=== PATIENT | male | born 1940 | race Caucasian/White ===

== ENCOUNTER 2024-03-14 16:33 | Outpatient (OUT) | payer MEDICARE, OTHER, SELFPAY ==
[2024-03-14 17:23] LABS: Anion Gap 12.3; BUN Creatinine Ratio 18.1; Calcium 8.7 mg/dL (8.5-10.1); Carbon Dioxide 30.3 mmol/L (21.0-32.0); Chloride 106 mmol/L (98-107); Estimated GFR (African America 52 (>=60); Estimated GFR (Non-African Ame 43 (>=60); Glucose 116 mg/dL (74-106); Potassium 4.6 mmol/L (3.5-5.1); Sodium 144 mmol/L (136-145)
== END 2024-03-14 16:34 | disposition home or self-care (01) ==
PROVIDERS: PCP Family Medicine; Visit Provider Family Medicine
DX: I50.9 Heart failure, unspecified (principal)
CPT/HCPCS: 36415; 80048

== ENCOUNTER 2024-04-13 14:31 | Outpatient (OUT) | payer MEDICARE, OTHER, SELFPAY ==
[2024-04-13 16:13] LABS: Anion Gap 10.4; BUN Creatinine Ratio 20.6; Calcium 9.2 mg/dL (8.5-10.1); Carbon Dioxide 31.9 mmol/L (21.0-32.0); Chloride 105 mmol/L (98-107); Estimated GFR (African America 52 (>=60); Estimated GFR (Non-African Ame 43 (>=60); Glucose 129 mg/dL (74-106); Potassium 4.3 mmol/L (3.5-5.1); Sodium 143 mmol/L (136-145)
== END 2024-04-13 14:32 | disposition home or self-care (01) ==
PROVIDERS: PCP Family Medicine; Visit Provider Nurse Practitioner
DX: I25.5 Ischemic cardiomyopathy (principal)
CPT/HCPCS: 36415; 80048

== ENCOUNTER 2024-04-25 15:25 | Outpatient (OUT) | payer MEDICARE, OTHER, SELFPAY ==
[2024-04-25 17:37] LABS: Prostate Specific Antigen Dx 1.49 ng/mL (<=4.00)
== END 2024-04-25 15:26 | disposition home or self-care (01) ==
LOC: LAB 15:26
PROVIDERS: PCP Family Medicine; Visit Provider Nurse Practitioner Family
DX: R10.9 Unspecified abdominal pain (principal); Z85.46 Personal history of malignant neoplasm of prostate; Z87.442 Personal history of urinary calculi
CPT/HCPCS: 36415; 84153

== ENCOUNTER 2024-05-03 09:32 | Outpatient (OUT) | payer MEDICARE, OTHER, SELFPAY ==
--- NOTE | 2024-05-03 09:36 | US_ITS ---
The [place] [id number] Patient Name: YOANA IBRAHIM MRN: [id number] date: 1940 Sex: M Assigned Patient Location: US Current Patient Location: US Accession/Order Number: [id number] Exam Date: 05/03/2024 09:40 Report Date: 05/04/2024 06:33 At the request of: ASHLEY MENDEZ Procedure: US renal BI EXAMINATION: US renal BI HISTORY: Flank Pain , History Of Kidney Stone COMPARISON: XR abdomen 05/03/2024 TECHNIQUE: Ultrasound examination was performed of the kidneys and urinary bladder. FINDINGS: RIGHT KIDNEY: Inferior pole 1.3 cm cyst. Mild cortical thinning. No evidence of pelvocaliectasis, mass, or calculi. Normal parenchymal echogenicity. Color Doppler demonstrates blood flow within the kidney. Kidney: 10.7 x 5.1 x 6.3 cm LEFT KIDNEY: Inferior pole 1.0 cm cyst. Nonobstructing 3 mm stone. Mild cortical thinning. Normal parenchymal echogenicity. Color Doppler demonstrates blood flow within the kidney. Kidney: 10.4 x 4.4 x 4.6 cm BLADDER: No visible wall thickening, mass, or calculi. Calcifications noted within prostate. US/US renal BI IMPRESSION: 1. Nonobstructing left nephrolithiasis. 2. Mild renal cortical thinning bilaterally; likely age related. Electronically authenticated by: FABIANO ANDRES Date: 05/04/2024 06:33
--- NOTE | 2024-05-03 09:36 | XR_ITS ---
The [address] [address] Patient Name: YOANA IBRAHIM MRN: [id number] date: 1940 Sex: M Assigned Patient Location: US Current Patient Location: Accession/Order Number: [id number] Exam Date: 05/03/2024 09:46 Report Date: 05/04/2024 06:22 At the request of: ASHLEY MENDEZ Procedure: XR abdomen 1V EXAMINATION: XR abdomen 1V HISTORY: Flank Pain COMPARISON: XR abdomen and chest 09/14/2016 FINDINGS: KIDNEY/URETER - RIGHT: No visible renal or ureteral calcifications. KIDNEY/URETER - LEFT: No visible renal or ureteral calcifications. PELVIS: 4 mm calcification at inferior margin of right sacroiliac joint which may represent a distal ureteral stone. BOWEL: No abnormal dilation or deviation. BONES: No acute abnormality. OTHER: Right sacral neurostimulator. XR/XR abdomen 1V IMPRESSION: 1. Possible distal right ureteral stone; new since 2016. 2. No appreciable stones within the kidneys but evaluation is limited by dense overlying bowel content. Electronically authenticated by: FABIANO ANDRES Date: 05/04/2024 06:22
--- OUTSIDE RECORDS SUMMARY | 2024-05-03 09:45 | XMS_ITS | CCD ---
Author Organization [facility] Care Team Providers Care Title Clerk Name Role Phone FABIANO WILL Unavailable Unavailable BRISTOL, SHANIQUE E Unavailable Unavailable [place], Shanique E Primary Care Provider [phone] RAÚL QUINTERO Referring Unavailable BRISTOL, SHANIQUE E Primary Care Unavailable RAÚL QUINTERO Admitting Unavailable RAÚL QUINTERO Attending Unavailable Ryder Pollack Unavailable Glenda Guillen Unavailable Abdon Jackman Unavailable Osvaldo Maciel Unavailable Alexei Van Unavailable JUSTIN, DR BAY Primary Care Unavailable VIKY ROLLINS Attending Unavailable VIKY ROLLINS Admitting Unavailable ALEXEI VAN Consulting Unavailable MISC, DR BETTS Attending Unavailable MISC, DR BETTS Admitting Unavailable JUSTIN, DR BAY Primary Care Unavailable ALEXEI VAN Attending Unavailable ALEXEI VAN Consulting Unavailable ALEXEI VAN Admitting Unavailable JUSTIN, DR BAY Primary Care Unavailable ALBIN BABIN Attending Unavailable ALBIN BABIN Admitting Unavailable JUSTIN, DR BAY Primary Care Unavailable JUSTIN, DR BAY Primary Care Unavailable VIKY ROLLINS Attending Unavailable VIKY ROLLINS Admitting Unavailable ALBIN BABIN Admitting Unavailable JUSTIN, DR BAY Primary Care Unavailable ALBIN BABIN Attending Unavailable DO Shanique Schwab Primary Care Provider DO Shanique Schwab Attending Provider Shanique Schwab DO Primary Care Prov ider DO Shanique Schwab Primary Care Provider MD Rosemary Cartagena Attending Provider [phone] OSIEL ROSEMARY Referring Unavailable BRISTOL, SHANIQUE SHRADDHA TERESO Primary Care Unav ailable [place], DO Shanique Primary Care Provider MD Rosemary Cartagena Attending Provider ROBERT Rollins Attending Provider [phone] MARISEL Heart Other Provider VIKY ROLLINS Attending Unavailable VIKY ROLLINS Attending Unavailable [place], DO Shanique Primary Care Provider MD Rosemary Cartagena Attending Provider Sarah Cartagenaa Attending Unavailable Cartagena, Rosemary Admitting Unavailable [place], [place] Primary Care Unavailable Saarh Cartagenaa Attending Unavailable [place], [place] Primary Care Unavailable Cartagena, Rosemary Admitting Unavailable Sarah Cartagenaa Attending Unavailable [place], Shanique Primary Care Unavailable Osiel, Rosemary Admitting Unavailable Sarah Cartagenaa Attending Unavailable [place], [place] Primary Care Unavailable Cartagena, Rosemary Admitting Unavailable Mayank Rollinsa Admitting Unavailable Viky Rollins Attending Unavailable Sly Hosea K Consulting Unavailable [place], [place] Primary Care Unavailable SARAH CARTAGENAA Attending Unavailable BRISTOL, SHANIQUE SHRADDHA TERESO Primary Care Unav ailable SARAH CARTAGENAA Attending Unavailable CARTAGENA, ROSEMARY Referring Unavailable BRISTOL, SHANIQUE SHRADDHA TERESO Primary Care Unav ailable HEART, HOSEA K Attending Unavailable CARTAGENA, ROSEMARY Referring Unavailable BRISTOL, SHANIQUE SHRADDHA TERESO Primary Care Unav ailable HEART, HOSEA K Attending Unavailable HEART, HOSEA K Referring Unavailable BRISTOL, SHANIQUE SHRADDHA TERESO Primary Care Unav ailable HEART, HOSEA K Attending Unavailable HEART, HOSEA K Referring Unavailable BRISTOL, SHANIQUE SHRADDHA TERESO Primary Care Unav ailable SARAH CARTAGENAA Attending Unavailable CARTAGENA, ROSEMARY Referring Unavailable BRISTOL, SHANIQUE SHRADDHA TERESO Primary Care Unav ailable BRISTOL, SHANIQUE Primary Care Physician [phone] ROBERT TANNER Attending Unavailab Anabel Dunaway Attending Unavailable Unavailable Unavailable Unavailable Allergies Allergy Classification Reported Allergen(s) Allergy Type Date of Onset Reaction(s) Facility canagliflozin (2 sources) canagliflozin Drug Allergy 04-01-20 23 Unknown Reaction [facility] exenatide (2 sources) exenatide Drug Allergy 04-01-20 23 Unknown Reaction [facility] fexofenadine (2 sources) fexofenadine Drug Allergy 04-01-20 23 Hives [facility] liraglutide (2 sources) liraglutide Drug Allergy 04-01-20 23 Unknown Reaction [facility] NSAIDs (2 sources) Ibuprofen Drug Allergy 04-01-20 23 Unknown Reaction [facility] Opioid Agonists (6 sources) Codeine Drug Allergy 08-28-20 21 Hallucinating, Sweat [facility] rOPINIRole (2 sources) rOPINIRole Drug Allergy 04-01-20 23 Unknown Reaction [facility] SITagliptin (2 sources) SITagliptin Drug Allergy 04-01-20 23 Unknown Reaction [facility] (1 source) Acetaminophen / oxyCODONE Drug Allergy 07-27-20 16 Other (See Comments) [place] (16 sources) Codeine; Translations: [CODEINE] Drug Allergy 02-04-20 12 Other (See Comments), Unknown, Unknown (qualifier value) [place] (20 sources) exenatide; Translations: [EXENATIDE] Drug Allergy 04-08-20 16 Unknown, Unknown (qualifier value) [place] (7 sources) fexofenadine; Translations: [fexofenadine] Drug Allergy 02-04-20 12 Itching, Unknown, Unknown (qualifier value) [place] (1 source) fexofenadine Drug Allergy 07-27-20 16 Itching [place] (15 sources) Ibuprofen Drug Allergy 04-04-20 18 Unknown Reaction, Unknown [place] (20 sources) liraglutide; Translations: [LIRAGLUTIDE] Drug Allergy 12-03-19 17 Unknown, Unknown (qualifier value) [place] (3 sources) Meperidine; Translations: [Demerol] Drug Allergy 02-04-20 12 Swelling, Bilateral upper limb edema [place] (6 sources) SITagliptin Drug Allergy 05-06-20 15 Unknown Reaction [place] (1 source) Other Propensity to adverse reactions 05-06-20 15 Itching [facility], [place] (9 sources) fexofenadine; Translations: [FEXOFENADINE] Drug Allergy 08-28-20 Hives [facility] (20 sources) Meperidine; Translations: [meperidine] Drug Allergy 08-28-20 Unknown [facility] (7 sources) Morphine; Translations: [morphine] Drug Allergy 08-28-20 Hallucinating [facility] (20 sources) canagliflozin; Translations: [CANAGLIFLOZIN] Drug Allergy 08-28-20 Unknown [facility] (20 sources) Codeine Drug Allergy Unknown [facility] [place] Other (20 sources) fexofenadine; Translations: [Hermila] Drug Allergy 06-12-20 Unknown [facility] Repository (15 sources) Ibuprofen Drug Allergy Unknown [facility] [place] Other (20 sources) rOPINIRole Drug Allergy Unknown [facility] [place] Other (20 sources) SITagliptin Drug Allergy Unknown [facility] [place] Other (1 source) Codeine Drug Allergy 06-12-20 15 [facility] Rep[facility] (2 sources) exenatide Drug Allergy [facility] (2 sources) liraglutide Drug Allergy [facility] Rep[facility] (1 source) SITagliptin Drug Allergy 08-24-20 15 [facility] Rep[facility] (6 sources) rOPINIRole; Translations: [ropinirole] Drug Allergy 08-28-20 Unknown Reaction [facility] (1 source) canagliflozin Drug Allergy 04-01-20 [facility] Repository (1 source) Codeine Drug Allergy 04-01-20 [facility] Repository (1 source) exenatide Drug Allergy 04-01-20 [facility] Rep[facility] (1 source) Ibuprofen Drug Allergy 04-01-20 [facility] Rep[facility] (1 source) liraglutide Drug Allergy 04-01-20 [facility] Rep[facility] (1 source) SITagliptin Drug Allergy 04-01-20 [facility] Repository (1 source) Fish Oils; Translations: [FISH OIL] Drug Allergy 04-24-20 [facility] Rep[facility] (1 source) canagliflozin; Translations: [canagliflozin] Drug Allergy Unknown (qualifier value) [facility] Medications Current Medications Medication Drug Class(es) Dates Sig (Normalized) Sig (Original) acetaminophen 500 mg oral tablet (20 sources) Start: 09-11-2021 take 500 mg by mouth twice daily Acetaminophen Active 500 MG PO Twice daily 60 September 11, 2021 1:00am Start: 06-12-2019 take 650 mg by mouth every four hours as needed for pain, then take 4000 mg by mouth every twenty-four hours as needed for pain 650 mg, Oral, EVERY 4 HOURS PRN, Pain Mild (1-3), Fever, Fever >100.5 F (38 C), Starting 06/12/19 at 1457 Maximum dose of acetaminophen is 4000 mg from all sources in 24 hours. Recovery(Cath) Start: 03-07-2019 take 325 mg by mouth every six hours Acetaminophen Active 325 MG Oral Q6H March 07, 2019 6:55pm Start: 03-07-2019 End: 09-11-2021 Acetaminophen (Tylenol) 325 mg Capsule Discontinued 500 MG PO Twice daily March 07, 2019 12:00am September 11, 2021 10:18am take 1 capsule by mo ut twice daily as needed Acetaminophen 500 MG 1 capsule as needed Orally twice daily Not-Taking take 1 capsule by mo uth twice daily as needed Acetaminophen 500 MG 1 capsule as needed Orally twice daily Not-Taking take 1 tablet by daly th every eight hours as needed for pain acetaminophen (TYLENOL) 500 MG tablet Take 500 mg by mouth every 8 hours as needed for Pain 0 Active Alpha Lipoic Acid (1 source) Start: 04-25-2024 take 2 tablets by mouth once daily Alpha Lipoic Acid = 2 tab(s), Oral, Daily, Refills(s) 0 Start Date: 04/25/24 Status: Ordered amoxicillin 875 mg / clavulanate 125 mg oral tablet (4 sources) Penicillin-class Antibacterial Start: 07-21-2021 take 1 tablet by mouth every twelve hours Amoxicillin-Pot Clavulanate 875-125 MG 1 tablet Orally every 12 hrs for 10 day(s) Jul, Active amylase 77326 unt / lipase 40622 unt / protease 19110 unt delayed release oral capsule (15 sources) Start: 04-25-2024 take 1 capsule by mouth three times daily Creon 12,000 units oral delayed release capsule = 1 cap(s), Oral, TID, Refills(s) 0 Start Date: 04/25/24 Status: Ordered Start: 03-19-2021 End: 04-03-2024 take 3 capsules by mouth three times daily at mealtime, then take 2 capsules by mouth twice daily Hoiwwr-Mojagkhq-Bioipiq (Creon) 3,000-9,500- 15,000 unit capsule,delayed release(DR/EC) Active 0 PO As Directed April 03, 2024 11:34am 3 capsules with meals three times a day, 2 capsules with snacks twice a day orally as directed; Start: 04-08-2016 take 2 capsules by m outh three times daily at mealtime Creon 36,000-114,000- 180,000 unit capsule,delayed release(DR/EC) capsule Take 2 capsules by mouth 3 times a day with meals. 04/08/2016 Active amylases 44079 unt / endopeptidases 9500 unt / lipase 3000 unt delayed release oral capsule (1 source) Start: 06-12-2019 take 2 capsules by mouth three times daily at mealtime 2 capsule, Oral, 3 TIMES DAILY WITH MEALS, First dose on Wed06/12/19 at 1700 Patient may take home supply. apixaban 5 mg oral tablet (20 sources) Factor Xa Inhibitor Start: 12-09-2018 End: 12-05-2024 take 1 tablet by mouth twice daily apixaban 5 mg oral tablet 5 mg = 1 tab(s), Oral, BID, Refills(s) 0 Start Date: 04/25/24 Status: Ordered take 2 tablets by mouth once cheng ly Eliquis 5 MG as directed Orally 2 tablets once daily Active Biotin (1 source) take 36340 [IU] by mouth twice daily BIOTIN PO Take 10,000 Units by mouth 2 times daily 0 Active calcium carbonate 1250 mg / cholecalciferol 200 unt oral tablet (4 sources) Vitamin D Start: 04-25-2024 take 1 tablet by mouth twice daily calcium (as carbonate)-vitamin D 500 mg-200 intl units oral tablet 1 tab(s), Oral, BID, Refill(s) 0 Start Date: 04/25/24 Status: Ordered Start: 06-12-2019 take 1 tablet by daly twice daily at mealtime 1 tablet, Oral, 2 TIMES DAILY WITH MEALS, First dose on 06/12/19 at 1700 Patient may take home supply. Start: 03-07-2019 take 1 tablet by mouth at [facility] Calcium Carbonate-Vitamin D3 Active 1 TAB Oral With lunch and supper March 07, 2019 6:55pm Calcium Carbonate-Vitamin D3 (Oyster Shell Calcium-Vit D3) 500 mg-5 mcg (200 unit) Tablet (7 sources) Start: 09-11-2021 take 2 tablets by mouth once daily Calcium Carbonate-Vitamin D3 (Oyster Shell Calcium-Vit D3) 500 mg-5 mcg (200 unit) Tablet Active 2 TAB PO Daily 60 September 11, 2021 12:00am Start: 09-11-2021 take 2 tablets by mo mih once daily Calcium Carbonate-Vitamin D3 (Oyster Shell Calcium-Vit D3) 500 mg-5 mcg (200 unit) Tablet Active 2 TAB PO Daily 60 September 11, 2021 1:00am CALCIUM CARBONATE-VITAMIN D3 ORAL (6 sources) take 1 capsule by mouth once daily CALCIUM CARBONATE-VITAMIN D3 ORAL Take 1 capsule by mouth once daily. Active take 1 capsule by mouth once cheng ly CALCIUM CARBONATE-VITAMIN D3 ORAL Take 1 capsule by mouth once daily. 0 Active Calcium-Vitamin D 500-125 MG-UNIT (20 sources) take 2 tablets by mouth once daily Calcium-Vitamin D 500-125 MG-UNIT 2 tablets Orally once daily Active carbidopa 10 mg / levodopa 100 mg disintegrating oral tablet (20 sources) Aromatic Amino Acid Decarboxylation Inhibitor, Aromatic Amino Acid Start: 024 carbidopa-levodopa 10 mg-100 mg oral tablet, disintegrating 1 tab(s), Oral, Refill(s) 0 Start Date: 04/25/24 Status: Ordered Start: 09-02-2021 End: 09-11-2021 take 0.5 tablet by mouth twice daily Carbidopa-Levodopa Active 0.5 TAB PO Twice daily September 11, 2021 1:00am take 0.5 tablet by m outh three times daily carbidopa-levodopa (Sinemet) 10-100 mg tablet Take 0.5 tablets by mouth 3 times a day. Active Carbidopa-Levodo pa 10-100 MG 1/2 tablets Orally morning and night Active carboxymethylcellulose sodiu m 5 mg/ml ophthalmic solution (16 sources) Start: 06-12-2019 1 drop, Both E yes, 3 TIMES DAILY, First dose on Wed06/12/19 at 1515 Patient may take home supply. Start: 03-07-2019 take 1 drop(s) into the eye(s) once daily in the morning Carboxymethylcellulose Sodium Active 2 DROPS Ophthalmic Every morning March 07, 2019 6:55pm both eyes Start: 03-07-2019 take 1 drop(s) into the eye(s) once daily in the morning Carboxymethylcellulose Sodium Active 2 DROPS OPHTHALMIC Every morning March 06, 2019 11:00pm both eyes Start: 03-07-2019 take 1 drop(s) into the eye(s) once daily in the morning Carboxymethylcellulose Sodium Active 2 DROPS OPHTHALMIC Every morning March 07, 2019 12:00am both eyes carboxymethylcel lulose (Refresh Tears) 0.5 % ophthalmic solution Administer 1 drop into both eyes if needed. Active take 1 drop(s) into the eye(s) three times daily carboxymethylcellulose (REFRESH PLUS) 0. 5 % SOLN ophthalmic solution 1 drop 3 times daily 0 Active carvedilol 3.125 mg oral tablet (20 sources) alpha-Adrenergic [place], beta-Adrenergic [place] Start: 11-15-2023 End: 12-05-2024 take 1 tablet by mouth twice daily carvedilol 3.125 mg Tab 3.125 mg = 1 tab(s), Oral, BID, Refills(s) 0 Start Date: 04/25/24 Status: Ordered Start: 02-12-2023 take 1 tablet by daly th twice daily at mealtime carvedilol (Coreg) 3.125 mg tablet Take 1 tablet (3.125 mg) by mouth 2 times a day with meals. 0 02/12/2023 Active Start: 09-11-2021 take 6.25 mg by mout h twice daily at mealtime Carvedilol Active 6.25 MG PO Twice daily with meals 60 September 11, 2021 1:00am Start: 09-04-2021 End: 09-11-2021 take 3.125 mg by mouth twice daily at mealtime Carvedilol Discontinued 3.125 MG PO Twice daily with meals 0 September 04, 2021 1:00am September 11, 2021 10:18am Cholecalciferol (20 sources) Vitamin D Start: 04-25-2024 cholecalcifero l 25 mcg, Chewed, Daily, Refills(s) 0 Start Date: 04/25/24 Status: Ordered Start: 09-11-2021 take 75 ug by mouth once daily Cholecalciferol (Vitamin D3) Active 75 MCG PO Daily with supper September 11, 2021 1:00am Start: 03-07-2019 take 3000 [IU] by [facility] once daily Cholecalciferol (Vitamin D3) Active 3000 UNIT Oral Daily with supper March 07, 2019 6:55pm Start: 03-07-2019 End: 09-11-2021 take 3 tablets by mouth once daily Cholecalciferol (Vitamin D3) (Vitamin D3) 1,000 unit Tablet Discontinued 3000 UNIT PO Daily with supper March 07, 2019 12:00am September 11, 2021 10:18am take 1 tablet by [facility] once daily cholecalciferol (Vitamin D-3) 5,000 Units tablet Take 1 tablet (5,000 Units) by mouth once daily. Active take 3 tablets by [facility] every twenty-four hours Vitamin D3 25 MCG (1000 UT) 3 tablet Orally Once a day Active clopidogrel 75 mg oral tablet (20 sources) [id number] Platelet Inhibitor Start: 05-07-2015 End: 12-05-2024 take 1 tablet by mouth once daily clopidogrel 75 mg Tab 75 mg = 1 tab(s), Oral, Daily, Refills(s) 0 Start Date: 04/25/24 Status: Ordered Creon 68592 UNIT (20 sources) Creon 44385 UNIT 3 WITH MEALS 2 WITH SNACK Orally three times daily for 90 day(s) Active Creon 91187 UNIT 2 WITH MEALS 1 WITH SNACK Orally three times daily for 30 days Active cyproheptadine hydrochloride 4 mg oral tablet (14 sources) Start: 06-12-2019 take 2 mg by mouth once daily 2 mg, Oral, NIGHTLY, First dose on Wed06/12/19 at 2100 Patient may take home supply. Start: 03-07-2019 take 1 mg by mouth o nce daily at bedtime Cyproheptadine Active MG Oral Daily at bedtime March 07, 2019 6:55pm Start: 03-07-2019 End: 08-28-2021 take 2 mg by mouth once daily at bedtime Cyproheptadine Discontinued 2 MG PO Daily at bedtime March 07, 2019 12:00am August 28, 2021 1:50pm Start: 08-09-2015 take 2 mg by mouth o nce daily, then take 1 tablet by mouth cyproheptadine (PERIACTIN) 4 MG tablet Take 2 mg by mouth nightly Takes one half tablet 6 08/09/2015 Active End: 10-25-2023 take 0.5 tablet by mouth once daily cyproheptadine (Periactin) 4 mg tablet Take 0.5 tablets (2 mg) by mouth once daily. 0 10/25/2023 Discontinued (Therapy completed) DAILY MULTI-VITAMIN ORAL (6 sources) take 1 capsule by mo uth once daily DAILY MULTI-VITAMIN ORAL Take 1 capsule by mouth once daily. Active take 1 capsule by mouth once cheng ly DAILY MULTI-VITAMIN ORAL Take 1 capsule by mouth once daily. 0 Active dextroamphetamine sulfate 30 mg oral tablet (20 sources) Central Nervous System Stimulant take 1 tablet by mouth every twelve hours Dextroamphetamine Sulfate 30 MG 1 tablet in the morning Orally Twice a day Active take 2 tablets by mouth twice da loree Dextroamphetamine Sulfate 20 MG 2 tablets Orally Twice a day Active diazePAM 2 mg oral tablet (20 sources) Benzodiazepine Start: 04-25-2024 take 1 mg by mouth at bedtime diazepam 2 mg Tab 1 mg = 0.5 tab(s), Oral, Bedtime, Refills(s) 0 Start Date: 04/25/24 Status: Ordered Start: 03-04-2023 take 1 mg by mouth e very six hours as needed diazePAM (Valium) 2 mg tablet Take 0.5 tablets (1 mg) by mouth every 6 hours if needed. 03/04/2023 Active Start: 09-11-2021 End: 04-03-2024 take 2 mg by mouth once daily at bedtime Diazepam Active 2 MG PO Daily at bedtime 0 September 11, 2021 1:00am Start: 03-07-2019 take 2 mg by mouth once daily 2 mg, Oral, NIGHTLY, First dose on 06/12/19 at 2100 Patient may take home supply. Start: 03-07-2019 End: 09-11-2021 take 5 mg by mouth once daily at bedtime Diazepam (Valium) 2 mg Tablet Discontinued 5 MG PO Daily at bedtime March 07, 2019 12:00am September 11, 2021 10:18am diazePAM 5 MG as directed Orally once daily at bedtime Active digoxin 0.125 mg oral tablet (13 sources) Cardiac Glycoside Start: 10-25-2023 End: 12-05-2024 take 1 tablet by mouth once daily digoxin (Lanoxin) 125 MCG tablet Indications: 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 Take 1 tablet (125 mcg) by mouth once daily. 90 tablet 3 12/06/2023 12/05/2024 Active Start: 03-07-2019 End: 08-28-2021 take 125 ug by mouth once daily at bedtime Digoxin Discontinued 125 MCG PO Daily at bedtime March 07, 2019 12:00am August 28, 2021 2:19pm End: 06-12-2019 take 1 tablet by mouth once daily digoxin (LANOXIN) 250 MCG tablet Indications: 1/2 tablet Take 250 mcg by mouth daily 0 06/12/2019 Discontinued (LIST CLEANUP) donepezil hydrochloride 5 mg oral tablet (3 sources) Start: 10-18-2023 take 1 tablet by mouth once daily at bedtime donepezil (Aricept) 5 mg tablet Take 1 tablet (5 mg) by mouth once daily at bedtime. 10/18/2023 Active famotidine 20 mg oral tablet (20 sources) Histamine-2 Receptor Antagonist Start: 04-25-2024 take 1 tablet by mouth twice daily famotidine 20 mg Tab 20 mg = 1 tab(s), Oral, BID, # 180 tab(s), Refills(s) 0 Start Date: 04/25/24 Status: Ordered Start: 03-07-2019 take 40 mg by mouth twice mercedes y Famotidine Active 40 MG Oral Twice daily March 07, 2019 6:55pm Start: 03-07-2019 End: 08-28-2021 take 2 tablets by mouth twice daily Famotidine (Pepcid) 20 mg Tablet Discontinued 40 MG PO Twice daily March 07, 2019 12:00am August 28, 2021 2:20pm Start: 01-06-2018 take 1 tablet by daly th twice daily famotidine (Pepcid) 20 mg tablet Take 1 tablet (20 mg) by mouth twice a day. 01/06/2018 Active take 1 tablet by daly th every twenty-four hours Famotidine 20 MG 1 tablet at bedtime as needed Orally Once a day for 90 days Active ferrous sulfate 325 mg delayed release oral tablet (20 sources) Start: 04-25-2024 take 1 tablet by mouth once daily ferrous sulfate 325 mg oral enteric coated tablet 325 mg = 1 tab(s), Oral, Daily, Refills(s) 0 Start Date: 04/25/24 Status: Ordered Start: 09-11-2021 take 324 mg by mouth once mercedes y Ferrous Sulfate Active 324 MG PO Daily September 11, 2021 1:00am Start: 03-07-2019 End: 09-11-2021 take 1 tablet by mouth once daily Ferrous Sulfate (Iron (Ferrous Sulfate)) 325 mg (65 mg iron) Tablet Discontinued 325 MG PO Daily March 07, 2019 12:00am September 11, 2021 10:18am take 325 mg by mouth twice daily FERROUS SULFATE ORAL Take 325 mg by mouth twice a day. Active Ferrous Sulfate 325 (65 Fe) MG as directed Orally Once a day Active take 1 tablet by daly th twice daily Ferrous Sulfate Dried (FERROUS SULFATE CR PO) Take 1 tablet by mouth 2 times daily 0 Active fluticasone propionate 0.05 mg/actuat metered dose nasal spray (14 sources) Corticosteroid Start: 09-05-2021 End: 09-11-2021 Fluticasone Propionate Active 2 SPRAY INTRANASAL Every morning September 11, 2021 1:00am furosemide 20 mg oral tablet (20 sources) Loop Diuretic Start: 12-22-2023 End: 12-21-2024 take 1 tablet by mouth once daily furosemide 20 mg Tab 20 mg = 1 tab(s), Oral, Daily, tab(s), Refills(s) 0 Start Date: 04/25/24 Status: Ordered Start: 09-11-2021 Furosemide Act cyn 20 MG PO Q48H September 11, 2021 1:00am Start: 09-04-2021 End: 09-11-2021 take 1 tablet by mouth every other day Furosemide (Lasix) 20 mg Tablet Discontinued 20 MG PO Q2D September 04, 2021 2:10pm September 11, 2021 10:18am Start: 06-12-2019 End: 12-06-2023 take 20 mg by mouth once daily at lunch 20 mg, Oral, DAILY WITH LUNCH, First dose on Wed06/12/19 at 1515 Patient may take home supply. Start: 03-07-2019 End: 09-04-2021 take 3 tablets by mouth once daily Furosemide (Lasix) 20 mg Tablet Discontinued 20 MG PO Daily March 07, 2019 12:00am September 04, 2021 2:10pm If gained more than 3 pounds in a day. 1000 ml glucose 500 mg/ml injection (3 sources) Start: 06-12-2019 15 g, Oral, [place] N, Low blood sugar, Starting Wed06/12/19 at 1457 If blood glucose less than 50 mg/dL and patient ALERT and TOLERATING PO, give 2 tubes glucose gel. If blood glucose less than 70 mg/dL and patient ALERT and TOLERATING PO, give 1 tube glucose gel. Repeat blood glucose in 15 minutes. If blood glucose is less than 70 mg/dL, repeat treatment and recheck blood glucose in 15 minutes x2 and notify provider. Start: 06-12-2019 12.5 g, Intrav enous, PRN, Low blood sugar, Blood glucose less than 70 mg/dL and patient NOT ALERT or NPO., Starting Wed06/12/19 at 1457 If patient does not respond within 5 minutes, repeat dose x1. Start D5W at 100 mL/hour until ordering provider can be reached. Repeat blood glucose in 15 minutes. If blood glucose is less than 70 mg/dL, repeat treatment and recheck blood glucose in 15 minutes x2. If using Glucostabilizer, dose as instructed per system. Start: 06-12-2019 100 mL/hr, Int ravenous, at 100 mL/hr, PRN, Low blood sugar, Starting Wed06/12/19 at 1457 Start infusion following administration of dextrose 50% or glucagon. icosapent ethyl (20 sources) Start: 04-25-2024 take 4 capsules by m outh twice daily Icosapent Ethyl 1 g oral capsule 4 gm = 4 cap(s), Oral, BID, Refills(s) 0 Start Date: 04/25/24 Status: Ordered Start: 06-12-2019 take 1000 mg by mout h twice daily at mealtime 1,000 mg, Oral, 2 TIMES DAILY WITH MEALS, First dose on Wed06/12/19 at 1700 Patient may take home supply. Start: 03-07-2019 take 2 g by mouth th ree times daily Icosapent Ethyl Active 2 GM Oral Three times daily March 07, 2019 6:55pm Start: 03-07-2019 End: 04-03-2024 Icosapent Ethyl (Vascepa) 1 gram Capsule Discontinued 2 GM PO Twice daily March 07, 2019 12:00am April 03, 2024 11:22am Start: 09-04-2017 take 1 capsule by mo uth twice daily at mealtime VASCEPA 1 g CAPS capsule Take 1 g by mouth 2 times daily (with meals) 0 09/04/2017 Active take 2 capsules by m outh every twelve hours Vascepa 1 GM 2 capsules with meals Orally Twice a day Active Insulin Glargine (20 sources) Insulin Analog Start: 04-25-2024 insulin glargi ne 100 unit(s), Refills(s) 0 Start Date: 04/25/24 Status: Ordered Start: 04-03-2024 Insulin Glargi ne (Lantus Solostar U-100 Insulin) 100 unit/mL (3 mL) insulin pen Active 16 UNIT SUBCUT Every morning April 03, 2024 11:22am Start: 06-13-2019 inject 30 [IU] by rothman bcutaneous injection once daily at breakfast 30 Units, Subcutaneous, DAILY WITH BREAKFAST, First dose on Wed06/13/19 at 0800 Patient may take home supply. Start: 03-07-2019 inject 30 [IU] by rothman bcutaneous injection once daily in the morning Insulin Glargine Active 30 UNITS Subcutaneous Every morning March 07, 2019 6:55pm Start: 03-07-2019 End: 04-03-2024 Insulin Glargine (Lantus Ara ostar U-100 Insulin) 100 unit/mL (3 mL) Insulin Pen Discontinued 26 UNITS SUBCUT Every morning March 07, 2019 12:00am April 03, 2024 11:24am inject 14 [IU] by rothman bcutaneous injection once daily insulin glargine (Lantus) 100 unit/mL (3 mL) pen Inject 14 Units under the skin once daily. Active inject 18 [IU] by rothman bcutaneous injection once daily insulin glargine (Lantus) 100 unit/mL (3 mL) pen Inject 18 Units under the skin once daily. 0 Active inject 26 [IU] by rothman bcutaneous injection once daily Lantus 100 UNIT/ML as directed Subcutaneous 26 units daily Active inject 25 [IU] by rothman bcutaneous injection once daily insulin glargine (Lantus) 100 unit/mL (3 mL) pen Inject 25 Units under the skin once daily. 0 Active inject 26 [IU] by rothman bcutaneous injection once daily Lantus 100 UNIT/ML as directed Subcutaneous 26 units daily Active insulin glargine (LANTUS SOLOSTAR) 100 UNIT/ML injection pen Inject 30 Units into the skin daily (with breakfast) 0 Active insulin lispro 100 unt/ml injectable solution (2 sources) Insulin Analog Start: 06-12-2019 0-6 Units, Subcutaneous, NIG HTLY, First dose on Wed06/12/19 at 2100 If continuous tube feedings/TPN/NPO, give correction dose based on result, no reduction in dose. If eating or bolus tube feeding: Medium Dose Corrective Algorithm Glucose: Dose: If <139 No Insulin 140-199 1 Unit 200-249 2 Units 250-299 3 Units 300-349 4 Units 350-400 5 Units Above 400 6 Units Start: 06-12-2019 0-12 Units, Subcutaneous, 3 TIMES DAILY WITH MEALS, First dose on 06/12/19 at 1700 Medium Dose Corrective Algorithm Glucose: Dose: If <139 No Insulin 140-199 2 Units 200-249 4 Units 250-299 6 Units 300-349 8 Units 350-400 10 Units Above 400 12 Units 3 ml insulin, aspart, human 100 unt/ml pen injector (20 sources) Insulin Analog Start: 03-07-2019 Insulin Aspart U-100 Active 0 UNITS Subcutaneous Before meals and at bedtime March 07, 2019 6:55pm Start: 04-28-2017 NOVOLOG FLEXPE N 100 UNIT/ML injection pen Indications: BS 150-200, 1 Unit+1 Unit, BS 201-250, 2unit-1 Unit, 251-300, 3 unit+1Unit Inject into the skin daily (with breakfast) 0 04/28/2017 Active NovoLOG Active loperamide hydrochloride 2 mg oral tablet (20 sources) Opioid Agonist Start: 04-25-2024 take 2 mg by mouth once daily loperamide 2 mg, Oral, Daily, Refills(s) 0 Start Date: 04/25/24 Status: Ordered Start: 04-03-2024 take 1 capsule by [facility] once as needed Loperamide (Imodium A-D) 2 mg capsule Active 2 MG PO .prn April 03, 2024 12:00am Start: 08-12-2023 take 1 capsule by [facility] once daily loperamide (Imodium) 2 mg capsule Take 1 capsule (2 mg) by mouth once daily. 08/12/2023 Active Start: 08-31-2022 take 1 capsule by mo [facility] every six hours Imodium A-D 2 MG 1 capsule as needed Orally Four times a day for 90 days Aug, Active Start: 06-12-2019 take 2 mg by mouth f our times daily as needed for diarrhea 2 mg, Oral, 4 TIMES DAILY PRN, Diarrhea, Starting Wed06/12/19 at 1457 After each loose stool. Patient may take home supply. Loperamide A-D N ot-Taking Loperamide A-D A ctive loratadine 10 mg oral tablet (20 sources) Start: 04-25-2024 take 1 tablet by mouth once daily loratadine 10 mg Tab 10 mg = 1 tab(s), Oral, Daily, Refills(s) 0 Start Date: 04/25/24 Status: Ordered Start: 03-07-2019 End: 12-22-2023 take 10 mg by mouth once daily Loratadine Active 10 MG PO Daily September 11, 2021 1:00am take 1 capsule by [facility] once daily Loratadine 10 MG CAPS Take 10 mg by mouth daily 0 Active lurasidone hydrochloride 20 mg oral tablet (6 sources) Atypical Antipsychotic take 0.5 tablet by mouth once daily Latuda 20 MG 1/2 tablet Orally Once a day Active magnesium hydroxide 80 mg/ml oral suspension (1 source) Start: 06-12-20 take 30 mL by mouth once daily as needed for constipation 30 mL, Oral, DAILY PRN, Constipation, Starting Wed06/12/19 at 1457, Recovery(Cath) magnesium oxide 420 mg oral tablet (20 sources) Start: 04-25-20 take 420 mg by mouth once daily magnesium oxide 420 mg, Oral, Daily, Refills(s) 0 Start Date: 04/25/24 Status: Ordered Start: 09-11-2021 take 400 mg by mouth once daily at lunch Magnesium Oxide Active 400 MG PO Daily with lunch September 11, 2021 1:00am Start: 03-07-2019 End: 09-11-2021 take 420 mg by mouth once daily at lunch Magnesium Oxide Discontinued 420 MG PO Daily with lunch March 07, 2019 12:00am September 11, 2021 10:18am 24 hr memantine hydrochloride 28 mg extended release oral capsule (20 sources) P-vfaxpo-L-aspartate Receptor Antagonist Start: 04-25-2024 take 1 capsule by mouth once daily memantine 28 mg oral capsule, extended release 28 mg = 1 cap(s), Oral, Daily, Refills(s) 0 Start Date: 04/25/24 Status: Ordered Start: 12-28-2022 take 1 capsule by mo uth once daily memantine (Namenda) 28 mg capsule,sprinkle,ER 24hr Take 1 capsule (28 mg) by mouth once daily. 12/28/2022 Active Start: 06-12-2019 take 28 mg by mouth once daily 28 mg, Oral, NIGHTLY, First dose on Wed06/12/19 at 2100 Patient may take home supply. Start: 03-07-2019 End: 04-18-2019 take 28 mg by mouth once daily in the evening Memantine Discontinued 28 MG PO Every evening March 07, 2019 12:00am April 18, 2019 7:50pm Start: 04-20-2017 memantine (NAM ENDA) 10 MG tablet Take 28 mg by mouth nightly 0 04/20/2017 Active 24 hr metoprolol succinate 25 mg extended release oral tablet (2 sources) beta-Adrenergic [place] Start: 06-12-2019 take 25 mg by mouth once daily 25 mg, Oral, NIGHTLY, First dose on Wed06/12/19 at 2100 Do not crush or chew. Patient may take home supply. midodrine hydrochloride 5 mg oral tablet (2 sources) alpha-Adrenergic Agonist Start: 06-12-2019 5 mg, Oral, 2 TIMES DAILY, First dose on Wed06/12/19 at 1800 Do not give after 1800 or within 4 hrs of bedtime. Patient may take home supply. take 1 tablet by mouth twice cheng ly midodrine (PROAMATINE) 5 MG tablet Take 5 mg by mouth 2 times daily 0 Active Mometasone (2 sources) Corticosteroid Start: 04-25-2024 take 50 ug by inhalation twice daily mometasone 50 mcg, Inhalation, BID, Refills(s) 0 Start Date: 04/25/24 Status: Ordered mometasone (NASO NEX) 50 MCG/ACT nasal spray 2 sprays by Nasal route daily 0 Active Multivitamin preparation (20 sources) Multivitamin - a s directed Orally Once a day Active Multivitamins and Minerals (1 source) Start: 08-13-202 4 Multivitamins and Minerals Daily, Refill(s) 0 Start Date: 04/25/24 Status: Ordered niacin 500 mg oral tablet (8 sources) Nicotinic Acid Start: 9 take 1000 mg by mouth at breakfast Niacin Active 1000 MG Oral With breakfast and lunch March 07, 2019 6:55pm Start: 03-07-2019 End: 03-19-2021 take 2 tablets by mouth at breakfast Niacin (Niacor) 500 mg Tablet Discontinued 1000 MG PO With breakfast and lunch March 07, 2019 12:00am March 19, 2021 7:37am nitroglycerin 0.4 mg sublingual tablet (19 sources) Nitrate Vasodilator Start: 11-10-2023 End: 11-09-2024 nitroglycerin (Nitrostat) 0.4 mg SL tablet Indications: Coronary artery disease involving [place] coronary artery of [place] heart without angina pectoris Place 1 tablet (0.4 mg) under the tongue every 5 minutes if needed for chest pain. May repeat dose every 5 minutes for up to 3 doses total. 100 tablet 11 11/10/2023 11/09/2024 Active Start: 06-12-2019 0.4 mg, [place] gual, EVERY 5 MIN PRN, Chest pain, Starting Wed06/12/[address] 1 tablet under tongue upon chest pain, wait 5 minutes and may repeat up to 3 doses in 15 minutes. Do not crush or break. Patient may take home supply. Nitroglycerin 0. 4 MG as directed Sublingual 1 every 5 mns PRN Not-Taking omeprazole 20 mg oral tablet (6 sources) Proton Pump Inhibitor take 1 tablet by mouth once daily PriLOSEC OTC 20 MG 1 tablet 30 minutes before morning meal Orally Once a day Active 2 ml ondansetron 2 mg/ml injection (1 source) Serotonin-3 Receptor Antagonist Start: 9 4 mg, Intravenous, EVERY 6 HOURS PRN, Nausea, Vomiting, Starting Wed06/12/19 at 1457, Recovery(Cath) Pancrelipase, [id number]-[id number]-Vxol, (CREON PO) (1 source) take 2 capsules by mouth three times daily at mealtime Pancrelipase, [id number], (CREON PO) Take 2 capsules by mouth 3 times daily (with meals) 0 Active PARoxetine hydrochloride 20 mg oral tablet (20 sources) Serotonin Reuptake Inhibitor Start: take 10 mg by mouth once daily paroxetine 20 mg Tab 10 mg = 0.5 tab(s), Oral, Daily, Refills(s) 0 Start Date: 04/25/24 Status: Ordered Start: 03-23-2023 take 1 tablet by daly th once daily in the morning PARoxetine (Paxil) 20 mg tablet Take 1 tablet (20 mg) by mouth once daily in the morning. 03/23/2023 Active Start: 06-12-2019 take 20 mg by mouth once daily 20 mg, Oral, DAILY, First dose on Wed06/12/19 at 1515 Patient may take home supply. Start: 03-07-2019 End: 09-11-2021 take 1 tablet by mouth once daily Paroxetine Hcl (Paxil) 30 mg tablet Discontinued 30 MG PO Daily April 18, 2019 12:00am September 11, 2021 10:18am take 1 tablet by daly th every twenty-four hours PARoxetine HCl 10 MG 1 tablet in the morning Orally Once a day Active take 20 mg by mouth once daily P ARoxetine HCl (PAXIL PO) Take 20 mg by mouth daily 0 Active polyethylene glycol 3350 66105 mg powder for oral solution (20 sources) Osmotic Laxative Start: 09-11-2021 End: 04-03-2024 Polyethylene Glycol 3350 (Miralax) 17 gram powder in packet Active 17 GM PO Twice daily April 03, 2024 11:23am take 17 g by mouth once daily Mi raLax 17 GM/SCOOP as directed Orally Once a day Not-Taking Psyllium (1 source) Start: 04-25-2024 take 6 g by mouth twice daily psyllium oral powder 6 gm, Oral, BID, Refills(s) 0 Start Date: 04/25/24 Status: Ordered 24 hr rivastigmine 0.554 mg/hr transdermal system (20 sources) Start: 04-25-2024 rivastigmine 1 3.3 mg/24 hr transdermal film, extended release = 1 patch(es), Topical, Daily, # 30 patch(es), Refills(s) 0 Start Date: 04/25/24 Status: Ordered Start: 03-07-2019 End: 10-25-2023 apply 1 dose transdermal route once daily 1 patch, Transdermal, Administer over 24 Hours, DAILY, First dose on Wed06/13/19 at 0900 Apply new patch to nonhairy, clean, dry skin on the back, upper arm or chest. Rotate patch sites. Patient may take home supply. Start: 03-07-2019 apply 1 dose transde rmal route every hour, then apply 1 dose transdermal route every twenty-four hours Rivastigmine (Exelon Patch) 13.3 mg/24 hour Patch 24 Hour Active 1 PATCH TRANSDERML Daily March 07, 2019 12:00am apply 1 dose transde rmal route once daily Exelon 13.3 MG/24HR 1 patch to skin Transdermal Once a day Active sacubitril 24 mg / valsartan 26 mg oral tablet (4 sources) Angiotensin 2 Receptor [place] Start: 10-25-2023 End: 12-05-2024 take 1 tablet by mouth twice daily sacubitriL-valsartan (Entresto) 24-26 mg tablet Indications: Ischemic cardiomyopathy Take 1 tablet by mouth 2 times a day. 180 tablet 3 12/06/2023 12/05/2024 Active 3 ml sodium chloride 9 mg/ml injection (3 sources) Start: 06-12-2019 10 mL, Intravenous, EVERY 12 HOURS SCHEDULED (2 times per day), First dose on Wed06/12/19 at 2100, Recovery(Cath) Start: 06-12-2019 take 10 mL intraveno us route once 10 mL, Intravenous, PRN, Line Care, Starting Wed06/12/19 at 1457 After every IV line use Recovery(Cath) Start: 06-12-2019 0.9 % sodium c hloride infusion tamsulosin hydrochloride 0.4 mg oral capsule (20 sources) alpha-Adrenergic [place] Start: 04-25-2024 take 1 capsule by mouth at bedtime tamsulosin 0.4 mg Cap 0.4 mg = 1 cap(s), Oral, Bedtime, Refills(s) 0 Start Date: 04/25/24 Status: Ordered Start: 06-03-2018 End: 09-11-2021 take 1 capsule by mouth once daily Tamsulosin (Flomax) 0.4 mg Capsule Discontinued 0.4 MG PO Daily March 07, 2019 12:00am September 11, 2021 10:18am Start: 06-03-2018 take 0.4 mg by mouth twice daily at bedtime Tamsulosin Active 0.4 MG Oral Twice daily morning & bedtime March 07, 2019 6:55pm therapeutic multivitamin-minerals (THERAGRAN-M) tablet (1 source) take 1 tablet by mouth once daily therapeutic multivitamin-minerals (THERAGRAN-M) tablet Take 1 tablet by mouth daily. 0 Active therapeutic multivitamin-minerals 1 tablet (1 source) Start: 2018 take 1 tablet by mouth once daily 1 tablet, Oral, DAILY, First dose on Wed06/12/19 at 1515 Patient may take home supply. traZODone hydrochloride 50 mg oral tablet (1 source) Serotonin Reuptake Inhibitor Start: 2023 take 50 mg by mouth once daily Trazodone Active 50 MG PO Daily April 03, 2024 12:00am Vitamin D (2 sources) Start: 2018 take 3000 [IU] by mouth once daily at dinner 3,000 Units, Oral, DAILY WITH DINNER, First dose on Wed06/12/19 at 1730 Patient may take home supply. take 3 tablets by [facility] once daily, then take 1 tablet by mouth vitamin D (CHOLECALCIFEROL) 1000 UNIT TA BS tablet Take 3,000 Units by mouth Daily with supper 0 Active Vitamin D3 [id number] UNIT/GM (6 sources) Vitamin D3 06006 0 UNIT/GM as directed Orally Once a day Active Vitamin D3 25 MCG (1000 UT) (8 sources) take 3 tablets by [facility] once daily Vitamin D3 25 MCG (1000 UT) 3 tablet Orally Once a day Active Completed/Discontinued Medications Medication Drug Class(es) Dates Sig (Normalized) Sig (Original) amphetamine aspartate 5 mg / amphetamine sulfate 5 mg / dextroamphetamine saccharate 5 mg / dextroamphetamine sulfate 5 mg oral tablet (20 sources) Central Nervous System Stimulant Start: 09-11-2021 End: 04-03-2024 take 20 mg by mouth twice daily Dextroamphetamine- Amphetamine Discontinued 20 MG PO Twice daily 0 September 11, 2021 April 03, 2024 11:21am Start: 06-12-2019 take 20 mg by mouth twice mercedes y 20 mg, Oral, 2 TIMES DAILY 8&2, First dose on Wed06/12/19 at 1545 Patient may take home supply. Start: 03-07-2019 End: 04-18-2019 take 1 tablet by mouth twice daily Dextroamphetamine-Amphetamine (Adderall) 30 mg Tablet Discontinued 30 MG PO Twice daily March 07, 2019 12:00am April 18, 2019 7:50pm Start: 04-01-2017 End: 09-11-2021 Dextroamphetamine-Amphetamin e (Adderall) 30 mg Tablet Discontinued 20 MG PO Twice daily April 18, 2019 12:00am September 11, 2021 10:18am aspirin 81 mg delayed release oral tablet (15 sources) Platelet Aggregation Inhibitor, Nonsteroidal Anti-inflammatory Drug Start: 03-07-2019 End: 03-19-2021 take 81 mg by mouth once daily Aspirin Discontinued 81 MG PO Daily 0 April 19, 2019 12:00am March 19, 2021 7:35am Calcium Carbonate-Vitam in D3 (Calcium 500 + D) 500 mg(1,250mg) -200 unit Tablet (7 sources) Start: 03-07-2019 End: 09-11-2021 Calcium Carbonate-Vitamin D3 (Calcium 500 + D) 500 mg(1,250mg) -200 unit Tablet Discontinued 2 TAB PO Daily March 06, 2019 11:00pm September 11, 2021 9:18am Start: 03-07-2019 End: 09-11-2021 Calcium Carbonate-Vitamin D3 (Calcium 500 + D) 500 mg(1,250mg) -200 unit Tablet Discontinued 2 TAB PO Daily March 07, 2019 12:00am September 11, 2021 10:18am docusate sodium 100 mg oral capsule (1 source) Start: 12-03-2017 End: 06-12-2019 take 1 capsule by mouth twice daily as needed for constipation docusate sodium (COLACE) 100 MG capsule Take 1 capsule by mouth 2 times daily as needed for Constipation 60 capsule 0 12/03/2017 06/12/2019 Discontinued (LIST CLEANUP) doxepin hydrochloride 25 mg oral capsule (16 sources) Tricyclic Antidepressant Start: 05-01-2017 End: 08-28-2021 take 25 mg by mouth once daily at bedtime Doxepin Discontinued 25 MG PO Daily at bedtime April 18, 2019 12:00am August 28, 2021 1:52pm gemfibrozil 600 mg oral tablet (20 sources) Peroxisome Proliferator Receptor alpha Agonist Start: 03-07-2019 End: 08-28-2021 take 1 tablet by mouth twice daily Gemfibrozil (Lopid) 600 mg Tablet Discontinued 600 MG PO Twice daily March 07, 2019 12:00am August 28, 2021 1:55pm glucagon (rdna) 1 mg injection (18 sources) Antihypoglycemic Agent Start: 03-07-2019 End: 08-28-2021 inject 1 mg by intramuscular injection once Glucagon (Human Recombinant) (Glucagon Emergency Kit (Human)) 1 mg Recon Soln Discontinued 1 MG IM Once March 07, 2019 12:00am August 28, 2021 2:19pm Insulin Aspart U-100 (Novolog Flexpen U-100 Insulin) 100 unit/mL (3 mL) Insulin Pen (7 sources) Start: 03-07-2019 End: 08-28-2021 Insulin Aspart U-100 (Novolog Flexpen U-100 Insulin) 100 unit/mL (3 mL) Insulin Pen Discontinued 0 UNITS SUBCUT Before meals and at bedtime March 06, 2019 11:00pm August 28, 2021 1:19pm Start: 03-07-2019 End: 08-28-2021 Insulin Aspart U-100 (Novolo g Flexpen U-100 Insulin) 100 unit/mL (3 mL) Insulin Pen Discontinued 0 UNITS SUBCUT Before meals and at bedtime March 07, 2019 12:00am August 28, 2021 2:19pm lisinopril 5 mg oral tablet (20 sources) Angiotensin Converting Enzyme Inhibitor Start: 03-07-2019 End: 08-28-2021 take 2.5 mg by mouth once daily at bedtime Lisinopril Discontinued 2.5 MG PO Daily at bedtime March 07, 2019 12:00am August 28, 2021 2:19pm take 1 tablet by daly every twenty-four hours Lisinopril 5 MG 1 tablet Orally Once a day Active End: 06-12-2019 take 2.5 mg by mouth once daily lisinopril (PRINIVIL;Z ESTRIL) 5 MG tablet Take 2.5 mg by mouth nightly 0 06/12/2019 Discontinued (LIST CLEANUP) MiraLax 17 GM/SCOOP (1 source) take 17 g by mouth once daily MiraLax 17 GM/SCOOP as directed Orally Once a day Not-Taking Potassium Chloride (20 sources) Start: 04-25-2024 take 1 tablet by mouth once daily Potassium Chloride (Kvn-Pbsu-Qaq 10) 10 mEq oral tablet, extended release 10 mEq = 1 tab(s), Oral, Daily, Refills(s) 0 Start Date: 04/25/24 Status: Ordered Start: 12-22-2023 End: 12-21-2024 take 1 tablet by mouth once daily potassium chloride CR (Klor-Con) 10 mEq ER tablet Indications: Ischemic cardiomyopathy Take 1 tablet (10 mEq) by mouth once daily. Do not crush, chew, or split. 30 tablet 11 12/22/2023 12/21/2024 Active Start: 06-12-2019 10 mEq, Oral, DAILY WITH LUNCH, First dose on 06/12/19 at 1515 Do not crush or break. Patient may take home supply. Start: 03-07-2019 End: 09-11-2021 take 10 mEq by mouth once daily at lunch Potassium Chloride Active 10 MEQ PO Daily with lunch September 11, 2021 1:00am End: 12-06-2023 take 1 capsule by mouth four times daily potassium chloride ER (Micro-K) 10 mEq ER capsule Take 1 capsule (10 mEq) by mouth 4 times a day. 0 12/06/2023 Discontinued (Therapy completed) take 1 tablet by daly th every twelve hours Potassium Chloride ER 10 MEQ 1 tablet with food Orally Twice a day Active Refresh Dry Eye Therapy (15 sources) Refresh Dry Eye Therapy Not-Taking Refresh Dry Eye Therapy Active simethicone 80 mg chewable tablet (10 sources) Start: 03-07-2019 End: 09-11-2021 take 80 mg by mouth after mealtime as needed Simethicone Discontinued 80 MG PO Before meals and at bedtime March 07, 2019 12:00am September 11, 2021 10:18am 80 mg after meals and bedtime as needed. Simethicone-80 80 MG (9 sources) take 1 tablet by mouth four times daily at bedtime as needed Simethicone-80 80 MG 1 tablet after meals and at bedtime as needed Orally Four times a day Not-Taking warfarin sodium 1 mg oral tablet (7 sources) Vitamin K Antagonist Start: 03-07-2019 End: 03-07-2019 Warfarin Discontinued 0 .ROUTE .COMPLEX March 07, 2019 12:00am March 07, 2019 9:14pm As Instructed Problems Active Problems Problem Classification Problem Date Documented Da te Episodic/Chronic Abdominal pain (15 sources) Abdominal pain; Translations: [Flank pain] 04-24-2020 Episodic Acute and unspecified renal failure (1 source) Acute injury of kidney; Translations: [MIGUEL ANGEL (acute kidney injury)] Onset: 10-06-2013 Acute cerebrovascular disease (8 sources) Cerebrovascular accident; Translations: [Cerebral infarction, unspecified] 09-02-2021 Chronic Administrative/social admission (7 sources) Other reduced mobility; Translations: [Impaired mobility and activities of daily living] 09-04-2021 Episodic Anxiety disorders (4 sources) Posttraumatic stress disorder; Translations: [Anxiety] 10-04-2013 Chronic Cancer of prostate (7 sources) Malignant tumor of prostate; Translations: [Malignant neoplasm of prostate] Onset: 07-24-2019 10-25-2023 Chronic Cancer of prostate (11 sources) History of malignant neoplasm of prostate; Translations: [Personal history of malignant neoplasm of prostate] Onset: 04-02-2015 04-02-2015 Episodic Cardiac dysrhythmias (20 sources) Paroxysmal atrial fibrillation; Translations: [Atrial fibrillation] Onset: 12-03-2017 12-03-2017 Chronic Chronic kidney disease (8 sources) Chronic kidney disease; Translations: [Chronic kidney disease, unspecified] 09-04-2021 Chronic Chronic kidney disease (2 sources) Chronic kidney disease; Translations: [Chronic kidney disease, stage 3b (Multi)] Onset: 04-24-2024 Chronic obstructive pulmonary disease and bronchiectasis (2 sources) Chronic obstructive lung disease; Translations: [COPD (chronic obstructive pulmonary disease)] 12-03-2017 Chronic Conduction disorders (20 sources) H/O: cardiac pacemaker in situ; Translations: [Cardiac defibrillator in situ] Onset: 06-12-2019 06-12-2019 Chronic Congestive heart failure; nonhypertensive (17 sources) Congestive heart failure; Translations: [Heart failure, unspecified] Onset: 10-25-2023 09-02-2021 Chronic Coronary atherosclerosis and other heart disease (20 sources) Coronary arteriosclerosis; Translations: [Generalized ischemic myocardial dysfunction] Onset: 08-30-2023 12-03-2017 Chronic Deficiency and other anemia (1 source) Anemia 04-19-2024 Episodic Delirium, dementia, and amnestic and other cognitive disorders (7 sources) Dementia associated with another disease; Translations: [Dementia in other diseases classified elsewhere without behavioral disturbance] Onset: 10-25-2023 10-25-2023 Chronic Diabetes mellitus with complications (6 sources) Diabetes mellitus; Translations: [Other specified diabetes mellitus with other specified complication] Onset: 08-30-2023 08-30-2023 Chronic Diabetes mellitus without complication (20 sources) Type 2 diabetes mellitus; Translations: [Diabetes mellitus without complication] Onset: 12-03-2017 12-03-2017 Chronic Disorders of lipid metabolism (2 sources) Hypercholesterolemia; Translations: [Mixed hyperlipidemia] 04-19-2024 Chronic 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 (9 sources) Hypertensive disorder; Translations: [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] Onset: 10-25-2023 10-25-2023 Chronic Fluid and electrolyte disorders (7 sources) Hypokalemia; Translations: [Hypokalemia] 09-04-2021 Episodic Genitourinary symptoms and ill-defined conditions (3 sources) Urge incontinence of urine; Translations: [Unspecified urinary incontinence] Onset: 04-02-2015 04-02-2015 Chronic Headache; including migraine (1 source) Headache 04-25-2024 Episodic Hyperplasia of prostate (12 sources) Benign prostatic hypertrophy with outflow obstruction; Translations: [Benign prostatic hyperplasia] Onset: 04-02-2015 06-26-2017 Chronic Mood disorders (13 sources) Bipolar affective disorder, currently manic, severe, with psychosis; Translations: [Bipolar disorder, current episode manic severe with psychotic features] Onset: 10-25-2023 10-25-2023 Chronic Nutritional deficiencies (1 source) Vitamin D deficiency Onset: 01-24-2024 04-19-2024 Chronic Osteoarthritis (2 sources) Osteoarthritis; Translations: [Arthritis] Onset: 10-04-2013 04-19-2024 Chronic Osteoporosis (13 sources) Senile osteoporosis; Translations: [Age-related osteoporosis without current pathological fracture] Onset: 07-24-2021 Resolved: 07-24-2021 Chronic Other acquired deformities (12 sources) Lumbar spondylolisthesis; Translations: [Spondylolisthesis, lumbar region] Episodic Other aftercare (20 sources) Long-term current use of anticoagulant; Translations: [USP (current) use of anticoagulants] Onset: 08-30-2023 09-04-2021 Episodic Other aftercare (1 source) Treatment changed; Translations: [Other lobsterman (current) drug therapy] 10-25-2023 Episodic Other and ill-defined heart disease (1 source) Heart disease 04-19-2024 Chronic Other bone disease and musculoskeletal deformities (12 sources) Disorder of bone; Translations: [Other specified disorders of bone density and structure, other site] Episodic Other connective tissue disease (1 source) Presence of right artificial knee joint; Translations: [Presence of right artificial knee joint] Onset: 01-17-2018 Chronic Other connective tissue disease (1 source) History of total knee arthroplasty; Translations: [S/P total knee arthroplasty] Onset: 10-04-2013 12-03-2017 Chronic Other ear and sense organ disorders (1 source) Hearing loss 04-25-2024 Chronic Other ear and sense organ disorders (1 source) Sensorineural hearing loss, bilateral 04-19-2024 Chronic Other gastrointestinal disorders (20 sources) Constipation alternates with diarrhea; Translations: [Other specified symptoms and signs involving the digestive system and abdomen] Episodic Other gastrointestinal disorders (9 sources) Incontinence of feces; Translations: [Full incontinence of feces] Episodic Other gastrointestinal disorders (11 sources) Diarrhea, unspecified; Translations: [DIARRHEA UNSPECIFIED] Onset: 12-15-2021 Resolved: 12-15-2021 Episodic Other gastrointestinal disorders (7 sources) Chronic constipation; Translations: [Other constipation] 09-04-2021 Episodic Other male genital disorders (1 source) Impotence of organic origin; Translations: [Impotence of organic origin] Onset: 04-02-2015 04-02-2015 Chronic Other male genital disorders (1 source) Secondary erectile dysfunction Onset: 04-02-2015 04-19-2024 Chronic Other nervous system disorders (20 sources) Chronic pain; Translations: [Other chronic pain] Chronic Other nervous system disorders (2 sources) Other chronic pain; Translations: [Other chronic pain G89.29] Onset: 06-16-2021 Resolved: 07-03-2021 Chronic Other nervous system disorders (1 source) Narcolepsy with cataplexy; Translations: [NARCOLEPSY WITH CATAPLEXY] Onset: 11-28-2021 Chronic Other non-traumatic joint disorders (1 source) Arthritis of knee; Translations: [Arthritis of knee] Onset: 12-02-2017 12-02-2017 Chronic Other nutritional; endocrine; and metabolic disorders (2 sources) Body mass index 30+ - obesity; Translations: [Body mass index (BMI) 31.0-31.9, adult] Onset: 12-22-2023 12-22-2023 Chronic Other nutritional; endocrine; and metabolic disorders (2 sources) Body mass index (BMI) 31.0-31.9, adult; Translations: [Body mass index (BMI) 31.0-31.9, adult] Onset: 12-22-2023 Chronic Other nutritional; endocrine; and metabolic disorders (3 sources) Overweight in adulthood with body mass index of 25 or more but less than 30; Translations: [Body mass index (BMI) 29.0-29.9, adult] Onset: 12-06-2023 12-06-2023 Episodic Other nutritional; endocrine; and metabolic disorders (1 source) Obese class I; Translations: [Obesity (BMI 30.0-34.9)] Onset: 10-04-2013 Pancreatic disorders (not diabetes) (6 sources) Idiopathic chronic pancreatitis; Translations: [Other chronic pancreatitis] Onset: 10-25-2023 10-25-2023 Chronic Pancreatic disorders (not diabetes) (20 sources) Acute pancreatitis; Translations: [Exocrine pancreatic insufficiency] Onset: 03-11-2022 Resolved: 03-11-2022 Episodic Parkinson`s disease (3 sources) Parkinson's disease; Translations: [Parkinson's disease] Onset: 09-22-2021 09-02-2021 Chronic Merary-; endo-; and myocarditis; cardiomyopathy (except that caused by tuberculosis or sexually transmitted disease) (4 sources) Cardiomyopathy; Translations: [Dilated cardiomyopathy] Onset: 09-02-2023 10-04-2013 Chronic Phlebitis; thrombophlebitis and thromboembolism (20 sources) Acute embolism and thrombosis of left axillary vein; Translations: [Acute embolism and thrombosis of left subclavian vein] Onset: 06-30-2021 Resolved: 08-25-2021 Episodic Residual codes; unclassified (6 sources) Obstructive sleep apnea (adult) (pediatric); Translations: [OBSTRUCTIVE SLEEP APNEA] Onset: 11-26-2021 Chronic Residual codes; unclassified (1 source) Idiopathic hypersomnia with long sleep time; Translations: [IDIO HYPERSOMNIA W/LONG SLEEP TIME] Onset: 11-28-2021 Chronic Residual codes; unclassified (6 sources) Sleep apnea; Translations: [Sleep apnea, unspecified] Onset: 08-30-2023 08-30-2023 Chronic Residual codes; unclassified (4 sources) Sleep apnea, unspecified; Translations: [Sleep apnea, unspecified] Onset: 08-30-2023 Chronic Residual codes; unclassified (6 sources) Obstructive sleep apnea syndrome; Translations: [Obstructive sleep apnea (adult) (pediatric)] Onset: 08-30-2023 10-25-2023 Chronic Screening and history of mental health and substance abuse codes (2 sources) Personal history of nicotine dependence; Translations: [Personal history of nicotine dependence] Onset: 04-24-2024 Episodic Spondylosis; intervertebral disc disorders; other back problems (20 sources) Inflammation of sacroiliac joint; Translations: [Sacroiliitis, not elsewhere classified] Onset: 06-16-2021 Resolved: 09-02-2021 Chronic Spondylosis; intervertebral disc disorders; other back problems (11 sources) Spinal stenosis, lumbar region with neurogenic claudication; Translations: [Spinal stenosis of lumbar region] Onset: 07-24-2021 Resolved: 09-02-2021 Episodic Unclassified (12 sources) Parkinson's disease; Translations: [Parkinson disease] Onset: 08-30-2023 08-30-2023 Chronic Unclassified (6 sources) Permanent atrial fibrillation; Translations: [Permanent atrial fibrillation (CMS/HCC)] Onset: 08-30-2023 Unclassified (1 source) Encounter for adjustment and management of automatic implantable cardiac defibrillator; Translations: [Encounter for adjustment and management of automatic implantable cardiac defibrillator] Onset: 09-02-2023 Unclassified (2 sources) Acute embolism and thrombosis of right peroneal vein; Translations: [Acute embolism and thrombosis of right peroneal vein (CMS/HCC)] Onset: 10-25-2023 Past or Other Problems Problem Classification Problem Date Documented Da te Episodic/Chronic Acute and unspecified renal failure (1 source) Acute renal failure syndrome Onset: 4 04-19-2024 Episodic Acute posthemorrhagic anemia (2 sources) Acute posthemorrhagic anemia; Translations: [Anemia associated with acute blood loss] Onset: Episodic Calculus of urinary tract (2 sources) Kidney stone; Translations: [Calculus of kidney] Onset: 5 04-02-2015 Episodic Coronary atherosclerosis and other heart disease (2 sources) Presence of aortocoronary bypass graft; Translations: [Presence of aortocoronary bypass graft] Onset: 3 Episodic Genitourinary symptoms and ill-defined conditions (2 sources) Increased frequency of urination; Translations: [Olegario hematuria] Onset: 4 04-02-2015 Episodic Malaise and fatigue (14 sources) Weakness; Translations: [Asthenia] Onset: 2 Episodic Other acquired deformities (2 sources) Spondylolisthesis, lumbar region Onset: 1 Resolved: 1 Episodic Other aftercare (2 sources) Other lobsterman (current) drug therapy; Translations: [Other lobsterman (current) drug therapy] Onset: 4 Episodic Other aftercare (2 sources) terminal supervisor (current) use of anticoagulants; Translations: [USP (current) use of anticoagulants] Onset: 3 Episodic Other bone disease and musculoskeletal deformities (1 source) Other specified disorders of bone density and structure, other site Onset: 1 Resolved: 1 Episodic Other bone disease and musculoskeletal deformities (1 source) Osteopenia Onset: 4 04-19-2024 Episodic Other circulatory disease (8 sources) History of cerebrovascular accident; Translations: [Personal history of transient ischemic attack (TIA), and cerebral infarction without residual deficits] Onset: 3 08-30-2023 Episodic Other circulatory disease (2 sources) Personal history of transient ischemic attack (TIA), and cerebral infarction without residual deficits; Translations: [Personal history of transient ischemic attack (TIA), and cerebral infarction without residual deficits] Onset: 3 Episodic Other connective tissue disease (1 source) Pain in leg, unspecified; Translations: [Lower extremity pain M79.606] Onset: 1 Resolved: 1 Episodic Other diseases of kidney and ureters (1 source) Disorder of kidney and/or ureter; Translations: [Disorder of kidney and ureter] Onset: 5 06-13-2015 Episodic Other gastrointestinal disorders (2 sources) Full incontinence of feces; Translations: [FULL INCONTINENCE OF FECES] Onset: 2 Resolved: 2 Episodic Other lower respiratory disease (11 sources) Dyspnea; Translations: [Shortness of breath] Onset: 3 08-30-2023 Episodic Other lower respiratory disease (2 sources) Shortness of breath; Translations: [Shortness of breath] Onset: 3 Episodic Other nutritional; endocrine; and metabolic disorders (2 sources) Body mass index (BMI) 29.0-29.9, adult; Translations: [Body mass index (BMI) 29.0-29.9, adult] Onset: 4 Episodic Other screening for suspected conditions (not mental disorders or infectious disease) (20 sources) Electrocardiogram abnormal; Translations: [Abnormal electrocardiogram [ECG] [EKG]] Onset: 3 09-02-2021 Episodic Unclassified (6 sources) Onset: 3 Resolved: 4 08-30-2023 Results Test Name Value Interpretation Reference Range Facility Physician Referralon 024 Physician Referral [id number] Normal [facility] Basic Metabolic Panelon GFR/1.73 sq M.predicted MDRD (S/P/Bld) [Vol rate/Area] 42.069 mL/min/{1.73_m2} Normal [facility] Comment on above: Performed By: #### B MP #### [address] head/brain wo/w conon CT head/brain wo/w [facility] [place] [address] [place] [address] CT Scan Report Signed Patient: Yoana Ibrahim MR#: [id number] : 1940 Acct:[id number] Age/Sex: 83 / M ADM Date: 02/18/24 Loc: CT Room: Type: [facility] Attending Dr: Viky Rollins PA-C Copies to: Viky Rollins PA-C Ordering Provider: Viky Rollins PA-C Date of Service: 02/18/24 CT/CT head/brain wo/w con: R41.0,I25.5 Enhanced and unenhanced head CT TECHNIQUE: Contiguous axial imaging of the head.90 cc of Isovue-300The CT exam was performed using one or more the following dose reduction techniques: Automated exposure control, adjustment of the MA and/or Kv according to patient size, or use of the iterative reconstruction technique. COMPARISON: 09/02/2021 HISTORY: Confusion. VENTRICLES: Within normal limits ATROPHY: Mild atrophy BRAIN PARENCHYMA: Decreased density of the white matter is most consistent with chronic small vessel disease. Remote right basal ganglia lacunar infarct redemonstrated. HEMORRHAGE: None HERNIATION: No mass effect or herniation INFARCTION: No recent vascular distribution infarction is seen. EXTRA-AXIAL FLUID COLLECTIONS None MIDBRAIN: Unremarkable CRIS: Unremarkable MEDULLA: Unremarkable SINUSES: Unremarkable ORBITS: Grossly unremarkable MASTOIDS: Unremarkable BONY STRUCTURES Intact ADDITIONAL FINDINGS: No pathologic enhancement. CT/CT head/brain wo/w con IMPRESSION: No acute findings. No pathologic enhancement. Impression dictated by: Mo Collier M.D.02/18/2024 4:25 PM Dictation Location: [place] [address] Transcribed By: [facility] 02/18/24 1625 Dictated By: Mo Collier DO 02/18/24 1621 Signed By: 02/18/24 1625 Normal The Count Includes [facility] Calcium [Mass/volume] in Ser um or PlasmaOrdered By: Hosea Heart on 02-18-2024 Calcium [Mass/Vol] 9.6 mg/dL 8.6-10.3 [facility] Comment on above: Result Comment: PERF ORMED BY: [place] [address] PATHOLOGIST [employer] TONEY KWON M.D. Performed By: #### B MP #### [address] Carbon dioxide, total [Moles /volume] in Serum or PlasmaOrdered By: Hosea Heart on 02-18-2024 CO2 [Moles/Vol] 30.8 mmol/L 21.0-31.0 [facility] Comment on above: Performed By: #### B MP #### [address] Chloride [Moles/volume] in S ric or PlasmaOrdered By: Hosea Heart on 02-18-2024 Chloride [Moles/Vol] 103 mmol/L 98-107 [facility] Comment on above: Performed By: #### B MP #### [address] Creatinine [Mass/volume] in Serum or PlasmaOrdered By: Hosea Heart on 02-18-2024 Creatinine [Mass/Vol] 1.63 mg/dL High 0.70-1.30 [facility] Comment on above: Performed By: #### B MP #### [address] Glucose [Mass/volume] in Ser um or PlasmaOrdered By: Hosea Heart on 02-18-2024 Glucose [Mass/Vol] 165 mg/dL High 70-100 [facility] Comment on above: ADA recommended refe rence rangeRandom Glucose Reference Range is dependent on time and content of last meal. Glucose of more than 200 mg/dL in a nonstressed, ambulatory subject supports the diagnosis of Diabetes Mellitus. Result Comment: [place] om Glucose Reference Range is dependent on time and content of last meal. Glucose of more than 200 mg/dL in a nonstressed, ambulatory subject supports the diagnosis of Diabetes Mellitus. ADA recommended reference range Performed By: #### B MP #### [address] No Panel InformationOrdered By: Hosea Heart on 02-18-2024 Estimated GFR (CKD-EPI) 42.069 mL/Min [facility] Creatinine Clearance (Chem N/A [facility] Potassium [Moles/volume] in Serum or PlasmaOrdered By: Hosea Heart on 02-18-2024 Potassium [Moles/Vol] 4.5 mmol/L 3.5-5.1 [facility] Comment on above: Performed By: #### B MP #### [address] Serum or plasma anion gap de terminationOrdered By: Hosea Heart on 02-18-2024 Anion gap [Moles/Vol] 10.7 mmol/L 6.0-15.0 [facility] Comment on above: Performed By: #### B MP #### [address] Sodium [Moles/volume] in Ser um or PlasmaOrdered By: Hosea Heart on 02-18-2024 Sodium [Moles/Vol] 140 mmol/L 136-145 [facility] Comment on above: Performed By: #### B MP #### [address] Urea nitrogen [Mass/volume] in Serum or PlasmaOrdered By: Hosea Heart on 02-18-2024 Urea nitrogen [Mass/Vol] 26 mg/dL High 04-06 [facility] Comment on above: Performed By: #### B MP #### [address] A1C with Estimated Average G darryln 12-03-2023 Glucose [Mass/Vol] 143 mg/dL Normal [facility] Comment on above: Result Comment: PERF ORMED BY: [place] [address] PATHOLOGIST [employer] WORK[employer] TONEY KWON M.D. Performed By: #### A 1C WTH eA, LIPID, T3T, CMP, TSH3, BNP #### [place] [address] [place] Alanine aminotransferase [En zymatic activity/volume] in Serum or PlasmaOrdered By: Rosemary Cartagena on 12-03-2023 ALT [Catalytic activity/Vol] 12 U/L Normal [facility] Comment on above: Performed By: #### T SH3, BNP, T3T, A1C WTH eA, CMP, LIPID #### [place] [address] [place] Albumin [Mass/volume] in Ser um or Plasma by Bromocresol green (BCG) dye binding methoOrdered By: Rosemary Cartagena on 12-03-2023 Albumin BCG dye [Mass/Vol] 4.1 g/dL 3.5-5.7 [facility] Alkaline phosphatase [Enzyma tic activity/volume] in Serum or PlasmaOrdered By: Rosemary Cartagena on 12-03-2023 ALP [Catalytic activity/Vol] 89 U/L Normal 34-104 [facility] Comment on above: Performed By: #### T SH3, BNP, T3T, A1C WTH eA, CMP, LIPID #### [facility] [address] [place] [address] Aspartate aminotransferase [ Enzymatic activity/volume] in Serum or PlasmaOrdered By: Rosemary Cartagena on 12-03-2023 AST [Catalytic activity/Vol] 23 U/L Normal 13-39 [facility] Comment on above: Performed By: #### T SH3, BNP, T3T, A1C WTH eA, CMP, LIPID #### [facility] [address] [place] [address] BNP ser/plasOrdered By: Genet Cartagena on 12-03-2023 Natriuretic peptide B (Bld) [Mass/Vol] 316.0 pg/mL High 5-100 [facility] Comment on above: Result Comment: PERF ORMED BY: [place] [address] PATHOLOGIST [employer] WORK[employer] TONEY KWON M.D. Performed By: #### T SH3, BNP, T3T, A1C WTH eA, CMP, LIPID #### [address] Bilirubin.total [Mass/volume ] in Serum or PlasmaOrdered By: Rosemary Cartagena on 12-03-2023 Bilirubin [Mass/Vol] 0.7 mg/dL Normal 0.3-1.0 [facility] Comment on above: Performed By: #### T SH3, BNP, T3T, A1C WTH eA, CMP, LIPID #### [address] Calcium [Mass/volume] in Ser um or PlasmaOrdered By: Rosemary Cartagena on 12-03-2023 Calcium [Mass/Vol] 9.6 mg/dL Normal 8.6-10.3 [facility] Comment on above: Performed By: #### T SH3, BNP, T3T, A1C WTH eA, CMP, LIPID #### [facility] [address] [place] [address] [place] Carbon dioxide, total [Moles /volume] in Serum or PlasmaOrdered By: Rosemary Cartagena on 12-03-2023 CO2 [Moles/Vol] 34.3 mmol/L High 21.0-31.0 [facility] Comment on above: Performed By: #### T SH3, BNP, T3T, A1C WTH eA, CMP, LIPID #### [facility] [address] [place] [address] [place] Chloride [Moles/volume] in S ric or PlasmaOrdered By: Rosemary Cartagena on 12-03-2023 Chloride [Moles/Vol] 103 mmol/L Normal 98-107 [facility] Comment on above: Performed By: #### T SH3, BNP, T3T, A1C WTH eA, CMP, LIPID #### [facility] [address] [place] [address] [place] Cholesterol [Mass/volume] in Serum or PlasmaOrdered By: Rosemary Cartagena on 12-03-2023 Cholesterol [Mass/Vol] 127 mg/dL Low 140-200 [facility] Comment on above: Chol less than 200 m g/dl low riskChol 201-239 mg/dl borderline riskChol 240 mg/dl and greater high risk Result Comment: Chol less than 200 mg/dl low risk Chol 201-239 mg/dl borderline risk Chol 240 mg/dl and greater high risk Performed By: #### A 1C WTH eA, LIPID, T3T, CMP, TSH3, BNP #### [facility] [address] [place] [address] [place] Cholesterol in LDL Calc [Mas s/Vol]Ordered By: Rosemary Cartagena on 12-03-2023 Cholesterol in LDL [Mass/Vol] 29 mg/dL 0-100 [facility] Comment on above: LDL ATP III CLASSIFI CATIONLDL less than 100 mg/dL OptimalLDL 100-129 mg/dL Near or above optimalLDL 130-159 mg/dL Borderline highLDL 160-189 mg/dL HighLDL greater than 189 mg/dL Very high Cholesterol in VLDL Calc [Ma ss/Vol]Ordered By: Rosemary Cartagena on 12-03-2023 Cholesterol in VLDL [Mass/Vol] 62 mg/dL [facility] Comprehensive Metabolic Pane yobani 12-03-2023 Albumin [Mass/Vol] 4.1 g/dL Normal 3.5-5.7 [facility] Comment on above: Performed By: #### T SH3, BNP, T3T, A1C WTH eA, CMP, LIPID #### [facility] [address] [place] [id number] [place] GFR/1.73 sq M.predicted MDRD (S/P/Bld) [Vol rate/Area] 58.211 mL/min/{1.73_m2} Normal [facility] Comment on above: Performed By: #### T SH3, BNP, T3T, A1C WTH eA, CMP, LIPID #### [facility] [address] [place] [id number] [place] Creatinine [Mass/volume] in Serum or PlasmaOrdered By: Rosemary Cartagena on 12-03-2023 Creatinine [Mass/Vol] 1.25 mg/dL Normal 0.70-1.30 [facility] Comment on above: Performed By: #### T SH3, BNP, T3T, A1C WTH eA, CMP, LIPID #### [facility] [address] [place] [id number] [place] Glucose [Mass/volume] in Ser um or PlasmaOrdered By: Rosemary Cartagena on 12-03-2023 Glucose [Mass/Vol] 155 mg/dL High 70-100 [facility] Comment on above: ADA recommended refe rence rangeRandom Glucose Reference Range is dependent on time and content of last meal. Glucose of more than 200 mg/dL in a nonstressed, ambulatory subject supports the diagnosis of Diabetes Mellitus. Result Comment: [place] om Glucose Reference Range is dependent on time and content of last meal. Glucose of more than 200 mg/dL in a nonstressed, ambulatory subject supports the diagnosis of Diabetes Mellitus. ADA recommended reference range Performed By: #### T SH3, BNP, T3T, A1C WTH eA, CMP, LIPID #### [facility] [address] Glucose mean value [Mass/vol ume] in Blood Estimated from glycated hemoglobinOrdered By: Rosemary Cartagena on 12-03-2023 Average glucose Estimated from glycated hemoglobin (Bld) [Mass/Vol] 143 mg/dL [facility] Hemoglobin A1c percentageOrd ered By: Rosemary Cartagena on 12-03-2023 HbA1c (Bld) [Mass fraction] 6.6 % High 4.3-5.6 [facility] Comment on above: Increased risk for d iabetes: 5.7 - 6.4diabetes: >6.4glycemic control for adults with diabetes: <7.0 Result Comment: Incr eased risk for diabetes: 5.7 - 6.4 diabetes: >6.4 glycemic control for adults with diabetes: <7.0 Performed By: #### A 1C WT eA, LIPID, T3T, CMP, TSH3, BNP #### [facility] [address] Lipid Panelon 12-03-2023 LDL Cholesterol,Calculated 29 mg/dL Normal 0-100 [facility] Comment on above: Result Comment: LDL ATP III CLASSIFICATION LDL less than 100 mg/dL Optimal LDL 100-129 mg/dL Near or above optimal LDL 130-159 mg/dL Borderline high LDL 160-189 mg/dL High LDL greater than 189 mg/dL Very high Performed By: #### A 1C WT eA, LIPID, T3T, CMP, TSH3, BNP #### [facility] [address] Triglyceride w/Reflex 314 mg/dL High 0-149 The Count Includes [facility] Comment on above: Result Comment: TRIG ATP III CLASSIFICATION TRIG less than 150 mg/dL Normal TRIG 150-199 mg/dL Borderline high TRIG 200-500 mg/dL High TRIG greater than 500 mg/dL Very high Standard traceable to the Center for Disease Conrtrol and Prevention (CDC) test method. Performed By: #### A 1C WTH eA, LIPID, T3T, CMP, TSH3, BNP #### [facility] [address] [place] [address] VLDL CHOLESTEROL 62 mg/dL Normal [facility] Comment on above: Performed By: #### A 1C WTH eA, LIPID, T3T, CMP, TSH3, BNP #### [address] No Panel InformationOrdered By: Rosemary Cartagena on 12-03-2023 Estimated GFR (CKD-EPI) 58.211 mL/Min [facility] Creatinine Clearance (Chem N/A [facility] Potassium [Moles/volume] in Serum or PlasmaOrdered By: Rosemary Cartagena on 12-03-2023 Potassium [Moles/Vol] 4.2 mmol/L Normal 3.5-5.1 [facility] Comment on above: Performed By: #### T SH3, BNP, T3T, A1C WTH eA, CMP, LIPID #### [address] Protein [Mass/volume] in Ser um or PlasmaOrdered By: Rosemary Cartagena on 12-03-2023 Protein [Mass/Vol] 6.6 g/dL Normal 6.4-8.9 [facility] Comment on above: Performed By: #### T SH3, BNP, T3T, A1C WTH eA, CMP, LIPID #### [address] Serum globulin measurement b y calculation (mass/volume)Ordered By: Rosemary Cartagena on 12-03-2023 Globulin (S) [Mass/Vol] 2.5 g/dL [facility] Comment on above: Performed By: #### T SH3, BNP, T3T, A1C WTH eA, CMP, LIPID #### [facility] [address] [place] [address] Serum or plasma albumin/glob ulin mass ratioOrdered By: Rosemary Cartagena on 12-03-2023 Albumin/Globulin [Mass ratio] 1.6 {ratio} [facility] Comment on above: Performed By: #### T SH3, BNP, T3T, A1C WTH eA, CMP, LIPID #### [address] [place] [address] [place] Serum or plasma anion gap de terminationOrdered By: Rosemary Cartagena on 12-03-2023 Anion gap [Moles/Vol] 8.9 mmol/L Normal 6.0-15.0 [facility] Comment on above: Performed By: #### T SH3, BNP, T3T, A1C WTH eA, CMP, LIPID #### [facility] [address] [place] [address] Serum or plasma high density lipoprotein (HDL) cholesterol measurementOrdered By: Rosemary Cartagena on 12-03-2023 Cholesterol in HDL [Mass/Vol] 35 mg/dL Normal 23-92 [facility] Comment on above: HDL CHOL ATP-III CLA SSIFICATION Cardiovascular RiskHDL > or equal to 60 mg/dL LOWHDL < 40 mg/dL HIGH Result Comment: HDL CHOL ATP-III CLASSIFICATION Cardiovascular Risk HDL > or equal to 60 mg/dL LOW HDL < 40 mg/dL HIGH Performed By: #### A 1C WTH eA, LIPID, T3T, CMP, TSH3, BNP #### [address] Serum or plasma total choles terol/high density lipoprotein (HDL) cholesterol mass ratOrdered By: Rosemary Cartagena on 12-03-2023 Cholesterol.total/Chol esterol in HDL [Mass ratio] 3.6 {ratio} Normal <5.0 [facility] Comment on above: Performed By: #### A 1C WTH eA, LIPID, T3T, CMP, TSH3, BNP #### [address] Sodium [Moles/volume] in Ser um or PlasmaOrdered By: Rosemary Cartagena on 12-03-2023 Sodium [Moles/Vol] 142 mmol/L Normal 136-145 [facility] Comment on above: Performed By: #### T SH3, BNP, T3T, A1C WTH eA, CMP, LIPID #### [address] Thyrotropin [Units/volume] i n Serum or PlasmaOrdered By: Rosemary Cartagena on 12-03-2023 TSH Qn 3.73 m[IU]/L Normal 0.45-5.33 [facility] Comment on above: Result Comment: PERF ORMED BY: [place] [address] PATHOLOGIST [employer] WORK[employer] TONEY KWON M.D. Performed By: #### A 1C WT eA, LIPID, T3T, CMP, TSH3, BNP #### [address] Triglyceride [Mass/volume] i n Serum or PlasmaOrdered By: Rosemary Cartagena on 12-03-2023 Triglyceride [Mass/Vol] 314 mg/dL 0-149 [facility] Comment on above: TRIG ATP III CLASSIF ICATIONTRIG less than 150 mg/dL NormalTRIG 150-199 mg/dL Borderline highTRIG 200-500 mg/dL High TRIG greater than 500 mg/dL Very highStandard traceable to the Center for Disease Conrtrol and Prevention (CDC) test method. Triiodothyronine (T3) Totalo n 12-03-2023 Triiodothyronine (T3) Total 0.93 ng/mL Normal 0.87-1.78 The Count Includes [facility] Comment on above: Performed By: #### A 1C WTH eA, LIPID, T3T, CMP, TSH3, BNP #### [address] Triiodothyronine (T3) [Mass/ volume] in Serum or PlasmaOrdered By: Rosemary Cartagena on 12-03-2023 T3 [Mass/Vol] 0.93 ng/mL 0.87-1.78 [facility] Urea nitrogen [Mass/volume] in Serum or PlasmaOrdered By: Rosemary Cartagena on 12-03-2023 Urea nitrogen [Mass/Vol] 28 mg/dL High 7-25 [facility] Comment on above: Performed By: #### T SH3, BNP, T3T, A1C WTH eA, CMP, LIPID #### [address] A1C with Estimated Average G luon 09-02-2023 Glucose [Mass/Vol] 148 mg/dL Normal [facility] Comment on above: Result Comment: PERF ORMED BY: [place] [address] PATHOLOGIST [employer] WORKER TONEY KWON M.D. Performed By: #### A 1C WTH eA, LIPID, T3T, CMP, TSH3, BNP #### [place] [address] [place] Alanine aminotransferase [En zymatic activity/volume] in Serum or PlasmaOrdered By: Rosemary Cartagena on 09-02-2023 ALT [Catalytic activity/Vol] 12 U/L Normal 7-52 [facility] Comment on above: Performed By: #### A 1C WTH eA, LIPID, T3T, CMP, TSH3, BNP #### [place] [address] [place] Albumin [Mass/volume] in Ser um or Plasma by Bromocresol green (BCG) dye binding methoOrdered By: Rosemary Cartagena on 09-02-2023 Albumin BCG dye [Mass/Vol] 4.0 g/dL 3.5-5.7 [facility] Alkaline phosphatase [Enzyma tic activity/volume] in Serum or PlasmaOrdered By: Rosemary Cartagena on 09-02-2023 ALP [Catalytic activity/Vol] 74 U/L Normal 34-104 [facility] Comment on above: Performed By: #### A 1C WTH eA, LIPID, T3T, CMP, TSH3, BNP #### [place] [id number] [place] Aspartate aminotransferase [ Enzymatic activity/volume] in Serum or PlasmaOrdered By: Rosemary Cartagena on 09-02-2023 AST [Catalytic activity/Vol] 17 U/L Normal 13-39 [facility] Comment on above: Result Comment: PERF ORMED BY: [place] [address] PATHOLOGIST [employer] WORK[employer] TONEY KWON M.D. Performed By: #### A 1C WTH eA, LIPID, T3T, CMP, TSH3, BNP #### [address] [address] [place] BNP ser/plasOrdered By: Genet Cartagena on 09-02-2023 Natriuretic peptide B (Bld) [Mass/Vol] 229.0 pg/mL High 5-100 [facility] Comment on above: Result Comment: PERF ORMED BY: [place] [address] PATHOLOGIST [employer] WORK[employer] TONEY KWON M.D. Performed By: #### A 1C WTH eA, LIPID, T3T, CMP, TSH3, BNP #### [facility] [address] [place] [address] Bilirubin.total [Mass/volume ] in Serum or PlasmaOrdered By: Rosemary Cartagena on 09-02-2023 Bilirubin [Mass/Vol] 0.6 mg/dL Normal 0.3-1.0 [facility] Comment on above: Performed By: #### A 1C WT eA, LIPID, T3T, CMP, TSH3, BNP #### [facility] [address] [place] [address] Calcium [Mass/volume] in Ser um or PlasmaOrdered By: Rosemary Cartagena on 09-02-2023 Calcium [Mass/Vol] 8.9 mg/dL Normal 8.6-10.3 [facility] Comment on above: Performed By: #### A 1C WTH eA, LIPID, T3T, CMP, TSH3, BNP #### [facility] [address] [place] [address] [place] Carbon dioxide, total [Moles /volume] in Serum or PlasmaOrdered By: Rosemary Cartagena on 09-02-2023 CO2 [Moles/Vol] 30.5 mmol/L Normal 21.0-31.0 [facility] Comment on above: Performed By: #### A 1C WTH eA, LIPID, T3T, CMP, TSH3, BNP #### [facility] [address] [place] [address] [place] Chloride [Moles/volume] in S ric or PlasmaOrdered By: Rosemary Cartagena on 09-02-2023 Chloride [Moles/Vol] 106 mmol/L Normal 98-107 [facility] Comment on above: Performed By: #### A 1C WTH eA, LIPID, T3T, CMP, TSH3, BNP #### [facility] [address] Cholesterol [Mass/volume] in Serum or PlasmaOrdered By: Rosemary Cartagena on 09-02-2023 Cholesterol [Mass/Vol] 139 mg/dL Low 140-200 [facility] Comment on above: Chol less than 200 m g/dl low riskChol 201-239 mg/dl borderline riskChol 240 mg/dl and greater high risk Result Comment: Chol less than 200 mg/dl low risk Chol 201-239 mg/dl borderline risk Chol 240 mg/dl and greater high risk Performed By: #### A 1C WTH eA, LIPID, T3T, CMP, TSH3, BNP #### [facility] [address] Cholesterol in LDL Calc [Mas s/Vol]Ordered By: Rosemary Cartagena on 09-02-2023 Cholesterol in LDL [Mass/Vol] 56 mg/dL 0-100 [facility] Comment on above: LDL ATP III CLASSIFI CATIONLDL less than 100 mg/dL OptimalLDL 100-129 mg/dL Near or above optimalLDL 130-159 mg/dL Borderline highLDL 160-189 mg/dL HighLDL greater than 189 mg/dL Very high Cholesterol in VLDL Calc [Ma ss/Vol]Ordered By: Rosemary Cartagena on 09-02-2023 Cholesterol in VLDL [Mass/Vol] 51 mg/dL [facility] Comprehensive Metabolic Pane yobani 09-02-2023 Albumin [Mass/Vol] 4.0 g/dL Normal 3.5-5.7 [facility] Comment on above: Performed By: #### A 1C WTH eA, LIPID, T3T, CMP, TSH3, BNP #### [facility] [address] Anion gap [Moles/Vol] Not performed Normal 6.0-15.0 The Count Includes [facility] Comment on above: Performed By: #### A 1C WTH eA, LIPID, T3T, CMP, TSH3, BNP #### [facility] [address] Aspartate Amino Transferase Normal 13-39 The Count Includes [facility] Comment on above: Result Comment: Spec imen hemolyzed, redraw requested Performed By: #### A 1C WTH eA, LIPID, T3T, CMP, TSH3, BNP #### [facility] [address] [place] [address] [place] GFR/1.73 sq M.predicted MDRD (S/P/Bld) [Vol rate/Area] mL/min/{1.73_m2} Normal The Count Includes [facility] Comment on above: Performed By: #### A 1C WTH eA, LIPID, T3T, CMP, TSH3, BNP #### [facility] [address] Potassium Normal 3.5-5.1 The Count Includes [facility] Comment on above: Result Comment: Spec imen hemolyzed, redraw requested Performed By: #### A 1C WTH eA, LIPID, T3T, CMP, TSH3, BNP #### [facility] [address] [place] [address] [place] Creatinine [Mass/volume] in Serum or PlasmaOrdered By: Rosemary Cartagena on 09-02-2023 Creatinine [Mass/Vol] 1.10 mg/dL Normal 0.70-1.30 [facility] Comment on above: Performed By: #### A 1C WTH eA, LIPID, T3T, CMP, TSH3, BNP #### [place] [address] [place] Glucose [Mass/volume] in Ser um or PlasmaOrdered By: Rosemary Cartagena on 09-02-2023 Glucose [Mass/Vol] 126 mg/dL High 70-100 [facility] Comment on above: ADA recommended refe rence rangeRandom Glucose Reference Range is dependent on time and content of last meal. Glucose of more than 200 mg/dL in a nonstressed, ambulatory subject supports the diagnosis of Diabetes Mellitus. Result Comment: [place] om Glucose Reference Range is dependent on time and content of last meal. Glucose of more than 200 mg/dL in a nonstressed, ambulatory subject supports the diagnosis of Diabetes Mellitus. ADA recommended reference range Performed By: #### A 1C WT eA, LIPID, T3T, CMP, TSH3, BNP #### [facility] [address] Glucose mean value [Mass/vol ume] in Blood Estimated from glycated hemoglobinOrdered By: Rosemary Cartagena on 09-02-2023 Average glucose Estimated from glycated hemoglobin (Bld) [Mass/Vol] 148 mg/dL [facility] Hemoglobin A1c percentageOrd ered By: Rosemary Cartagena on 09-02-2023 HbA1c (Bld) [Mass fraction] 6.8 % High 4.3-5.6 [facility] Comment on above: Increased risk for d iabetes: 5.7 - 6.4diabetes: >6.4glycemic control for adults with diabetes: <7.0 Result Comment: Incr eased risk for diabetes: 5.7 - 6.4 diabetes: >6.4 glycemic control for adults with diabetes: <7.0 Performed By: #### A 1C WT eA, LIPID, T3T, CMP, TSH3, BNP #### [facility] [address] Lipid Panelon 09-02-2023 LDL Cholesterol,Calculated 56 mg/dL Normal 0-100 [facility] Comment on above: Result Comment: LDL ATP III CLASSIFICATION LDL less than 100 mg/dL Optimal LDL 100-129 mg/dL Near or above optimal LDL 130-159 mg/dL Borderline high LDL 160-189 mg/dL High LDL greater than 189 mg/dL Very high Performed By: #### A 1C WT eA, LIPID, T3T, CMP, TSH3, BNP #### [facility] [address] Triglyceride w/Reflex 259 mg/dL High 0-149 The Count Includes [facility] Comment on above: Result Comment: TRIG ATP III CLASSIFICATION TRIG less than 150 mg/dL Normal TRIG 150-199 mg/dL Borderline high TRIG 200-500 mg/dL High TRIG greater than 500 mg/dL Very high Standard traceable to the Center for Disease Conrtrol and Prevention (CDC) test method. Performed By: #### A 1C WTH eA, LIPID, T3T, CMP, TSH3, BNP #### [facility] [address] VLDL CHOLESTEROL 51 mg/dL Normal [facility] Comment on above: Performed By: #### A 1C WT eA, LIPID, T3T, CMP, TSH3, BNP #### [facility] [address] No Panel InformationOrdered By: Rosemary Cartagena on 09-02-2023 Estimated GFR (CKD-EPI) > 60.0 mL/Min [facility] Creatinine Clearance (Chem N/A [facility] Potassium [Moles/volume] in Serum or PlasmaOrdered By: Rosemary Cartagena on 09-02-2023 Potassium [Moles/Vol] 3.9 mmol/L Normal 3.5-5.1 [facility] Comment on above: Performed By: #### A 1C WT eA, LIPID, T3T, CMP, TSH3, BNP #### [address] Protein [Mass/volume] in Ser um or PlasmaOrdered By: Rosemary Cartagena on 09-02-2023 Protein [Mass/Vol] 6.4 g/dL Normal 6.4-8.9 [facility] Comment on above: Performed By: #### A 1C WT eA, LIPID, T3T, CMP, TSH3, BNP #### [address] Serum globulin measurement b y calculation (mass/volume)Ordered By: Rosemary Cartagena on 09-02-2023 Globulin (S) [Mass/Vol] 2.4 g/dL Normal [facility] Comment on above: Performed By: #### A 1C WTH eA, LIPID, T3T, CMP, TSH3, BNP #### [address] Serum or plasma albumin/glob ulin mass ratioOrdered By: Rosemary Cartagena on 09-02-2023 Albumin/Globulin [Mass ratio] 1.7 {ratio} [facility] Comment on above: Performed By: #### A 1C WTH eA, LIPID, T3T, CMP, TSH3, BNP #### [facility] [address] Serum or plasma anion gap de terminationOrdered By: Rosemary Cartagena on 09-02-2023 Anion gap [Moles/Vol] TNP [facility] Comment on above: Test not performed Serum or plasma high density lipoprotein (HDL) cholesterol measurementOrdered By: Rosemary Cartagena on 09-02-2023 Cholesterol in HDL [Mass/Vol] 31 mg/dL Normal 23-92 [facility] Comment on above: HDL CHOL ATP-III CLA SSIFICATION Cardiovascular RiskHDL > or equal to 60 mg/dL LOWHDL < 40 mg/dL HIGH Result Comment: HDL CHOL ATP-III CLASSIFICATION Cardiovascular Risk HDL > or equal to 60 mg/dL LOW HDL < 40 mg/dL HIGH Performed By: #### A 1C WTH eA, LIPID, T3T, CMP, TSH3, BNP #### [facility] [address] Serum or plasma total choles terol/high density lipoprotein (HDL) cholesterol mass ratOrdered By: Rosemary Cartagena on 09-02-2023 Cholesterol.total/Chol esterol in HDL [Mass ratio] 4.5 {ratio} Normal <5.0 [facility] Comment on above: Performed By: #### A 1C WTH eA, LIPID, T3T, CMP, TSH3, BNP #### [facility] [address] Sodium [Moles/volume] in Ser um or PlasmaOrdered By: Rosemary Cartagena on 09-02-2023 Sodium [Moles/Vol] 141 mmol/L Normal 136-145 [facility] Comment on above: Performed By: #### A 1C WTH eA, LIPID, T3T, CMP, TSH3, BNP #### [facility] [address] TRANSTHORACIC ECHO (TTE) COM PLETEon 09-02-2023 TRANSTHORACIC ECHO (TTE) COMPLETE [address], [address], [place] [address] TRANSTHORACIC ECHOCARDIOGRAM REPORT Patient Name: YOANA IBRAHIM Reading Physician: [id number] Syed Flores MD, [facility] Study Date: 09/02/2023 Ordering Provider: [id number] ROSEMARY CARTAGENA MRN/PID: [id number] Fellow: Nurse: Date of /Age: 4 1940 / 82 years Beauty Counselor: Sobeida Juarez RDCS, RVT Gender: M Additional Staff: Height: 167.64 cm Admit Date: Weight: 87.09 kg Admission Status: BSA: 1.97 m2 Department Location: [facility] Blood Pressure: 112 /74 mmHg Study Type: TRANSTHORACIC ECHO (TTE) COMPLETE Diagnosis/ICD: Abnormal electrocardiogram [ECG] [EKG]-R94.31; Sleep apnea, unspecified-G47.30; Permanent AFib-I48.21; Shortness of breath-R06.02 Indication: Sick Sinus Syndrome, Pacemaker/AICD, CHF, Diabetes, HTN, Hyperlipidemia, CABG, Former Smoker, Ischemic Cardiomyopathy, TIA-2017, History of Left UE DVT, Prostate Cancer CPT Codes: Echo Complete w Full Doppler-[id number] Study Detail: The following Echo studies were performed: 2D, M-Mode, Doppler and color flow. PHYSICIAN INTERPRETATION: Left Ventricle: Left ventricular systolic function is moderately to severely decreased, with an estimated ejection fraction of 35-40%. The left ventricular cavity size is normal. Left ventricular diastolic filling was not assessed. The interventricular septum is severely hypokinetic with increased echodensity suggesting a scar, there is severe inferior wall hypokinesis. Left Atrium: The left atrium is severely dilated. Right Ventricle: The right ventricle is normal in size. There is normal right ventricular global systolic function. A pacemaker wire is seen in the right ventricle. Right Atrium: The right atrium is upper limits of normal in size. Aortic Valve: The aortic valve is trileaflet. There is mild aortic valve cusp calcification. There is mild aortic valve regurgitation. The peak instantaneous gradient of the aortic valve is 7.3 mmHg. The mean gradient of the aortic valve is 3.0 mmHg. Mitral Valve: The mitral valve is mildly thickened. There is moderate mitral valve regurgitation. Tricuspid Valve: The tricuspid valve is structurally normal. There is mild to moderate tricuspid regurgitation. Calculated RVSP is 41 mmHg consistent with mild pulmonary hypertension. Pulmonic Valve: The pulmonic valve is structurally normal. There is no indication of pulmonic valve regurgitation. Pericardium: There is no pericardial effusion noted. Aorta: The aortic root is normal. Systemic Veins: The inferior vena cava appears to be of normal size. In comparison to the previous echocardiogram(s): Atrial fibrillation was noted throughout the study, no previous studies are available for comparison. CONCLUSIONS: 1. Left ventricular systolic function is moderately to severely decreased with a 35-40% estimated ejection fraction. 2. The interventricular septum is severely hypokinetic with increased echodensity suggesting a scar, there is severe inferior wall hypokinesis. 3. A pacemaker wire is seen in the right ventricle. 4. The left atrium is severely dilated. 5. Moderate mitral valve regurgitation. 6. Calculated RVSP is 41 mmHg consistent with mild pulmonary hypertension. 7. Mild to moderate tricuspid regurgitation. 8. Mild aortic valve regurgitation. 9. Atrial fibrillation was noted throughout the study, no previous studies are available for comparison. QUANTITATIVE DATA SUMMARY: 2D MEASUREMENTS: Normal Ranges: Ao Root d: 3.10 cm (2.0-3.7cm) LAs: 5.70 cm (2.7-4.0cm) RVIDd: 3.50 cm (0.9-3.6cm) IVSd: 1.40 cm (0.6-1.1cm) LVPWd: 1.00 cm (0.6-1.1cm) LVIDd: 5.30 cm (3.9-5.9cm) LVIDs: 4.00 cm LV Mass Index: 130.5 g/m2 LV % FS 24.5 % LV SYSTOLIC FUNCTION BY 2D PLANIMETRY (MOD): Normal Ranges: EF-A4C View: 14.5 % (>=55%) LV DIASTOLIC FUNCTION: Normal Ranges: MV Peak E: 0.91 m/s (0.7-1.2 m/s) MITRAL VALVE: Normal Ranges: MV Vmax: 1.51 m/s (<=1.3m/s) MV peak P.2 mmHg (<5mmHg) MV mean P.3 mmHg (<48mmHg) MITRAL INSUFFICIENCY: Normal Ranges: MR Vmax: 528.33 cm/s dP/dt: 784 mmHg/s (>1200mmHg/sec) AORTIC VALVE: Normal Ranges: AoV Vmax: 1.35 m/s (<=1.7m/s) AoV Peak P.3 mmHg (<20mmHg) AoV Mean P.0 mmHg (1.7-11.5mmHg) LVOT Max Diamond: 0.84 m/s (<=1.1m/s) AoV VTI: 26.70 cm (18-25cm) LVOT VTI: 16.10 cm LVOT Diameter: 2.10 cm (1.8-2.4cm) AoV Area, VTI: 2.09 cm2 (2.5-5.5cm2) AoV Area,Vmax: 2.14 cm2 (2.5-4.5cm2) AoV Dimensionless Index: 0.60 AORTIC INSUFFICIENCY: AI Vmax: 3.31 m/s AI Half-time: 437 msec AI Decel Rate: 204.00 cm/s2 TRICUSPID VALVE/RVSP: Normal Ranges: Peak TR Velocity: 2.99 m/s RV Syst Pressure: 38.8 mmHg (< 30mmHg) PULMONIC VALVE: Normal Ranges: PV Max Diamond: 0.6 m/s (0.6-0.9m/s) PV Max P.3 mmHg [id number] Syed Flores MD, [facility] Electronically signed on 09/02/2023 at 5:11:22 PM Final [facility] Thyrotropin [Units/volume] i n Serum or PlasmaOrdered By: Rosemary Cartagena on 09-02-2023 TSH Qn 4.72 m[IU]/L Normal 0.45-5.33 [facility] Comment on above: Result Comment: PERF ORMED BY: [place] [address] PATHOLOGIST [employer] WORKER TONEY KWON M.D. Performed By: #### A 1C WTH eA, LIPID, T3T, CMP, TSH3, BNP #### [address] Triglyceride [Mass/volume] i n Serum or PlasmaOrdered By: Rosemary Cartagena on 09-02-2023 Triglyceride [Mass/Vol] 259 mg/dL 0-149 [facility] Comment on above: TRIG ATP III CLASSIF ICATIONTRIG less than 150 mg/dL NormalTRIG 150-199 mg/dL Borderline highTRIG 200-500 mg/dL High TRIG greater than 500 mg/dL Very highStandard traceable to the Center for Disease Conrtrol and Prevention (CDC) test method. Triiodothyronine (T3) Totalo n 09-02-2023 Triiodothyronine (T3) Total 0.70 ng/mL Low 0.87-1.78 The Count Includes [facility] Comment on above: Performed By: #### A 1C WT eA, LIPID, T3T, CMP, TSH3, BNP #### [facility] [address] Triiodothyronine (T3) [Mass/ volume] in Serum or PlasmaOrdered By: Rosemary Cartagena on 09-02-2023 T3 [Mass/Vol] 0.70 ng/mL 0.87-1.78 [facility] US Heart TransthoracicOrdere d By: Syed Flores on 09-02-2023 Aortic Valve Area by Continuity of Peak Velocity 2.14 [facility] Work Phone: [phone] Aortic Valve Area by Continuity of VTI 2.09 [facility] Work Phone: [phone] AV mn grad 3.0 [facility] Work Phone: [phone] AV pk grad 7.3 [facility] Work Phone: [phone] AV pk diamond 1.35 [facility] Work Phone: [phone] LV A4C EF 14.5 [facility] Work Phone: [phone] LVIDd 5.30 [facility] Work Phone: [phone] LVOT diam 2.10 [facility] Work Phone: [phone] RVSP 38.8 [facility] Work Phone: [phone] [facility] Work Phone: [phone] US Heart Transthoracicon [facility] [address] [place] [address], [address], [place] [address] TRANSTHORACIC ECHOCARDIOGRAM REPORT Patient Name: YOANA IBRAHIM Reading Physician: [id number] Syed Flores MD, [facility] Study Date: 09/02/2023 Ordering Provider: [id number] ROSEMARY CARTAGENA MRN/PID: [id number] Fellow: Nurse: Date of /Age: 4 1940 / 82 years Beauty Counselor: Sobeida Juarez RDCS, RVT Gender: M Additional Staff: Height: 167.64 cm Admit Date: Weight: 87.09 kg Admission Status: BSA: 1.97 m2 Department Location: [facility] Blood Pressure: 112 /74 mmHg Study Type: TRANSTHORACIC ECHO (TTE) COMPLETE Diagnosis/ICD: Abnormal electrocardiogram [ECG] [EKG]-R94.31; Sleep apnea, unspecified-G47.30; Permanent AFib-I48.21; Shortness of breath-R06.02 Indication: Sick Sinus Syndrome, Pacemaker/AICD, CHF, Diabetes, HTN, Hyperlipidemia, CABG, Former Smoker, Ischemic Cardiomyopathy, TIA-2017, History of Left UE DVT, Prostate Cancer CPT Codes: Echo Complete w Full Doppler-[id number] Study Detail: The following Echo studies were performed: 2D, M-Mode, Doppler and color flow. PHYSICIAN INTERPRETATION: Left Ventricle: Left ventricular systolic function is moderately to severely decreased, with an estimated ejection fraction of 35-40%. The left ventricular cavity size is normal. Left ventricular diastolic filling was not assessed. The interventricular septum is severely hypokinetic with increased echodensity suggesting a scar, there is severe inferior wall hypokinesis. Left Atrium: The left atrium is severely dilated. Right Ventricle: The right ventricle is normal in size. There is normal right ventricular global systolic function. A pacemaker wire is seen in the right ventricle. Right Atrium: The right atrium is upper limits of normal in size. Aortic Valve: The aortic valve is trileaflet. There is mild aortic valve cusp calcification. There is mild aortic valve regurgitation. The peak instantaneous gradient of the aortic valve is 7.3 mmHg. The mean gradient of the aortic valve is 3.0 mmHg. Mitral Valve: The mitral valve is mildly thickened. There is moderate mitral valve regurgitation. Tricuspid Valve: The tricuspid valve is structurally normal. There is mild to moderate tricuspid regurgitation. Calculated RVSP is 41 mmHg consistent with mild pulmonary hypertension. Pulmonic Valve: The pulmonic valve is structurally normal. There is no indication of pulmonic valve regurgitation. Pericardium: There is no pericardial effusion noted. Aorta: The aortic root is normal. Systemic Veins: The inferior vena cava appears to be of normal size. In comparison to the previous echocardiogram(s): Atrial fibrillation was noted throughout the study, no previous studies are available for comparison. CONCLUSIONS: 1. Left ventricular systolic function is moderately to severely decreased with a 35-40% estimated ejection fraction. 2. The interventricular septum is severely hypokinetic with increased echodensity suggesting a scar, there is severe inferior wall hypokinesis. 3. A pacemaker wire is seen in the right ventricle. 4. The left atrium is severely dilated. 5. Moderate mitral valve regurgitation. 6. Calculated RVSP is 41 mmHg consistent with mild pulmonary hypertension. 7. Mild to moderate tricuspid regurgitation. 8. Mild aortic valve regurgitation. 9. Atrial fibrillation was noted throughout the study, no previous studies are available for comparison. QUANTITATIVE DATA SUMMARY: 2D MEASUREMENTS: Normal Ranges: Ao Root d: 3.10 cm (2.0-3.7cm) LAs: 5.70 cm (2.7-4.0cm) RVIDd: 3.50 cm (0.9-3.6cm) IVSd: 1.40 cm (0.6-1.1cm) LVPWd: 1.00 cm (0.6-1.1cm) LVIDd: 5.30 cm (3.9-5.9cm) LVIDs: 4.00 cm LV Mass Index: 130.5 g/m2 LV % FS 24.5 % LV SYSTOLIC FUNCTION BY 2D PLANIMETRY (MOD): Normal Ranges: EF-A4C View: 14.5 % (>=55%) LV DIASTOLIC FUNCTION: Normal Ranges: MV Peak E: 0.91 m/s (0.7-1.2 m/s) MITRAL VALVE: Normal Ranges: MV Vmax: 1.51 m/s (<=1.3m/s) MV peak P.2 mmHg (<5mmHg) MV mean P.3 mmHg (<48mmHg) MITRAL INSUFFICIENCY: Normal Ranges: MR Vmax: 528.33 cm/s dP/dt: 784 mmHg/s (>1200mmHg/sec) AORTIC VALVE: Normal Ranges: AoV Vmax: 1.35 m/s (<=1.7m/s) (more content not included)... Syed Simeon M D - 09/02/2023 [facility] [address], [address], [place] [address] TRANSTHORACIC ECHOCARDIOGRAM REPORT Patient Name: YOANA IBRAHIM Reading Physician: [id number] Syed Flores MD, [facility] Study Date: 09/02/2023 Ordering Provider: [id number] ROSEMARY CARTAGENA MRN/PID: [id number] Fellow: Nurse: Date of /Age: 4 1940 / 82 years Beauty Counselor: Sobeida Juarez RD, T Gender: M Additional Staff: Height: 167.64 cm Admit Date: Weight: 87.09 kg Admission Status: BSA: 1.97 m2 Department Location: [facility] Blood Pressure: 112 /74 mmHg Study Type: TRANSTHORACIC ECHO (TTE) COMPLETE Diagnosis/ICD: Abnormal electrocardiogram [ECG] [EKG]-R94.31; Sleep apnea, unspecified-G47.30; Permanent AFib-I48.21; Shortness of breath-R06.02 Indication: Sick Sinus Syndrome, Pacemaker/AICD, CHF, Diabetes, HTN, Hyperlipidemia, CABG, Former Smoker, Ischemic Cardiomyopathy, TIA-2017, History of Left UE DVT, Prostate Cancer CPT Codes: Echo Complete w Full Doppler-81386 Study Detail: The following Echo studies were performed: 2D, M-Mode, Doppler and color flow. PHYSICIAN INTERPRETATION: Left Ventricle: Left ventricular systolic function is moderately to severely decreased, with an estimated ejection fraction of 35-40%. The left ventricular cavity size is normal. Left ventricular diastolic filling was not assessed. The interventricular septum is severely hypokinetic with increased echodensity suggesting a scar, there is severe inferior wall hypokinesis. Left Atrium: The left atrium is severely dilated. Right Ventricle: The right ventricle is normal in size. There is normal right ventricular global systolic function. A pacemaker wire is seen in the right ventricle. Right Atrium: The right atrium is upper limits of normal in size. Aortic Valve: The aortic valve is trileaflet. There is mild aortic valve cusp calcification. There is mild aortic valve regurgitation. The peak instantaneous gradient of the aortic valve is 7.3 mmHg. The mean gradient of the aortic valve is 3.0 mmHg. Mitral Valve: The mitral valve is mildly thickened. There is moderate mitral valve regurgitation. Tricuspid Valve: The tricuspid valve is structurally normal. There is mild to moderate tricuspid regurgitation. Calculated RVSP is 41 mmHg consistent with mild pulmonary hypertension. Pulmonic Valve: The pulmonic valve is structurally normal. There is no indication of pulmonic valve regurgitation. Pericardium: There is no pericardial effusion noted. Aorta: The aortic root is normal. Systemic Veins: The inferior vena cava appears to be of normal size. In comparison to the previous echocardiogram(s): Atrial fibrillation was noted throughout the study, no previous studies are available for comparison. CONCLUSIONS: 1. Left ventricular systolic function is moderately to severely decreased with a 35-40% estimated ejection fraction. 2. The interventricular septum is severely hypokinetic with increased echodensity suggesting a scar, there is severe inferior wall hypokinesis. 3. A pacemaker wire is seen in the right ventricle. 4. The left atrium is severely dilated. 5. Moderate mitral valve regurgitation. 6. Calculated RVSP is 41 mmHg consistent with mild pulmonary hypertension. 7. Mild to moderate tricuspid regurgitation. 8. Mild aortic valve regurgitation. 9. Atrial fibrillation was noted throughout the study, no previous studies are available for comparison. QUANTITATIVE DATA SUMMARY: 2D MEASUREMENTS: Normal Ranges: Ao Root d: 3.10 cm (2.0-3.7cm) LAs: 5.70 cm (2.7-4.0cm) RVIDd: 3.50 cm (0.9-3.6cm) IVSd: 1.40 cm (0.6-1.1cm) LVPWd: 1.00 cm (0.6-1.1cm) LVIDd: 5.30 cm (3.9-5.9cm) LVIDs: 4.00 cm LV Mass Index: 130.5 g/m2 LV % FS 24.5 % LV SYSTOLIC FUNCTION BY 2D PLANIMETRY (MOD): Normal Ranges: EF-A4C View: 14.5 % (>=55%) LV DIASTOLIC FUNCTION: Normal Ranges: MV Peak E: 0.91 m/s (0.7-1.2 m/s) MITRAL VALVE: Normal Ranges: MV Vmax: 1.51 m/s (<=1.3m/s) MV peak P.2 mmHg (<5mmHg) MV mean P.3 mmHg (<48mmHg) MITRAL INSUFFICIENCY: Normal Ranges: MR Vmax: 528.33 cm/s dP/dt: 784 mmHg/s (>1200mmHg/sec) AORTIC VALVE: Normal Ranges: AoV Vmax: 1.35 m/s (<=1.7m/s) AoV Peak P.3 mmHg (<20mmHg) AoV Mean P.0 mmHg (1.7-11.5mmHg) LVOT Max Diamond: 0.84 m/s (<=1.1m/s) AoV VTI: 26.70 cm (18-25cm) LVOT VTI: 16.10 cm LVOT Diameter: 2.10 cm (1.8-2.4cm) AoV Area, VTI: 2.09 cm2 (2.5-5.5cm2) AoV Area,Vmax: 2.14 cm2 (2.5-4.5cm2) AoV Dimensionless Index: 0.60 AORTIC INSUFFICIENCY: AI Vmax: 3.31 m/s AI Half-time: 437 msec AI Decel Rate: 204.00 cm/s2 TRICUSPID VALVE/RVSP: Normal Ranges: Peak TR Velocity: 2.99 m/s RV Syst Pressure: 38.8 mmHg (< 30mmHg) PULMONIC VALVE: Normal Ranges: PV Max Diamond: 0.6 m/s (0.6-0.9m/s) PV Max PG: (more content not included)... [facility] Work Phone: Urea nitrogen [Mass/volume] in Serum or PlasmaOrdered By: Rosemary Cartagena on 09-02-2023 Urea nitrogen [Mass/Vol] 21 mg/dL Normal 04-06 [facility] Comment on above: Performed By: #### A [address]C [facility] eA, LIPID, T3T, CMP, TSH3, BNP #### [address] ECG 12 [place]on 09-01-2023 Atrial fibrillation. Towards the second half of the EKG patient goes into ventricular paced rhythm. When not paced QRS duration [address]-T abnormality in the inferior leads when paced QRS duration 180 ms. QTc 400 ms [facility] Work Phone: OVA AND PARASITE EXAMINATION on 12-23-2021 Ova + Parasite Exam Final report Normal [facility] Comment on above: Result Comment: Thes e results were obtained using wet preparation(s) and trichrome stained smear. This test does not include testing for Cryptosporidium parvum, Cyclospora, or Microsporidia. Performed By: #### O VAPE #### [facility] [address] [place] [address] Dr. Mely Avery Result 1 Comment Normal [facility] Comment on above: Result Comment: No o va, cysts, or parasites seen. . One negative specimen does not rule out the possibility of a parasitic infection. Performed By: #### O VAPE #### [facility] [address] [place] [address] Dr. Mely Avery STOOL CULTUREon 12-20-2021 Campylobacter Culture Final report Normal T [facility] Comment on above: Performed By: #### C XSTOOL #### [facility] [address] [place] [address] Dr. Mely Avery E coli Shiga Toxin EIA Negative Normal Negative [facility] Comment on above: Performed By: #### C XSTOOL #### [facility] [address] [place] [address] Dr. Mely Avery Result 1 Comment Normal [facility] Comment on above: Result Comment: No S almonella or Shigella recovered. Performed By: #### C XSTOOL #### [facility] [address] [place] [address] Dr. Mely Avery Result Comment: No C ampylobacter species isolated. Salmonella/Shigella Screen Final report Normal [facility] Comment on above: Performed By: #### C XSTOOL #### [facility] [address] [place] [address] Dr. Mely Avery C. DIFF PCRon 12-16-2021 C. DIFFICILE PCR Negative Normal NEGATIVE [facility] Comment on above: Performed By: #### C DIFPOC #### [facility] [address] [place] [address] [address] Mely Avery XR lumbar spine 6V w bending on 07-25-2021 XR lumbar spine 6V w bending [facility] NoWait Other XR lumbar spine 6V w bending [facility] NoWait Other XR lumbar spine 6V w bending [address] [place] [address] NoWait Other XR lumbar spine 6[place] [address] NoWait Other XR lumbar spine 6V w bending XRay Report NoWait Other XR lumbar spine 6V w bending Signed NoWait Other XR lumbar spine 6V w bending Patient: Yoana Ibrahim MR#: [id number] NoWait Other XR lumbar spine 6V w bending 9840 NoWait Other XR lumbar spine 6V w bending : 1940 Acct:[id number] NoWait Other XR lumbar spine 6V w bending Age/Sex: 80 / M ADM Date: 07/25/21 NoWait Other XR lumbar spine 6V w bending Loc: [place] Room: Type: [facility] NoWait Other XR lumbar spine 6V w bending Attending Dr: Osvaldo Maciel MD NoWait Other XR lumbar spine 6V w bending Ordering Provider: Osvaldo Maciel MD NoWait Other XR lumbar spine 6V w bending Date of Service: 07/25/21 NoWait Other XR lumbar spine 6V w bending XR/XR lumbar spine 6V w bending: M48.062, M43.16 M51.36 NoWait Other XR lumbar spine 6V w bending Copies to: Osvaldo Maciel MD NoWait Other XR lumbar spine 6V w bending LUMBAR SPINE WITH FLEXION, EXTENSION AND BENDING VIEWS- 6 views: NoWait Other XR lumbar spine 6V w bending CLINICAL HISTORY: Pain at the mid back when bending or standing up straight. No injury. NoWait Other XR lumbar spine 6V w bending COMPARISON: CT myelogram 07/01/2021 NoWait Other XR lumbar spine 6V w bending AP neutral, right and left bending as well as lateral views in neutral, flexion and extension were NoWait Other XR lumbar spine 6V w bending obtained. There is osteopenia. 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 There is minimal ret NoWait Other XR lumbar spine 6V w bending rolisthesis of L1 on L2 and L2 on L3. There is approximately 5 mm of anterolisthesis of L4 on L5. NoWait Other XR lumbar spine 6V w bending Alignment does not change significantly with flexion or extension. No acute fractures are present. NoWait Other XR lumbar spine 6V w bending There is slight disc space narrowing, greatest at L2-3 and the lumbosacral junction. There is NoWait Other XR lumbar spine 6V w bending endplate spurring, greater proximally and facet hypertrophy, greater distally. The SI joints show NoWait Other XR lumbar spine 6V w bending mild sclerosis. There is a bladder stimulator traversing a sacral foramen on the right. There is NoWait Other XR lumbar spine 6V w bending atherosclerotic plaque at the aorta and iliac arteries. NoWait Other XR lumbar spine 6V w bending XR/XR lumbar spine 6V w bending NoWait Other XR lumbar spine 6V w bending IMPRESSION: NoWait Other XR lumbar spine 6V w bending OSTEOPENIA, SCOLIOSIS AND DEGENERATIVE CHANGES, DESCRIBED NoWait Other XR lumbar spine 6V w bending Impression dictated by: Basilia Guevara M.D.07/25/2021 4:06 PM NoWait Other XR lumbar spine 6V w bending Dictation Location: [facility]-- NoWait Other XR lumbar spine 6V w bending Transcribed By: PWS 07/25/21 [facility] NoWait Other XR lumbar spine 6V w bending Dictated By: Basilia Guevara MD 07/25/21 [facility] NoWait Other XR lumbar spine 6V w bending Signed By: NoWait Other XR lumbar spine 6V w bending 07/25/21 [facility] NoWait Other Basic Metabolic Panelon 10-0 Anion gap [Moles/Vol] 11 mmol/L 9 - 17 mmol/L [place] Bun/Cre Ratio NOT REPORTED [place] Calcium [Mass/Vol] 8.3 mg/dL Low 8.6 - 10. 4 mg/dL [place] Chloride [Moles/Vol] 104 mmol/L 98 - 10 7 mmol/L [place] CO2 [Moles/Vol] 26 mmol/L 20 - 31 mmol/L [place] Creatinine [Mass/Vol] 1.12 mg/dL 0.7 - 1.2 mg/dL [place] GFR >60 >60 mL/min [place] GFR Non- >60 >60 mL/min [place] GFR/1.73 sq M predicted among non-blacks MDRD (S/P/Bld) [Vol rate/Area] [place] Comment on above: Average GFR for 70 o r more years old: 75 mL/min/1.73sq m Chronic Kidney Disease: <60 mL/min/1.73sq m Kidney failure: <15 mL/min/1.73sq m eGFR calculated using average adult body mass. Additional eGFR calculator available at: http://www.[employer]/multiple_crcl_2012.htm GFR/1.73 sq M predicted among non-blacks MDRD (S/P/Bld) [Vol rate/Area] NOT REPORTED [place] Glucose [Mass/Vol] 111 mg/dL High 70 - 99 mg/dL [place] Interpretation and review of laboratory results Abnormal [place] Potassium [Moles/Vol] 4.0 mmol/L 3.7 - 5.3 mmol/L [place] Sodium [Moles/Vol] 141 mmol/L 135 - 144 mmol/L [place] Urea nitrogen [Mass/Vol] 26 mg/dL High 8 - 23 mg/dL [place] Basic Metabolic Profon 06-13 (cont.) Normal [facility] Comment on above: Result Comment: Aver age GFR for 70 or more years old: 75 mL/min/1.73sq m Chronic Kidney Disease: <60 mL/min/1.73sq m Kidney failure: <15 mL/min/1.73sq m eGFR calculated using average adult body mass. Additional eGFR calculator available at: http://www.[employer]/multiple_crcl_2011.htm Performed By: #### C BC, BMP, MG, GLYHGB #### [employer] [address] [place] [address] Carbon Printer: Bradley Richey MD Anion gap [Moles/Vol] 11 mmol/L Normal 9-17 [facility] Comment on above: Performed By: #### C BC, BMP, MG, GLYHGB #### [facility] [address] [place] [address] Carbon Printer: Bradley Richey MD Calcium [Mass/Vol] 8.3 mg/dL Low 8.6-10.4 [facility] Comment on above: Performed By: #### C BC, BMP, MG, GLYHGB #### [facility] [address] [place] [address] Carbon Printer: Bradley Richey MD Chloride [Moles/Vol] 104 mmol/L Normal 98-107 [facility] Comment on above: Performed By: #### C BC, BMP, MG, GLYHGB #### [facility] [employer] [address] [place] [address] Carbon Printer: Bradley Richey MD CO2 [Moles/Vol] 26 mmol/L Normal 20-31 [facility] Comment on above: Performed By: #### C BC, BMP, MG, GLYHGB #### [facility] [address] [place] [address] Carbon Printer: Bradley Richey MD Creatinine [Mass/Vol] 1.12 mg/dL Normal 0.70-1.20 [facility] Comment on above: Performed By: #### C BC, BMP, MG, GLYHGB #### [facility] [employer] [address] [place] [address] Carbon Printer: Bradley Richey MD GFR, Amer >60 Normal >60 [facility] [place] [facility] Comment on above: Performed By: #### C BC, BMP, MG, GLYHGB #### [facility] [employer] [address] [place] [address] Carbon Printer: Bradley Richey MD GFR,non Amer >60 Normal >60 [facility] Comment on above: Performed By: #### C BC, BMP, MG, GLYHGB #### [facility] [employer] [address] [place] [address] Carbon Printer: Bradley Richey MD Glucose [Mass/Vol] 111 mg/dL High 70-99 [facility] Comment on above: Performed By: #### C BC, BMP, MG, GLYHGB #### [facility] [place] [address] Carbon Printer: Bradley Richey MD Potassium [Moles/Vol] 4.0 mmol/L Normal 3.7-5.3 [facility] Comment on above: Performed By: #### C BC, BMP, MG, GLYHGB #### [facility] [employer] [address] [place] [address] Carbon Printer: Bradley Richey MD Sodium [Moles/Vol] 141 mmol/L Normal 135-144 [facility] Comment on above: Performed By: #### C BC, BMP, MG, GLYHGB #### [facility] [address] [place] [address] Carbon Printer: Bradley Richey MD Urea nitrogen [Mass/Vol] 26 mg/dL High 8- [facility] Comment on above: Performed By: #### C BC, BMP, MG, GLYHGB #### [facility] [employer] [address] [place] [address] Carbon Printer: Bradley Richey MD BUN/CRE Ratio NOT REPORTED Normal 9- [facility] Comment on above: Performed By: #### C BC, BMP, MG, GLYHGB #### [facility] [address] [place] [address] Carbon Printer: Bradley Richey MD Staging: NOT REPORTED Normal [facility] Comment on above: Performed By: #### C BC, BMP, MG, GLYHGB #### [facility] [address] [place] [address] Carbon Printer: Bradley Richey MD CBCon 06-13-2019 Erythrocyte distribution width (RBC) [Ratio] 13.0 % Normal 11.8-14.4 [facility] Comment on above: Performed By: #### C BC, BMP, MG, GLYHGB #### [facility] [address] [place] [address] Carbon Printer: Bradley Richey MD Hematocrit (Bld) [Volume fraction] 36.6 % Low 40.7-50.3 [facility] Comment on above: Performed By: #### C BC, BMP, MG, GLYHGB #### [facility] [employer] [address] [place] [address] Carbon Printer: Bradley Richey MD Hemoglobin (Bld) [Mass/Vol] 11.8 g/dL Low 13.0-17.0 [facility] Comment on above: Performed By: #### C BC, BMP, MG, GLYHGB #### [place] [address] Carbon Printer: Bradley Richey MD MCH (RBC) [Entitic mass] 33.1 pg Normal 25.2-33.5 [facility] Comment on above: Performed By: #### C BC, BMP, MG, GLYHGB #### [place] [address] Carbon Printer: Bradley Richey MD MCHC (RBC) [Mass/Vol] 32.2 g/dL Normal 28.4-34.8 [facility] Comment on above: Performed By: #### C BC, BMP, MG, GLYHGB #### [facility] [employer] [address] [place] [address] Carbon Printer: Bradley Richey MD MCV (RBC) [Entitic vol] 102.5 fL Normal 82.6-102.9 [facility] Comment on above: Performed By: #### C BC, BMP, MG, GLYHGB #### [facility] [employer] [address] [place] [address] Carbon Printer: Bradley Richey MD NRBC Automated 0.0 per 100 WBC Normal 0.0 [facility] Comment on above: Performed By: #### C BC, BMP, MG, GLYHGB #### [facility] [place] [address] Carbon Printer: Bradley Richey MD Platelet mean volume (Bld) [Entitic vol] 9.8 fL Normal 8.1-13.5 [facility] Comment on above: Performed By: #### C BC, BMP, MG, GLYHGB #### [facility] [employer] [address] [place] [address] Carbon Printer: Bradley Richey MD Platelets (Bld) [#/Vol] 174 10*3/uL Normal 138-453 [facility] Comment on above: Performed By: #### C BC, BMP, MG, GLYHGB #### [facility] [facility] [address] [place] [address] Carbon Printer: Bradley Richey MD RBC (Bld) [#/Vol] 3.57 10*6/uL Low 4.21-5.77 [facility] Comment on above: Performed By: #### C BC, BMP, MG, GLYHGB #### [facility] [facility] [address] [place] [address] Carbon Printer: Bradley Richey MD WBC (Bld) [#/Vol] 8.7 10*3/uL Normal 3.5-11.3 [facility] Comment on above: Performed By: #### C BC, BMP, MG, GLYHGB #### [facility] [employer] [address] [place] [address] Carbon Printer: Bradley Richey MD Erythrocyte distribution width (RBC) [Ratio] 13.0 % 11.8 - 14.4 % [place] Hematocrit (Bld) [Volume fraction] 36.6 % Low 40.7 - 50.3 % [place] Hemoglobin (Bld) [Mass/Vol] 11.8 g/dL Low 13 - 17 g/dL [place] Interpretation and review of laboratory results Abnormal [place] MCH (RBC) [Entitic mass] 33.1 pg 25.2 - 33.5 pg [place] MCHC (RBC) [Mass/Vol] 32.2 g/dL 28.4 - 34.8 g/dL [place] MCV (RBC) [Entitic vol] 102.5 fL 82.6 - 102.9 fL [place] Platelet mean volume (Bld) [Entitic vol] 9.8 fL 8.1 - 13.5 fL [place] Platelets (Bld) [#/Vol] 174 10*3/uL [place] RBC (Bld) [#/Vol] 3.57 10*6/uL Low 4.21 - 5.77 m/uL [place] WBC (Bld) [#/Vol] 0.0 10*3/uL 0.0 per 100 WBC [place] WBC (Bld) [#/Vol] 8.7 10*3/uL [place] HEMOGLOBIN A1Con 06-13-2019 Glucose [Mass/Vol] 143 mg/dL [place] Comment on above: The ADA and AACC rec ommend providing the estimated average glucose result to permit better patient understanding of their HBA1c result. HbA1c (Bld) [Mass fraction] 6.6 % High 4 - 6 % [place] Interpretation and review of laboratory results Abnormal [place] Hemoglobin A1Con 06-13-2019 HbA1c (Bld) [Mass fraction] 6.6 % High 4.0-6.0 [facility] Comment on above: Performed By: #### C BC, BMP, MG, GLYHGB #### [facility] [address] [place], [place] [id number] Carbon Printer: Bradley Richey MD HbA1c (Bld) [Mass fraction] 143 mg/dL Normal [facility] Comment on above: Result Comment: The ADA and AACC recommend providing the estimated average glucose result to permit better patient understanding of their HBA1c result. Performed By: #### C BC, BMP, MG, GLYHGB #### [facility] [address] [place] [address] Carbon Printer: Bradley Richey MD Magnesiumon 06-13-2019 Magnesium [Mass/Vol] 1.9 mg/dL Normal 1.6-2.6 [facility] Comment on above: Performed By: #### C BC, BMP, MG, GLYHGB #### [facility] [address] [place] [address] Carbon Printer: Bradley Richey MD Magnesium [Mass/Vol] 1.9 mg/dL 1.6 - 2 .6 mg/dL [place] POC Glucose Fingerstickon Glucose [Mass/Vol] 209 mg/dL High 75 - 110 mg/dL [place] Interpretation and review of laboratory results Abnormal [place] Glucose [Mass/Vol] 165 mg/dL High 75 - 110 mg/dL [place] Interpretation and review of laboratory results Abnormal [place] XR CHEST (2 VW)on 06-13-2019 XR CHEST (2 VW) EXAMINATION: TWO X-RAY VIEWS OF THE CHEST, 06/13/2019 10:36 am COMPARISON: June 12, 2019 HISTORY: ORDERING SYSTEM PROVIDED HISTORY: s/p aicd TECHNOLOGIST PROVIDED HISTORY: s/p aicd Reason for Exam: Patient denies chest complaints; states had pacemaker and defibrillator put in yesterday. Acuity: Unknown Type of Exam: Unknown FINDINGS: Left AICD with overlying skin koki. No definite pneumothorax. No focal consolidation. Minimal pleural effusions. Cardiomegaly. Sternotomy. No pulmonary edema. IMPRESSION: Minimal pleural effusions. Interpreted by: Abdon Dolan MD Signed by: Abdon Dolan MD 06/13/19 Final result Normal [facility] XR CHEST PORTABLEon 06-13-20 XR CHEST PORTABLE EXAMINATION: ONE XRAY VIEW OF THE CHEST 06/12/2019 3:19 pm COMPARISON: 12/05/2017 HISTORY: ORDERING SYSTEM PROVIDED HISTORY: Pacemaker placement and rule out pneumothorax TECHNOLOGIST PROVIDED HISTORY: Pacemaker placement and rule out pneumothorax FINDINGS: Median sternotomy wires are noted. Left chest pacemaker device is in place with a new battery pack and new 3rd lead. Heart size is stable. No vascular congestion. No focal airspace consolidation, pneumothorax, or pleural effusion. No free air beneath the diaphragm. IMPRESSION: Left chest pacemaker device in place. No evidence of pneumothorax. Interpreted by: Rosalba Brush DO Signed by: Rosalba Brush DO 06/12/19 Final result Normal [facility] CHLORIDE (POC)on 06-12-2019 Chloride [Moles/Vol] 107 mmol/L 98 - 10 7 mmol/L [place] Creatinine W/GFR Point of Ca reon 06-12-2019 Creatinine [Mass/Vol] 1.02 mg/dL 0.51 - 1.19 mg/dL [place] GFR Non- >60 >60 mL/min [place] GFR/1.73 sq M predicted among non-blacks MDRD (S/P/Bld) [Vol rate/Area] mL/min/{1.73_m2} >60 mL/min [place] GFR/1.73 sq M predicted among non-blacks MDRD (S/P/Bld) [Vol rate/Area] [place] Comment on above: Average GFR for 70 o r more years old: 75 mL/min/1.73sq m Chronic Kidney Disease: <60 mL/min/1.73sq m Kidney failure: <15 mL/min/1.73sq m eGFR calculated using average adult body mass. Additional eGFR calculator available at: http://www.[employer]/multiple_crcl_2012.htm Hemoglobin and hematocrit, b loodon 06-12-2019 Hematocrit (Bld) [Volume fraction] 34 % Low 41 - 53 % [place] Hemoglobin (Bld) [Mass/Vol] 11.5 g/dL Low 13.5 - 17.5 g/dL [place] Otheron 06-12-2019 Interpretation and review of laboratory results Abnormal [place] POC Glucose Fingerstickon Glucose [Mass/Vol] 115 mg/dL High 75 - 110 mg/dL [place] Interpretation and review of laboratory results Abnormal [place] Glucose [Mass/Vol] 112 mg/dL High 75 - 110 mg/dL [place] Interpretation and review of laboratory results Abnormal [place] POCT Glucoseon 06-12-2019 Glucose [Mass/Vol] 120 mg/dL High 74 - 100 mg/dL [place] POTASSIUM (POC)on 06-12-2019 Potassium [Moles/Vol] 4.4 mmol/L 3.5 - 4.5 mmol/L [place] SODIUM (POC)on 06-12-2019 Sodium [Moles/Vol] 144 mmol/L 138 - 146 mmol/L [place] XR CHEST PORTABLEon 06-12-20 19 Left chest pacemaker device in place. No evidence of pneumothorax. [place] EXAMINATION: ONE XRA Y VIEW OF THE CHEST 06/12/2019 3:19 pm COMPARISON: 12/05/2017 HISTORY: ORDERING SYSTEM PROVIDED HISTORY: Pacemaker placement and rule out pneumothorax TECHNOLOGIST PROVIDED HISTORY: Pacemaker placement and rule out pneumothorax FINDINGS: Median sternotomy wires are noted. Left chest pacemaker device is in place with a new battery pack and new 3rd lead. Heart size is stable. No vascular congestion. No focal airspace consolidation, pneumothorax, or pleural effusion. No free air beneath the diaphragm. [place], [place] Pri[place], Mhpn Incoming Radiant Results From Individual Digitale/Pacs - 06/12/2019 10:21 PM EDT EXAMINATION: ONE XRAY VIEW OF THE CHEST 06/12/2019 3:19 pm COMPARISON: 12/05/2017 HISTORY: ORDERING SYSTEM PROVIDED HISTORY: Pacemaker placement and rule out pneumothorax TECHNOLOGIST PROVIDED HISTORY: Pacemaker placement and rule out pneumothorax FINDINGS: Median sternotomy wires are noted. Left chest pacemaker device is in place with a new battery pack and new 3rd lead. Heart size is stable. No vascular congestion. No focal airspace consolidation, pneumothorax, or pleural effusion. No free air beneath the diaphragm. IMPRESSION: Left chest pacemaker device in place. No evidence of pneumothorax. [place] XR KNEE RIGHT (3 VIEWS)on XR KNEE RIGHT (3 VIEWS) EXAMINATION:3 VIEWS OF THE RIGHT KNEE01/17/2018 1:18 pmCOMPARISON:December 02, 2017HISTORY:ORDERING SYSTEM PROVIDED HISTORY: Status post total right knee replacementTECHNOLOGIST PROVIDED HISTORY:Reason for exam:->right tkaFINDINGS:Right knee total arthroplasty components are intact and well aligned. Noacute periprosthetic fracture.Small knee joint effusion. Mild near anterior soft tissue swelling.Vascular calcifications are seen.IMPRESSION: Right knee total arthroplasty.Small joint effusion and the anterior knee soft tissue swelling are likelyrelated to recent surgery.Interpreted by:DEEDEE Ariasigned by:Abdon Dolan MD01/17/18inal result Normal [facility] Vital Signs Date Time Vital Sign Value Performing Clinician Facility 04-25-2024 13:55-0400 Blood Pressure Location Anabel Orzech [facility] 04-25-2024 13:55-0400 Diastolic blood pressure 56 mm[Hg] Anabel Orzech [facility] 04-25-2024 13:55-0400 Heart rate 63 /min Anabel Orzech [facility] 04-25-2024 13:55-0400 Respiratory rate 18 /min Anabel Orzech [facility] 04-25-2024 13:55-0400 Systolic blood pressure 110 mm[Hg] Anabel Orzech [facility] 04-03-2024 11:19-0400 Body height 167.64 cm DO Shanique [place] Work Phone: [facility] 04-03-2024 11:19-0400 Body mass index (BMI) [Ratio] 29.3 kg/m2 DO [place] Work Phone: [facility] 04-03-2024 11:19-0400 Body weight 82.55 kg DO Shanique [place] Work Phone: [facility] 04-03-2024 11:19-0400 Diastolic blood pressure 42 mm[Hg] DO Shanique [place] Work Phone: [facility] 04-03-2024 11:19-0400 Heart rate 66 /min DO Shanique Schwab Work Phone: [facility] 04-03-2024 11:19-0400 Systolic blood pressure 93 mm[Hg] DO Shanique Schwab Work Phone: [facility] 12-22-2023 14:28-0400 Body height 167.6 cm Hosea Heart WOOD CARVING LATHE OPERATOR-PICKLING DRUM OPERATOR Work Phone: [facility] 12-22-2023 14:28-0400 Body mass index (BMI) [Ratio] 31.47 kg/m2 [facility] Heart WOOD CARVING LATHE OPERATOR-PICKLING DRUM OPERATOR Work Phone: [facility] 12-22-2023 [id number] Body weight 88.45 kg Hosea Heart WOOD CARVING LATHE OPERATOR-PICKLING DRUM OPERATOR Work Phone: [facility] 12-22-2023 14:28-0400 Diastolic blood pressure 50 mm[Hg] [facility] WOOD CARVING LATHE OPERATOR-PICKLING DRUM OPERATOR Work Phone: [facility] 12-22-2023 14:28-0400 Heart rate 60 /min H[facility]a Heart WOOD CARVING LATHE OPERATOR-PICKLING DRUM OPERATOR Work Phone: [facility] 12-22-2023 14:28-0400 Systolic blood pressure 120 mm[Hg] H[facility]a Heart WOOD CARVING LATHE OPERATOR-PICKLING DRUM OPERATOR Work Phone: [facility] 12-06-2023 15:090400 Body height 167.6 cm H[facility]a Heart WOOD CARVING LATHE OPERATOR-PICKLING DRUM OPERATOR Work Phone: [facility] 12-06-2023 15:09-0400 Body mass index (BMI) [Ratio] 29.86 kg/m2 [facility] WOOD CARVING LATHE OPERATOR-PICKLING DRUM OPERATOR Work Phone: [facility] 12-06-2023 [id number] Body weight 83.92 kg H[facility]a Heart WOOD CARVING LATHE OPERATOR-PICKLING DRUM OPERATOR Work Phone: [facility] 12-06-2023 15:09-0400 Diastolic blood pressure 64 mm[Hg] [facility]a Heart WOOD CARVING LATHE OPERATOR-PICKLING DRUM OPERATOR Work Phone: [facility] 12-06-2023 15:09-0400 Heart rate 60 /min [facility] WOOD CARVING LATHE OPERATOR-PICKLING DRUM OPERATOR Work Phone: [facility] 12-06-2023 15:09-0400 Systolic blood pressure 112 mm[Hg] [facility] WOOD CARVING LATHE OPERATOR-PICKLING DRUM OPERATOR Work Phone: [facility] 10-25-2023 15:04-0500 Body height 167.6 cm Rosemary Cartagena MD Work Phone: [facility] 10-25-2023 15:04-0500 Body mass index (BMI) [Ratio] 30.67 kg/m2 Rosemary Cartagena MD Work Phone: [facility] 10-25-2023 15:04-0500 Body weight 86.18 kg Rosemary Cartagena MD Work Phone: [facility] 10-25-2023 15:04-0500 Diastolic blood pressure 62 mm[Hg] Rosemary Cartagena MD Work Phone: [facility] 10-25-2023 15:04-0500 Heart rate 64 /min Rosemary Cartagena MD Work Phone: [facility] 10-25-2023 15:04-0500 Systolic blood pressure 118 mm[Hg] Rosemary Cartagena MD Work Phone: [facility] 09-02-2023 13:25-0500 Body height 167.[address] 09-02-2023 13:25-0500 Body mass index (BMI) [Ratio] 30.99 kg/m2 [address] 09-02-2023 13:25-0500 Body weight 87.[address] 09-02-2023 13:25-0500 Diastolic blood pressure 74 mm[Hg] [address] 09-02-2023 13:25-0500 Systolic blood pressure 112 mm[Hg] [address] 08-30-2023 11:14-0500 Diastolic blood pressure 80 mm[Hg] Rosemary Cartagena MD Work Phone: [facility] 08-30-2023 11:14-0500 Heart rate 67 /min Rosemary Cartagena MD Work Phone: [facility] 08-30-2023 11:14-0500 Systolic blood pressure 110 mm[Hg] Rosemary Cartagena MD Work Phone: [facility] 08-30-2023 11:13-0500 Body height 167.6 cm Rosemary Cartagena MD Work Phone: [facility] 08-30-2023 11:13-0500 Body mass index (BMI) [Ratio] 30.99 kg/m2 Rosemary Cartagena MD Work Phone: [facility] 08-30-2023 11:13-0500 Body weight 87.09 kg Rosemary Cartagena MD Work Phone: [facility] 04-01-2023 14:00-0400 Body height 167.64 cm Alexei Van Other [facility] Other 04-01-2023 14:00-0400 Body mass index (BMI) [Ratio] 28.73 kg/m2 Alexei Van Other [facility] Other 04-01-2023 14:00-0400 Body weight 80.74 kg Alexei Van Other [facility] Other 04-01-2023 14:00-0400 Diastolic blood pressure 74 mm[Hg] Alexei Van Other [facility] Other 04-01-2023 14:00-0400 Systolic blood pressure 140 mm[Hg] Alexei Van Other [facility] Other 03-11-2022 16:00-0400 Body height 167.64 cm Alexei Van Other [facility] Other 03-11-2022 16:00-0400 Body mass index (BMI) [Ratio] 29.05 kg/m2 Alexei Van Other [facility] Other 03-11-2022 16:00-0400 Body weight 81.65 kg Alexei Van Other [facility] Other 09-02-2021 15:40-0500 Body height 167.64 cm Osvaldo Maciel Other [facility] Other 09-02-2021 15:40-0500 Body mass index (BMI) [Ratio] 32.6 kg/m2 Osvaldo Maciel Other [facility] Other 09-02-2021 15:40-0500 Body weight 91.63 kg Osvaldo Maciel Other [facility] Other 08-25-2021 15:30-0500 Body height 167.64 cm Abdon Jackman Other [facility] Other 08-25-2021 15:30-0500 Body mass index (BMI) [Ratio] 32.6 kg/m2 Abdon Jackman Other [facility] Other 08-25-2021 15:30-0500 Body temperature 98.1 [degF] Abdon Jackman Other [facility] Other 08-25-2021 15:30-0500 Body weight 91.63 kg Abdon Jackman Other [facility] Other 08-25-2021 15:30-0500 Diastolic blood pressure 68 mm[Hg] Abdon Agarwalstar Other [facility] Other 08-25-2021 15:30-0500 SaO2% (BldA) [Mass fraction] 98 % Abdon Agarwalstar Other [facility] Other 08-25-2021 15:30-0500 Systolic blood pressure 136 mm[Hg] Abdon Augustina Other [facility] Other 07-24-2021 14:20-0500 Body height 167.64 cm Osvaldo Maciel Other [facility] Other 07-24-2021 14:20-0500 Body mass index (BMI) [Ratio] 32.6 kg/m2 Osvaldo Maciel Other [facility] Other 07-24-2021 14:20-0500 Body weight 91.63 kg Osvaldo Maciel Other [facility] Other 07-24-2021 14:20-0500 Diastolic blood pressure 75 mm[Hg] Osvaldo Maciel Other [facility] Other 07-24-2021 14:20-0500 Systolic blood pressure 134 mm[Hg] Osvaldo Maciel Other [facility] Other 07-03-2021 17:15-0400 Body height 167.64 cm Ryder Pollack Other [facility] Other 07-03-2021 17:15-0400 Body mass index (BMI) [Ratio] 31.95 kg/m2 Ryder Pollack Other [facility] Other 07-03-2021 17:15-0400 Body weight 89.81 kg Ryder Pollack Other [facility] Other 07-03-2021 17:15-0400 Diastolic blood pressure 60 mm[Hg] Ryder Pollack Other [facility] Other 07-03-2021 17:15-0400 SaO2% (BldA) [Mass fraction] 98 % Ryder Pollack Other [facility] Other 07-03-2021 17:15-0400 Systolic blood pressure 140 mm[Hg] Ryder Pollack Other [facility] Other 06-30-2021 16:45-0400 Body height 167.64 cm Abdon Jackman Other [facility] Other 06-30-2021 16:45-0400 Body mass index (BMI) [Ratio] 31.95 kg/m2 Abdon Jackman Other [facility] Other 06-30-2021 16:45-0400 Body temperature 97.6 [degF] Abdon Jackman Other [facility] Other 06-30-2021 16:45-0400 Body weight 89.81 kg Abdon Jackman Other [facility] Other 06-30-2021 16:45-0400 Diastolic blood pressure 68 mm[Hg] Abdon Jackman Other [facility] Other 06-30-2021 16:45-0400 SaO2% (BldA) [Mass fraction] 96 % Abdon Jackman Other [facility] Other 06-30-2021 16:45-0400 Systolic blood pressure 130 mm[Hg] Abdon Jackman Other [facility] Other 06-16-2021 15:00-0400 Body weight 89.9 kg Ryder Pollack Other [facility] Other 06-16-2021 15:00-0400 Diastolic blood pressure 76 mm[Hg] Ryder Pollack Other [facility] Other 06-16-2021 15:00-0400 Respiratory rate 18 /min Ryder Pollack Other [facility] Other 06-16-2021 15:00-0400 SaO2% (BldA) [Mass fraction] 95 % Ryder Pollack Other [facility] Other 06-16-2021 15:00-0400 Systolic blood pressure 152 mm[Hg] Ryder Pollack Other [facility] Other 06-13-2019 11:52-0400 Body Temperature 98.4 [degF] [facility] [place] 06-13-2019 11:52-0400 BP Diastolic 55 mm[Hg] [facility] [place] 06-13-2019 11:52-0400 BP Systolic 123 mm[Hg] [facility] [place] 06-13-2019 11:52-0400 Pulse (Heart Rate) 63 /min [facility] [place] 06-13-2019 11:52-0400 Respiratory Rate 20 /min [facility] [place] 06-13-2019 07:15-0400 BMI (Body Mass Index) 33.06 kg/m2 Am[facility] 06-13-2019 07:15-0400 Body weight 92.9 kg Ameer [facility] [place] 06-13-2019 07:15-0400 Height 167.6 cm Ameer [place], [place] 06-12-2019 20:20-0400 Pulse Oximetry 93 % Ameer [facility] , [place] Encounters Encounter Date Encounter Type Care Provider Facility Start: 04-25-2024 End: 04-25-2024 ambulatory Anabel X Orzech Facility:[facility] Start: 04-25-2024 End: 04-25-2024 Patient encounter procedure Anabel X Orzech [facility] Start: 04-24-2024 End: 04-24-2024 ambulatory [facility] Amb[facility] Start: 04-03-2024 End: 04-03-2024 ambulatory DO Shanique Schwab Work Phone: [facility] Work Phone: Start: 04-03-2024 End: 04-03-2024 Patient encounter procedure DO [place] Work Phone: Count Includes [facility] Work Phone: Start: 03-06-2024 End: 03-06-2024 Patient encounter procedure DO Shanique Schwab Work Phone: [facility]-Pacemaker Check Start: 03-06-2024 End: 03-06-2024 ambulatory DO Shanique [place] Work Phone: [facility] Work Phone: Start: 03-01-2024 End: 03-01-2024 ambulatory RAÚL-Sonu TANNER Facility: [place] Start: 03-01-2024 End: 03-01-2024 Patient encounter procedure SADAF TANNER [facility] Start: 02-23-2024 End: 02-23-2024 ambulatory VIKY LOWE Not Available Start: 02-18-2024 End: 02-18-2024 Patient encounter procedure DO Shanique Schwab Work Phone: [facility]CT Scan [facility] [place] Work Phone: Start: 02-18-2024 End: 02-18-2024 ambulatory DO Shanique Schwab Work Phone: [facility] Work Phone: Start: 01-31-2024 End: 01-31-[address] [facility] Start: 01-26-2024 ambulatory ROBERT TANNER Fac ility:JACKI Neumann Start: 01-25-2024 End: 01-25-2024 ambulatory VIKY LOWE Not Available Start: 12-22-2023 End: 12-22-[address] [facility] Start: 12-22-2023 End: 12-22-2023 Office outpatient visit 15 minutes Hosea Ila Heart WOOD CARVING LATHE OPERATOR-PICKLING DRUM OPERATOR Work Phone: [facility] Comment on above: BMI 31.0-31.9,adult (Primary Dx); Ischemic cardiomyopathy Start: 12-06-2023 End: 12-06-[address] [facility] Start: 12-06-2023 End: 12-06-2023 Office outpatient visit 15 minutes Hosea Ila Heart WOOD CARVING LATHE OPERATOR-PICKLING DRUM OPERATOR Work Phone: [facility] Comment on above: BMI 29.0-29.9,adult (Primary Dx); Ischemic cardiomyopathy; 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 Start: 12-03-2023 End: 12-03-2023 Patient encounter procedure DO Shanique Schwab Work Phone: [facility]Lab [facility] [place] Work Phone: Start: 12-03-2023 End: 12-03-2023 ambulatory DO Shanique Schwab Work Phone: [facility] Work Phone: Start: 12-03-2023 End: 12-03-2023 Patient encounter procedure DO Shanique Schwab Work Phone: [facility]Pac[facility] Start: 12-03-2023 End: 12-03-2023 ambulatory DO Shanique Schwab Work Phone: [facility] Work Phone: Start: 10-25-2023 End: 10-25-2023 ambulatory [facility] Start: 10-25-2023 End: 10-25-2023 Office outpatient visit 25 minutes Rosemary Cartagena MD Work Phone: [facility] Comment on above: Bipolar disorder, cu rrent episode manic severe with psychotic features (CMS/HCC) (Primary Dx); Permanent atrial fibrillation (CMS/HCC); Ischemic cardiomyopathy; ICD (implantable cardioverter-defibrillator) in place; Hx of coronary artery bypass graft; Coronary artery disease involving [place] coronary artery of [place] heart without angina pectoris; History of stroke; Other specified diabetes mellitus with other specified complication, unspecified whether lobsterman insulin use (CMS/HCC); 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; USP 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; Obstructive sleep apnea syndrome; Medication course changed; Sacroiliitis, not elsewhere classified (CMS/HCC); Idiopathic chronic pancreatitis (CMS/HCC); Dementia in other diseases classified elsewhere, unspecified severity, without behavioral disturbance, psychotic disturbance, mood disturbance, and anxiety (CMS/HCC); Major depressive disorder, recurrent, moderate (CMS/HCC); Acute embolism and thrombosis of right peroneal vein (CMS/HCC); Prostate CA (CMS/HCC); Chronic systolic heart failure (CMS/HCC) Start: 09-16-2023 End: 09-16-2023 ambulatory Alexei Van Other [facility] Other Start: 09-16-2023 Telephone encounter Alexei Tej[facility] Start: 09-02-2023 End: 09-03-2023 ambulatory [facility] Start: 09-02-2023 End: 09-02-2023 Subsequent hospital visit by physician Farzana Griffin Echo/Vasc Room 2 [facility] Comment on above: Abnormal EKG; Sleep apnea, unspecified type; Permanent atrial fibrillation (CMS/HCC); Shortness of breath Start: 09-02-2023 End: 09-02-2023 Patient encounter procedure DO Shanique Schwab Work Phone: [facility] Start: 09-02-2023 End: 09-02-2023 ambulatory DO Shanique Schwab Work Phone: [facility] Work Phone: Start: 08-30-2023 End: 08-30-2023 Office outpatient new 60 minutes Rosemary Cartagena MD Work Phone: [facility] Comment on above: Permanent atrial fib rillation (CMS/HCC) (Primary Dx); ICD (implantable cardioverter-defibrillator) in place; Sleep apnea, unspecified type; Abnormal EKG; Hx of coronary artery bypass graft; Coronary artery disease, unspecified vessel or lesion type, unspecified whether angina present, unspecified whether [place] or transplanted heart; USP 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; Shortness of breath; History of stroke; Benign prostatic hyperplasia with lower urinary tract symptoms, symptom details unspecified; Ischemic cardiomyopathy; Fatigue, unspecified type; Other specified diabetes mellitus with other specified complication, unspecified whether chcf insulin use (CMS/HCC) Start: 08-30-2023 End: 08-30-2023 ambulatory [facility] Start: 08-12-2023 End: 08-12-2023 ambulatory Alexei Van Other [facility] Other Start: 08-12-2023 Telephone encounter Alexei STONE [facility] Start: 04-01-2023 End: 04-01-2023 ambulatory Alexei Van Other [facility] Other Start: 04-01-2023 Patient encounter procedure Alexei BARROSO [facility] Start: 11-30-2022 End: 11-30-2022 ambulatory DO Shanique Schwab Work Phone: [facility] Work Phone: Start: 11-30-2022 End: 11-30-2022 Patient encounter procedure DO Shanique Schwab Work Phone: [facility]-Ultrasound Cntr for Breast Car Start: 08-27-2022 Telephone encounter Alexei STONE [facility] Start: 08-27-2022 End: 08-27-2022 ambulatory ALEXEI VAN Facility:[facility] Start: 08-25-2022 End: 08-25-2022 ambulatory Alexei Van Other [facility] Other Start: 08-25-2022 Telephone encounter Alexei STONE [facility] Start: 05-12-2022 End: 05-12-2022 ambulatory Ryder Pollack Other [facility] Other Start: 05-12-2022 Telephone encounter Ryder Pollack [facility] Start: 03-11-2022 End: 03-11-2022 ambulatory Alexei Van Other [facility] Other Start: 03-11-2022 Patient encounter procedure Alexei Van [facility] Start: 12-25-[address] SHANIQUE SCHWAB Facil ity:[facility] Start: 12-16-2021 End: 12-16-2021 ambulatory ALEXEI VAN Facility:[facility] Start: 12-15-2021 End: 12-15-2021 ambulatory Alexei Van Other [facility] Other Start: 12-15-2021 Telephone encounter Alexei [facility]ONE [facility] Start: 11-26-2021 End: 11-27-[address] SHANIQUE SCHWAB Facility:[facility] Start: 09-18-2021 End: 10-28-2021 ambulatory ALBIN BABIN Facility:[facility] Start: 09-02-2021 End: 09-02-2021 ambulatory Osvaldo Maciel Other [facility] Other Start: 09-02-2021 Office outpatient vi sit 25 minutes Osvaldo Maciel [facility] Neuro[facility] Start: 08-25-2021 End: 08-25-2021 ambulatory Abdon Jackman Other [facility] Other Start: 08-25-2021 Office outpatient vi sit 25 minutes Abdon Jackman [facility] Start: 07-24-2021 End: 07-24-2021 ambulatory Osvaldo Maciel Other [facility] Other Start: 07-24-2021 Office outpatient ne w 45 minutes Osvaldo Maciel [facility] Neuro[facility] Start: 07-03-2021 Office outpatient vi sit 25 minutes Ryder Pollack [facility] Start: 07-01-2021 Telephone encounter Abdon burrell [facility] Start: 06-30-2021 Office outpatient vi sit 40 minutes Abdon Augustina [facility] Start: 06-25-2021 Telephone encounter Glenda Guillen [facility] Start: 06-24-2021 (Procedure) Short Ryder Ranjeet [facility] Start: 06-17-2021 Telephone encounter Ryder Pollack [facility] Start: 06-16-2021 Office outpatient vi sit 25 minutes Ryder Pollack [facility] Start: 06-16-2021 Telephone encounter Ryder Pollack [facility] Start: 06-12-2019 End: 06-13-2019 Patient encounter procedure RAÚL QUINTERO [facility] Start: 06-12-2019 End: 06-13-2019 Subsequent hospital visit by physician Raúl Quintero Work Phone: [facility] CAR 2 Comment on above: S/P ICD (internal ca rdiac defibrillator) procedure Start: 01-17-2018 End: 01-20-2018 Ambulatory FABIANO [facility] Procedures Date Procedure Procedure Detail Performing Clinician Start: 02-18-2024 CT of head with contrast DO Shanique buchanan Work Phone: Start: 01-31-2024 FOLLOW UP IN CARDIOLOGY ROSEMARY CARTAGENA Start: 12-22-2023 FOLLOW UP IN CARDIOLOGY ROSEMARY CARTAGENA Start: 12-06-2023 FOLLOW UP IN CARDIOLOGY ROSEMARY MCKEONAN Start: 10-25-2023 FOLLOW UP IN CARDIOLOGY ROSEMARY MCKEONAN Start: 09-02-2023 TRANSTHORACIC ECHO (TTE) COMPLETE ROSEMARYERICK CARTAGENA Start: 09-02-2023 Echo tthrc r-t 2d w/wom-mode compl spec&colr d Rosemary Cartagena MD Work Phone: Start: 08-30-2023 History of coronary artery bypass grafting Hx of coronary artery bypass graft Rosemary Cartagena MD Work Phone: Start: 08-30-2023 ECG 12-LEAD ROSEMARY CARTAGENA Start: 08-30-2023 Ecg routine ecg w/least 12 lds w/i&r Rosemary Cartagena MD Work Phone: Start: 11-30-2022 Ultrasonography of bilateral breasts Shanique Justin Work Phone: Start: 06-13-2019 Gluc bld gluc mntr dev cleared fda spec home use RAÚL QUINTERO Start: 06-13-2019 PULSE OXIMETRY, CONTINUOUS RAÚL QUINTERO Start: 06-13-2019 Glucose blood reagent strip RAÚL QUINTERO Start: 06-13-2019 Radiologic exam chest 2 views RAÚL QUINTERO Start: 06-13-2019 Glucose blood reagent strip Raúl Quintero Work Phone: Start: 06-13-2019 DISCHARGE PATIENT RAÚL QUINTERO Start: 06-13-2019 DIET CARDIAC RAÚL QUINTERO Start: 06-13-2019 Glucose blood reagent strip RAÚL QUINTERO Start: 06-13-2019 ICD FORM RAÚL QUINTERO Start: 06-13-2019 Gluc bld gluc mntr dev cleared fda spec home use RAÚL QUINTERO Start: 06-13-2019 INITIATE OXYGEN THERAPY PROTOCOL RAÚL QUINTERO Start: 06-13-2019 PULSE OXIMETRY, CONTINUOUS RAÚL QUINTERO Start: 06-13-2019 Glucose blood reagent strip Raúl Quintero Work Phone: Start: 06-13-2019 ICD FORM Hpf Scanning Start: 06-13-2019 Assay of magnesium RAÚL QUINTERO Start: 06-13-2019 Basic metabolic panel calcium total RAÚL QUINTERO Start: 06-13-2019 Blood count complete automated AMEER KANANCY Start: 06-13-2019 Hemoglobin glycosylated a1c AMEER AKANKSHA Start: 06-13-2019 Gluc bld gluc mntr dev cleared fda spec home use AMEER AKANKSHA Start: 06-13-2019 PULSE OXIMETRY, CONTINUOUS AMEER KANANCY Start: 06-13-2019 Assay of magnesium Clement Song Work Phone: Start: 06-13-2019 Basic metabolic panel calcium total Clement Song Work Phone: Start: 06-13-2019 Blood count complete automated Clement Song Work Phone: Start: 06-13-2019 Hemoglobin glycosylated a1c Clement Song Work Phone: Start: 06-13-2019 ACTIVITY TOLERATED AMMARCELINOR AKANKSHA Start: 06-13-2019 DAILY WEIGHTS AMMARCELINOR AKANKSHA Start: 06-13-2019 INTAKE AND OUTPUT AMMARCELINOR AKANKSHA Start: 06-13-2019 PULSE OXIMETRY, CONTINUOUS AMEER AKANKSHA Start: 06-12-2019 Glucose blood reagent strip AMMARCELINOR AKANKSHA Start: 06-12-2019 Gluc bld gluc mntr dev cleared fda spec home use AMEER AKANKSHA Start: 06-12-2019 PULSE OXIMETRY, CONTINUOUS AMEER AKANKSHA Start: 06-12-2019 Glucose blood reagent strip Ammarcelinor Akanksha Work Phone: Start: 06-12-2019 Glucose blood reagent strip AMMARCELINOR AKANKSHA Start: 06-12-2019 PULSE OXIMETRY, CONTINUOUS AMMARCELINOR AKANKSHA Start: 06-12-2019 Radiologic exam chest single view AMMARCELINOR AKANKSHA Start: 06-12-2019 Gluc bld gluc mntr dev cleared fda spec home use AMEER AKANKSHA Start: 06-12-2019 NOTIFY PHYSICIAN (SPECIFY) ARÚL AKANKSHA Start: 06-12-2019 PLACE INTERMITTENT PNEUMATIC COMPRESSION DEVICE AMMARCELINOR AKANKSHA Start: 06-12-2019 FULL CODE RAÚL QUINTERO Start: 06-12-2019 INITIATE OXYGEN THERAPY PROTOCOL AMBRY AKANKSHA Start: 06-12-2019 INTAKE AND OUTPUT AMMARCELINOR AKANKSHA Start: 06-12-2019 NURSING COMMUNICATION AMBRY AKANKSHA Start: 06-12-2019 PULSE OXIMETRY, CONTINUOUS RAÚL QUINTERO Start: 06-12-2019 TELEMETRY MONITORING RAÚL QUINTERO Start: 06-12-2019 VITAL SIGNS RAÚL QUINTERO Start: 06-12-2019 Glucose blood reagent strip Raúl Quintero Work Phone: Start: 06-12-2019 PATIENT STATUS (FROM ED OR OR/PROCEDURAL) RAÚL QUINTERO Start: 06-12-2019 TELEMETRY MONITORING RAÚL QUINTERO Start: 06-12-2019 Radiologic exam chest single view Clement Zuleta Work Phone: Start: 06-12-2019 Blood count hemoglobin RAÚL QUINTERO Start: 06-12-2019 Chloride other source RAÚL QUINTERO Start: 06-12-2019 CREATININE W/GFR POINT OF CARE RAÚL QUINTERO Start: 06-12-2019 Gluc bld gluc mntr dev cleared fda spec home use RAÚL QUINTERO Start: 06-12-2019 Potassium serum plasma/whole blood RAÚL QUINTERO Start: 06-12-2019 Sodium serum plasma or whole blood RAÚL QUINTERO Start: 06-12-2019 VERIFY INFORMED CONSENT RAÚL QUINTERO Start: 06-12-2019 POC CHEMISTRY (NA,K,ICA,GLU,CALC HCT/HGB,LACTATE,CREA,CL) RÚAL QUINTERO Start: 06-12-2019 Blood count hemoglobin Raúl Quintero Work Phone: Start: 06-12-2019 Chloride [Moles/Vol] Raúl Quintero Work Phone: Start: 06-12-2019 CREATININE W/GFR POINT OF CARE Raúl Quintero Work Phone: Start: 06-12-2019 Gluc bld gluc mntr dev cleared fda spec home use Raúl Quintero Work Phone: Start: 06-12-2019 Potassium [Moles/Vol] Raúl Quintero Work Phone: Start: 06-12-2019 Sodium [Moles/Vol] Raúl Quintero Work Phone: Start: 06-12-2019 R & l hrt cath w/njx l ventriculog img s&i RAÚL QUINTERO Start: 01-17-2018 Radiologic examination knee 3 views FABIANO WILL Appendectomy Anabel Orzech Cardiac pacemaker, d evice (physical object) Anabel Orzech Cholecystectomy Anabel OrZaiseoulc h Colonoscopy Anabel Orzech Extraction of cataract Auror a Orzech History of coronary artery bypass grafting Hx of coronary artery bypass graft Rosemary Cartagena MD Work Phone: History of coronary artery bypass grafting Anabel Orzech Implantation of elec tronic stimulator into bladder Anabel Orzech Three dimensional ex ternal beam radiation therapy Anabel OrZipwhip Total knee replacement Auror a Orzech Transrectal needle b iopsy of prostate Anabel NickoZipwhip Plan of Treatment Date Care Activity Detail Author Start: 07-21-2031 DTaP/Tdap/Td Vaccines (2 - Tdap) DTaP/Tdap/Td Vaccines (2 - Tdap) [facility] Start: 09-02-2024 Echocardiography Echocardiogram [facility] Start: 05-14-2024 Influenza vaccination Influenza Vaccine (Season Ended) [facility] Start: 02-28-2024 End: 02-28-2024 Patient encounter procedure 02/28/2024 1:45 PM EDT Office Visit [facility] [address] [facility] [address] [place] [address] Rosemary Cartagena MD [address] [place] [address] [address] [place], [place] [id number] [facility] Start: 01-31-2024 End: 01-31-2024 Patient encounter procedure 01/31/2024 2:30 PM EDT Office Visit [facility] [address] [facility] [address] [place] [address] [facility], WOOD CARVING LATHE OPERATOR-PICKLING DRUM OPERATOR [address] [facility] [address] [place] [address] [facility] Start: 12-29-2023 End: 12-29-2023 Patient encounter procedure 12/29/2023 1:30 PM EDT Office Visit [address] [place] [address] [facility], WOOD CARVING LATHE OPERATOR-PICKLING DRUM OPERATOR [address] [facility] [address], [address] [place] [address] [facility] Start: 12-22-2023 End: 12-21-2024 Basic metabolic 2000 panel - Serum or Plasma Basic Metabolic Panel Lab Routine Ischemic cardiomyopathy Expected: 12/22/2023 (Approximate), Expires: 12/21/2024 [facility] Service Area Work Phone: Comment on above: Expected: 12/22/2023 (Approximate), Expi res: 12/21/2024 Start: 12-03-2023 [facility] Start: 11-24-2023 End: 11-24-2023 Patient encounter procedure 11/24/2023 2:00 PM EDT Office Visit [address] [place] [address] [facility], WOOD CARVING LATHE OPERATOR-PICKLING DRUM OPERATOR [address] [facility] [address], [address] [place] [address] [facility] Start: 11-08-2023 End: 10-25-2024 Basic metabolic 2000 panel - Serum or Plasma Basic Metabolic Panel Lab Routine Ischemic cardiomyopathy 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 Medication course changed Expected: 11/08/2023 (Approximate), Expires: 10/25/2024 [facility] Service Area Work Phone: Comment on above: Expected: 11/08/2023 (Approximate), Expi res: 10/25/2024 Start: 10-25-2023 End: 10-25-2023 Patient encounter procedure 10/25/2023 2:15 PM EST Office Visit [facility] [address] [place] [address] [address] [place] [address] Rosemary Cartagena MD [address] [place] [address] [address] [place] [address] [facility] Start: 09-02-2023 End: 09-02-2023 Patient encounter procedure 09/02/2023 1:30 PM EST Appointment Mariama [address] [place] [address] [facility] Start: 08-30-2023 End: 08-30-2024 CBC panel - Blood by Automated count CBC Lab Routine USP 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 Expected: 08/30/2023 (Approximate), Expires: 08/30/2024 [facility] Work Phone: Comment on above: Expected: 08/30/2023 (Approximate), Expi res: 08/30/2024 Start: 08-30-2023 End: 08-30-2024 Comprehensive metabolic 2000 panel - Serum or Plasma Comprehensive Metabolic Panel Lab Routine Hx of coronary artery bypass graft Coronary artery disease, unspecified vessel or lesion type, unspecified whether angina present, unspecified whether [place] or transplanted heart Sleep apnea, unspecified type Expected: 08/30/2023 (Approximate), Expires: 08/30/2024 [facility] Service Area Work Phone: Comment on above: Expected: 08/30/2023 (Approximate), Expi res: 08/30/2024 Start: 08-30-2023 End: 08-30-2024 Hemoglobin A1c/Hemoglobin.total in Blood Hemoglobin A1C Lab Routine Shortness of breath History of stroke Benign prostatic hyperplasia with lower urinary tract symptoms, symptom details unspecified Ischemic cardiomyopathy Other specified diabetes mellitus with other specified complication, unspecified whether lobsterman insulin use ([facility]) Expected: 08/30/2023 (Approximate), Expires: 08/30/2024 [facility] Work Phone: Comment on above: Expected: 08/30/2023 (Approximate), Expi res: 08/30/2024 Start: 08-30-2023 End: 08-30-2024 Lipid 1996 panel - Serum or Plasma Lipid Panel Lab Routine 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 Coronary artery disease, unspecified vessel or lesion type, unspecified whether angina present, unspecified whether [place] or transplanted heart Sleep apnea, unspecified type Permanent atrial fibrillation (CMS/HCC) USP 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 Shortness of breath History of stroke Benign prostatic hyperplasia with lower urinary tract symptoms, symptom details unspecified Ischemic cardiomyopathy Expected: 08/30/2023 (Approximate), Expires: 08/30/2024 [facility] Work Phone: Comment on above: Expected: 08/30/2023 (Approximate), Expi res: 08/30/2024 Start: 08-30-2023 End: 08-30-2024 Natriuretic peptide B [Mass/volume] in Blood B-Type Natriuretic Peptide Lab Routine Abnormal EKG Hx of coronary artery bypass graft Coronary artery disease, unspecified vessel or lesion type, unspecified whether angina present, unspecified whether [place] or transplanted heart Permanent atrial fibrillation (CMS/HCC) Shortness of breath Ischemic cardiomyopathy Expected: 08/30/2023 (Approximate), Expires: 08/30/2024 [facility] Work Phone: Comment on above: Expected: 08/30/2023 (Approximate), Expi res: 08/30/2024 Start: 08-30-2023 End: 08-30-2024 Thyrotropin [Units/volume] in Serum or Plasma Thyroid Stimulating Hormone Lab Routine Shortness of breath History of stroke Benign prostatic hyperplasia with lower urinary tract symptoms, symptom details unspecified Ischemic cardiomyopathy Fatigue, unspecified type Expected: 08/30/2023 (Approximate), Expires: 08/30/2024 [facility] Work Phone: Comment on above: Expected: 08/30/2023 (Approximate), Expi res: 08/30/2024 Start: 08-30-2023 End: 08-30-2024 Triiodothyronine (T3) [Mass/volume] in Serum or Plasma Triiodothyronine, Total Lab Routine Shortness of breath History of stroke Benign prostatic hyperplasia with lower urinary tract symptoms, symptom details unspecified Ischemic cardiomyopathy Expected: 08/30/2023 (Approximate), Expires: 08/30/2024 [facility] Work Phone: Comment on above: Expected: 08/30/2023 (Approximate), Expi res: 08/30/2024 Start: 08-30-2023 End: 08-30-2025 US Heart Transthoracic Transthoracic Echo (TTE) Complete Echocardiography Routine Abnormal EKG Sleep apnea, unspecified type Permanent atrial fibrillation (CMS/HCC) Shortness of breath Expected: 08/30/2023 (Approximate), Expires: 08/30/2025 [facility] Work Phone: Comment on above: Expected: 08/30/2023 (Approximate), Expi res: 08/30/2025 Start: 07-25-2023 Screening for osteoporosis Bone Density Scan [facility] Start: 05-14-2023 COVID-19 Vaccine ( season) COVID-19 Vaccine ( season) [facility] Start: 05-14-2023 Influenza vaccination Influenza Vaccine (#1) [facility] Start: 01-02-2023 Glaucoma screening Diabetes: Retinopathy Screening [facility] Start: 07-25-2022 Screening for osteoporosis Bone Density Scan [facility] Start: 07-22-2021 DTaP/Tdap/Td Vaccines (1 - Tdap) DTaP/Tdap/Td Vaccines (1 - Tdap) [facility] Start: 06-12-2020 Creatinine monitoring Creatinine monitoring [place], [place] Start: 06-12-2020 Potassium monitoring Potassium monitoring [place], [place] Start: 05-14-2019 Influenza vaccination Flu vaccine (#1) [place] Start: 03-05-2019 Annual Wellness Visit (AWV) Annual Wellness Visit (AWV) [place] Start: 12-19-2007 Pneumococcal 65+ years Vaccine (1 of 2 - PCV13) Pneumococcal 65+ years Vaccine (1 of 2 - PCV13) [place] Start: 1992 Shingles Vaccine (1 of 2) Shingles Vaccine (1 of 2) [facility] Start: 1992 Zoster Vaccines (1 of 2) Zoster Vaccines (1 of 2) [facility] Start: 1961 DTaP/Tdap/Td vaccine (1 - Tdap) DTaP/Tdap/Td vaccine (1 - Tdap) [facility] [place] Start: 1961 Urine screening for protein Diabetes: Urine Protein Screening [facility] Start: 1952 Diabetic foot examination Diabetes: Foot Exam [facility] Start: 1948 Pneumococcal Vaccine: 65+ Years (1 - PCV) Pneumococcal Vaccine: 65+ Years (1 - PCV) [facility] Start: 1948 Pneumococcal Vaccine: 65+ Years (1 of 2 - PCV) Pneumococcal Vaccine: 65+ Years (1 of 2 - PCV) [facility] Start: 06-19-1943 COVID-19 Vaccine (#1) COVID-19 Vaccine (#1) [facility] Start: 1942 Creatinine measurement Creatinine Level [facility] Start: 1942 Hemoglobin A1c measurement Diabetes: Hemoglobin A1C [facility] Start: 1942 Lipid panel Lipid Panel [facility] Start: 1942 Medicare Annual Wellness Visit Medicare Annual Wellness Visit (AWV) [facility] Start: 1942 Potassium measurement Potassium Level [facility] End: 06-12-2019 Cardiac catheterization Cardiac Catheterization Cardiac Cath Routine One Time for 1 Occurrences starting 06/12/2019 until 06/12/2019 [facility] Comment on above: One Time for 1 Occurrences starting 05/16 until 06/12/2019 Glucose measurement estimated from glycated hemoglobin [facility] Initiate Oxygen Ther apy Protocol Initiate Oxygen Therapy Protocol Respiratory Care Routine Daily until discontinued starting 06/12/2019 [facility] Comment on above: Daily until discontinued starting 2018 [facility] Comment on above: 4X Daily (AC & HS) until discontinued st arting 06/12/2019 As Needed until disc ontinued starting 06/12/2019 Pulse oximetry, continuous Pulse oximetry, continuous Respiratory Care Routine Every 4hr until discontinued starting 06/12/2019 [place], [place] Comment on above: Every 4hr until discontinued starting XR CHEST STANDARD (2 VW) XR CHES T STANDARD (2 VW) Imaging Routine 06/13/2019 10:36 AM EDT [place] Immunizations Immunization Date Immunization Notes Care Provider Fa amada 07-21-2021 diphtheria, tetanus toxoids and acellular pertussis vaccine Osvaldo Raheem Other [employer]Wait Other 07-21-2021 diphtheria, tetanus toxoids and acellular pertussis vaccine, unspecified formulation DO Shanique Schwab Work Phone: [facility] 06-13-2021 Flu Vaccine - Adult DO Redd hilario Justin Work Phone: [facility] 06-13-2021 influenza, seasonal, injectable DO Shanique Schwab Work Phone: [facility] 11-03-2020 COVID-19 mRNA, Comirnaty (Pfizer) DO Shanique Schwab Work Phone: [facility] 10-13-2020 COVID-19 mRNA, Comirnaty (Pfizer) DO Shanique Schwab Work Phone: [facility] 07-14-2011 influenza virus vaccine, unspecified formulation Ameer Jacquenancy [place], [place] Payers Date Payer Category Payer [employer] ( and others) FOR LIFE [id number] 2022-Present [address] [place] [address] [id number] 2018 Medicare MEDICARE MEDICAR E PART A AND B xxxxxxxxxxx 2018-Present [phone] [address] [address] [place] [address] xxxxxxxxxxx [id number] 2016 [employer] ( and others) FOR LIFE MEDICARE SUPP xxxxxxxxx 2016-Present C/O PGBA/ [address] [place] [address] xxxxxxxxx [id number] 2014 Medicare [id number] 2007 Medicare MEDICARE MEDICAR E PART A AND B [id number] 2007-Present [address] [place] [address] [id number] 1959 [employer] ( and others) [id number] 1959 Medicare [id number] 1959 Self-pay [id number] 1942 Unknown [id number] 2.16.840.1.655257.3.579.2 .175 1942 Unknown [id number] 2.16.840.1.122413.3.579.2 .593 1942 Unknown [id number] 2.16.840.1.169828.3.579.2 .593 1942 Unknown [id number] 2.16.840.1.301557.3.579.2 .593 1942 Unknown [id number] 2.16.840.1.178293.3.579.2 .593 1942 Unknown [id number] 2.16.840.1.080932.3.579.2 .593 1942 Unknown [id number] 2.16.840.1.696398.3.579.2 .593 1942 Unknown [id number] 2.16.840.1.732886.3.579.2 .1246 1942 Unknown [id number] 2.16.840.1.562048.3.579.2 .1259 1942 Unknown [id number] 2.16.840.1.459652.3.579.2 .1259 1942 Unknown [id number] 2.16.840.1.406498.3.579.2 .1244 1942 Unknown [id number] 2.16.840.1.155589.3.579.2 .124 1942 Unknown [id number] 2.16.840.1.810477.3.579.2 .124 1942 Unknown [id number] 2.16.840.1.367158.3.579.2 .4 1942 Unknown [id number] 2.16.840.1.651864.3.579.2 .1243 1942 Unknown [id number] 2.16.840.1.863328.3.579.2 .1244 1942 Unknown [id number] 2.16.840.1.690782.3.579.2 .727 1942 Unknown [id number] 2.16.840.1.827757.3.579.2 .727 Unknown [id number] 2.16.840.1.560784.3.579.2 .531 Unknown [id number] 2.16.840.1.485365.3.579.2 .531 Unknown [id number] 2.16.840.1.434591.3.579.2 .531 Unknown [id number] 2.16.840.1.797952.3.579.2 .531 Unknown [id number] 2.16.840.1.596836.3.579.2 .531 Unknown [id number] Social History Date Type Detail Facility Start: 06-12-2019 End: 04-25-2024 Tobacco smoking status [facility] Former smoker [facility] Start: 09-13-1958 End: 09-13-2011 History of tobacco use [facility]: [facility] End: 09-13-2011 History of tobacco use [facility]arette [facility] Start: 06-12-2019 End: 12-22-2023 Cigarettes smoked current (pack per day) - Reported [facility] Start: 06-12-2019 End: 12-22-2023 Alcohol intake No [facility] Start: 05-06-2015 Tobacco Comment quit x [address] [facility] Start: 1940 [facility] [place] [place] Start: 1940 Sex Assigned At Male F [facility] Start: 08-30-2023 Tobacco use and exposure Smokeless tobacco non-user [facility] Work Phone: Start: 08-30-2023 End: 12-22-2023 Alcohol intake Current drinker of alcohol (finding) [facility] Work Phone: Start: 08-30-2023 Alcohol Comment 1 YEARLY [facility] Work Phone: Start: 08-20-2023 End: 12-22-2023 Exposure to SARS-CoV-2 (event) Not sure [facility] Tobacco smoking status No Smokin g Status Entered [facility] [place] Medical Equipment Procedure Code Equipment Code Equipment Origin al Text Equipment Identifier Dates Cement Barium Radiopq Full 40gr [id number] Start: 12-02-2017 Cement Barium Radiopq Full 40gr [id number] Start: 12-02-2017 Impl Knee X3 Patella [id number] Star t: 12-02-2017 Impl Capped Knee Advanced _imp Start: 12-02-2017 Impl Knee Fem Co mp Cmntd Sz 6 _imp Start: 12-02-2017 Impl Knee Patell a Asym X3 [id number] Start: 12-02-2017 Impl Knee Tib Baseplt Prime Sz 6 _imp Start: 12-02-2017 Impl Knee Tib In srt Postr X3 Sz6 11mm [id number] Start: 12-02-2017 Stimulator Neuro Pulse [id number] Start: 04-27-2017 Pacemaker 10196_exp Pacemaker 10196_imp Lt Knee 10197_exp Lt Knee 10197_imp Goals Date Patient Goal Desired Activity /State Functional Status Date Assessment Result Facility 04-25-2024 Functional Status N/A [facility] Clinical Notes 06-16-2021 to 05-01-2024 CHARLI Hollingsworth - 12/22/2023 2:00 PM EDTPatient InstructionsCHARLI Hollingsworth - 12/06/2023 3:00 PM EDTPatient InstructionsRosemary Cartagena MD - 10/25/2023 2:15 PM ESTPatient Instructions Note Date & Type Note Facility 05-01-2024 Note Urology Office/Clini c Note Chief Complaint [facility], and hx prostate cancer. HPI Staff 83 year old male new patient referred for incontinence, hx of prostate cancer. Dr. Schwab is PCP per 09/14/23 [place] note. Was seeing urologist in [place] but hasn't sen them for 2 years. Prostate cancer was treated with radiation. A1c 12/03/23: 6.6 04/13/24: BUN- 32, Creatinine- 1.55, E GFR-43. PSA: 08/23/23: 1.03 08/03/22: 0.77 01/02/22:0.8 12/30/20:0.9 Patient c/o of urge incontinence and incontinence without awareness. Patient denies any nocturia, denies blood, denies dysuria. History of Present Illness I have reviewed and verified the staff HPI to be accurate for this encounter. Portions of this record may have been created with voice recognition artificial intelligence software, specifically REscour, Habitissimo and or Li[employer]. Substitutions may have occurred due to the inherent limitations of voice recognition and artificial intelligence software. Review of Systems PHQ Score Initial Depression Screen Score: 0 SCORE Physical Exam Vitals & Measurements HR: 63(Peripheral) RR: 18 BP: 110/56 HT: 66 in HT: 167 cm WT: 72 kg WT: 158.4 lb BMI: 25.82 General: Well developed, well nourished, in no acute distress. Genitourinary: Flank Pain: none. Bladder: nonpalpable. Assessment/Plan 1. History of prostate cancer (Z85.46: Personal history of malignant neoplasm of prostate) Patient unsure of when he was diagnosed with prostate cancer. Notes he had [address] Galvez in [place]. No recent PSA or cancer monitoring. Patient notes that he is very nervous about recurrence. Denies any recent worsening urinary symptoms or gross hematuria. He would like to continue PSA monitoring. -Records request for Dr. Galvez -PSA ordered today, will call patient with results. 2. Urinary incontinence (R32: Unspecified urinary incontinence) UUI, since radiation for prostate CA Has InterStim, 2013 states that it very slightly improved his urinary symptoms. Battery now , patient does not wish to pursue that any further d/t how tedious it was for minimal improvement. Discussed radiation cystitis versus possible prostate obstruction. Need to assess possible obstruction before considering bladder meds. -Schedule cystoscopy -OAB med in the future? 3. Benign prostatic hyperplasia with outflow obstruction (N40.1: Benign prostatic hyperplasia with lower urinary tract symptoms) IPSS 18, moderate symptoms of BPH. Patient is mostly dissatisfied with his urinary symptoms mostly related to his urge incontinence. We discussed male urologic anatomy including the prostate may be contributing to his urinary symptoms. We discussed how potential prostate obstruction affects long-term bladder health and compliance. We discussed alpha-paris medications to help with urinary symptoms, possible side effects. I did advise patient that these medications do not protect the bladder while alleviating some urinary symptoms. In order to assess degree of bladder outlet obstruction and bladder health, discussed further evaluation with cystoscopy. The risks and benefits for cystoscopy have been discussed. The risks include bleeding, infection, and irritation of the bladder and urinary channel, among others. The patient, after being informed of procedural details and after questions have been answered, wishes to proceed. Will order Local anesthesia. Patient is currently taking tamsulosin 0.4 mg daily. -Continue tamsulosin -Schedule cystoscopy 4. Flank pain (R10.9: Unspecified abdominal pain) More suspicious for musculoskeletal. bilateral, worse with movement -KUB/R US to rule out stones 5. History of kidney stones (Z87.442: Personal history of urinary calculi) Patient notes that he does have a remote history of kidney stones, no recent stone event that he is aware of. Discussed generalized stone prevention - pt encouraged to increase fluid intake so that he/she producing 2.5L of urine daily. Add 1/4 cup of lemon juice to water throughout the day or can also drink sugar free lemonade or clear soda. Avoid dark shaggy. Restrict sodium intake. Restrict animal protein. 6. Antiplatelet or antithrombotic long-term use (Z79.02: USP (current) use of antithrombotics/antiplatelets) On Plavix Follow-up With When Contact Information CINTHYA SANCHEZ, Petr Richard, URL [address] [address]- Additional Instructions: schedule cysto Patient Education Prostate Cancer Benign Prostatic Hyperplasia Problem List/Past Medical History Ongoing Acute kidney injury Anemia Anxiety Arthritis Atrial fibrillation Benign prostatic hyperplasia with outflow obstruction Cerebrovascular accident Chronic kidney disease Chronic obstructive pulmonary disease Chronic systolic heart failure Congestive heart failure Deafness Dementia Diabetes Essen (more content not included)... [facility] Comment on above: Result Comment: Elec tronically Signed By: BARB Salinas APRN, [place] X\.br\Date and Time Signed: 05/01/24 08:58 EDT 05-01-2024 Note Patient Education Oncology Prostate Cancer The prostate is a small gland that produces fluid that makes up semen (seminal fluid). It is located below the bladder in men, in front of the rectum. Prostate cancer is the abnormal growth of cells in the prostate gland. What are the causes? The exact cause of this condition is not known. What increases the risk? You are more likely to develop this condition if: ? You are 65 years of age or older. ? You have a family history of prostate cancer. ? You have a family history of breast and ovarian cancer. ? You have genes that are passed from parent to child (inherited), such as BRCA1 and BRCA2. ? You have Holden syndrome. men and men of descent are diagnosed with prostate cancer at higher rates than other men. The reasons for this are not well understood and are likely due to a combination of genetic and environmental factors. What are the signs or symptoms? Symptoms of this condition include: ? Problems with urination. This may include: ? A weak or interrupted flow of urine. ? Trouble starting or stopping urination. ? Trouble emptying the bladder all the way. ? The need to urinate more often, especially at night. ? Blood in urine or semen. ? Persistent pain or discomfort in the lower back, lower abdomen, or hips. ? Trouble getting an erection. ? Weakness or numbness in the legs or feet. How is this diagnosed? This condition can be diagnosed with: ? A digital rectal exam. For this exam, a health care provider inserts a gloved finger into the rectum to feel the prostate gland. ? A blood test called a prostate-specific antigen (PSA) test. ? A procedure in which a sample of tissue is taken from the prostate and checked under a microscope (prostate biopsy). ? An imaging test called transrectal ultrasonography. Once the condition is diagnosed, tests will be done to determine how far the cancer has spread. This is called staging the cancer. Staging may involve imaging tests, such as a bone scan, CT scan, PET scan, or MRI. Stages of prostate cancer The stages of prostate cancer are as follows: ? Stage 1 (I). At this stage, the cancer is found in the prostate only. The cancer is not visible on imaging tests, and it is usually found by accident, such as during prostate surgery. ? Stage 2 (II). At this stage, the cancer is more advanced than it is in stage 1, but the cancer has not spread outside the prostate. ? Stage 3 (III). At this stage, the cancer has spread beyond the outer layer of the prostate to nearby tissues. The cancer may be found in the seminal vesicles, which are near the bladder and the prostate. ? Stage 4 (IV). At this stage, the cancer has spread to other parts of the body, such as the lymph nodes, bones, bladder, rectum, liver, or lungs. Prostate cancer grading Prostate cancer is also graded according to how the cancer cells look under a microscope. This is called the Earl score and the total score can range from 6?10, indicating how likely it is that the cancer will spread (metastasize) to other parts of the body. The higher the score, the greater the likelihood that the cancer will spread. ? Earl 6 or lower: This indicates that the cancer cells look similar to normal prostate cells (well differentiated). ? Earl 7: This indicates that the cancer cells look somewhat similar to normal prostate cells (moderately differentiated). ? Earl 8, 9, or 10: This indicates that the cancer cells look very different than normal prostate cells (poorly differentiated). How is this treated? Treatment for this condition depends on several factors, including the stage of the cancer, your age, personal preferences, and your overall health. Talk with your health care provider about treatment options that are recommended for you. Common treatments include: ? Observation for early stage prostate cancer (active surveillance). This involves having exams, blood tests, and in some cases, more biopsies. For some men, this is the only treatment needed. ? Surgery. Types of surgeries include: ? Open surgery (radical prostatectomy). In this surgery, a larger incision is made to remove the prostate. ? A laparoscopic radical prostatectomy. This is a surgery to remove the prostate and lymph nodes through several small incisions. It is often referred to as a minimally invasive surgery. ? A robotic radical prostatectomy. This is laparoscopic surgery to remove the prostate and lymph nodes with the help of robotic arms that are controlled by the surgeon. ? Cryoablation. This is surgery to freeze and destroy cancer cells. ? Radiation treatment. Types of radiation treatment include: ? External beam radiation. This type aims beams of radiation from outside the body at the prostate to destroy cancerous cells. ? Brachytherapy. This type uses radioactive needles, seeds, wires, or tubes that are implanted into the prostate gla (more content not included)... [facility] 04-25-2024 Evaluation + Plan note Diagnostic Tests PendingPSA Total 04/25/24 [facility] 12-22-2023 History of Present illness Narrative Chief Complaint He is swelling up Reason for Visit 2 week follow up Patient presents to the office today for outpatient follow-up for medication change. Last evaluated in clinic by myself 2 weeks ago. At that time, increased Entresto 24/26 mg twice daily, place Lasix 20 mg and potassium 10 mill equivalents on hold. Labs and apparently were not obtained, they will obtain this week. Presents today ambulatory with steady gait. Accompanied by spouse Patient denies any hospitalizations or significant changes to interval medical history since last office follow-up. History of Present Illness Patient is an extremely pleasant 83-year-old with some mild neurocognitive decline. He presents to the office today with a 10 pound weight gain and increasing edema in his upper extremities and lower extremities. He denies any shortness of breath, he had no concerns ambulating in from the parking lot. He remains compliant with his BiPAP machine. reports that he is sleeping all the time . He does feel that maybe his depression is worsening and he will be following up with his psychiatrist next week. With initiation of Entresto he does feel like it made significant improvement in his dyspnea. Off of Lasix, has noted fluid retention. Patient reports that overall has no complaint(s) of chest pain, chest pressure/discomfort, dyspnea, and near-syncope Review of Systems Cardiovascular: Positive for leg swelling. Negative for chest pain, dyspnea on exertion, irregular heartbeat, near-syncope, orthopnea, palpitations, paroxysmal nocturnal dyspnea and syncope. Visit Vitals BP 120/50 (BP Location: Right arm, Patient Position: Sitting) Pulse 60 Ht 1.676 m (5' 6 ) Wt 88.5 kg (195 lb) BMI 31.47 kg/m Smoking Status Former BSA 2.03 m Physical Exam Vitals and nursing note reviewed. Constitutional: Appearance: Normal appearance. Cardiovascular: Rate and Rhythm: Normal rate. Rhythm irregularly irregular. Heart sounds: Normal heart sounds. Comments: B/L UE edema (? Third spacing) with 2+ radial pulse Trace b/l LE edema JVD not elevated Pulmonary: Effort: Pulmonary effort is normal. Breath sounds: Normal breath sounds. Musculoskeletal: Cervical back: Full passive range of motion without pain. Right lower leg: No edema. Left lower leg: No edema. Skin: General: Skin is cool. Neurological: Mental Status: He is alert and oriented to person, place, and time. Psychiatric: Attention and Perception: Attention normal. Mood and Affect: Mood normal. Behavior: Behavior is cooperative. Allergies Allergen Reactions Byetta [Exenatide] Unknown Codeine Unknown Demerol [Meperidine] Unknown Invokana [Canagliflozin] Unknown Victoza 2-Cruz [Liraglutide] Unknown Current Outpatient Medications Medication Instructions CALCIUM CARBONATE-VITAMIN D3 ORAL 1 capsule, oral, Daily RT carbidopa-levodopa (Sinemet) 10-100 mg tablet 0.5 tablets, oral, 3 times daily carboxymethylcellulose (Refresh Tears) 0.5 % ophthalmic solution 1 drop, Both Eyes, As needed carvedilol (COREG) 3.125 mg, oral, 2 times daily with meals cholecalciferol (Vitamin D-3) 5,000 Units tablet 1 tablet, oral, Daily clopidogrel (PLAVIX) 75 mg, oral, Daily Creon 36,000-114,000- 180,000 unit capsule,delayed release(DR/EC) capsule 2 capsules, oral, 3 times daily with meals DAILY MULTI-VITAMIN ORAL 1 capsule, oral, Daily diazePAM (VALIUM) 1 mg, oral, Every 6 hours PRN digoxin (LANOXIN) 125 mcg, oral, Daily donepezil (ARICEPT) 5 mg, oral, Nightly Eliquis 5 mg, oral, 2 times daily famotidine (PEPCID) 20 mg, oral, 2 times daily FERROUS SULFATE ORAL 325 mg, oral, 2 times daily furosemide (LASIX) 20 mg, oral, Daily insulin glargine (LANTUS) 14 Units, subcutaneous, Daily RT loperamide (IMODIUM) 2 mg, oral, Daily magnesium oxide (MAG-OX) 420 mg, oral, Daily memantine (NAMENDA) 28 mg, oral, Daily nitroglycerin (NITROSTAT) 0.4 mg, sublingual, Every 5 min PRN, May repeat dose every 5 minutes for up to 3 doses total. PARoxetine (PAXIL) 20 mg, oral, Every morning potassium chloride CR (Klor-Con) 10 mEq ER tablet 10 mEq, oral, Daily, Do not crush, chew, or split. sacubitriL-valsartan (Entresto) 24-26 mg tablet 1 tablet, oral, 2 times daily tamsulosin (Flomax) 0.4 mg 24 hr capsule 1 capsule, oral, Daily Assessment: From Dr. Cartagena last office visit with updated assessment today: Patient has chronic left heart failure, systolic, possibly systolic and diastolic, functional class 2 with improvement in TONG with initiation of Entresto. Presents today with fluid retention but no evidence of orthopnea or PND. Varying estimates of left ventricular ejection fraction most recent 35% echo August 2021 43% stress perfusion study August 2021 Cannot be on Farxiga or Jardiance because of history of pancreatitis. [place] [employer] Evera XT ICD May 2019, with a new 6935 RV lead at the reuse of the chronic 5076 atrial lead. QRS duration 96 ms when not paced, 180 ms when paced. not interested in pursing additional upgrade. Permanent atrial fibrillation on long-term anticoagulation with Eliquis. History of coronary artery bypass graft x 2, remote, rotational atherectomy and ROBERTO of LAD diagonal in 2015. Aug 2021 MPI no ischemia, inferior scar. Plan: Through informed decision making process incorporating patients unique circumstances, the following treatment plan will be initiated: 1. Prescription drug management of cardiovascular medication for efficacy, adherence to treatment, side effect assessment and polypharmacy. Current treatment clinically warranted and to continue with following modifications: - Resume lasix 20mg and KCL 10meq daily. For next 2 days take two tablets of each 2. Chem6 in 2 weeks 3. Return for follow-up; in the interim, contact the office if new symptoms arise. ONLINE MERCHANDISING COORDINATOR in one month [facility] Heart MSN, WOOD CARVING LATHE OPERATOR-PICKLING DRUM OPERATOR, PMHNP-BC [facility] Please excuse any errors in grammar or translation related to this dictation. Voice recognition software was utilized to prepare this document. documented in this encounter [facility] Work Phone: 12-22-2023 Instructions CHARLI Hollingsworth - 12/22/2023 2:00 PM EDT Please bring all medicines, vitamins, and herbal supplements with you when you come to the office. Prescriptions will not be filled unless you are compliant with your follow up appointments or have a follow up appointment scheduled as per instruction of your physician. Refills should be requested at the time of your visit. PLAN: Through informed decision making process incorporating patients unique circumstances, the following treatment plan will be initiated: 1. Prescription drug management of cardiovascular medication for efficacy, adherence to treatment, side effect assessment and polypharmacy. Current treatment clinically warranted and to continue with following modifications: - Resume lasix 20mg and KCL 10meq daily. For next 2 days take two tablets of each 2. Chem6 in 2 weeks 3. Return for follow-up; in the interim, contact the office if new symptoms arise. ONLINE MERCHANDISING COORDINATOR in one month documented in this encounter [facility] Work Phone: 12-06-2023 History of Present illness Narrative Chief Complaint I think I am fine Reason for Visit Patient presents to the office today for outpatient follow-up for medication change. Last evaluated in clinic by Dr. Cartagena 2 weeks ago. At that time Entresto 24/26 mg half tablet twice daily added to medical regimen along with digoxin 0.125 mg daily. Repeat potassium 4.2 and creatinine 1.25. Patient has been compliant with addition, denies any type of side effects. Presents today ambulatory with steady gait. Accompanied by spouse Patient denies any hospitalizations or significant changes to interval medical history since last office follow-up. History of Present Illness Patient remains an extremely pleasant 82-year-old gentleman with some mild neurocognitive decline and somewhat of a difficult historian. He reportedly has been compliant with addition of half dose Entresto denies any type of lightheadedness. His weight is down 5 pounds. He denies orthopnea or PND remains compliant with his BiPAP machine. He is fairly sedentary by choice likes to watch TV during the day, he did ambulate from the front of our office back to the exam room which is some very minimal shortness of breath. Occasionally he will sleep in the recliner due to back pain. He does report a clear mechanical fall that occurred a couple weeks ago where he missed the step coming out in the garage. Did not seek medical attention. Has some resolving ecchymosis on his left wrist and right knee. Once again denies any type of prodrome, no syncopal episode. It was clearly mechanical in nature. His is very active in the care of her . She follows his blood pressure regularly and systolic blood pressures usually in the 120s. Here in the office today his standing blood pressure was 116/64. He did not take his Lasix this morning. Remains compliant with anticoagulation with full dose Eliquis with age 82, creatinine 1.25 and weight 185 pounds. At appoint with Dr. Cartagena he had reported orthopnea and dyspnea on exertion. Orthopnea has currently resolved, and he has noted significant improvement in his dyspnea on exertion. Actually when I walked him out from the back exam room to the front relief salesperson there was no dyspnea noted with conversation. Patient reports that overall has no complaint(s) of chest pain, chest pressure/discomfort, claudication, dyspnea, and exertional chest pressure/discomfort Purpose of today's visit was to attempt update guideline directed medical therapy. At this time, will place Lasix on hold (he has had 5 pound diuresis with addition of half dose Entresto) and will attempt to increase to 24/26 mg twice daily of Entresto. Have discussed with the plan would be to initiate carvedilol in the morning and then check blood pressure in approximately 2 hours. If systolic blood pressure does remain greater than 120 would give Entresto 24/26mg. She will keep records of dosage and blood pressure then return to clinic in 2 weeks so we can make a final decision as to appropriate dosing of Entresto. Review of Systems Unable to perform ROS: Dementia Cardiovascular: Negative for chest pain, dyspnea on exertion, irregular heartbeat, leg swelling, near-syncope, orthopnea, palpitations, paroxysmal nocturnal dyspnea and syncope. Visit Vitals BP 112/64 (BP Location: Right arm, Patient Position: Sitting) Pulse 60 Ht 1.676 m (5' 6 ) Wt 83.9 kg (185 lb) BMI 29.86 kg/m Smoking Status Former BSA 1.98 m Physical Exam Constitutional: Appearance: Normal appearance. Cardiovascular: Rate and Rhythm: Normal rate and regular rhythm. Heart sounds: Murmur heard. Systolic murmur is present with a grade of 1/6. Friction rub present. Pulmonary: Effort: Pulmonary effort is normal. Breath sounds: Normal breath sounds. Abdominal: Palpations: Abdomen is soft. Musculoskeletal: Right lower leg: No edema. Left lower leg: No edema. Skin: General: Skin is warm and dry. Neurological: Mental Status: He is alert and oriented to person, place, and time. Psychiatric: Attention and Perception: Attention normal. Mood and Affect: Mood normal. Allergies Allergen Reactions Hermila [Fexofenadine] Unknown Byetta [Exenatide] Unknown Codeine Unknown Demerol [Meperidine] Unknown Invokana [Canagliflozin] Unknown Victoza 2-Cruz [Liraglutide] Unknown Current Outpatient Medications Medication Instructions CALCIUM CARBONATE-VITAMIN D3 ORAL 1 capsule, oral, Daily RT carbidopa-levodopa (Sinemet) 10-100 mg tablet 0.5 tablets, oral, 3 times daily carboxymethylcellulose (Refresh Tears) 0.5 % ophthalmic solution 1 drop, Both Eyes, As needed carvedilol (COREG) 3.125 mg, oral, 2 times daily with meals cholecalciferol (Vitamin D-3) 5,000 Units tablet 1 tablet, oral, Daily clopidogrel (PLAVIX) 75 mg, oral, Daily Creon 36,000-114,000- 180,000 unit capsule,delayed release(DR/EC) capsule 2 capsules, oral, 3 times daily with meals DAILY MULTI-VITAMIN ORAL 1 capsule, oral, Daily diazePAM (VALIUM) 1 mg, oral, Every 6 hours PRN digoxin (LANOXIN) 125 mcg, oral, Daily donepezil (ARICEPT) 5 mg, oral, Nightly Eliquis 5 mg, oral, 2 times daily famotidine (PEPCID) 20 mg, oral, 2 times daily FERROUS SULFATE ORAL 325 mg, oral, 2 times daily insulin glargine (LANTUS) 18 Units, subcutaneous, Daily RT loperamide (IMODIUM) 2 mg, oral, Daily loratadine (CLARITIN) 10 mg, oral, Daily magnesium oxide (MAG-OX) 420 mg, oral, Daily memantine (NAMENDA) 28 mg, oral, Daily nitroglycerin (NITROSTAT) 0.4 mg, sublingual, Every 5 min PRN, May repeat dose every 5 minutes for up to 3 doses total. PARoxetine (PAXIL) 20 mg, oral, Every morning sacubitriL-valsartan (Entresto) 24-26 mg tablet 1 tablet, oral, 2 times daily tamsulosin (Flomax) 0.4 mg 24 hr capsule 1 capsule, oral, Daily From Dr. Cartagena last office visit with updated assessment today: Patient has chronic left heart failure, systolic, possibly systolic and diastolic, functional class 2b with improvement in TONG with initiation of Entresto. Varying estimates of left ventricular ejection fraction most recent 35% echo August 2021 43% stress perfusion study August 2021 Cannot be on Farxiga or Jardiance because of history of pancreatitis. [employer] [employer] Evera XT ICD May 2019, with a new 6935 RV lead at the reuse of the chronic 5076 atrial lead. QRS duration 96 ms when not paced, 180 ms when paced. not interested in pursing additional upgrade. Permanent atrial fibrillation on long-term anticoagulation with Eliquis. One mechanical fall. History of coronary artery bypass graft x 2, remote, rotational atherectomy and ROBERTO of LAD diagonal in 2014. Aug 2021 MPI no ischemia, inferior scar. Plan: Through informed decision making process incorporating patients unique circumstances, the following treatment plan will be initiated: 1. Prescription drug management of cardiovascular medication for efficacy, adherence to treatment, side effect assessment and polypharmacy. Current treatment clinically warranted and to continue with following modifications: - Stop lasix and potassium - Increase Entresto to 25/26mg one tablet twice daily. Take blood pressure 2 hours after takes morning dose of coreg. If top number of blood pressure is greater than 120 give Entresto. 2. Return for follow-up; in the interim, contact the office if new symptoms arise. ONLINE MERCHANDISING COORDINATOR in 2 weeks Hosea Heart MSN, WOOD CARVING LATHE OPERATOR-PICKLING DRUM OPERATOR, PMHNP-BC [facility] Please excuse any errors in grammar or translation related to this dictation. Voice recognition software was utilized to prepare this document. documented in this encounter [facility] Work Phone: 12-06-2023 Instructions CHARLI Hollingsworth - 12/06/2023 3:00 PM EDT Please bring all medicines, vitamins, and herbal supplements with you when you come to the office. Prescriptions will not be filled unless you are compliant with your follow up appointments or have a follow up appointment scheduled as per instruction of your physician. Refills should be requested at the time of your visit. PLAN: Through informed decision making process incorporating patients unique circumstances, the following treatment plan will be initiated: 1. Prescription drug management of cardiovascular medication for efficacy, adherence to treatment, side effect assessment and polypharmacy. Current treatment clinically warranted and to continue with following modifications: - Stop lasix and potassium - Increase Entresto to 25/26mg one tablet twice daily. Take blood pressure 2 hours after takes morning dose of coreg. If top number of blood pressure is greater than 120 give Entresto. 2. Return for follow-up; in the interim, contact the office if new symptoms arise. ONLINE MERCHANDISING COORDINATOR in 2 weeks documented in this encounter [facility] Work Phone: 10-25-2023 History of Present illness Narrative Patient was most easily seen in August 2023 . H/Oatrial fibrillation coronary artery bypass graft obstructive sleep apnea XT MRI device implanted 2018. Do not have much in the way of records. Former smoker, quit 2 years ago. Denies chest pressure tightness or heaviness denies palpitations or ICD discharges Has been noticing shortness of breath, feels like he cannot get enough air, this is per who accompanies him to the office. Symptoms more prominent in the last 3 to 4 months. We ordered echocardiogram, enrolled patient in the device clinic, and ordered blood work. Could not uptitrate guideline directed medical therapy because of borderline blood pressure. Subjective : Does not report any chest discomfort pressure tightness or heaviness. Does not report palpitations does not report any bleeding diathesis. No falls. For sleep apnea, will be seeing Dr. Karen Woo. Complains of fatigue which may be related to his sleep apnea. Thyroid function is abnormal. Today we have removed to possibly inject on his heart failure therapy. History so Far : 1. Chronic systolic left heart failure, secondary to ischemic cardiomyopathy, LVEF 30% echo March 2019 2. Moderate mitral regurgitation with biatrial enlargement 3. Sick sinus syndrome dual-chamber pacemaker, revised to [employer] Evera XT ICD May 2019, with a new 6935 RV lead at the reuse of the chronic 5076 atrial lead. 4. Paroxysmal atrial fibrillation on long-term anticoagulation with Eliquis 5. Primary hypertension 6. Hyperlipidemia 7. Coronary artery bypass grafting SAMUEL to LAD SVG to PDA, both patent at last cardiac catheterization May 2007 8. Obstructive sleep apnea, with compliance to CPAP therapy followed by sleep medicine 9. Echocardiogram November 2011 LVEF 40% mild to moderate mitral and aortic insufficiency which improved compared to prior echocardiograms 10. Echocardiogram July 2020 LVEF 35% RVSP 41 mmHg mild mitral and tricuspid regurgitation mild aortic regurgitation 11. Echo August 2021 LVEF 35% 12. TIA December 2016 13.Rotational atherectomy and ROBERTO of the LAD diagonal area May 2015 14. Left upper extremity DVT 15. Stress Myoview August 2021-large inferior infarct LVEF 43% 11. 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 History of prostate cancer with seeds and radiation treatment 13. Insulin requiring diabetes 14. Short-term memory impairment Past Surgical History: He has a past surgical history that includes Appendectomy; Cholecystectomy; Coronary artery bypass graft; XR knee (Bilateral); Cataract extraction; and Prostate surgery. Objective Failed to redirect to the Timeline version of the REVFS SmartLink. Wt Readings from Last 3 Encounters: 10/25/23 86.2 kg (190 lb) 09/02/23 87.1 kg (192 lb) 08/30/23 87.1 kg (192 lb) Visit Vitals BP 118/62 (BP Location: Right arm, Patient Position: Sitting) Pulse 64 Ht 1.676 m (5' 6 ) Wt 86.2 kg (190 lb) BMI 30.67 kg/m Smoking Status Former BSA 2 m Physical Exam: Patient is awake alert oriented x3, no acute distress Lungs are clear, well-healed sternal scar of prior coronary artery bypass grafting is noted Heart sounds are regular without murmur rub or gallop Extremities show no edema Ambulates without assistance. Meds: Current Outpatient Medications Medication Instructions CALCIUM CARBONATE-VITAMIN D3 ORAL 1 capsule, oral, Daily RT carbidopa-levodopa (Sinemet) 10-100 mg tablet 0.5 tablets, oral, 3 times daily carboxymethylcellulose (Refresh Tears) 0.5 % ophthalmic solution 1 drop, Both Eyes, As needed carvedilol (COREG) 3.125 mg, oral, 2 times daily with meals cholecalciferol (Vitamin D-3) 5,000 Units tablet 1 tablet, oral, Daily clopidogrel (Plavix) 75 mg tablet 1 tablet, oral, Daily Creon 36,000-114,000- 180,000 unit capsule,delayed release(DR/EC) capsule 2 capsules, oral, 3 times daily with meals DAILY MULTI-VITAMIN ORAL 1 capsule, oral, Daily diazePAM (VALIUM) 1 mg, oral, Every 6 hours PRN donepezil (ARICEPT) 5 mg, oral, Nightly Eliquis 5 mg tablet 1 tablet, oral, 2 times daily famotidine (PEPCID) 20 mg, oral, 2 times daily FERROUS SULFATE ORAL 325 mg, oral, 2 times daily furosemide (Lasix) 20 mg tablet 1 tablet, oral, Daily with lunch insulin glargine (LANTUS) 18 Units, subcutaneous, Daily RT loperamide (IMODIUM) 2 mg, oral, Daily loratadine (CLARITIN) 10 mg, oral, Daily magnesium oxide (MAG-OX) 420 mg, oral, Daily memantine (NAMENDA) 28 mg, oral, Daily PARoxetine (PAXIL) 20 mg, oral, Every morning potassium chloride ER (Micro-K) 10 mEq ER capsule 1 capsule, oral, 4 times daily tamsulosin (Flomax) 0.4 mg 24 hr capsule 1 capsule, oral, Daily Allergies Allergen Reactions Hermila [Fexofenadine] Unknown Byetta [Exenatide] Unknown Codeine Unknown Demerol [Meperidine] Unknown Invokana [Canagliflozin] Unknown Victoza 2-Cruz [Liraglutide] Unknown LABS: No labs to review Patient Active Problem List Diagnosis Date Noted ICD (implantable cardioverter-defibrillator) in place 08/30/2023 Abnormal EKG 08/30/2023 Hx of coronary artery bypass graft 08/30/2023 CAD (coronary artery disease) 08/30/2023 Sleep apnea 08/30/2023 Permanent atrial fibrillation (CMS/HCC) 08/30/2023 terminal 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 Permanent atrial fibrillation (CMS/HCC) Follow Up In Cardiology 2. Ischemic cardiomyopathy Follow Up In Cardiology Patient has chronic left heart failure, systolic, possibly systolic and diastolic, functional class III. Of late there has been worsening of symptoms. Orthopnea Permanent atrial fibrillation on long-term anticoagulation with Eliquis History of coronary artery bypass graft x 2, remote, rotational atherectomy and ROBERTO of LAD diagonal in 2014 Varying estimates of left ventricular ejection fraction most recent 35% echo August 2021 43% stress perfusion study August 2021 Inferior scar QRS duration 96 ms when not paced, 180 ms when paced. Will start Entresto 24/ 0.5 tablets daily. Will need close follow-up, to uptitrate medications. Patient to see [facility] NP in 4 weeks. [facility] please continue to see patient at frequent intervals for Entresto up titration as tolerated Digoxin 0.125 mg p.o. daily Basic metabolic profile 1 week Treatment of obstructive sleep apnea is necessary to improve fatigue Cannot be on Farxiga or Jardiance because of history of pancreatitis. Follow-up with me in 4 months Follow up : 1 week with [facility] and 4 months with me. Hosea will see patient frequently for up titration of medications as needed. Provider Attestation - Scribe documentation All medical record entries made by the Scribe were at my direction and personally dictated by me. I have reviewed the chart and agree that the record accurately reflects my personal performance of the history, physical exam, discussion and plan. Scribe Attestation By signing my name below, I, Jennifer Bearden LPN attest that this documentation has been prepared under the direction and in the presence of Rosemary Cartagena MD. documented in this encounter [facility] Work Phone: 10-25-2023 Instructions Monisha Roberts LPN - 10/25/2023 2:15 PM EST Please bring all medicines, vitamins, and herbal supplements with you when you come to the office. Prescriptions will not be filled unless you are compliant with your follow up appointments or have a follow up appointment scheduled as per instruction of your physician. Refills should be requested at the time of your visit. Pacemaker/Defibrillator follow up per routine documented in this encounter [facility] Work Phone: 09-16-2023 Evaluation note Encounter Date Diagnosis Assessment Notes Sep, Diarrhea (ICD-10 - R19.7) NoWait Other 2023 History of Present illness Narrative* Rosemary Cartagena MD - 08/30/2023 10:30 AM EST Referring provider: Justin MARIN. History Of Present Illness: Yoana Ibrahim is a 82 y.o. male presenting with long history of cardiac problems, and is here to establish cardiology visit. Previously was going to [facility], patient and want to switch care over to [facility]. Has history of atrial fibrillation coronary artery bypass graft obstructive sleep apnea XT DR MRI device implanted 2019. Do not have much in the way of records. Former smoker, quit 2 years ago. Denies chest pressure tightness or heaviness denies palpitations or ICD discharges Has been noticing shortness of breath, feels like he cannot get enough air, this is per who accompanies him to the office. Symptoms more prominent in the last 3 to 4 months. Also sleepy, And fatigued. notices that he wants to sleep a lot. He says he feels better when he puts his CPAP mask on. He feels less short of breath when the CPAP mask is on. Recent upper respiratory infection symptoms. No fluid weight gain Physical examination: GENERAL APPEARANCE: No acute distress CHEST: Symmetric and non-tender. Well-healed scar of prior coronary artery bypass grafting is noted INTEGUMENT: Skin warm and dry, without gross excoriationis or lesions. HEENT: No gross abnormalities, no jugular venous distention no carotid bruit or scleral icterus NECK: Supple, no JVD, no bruit. Thyroid not palpable. Carotid upstrokes normal. NEURO/PSHCY: Alert and oriented x3; appropriate behavior and responses and responses, with normal balance and coordination LUNGS: Clear to auscultation bilaterally; normal respiratory effort. Breath sounds are distant HEART: Rate and rhythm regular with no evident murmur; no gallop appreciated. There are no rubs, clicks or heaves. EKG shows ventricular paced rhythm and atrial fibrillation ABDOMEN: Soft, nontender, no masses or bruits. EXTREMITIES: Warm There is no edema noted. PERIPHERAL VASCULAR: Distal pulses are palpable. Per GI notes which I have reviewed:. He has had history of acid reflux and had undergone upper endoscopy in March of 2016. His upper endoscopy was normal. He is on Protonix 40 milligrams and takes it once or twice a day. He is feeling well and his reflux is well controlled. 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 He has complained of diarrhea. He is on Creon 72,000 lipase units with each meal. If she watches greasy fatty foods he has generally normal bowel function but occasionally can have loose stools which is controlled with Imodium. He does complain of some bloating gas and a follow order to his stool he had tried Xifaxan the past but it was notthat helpful. REVIEW OF SYSTEMS: See HPI, otherwise 12 point review of systems is negative or noncontributory Past Medical History: 1. Chronic systolic left heart failure, secondary to ischemic cardiomyopathy, LVEF 30% echo March 2019 2. Moderate mitral regurgitation with biatrial enlargement 3. Sick sinus syndrome dual-chamber pacemaker, revised to Medtronic Evera XT DR ICD May 2019,with a new 6935 RV lead at the reuse of the chronic 5076 atrial lead. 4. Paroxysmal atrial fibrillation on long-term anticoagulation with Eliquis 5. Primary hypertension 6. Hyperlipidemia 7. Coronary artery bypass grafting SAMUEL to LAD SVG to PDA, both patent at last cardiac catheterization May 2007 8. Obstructive sleep apnea, with compliance to CPAP therapy followed by sleep medicine 9. Echocardiogram November 2011 LVEF 40% mild to moderate mitral and aortic insufficiency which improved compared to prior echocardiograms 10. Echocardiogram July 2020 LVEF 35% RVSP 41 mmHg mild mitral and tricuspid regurgitation mildaortic regurgitation 11. Echo August 2021 LVEF 35% 12. TIA December 2016 13.Rotational atherectomy and ROBERTO of the LAD diagonal area May 2015 14. Left upper extremity DVT 15. Stress Myoview August 2021-large inferior infarct LVEF 43% 11. 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 History of prostate cancer with seeds and radiation treatment 13. Insulin requiring diabetes 14. Short-term memory impairment Past Surgical History: He has a past surgical history that includes Appendectomy; Cholecystectomy; Coronary artery bypass graft; XR knee (Bilateral); Cataract extraction; and Prostate surgery. Social History: He reports that he has quit smoking. His smoking use included cigarettes. He has never used smokeless tobacco. He reports current alcohol use. He reports that he does not use drugs. Family History: Family History Problem Relation Name Age of Onset Breast cancer Mother Breast cancer Sister Cancer Brother PSH: APPENDECTOMY BLADDER SURGERY CARDIAC PACEMAKER PLACEMENT CHOLECYSTECTOMY COLONOSCOPY ESOPHAGOGASTRODUODENOSCOPY OTHER SURGICAL HISTORY Coronary Artery Surgery REPLACEMENT TOTAL KNEE Allergies: Hermila [fexofenadine], Byetta [exenatide], Codeine, Demerol [meperidine], Invokana [canagliflozin], and Victoza 2-cruz [liraglutide] Outpatient Medications: Current Outpatient Medications Medication Instructions CALCIUM CARBONATE-VITAMIN D3 ORAL 1 capsule, oral, Daily RT carbidopa-levodopa (Sinemet) 10-100 mg tablet 0.5 tablets, oral, 3 times daily carboxymethylcellulose (Refresh Tears) 0.5 % ophthalmic solution 1 drop, Both Eyes, As needed carvedilol (COREG) 3.125 mg, oral, 2 times daily with meals cholecalciferol (Vitamin D-3) 5,000 Units tablet 1 tablet, oral, Daily clopidogrel (Plavix) 75 mg tablet 1 tablet, oral, Daily Creon 36,000-114,000- 180,000 unit capsule,delayed release(DR/EC) capsule 2 capsules, oral, 3 timesdaily with meals cyproheptadine (PERIACTIN) 2 mg, oral, Daily DAILY MULTI-VITAMIN ORAL 1 capsule, oral, Daily diazePAM (VALIUM) 1 mg, oral, Every 6 hours PRN Eliquis 5 mg tablet 1 tablet, oral, 2 times daily famotidine (PEPCID) 20 mg, oral, 2 times daily FERROUS SULFATE ORAL 325 mg, oral, 2 times daily furosemide (Lasix) 20 mg tablet 1 tablet, oral, Daily with lunch insulin glargine (LANTUS) 25 Units, subcutaneous, Daily RT loperamide (IMODIUM) 2 mg, oral, Daily magnesium oxide (MAG-OX) 420 mg, oral, Daily memantine (NAMENDA) 28 mg, oral, Daily PARoxetine (PAXIL) 20 mg, oral, Every morning potassium chloride ER (Micro-K) 10 mEq ER capsule 1 capsule, oral, 4 times daily rivastigmine (Exelon) 13.3 mg/24 hour 1 patch, transdermal, Daily tamsulosin (Flomax) 0.4 mg 24 hr capsule 1 capsule, oral, Daily Reviewed laboratory data from 2019 to include basic metabolic profile comprehensive profile GFR greater than 60 potassium 4.0, EKG atrial fibrillation with ventricular paced at 62 bpm Assessment/Plan 1. Permanent atrial fibrillation (CMS/HCC) 2. ICD (implantable cardioverter-defibrillator) in place 3. Sleep apnea, unspecified type 4. Abnormal EKG 5. Hx of coronary artery bypass graft 6. Coronary artery disease, unspecified vessel or lesion type, unspecified whether angina present, unspecified whether [place] or transplanted heart 7. USP 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 8. Shortness of breath 9. History of stroke 10. Benign prostatic hyperplasia with lower urinary tract symptoms, symptom details unspecified 11. Ischemic cardiomyopathy 12. Fatigue, unspecified type 13. Other specified diabetes mellitus with other specified complication, unspecified whether lobsterman insulin use ([facility]) Patient has chronic left heart failure, systolic, possibly systolic and diastolic, functional classIII. Of late there has been worsening of symptoms. Orthopnea Permanent atrial fibrillation on long-term anticoagulation with Eliquis History of coronary artery bypass graft x 2, remote, rotational atherectomy and ROBERTO of LAD diagonalin 2014 Varying estimates of left ventricular ejection fraction most recent 35% echo August 2021 43% stress perfusion study August 2021 Inferior scar QRS duration 96 ms when not paced, 180 ms when paced. No recent laboratory data for review. Recommendations: 1. Patient is currently not on maximum guideline directed medical therapy. His blood pressure is onthe low side, and that could be one of the reasons. I also do not have any recent laboratory data available. Prior to making medication changes, I recommend that we obtain comprehensive profile lipidprofile hemoglobin A1c Free T4 TSH, BNP level and vitamin D level. Thyroid function and hemoglobin A1c are being obtained to further assess his worsening fatigue. 2. Echocardiogram 3. Was considering a perfusion study, subsequently was able to review outside records, no indication to repeat at this time. 4. Enroll in device clinic-[employer] XT DR 2019 5. Follow-up in 8 weeks at which time further recommendations can be made. Total of 60 minutes reviewing information coordinating care and ordering additional testing. Thank you for allowing me to participate in Mr. Ibrahim's care, please do not hesitate to call if further questions arise, Sincerely, Rosemary Cartagena MD [facility] Provider Attestation - Scribe documentation All medical record entries made by the Scribe were at my direction and personally dictated by me. Leoncio reviewed the chart and agree that the record accurately reflects my personal performance of the history, physical exam, discussion and plan. Scribe Attestation By signing my name below, I, Jennifer Trevino LPN attest that this documentation has been prepared under the direction and in the presence of Rosemary Cartagena MD. documented in this [facility] Work Phone: 1(378) 847-872412-18-2023 Instructions* Patient Instructions* Monisha Roberts LPN - 08/30/2023 10:30 AM EST Please bring all medicines, vitamins, and herbal supplements with you when you come to the office. Prescriptions will not be filled unless you are compliant with your follow up appointments or have a follow up appointment scheduled as per instruction of your physician. Refills should be requested at the time of your visit. Fall Prevention Education Given EKG done in office today documented in this [facility] Work Phone: 1(986) 405-741811-30-2023 Evaluation note* Encounter Date Diagnosis Assessment Notes Treatment Notes Treatment Clinical Notes Jul, Diarrhea (ICD-10 - R19.7) NoWait Other 07-20-2023 Evaluation note* Encounter Date Diagnosis Assessment Notes Treatment Notes Treatment Clinical Notes Mar, Exocrine pancreatic insufficiency (ICD-10 - K86.81) Patient will continue Creon as directed without change Mar, Diarrhea (ICD-10 - R19.7) Patient reports that he still has fecal accidents about 1 every 2 weeks Patient will continue Imodium as direct without change NoWait Other 12-15-2022 Evaluation note* Encounter Date Diagnosis Assessment Notes Treatment Notes Treatment Clinical Notes Aug, Diarrhea (ICD-10 - R19.7) NoWait Other 12-13-2022 Evaluation note* Encounter Date Diagnosis Assessment Notes Treatment Notes Treatment Clinical Notes Aug, Diarrhea (ICD-10 - R19.7) NoWait Other 06-29-2022 Evaluation note* Encounter Date Diagnosis Assessment Notes Treatment Notes Treatment Clinical Notes Feb, 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 PATIENT ADVISED WE WILL INCREASE MEDICATION AT THIS TIME. NoWait Other 04-04-2022 Evaluation note* Encounter Date Diagnosis Assessment Notes Treatment Notes Treatment Clinical Notes Dec, Diarrhea (ICD-10 - R19.7) Dec, Fecal incontinence (ICD-10 - R15.9) NoWait Other 12-21-2021 Evaluation note* Encounter Date Diagnosis Assessment Notes Treatment Notes Treatment Clinical Notes Aug, Lumbar degenerative disc disease (ICD-10 - M51.36) I independently reviewed the DEXA scan which shows marginal bone quality. I independently reviewed the 6 view lumbar spine which shows a L4-5 spondylolisthesis of about 4 5 mm that does not move with flexion and extension. I again reviewed the myelogram with CT to follow that shows moderate to severe stenosis at L4-5. I had a long talk with this patient regarding his symptoms he complains that he does not like walking with shuffling feet which I cannot change I may not change his back pain I could potentially change pain in his legs. I tried to relay to the family that there is significant morbidity mortality with this operation because of the patient's existing comorbidities and the extent of surgery. At this point after talking with the we felt that it be good to have the patient trial a walker. We will order therapy I will see the patient back at the end of September. 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 However the patient does have impressive left arm swelling and he has a dual-chamber pacemaker with retained wires. 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 The patient is rather uncomfortable and dissatisfied with his arm swelling. It limits his mobility and decreases his activity level. Just to maintain moderate swelling he has to elevate the left arm frequently. Therefore I am recommending a diagnostic left subclavian venogram with possible mechanical thrombectomy based T based upon her findings. The risks and benefits were explained as well as medical surgical alternatives the patient understands and wishes to proceed all his questions were addressed. We will schedule this in the near future. Consent was obtained today. We will hold his Eliquis for 1 to 2 days. 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 He has multiple levels of degenerative changes. He has spondylolisthesis at L4-5 with severe stenosis. He has moderate stenosis but overall acceptable canal at L3-4. This gentleman has multiple issues that need to be taken into consideration. #1 his advanced age #2 comorbidities to include parkinsonism which has high rates of operative complications and morbidity. He also has significant cardiac disease, has a pacemaker, and he is visiting a waiter/waitress head in the near future who will make a determination if the patient is a candidate for a lumbar interbody fusion. Given these findings the patient does have lumbar spine disease that is causing neurogenic claudication and the surgery will involve a fusion of L4-5 which is an extensive surgery. I discussed this with the family in detail. In light of the comorbidities I will see the patient back after a six view lumbar spine x-ray, a DEXA scan looking a bone quality which will also affect surgical decision making, and gain information on comorbidities such as cardiac status. Jul, Spondylolisthesis, lumbar region (ICD-10 - M43.16) Jul, Lumbar degenerative disc disease (ICD-10 - M51.36) Jul, Lumbosacral spondylosis without myelopathy (ICD-10 - M47.817) Jul, Age-related osteoporosis without current pathological fracture (ICD-10 - M81.0) Jul, Other specified disorders of bone density and structure, other site (ICD-10 - M85.88) NoWait Other 10-21-2021 Evaluation note* Encounter Date Diagnosis Assessment Notes Treatment Notes Treatment Clinical Notes Jun, Lumbar degenerative disc disease (ICD-10 - M51.36) 80 year old male here for follow up status post caudal epidural steroid injection under fluoroscopic guidance. Patient reports 70% pain relief and increased function following procedure. He voices complaints of residual low back pain today. He also voices weakness/heaviness to the bilateral lower extremities. He denies any procedure related complications. He notes that he was in the ED 3 days ago for left upper extremity swelling and was subsequently diagnosed with DVT. I independently reviewed recent CT myelogram of the lumbar spine and I agree with radiology interpretation. Anatomy of spine discussed in detail with patient in regards to patients condition. I do not recommend proceeding with further injections at this time due to recent DVT. He can continue to seek surgical consultation with Dr Maciel, but I feel he may be high risk for surgery. Jun, Lumbosacral spondylosis without myelopathy (ICD-10 - M47.817) Continue with surgical consult Jun, Other chronic pain (ICD-10 - G89.29) Continue medications as prescribed. He can take Tylenol or OTC Lidocaine cream for pain NoWait Other 10-18-2021 Evaluation note* Encounter Date Diagnosis Assessment Notes Treatment Notes Treatment Clinical Notes Jun, Acute deep vein thrombosis (DVT) of axillary vein of left upper extremity (ICD-10 - I82.A12) This patient has an acute left left upper extremity DVT involving his brachial axillary and basilic veins. This likely includes the subclavian vein as well. He does not have any new shortness of breath or chest pain. I doubt he has a PE at this time based on history and clinical exam. I suggested this patient restart his blood thinners as soon as feasible. The patient has family wants to undergo a wire gram tomorrow as work-up for his back pain and discomfort which is significant. I think this is reasonable to hold off for 1 more day prior to resuming blood thinners. I absolutely would not consider a superior vena cava filter in this situation. I do not think the risk-benefit ratio favors intervention. Besides, I suspect that his left subclavian vein has some significant scarring and narrowing due to retained pacemaker wires and current wires. He probably already had a narrowing or stenoses there which was then clotted off with acute thrombus. There is little chance that this will travel to his heart and lungs due to the chronic subclavian vein stenoses from the pacer wires. In other words, this patient likely has outflow obstruction due to mechanical reasons which would limit the incidence of PE in this scenario. I have instructed him to resume the blood thinners after the myelogram when the radiologist says it is appropriate. Lastly the patient states that he is here for preop evaluation for possible anterior lumbar interbody fusion. I have my concerns with this patient's current health and comorbidities. He has a very long list of medications and comorbidities. These patients generally tend not to do as well as the average 34-year-old undergoing this procedure. I explained this to him. He is aware of this. We discussed some pretty holographic and catastrophic potential complications including . I will leave this up to the decision of his neurosurgeon and agreed to proceed if the patient and neurosurgeon deem it appropriate. All the questions were answered. NoWait Other 10-05-2021 Evaluation note* Encounter Date Diagnosis Assessment Notes Treatment Notes Treatment Clinical Notes Jun, Lumbar degenerative disc disease (ICD-10 - M51.36) NoWait Other 10-04-2021 Evaluation note* Encounter Date Diagnosis Assessment Notes Treatment Notes Treatment Clinical Notes Jun, Other chronic pain (ICD-10 - G89.29) Follow up after consultation with Dr. Maciel. Jun, Lumbar degenerative disc disease (ICD-10 - M51.36) 80 year old male here for follow up status post bilateral sacral lateral branch nerve block at S1, S2 and S3, as well as L5 dorsal ramus under fluoroscopic guidance. Patient reports 70-80% pain relief or increased function for 4-5 hours following the procedure. He voices continued complaints of low back pain, denying radicular symptoms. He does note a heaviness/weakness to the bilateral lower extremities. I will refer him to Dr. Maciel for surgical consideration. In the meantime I will proceed with a caudal epidural steroid injection. Risks and benefits of procedure explained to patient; patient verbalizes understanding. Jun, Arthritis of sacroiliac joint (ICD-10 - M47.818) Consider second sacral lateral branch nerve block in the future followed by RFA. Jun, Lumbosacral spondylosis without myelopathy (ICD-10 - M47.817) Stable, proceed with treatment plan. NoWait Other 10-04-2021 Evaluation note* Encounter Date Diagnosis Assessment Notes Treatment Notes Treatment Clinical Notes Jun, Lower extremity pain (ICD-10 - M79.606) NoWait Other Evaluation + Plan note Future Appointments Appointment Date:04/25/2024 01:30:00 PM Scheduled Provider:BARB Salinas APRN, [place] [facility] Location:[facility] Appointment Type:URO New Patient [facility] Evaluation noteNo InformationNort DockPHP Other Evaluation noteNo assessment information available [facility] Work Phone: Evaluation note* Diagnosis Permanent atrial fibrillation (CMS/HCC)- Primary Atrial fibrillation ICD (implantable cardioverter-defibrillator) in place Sleep apnea, unspecified type Abnormal EKG Nonspecific abnormal electrocardiogram (ECG) (EKG) Hx of coronary artery bypass graft Postsurgical aortocoronary bypass status Coronary artery disease, unspecified vessel or lesion type, unspecified whether angina present, unspecified whether [place] or transplanted heart USP 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 Shortness of breath History of stroke Transient ischemic attack (TIA), and cerebral infarction without residual deficits Benign prostatic hyperplasia with lower urinary tract symptoms, symptom details unspecified Ischemic cardiomyopathy Other specified forms of chronic ischemic heart disease Fatigue, unspecified type Other specified diabetes mellitus with other specified complication, unspecified whether chcf insulin use (CMS/HCC) documented in this encounter [facility] Work Phone: Evaluation note* Diagnosis Abnormal EKG Nonspecific abnormal electrocardiogram (ECG) (EKG) Sleep apnea, unspecified type Permanent atrial fibrillation (CMS/HCC) Atrial fibrillation Shortness of breath documented in this encounter [facility] Work Phone: Evaluation note* Diagnosis Bipolar disorder, current episode manic severe with psychotic features (CMS/HCC)- Primary Permanent atrial fibrillation (CMS/HCC) Atrial fibrillation Ischemic cardiomyopathy Other specified forms of chronic ischemic heart disease ICD (implantable cardioverter-defibrillator) in place Hx of coronary artery bypass graft Postsurgical aortocoronary bypass status Coronary artery disease involving [place] coronary artery of [place] heart without angina pectoris History of stroke Transient ischemic attack (TIA), and cerebral infarction without residual deficits Other specified diabetes mellitus with other specified complication, unspecified whether chcf insulin use ([facility]) 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 Unspecified essential hypertension USP 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 Obstructive sleep apnea syndrome Obstructive sleep apnea (adult) (pediatric) Medication course changed Sacroiliitis, not elsewhere classified ([facility]) Sacroiliitis, not elsewhere classified Idiopathic chronic pancreatitis ([facility]) Dementia in other diseases classified elsewhere, unspecified severity, without behavioral disturbance, psychotic disturbance, mood disturbance, and anxiety ([facility]) Major depressive disorder, recurrent, moderate ([facility]) Major depressive disorder, recurrent episode, moderate Acute embolism and thrombosis of right peroneal vein ([facility]) Prostate CA ([facility]) Malignant neoplasm of prostate Chronic systolic heart failure ([facility]) Chronic systolic heart failure documented in this encounter [facility] Work Phone: Evaluation note* Diagnosis BMI 29.0-29.9,adult- Primary Ischemic cardiomyopathy Other specified forms of chronic ischemic heart disease 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 Unspecified essential hypertension documented in this encounter [facility] Work Phone: Evaluation note* Diagnosis BMI 31.0-31.9,adult- Primary Ischemic cardiomyopathy Other specified forms of chronic ischemic heart disease documented in this encounter [facility] Work Phone: Evaluation note* Diagnosis Onset Date Resolution Status Exocrine pancreatic insufficiency [facility] Work Phone: History general Narrative - Reported* Type Description Date Medical History degenerative disc disease Medical History stenosis Medical History bladder cancer Medical History stroke Medical History DM 2 Surgical History APPENDECTOMY Surgical History CHOLECYSTECTOMY Surgical History bilateral knee replacements Surgical History cardiac pacemaker Surgical History bladder stimulator Surgical History open heart surgery Hospitalization History see above NoWait Other History general Narrative - Reported* Type Description Date Medical History degenerative disc disease Medical History stenosis Medical History bladder cancer Medical History stroke Medical History DM 2 Medical History DVT Surgical History APPENDECTOMY Surgical History CHOLECYSTECTOMY Surgical History bilateral knee replacements Surgical History cardiac pacemaker Surgical History bladder stimulator Surgical History open heart surgery Surgical History cataract-lens implants RACHELLE. Hospitalization History see above NoWait Other Hospital course Narrative No data available for this section [facility] [employer] Hospital Discharge instructions No data available for this section [facility] Progress note No data available for this section [facility] Reason for referral (narrative)* Consultation (Routine) - Authorized Specialty Diagnoses / Procedures Referred By Godwin romo Referred To Contact Cardiology Diagnoses Permanent atrial fibrillation (CMS/HCC) Ischemic cardiomyopathy ICD (implantable cardioverter-defibrillator) in place 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 Procedures Follow Up In Cardiology Rosemary Cartagena MD [address] [facility] [address] [place] [address] [facility], WOOD CARVING LATHE OPERATOR-PICKLING DRUM OPERATOR [address] [facility] [address], [address] [place] [address] Referral ID Status Reason Start Date Expiration Date V isits Requested Visits Authorized [id number] Authorized 10/25/2023 10/24/2024 1 1 * Consultation (Routine) - Authorized Specialty Diagnoses / Procedures Referred By Godwin romo Referred To Contact Sleep Medicine Diagnoses Obstructive sleep apnea syndrome Rosemary Cartagena MD [address] [facility] [address] [place] [address] Referral ID Status Reason Start Date Expiration Date Visits Requested Visits Authorized [id number] Authorized Specialty Services Required 10/25/2023 10/24/2024 1 1 * Consultation (Routine) - Authorized Specialty Diagnoses / Procedures Referred By Godwin romo Referred To Contact Cardiology Diagnoses Permanent atrial fibrillation (CMS/HCC) Ischemic cardiomyopathy ICD (implantable cardioverter-defibrillator) in place 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 Procedures Follow Up In Cardiology Rosemary Cartagena MD [address] [facility] [address] [place] [address] Rosemary Cartagena MD [address] [facility] [address] [place] [address] Referral ID Status Reason Start Date Expiration Date V isits Requested Visits Authorized [id number] Authorized 10/25/2023 10/24/2024 1 1 [facility] Work Phone: Reason for referral (narrative)* Consultation (Routine) - Authorized Specialty Diagnoses / Procedures Referred By Contac t Referred To Contact Cardiology Diagnoses Ischemic cardiomyopathy Procedures Follow Up In Cardiology [facility] WOOD CARVING LATHE OPERATOR-PICKLING DRUM OPERATOR [address] [facility] [address], [address] [address] Referral ID Status Reason Start Date Expiration Date V isits Requested Visits Authorized [id number] Authorized 12/06/2023 12/05/2024 1 1 T [facility] Work Phone: Reason for referral (narrative)* Consultation (Routine) - Authorized Specialty Diagnoses / Procedures Referred By Contac t Referred To Contact Cardiology Diagnoses Ischemic cardiomyopathy Procedures Follow Up In Cardiology [facility] WOOD CARVING LATHE OPERATOR-PICKLING DRUM OPERATOR [address] [facility] [address], [address] [address] Referral ID Status Reason Start Date Expiration Date V isits Requested Visits Authorized [id number] Authorized 12/22/2023 12/21/2024 1 1 [facility] Work Phone: Summary Purpose Family History No Family History Records Found Relationship Condition Age at Onset Recorded Date/T antonio Not Specified Malignant neoplasm of breast Unknown brother Malignant neoplasm of prostate Unknown sister Malignant neoplasm of breast Unknown Relationship Condition Age at Onset Recorded Date/T antonio Not Specified Malignant neoplasm of breast Unknown brother Malignant neoplasm of prostate Unknown sister Malignant neoplasm of breast Unknown brother Malignant neoplasm Unknown Unknown father Unknown Not Specified Hypertension Unknown Heart disease Unknown sister Heart disease Unknown Malignant neoplasm Unknown Relationship Condition Age at Onset Recorded Date/T antonio mother Malignant neoplasm of breast Unknown brother Malignant neoplasm of prostate Unknown sister Malignant neoplasm of breast Unknown brother Malignant neoplasm Unknown Unknown father Unknown mother Hypertension Unknown Heart disease Unknown sister Heart disease Unknown Malignant neoplasm Unknown Advance Directives No Advanced Directives Records FoundDocuments on File Type Date Recorded Patient Loader Machine Expl anation Advance Directives and Livin g Will Advance Directives and Livin g Will 10/15/2013 9:06 AM Power of Cocoa Roaster Power of Cocoa Roaster 10/15/2013 9:06 AM Latest Code Status on File Code Status Date Activated Date Inactivated Comments Full Code 06/12/2019 2:57 PM Full Code 06/12/2019 12:40 PM 06/12/2019 2:57 PM Full Code 12/02/2017 8:25 PM 12/06/2017 5:28 PM Full Code 05/28/2015 6:29 PM 05/29/2015 5:24 PM Full Code 05/28/2015 2:25 PM 05/28/2015 6:29 PM Advance Directive Response Recorded Date/ Time Advance Directives Yes February 18 12:26pm Advance Directive Response Recorded Date/ Time Advance Directives Yes February 18 11:26am History of Present Illness * Hayley Ramirez RN - 06/13/2019 11:58 AM EDT Pt given discharge instructions and paper work. Reviewed discharge instructions with . Pt and family agreeable to plan of care. * Niurka Alvarado RN - 06/12/2019 4:00 PM EDT Patient is outpatient so all of his home medications were given to proposal manager writer & proposal manager writer sent medication to pharmacy for verification. Patients home medications were put in a patient belonging bag & patient stickers were placed on bag. The home medications were locked in the medication cabinet inpatients room * Pantera Alegre RN - 06/12/2019 2:15 PM EDT Received post ICD procedure to [facility] room 4. Assessment obtained. Restrictions reviewed with patient.Post procedure pathway initiated. CHEST site soft , CLEAN dry and intact. No hematoma noted. Familyat side. Patient without complaints.REPORT TO DEBORAH DURAN * Genevieve De Paz RN - 06/12/2019 1:03 PM EDT Patient admitted, consent signed and questions answered. Patient ready for procedure. Call light toreach with side rails up 2 of 2. Chest hair clipped. at bedside with patient. History and physical needing update. 2% Chlorhexidine cloths used to prep site documented in this encounter Assessments Diagnosis S/P ICD (internal cardiac defibrillator) procedure Automatic implantable cardiac defibrillator in situ Reason for Referral Reason evaluate for surgica l intervention Diagnosis 1 Other chronic pain ( G89.29) Diagnosis 2 Lumbar degenerative disc disease (M51.36) Referral Organization [facility] Pain Managemen t Referring Provider First Name Ryder Referring Provider Last Name Ranjeet Referring Provider Specialty Pain Medici ne Referred Organization [facility] [place] Ne urosurgery Referred Provider Maciej Maciel Dale Referred Address [address] [place] [address] [address] ,[place], [place],[address] Referred Provider Specialty Neurological Surgery Referral Priority Routine General Notes Tarsha Nieto V 02:53:20 PM >Patient had CT scan of the lumbar spine in [place] earlier this year. He has a pacemaker/defibrillator and cannot have MRI Reason *FU 06/24 eval and treat Diagnosis 1 Lower extremity pain (M79.606) Referral Organization [facility] Pain Managemen t Referring Provider First Name Ryder Referring Provider Last Name Ranjeet Referring Provider Specialty Pain Medici ne Referred Organization [facility] Vascular Surge ry Referred Provider Abdon Jackman Referred Address [address] [place] [address] [address],[place], [place],[address] Referred Provider Specialty Vascular Laila haresh Referral Priority Routine General Notes Sadaf Hernandez 10:25:46 AM >p2p sent Reason Evaluate and Treat Diagnosis 1 Spondylolisthesis, l umbar region (M43.16) Referral Organization [facility] [place] Ne urosurgery Referring Provider First Name Osvaldo Referring Provider Last Name Raheem Referring Provider Specialty Neurologica l Surgery Referred Organization [facility] Referred Address [address] [place], [place],[address] Referred Provider Specialty Physical The rapist Referral Priority Routine Specialty Diagnoses / Procedures Referred By Contac t Referred To Contact Cardiology Diagnoses Abnormal EKG Sleep apnea, unspecified type Permanent atrial fibrillation (CMS/HCC) Shortness of breath Procedures Transthoracic Echo (TTE) Complete [place] ECHO TRANSTHORC R-T 2D W/WO M-MODE REC F-UP/LMTD [place] DOP ECHOCARD COLOR FLOW VELOCITY MAPPING [place] DOP ECHOCARD PULSE WAVE W/SPECTRAL F-UP/LMTD STD Rosemary Cartagena MD [address] [email or web address] [address] [address] Referral ID Status Reason Start Date Expiration Date Visits Requested Visits Authorized [id number] Pending Review Perform Procedure 3 08/29/2024 1 1 Specialty Diagnoses / Procedures Referred By Contac t Referred To Contact Cardiology Diagnoses ICD (implantable cardioverter-defibrillator) in place Ischemic cardiomyopathy Rosemary Cartagena MD [address] [email or web address] [address] [place] [address] Referral ID Status Reason Start Date Expiration Date Visits Requested Visits Authorized [id number] Authorized Specialty Services Required 3 08/29/2024 1 1 Specialty Diagnoses / Procedures Referred By Contac t Referred To Contact Diagnoses ICD (implantable cardioverter-defibrillator) in place Permanent atrial fibrillation (CMS/HCC) Procedures ECG 12 Lead Rosemary Cartagena MD [address] [place] [address] Referral ID Status Reason Start Date Expiration Date V isits Requested Visits Authorized [id number] Pending Review 08/30/2023 08/29/2024 1 1 Specialty Diagnoses / Procedures Referred By Contac t Referred To Contact Cardiology Diagnoses Permanent atrial fibrillation (CMS/HCC) Ischemic cardiomyopathy Procedures Follow Up In Cardiology Rosemary Cartagena MD [address] [facility] [address] [place] [address] Rosemary Cartagena MD [address] [facility] [address] [place] [address] Referral ID Status Reason Start Date Expiration Date V isits Requested Visits Authorized [id number] Authorized 08/30/2023 08/29/2024 1 1 Chief Complaint and Reason for Visit Chief Complaint n64.89 Chief Complaint z95.810 i25.5; PATIE NT HAS LAB ORDERS Chief Complaint z95.810 i25.5 i10 i25.5 z86.73 Chief Complaint z95.810 i25.5 i10 i25.5 z86.73 R41.0 i25.5 Chief Complaint R41.0 i25.5 z95.810 i25.5 Chief Complaint R41.0 i25.5 z95.810 i25.5 1 year follow up Reason for Visit Exocrine pancreatic insufficiency Additional Source Comments (unrecognized sect ion and content) No Status Records FoundNo Status Records FoundNo Status Records FoundNo Status Records FoundNo Status Records FoundNo Status Records FoundNo Status Records FoundNo Status Records Found INFORMATION SOURCE (unrecogn ized section and content) DATE CREATED AUTHOR 03/02/2018 [facility] DATE CREATED AUTHOR AUTHOR'S ORGANIZ ATION 06/26/2019 [facility] DATE CREATED AUTHOR AUTHOR'S ORGANIZ ATION 09/04/2022 [facility] DATE CREATED AUTHOR AUTHOR'S ORGANIZ ATION 10/01/2023 [facility] DATE CREATED AUTHOR AUTHOR'S ORGANIZ ATION 02/24/2024 [facility] EPIC DATE CREATED AUTHOR AUTHOR'S ORGANIZ ATION 03/12/2024 [facility] DATE CREATED AUTHOR AUTHOR'S ORGANIZ ATION 04/25/2024 [facility] DATE CREATED AUTHOR AUTHOR'S ORGANIZ ATION 05/01/2024 [facility] Reason for Visit (unrecogniz ed section and content) Status Reason Specialty Diagnoses / Procedures Referre d By Contact Referred To Contact Diagnoses S/P ICD (internal cardiac defibrillator) procedure cath lab radiology technician Procedures cath lab radiology technician Raúl Quintero MD [address] [facility]. [place], [place] [facility] Reason Comments New Patient Visit Re-establish Specialty Diagnoses / Procedures Referred By Contac t Referred To Contact Diagnoses ICD (implantable cardioverter-defibrillator) in place Permanent atrial fibrillation (CMS/HCC) Procedures ECG 12 Lead Rosemary Cartagena MD [address] [address] Referral ID Status Reason Start Date Expiration Date V isits Requested Visits Authorized [id number] Pending Review 08/30/2023 08/29/2024 1 1 Specialty Diagnoses / Procedures Referred By Contac t Referred To Contact Cardiology Diagnoses Abnormal EKG Sleep apnea, unspecified type Permanent atrial fibrillation (CMS/HCC) Shortness of breath Procedures Transthoracic Echo (TTE) Complete [place] ECHO TRANSTHORC R-T 2D W/WO M-MODE REC F-UP/LMTD [place] DOP ECHOCARD COLOR FLOW VELOCITY MAPPING [place] DOP ECHOCARD PULSE WAVE W/SPECTRAL F-UP/LMTD STD Rosemary Cartagena MD [address] [address] Referral ID Status Reason Start Date Expiration Date Visits Requested Visits Authorized [id number] Pending Review Perform Procedure 08/29/2024 1 1 Reason Comments Follow-up 8 week Specialty Diagnoses / Procedures Referred By Contac t Referred To Contact Cardiology Diagnoses Permanent atrial fibrillation (CMS/HCC) Ischemic cardiomyopathy Procedures Follow Up In Cardiology Rosemary Cartagena MD [address] [facility] [address] [place] [address] Rosemary Cartagena MD [address] [facility] [address] [place] [address] Referral ID Status Reason Start Date Expiration Date V isits Requested Visits Authorized [id number] Authorized 08/30/2023 08/29/2024 1 1 Reason Comments Follow-up 6 week per GM Specialty Diagnoses / Procedures Referred By Contac t Referred To Contact Cardiology Diagnoses Permanent atrial fibrillation (CMS/HCC) Ischemic cardiomyopathy ICD (implantable cardioverter-defibrillator) in place 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 Procedures Follow Up In Cardiology Rosemary Cartagena MD [address] [facility] [address] [place] [address] [facility], WOOD CARVING LATHE OPERATOR-PICKLING DRUM OPERATOR [address] [facility] [address], [address] [place] [address] Referral ID Status Reason Start Date Expiration Date V isits Requested Visits Authorized [id number] Authorized 10/25/2023 10/24/2024 1 1 Reason Comments Follow-up 2w Specialty Diagnoses / Procedures Referred By Godwin romo Referred To Contact Cardiology Diagnoses Ischemic cardiomyopathy Procedures Follow Up In Cardiology [facility], WOOD CARVING LATHE OPERATOR-PICKLING DRUM OPERATOR [address] [facility] [address], [facility] [address] [place] [address] Referral ID Status Reason Start Date Expiration Date V isits Requested Visits Authorized [id number] Authorized 12/06/2023 12/05/2024 1 1 Care Teams (unrecognized sec tion and content) Team Status: Active Member Role Status Dates Shanique Schwab DO Primary Care Provider Active Team Status: Inactive Member Role Status Dates Shanique Schwab DO Primary Care Provider, Attending Hilary rockwell Active Title Clerk Relationship Specialty Start Date End Date Shanique Schwab DO [address] [place] [address] PCP - General Family Medicine 08/30/23 Team Status: Inactive Member Role Status Dates Shanique Schwab DO Primary Care Provider Active Rosemary Cartagena MD Attending Provider Active Title Clerk Relationship Specialty Start Date End Date Shanique Schwab DO [address] [place] [address] PCP - General Family Medicine 08/30/23 Title Clerk Relationship Specialty Start Date End Date Shanique Schwab DO [address] [place] [address] PCP - General Family Medicine 08/30/23 Team Status: Inactive Member Role Status Dates Shanique Schwab DO Primary Care Provider Active Start: December 03, 2023 End: December 03, 2023 Rosemary Cartagena MD Attending Provider Active Star t: December 03, 2023 End: December 03, 2023 Title Clerk Relationship Specialty Start Date End Date Shanique Schwab DO [address] [place] [address] PCP - General Family Medicine 08/30/23 Title Clerk Relationship Specialty Start Date End Date Shanique Schwab DO [address] [place] [address] PCP - General Family Medicine 08/30/23 Team Status: Inactive Member Role Status Dates Shanique Schwab DO Primary Care Provider Active Start: February 18, 2024 End: February 18, 2024 Viky Rollins PA-C Attending Provider Active Sta rt: February 18, 2024 End: February 18, 2024 [facility] APRN Other Provider Active Start : February 18, 2024 End: February 18, 2024 Team Status: Inactive Member Role Status Dates Shanique Schwab DO Primary Care Provider Active Start: March 06, 2024 End: March 06, 2024 Rosemary Cartagena MD Attending Provider Active Star t: March 06, 2024 End: March 06, 2024 Team Status: Inactive Member Role Status Dates Shanique Schwab DO Primary Care Provider Active Start: April 03, 2024 End: April 03, 2024 Alexei Van MD Attending Provider Active S tart: April 03, 2024 End: April 03, 2024 Goals (unrecognized section and content) Goals may be documented in a n alternate section FOR RECORDS PERTAINING TO PATIENTS WHO ARE OR HAVE BEEN ENROLLED IN A CHEMICAL DEPENDENCY/SUBSTANCEABUSE PROGRAM, SOME INFORMATION MAY BE OMITTED. This clinical summary was aggregated from multiple sources. Caution should be exercised in using it in the provision of clinical care. This summary normalizes information from multiple sources, and as a consequence, information in this document may materially change the coding, format and clinical context of patient data. In addition, data may be omitted in some cases. CLINICAL DECISIONS SHOULD BE BASED ON THE PRIMARY CLINICAL RECORDS. [facility] [employer] [facility]. provides no warranty or guarantee of the accuracy or completeness of information in this document.
== END 2024-05-03 09:33 | disposition home or self-care (01) ==
LOC: US 09:33
PROVIDERS: PCP Family Medicine; Visit Provider Nurse Practitioner Family
DX: R10.9 Unspecified abdominal pain (principal); Z85.46 Personal history of malignant neoplasm of prostate; Z87.442 Personal history of urinary calculi
CPT/HCPCS: 74018; 76775

== ENCOUNTER 2024-07-06 13:11 | Outpatient (RCR) | payer MEDICARE, OTHER, SELFPAY | END 2024-08-04 10:09 | disposition home or self-care (01) | LOC: PT 13:11 | PROVIDERS: PCP Family Medicine; Visit Provider Physician Assistant Medical | DX: R26.9 Unspecified abnormalities of gait and mobility (principal); R26.89 Other abnormalities of gait and mobility; M54.42 Lumbago with sciatica, left side; M54.41 Lumbago with sciatica, right side; G89.29 Other chronic pain | CPT/HCPCS: 97112; 97163; 97530 ==

== ENCOUNTER 2024-08-14 14:51 | Outpatient (RCR) | payer MEDICARE, OTHER, SELFPAY | END 2024-08-15 13:15 | disposition home or self-care (01) | LOC: OT 14:51 | PROVIDERS: PCP Family Medicine; Visit Provider Physician Assistant Medical | DX: M54.17 Radiculopathy, lumbosacral region (principal); I63.9 Cerebral infarction, unspecified | CPT/HCPCS: 97166 ==

== ENCOUNTER 2024-09-01 11:27 | Outpatient (OUT) | payer MEDICARE, OTHER, SELFPAY ==
--- OUTSIDE RECORDS SUMMARY | 2024-09-01 11:41 | XMS_ITS | CCD ---
Author Organization [facility] Care Team Providers Care Side Stapler Name Role Phone FABIANO WILL Unavailable Unavailable BRISTOL, SHANIQUE E Unavailable Unavailable Edgerton, Dougherty E Primary Care Provider [phone] RAÚL VALE Referring Unavailable BRISTOL, SHANIQUE E Primary Care Unavailable RAÚL VALE Admitting Unavailable RAÚL VALE Attending Unavailable Ryder Pollack Unavailable Glenda Guillen [...] Unavailable ALBIN BABIN Attending Unavailable DO Shanique Anderson Primary Care Provider [phone] DO Shanique Anderson Attending Provider Shanique Anderson DO Primary Care Prov ider DO Shanique Anderson Primary Care Provider MD Rosemary Cartagena Attending Provider Edgerton, DO Dougherty Primary Care Provider MD Rosemary Cartagena Attending Provider [phone] ROBERT Rollins Attending Provider [phone] MARISEL Heart Other Provider [phone] Edgerton, DO Dougherty Primary Care Provider MD Rosemary Cartagena Attending Provider JUSTIN SHANIQUE Primary Care Physician [phone] ROSEMARY CARTAGENA Referring Unavailable BRISTOL[facility] SHANIQUE [facility] Primary Care Unav ailable Edgerton, DO Dougherty Primary Care Provider MD Rosemary Cartagena Attending Provider Unallocated Heidy SANCHEZ Provider Primary Care Provi diomedes Viky Sage Unavailable ROBERT Rollins Attending Provider [phone] Rosemary Cartagena Attending Unavailable Cartagena, Rosemary Admitting Unavailable Edgerton, Dougherty Primary Care Unavailable Cartagena, Rosemary Attending Unavailable Cartagena, Rosemary Admitting Unavailable Edgerton, Dougherty Primary Care Unavailable Ayo, Viky Admitting Unavailable Viky Rollins Attending Unavailable Edgerton, Dougherty Primary Care Unavailable Edgerton, Dougherty Primary Care Unavailable Cartagena, Rosemary Admitting Unavailable Cartagena, Rosemary Attending Unavailable Edgerton, Dougherty Primary Care Unavailable Cartagena, Rosemary Attending Unavailable Cartagena, Rosemary Admitting Unavailable Edgerton, Shanique Primary Care Unavailable Cartagena, Rosemary Attending Unavailable Cartagena, Rosemary Admitting Unavailable Edgerton, Dougherty Primary Care Unavailable Lowe, Viky Admitting Unavailable Mayank Rollinsa Attending Unavailable [facility] Unavailable Cartagena, Roseamry Attending Unavailable Cartagena, Rosemary Admitting Unavailable Edgerton, Dougherty Primary Care Unavailable Anabel Salinas Attending Unavailable Petr PAINTING Admitting Unavailable Petr PAINTING Attending Unavailable Petr PAINTING Referring Unavailable Petr PAINTING Attending Unavailable SADAF TANNER Attending Unavailable OrAnabel mckeon X Attending Unavailable Shanique Anderson MD Primary Care Provider VIKY ROLLINS Attending Unavailable VIKY ROLLINS Attending Unavailable VIKY ROLLINS Attending Unavailable LOWMaciej, VIKY Attending Unavailable LOWMaciej, VIKY Attending Unavailable UNALLOCATED, NOMS PROVIDER Referring Unava ilable ROSEMARY CARTAGENA Attending Unavailable [facility] [place] Primary Care Unav ailable ROSEMARY CARTAGENA Attending Unavailable KASSI, ROSEMARY Referring [facility] [place] Primary Care Unav ailable [facility] Attending Unavailable ROSEMARY CARTAGENA Referring [facility] [place] Primary Care Unav ailable [facility] Attending Unavailable [facility] Referring Unavailable BRISTOL, SHNAIQUE SHRADDHA [place] Primary Care Unav ailable [facility] Attending Unavailable [facility] Referring Unavailable [facility] Primary Care Unav ailable ROSEMARY CARTAGENA Attending Unavailable KASSI, ROSEMARY Referring Unavailable [facility] [place] Primary Care Unav ailable ROSEMARY CARTAGENA Attending Unavailable VIJAY CARTAGENAA Referring Unavailable [facility] Primary Care Unav ailable Unavailable Unavailable Unavailable Allergies Allergy Classification Reported Allergen(s) Allergy Type Date of Onset Reaction(s) Facility canagliflozin (2 sources) canagliflozin Drug Allergy 04-01-20 Unknown Reaction [facility] exenatide (2 sources) exenatide Drug Allergy 04-01-20 Unknown Reaction [facility] fexofenadine (2 sources) fexofenadine Drug Allergy 04-01-20 Hives [facility] liraglutide (2 sources) liraglutide Drug Allergy 04-01-20 23 Unknown Reaction [facility] NSAIDs (2 sources) Ibuprofen Drug Allergy 04-01-20 23 Unknown Reaction [facility] Opioid Agonists (6 sources) Codeine Drug Allergy 08-28-20 21 Hallucinating, Sweat [facility] rOPINIRole (2 sources) rOPINIRole Drug Allergy 04-01-20 Unknown Reaction [facility] SITagliptin (2 sources) SITagliptin Drug Allergy 04-01-20 23 Unknown Reaction [facility] (1 source) Acetaminophen / oxyCODONE Drug Allergy 07-27-20 16 Other (See Comments) [facility] [place] (20 sources) Codeine; Translations: [codeine] Drug Allergy 12-17-19 10 Other (See Comments), Unknown, Unknown (qualifier value) [place] (20 sources) exenatide; Translations: [exenatide] Drug Allergy 04-08-20 16 Unknown, Unknown (qualifier value) [place] (9 sources) fexofenadine; Translations: [fexofenadine] Drug Allergy 02-04-20 12 Itching, Unknown, Unknown (qualifier value) [place] (1 source) fexofenadine Drug Allergy 07-27-20 16 Itching [place] (18 sources) Ibuprofen Drug Allergy 04-04-20 18 Unknown Reaction, Unknown [place] (20 sources) liraglutide; Translations: [liraglutide] Drug Allergy 12-03-19 17 Unknown, Unknown (qualifier value) [place] (6 sources) Meperidine; Translations: [Demerol] Drug Allergy 02-04-20 12 Swelling, Bilateral upper limb edema [place] (9 sources) SITagliptin Drug Allergy 05-06-20 15 Unknown Reaction [place] (1 source) Other Propensity to adverse reactions 05-06-20 15 Itching [place] (11 sources) fexofenadine; Translations: [fexofenadine] Drug Allergy 08-28-20 21 Hives [facility] (20 sources) Meperidine; Translations: [meperidine] Drug Allergy 08-28-20 21 Unknown [facility] (10 sources) Morphine; Translations: [morphine] Drug Allergy 08-28-20 21 Hallucinating [facility] (20 sources) canagliflozin; Translations: [CANAGLIFLOZIN] Drug Allergy 08-28-20 21 Unknown [facility] (20 sources) Codeine Drug Allergy Unknown [facility] Other (20 sources) fexofenadine; Translations: [Hermila] Drug Allergy 06-12-20 15 Unknown [facility] (15 sources) Ibuprofen Drug Allergy Unknown [facility] Other (20 sources) rOPINIRole Drug Allergy Unknown [facility] Other (20 sources) SITagliptin Drug Allergy Unknown [facility] Other (1 source) Codeine Drug Allergy 06-12-20 15 [facility] (2 sources) exenatide Drug Allergy [facility] (3 sources) liraglutide; Translations: [Victoza] Drug Allergy [facility] (1 source) SITagliptin Drug Allergy 08-24-20 15 [facility] (9 sources) rOPINIRole; Translations: [ropinirole] Drug Allergy 08-28-20 21 Unknown Reaction [facility] (4 sources) canagliflozin; Translations: [canagliflozin] Drug Allergy Unknown (qualifier value) [facility] (4 sources) Fish Oils; Translations: [FISH OIL] Drug Allergy 04-24-20 24 [facility] Repository (9 sources) fexofenadine / Pseudoephedrine Drug Allergy 06-22-20 06 Hives [facility] (9 sources) Meperidine Drug Allergy 08-22-20 10 Swelling [facility] (1 source) canagliflozin Drug Allergy 04-03-20 [facility] (1 source) Codeine Drug Allergy 04-03-20 [facility]ository (1 source) exenatide Drug Allergy 04-03-20 [facility]ository (1 source) Ibuprofen Drug Allergy 04-03-20 [facility] Repository (1 source) liraglutide Drug Allergy 04-03-20 [facility] Repository (1 source) SITagliptin Drug Allergy 04-03-20 [facility] Repository (1 source) Byetta Prefilled Pen; Translations: [[place] Prefilled Pen] Propensity to adverse reactions (disorder) [facility] Medications Current Medications Medication Drug Class(es) Dates [...] daly th every eight hours as needed acetaminophen (Tylenol) 500 MG tablet Take 1 tablet by mouth every 8 (eight) hours if needed Active take 1 capsule by mo uth twice daily as needed Acetaminophen 500 MG 1 capsule as needed Orally twice daily Not-Taking take 1 capsule by mo uth twice daily as needed Acetaminophen 500 MG 1 capsule as needed Orally twice daily Not-Taking Alpha Lipoic Acid (3 sources) Start: 04-25-2024 take 2 tablets by mouth once daily Alpha Lipoic Acid = 2 tab(s), Oral, Daily, Refills(s) 0 Start Date: 04/25/24 Status: Ordered amoxicillin 875 mg / clavulanate 125 mg oral tablet (4 sources) Penicillin-class Antibacterial Start: 07-21-2021 take 1 tablet by mouth every twelve hours Amoxicillin-Pot Clavulanate 875-125 MG 1 tablet Orally every 12 hrs for 10 day(s) Jul, Active amylase 42400 unt / lipase 44318 unt / protease 41339 unt delayed release oral capsule (20 sources) Start: 03-02-2023 take 3 capsules by mouth three times daily at mealtime pancrelipase, Azk-Cmyd-Oorz, (Creon) 67758-50542 units capsule TAKE 3 CAPSULES BY MOUTH THREE TIMES A DAY, WITH MEALS 03/02/2023 Active Start: 03-19-2021 End: 04-03-2024 take 3 capsules by mouth three times daily at mealtime, then take 2 capsules by mouth twice daily Yopmbw-Sutambwn-Vzsquuy (Creon) 3,000-9,500- 15,000 unit capsule,delayed release(DR/EC) Active 0 PO As Directed April 03, 2024 11:34am 3 capsules with meals three times a day, 2 capsules with snacks twice a day orally as directed; Start: 04-08-2016 take 2 capsules by m outh three times daily Creon 36,000-114,000- 180,000 unit capsule,delayed release(DR/EC) capsule Take 2 capsules by mouth 3 times daily (morning, midday, late afternoon). 04/08/2016 Active amylases 16113 unt / endopeptidases 9500 unt / lipase 3000 unt delayed release oral capsule (1 source) Start: 06-12-2019 take 2 capsules by mouth three times daily at mealtime 2 capsule, Oral, 3 TIMES DAILY WITH MEALS, First dose on Wed06/12/19 at 1700 Patient may take home supply. apixaban 5 mg oral tablet (20 sources) Factor Xa Inhibitor Start: 12-09-2018 End: 01-30-2025 take 1 tablet by mouth in the morning apixaban (Eliquis) 5 MG tablet Take 5 mg by mouth in the morning and 5 mg in the evening. 12/06/2023 12/05/2024 Active take 2 tablets by mouth once cheng ly Eliquis 5 MG as directed Orally 2 tablets once daily Active azelastine hydrochloride 0.137 mg/actuat metered dose nasal spray (9 sources) Histamine-1 Receptor Antagonist Start: 12-20-2023 azelastine (Astelin) 0.1 % nasal spray 12/20/2023 Active Biotin (1 source) take 26252 [IU] by mouth twice daily BIOTIN PO Take 10,000 Units by mouth 2 times daily 0 Active busPIRone hydrochloride 5 mg oral tablet (11 sources) take 1 tablet by mouth in the morning busPIRone (Buspar) 5 MG tablet Take 5 mg by mouth in the morning and 5 mg before bedtime. Active Calcium Carb-Cholecalciferol (CALCIUM CARBONATE-VITAMIN D3 PO) (9 sources) take 1 capsule by mouth in the morning Calcium Carb-Cholecalcif neela (CALCIUM CARBONATE-VITAMI N D3 PO) Take 1 capsule by mouth in the morning. Active calcium carbonate 1250 mg / cholecalciferol 200 unt oral tablet (15 sources) Vitamin D Start: 04-25-2024 take 1 tablet by mouth twice daily calcium (as carbonate)-vitam in D 500 mg-200 intl units oral tablet 1 tab(s), Oral, BID, Refill(s) 0 Start Date: 04/25/24 Status: Ordered Start: 09-14-2023 take 1 tablet by daly th once daily Calcium Carb-Cholecalciferol (OYSCO 500 + D) 500-5 MG-MCG tablet Take 1 tablet by mouth Daily 09/14/2023 Active Start: 06-12-2019 take 1 tablet by daly twice daily at mealtime 1 tablet, Oral, 2 TIMES DAILY WITH MEALS, First dose on Wed06/12/19 at 1700 Patient may take home supply. Start: 03-07-2019 take 1 tablet by daly th at lunch Calcium Carbonate-Vitamin D3 Active 1 TAB Oral With lunch and supper March 07, 2019 6:55pm Calcium Carbonate-Vitamin D3 (Oyster Shell Calcium-Vit D3) 500 mg-5 mcg (200 unit) Tablet (10 sources) Start: 09-11-2021 take 2 tablets by mouth once daily Calcium Carbonate-Vitamin D3 (Oyster Shell Calcium-Vit D3) 500 mg-5 mcg (200 unit) Tablet Active 2 TAB PO Daily 60 September 11, 2021 12:00am Start: 09-11-2021 take 2 tablets by mo [facility] once daily Calcium Carbonate-Vitamin D3 (Oyster Shell Calcium-Vit D3) 500 mg-5 mcg (200 unit) Tablet Active 2 TAB PO Daily 60 September 11, 2021 1:00am CALCIUM CARBONATE-VITAMIN D3 ORAL (8 sources) take 1 capsule by mouth twice daily CALCIUM CARBONATE-VITAMIN D3 ORAL Take 1 capsule by mouth 2 times a day. Active take 1 capsule by mouth once [...] carbidopa 10 mg / levodopa 100 mg oral tablet (20 sources) Aromatic Amino Acid Decarboxylation Inhibitor, Aromatic Amino Acid Start: 024 carbidopa-levodopa 10 mg-100 mg oral tablet, disintegrating 1 tab(s), Oral, Refill(s) 0 Start Date: 04/25/24 Status: Ordered Start: 01-25-2024 End: 10-11-2024 take 1 tablet by mouth in the morning, then take 1 tablet by mouth in the evening, then take 1 tablet by mouth at bedtime carbidopa-levodopa (Sinemet) 10-100 MG tablet Indications: Gait difficulty Take 1 tablet by mouth in the morning and 1 tablet in the evening and 1 tablet before bedtime. 8-9am, 11am-12pm, and 4pm. 270 tablet 2 07/13/2024 10/11/2024 Active Start: 09-02-2021 End: 09-11-2021 take 0.5 tablet by mouth twice daily Carbidopa-Levodopa Active 0.5 TAB PO Twice daily September 11, 2021 1:00am take 1 tablet by daly th three times daily carbidopa-levodopa (Sinemet) 10-100 mg tablet Take 1 tablet by mouth 3 times a day. Active Carbidopa-Levodo pa 10-100 MG 1/2 tablets Orally morning and night Active carboxymethylcellulose sodiu m 5 mg/ml ophthalmic solution (20 sources) Start: 09-14-2023 carboxymethylc ellulose (Refresh Plus) 0.5 % ophthalmic solution Administer 1 drop into both eyes 09/14/2023 Active Start: 06-12-2019 1 drop, Both E yes, [...] morning March 07, 2019 12:00am both eyes take 1 drop(s) into the eye(s) three times daily carboxymethylcellulose (REFRESH PLUS) 0. 5 % SOLN ophthalmic solution 1 drop 3 times daily 0 Active carvedilol 3.125 mg oral tablet (20 sources) alpha-Adrenergic [place], beta-Adrenergic [place] Start: 11-15-2023 End: 03-27-2025 take 1 tablet by mouth twice daily carvedilol (Coreg) 3.125 mg tablet Indications: Ischemic cardiomyopathy , 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 Take 1 tablet (3.125 mg) by mouth 2 times daily (morning and late afternoon). 180 tablet 1 03/27/2024 03/27/2025 Active Start: 02-12-2023 take 1 tablet by daly [...] 0 Start Date: 04/25/24 Status: Ordered Start: 12-23-2023 cholecalcifero l (SM Vitamin D3) 25 MCG (1000 UT) tablet Take 3,000 Units by mouth in the evening. Take with meals 12/23/2023 Active Start: 09-11-2021 take 75 ug by mouth once daily Cholecalciferol (Vitamin D3) Active 75 MCG PO Daily with supper 90 September 11, 2021 1:00am Start: 03-07-2019 take 3000 [IU] by mo ut once daily Cholecalciferol (Vitamin D3) Active 3000 UNIT Oral Daily with supper March 07, 2019 6:55pm Start: 03-07-2019 End: 09-11-2021 take 3 tablets by mouth once daily Cholecalciferol (Vitamin D3) (Vitamin D3) 1,000 unit Tablet Discontinued 3000 UNIT PO Daily with supper March 07, 2019 12:00am September 11, 2021 10:18am take 1 tablet by daly th once daily cholecalciferol (Vitamin D-3) 5,000 Units tablet Take 1 tablet (5,000 Units) by mouth once daily. Active take 3 tablets by vt ut every twenty-four hours Vitamin D3 25 MCG (1000 UT) 3 tablet Orally Once a day Active ciprofloxacin 500 mg oral tablet (2 sources) Quinolone Antimicrobial Start: 05-01-2024 Cipro 500 mg Tab See Instructions, Take 1 tab day prior to procedure and 1 tab day of procdure - afterwards, # 2 tab(s), Refills(s) 0, Pharmacy: [facility]/pharmacy #[id number], 167, cm, 04/25/24 13:59:00 EDT, Height/Length Dosing, 72, kg, 04/25/24 13:59:00 EDT, Weight Dosing Start Date: 05/01/24 Status: Ordered clopidogrel 75 mg oral tablet (20 sources) [id number] Platelet Inhibitor Start: 05-07-2015 End: 01-30-2025 take 1 tablet by mouth in the morning clopidogrel (Plavix) 75 MG tablet Take 75 mg by mouth in the morning. 12/06/2023 12/05/2024 Active Creon 68525 UNIT (20 sources) Creon 74343 UNIT 3 WITH MEALS 2 WITH SNACK Orally three times daily for 90 day(s) Active Creon 81244 UNIT 2 WITH MEALS 1 WITH SNACK Orally three times daily for 30 days Active cyproheptadine hydrochloride 4 mg oral tablet (17 sources) Start: 06-12-2019 take 2 mg by [...] 10/25/2023 Discontinued (Therapy completed) DAILY MULTI-VITAMIN ORAL (8 sources) take 1 capsule by mo uth [...] mg oral tablet (20 sources) Benzodiazepine Start: 03-04-2023 End: 09-11-2024 take 1 tablet by mouth at bedtime diazePAM (Valium) 2 MG tablet Indications: Vertigo , Anxiety Take 1 tablet (2 mg) by mouth at bedtime Due 08/21/24 90 tablet 1 06/13/2024 09/11/2024 Active Start: 03-04-2023 take 1 mg by mouth e very six hours as needed diazePAM (Valium) 2 mg tablet Take 0.5 tablets (1 mg) by mouth every 6 hours if needed. 03/04/2023 Active Start: 09-11-2021 End: 09-11-2024 take 1 mg by mouth at bedtime diazepam 2 mg Tab 1 mg = 0.5 tab(s), Oral, Bedtime, Refills(s) 0 Start Date: 04/25/24 Status: Ordered Start: 03-07-2019 take 2 mg by mouth [...] bedtime Active digoxin 0.125 mg oral tablet (18 sources) Cardiac Glycoside Start: 10-25-2023 End: 01-09-2025 take 1 tablet by mouth once daily digoxin (Lanoxin) 125 MCG tablet Indications: 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 Take 1 tablet (125 mcg) by mouth once daily. 90 tablet 3 01/10/2024 01/09/2025 Active Start: 03-07-2019 End: 08-28-2021 take 125 [...] CLEANUP) donepezil hydrochloride 5 mg oral tablet (12 sources) Start: 09-20-2023 donepezil (Aricept) 5 MG tablet 09/20/2023 Active famotidine 20 mg oral tablet (20 [...] 01-06-2018 take 1 tablet by daly th once daily Famotidine (Pepcid) 20 mg tablet Active 20 MG PO Daily 90 90 May 02, 2024 12:00am Start: 01-06-2018 take 1 tablet by daly th twice daily famotidine (Pepcid) 20 mg tablet Take 1 tablet (20 mg) by mouth twice a day. 01/06/2018 Active ferrous sulfate 325 mg delayed release [...] propionate 0.05 mg/actuat metered dose nasal spray (20 sources) Corticosteroid Start: 09-05-2021 End: 09-11-2021 Fluticasone Propionate Active 2 SPRAY INTRANASAL Every morning September 11, 2021 1:00am furosemide 20 mg oral tablet (20 sources) Loop Diuretic Start: 12-22-2023 End: 03-15-2025 furosemide (Lasix) 20 MG tablet 12/22/2023 Active Start: 09-11-2021 Furosemide Act cyn 20 MG [...] (3 sources) Start: 06-12-2019 15 g, Oral, MA N, Low blood sugar, Starting Wed06/12/19 at [...] Start: 09-04-2017 take 1 capsule by mo ut twice daily at mealtime VASCEPA 1 g CAPS capsule Take 1 g by mouth 2 times daily (with meals) 0 09/04/2017 Active take 2 capsules by m outh every twelve hours Pamcepa 1 GM 2 capsules with meals Orally [...] 2019 12:00am April 03, 2024 11:24am inject 25 [IU] by rtohman bcutaneous injection at mealtime insulin glargine (Lantus) 100 UNIT/ML pen Inject 25 Units under the skin in the morning. Inject with meals. Active inject 14 [IU] by rothman bcutaneous injection [...] MEALS, First dose on Wed06/12/19 at 1700 Medium Dose Corrective Algorithm Glucose: [...] 0 Start Date: 04/25/24 Status: Ordered Start: 08-12-2023 take 1 capsule by [facility] in the morning loperamide (Imodium) 2 MG capsule Take 2 mg by mouth in the morning. 08/12/2023 Active Start: 08-31-2022 take 1 capsule by [facility] every six hours Imodium A-D 2 MG 1 capsule as needed Orally Four times a day for 90 days Aug, Active Start: 06-12-2019 take 2 mg by mouth f our times daily as needed for diarrhea 2 mg, Oral, 4 TIMES DAILY PRN, Diarrhea, Starting 06/12/19 at 1457 After each loose stool. Patient may take home supply. Loperamide A-D N ot-Taking Loperamide A-D A ctive loratadine 10 mg oral tablet (20 sources) Start: 04-25-2024 take 1 tablet by mouth once daily loratadine 10 mg Tab 10 mg = 1 tab(s), Oral, Daily, Refills(s) 0 Start Date: 04/25/24 Status: Ordered Start: 03-07-2019 End: 12-22-2023 take 1 tablet by mouth once daily loratadine 10 mg Tab 10 mg = 1 tab(s), Oral, Daily, Refills(s) 0 Start Date: 04/25/24 Status: Ordered take 1 capsule by [facility] once daily Loratadine 10 MG CAPS Take [...] mg extended release oral capsule (20 sources) P-weejnk-Q-aspartate Receptor Antagonist Start: 12-28-2022 End: 10-11-2024 take 1 capsule by mouth once daily Memantine HCl ER 28 MG capsule sustained-release 24 hr Indications: Memory loss Take 28 mg by mouth Daily 90 capsule 1 07/13/2024 10/11/2024 Active Start: 06-12-2019 take 28 mg by mouth once daily 28 mg, Oral, NIGHTLY, First dose on Wed06/12/19 at 2100 Patient may take home supply. Start: 03-07-2019 End: 04-18-2019 take 28 mg by mouth once daily in the evening Memantine Discontinued 28 MG PO Every evening March 07, 2019 12:00am April 18, 2019 7:50pm Start: 04-20-2017 memantine (PHILIP PURIA) 10 MG tablet Take 28 mg by [...] by mouth 2 times daily 0 Active 24 hr mirabegron 50 mg extended release oral tablet (2 sources) beta3-Adrenergic Agonist Start: 06-15-2024 take 1 tablet by mouth once daily Myrbetriq 50 mg oral tablet, extended release 50 mg = 1 tab(s), Oral, Daily, # 30 tab(s), Refills(s) 11, Pharmacy: [facility]/pharmacy #[id number], 167, cm, 06/15/24 10:14:00 EDT, Height/Length Dosing, 72, kg, 06/15/24 10:14:00 EDT, Weight Dosing Start Date: 06/15/24 Status: Ordered Mometasone (4 sources) Corticosteroid Start: 04-25-2024 take 50 ug by inhalation twice daily mometasone 50 mcg, Inhalation, BID, Refills(s) 0 Start Date: 04/25/24 Status: Ordered mometasone (NASO NEX) 50 MCG/ACT nasal spray 2 sprays by Nasal route daily 0 Active Multivitamin preparation (20 sources) Multivitamin - a s directed Orally Once a day Active multivitamin with minerals (Cerovite) 18-400 mg-mcg tablet tablet (9 sources) take 1 capsule by mouth in the morning multivitamin with minerals (Cerovite) 18-400 mg-mcg tablet tablet Take 1 capsule by mouth in the morning. Active Multivitamins and Minerals (3 sources) Start: 4 Multivitamins and Minerals Daily, Refill(s) 0 Start Date: 04/25/24 Status: Ordered niacin 500 mg oral tablet (11 sources) Nicotinic Acid Start: 9 take 1000 mg by mouth at breakfast Niacin Active 1000 MG Oral With breakfast and lunch March 07, 2019 6:55pm Start: 03-07-2019 End: 03-19-2021 take 2 tablets by mouth at breakfast Niacin (Niacor) 500 mg Tablet Discontinued 1000 MG PO With breakfast and lunch March 07, 2019 12:00am March 19, 2021 7:37am nitroglycerin 0.4 mg sublingual tablet (20 sources) Nitrate Vasodilator Start: 11-10-2023 End: 03-28-2025 nitroglycerin (Nitrostat) 0.4 mg SL tablet Indications: Coronary artery disease involving [place] coronary artery of [place] heart without angina pectoris Place 1 tablet (0.4 mg) under the tongue every 5 minutes if needed for chest pain (Report to the ER or call 911 after third dose.). 15 tablet 1 03/28/2024 03/28/2025 Active Start: 06-12-2019 0.4 mg, [place] gual, EVERY 5 MIN PRN, Chest pain, Starting 06/12/[address] 1 tablet under tongue [...] EVERY 6 HOURS PRN, Nausea, Vomiting, Starting 06/12/19 at 1457, Recovery(Cath) Pancrelipase, Fng-Hdrr-Hmop, (CREON PO) (1 source) take 2 capsules by mouth three times daily at mealtime Pancrelipase, Eam-Pvoh-Juwt, (CREON PO) Take 2 capsules by mouth 3 times daily (with meals) 0 Active PARoxetine hydrochloride 20 mg oral tablet (20 sources) Serotonin Reuptake Inhibitor Start: 4 take 10 mg by mouth once daily paroxetine 20 mg Tab 10 mg = 0.5 tab(s), Oral, Daily, Refills(s) 0 Start Date: 04/25/24 Status: Ordered Start: 03-23-2023 take 1 tablet by daly in the morning PARoxetine (Paxil) 20 MG tablet Take 20 mg by mouth in the morning. 03/23/2023 Active Start: 06-12-2019 [...] 2021 10:18am take 1 tablet by daly every twenty-four hours PARoxetine HCl 10 MG 1 tablet in the morning Orally Once a day Active take 20 mg by mouth once daily P ARoxetine HCl (PAXIL PO) Take 20 mg by mouth daily 0 Active perphenazine 2 mg oral tablet (11 sources) Phenothiazine take 1 tablet by mouth in the morning, then take 1 tablet by mouth once daily at bedtime perphenazine 2 MG tablet Take 2 mg by mouth in the morning and 2 mg before bedtime. Patient is taking once a day at night. Active polyethylene glycol 3350 84405 mg powder for oral solution (20 sources) Osmotic Laxative Start: 1 End: 4 Polyethylene Glycol 3350 (Miralax) 17 gram powder in packet Active 17 GM PO Twice daily April 03, 2024 11:23am take 17 g by mouth once daily Mi raLax 17 GM/SCOOP as directed Orally Once a day Not-Taking Psyllium (3 sources) Start: 04-25-2024 take 6 g by mouth [...] to skin Transdermal Once a day Active rosuvastatin calcium 5 mg oral tablet (2 sources) HMG-CoA Reductase Inhibitor Start: 04-24-2024 End: 04-24-2025 take 1 tablet by mouth once daily rosuvastatin (Crestor) 5 mg tablet Indications: Coronary artery disease involving [place]ree coronary artery of [place]ree heart without angina pectoris Take 1 tablet (5 mg) by mouth once daily. 90 tablet 3 04/24/2024 04/24/2025 Active sacubitril 24 mg / valsartan 26 mg oral tablet (19 sources) Angiotensin 2 Receptor [place] Start: 04-24-2024 End: 07-27-2025 take [id number] mg by mouth in the evening sacubitriL-valsartan (Entresto) 24-26 mg tablet Indications: Congestive heart failure, NYHA class 3, chronic, systolic , Ischemic cardiomyopathy Take 1 tablet by mouth early in the morning.. Take the 49/51mg tablet in the evening 90 tablet 3 07/27/2024 07/27/2025 Active Start: 04-24-2024 End: 04-24-2025 take [id number] mg by mouth once daily in the morning sacubitriL-valsartan (Entresto) 49-51 mg tablet Indications: Ischemic cardiomyopathy , Congestive heart failure, NYHA class 3, chronic, systolic Take 1 tablet by mouth once daily at bedtime. Take the 24/26mg daily in the morning 90 tablet 3 04/24/2024 07/27/2024 Discontinued (Dose adjustment) Start: 10-25-2023 End: 12-05-2024 take 1 tablet by mouth twice daily sacubitriL-valsartan (Entresto) 24-26 mg tablet Indications: Ischemic cardiomyopathy Take 1 tablet by mouth 2 times a day. 180 tablet 3 01/31/2024 04/24/2024 Discontinued (Reorder) 3 ml sodium chloride 9 mg/ml injection (3 sources) Start: 06-12-2019 10 mL, Intrave nous, EVERY 12 HOURS SCHEDULED (2 times per day), First dose on Wed06/12/19 at 2100, Recovery(Cath) Start: 06-12-2019 take 10 mL intraveno us route once 10 mL, Intravenous, PRN, Line Care, Starting Wed06/12/19 at 1457 After every IV line use Recovery(Cath) Start: 06-12-2019 0.9 % sodium c hloride infusion tamsulosin hydrochloride 0.4 mg oral capsule (20 sources) alpha-Adrenergic [place] Start: 06-03-2018 End: 09-11-2021 take 1 capsule by mouth at bedtime tamsulosin 0.4 mg Cap 0.4 mg = 1 cap(s), Oral, Bedtime, Refills(s) 0 Start Date: 04/25/24 Status: Ordered Start: 06-03-2018 take 0.4 mg by mouth [...] supply. traZODone hydrochloride 50 mg oral tablet (15 sources) Serotonin Reuptake Inhibitor Start: 2023 take 50 mg by mouth once daily Trazodone Active 50 MG PO Daily April 03, 2024 12:00am Vitamin D (2 sources) Start: 2018 take 3000 [IU] by mouth once daily at dinner 3,000 Units, Oral, DAILY WITH DINNER, First dose on Wed06/12/19 at 1730 Patient may take home supply. take 3 tablets by mo ut once daily, then take 1 tablet by mouth vitamin D (CHOLECALCIFEROL) 1000 UNIT TA BS tablet Take 3,000 Units by mouth Daily with supper 0 Active Vitamin D3 497053 UNIT/GM (6 sources) Vitamin D3 37436 0 UNIT/GM as directed Orally Once a day Active Vitamin D3 25 MCG (1000 UT) (8 sources) take 3 tablets by mo uth once daily Vitamin D3 25 MCG (1000 [...] aspirin 81 mg delayed release oral tablet (20 sources) Platelet Aggregation Inhibitor, Nonsteroidal Anti-inflammatory Drug Start: 03-07-2019 End: 03-19-2021 take 81 mg by mouth once daily Aspirin Discontinued 81 MG PO Daily 0 April 19, 2019 12:00am March 19, 2021 7:35am Calcium Carbonate-Vitam in D3 (Calcium 500 + D) 500 mg(1,250mg) -200 unit Tablet (10 sources) Start: 03-07-2019 End: 09-11-2021 Calcium Carbonate-Vitamin [...] CLEANUP) doxepin hydrochloride 25 mg oral capsule (20 sources) Tricyclic Antidepressant Start: 05-01-2017 End: 08-28-2021 [...] 2021 1:55pm glucagon (rdna) 1 mg injection (20 sources) Antihypoglycemic Agent Start: 03-07-2019 End: 08-28-2021 inject 1 mg by intramuscular injection once Glucagon (Human Recombinant) (Glucagon Emergency Kit (Human)) 1 mg Recon Soln Discontinued 1 MG IM Once March 07, 2019 12:00am August 28, 2021 2:19pm Insulin Aspart U-100 (Novolog Flexpen U-100 Insulin) 100 unit/mL (3 mL) Insulin Pen (10 sources) Start: 03-07-2019 End: 08-28-2021 Insulin Aspart [...] as directed Orally Once a day Not-Taking omega 7-jjv-mvj-fish oil (Fish OiL) 1,000 mg (120 mg-180 mg) capsule (1 source) End: 04-24-2024 take 2 capsules by mouth in the morning omega 8-qky-mfu-fish oil (Fish OiL) 1,000 mg (120 mg-180 mg) capsule Take 2 capsules (2,000 mg) by mouth early in the morning.. 04/24/2024 Discontinued (Side effects) Potassium Chloride (20 sources) Start: 04-25-2024 take 1 tablet by mouth once daily Potassium Chloride (Yku-Lukq-Dsl 10) 10 mEq oral tablet, extended release 10 mEq = 1 tab(s), Oral, Daily, Refills(s) 0 Start Date: 8/13/24 Status: Ordered Start: 12-22-2023 End: 01-30-2025 take 1 tablet by mouth once daily potassium chloride CR (Klor-Con) 10 mEq ER tablet Indications: Ischemic cardiomyopathy Take 1 tablet (10 mEq) by mouth once daily. Do not crush, chew, or split. 90 tablet 3 01/31/2024 01/30/2025 Active Start: 06-12-2019 10 mEq, Oral, DAILY WITH LUNCH, First dose on Wed06/12/19 at 1515 Do not crush or break. [...] Therapy Active simethicone 80 mg chewable tablet (13 sources) Start: 03-07-2019 End: 09-11-2021 take 80 [...] Not-Taking warfarin sodium 1 mg oral tablet (10 sources) Vitamin K Antagonist Start: 03-07-2019 End: 03-07-2019 Warfarin Discontinued 0 .ROUTE .COMPLEX March 07, 2019 12:00am March 07, 2019 9:14pm As Instructed Problems Active Problems Problem Classification Problem Date Documented Da te Episodic/Chronic Abdominal pain (20 sources) Abdominal pain; Translations: [Flank pain] 04-24-2020 Episodic Acute and unspecified renal failure (1 source) Acute injury of kidney; Translations: [MIGUEL ANGEL (acute kidney injury)] Onset: 10-06-2013 Acute cerebrovascular disease (20 sources) Cerebrovascular accident; Translations: [Cerebral infarction, unspecified] Onset: 01-24-2024 09-02-2021 Chronic Administrative/social admission (10 sources) Other reduced mobility; Translations: [Impaired mobility and activities of daily living] 09-04-2021 Episodic Anxiety disorders (19 sources) Posttraumatic stress disorder; Translations: [Anxiety] Onset: 01-24-2024 10-04-2013 Chronic Calculus of urinary tract (6 sources) Kidney stone; Translations: [History of calculus of kidney] Onset: 04-02-2015 04-02-2015 Episodic Cancer of prostate (11 sources) Malignant tumor of prostate; Translations: [Malignant neoplasm of prostate] Onset: 07-24-2019 10-25-2023 Chronic Cancer of prostate (17 sources) History of malignant neoplasm of prostate; Translations: [Personal history of malignant neoplasm of prostate] Onset: 04-02-2015 04-02-2015 Episodic Cardiac dysrhythmias (20 sources) Paroxysmal atrial fibrillation; Translations: [Atrial fibrillation] Onset: 12-03-2017 12-03-2017 Chronic Chronic kidney disease (16 sources) Chronic kidney disease; Translations: [Chronic kidney disease, unspecified] Onset: 04-24-2024 09-04-2021 Chronic Chronic kidney disease (2 sources) Chronic kidney disease; Translations: [Chronic kidney disease, stage 3b (Multi)] Onset: 04-24-2024 Chronic obstructive pulmonary disease and bronchiectasis (4 sources) Chronic obstructive lung disease; Translations: [COPD (chronic obstructive pulmonary disease)] 12-03-2017 Chronic Conduction disorders (20 sources) H/O: cardiac pacemaker in situ; Translations: [Cardiac defibrillator in situ] Onset: 06-12-2019 06-12-2019 Chronic Congestive heart failure; nonhypertensive (20 sources) Congestive heart failure; Translations: [Heart failure, unspecified] Onset: 10-25-2023 09-02-2021 Chronic Coronary atherosclerosis and other heart disease (20 sources) Coronary arteriosclerosis; Translations: [Generalized ischemic myocardial dysfunction] Onset: 08-30-2023 12-03-2017 Chronic Deficiency and other anemia (3 sources) Anemia 04-19-2024 Episodic Delirium, dementia, and amnestic and other cognitive disorders (20 sources) Dementia associated with another disease; Translations: [Dementia in other diseases classified elsewhere without behavioral disturbance] Onset: 10-25-2023 10-25-2023 Chronic Diabetes mellitus with complications (7 sources) Diabetes mellitus; Translations: [Other specified diabetes mellitus with other specified complication] Onset: 08-30-2023 08-30-2023 Chronic Diabetes mellitus without complication (20 sources) Type 2 diabetes mellitus; Translations: [Diabetes mellitus without complication] Onset: 12-03-2017 12-03-2017 Chronic Disorders of lipid metabolism (6 sources) Hypercholesterolemia; Translations: [Mixed hyperlipidemia] 04-19-2024 Chronic 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 (15 sources) Hypertensive disorder; Translations: [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] Onset: 10-25-2023 10-25-2023 Chronic Fluid and electrolyte disorders (10 sources) Hypokalemia; Translations: [Hypokalemia] 09-04-2021 Episodic Genitourinary symptoms and ill-defined conditions (6 sources) Urge incontinence of urine; Translations: [Unspecified urinary incontinence] Onset: 04-02-2015 04-02-2015 Chronic Headache; including migraine (4 sources) Chronic post-traumatic headache; Translations: [Chronic post-traumatic headache, not intractable] 06-13-2024 Chronic Heart valve disorders (6 sources) Non-rheumatic mitral regurgitation ; Translations: [Nonrheumatic mitral (valve) insufficiency] Onset: 04-24-2024 04-24-2024 Chronic Hyperplasia of prostate (19 sources) Benign prostatic hypertrophy with outflow obstruction; Translations: [Benign prostatic hyperplasia] Onset: 04-02-2015 06-26-2017 Chronic Miscellaneous mental health disorders (9 sources) Chronic insomnia; Translations: [Psychophysiologic insomnia] Onset: 01-24-2024 01-24-2024 Chronic Mood disorders (19 sources) Bipolar affective disorder, currently manic, severe, with psychosis; Translations: [Bipolar disorder, current episode manic severe with psychotic features] Onset: 10-25-2023 10-25-2023 Chronic Nutritional deficiencies (12 sources) Vitamin D deficiency; Translations: [Vitamin D deficiency, unspecified] Onset: 01-24-2024 04-19-2024 Chronic Osteoarthritis (4 sources) Osteoarthritis; Translations: [Arthritis] Onset: 10-04-2013 04-19-2024 Chronic Osteoporosis (13 sources) Senile osteoporosis; Translations: [Age-related osteoporosis without current pathological fracture] Onset: 07-24-2021 Resolved: 07-24-2021 Chronic Other acquired deformities (12 sources) Lumbar spondylolisthesis; Translations: [Spondylolisthesis, lumbar region] Episodic Other aftercare (20 sources) Long-term current use of anticoagulant; Translations: [[facility] (current) use of anticoagulants] Onset: 08-30-2023 09-04-2021 Episodic Other aftercare (1 source) Treatment changed; Translations: [Other rodent exterminator (current) drug therapy] 10-25-2023 Episodic Other aftercare (1 source) Long-term current use of drug therapy; Translations: [[facility] (current) use of antithrombotics/antip latelets] Onset: 07-25-2024 Episodic Other and ill-defined heart disease (3 sources) Heart disease 04-19-2024 Chronic Other bone disease [...] knee arthroplasty] Onset: 10-04-2013 12-03-2017 Chronic Other connective tissue disease (3 sources) Recurrent falls ; Translations: [Repeated falls] Onset: 07-27-2024 07-28-2024 Episodic Other connective tissue disease (2 sources) Repeated falls; Translations: [Repeated falls] Onset: 07-27-2024 Episodic Other diseases of kidney and ureters (1 source) Urinary tract obstruction; Translations: [Other obstructive and reflux uropathy] Onset: 06-15-2024 Episodic Other ear and sense organ disorders (12 sources) Hearing loss; Translations: [Unspecified hearing loss, unspecified ear] Onset: 01-24-2024 04-25-2024 Chronic Other ear and sense organ disorders (3 sources) Sensorineural hearing loss, bilateral 04-19-2024 Chronic Other gastrointestinal disorders (20 sources) Constipation alternates with diarrhea; Translations: [Other specified symptoms and signs involving the digestive system and abdomen] Episodic Other gastrointestinal disorders (9 sources) Incontinence of feces; Translations: [Full incontinence of feces] Episodic Other gastrointestinal disorders (11 sources) Diarrhea, unspecified; Translations: [DIARRHEA UNSPECIFIED] Onset: 12-15-2021 Resolved: 12-15-2021 Episodic Other gastrointestinal disorders (10 sources) Chronic constipation; Translations: [Other constipation] 09-04-2021 Episodic Other male genital disorders (1 source) Impotence of organic origin; Translations: [Impotence of organic origin] Onset: 04-02-2015 04-02-2015 Chronic Other male genital disorders (3 sources) Secondary erectile dysfunction Onset: 04-02-2015 04-19-2024 Chronic Other male genital disorders (1 source) Phimosis; Translations: [Phimosis] Onset: 07-25-2024 Episodic Other nervous system disorders (20 sources) Chronic pain; Translations: [Other chronic pain] Chronic Other nervous system disorders (2 sources) Other chronic pain; Translations: [Other chronic pain G89.29] Onset: 06-16-2021 Resolved: 07-03-2021 Chronic Other nervous system disorders (1 source) Narcolepsy with cataplexy; Translations: [NARCOLEPSY WITH CATAPLEXY] Onset: 11-28-2021 Chronic Other nervous system disorders (9 sources) 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; Translations: [Circadian rhythm sleep disorder, unspecified type] Onset: 01-24-2024 01-24-2024 Chronic Other nervous system disorders (9 sources) Lesion of ulnar nerve; Translations: [Lesion of ulnar nerve, unspecified upper limb] Onset: 01-24-2024 01-24-2024 Chronic Other nervous system disorders (17 sources) Abnormal gait; Translations: [Unspecified abnormalities of gait and mobility] Onset: 01-24-2024 06-07-2024 Episodic Other nervous system disorders (2 sources) Hyperreflexia; Translations: [Abnormal reflex] 06-13-2024 Episodic Other nervous system disorders (4 sources) Impairment of balance; Translations: [Other abnormalities of gait and mobility] 06-13-2024 Episodic Other nervous system disorders (1 source) Other abnormalities of gait and mobility; Translations: [Other abnormalities of gait and mobility] Onset: 06-29-2024 Episodic Other non-traumatic joint disorders (1 source) Arthritis of knee; Translations: [Arthritis of knee] Onset: 12-02-2017 12-02-2017 Chronic Other nutritional; endocrine; and metabolic disorders (2 sources) Body mass index (BMI) 31.0-31.9, adult; Translations: [Body mass index (BMI) 31.0-31.9, adult] Onset: 12-22-2023 Chronic Other nutritional; endocrine; and metabolic disorders (7 sources) Overweight in adulthood with body mass index of 25 or more but less than 30; Translations: [Body mass index (BMI) 29.0-29.9, adult] Onset: 12-06-2023 12-06-2023 Episodic Other nutritional; endocrine; and metabolic disorders (1 source) Weight loss; Translations: [Abnormal weight loss] Onset: 07-27-2024 07-27-2024 Episodic Other nutritional; endocrine; and metabolic disorders (2 sources) Body mass index (BMI) 28.0-28.9, adult; Translations: [Body mass index (BMI) 28.0-28.9, adult] Onset: 07-27-2024 Episodic Other nutritional; endocrine; and metabolic disorders (1 source) Obese class I; Translations: [Obesity (BMI 30.0-34.9)] Onset: 10-04-2013 Pancreatic disorders (not diabetes) (8 sources) Idiopathic chronic pancreatitis; Translations: [Other chronic pancreatitis] Onset: 10-25-2023 10-25-2023 Chronic Pancreatic disorders (not diabetes) (20 sources) Acute pancreatitis; Translations: [Exocrine pancreatic insufficiency] Onset: 03-11-2022 Resolved: 03-11-2022 Episodic Parkinson`s disease (6 sources) Parkinson's disease; Translations: [Parkinson's disease] Onset: 09-22-2021 09-02-2021 Chronic Parkinson`s disease (2 sources) Parkinson`s disease; Translations: [Parkinson's disease without dyskinesia, without mention of fluctuations (Multi)] Onset: 08-30-2023 Merary-; endo-; and myocarditis; cardiomyopathy (except that caused by tuberculosis or sexually transmitted disease) (4 sources) Cardiomyopathy; Translations: [Dilated cardiomyopathy] Onset: 09-02-2023 10-04-2013 Chronic Residual codes; unclassified (6 sources) Obstructive sleep apnea (adult) (pediatric); Translations: [OBSTRUCTIVE SLEEP APNEA] Onset: 11-26-2021 Chronic Residual codes; unclassified (1 source) Idiopathic hypersomnia with long sleep time; Translations: [IDIO HYPERSOMNIA W/LONG SLEEP TIME] Onset: 11-28-2021 Chronic Residual codes; unclassified (6 sources) Sleep apnea; Translations: [Sleep apnea, unspecified] Onset: 08-30-2023 08-30-2023 Chronic Residual codes; unclassified (20 sources) Obstructive sleep apnea syndrome; Translations: [Obstructive sleep apnea (adult) (pediatric)] Onset: 08-30-2023 10-25-2023 Chronic Residual codes; unclassified (4 sources) Sleep apnea, unspecified; Translations: [Sleep apnea, unspecified] Onset: 08-30-2023 Chronic Residual codes; unclassified (9 sources) Hypersomnia; Translations: [Hypersomnia, unspecified] Onset: 01-24-2024 01-24-2024 Chronic Residual codes; unclassified (9 sources) Restlessness and agitation; Translations: [Restlessness and agitation] Onset: 01-24-2024 01-24-2024 Chronic Residual codes; unclassified (2 sources) Periodic limb movement disorder; Translations: [Periodic limb movement disorder] 08-24-2024 Chronic Residual codes; unclassified (15 sources) Amnesia; Translations: [Other amnesia] Onset: 01-24-2024 06-07-2024 Episodic Spondylosis; intervertebral disc disorders; other back problems (20 sources) Inflammation of sacroiliac joint; Translations: [Sacroiliitis, not elsewhere classified] Onset: 06-16-2021 Resolved: 09-02-2021 Chronic Spondylosis; intervertebral disc disorders; other back problems (20 sources) Spinal stenosis, lumbar region with neurogenic claudication; Translations: [Spinal stenosis of lumbar region] Onset: 07-24-2021 Resolved: 09-02-2021 Episodic Unclassified (18 sources) Parkinson's disease; Translations: [Parkinson disease] Onset: 08-30-2023 08-30-2023 Chronic Unclassified (6 sources) Permanent atrial fibrillation; Translations: [Permanent atrial fibrillation (Multi)] Onset: 08-30-2023 Unclassified (1 source) Encounter for adjustment and management of automatic implantable cardiac defibrillator; Translations: [Encounter for adjustment and management of automatic implantable cardiac defibrillator] Onset: 09-02-2023 Unclassified (1 source) Long-term current use of drug therapy 07-25-2024 Unclassified (2 sources) Acute embolism and thrombosis of right peroneal vein; Translations: [Acute embolism and thrombosis of right peroneal vein (CMS/HCC)] Onset: 10-25-2023 Past or Other Problems Problem Classification Problem Date Documented Da te Episodic/Chronic Acute and unspecified renal failure (3 sources) Acute renal failure syndrome Onset: 4 04-19-2024 Episodic Acute posthemorrhagic anemia (2 sources) Acute posthemorrhagic anemia; Translations: [Anemia associated with acute blood loss] Onset: 4 Episodic Anxiety disorders (9 sources) Feeling irritable; Translations: [Irritability and anger] Onset: 4 01-24-2024 Episodic Conditions associated with dizziness or vertigo (20 sources) Vertigo; Translations: [Dizziness and giddiness] Onset: 4 01-24-2024 Episodic Coronary atherosclerosis and other heart disease (2 sources) Presence of aortocoronary bypass graft; Translations: [Presence of aortocoronary bypass graft] Onset: 3 Episodic Genitourinary symptoms and ill-defined conditions (2 sources) Increased frequency of urination; Translations: [Olegario hematuria] Onset: 4 04-02-2015 Episodic Headache; including migraine (12 sources) Headache; Translations: [Headache] Onset: 4 04-25-2024 Episodic Joint disorders and dislocations; trauma-related (9 sources) Tear of medial meniscus of knee; Translations: [Other tear of medial meniscus, current injury, unspecified knee, initial encounter] Onset: 4 01-24-2024 Episodic Malaise and fatigue (17 sources) Weakness; Translations: [Asthenia] Onset: 2 Episodic Other acquired deformities (2 sources) Spondylolisthesis, lumbar region Onset: 1 Resolved: 1 Episodic Other aftercare (2 sources) Other rodent exterminator (current) drug therapy; Translations: [Other rodent exterminator (current) drug therapy] Onset: 4 Episodic Other aftercare (2 sources) 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; Translations: [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] Onset: 3 Episodic Other bone disease and musculoskeletal deformities (1 source) Other specified disorders of bone density and structure, other site Onset: 1 Resolved: 1 Episodic Other bone disease and musculoskeletal deformities (12 sources) Osteopenia; Translations: [Other specified disorders of bone density and structure, unspecified site] Onset: 4 04-19-2024 Episodic Other circulatory disease (11 sources) History of cerebrovascular accident; Translations: [Personal [...] Resolved: 2 Episodic Other lower respiratory disease (13 sources) Dyspnea; Translations: [Shortness of breath] Onset: 3 08-30-2023 Episodic Other lower respiratory disease (2 sources) Shortness of breath; Translations: [Shortness of breath] Onset: 3 Episodic Other nervous system disorders (9 sources) Skin sensation disturbance; Translations: [Unspecified disturbances of skin sensation] Onset: 4 01-24-2024 Episodic Other non-traumatic joint disorders (9 sources) Pain in lower limb; Translations: [Pain in unspecified knee] Onset: 4 01-24-2024 Episodic Other nutritional; endocrine; and metabolic disorders (4 sources) Body mass index 30+ - obesity; Translations: [Body mass index (BMI) 31.0-31.9, adult] Onset: 4 Resolved: 4 12-22-2023 Chronic Other nutritional; endocrine; and metabolic disorders (2 sources) Body mass index (BMI) 29.0-29.9, adult; Translations: [Body mass index (BMI) 29.0-29.9, adult] Onset: 4 Episodic Other screening for suspected conditions (not mental disorders or infectious disease) (20 sources) Electrocardiogram abnormal; Translations: [Abnormal electrocardiogram [ECG] [EKG]] Onset: 3 09-02-2021 Episodic Phlebitis; thrombophlebitis and thromboembolism (20 sources) Acute embolism and thrombosis of left axillary vein; Translations: [Acute embolism and thrombosis of left subclavian vein] Onset: 1 Resolved: 1 Episodic Screening and history of mental health and substance abuse codes (6 sources) Ex-smoker; Translations: [Personal history of nicotine dependence] Onset: 4 07-27-2024 Episodic Unclassified (8 sources) Onset: 3 Resolved: 4 08-30-2023 Results Test Name Value Interpretation Reference Range Facility ECG 12 [place] 07-30-2024 Please see the EKG r eport as documented on the EKG. [facility] Work Phone: Ambulatory Visit Summaryon 1 09-24-2023 Ambulatory Visit Summary Ambulatory Visit Summary YOANA IBRAHIM :1940 Visit Date:07/25/2024 Ambulatory Visit Instructions Your Diagnosis History of prostate cancer Benign prostatic hyperplasia with outflow obstruction History of kidney stones Urinary incontinence Your Care Team Attending Physician - BARB Salinas APRN, Anabel Anthony Primary Care Physician - SHANIQUE ANDERSON DO This Is Your Medications List alpha-lipoic acid (Alpha Lipoic Acid) apixaban (apixaban 5 mg oral tablet) calcium-vitamin D (calcium (as carbonate)-vitamin D 500 mg-200 intl units oral tablet) carbidopa-levodopa (carbidopa-levodopa 10 mg-100 mg oral tablet, disintegrating) carvedilol (carvedilol 3.125 mg Tab) cholecalciferol ciprofloxacin (Cipro 500 mg Tab) clopidogrel (clopidogrel 75 mg Tab) diazepam (diazepam 2 mg Tab) famotidine (famotidine 20 mg Tab) ferrous sulfate (ferrous sulfate 325 mg oral enteric coated tablet) furosemide (furosemide 20 mg Tab) icosapent (Icosapent Ethyl 1 g oral capsule) insulin glargine loperamide loratadine (loratadine 10 mg Tab) magnesium oxide memantine (memantine 28 mg oral capsule, extended release) mirabegron (Myrbetriq 50 mg oral tablet, extended release) mometasone multivitamin with minerals (Multivitamins and Minerals) pancrelipase (Creon 12,000 units oral delayed release capsule) paroxetine (paroxetine 20 mg Tab) potassium chloride (Potassium Chloride (Xph-Ktqp-Nvk 10) 10 mEq oral tablet, extended release) psyllium (psyllium oral powder) rivastigmine (rivastigmine 13.3 mg/24 hr transdermal film, extended release) tamsulosin (tamsulosin 0.4 mg Cap) Procedures Performed 3D-EBRT - three dimensional external beam radiation therapy, Appendectomy, Cardiac pacemaker, CE - Cataract extraction, Cholecystectomy, Colonoscopy, History of coronary artery bypass grafting.., Implantation of electronic stimulator into bladder, Total knee replacement, Transrectal needle biopsy of prostate. Discharge Vitals Height 167 cm Height 66 in Weight 72 kg Weight 158.733 lb BMI 25.82 What to do next Scheduled Follow-Up Appointments Wednesday 3:30 PM EST With: CINTHYA SANCHEZ, Petr Richard Where: [facility] [address] [place] [address]- Medications What How Much When Instructions Unchanged alpha-lipoic acid (Alpha Lipoic Acid) 2 Tablets By Mouth Every day Unchanged apixaban (apixaban 5 mg oral tablet) 1 Tablets By Mouth 2 times a day Unchanged calcium-vitamin D (calcium (as carbonate)-vitamin D 500 mg-200 intl units oral tablet) 1 Tablets By Mouth 2 times a day Unchanged carbidopa-levodopa (carbidopa-levodopa 10 mg-100 mg oral tablet, disintegrating) 1 Tablets By Mouth Unchanged carvedilol (carvedilol 3.125 mg Tab) 1 Tablets By Mouth 2 times a day Unchanged cholecalciferol 25 Microgram Chewed Every day Unchanged ciprofloxacin (Cipro 500 mg Tab) See instructions Take 1 tab day prior to procedure and 1 tab day of procdure - afterwards Unchanged clopidogrel (clopidogrel 75 mg Tab) 1 Tablets By Mouth Every day Unchanged diazepam (diazepam 2 mg Tab) 0.5 Tablets By Mouth At bedtime Unchanged famotidine (famotidine 20 mg Tab) 1 Tablets By Mouth 2 times a day Unchanged ferrous sulfate (ferrous sulfate 325 mg oral enteric coated tablet) 1 Tablets By Mouth Every day Unchanged furosemide (furosemide 20 mg Tab) 1 Tablets By Mouth Every day Unchanged icosapent (Icosapent Ethyl 1 g oral capsule) 4 Capsules By Mouth 2 times a day Unchanged insulin glargine 100 Units Unchanged loperamide 2 Milligram By Mouth Every day Unchanged loratadine (loratadine 10 mg Tab) 1 Tablets By Mouth Every day Unchanged magnesium oxide 420 Milligram By Mouth Every day Unchanged memantine (memantine 28 mg oral capsule, extended release) 1 Capsules By Mouth Every day Unchanged mirabegron (Myrbetriq 50 mg oral tablet, extended release) 1 Tablets By Mouth Every day Unchanged mometasone 50 Microgram Inhalation 2 times a day Unchanged multivitamin with minerals (Multivitamins and Minerals) Every day Unchanged pancrelipase (Creon 12,000 units oral delayed release capsule) 1 Capsules By Mouth 3 times a day Unchanged paroxetine (paroxetine 20 mg Tab) 0.5 Tablets By Mouth Every day Unchanged potassium chloride (Potassium Chloride (Evo-Bqjg-Coj 10) 10 mEq oral tablet, extended release) 1 Tablets By Mouth Every day Unchanged psyllium (psyllium oral powder) 6 Gram By Mouth 2 times a day Unchanged rivastigmine (rivastigmine 13.3 mg/ 24 hr transdermal film, extended release) 1 Patches Topical Every day Unchanged tamsulosin (tamsulosin 0.4 mg Cap) 1 Capsules By Mouth At bedtime Allergies Hermila (Unknown) Byetta Prefilled Pen (Unknown) Demerol (Edema of bilateral upper limbs) Invokana (Unknown) Victoza (Unknown) codeine (Unknown) Problems Ongoing - Any problem that you are currently receiving van (more content not included)... [facility] Office/Clinic Noteon 07-25-2024 Urology Office/Clinic Note Urology Office/Clinic Note Chief Complaint F/U HPI Staff 83 yo male here for f/up to cysto 06/15/[address] Painting. Previous dx: hx of prostate CA, BPH w/ LUTS, flank pain, hx of kidney stones, antiplatelet long-term use. Taking Flomax 0.4mg qd. Started on Myrbetriq 50mg ER qd at the time of cysto. Pt. states the Myrbetriq is working. PSA: 08/2023 - 1.03 04/25/24 - 1.49 ~Per [facility], ok to check in 6 months. KUB and MESFIN 05/04/24 [facility]. called 07/05/24 c/o buried penis. Dysuria: no Incomplete bladder emptying: occasionally, PVR 43mL Hematuria: no Frequency: every 2 hours Urgency: yes Nocturia: Pt. is wetting to bed Stream: weak stream Post void dripping: no Wearing pads/ Depends: yes, will use 2 pull ups a day Urge incontinence: occasionally Stress incontinence: no Incontinence without Sensory Awareness: yes, Pt. will leak while sleeping Abdominal pain: no Flank pain: no History of Present Illness I have reviewed and verified the staff HPI to be accurate for this encounter. Portions of this record may have been created with voice recognition artificial intelligence software, specifically [employer], [employer] and or [employer]. Substitutions may have occurred due to the inherent limitations of voice recognition and artificial intelligence software. Review of Systems PHQ Score Initial Depression Screen Score: 0 SCORE Physical Exam Vitals & Measurements HT: 66 in HT: 167 cm WT: 72 kg WT: 158.733 lb BMI: 25.82 General: Well developed, well nourished, in no acute distress. Genitourinary: Penis: redundant skin over glans unable to retract, 1 cm opening to glans, able to easily visualize urethra, denies pain during exam Assessment/Plan [facility] pt Pt w/ Parkinson's 1. Phimosis (N47.1: Phimosis) called office 07/05/24 c/o buried penis . Advised at that time to apply gentle pressure to the fat pad surrounding the area in order to expose penis. In office today, patient's notes that this is continued to be an issue. Never has been an issue before, started to notice after cystoscopy. Explained to patient/ that this is likely coincidence and timing. Patient previously circumcised On exam today, patient is noted to have redundant loose skin over the glans, but a 1 cm opening in the skin to the glans. Able to easily visualize the urethral opening. Glans does not appear to have significant erythema or edema. Patient does not complain of pain during exam. Unable to retract skin. Discussed findings with patient/. She is currently using antifungal cream to the head of his penis without significant improvement of symptoms. He is not having any issues urinating or discomfort. We discussed possibility of dorsal slit or circumcision in the future in order to remove this redundant skin. Discussed to contact office versus ER for any significant pain, redness or purple coloration to the glans, inability to urinate. Patient and verbalized understanding -Follow-up with [facility] for physical exam and possible discussion regarding circumcision versus dorsal slit 2. Urinary incontinence (R32: Unspecified urinary incontinence) Since radiation for prostate cancer Had InterStim placed 2012, slightly improved his urinary symptoms. Battery now and patient does not wish to pursue it any further due to how tedious it was for minimal improvement. After previous cystoscopy, started on Myrbetriq 50 mg daily. Patient is tolerating this well without side effects. Patient and noticed improvement initially after cystoscopy, then worsening of urinary symptoms and incontinence as time went on. Patient feels that there is currently no improvement of his urinary symptoms. We discussed continuation of Myrbetriq versus trial of Gemtesa. Patient and would like to trial Gemtesa. Discussed side effects. Rx sent to pharmacy. -Start Gemtesa at 75 mg -f/u 6-8 weeks for reeval of sxs 3. Benign prostatic hyperplasia with outflow obstruction (N40.1: Benign prostatic hyperplasia with lower urinary tract symptoms) s/p cysto 06/15/23 - obstructed prostatic urethra, moderate hypertrophy. Trabeculated bladder, moderate radiation cystitis changes. It was discussed w/ pt/ at that time that bladder outlet procedure could be considered, although not recommended d/t previous radiation to prostate tissue may cause issues w/ healing. Currently taking tamsulosin 0.4 mg daily. Patient tolerating well without side effects. -Continue tamsulosin 4. History of prostate cancer (Z85.46: Personal history of malignant neoplasm of prostate) s/p radiation by Dr Galvez in [place] Unsure of year of treatment or initial sx Pt shares that he is very uneasy about possibility of recurrence of prostate CA PSA: 08/2023 - 1.03 04/25/24 - 1.49 Previously discussed rechecking PSA in 6 mos. Again, pt notes he is anxious about PSA change. Plan is to f/u Sep 2024 w/ [facility]. Check PSA at that time. -PSA rev (more content not included)... [facility] Comment on above: Result Comment: Elec tronically Signed By: BARB Salinas APRN, Anabel Anthony\.br\Date and Time Signed: 07/25/24 14:18 EST Operative Reporton Operative Report Operative Report Patient: YOANA IBRAHIM Age: 83 years Sex: Male : 1940 Associated Diagnoses: None Author: Petr PAINTING MD Procedure Operative Information Details: Date/ Time: 06/15/2024 18:01:00. Pre-Op Dx: BPH with obstruction/lower urinary tract symptoms (GDX55-GK N40.1, Billing Diagnosis, Medical), Chronic radiation cystitis (PJN79-PR N30.40, Billing Diagnosis, Medical), Other obstructive and reflux uropathy (GXY38-ZM N13.8, Discharge, Medical), Overactive bladder (CEV11-MM N32.81, Billing Diagnosis, Medical), Personal history of prostate cancer (LGZ62-WE Z85.46, Billing Diagnosis, Medical). Post-Op Dx: Same. Anesthesia Type: Local. Procedure: Local Cystoscopy. Complications: None. Risks/Benefits/Informed Consent: Surgical risks, benefits, details of the procedure have been explained to the patient, Full informed consent has been obtained. Intraoperative Information Prepped: Patient is brought back to the endoscopy suite, Patient is placed in supine position, Patient prepped in the usual fashion with Betadine solution, 2% Xylocaine Jelly is placed per Urethra, After waiting several minutes the Cystoscope is introduced. The Urethra is: Normal. The Prostatic Urethra is: Obstructed, Moderate Hypertrophy, 3.5 cm long, lateral lobe hypertrophy, no median lobe. The Bladder is: Abnormal, Trabeculated, Moderate radiation cystitis changes, mainly posterior. No tumor, no stones. . The ureteral orifices: Show efflux of clear urine. Devices Implanted: None. Removal: Cystoscope is removed, The patient tolerated it well. Postoperative Information Discharge: Patient is discharged home with antibiotic coverage, Follow up arranged, See [facility] note. Will try beta 3 agonists. . [facility] Comment on above: Result Comment: Elec tronically Signed By: CINTHYA SANCHEZ, Petr Richard\.fabian\Date and Time Signed: 07/03/24 18:[address] cervical spine wo conon 1 CT cervical spine wo con [facility] [place] [address] [place] [address] CT Scan Report Signed Patient: Yoana Ibrahim MR#: [id number] : 1940 Acct:[id number] Age/Sex: 83 / M ADM Date: 06/29/24 [facility] Room: Type: [facility] Attending Dr: Viky Rollins PA-C Copies to: Viky Rollins PA-C Ordering Provider: Viky Rollins PA-C Date of Service: 06/29/24 CT/CT cervical spine wo con: hyperreflexia, balance issues ([id number]) CT/CT head/brain wo con: balance issues, gait problems CT head/brain wo con, CT cervical spine wo con 06/29/2024 4:26 PM SIGNS AND SYMPTOMS: Frequent falls, recent head injury, gait disturbance, history of Parkinson's, history of prostate cancer, neck pain and stiffness TECHNIQUE:Multi-detector CT axial slices of the brain and cervical spine were obtained without IV contrast. Helical,sagittal, coronal, and 3-D reconstructions of the cervical spine were performed. CT was performed with one or more of the following dose reduction techniques: Automated exposure control, adjustment of the mA and/or kV according to patient size, or use of iterative reconstruction technique. COMPARISON: 02/18/2024 FINDINGS: Noncontrast head CT: There is no shift of the midline structures, acute intracranial bleeding, mass effects, or evidence of acute ischemia. Atherosclerotic changes are noted in the V4 segments of the vertebral arteries and intracranial segments of the internal carotid arteries. There is diffuse age-related cortical atrophy with periventricular white matter hypoattenuation. The ventricular system is normal in size. The brainstem and the cerebellum are unremarkable. The visualized intraorbital contents, the visualized paranasal sinuses, and the infratemporal soft tissues show no acute abnormality. The osseous structures in the skull base and the calvarium show no abnormality. Cervical spine: There is preservation of the vertebral body heights. There is moderate disc height loss at C6-C7 with mild disc height loss at C5-C6. There is anterior osteophyte formation with uncovertebral joint spurring. There is facet hypertrophy throughout. No fractures or dislocations are seen. The alignment of the cervical spine is normal. The craniocervical junction is within normal limits. Degenerative changes are noted in the atlantoaxial joint. The prevertebral soft tissues are within normal limits. The paraspinous soft tissues are within normal limits. The lung apices are unremarkable. Atherosclerotic changes are noted in the carotid bifurcations. CT/CT head/brain wo con IMPRESSION: No acute intracranial pathology. Chronic age-related neurodegenerative changes are noted as above. No acute cervical spine injury. Degenerative changes are noted in the cervical spine as above. Impression dictated by: Milan Dickerson M.D.06/29/2024 6:26 PM Dictation Location: [place] [address] Transcribed By: [facility] 06/29/241825 Dictated By: Milan Dickerson II, MD 06/29/241820 Signed By: 06/29/241825 [facility] Inpatient Patient Summaryon 06-15-2024 Inpatient Patient Summary Inpatient Patient Summary [place] [address] Clinical Summary Person Information Name: YOANA IBRAHIM Age: 83 Years : 1940 Sex: Male PCP: SHANIQUE ANDERSON DO Marital Status: Unknown Race: White Ethnicity: Non- or Language: Lithuanian Visit Id: Visit Reason: HX OF PROSTATE CANCER, URINARY INCONTINENCE, BPH WITH LUTS Speciality: Acuity: Enc Type: Outpatient Med Service: Surgery Arrival: 06/15/2024 09:54:01 Discharge: Dispo Type: Address: [address] [place] [phone] Provider Notes: Diagnosis: Problems Active Flank pain Deafness Diabetes PTSD (post-traumatic stress disorder) Urinary incontinence 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 (10/25/2023) Congestive heart failure (10/25/2023) Heart disease Hypercholesterolemia Kidney stone (04/02/2015) Malignant tumor of prostate (07/24/2019) Mixed hyperlipidemia Osteopenia (01/24/2024) Parkinson's disease (09/22/2021) Dementia (01/24/2024) Benign prostatic hyperplasia with outflow obstruction (04/02/2015) Cerebrovascular accident Chronic systolic heart failure (10/25/2023) Chronic obstructive pulmonary disease Chronic kidney disease Recurrent major depressive episodes, moderate (10/25/2023) Secondary erectile dysfunction (04/02/2015) Sensorineural hearing loss of bilateral ears Type 2 diabetes mellitus without complication Atrial fibrillation (01/24/2024) Arthritis Anemia Vitamin D deficiency (01/24/2024) Acute kidney injury (10/06/2013) HREBIE (obstructive sleep apnea) Spinal stenosis Pancreatic insufficiency Anxiety History of prostate cancer Smoking Status: Functional Status: Sensory Deficits: History of Falls: Mobility Assistance Prior to Admission: ADLs: Current Level of Assistance for Self-Care/Mobility: Cognitive Status: Allergies Victoza (Unknown) Invokana (Unknown) Byetta Prefilled Pen (Unknown) Demerol (Edema of bilateral upper limbs) Hermila (Unknown) codeine (Unknown) Laboratory or Other Results This Visit (last charted value for your 06/15/2024 visit) No Laboratory or Other Results This Visit Measurements: Height: 167 cm Weight: 72 kg Blood Pressure: Not Valued / Not Valued BMI: 25.82 kg/m2 Procedures No Procedures Documented Immunizations No Immunizations Documented This Visit Final Med List: alpha-lipoic acid (Alpha Lipoic Acid) 2 Tablets By Mouth every day. apixaban (apixaban 5 mg oral tablet) 1 Tablets By Mouth 2 times a day. calcium-vitamin D (calcium (as carbonate)-vitamin D 500 mg-200 intl units oral tablet) 1 Tablets By Mouth 2 times a day. carbidopa-levodopa (carbidopa-levodopa 10 mg-100 mg oral tablet, disintegrating) 1 Tablets By Mouth. carvedilol (carvedilol 3.125 mg Tab) 1 Tablets By Mouth 2 times a day. cholecalciferol 25 Microgram Chewed every day. ciprofloxacin (Cipro 500 mg Tab) Take 1 tab day prior to procedure and 1 tab day of procdure - afterwards. Refills: 0. clopidogrel (clopidogrel 75 mg Tab) 1 Tablets By Mouth every day. diazepam (diazepam 2 mg Tab) 0.5 Tablets By Mouth at bedtime. famotidine (famotidine 20 mg Tab) 1 Tablets By Mouth 2 times a day. ferrous sulfate (ferrous sulfate 325 mg oral enteric coated tablet) 1 Tablets By Mouth every day. furosemide (furosemide 20 mg Tab) 1 Tablets By Mouth every day. icosapent (Icosapent Ethyl 1 g oral capsule) 4 Capsules By Mouth 2 times a day. insulin glargine 100 Units. loperamide 2 Milligram By Mouth every day. loratadine (loratadine 10 mg Tab) 1 Tablets By Mouth every day. magnesium oxide 420 Milligram By Mouth every day. memantine (memantine 28 mg oral capsule, extended release) 1 Capsules By Mouth every day. mirabegron (Myrbetriq 50 mg oral tablet, extended release) 1 Tablets By Mouth every day. Refills: 11. mometasone 50 Microgram Inhalation 2 times a day. multivitamin with minerals (Multivitamins and Minerals) every day. pancrelipase (Creon 12,000 units oral delayed release capsule) 1 Capsules By Mouth 3 times a day. paroxetine (paroxetine 20 mg Tab) 0.5 Tablets By Mouth every day. potassium chloride (Potassium Chloride (Una-Dsht-Xoo 10) 10 mEq oral tablet, extended release) 1 Tablets By Mouth every day. psyllium (psyllium oral powder) 6 Gram By Mouth 2 times a day. rivastigmine (rivastigmine 13.3 mg/24 hr transdermal film, extended release) 1 Patches Topical every day. tamsulosin (tamsulosin 0.4 mg Cap) 1 Capsules By Mouth at bedtime. Care Team Members: Attending Physician: Petr PAINTING MD Consulting Physician: Referring Physician: Petr PAINTING MD Follow up: With: Address: When: Anabel Salinas Comments: As discussed, will send a prescription for overactive bladder to your pharmacy. Please call if this is cost prohibitive. Will make an appoint (more content not included)... [facility] Main OR Intraoperative Recor don 06-15-2024 Main OR Intraoperative Record Main OR Intraoperative Record IntraOp Document Type FTURO Summary Primary Physician: Petr PAINTING MD Finalized Date/Time: 06/15/24 10:42:27 Pt. Name: YOANA IBRAHIM /Sex: 1940 Male Med Rec #: [id number] Physician: Petr PAINTING MD Financial #: [id number] Pt. Type: O Room/Bed: / Admit/Disch: 06/15/24 09:54:01 - Institution: Case Times FTURO Entry 1 Patient Times In Room 06/15/24 10:27:00 Out Room 06/15/24 10:42:00 Procedure Times Start 06/15/24 10:34:00 Stop 06/15/24 10:36:00 Anesthesia Times Last Modified By: Jyana Thapa 06/15/24 10:42:17 Case Attendance FTURO Entry 1 Entry 2 Entry 3 Case Attendee Petr PAINTING MD, Kelsie E Troike, Kendall R Role Performed Surgeon - Primary Nuclear Weapons Specialist - Relief Scrub - Primary Time In 06/15/24 10:27:00 06/15/24 10:27:00 06/15/24 10:27:00 Time Out 06/15/24 10:42:00 06/15/24 10:42:00 06/15/24 10:42:00 Procedure CYSTOSCOPY LOCAL(.) CYSTOSCOPY LOCAL(.) CYSTOSCOPY LOCAL(.) Comments Last Modified By: Jayna Thapa Kelsie E Burgderfer, Kelsie E 06/15/24 10:42:18 06/15/24 10:42:18 06/15/24 10:42:18 Surgical Procedures FTURO Entry 1 Procedure Description Procedure CYSTOSCOPY LOCAL Modifiers . Surgeon Description CYSTO Primary Procedure Yes Primary Surgeon Petr PAINTING MD Start 06/15/24 10:34:00 Stop 06/15/24 10:36:00 Anesthesia Type Local Surgical Service Urology Wound Class 2 - Clean-Contaminated Last Modified By: Jayna Thapa 06/15/24 10:37:21 General Case Data FTURO Pre-Care Text: Classifies surgical wound, implements aseptic technique, initiates traffic control Entry 1 Case Information OR URO 1 FT Case Level None Wound Class 2 - Clean-Contaminated Specialty Urology Preop Diagnosis HX OF PROSTATE CANCER, Postop Same As Preop Yes URINARY INCONTINENCE, BPH WITH LUTS Postop Diagnosis HX OF PROSTATE CANCER, Outcomes Met? Yes URINARY INCONTINENCE, BPH WITH LUTS Last Modified By: Jayna Thapa 06/15/24 10:26:47 Post-Care Text: The patient is free from signs and symptoms of infection EU IntraOp - FTURO Pre-Care Text: Implements protective measures prior to operative or invasive procedure, confirms identity before the operative or invasive procedure, verifies operative procedure, surgical site, and laterality Entry 1 EU Perioperative Protocols Procedure(s) CYSTOSCOPY LOCAL(.) Patient Identity Birthday, ID Band Verified (select at Check, Patient least 2): Participation Consents / H and P H&P, Surgery/Procedure Operative Site N/A Verified Consent Marking Verified Surgical Site Yes Laterality Verified n/a Verified Procedure Verified Yes Correct Patient Yes Position Verified Availability Equipment, Medication Time Out CINTHYA SANCHEZ, Petr Richard, Verified (If Participants Jayna Thapa, Applicable) Alfonso Abbasi Time Out Complete 06/15/24 10:30:00 Allergies Reviewed? Yes Allergies Reviewed Self/Patient With Body Position Supine Prep Area PENIS Prep Agents Betadine Solution Skin. Condition Unable to Visualize Description N/A Additional None Specimens Comment N/A Specimens Collected Vitals - EU Blood Pressure 157/68 Pulse 71 bpm Respirations 18 br/min SPO2 98 % EBL 0 I&O - EU Total Intake 0 mL Total Output 0 mL Outcomes Met? Yes Last Modified By: Jayna Thapa 06/15/24 10:30:52 Post-Care Text: The patient is free from signs and symptoms of injury caused by extraneous objects Sign Out FTURO Entry 1 Before Patient Leaves OR Nurse verbally Yes Nurse verbally n/a confirms with the confirms with the team the name of team that the procedure(s) instrument, sponge, recorded and needle counts are correct (or N/A) Nurse verbally n/a Nurse verbally Yes confirms with the confirms with the team how the team whether there specimen is labeled are any equipment (including patient problems to be name), if applicable addressed Sign Out Complete 06/15/24 10:36:00 Last Modified By: Jayna Thapa 06/15/24 10:37:00 Case Comments Finalized By: Jayna Thapa Document Signatures Signed By: Jayna Thapa 06/15/24 10:42 Jayna Thapa 06/15/24 10:42 Jayna Thapa 06/15/24 10:42 [facility] Main OR Preoperative Recordo n 06-15-2024 Main OR Preoperative Record Main OR Preoperative Record Holding Area Document Type FTURO Summary Primary Physician: Petr PAINTING MD Finalized Date/Time: 06/15/24 10:17:34 Pt. Name: YOANA IBRAHIM Octavia Schmitt/Sex: 1940 Male Med Rec #: [id number] Physician: Petr PAINTING MD Financial #: [id number] Pt. Type: O Room/Bed: / Admit/Disch: 06/15/24 09:54:01 - Institution: Case Times Holding FTURO Pre-Care Text: Verifies consent for planned procedure, identifies individual values and wishes concerning care, includes family members in perioperative teaching Secures patient's records' belongings, and valuables, maintains patient's dignity and privacy, and maintains patient confidentiality Entry 1 In Holding 06/15/24 10:10:00 Outcomes Met? Yes Last Modified By: Rosita Russell LPN 06/15/24 10:15:33 Post-Care Text: The patient participates in decisions affecting his or her perioperative plan of care The patient's right to privacy is maintained Surgery Checklist FTURO Entry 1 Patient Birthday, ID Band Procedure History and Physical, Identification: Check, Patient Verification: Surgical Consent, With Participation Patient NPO after Midnight: No Personal Items: Cataract Lens Implant, Defibrilator, Pacemaker Personal Items cane, hearing aides Limitations: cane Comment: Complaints of Pain: No Skin Integrity Intact, [place], Warm, & Dry Vitals - EU Blood Pressure 157/68 Pulse 71 bpm Respirations 18 br/min SPO2 98 % Additional None Specimens Collected Last Modified By: Rosita Russell LPN 06/15/24 10:17:30 Finalized By: Rosita Russell LPN Document Signatures Signed By: Rosita Russell LPN 06/15/24 10:17 [facility] Discharge Instructionon 06-15-2024 Outpatient Surgery Discharge Instruction Outpatient Surgery Discharge Instruction [place] [id number] Patient Discharge Instructions PERSON INFORMATION Name: YOANA IBRAHIM Date of : 1940 Current Date: 06/15/2024 10:45:14 PHYSICIANS Admitting Physician: Petr PAINTING MD Comment: Discharge Diagnosis: YOANA IBRAHIM has been given the following list of follow-up instructions, prescriptions, and patient education materials: IF UNABLE TO CONTACT YOUR PHYSICIAN AND YOU FEEL IT IS AN EMERGENCY, GO TO THE NEAREST EMERGENCY ROOM OR CALL 911 Follow up: With: Address: When: Anabel Salinas Comments: As discussed, will send a prescription for overactive bladder to your pharmacy. Please call if this is cost prohibitive. Will make an appointment with Anabel Salinas within the next six weeks to see if the medicine is helping. Please finish your antibiotics and have a great day! Comment: PATIENT EDUCATION INFORMATION Instructions: Cystoscopy ? Voiding after the procedure: there may be some pain, burning, urgency, frequency and blood tinged urine following the procedure. These symptoms usually resolve within 2-5 days. Drink the amount of fluid it takes to keep the urine pink to yellow or clear in color. Drinking enough water and fluids will help to ease any discomfort after your procedure. ? If you are having problems that seem out of the ordinary, please call. ? If unable to contact your physician and you feel it is an emergency, go to the nearest emergency room or call 911 ? Diet ? you may resume your normal diet. ? Activity ? you may resume your normal activities ? Call if you have a fever over 100 degrees. IPATRICE THOMAS J, have received the attached patient education materials/instructions and have verbalized understanding: May we do a follow up call? Yes No I was present when discharge instructions were given Patient Signature ___ Date Clinican/Nurse Signature Date You may receive a survey from [employer] asking you to rate your care experience. Your feedback is important and will help us understand what we do well and how we can improve the quality of care we provide to you, your loved ones and our community. It?s an honor to serve you. Thank you for choosing [facility] BNP ser/plasOrdered By: Genet Cartagena on 05-10-2024 Natriuretic peptide B (Bld) [Mass/Vol] 252.0 pg/mL High 5-100 [facility] Comment on above: Result Comment: PERF ORMED BY: [place] [address] [place] [address] PATHOLOGIST TRANSMITTER ENGINEER TONEY KWON M.D. Performed By: #### B MP, BNP #### [facility] [address] Basic Metabolic Panelon 04-14 GFR/1.73 sq M.predicted MDRD (S/P/Bld) [Vol rate/Area] 38.632 mL/min/{1.73_m2} Normal [facility] Comment on above: Performed By: #### B MP, BNP #### [facility] [address] [place] [address] [place] Calcium [Mass/volume] in Ser um or PlasmaOrdered By: Rosemary Cartagena on 05-10-2024 Calcium [Mass/Vol] 8.6 mg/dL Normal 8.6-10.3 [facility] Comment on above: Result Comment: PERF ORMED BY: [place] [address] PATHOLOGIST TRANSMITTER ENGINEER TONEY KWON M.D. Performed By: #### B MP, BNP #### [facility] [address] [place] [address] [place] Carbon dioxide, total [Moles /volume] in Serum or PlasmaOrdered By: Rosemary Cartagena on 05-10-2024 CO2 [Moles/Vol] 29.1 mmol/L Normal 21.0-31.0 [facility] Comment on above: Performed By: #### B MP, BNP #### [facility] [address] [place] [address] [place] Chloride [Moles/volume] in S ric or PlasmaOrdered By: Rosemary Cartagena on 05-10-2024 Chloride [Moles/Vol] 107 mmol/L Normal 98-107 [facility] Comment on above: Performed By: #### B MP, BNP #### [facility] [address] [place] [address] [place] Creatinine [Mass/volume] in Serum or PlasmaOrdered By: Rosemary Cartagena on 05-10-2024 Creatinine [Mass/Vol] 1.75 mg/dL High 0.70-1.30 [facility] Comment on above: Performed By: #### B MP, BNP #### [facility] [address] [place] [address] [place] Glucose [Mass/volume] in Ser um or PlasmaOrdered By: Rosemary Cartagena on 05-10-2024 Glucose [Mass/Vol] 286 mg/dL High 70-100 [facility] Comment on above: ADA recommended refe rence rangeRandom Glucose Reference Range is dependent on time and content of last meal. Glucose of more than 200 mg/dL in a nonstressed, ambulatory subject supports the diagnosis of Diabetes Mellitus. Result Comment: [place] om Glucose Reference Range is dependent on time and content of last meal. Glucose of more than 200 mg/dL in a nonstressed, ambulatory subject supports the diagnosis of Diabetes Mellitus. ADA recommended reference range Performed By: #### B MP, BNP #### [facility] [address] No Panel InformationOrdered By: Rosemary Cartagena on 05-10-2024 Estimated GFR (CKD-EPI) 38.632 mL/Min [facility] Creatinine Clearance (Chem N/A [facility] Potassium [Moles/volume] in Serum or PlasmaOrdered By: Rosemary Cartagena on 05-10-2024 Potassium [Moles/Vol] 4.7 mmol/L Normal 3.5-5.1 [facility] Comment on above: Performed By: #### B MP, BNP #### [facility] [address] Serum or plasma anion gap de terminationOrdered By: Rosemary Cartagena on 05-10-2024 Anion gap [Moles/Vol] 11.6 mmol/L Normal 6.0-15.0 [facility] Comment on above: Performed By: #### B MP, BNP #### [facility] [address] Sodium [Moles/volume] in Ser um or PlasmaOrdered By: Rosemary Cartagena on 05-10-2024 Sodium [Moles/Vol] 143 mmol/L Normal 136-145 [facility] Comment on above: Performed By: #### B MP, BNP #### [facility] [address] [place] [address] [place] Urea nitrogen [Mass/volume] in Serum or PlasmaOrdered By: Rosemary Cartagena on 05-10-2024 Urea nitrogen [Mass/Vol] 38 mg/dL High 7-25 [facility] Comment on above: Performed By: #### B MP, BNP #### [facility] [address] [place] [id number] [facility] Physician Referralon 024 Physician Referral [phone] [id number] [facility] Basic Metabolic Panelon GFR/1.73 sq M.predicted MDRD (S/P/Bld) [Vol rate/Area] 42.069 mL/min/{1.73_m2} Normal [facility] Comment on above: Performed By: #### A 1C WT eA, LIPID, T3T, CMP, TSH3, BNP #### [facility] [address] [place] [address] CT head/brain wo/w conon CT head/brain wo/w con [facility] Main [place] [address] [place] [address] CT Scan Report Signed Patient: Yoana Ibrahim MR#: [id number] : 1940 Acct:[id number] Age/Sex: 83 / M ADM Date: 02/18/24 Loc: CT Room: Type: [facility] Attending Dr: Viky Rollins PA-C Copies to: [...] Mo Collier M.D.02/18/2024 4:25 PM Dictation Location: [place] [address] Transcribed By: [facility] 02/18/24 1625 Dictated By: Mo Collier DO 02/18/24 1621 Signed By: 02/18/24 1625 Normal [facility] Calcium [Mass/volume] in Ser um or PlasmaOrdered By: Hosea Heart on 02-18-2024 Calcium [Mass/Vol] 9.6 mg/dL Normal 8.6-10.3 [facility] Comment on above: Result Comment: PERF ORMED BY: [place] [address] PATHOLOGIST TRANSMITTER ENGINEER TONEY KWON M.D. Performed By: #### A 1C [facility] eA, LIPID, T3T, CMP, TSH3, BNP #### [facility] [address] [place] [address] [place] Carbon dioxide, total [Moles /volume] in Serum or PlasmaOrdered By: Hosea Heart on 02-18-2024 CO2 [Moles/Vol] 30.8 mmol/L Normal 21.0-31.0 [facility] Comment on above: Performed By: #### A 1C [facility] eA, LIPID, T3T, CMP, TSH3, BNP #### [facility] [address] [place] [address] [place] Chloride [Moles/volume] in S ric or PlasmaOrdered By: Hosea Heart on 02-18-2024 Chloride [Moles/Vol] 103 mmol/L Normal 98-107 [facility] Comment on above: Performed By: #### A 1C [facility] eA, LIPID, T3T, CMP, TSH3, BNP #### [place] [id number] [place] Creatinine [Mass/volume] in Serum or PlasmaOrdered By: Hosea Heart on 02-18-2024 Creatinine [Mass/Vol] 1.63 mg/dL High 0.70-1.30 [facility] Comment on above: Performed By: #### A 1C WTH eA, LIPID, T3T, CMP, TSH3, BNP #### [facility] [address] [place] [address] [place] Glucose [Mass/volume] in Ser um or PlasmaOrdered By: Hosea Heart on 02-18-2024 Glucose [Mass/Vol] 165 mg/dL High 70-100 [facility] Comment on above: ADA recommended refe rence rangeRandom Glucose Reference Range is dependent on time and content of last meal. Glucose of more than 200 mg/dL in a nonstressed, ambulatory subject supports the diagnosis of Diabetes Mellitus. Result Comment: [place] om Glucose Reference Range is dependent on time and content of last meal. Glucose of more than 200 mg/dL in a nonstressed, ambulatory subject supports the diagnosis of Diabetes Mellitus. ADA recommended reference range Performed By: #### A 1C WTH eA, LIPID, T3T, CMP, TSH3, BNP #### [address] No Panel InformationOrdered By: Hosea Heart on 02-18-2024 Estimated GFR (CKD-EPI) 42.069 mL/Min [facility] Creatinine Clearance (Chem N/A [facility] Potassium [Moles/volume] in Serum or PlasmaOrdered By: Hosea Heart on 02-18-2024 Potassium [Moles/Vol] 4.5 mmol/L Normal 3.5-5.1 [facility] Comment on above: Performed By: #### A 1C WTH eA, LIPID, T3T, CMP, TSH3, BNP #### [facility] [address] Serum or plasma anion gap de terminationOrdered By: Hosea Heart on 02-18-2024 Anion gap [Moles/Vol] 10.7 mmol/L Normal 6.0-15.0 [facility] Comment on above: Performed By: #### A 1C WTH eA, LIPID, T3T, CMP, TSH3, BNP #### [facility] [address] [place] [address] [place] Sodium [Moles/volume] in Ser um or PlasmaOrdered By: Hosea Heart on 02-18-2024 Sodium [Moles/Vol] 140 mmol/L Normal 136-145 [facility] Comment on above: Performed By: #### A 1C WTH eA, LIPID, T3T, CMP, TSH3, BNP #### [facility] [address] Urea nitrogen [Mass/volume] in Serum or PlasmaOrdered By: Hosea Heart on 02-18-2024 Urea nitrogen [Mass/Vol] 26 mg/dL High 04-06 [facility] Comment on above: Performed By: #### A 1C WT eA, LIPID, T3T, CMP, TSH3, BNP #### [facility] [address] A1C with Estimated Average G luon 12-03-2023 Glucose [Mass/Vol] 143 mg/dL Normal [facility] Comment on above: Result Comment: PERF ORMED BY: [place] [address] PATHOLOGIST TRANSMITTER ENGINEER TONEY KWON M.D. Performed By: #### A 1C WT eA, LIPID, T3T, CMP, TSH3, BNP #### [facility] [address] Alanine aminotransferase [En zymatic activity/volume] in Serum or PlasmaOrdered By: Rosemary Cartagena on 12-03-2023 ALT [Catalytic activity/Vol] 12 U/L Normal [facility] Comment on above: Performed By: #### A 1C WTH eA, LIPID, T3T, CMP, TSH3, BNP #### [facility] [address] [place] [address] [place] Albumin [Mass/volume] in Ser um or Plasma by Bromocresol green (BCG) dye binding methoOrdered By: Rosemary Cartagena on 12-03-2023 Albumin BCG dye [Mass/Vol] 4.1 g/dL 3.5-5.7 [facility] Alkaline phosphatase [Enzyma tic activity/volume] in Serum or PlasmaOrdered By: Rosemary Cartagena on 12-03-2023 ALP [Catalytic activity/Vol] 89 U/L Normal 34-104 [facility] Comment on above: Performed By: #### A 1C WTH eA, LIPID, T3T, CMP, TSH3, BNP #### [facility] [address] [place] [address] Aspartate aminotransferase [ Enzymatic activity/volume] in Serum or PlasmaOrdered By: Rosemary Cartagena on 12-03-2023 AST [Catalytic activity/Vol] 23 U/L Normal 13-39 [facility] Comment on above: Performed By: #### A 1C WTH eA, LIPID, T3T, CMP, TSH3, BNP #### [facility] [address] [place] [address] BNP ser/plasOrdered By: Genet Cartagena on 12-03-2023 Natriuretic peptide B (Bld) [Mass/Vol] 316.0 pg/mL High 5-100 [facility] Comment on above: Result Comment: PERF ORMED BY: [place] [address] PATHOLOGIST TRANSMITTER ENGINEER TONEY KWON M.D. Performed By: #### A 1C WT eA, LIPID, T3T, CMP, TSH3, BNP #### [address] Bilirubin.total [Mass/volume ] in Serum or PlasmaOrdered By: Rosemary Cartagena on 12-03-2023 Bilirubin [Mass/Vol] 0.7 mg/dL Normal 0.3-1.0 [facility] Comment on above: Performed By: #### A 1C WTH eA, LIPID, T3T, CMP, TSH3, BNP #### [facility] [address] [place] [address] Calcium [Mass/volume] in Ser um or PlasmaOrdered By: Rosemary Cartagena on 12-03-2023 Calcium [Mass/Vol] 9.6 mg/dL Normal 8.6-10.3 [facility] Comment on above: Performed By: #### A 1C WTH eA, LIPID, T3T, CMP, TSH3, BNP #### [facility] [address] [place] [id number] [place] Carbon dioxide, total [Moles /volume] in Serum or PlasmaOrdered By: Rosemary Cartagena on 12-03-2023 CO2 [Moles/Vol] 34.3 mmol/L High 21.0-31.0 [facility] Comment on above: Performed By: #### A 1C WTH eA, LIPID, T3T, CMP, TSH3, BNP #### [facility] [address] [place] [address] [place] Chloride [Moles/volume] in S ric or PlasmaOrdered By: Rosemary Catragena on 12-03-2023 Chloride [Moles/Vol] 103 mmol/L Normal 98-107 [facility] Comment on above: Performed By: #### A 1C WTH eA, LIPID, T3T, CMP, TSH3, BNP #### [facility] [address] [place] [address] [place] Cholesterol [Mass/volume] in Serum or PlasmaOrdered By: Rosemary Cartagena on 12-03-2023 Cholesterol [Mass/Vol] 127 mg/dL Low 140-200 [facility] Comment on above: Chol less than 200 m g/dl low riskChol 201-239 mg/dl borderline riskChol 240 mg/dl and greater high risk Result Comment: Chol less than 200 mg/dl low risk Chol 201-239 mg/dl borderline risk Chol 240 mg/dl and greater high risk Performed By: #### A 1C WTH eA, LIPID, T3T, CMP, TSH3, BNP #### [facility] [address] [place] [id number] [place] Cholesterol in LDL Calc [Mas s/Vol]Ordered By: Rosemary Cartagena on 12-03-2023 Cholesterol in LDL [Mass/Vol] 29 mg/dL 0-100 [facility] Comment on above: LDL ATP III CLASSIFI CATIONLDL less than 100 mg/dL OptimalLDL 100-129 mg/dL Near or above optimalLDL 130-159 mg/dL Borderline highLDL 160-189 mg/dL HighLDL greater than 189 mg/dL Very high Cholesterol in VLDL Calc [Ma ss/Vol]Ordered By: Rosemary Cartagena on 12-03-2023 Cholesterol in VLDL [Mass/Vol] 62 mg/dL [facility] Comprehensive Metabolic Pane yobani 12-03-2023 Albumin [Mass/Vol] 4.1 g/dL Normal 3.5-5.7 [facility] Comment on above: Performed By: #### A 1C WTH eA, LIPID, T3T, CMP, TSH3, BNP #### [facility] [address] [place] [address] [place] GFR/1.73 sq M.predicted MDRD (S/P/Bld) [Vol rate/Area] 58.211 mL/min/{1.73_m2} Normal [facility] Comment on above: Performed By: #### A 1C WTH eA, LIPID, T3T, CMP, TSH3, BNP #### [facility] [address] [place] [id number] [place] Creatinine [Mass/volume] in Serum or PlasmaOrdered By: Rosemary Cartagena on 12-03-2023 Creatinine [Mass/Vol] 1.25 mg/dL Normal 0.70-1.30 [facility] Comment on above: Performed By: #### A 1C WTH eA, LIPID, T3T, CMP, TSH3, BNP #### [facility] [address] [place] [id number] [place] Glucose [Mass/volume] in Ser um or PlasmaOrdered By: Rosemary Cartagena on 12-03-2023 Glucose [Mass/Vol] 155 mg/dL High 70-100 [facility] Comment on above: ADA recommended refe rence rangeRandom Glucose Reference Range is dependent on time and content of last meal. Glucose of more than 200 mg/dL in a nonstressed, ambulatory subject supports the diagnosis of Diabetes Mellitus. Result Comment: [place] om Glucose Reference Range is dependent on time and content of last meal. Glucose of more than 200 mg/dL in a nonstressed, ambulatory subject supports the diagnosis of Diabetes Mellitus. ADA recommended reference range Performed By: #### A 1C WTH eA, LIPID, T3T, CMP, TSH3, BNP #### [facility] [address] [place] [address] [place] Glucose mean value [Mass/vol ume] in Blood Estimated from glycated hemoglobinOrdered By: Rosemary Cartagena on 12-03-2023 Average glucose Estimated from glycated hemoglobin (Bld) [Mass/Vol] 143 mg/dL [facility] Hemoglobin A1c percentageOrd ered By: Rosemary Cartagena on 12-03-2023 HbA1c (Bld) [Mass fraction] 6.6 % High 4.3-5.6 [facility] Comment on above: Increased risk for d iabetes: 5.7 - 6.4diabetes: >6.4glycemic control for adults with diabetes: <7.0 Result Comment: Incr eased risk for diabetes: 5.7 - 6.4 diabetes: >6.4 glycemic control for adults with diabetes: <7.0 Performed By: #### A 1C WTH eA, LIPID, T3T, CMP, TSH3, BNP #### [address] Lipid Panelon 12-03-2023 LDL Cholesterol,Calculated 29 mg/dL Normal 0-100 [facility] Comment on above: Result Comment: LDL ATP III CLASSIFICATION LDL less than 100 mg/dL Optimal LDL 100-129 mg/dL Near or above optimal LDL 130-159 mg/dL Borderline high LDL 160-189 mg/dL High LDL greater than 189 mg/dL Very high Performed By: #### A 1C WTH eA, LIPID, T3T, CMP, TSH3, BNP #### [address] Triglyceride w/Reflex 314 mg/dL High 0-149 [facility] [...] eA, LIPID, T3T, CMP, TSH3, BNP #### [facility] [address] VLDL CHOLESTEROL 62 mg/dL Normal [facility] Comment on above: Performed By: #### A 1C WTH eA, LIPID, T3T, CMP, TSH3, BNP #### [facility] [address] No Panel InformationOrdered By: Rosemary Cartagena on 12-03-2023 Estimated GFR (CKD-EPI) 58.211 mL/Min [facility] Creatinine Clearance (Chem N/A [facility] Potassium [Moles/volume] in Serum or PlasmaOrdered By: Rosemary Cartagena on 12-03-2023 Potassium [Moles/Vol] 4.2 mmol/L Normal 3.5-5.1 [facility] Comment on above: Performed By: #### A 1C WT eA, LIPID, T3T, CMP, TSH3, BNP #### [facility] [address] [place] [address] Protein [Mass/volume] in Ser um or PlasmaOrdered By: Rosemary Cartagena on 12-03-2023 Protein [Mass/Vol] 6.6 g/dL Normal 6.4-8.9 [facility] Comment on above: Performed By: #### A 1C WT eA, LIPID, T3T, CMP, TSH3, BNP #### [facility] [address] [place] [address] Serum globulin measurement b y calculation (mass/volume)Ordered By: Rosemary Caratgena on 12-03-2023 Globulin (S) [Mass/Vol] 2.5 g/dL [facility] Comment on above: Performed By: #### A 1C WTH eA, LIPID, T3T, CMP, TSH3, BNP #### [facility] [address] [place] [address] Serum or plasma albumin/glob ulin mass ratioOrdered By: Rosemary Cartagena on 12-03-2023 Albumin/Globulin [Mass ratio] 1.6 {ratio} [facility] Comment on above: Performed By: #### A 1C WTH eA, LIPID, T3T, CMP, TSH3, BNP #### [facility] [address] [place] [address] Serum or plasma anion gap de terminationOrdered By: Rosemary Cartagena on 12-03-2023 Anion gap [Moles/Vol] 8.9 mmol/L Normal 6.0-15.0 [facility] Comment on above: Performed By: #### A 1C WT eA, LIPID, T3T, CMP, TSH3, BNP #### [facility] [address] Serum or plasma high density lipoprotein (HDL) cholesterol measurementOrdered By: Rosemary Cartagena on 12-03-2023 Cholesterol in HDL [Mass/Vol] 35 mg/dL Normal 23-92 [facility] Comment on above: HDL CHOL ATP-III CLA SSIFICATION Cardiovascular RiskHDL > or equal to 60 mg/dL LOWHDL < 40 mg/dL HIGH Result Comment: HDL CHOL ATP-III CLASSIFICATION Cardiovascular Risk HDL > or equal to 60 mg/dL LOW HDL < 40 mg/dL HIGH Performed By: #### A 1C WT eA, LIPID, T3T, CMP, TSH3, BNP #### [facility] [address] Serum or plasma total choles terol/high density lipoprotein (HDL) cholesterol mass ratOrdered By: Rosemary Cartagena on 12-03-2023 Cholesterol.total/Chol esterol in HDL [Mass ratio] 3.6 {ratio} Normal <5.0 [facility] Comment on above: Performed By: #### A 1C WT eA, LIPID, T3T, CMP, TSH3, BNP #### [facility] [address] Sodium [Moles/volume] in Ser um or PlasmaOrdered By: Rosemary Cartagena on 12-03-2023 Sodium [Moles/Vol] 142 mmol/L Normal 136-145 [facility] Comment on above: Performed By: #### A 1C WT eA, LIPID, T3T, CMP, TSH3, BNP #### [facility] [address] Thyrotropin [Units/volume] i n Serum or PlasmaOrdered By: Rosemary Cartagena on 12-03-2023 TSH Qn 3.73 m[IU]/L Normal 0.45-5.33 [facility] Comment on above: Result Comment: PERF ORMED BY: [place] [address] PATHOLOGIST TRANSMITTER ENGINEER TONEY KWON M.D. Performed By: #### A 1C [facility] eA, LIPID, T3T, CMP, TSH3, BNP #### [facility] [address] Triglyceride [Mass/volume] i n Serum or PlasmaOrdered By: Rosemary Cartagena on 12-03-2023 Triglyceride [Mass/Vol] 314 mg/dL 0-149 [facility] Comment on above: TRIG ATP III CLASSIF ICATIONTRIG less than 150 mg/dL NormalTRIG 150-199 mg/dL Borderline highTRIG 200-500 mg/dL High TRIG greater than 500 mg/dL Very highStandard traceable to the Center for Disease Conrtrol and Prevention (CDC) test method. Triiodothyronine (T3) Totalo n 12-03-2023 Triiodothyronine (T3) Total 0.93 ng/mL Normal 0.87-1.78 [facility] Comment on above: Performed By: #### A 1C [facility] eA, LIPID, T3T, CMP, TSH3, BNP #### [facility] [address] Triiodothyronine (T3) [Mass/ volume] in Serum or PlasmaOrdered By: Rosemary Cartagena on 12-03-2023 T3 [Mass/Vol] 0.93 ng/mL 0.87-1.78 [facility] Urea nitrogen [Mass/volume] in Serum or PlasmaOrdered By: Rosemary Cartagena on 12-03-2023 Urea nitrogen [Mass/Vol] 28 mg/dL High 7-25 [facility] Comment on above: Performed By: #### A 1C [facility] eA, LIPID, T3T, CMP, TSH3, BNP #### [facility] [address] [place] [id number] [place] A1C with Estimated Average G darryln 09-02-2023 Glucose [Mass/Vol] 148 mg/dL Normal [facility] Comment on above: Result Comment: PERF ORMED BY: [place] [address] PATHOLOGIST TRANSMITTER ENGINEER TONEY KWON M.D. Performed By: #### A 1C WT eA, LIPID, T3T, CMP, TSH3, BNP #### [address] Alanine aminotransferase [En zymatic activity/volume] in Serum or PlasmaOrdered By: Rosemary Cartagena on 09-02-2023 ALT [Catalytic activity/Vol] 12 U/L Normal 7-52 [facility] Comment on above: Performed By: #### A 1C WTH eA, LIPID, T3T, CMP, TSH3, BNP #### [place] [address] [place] Albumin [Mass/volume] in Ser um or Plasma by Bromocresol green (BCG) dye binding methoOrdered By: Rosemary Cartagena on 09-02-2023 Albumin BCG dye [Mass/Vol] 4.0 g/dL 3.5-5.7 [facility] Alkaline phosphatase [Enzyma tic activity/volume] in Serum or PlasmaOrdered By: Rosemary Cartagena on 09-02-2023 ALP [Catalytic activity/Vol] 74 U/L Normal 34-104 [facility] Comment on above: Performed By: #### A 1C WTH eA, LIPID, T3T, CMP, TSH3, BNP #### [address] Aspartate aminotransferase [ Enzymatic activity/volume] in Serum or PlasmaOrdered By: Rosemary Cartagena on 09-02-2023 AST [Catalytic activity/Vol] 17 U/L Normal 13-39 [facility] Comment on above: Result Comment: PERF ORMED BY: [place] [address] PATHOLOGIST TRANSMITTER ENGINEER TONEY KWON M.D. Performed By: #### A 1C WTH eA, LIPID, T3T, CMP, TSH3, BNP #### [address] BNP ser/plasOrdered By: Genet Cartagena on 09-02-2023 Natriuretic peptide B (Bld) [Mass/Vol] 229.0 pg/mL High 5-100 [facility] Comment on above: Result Comment: PERF ORMED BY: [place] [address] PATHOLOGIST TRANSMITTER ENGINEER TONEY KWON M.D. Performed By: #### A 1C WTH eA, LIPID, T3T, CMP, TSH3, BNP #### [facility] [address] Bilirubin.total [Mass/volume ] in Serum or PlasmaOrdered By: Rosemary Cartagena on 09-02-2023 Bilirubin [Mass/Vol] 0.6 mg/dL Normal 0.3-1.0 [facility] Comment on above: Performed By: #### A 1C WT eA, LIPID, T3T, CMP, TSH3, BNP #### [facility] [address] Calcium [Mass/volume] in Ser um or PlasmaOrdered By: Rosemary Cartagena on 09-02-2023 Calcium [Mass/Vol] 8.9 mg/dL Normal 8.6-10.3 [facility] Comment on above: Performed By: #### A 1C WT eA, LIPID, T3T, CMP, TSH3, BNP #### [facility] [address] [place] [address] [place] Carbon dioxide, total [Moles /volume] in Serum or PlasmaOrdered By: Rosemary Cartagena on 09-02-2023 CO2 [Moles/Vol] 30.5 mmol/L Normal 21.0-31.0 [facility] Comment on above: Performed By: #### A 1C WTH eA, LIPID, T3T, CMP, TSH3, BNP #### [facility] [address] [place] [address] [place] Chloride [Moles/volume] in S ric or PlasmaOrdered By: Rosemary Cartagena on 09-02-2023 Chloride [Moles/Vol] 106 mmol/L Normal 98-107 [facility] Comment on above: Performed By: #### A 1C WTH eA, LIPID, T3T, CMP, TSH3, BNP #### [facility] [address] [place] [address] [place] Cholesterol [Mass/volume] in Serum or PlasmaOrdered By: Rosemary Cartagena on 09-02-2023 Cholesterol [Mass/Vol] 139 mg/dL Low 140-200 [facility] Comment on above: Chol less than 200 m g/dl low riskChol 201-239 mg/dl borderline riskChol 240 mg/dl and greater high risk Result Comment: Chol less than 200 mg/dl low risk Chol 201-239 mg/dl borderline risk Chol 240 mg/dl and greater high risk Performed By: #### A 1C WTH eA, LIPID, T3T, CMP, TSH3, BNP #### [facility] [address] [place] [address] [place] Cholesterol in LDL Calc [Mas s/Vol]Ordered By: Rosmeary Cartagena on 09-02-2023 Cholesterol in LDL [Mass/Vol] 56 mg/dL 0-100 [facility] Comment on above: LDL ATP III CLASSIFI CATIONLDL less than 100 mg/dL OptimalLDL 100-129 mg/dL Near or above optimalLDL 130-159 mg/dL Borderline highLDL 160-189 mg/dL HighLDL greater than 189 mg/dL Very high Cholesterol in VLDL Calc [Ma ss/Vol]Ordered By: Rosemary Cartagena on 09-02-2023 Cholesterol in VLDL [Mass/Vol] 51 mg/dL [facility] Comprehensive Metabolic Pane yobani 09-02-2023 Albumin [Mass/Vol] 4.0 g/dL Normal 3.5-5.7 [facility] Comment on above: Performed By: #### A 1C WTH eA, LIPID, T3T, CMP, TSH3, BNP #### [facility] [address] [place] [address] [place] Anion gap [Moles/Vol] Not performed Normal 6.0-15.0 [facility] Comment on above: Performed By: #### A 1C WTH eA, LIPID, T3T, CMP, TSH3, BNP #### [facility] [address] [place] [address] [place] Aspartate Amino Transferase Normal 13-39 [facility] Comment on above: Result Comment: Spec imen hemolyzed, redraw requested Performed By: #### A 1C WTH eA, LIPID, T3T, CMP, TSH3, BNP #### [facility] [address] [place] [address] [place] GFR/1.73 sq M.predicted MDRD (S/P/Bld) [Vol rate/Area] mL/min/{1.73_m2} Normal [facility] Comment on above: Performed By: #### A 1C WTH eA, LIPID, T3T, CMP, TSH3, BNP #### [facility] [address] Potassium Normal 3.5-5.1 [facility] Comment on above: Result Comment: Spec imen hemolyzed, redraw requested Performed By: #### A 1C WTH eA, LIPID, T3T, CMP, TSH3, BNP #### [address] Creatinine [Mass/volume] in Serum or PlasmaOrdered By: Rosemary Cartagena on 09-02-2023 Creatinine [Mass/Vol] 1.10 mg/dL Normal 0.70-1.30 [facility] Comment on above: Performed By: #### A 1C WTH eA, LIPID, T3T, CMP, TSH3, BNP #### [address] Glucose [Mass/volume] in Ser um or PlasmaOrdered By: Rosemary Cartagena on 09-02-2023 Glucose [Mass/Vol] 126 mg/dL High 70-100 [facility] Comment on above: ADA recommended refe rence rangeRandom Glucose Reference Range is dependent on time and content of last meal. Glucose of more than 200 mg/dL in a nonstressed, ambulatory subject supports the diagnosis of Diabetes Mellitus. Result Comment: [place] om Glucose Reference Range is dependent on time and content of last meal. Glucose of more than 200 mg/dL in a nonstressed, ambulatory subject supports the diagnosis of Diabetes Mellitus. ADA recommended reference range Performed By: #### A 1C WTH eA, LIPID, T3T, CMP, TSH3, BNP #### [facility] [address] Glucose mean value [Mass/vol ume] in Blood Estimated from glycated hemoglobinOrdered By: Rosemary Cartagena on 09-02-2023 Average glucose Estimated from glycated hemoglobin (Bld) [Mass/Vol] 148 mg/dL [facility] Hemoglobin A1c percentageOrd ered By: Rosemary Cartagena on 09-02-2023 HbA1c (Bld) [Mass fraction] 6.8 % High 4.3-5.6 [facility] Comment on above: Increased risk for d iabetes: 5.7 - 6.4diabetes: >6.4glycemic control for adults with diabetes: <7.0 Result Comment: Incr eased risk for diabetes: 5.7 - 6.4 diabetes: >6.4 glycemic control for adults with diabetes: <7.0 Performed By: #### A 1C WTH eA, LIPID, T3T, CMP, TSH3, BNP #### [facility] [address] Lipid Panelon 09-02-2023 LDL Cholesterol,Calculated 56 mg/dL Normal 0-100 [facility] Comment on above: Result Comment: LDL ATP III CLASSIFICATION LDL less than 100 mg/dL Optimal LDL 100-129 mg/dL Near or above optimal LDL 130-159 mg/dL Borderline high LDL 160-189 mg/dL High LDL greater than 189 mg/dL Very high Performed By: #### A 1C WTH eA, LIPID, T3T, CMP, TSH3, BNP #### [facility] [address] Triglyceride w/Reflex 259 mg/dL High 0-149 [facility] [...] eA, LIPID, T3T, CMP, TSH3, BNP #### [facility] [address] [place] [id number] [facility] VLDL CHOLESTEROL 51 mg/dL Normal [facility] Comment on above: Performed By: #### A 1C WT eA, LIPID, T3T, CMP, TSH3, BNP #### [facility] [address] No Panel InformationOrdered By: Rosemary Cartagena on 09-02-2023 Estimated GFR (CKD-EPI) > 60.0 mL/Min [facility] Creatinine Clearance (Chem N/A [facility] Potassium [Moles/volume] in Serum or PlasmaOrdered By: Rosemary Cartagena on 09-02-2023 Potassium [Moles/Vol] 3.9 mmol/L Normal 3.5-5.1 [facility] Comment on above: Performed By: #### A 1C WT eA, LIPID, T3T, CMP, TSH3, BNP #### [address] Protein [Mass/volume] in Ser um or PlasmaOrdered By: Rosemary Cartagena on 09-02-2023 Protein [Mass/Vol] 6.4 g/dL Normal 6.4-8.9 [facility] Comment on above: Performed By: #### A 1C [facility] eA, LIPID, T3T, CMP, TSH3, BNP #### [facility] [address] [place] [address] Serum globulin measurement b y calculation (mass/volume)Ordered By: Rosemary Cartagena on 09-02-2023 Globulin (S) [Mass/Vol] 2.4 g/dL [facility] Comment on above: Performed By: #### A 1C WT eA, LIPID, T3T, CMP, TSH3, BNP #### [facility] [address] Serum or plasma albumin/glob ulin mass ratioOrdered By: Rosemary Cartagena on 09-02-2023 Albumin/Globulin [Mass ratio] 1.7 {ratio} [facility] Comment on above: Performed By: #### A 1C WTH eA, LIPID, T3T, CMP, TSH3, BNP #### [facility] [address] [place] [address] Serum or plasma anion gap de terminationOrdered By: Rosemary Cartagena on 09-02-2023 Anion gap [Moles/Vol] TNP [facility] Comment on above: Test not performed Serum or plasma high density lipoprotein (HDL) cholesterol measurementOrdered By: Rosemary Cartagena on 09-02-2023 Cholesterol in HDL [Mass/Vol] 31 mg/dL Normal 23-92 [facility] Comment on above: HDL CHOL ATP-III CLA SSIFICATION Cardiovascular RiskHDL > or equal to 60 mg/dL LOWHDL < 40 mg/dL HIGH Result Comment: HDL CHOL ATP-III CLASSIFICATION Cardiovascular Risk HDL > or equal to 60 mg/dL LOW HDL < 40 mg/dL HIGH Performed By: #### A 1C WTH eA, LIPID, T3T, CMP, TSH3, BNP #### [facility] [address] Serum or plasma total choles terol/high density lipoprotein (HDL) cholesterol mass ratOrdered By: Rosemary Cartagena on 09-02-2023 Cholesterol.total/Chol esterol in HDL [Mass ratio] 4.5 {ratio} Normal <5.0 [facility] Comment on above: Performed By: #### A 1C WTH eA, LIPID, T3T, CMP, TSH3, BNP #### [facility] [address] Sodium [Moles/volume] in Ser um or PlasmaOrdered By: Rosemary Cartagena on 09-02-2023 Sodium [Moles/Vol] 141 mmol/L Normal 136-145 [facility] Comment on above: Performed By: #### A 1C WTH eA, LIPID, T3T, CMP, TSH3, BNP #### [facility] [address] TRANSTHORACIC ECHO (TTE) COM PLETEon 09-02-2023 TRANSTHORACIC ECHO (TTE) COMPLETE [address], Suite [facility], [place] [address] TRANSTHORACIC ECHOCARDIOGRAM REPORT Patient Name: YOANA IBRAHIM Reading Physician: [id number] Syed Flores MD, [facility] Study Date: 09/02/2023 Ordering Provider: [id number] ROSEMARY CARTAGENA MRN/PID: [id number] Fellow: Nurse: Date of /Age: 4 1940 / 82 years Cardiology Physician: Sobeida Juarez RDCS, RVT Gender: M Additional Staff: Height: 167.64 cm Admit Date: Weight: 87.09 kg Admission Status: BSA: 1.97 m2 Department Location: [facility] Blood Pressure: 112 /74 mmHg Study Type: TRANSTHORACIC ECHO (TTE) COMPLETE Diagnosis/ICD: Abnormal electrocardiogram [ECG] [EKG]-R94.31; Sleep apnea, unspecified-G47.30; Permanent AFib-I48.21; Shortness of breath-R06.02 Indication: Sick Sinus Syndrome, Pacemaker/AICD, CHF, Diabetes, HTN, Hyperlipidemia, CABG, Former Smoker, Ischemic Cardiomyopathy, TIA-2017, History of Left UE DVT, Prostate Cancer CPT Codes: Echo Complete w Full Doppler-31862 Study Detail: The following Echo studies were [...] 0.6 m/s (0.6-0.9m/s) PV Max P.3 mmHg [id number] Syed Flores MD, [facility] Electronically signed on 09/02/2023 at 5:11:22 PM Final Normal [facility] Thyrotropin [Units/volume] i n Serum or PlasmaOrdered By: Rosemary Cartagena on 09-02-2023 TSH Qn 4.72 m[IU]/L Normal 0.45-5.33 [facility] Comment on above: Result Comment: PERF ORMED BY: [place] [address] PATHOLOGIST TRANSMITTER ENGINEER TONEY KWON M.D. Performed By: #### A 1C [facility] eA, LIPID, T3T, CMP, TSH3, BNP #### [facility] [address] Triglyceride [Mass/volume] i n Serum or PlasmaOrdered By: Rosemary Cartagena on 09-02-2023 Triglyceride [Mass/Vol] 259 mg/dL 0-149 [facility] Comment on above: TRIG ATP III CLASSIF ICATIONTRIG less than 150 mg/dL NormalTRIG 150-199 mg/dL Borderline highTRIG 200-500 mg/dL High TRIG greater than 500 mg/dL Very highStandard traceable to the Center for Disease Conrtrol and Prevention (CDC) test method. Triiodothyronine (T3) Totalo n 09-02-2023 Triiodothyronine (T3) Total 0.70 ng/mL Low 0.87-1.78 [facility] Comment on above: Performed By: #### A 1C WTH eA, LIPID, T3T, CMP, TSH3, BNP #### [facility] [address] Triiodothyronine (T3) [Mass/ volume] in Serum or PlasmaOrdered By: Rosemary Cartagena on 09-02-2023 T3 [Mass/Vol] 0.70 ng/mL 0.87-1.78 [facility] TransthoracicOrdere d By: Syed Flores on 09-02-2023 Aortic Valve Area by Continuity of Peak Velocity 2.14 [facility] Work Phone: [phone] Aortic Valve Area by Continuity of VTI 2.09 [facility] Work Phone: [phone] AV mn grad 3.0 [facility] Work Phone: [phone] AV pk grad 7.3 [facility] Work Phone: [phone] AV pk diamond 1.35 [facility] Work Phone: [phone] LV A4C EF 14.5 [facility] Work Phone: [phone] LVIDd 5.30 [facility] Work Phone: [phone] LVOT diam 2.10 [facility] Work Phone: [phone] RVSP 38.8 [facility] Work Phone: [phone] [facility] Work Phone: [phone] Heart [facility] [address], [address], [place] [address] TRANSTHORACIC ECHOCARDIOGRAM REPORT Patient Name: YOANA Zurita Physician: [id number] Syed Flores MD, [facility] Study Date: 09/02/2023 Ordering Provider: [id number] ROSEMARY CARTAGENA MRN/PID: [id number] Fellow: Nurse: Date of /Age: 4 1940 / 82 years Cardiology Physician: Sobeida Juarez RDCS, RVT Gender: M Additional Staff: Height: 167.64 cm Admit Date: Weight: 87.09 kg Admission Status: BSA: 1.97 m2 Department Location: [facility] Blood Pressure: 112 /74 mmHg Study Type: TRANSTHORACIC ECHO (TTE) COMPLETE Diagnosis/ICD: Abnormal electrocardiogram [ECG] [EKG]-R94.31; Sleep apnea, unspecified-G47.30; Permanent AFib-I48.21; Shortness of breath-R06.02 Indication: Sick Sinus Syndrome, Pacemaker/AICD, CHF, Diabetes, HTN, Hyperlipidemia, CABG, Former Smoker, Ischemic Cardiomyopathy, TIA-2017, History of Left UE DVT, Prostate Cancer CPT Codes: Echo Complete w Full Doppler-87543 Study Detail: The following Echo studies were [...] included)... Syed Simeon M D - 09/02/2023 [facility] [address] [facility], [address], [place] [address] TRANSTHORACIC ECHOCARDIOGRAM REPORT Patient Name: YOANA IBRAHIM Reading Physician: [id number] Syed Flores MD, [facility] Study Date: 09/02/2023 Ordering Provider: [id number] ROSEMARY CARTAGENA MRN/PID: [id number] Fellow: Nurse: Date of /Age: 4 1940 / 82 years Cardiology Physician: Sobeida Juarez RDCS, RVT Gender: M Additional Staff: Height: 167.64 cm Admit Date: Weight: 87.09 kg Admission Status: BSA: 1.97 m2 Department Location: [facility] Blood Pressure: 112 /74 mmHg Study Type: TRANSTHORACIC ECHO (TTE) COMPLETE Diagnosis/ICD: Abnormal electrocardiogram [ECG] [EKG]-R94.31; Sleep apnea, unspecified-G47.30; Permanent AFib-I48.21; Shortness of breath-R06.02 Indication: Sick Sinus Syndrome, Pacemaker/AICD, CHF, Diabetes, HTN, Hyperlipidemia, CABG, Former Smoker, Ischemic Cardiomyopathy, TIA-2017, History of Left UE DVT, Prostate Cancer CPT Codes: Echo Complete w Full Doppler-[id number] Study Detail: The following Echo studies were [...] PV Max PG: (more content not included)... [facility] Work Phone: Urea nitrogen [Mass/volume] in Serum or PlasmaOrdered By: Rosemary Cartagena on 09-02-2023 Urea nitrogen [Mass/Vol] 21 mg/dL Normal - [facility] Comment on above: Performed By: #### A 1C WT eA, LIPID, T3T, CMP, TSH3, BNP #### [address] ECG 12 Leadon 09-01-2023 Atrial fibrillation. Towards the second half of the EKG patient goes into ventricular paced rhythm. When not paced QRS duration [address]-T abnormality in the inferior leads when paced QRS duration 180 ms. QTc 400 ms [facility] Work Phone: OVA AND PARASITE EXAMINATION on 12-23-2021 Ova + Parasite Exam Final report Normal [facility] Comment on above: Result Comment: Thes e results were obtained using wet preparation(s) and trichrome stained smear. This test does not include testing for Cryptosporidium parvum, Cyclospora, or Microsporidia. Performed By: #### O VAPE #### [facility] [address] [place] [address] Dr. Mely Avery Result 1 Comment Normal [facility] Comment on above: Result Comment: No o va, cysts, or parasites seen. . One negative specimen does not rule out the possibility of a parasitic infection. Performed By: #### O VAPE #### [facility] [address] [place] [address] Dr. Mely Avery STOOL CULTUREon 12-20-2021 Campylobacter Culture Final report Normal T [facility] Comment on above: Performed By: #### C XSTOOL #### [facility] [address] [place] [address] Dr. Mely Avery E coli Shiga Toxin EIA Negative Normal Negative [facility] Comment on above: Performed By: #### C XSTOOL #### [facility] [address] [place] [address] Dr. Mely Avery Result 1 Comment Normal [facility] Comment on above: Result Comment: No S almonella or Shigella recovered. Performed By: #### C XSTOOL #### [facility] [address] [place] [address] Dr. Mely Avery Result Comment: No C ampylobacter species isolated. Salmonella/Shigella Screen Final report Normal [facility] Comment on above: Performed By: #### C XSTOOL #### [facility] [address] [place] [address] Dr. Mely Avery C. DIFF PCRon 12-16-2021 C. DIFFICILE PCR Negative Normal NEGATIVE [facility] Comment on above: Performed By: #### C DIFPOC #### [facility] [address] [place] [address] Dr. Mely Avery XR lumbar spine 6V w bending on 07-25-2021 XR lumbar spine 6V w bending [place] [employer] Other XR lumbar spine 6V w bending [facility] [employer] Other XR lumbar spine 6V w bending [address] [place] [address] [employer] Other XR lumbar spine 6[place] [address] [employer] Other XR lumbar spine 6V w bending XRay Report [employer] Other XR lumbar spine 6V w bending Signed [employer] Other XR lumbar spine 6V w bending Patient: Yoana Ibrahim MR#: [id number] [employer] Other XR lumbar spine 6V w bending 9840 [employer] Other XR lumbar spine 6V w bending : 1940 Acct:[id number] [employer] Other XR lumbar spine 6V w bending Age/Sex: 80 / M ADM Date: 07/25/21 [employer] Other XR lumbar spine 6V w bending Loc: [place] Room: Type: [facility] [employer] Other XR lumbar spine 6V w bending Attending Dr: Osvaldo Maciel MD [employer] Other XR lumbar spine 6V w bending Ordering Provider: Osvaldo Maciel MD [employer] Other XR lumbar spine 6V w bending Date of Service: 07/25/21 [employer] Other XR lumbar spine 6V w bending XR/XR lumbar spine 6V w bending: M48.062, M43.16 M51.36 [employer] Other XR lumbar spine 6V w bending Copies to: Osvaldo Maciel MD [employer] Other XR lumbar spine 6V w bending LUMBAR SPINE WITH FLEXION, EXTENSION AND BENDING VIEWS- 6 views: [employer] Other XR lumbar spine 6V w bending CLINICAL HISTORY: Pain at the mid back when bending or standing up straight. No injury. [employer] Other XR lumbar spine 6V w bending COMPARISON: CT myelogram 07/01/2021 [employer] Other XR lumbar spine 6V w bending AP neutral, right and left bending as well as lateral views in neutral, flexion and extension were [employer] Other XR lumbar spine 6V w bending obtained. There is osteopenia. 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 There is minimal ret [employer] Other XR lumbar spine 6V w bending rolisthesis of L1 on L2 and L2 on L3. There is approximately 5 mm of anterolisthesis of L4 on L5. [employer] Other XR lumbar spine 6V w bending Alignment does not change significantly with flexion or extension. No acute fractures are present. [employer] Other XR lumbar spine 6V w bending There is slight disc space narrowing, greatest at L2-3 and the lumbosacral junction. There is [employer] Other XR lumbar spine 6V w bending endplate spurring, greater proximally and facet hypertrophy, greater distally. The SI joints show [employer] Other XR lumbar spine 6V w bending mild sclerosis. There is a bladder stimulator traversing a sacral foramen on the right. There is [employer] Other XR lumbar spine 6V w bending atherosclerotic plaque at the aorta and iliac arteries. [employer] Other XR lumbar spine 6V w bending XR/XR lumbar spine 6V w bending [employer] Other XR lumbar spine 6V w bending IMPRESSION: [employer] Other XR lumbar spine 6V w bending OSTEOPENIA, SCOLIOSIS AND DEGENERATIVE CHANGES, DESCRIBED [employer] Other XR lumbar spine 6V w bending Impression dictated by: Basilia Guevara M.D.07/25/2021 4:06 PM [employer] Other XR lumbar spine 6V w bending Dictation Location: [place] [address] [employer] Other XR lumbar spine 6V w bending Transcribed By: PWS 07/25/21 1606 [employer] Other XR lumbar spine 6V w bending Dictated By: Basilia Guevara MD 07/25/21 [facility] [employer] Other XR lumbar spine 6V w bending Signed By: [employer] Other XR lumbar spine 6V w bending 07/25/21 [facility] [employer] Other Basic Metabolic Panelon 10-0 Anion gap [Moles/Vol] 11 mmol/L 9 - 17 mmol/L [place], [place] Bun/Cre Ratio NOT REPORTED [place], [place] Calcium [Mass/Vol] 8.3 mg/dL Low 8.6 - 10. 4 mg/dL [place] Chloride [Moles/Vol] 104 mmol/L 98 - 10 7 mmol/L [place] CO2 [Moles/Vol] 26 mmol/L 20 - 31 mmol/L [place] Creatinine [Mass/Vol] 1.12 mg/dL 0.7 - 1.2 mg/dL [place] GFR >60 >60 mL/min [place] GFR Non- >60 >60 mL/min [place] GFR/1.73 sq M predicted among non-blacks MDRD (S/P/Bld) [Vol rate/Area] [place] Comment on above: Average GFR for 70 o r more years old: 75 mL/min/1.73sq m Chronic Kidney Disease: <60 mL/min/1.73sq m Kidney failure: <15 mL/min/1.73sq m eGFR calculated using average adult body mass. Additional eGFR calculator available at: http://www.imgix/multiple_crcl_2012.htm GFR/1.73 sq M predicted among non-blacks MDRD (S/P/Bld) [Vol rate/Area] NOT REPORTED [place] Glucose [Mass/Vol] 111 mg/dL High 70 - 99 mg/dL [place] Interpretation and review of laboratory results Abnormal [place] Potassium [Moles/Vol] 4.0 mmol/L 3.7 - 5.3 mmol/L [place] Sodium [Moles/Vol] 141 mmol/L 135 - 144 mmol/L [place] Urea nitrogen [Mass/Vol] 26 mg/dL High 8 - 23 mg/dL [place] Basic Metabolic Profon 06-13 (cont.) Normal [facility] Comment on above: Result Comment: Aver age GFR for 70 or more years old: 75 mL/min/1.73sq m Chronic Kidney Disease: <60 mL/min/1.73sq m Kidney failure: <15 mL/min/1.73sq m eGFR calculated using average adult body mass. Additional eGFR calculator available at: http://www.imgix/multiple_crcl_2012.htm Performed By: #### C BC, BMP, MG, GLYHGB #### [facility] [address] [place] [id number] Rest Room Maid: Bradley Richey MD Anion gap [Moles/Vol] 11 mmol/L Normal 9-17 [facility] Comment on above: Performed By: #### C BC, BMP, MG, GLYHGB #### [email or web address] [address] [place] [address] Rest Room Maid: Bradley Richey MD Calcium [Mass/Vol] 8.3 mg/dL Low 8.6-10.4 [facility] Comment on above: Performed By: #### C BC, BMP, MG, GLYHGB #### [facility] [address] [place] [address] [id number] Rest Room Maid: Bradley Richey MD Chloride [Moles/Vol] 104 mmol/L Normal 98-107 [facility] Comment on above: Performed By: #### C BC, BMP, MG, GLYHGB #### [facility] [address] [place] [address] Rest Room Maid: Bradley Richey MD CO2 [Moles/Vol] 26 mmol/L Normal 20-31 [facility] Comment on above: Performed By: #### C BC, BMP, MG, GLYHGB #### [facility] [address] [place] [address] Rest Room Maid: Bradley Richey MD Creatinine [Mass/Vol] 1.12 mg/dL Normal 0.70-1.20 [facility] Comment on above: Performed By: #### C BC, BMP, MG, GLYHGB #### [facility] [address] [place] [address] Rest Room Maid: Bradley Richey MD GFR, Amer >60 Normal >60 [facility] Comment on above: Performed By: #### C BC, BMP, MG, GLYHGB #### [facility] [address] [place] [address] Rest Room Maid: Bradley Richey MD GFR,non Amer >60 Normal >60 [facility] Comment on above: Performed By: #### C BC, BMP, MG, GLYHGB #### [facility] [address] [place] [address] Rest Room Maid: Bradley Richey MD Glucose [Mass/Vol] 111 mg/dL High 70-99 [facility] Comment on above: Performed By: #### C BC, BMP, MG, GLYHGB #### [facility] [address] [place] [address] Rest Room Maid: Bradley Richey MD Potassium [Moles/Vol] 4.0 mmol/L Normal 3.7-5.3 [facility] Comment on above: Performed By: #### C BC, BMP, MG, GLYHGB #### [facility] [employer] [address] [place] [address] Rest Room Maid: Bradley Richey MD Sodium [Moles/Vol] 141 mmol/L Normal 135-144 [facility] Comment on above: Performed By: #### C BC, BMP, MG, GLYHGB #### [email or web address] [address] [place] [address] Rest Room Maid: Bradley Richey MD Urea nitrogen [Mass/Vol] 26 mg/dL High - [facility] Comment on above: Performed By: #### C BC, BMP, MG, GLYHGB #### [facility] [employer] [address] [place] [address] Rest Room Maid: Bradley Richey MD BUN/CRE Ratio NOT REPORTED Normal 06-02 [facility] Comment on above: Performed By: #### C BC, BMP, MG, GLYHGB #### [facility] [employer] [address] [place] [address] Rest Room Maid: Bradley Richey MD Staging: NOT REPORTED Normal [facility] Comment on above: Performed By: #### C BC, BMP, MG, GLYHGB #### [email or web address] [address] [place] [address] Rest Room Maid: Bradley Richey MD CBCon 06-13-2019 Erythrocyte distribution width (RBC) [Ratio] 13.0 % Normal 11.8-14.4 [facility] Comment on above: Performed By: #### C BC, BMP, MG, GLYHGB #### [facility] [employer] [address] [place] [address] Rest Room Maid: Bradley Richey MD Hematocrit (Bld) [Volume fraction] 36.6 % Low 40.7-50.3 [facility] Comment on above: Performed By: #### C BC, BMP, MG, GLYHGB #### [address] [address] Rest Room Maid: Bradley Richey MD Hemoglobin (Bld) [Mass/Vol] 11.8 g/dL Low 13.0-17.0 [facility] Comment on above: Performed By: #### C BC, BMP, MG, GLYHGB #### [address] [address] Rest Room Maid: Bradley Richey MD MCH (RBC) [Entitic mass] 33.1 pg Normal 25.2-33.5 [facility] Comment on above: Performed By: #### C BC, BMP, MG, GLYHGB #### [address] [address] Rest Room Maid: Bradley Richey MD MCHC (RBC) [Mass/Vol] 32.2 g/dL Normal 28.4-34.8 [facility] Comment on above: Performed By: #### C BC, BMP, MG, GLYHGB #### [address] [address] Rest Room Maid: Bradley Richey MD MCV (RBC) [Entitic vol] 102.5 fL Normal 82.6-102.9 [facility] Comment on above: Performed By: #### C BC, BMP, MG, GLYHGB #### [address] [address] Rest Room Maid: Bradley Richey MD NRBC Automated 0.0 per 100 WBC Normal 0.0 [facility] Comment on above: Performed By: #### C BC, BMP, MG, GLYHGB #### [address] [address] Rest Room Maid: Bradley Richey MD Platelet mean volume (Bld) [Entitic vol] 9.8 fL Normal 8.1-13.5 [facility] Comment on above: Performed By: #### C BC, BMP, MG, GLYHGB #### [facility] [employer] [facility] [place] [address] Rest Room Maid: Bradley Richey MD Platelets (Bld) [#/Vol] 174 10*3/uL Normal 138-453 [facility] Comment on above: Performed By: #### C BC, BMP, MG, GLYHGB #### [email or web address] [place] [address] Rest Room Maid: Bradley Richey MD RBC (Bld) [#/Vol] 3.57 10*6/uL Low 4.21-5.77 [facility] Comment on above: Performed By: #### C BC, BMP, MG, GLYHGB #### [facility] [employer] [address] [place] [address] Rest Room Maid: Bradley Richey MD WBC (Bld) [#/Vol] 8.7 10*3/uL Normal 3.5-11.3 [facility] Comment on above: Performed By: #### C BC, BMP, MG, GLYHGB #### [facility] [employer] [facility] [place] [address] Rest Room Maid: Bradley Richey MD Erythrocyte distribution width (RBC) [Ratio] 13.0 % 11.8 - 14.4 % [place] Hematocrit (Bld) [Volume fraction] 36.6 % Low 40.7 - 50.3 % [place] Hemoglobin (Bld) [Mass/Vol] 11.8 g/dL Low 13 - 17 g/dL [place] Interpretation and review of laboratory results Abnormal [place] MCH (RBC) [Entitic mass] 33.1 pg 25.2 - 33.5 pg [place] MCHC (RBC) [Mass/Vol] 32.2 g/dL 28.4 - 34.8 g/dL [place] MCV (RBC) [Entitic vol] 102.5 fL 82.6 - 102.9 fL [place] Platelet mean volume (Bld) [Entitic vol] 9.8 fL 8.1 - 13.5 fL [place] Platelets (Bld) [#/Vol] 174 10*3/uL [place] RBC (Bld) [#/Vol] 3.57 10*6/uL Low 4.21 - 5.77 m/uL [place] WBC (Bld) [#/Vol] 0.0 10*3/uL 0.0 per 100 WBC [place] WBC (Bld) [#/Vol] 8.7 10*3/uL [place] HEMOGLOBIN A1Con 06-13-2019 Glucose [Mass/Vol] 143 mg/dL [place] Comment on above: The ADA and AACC rec ommend providing the estimated average glucose result to permit better patient understanding of their HBA1c result. HbA1c (Bld) [Mass fraction] 6.6 % High 4 - 6 % [place] Interpretation and review of laboratory results Abnormal [place] Hemoglobin A1Con 06-13-2019 HbA1c (Bld) [Mass fraction] 6.6 % High 4.0-6.0 [facility] Comment on above: Performed By: #### C BC, BMP, MG, GLYHGB #### [facility] [address] [place], [place] [id number] Rest Room Maid: Bradley Richey MD HbA1c (Bld) [Mass fraction] 143 mg/dL Normal [facility] Comment on above: Result Comment: The ADA and AACC recommend providing the estimated average glucose result to permit better patient understanding of their HBA1c result. Performed By: #### C BC, BMP, MG, GLYHGB #### [facility] [address] [place], [place] [id number] Rest Room Maid: Bradley Richey MD Magnesiumon 06-13-2019 Magnesium [Mass/Vol] 1.9 mg/dL Normal 1.6-2.6 [facility] Comment on above: Performed By: #### C BC, BMP, MG, GLYHGB #### [facility] [address] [place] [address] Rest Room Maid: Bradley Richey MD Magnesium [Mass/Vol] 1.9 mg/dL 1.6 - 2 .6 mg/dL [place] POC Glucose Fingerstickon Glucose [Mass/Vol] 209 mg/dL High 75 - 110 mg/dL [place] Interpretation and review of laboratory results Abnormal [place] Glucose [Mass/Vol] 165 mg/dL High 75 - 110 mg/dL [place] Interpretation and review of laboratory results Abnormal [place] XR CHEST (2 VW)on 06-13-2019 XR [...] Abdon Dolan MD 06/13/19 Final result Normal [facility] XR CHEST PORTABLEon 06-13-20 XR CHEST [...] Rosalba Brush DO 06/12/19 Final result Normal [facility] CHLORIDE (POC)on 06-12-2019 Chloride [Moles/Vol] 107 mmol/L 98 - 10 7 mmol/L [place] Creatinine W/GFR Point of Ca reon 06-12-2019 Creatinine [Mass/Vol] 1.02 mg/dL 0.51 - 1.19 mg/dL [place] GFR Non- >60 >60 mL/min [place] GFR/1.73 sq M predicted among non-blacks MDRD (S/P/Bld) [Vol rate/Area] mL/min/{1.73_m2} >60 mL/min [place] GFR/1.73 sq M predicted among non-blacks MDRD (S/P/Bld) [Vol rate/Area] [place] Comment on above: Average GFR for 70 o r more years old: 75 mL/min/1.73sq m Chronic Kidney Disease: <60 mL/min/1.73sq m Kidney failure: <15 mL/min/1.73sq m eGFR calculated using average adult body mass. Additional eGFR calculator available at: http://www.imgix/multiple_crcl_2012.htm Hemoglobin and hematocrit, b loodon 06-12-2019 Hematocrit (Bld) [Volume fraction] 34 % Low 41 - 53 % [place] Hemoglobin (Bld) [Mass/Vol] 11.5 g/dL Low 13.5 - 17.5 g/dL [place] Otheron 06-12-2019 Interpretation and review of laboratory results Abnormal [place] POC Glucose Fingerstickon Glucose [Mass/Vol] 115 mg/dL High 75 - 110 mg/dL [place] Interpretation and review of laboratory results Abnormal [place] Glucose [Mass/Vol] 112 mg/dL High 75 - 110 mg/dL [place] Interpretation and review of laboratory results Abnormal [place] POCT Glucoseon 06-12-2019 Glucose [Mass/Vol] 120 mg/dL High 74 - 100 mg/dL [place] POTASSIUM (POC)on 06-12-2019 Potassium [Moles/Vol] 4.4 mmol/L 3.5 - 4.5 mmol/L [place] SODIUM (POC)on 06-12-2019 Sodium [Moles/Vol] 144 mmol/L 138 - 146 mmol/L [place] XR CHEST PORTABLEon 06-12-20 19 Left chest pacemaker device in place. No evidence of pneumothorax. [place] EXAMINATION: ONE XRA Y VIEW OF [...] effusion. No free air beneath the diaphragm. [place] Prieto, Mhpn Incoming Radiant Results From [employer]/WAKU WAKU ? - 06/12/2019 10:21 PM EDT EXAMINATION: ONE [...] device in place. No evidence of pneumothorax. [place] XR KNEE RIGHT (3 VIEWS)on XR [...] by:DEEDEE Ariasigned by:Abdon Dolan MD01/17/18inal result Normal [facility] Vital Signs Date Time Vital Sign Value Performing Clinician Facility 08-24-2024 14:50-0500 Body height 165.1 cm Viky Lowe PA Work Phone: [facility] 08-24-2024 14:50-0500 Diastolic blood pressure 108 mm[Hg] Viky Lowe PA Work Phone: [facility] 08-24-2024 14:50-0500 Heart rate 61 /min Viky Lowe PA Work Phone: [facility] 08-24-2024 14:50-0500 Systolic blood pressure 132 mm[Hg] Viky Lowe PA Work Phone: [facility] 07-27-2024 15:08-0500 Diastolic blood pressure 58 mm[Hg] Rosemary Cartagena MD Work Phone: [facility] 07-27-2024 15:08-0500 Systolic blood pressure 112 mm[Hg] Rosemary Cartagena MD Work Phone: [facility] 07-27-2024 14:30-0500 Body height 167.6 cm Rosemary Cartagena MD Work Phone: [facility] 07-27-2024 14:30-0500 Body mass index (BMI) [Ratio] 28.73 kg/m2 Rosemary Cartagena MD Work Phone: [facility] 07-27-2024 14:30-0500 Body weight 80.74 kg Rosemary Cartagena MD Work Phone: [facility] 07-27-2024 14:30-0500 Heart rate 62 /min Rosemary Cartagena MD Work Phone: [facility] 07-13-2024 14:18-0400 Body height 167.6 cm Ivky Lowe PA Work Phone: [facility] 07-13-2024 14:18-0400 Body mass index (BMI) [Ratio] 28.57 kg/m2 Viky Lowe PA Work Phone: [facility] 07-13-2024 14:18-0400 Body weight 80.29 kg Viky Lowe PA Work Phone: [facility] 07-13-2024 14:18-0400 Diastolic blood pressure 60 mm[Hg] Viyk Lowe PA Work Phone: [facility] 07-13-2024 14:18-0400 Systolic blood pressure 132 mm[Hg] Viky Lowe PA Work Phone: [facility] 06-13-2024 14:08-0400 Body height 167.6 cm Viky Lowe PA Work Phone: [facility] 06-13-2024 14:08-0400 Body mass index (BMI) [Ratio] 29.38 kg/m2 Viky Lowe PA Work Phone: [facility] 06-13-2024 14:08-0400 Body weight 82.56 kg Viky Lowe PA Work Phone: [facility] 06-13-2024 14:08-0400 Diastolic blood pressure 78 mm[Hg] Viky Lowe PA Work Phone: [facility] 06-13-2024 14:08-0400 Systolic blood pressure 142 mm[Hg] Viky Lowe PA Work Phone: [facility] 04-25-2024 13:55-0400 Blood Pressure Location Anabel Orzech [facility] 04-25-2024 13:55-0400 Diastolic blood pressure 56 mm[Hg] Anabel Orzech [facility] 04-25-2024 13:55-0400 Heart rate 63 /min Anabel Orzech [facility] 04-25-2024 13:55-0400 Respiratory rate 18 /min Anabel Salinas [facility] 04-25-2024 13:55-0400 Systolic blood pressure 110 mm[Hg] Anabel Orzech [facility] 04-24-2024 13:45-0400 Body height 167.6 cm Rosemary Cartagena MD Work Phone: [facility] 04-24-2024 13:45-0400 Body mass index (BMI) [Ratio] 29.96 kg/m2 Rosemary Cartagena MD Work Phone: [facility] 04-24-2024 13:45-0400 Body weight 84.19 kg Rosemary Cartagena MD Work Phone: [facility] 04-24-2024 13:45-0400 Diastolic blood pressure 62 mm[Hg] Rosemary Cartagena MD Work Phone: [facility] 04-24-2024 13:45-0400 Heart rate 62 /min Rosemary Cartagena MD Work Phone: [facility] 04-24-2024 13:45-0400 Systolic blood pressure 104 mm[Hg] Rosemary Cartagena MD Work Phone: [facility] 04-03-2024 11:19-0400 Body height 167.64 cm DO Shanique Anderson Work Phone: [facility] 04-03-2024 11:19-0400 Body mass index (BMI) [Ratio] 29.3 kg/m2 DO Shanique Anderson Work Phone: [facility] 04-03-2024 11:19-0400 Body weight 82.55 kg DO Shanique Anderson Work Phone: [facility] 04-03-2024 11:19-0400 Diastolic blood pressure 42 mm[Hg] DO Shanique Anderson Work Phone: [facility] 04-03-2024 11:19-0400 Heart rate 66 /min DO Shanique Anderson Work Phone: [facility] 04-03-2024 11:19-0400 Systolic blood pressure 93 mm[Hg] DO Shanique Anderson Work Phone: [facility] 12-22-2023 14:28-0400 Body height 167.6 cm [facility] 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 Work Phone: [facility] 12-22-2023 14:28-0400 Body mass index (BMI) [Ratio] 31.47 kg/m2 [facility] 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 Work Phone: [facility] 12-22-2023 14:28-040 Body weight 88.45 kg [facility] 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 Work Phone: [facility] 12-22-2023 14:28-0400 Diastolic blood pressure 50 mm[Hg] [facility] 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 Work Phone: [facility] 12-22-2023 14:28-0400 Heart rate 60 /min [facility] 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 Work Phone: [facility] 12-22-2023 14:28-0400 Systolic blood pressure 120 mm[Hg] [facility] 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 Work Phone: [facility] 12-06-2023 15:090400 Body height 167.6 cm [facility] 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 Work Phone: [facility] 12-06-2023 15:09-0400 Body mass index (BMI) [Ratio] 29.86 kg/m2 [facility] 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 Work Phone: [facility] 12-06-2023 15:090400 Body weight 83.92 kg [facility] 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 Work Phone: [facility] 12-06-2023 15:09-0400 Diastolic blood pressure 64 mm[Hg] [facility] 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 Work Phone: [facility] 12-06-2023 15:09-0400 Heart rate 60 /min [facility] 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 Work Phone: [facility] 12-06-2023 15:09-0400 Systolic blood pressure 112 mm[Hg] [facility] 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 Work Phone: [facility] 10-25-2023 15:04-0500 Body height 167.6 cm Rosemary Cartagena MD Work Phone: [facility] 10-25-2023 15:04-0500 Body mass index (BMI) [Ratio] 30.67 kg/m2 Rosemary Cartagena MD Work Phone: [facility] 10-25-2023 15:04-0500 Body weight 86.18 kg Rosemary Cartagena MD Work Phone: [facility] 10-25-2023 15:04-0500 Diastolic blood pressure 62 mm[Hg] Rosemary Cartagena MD Work Phone: [facility] 10-25-2023 15:04-0500 Heart rate 64 /min Rosemary Cartagena MD Work Phone: [facility] 10-25-2023 15:04-0500 Systolic blood pressure 118 mm[Hg] Rosemary Cartagena MD Work Phone: [facility] 09-02-2023 13:25-0500 Body height 167.[address] 09-02-2023 13:25-0500 Body mass index (BMI) [Ratio] 30.99 kg/m2 [address] 09-02-2023 13:25-0500 Body weight 87.[address] 09-02-2023 13:25-0500 Diastolic blood pressure 74 mm[Hg] [address] 09-02-2023 13:25-0500 Systolic blood pressure 112 mm[Hg] [address] 08-30-2023 11:14-0500 Diastolic blood pressure 80 mm[Hg] Rosemary Cartagena MD Work Phone: [facility] 08-30-2023 11:14-0500 Heart rate 67 /min Rosemary Cartagena MD Work Phone: [facility] 08-30-2023 11:14-0500 Systolic blood pressure 110 mm[Hg] Rosemary Cartagena MD Work Phone: [facility] 08-30-2023 11:13-0500 Body height 167.6 cm Rosemary Cartagena MD Work Phone: [facility] 08-30-2023 11:13-0500 Body mass index (BMI) [Ratio] 30.99 kg/m2 Rosemary Cartagena MD Work Phone: [facility] 08-30-2023 11:13-0500 Body weight 87.09 kg Rosemary Cartagena MD Work Phone: [facility] 04-01-2023 14:00-0400 Body height 167.64 cm Alexei Van Other [employer] Other 04-01-2023 14:00-0400 Body mass index (BMI) [Ratio] 28.73 kg/m2 Alexei Van Other [employer] Other 04-01-2023 14:00-0400 Body weight 80.74 kg Alexei Van Other [facility] [employer] Other 04-01-2023 14:00-0400 Diastolic blood pressure 74 mm[Hg] Alexei Van Other [employer] Other 04-01-2023 14:00-0400 Systolic blood pressure 140 mm[Hg] Alexei Van Other [employer] Other 03-11-2022 16:00-0400 Body height 167.64 cm Alexei Van Other [facility] [employer] Other 03-11-2022 16:00-0400 Body mass index (BMI) [Ratio] 29.05 kg/m2 Alexei Van Other [employer] Other 03-11-2022 16:00-0400 Body weight 81.65 kg Alexei Van Other [employer] Other 09-02-2021 15:40-0500 Body height 167.64 cm Osvaldo Maciel Other [employer] Other 09-02-2021 15:40-0500 Body mass index (BMI) [Ratio] 32.6 kg/m2 Osvaldo Maciel Other [employer] Other 09-02-2021 15:40-0500 Body weight 91.63 kg Osvaldo Maciel Other [employer] Other 08-25-2021 15:30-0500 Body height 167.64 cm Abdon Jackman Other [employer] Other 08-25-2021 15:30-0500 Body mass index (BMI) [Ratio] 32.6 kg/m2 Abdon Jackman Other [employer] Other 08-25-2021 15:30-0500 Body temperature 98.1 [degF] Abdon Jackman Other [employer] Other 08-25-2021 15:30-0500 Body weight 91.63 kg Abdon Jackman Other [employer] Other 08-25-2021 15:30-0500 Diastolic blood pressure 68 mm[Hg] Abdon Agarwalstar Other [employer] Other 08-25-2021 15:30-0500 SaO2% (BldA) [Mass fraction] 98 % Abdon Agarwalstar Other [employer] Other 08-25-2021 15:30-0500 Systolic blood pressure 136 mm[Hg] Abdon Augustina Other [employer] Other 07-24-2021 14:20-0500 Body height 167.64 cm Osvaldo Maciel Other [employer] Other 07-24-2021 14:20-0500 Body mass index (BMI) [Ratio] 32.6 kg/m2 Osvaldo Maciel Other [employer] Other 07-24-2021 14:20-0500 Body weight 91.63 kg Osvaldo Maciel Other [employer] Other 07-24-2021 14:20-0500 Diastolic blood pressure 75 mm[Hg] Osvaldo Maciel Other [employer] Other 07-24-2021 14:20-0500 Systolic blood pressure 134 mm[Hg] Osvaldo Maciel Other [employer] Other 07-03-2021 17:15-0400 Body height 167.64 cm Ryder Pollack Other [employer] Other 07-03-2021 17:15-0400 Body mass index (BMI) [Ratio] 31.95 kg/m2 Ryder Pollack Other [employer] Other 07-03-2021 17:15-0400 Body weight 89.81 kg Ryder Pollack Other [employer] Other 07-03-2021 17:15-0400 Diastolic blood pressure 60 mm[Hg] Ryder Pollack Other [employer] Other 07-03-2021 17:15-0400 SaO2% (BldA) [Mass fraction] 98 % Ryder Pollack Other [employer] Other 07-03-2021 17:15-0400 Systolic blood pressure 140 mm[Hg] Ryder Pollack Other [employer] Other 06-30-2021 16:45-0400 Body height 167.64 cm Abdon Jackman Other [employer] Other 06-30-2021 16:45-0400 Body mass index (BMI) [Ratio] 31.95 kg/m2 Abdon Jackman Other [employer] Other 06-30-2021 16:45-0400 Body temperature 97.6 [degF] Abdon Jackman Other [employer] Other 06-30-2021 16:45-0400 Body weight 89.81 kg Abdon Jackman Other [employer] Other 06-30-2021 16:45-0400 Diastolic blood pressure 68 mm[Hg] Abdon Jackman Other [employer] Other 06-30-2021 16:45-0400 SaO2% (BldA) [Mass fraction] 96 % Abdon Jackman Other [employer] Other 06-30-2021 16:45-0400 Systolic blood pressure 130 mm[Hg] Abdon Augustina Other [employer] Other 06-16-2021 15:00-0400 Body weight 89.9 kg Ryder Pollack Other [employer] Other 06-16-2021 15:00-0400 Diastolic blood pressure 76 mm[Hg] Ryder Israelky Other [employer] Other 06-16-2021 15:00-0400 Respiratory rate 18 /min Ryder Israelky Other [employer] Other 06-16-2021 15:00-0400 SaO2% (BldA) [Mass fraction] 95 % Ryder Pollack Other [employer] Other 06-16-2021 15:00-0400 Systolic blood pressure 152 mm[Hg] Ryder Israelky Other [employer] Other 06-13-2019 11:52-0400 Body Temperature 98.4 [degF] Ameer [facility] [place] 06-13-2019 11:52-0400 BP Diastolic 55 mm[Hg] Amr [facility] [place] , [place] 06-13-2019 11:52-0400 BP Systolic 123 mm[Hg] [facility] [place] 06-13-2019 11:52-0400 Pulse (Heart Rate) 63 /min [facility] [place] 06-13-2019 11:52-0400 Respiratory Rate 20 /min [facility] [place] 06-13-2019 07:15-0400 BMI (Body Mass Index) 33.06 kg/m2 Ameer [facility] [place] 06-13-2019 07:15-0400 Body weight 92.9 kg Ameer [facility] , [place] 06-13-2019 07:15-0400 Height 167.6 cm Ameer [facility] [place] 06-12-2019 20:20-0400 Pulse Oximetry 93 % Ameer [facility] [place] Encounters Encounter Date Encounter Type Care Provider Facility Start: 10-03-2024 ambulatory Petr PAINTING Facility :[facility] Start: 08-24-2024 End: 08-24-2024 Office outpatient visit 25 minutes Viky OLSEN Work Phone: [facility] Comment on above: Periodic limb moveme nt disorder (Primary Dx); Gait difficulty; Balance problem; Radiculopathy, lumbosacral region; Memory loss Start: 08-24-2024 End: 08-24-2024 ambulatory VIKY ROLLINS Not Available Start: 08-24-2024 End: 08-24-2024 [employer]ioeliz OLSEN Work Phone: [facility] Start: 08-24-2024 End: 08-24-2024 [employer]keith [employer]ioeliz OLSEN Work Phone: [facility] Start: 07-27-2024 End: 07-27-2024 ambulatory [facility] Start: 07-27-2024 End: 07-27-2024 Office outpatient visit 25 minutes Rosemary Cartagena MD Work Phone: [facility] Comment on above: Congestive heart chris momo, NYHA class 3, chronic, systolic; 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; Hx of coronary artery bypass graft; ICD (implantable cardioverter-defibrillator) in place; Ischemic cardiomyopathy; 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 Start: 07-13-2024 End: 07-13-2024 Bamboo flowsheet Viky Lowe PA Work Phone: [facility] Start: 06-29-2024 End: 06-29-2024 Patient encounter procedure DO Shanique Anderson Work Phone: [facility] [address] Work Phone: Start: 06-29-2024 End: 06-29-2024 ambulatory DO Shanique Edgerton Work Phone: [facility] Work Phone: Start: 06-15-2024 End: 06-15-2024 ambulatory Petr PAINTNIG Facility:[facility] Start: 06-15-2024 End: 06-15-2024 Patient encounter procedure Petr PAINTING [facility] Start: 06-13-2024 End: 06-13-2024 ambulatory VIKY LOWE Not Available Start: 06-13-2024 End: 06-13-2024 Bamboo flowsheet Viky Lowe PA [facility] Start: 06-13-2024 End: 06-13-2024 Bamboo flowsheet Viky OLSEN [facility] Phone[facility] Start: 06-13-2024 End: 06-13-2024 Office outpatient visit 25 minutes Viky OLSEN Work Phone: [facility] Comment on above: Hyperreflexia (Prima ry Dx); Gait difficulty; Vertigo; Anxiety; Memory loss; Balance problem; Chronic post-traumatic headache, not intractable Start: 06-07-2024 End: 06-07-2024 Patient encounter procedure DO Shanique Anderson Work Phone: [facility]Pac[facility] Check Start: 06-07-2024 End: 06-07-2024 ambulatory DO Shanique Anderson Work Phone: [facility] Work Phone: Start: 06-07-2024 Non-patient / Non-visit DO Vibha Anderson Work Phone: [facility] Start: 05-10-2024 End: 05-10-2024 Patient encounter procedure DO Shanique Anderson Work Phone: [facility] Work Phone: Start: 05-10-2024 End: 05-10-2024 ambulatory DO Shanique Anderson Work Phone: [facility] Work Phone: Start: 04-25-2024 End: 04-25-2024 ambulatory Anabel X Orzech Facility:[facility] Start: 04-25-2024 End: 04-25-2024 Patient encounter procedure Anabel X Orzech [facility] Start: 04-24-2024 End: 04-24-2024 Office outpatient visit 25 minutes Rosemary Cartagena MD Work Phone: [facility] Comment on above: Permanent atrial fib rillation (Multi); Ischemic cardiomyopathy; Congestive heart failure, NYHA class 3, chronic, systolic (Multi); ICD (implantable cardioverter-defibrillator) in place; Coronary artery disease involving chippewa-cree coronary artery of chippewa-cree heart without angina pectoris; Hx of coronary artery bypass graft; 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; [facility] 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; Other specified diabetes mellitus with other specified complication, unspecified whether shelter insulin use (Multi); Obstructive sleep apnea syndrome; History of stroke; Stage 3b chronic kidney disease (Multi); BMI 29.0-29.9,adult; Former smoker; Nonrheumatic mitral valve regurgitation; Nonrheumatic aortic valve insufficiency Start: 04-24-2024 End: 04-24-2024 ambulatory [facility] Start: 04-03-2024 End: 04-03-2024 ambulatory DO Shanique Anderson Work Phone: [facility] Work Phone: Start: 04-03-2024 End: 04-03-2024 Patient encounter procedure DO Shanique Anderson Work Phone: [facility] Work Phone: Start: 03-06-2024 End: 03-06-2024 Patient encounter procedure DO Shanique Anderson Work Phone: [facility] Start: 03-06-2024 End: 03-06-2024 ambulatory DO Shanique Anderson Work Phone: [facility] Work Phone: Start: 03-01-2024 End: 03-01-2024 ambulatory SADAF TANNER Facility:[facility] Start: 03-01-2024 End: 03-01-2024 Patient encounter procedure SADAF TANNER [facility] [place] Start: 02-23-2024 End: 02-23-2024 ambulatory VIKY ROLLINS Not Available Start: 02-18-2024 End: 02-18-2024 Patient encounter procedure DO Shanique Anderson Work Phone: [facility] [place] Work Phone: Start: 02-18-2024 End: 02-18-2024 ambulatory DO Shanique Anderson Work Phone: [facility] Work Phone: Start: 01-31-2024 End: 01-31-2024 ambulatory [facility] Ambulatory Start: 01-26-2024 ambulatory Anabel Albert Facility: [facility] Start: 01-25-2024 End: 01-25-2024 ambulatory VIKY ROLLINS Not Available Start: 12-22-2023 End: 12-22-2023 ambulatory [facility] Start: 12-22-2023 End: 12-22-2023 Office outpatient visit 15 minutes Hosea Heart 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 Work Phone: [facility] Comment on above: BMI 31.0-31.9,adult (Primary Dx); Ischemic cardiomyopathy Start: 12-06-2023 End: 12-06-2023 ambulatory [facility] Start: 12-06-2023 End: 12-06-2023 Office outpatient visit 15 minutes Hosea Heart 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 Work Phone: [facility] Comment on above: BMI 29.0-29.9,adult (Primary Dx); Ischemic cardiomyopathy; 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 Start: 12-03-2023 End: 12-03-2023 Patient encounter procedure DO Shanique Anderson Work Phone: [facility] [place] Work Phone: Start: 12-03-2023 End: 12-03-2023 ambulatory DO Shanique Anderson Work Phone: [facility] Work Phone: Start: 12-03-2023 End: 12-03-2023 Patient encounter procedure DO Shanique Anderson Work Phone: [facility] Start: 12-03-2023 End: 12-03-2023 ambulatory Shaniqueaditya Anderson Work Phone: [facility] Work Phone: Start: 10-25-2023 End: 10-25-2023 ambulatory [facility] Start: 10-25-2023 End: 10-25-2023 Office outpatient visit 25 minutes Rosemary Cartagena MD Work Phone: [facility] Comment on above: Bipolar disorder, cu rrent episode manic severe with psychotic features (CMS/HCC) (Primary Dx); Permanent atrial fibrillation (CMS/HCC); Ischemic cardiomyopathy; ICD (implantable cardioverter-defibrillator) in place; Hx of coronary artery bypass graft; Coronary artery disease involving chippewa-cree coronary artery of chippewa-cree heart without angina pectoris; History of stroke; Other specified diabetes mellitus with other specified complication, 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 (CMS/HCC); 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; [facility] 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; Obstructive sleep [...] 09-16-2023 End: 09-16-2023 ambulatory Alexei Van Other [employer] Other Start: 09-16-2023 Telephone encounter [facility] Te[facility] Start: 09-02-2023 End: 09-02-2023 Subsequent hospital visit by physician Farzana Hwang Echo/Vasc Room 2 [facility] Comment on above: Abnormal EKG; Sleep apnea, unspecified type; Permanent atrial fibrillation (CMS/HCC); Shortness of breath Start: 09-02-2023 End: 09-02-2023 ambulatory [facility] Start: 09-02-2023 End: 09-02-2023 Patient encounter procedure DO Shanique Anderson Work Phone: [facility] Start: 09-02-2023 End: 09-02-2023 ambulatory DO Shanique Anderson Work Phone: [facility] Work Phone: Start: 08-30-2023 End: 08-30-2023 Office outpatient new 60 minutes Rosemary Cartagena MD Work Phone: [facility] Comment on above: Permanent atrial fib rillation (CMS/HCC) (Primary Dx); ICD (implantable cardioverter-defibrillator) in place; Sleep apnea, unspecified type; Abnormal EKG; Hx of coronary artery bypass graft; Coronary artery disease, unspecified vessel or lesion type, unspecified whether angina present, unspecified whether chippewa-cree or transplanted heart; [facility] 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; Shortness of breath; History of stroke; Benign prostatic hyperplasia with lower urinary tract symptoms, symptom details unspecified; Ischemic cardiomyopathy; Fatigue, unspecified type; Other specified diabetes mellitus with other specified complication, unspecified whether shelter insulin use (CMS/HCC) Start: 08-30-2023 End: 08-30-2023 ambulatory [facility] Start: 08-12-2023 End: 08-12-2023 ambulatory Alexei Van Other [facility] [employer] Other Start: 08-12-2023 Telephone encounter Alexei STONE [facility] Start: 04-01-2023 End: 04-01-2023 ambulatory Alexei Van Other [facility] [employer] Other Start: 04-01-2023 Patient encounter procedure Alexei Van [facility] Start: 11-30-2022 End: 11-30-2022 ambulatory DO Shanique Anderson Work Phone: [facility] Work Phone: Start: 11-30-2022 End: 11-30-2022 Patient encounter procedure DO Shanique Anderson Work Phone: [facility]Ul[facility] Cntr for Breast Car Start: 08-27-2022 Telephone encounter Alexei STONE [facility] Start: 08-27-2022 End: 08-27-2022 ambulatory ALEXEI VAN Facility:[facility] Start: 08-25-2022 End: 08-25-2022 ambulatory Alexei Van Other [facility] [employer] Other Start: 08-25-2022 Telephone encounter Alexei STONE [facility] Start: 05-12-2022 End: 05-12-2022 ambulatory Ryder Pollack Other [facility] [employer] Other Start: 05-12-2022 Telephone encounter Ryder Pollack [facility] Start: 03-11-2022 End: 03-11-2022 ambulatory Alexei Van Other [facility] [employer] Other Start: 03-11-2022 Patient encounter procedure Alexei Van [facility] Start: 12-25-[address] SHANIQUE ANDERSON Facil ity:[facility] Start: 12-16-2021 End: 12-16-2021 ambulatory ALEXEI VAN Facility:[facility] Start: 12-15-2021 End: 12-15-2021 ambulatory Alexei Van Other [facility] [employer] Other Start: 12-15-2021 Telephone encounter Alexei STONE [facility] Start: 11-26-2021 End: 11-27-[address] SHANIQUE ANDERSON Facility:[facility] Start: 09-18-2021 End: 10-28-2021 ambulatory ALBIN BABIN Facility:[facility] Start: 09-02-2021 End: 09-02-2021 ambulatory Osvaldo Maciel Other [facility] [employer] Other Start: 09-02-2021 Office outpatient vi sit 25 minutes Osvaldo Maciel [facility] Start: 08-25-2021 End: 08-25-2021 ambulatory Abdon Jackman Other [facility] [employer] Other Start: 08-25-2021 Office outpatient vi sit 25 minutes Abdon Jackman [facility] Start: 07-24-2021 End: 07-24-2021 ambulatory Osvaldo Maciel Other [facility] [employer] Other Start: 07-24-2021 Office outpatient ne w 45 minutes Osvaldo Maciel [facility] Neuro[facility] Start: 07-03-2021 Office outpatient vi sit 25 minutes Ryder Pollack [facility] Start: 07-01-2021 Telephone encounter Abdon burrell [facility] Start: 06-30-2021 Office outpatient vi sit 40 minutes Abdon Jackman [facility] Start: 06-25-2021 Telephone encounter Glenda Guillen [facility] Start: 06-24-2021 (Procedure) Short Ryderedison Pollack [facility] Start: 06-17-2021 Telephone encounter Ryder Pollack [facility] Start: 06-16-2021 Office outpatient vi sit 25 minutes Ryder Pollack [facility] Start: 06-16-2021 Telephone encounter Ryder Pollack [facility] Start: 06-12-2019 End: 06-13-2019 Patient encounter procedure RAÚL VALE [facility] Start: 06-12-2019 End: 06-13-2019 Subsequent hospital visit by physician Raúl Vale Work Phone: [facility] CAR 2 Comment on above: S/P ICD (internal ca rdiac defibrillator) procedure Start: 01-17-2018 End: 01-20-2018 [facility] Procedures Date Procedure Procedure Detail Performing Clinician Start: 07-27-2024 Ecg routine ecg w/least 12 lds w/i&r Rosemary Cartagena MD Work Phone: Start: 06-29-2024 CT cervical spine without contrast DO Shanique Anderson Work Phone: Start: 06-29-2024 CT of head without contrast DO Shanique michaudtoynes Work Phone: Start: 02-18-2024 CT of head with contrast DO Shanique Soraida buchanan Work Phone: Start: 01-31-2024 FOLLOW UP IN CARDIOLOGY ROSEMARY CARTAGENA Start: 12-22-2023 FOLLOW UP IN CARDIOLOGY ROSEMARY CARTAGENA Start: 12-06-2023 FOLLOW UP IN CARDIOLOGY ROSEMARY CARTAGENA Start: 10-25-2023 FOLLOW UP IN CARDIOLOGY ROSEMARY CARTAGENA Start: 09-02-2023 TRANSTHORACIC ECHO (TTE) COMPLETE ROSEMARY MCKEONAN Start: 09-02-2023 Echo tthrc r-t 2d w/wom-mode compl spec&colr d Rosemary Cartagena MD Work Phone: Start: 08-30-2023 History of coronary artery bypass grafting Hx of coronary artery bypass graft Rosemary Cartagena MD Work Phone: Start: 08-30-2023 ECG 12-LEAD ROSEMARY CARTAGENA Start: 08-30-2023 Ecg routine ecg w/least 12 lds w/i&r Rosemary Cartagena MD Work Phone: Start: 11-30-2022 Ultrasonography of bilateral breasts DO Jordanaditya Anderson Work Phone: Start: 06-13-2019 Gluc bld gluc mntr dev cleared fda spec home use RAÚL VALE Start: 06-13-2019 PULSE OXIMETRY, CONTINUOUS RALÚ VALE Start: 06-13-2019 Glucose blood reagent strip RAÚL VALE Start: 06-13-2019 Radiologic exam chest 2 views RAÚL VALE Start: 06-13-2019 Glucose blood reagent strip Raúl Vale Work Phone: Start: 06-13-2019 DISCHARGE PATIENT RAÚL VALE Start: 06-13-2019 DIET CARDIAC RAÚL VALE Start: 06-13-2019 Glucose blood reagent strip RAÚL VALE Start: 06-13-2019 ICD FORM RAÚL VALE Start: 06-13-2019 Gluc bld gluc mntr dev cleared fda spec home use RAÚL VALE Start: 06-13-2019 INITIATE OXYGEN THERAPY PROTOCOL RAÚL VALE Start: 06-13-2019 PULSE OXIMETRY, CONTINUOUS AMMARCELINOHali AKANKSHA Start: 06-13-2019 Glucose blood reagent strip Ammarcelinor Akanksha Work Phone: Start: 06-13-2019 ICD FORM Hpf Scanning Start: 06-13-2019 Assay of magnesium AMMARCELINOR AKANKSHA Start: 06-13-2019 Basic metabolic panel calcium total AMEER AKANKSHA Start: 06-13-2019 Blood count complete automated AMEER AKANKSHA Start: 06-13-2019 Hemoglobin glycosylated a1c AMMARCELINOR AKANKSHA Start: 06-13-2019 Gluc bld gluc mntr dev cleared fda spec home use AMEER AKANKSHA Start: 06-13-2019 PULSE OXIMETRY, CONTINUOUS AMMARCELINOR AKANKSHA Start: 06-13-2019 Assay of magnesium Clement Song Work Phone: Start: 06-13-2019 Basic metabolic panel calcium total Clement Song Work Phone: Start: 06-13-2019 Blood count complete automated Clement Song Work Phone: Start: 06-13-2019 Hemoglobin glycosylated a1c Clement Song Work Phone: Start: 06-13-2019 ACTIVITY TOLERATED AMBRY VALE Start: 06-13-2019 DAILY WEIGHTS AMBRY VALE Start: 06-13-2019 INTAKE AND OUTPUT AMMARCELINOR AKANKSHA Start: 06-13-2019 PULSE OXIMETRY, CONTINUOUS AMMARCELINOR AKANKSHA Start: 06-12-2019 Glucose blood reagent strip AMMARCELINOR AKANKSHA Start: 06-12-2019 Gluc bld gluc mntr dev cleared fda spec home use AMMARCELINOR AKANKSHA Start: 06-12-2019 PULSE OXIMETRY, CONTINUOUS AMMARCELINOR AKANKSHA Start: 06-12-2019 Glucose blood reagent strip Ammarcelinor Akanksha Work Phone: Start: 06-12-2019 Glucose blood reagent strip AMMARCELINOR AKANKSHA Start: 06-12-2019 PULSE OXIMETRY, CONTINUOUS AMEER AKANKSHA Start: 06-12-2019 Radiologic exam chest single view AMBRY VALE Start: 06-12-2019 Gluc bld gluc mntr dev cleared fda spec home use AMEER AKANKSHA Start: 06-12-2019 NOTIFY PHYSICIAN (SPECIFY) AMBRY VALE Start: 06-12-2019 PLACE INTERMITTENT PNEUMATIC COMPRESSION DEVICE AMMARCELINOR AKANKSHA Start: 06-12-2019 FULL CODE RAÚL VALE Start: 06-12-2019 INITIATE OXYGEN THERAPY PROTOCOL RAÚL VALE Start: 06-12-2019 INTAKE AND OUTPUT RAÚL VALE Start: 06-12-2019 NURSING COMMUNICATION RAÚL VALE Start: 06-12-2019 PULSE OXIMETRY, CONTINUOUS RAÚL VALE Start: 06-12-2019 TELEMETRY MONITORING RAÚL VALE Start: 06-12-2019 VITAL SIGNS RAÚL VALE Start: 06-12-2019 Glucose blood reagent strip Raúl Vale Work Phone: Start: 06-12-2019 PATIENT STATUS (FROM ED OR OR/PROCEDURAL) RAÚL VALE Start: 06-12-2019 TELEMETRY MONITORING RAÚL VALE Start: 06-12-2019 Radiologic exam chest single view Clement Zuleta Work Phone: Start: 06-12-2019 Blood count hemoglobin RAÚL VALE Start: 06-12-2019 Chloride other source RAÚL VALE Start: 06-12-2019 CREATININE W/GFR POINT OF CARE RAÚL VALE Start: 06-12-2019 Gluc bld gluc mntr dev cleared fda spec home use RAÚL VALE Start: 06-12-2019 Potassium serum plasma/whole blood RAÚL VALE Start: 06-12-2019 Sodium serum plasma or whole blood RAÚL VALE Start: 06-12-2019 VERIFY INFORMED CONSENT RAÚL VALE Start: 06-12-2019 POC CHEMISTRY (NA,K,ICA,GLU,CALC HCT/HGB,LACTATE,CREA,CL) RAÚL VALE Start: 06-12-2019 Blood count hemoglobin Raúl Vale Work Phone: Start: 06-12-2019 Chloride [Moles/Vol] Raúl Vale Work Phone: Start: 06-12-2019 CREATININE W/GFR POINT OF CARE Raúl Vale Work Phone: Start: 06-12-2019 Gluc bld gluc mntr dev cleared fda spec home use Raúl Vale Work Phone: Start: 06-12-2019 Potassium [Moles/Vol] Raúl Vale Work Phone: Start: 06-12-2019 Sodium [Moles/Vol] Raúl Vale Work Phone: Start: 06-12-2019 R & l hrt cath w/njx l ventriculog img s&i RAÚL VALE Start: 01-17-2018 Radiologic examination knee 3 views FABIANO EWINGTEJALLeora Appendectomy Anabel Salinas Cardiac pacemaker, d evice (physical object) Anabel Orherich Cholecystectomy Anabel OrLIBCASTc h Colonoscopy Anabel Ormike Extraction of cataract Aurdanna Salinas History of coronary artery bypass grafting Hx of coronary artery bypass graft Rosemary Cartagena MD Work Phone: History of coronary artery bypass grafting Anabel Salinas History of coronary artery bypass grafting Hx of coronary artery bypass graft Rosemary Cartagena MD Work Phone: History of coronary artery bypass grafting Hx of coronary artery bypass graft Rosemary Cartagena MD Work Phone: Implantation of elec tronic stimulator into bladder Anabel Salinas Three dimensional ex ternal beam radiation therapy Anabel Salians Total knee replacement Auror georgi Salinas Transrectal needle b iopsy of prostate Anabel Salinas Plan of Treatment Date Care Activity Detail Author Start: 07-21-2031 DTaP/Tdap/Td Vaccines (2 - Tdap) DTaP/Tdap/Td Vaccines (2 - Tdap) [facility] Start: 07-21-2031 DTaP/Tdap/Td Vaccines (4 - Tdap) DTaP/Tdap/Td Vaccines (4 - Tdap) [facility] Start: 01-25-2025 End: 01-25-2025 Patient encounter procedure 01/25/2025 1:30 PM EDT Office Visit [facility] [address] [facility] [address] [place] [address] Rosemary Cartagena MD [address] [facility] [address] [place] [address] [facility] Start: 11-30-2024 End: 11-30-2024 Patient encounter procedure 11/30/2024 12:00 PM EDT [facility] [address] [place] [phone] Viky Rollins PA [address] [place] [address] [address] Start: 09-02-2024 Echocardiography [facility] Start: 08-24-2024 End: 08-24-2024 Patient encounter procedure 08/24/2024 3:00 PM EST [facility] [address] [facility] [address] [place] [phone] Viky Rollins PA [address] [place] [address] Arrived [facility] Comment on above: Arrived Start: 08-24-2024 End: 08-24-2025 Iron + transferrin + TIBC Iron + transferrin + TIBC Lab Routine Periodic limb movement disorder Expected: 08/24/2024 (Approximate), Expires: 08/24/2025 [facility] Work Phone: Comment on above: Expected: 08/24/2024 (Approximate), Expi res: 08/24/2025 Start: 07-27-2024 End: 07-27-2025 Basic metabolic 2000 panel - Serum or Plasma Basic Metabolic Panel Lab Routine 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 Expected: 07/27/2024 (Approximate), Expires: 07/27/2025 [facility] Service Area Work Phone: Comment on above: Expected: 07/27/2024 (Approximate), Expi res: 07/27/2025 Start: 07-27-2024 End: 07-27-2024 Patient encounter procedure 07/27/2024 2:00 PM EST Office Visit [facility] [address] [facility] [address] [place] [address] Rosemary Cartagena MD [address] [facility] [address] [place] [address] [facility] Start: 07-13-2024 End: 07-13-2024 Patient encounter procedure [address] Comment on above: Arrived Start: 06-13-2024 End: 06-13-2025 CT Cervical spine WO contrast CT cervical spine wo IV contrast Imaging Routine Hyperreflexia Balance problem Expected: 06/13/2024 (Approximate), Expires: 06/13/2025 [facility] Comment on above: Expected: 06/13/2024 (Approximate), Expi res: 06/13/2025 Start: 06-13-2024 End: 06-13-2025 CT Head WO contrast CT head wo IV contrast Imaging Routine Gait difficulty Balance problem Expected: 06/13/2024 (Approximate), Expires: 06/13/2025 [facility] Work Phone: Comment on above: Expected: 06/13/2024 (Approximate), Expi res: 06/13/2025 Start: 05-14-2024 COVID-19 Vaccine ( season) COVID-19 Vaccine ( season) [facility] Start: 05-14-2024 Influenza vaccination [facility] Start: 05-08-2024 End: 04-24-2025 Basic metabolic 2000 panel - Serum or Plasma Basic Metabolic Panel Lab Routine Congestive heart failure, NYHA class 3, chronic, systolic (Multi) Expected: 05/08/2024 (Approximate), Expires: 04/24/2025 [facility] Service Area Work Phone: Comment on above: Expected: 05/08/2024 (Approximate), Expi res: 04/24/2025 Start: 05-08-2024 End: 04-24-2025 Natriuretic peptide B [Mass/volume] in Blood B-Type Natriuretic Peptide Lab Routine Congestive heart failure, NYHA class 3, chronic, systolic (Multi) Expected: 05/08/2024 (Approximate), Expires: 04/24/2025 [facility] Work Phone: Comment on above: Expected: 05/08/2024 (Approximate), Expi res: 04/24/2025 Start: 02-28-2024 End: 02-28-2024 Patient encounter procedure 02/28/2024 1:45 PM EDT Office Visit [facility] [address] [place] [address] Rosemary Cartagena MD [address] [place] [address] [address] [place] [address] [facility] Start: 01-31-2024 End: 01-31-2024 Patient encounter procedure 01/31/2024 2:30 PM EDT Office Visit [place] [id number] [place] [address] [facility]a 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, 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 [address] [place] [address] [facility] Start: 12-29-2023 End: 12-29-2023 Patient encounter procedure 12/29/2023 1:30 PM EDT Office Visit [facility] [address] [place] [address] [facility]osea 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, 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 [address], [address] [place] [address] [facility] Start: 12-22-2023 End: 12-21-2024 Basic metabolic 2000 panel - Serum or Plasma Basic Metabolic Panel Lab Routine Ischemic cardiomyopathy Expected: 12/22/2023 (Approximate), Expires: 12/21/2024 [facility] Service Area Work Phone: Comment on above: Expected: 12/22/2023 (Approximate), Expi res: 12/21/2024 Start: 12-03-2023 [facility] Start: 11-24-2023 End: 11-24-2023 Patient encounter procedure 11/24/2023 2:00 PM EDT Office Visit [address] [place] [address] Sly Hosea K, 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 [address] [facility] [place] [address] [facility] Start: 11-08-2023 End: 10-25-2024 Basic metabolic 2000 panel - Serum or Plasma Basic Metabolic Panel Lab Routine Ischemic cardiomyopathy 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 Medication course changed Expected: 11/08/2023 (Approximate), Expires: 10/25/2024 [facility] Service Area Work Phone: Comment on above: Expected: 11/08/2023 (Approximate), Expi res: 10/25/2024 Start: 10-25-2023 End: 10-25-2023 Patient encounter procedure 10/25/2023 2:15 PM EST Office Visit [address] [place] [address] Rosemary Cartagena MD [address] [place] [address] [address] [place] [address] [facility] Start: 09-02-2023 End: 09-02-2023 Patient encounter procedure 09/02/2023 1:30 PM EST Appointment [address] [place] [address] [facility] Start: 08-30-2023 End: 08-30-2024 CBC panel - Blood by Automated count CBC Lab Routine [facility] 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 Expected: 08/30/2023 (Approximate), Expires: 08/30/2024 [facility] Work Phone: Comment on above: Expected: 08/30/2023 (Approximate), Expi res: 08/30/2024 Start: 08-30-2023 End: 08-30-2024 Comprehensive metabolic 2000 panel - Serum or Plasma Comprehensive Metabolic Panel Lab Routine Hx of coronary artery bypass graft Coronary artery disease, unspecified vessel or lesion type, unspecified whether angina present, unspecified whether chippewa-cree or transplanted heart Sleep apnea, unspecified type Expected: 08/30/2023 (Approximate), Expires: 08/30/2024 [facility] Service Area Work Phone: Comment on above: Expected: 08/30/2023 (Approximate), Expi res: 08/30/2024 Start: 08-30-2023 End: 08-30-2024 Hemoglobin A1c/Hemoglobin.total in Blood Hemoglobin A1C Lab Routine Shortness of breath History of stroke Benign prostatic hyperplasia with lower urinary tract symptoms, symptom details unspecified Ischemic cardiomyopathy Other specified diabetes mellitus with other specified complication, unspecified whether shelter insulin use (CMS/HCC) Expected: 08/30/2023 (Approximate), Expires: 08/30/2024 [facility] Work Phone: Comment on above: Expected: 08/30/2023 (Approximate), Expi res: 08/30/2024 Start: 08-30-2023 End: 08-30-2024 Lipid 1996 panel - Serum or Plasma Lipid Panel Lab Routine 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 Coronary artery disease, unspecified vessel or lesion type, unspecified whether angina present, unspecified whether chippewa-cree or transplanted heart Sleep apnea, unspecified type 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 Shortness of breath History of stroke Benign prostatic hyperplasia with lower urinary tract symptoms, symptom details unspecified Ischemic cardiomyopathy Expected: 08/30/2023 (Approximate), Expires: 08/30/2024 [facility] Work Phone: Comment on above: Expected: 08/30/2023 (Approximate), Expi res: 08/30/2024 Start: 08-30-2023 End: 08-30-2024 Natriuretic peptide B [Mass/volume] in Blood B-Type Natriuretic Peptide Lab Routine Abnormal EKG Hx of coronary artery bypass graft Coronary artery disease, unspecified vessel or lesion type, unspecified whether angina present, unspecified whether chippewa-cree or transplanted heart Permanent atrial fibrillation (CMS/HCC) Shortness of breath Ischemic cardiomyopathy Expected: 08/30/2023 (Approximate), Expires: 08/30/2024 [facility] Work Phone: Comment on above: Expected: 08/30/2023 (Approximate), Expi res: 08/30/2024 Start: 08-30-2023 End: 08-30-2024 Thyrotropin [Units/volume] in Serum or Plasma Thyroid Stimulating Hormone Lab Routine Shortness of breath History of stroke Benign prostatic hyperplasia with lower urinary tract symptoms, symptom details unspecified Ischemic cardiomyopathy Fatigue, unspecified type Expected: 08/30/2023 (Approximate), Expires: 08/30/2024 [facility] Work Phone: Comment on above: Expected: 08/30/2023 (Approximate), Expi res: 08/30/2024 Start: 08-30-2023 End: 08-30-2024 Triiodothyronine (T3) [Mass/volume] in Serum or Plasma Triiodothyronine, Total Lab Routine Shortness of breath History of stroke Benign prostatic hyperplasia with lower urinary tract symptoms, symptom details unspecified Ischemic cardiomyopathy Expected: 08/30/2023 (Approximate), Expires: 08/30/2024 [facility] Work Phone: Comment on above: Expected: 08/30/2023 (Approximate), Expi res: 08/30/2024 Start: 08-30-2023 End: 08-30-2025 Heart Transthoracic Transthoracic Echo (TTE) Complete Echocardiography Routine Abnormal EKG Sleep apnea, unspecified type Permanent atrial fibrillation (CMS/HCC) Shortness of breath Expected: 08/30/2023 (Approximate), Expires: 08/30/2025 [facility] Work Phone: Comment on above: Expected: 08/30/2023 (Approximate), Expi res: 08/30/2025 Start: 07-25-2023 Screening for osteoporosis Bone Density Scan [facility] Start: 05-14-2023 COVID-19 Vaccine () COVID-19 Vaccine () [facility] Start: 05-14-2023 COVID-19 Vaccine (4 - 2023-24 season) COVID-19 Vaccine ( season) [facility] Start: 05-14-2023 Influenza vaccination Influenza Vaccine (#1) [facility] Start: 01-02-2023 Glaucoma screening Diabetes: Retinopathy Screening [facility] Start: 07-25-2022 Screening for osteoporosis Bone Density Scan [facility] Start: 07-22-2021 DTaP/Tdap/Td Vaccines (1 - Tdap) DTaP/Tdap/Td Vaccines (1 - Tdap) [facility] Start: 06-12-2020 Creatinine monitoring Creatinine monitoring [place], [place] Start: 06-12-2020 Potassium monitoring Potassium monitoring [place], [place] Start: 05-14-2019 Influenza vaccination Flu vaccine (#1) [place] Start: 03-05-2019 Annual Wellness Visit (AWV) Annual Wellness Visit (AWV) [place] Start: 2017 RSV High Risk: (Elderly (60+) or Population) (1 - 1-dose 75+ series) RSV High Risk: (Elderly (60+) or Population) (1 - 1-dose 75+ series) [facility] Start: 12-19-2007 Pneumococcal 65+ years Vaccine (1 of 2 - PCV13) Pneumococcal 65+ years Vaccine (1 of 2 - PCV13) [place] Start: 2002 RSV patients and/or patients aged 60+ years (1 - 1-dose 60+ series) RSV patients and/or patients aged 60+ years (1 - 1-dose 60+ series) [facility] Start: 1992 Shingles Vaccine (1 of 2) Shingles Vaccine (1 of 2) [place], [place] Start: 1992 Zoster Vaccines (1 of 2) Zoster Vaccines (1 of 2) [facility] Start: 1961 DTaP/Tdap/Td vaccine (1 - Tdap) DTaP/Tdap/Td vaccine (1 - Tdap) [place] Start: 1961 Urine screening for protein Diabetes: Urine Protein Screening [facility] Start: 1952 Diabetic foot examination Diabetes: Foot Exam [facility] Start: 1948 Pneumococcal Vaccine: 65+ Years (1 - PCV) Pneumococcal Vaccine: 65+ Years (1 - PCV) [facility] Start: 1948 Pneumococcal Vaccine: 65+ Years (1 of 2 - PCV) Pneumococcal Vaccine: 65+ Years (1 of 2 - PCV) [facility] Start: 06-19-1943 COVID-19 Vaccine (#1) COVID-19 Vaccine (#1) [facility] Start: 1942 Creatinine measurement Creatinine Level [facility] Start: 1942 Hemoglobin A1c measurement Diabetes: Hemoglobin A1C [facility] Start: 1942 Lipid panel Lipid Panel [facility] Start: 1942 Medicare Annual Wellness Visit Medicare Annual Wellness Visit (AWV) [facility] Start: 1942 Potassium measurement Potassium Level [facility] End: 06-12-2019 Cardiac catheterization Cardiac Catheterization Cardiac Cath Routine One Time for 1 Occurrences starting 06/12/2019 until 06/12/2019 [facility] [place] Comment on above: One Time for 1 Occurrences starting 05/16 until 06/12/2019 Glucose measurement estimated from glycated hemoglobin [facility] Initiate Oxygen Ther apy Protocol Initiate Oxygen Therapy Protocol Respiratory Care Routine Daily until discontinued starting 06/12/2019 [facility] [place] Comment on above: Daily until discontinued starting [address] [facility] [place] Comment on above: 4X Daily (AC & HS) until discontinued st arting 06/12/2019 As Needed until disc ontinued starting 06/12/2019 Pulse oximetry, continuous Pulse oximetry, continuous Respiratory Care Routine Every 4hr until discontinued starting 06/12/2019 [employer] [facility] [place] Comment on above: Every 4hr until discontinued starting XR CHEST STANDARD (2 VW) XR CHES T STANDARD (2 VW) Imaging Routine 06/13/2019 10:36 AM EDT [facility] [place] Immunizations Immunization Date Immunization Notes Care Provider Fa cili 08-13-2023 influenza virus vaccine, unspecified formulation Rosemary Cartagena MD Work Phone: [facility] Work Phone: 07-21-2021 diphtheria, tetanus toxoids and acellular pertussis vaccine Osvaldo Raheem Other [employer] Other 07-21-2021 diphtheria, tetanus toxoids and acellular pertussis vaccine, unspecified formulation DO Shanique Anderson Work Phone: [facility] 06-13-2021 Flu Vaccine - Adult DO Redd Anderson Work Phone: [facility] 06-13-2021 influenza, seasonal, injectable DO Shanique Anderson Work Phone: [facility] 11-03-2020 COVID-19 mRNA, Comirnaty (Pfizer) DO Shanique nAderson Work Phone: [facility] 10-13-2020 COVID-19 mRNA, Comirnaty (Pfizer) DO Shanique Anderson Work Phone: [facility] 07-14-2011 influenza virus vaccine, unspecified formulation [facility] [place] Payers Date Payer Category Payer Unknown [id number] 2023 () [id number] 2022 [employer] ( and others) [id number] 2022 For Life (TFL) F OR LIFE [id number] 2018 Medicare MEDICARE MEDICAR E PART A AND B xxxxxxxxxxx 2018-Present [phone] [place] [address] xxxxxxxxxxx [id number] 2016 [employer] ( and others) FOR LIFE MEDICARE SUPP xxxxxxxxx 2016-Present C/O [employer]/ [address] [place] [address] xxxxxxxxx [id number] 2014 Medicare [id number] 2007 Medicare [id number] .[id number] 1959 [employer] ( and others) [id number] 1959 Medicare [id number] 1959 Self-pay [id number] 1942 Unknown [id number] 2.16.840.1.191153.3.579.2 .175 1942 Unknown [id number] 2.16.840.1.873696.3.579.2 .593 1942 Unknown [id number] 2.16.840.1.221310.3.579.2 .593 1942 Unknown [id number] 2.16.840.1.661896.3.579.2 .593 1942 Unknown [id number] 2.16.840.1.634006.3.579.2 .593 1942 Unknown [id number] 2.16.840.1.182803.3.579.2 .593 1942 Unknown [id number] 2.16.840.1.583061.3.579.2 .593 1942 Unknown [id number] 2.16.840.1.656407.3.579.2 .1246 1942 Unknown [id number] 2.16.840.1.252122.3.579.2 .727 1942 Unknown [id number] 2.16.840.1.515797.3.579.2 .727 1942 Unknown [id number] 2.16.840.1.037504.3.579.2 .727 1942 Unknown [id number] 2.16.840.1.736383.3.579.2 .727 1942 Unknown [id number] 2.16.840.1.980195.3.579.2 .727 1942 Unknown [id number] 2.16.840.1.717033.3.579.2 .1259 1942 Unknown [id number] 2.16.840.1.490742.3.579.2 .1259 1942 Unknown [id number] 2.16.840.1.031717.3.579.2 .1259 1942 Unknown [id number] 2.16.840.1.152983.3.579.2 .1259 1942 Unknown [id number] 2.16.840.1.589859.3.579.2 .1259 1942 Unknown [id number] 2.16.840.1.096470.3.579.2 .1244 1942 Unknown [id number] 2.16.840.1.413145.3.579.2 .1244 1942 Unknown [id number] 2.16.840.1.756401.3.579.2 .124 1942 Unknown [id number] 2.16.840.1.005688.3.579.2 .124 1942 Unknown [id number] 2.16.840.1.682472.3.579.2 .1244 1942 Unknown [id number] 2.16.840.1.500786.3.579.2 .1243 1942 Unknown [id number] 2.16.840.1.048239.3.579.2 .1244 Unknown [id number] 2.16.840.1.889259.3.579.2 .531 Unknown [id number] 2.16.840.1.744680.3.579.2 .531 Unknown [id number] 2.16.840.1.297242.3.579.2 .531 Unknown [id number] 2.16.840.1.180487.3.579.2 .531 Unknown [id number] 2.16.840.1.675934.3.579.2 .531 Unknown [id number] 2.16.840.1.721937.3.579.2 .531 Unknown [id number] 2.16.840.1.688238.3.579.2 .531 Unknown [id number] 2.16.840.1.706128.3.579.2 .531 Social History Date Type Detail Facility Start: 06-12-2019 End: 08-30-2023 Tobacco smoking status NHIS Former smoker [facility] Start: 09-13-1958 End: 09-13-2011 History of tobacco use Current smoker [place] Start: 09-13-1956 End: 09-13-2011 History of tobacco use Cigarette Smoker [place] Start: 06-12-2019 End: 08-24-2024 Cigarettes smoked current (pack per day) - Reported [place] Start: 06-12-2019 End: 08-24-2024 Alcohol intake No [facility] Start: 05-06-2015 Tobacco Comment quit x 5 year [facility] [place] Start: 1940 Sex Assigned At Not on file M [place], [place] Start: 1940 Sex Assigned At Male F [facility] Start: 08-30-2023 End: 01-24-2024 Tobacco use and exposure Smokeless tobacco non-user [facility] Work Phone: Start: 08-30-2023 End: 04-24-2024 Alcohol intake Current drinker of alcohol (finding) [facility] Work Phone: Start: 08-30-2023 Alcohol Comment 1 [facility] Work Phone: Start: 08-20-2023 End: 07-27-2024 Exposure to SARS-CoV-2 (event) Not sure [facility] Tobacco smoking status No Smokin g Status Entered [facility] Start: 01-24-2024 Tobacco smoking stat us COIS Never smoked tobacco [facility] Start: 02-23-2024 End: 08-24-2024 Alcoholic beverage intake Lifetime non-drinker (finding) [facility] Medical Equipment Procedure Code Equipment Code Equipment Origin al Text Equipment Identifier Dates Cement Barium Radiopq Full 40gr [id number] Start: 12-02-2017 Cement Barium Radiopq Full 40gr [id number] Start: 12-02-2017 Impl Knee X3 Patella [id number] Star t: 12-02-2017 Impl Capped Knee Advanced _imp Start: 12-02-2017 Impl Knee Fem Co mp Cmntd Sz 6 _imp Start: 12-02-2017 Impl Knee Patell a Asym X3 [id number] Start: 12-02-2017 Impl Knee Tib Baseplt Prime Sz 6 _imp Start: 12-02-2017 Impl Knee Tib In srt Postr X3 Sz6 11mm [id number] Start: 12-02-2017 Stimulator Neuro Pulse [id number] Start: 04-27-2017 Pacemaker 10196_exp Pacemaker 10196_imp Lt Knee 10197_exp Lt Knee 10197_imp Goals Date Patient Goal Desired Activity /State Functional Status Date Assessment Result Facility 07-25-2024 Functional Status N/A [facility] 06-15-2024 Functional Status N/A [facility] 04-25-2024 Functional Status N/A [facility] Clinical Notes 06-16-2021 to 07-27-2024 Rosemary Cartagena MD - 07/27/2024 2:00 PM ESTPatient Instructions Note Date & Type Note Facility 07-27-2024 History of Present illness Narrative Images from the original note were not included. This is a follow-up from April 2024. At that time we uptitrated Entresto to 24/20 6 in the morning and 49/50 1 in the evening. Blood work was ordered. Patient is accompanied by and grandson. Grandson is an ER nurse in [place]. Both and grandson report significant deterioration in overall health. Patient has been losing weight, and his Parkinson's symptoms have been worsening. He has had multiple falls. No major injury. Subjective : Denies chest pressure tightness heaviness palpitations lightheadedness or bleeding Misunderstood my recommendations for up titration of Entresto, currently taking 1 dose of 49/50 1 in the evening. says that this dose is working great. History so Far : 1. Chronic systolic left heart failure, secondary to ischemic cardiomyopathy, LVEF 30% echo March 2019 2. Moderate mitral regurgitation with biatrial enlargement 3. Sick sinus syndrome dual-chamber pacemaker, revised to Medtronic Evera XT DR ICD May 2019, with a new 6935 [...] Insulin requiring diabetes 14. Short-term memory impairment 15. Echocardiogram August 2023-LVEF 35 to 40% severely hypokinetic septum severe inferior wall hypokinesis markedly dilated left atrium pacer wire seen in the right ventricle, no aortic stenosis mild aortic regurgitation, moderate mitral regurgitation, mild to moderate tricuspid regurgitation, RVSP 41 mmHg, no pericardial effusion, left atrial diameter of 5.7 cm, LV end-systolic diameter 4 cm Objective Wt Readings from Last 3 Encounters: 07/27/24 80.7 kg (178 lb) 04/24/24 84.2 kg (185 lb 9.6 oz) 01/31/24 87.5 kg (193 lb) Vitals: 07/27/24 1430 07/27/24 1508 BP: 118/62 112/58 BP Location: Right arm Right arm Patient Position: Sitting Standing Pulse: 62 Weight: 80.7 kg (178 lb) Height: 1.676 m (5' 6 ) Physical Exam: Not orthostatic. Examined in the wheelchair. GENERAL APPEARANCE: in no acute distress. CHEST: Symmetric and non-tender. INTEGUMENT: Skin warm and dry HEENT: No gross abnormalities identified.No pallor or scleral icterus. NECK: Supple, no JVD, no bruit. NEURO/PSHCY: Alert and oriented x3 very quiet, but answers questions with appropriate answers LUNGS: Clear to auscultation bilaterally; normal respiratory effort. HEART: Rate and rhythm regular with no evident murmur; no gallop appreciated. ABDOMEN: Soft, non tender. MUSCULOSKELETAL: No gross deformities. EXTREMITIES: Warm There is no edema noted. Meds: Current Outpatient Medications Medication Instructions busPIRone (BUSPAR) 5 mg, 2 times daily CALCIUM CARBONATE-VITAMIN D3 ORAL 1 capsule, 2 times daily carbidopa-levodopa (Sinemet) 10-100 mg tablet 1 tablet, 3 times daily carboxymethylcellulose (Refresh Tears) 0.5 % ophthalmic solution 1 drop, As needed carvedilol (COREG) 3.125 mg, oral, 2 times daily (morning and late afternoon) cholecalciferol (Vitamin D-3) 5,000 Units tablet 1 tablet, Daily clopidogrel (PLAVIX) 75 mg, oral, Daily Creon 36,000-114,000- 180,000 unit capsule,delayed release(DR/EC) capsule 2 capsules, 3 times daily (morning, midday, late afternoon) DAILY MULTI-VITAMIN ORAL 1 capsule, Daily diazePAM (Valium) 2 mg tablet 1 tablet, Every 6 hours PRN digoxin (LANOXIN) 125 mcg, oral, Daily Eliquis 5 mg, oral, 2 times daily famotidine (PEPCID) 20 mg, Nightly FERROUS SULFATE ORAL 325 mg, Daily furosemide (LASIX) 20 mg, oral, Daily insulin glargine (LANTUS) 16 Units, Daily RT loperamide (IMODIUM) 2 mg, Daily magnesium oxide (MAG-OX) 420 mg, Daily memantine (NAMENDA) 28 mg, Daily nitroglycerin (NITROSTAT) 0.4 mg, sublingual, Every 5 min PRN PARoxetine (PAXIL) 20 mg, Every morning perphenazine 2 mg, Nightly potassium chloride CR (Klor-Con) 10 mEq ER tablet 10 mEq, oral, Daily, Do not crush, chew, or split. rivastigmine (Exelon) 13.3 mg/24 hour 1 patch, Daily rosuvastatin (CRESTOR) 5 mg, oral, Daily sacubitriL-valsartan (Entresto) 24-26 mg tablet 1 tablet, oral, Daily, Take the 49/51mg tablet in the evening tamsulosin (Flomax) 0.4 mg 24 hr capsule 1 capsule, Daily traZODone (DESYREL) 50 mg, Nightly Allergies Allergen Reactions Fish Oil Diarrhea Byetta [Exenatide] Unknown Codeine Unknown Demerol [Meperidine] Unknown Invokana [Canagliflozin] Unknown Victoza 2-Cruz [Liraglutide] Unknown LABS: BNP level 252 April 2024, 3 27 November 2019 24-20 21 August 2023 BUN 38 creatinine 1.75 GFR 39 sodium 143 potassium 4.7 TSH normal 3.7 14 November 2023 GFR was 42 in February 2024 58 in November 2023 Patient Active Problem List Diagnosis Date Noted Weight loss 07/27/2024 Falls frequently 07/27/2024 Former smoker 04/24/2024 Stage 3b chronic kidney disease (Multi) 04/24/2024 Nonrheumatic mitral valve regurgitation 04/24/2024 Nonrheumatic aortic valve insufficiency 04/24/2024 Body mass index (BMI) 28.0-28.9, adult 12/06/2023 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 10/25/2023 Bipolar disorder, current episode manic severe with psychotic features (Multi) 10/25/2023 Sacroiliitis, not elsewhere classified ([facility]) 10/25/2023 Idiopathic chronic pancreatitis (Multi) 10/25/2023 Dementia in other diseases classified elsewhere, unspecified severity, without behavioral disturbance, psychotic disturbance, mood disturbance, and anxiety (Multi) 10/25/2023 Major depressive disorder, recurrent, moderate 10/25/2023 Acute embolism and thrombosis of right peroneal vein (Multi) 10/25/2023 Prostate CA (Multi) 10/25/2023 Congestive heart failure, NYHA class 3, chronic, systolic 10/25/2023 ICD (implantable cardioverter-defibrillator) in place 08/30/2023 Abnormal EKG 08/30/2023 Hx of coronary artery bypass graft 08/30/2023 Coronary artery disease involving chippewa-cree coronary artery of chippewa-cree heart without angina pectoris 08/30/2023 Obstructive sleep apnea syndrome 08/30/2023 Permanent atrial fibrillation (Multi) 08/30/2023 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 Congestive heart failure, NYHA class 3, chronic, systolic Follow Up In Cardiology sacubitriL-valsartan (Entresto) 24-26 mg tablet Follow Up In Cardiology 2. 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 Basic Metabolic Panel Basic Metabolic Panel 3. Hx of coronary artery bypass graft 4. ICD (implantable cardioverter-defibrillator) in place Referral to Cardiac Electrophysiology 5. Ischemic cardiomyopathy sacubitriL-valsartan (Entresto) 24-26 mg tablet 6. 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 Former smoker 8. Body mass index (BMI) 28.0-28.9, adult 9. Permanent atrial fibrillation (Multi) ECG 12 Lead 10. Parkinson's disease, unspecified whether dyskinesia present, unspecified whether manifestations fluctuate Referral to Cardiac Electrophysiology 11. Falls frequently Referral to Cardiac Electrophysiology Clinical decision making: Patient with high [id number] score and high Hasbled score. Permanent atrial fibrillation On anticoagulation with Eliquis, based on recent creatinine dose will be decreased to 2.5 mg p.o. twice daily Although patient has Parkinson's disease which limits his mobility, he is awake and alert, and participates in day-to-day activities. Discussed Watchman device, they would like to proceed. Referral initiated to Dr. Pickering I think the risk-benefit of digoxin in this 83-year-old with CKD that fluctuates between stage IIIa and B, is unfavorable, we will discontinue the digoxin Will recommend that patient change Entresto to twice daily regimen of Reviewed home blood pressure log, they are all sitting blood pressures, and they range from 114 systolic to 171 systolic. Diastolics are mostly in the 60s Follow up : 6 months Shared Decision Tool - Referral for Left Atrial Appendage Occlusion My patient Yoana Ibrahim 1940 has been evaluated by me and is referred to [facility] for a left atrial appendage implant due thromboembolic stroke risk from atrial fibrillation with CHADS2 score >= 2 or a [id number] score >= 3. This patient is not a good candidate for shelter anticoagulation for the following reason(s): This patient however should be able to tolerate short term anticoagulation as necessary for LAAO device implant. My Patient and I, the referring physician, have reviewed the following: Yes Atrial Fibrillation increases the risk of stroke. Yes Anticoagulants or blood thinners help reduce the risk of stroke for most people. Yes Blood thinners may cause minor or serious bleeding issues. Yes Blood thinners include the medications aspirin, warfarin, and NOAC (dabigatran, edoxaban, rivaroxaban, apixaban...), each with unique risk and safety profiles. Yes We reviewed his/her anticoagulation history and previous experiences. Yes We discussed lack of other alternative treatments available to prevent stroke risk. Yes We discussed the LAAO device implant vs taking anticoagulation to reduce stroke risk. Yes We referred the patient to a LAAO outpatient clinic for further explanation and consideration. Yes The LAAO device has been adequately explained along with the risks and benefits of treatment. Alternative treatment has been discussed with all questions answered. After discussion of the above considerations, it has been decided to be evaluated for the LAAO therapies. Reviewed and approved by ROSEMARY CARTAGENA on 07/27/24 at 6:36 PM. Provider Attestation - Heaven ROSARIO Scribe documentation All medical record entries made by the Scribe were at my direction and personally dictated by me. I have reviewed the chart and agree that the record accurately reflects my personal performance of the history, physical exam, discussion and plan. documented in this encounter [facility] Work Phone: 07-27-2024 Instructions Heaven Shah LPN - 07/27/2024 2:00 PM EST Please bring all medicines, vitamins, and herbal supplements with you when you come to the office. Prescriptions will not be filled unless you are compliant with your follow up appointments or have a follow up appointment scheduled as per instruction of your physician. Refills should be requested at the time of your visit. Fall Prevention Education Given Pacemaker/Defibrillator follow up per routine BMI was above normal measurement. Current weight: 80.7 kg (178 lb) Weight change since last visit (-) denotes wt loss -7.6 lbs Weight loss needed to achieve BMI 25: 23.4 Lbs Weight loss needed to achieve BMI 30: -7.5 Lbs Provided instructions on dietary changes Provided instructions on exercise. documented in this encounter [facility] Work Phone: 07-25-2024 Hospital Discharge instructions Patient Education 07/25/2024 14:17:39 Urinary Incontinence Urinary Incontinence Urinary incontinence refers to a condition in which a person is unable to control where and when to pass urine. A person with this condition will urinate involuntarily. This means that the person urinates when he or she does not mean to. What are the causes? This condition may be caused by: Medicines. Infections. Constipation. Overactive bladder muscles. Weak bladder muscles. Weak pelvic floor muscles. These muscles provide support for the bladder, intestine, and, in women, the uterus. Enlarged prostate in men. The prostate is a gland near the bladder. When it gets too big, it can pinch the urethra. With the urethra blocked, the bladder can weaken and lose the ability to empty properly. Surgery. Emotional factors, such as anxiety, stress, or post-traumatic stress disorder (PTSD). Spinal cord injury, nerve injury, or other neurological conditions. Pelvic organ prolapse. This happens in women when organs move out of place and into the vagina. This movement can prevent the bladder and urethra from working properly. What increases the risk? The following factors may make you more likely to develop this condition: Age. The older you are, the higher the risk. Obesity. Being physically inactive. and childbirth. Menopause. Diseases that affect the nerves or spinal cord. Long-term, or chronic, coughing. This can increase pressure on the bladder and pelvic floor muscles. What are the signs or symptoms? Symptoms may vary depending on the type of urinary incontinence you have. They include: A sudden urge to urinate, and passing urine involuntarily before you can get to a bathroom (urge incontinence). Suddenly passing urine when doing activities that force urine to pass, such as coughing, laughing, exercising, or sneezing (stress incontinence). Needing to urinate often but urinating only a small amount, or constantly dribbling urine (overflow incontinence). Urinating because you cannot get to the bathroom in time due to a physical disability, such as arthritis or injury, or due to a communication or thinking problem, such as Alzheimer's disease (functional incontinence). How is this diagnosed? This condition may be diagnosed based on: Your medical history. A physical exam. Tests, such as: ?Urine tests. ?X-rays of your kidney and bladder. ?Ultrasound. ?CT scan. ?Cystoscopy. In this procedure, a health care provider inserts a tube with a light and camera (cystoscope) through the urethra and into the bladder to check for problems. ?Urodynamic testing. These tests assess how well the bladder, urethra, and sphincter can store and release urine. There are different types of urodynamic tests, and they vary depending on what the test is measuring. To help diagnose your condition, your health care provider may recommend that you keep a log of when you urinate and how much you urinate. How is this treated? Treatment for this condition depends on the type of incontinence that you have and its cause. Treatment may include: Lifestyle changes, such as: ?Quitting smoking. ?Maintaining a healthy weight. ?Staying active. Try to get 150 minutes of moderate-intensity exercise every week. Ask your health care provider which activities are safe for you. ?Eating a healthy diet. ?Avoid high-fat foods, like fried foods. ?Avoid refined carbohydrates like white bread and white rice. ?Limit how much alcohol and caffeine you drink. ?Increase your fiber intake. Healthy sources of fiber include beans, whole grains, and fresh fruits and vegetables. Behavioral changes, such as: ?Pelvic floor muscle exercises. ?Bladder training, such as lengthening the amount of time between bathroom breaks, or using the bathroom at regular intervals. ?Using techniques to suppress bladder urges. This can include distraction techniques or controlled breathing exercises. Medicines, such as: ?Medicines to relax the bladder muscles and prevent bladder spasms. ?Medicines to help slow or prevent the growth of a man's prostate. ?Botox injections. These can help relax the bladder muscles. Treatments, such as: ?Using pulses of electricity to help change bladder reflexes (electrical nerve stimulation). ?For women, using a medical representative to prevent urine leaks. This is a small, tampon-like, disposable device that is inserted into the urethra. ?Injecting collagen or carbon beads (bulking agents) into the urinary sphincter. These can help thicken tissue and close the bladder opening. ?Surgery. Follow these instructions at home: Lifestyle Limit alcohol and caffeine. These can fill your bladder quickly and irritate it. Keep yourself clean to help prevent odors and skin damage. Ask your health care provider about special skin creams and cleansers that can protect the skin from urine. Consider wearing pads or adult diapers. Make sure to change them regularly, and always change them right after experiencing incontinence. General instructions Take wcqx-pab-eaievcy and prescription medicines only as told by your health care provider. Use the bathroom about every 3 4 hours, even if you do not feel the need to urinate. Try to empty your bladder completely every time. After urinating, wait a minute. Then try to urinate again. Make sure you are in a relaxed position while urinating. If your incontinence is caused by nerve problems, keep a log of the medicines you take and the times you go to the bathroom. Keep all follow-up visits. This is important. Where to find more information [employer] [place] [employer]estive [employer] Kidney Diseases: www.niddk.nih.gov [employer]: www.urologyhealth.org Contact a health care provider if: You have pain that gets worse. Your incontinence gets worse. Get help right away if: You have a fever or chills. You are unable to urinate. You have redness in your groin area or down your legs. Summary Urinary incontinence refers to a condition in which a person is unable to control where and when to pass urine. This condition may be caused by medicines, infection, weak bladder muscles, weak pelvic floor muscles, enlargement of the prostate (in men), or surgery. Factors such as older age, obesity, and childbirth, menopause, neurological diseases, and chronic coughing may increase your risk for developing this condition. Types of urinary incontinence include urge incontinence, stress incontinence, overflow incontinence, and functional incontinence. This condition is usually treated first with lifestyle and behavioral changes, such as quitting smoking, eating a healthier diet, and doing regular pelvic floor exercises. Other treatment options include medicines, bulking agents, medical devices, electrical nerve stimulation, or surgery. This information is not intended to replace advice given to you by your health care provider. Make sure you discuss any questions you have with your health care provider. Document Revised: 04/04/2021 Document Reviewed: 04/04/2021 [employer] Patient Education 2023 [place]. 07/25/2024 14:17:38 Benign Prostatic Hyperplasia Benign Prostatic Hyperplasia Benign prostatic hyperplasia (BPH) is an enlarged prostate gland that is caused by the normal aging process. The prostate may get bigger as a man gets older. The condition is not caused by cancer. The prostate is a walnut-sized gland that is involved in the production of semen. It is located in front of the rectum and below the bladder. The bladder stores urine. The urethra carries stored urine out of the body. An enlarged prostate can press on the urethra. This can make it harder to pass urine. The buildup of urine in the bladder can cause infection. Back pressure and infection may progress to bladder damage and kidney (renal) failure. What are the causes? This condition is part of the normal aging process. However, not all men develop problems from this condition. If the prostate enlarges away from the urethra, urine flow will not be blocked. If it enlarges toward the urethra and compresses it, there will be problems passing urine. What increases the risk? This condition is more likely to develop in men older than 50 years. What are the signs or symptoms? Symptoms of this condition include: Getting up often during the night to urinate. Needing to urinate frequently during the day. Difficulty starting urine flow. Decrease in size and strength of your urine stream. Leaking (dribbling) after urinating. Inability to pass urine. This needs immediate treatment. Inability to completely empty your bladder. Pain when you pass urine. This is more common if there is also an infection. Urinary tract infection (UTI). How is this diagnosed? This condition is diagnosed based on your medical history, a physical exam, and your symptoms. Tests will also be done, such as: A post-void bladder scan. This measures any amount of urine that may remain in your bladder after you finish urinating. A digital rectal exam. In a rectal exam, your health care provider checks your prostate by putting a lubricated, gloved finger into your rectum to feel the back of your prostate gland. This exam detects the size of your gland and any abnormal lumps or growths. An exam of your urine (urinalysis). A prostate specific antigen (PSA) screening. This is a blood test used to screen for prostate cancer. An ultrasound. This test uses sound waves to electronically produce a picture of your prostate gland. Your health care provider may refer you to a specialist in kidney and prostate diseases (urologist). How is this treated? Once symptoms begin, your health care provider will monitor your condition (active surveillance or watchful waiting). Treatment for this condition will depend on the severity of your condition. Treatment may include: Observation and yearly exams. This may be the only treatment needed if your condition and symptoms are mild. Medicines to relieve your symptoms, including: ?Medicines to shrink the prostate. ?Medicines to relax the muscle of the prostate. Surgery in severe cases. Surgery may include: ?Prostatectomy. In this procedure, the prostate tissue is removed completely through an open incision or with a laparoscope or robotics. ?Transurethral resection of the prostate (TURP). In this procedure, a tool is inserted through the opening at the tip of the penis (urethra). It is used to cut away tissue of the inner core of the prostate. The pieces are removed through the same opening of the penis. This removes the blockage. ?Transurethral incision (TUIP). In this procedure, small cuts are made in the prostate. This lessens the prostate's pressure on the urethra. ?Transurethral microwave thermotherapy (TUMT). This procedure uses microwaves to create heat. The heat destroys and removes a small amount of prostate tissue. ?Transurethral needle ablation (TUNA). This procedure uses radio frequencies to destroy and remove a small amount of prostate tissue. ?Interstitial laser coagulation (ILC). This procedure uses a laser to destroy and remove a small amount of prostate tissue. ?Transurethral electrovaporization (TUVP). This procedure uses electrodes to destroy and remove a small amount of prostate tissue. ?Prostatic urethral lift. This procedure inserts an implant to push the lobes of the prostate away from the urethra. Follow these instructions at home: Take knmh-pxl-kfxzmkl and prescription medicines only as told by your health care provider. Monitor your symptoms for any changes. Contact your health care provider with any changes. Avoid drinking large amounts of liquid before going to bed or out in public. Avoid or reduce how much caffeine or alcohol you drink. Give yourself time when you urinate. Keep all follow-up visits. This is important. Contact a health care provider if: You have unexplained back pain. Your symptoms do not get better with treatment. You develop side effects from the medicine you are taking. Your urine becomes very dark or has a bad smell. Your lower abdomen becomes distended and you have trouble passing urine. Get help right away if: You have a fever or chills. You suddenly cannot urinate. You feel light-headed or very dizzy, or you faint. There are large amounts of blood or clots in your urine. Your urinary problems become hard to manage. You develop moderate to severe low back or flank pain. The flank is the side of your body between the ribs and the hip. These symptoms may be an emergency. Get help right away. Call 911. Do not wait to see if the symptoms will go away. Do not drive yourself to the hospital. Summary Benign prostatic hyperplasia (BPH) is an enlarged prostate that is caused by the normal aging process. It is not caused by cancer. An enlarged prostate can press on the urethra. This can make it hard to pass urine. This condition is more likely to develop in men older than 50 years. Get help right away if you suddenly cannot urinate. This information is not intended to replace advice given to you by your health care provider. Make sure you discuss any questions you have with your health care provider. Document Revised: 03/18/2022 Document Reviewed: 03/18/2022 [employer] Patient Education 2023 [place]. 07/25/2024 14:17:37 Paraphimosis Paraphimosis Paraphimosis is a serious condition that happens when the fold of skin that stretches over the tip of the penis (foreskin) becomes stuck when it is pulled back. This condition blocks blood from flowing away from the penis tip, and that causes swelling that gets worse and worse. Paraphimosis needs to be treated right away. What are the causes? This condition may be caused by: Leaving the foreskin pulled back after a procedure, such as after the placement of a catheter. A foreskin that is tighter than normal. A foreskin that has been pulled back for too long. A forceful pulling back of the foreskin. Infection under the foreskin. Trauma to the area, such as a hard hit to the tip of the penis. Having sex or masturbating. Hair or clothing that gets wrapped around the penis. What increases the risk? You are more likely to develop this condition if: You have not had all of your foreskin removed. You have had frequent procedures or surgeries on your urinary or reproductive organs. You have poor hygiene. You need help with daily hygiene from a caregiver. What are the signs or symptoms? Symptoms of this condition include: A foreskin that cannot be returned to its normal position. Pain, often at the tip of the penis. Swelling of the penis. Trouble urinating. Skin that is red or bluish at the tip of the penis. How is this diagnosed? This condition may be diagnosed based on your symptoms and a physical exam. How is this treated? This condition may be treated with: A procedure in which your health care provider manually moves the foreskin back into position over the tip of the penis. Swelling may first be reduced by: ?Applying ice to the area. ?Wrapping a bandage tightly around the penis. ?Using needles to drain any fluid, pus, or blood that is causing the swelling. ?Applying a gauze soaked with medicines or solutions. ?Applying granulated sugar to the area. ?Injecting medicine into the foreskin to reduce swelling. Medicine to relieve pain. Medicine may be given by mouth, through an IV, or by an injection to the base of the penis (nerve block). A procedure in which a small incision is made in the tightened foreskin to free it and allow it to be pulled back into place (dorsal slit procedure). Surgery to remove the foreskin (circumcision). This may be done if the foreskin cannot be moved back into place. Most of the time, treatment can be done in a clinic or a health care provider's office. Follow these instructions at home: Lifestyle Follow instructions from your health care provider about avoiding sexual activity. Wear loose undergarments to avoid applying pressure to the area. General instructions Take mbmk-ygm-toercjo and prescription medicines only as told by your health care provider. Apply any creams to the affected area only as told by your health care provider. Follow instructions from your health care provider about how to take care of your wound. Make sure you: ?Wash your hands with soap and water for at least 20 seconds before and after you change your bandage (dressing) if you were given one. If soap and water are not available, use hand residential lawn specialist. ?Ask when you should remove your dressing. ?Ask whether the area can get wet. Do not retract the foreskin for 1 week or as told by your health care provider. Keep all follow-up visits. This is important. Contact a health care provider if: The treated area of skin does not heal or it becomes more irritated, red, or bloody. Urination is difficult or painful. Pain in the penis continues, even after you take medicine for pain. You develop a fever. Get help right away if: The skin at the tip of the penis is red or bluish. You have severe pain. Summary Paraphimosis is a serious condition that happens when the fold of skin that stretches over the tip of the penis (foreskin) becomes stuck when it is pulled back. Paraphimosis needs to be treated right away. Take rhkb-tcy-qihpyyo and prescription medicines only as told by your health care provider. Apply any creams to the affected area only as told by your health care provider. Contact a health care provider if urination is difficult or painful, or if pain in the penis continues even after you take medicine for pain. Keep all follow-up visits. This is important. This information is not intended to replace advice given to you by your health care provider. Make sure you discuss any questions you have with your health care provider. Document Revised: 08/13/2022 Document Reviewed: 08/13/2022 [employer] Patient Education 2023 [place]. Follow Up Care 06/15/2024 10:57:21 With:CINTHYA SANCHEZ, Petr Richard, URL Address: [facility] [employer] [place] [id number]- When: Unknown Comments:2 mos w/ SARAH [facility] 07-25-2024 Note Patient Education Urology Urinary Incontinence Urinary incontinence refers to a condition in which a person is unable to control where and when to pass urine. A person with this condition will urinate involuntarily. This means that the person urinates when he or she does not mean to. What are the causes? This condition may be caused by: ??? Medicines. ??? Infections. ??? Constipation. ??? Overactive bladder muscles. ??? Weak bladder muscles. ??? Weak pelvic floor muscles. These muscles provide support for the bladder, intestine, and, in women, the uterus. ??? Enlarged prostate in men. The prostate is a gland near the bladder. When it gets too big, it can pinch the urethra. With the urethra blocked, the bladder can weaken and lose the ability to empty properly. ??? Surgery. ??? Emotional factors, such as anxiety, stress, or post-traumatic stress disorder (PTSD). ??? Spinal cord injury, nerve injury, or other neurological conditions. ??? Pelvic organ prolapse. This happens in women when organs move out of place and into the vagina. This movement can prevent the bladder and urethra from working properly. What increases the risk? The following factors may make you more likely to develop this condition: ??? Age. The older you are, the higher the risk. ??? Obesity. ??? Being physically inactive. ??? and childbirth. ??? Menopause. ??? Diseases that affect the nerves or spinal cord. ??? Long-term, or chronic, coughing. This can increase pressure on the bladder and pelvic floor muscles. What are the signs or symptoms? Symptoms may vary depending on the type of urinary incontinence you have. They include: ??? A sudden urge to urinate, and passing urine involuntarily before you can get to a bathroom (urge incontinence). ??? Suddenly passing urine when doing activities that force urine to pass, such as coughing, laughing, exercising, or sneezing (stress incontinence). ??? Needing to urinate often but urinating only a small amount, or constantly dribbling urine (overflow incontinence). ??? Urinating because you cannot get to the bathroom in time due to a physical disability, such as arthritis or injury, or due to a communication or thinking problem, such as Alzheimer's disease (functional incontinence). How is this diagnosed? This condition may be diagnosed based on: ??? Your medical history. ??? A physical exam. ??? Tests, such as: ? Urine tests. ? X-rays of your kidney and bladder. ? Ultrasound. ? CT scan. ? Cystoscopy. In this procedure, a health care provider inserts a tube with a light and camera (cystoscope) through the urethra and into the bladder to check for problems. ? Urodynamic testing. These tests assess how well the bladder, urethra, and sphincter can store and release urine. There are different types of urodynamic tests, and they vary depending on what the test is measuring. To help diagnose your condition, your health care provider may recommend that you keep a log of when you urinate and how much you urinate. How is this treated? Treatment for this condition depends on the type of incontinence that you have and its cause. Treatment may include: ??? Lifestyle changes, such as: ? Quitting smoking. ? Maintaining a healthy weight. ? Staying active. Try to get 150 minutes of moderate-intensity exercise every week. Ask your health care provider which activities are safe for you. ? Eating a healthy diet. ? Avoid high-fat foods, like fried foods. ? Avoid refined carbohydrates like white bread and white rice. ? Limit how much alcohol and caffeine you drink. ? Increase your fiber intake. Healthy sources of fiber include beans, whole grains, and fresh fruits and vegetables. ??? Behavioral changes, such as: ? Pelvic floor muscle exercises. ? Bladder training, such as lengthening the amount of time between bathroom breaks, or using the bathroom at regular intervals. ? Using techniques to suppress bladder urges. This can include distraction techniques or controlled breathing exercises. ??? Medicines, such as: ? Medicines to relax the bladder muscles and prevent bladder spasms. ? Medicines to help slow or prevent the growth of a man's prostate. ? Botox injections. These can help relax the bladder muscles. ??? Treatments, such as: ? Using pulses of electricity to help change bladder reflexes (electrical nerve stimulation). ? For women, using a medical representative to prevent urine leaks. This is a small, tampon-like, disposable device that is inserted into the urethra. ? Injecting collagen or carbon beads (bulking agents) into the urinary sphincter. These can help thicken tissue and close the bladder opening. ? Surgery. Follow these instructions at home: Lifestyle ??? Limit alcohol and caffeine. These can fill your bladder quickly and irritate it. ??? Keep yourself clean to help prevent odors and skin damage. Ask your health care provider (more content not included)... [facility] Progress Note-Physic familia Patient: YOANA IBRAHIM Age: 83 years Sex: Male : 1940 Associated Diagnoses: None Author: CINTHYA SANCHEZ, Petr Richard Subjective ROS & PFSH Reviewed I have reviewed the ROS and PFSH from the procedural information filed today with no changes (or with the following changes).. Health Status Allergies: Allergic Reactions (Selected) Severity Not Documented Hermila- Unknown. Byetta Prefilled Pen- Unknown. Codeine- Unknown. Demerol- Edema of bilateral upper limbs. Invokana- Unknown. Victoza- Unknown., Allergies (6) Active Severity Reaction Victoza Unknown Invokana Unknown Byetta Prefilled Pen Unknown Demerol Edema of bilateral upper limbs Hermila Unknown codeine Unknown Current medications: (Selected) Prescriptions Prescribed Cipro 500 mg Tab: See Instructions, Take 1 tab day prior to procedure and 1 tab day of procdure - afterwards, # 2 tab(s), Refills(s) 0, Pharmacy: [facility]/pharmacy #[id number], 167, cm, 04/25/24 13:59:00 EDT, Height/Length Dosing, 72, kg, 04/25/24 13:59:00 EDT, Weight Dosing Myrbetriq 50 mg oral tablet, extended release: 50 mg = 1 tab(s), Oral, Daily, # 30 tab(s), Refills(s) 11, Pharmacy: [facility]/pharmacy #[id number], 167, cm, 06/15/24 10:14:00 EDT, Height/Length Dosing, 72, kg, 06/15/24 10:14:00 EDT, Weight Dosing Documented Medications Documented Alpha Lipoic Acid: = 2 tab(s), Oral, Daily, Refills(s) 0 Creon 12,000 units oral delayed release capsule: = 1 cap(s), Oral, TID, Refills(s) 0 Icosapent Ethyl 1 g oral capsule: 4 gm = 4 cap(s), Oral, BID, Refills(s) 0 Multivitamins and Minerals: Daily, Refill(s) 0 Potassium Chloride (Hgm-Psct-Hul 10) 10 mEq oral tablet, extended release: 10 mEq = 1 tab(s), Oral, Daily, Refills(s) 0 apixaban 5 mg oral tablet: 5 mg = 1 tab(s), Oral, BID, Refills(s) 0 calcium (as carbonate)-vitamin D 500 mg-200 intl units oral tablet: 1 tab(s), Oral, BID, Refill(s) 0 carbidopa-levodopa 10 mg-100 mg oral tablet, disintegratin tab(s), Oral, Refill(s) 0 carvedilol 3.125 mg Tab: 3.125 mg = 1 tab(s), Oral, BID, Refills(s) 0 cholecalciferol: 25 mcg, Chewed, Daily, Refills(s) 0 clopidogrel 75 mg Tab: 75 mg = 1 tab(s), Oral, Daily, Refills(s) 0 diazepam 2 mg Tab: 1 mg = 0.5 tab(s), Oral, Bedtime, Refills(s) 0 famotidine 20 mg Tab: 20 mg = 1 tab(s), Oral, BID, # 180 tab(s), Refills(s) 0 ferrous sulfate 325 mg oral enteric coated tablet: 325 mg = 1 tab(s), Oral, Daily, Refills(s) 0 furosemide 20 mg Tab: 20 mg = 1 tab(s), Oral, Daily, tab(s), Refills(s) 0 insulin glargine: 100 unit(s), Refills(s) 0 loperamide: 2 mg, Oral, Daily, Refills(s) 0 loratadine 10 mg Tab: 10 mg = 1 tab(s), Oral, Daily, Refills(s) 0 magnesium oxide: 420 mg, Oral, Daily, Refills(s) 0 memantine 28 mg oral capsule, extended release: 28 mg = 1 cap(s), Oral, Daily, Refills(s) 0 mometasone: 50 mcg, Inhalation, BID, Refills(s) 0 paroxetine 20 mg Tab: 10 mg = 0.5 tab(s), Oral, Daily, Refills(s) 0 psyllium oral powder: 6 gm, Oral, BID, Refills(s) 0 rivastigmine 13.3 mg/24 hr transdermal film, extended release: = 1 patch(es), Topical, Daily, # 30 patch(es), Refills(s) 0 tamsulosin 0.4 mg Cap: 0.4 mg = 1 cap(s), Oral, Bedtime, Refills(s) 0, Home Medications (27) Active Alpha Lipoic Acid 2 tab(s), Oral, Daily apixaban 5 mg oral tablet 5 mg = 1 tab(s), Oral, BID calcium (as carbonate)-vitamin D 500 mg-200 intl units oral tablet 1 tab(s), Oral, BID carbidopa-levodopa 10 mg-100 mg oral tablet, disintegrating 1 tab(s), Oral carvedilol 3.125 mg Tab 3.125 mg = 1 tab(s), Oral, BID cholecalciferol 25 mcg, Chewed, Daily Cipro 500 mg Tab See Instructions clopidogrel 75 mg Tab 75 mg = 1 tab(s), Oral, Daily Creon 12,000 units oral delayed release capsule 1 cap(s), Oral, TID diazepam 2 mg Tab 1 mg = 0.5 tab(s), Oral, Bedtime famotidine 20 mg Tab 20 mg = 1 tab(s), Oral, BID ferrous sulfate 325 mg oral enteric coated tablet 325 mg = 1 tab(s), Oral, Daily furosemide 20 mg Tab 20 mg = 1 tab(s), Oral, Daily Icosapent Ethyl 1 g oral capsule 4 gm = 4 cap(s), Oral, BID insulin glargine 100 unit(s) loperamide 2 mg, Oral, Daily loratadine 10 mg Tab 10 mg = 1 tab(s), Oral, Daily magnesium oxide 420 mg, Oral, Daily memantine 28 mg oral capsule, extended release 28 mg = 1 cap(s), Oral, Daily mometasone 50 mcg, Inhalation, BID Multivitamins and Minerals , Daily Myrbetriq 50 mg oral tablet, extended release 50 mg = 1 tab(s), Oral, Daily paroxetine 20 mg Tab 10 mg = 0.5 tab(s), Oral, Daily Potassium Chloride (Ipq-Ywja-Lsh 10) 10 mEq oral tablet, extended release 10 mEq = 1 tab(s), Oral, Daily psyllium oral powder 6 gm, Oral, BID rivastigmine 13.3 mg/24 hr transdermal film, extended release 1 patch(es), Topical, Daily tamsulosin 0.4 mg Cap 0.4 mg = 1 cap(s), Oral, Bedtime Problem list: All Problems History of prostate cancer / SNOMED CT 5273012272 / Confirmed Anxiety / SNOMED CT 80014809 / Confirmed Pancreatic insufficiency / SN (more content not included)... [facility] Comment on above: Result Comment: Elec tronically Signed By: Petr PAINTING MD\.br\Date and Time Signed: 06/15/24 17:17 EDT 06-15-2024 Evaluation + Plan note Extrac sterling from: Title:HOPD visit Author:Petr PAINTING MD Date: 06/15/24 Impression and Plan Assessment and Plan: Diagnosis: BPH with obstruction/lower urinary tract symptoms (XSK90-FC N40.1, Billing Diagnosis, Medical), Chronic radiation cystitis (ICD10- CM N30.40, Billing Diagnosis, Medical), Other obstructive and reflux uropathy (AKH55-PH N13.8, Discharge, Medical), Overactive bladder (UUE26-VY N32.81, Billing Diagnosis, Medical), Personal history of prostate cancer (CXL82-CQ Z85.46, Billing Diagnosis, Medical). Additional Plan of Care and/or Course of Treatment: Additional Plan of Care and/or Course of Treatment: The patient's witnessed cystoscopic evaluation, as well as the patient himself. The patient does have sequelae of Parkinson's disease but I feel he does understand our discussion. He has ongoing multiple medical issues not the least of which is Parkinson's disease as well as prostate cancer and is status post radiation therapy with moderate but present radiation cystitis changes in his bladder. Many of his symptoms are overactivity of the bladder which may be radiation-induced. We did discuss however that bladder outlet obstruction can also result in similar symptomatology. We could consider bladder outlet procedural intervention, such as UroLift. Due to his previous radiation therapy would recommend no operative intervention which would require healing. The tissue will not heal right and could result in significant dystrophic calcification. The only procedure which would be considered would be a UroLift in the hopes of decreasing bladder outlet tone and hopefully alleviating symptoms. He does not have significant trabeculation. I would favor treating with medical management for overactive bladder. The presence of Parkinson's disease leads to my decision not to provide any anticholinergics in that setting. We could consider beta 3 agonist though and we will see if this is cost Perative. Prescription sent for Myrbetriq at 50 mg. We discussed the possible side effects which are rare but present risks. They agree with that plan and prescription is sent. Follow-up within the next 4 to 6 weeks with Anabel Salinas to see if the Myrbetriq is helping and we can reassess his symptomatology at that time. Perhaps PVR check can be obtained. . Future Appointments Appointment Date:07/25/2024 12:30:00 PM Scheduled Provider:BARB Salinas APRN, Anabel Anthony Location:[facility] Appointment Type:URO Office Visit [facility] 10-03-2024 Hospital Discharge instructions Patient Education 06/15/2024 10:42:14 EU - Cystoscopy Discharge Instructions (Custom) Cystoscopy Voiding after the procedure: there may be some pain, burning, urgency, frequency and blood tinged urine following the procedure. These symptoms usually resolve within 2-5 days. Drink the amount of fluid it takes to keep the urine pink to yellow or clear in color. Drinking enough water and fluids will help to ease any discomfort after your procedure. If you are having problems that seem out of the ordinary, please call. If unable to contact your physician and you feel it is an emergency, go to the nearest emergency room or call 911 Diet you may resume your normal diet. Activity you may resume your normal activities Call if you have a fever over 100 degrees. Follow Up Care 05/01/2024 15:19:27 With:Anabel Salinas Address:Unknown When: Unknown Comments:As discussed, will send a prescription for overactive bladder to your pharmacy. Please call if thisis cost prohibitive. Will make an appointment with Anabel Salinas within the next six weeks to see if the medicine is helping. Please finish your antibiotics and have a great day! [facility] 10-03-2024 NotePatient Education Cystoscopy ? Voiding after the procedure: there may be some pain, burning, urgency, frequency and blood tingedurine following the procedure. These symptoms usually resolve within 2-5 days. Drink the amount of fluid it takes to keep the urine pink to yellow or clear in color. Drinking enough water and fluids will help to ease any discomfort after your procedure. ? If you are having problems that seem out of the ordinary, please call. ? If unable to contact your physician and you feel it is an emergency, go to the nearest emergency room or call 911 ? Diet ? you may resume your normal diet. ? Activity ? you may resume your normal activities ? Call if you have a fever over 100 degrees.[facility] 05-[facility] NoteUrology Office/Clinic Note Chief Complaint [facility], and hx prostate cancer. HPI Staff 83 year old male new patient referred for incontinence, hx of prostate cancer. Dr. Anderson is PCP per 09/14/23 [place] note. Was seeing urologist in [place] but hasn't sen them for 2 years. [...] with voice recognition artificial intelligence software, specifically [employer], [employer] and or [employer]. Substitutions may have occurred due to the [...] [address] Galvez in [place]. No recent PSA or cancer monitoring. Patient notes that he is very nervous about recurrence. Denies any recent worsening urinary symptoms or gross hematuria. He would like to continue PSA monitoring. -Records request for Dr. Galvez -PSA ordered today, will call patient with results. 2. Urinary incontinence (R32: Unspecified urinary incontinence) UUI, since radiation for prostate CA Has InterStim, 2012 states that it very slightly improved his [...] prostate obstruction affects long-term bladder health and compliance.We discussed alpha-paris medications to help with urinary [...] among others. The patient, after being informed ofprocedural details and after questions have been answered, [...] stones, no recent stone event that he isaware of. Discussed generalized stone prevention - pt encouraged to increase fluid intake so that he/she producing 2.5L of urine daily. Add 1/4 cup of lemon juice to water throughout the day or can also drink sugar free lemonade or clear soda. Avoid dark shaggy. Restrict sodium intake. Restrict animal protein. 6. Antiplatelet or antithrombotic long-term use (Z79.02: [facility] (current) use of antithrombotics/antiplatelets) On Plavix Follow-up With When Contact Information CINTHYA SANCHEZ, Petr Richard, URL [address] [id number]- Additional Instructions: schedule cysto Patient Education Prostate Cancer Benign Prostatic Hyperplasia Problem List/Past Medical History Ongoing Acute kidney injury Anemia Anxiety Arthritis Atrial fibrillation Benign prostatic hyperplasia with outflow obstruction Cerebrovascular accident Chronic kidney disease Chronic obstructive pulmonary disease Chronic systolic heart failure Congestive heart failure Deafness Dementia Diabetes Essen (more content not included)...[facility] Comment: Electronically Signed By: BARB Salinas APRN, [place] X\.br\Date and Time Signed: 05/01/24 08:58 [id number] NotePatient Education Oncology Prostate Cancer The prostate is [...] from the prostate and checked under a microscope(prostate biopsy). ? An imaging test called transrectal ultrasonography. Once the condition is diagnosed, tests will be done to determine how far the cancer has spread. This is called staging the cancer. Staging may involve imaging tests, such as a bone scan, CT scan, PETscan, or MRI. Stages of prostate cancer The [...] under a microscope. This is called the Bronston score and the total score can range from 6?10, indicating how likely it is that the cancer will spread (metastasize) to other parts of the body. The higher the score, the greater thelikelihood that the cancer will spread. ? Earl [...] seeds, wires, or tubes that are implanted intothe prostate gla (more content not included)...[facility] + Plan note Diagnostic Tests Pending * PSA Total 04/25/24 [facility] [place] 08-12-2024 History of Present illness Narrative* Rosemary Cartagena MD - 04/24/2024 2:00 PM EDT Most recently seen by me October 2023. After that was seen by Hosea Heart NP on 12/06/2023, 12/22/2023, 01/31/2024, and I have reviewed notes. Accompanied by to the office. Subjective : Continues to have exertional shortness of breath functional class III. Blood pressure is borderline. Compliant with medication denies lightheadedness presyncope syncope or falls. History so Far : 1. Chronic systolic [...] Insulin requiring diabetes 14. Short-term memory impairment 15. Echocardiogram August 2023-LVEF 35 to 40% severely hypokinetic septum severe inferior wall hypokinesis markedly dilated left atrium pacer wire seen in the right ventricle, no aortic stenosis mild aortic regurgitation, moderate mitral regurgitation, mild to moderate tricuspid regurgitation, RVSP 41 mmHg, no pericardial effusion, left atrial diameter of 5.7 cm, LV end-systolic diameter 4 cm Objective Wt Readings from Last 3 Encounters: 04/24/24 84.2 kg (185 lb 9.6 oz) 01/31/24 87.5 kg (193 lb) 12/22/23 88.5 kg (195 lb) Vitals: 04/24/24 1345 BP: 104/62 BP Location: Right arm Patient Position: Sitting Pulse: 62 Weight: 84.2 kg (185 lb 9.6 oz) Height: 1.676 m (5' 6 ) Physical Exam: ICD generator left infraclavicular area without erythema or tenderness Patient is awake alert oriented x3, no acute distress Lungs are clear, well-healed sternal scar of prior coronary artery bypass grafting is noted Heart sounds are regular without murmur rub or gallop Extremities show no edema Ambulates without assistance. Short term memory impairment Meds: Current Outpatient Medications Medication Instructions busPIRone (BUSPAR) 5 mg, oral, 2 times daily CALCIUM CARBONATE-VITAMIN D3 ORAL 1 capsule, oral, 2 times daily carbidopa-levodopa (Sinemet) 10-100 mg tablet 0.5 tablets, oral, 3 times daily carboxymethylcellulose (Refresh Tears) 0.5 % ophthalmic solution 1 drop, Both Eyes, As needed carvedilol (COREG) 3.125 mg, oral, 2 times daily (morning and late afternoon) cholecalciferol (Vitamin D-3) 5,000 Units tablet 1 tablet, oral, Daily clopidogrel (PLAVIX) 75 mg, oral, Daily Creon 36,000-114,000- 180,000 unit capsule,delayed release(DR/EC) capsule 2 capsules, oral, 3 timesdaily (morning, midday, late afternoon) DAILY MULTI-VITAMIN ORAL 1 capsule, oral, Daily diazePAM (Valium) 2 mg tablet 1 tablet, oral, Every 6 hours PRN digoxin (LANOXIN) 125 mcg, oral, Daily Eliquis 5 mg, oral, 2 times daily famotidine (PEPCID) 20 mg, oral, Nightly FERROUS SULFATE ORAL 325 mg, oral, Daily furosemide (LASIX) 20 mg, oral, Daily insulin glargine (LANTUS) 16 Units, subcutaneous, Daily RT loperamide (IMODIUM) 2 mg, oral, Daily magnesium oxide (MAG-OX) 420 mg, oral, Daily memantine (NAMENDA) 28 mg, oral, Daily nitroglycerin (NITROSTAT) 0.4 mg, sublingual, Every 5 min PRN PARoxetine (PAXIL) 20 mg, oral, Every morning perphenazine 2 mg, oral, Nightly potassium chloride CR (Klor-Con) 10 mEq ER tablet 10 mEq, oral, Daily, Do not crush, chew, or split. rivastigmine (Exelon) 13.3 mg/24 hour 1 patch, transdermal, Daily rosuvastatin (CRESTOR) 5 mg, oral, Daily sacubitriL-valsartan (Entresto) 24-26 mg tablet 1 tablet, oral, Daily, Take the 49/51mg tablet in the evening sacubitriL-valsartan (Entresto) 49-51 mg tablet 1 tablet, oral, Nightly, Take the 24/26mg daily in the morning tamsulosin (Flomax) 0.4 mg 24 hr capsule 1 capsule, oral, Daily traZODone (DESYREL) 50 mg, oral, Nightly Allergies Allergen Reactions Fish Oil Diarrhea Byetta [Exenatide] Unknown Codeine Unknown Demerol [Meperidine] Unknown Invokana [Canagliflozin] Unknown Victoza 2-Cruz [Liraglutide] Unknown LABS: March 2024-sodium 144 potassium 4.5 BUN 28 creatinine 1.5 GFR 43 LDL cholesterol 29 ICD interrogation February 2024-98% RV paced less than 10% right atrial pacing chronic atrial fibrillation battery longevity 1 to 2 years Patient Active Problem List Diagnosis Date Noted Former smoker 04/24/2024 Stage 3b chronic kidney disease (Multi) 04/24/2024 Nonrheumatic mitral valve regurgitation 04/24/2024 Nonrheumatic aortic valve insufficiency 04/24/2024 BMI 29.0-29.9,adult 12/06/2023 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 10/25/2023 Bipolar disorder, current episode manic severe with psychotic features (Multi) 10/25/2023 Sacroiliitis, not elsewhere classified ([facility]) 10/25/2023 Idiopathic chronic pancreatitis (Multi) 10/25/2023 Dementia in other diseases classified elsewhere, unspecified severity, without behavioral disturbance, psychotic disturbance, mood disturbance, and anxiety (Multi) 10/25/2023 Major depressive disorder, recurrent, moderate (Multi) 10/25/2023 Acute embolism and thrombosis of right peroneal vein (Multi) 10/25/2023 Prostate CA (Multi) 10/25/2023 Chronic systolic heart failure (Multi) 10/25/2023 ICD (implantable cardioverter-defibrillator) in place 08/30/2023 Abnormal EKG 08/30/2023 Hx of coronary artery bypass graft 08/30/2023 Coronary artery disease involving chippewa-cree coronary artery of chippewa-cree heart without angina pectoris 08/30/2023 Obstructive sleep apnea syndrome 08/30/2023 Permanent atrial fibrillation (Multi) 08/30/2023 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 Permanent atrial fibrillation (Multi) Follow Up In Cardiology 2. Ischemic cardiomyopathy Follow Up In Cardiology sacubitriL-valsartan (Entresto) 24-26 mg tablet sacubitriL-valsartan (Entresto) 49-51 mg tablet 3. Congestive heart failure, NYHA class 3, chronic, systolic (Multi) sacubitriL- valsartan (Entresto) 24-26 mg tablet sacubitriL-valsartan (Entresto) 49-51 mg tablet Basic Metabolic Panel B-Type Natriuretic Peptide Follow Up In Cardiology Basic Metabolic Panel B-Type Natriuretic Peptide 4. ICD (implantable cardioverter-defibrillator) in place Follow Up In Cardiology 5. Coronary artery disease involving chip[place]wa-cree coronary artery of chippewa-cree heart without angina pectorisrosuvastatin (Crestor) 5 mg tablet 6. Hx of coronary artery bypass graft 7. 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 Follow Up In Cardiology 8. 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 Other specified diabetes mellitus with other specified complication, unspecified whether shelter insulin use (Multi) 10. Obstructive sleep apnea syndrome 11. History of stroke 12. Stage 3b chronic kidney disease (Multi) 13. BMI 29.0-29.9,adult 14. Former smoker 15. Nonrheumatic mitral valve regurgitation 16. Nonrheumatic aortic valve insufficiency Clinical decision making: We have not been able to maximize guideline directed medical therapy because of borderline blood pressure. Patient continues to has have class III NYHA congestive heart failure. There is also a significant amount of RV pacing. This may contribute to the LVEF not getting better. We will try and uptitrate the Entresto to 49/51 at bedtime, continue the 6 in the morning Obtain basic metabolic profile and BNP level in 2 weeks Patient is not on any statins, has coronary artery disease, this could be because LDL is 29, but triglycerides and total cholesterol are above target, will start rosuvastatin 5 mg p.o. daily. No contraindication to statins per chart review. At next visit, based on clinical course, we will discuss BiV pacing and EP referral. Follow up : 3 months Scribe Attestation By signing my name below, I, Jennifer Downs LPN attest that this documentation has been prepared under the direction and in the presence of Rosemary Cartagena MD. Provider Attestation - Scribe documentation All medical record entries made by the Scribe were at my direction and personally dictated by me. Leoncio reviewed the chart and agree that the record accurately reflects my personal performance of the history, physical exam, discussion and plan. documented in this [facility] Work Phone: [phone]) 253-870408-12-2024 Instructions* Patient Instructions* Carrie Garcia LPN - 04/24/2024 2:00 PM EDT Please bring all medicines, vitamins, and herbal supplements with you when you come to the office. Prescriptions will not be filled unless you are compliant with your follow up appointments or have a follow up appointment scheduled as per instruction of your physician. Refills should be requested at the time of your visit. BMI was above normal measurement. Current weight: 84.2 kg (185 lb 9.6 oz) Weight change since last visit (-) denotes wt loss -7.4 lbs Weight loss needed to achieve BMI 25: 31 Lbs Weight loss needed to achieve BMI 30: 0.1 Lbs Provided instructions on dietary changes. Pacemaker/Defibrillator follow up per routine * Attachments The following attachments cannot be sent through Care Everywhere. * Heart Healthy Diet (Lithuanian) documented in this [facility] Work Phone: [phone]) 826-592704-10-2024 History of Present illness Narrative* Hosea Heart, 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 - 12/22/2023 2:00 PM EDT Chief Complaint He is swelling up Reason [...] increasing edema in his upper extremities and lowerextremities. He denies any shortness of breath, he had no concerns ambulating in from the parking lot. He remains compliant with his BiPAP machine. reports that he is sleeping all the time . Hedoes feel that maybe his depression is worsening and he will be following up with his psychiatrist next week. With initiation of Entresto he does feel like it made significant improvement in his dyspnea. Off of Lasix, has noted fluid retention. Patient reports that overall has no complaint(s) of chest pain, chest pressure/discomfort, dyspnea,and near-syncope Review of Systems Cardiovascular: Positive for [...] 2 capsules, oral, 3 timesdaily with meals DAILY MULTI-VITAMIN ORAL 1 capsule, [...] failure, systolic, possibly systolic and diastolic, functional class2 with improvement in TONG with initiation of Entresto. Presents today with fluid retention but no evidence of orthopnea or PND. Varying estimates of left ventricular ejection fraction most recent 35% echo August 2021 43% stress perfusion study August 2021 Cannot be on Farxiga or Jardiance because of history of pancreatitis. Medtronic Evera XT DR ICD May 2019, with a new 6935 RV lead at the reuse of the chronic 5076 atrial lead. QRS duration 96 ms when not paced, 180 ms when paced. not interested in pursing additional upgrade. Permanent atrial fibrillation on long-term anticoagulation with Eliquis. History of coronary artery bypass graft x 2, remote, rotational atherectomy and ROBERTO of LAD diagonalin 2014. Aug 2021 MPI no ischemia, inferior scar. Plan: Through informed decision making process incorporating patients unique circumstances, the followingtreatment plan will be initiated: 1. Prescription drug management of cardiovascular medication for efficacy, adherence to treatment, side effect assessment and polypharmacy. Current treatment clinically warranted and to continue withfollowing modifications: - Resume lasix 20mg and KCL 10meq daily. For next 2 days take two tablets of each 2. Chem6 in 2 weeks 3. Return for follow-up; in the interim, contact the office if new symptoms arise. PRICE CHECKER in one month [facility] MSN, 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, PMHNP-[facility] Please excuse any errors in grammar or translation related to this dictation. Voice recognition software was utilized to prepare this document. [facility] Work Phone: 1(843) 343-641004-10-2024 Instructions* Patient Instructions* CHARLI Hollingsworth - 12/22/2023 2:00 PM EDT [...] making process incorporating patients unique circumstances, the followingtreatment plan will be initiated: 1. Prescription drug management of cardiovascular medication for efficacy, adherence to treatment, side effect assessment and polypharmacy. Current treatment clinically warranted and to continue withfollowing modifications: - Resume lasix 20mg and KCL 10meq daily. For next 2 days take two tablets of each 2. Chem6 in 2 weeks 3. Return for follow-up; in the interim, contact the office if new symptoms arise. PRICE CHECKER in one month documented in this [facility] Work Phone: 1(506) 247-321703-25-2024 History of Present illness Narrative* CHARLI Hollingsworth - 12/06/2023 3:00 PM EDT Chief Complaint I think I am fine Reason for Visit Patient presents to the office today for outpatient follow-up for medication change. Last evaluated in clinic by Dr. Cartagena 2 weeks ago. At that time Entresto 24/26 mg half tablet twicedaily added to medical regimen along with digoxin [...] the office today his standing blood pressure [id number]/64. He did not take his Lasix this [...] the back exam room to the front departmental secretary there was no dyspnea noted with conversation. [...] Have discussed with the plan would be toinitiate carvedilol in the morning and then check [...] 2 capsules, oral, 3 timesdaily with meals DAILY MULTI-VITAMIN ORAL 1 capsule, [...] failure, systolic, possibly systolic and diastolic, functional glilu8j with improvement in TONG with initiation of Entresto. Varying estimates of left ventricular ejection fraction most recent 35% echo August 2021 43% stress perfusion study August 2021 Cannot be on Farxiga or Jardiance because of history of pancreatitis. Medtronic Evera XT DR ICD May 2019, with a new 6935 RV lead at the reuse of the chronic 5076 atrial lead. QRS duration 96 ms when not paced, 180 ms when paced. not interested in pursing additional upgrade. Permanent atrial fibrillation on long-term anticoagulation with Eliquis. One mechanical fall. History of coronary artery bypass graft x 2, remote, rotational atherectomy and ROBERTO of LAD diagonalin 2014. Aug 2021 MPI no ischemia, inferior scar. Plan: Through informed decision making process incorporating patients unique circumstances, the followingtreatment plan will be initiated: 1. Prescription drug management of cardiovascular medication for efficacy, adherence to treatment, side effect assessment and polypharmacy. Current treatment clinically warranted and to continue withfollowing modifications: - Stop lasix and potassium - Increase Entresto to 25/26mg one tablet twice daily. Take blood pressure 2 hours after takes morning dose of coreg. If top number of blood pressure is greater than 120 give Entresto. 2. Return for follow-up; in the interim, contact the office if new symptoms arise. PRICE CHECKER in 2 weeks [facility] MSN, CHARLI, PMHNP-[facility] Please excuse any errors in grammar or translation related to this dictation. Voice recognition software was utilized to prepare this document. documented in this encounter[facility] Work Phone: 1(751) 707-721003-25-2024 Instructions* Patient Instructions* CHARLI Hollingsworth - 12/06/2023 3:00 PM EDT [...] making process incorporating patients unique circumstances, the followingtreatment plan will be initiated: 1. Prescription drug management of cardiovascular medication for efficacy, adherence to treatment, side effect assessment and polypharmacy. Current treatment clinically warranted and to continue withfollowing modifications: - Stop lasix and potassium - Increase Entresto to 25/26mg one tablet twice daily. Take blood pressure 2 hours after takes morning dose of coreg. If top number of blood pressure is greater than 120 give Entresto. 2. Return for follow-up; in the interim, contact the office if new symptoms arise. PRICE CHECKER in 2 weeks documented in this [facility] Work Phone: 1(878) 172-326102-12-2024 History of Present illness Narrative* Rosemary Cartagena MD - 10/25/2023 2:15 PM EST Patient was most easily seen in August [...] device clinic, and ordered blood work. Could notuptitrate guideline directed medical therapy because of borderline [...] Sick sinus syndrome dual-chamber pacemaker, revised to [employer] Evera XT DR ICD May 2019,with a [...] 2 capsules, oral, 3 timesdaily with meals DAILY MULTI-VITAMIN ORAL 1 capsule, [...] apnea 08/30/2023 Permanent atrial fibrillation (CMS/HCC) 08/30/2023 [facility] 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 08/30/2023 Shortness [...] 180 ms when paced. Will start Entresto 24/26 0.5 tablets daily. Will need close follow-up, [...] Attestation By signing my name below, I, Monisha ROBERSON , Scrdestini attest that this documentation has been prepared under the direction and in the presence of Rosemary Cartagena MD. documented in this encounter[facility] Work Phone: 1(500) 763-745902-12-2024 Instructions* Patient Instructions* Monisha Roberts LPN - 10/25/2023 2:15 PM [...] follow up per routine documented in this encounter[facility] Work Phone: 1(810) 537-467501-04-2024 Evaluation note* Encounter Date Diagnosis Assessment Notes Treatment Notes Treatment Clinical Notes Sep, Diarrhea (ICD-10 - R19.7) Loop Survey Other 2023 History of Present illness Narrative* Rosemary Cartagena MD - 08/30/2023 10:30 AM EST Referring provider: Justin MARIN. History Of Present Illness: Yoana Ibrahim is a 82 y.o. male presenting with long history of cardiac problems, and is here to establish cardiology visit. Previously was going to [place], patient and want to switch care over to [facility]. Has history of atrial fibrillation coronary artery [...] pacemaker, revised to Medtronic Evera XT DR MEDINA May 2019,with a new 6935 RV lead [...] 62 bpm Assessment/Plan 1. Permanent atrial fibrillation ([facility]) 2. ICD (implantable cardioverter-defibrillator) in place 3. Sleep apnea, unspecified type 4. Abnormal EKG 5. Hx of coronary artery bypass graft 6. Coronary artery disease, unspecified vessel or lesion type, unspecified whether angina present, unspecified whether chippewa-cree or transplanted heart 7. [facility] 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 8. Shortness of breath 9. History of stroke 10. Benign prostatic hyperplasia with lower urinary tract symptoms, symptom details unspecified 11. Ischemic cardiomyopathy 12. Fatigue, unspecified type 13. Other specified diabetes mellitus with other specified complication, unspecified whether shelter insulin use (CMS/HCC) Patient has chronic left heart failure, systolic, [...] at this time. 4. Enroll in device clinic-Pax8 XT DR 2018 5. Follow-up in 8 weeks at which time further recommendations can be made. Total of 60 minutes reviewing information coordinating care and ordering additional testing. Thank you for allowing me to participate in Mr. Ibrahim's care, please do not hesitate to call if further questions arise, Sincerely, Rosemary Cratagena MD [facility] Provider Attestation - Scribe documentation All medical record entries made by the Scribe were at my direction and personally dictated by me. Ihave reviewed the chart and agree that the record accurately reflects my personal performance of the history, physical exam, discussion and plan. Scribe Attestation By signing my name below, I, Inés Morales LPN , Jennifer attest that this documentation has been prepared under the direction and in the presence of Rosemary Cartagena MD. documented in this [facility] Work Phone: 1(864) 476-109212-18-2023 Instructions* Patient Instructions* Monisha Roberts LPN - [...] done in office today documented in this [facility] Work Phone: 1(875) 913-695711-30-2023 Evaluation note* Encounter Date Diagnosis Assessment Notes Treatment Notes Treatment Clinical Notes Jul, Diarrhea (ICD-10 - R19.7) Loop Survey Other 07-20-2023 Evaluation note* Encounter Date Diagnosis Assessment Notes Treatment Notes Treatment Clinical Notes Mar, Exocrine pancreatic insufficiency (ICD-10 - K86.81) Patient will continue Creon as directed without change Mar, Diarrhea (ICD-10 - R19.7) Patient reports that he still has fecal accidents about 1 every 2 weeks Patient will continue Imodium as direct without change Loop Survey Other 12-15-2022 Evaluation note* Encounter Date Diagnosis Assessment Notes Treatment Notes Treatment Clinical Notes Aug, Diarrhea (ICD-10 - R19.7) Loop Survey Other 12-13-2022 Evaluation note* Encounter Date Diagnosis Assessment Notes Treatment Notes Treatment Clinical Notes Aug, Diarrhea (ICD-10 - R19.7) Loop Survey Other 06-29-2022 Evaluation note* Encounter Date Diagnosis Assessment Notes Treatment Notes Treatment Clinical Notes Feb, 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 PATIENT ADVISED WE WILL INCREASE MEDICATION AT THIS TIME. 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 All the questions were answered. Loop Survey Other 10-05-2021 Evaluation note* Encounter Date Diagnosis Assessment Notes Treatment Notes Treatment Clinical Notes Jun, Lumbar degenerative disc disease (ICD-10 - M51.36) Loop Survey Other 10-04-2021 Evaluation note* Encounter Date Diagnosis [...] - M47.817) Stable, proceed with treatment plan. Loop Survey Other 10-04-2021 Evaluation note* Encounter Date Diagnosis Assessment Notes Treatment Notes Treatment Clinical Notes Jun, Lower extremity pain (ICD-10 - M79.606) Loop Survey Other Evaluation + Plan note Future Appointments Appointment Date:04/25/2024 01:30:00 PM Scheduled Provider:BARB Salinas APRN, [place] X Location:[facility] Appointment Type:URO New Patient [facility] Jaiden Evaluation + Plan note Future Appointments Appointment Date:10/03/2024 03:30:00 PM Scheduled Provider:Petr PAINTING MD Location:[facility] Appointment Type:URO Office Visit Diagnostic Tests Pending * PSA Total 07/25/24 [facility] noteNo InformationNort [employer] Other Evaluation noteNo assessment information available [facility] Work Phone: Evaluation note* Diagnosis Permanent atrial fibrillation (CMS/HCC)- Primary Atrial fibrillation ICD (implantable cardioverter-defibrillator) in place Sleep apnea, unspecified type Abnormal EKG Nonspecific abnormal electrocardiogram (ECG) (EKG) Hx of coronary artery bypass graft Postsurgical aortocoronary bypass status Coronary artery disease, unspecified vessel or lesion type, unspecified whether angina present, unspecified whether chippewa-cree or transplanted heart 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 Shortness of breath History of stroke Transient ischemic attack (TIA), and cerebral infarction without residual deficits Benign prostatic hyperplasia with lower urinary tract symptoms, symptom details unspecified Ischemic cardiomyopathy Other specified forms of chronic ischemic heart disease Fatigue, unspecified type Other specified diabetes mellitus with other specified complication, 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 (CMS/HCC) documented in this encounter [facility] Work Phone: Evaluation note* Diagnosis Abnormal EKG Nonspecific abnormal electrocardiogram (ECG) (EKG) Sleep apnea, unspecified type Permanent atrial fibrillation (CMS/HCC) Atrial fibrillation Shortness of breath documented in this encounter [facility] Work Phone: Evaluation note* Diagnosis Bipolar disorder, current episode manic severe with psychotic features (CMS/HCC)- Primary Permanent atrial fibrillation (CMS/HCC) Atrial fibrillation Ischemic cardiomyopathy Other specified forms of chronic ischemic heart disease ICD (implantable cardioverter-defibrillator) in place Hx of coronary artery bypass graft Postsurgical aortocoronary bypass status Coronary artery disease involving chippewa-cree coronary artery of chippewa-cree heart without angina pectoris History of stroke Transient ischemic attack (TIA), and cerebral infarction without residual deficits Other specified diabetes mellitus with other specified complication, 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 ([facility]) 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 Unspecified essential hypertension [facility] 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 Obstructive sleep apnea syndrome Obstructive sleep apnea (adult) (pediatric) Medication course changed Sacroiliitis, not elsewhere classified ([facility]) Sacroiliitis, not elsewhere classified Idiopathic chronic pancreatitis ([facility]) Dementia in other diseases classified elsewhere, unspecified severity, without behavioral disturbance, psychotic disturbance, mood disturbance, and anxiety ([facility]) Major depressive disorder, recurrent, moderate ([facility]) Major depressive disorder, recurrent episode, moderate Acute embolism and thrombosis of right peroneal vein ([facility]) Prostate CA ([facility]) Malignant neoplasm of prostate Chronic systolic heart failure ([facility]) Chronic systolic heart failure documented in this encounter [facility] Work Phone: Evaluation note* Diagnosis BMI 29.0-29.9,adult- Primary Ischemic cardiomyopathy Other specified forms of chronic ischemic heart disease 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 Unspecified essential hypertension documented in this encounter [facility] Work Phone: Evaluation note* Diagnosis BMI 31.0-31.9,adult- Primary Ischemic cardiomyopathy Other specified forms of chronic ischemic heart disease documented in this encounter [facility] Work Phone: Evaluation note* Diagnosis Onset Date Resolution Status Exocrine pancreatic insufficiency [facility] Work Phone: Evaluation note* Diagnosis Hyperreflexia- Primary Abnormal reflex Gait difficulty Abnormality of gait Vertigo Dizziness and giddiness Anxiety Anxiety state, unspecified Memory loss Balance problem Abnormality of gait Chronic post-traumatic headache, not intractable [facility] Diagnosis Chronic bilateral low back pain with bilateral sciatica- Primary Gait difficulty Abnormality of gait Memory loss Chronic post-traumatic headache, not intractable Cerebrovascular accident (CVA), unspecified mechanism ([facility]) Vertigo Dizziness and giddiness [facility]* Diagnosis Congestive heart failure, NYHA class 3, chronic, systolic 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 Unspecified essential hypertension Hx of coronary artery bypass graft Postsurgical aortocoronary bypass status ICD (implantable cardioverter-defibrillator) in place Ischemic cardiomyopathy Other specified forms of 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 Former smoker Personal history of tobacco use, presenting hazards to health Body mass index (BMI) 28.0-28.9, adult Permanent atrial fibrillation (Multi) Atrial fibrillation Parkinson's disease, unspecified whether dyskinesia present, unspecified whether manifestations fluctuate Falls frequently Personal history of fall documented in this encounter [facility] Work Phone: Evaluation note* Diagnosis Permanent atrial fibrillation (Multi) Atrial fibrillation Ischemic cardiomyopathy Other specified forms of chronic ischemic heart disease Congestive heart failure, NYHA class 3, chronic, systolic (Multi) 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 artery disease involving chippewa-cree coronary artery of chippewa-cree heart without angina pectoris Hx of coronary artery bypass graft Postsurgical aortocoronary bypass status 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 Unspecified essential hypertension [facility] 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 Other specified diabetes mellitus with other specified complication, unspecified whether shelter insulin use (Multi) Obstructive sleep apnea syndrome Obstructive sleep apnea (adult) (pediatric) History of stroke Transient ischemic attack (TIA), and cerebral infarction without residual deficits Stage 3b chronic kidney disease (Multi) BMI 29.0-29.9,adult Former smoker Personal history of tobacco use, presenting hazards to health Nonrheumatic mitral valve regurgitation Nonrheumatic aortic valve insufficiency documented in this encounter [facility] Work Phone: Evaluation note* Diagnosis Periodic limb movement disorder- Primary Gait difficulty Abnormality of gait Balance problem Abnormality of gait Radiculopathy, lumbosacral region Thoracic or lumbosacral neuritis or radiculitis, unspecified Memory loss [facility] N[facility] - Reported* Type Description Date Medical History degenerative disc disease Medical History stenosis Medical History bladder cancer Medical History stroke Medical History DM 2 Surgical History APPENDECTOMY Surgical History CHOLECYSTECTOMY Surgical History bilateral knee replacements Surgical History cardiac pacemaker Surgical History bladder stimulator Surgical History open heart surgery Hospitalization History see above Loop Survey Other History general Narrative - Reported* Type [...] cataract-lens implants RACHELLE. Hospitalization History see above Loop Survey Other Hospital course Narrative No data available for this section [facility] Discharge instructions No data available for this section [facility] Progress note No data available for this section [facility] Reason for referral (narrative)* Consultation (Routine) - Authorized Specialty Diagnoses / Procedures Referred By Godwin romo Referred To Contact Cardiology Diagnoses Permanent atrial fibrillation (CMS/HCC) Ischemic cardiomyopathy ICD (implantable cardioverter-defibrillator) in place 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 Procedures Follow Up In Cardiology Rosemary Cartagena MD [address] [facility] [address] [place] [address] [facility], 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 [address] [facility] [address], [facility] [address] [place] [address] Referral ID Status Reason Start Date Expiration Date V isits Requested Visits Authorized [id number] Authorized 10/25/2023 10/24/2024 1 1 * Consultation (Routine) - Authorized Specialty Diagnoses / Procedures Referred By Godwin romo Referred To Contact Sleep Medicine Diagnoses Obstructive sleep apnea syndrome Rosemary Cartagena MD [address] [facility] [address] [place] [address] Referral ID Status Reason Start Date Expiration Date Visits Requested Visits Authorized [id number] Authorized Specialty Services Required 10/25/2023 10/24/2024 1 1 * Consultation (Routine) - Authorized Specialty Diagnoses / Procedures Referred By Godwin romo Referred To Contact Cardiology Diagnoses Permanent atrial fibrillation (CMS/HCC) Ischemic cardiomyopathy ICD (implantable cardioverter-defibrillator) in place 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 Procedures Follow Up In Cardiology Rosemary Cartagena MD [address] [facility] [address] [place] [address] Rosemary Cartagena MD [address] [facility] [address] [place] [address] Referral ID Status Reason Start Date Expiration Date V isits Requested Visits Authorized [id number] Authorized 10/25/2023 10/24/2024 1 1 [facility] Work Phone: reason for referral (narrative)* Consultation (Routine) - Authorized Specialty Diagnoses / Procedures Referred By Contac t Referred To Contact Cardiology Diagnoses Ischemic cardiomyopathy Procedures Follow Up In Cardiology [facility] APRN-CARPET INSTALLER [address] [facility] [address], [address] [address] Referral ID Status Reason Start Date Expiration Date V isits Requested Visits Authorized [id number] Authorized 12/06/2023 12/05/2024 1 1 [facility] Work Phone: reason for referral (narrative)* Consultation (Routine) - Authorized Specialty Diagnoses / Procedures Referred By Contac t Referred To Contact Cardiology Diagnoses Ischemic cardiomyopathy Procedures Follow Up In Cardiology [facility] APRN-CARPET INSTALLER [address] [facility] [address], [address] [address] Referral ID Status Reason Start Date Expiration Date V isits Requested Visits Authorized [id number] Authorized 12/22/2023 12/21/2024 1 1 [facility] Work Phone: reason for referral (narrative)* Consultation (Routine) - Authorized Specialty Diagnoses / Procedures Referred By Contac t Referred To Contact Cardiology Diagnoses Congestive heart failure, NYHA class 3, chronic, systolic (Multi) Procedures Follow Up In Cardiology Rosemary Cartagena MD [address] [facility] [address] [place] [address] Rosemary Cartagena MD [address] [facility] [address] [place] [address] Referral ID Status Reason Start Date Expiration Date V isits Requested Visits Authorized [id number] Authorized 04/24/2024 04/24/2025 1 1 [facility] Work Phone: Summary Purpose Family History No [...] FoundDocuments on File Type Date Recorded Patient Lightout Examiner Expl anation Advance Directives and Livin g Will Advance Directives and Livin g Will 10/15/2013 9:06 AM Power of Die Cast Patternmaker Power of Die Cast Patternmaker 10/15/2013 9:06 AM Latest Code Status on [...] of his home medications were given to appeals writer & appeals writer sent medication to pharmacy for verification. Patients home medications were put in a patient belonging bag & patient stickers were placed on bag. The home medications were locked in the medication cabinet inpatients room * Pantera Alegre RN - 06/12/2019 2:15 PM EDT Received post ICD procedure to PCC room 4. Assessment obtained. Restrictions reviewed with [...] Lumbar degenerative disc disease (M51.36) Referral Organization [facility] Pain Managemen t Referring Provider First Name Ryder Referring Provider Last Name Ranjeet Referring Provider Specialty Pain Medici ne Referred Organization [facility] Ne urosurgery Referred Provider Maciej Maciel Dale Referred Address [address] [facility],[address] ,[place], [place],[address] Referred Provider Specialty Neurological Surgery Referral Priority Routine General Notes Tarsha Nieto Carmelina 02:53:20 PM >Patient had CT scan of the lumbar spine in [place] earlier this year. He has a pacemaker/defibrillator and cannot have MRI Reason *FU 06/24 eval and treat Diagnosis 1 Lower extremity pain (M79.606) Referral Organization [facility] Pain Managemen t Referring Provider First Name Ryder Referring Provider Last Name Ranjeet Referring Provider Specialty Pain Medici ne Referred Organization [facility] Vascular Surge ry Referred Provider Abdon Jackman Referred Address [address] [facility] [address],[place], [place],[address] Referred Provider Specialty Vascular Laila haresh Referral Priority Routine General Notes Sadaf Hernandez 10:25:46 AM >p2p sent Reason Evaluate and Treat Diagnosis 1 Spondylolisthesis, l umbar region (M43.16) Referral Organization [facility] Ne urosurgery Referring Provider First Name Osvaldo Referring Provider Last Name Raheem Referring Provider Specialty Neurologica l Surgery Referred Organization [facility] Referred Address [address] [place], [place],[address] Referred Provider Specialty Physical The rapist Referral Priority Routine Specialty Diagnoses / Procedures Referred By Godwin romo Referred To Contact Cardiology Diagnoses Abnormal EKG Sleep apnea, unspecified type Permanent atrial fibrillation (CMS/HCC) Shortness of breath Procedures Transthoracic Echo (TTE) Complete MA ECHO TRANSTHORC R-T 2D W/WO M-MODE REC F-UP/LMTD MA DOP ECHOCARD COLOR FLOW VELOCITY MAPPING MA DOP ECHOCARD PULSE WAVE W/SPECTRAL F-UP/LMTD STD Rosemary Cartagena MD [address] [facility] [address] [place] [address] Referral ID Status Reason Start Date Expiration Date Visits Requested Visits Authorized [id number] Pending Review Perform Procedure 3 08/29/2024 1 1 Specialty Diagnoses / Procedures Referred By Godwin romo Referred To Contact Cardiology Diagnoses ICD (implantable cardioverter-defibrillator) in place Ischemic cardiomyopathy Rosemary Cartagena MD [address] [facility] [address] [place] [address] Referral ID Status Reason Start Date Expiration Date Visits Requested Visits Authorized [id number] Authorized Specialty Services Required 08/29/2024 1 1 Specialty Diagnoses / Procedures Referred By Contac t Referred To Contact Diagnoses ICD (implantable cardioverter-defibrillator) in place Permanent atrial fibrillation (CMS/HCC) Procedures ECG 12 Lead Rosemary Cartagena MD [address] [place] [address] Referral ID Status Reason Start Date Expiration Date V isits Requested Visits Authorized [id number] Pending Review 08/30/2023 08/29/2024 1 1 Specialty Diagnoses / Procedures Referred By Contac t Referred To Contact Cardiology Diagnoses Permanent atrial fibrillation (CMS/HCC) Ischemic cardiomyopathy Procedures Follow Up In Cardiology Rosemary Cartagena MD [address] [facility] [address] [place] [address] Roesmary Cartagena MD [address] [facility] [address] [place] [address] Referral ID Status Reason Start Date Expiration Date V isits Requested Visits Authorized [id number] Authorized 08/30/2023 08/29/2024 1 1 Specialty Diagnoses / Procedures Referred By Contac t Referred To Contact Physical Therapy Diagnoses Gait difficulty Balance problem Procedures MA OFFICE/OUTPATIENT NEW HIGH MDM 60 MINUTES Viky Rollins PA [address] [place] [address] Referral ID Status Reason Start Date Expiration Date Visits Requested Visits Authorized [id number] Authorized Specialty Services Required 06/14/2024 12/11/2024 10 10 Specialty Diagnoses / Procedures Referred By Contac t Referred To Contact Radiology Diagnoses Hyperreflexia Balance problem Procedures CT cervical spine wo IV contrast Viky Rollins PA [address] [place] [address] [facility] Scheduling [address] [place] [address] Referral ID Status Reason Start Date Expiration Date Visits Re quested Visits Authorized [id number] Closed 06/13/2024 12/10/2024 1 1 Specialty Diagnoses / Procedures Referred By Godwin romo Referred To Contact Radiology Diagnoses Gait difficulty Balance problem Procedures CT head wo IV contrast Viky Rollins PA [address] [place] [address] [facility] Scheduling [address] [place] [address] Referral ID Status Reason Start Date Expiration Date Visits Re quested Visits Authorized [id number] Closed 06/13/2024 12/10/2024 1 1 Chief Complaint and Reason for Visit Chief Complaint n64.89 Chief Complaint z95.810 i25.5; BENJI NT HAS LAB ORDERS Chief Complaint z95.810 i25.5 i10 i25.5 z86.73 Chief Complaint z95.810 i25.5 i10 i25.5 z86.73 R41.0 i25.5 Chief Complaint R41.0 i25.5 z95.810 i25.5 Chief Complaint R41.0 i25.5 z95.810 i25.5 1 year follow up Reason for Visit Exocrine pancreatic insufficiency Chief Complaint R41.0 i25.5 z95.810 i25.5 1 year follow up See order Reason for Visit Exocrine pancreatic insufficiency Chief Complaint 1 year follow up See order z95.810 i25.5 Reason for Visit Exocrine pancreatic insufficiency Chief Complaint 1 year follow up See order z95.810 i25.5 r26.9 r26.89 Reason for Visit Exocrine pancreatic insufficiency Additional Source Comments (unrecognized sect ion and content) No Status Records FoundNo Status Records FoundNo Status Records FoundNo Status Records FoundNo Status Records FoundNo Status Records FoundNo Status Records FoundNo Status Records Found INFORMATION SOURCE (unrecogn ized section and content) DATE CREATED AUTHOR 03/02/2018 [facility] DATE CREATED AUTHOR AUTHOR'S ORGANIZ ATION 06/26/2019 [place] DATE CREATED AUTHOR AUTHOR'S ORGANIZ ATION 09/04/2022 [facility] DATE CREATED AUTHOR AUTHOR'S ORGANIZ ATION 06/01/2024 [facility] DATE CREATED AUTHOR AUTHOR'S ORGANIZ ATION 07/17/2024 [facility] DATE CREATED AUTHOR AUTHOR'S ORGANIZ ATION 07/27/2024 [facility] DATE CREATED AUTHOR AUTHOR'S ORGANIZ ATION 08/27/2024 [facility] EPIC DATE CREATED AUTHOR AUTHOR'S ORGANIZ ATION 08/30/2024 [facility] Reason for Visit (unrecogniz ed section and content) Status Reason Specialty Diagnoses / Procedures Referre d By Contact Referred To Contact Diagnoses S/P ICD (internal cardiac defibrillator) procedure lab aide Procedures lab aide Raúl Vale MD [address] [facility]. [place], [place] [facility] Reason Comments New Patient Visit Re-establish Specialty Diagnoses / Procedures Referred By Contac t Referred To Contact Diagnoses ICD (implantable cardioverter-defibrillator) in place Permanent atrial fibrillation (CMS/HCC) Procedures ECG 12 Lead Rosemary Cartagena MD [address] [facility] [address] [place] [address] Referral ID Status Reason Start Date Expiration Date V isits Requested Visits Authorized [id number] Pending Review 08/30/2023 08/29/2024 1 1 Specialty Diagnoses / Procedures Referred By Contac t Referred To Contact Cardiology Diagnoses Abnormal EKG Sleep apnea, unspecified type Permanent atrial fibrillation (CMS/HCC) Shortness of breath Procedures Transthoracic Echo (TTE) Complete MA ECHO TRANSTHORC R-T 2D W/WO M-MODE REC F-UP/LMTD MA DOP ECHOCARD COLOR FLOW VELOCITY MAPPING MA DOP ECHOCARD PULSE WAVE W/SPECTRAL F-UP/LMTD STD Rosemary Cartagena MD [address] [facility] [address] [place] [address] Referral ID Status Reason Start Date Expiration Date Visits Requested Visits Authorized [id number] Pending Review Perform Procedure 08/29/2024 1 1 Reason Comments Follow-up 8 week Specialty Diagnoses / Procedures Referred By Contac t Referred To Contact Cardiology Diagnoses Permanent atrial fibrillation (CMS/HCC) Ischemic cardiomyopathy Procedures Follow Up In Cardiology Rosemary Cartagena MD [address] [facility] [address] [place] [address] Rosemary Cartagena MD [address] [facility] [address] [place] [address] Referral ID Status Reason Start Date Expiration Date V isits Requested Visits Authorized [id number] Authorized 08/30/2023 08/29/2024 1 1 Reason Comments Follow-up 6 week per GM Specialty Diagnoses / Procedures Referred By Contac t Referred To Contact Cardiology Diagnoses Permanent atrial fibrillation (CMS/HCC) Ischemic cardiomyopathy ICD (implantable cardioverter-defibrillator) in place 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 Procedures Follow Up In Cardiology Rosemary Cartagena MD [address] [facility] [address] [place] [address] [facility] 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 [address] [facility] [address], [facility] [address] [place] [address] Referral ID Status Reason Start Date Expiration Date V isits Requested Visits Authorized [id number] Authorized 10/25/2023 10/24/2024 1 1 Reason Comments Follow-up 2w Specialty Diagnoses / Procedures Referred By Contac t Referred To Contact Cardiology Diagnoses Ischemic cardiomyopathy Procedures Follow Up In Cardiology [facility], 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 [address] [facility] [address], [address] [place] [address] Referral ID Status Reason Start Date Expiration Date V isits Requested Visits Authorized [id number] Authorized 12/06/2023 12/05/2024 1 1 Reason Comments Back Pain Memory Loss Reason Comments Back Pain Parkinson's Disease Reason Comments Follow-up 3 month Specialty Diagnoses / Procedures Referred By Contac t Referred To Contact Cardiology Diagnoses Congestive heart failure, NYHA class 3, chronic, systolic Procedures Follow Up In Cardiology Rosemary Cartagena MD [address] [address] Phone: tel: fax: Rosemary Cartagena MD [address] [place] [address] Phone: tel: fax: Referral ID Status Reason Start Date Expiration Date V isits Requested Visits Authorized [id number] Authorized 04/24/2024 04/24/2025 1 1 Reason Comments Follow-up 4m with sp Specialty Diagnoses / Procedures Referred By Contac t Referred To Contact Cardiology Diagnoses Permanent atrial fibrillation (Multi) Ischemic cardiomyopathy ICD (implantable cardioverter-defibrillator) in place 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 Procedures Follow Up In Cardiology Rosemary Cartagena MD [address] [place] [address] Rosemary Cartagena MD [address] [place] [address] Referral ID Status Reason Start Date Expiration Date V isits Requested Visits Authorized [id number] Authorized 10/25/2023 10/24/2024 1 1 Care Teams (unrecognized sec tion and content) Team Status: Active Member Role Status Dates Shanique Anderson DO Primary Care Provider Active Team Status: Inactive Member Role Status Dates Shanique Anderson DO Primary Care Provider, Attending Hilary rockwell Active Side Stapler Relationship Specialty Start Date End Date Shanique Anderson DO [address] [place] [address] PCP - General Family Medicine 08/30/23 Team Status: Inactive Member Role Status Dates Shanique Anderson DO Primary Care Provider Active Rosemary Cartagena MD Attending Provider Active Side Stapler Relationship Specialty Start Date End Date Shanique Anderson DO [address] [place] [address] PCP - General Family Medicine 08/30/23 Side Stapler Relationship Specialty Start Date End Date Shanique Anderson DO [address] [place] [address] PCP - General Family Medicine 08/30/23 Team Status: Inactive Member Role Status Dates Shanique Anderson DO Primary Care Provider Active Start: December 03, 2023 End: December 03, 2023 Rosemary Cartagena MD Attending Provider Active Star t: December 03, 2023 End: December 03, 2023 Side Stapler Relationship Specialty Start Date End Date Shanique Anderson DO [address] [place] [address] PCP - General [facility] Medicine 08/30/23 Side Stapler Relationship Specialty Start Date End Date Shanique Anderson DO [address] [place] [address] PCP - General Family Medicine 08/30/23 Team Status: Inactive Member Role Status Dates Shanique Anderson DO Primary Care Provider Active Start: February 18, 2024 End: February 18, 2024 Viky Rollins PA-C Attending Provider Active Sta rt: February 18, 2024 End: February 18, 2024 [facility] APRN Other Provider Active Start : February 18, 2024 End: February 18, 2024 Team Status: Inactive Member Role Status Dates Shanique Anderson DO Primary Care Provider Active Start: March 06, 2024 End: March 06, 2024 Rosemary Cartagena MD Attending Provider Active Star t: March 06, 2024 End: March 06, 2024 Team Status: Inactive Member Role Status Dates Shanique Anderson DO Primary Care Provider Active Start: April 03, 2024 End: April 03, 2024 Alexei Van MD Attending Provider Active S tart: April 03, 2024 End: April 03, 2024 Team Status: Inactive Member Role Status Dates Shanique Anderson DO Primary Care Provider Active Start: May 10, 2024 End: May 10, 2024 Rosemary Cartagena MD Attending Provider Active Star t: May 10, 2024 End: May 10, 2024 Team Status: Inactive Member Role Status Dates Shanique Anderson DO Primary Care Provider Active Start: June 07, 2024 End: June 07, 2024 Rosemary Cartagena MD Attending Provider Active Star t: June 07, 2024 End: June 07, 2024 Side Stapler Relationship Specialty Start Date End Date Unallocated, Heidy Vaughan MD [facility] [place] [address] PCP - General Family Medicine 12/06/23 Viky Rollins PA [address] [place] [address] Physician Compugraph Operator Neurology 12/06/23 Side Stapler Relationship Specialty Start Date End Date Unallocated, Heidy Vaughan MD [facility] [place] [address] PCP - General Family Medicine 12/06/23 Viky Rollins PA [address] [place] [address] Physician Compugraph Operator Neurology 12/06/23 Team Status: Active Member Role Status Dates Shanique Anderson DO Primary Care Provider Active Start: June 07, 2024 Rosemary Cartagena MD Other Provider Active Start: Hunter nix 2023 Tex Carranza MD Attending Provider Active Start: June 07, 2024 Team Status: Inactive Member Role Status Dates Shanique Anderson DO Primary Care Provider Active Start: June 29, 2024 End: June 29, 2024 Viky Rollins PA-C Attending Provider Active Sta rt: June 29, 2024 End: June 29, 2024 Side Stapler Relationship Specialty Start Date End Date Unallocated, Heidy Vaughan MD [facility] [place] [address] PCP - General Family Medicine 12/06/23 Viky Rollins PA [address] [place], [place] [id number] Physician Compugraph Operator Neurology 12/06/23 Side Stapler Relationship Specialty Start Date End Date Unallocated, Heidy Vaughan MD [address] [place] [address] PCP - General Family Medicine 12/06/23 Viky Rollins PA [address] [place] [address] Physician Compugraph Operator Neurology 12/06/23 Side Stapler Relationship Specialty Start Date End Date Shanique Anderson DO [address] [place] [address] PCP - General Family Medicine 08/30/23 Side Stapler Relationship Specialty Start Date End Date Shanique Anderson MD [address] [place] [phone] PCP - General Family Medicine 08/24/24 Viky Rollins PA [address] [address] Physician Compugraph Operator Neurology 12/06/23 Side Stapler Relationship Specialty Start Date End Date Shanique Anderson, [address] [place] [address] PCP - General Family Medicine 08/30/23 Side Stapler Relationship Specialty Start Date End Date Shanique Anderson MD [address] [place] [phone] PCP - General Family Medicine 08/24/24 Viky Rollins PA [address] [place] [id number] Physician Compugraph Operator Neurology 12/06/23 Goals (unrecognized section and content) Goals may [...] BE BASED ON THE PRIMARY CLINICAL RECORDS. [employer] provides no warranty or guarantee of the accuracy or completeness of information in this document.
[2024-09-01 12:50] LABS: Percent Iron Saturation 40.5 %
[2024-09-02 08:09] LABS: Transferrin 186 mg/dL (149-313)
== END 2024-09-01 11:28 | disposition home or self-care (01) ==
LOC: LAB 11:29
PROVIDERS: PCP Family Medicine; Visit Provider Physician Assistant Medical
DX: G47.61 Periodic limb movement disorder (principal)
CPT/HCPCS: 36415; 83540; 83550; 84466

== ENCOUNTER 2024-09-01 11:39 | Outpatient (OUT) | payer MEDICARE, OTHER, SELFPAY ==
[2024-09-01 12:46] LABS: BUN Creatinine Ratio 26.7; Calcium 9.3 mg/dL (8.5-10.1); Carbon Dioxide 30.6 mmol/L (21.0-32.0); Chloride 105 mmol/L (98-107); Estimated GFR (African America 47 (>=60 mL/min/1.73m^2); Estimated GFR (Non-African Ame 38 (>=60 mL/min/1.73m^2); Glucose 173 mg/dL (74-106); Potassium 4.6 mmol/L (3.5-5.1); Sodium 140 mmol/L (136-145)
== END 2024-09-01 11:40 | disposition home or self-care (01) ==
LOC: LAB 11:42
PROVIDERS: PCP Family Medicine; Visit Provider Internal Medicine Interventional Cardiology
DX: G47.61 Periodic limb movement disorder (principal); I10 Essential (primary) hypertension
CPT/HCPCS: 36415; 80048; 83540; 83550; 84466

== ENCOUNTER 2024-10-13 12:15 | Outpatient (OUT) | payer MEDICARE, OTHER, SELFPAY ==
--- OUTSIDE RECORDS SUMMARY | 2024-10-13 12:24 | XMS_ITS | CCD ---
Author Organization [facility] Care Team Providers Care End Worker Name Role Phone FABIANO WILL Unavailable Unavailable BRISTOL, SHANIQUE E Unavailable Unavailable Morton, Gattman E Primary Care Provider RAÚL VALE Referring Unavailable BRISTOL, SHANIQUE E [...] Unavailable DO Shanique Anderson Primary Care Provider DO Shanique Anderson Attending Provider Shanique Anderson DO Primary Care Prov ider DO Shanique Anderson Primary Care Provider MD Rosemary Cartagena Attending Provider Morton, DO Shanique Primary Care Provider MD Rosemary Cartagena Attending Provider ROBERT Rollins Attending Provider MARISEL Heart Other Provider [phone] Morton, DO Shanique Primary Care Provider MD Rosemary Cartagena Attending Provider JUSTIN SHANIQUE Primary Care Physician [phone] ROSEMARY CARTAGENA Referring Unavailable BRISTOL, SHANIQUE SHRADDHA TERESO Primary Care Unav ailable Morton, DO Gattman Primary Care Provider MD Rosemary Cartagena Attending Provider Unallocated , William Provider Primary [facility] Viky Sage Unavailable ROBERT Rollins Attending Provider [phone] Shanique Anderson MD Primary Care Provider VIKY ROLLINS Attending Unavailable VIKY ROLLINS Attending Unavailable VIKY ROLLINS Attending Unavailable VIKY ROLLINS Attending Unavailable VIKY ROLLINS Attending Unavailable UNALLOCATED, NOMS PROVIDER Referring Unava ilable ROSEMARY CARTAGENA Attending Unavailable VIJAY CARTAGENAA Referring Unavailable BRISTOL, SHANIQUEIVORY LLANES TERESO Primary Care Unav ailable [facility] Attending Unavailable VIJAY CARTAGENAA Referring Unavailable BRISTOL, SHANIQUE SHRADDHA TERESO Primary Care Unav ailable [facility] Attending Unavailable HEART, [facility] K Referring Unavailable BRISTOL, SAHNIQUE SHRADDHA TERESO Primary Care Unav ailable EVANS [facility] K Attending Unavailable HEART, HOSEA K Referring Unavailable BRISTOL, SHANIQUE SHRADDHA TERESO Primary Care Unav ailable ROSEMARY CARTAGENA Attending Unavailable CARTAGENA, ROSEMARY Referring Unavailable BRISTOL, SHANIQUE SHRADDHA TERESO Primary Care Unav ailable ROSEMARY CARTAGENA Attending Unavailable CARTAGENA, ROSEMARY Referring Unavailable BRISTOL, SHANIQUE SHRADDHA TERESO Primary Care Unav ailable ROSEMARY CARTAGENA Attending Unavailable BRISTOL, SHANIQUE SHRADDHA TERESO Primary Care Unav ailable Cartagena, Rosemary Attending Unavailable Cartagena, Rosemary Admitting Unavailable Morton, Gattman Primary Care Unavailable Cartagena, Rosemary Attending Unavailable Cartagena, Rosemary Admitting Unavailable Morton, Gattman Primary Care Unavailable Morton, Gattman Primary Care Unavailable Cartagena, Rosemary Attending Unavailable Cartagena, Rosemary Admitting Unavailable Morton, Gattman Primary Care Unavailable Lowe, Viky Admitting Unavailable Lowmaciej Viky Attending Unavailable [facility] Unavailable Morton, Shaniuqe Primary Care Unavailable Cartagena, Rosemary Attending Unavailable Cartagena, Rosemary Admitting Unavailable Morton, Gattman Primary Care Unavailable Cartagena, Rosemary Admitting Unavailable Cartagena, Rosemary Attending Unavailable Morton, Shanique Primary Care Unavailable Osiel, Rosemary Attending Unavailable Cartagena, Rosemary Admitting Unavailable Lowe, Viky Admitting Unavailable Mayank Rollinsa Attending Unavailable Morton, Gattman Primary Care Unavailable Petr PAINTING Attending Unavailable Ormike, Anabel Anthony Attending Unavailable Anabel Salinas Attending Unavailable Petr PAINTING Admitting Unavailable Petr PAINTING Attending Unavailable Petr PAINTING Referring Unavailable Petr PAINTING Attending Unavailable ROBERT TANNER Attending Unavailab FABIANO Rae Attending Unavailable BRISTOL, SHANIQUE SHRADDHA TERESO Primary Care Unav ailable ROSEMARY CARTAGENA Referring Unavailable FABIANO PICKERING Admitting Unavailable FABIANO PICKERING Attending Unavailable BRISTOL, SHANIQUE SHRADDHA TERESO Primary Care Unav ailable Unavailable Unavailable Unavailable Allergies Allergy Classification Reported Allergen(s) Allergy Type Date of Onset Reaction(s) Facility canagliflozin (2 sources) canagliflozin Drug Allergy 04-01-20 Unknown Reaction [facility] exenatide (2 sources) exenatide Drug Allergy 04-01-20 23 Unknown Reaction [facility] fexofenadine (2 sources) fexofenadine Drug Allergy 04-01-20 Hives [facility] liraglutide (2 sources) liraglutide Drug Allergy 04-01-20 Unknown Reaction [facility] NSAIDs (2 sources) Ibuprofen Drug Allergy 04-01-20 23 Unknown Reaction [facility] Opioid Agonists (6 sources) Codeine Drug Allergy 08-28-20 Hallucinating, Sweat [facility] rOPINIRole (2 sources) rOPINIRole Drug Allergy 07-20-20 23 Unknown Reaction [facility] SITagliptin (2 sources) SITagliptin Drug Allergy 04-01-20 23 Unknown Reaction [facility] (1 source) Acetaminophen / oxyCODONE Drug Allergy 07-27-20 16 Other (See Comments) [place] (20 sources) Codeine; Translations: [codeine] Drug Allergy 12-17-19 10 Other (See Comments), Unknown, Unknown (qualifier value) [place] (20 sources) exenatide; Translations: [exenatide] Drug Allergy 04-08-20 16 Unknown, Unknown (qualifier value) [place] (10 sources) fexofenadine; Translations: [fexofenadine] Drug Allergy 02-04-20 12 Itching, Unknown, Unknown (qualifier value) [place] (1 source) fexofenadine Drug Allergy 07-27-20 16 [place] (18 sources) Ibuprofen Drug Allergy 04-04-20 18 Unknown Reaction, Unknown [place] (20 sources) liraglutide; Translations: [liraglutide] Drug Allergy 12-03-19 17 Unknown, Unknown (qualifier value) [place] (7 sources) Meperidine; Translations: [Demerol] Drug Allergy 02-04-20 12 Swelling, Bilateral upper limb edema [place] (9 sources) SITagliptin Drug Allergy 05-06-20 15 Unknown Reaction [place] (1 source) Other Propensity to adverse reactions 05-06-20 15 [place] (11 sources) fexofenadine; Translations: [FEXOFENADINE] Drug Allergy 08-28-20 21 Hives [facility] (20 sources) Meperidine; Translations: [meperidine] Drug Allergy 08-28-20 21 [facility] (10 sources) Morphine; Translations: [morphine] Drug Allergy 08-28-20 21 Hallucinating [facility] (20 sources) canagliflozin; Translations: [CANAGLIFLOZIN] Drug Allergy 08-28-20 21 Unknown [facility] (20 sources) Codeine Drug Allergy Unknown [employer] Other (20 sources) fexofenadine; Translations: [Hermila] Drug Allergy 06-12-20 15 Unknown [facility] (15 sources) Ibuprofen Drug Allergy Unknown [facility] Other (20 sources) rOPINIRole Drug Allergy Unknown [facility] Other (20 sources) SITagliptin Drug Allergy Unknown [facility] Other (1 source) Codeine Drug Allergy 06-12-20 15 [facility] (2 sources) exenatide Drug Allergy [facility] (3 sources) liraglutide; Translations: [Victoza] Drug Allergy [facility] (1 source) SITagliptin Drug Allergy 08-24-20 15 [facility] (9 sources) rOPINIRole; Translations: [ropinirole] Drug Allergy 08-28-20 21 Unknown Reaction [facility] (5 sources) canagliflozin; Translations: [canagliflozin] Drug Allergy Unknown (qualifier value) [facility] (7 sources) Fish Oils; Translations: [FISH OIL] Drug Allergy 04-24-[address] [facility] (10 sources) fexofenadine / Pseudoephedrine Drug Allergy 06-22-[address] [facility] (10 sources) Meperidine Drug Allergy 08-22-[address] [facility] (1 source) canagliflozin Drug Allergy 04-03-20 [facility] (1 source) Codeine Drug Allergy 04-03-20 [facility] (1 source) exenatide Drug Allergy 04-03-20 [facility] (1 source) Ibuprofen Drug Allergy 04-03-20 [facility] (1 source) liraglutide Drug Allergy 04-03-20 [facility] (1 source) SITagliptin Drug Allergy 04-03-20 [facility] (1 source) [place] Pref[employer] Pen; Translations: [[place] Prefilled Pen] Propensity to adverse reactions (disorder) [facility] Medications Current Medications Medication Drug Class(es) Dates Sig (Normalized) Sig (Original) acetaminophen 500 mg oral tablet (20 sources) Start: 09-11-2021 take 500 mg by mouth twice daily Acetaminophen Active 500 MG PO Twice daily 60 30 September 11, 2021 1:00am Start: 06-12-2019 take [...] 10:18am take 1 tablet by daly every eight hours as needed acetaminophen (Tylenol) 500 MG tablet Take 1 tablet by mouth every 8 (eight) hours if needed Active take 1 capsule by mo ut twice daily as needed Acetaminophen 500 MG 1 capsule as needed Orally twice daily Not-Taking take 1 capsule by mo uth twice daily as needed Acetaminophen 500 MG 1 capsule as needed Orally twice daily Not-Taking Alpha Lipoic Acid (4 sources) Start: 04-25-2024 take 2 tablets by [...] hrs for 10 day(s) Jul, Active amylase 34769 unt / lipase 94246 unt / protease 65336 unt delayed release oral capsule (20 sources) Start: 03-02-2023 take 1 capsule by mouth three times daily Creon 12,000 units oral delayed release capsule = 1 cap(s), Oral, TID, Refills(s) 0 Start Date: 04/25/24 Status: Ordered Start: 03-19-2021 End: 04-03-2024 take 3 capsules by mouth three times daily at mealtime, then take 2 capsules by mouth twice daily Moextr-Qbiuvucv-Rciuubw (Creon) 3,000-9,500- 15,000 unit capsule,delayed release(DR/EC) Active 0 PO As Directed April 03, 2024 11:34am 3 capsules with meals three times a day, 2 capsules with snacks twice a day orally as directed; Start: 04-08-2016 take 2 capsules by m out three times daily Creon 36,000-114,000- 180,000 unit capsule,delayed release(DR/EC) capsule Take 2 capsules by mouth 3 times daily (morning, midday, late afternoon). 04/08/2016 Active amylases 53071 unt / endopeptidases 9500 unt / lipase 3000 unt delayed release oral capsule (1 source) Start: 06-12-2019 take 2 capsules by mouth three times daily at mealtime 2 capsule, Oral, 3 TIMES DAILY WITH MEALS, First dose on 06/12/19 at 1700 Patient may take home supply. apixaban 2.5 mg oral tablet (20 sources) Factor Xa Inhibitor Start: 07-28-2024 End: 09-01-2025 take 1 tablet by mouth twice daily apixaban (Eliquis) 2.5 mg tablet Indications: Permanent atrial fibrillation (Multi) Take 1 tablet (2.5 mg) by mouth 2 times a day. 180 tablet 3 09/01/2024 09/01/2025 Active Start: 12-09-2018 End: 01-30-2025 take 1 tablet by mouth twice daily apixaban 5 mg oral tablet 5 mg = 1 tab(s), Oral, BID, Refills(s) 0 Start Date: 04/25/24 Status: Ordered take 2 tablets by [facility] once daily Eliquis 5 MG as directed Orally 2 tablets once daily Active azelastine hydrochloride 0.137 mg/actuat metered dose nasal spray (10 sources) Histamine-1 Receptor Antagonist Start: 12-20-2023 azelastine (Astelin) 0.1 % nasal spray 12/20/2023 Active Biotin (1 source) take 26091 [IU] by mouth twice daily BIOTIN PO Take 10,000 Units by mouth 2 times daily 0 Active busPIRone hydrochloride 5 mg oral tablet (14 sources) take 1 tablet by mouth twice daily busPIRone (Buspar) 5 mg tablet Take 1 tablet (5 mg) by mouth 2 times a day. Active Calcium Carb-Cholecalciferol (CALCIUM CARBONATE-VITAMIN D3 PO) (10 sources) take 1 capsule by mouth in the morning Calcium Carb-Cholecalcif neela (CALCIUM CARBONATE-VITAMI N D3 PO) Take 1 capsule by mouth in the morning. Active calcium carbonate 1250 mg / cholecalciferol 200 unt oral tablet (17 sources) Vitamin D Start: 04-25-2024 take 1 tablet by mouth twice daily calcium (as carbonate)-vitam in D 500 mg-200 intl units oral tablet 1 tab(s), Oral, BID, Refill(s) 0 Start Date: 04/25/24 Status: Ordered Start: 09-14-2023 take 1 tablet by [facility] once daily Calcium Carb-Cholecalciferol (OYSCO 500 + D) 500-5 MG-MCG tablet Take 1 tablet by mouth Daily 09/14/2023 Active Start: 06-12-2019 take 1 tablet by [facility] twice daily at mealtime 1 tablet, Oral, 2 TIMES DAILY WITH MEALS, First dose on Wed06/12/19 at 1700 Patient may take home supply. Start: 03-07-2019 take 1 tablet by daly at lunch Calcium Carbonate-Vitamin D3 Active 1 [...] Start: 09-11-2021 take 2 tablets by mo [facility] once daily Calcium Carbonate-Vitamin D3 ([place] Calcium-Vit D3) 500 mg-5 mcg (200 unit) Tablet Active 2 TAB PO Daily 60 September 11, 2021 1:00am CALCIUM CARBONATE-VITAMIN D3 ORAL (10 sources) take 1 capsule by mouth twice [...] alpha-Adrenergic [place], beta-Adrenergic [place] Start: 11-15-2023 End: 09-01-2025 take 1 tablet by mouth twice daily [...] Start: 03-07-2019 take 3000 [IU] by mo [facility] once daily Cholecalciferol (Vitamin D3) Active 3000 UNIT Oral Daily with supper March 07, 2019 6:55pm Start: 03-07-2019 End: 09-11-2021 take 3 tablets by mouth once daily Cholecalciferol (Vitamin D3) (Vitamin D3) 1,000 unit Tablet Discontinued 3000 UNIT PO Daily with supper March 07, 2019 12:00am September 11, 2021 10:18am take 1 tablet by [facility] once daily cholecalciferol (Vitamin D-3) 5,000 Units tablet Take 1 tablet (5,000 Units) by mouth once daily. Active take 3 tablets by [facility] every twenty-four hours Vitamin D3 25 MCG (1000 UT) 3 tablet Orally Once a day Active ciprofloxacin 500 mg oral tablet (3 sources) Quinolone Antimicrobial Start: 05-01-2024 Cipro 500 mg Tab See Instructions, Take 1 tab day prior to procedure and 1 tab day of procdure - afterwards, # 2 tab(s), Refills(s) 0, Pharmacy: [facility]/pharmacy #[id number], 167, cm, 04/25/24 13:59:00 EDT, Height/Length Dosing, 72, kg, 04/25/24 13:59:00 EDT, Weight Dosing Start Date: 05/01/24 Status: Ordered clopidogrel 75 mg oral tablet (20 sources) P2Y12 Platelet Inhibitor Start: 05-07-2015 End: 09-01-2025 take 1 tablet by mouth once daily clopidogrel 75 mg Tab 75 mg = 1 tab(s), Oral, Daily, Refills(s) 0 Start Date: 04/25/24 Status: Ordered Creon 13398 UNIT (20 sources) Creon 29989 UNIT 3 WITH MEALS 2 WITH SNACK Orally three times daily for 90 day(s) Active Creon 81530 UNIT 2 WITH MEALS 1 WITH SNACK [...] 10/25/2023 Discontinued (Therapy completed) DAILY MULTI-VITAMIN ORAL (10 sources) take 1 capsule by mo uth [...] Benzodiazepine Start: 03-04-2023 End: 09-11-2024 take 1 mg by mouth [...] bedtime Active digoxin 0.125 mg oral tablet (20 sources) Cardiac Glycoside Start: 10-25-2023 End: 09-01-2025 take 1 tablet by mouth once daily digoxin (Lanoxin) 125 MCG tablet Indications: 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 Take 1 tablet (125 mcg) by mouth once daily. 90 tablet 3 09/01/2024 09/01/2025 Active Start: 03-07-2019 End: 08-28-2021 take 125 [...] CLEANUP) donepezil hydrochloride 5 mg oral tablet (13 sources) Start: 09-20-2023 donepezil (Aricept) 5 MG [...] Start: 01-06-2018 take 1 tablet by daly once daily at bedtime famotidine (Pepcid) 20 mg tablet Take 1 tablet (20 mg) by mouth once daily at bedtime. 01/06/2018 Active Start: 01-06-2018 take 1 tablet by daly [...] (20 sources) Loop Diuretic Start: 12-22-2023 End: 09-01-2025 take 1 tablet by mouth once daily [...] (3 sources) Start: 06-12-2019 15 g, Oral, SD N, Low blood sugar, Starting Wed06/12/19 at [...] 03, 2024 11:24am inject 25 [IU] by rothman bcutaneous injection at mealtime insulin glargine (Lantus) [...] Ordered Start: 08-12-2023 take 1 capsule by [facility] once daily loperamide (Imodium) 2 mg capsule Take 1 capsule (2 mg) by mouth once daily. 08/12/2023 Active Start: 08-31-2022 take 1 capsule by [facility] every six hours Imodium A-D [...] 04/25/24 Status: Ordered take 1 capsule by [facility] once daily Loratadine 10 MG [...] mg extended release oral capsule (20 sources) J-rbgzuq-Z-aspartate Receptor Antagonist Start: 12-28-2022 End: 10-11-2024 take 1 capsule by mouth once daily memantine 28 mg oral capsule, extended release 28 mg = 1 cap(s), Oral, Daily, Refills(s) 0 Start Date: 04/25/24 Status: Ordered Start: 06-12-2019 take 28 mg by mouth [...] mirabegron 50 mg extended release oral tablet (3 sources) beta3-Adrenergic Agonist Start: 06-15-2024 take 1 tablet by mouth once daily Myrbetriq 50 mg oral tablet, extended release 50 mg = 1 tab(s), Oral, Daily, # 30 tab(s), Refills(s) 11, Pharmacy: [facility]/pharmacy #[id number], 167, cm, 06/15/24 10:14:00 EDT, Height/Length Dosing, 72, kg, 06/15/24 10:14:00 EDT, Weight Dosing Start Date: 06/15/24 Status: Ordered Mometasone (5 sources) Corticosteroid Start: 04-25-2024 take 50 ug by inhalation twice daily mometasone 50 mcg, Inhalation, BID, Refills(s) 0 Start Date: 04/25/24 Status: Ordered mometasone (NASO NEX) 50 MCG/ACT nasal spray 2 sprays by Nasal route daily 0 Active Multivitamin preparation (20 sources) Multivitamin - a s directed Orally Once a day Active multivitamin with minerals (Cerovite) 18-400 mg-mcg tablet tablet (10 sources) take 1 capsule by mouth in the morning multivitamin with minerals (Cerovite) 18-400 mg-mcg tablet tablet Take 1 capsule by mouth in the morning. Active Multivitamins and Minerals (4 sources) Start: 4 Multivitamins and Minerals Daily, [...] SL tablet Indications: Coronary artery disease involving [place] coronary artery of [place] heart without angina pectoris Place 1 tablet (0.4 mg) under the tongue every 5 minutes if needed for chest pain (Report to the ER or call 911 after third dose.) for up to 25 days. 15 tablet 1 09/01/2024 Active Start: 06-12-2019 0.4 mg, [place] gual, [...] Vomiting, Starting Wed06/12/19 at 1457, Recovery(Cath) Pancrelipase, Gew-Ojzh-Xprn, (CREON PO) (1 source) take 2 capsules by mouth three times daily at mealtime Pancrelipase, Dbq-Lyqi-Jjol, (CREON PO) Take 2 capsules by mouth [...] 0 Active perphenazine 2 mg oral tablet (14 sources) Phenothiazine take 1 tablet by mouth once daily at bedtime perphenazine 2 mg tablet Take 1 tablet (2 mg) by mouth once daily at bedtime. Active polyethylene glycol 3350 95929 mg powder for oral solution (20 sources) Osmotic Laxative Start: End: Polyethylene Glycol 3350 (Miralax) 17 gram powder in packet Active 17 GM PO Twice daily April 03, 2024 11:23am take 17 g by mouth once daily Mi raLax 17 GM/SCOOP as directed Orally Once a day Not-Taking Psyllium (4 sources) Start: 04-25-2024 take 6 g by [...] Active rosuvastatin calcium 5 mg oral tablet (5 sources) HMG-CoA Reductase Inhibitor Start: 04-24-2024 End: 09-01-2025 take 1 tablet by mouth once daily rosuvastatin (Crestor) 5 mg tablet Indications: Coronary artery disease involving [place] coronary artery of [place] heart without angina pectoris Take 1 tablet (5 mg) by mouth once daily. 90 tablet 3 09/01/2024 09/01/2025 Active sacubitril 49 mg / valsartan 51 mg oral tablet (20 sources) Angiotensin 2 Receptor [place] Start: 04-24-2024 End: 09-01-2025 take [id number] 82147 mg by mouth in the evening sacubitriL-valsartan (Entresto) 24-26 mg tablet Indications: Congestive heart failure, NYHA class 3, chronic, systolic , Ischemic cardiomyopathy Take 1 tablet by mouth early in the morning.. Take the 49/51mg tablet in the evening 90 tablet 3 09/01/2024 09/01/2025 Active Start: 04-24-2024 End: 09-01-2025 take 1 tablet by mouth once daily at bedtime sacubitriL-valsartan (Entresto) 49-51 mg tablet Indications: Congestive heart failure, NYHA class 3, chronic, systolic Take 1 tablet by mouth once daily at bedtime. 90 tablet 3 09/01/2024 09/01/2025 Active Start: 10-25-2023 End: 12-05-2024 take 1 tablet [...] take 1 capsule by mouth once daily tamsulosin (Flomax) 0.4 mg 24 hr capsule Take 1 capsule (0.4 mg) by mouth once daily. 06/03/2018 Active Start: 06-03-2018 take 0.4 mg by mouth [...] supply. traZODone hydrochloride 50 mg oral tablet (18 sources) Serotonin Reuptake Inhibitor Start: 2023 take [...] Daily with supper 0 Active Vitamin D3 325077 UNIT/GM (6 sources) Vitamin D3 31489 0 UNIT/GM as directed Orally Once a [...] 2 TIMES DAILY 8&2, First dose on 06/12/19 at 1545 Patient may take home supply. [...] 2021 2:19pm take 1 tablet by daly th every twenty-four hours Lisinopril 5 MG 1 tablet Orally Once a day Active End: 06-12-2019 take 2.5 mg by mouth once daily lisinopril (PRINIVIL;Z ESTRIL) 5 MG tablet Take 2.5 mg by mouth nightly 0 06/12/2019 Discontinued (LIST CLEANUP) MiraLax 17 GM/SCOOP (1 source) take 17 g by mouth once daily MiraLax 17 GM/SCOOP as directed Orally Once a day Not-Taking omega 0-bnk-eub-fish oil (Fish OiL) 1,000 mg (120 mg-180 mg) capsule (1 source) End: 04-24-2024 take 2 capsules by mouth in the morning omega 0-mya-cnk-fish oil (Fish OiL) 1,000 mg (120 mg-180 mg) capsule Take 2 capsules (2,000 mg) by mouth early in the morning.. 04/24/2024 Discontinued (Side effects) Potassium Chloride (20 sources) Start: 04-25-2024 take 1 tablet by mouth once daily Potassium Chloride (Yxk-Ilex-Lkg 10) 10 mEq oral tablet, extended release 10 mEq = 1 tab(s), Oral, Daily, Refills(s) 0 Start Date: 04/25/24 Status: Ordered Start: 12-22-2023 End: 09-01-2025 take 1 tablet by mouth once daily potassium chloride CR (Klor-Con) 10 mEq ER tablet Indications: Ischemic cardiomyopathy Take 1 tablet (10 mEq) by mouth once daily. Do not crush, chew, or split. 90 tablet 3 09/01/2024 09/01/2025 Active Start: 06-12-2019 10 mEq, Oral, DAILY [...] of daily living] 09-04-2021 Episodic Anxiety disorders (20 sources) Posttraumatic stress disorder; Translations: [Anxiety] Onset: 01-24-2024 10-04-2013 Chronic Calculus of urinary tract (8 sources) Kidney stone; Translations: [History of calculus of kidney] Onset: 04-02-2015 04-02-2015 Episodic Cancer of prostate (14 sources) Malignant tumor of prostate; Translations: [Malignant neoplasm of prostate] Onset: 07-24-2019 10-25-2023 Chronic Cancer of prostate (18 sources) History of malignant neoplasm of prostate; Translations: [Personal history of malignant neoplasm of prostate] Onset: 04-02-2015 04-02-2015 Episodic Cardiac dysrhythmias (20 sources) Paroxysmal atrial fibrillation; Translations: [Atrial fibrillation] Onset: 12-03-2017 12-03-2017 Chronic Chronic kidney disease (19 sources) Chronic kidney disease; Translations: [Chronic kidney disease, unspecified] Onset: 04-24-2024 09-04-2021 Chronic Chronic kidney disease (2 sources) Chronic kidney disease; Translations: [Chronic kidney disease, stage 3b (Multi)] Onset: 04-24-2024 Chronic obstructive pulmonary disease and bronchiectasis (5 sources) Chronic obstructive lung disease; Translations: [COPD [...] 08-30-2023 12-03-2017 Chronic Deficiency and other anemia (4 sources) Anemia 04-19-2024 Episodic Delirium, dementia, and [...] 12-03-2017 12-03-2017 Chronic Disorders of lipid metabolism (8 sources) Hypercholesterolemia; Translations: [Mixed hyperlipidemia] 04-19-2024 Chronic 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 (19 sources) Hypertensive disorder; Translations: [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] Onset: 10-25-2023 10-25-2023 Chronic Fluid and electrolyte disorders (10 sources) Hypokalemia; Translations: [Hypokalemia] 09-04-2021 Episodic Genitourinary symptoms and ill-defined conditions (7 sources) Urge incontinence of urine; Translations: [Unspecified urinary incontinence] Onset: 04-02-2015 04-02-2015 Chronic Headache; including migraine (4 sources) Chronic post-traumatic headache; Translations: [Chronic post-traumatic headache, not intractable] 06-13-2024 Chronic Headache; including migraine (14 sources) Headache; Translations: [Headache] Onset: 01-24-2024 04-25-2024 Episodic Heart valve disorders (13 sources) Non-rheumatic mitral regurgitation ; Translations: [Nonrheumatic mitral (valve) insufficiency] Onset: 04-24-2024 04-24-2024 Chronic Hyperplasia of prostate (20 sources) Benign prostatic hypertrophy with outflow obstruction; Translations: [Benign prostatic hyperplasia] Onset: 04-02-2015 06-26-2017 Chronic Malaise and fatigue (15 sources) Weakness; Translations: [Asthenia] Onset: 09-18-2021 Episodic Miscellaneous mental health disorders (10 sources) Chronic insomnia; Translations: [Psychophysiologic insomnia] Onset: 01-24-2024 01-24-2024 Chronic Mood disorders (20 sources) Bipolar affective disorder, currently manic, severe, with psychosis; Translations: [Bipolar disorder, current episode manic severe with psychotic features] Onset: 10-25-2023 10-25-2023 Chronic Nutritional deficiencies (14 sources) Vitamin D deficiency; Translations: [Vitamin D deficiency, unspecified] Onset: 01-24-2024 04-19-2024 Chronic Osteoarthritis (5 sources) Osteoarthritis; Translations: [Arthritis] Onset: 10-04-2013 04-19-2024 Chronic Osteoporosis (13 sources) Senile osteoporosis; Translations: [Age-related osteoporosis without current pathological fracture] Onset: 07-24-2021 Resolved: 07-24-2021 Chronic Other acquired deformities (12 sources) Lumbar spondylolisthesis; Translations: [Spondylolisthesis, lumbar region] Episodic Other aftercare (20 sources) Long-term current use of anticoagulant; 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) use of anticoagulants] Onset: 08-30-2023 09-04-2021 Episodic Other aftercare (1 source) Treatment changed; Translations: [Other moth exterminator (current) drug therapy] 10-25-2023 Episodic Other aftercare (1 source) Long-term current use of drug therapy; 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) use of antithrombotics/antip latelets] Onset: 07-25-2024 Episodic Other aftercare (4 sources) [facility] (current) use of anticoagulants; Translations: [MCFP (current) use of anticoagulants] Onset: 08-30-2023 Episodic Other and ill-defined heart disease (4 sources) Heart disease 04-19-2024 Chronic Other bone [...] 10-04-2013 12-03-2017 Chronic Other connective tissue disease (7 sources) Recurrent falls ; Translations: [Repeated falls] Onset: 07-27-2024 07-28-2024 Episodic Other connective tissue disease (4 sources) Repeated falls; Translations: [Repeated falls] Onset: 07-27-2024 Episodic Other diseases of kidney and ureters (1 source) Urinary tract obstruction; Translations: [Other obstructive and reflux uropathy] Onset: 06-15-2024 Episodic Other ear and sense organ disorders (14 sources) Hearing loss; Translations: [Unspecified hearing loss, unspecified ear] Onset: 01-24-2024 04-25-2024 Chronic Other ear and sense organ disorders (4 sources) Sensorineural hearing loss, bilateral 04-19-2024 Chronic [...] 04-02-2015 04-02-2015 Chronic Other male genital disorders (4 sources) Secondary erectile dysfunction Onset: 04-02-2015 04-19-2024 [...] Onset: 11-28-2021 Chronic Other nervous system disorders (10 sources) 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; Translations: [Circadian rhythm sleep disorder, unspecified type] Onset: 01-24-2024 01-24-2024 Chronic Other nervous system disorders (10 sources) Lesion of ulnar nerve; Translations: [Lesion of ulnar nerve, unspecified upper limb] Onset: 01-24-2024 01-24-2024 Chronic Other nervous system disorders (2 sources) Hyperreflexia; [...] nutritional; endocrine; and metabolic disorders (7 sources) Body mass index 30+ - obesity; Translations: [Body mass index (BMI) 31.0-31.9, adult] Onset: 12-22-2023 Resolved: 04-24-2024 12-22-2023 Chronic Other nutritional; endocrine; and metabolic disorders (2 sources) Body mass index (BMI) 30.0-30.9, adult; Translations: [Body mass index (BMI) 30.0-30.9, adult] Onset: 09-01-2024 Chronic Other nutritional; endocrine; and metabolic disorders (2 sources) Body mass index (BMI) 31.0-31.9, adult; Translations: [Body mass index (BMI) 31.0-31.9, adult] Onset: 12-22-2023 Chronic Other nutritional; endocrine; and metabolic disorders (3 sources) Weight loss; Translations: [Abnormal weight loss] Onset: 07-27-2024 07-27-2024 Episodic Other nutritional; endocrine; and metabolic disorders (2 sources) Body mass index (BMI) 28.0-28.9, adult; Translations: [Body mass index (BMI) 28.0-28.9, adult] Onset: 07-27-2024 Episodic Other nutritional; endocrine; and metabolic disorders (1 source) Obese class I; Translations: [Obesity (BMI 30.0-34.9)] Onset: 10-04-2013 Pancreatic disorders (not diabetes) (10 sources) Idiopathic chronic pancreatitis; Translations: [Other chronic pancreatitis] Onset: 10-25-2023 10-25-2023 Chronic Pancreatic disorders (not diabetes) (20 sources) Acute pancreatitis; Translations: [Exocrine pancreatic insufficiency] Onset: 03-11-2022 Resolved: 03-11-2022 Episodic Parkinson`s disease (7 sources) Parkinson's disease; Translations: [Parkinson's disease] Onset: 09-22-2021 09-02-2021 Chronic Parkinson`s disease (4 sources) Parkinson`s disease; Translations: [Parkinson's disease without [...] Onset: 08-30-2023 10-25-2023 Chronic Residual codes; unclassified (2 sources) Sleep apnea, unspecified; Translations: [Sleep apnea, unspecified] Onset: 09-02-2023 Chronic Residual codes; unclassified (10 sources) Hypersomnia; Translations: [Hypersomnia, unspecified] Onset: 01-24-2024 01-24-2024 Chronic Residual codes; unclassified (10 sources) Restlessness and agitation; Translations: [Restlessness and agitation] Onset: 01-24-2024 01-24-2024 Chronic Residual codes; unclassified (2 sources) Periodic limb movement disorder; Translations: [Periodic limb movement disorder] 08-24-2024 Chronic Spondylosis; intervertebral disc disorders; other back problems (20 sources) Inflammation of sacroiliac joint; Translations: [Sacroiliitis, not elsewhere classified] Onset: 06-16-2021 Resolved: 09-02-2021 Chronic Spondylosis; intervertebral disc disorders; other back problems (20 sources) Spinal stenosis, lumbar region with neurogenic claudication; Translations: [Spinal stenosis of lumbar region] Onset: 07-24-2021 Resolved: 09-02-2021 Episodic Unclassified (20 sources) Parkinson's disease; Translations: [Parkinson disease] Onset: 08-30-2023 08-30-2023 Chronic Unclassified (6 sources) Permanent atrial fibrillation; Translations: [Permanent atrial fibrillation (Multi)] Onset: 08-30-2023 Unclassified (2 sources) Long-term current use of drug therapy 07-25-2024 Unclassified (2 sources) Acute embolism and thrombosis of right peroneal vein; Translations: [Acute embolism and thrombosis of right peroneal vein (CMS/HCC)] Onset: 10-25-2023 Past or Other Problems Problem Classification Problem Date Documented Da te Episodic/Chronic Acute and unspecified renal failure (4 sources) Acute renal failure syndrome Onset: 4 04-19-2024 Episodic Acute posthemorrhagic anemia (2 sources) Acute posthemorrhagic anemia; Translations: [Anemia associated with acute blood loss] Onset: 4 Episodic Anxiety disorders (10 sources) Feeling irritable; Translations: [Irritability and anger] [...] Translations: [Olegario hematuria] Onset: 4 04-02-2015 Episodic Joint disorders and dislocations; trauma-related (10 sources) Tear of medial meniscus of knee; Translations: [Other tear of medial meniscus, current injury, unspecified knee, initial encounter] Onset: 4 01-24-2024 Episodic Other acquired deformities (2 sources) Spondylolisthesis, lumbar region Onset: 1 Resolved: 1 Episodic Other aftercare (2 sources) Other moth exterminator (current) drug therapy; Translations: [Other moth exterminator (current) drug therapy] Onset: 4 Episodic Other bone disease and musculoskeletal deformities (1 source) Other specified disorders of bone density and structure, other site Onset: 1 Resolved: 1 Episodic Other bone disease and musculoskeletal deformities (14 sources) Osteopenia; Translations: [Other specified disorders of bone density and structure, unspecified site] Onset: 4 04-19-2024 Episodic Other circulatory disease (13 sources) History of cerebrovascular accident; Translations: [Personal [...] Resolved: 2 Episodic Other lower respiratory disease (14 sources) Dyspnea; Translations: [Shortness of breath] Onset: 3 08-30-2023 Episodic Other lower respiratory disease (1 source) Shortness of breath; Translations: [Shortness of breath] Onset: 3 Episodic Other nervous system disorders (18 sources) Abnormal gait; Translations: [Unspecified abnormalities of gait and mobility] Onset: 4 06-07-2024 Episodic Other nervous system disorders (10 sources) Skin sensation disturbance; Translations: [Unspecified disturbances of skin sensation] Onset: 4 01-24-2024 Episodic Other non-traumatic joint disorders (10 sources) Pain in lower limb; Translations: [Pain in unspecified knee] Onset: 4 01-24-2024 Episodic Other nutritional; endocrine; and metabolic disorders (9 sources) Overweight in adulthood with body mass index of 25 or more but less than 30; Translations: [Body mass index (BMI) 29.0-29.9, adult] Onset: 4 12-06-2023 Episodic Other nutritional; endocrine; and metabolic [...] subclavian vein] Onset: 1 Resolved: 1 Episodic Residual codes; unclassified (16 sources) Amnesia; Translations: [Other amnesia] Onset: 4 06-07-2024 Episodic Screening and history of mental health and substance abuse codes (9 sources) Ex-smoker; Translations: [Personal history of nicotine dependence] Onset: 4 07-27-2024 Episodic Unclassified (10 sources) Onset: 3 Resolved: 4 08-30-2023 Results Test Name Value Interpretation Reference Range Facility [facility] 2023 Interpretation and review of laboratory results Abnormal [facility] TB IRON 94 ug/dL 65.0 - 175.0 ug/dL [facility] TB PERCENT IRON SATURATION 40.5 % [facility] TB TOTAL IRON BINDING CAPACITY 232 ug/dL Low 250.0 - 450.0 ug/dL [facility] ECG 12 Leadon 07-30-2024 Please see the EKG r eport as documented on the EKG. [facility] Work Phone: Ambulatory Visit Summaryon 1 09-24-2023 Ambulatory Visit Summary Ambulatory Visit Summary YOANA IBRAHIM :1940 Visit Date:07/25/2024 Ambulatory Visit Instructions Your Diagnosis History of prostate cancer Benign prostatic hyperplasia with outflow obstruction History of kidney stones Urinary incontinence Your Care Team Attending Physician - BARB Salinas APRN, Aurora X Primary Care Physician - SHANIQUE ANDERSON DO [...] 20 mg Tab) potassium chloride (Potassium Chloride (Zka-Qrjh-Zfr 10) 10 mEq oral tablet, extended release) [...] SANCHEZ, Petr Richard Where: [facility] [address] [place] [address]- Medications What How Much When Instructions Unchanged [...] Every day Unchanged potassium chloride (Potassium Chloride (Qsw-Akat-Ztc 10) 10 mEq oral tablet, extended release) [...] receiving van (more content not included)... Normal [facility] Urology Office/Clinic Noteon 07-25-2024 Urology Office/Clinic [...] with voice recognition artificial intelligence software, specifically [employer], [employer] and or [employer]. Substitutions may have occurred due to the [...] prostate) s/p radiation by Dr Galvez in [place] Unsure of year of treatment or initial [...] -PSA rev (more content not included)... Normal [facility] Comment on above: Result Comment: Elec tronically Signed By: BARB Salinas APRN, Aurora X\.fabian\Date and Time Signed: 07/25/24 14:18 EST Operative Reporton Operative Report Operative Report Patient: YOANA IBRAHIM Age: 83 years Sex: Male : 1940 Associated Diagnoses: None Author: Petr PAINTING MD Procedure Operative Information Details: Date/ Time: 06/15/2024 18:01:00. Pre-Op Dx: BPH with obstruction/lower urinary tract symptoms (VRO53-EZ N40.1, Billing Diagnosis, Medical), Chronic radiation cystitis (HYB15-XO N30.40, Billing Diagnosis, Medical), Other obstructive and reflux uropathy (LLN93-CF N13.8, Discharge, Medical), Overactive bladder (HCT78-NB N32.81, Billing Diagnosis, Medical), Personal history of prostate cancer (BRD99-GB Z85.46, Billing Diagnosis, Medical). Post-Op Dx: Same. [...] Will try beta 3 agonists. . Normal [facility] Comment on above: Result Comment: Elec tronically Signed By: Petr PAINTING MD\.br\Date and Time Signed: 07/03/24 18:[address] cervical spine wo conon 1 CT cervical spine wo [facility] Main [place] [id number] CT Scan Report Signed Patient: Yoana Ibrahim MR#: [id number] : 1940 Acct:[id number] Age/Sex: 83 / M ADM Date: 06/29/24 [facility] Room: Type: [facility] Attending Dr: Viky Rollins PA-C Copies to: Viky Rollins PA-C Ordering Provider: Viky Rollins PA-C Date of Service: 06/29/24 CT/CT cervical spine wo con: hyperreflexia, balance issues ([id number]) CT/CT head/brain wo con: balance issues, gait [...] Milan Dickerson M.D.06/29/2024 6:26 PM Dictation Location: [place] [address] Transcribed By: [facility] 06/29/241825 Dictated By: Milan Dickerson II, MD 06/29/241820 Signed By: 06/29/241825 Normal [facility] Inpatient Patient Summaryon 06-15-2024 Inpatient Patient Summary Inpatient Patient Summary [place] [id number] Clinical Summary Person Information Name: YOANA IBRAHIM Age: 83 Years : 1940 Sex: Male PCP: SHANIQUE ANDERSON DO Marital Status: Unknown Race: White Ethnicity: Non- or Language: Romanian Visit Id: Visit Reason: HX OF PROSTATE CANCER, URINARY INCONTINENCE, BPH WITH LUTS Speciality: Acuity: Enc Type: Outpatient Med Service: Surgery Arrival: 06/15/2024 09:54:01 Discharge: Dispo Type: Address: [address] [place] [id number] Provider Notes: Diagnosis: Problems Active Flank pain [...] D deficiency (01/24/2024) Acute kidney injury (10/06/2013) HERBIE (obstructive sleep apnea) Spinal stenosis Pancreatic insufficiency [...] Mouth every day. potassium chloride (Potassium Chloride (Ofc-Czpw-Mmh 10) 10 mEq oral tablet, extended release) [...] an appoint (more content not included)... Normal [facility] Main OR Intraoperative Recor don 06-15-2024 Main OR Intraoperative Record Main OR Intraoperative Record IntraOp Document Type FTURO Summary Primary Physician: Petr PAINTING MD Finalized Date/Time: 06/15/24 10:42:27 Pt. Name: YOANA IBRAHIM/Sex: 1940 Male Med Rec #: [id number] Physician: Petr PAINTING MD Financial #: [id number] Pt. Type: O Room/Bed: / Admit/Disch: 06/15/24 09:54:01 - Institution: Case Times FTURO Entry 1 Patient Times In Room 06/15/24 10:27:00 Out Room 06/15/24 10:42:00 Procedure Times Start 06/15/24 10:34:00 Stop 06/15/24 10:36:00 Anesthesia Times Last Modified By: Jayna Thapa 06/15/24 10:42:17 Case Attendance FTURO Entry 1 Entry 2 Entry 3 Case Attendee Petr PAINTING MD, Kelsie E Troike, Kendall R Role Performed Surgeon - Primary Coat Fitter - Relief Scrub - Primary Time In [...] Position Verified Availability Equipment, Medication Time Out Petr PAINTING MD, Verified (If Participants Jayna Thapa, Applicable) Alfonso [...] Thapa 06/15/24 10:42 Jayna Thapa 06/15/24 10:42 [facility] Main OR Preoperative Recordo n 06-15-2024 Main OR Preoperative Record Main OR Preoperative Record Holding Area Document Type FTURO Summary Primary Physician: Petr PAINTING MD Finalized Date/Time: 06/15/24 10:17:34 Pt. Name: PATRICEYOANA./Sex: 1940 Male Med Rec #: [id number] Physician: Petr PAINTING MD Financial #: [id number] Pt. Type: O Room/Bed: / Admit/Disch: 06/15/24 [...] Complaints of Pain: No Skin Integrity Intact, [place], Warm, & Dry Vitals - EU Blood Pressure 157/68 Pulse 71 bpm Respirations 18 br/min SPO2 98 % Additional None Specimens Collected Last Modified By: Rosita Russell LPN 06/15/24 10:17:30 Finalized By: Rosita Russell LPN Document Signatures Signed By: Rosita Russell LPN 06/15/24 10:17 Normal [facility] Outpatient Surgery Discharge Instructionon 06-15-2024 Outpatient Surgery Discharge Instruction Outpatient Surgery Discharge Instruction [place] [address] Patient Discharge Instructions PERSON INFORMATION Name: YOANA [...] you have a fever over 100 degrees. PATRICE Corey THOMAS J, have received the attached patient education materials/instructions and have verbalized understanding: May we do a follow up call? Yes No I was present when discharge instructions were given Patient Signature ___ Date Clinican/Nurse Signature Date You may receive a survey from Veronica Hartman asking you to rate your care experience. Your feedback is important and will help us understand what we do well and how we can improve the quality of care we provide to you, your loved ones and our community. It?s an honor to serve you. Thank you for choosing [place] Normal [facility] BNP ser/plasOrdered By: Genet Cartagena on 05-10-2024 Natriuretic peptide B (Bld) [Mass/Vol] 252.0 pg/mL High 5-100 [facility] Comment on above: Result Comment: PERF ORMED BY: [place] [address] PATHOLOGIST ANALYTICS LEAD TONEY KWON M.D. Performed By: #### B MP, BNP #### [facility] [address] [place] [address] Basic Metabolic Panelon 04-14 GFR/1.73 sq M.predicted MDRD (S/P/Bld) [Vol rate/Area] 38.632 mL/min/{1.73_m2} Normal [facility] Comment on above: Performed By: #### B MP, BNP #### [facility] [address] [place], [place] [id number] [facility] Calcium [Mass/volume] in Ser um or PlasmaOrdered By: Rosemary Cartagena on 05-10-2024 Calcium [Mass/Vol] 8.6 mg/dL Normal 8.6-10.3 [facility] Comment on above: Result Comment: PERF ORMED BY: [place] [address] PATHOLOGIST ANALYTICS LEAD TONEY KWON M.D. Performed By: #### B MP, BNP #### [facility] [address] [place], [place] [id number] [facility] Carbon dioxide, total [Moles /volume] in Serum or PlasmaOrdered By: Rosemary Cartagena on 05-10-2024 CO2 [Moles/Vol] 29.1 mmol/L Normal 21.0-31.0 [facility] Comment on above: Performed By: #### B MP, BNP #### [facility] [address] [place] [address] [place] Chloride [Moles/volume] in S ric or PlasmaOrdered By: Rosemary Cartagena on 05-10-2024 Chloride [Moles/Vol] 107 mmol/L Normal 98-107 [facility] Comment on above: Performed By: #### B MP, BNP #### [facility] [address] Creatinine [Mass/volume] in Serum or PlasmaOrdered By: Rosemary Cartagena on 05-10-2024 Creatinine [Mass/Vol] 1.75 mg/dL High 0.70-1.30 [facility] Comment on above: Performed By: #### B MP, BNP #### [facility] [address] [place] [address] [place] Glucose [Mass/volume] in Ser um or PlasmaOrdered By: Rosemary Cartagena on 05-10-2024 Glucose [Mass/Vol] 286 mg/dL High 70-100 [facility] Comment on above: ADA recommended refe rence rangeRandom Glucose Reference Range is dependent on time and content of last meal. Glucose of more than 200 mg/dL in a nonstressed, ambulatory subject supports the diagnosis of Diabetes Mellitus. Result Comment: [place] om Glucose Reference Range is dependent on time and content of last meal. Glucose of more than 200 mg/dL in a nonstressed, ambulatory subject supports the diagnosis of Diabetes Mellitus. ADA recommended reference range Performed By: #### B MP, BNP #### [facility] [address] No Panel InformationOrdered By: Rosemary Cartagena on 05-10-2024 Estimated GFR (CKD-EPI) 38.632 mL/Min [facility] Creatinine Clearance (Chem N/A [facility] Potassium [Moles/volume] in Serum or PlasmaOrdered By: Rosemary Cartagena on 05-10-2024 Potassium [Moles/Vol] 4.7 mmol/L Normal 3.5-5.1 [facility] Comment on above: Performed By: #### B MP, BNP #### [address] Serum or plasma anion gap de terminationOrdered By: Rosemary Cartagena on 05-10-2024 Anion gap [Moles/Vol] 11.6 mmol/L Normal 6.0-15.0 [facility] Comment on above: Performed By: #### B MP, BNP #### [address] Sodium [Moles/volume] in Ser um or PlasmaOrdered By: Rosemary Cartagena on 05-10-2024 Sodium [Moles/Vol] 143 mmol/L Normal 136-145 [facility] Comment on above: Performed By: #### B MP, BNP #### [address] Urea nitrogen [Mass/volume] in Serum or PlasmaOrdered By: Rosemary Cartagena on 05-10-2024 Urea nitrogen [Mass/Vol] 38 mg/dL High 04-06 [facility] Comment on above: Performed By: #### B MP, BNP #### [address] Physician Referralon 024 Physician Referral [id number] Normal [facility] Basic Metabolic Panelon GFR/1.73 sq M.predicted MDRD (S/P/Bld) [Vol rate/Area] 42.069 mL/min/{1.73_m2} Normal [facility] Comment on above: Performed By: #### T 3T, A1C WTH eA, CMP, LIPID, TSH3, BNP #### [address] head/brain wo/w conon CT head/brain wo/w con [facility] Main [place] [address] [place] [address] CT Scan Report Signed Patient: Yoana Ibrahim MR#: [id number] : 1940 Acct:[id number] Age/Sex: 83 / M ADM Date: 02/18/24 Loc: CT Room: Type: [facility] Attending Dr: Viky Rollins PA-C Copies to: [...] Mo Collier M.D.02/18/2024 4:25 PM Dictation Location: [place] [address] Transcribed By: [facility] 02/18/24 1625 Dictated By: Mo Collier DO 02/18/24 1621 Signed By: 02/18/24 1625 Normal [facility] Calcium [Mass/volume] in Ser um or PlasmaOrdered By: Hosea Heart on 02-18-2024 Calcium [Mass/Vol] 9.6 mg/dL Normal 8.6-10.3 [facility] Comment on above: Result Comment: PERF ORMED BY: [facility] [address] [facility] [place] [address] PATHOLOGIST ANALYTICS LEAD TONEY KWON M.D. Performed By: #### T 3T, A1C WTH eA, CMP, LIPID, TSH3, BNP #### [facility] [address] [place] [address] [place] Carbon dioxide, total [Moles /volume] in Serum or PlasmaOrdered By: Hosea Heart on 02-18-2024 CO2 [Moles/Vol] 30.8 mmol/L Normal 21.0-31.0 [facility] Comment on above: Performed By: #### T 3T, A1C WTH eA, CMP, LIPID, TSH3, BNP #### [facility] [address] [place] [address] [place] Chloride [Moles/volume] in S ric or PlasmaOrdered By: Hosea Heart on 02-18-2024 Chloride [Moles/Vol] 103 mmol/L Normal 98-107 [facility] Comment on above: Performed By: #### T 3T, A1C WTH eA, CMP, LIPID, TSH3, BNP #### [facility] [address] [place] [address] [place] Creatinine [Mass/volume] in Serum or PlasmaOrdered By: Hosea Heart on 02-18-2024 Creatinine [Mass/Vol] 1.63 mg/dL High 0.70-1.30 [facility] Comment on above: Performed By: #### T 3T, A1C WTH eA, CMP, LIPID, TSH3, BNP #### [facility] [address] [place] [id number] [place] Glucose [Mass/volume] in Ser um or PlasmaOrdered By: Hosea Heart on 02-18-2024 Glucose [Mass/Vol] 165 mg/dL High 70-100 [facility] Comment on above: ADA recommended refe rence rangeRandom Glucose Reference Range is dependent on time and content of last meal. Glucose of more than 200 mg/dL in a nonstressed, ambulatory subject supports the diagnosis of Diabetes Mellitus. Result Comment: [place] om Glucose Reference Range is dependent on time and content of last meal. Glucose of more than 200 mg/dL in a nonstressed, ambulatory subject supports the diagnosis of Diabetes Mellitus. ADA recommended reference range Performed By: #### T 3T, A1C WTH eA, CMP, LIPID, TSH3, BNP #### [facility] [address] No Panel InformationOrdered By: Hosea Heart on 02-18-2024 Estimated GFR (CKD-EPI) 42.069 mL/Min [facility] Creatinine Clearance (Chem N/A [facility] Potassium [Moles/volume] in Serum or PlasmaOrdered By: Hosea Heart on 02-18-2024 Potassium [Moles/Vol] 4.5 mmol/L Normal 3.5-5.1 [facility] Comment on above: Performed By: #### T 3T, A1C WTH eA, CMP, LIPID, TSH3, BNP #### [facility] [address] Serum or plasma anion gap de terminationOrdered By: Hosea Heart on 02-18-2024 Anion gap [Moles/Vol] 10.7 mmol/L Normal 6.0-15.0 [facility] Comment on above: Performed By: #### T 3T, A1C WTH eA, CMP, LIPID, TSH3, BNP #### [facility] [address] Sodium [Moles/volume] in Ser um or PlasmaOrdered By: Hosea Heart on 02-18-2024 Sodium [Moles/Vol] 140 mmol/L Normal 136-145 [facility] Comment on above: Performed By: #### T 3T, A1C WTH eA, CMP, LIPID, TSH3, BNP #### [facility] [address] [place] [address] [place] Urea nitrogen [Mass/volume] in Serum or PlasmaOrdered By: Hosea Heart on 02-18-2024 Urea nitrogen [Mass/Vol] 26 mg/dL High 7-25 [facility] Comment on above: Performed By: #### T 3T, A1C WTH eA, CMP, LIPID, TSH3, BNP #### [facility] [address] A1C with Estimated Average G luon 12-03-2023 Glucose [Mass/Vol] 143 mg/dL Normal [facility] Comment on above: Result Comment: PERF ORMED BY: [place] [address] PATHOLOGIST ANALYT[employer] LEAD TONEY KWON M.D. Performed By: #### T 3T, A1C WTH eA, CMP, LIPID, TSH3, BNP #### [place] [address] [place] Alanine aminotransferase [En zymatic activity/volume] in Serum or PlasmaOrdered By: Rosemary Cartagena on 12-03-2023 ALT [Catalytic activity/Vol] 12 U/L Normal 7-52 [facility] Comment on above: Performed By: #### T 3T, A1C WTH eA, CMP, LIPID, TSH3, BNP #### [facility] [address] [place] [address] [place] Albumin [Mass/volume] in Ser um or Plasma by Bromocresol green (BCG) dye binding methoOrdered By: Rosemary Cartagena on 12-03-2023 Albumin BCG dye [Mass/Vol] 4.1 g/dL 3.5-5.7 [facility] Alkaline phosphatase [Enzyma tic activity/volume] in Serum or PlasmaOrdered By: Rosemary Cartagena on 12-03-2023 ALP [Catalytic activity/Vol] 89 U/L Normal 34-104 [facility] Comment on above: Performed By: #### T 3T, A1C WTH eA, CMP, LIPID, TSH3, BNP #### [facility] [address] [place] [address] Aspartate aminotransferase [ Enzymatic activity/volume] in Serum or PlasmaOrdered By: Rosemary Cartagena on 12-03-2023 AST [Catalytic activity/Vol] 23 U/L Normal 13-39 [facility] Comment on above: Performed By: #### T 3T, A1C WTH eA, CMP, LIPID, TSH3, BNP #### [facility] [address] [place] [address] BNP ser/plasOrdered By: Genet Cartagena on 12-03-2023 Natriuretic peptide B (Bld) [Mass/Vol] 316.0 pg/mL High 5-100 [facility] Comment on above: Result Comment: PERF ORMED BY: [place] [address] PATHOLOGIST [employer]LYT[employer] LEAD TONEY KWON M.D. Performed By: #### T 3T, A1C WTH eA, CMP, LIPID, TSH3, BNP #### [facility] [address] [place] [address] [place] Bilirubin.total [Mass/volume ] in Serum or PlasmaOrdered By: Rosemary Cartagena on 12-03-2023 Bilirubin [Mass/Vol] 0.7 mg/dL Normal 0.3-1.0 [facility] Comment on above: Performed By: #### T 3T, A1C WTH eA, CMP, LIPID, TSH3, BNP #### [facility] [address] [place] [address] [place] Calcium [Mass/volume] in Ser um or PlasmaOrdered By: Rosemary Cartagena on 12-03-2023 Calcium [Mass/Vol] 9.6 mg/dL Normal 8.6-10.3 [facility] Comment on above: Performed By: #### T 3T, A1C WTH eA, CMP, LIPID, TSH3, BNP #### [facility] [address] [place] [address] [place] Carbon dioxide, total [Moles /volume] in Serum or PlasmaOrdered By: Rosemary Cartagena on 12-03-2023 CO2 [Moles/Vol] 34.3 mmol/L High 21.0-31.0 [facility] Comment on above: Performed By: #### T 3T, A1C WTH eA, CMP, LIPID, TSH3, BNP #### [facility] [address] [place] [id number] [place] Chloride [Moles/volume] in S ric or PlasmaOrdered By: Rosemary Cartagena on 12-03-2023 Chloride [Moles/Vol] 103 mmol/L Normal 98-107 [facility] Comment on above: Performed By: #### T 3T, A1C WTH eA, CMP, LIPID, TSH3, BNP #### [facility] [address] [place] [address] [place] Cholesterol [Mass/volume] in Serum or PlasmaOrdered [...] and greater high risk Performed By: #### T 3T, A1C WTH eA, CMP, LIPID, TSH3, BNP #### [facility] [address] [place] [address] [place] Cholesterol in LDL Calc [Mas s/Vol]Ordered By: Rosemary Cartagena on 12-03-2023 Cholesterol in LDL [Mass/Vol] 29 mg/dL 0-100 [facility] Comment on above: LDL ATP III CLASSIFI CATIONLDL less than 100 mg/dL OptimalLDL 100-129 mg/dL Near or above optimalLDL 130-159 mg/dL Borderline highLDL 160-189 mg/dL HighLDL greater than 189 mg/dL Very high Cholesterol in VLDL Calc [Ma ss/Vol]Ordered By: Rosemary Cartagena on 12-03-2023 Cholesterol in VLDL [Mass/Vol] 62 mg/dL [facility] Comprehensive Metabolic Pane yobani 12-03-2023 Albumin [Mass/Vol] 4.1 g/dL Normal 3.5-5.7 [facility] Comment on above: Performed By: #### T 3T, A1C WTH eA, CMP, LIPID, TSH3, BNP #### [facility] [address] [place] [address] [place] GFR/1.73 sq M.predicted MDRD (S/P/Bld) [Vol rate/Area] 58.211 mL/min/{1.73_m2} Normal [facility] Comment on above: Performed By: #### T 3T, A1C WTH eA, CMP, LIPID, TSH3, BNP #### [facility] [address] [place] [address] [place] Creatinine [Mass/volume] in Serum or PlasmaOrdered By: Rosemary Cartagena on 12-03-2023 Creatinine [Mass/Vol] 1.25 mg/dL Normal 0.70-1.30 [facility] Comment on above: Performed By: #### T 3T, A1C WTH eA, CMP, LIPID, TSH3, BNP #### [facility] [address] Glucose [Mass/volume] in Ser um or PlasmaOrdered By: Rosemary Cartagena on 12-03-2023 Glucose [Mass/Vol] 155 mg/dL High 70-100 [facility] Comment on above: ADA recommended refe rence rangeRandom Glucose Reference Range is dependent on time and content of last meal. Glucose of more than 200 mg/dL in a nonstressed, ambulatory subject supports the diagnosis of Diabetes Mellitus. Result Comment: [place] om Glucose Reference Range is dependent on time and content of last meal. Glucose of more than 200 mg/dL in a nonstressed, ambulatory subject supports the diagnosis of Diabetes Mellitus. ADA recommended reference range Performed By: #### T 3T, A1C WTH eA, CMP, LIPID, TSH3, BNP #### [facility] [address] Glucose mean value [Mass/vol ume] in Blood Estimated from glycated hemoglobinOrdered By: Rosemary Cartagena on 12-03-2023 Average glucose Estimated from glycated hemoglobin (Bld) [Mass/Vol] 143 mg/dL [facility] Hemoglobin A1c percentageOrd ered By: Rosemary Cartagena on 12-03-2023 HbA1c (Bld) [Mass fraction] 6.6 % High 4.3-5.6 [facility] Comment on above: Increased risk for d iabetes: 5.7 - 6.4diabetes: >6.4glycemic control for adults with diabetes: <7.0 Result Comment: Incr eased risk for diabetes: 5.7 - 6.4 diabetes: >6.4 glycemic control for adults with diabetes: <7.0 Performed By: #### T 3T, A1C WTH eA, CMP, LIPID, TSH3, BNP #### [facility] [address] [place] [id number] [facility] Lipid Panelon 12-03-2023 LDL Cholesterol,Calculated 29 mg/dL Normal 0-100 [facility] Comment on above: Result Comment: LDL ATP III CLASSIFICATION LDL less than 100 mg/dL Optimal LDL 100-129 mg/dL Near or above optimal LDL 130-159 mg/dL Borderline high LDL 160-189 mg/dL High LDL greater than 189 mg/dL Very high Performed By: #### T 3T, A1C WTH eA, CMP, LIPID, TSH3, BNP #### [facility] [address] [place] [phone] [place] Triglyceride w/Reflex 314 mg/dL High 0-149 [facility] Comment on above: Result Comment: TRIG ATP III CLASSIFICATION TRIG less than 150 mg/dL Normal TRIG 150-199 mg/dL Borderline high TRIG 200-500 mg/dL High TRIG greater than 500 mg/dL Very high Standard traceable to the Center for Disease Conrtrol and Prevention (CDC) test method. Performed By: #### T 3T, A1C WTH eA, CMP, LIPID, TSH3, BNP #### [facility] [address] [place] [address] [place] VLDL CHOLESTEROL 62 mg/dL Normal [facility] Comment on above: Performed By: #### T 3T, A1C WTH eA, CMP, LIPID, TSH3, BNP #### [facility] [address] No Panel InformationOrdered By: Rosemary Cartagena on 12-03-2023 Estimated GFR (CKD-EPI) 58.211 mL/Min [facility] Creatinine Clearance (Chem N/A [facility] Potassium [Moles/volume] in Serum or PlasmaOrdered By: Rosemary Cartagena on 12-03-2023 Potassium [Moles/Vol] 4.2 mmol/L Normal 3.5-5.1 [facility] Comment on above: Performed By: #### T 3T, A1C WTH eA, CMP, LIPID, TSH3, BNP #### [facility] [address] [place] [phone] [place] Protein [Mass/volume] in Ser um or PlasmaOrdered By: Rosemary Cartagena on 12-03-2023 Protein [Mass/Vol] 6.6 g/dL Normal 6.4-8.9 [facility] Comment on above: Performed By: #### T 3T, A1C WTH eA, CMP, LIPID, TSH3, BNP #### [facility] [address] Serum globulin measurement b y calculation (mass/volume)Ordered By: Rosemary Cartagena on 12-03-2023 Globulin (S) [Mass/Vol] 2.5 g/dL [facility] Comment on above: Performed By: #### T 3T, A1C WTH eA, CMP, LIPID, TSH3, BNP #### [facility] [address] Serum or plasma albumin/glob ulin mass ratioOrdered By: Rosemary Cartagena on 12-03-2023 Albumin/Globulin [Mass ratio] 1.6 {ratio} [facility] Comment on above: Performed By: #### T 3T, A1C WTH eA, CMP, LIPID, TSH3, BNP #### [address] Serum or plasma anion gap de terminationOrdered By: Rosemary Cartagena on 12-03-2023 Anion gap [Moles/Vol] 8.9 mmol/L Normal 6.0-15.0 [facility] Comment on above: Performed By: #### T 3T, A1C WTH eA, CMP, LIPID, TSH3, BNP #### [facility] [address] [place] [address] Serum or plasma high density lipoprotein (HDL) cholesterol measurementOrdered By: Rosemary Cartagena on 12-03-2023 Cholesterol in HDL [Mass/Vol] 35 mg/dL Normal 23-92 [facility] Comment on above: HDL CHOL ATP-III CLA SSIFICATION Cardiovascular RiskHDL > or equal to 60 mg/dL LOWHDL < 40 mg/dL HIGH Result Comment: HDL CHOL ATP-III CLASSIFICATION Cardiovascular Risk HDL > or equal to 60 mg/dL LOW HDL < 40 mg/dL HIGH Performed By: #### T 3T, A1C WTH eA, CMP, LIPID, TSH3, BNP #### [facility] [address] [place] [address] Serum or plasma total choles terol/high density lipoprotein (HDL) cholesterol mass ratOrdered By: Rosemary Cartagena on 12-03-2023 Cholesterol.total/Chol esterol in HDL [Mass ratio] 3.6 {ratio} Normal <5.0 [facility] Comment on above: Performed By: #### T 3T, A1C WTH eA, CMP, LIPID, TSH3, BNP #### [address] Sodium [Moles/volume] in Ser um or PlasmaOrdered By: Rosemary Cartagena on 12-03-2023 Sodium [Moles/Vol] 142 mmol/L Normal 136-145 [facility] Comment on above: Performed By: #### T 3T, A1C WTH eA, CMP, LIPID, TSH3, BNP #### [facility] [address] [place] [address] Thyrotropin [Units/volume] i n Serum or PlasmaOrdered By: Rosemary Cartagena on 12-03-2023 TSH Qn 3.73 m[IU]/L Normal 0.45-5.33 [facility] Comment on above: Result Comment: PERF ORMED BY: [place] [address] PATHOLOGIST ANALYT[employer] LEAD TONEY KWON M.D. Performed By: #### T 3T, A1C WTH eA, CMP, LIPID, TSH3, BNP #### [address] Triglyceride [Mass/volume] i n Serum or PlasmaOrdered By: Rosemary Cartagena on 12-03-2023 Triglyceride [Mass/Vol] 314 mg/dL 0-149 [facility] Comment on above: TRIG ATP III CLASSIF ICATIONTRIG less than 150 mg/dL NormalTRIG 150-199 mg/dL Borderline highTRIG 200-500 mg/dL High TRIG greater than 500 mg/dL Very highStandard traceable to the Center for Disease Conrtrol and Prevention (CDC) test method. Triiodothyronine (T3) Totalo n 12-03-2023 Triiodothyronine (T3) Total 0.93 ng/mL Normal 0.87-1.78 [facility] Comment on above: Performed By: #### T 3T, A1C WTH eA, CMP, LIPID, TSH3, BNP #### [facility] [address] Triiodothyronine (T3) [Mass/ volume] in Serum or PlasmaOrdered By: Rosemary Cartagena on 12-03-2023 T3 [Mass/Vol] 0.93 ng/mL 0.87-1.78 [facility] Urea nitrogen [Mass/volume] in Serum or PlasmaOrdered By: Rosemary Cartagena on 12-03-2023 Urea nitrogen [Mass/Vol] 28 mg/dL High 7 [facility] Comment on above: Performed By: #### T 3T, A1C [facility] e[facility], CMP, LIPID, TSH3, BNP #### [facility] [address] Alanine aminotransferase [En zymatic activity/volume] in Serum or PlasmaOrdered By: Rosemary Cartagena on 09-02-2023 ALT [Catalytic activity/Vol] 12 U/L 7-52 [facility] Albumin [Mass/volume] in Ser um or Plasma by Bromocresol green (BCG) dye binding methoOrdered By: Rosemary Cartagena on 09-02-2023 Albumin BCG dye [Mass/Vol] 4.0 g/dL 3.5-5.7 [facility] Alkaline phosphatase [Enzyma tic activity/volume] in Serum or PlasmaOrdered By: Rosemary Cartagena on 09-02-2023 ALP [Catalytic activity/Vol] 74 U/L 34-104 [facility] Aspartate aminotransferase [ Enzymatic activity/volume] in Serum or PlasmaOrdered By: Rosemary Cartagena on 09-02-2023 AST [Catalytic activity/Vol] 17 U/L 13-39 [facility] Bilirubin.total [Mass/volume ] in Serum or PlasmaOrdered By: Rosemary Cartagena on 09-02-2023 Bilirubin [Mass/Vol] 0.6 mg/dL 0.3-1.0 [facility] Calcium [Mass/volume] in Ser um or PlasmaOrdered By: Rosemary Cartagena on 09-02-2023 Calcium [Mass/Vol] 8.9 mg/dL 8.6-10.3 [facility] Carbon dioxide, total [Moles /volume] in Serum or PlasmaOrdered By: Rosemary Cartagena on 09-02-2023 CO2 [Moles/Vol] 30.5 mmol/L 21.0-31.0 [facility] Chloride [Moles/volume] in S ric or PlasmaOrdered By: Rosemary Cartagena on 09-02-2023 Chloride [Moles/Vol] 106 mmol/L 98-107 [facility] Cholesterol [Mass/volume] in Serum or PlasmaOrdered By: Rosemary Cartagena on 09-02-2023 Cholesterol [Mass/Vol] 139 mg/dL 140-200 [facility] Comment on above: Chol less than 200 m g/dl low riskChol 201-239 mg/dl borderline riskChol 240 mg/dl and greater high risk Cholesterol in LDL Calc [Mas s/Vol]Ordered By: Rosemary Cartagena on 09-02-2023 Cholesterol in LDL [Mass/Vol] 56 mg/dL 0-100 [facility] Comment on above: LDL ATP III CLASSIFI CATIONLDL less than 100 mg/dL OptimalLDL 100-129 mg/dL Near or above optimalLDL 130-159 mg/dL Borderline highLDL 160-189 mg/dL HighLDL greater than 189 mg/dL Very high Cholesterol in VLDL Calc [Ma ss/Vol]Ordered By: Rosemary Cartagena on 09-02-2023 Cholesterol in VLDL [Mass/Vol] 51 mg/dL [facility] Creatinine [Mass/volume] in Serum or PlasmaOrdered By: Rosemary Cartagena on 09-02-2023 Creatinine [Mass/Vol] 1.10 mg/dL 0.70-1.30 [facility] Globulin Calc (S) [Mass/Vol] Ordered By: Rosemary Cartagena on 09-02-2023 Globulin (S) [Mass/Vol] 2.4 g/dL [facility] Glucose [Mass/volume] in Ser um or PlasmaOrdered By: Rosemary Cartagena on 09-02-2023 Glucose [Mass/Vol] 126 mg/dL 70-100 [facility] Comment on above: ADA recommended refe rence rangeRandom Glucose Reference Range is dependent on time and content of last meal. Glucose of more than 200 mg/dL in a nonstressed, ambulatory subject supports the diagnosis of Diabetes Mellitus. Glucose mean value [Mass/vol ume] in Blood Estimated from glycated hemoglobinOrdered By: Rosemary Cartagena on 09-02-2023 Average glucose Estimated from glycated hemoglobin (Bld) [Mass/Vol] 148 mg/dL [facility] Hemoglobin A1c percentageOrd ered By: Rosemary Cartagena on 09-02-2023 HbA1c (Bld) [Mass fraction] 6.8 % 4.3-5.6 [facility] Comment on above: Increased risk for d iabetes: 5.7 - 6.4diabetes: >6.4glycemic control for adults with diabetes: <7.0 Natriuretic peptide B [Mass/ Vol]Ordered By: Rosemary Cartagena on 09-02-2023 Natriuretic peptide B (Bld) [Mass/Vol] 229.0 pg/mL 5-100 [facility] No Panel InformationOrdered By: Rosemary Cartagena on 09-02-2023 Estimated GFR (CKD-EPI) > 60.0 mL/Min [facility] Creatinine Clearance (Chem N/A [facility] Potassium [Moles/volume] in Serum or PlasmaOrdered By: Rosemary Cartagena on 09-02-2023 Potassium [Moles/Vol] 3.9 mmol/L 3.5-5.1 [facility] Protein [Mass/volume] in Ser um or PlasmaOrdered By: Rosemary Cartagena on 09-02-2023 Protein [Mass/Vol] 6.4 g/dL 6.4-8.9 [facility] Serum or plasma albumin/glob ulin mass ratioOrdered By: Rosemary Cartagena on 09-02-2023 Albumin/Globulin [Mass ratio] 1.7 {ratio} [facility] Serum or plasma anion gap de terminationOrdered By: Rosemary Cartagena on 09-02-2023 Anion gap [Moles/Vol] TNP [facility] Comment on above: Test not performed Serum or plasma high density lipoprotein (HDL) cholesterol measurementOrdered By: Rosemary Cartagena on 09-02-2023 Cholesterol in HDL [Mass/Vol] 31 mg/dL 23- [facility] Comment on above: HDL CHOL ATP-III CLA SSIFICATION Cardiovascular RiskHDL > or equal to 60 mg/dL LOWHDL < 40 mg/dL HIGH Serum or plasma total choles terol/high density lipoprotein (HDL) cholesterol mass ratOrdered By: Rosemary Cartagena on 09-02-2023 Cholesterol.total/Chol esterol in HDL [Mass ratio] 4.5 {ratio} <5.0 [facility] Sodium [Moles/volume] in Ser um or PlasmaOrdered By: Rosemary Cartagena on 09-02-2023 Sodium [Moles/Vol] 141 mmol/L 136-145 [facility] TRANSTHORACIC ECHO (TTE) COM PLETEon 09-02-2023 TRANSTHORACIC ECHO (TTE) COMPLETE [address], [address] [address] TRANSTHORACIC ECHOCARDIOGRAM REPORT Patient Name: YOANA IBRAHIM Reading Physician: [id number] Syed Flores MD, [facility] Study Date: 09/02/2023 Ordering Provider: [id number] ROSEMARY CARTAGENA MRN/PID: [id number] Fellow: Nurse: Date of /Age: 4 1940 / 82 years 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: Sobeida Juarez RDCS T Gender: M Additional Staff: Height: 167.64 cm Admit Date: Weight: 87.09 kg Admission Status: BSA: 1.97 m2 Department Location: [facility] Blood Pressure: 112 /74 mmHg Study Type: TRANSTHORACIC ECHO (TTE) COMPLETE Diagnosis/ICD: Abnormal electrocardiogram [ECG] [EKG]-R94.31; Sleep apnea, unspecified-G47.30; Permanent AFib-I48.21; Shortness of breath-R06.02 Indication: Sick Sinus Syndrome, Pacemaker/AICD, CHF, Diabetes, HTN, Hyperlipidemia, CABG, Former Smoker, Ischemic Cardiomyopathy, TIA-2017, History of Left UE DVT, Prostate Cancer CPT Codes: Echo Complete w Full Doppler-39760 Study Detail: The following Echo studies were [...] 0.6 m/s (0.6-0.9m/s) PV Max P.3 mmHg [id number] Syed Flores MD, FACC Electronically signed on 09/02/2023 at 5:11:22 PM Final [facility] Thyrotropin [Units/volume] i n Serum or PlasmaOrdered By: Rosemary Cartagena on 09-02-2023 TSH Qn 4.72 m[IU]/L 0.45-5.33 [facility] Triglyceride [Mass/volume] i n Serum or PlasmaOrdered By: Rosemary Cartagena on 09-02-2023 Triglyceride [Mass/Vol] 259 mg/dL 0-149 [facility] Comment on above: TRIG ATP III CLASSIF ICATIONTRIG less than 150 mg/dL NormalTRIG 150-199 mg/dL Borderline highTRIG 200-500 mg/dL High TRIG greater than 500 mg/dL Very highStandard traceable to the Center for Disease Conrtrol and Prevention (CDC) test method. Triiodothyronine (T3) [Mass/ volume] in Serum or PlasmaOrdered By: Rosemary Cartagena on 09-02-2023 T3 [Mass/Vol] 0.70 ng/mL 0.87-1.78 [facility] US Heart TransthoracicOrdere d By: Syed Flores on 09-02-2023 Aortic Valve Area by Continuity of Peak Velocity 2.14 [facility] Work Phone: Aortic Valve Area by Continuity of VTI 2.09 [facility] Work Phone: [phone] AV mn grad 3.0 [facility] Work Phone: [phone] AV pk grad 7.3 [facility] Work Phone: [phone] AV pk diamond 1.35 [facility] Work Phone: [phone] LV A4C EF 14.5 [facility] Work Phone: [phone] LVIDd 5.30 [facility] Work Phone: [phone] LVOT diam 2.10 [facility] Work Phone: [phone] RVSP 38.8 [facility] Work Phone: [phone] [facility] Work Phone: [phone] US Heart Transthoracicon [address], [address] [address] TRANSTHORACIC ECHOCARDIOGRAM REPORT Patient Name: YOANA PATRICE Reading Physician: [id number] Syed Flores MD, [facility] Study Date: 09/02/2023 Ordering Provider: [id number] ROSEMARY CARTAGENA MRN/PID: [id number] Fellow: Nurse: Date of /Age: 4 1940 / 82 years 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: Sobeida Juarez RDCS, RVT Gender: M Additional Staff: Height: 167.64 cm Admit Date: Weight: 87.09 kg Admission Status: BSA: 1.97 m2 Department Location: [facility] Blood Pressure: 112 /74 mmHg Study Type: TRANSTHORACIC ECHO (TTE) COMPLETE Diagnosis/ICD: Abnormal electrocardiogram [ECG] [EKG]-R94.31; Sleep apnea, unspecified-G47.30; Permanent AFib-I48.21; Shortness of breath-R06.02 Indication: Sick Sinus Syndrome, Pacemaker/AICD, CHF, Diabetes, HTN, Hyperlipidemia, CABG, Former Smoker, Ischemic Cardiomyopathy, TIA-2017, History of Left UE DVT, Prostate Cancer CPT Codes: Echo Complete w Full Doppler-[id number] Study Detail: The following Echo studies were [...] included)... Syed Simeon M D - 09/02/2023 [facility] [address] [facility], [address], [place] [address] TRANSTHORACIC ECHOCARDIOGRAM REPORT Patient Name: YOANA IBRAHIM Reading Physician: [id number] Syed Flores MD, [facility] Study Date: 09/02/2023 Ordering Provider: [id number] ROSEMARY CARTAGENA MRN/PID: [id number] Fellow: Nurse: Date of /Age: 4 1940 / 82 years 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: Sobeida Juarez RDCS [place] Gender: M Additional Staff: Height: 167.64 cm Admit Date: Weight: 87.09 kg Admission Status: BSA: 1.97 m2 Department Location: [facility] Blood Pressure: 112 /74 mmHg Study Type: TRANSTHORACIC ECHO (TTE) COMPLETE Diagnosis/ICD: Abnormal electrocardiogram [ECG] [EKG]-R94.31; Sleep apnea, unspecified-G47.30; Permanent AFib-I48.21; Shortness of breath-R06.02 Indication: Sick Sinus Syndrome, Pacemaker/AICD, CHF, Diabetes, HTN, Hyperlipidemia, CABG, Former Smoker, Ischemic Cardiomyopathy, TIA-2017, History of Left UE DVT, Prostate Cancer CPT Codes: Echo Complete w Full Doppler-[id number] Study Detail: The following Echo studies were [...] PV Max PG: (more content not included)... [facility] Work Phone: Urea nitrogen [Mass/volume] in Serum or PlasmaOrdered By: Rosemary Cartagena on 09-02-2023 Urea nitrogen [Mass/Vol] 21 mg/dL 04-06 [facility] ECG 12 Lead[place] 09-01-2023 Atrial fibrillation. Towards the second half of the EKG patient goes into ventricular paced rhythm. When not paced QRS duration [address]-T abnormality in the inferior leads when paced QRS duration 180 ms. QTc 400 ms [facility] Work Phone: OVA AND PARASITE EXAMINATION on 12-23-2021 Ova + Parasite Exam Final report Normal [facility] Comment on above: Result Comment: Thes e results were obtained using wet preparation(s) and trichrome stained smear. This test does not include testing for Cryptosporidium parvum, Cyclospora, or Microsporidia. Performed By: #### O VAPE #### [facility] [address] [place] [address] Dr. Mely Avery Result 1 Comment Normal [facility] Comment on above: Result Comment: No o va, cysts, or parasites seen. . One negative specimen does not rule out the possibility of a parasitic infection. Performed By: #### O VAPE #### [facility] [address] [place] [address] Dr. Mely Avery STOOL CULTUREon 12-20-2021 Campylobacter Culture Final report Normal T [facility] Comment on above: Performed By: #### C XSTOOL #### [facility] [address] [place] [address] Dr. Mely Avery E coli Shiga Toxin EIA Negative Normal Negative [facility] Comment on above: Performed By: #### C XSTOOL #### [facility] [address] [place] [address] Dr. Mely Avery Result 1 Comment Normal [facility] Comment on above: Result Comment: No S almonella or Shigella recovered. Performed By: #### C XSTOOL #### [facility] [address] [place] [address] Dr. Mely Avery Result Comment: No C ampylobacter species isolated. Salmonella/Shigella Screen Final report Normal [facility] Comment on above: Performed By: #### C XSTOOL #### [facility] [address] [place] [address] Dr. Mely Avery C. DIFF PCRon 12-16-2021 C. DIFFICILE PCR Negative Normal NEGATIVE [facility] Comment on above: Performed By: #### C DIFPOC #### [facility] [address] [place] [address] Dr. Mely Avery XR lumbar spine 6V w bending on 07-25-2021 XR lumbar spine 6V w bending [facility] [employer] Other XR lumbar spine 6V w bending [facility] [employer] Other XR lumbar spine 6V w bending [address] [place] [address] [employer] Other XR lumbar spine 6[place] [address] [employer] Other XR lumbar spine 6V w bending XRay Report [employer] Other XR lumbar spine 6V w bending Signed [employer] Other XR lumbar spine 6V w bending Patient: Yoana Ibrahim MR#: [id number] [employer] Other XR lumbar spine 6V w bending 9840 [employer] Other XR lumbar spine 6V w bending : 1940 Acct:[id number] [employer] Other XR lumbar spine 6V w bending Age/Sex: 80 / M ADM Date: 07/25/21 [employer] Other XR lumbar spine 6V w bending Loc: [place] Room: Type: [facility] [employer] Other XR lumbar spine 6V w bending Attending Dr: Osvaldo Maciel MD [employer] Other XR lumbar spine 6V w bending Ordering Provider: Osvaldo Maciel MD [employer] Other XR lumbar spine 6V w bending Date of Service: 07/25/21 [employer] Other XR lumbar spine 6V w bending XR/XR lumbar spine 6V w bending: M48.062, M43.16 M51.36 [employer] Other XR lumbar spine 6V w bending Copies to: Osvaldo Maciel MD [employer] Other XR lumbar spine 6V w bending LUMBAR SPINE WITH FLEXION, EXTENSION AND BENDING VIEWS- 6 views: [employer] Other XR lumbar spine 6V w bending CLINICAL HISTORY: Pain at the mid back when bending or standing up straight. No injury. [employer] Other XR lumbar spine 6V w bending COMPARISON: CT myelogram 07/01/2021 [employer] Other XR lumbar spine 6V w bending AP neutral, right and left bending as well as lateral views in neutral, flexion and extension were [employer] Other XR lumbar spine 6V w bending obtained. There is osteopenia. 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 There is minimal ret [employer] Other XR lumbar spine 6V w bending rolisthesis of L1 on L2 and L2 on L3. There is approximately 5 mm of anterolisthesis of L4 on L5. [employer] Other XR lumbar spine 6V w bending Alignment does not change significantly with flexion or extension. No acute fractures are present. [employer] Other XR lumbar spine 6V w bending There is slight disc space narrowing, greatest at L2-3 and the lumbosacral junction. There is [employer] Other XR lumbar spine 6V w bending endplate spurring, greater proximally and facet hypertrophy, greater distally. The SI joints show [employer] Other XR lumbar spine 6V w bending mild sclerosis. There is a bladder stimulator traversing a sacral foramen on the right. There is [employer] Other XR lumbar spine 6V w bending atherosclerotic plaque at the aorta and iliac arteries. [employer] Other XR lumbar spine 6V w bending XR/XR lumbar spine 6V w bending [employer] Other XR lumbar spine 6V w bending IMPRESSION: [employer] Other XR lumbar spine 6V w bending OSTEOPENIA, SCOLIOSIS AND DEGENERATIVE CHANGES, DESCRIBED [employer] Other XR lumbar spine 6V w bending Impression dictated by: Basilia Guevara M.D.07/25/2021 4:06 PM [employer] Other XR lumbar spine 6V w bending Dictation Location: [place] [address] [employer] Other XR lumbar spine 6V w bending Transcribed By: PWS 07/25/21 [facility] [employer] Other XR lumbar spine 6V w bending Dictated By: Basilia Guevara MD 07/25/21 [facility] [employer] Other XR lumbar spine 6V w bending Signed By: [employer] Other XR lumbar spine 6V w bending 07/25/21 [facility] [employer] Other Basic Metabolic Panelon 10-0 Anion gap [Moles/Vol] 11 mmol/L 9 - 17 mmol/L [place] Bun/Cre Ratio NOT REPORTED [place] Calcium [Mass/Vol] 8.3 mg/dL Low 8.6 - 10. 4 mg/dL [place] Chloride [Moles/Vol] 104 mmol/L 98 - 10 7 mmol/L [place] CO2 [Moles/Vol] 26 mmol/L 20 - 31 mmol/L [place] Creatinine [Mass/Vol] 1.12 mg/dL 0.7 - 1.2 mg/dL [place] GFR >60 >60 mL/min [place] GFR Non- >60 >60 mL/min [place] GFR/1.73 sq M predicted among non-blacks MDRD (S/P/Bld) [Vol rate/Area] [place] Comment on above: Average GFR for 70 o r more years old: 75 mL/min/1.73sq m Chronic Kidney Disease: <60 mL/min/1.73sq m Kidney failure: <15 mL/min/1.73sq m eGFR calculated using average adult body mass. Additional eGFR calculator available at: http://www.Relaborate/multiple_crcl_2012.htm GFR/1.73 sq M predicted among non-blacks MDRD (S/P/Bld) [Vol rate/Area] NOT REPORTED [place] Glucose [Mass/Vol] 111 mg/dL High 70 - 99 mg/dL [place] Interpretation and review of laboratory results Abnormal [place] Potassium [Moles/Vol] 4.0 mmol/L 3.7 - 5.3 mmol/L [place] Sodium [Moles/Vol] 141 mmol/L 135 - 144 mmol/L [place] Urea nitrogen [Mass/Vol] 26 mg/dL High 8 - 23 mg/dL [place] Basic Metabolic Profon 06-13 (cont.) Normal [facility] Comment on above: Result Comment: Aver age GFR for 70 or more years old: 75 mL/min/1.73sq m Chronic Kidney Disease: <60 mL/min/1.73sq m Kidney failure: <15 mL/min/1.73sq m eGFR calculated using average adult body mass. Additional eGFR calculator available at: http://www.Relaborate/multiple_crcl_2012.htm Performed By: #### C BC, BMP, MG, GLYHGB #### [facility] [address] [place] [address] [id number] [employer] Consultant: Bradley Richey MD Anion gap [Moles/Vol] 11 mmol/L Normal 9-[address] [facility] Comment on above: Performed By: #### C BC, BMP, MG, GLYHGB #### [employer] [address] [place] [address] [id number] [employer] Consultant: Bradley Richey MD Calcium [Mass/Vol] 8.3 mg/dL Low 8.6-10.4 [facility] Comment on above: Performed By: #### C BC, BMP, MG, GLYHGB #### [employer] [address] [place] [address] [employer] Consultant: Bradley Richey MD Chloride [Moles/Vol] 104 mmol/L Normal 98-107 [facility] Comment on above: Performed By: #### C BC, BMP, MG, GLYHGB #### [facility] [address] [place] [address] [employer] Consultant: Bradley Richey MD CO2 [Moles/Vol] 26 mmol/L Normal 20-31 [facility] Comment on above: Performed By: #### C BC, BMP, MG, GLYHGB #### [facility] [address] [place] [address] [employer] Consultant: Bradley Richey MD Creatinine [Mass/Vol] 1.12 mg/dL Normal 0.70-1.[address] [facility] Comment on above: Performed By: #### C BC, BMP, MG, GLYHGB #### [facility] [address] [place] [address] [employer] Consultant: Bradley Richey MD GFR, Amer >60 Normal >60 [facility] Comment on above: Performed By: #### C BC, BMP, MG, GLYHGB #### [facility] [address] [place] [phone] [employer] Consultant: Bradley Richey MD GFR,non Amer >60 Normal >60 [facility] Comment on above: Performed By: #### C BC, BMP, MG, GLYHGB #### [facility] [place] [address] [employer] Consultant: Bradley Richey MD Glucose [Mass/Vol] 111 mg/dL High 70-99 [facility] Comment on above: Performed By: #### C BC, BMP, MG, GLYHGB #### [facility] [address] [place] [address] [employer] Consultant: Bradley Richey MD Potassium [Moles/Vol] 4.0 mmol/L Normal 3.7-5.[address] [facility] Comment on above: Performed By: #### C BC, BMP, MG, GLYHGB #### [facility] [address] [place] [address] [employer] Consultant: Bradley Richey MD Sodium [Moles/Vol] 141 mmol/L Normal 135-144 [facility] Comment on above: Performed By: #### C BC, BMP, MG, GLYHGB #### [facility] [address] [place] [address] [employer] Consultant: Bradley Richey MD Urea nitrogen [Mass/Vol] 26 mg/dL High - [facility] Comment on above: Performed By: #### C BC, BMP, MG, GLYHGB #### [facility] [address] [place] [address] [employer] Consultant: Bradley Richey MD BUN/CRE Ratio NOT REPORTED Normal 06-02 [facility] Comment on above: Performed By: #### C BC, BMP, MG, GLYHGB #### [facility] [address] [place] [address] [employer] Consultant: Bradley Richey MD Staging: NOT REPORTED Normal [facility] Comment on above: Performed By: #### C BC, BMP, MG, GLYHGB #### [facility] [address] [place] [address] [employer]ant: Bradley Richey MD CBCon 06-13-2019 Erythrocyte distribution width (RBC) [Ratio] 13.0 % Normal 11.8-14.4 [facility] Comment on above: Performed By: #### C BC, BMP, MG, GLYHGB #### [facility] [address] [place] [address] [employer] Consultant: Bradley Richey MD Hematocrit (Bld) [Volume fraction] 36.6 % Low 40.7-50.3 [facility] Comment on above: Performed By: #### C BC, BMP, MG, GLYHGB #### [address] [address] [employer] Consultant: Bradley Richey MD Hemoglobin (Bld) [Mass/Vol] 11.8 g/dL Low 13.0-17.0 [facility] Comment on above: Performed By: #### C BC, BMP, MG, GLYHGB #### [address] [address] [employer] Consultant: Bradley Richey MD MCH (RBC) [Entitic mass] 33.1 pg Normal 25.2-33.5 [facility] Comment on above: Performed By: #### C BC, BMP, MG, GLYHGB #### [address] [address] [employer] Consultant: Bradley Richey MD MCHC (RBC) [Mass/Vol] 32.2 g/dL Normal 28.4-34.[address] [facility] Comment on above: Performed By: #### C BC, BMP, MG, GLYHGB #### [address] [address] [employer] Consultant: Bradley Richey MD MCV (RBC) [Entitic vol] 102.5 fL Normal 82.6-102.9 [facility] Comment on above: Performed By: #### C BC, BMP, MG, GLYHGB #### [address] [address] [employer] Consultant: Bradley Richey MD NRBC Automated 0.0 per 100 WBC Normal 0.0 [facility] Comment on above: Performed By: #### C BC, BMP, MG, GLYHGB #### [address] [address] [employer] Consultant: Bradley Richey MD Platelet mean volume (Bld) [Entitic vol] 9.8 fL Normal 8.1-13.5 [facility] Comment on above: Performed By: #### C BC, BMP, MG, GLYHGB #### [facility] [place] [address] [employer] Consultant: Bradley Richey MD Platelets (Bld) [#/Vol] 174 10*3/uL Normal 138-453 [facility] Comment on above: Performed By: #### C BC, BMP, MG, GLYHGB #### [facility] [place] [address] [employer] Consultant: Bradley Richey MD RBC (Bld) [#/Vol] 3.57 10*6/uL Low 4.21-5.77 [facility] Comment on above: Performed By: #### C BC, BMP, MG, GLYHGB #### [facility] [address] [place] [address] [employer] Consultant: Bradley Richey MD WBC (Bld) [#/Vol] 8.7 10*3/uL Normal 3.5-11.3 [facility] Comment on above: Performed By: #### C BC, BMP, MG, GLYHGB #### [facility] [place] [address] [employer] Consultant: Bradley Richey MD Erythrocyte distribution width (RBC) [Ratio] 13.0 % 11.8 - 14.4 % [place] Hematocrit (Bld) [Volume fraction] 36.6 % Low 40.7 - 50.3 % [place] Hemoglobin (Bld) [Mass/Vol] 11.8 g/dL Low 13 - 17 g/dL [place] Interpretation and review of laboratory results Abnormal [place] MCH (RBC) [Entitic mass] 33.1 pg 25.2 - 33.5 pg [place] MCHC (RBC) [Mass/Vol] 32.2 g/dL 28.4 - 34.8 g/dL [place] MCV (RBC) [Entitic vol] 102.5 fL 82.6 - 102.9 fL [place] Platelet mean volume (Bld) [Entitic vol] 9.8 fL 8.1 - 13.5 fL [place] Platelets (Bld) [#/Vol] 174 10*3/uL [place] RBC (Bld) [#/Vol] 3.57 10*6/uL Low 4.21 - 5.77 m/uL [place] WBC (Bld) [#/Vol] 0.0 10*3/uL 0.0 per 100 WBC [place] WBC (Bld) [#/Vol] 8.7 10*3/uL [place] HEMOGLOBIN A1Con 06-13-2019 Glucose [Mass/Vol] 143 mg/dL [place] Comment on above: The ADA and AACC rec ommend providing the estimated average glucose result to permit better patient understanding of their HBA1c result. HbA1c (Bld) [Mass fraction] 6.6 % High 4 - 6 % [place] Interpretation and review of laboratory results Abnormal [place] Hemoglobin A1Con 06-13-2019 HbA1c (Bld) [Mass fraction] 6.6 % High 4.0-6.0 [facility] Comment on above: Performed By: #### C BC, BMP, MG, GLYHGB #### [employer] [address] [place] [address] [employer] Consultant: Bradley Richey MD HbA1c (Bld) [Mass fraction] 143 mg/dL Normal [facility] Comment on above: Result Comment: The ADA and AACC recommend providing the estimated average glucose result to permit better patient understanding of their HBA1c result. Performed By: #### C BC, BMP, MG, GLYHGB #### [employer] [address], [place] [phone] [employer] Consultant: Bradley Richey MD Magnesiumon 06-13-2019 Magnesium [Mass/Vol] 1.9 mg/dL Normal 1.6-2.6 [facility] Comment on above: Performed By: #### C BC, BMP, MG, GLYHGB #### [facility] [address] [place] [address] [employer] Consultant: Bradley Richey MD Magnesium [Mass/Vol] 1.9 mg/dL 1.6 - 2 .6 mg/dL [place] POC Glucose Fingerstickon Glucose [Mass/Vol] 209 mg/dL High 75 - 110 mg/dL [place] Interpretation and review of laboratory results Abnormal [place] Glucose [Mass/Vol] 165 mg/dL High 75 - 110 mg/dL [place] Interpretation and review of laboratory results Abnormal [place] XR CHEST (2 VW)on 06-13-2019 XR [...] Abdon Dolan MD 06/13/19 Final result Normal [facility] XR CHEST PORTABLEon 06-13-20 XR CHEST PORTABLE [...] Rosalba Brush DO 06/12/19 Final result Normal [facility] CHLORIDE (POC)on 06-12-2019 Chloride [Moles/Vol] 107 mmol/L 98 - 10 7 mmol/L [place] Creatinine W/GFR Point of Ca reon 06-12-2019 Creatinine [Mass/Vol] 1.02 mg/dL 0.51 - 1.19 mg/dL [place] GFR Non- >60 >60 mL/min [place] GFR/1.73 sq M predicted among non-blacks MDRD (S/P/Bld) [Vol rate/Area] mL/min/{1.73_m2} >60 mL/min [place] GFR/1.73 sq M predicted among non-blacks MDRD (S/P/Bld) [Vol rate/Area] [place] Comment on above: Average GFR for 70 o r more years old: 75 mL/min/1.73sq m Chronic Kidney Disease: <60 mL/min/1.73sq m Kidney failure: <15 mL/min/1.73sq m eGFR calculated using average adult body mass. Additional eGFR calculator available at: http://www.Relaborate/multiple_crcl_2012.htm Hemoglobin and hematocrit, b loodon 06-12-2019 Hematocrit (Bld) [Volume fraction] 34 % Low 41 - 53 % [place] Hemoglobin (Bld) [Mass/Vol] 11.5 g/dL Low 13.5 - 17.5 g/dL [place] Otheron 06-12-2019 Interpretation and review of laboratory results Abnormal [place] POC Glucose Fingerstickon Glucose [Mass/Vol] 115 mg/dL High 75 - 110 mg/dL [place] Interpretation and review of laboratory results Abnormal [place] Glucose [Mass/Vol] 112 mg/dL High 75 - 110 mg/dL [place] Interpretation and review of laboratory results Abnormal [place] POCT Glucoseon 06-12-2019 Glucose [Mass/Vol] 120 mg/dL High 74 - 100 mg/dL [place] POTASSIUM (POC)on 06-12-2019 Potassium [Moles/Vol] 4.4 mmol/L 3.5 - 4.5 mmol/L [place] SODIUM (POC)on 06-12-2019 Sodium [Moles/Vol] 144 mmol/L 138 - 146 mmol/L [place] XR CHEST PORTABLEon 06-12-20 Left chest pacemaker device in place. No evidence of pneumothorax. [place] EXAMINATION: ONE XRA Y VIEW OF [...] effusion. No free air beneath the diaphragm. [place] Prieto, Mhpn Incoming Radiant Results From [employer] - 06/12/2019 10:21 PM EDT EXAMINATION: ONE [...] device in place. No evidence of pneumothorax. [place] XR KNEE RIGHT (3 VIEWS)on XR [...] by:DEEDEE Ariasigned by:Abdon Dolan MD01/17/18inal result Normal [facility] Vital Signs Date Time Vital Sign Value Performing Clinician Facility 09-01-2024 14:21-0500 Body height 165.1 cm Rosemary Cartagena MD Work Phone: [facility] 09-01-2024 14:21-0500 Body mass index (BMI) [Ratio] 30.29 kg/m2 Rosemary Cartagena MD Work Phone: [facility] 09-01-2024 14:21-0500 Body weight 82.56 kg Rosemary Cartagena MD Work Phone: [facility] 09-01-2024 14:21-0500 Diastolic blood pressure 60 mm[Hg] Rosemary Cartagena MD Work Phone: [facility] 09-01-2024 14:21-0500 Heart rate 60 /min Rosemary Cartagena MD Work Phone: [facility] 09-01-2024 14:21-0500 Systolic blood pressure 120 mm[Hg] Rosemary Cartagena MD Work Phone: [facility] 08-24-2024 14:50-0500 Body height 165.1 cm Viky Lowe PA Work Phone: [facility] 08-24-2024 14:50-0500 Diastolic blood pressure 108 mm[Hg] Viky Lowe PA Work Phone: [facility] 08-24-2024 14:50-0500 Heart rate 61 /min Viky Lowe PA Work Phone: [facility] 08-24-2024 14:50-0500 Systolic blood pressure 132 mm[Hg] Viky Lowe PA Work Phone: [facility] 07-27-2024 15:08-0500 Diastolic blood pressure 58 mm[Hg] Rosemary Cartagena MD Work Phone: [facility] 07-27-2024 15:08-0500 Systolic blood pressure 112 mm[Hg] Rosemary Cartagena MD Work Phone: [facility] 07-27-2024 14:30-0500 Body height 167.6 cm Rosemary Cartagena MD Work Phone: [facility] 07-27-2024 14:30-0500 Body mass index (BMI) [Ratio] 28.73 kg/m2 Rosemary Cartagena MD Work Phone: [facility] 07-27-2024 14:30-0500 Body weight 80.74 kg Rosemary Cartagena MD Work Phone: [facility] 07-27-2024 14:30-0500 Heart rate 62 /min Rosemary Cartagena MD Work Phone: [facility] 07-13-2024 14:18-0400 Body height 167.6 cm Viky Lowe PA Work Phone: [facility] 07-13-2024 14:18-0400 Body mass index (BMI) [Ratio] 28.57 kg/m2 Viky Lowe PA Work Phone: [facility] 07-13-2024 14:18-0400 Body weight 80.29 kg Viky Lowe PA Work Phone: [facility] 07-13-2024 14:18-0400 Diastolic blood pressure 60 mm[Hg] Viky Lowe PA Work Phone: [facility] 07-13-2024 14:18-0400 Systolic blood pressure 132 mm[Hg] Viky Lowe PA Work Phone: [facility] 06-13-2024 14:08-0400 Body height 167.6 cm Viky Lowe PA Work Phone: [facility] 06-13-2024 14:08-0400 Body mass index (BMI) [Ratio] 29.38 kg/m2 Viky Lowe PA Work Phone: [facility] 06-13-2024 14:08-0400 Body weight 82.56 kg Viky Rastae PA Work Phone: [facility] 06-13-2024 14:08-0400 Diastolic blood pressure 78 mm[Hg] Viky Lowe PA Work Phone: [facility] 06-13-2024 14:08-0400 Systolic blood pressure 142 mm[Hg] Viky Lowe PA Work Phone: [facility] 04-25-2024 13:55-0400 Blood Pressure Location Anabel Orzech [facility] 04-25-2024 13:55-0400 Diastolic blood pressure 56 mm[Hg] Anabel Orzech [facility] 04-25-2024 13:55-0400 Heart rate 63 /min Anabel Orzech [facility] 04-25-2024 13:55-0400 Respiratory rate 18 /min Anabel Orzech [facility] 04-25-2024 13:55-0400 Systolic blood pressure 110 mm[Hg] Anabel Orzech [facility] 04-24-2024 13:45-0400 Body height 167.6 cm Rosemary Cartagena MD Work Phone: [facility] 04-24-2024 13:45-0400 Body mass index (BMI) [Ratio] 29.96 kg/m2 Rosemary Cartagena MD Work Phone: [facility] 04-24-2024 13:45-0400 Body weight 84.19 kg Rosemary Cartagena MD Work Phone: [facility] 04-24-2024 13:45-0400 Diastolic blood pressure 62 mm[Hg] Rosemary Cartagena MD Work Phone: [facility] 04-24-2024 13:45-0400 Heart rate 62 /min Rosemary Cartagena MD Work Phone: [facility] 04-24-2024 13:45-0400 Systolic blood pressure 104 mm[Hg] Rosemary Cartagena MD Work Phone: [facility] 04-03-2024 11:19-0400 Body height 167.64 cm DO Shanique [place] Work Phone: [facility] 04-03-2024 11:19-0400 Body mass index (BMI) [Ratio] 29.3 kg/m2 DO Shanique [place] Work Phone: [facility] 04-03-2024 11:19-0400 Body weight 82.55 kg DO Shanique [place] Work Phone: [facility] 04-03-2024 11:19-0400 Diastolic blood pressure 42 mm[Hg] DO Shanique [place] Work Phone: [facility] 04-03-2024 11:19-0400 Heart rate 66 /min DO Shanique [place] Work Phone: [facility] 04-03-2024 11:19-0400 Systolic blood pressure 93 mm[Hg] DO Shanique [place] Work Phone: [facility] 12-22-2023 14:28-0400 Body height 167.6 cm 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 Work Phone: [facility] 12-22-2023 14:28-0400 Body mass index (BMI) [Ratio] 31.47 kg/m2 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 Work Phone: [facility] 12-22-2023 14:28-0400 Body weight 88.45 kg 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 Work Phone: [facility] 12-22-2023 14:28-0400 Diastolic blood pressure 50 mm[Hg] 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 Work Phone: [facility] 12-22-2023 14:28-0400 Heart rate 60 /min 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 Work Phone: [facility] 12-22-2023 14:28-0400 Systolic blood pressure 120 mm[Hg] 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 Work Phone: [facility] 12-06-2023 15:09-0400 Body height 167.6 cm 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 Work Phone: [facility] 12-06-2023 15:09-0400 Body mass index (BMI) [Ratio] 29.86 kg/m2 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 Work Phone: [facility] 12-06-2023 15:09-0400 Body weight 83.92 kg 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 Work Phone: [facility] 12-06-2023 15:09-0400 Diastolic blood pressure 64 mm[Hg] 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 Work Phone: [facility] 12-06-2023 15:09-0400 Heart rate 60 /min 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 Work Phone: [facility] 12-06-2023 15:09-0400 Systolic blood pressure 112 mm[Hg] 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 Work Phone: [facility] 10-25-2023 15:04-0500 Body height 167.6 cm Rosemary Cartagena MD Work Phone: [facility] 10-25-2023 15:04-0500 Body mass index (BMI) [Ratio] 30.67 kg/m2 Rosemary Cartagena MD Work Phone: [facility] 10-25-2023 15:04-0500 Body weight 86.18 kg Rosemary Cartagena MD Work Phone: [facility] 10-25-2023 15:04-0500 Diastolic blood pressure 62 mm[Hg] Rosemary Cartagena MD Work Phone: [facility] 10-25-2023 15:04-0500 Heart rate 64 /min Rosemary Cartagena MD Work Phone: [facility] 10-25-2023 15:04-0500 Systolic blood pressure 118 mm[Hg] Rosemary Cartagena MD Work Phone: [facility] 09-02-2023 13:25-0500 Body height 167.[address] 09-02-2023 13:25-0500 Body mass index (BMI) [Ratio] 30.99 kg/m2 [address] 09-02-2023 13:25-0500 Body weight 87.[address] 09-02-2023 13:25-0500 Diastolic blood pressure 74 mm[Hg] [address] 09-02-2023 13:25-0500 Systolic blood pressure 112 mm[Hg] [address] 08-30-2023 11:14-0500 Diastolic blood pressure 80 mm[Hg] Rosemary Cartagena MD Work Phone: [facility] 08-30-2023 11:14-0500 Heart rate 67 /min Rosemary Cartagena MD Work Phone: [facility] 08-30-2023 11:14-0500 Systolic blood pressure 110 mm[Hg] Rosemary Cartagena MD Work Phone: [facility] 08-30-2023 11:13-0500 Body height 167.6 cm Rosemary Cartagena MD Work Phone: [facility] 08-30-2023 11:13-0500 Body mass index (BMI) [Ratio] 30.99 kg/m2 Rosemary Cartagena MD Work Phone: [facility] 08-30-2023 11:13-0500 Body weight 87.09 kg Rosemary Cartagena MD Work Phone: [facility] 04-01-2023 14:00-0400 Body height 167.64 cm Alexei Rehan Other [employer] Other 04-01-2023 14:00-0400 Body mass index (BMI) [Ratio] 28.73 kg/m2 Alexei Renettay Other [employer] Other 04-01-2023 14:00-0400 Body weight 80.74 kg Alexei Van Other [employer] Other 04-01-2023 14:00-0400 Diastolic blood pressure 74 mm[Hg] Alexei Renettay Other [employer] Other 04-01-2023 14:00-0400 Systolic blood pressure 140 mm[Hg] Alexei Renettay Other [employer] Other 03-11-2022 16:00-0400 Body height 167.64 cm Alexei Jacksony Other [employer] Other 03-11-2022 16:00-0400 Body mass index (BMI) [Ratio] 29.05 kg/m2 Alexei Renettay Other [employer] Other 03-11-2022 16:00-0400 Body weight 81.65 kg Alexei Rehan Other [employer] Other 09-02-2021 15:40-0500 Body height 167.64 cm Osvaldo Maciel Other [employer] Other 09-02-2021 15:40-0500 Body mass index (BMI) [Ratio] 32.6 kg/m2 Osvaldo Maciel Other [employer] Other 09-02-2021 15:40-0500 Body weight 91.63 kg Osvaldo Maciel Other [employer] Other 08-25-2021 15:30-0500 Body height 167.64 cm Abdon Jackman Other [employer] Other 08-25-2021 15:30-0500 Body mass index (BMI) [Ratio] 32.6 kg/m2 Abdon Jackman Other [employer] Other 08-25-2021 15:30-0500 Body temperature 98.1 [degF] Abdon Jackman Other [employer] Other 08-25-2021 15:30-0500 Body weight 91.63 kg Abdon Jackman Other [employer] Other 08-25-2021 15:30-0500 Diastolic blood pressure 68 mm[Hg] Abdon Jackman Other [employer] Other 08-25-2021 15:30-0500 SaO2% (BldA) [Mass fraction] 98 % Abdon Jackman Other [employer] Other 08-25-2021 15:30-0500 Systolic blood pressure 136 mm[Hg] Abdon Jackman Other [employer] Other 07-24-2021 14:20-0500 Body height 167.64 cm Osvaldo Maciel Other [employer] Other 07-24-2021 14:20-0500 Body mass index (BMI) [Ratio] 32.6 kg/m2 Osvaldo Maciel Other [employer] Other 07-24-2021 14:20-0500 Body weight 91.63 kg Osvaldo Maciel Other [employer] Other 07-24-2021 14:20-0500 Diastolic blood pressure 75 mm[Hg] Osvaldo Maciel Other [employer] Other 07-24-2021 14:20-0500 Systolic blood pressure 134 mm[Hg] Osvaldo Maciel Other [employer] Other 07-03-2021 17:15-0400 Body height 167.64 cm Ryder Pollack Other [employer] Other 07-03-2021 17:15-0400 Body mass index (BMI) [Ratio] 31.95 kg/m2 Ryder Pollack Other [employer] Other 07-03-2021 17:15-0400 Body weight 89.81 kg Ryder Pollack Other [employer] Other 07-03-2021 17:15-0400 Diastolic blood pressure 60 mm[Hg] Ryder Pollack Other [employer] Other 07-03-2021 17:15-0400 SaO2% (BldA) [Mass fraction] 98 % Ryder Pollack Other [employer] Other 07-03-2021 17:15-0400 Systolic blood pressure 140 mm[Hg] Ryder Pollack Other [employer] Other 06-30-2021 16:45-0400 Body height 167.64 cm Abdon Jackman Other [employer] Other 06-30-2021 16:45-0400 Body mass index (BMI) [Ratio] 31.95 kg/m2 Abdon Augustina Other [employer] Other 06-30-2021 16:45-0400 Body temperature 97.6 [degF] Abdon Augustina Other [employer] [place] Other 06-30-2021 16:45-0400 Body weight 89.81 kg Abdon Augustina Other [employer] Other 06-30-2021 16:45-0400 Diastolic blood pressure 68 mm[Hg] Abdon Augustina Other [employer] Other 06-30-2021 16:45-0400 SaO2% (BldA) [Mass fraction] 96 % Abdon Augustina Other [employer] Other 06-30-2021 16:45-0400 Systolic blood pressure 130 mm[Hg] Abdon Augustina Other [employer] [place] Other 06-16-2021 15:00-0400 Body weight 89.9 kg Ryder Pollack Other [employer] [place] Other 06-16-2021 15:00-0400 Diastolic blood pressure 76 mm[Hg] Ryder Pollack Other [employer] Other 06-16-2021 15:00-0400 Respiratory rate 18 /min Ryder Pollack Other [employer] Other 06-16-2021 15:00-0400 SaO2% (BldA) [Mass fraction] 95 % Ryder Pollack Other [employer] Other 06-16-2021 15:00-0400 Systolic blood pressure 152 mm[Hg] Ryder Pollack Other [employer] Other 06-13-2019 11:52-0400 Body Temperature 98.4 [degF] Ameer [place], [place] 06-13-2019 11:52-0400 BP Diastolic 55 mm[Hg] [facility] [place] 06-13-2019 11:52-0400 BP Systolic 123 mm[Hg] eer [facility] [place] 06-13-2019 11:52-0400 Pulse (Heart Rate) 63 /min A[facility]er [facility] [place] 06-13-2019 11:52-0400 Respiratory Rate 20 /min eer [facility] [employer], [place] 06-13-2019 07:15-0400 BMI (Body Mass Index) 33.06 kg/m2 [facility] [place] 06-13-2019 07:15-0400 Body weight 92.9 kg [facility] [place] 06-13-2019 07:15-0400 Height 167.6 cm [facility] [place] 06-12-2019 20:20-0400 Pulse Oximetry 93 % [facility] [place] Encounters Encounter Date Encounter Type Care Provider Facility Start: 11-22-2024 ambulatory Petr PAINTING Facility :[facility] Start: 10-11-2024 Evaluation and management of inpatient [facility] Start: 10-03-2024 End: 10-03-2024 ambulatory Pert PAINTING Facility:[facility] Start: 10-03-2024 End: 10-03-2024 Patient encounter procedure Petr PAINTING [facility] Start: 09-27-2024 End: 09-27-2024 Office outpatient new 45 minutes Fabiano Pickering MD Work Phone: [facility] Comment on above: Persistent atrial fi brillation (Multi) (Primary Dx); ICD (implantable cardioverter-defibrillator) in place; 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; Parkinson's disease, unspecified whether dyskinesia present, unspecified whether manifestations fluctuate; Falls frequently Start: 09-27-2024 End: 09-27-2024 ambulatory FABIANO PICKERING [facility] Start: 09-08-2024 End: 09-08-2024 ambulatory Shanique Anderson Facility:[facility] Start: 09-01-2024 End: 09-01-2024 ambulatory [facility] Start: 09-01-2024 End: 09-01-2024 Clinisync Result Encounter Viky OLSEN Work Phone: [facility] External [facility] Unsolicited Start: 09-01-2024 End: 09-01-2024 Clinisync Result Encounter Viky OLSEN Work Phone: [facility] Unsolicited Start: 09-01-2024 End: 09-01-2024 Office outpatient visit 25 minutes Rosemary Cartagena MD Work Phone: [facility] Comment on above: MCFP current us e of anticoagulant therapy (Primary Dx); Congestive heart failure, NYHA class 3, chronic, systolic; Nonrheumatic mitral valve regurgitation; Obstructive sleep apnea syndrome; Falls frequently; Hx of coronary artery bypass graft; Body mass index (BMI) of 30.0-30.9 in adult; Permanent atrial fibrillation (Multi); Ischemic cardiomyopathy; Coronary artery disease involving [place] coronary artery of [place] heart without angina pectoris; 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; Former smoker Start: 08-24-2024 End: 08-24-2024 Office outpatient visit 25 minutes Viky OLSEN Work Phone: [facility] Comment on above: Periodic limb moveme nt disorder (Primary Dx); Gait difficulty; Balance problem; Radiculopathy, lumbosacral region; Memory loss Start: 08-24-2024 End: 08-24-2024 ambulatory VIKY LOWE Not Available Start: 08-24-2024 End: 08-24-2024 Bamboo flowsheet Viky Lowe PA Work Phone: [facility] Start: 08-24-2024 End: 08-24-2024 Bamboo flowsheet Viky Lowe PA Work Phone: [facility] Start: 07-27-2024 End: 07-27-2024 ambulatory [facility] Start: 07-27-2024 End: 07-27-2024 Office outpatient visit 25 minutes Rosemary Cartagena MD Work Phone: [facility] Comment on above: Congestive heart chris lure, NYHA class 3, chronic, systolic; 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; Hx of coronary artery bypass graft; ICD (implantable cardioverter-defibrillator) in place; Ischemic cardiomyopathy; MCFP 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; Former smoker; Body mass index (BMI) 28.0-28.9, adult; Permanent atrial fibrillation (Multi); Parkinson's disease, unspecified whether dyskinesia present, unspecified whether manifestations fluctuate; Falls frequently Start: 07-25-2024 End: 07-25-2024 ambulatory Anabel X Nickomike Facility:[facility] Start: 07-25-2024 End: 07-25-2024 Patient encounter procedure Anabel Albertaddison [facility] Start: 07-13-2024 End: 07-13-2024 Office outpatient visit 25 minutes Viky Rollins PA Work Phone: [facility] Comment on above: 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 [address] Work Phone: Start: 06-29-2024 End: 06-29-2024 ambulatory DO Shanique Anderson Work Phone: [facility] Work Phone: Start: 06-15-2024 End: 06-15-2024 ambulatory Petr PAINTING Facility:[facility] Start: 06-15-2024 End: 06-15-2024 Patient encounter procedure Petr Hilary PAINTING [facility] Start: 06-13-2024 End: 06-13-2024 ambulatory VIKY LOWE Not Available Start: 06-13-2024 End: 06-13-2024 Bamboo flowsheet Viky Lowe PA Work Phone: [facility] Start: 06-13-2024 End: 06-13-2024 Bamboo flowsheet Viky Lowe PA Work Phone: [facility] Start: 06-13-2024 End: 06-13-2024 Office outpatient visit 25 minutes Viky Lowe PA [facility] Comment on above: Hyperreflexia (Prima ry Dx); Gait difficulty; Vertigo; Anxiety; Memory loss; Balance problem; Chronic post-traumatic headache, not intractable Start: 06-07-2024 End: 06-07-2024 Patient encounter procedure DO Shanique Anderson Work Phone: [facility]Pacemaker Check Start: 06-07-2024 End: 06-07-2024 ambulatory DO Shanique Anderson Work Phone: [facility] Work Phone: Start: 06-07-2024 Non-patient / Non-visit DO Vibha Anderson Work Phone: [facility] Start: 05-10-2024 End: 05-10-2024 Patient encounter procedure DO Shanique Anderson Work Phone: [facility] [place] Work Phone: Start: 05-10-2024 End: 05-10-2024 ambulatory DO Shanique Anderson Work Phone: [facility] Work Phone: Start: 04-25-2024 End: 04-25-2024 ambulatory Anabel X Orzech Facility:[facility] Start: 04-25-2024 End: 04-25-2024 Patient encounter procedure Anabel X Orzech [facility] Start: 04-24-2024 End: 04-24-2024 Office outpatient visit 25 minutes Rosemary Cartagena MD Work Phone: [facility] Comment on above: Permanent atrial fib rillation (Multi); Ischemic cardiomyopathy; Congestive heart failure, NYHA class 3, chronic, systolic (Multi); ICD (implantable cardioverter-defibrillator) in place; Coronary artery disease involving [place] coronary artery of [place] heart without angina pectoris; Hx of coronary artery bypass graft; 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; 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; Other specified diabetes mellitus with other specified complication, unspecified whether moth exterminator insulin use (Multi); Obstructive sleep apnea syndrome; History of stroke; Stage 3b chronic kidney disease (Multi); BMI 29.0-29.9,adult; Former smoker; Nonrheumatic mitral valve regurgitation; Nonrheumatic aortic valve insufficiency Start: 04-24-2024 End: 04-24-2024 ambulatory [facility] Start: 04-03-2024 End: 04-03-2024 ambulatory DO Shanique Anderson Work Phone: [facility] Work Phone: Start: 04-03-2024 End: 04-03-2024 Patient encounter procedure DO Shanique Anderson Work Phone: [facility] Work Phone: Start: 03-06-2024 End: 03-06-2024 Patient encounter procedure DO Shanique Anderson Work Phone: [facility]-Pacemaker Check Start: 03-06-2024 End: 03-06-2024 ambulatory DO Shanique Anderson Work Phone: [facility] Work Phone: Start: 03-01-2024 End: 03-01-2024 ambulatory ROBERT TANNER Facility:[facility] [place] Start: 03-01-2024 End: 03-01-2024 Patient encounter procedure SADAF TANNER [facility] Start: 02-23-2024 End: 02-23-2024 ambulatory VIKY LOWE Not Available Start: 02-18-2024 End: 02-18-2024 Patient encounter procedure DO Shanique Anderson Work Phone: [facility] [place] Work Phone: Start: 02-18-2024 End: 02-18-2024 ambulatory DO Shanique Anderson Work Phone: 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 [place] Work Phone: Start: 12-03-2023 End: 12-03-2023 ambulatory DO Shanique Anderson Work Phone: [facility] Work Phone: Start: 12-03-2023 End: 12-03-2023 Patient encounter procedure DO Shanique Anderson Work Phone: [facility]Pacemaker Check Start: 12-03-2023 End: 12-03-2023 ambulatory DO Shanique Anderson Work Phone: [facility] Work Phone: Start: 10-25-2023 End: 10-25-2023 ambulatory [facility] Start: 10-25-2023 End: 10-25-2023 Office outpatient visit 25 minutes Rosemary Cartagena MD Work Phone: [facility] Comment on above: Bipolar disorder, cu rrent episode manic severe with psychotic features (CMS/HCC) (Primary Dx); Permanent atrial fibrillation (CMS/HCC); Ischemic cardiomyopathy; ICD (implantable cardioverter-defibrillator) in place; Hx of coronary artery bypass graft; Coronary artery disease involving [place] coronary artery of [place] heart without angina pectoris; History of stroke; Other specified diabetes mellitus with other specified complication, unspecified whether moth exterminator insulin use (CMS/HCC); 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; MCFP 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; Obstructive sleep [...] 09-16-2023 End: 09-16-2023 ambulatory Alexei Van Other [employer] Other Start: 09-16-2023 Telephone encounter Alexei Tej[facility] Start: 09-02-2023 End: 09-02-2023 Subsequent hospital visit by physician Farzana Hwang Echo/Vasc Room 2 [facility] Comment on above: Abnormal EKG; Sleep apnea, unspecified type; Permanent atrial fibrillation (CMS/HCC); Shortness of breath Start: 09-02-2023 End: 09-02-2023 ambulatory ROSEMARY [facility] Start: 09-02-2023 End: 09-02-2023 ambulatory DO Shanique Anderson Work Phone: [facility] Work Phone: Start: 09-02-2023 End: 09-02-2023 Patient encounter procedure DO Shanique Anderson Work Phone: [facility]-Pacemaker Check Start: 08-30-2023 End: 08-30-2023 Office outpatient new 60 minutes Rosemary Cartagena MD Work Phone: [facility] Comment on above: Permanent atrial fib rillation (CMS/HCC) (Primary Dx); ICD (implantable cardioverter-defibrillator) in place; Sleep apnea, unspecified type; Abnormal EKG; Hx of coronary artery bypass graft; Coronary artery disease, unspecified vessel or lesion type, unspecified whether angina present, unspecified whether [place] or transplanted heart; MCFP 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; Shortness of breath; History of stroke; Benign prostatic hyperplasia with lower urinary tract symptoms, symptom details unspecified; Ischemic cardiomyopathy; Fatigue, unspecified type; Other specified diabetes mellitus with other specified complication, unspecified whether moth exterminator insulin use ([facility] Start: 08-12-2023 End: 08-12-2023 ambulatory Alexei Van Other [employer] Other Start: 08-12-2023 Telephone encounter Alexei Tejeda [facility] Start: 04-01-2023 End: 04-01-2023 ambulatory Alexei Van Other [employer] Other Start: 04-01-2023 Patient encounter procedure Alexei Van [facility] Start: 11-30-2022 End: 11-30-2022 ambulatory DO Shanique Anderson Work Phone: [facility] Work Phone: Start: 11-30-2022 End: 11-30-2022 Patient encounter procedure DO Shanique Anderson Work Phone: [facility]Ultrasound Cntr for Breast Car Start: 08-27-2022 Telephone encounter Alexei Tejeda [facility] Start: 08-27-2022 End: 08-27-2022 ambulatory ALEXEI VAN Facility: Start: 08-25-2022 End: 08-25-2022 ambulatory Alexei Van Other [employer] Other Start: 08-25-2022 Telephone encounter Alexei STONE [facility] Start: 05-12-2022 End: 05-12-2022 ambulatory Ryder Pollack Other [employer] Other Start: 05-12-2022 Telephone encounter Ryedr Pollack [facility] [employer] Start: 03-11-2022 End: 03-11-2022 ambulatory Alexei Van Other [employer] Other Start: 03-11-2022 Patient encounter procedure Alexei Van [facility] Start: 12-25-[address] SHANIQUE ANDERSON Facil ity:[facility] Start: 12-16-2021 End: 12-16-2021 ambulatory ALEXEI VAN Facility:[facility] Start: 12-15-2021 End: 12-15-2021 ambulatory Alexei Van Other [employer] Other Start: 12-15-2021 Telephone encounter Alexei Van [facility] Start: 11-26-2021 End: 11-27-[address] SHANIQUE ANDERSON Facility:[facility] Start: 09-18-2021 End: 10-28-2021 ambulatory ALBIN BABIN Facility:[facility] Start: 09-02-2021 End: 09-02-2021 ambulatory Osvaldo Maciel Other [employer] Other Start: 09-02-2021 Office outpatient vi sit 25 minutes Osvaldo Maciel [facility] Start: 08-25-2021 End: 08-25-2021 ambulatory Abdon Jackman Other [employer] Other Start: 08-25-2021 Office outpatient vi sit 25 minutes Abdon Jackman [facility] Start: 07-24-2021 End: 07-24-2021 ambulatory Osvaldo Maciel Other [employer] Other Start: 07-24-2021 Office outpatient ne w 45 minutes Osvaldo Maciel [facility] Start: 07-03-2021 Office outpatient vi sit 25 minutes Ryder Pollack [facility] Start: 07-01-2021 Telephone encounter Abdon burerll [facility] Start: 06-30-2021 Office outpatient vi sit 40 minutes Abdon Jackman [facility] Start: 06-25-2021 Telephone encounter Glenda Guillen [facility] Start: 06-24-2021 (Procedure) Short Ryder Pollack [facility] Start: 06-17-2021 Telephone encounter Ryder Pollack [facility] Start: 06-16-2021 Office outpatient vi sit 25 minutes Ryder Pollack [facility] Start: 06-16-2021 Telephone encounter Ryder Pollack [facility] Start: 06-12-2019 End: 06-13-2019 [facility] Start: 06-12-2019 End: 06-13-2019 Subsequent hospital visit by physician Raúl Akanksha Work Phone: [facility] Comment on above: S/P ICD (internal ca rdiac defibrillator) procedure Start: 01-17-2018 End: 01-20-2018 [facility] Procedures Date Procedure Procedure Detail Performing Clinician Start: 09-01-2024 [employer] Viky OLSEN Work Phone: Start: 07-27-2024 Ecg routine ecg w/least 12 lds w/i&r Rosemary Cartagena MD Work Phone: Start: 06-29-2024 CT cervical spine without contrast DO Shanique Morton Work Phone: Start: 06-29-2024 CT of head without contrast DO Shanique Br istol Work Phone: Start: 02-18-2024 CT of head with contrast DO Shanique Brist ol Work Phone: Start: 01-31-2024 FOLLOW UP IN CARDIOLOGY ROSEMARY CARTAGENA Start: 12-22-2023 FOLLOW UP IN CARDIOLOGY ROSEMARY CARTAGENA Start: 12-06-2023 FOLLOW UP IN CARDIOLOGY ROSEMARY CARTAGENA Start: 10-25-2023 FOLLOW UP IN CARDIOLOGY ROSEMARY CARTAGENA Start: 09-02-2023 TRANSTHORACIC ECHO (TTE) COMPLETE ROSEMARY CARTAGENA Start: 09-02-2023 Echo tthrc [id number] [id number] w/wom-mode compl spec&colr d Rosemary Cartagena MD Work Phone: Start: 08-30-2023 History of coronary artery bypass grafting Hx of coronary artery bypass graft Rosemary Cartagena MD Work Phone: Start: 08-30-2023 Ecg routine ecg w/least 12 lds w/i&r Rosemary Cartagena MD Work Phone: Start: 11-30-2022 Ultrasonography of bilateral breasts DO Shanique Anderson Work Phone: Start: 06-13-2019 Gluc bld gluc mntr dev cleared fda spec home use AMMARCELINOR AKANKSHA Start: 06-13-2019 PULSE OXIMETRY, CONTINUOUS AMEER AKANKSHA Start: 06-13-2019 Glucose blood reagent strip AMMARCELINOR AKANKSHA Start: 06-13-2019 Radiologic exam chest 2 views AMBRY VALE Start: 06-13-2019 Glucose blood reagent strip Ammarcelinor Akanksha Work Phone: Start: 06-13-2019 DISCHARGE PATIENT RAÚL VALE Start: 06-13-2019 DIET CARDIAC AMBRY VALE Start: 06-13-2019 Glucose blood reagent strip MAXIMINOR AKANKSHA Start: 06-13-2019 ICD FORM AMEER AKANKSHA Start: 06-13-2019 Gluc bld gluc mntr dev cleared fda spec home use AMEER AKANKSHA Start: 06-13-2019 INITIATE OXYGEN THERAPY PROTOCOL AMBRY VALE Start: 06-13-2019 PULSE OXIMETRY, CONTINUOUS AMEER AKANKSHA Start: 06-13-2019 Glucose blood reagent strip Raúl Vale Work Phone: Start: 06-13-2019 ICD FORM Hpf Scanning Start: 06-13-2019 Assay of magnesium AMBRY VALE Start: 06-13-2019 Basic metabolic panel calcium total AMMARCELINOR AKANKSHA Start: 06-13-2019 Blood count complete automated AMEER AKANKSHA Start: 06-13-2019 Hemoglobin glycosylated a1c AMBRY VALE Start: 06-13-2019 Gluc bld gluc mntr dev cleared fda spec home use AMMARCELINOR AKANKSHA Start: 06-13-2019 PULSE OXIMETRY, CONTINUOUS AMMARCELINOR AKANKSHA Start: 06-13-2019 Assay of magnesium Clement Song Work Phone: Start: 06-13-2019 Basic metabolic panel calcium total Clement Song Work Phone: Start: 06-13-2019 Blood count complete automated Clement Song Work Phone: Start: 06-13-2019 Hemoglobin glycosylated a1c Clement Song Work Phone: Start: 06-13-2019 ACTIVITY TOLERATED RAÚL VALE Start: 06-13-2019 DAILY WEIGHTS RAÚL VALE Start: 06-13-2019 INTAKE AND OUTPUT RAÚL VALE Start: 06-13-2019 PULSE OXIMETRY, CONTINUOUS RAÚL VALE Start: 06-12-2019 Glucose blood reagent strip RAÚL VALE Start: 06-12-2019 Gluc bld gluc mntr dev cleared fda spec home use RAÚL VALE Start: 06-12-2019 PULSE OXIMETRY, CONTINUOUS RAÚL VALE Start: 06-12-2019 Glucose blood reagent strip Raúl Vale Work Phone: Start: 06-12-2019 Glucose blood reagent strip RAÚL VALE Start: 06-12-2019 PULSE OXIMETRY, CONTINUOUS ARÚL VALE Start: 06-12-2019 Radiologic exam chest single view RAÚL VALE Start: 06-12-2019 Gluc bld gluc mntr dev cleared fda spec home use RAÚL VALE Start: 06-12-2019 NOTIFY PHYSICIAN (SPECIFY) RAÚL VALE Start: 06-12-2019 PLACE INTERMITTENT PNEUMATIC COMPRESSION DEVICE RAÚL VALE Start: 06-12-2019 FULL CODE RAÚL VALE Start: [...] dev cleared fda spec home use RAÚL VAEL Start: 06-12-2019 Potassium serum plasma/whole blood RAÚL [...] 01-17-2018 Radiologic examination knee 3 views FABIANO SUMAN Appendectomy Anabel Orzech Cardiac pacemaker, d evice (physical object) Anabel Orzech Cholecystectomy Anabel Orzec h Colonoscopy Anabel Orzech Extraction of cataract Auror a Orzech History of coronary artery bypass grafting Hx of coronary artery bypass graft Rosemary Cartagena MD Work Phone: History of coronary artery bypass grafting Anabel Orzech History of coronary artery bypass grafting [...] dimensional ex ternal beam radiation therapy Anabel Salinas Total knee replacement Auror a Rita Transrectal needle b iopsy of prostate Anabel MaharajGlance Plan of Treatment Date Care Activity Detail Author Start: 07-21-2031 DTaP/Tdap/Td Vaccines (2 - Tdap) DTaP/Tdap/Td Vaccines (2 - Tdap) [facility] Start: 07-21-2031 DTaP/Tdap/Td Vaccines (4 - Tdap) DTaP/Tdap/Td Vaccines (4 - Tdap) [facility] Start: 03-02-2025 End: 09-01-2025 Lipid 1996 panel - Serum or Plasma Lipid Panel Lab Routine Coronary artery disease involving [place] coronary artery of [place] heart without angina pectoris Expected: 03/02/2025 (Approximate), Expires: 09/01/2025 [facility] Service Area Work Phone: Comment on above: Expected: 03/02/2025 (Approximate), Expi res: 09/01/2025 Start: 01-25-2025 End: 01-25-2025 Patient encounter procedure 01/25/2025 1:30 PM EDT Office Visit [facility] [address] [facility] [address] [place] [address] Rosemary Cartagena MD [address] [facility] [address] [place] [address] [facility] Start: 11-30-2024 End: 11-30-2024 Patient encounter procedure 11/30/2024 12:00 PM EDT Office Visit [facility] [place] [address] Vkiy Rollins PA [address] [place] [id number] [facility] [address] Start: 09-27-2024 End: 09-27-2024 Telemedicine consultation with patient 09/27/2024 8:30 AM EST Telemedicine [facility] [address] [place] [facility] [address] [place] [id number] [place] [address] [place] [address] [facility] Start: 09-02-2024 Echocardiography Echocardiogram [facility] Start: 09-01-2024 End: 09-01-2025 Comprehensive metabolic 2000 panel - Serum or Plasma Comprehensive Metabolic Panel Lab Routine 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 Expected: 09/01/2024 (Approximate), Expires: 09/01/2025 [facility] Work Phone: Comment on above: Expected: 09/01/2024 (Approximate), Expi res: 09/01/2025 Start: 08-24-2024 End: 08-24-2024 Patient encounter procedure 08/24/2024 3:00 PM EST [facility] [address] [facility] [address] [place] [address] Viky Rollins PA [address] [place] [address] [facility] Comment on above: Arrived Start: 08-24-2024 End: 08-24-2025 Iron + transferrin + TIBC Iron + transferrin + TIBC Lab Routine Periodic limb movement disorder Expected: 08/24/2024 (Approximate), Expires: 08/24/2025 [facility] Work Phone: Comment on above: Expected: 08/24/2024 (Approximate), Expi res: 08/24/2025 Start: 07-27-2024 End: 07-27-2025 Basic metabolic 2000 panel - Serum or Plasma Basic Metabolic Panel Lab Routine 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 Expected: 07/27/2024 (Approximate), Expires: 07/27/2025 [facility] Service Area Work Phone: Comment on above: Expected: 07/27/2024 (Approximate), Expi res: 07/27/2025 Start: 07-27-2024 End: 07-27-2024 Patient encounter procedure 07/27/2024 2:00 PM EST Office Visit [facility] [address] [facility] [address] [place] [address] Rosemary Cartagena MD [address] [facility] [address] [place] [address] [facility] Start: 07-13-2024 End: 07-13-2024 Patient encounter procedure [facility] Comment on above: Arrived Start: 06-13-2024 End: 06-13-2025 CT Cervical spine WO contrast CT cervical spine wo IV contrast Imaging Routine Hyperreflexia Balance problem Expected: 06/13/2024 (Approximate), Expires: 06/13/2025 [facility] Comment on above: Expected: 06/13/2024 (Approximate), Expi res: 06/13/2025 Start: 06-13-2024 End: 06-13-2025 CT Head WO contrast CT head wo IV contrast Imaging Routine Gait difficulty Balance problem Expected: 06/13/2024 (Approximate), Expires: 06/13/2025 [facility] Work Phone: Comment on above: Expected: 06/13/2024 (Approximate), Expi res: 06/13/2025 Start: 05-14-2024 COVID-19 Vaccine ( season) COVID-19 Vaccine () [facility] Start: 05-14-2024 COVID-19 Vaccine () COVID-19 Vaccine () [facility] Start: 05-14-2024 COVID-19 Vaccine ( season) COVID-19 Vaccine ( season) [facility] Start: 05-14-2024 Influenza vaccination [facility] Start: 05-08-2024 End: 04-24-2025 Basic metabolic 2000 panel - Serum or Plasma Basic Metabolic Panel Lab Routine Congestive heart failure, NYHA class 3, chronic, systolic (Multi) Expected: 05/08/2024 (Approximate), Expires: 04/24/2025 [facility] Service Area Work Phone: Comment on above: Expected: 05/08/2024 (Approximate), Expi res: 04/24/2025 Start: 05-08-2024 End: 04-24-2025 Natriuretic peptide B [Mass/volume] in Blood B-Type Natriuretic Peptide Lab Routine Congestive heart failure, NYHA class 3, chronic, systolic (Multi) Expected: 05/08/2024 (Approximate), Expires: 04/24/2025 [facility] Work Phone: Comment on above: Expected: 05/08/2024 (Approximate), Expi res: 04/24/2025 Start: 02-28-2024 End: 02-28-2024 Patient encounter procedure 02/28/2024 1:45 PM EDT Office Visit [address] [place] [address] Rosemary Cartagena MD [address] [place] [address] [address] [place] [address] [facility] Start: 01-31-2024 End: 01-31-2024 Patient encounter procedure 01/31/2024 2:30 PM EDT Office Visit [address] [place] [address] [facility], INTER[employer]ATIONAL SALES MANAGER[employer]LECT[employer] COMPUTER MECHANIC [address] [facility] [address] [place] [address] [facility] Start: 01-03-2024 Glaucoma screening Diabetes: Retinopathy Screening [facility] Start: 12-29-2023 End: 12-29-2023 Patient encounter procedure 12/29/2023 1:30 PM EDT Office Visit [address] [place] [address] [facility], INTERNATIONAL SALES MANAGER-ELECTRONICS COMPUTER MECHANIC [address] [place] [address] [facility] Start: 12-22-2023 End: 12-21-2024 Basic metabolic 2000 panel - Serum or Plasma Basic Metabolic Panel Lab Routine Ischemic cardiomyopathy Expected: 12/22/2023 (Approximate), Expires: 12/21/2024 [facility] Service Area Work Phone: Comment on above: Expected: 12/22/2023 (Approximate), Expi res: 12/21/2024 Start: 12-03-2023 [facility] Start: 11-24-2023 End: 11-24-2023 Patient encounter procedure 11/24/2023 2:00 PM EDT Office Visit [address] [place] [address] [employer] [employer], INTERNATIONAL SALES MANAGER-ELECTRONICS COMPUTER MECHANIC [address] [facility] [address], [address] [place] [address] [facility] Start: 11-08-2023 End: 10-25-2024 Basic metabolic 2000 panel - Serum or Plasma Basic Metabolic Panel Lab Routine Ischemic cardiomyopathy 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 Medication course changed Expected: 11/08/2023 (Approximate), Expires: 10/25/2024 [facility] Area Work Phone: Comment on above: Expected: 11/08/2023 (Approximate), Expi res: 10/25/2024 Start: 10-25-2023 End: 10-25-2023 Patient encounter procedure 10/25/2023 2:15 PM EST Office Visit [address] [place] [address] Rosemary Cartagena MD [address] [facility] [address] [place] [address] [facility] Start: 09-02-2023 End: 09-02-2023 Patient encounter procedure 09/02/2023 1:30 PM EST [facility]ointment [facility] [address] [place] [address] [facility] Start: 08-30-2023 End: 08-30-2024 CBC panel - Blood by Automated count CBC Lab Routine [facility] 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 Expected: 08/30/2023 (Approximate), Expires: 08/30/2024 [facility] Work Phone: Comment on above: Expected: 08/30/2023 (Approximate), Expi res: 08/30/2024 Start: 08-30-2023 End: 08-30-2024 Comprehensive metabolic 2000 panel - Serum or Plasma Comprehensive Metabolic Panel Lab Routine Hx of coronary artery bypass graft Coronary artery disease, unspecified vessel or lesion type, unspecified whether angina present, unspecified whether [place] or transplanted heart Sleep apnea, unspecified type [...] mellitus with other specified complication, unspecified whether long-term insulin use ([facility]) Expected: 08/30/2023 (Approximate), Expires: 08/30/2024 [facility] Work Phone: Comment on above: Expected: 08/30/2023 (Approximate), Expi res: 08/30/2024 Start: 08-30-2023 End: 08-30-2024 Lipid 1996 panel - Serum or Plasma Lipid Panel Lab Routine 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 Coronary artery disease, unspecified vessel or lesion type, unspecified whether angina present, unspecified whether [place] or transplanted heart Sleep apnea, unspecified type Permanent atrial fibrillation (CMS/HCC) 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 Shortness of breath History of stroke Benign prostatic hyperplasia with lower urinary tract symptoms, symptom details unspecified Ischemic cardiomyopathy Expected: 08/30/2023 (Approximate), Expires: 08/30/2024 [facility] Work Phone: Comment on above: Expected: 08/30/2023 (Approximate), Expi res: 08/30/2024 Start: 08-30-2023 End: 08-30-2024 Natriuretic peptide B [Mass/volume] in Blood B-Type Natriuretic Peptide Lab Routine Abnormal EKG Hx of coronary artery bypass graft Coronary artery disease, unspecified vessel or lesion type, unspecified whether angina present, unspecified whether [place] or transplanted heart Permanent atrial fibrillation (CMS/HCC) Shortness of breath Ischemic cardiomyopathy Expected: 08/30/2023 (Approximate), Expires: 08/30/2024 [facility] Work Phone: Comment on above: Expected: 08/30/2023 (Approximate), Expi res: 08/30/2024 Start: 08-30-2023 End: 08-30-2024 Thyrotropin [Units/volume] in Serum or Plasma Thyroid Stimulating Hormone Lab Routine Shortness of breath History of stroke Benign prostatic hyperplasia with lower urinary tract symptoms, symptom details unspecified Ischemic cardiomyopathy Fatigue, unspecified type Expected: 08/30/2023 (Approximate), Expires: 08/30/2024 [facility] Work Phone: Comment on above: Expected: 08/30/2023 (Approximate), Expi res: 08/30/2024 Start: 08-30-2023 End: 08-30-2024 Triiodothyronine (T3) [Mass/volume] in Serum or Plasma Triiodothyronine, Total Lab Routine Shortness of breath History of stroke Benign prostatic hyperplasia with lower urinary tract symptoms, symptom details unspecified Ischemic cardiomyopathy Expected: 08/30/2023 (Approximate), Expires: 08/30/2024 [facility] Work Phone: Comment on above: Expected: 08/30/2023 (Approximate), Expi res: 08/30/2024 Start: 08-30-2023 End: 08-30-2025 US Heart Transthoracic Transthoracic Echo (TTE) Complete Echocardiography Routine Abnormal EKG Sleep apnea, unspecified type Permanent atrial fibrillation (CMS/HCC) Shortness of breath Expected: 08/30/2023 (Approximate), Expires: 08/30/2025 [facility] Work Phone: Comment on above: Expected: 08/30/2023 (Approximate), Expi res: 08/30/2025 Start: 07-25-2023 Screening for osteoporosis Bone Density Scan [facility] Start: 05-14-2023 COVID-19 Vaccine () COVID-19 Vaccine ( season) [facility] Start: 05-14-2023 COVID-19 Vaccine () COVID-19 Vaccine () [facility] Start: 05-14-2023 Influenza vaccination Influenza Vaccine (#1) [facility] Start: 01-02-2023 Glaucoma screening Diabetes: Retinopathy Screening [facility] Start: 07-25-2022 Screening for osteoporosis Bone Density Scan [facility] Start: 07-22-2021 DTaP/Tdap/Td Vaccines (1 - Tdap) DTaP/Tdap/Td Vaccines (1 - Tdap) [facility] Start: 06-12-2020 Creatinine monitoring Creatinine monitoring [place], [place] Start: 06-12-2020 Potassium monitoring Potassium monitoring [place], [place] Start: 05-14-2019 Influenza vaccination Flu vaccine (#1) [place], [place] Start: 03-05-2019 Annual Wellness Visit (AWV) Annual Wellness Visit (AWV) [place], [place] Start: 2017 RSV High Risk: (Elderly (60+) or Population) (1 - 1-dose 75+ series) RSV High Risk: (Elderly (60+) or Population) (1 - 1-dose 75+ series) [facility] Start: 12-19-2007 Pneumococcal 65+ years Vaccine (1 of 2 - PCV13) Pneumococcal 65+ years Vaccine (1 of 2 - PCV13) [facility] [place] Start: 2002 RSV patients and/or patients aged 60+ years (1 - 1-dose 60+ series) RSV patients and/or patients aged 60+ years (1 - 1-dose 60+ series) [facility] Start: 1992 Shingles Vaccine (1 of 2) Shingles Vaccine (1 of 2) [place], [place] Start: 1992 Zoster Vaccines (1 of 2) Zoster Vaccines (1 of 2) [facility] Start: 1961 DTaP/Tdap/Td vaccine (1 - Tdap) DTaP/Tdap/Td vaccine (1 - Tdap) [place], [place] Start: 1961 Urine screening for protein Diabetes: Urine Protein Screening [facility] Start: 1952 Diabetic foot examination Diabetes: Foot Exam [facility] Start: 1948 Pneumococcal Vaccine: 65+ Years (1 - PCV) Pneumococcal Vaccine: 65+ Years (1 - PCV) [facility] Start: 1948 Pneumococcal Vaccine: 65+ Years (1 of 2 - PCV) Pneumococcal Vaccine: 65+ Years (1 of 2 - PCV) [facility] Start: 06-19-1943 COVID-19 Vaccine (#1) COVID-19 Vaccine (#1) [facility] Start: 1942 Creatinine measurement Creatinine Level [facility] Start: 1942 Hemoglobin A1c measurement Diabetes: Hemoglobin A1C [facility] Start: 1942 Lipid panel Lipid Panel [facility] Start: 1942 Medicare Annual Wellness Visit Medicare Annual Wellness Visit (AWV) [facility] Start: 1942 Potassium measurement Potassium Level [facility] Start: 1942 Urine screening for protein Diabetes: Urine Protein Screening [facility] End: 06-12-2019 Cardiac catheterization Cardiac Catheterization Cardiac Cath Routine One Time for 1 Occurrences starting 06/12/2019 until 06/12/2019 [facility] [place] Comment on above: One Time for 1 Occurrences starting 05/16 until 06/12/2019 Glucose measurement estimated from glycated hemoglobin [facility] Initiate Oxygen Ther apy Protocol Initiate Oxygen Therapy Protocol Respiratory Care Routine Daily until discontinued starting 06/12/2019 [facility] on above: Daily until discontinued starting 2018 POCT glucose [facility] GIL White Comment on above: 4X Daily (AC & HS) until discontinued st arting 06/12/2019 As Needed until disc ontinued starting 06/12/2019 Pulse oximetry, continuous Pulse oximetry, continuous Respiratory Care Routine Every 4hr until discontinued starting 06/12/2019 [facility] Comment on above: Every 4hr until discontinued starting XR CHEST STANDARD (2 VW) XR CHES T STANDARD (2 VW) Imaging Routine 06/13/2019 10:36 AM EDT [facility] Immunizations Immunization Date Immunization Notes Care Provider [facility] 06-30-2024 influenza virus vacc ine, unspecified formulation Petr PAINTING [facility] 08-13-2023 influenza virus vacc ine, unspecified formulation Rosemary Cartagena MD Work Phone: [facility] Work Phone: 08-09-2023 influenza virus vacc ine, unspecified formulation [employer] [facility] 08-29-2022 influenza virus vacc ine, unspecified formulation Petr [employer] [facility] 06-08-2022 influenza virus vacc ine, unspecified formulation Petr [employer] [facility] 09-01-2021 SARS-CoV-2 (COVID-19 ) mRNA BNT-162b2 vax Petr PAINTING [facility] 07-21-2021 diphtheria, tetanus toxoids and acellular pertussis vaccine Osvaldo Maciel Other [facility] 07-21-2021 diphtheria, tetanus toxoids and acellular pertussis vaccine, unspecified formulation DO Shanique Anderson Work Phone: [facility] 06-13-2021 Flu Vaccine - Adult DO Redd Anderson Work Phone: [facility] 06-13-2021 influenza, seasonal, injectable DO Shanique Anderson Work Phone: [facility] 03-04-2021 SARS-CoV-2 (COVID-19 ) mRNA BNT-162b2 vax Petr [employer] [facility] 02-11-2021 SARS-CoV-2 (COVID-19 ) mRNA BNT-162b2 vax Petr PAINTING [facility] 11-03-2020 COVID-19 mRNA, Comir jenna (Pfizer) DO Shanique Anderson Work Phone: [facility] Comment on above: Result Comment: 2024: [id number] 10-13-2020 COVID-19 mRNA, Comir jenna (Pfizer) DO Shanique Anderson Work Phone: [facility] Comment on above: Result Comment: 2024: [id number] 08-31-2020 influenza virus vacc ine, unspecified formulation Petr [employer] [facility] 05-27-2020 influenza virus vacc ine, unspecified formulation Petr PA[employer] [facility] 06-24-2019 influenza virus vacc ine, unspecified formulation Petr PA[employer] [facility] 01-12-2019 zoster vaccine recombinant [employer] [facility] 06-29-2018 pneumococcal polysaccharide vaccine, 23 valent Petr PAINT[employer] [facility] 06-24-2018 zoster vaccine recombinant Petr Desi Hits [facility] 05-18-2018 influenza virus vacc ine, unspecified formulation Petr Desi Hits [facility] 06-02-2017 influenza virus vacc ine, unspecified formulation Petr Desi Hits [facility] 09-07-2016 influenza virus vacc ine, unspecified formulation PetrTrendlr [facility] 06-10-2016 influenza virus vacc ine, unspecified formulation PetrTrendlr [facility] 06-10-2016 pneumococcal polysaccharide vaccine, 23 valent Petr Desi Hits [facility] 05-29-2016 pneumococcal polysaccharide vaccine, 23 valent Petr Desi Hits [facility] 08-01-2015 influenza virus vacc ine, unspecified formulation Petr Desi Hits [facility] 05-29-2015 influenza virus vacc ine, unspecified formulation Petr Desi Hits [facility] 05-29-2015 pneumococcal conjuga te vaccine, 13 valent Petr Desi Hits [facility] 04-11-2015 pneumococcal conjuga te vaccine, 13 valent Petr Desi Hits [facility] 06-10-2014 influenza virus vacc ine, unspecified formulation PetrTrendlr [facility] 06-13-2013 DTaP, unspecified formulation Petr PAINTING [facility] 05-24-2013 influenza virus vacc ine, unspecified formulation Petr PAINTING [facility] 07-14-2011 influenza virus vacc ine, unspecified formulation [facility] 06-16-2010 pneumococcal polysaccharide vaccine, 23 valent Petr PAINTING [facility] Payers Date Payer Category Payer Unknown [id number] 2023 () [id number] 2022 [employer] ( and others) [id number] 2022 For Life (TFL) F OR LIFE [id number] 2018 Medicare MEDICARE MEDICAR E PART A AND B xxxxxxxxxxx 2018-Present [phone] [place] [address] xxxxxxxxxxx [id number] 2016 [employer] ( and others) FOR LIFE MEDICARE SUPP xxxxxxxxx 2016-Present C/O PG[employer]/ [address] [place] [address] xxxxxxxxx [id number] 2014 Medicare [id number] 2007 Medicare [id number] 1959 [employer] ( and others) [id number] 1959 Medicare [id number] 1959 Self-pay [id number] 1942 Unknown [id number] 1942 Unknown [id number] 1942 Unknown [id number] 1942 Unknown [id number] 2.16.840.1.878305.3.579.2 .593 1940 Unknown [id number] 2.16.840.1.960604.3.579.2 .593 1942 Unknown [id number] 2.16.840.1.130909.3.579.2 .593 1942 Unknown [id number] 2.16.840.1.898072.3.579.2 .593 1942 Unknown [id number] 2.16.840.1.486610.3.579.2 .1246 1942 Unknown [id number] 2.16.840.1.731302.3.579.2 .1259 1942 Unknown [id number] 2.16.840.1.541972.3.579.2 .1259 1942 Unknown [id number] 2.16.840.1.179825.3.579.2 .1259 1942 Unknown [id number] 2.16.840.1.631613.3.579.2 .1259 1942 Unknown [id number] 2.16.840.1.186639.3.579.2 .1259 1942 Unknown [id number] 2.16.840.1.182312.3.579.2 .1244 1942 Unknown [id number] 2.16840.1.786919.3.579.2 .4 1942 Unknown [id number] 2.16.840.1.540621.3.579.2 .1244 1942 Unknown [id number] 2.16.840.1.497359.3.579.2 .4 1942 Unknown [id number] 2.16.840.1.374793.3.579.2 .1244 1942 Unknown [id number] 2.16.840.1.517967.3.579.2 .1244 1942 Unknown [id number] 2.16.840.1.372224.3.579.2 .1244 1942 Unknown [id number] 2.16.840.1.383314.3.579.2 .727 1942 Unknown [id number] 2.16.840.1.462342.3.579.2 .727 1942 Unknown [id number] 2.16.840.1.601870.3.579.2 .727 1942 Unknown [id number] 2.16.840.1.346505.3.579.2 .727 1942 Unknown [id number] 2.16.840.1.885521.3.579.2 .727 1942 Unknown [id number] 2.16.840.1.859829.3.579.2 .727 1942 Unknown [id number] 2.16.840.1.915618.3.579.2 .1245 1942 Unknown [id number] 2.16.840.1.660194.3.579.2 .1245 Unknown [id number] 2.16.840.1.329834.3.579.2 .531 Unknown [id number] 2.16.840.1.698506.3.579.2 .531 Unknown [id number] 2.16.840.1.684685.3.579.2 .531 Unknown [id number] 2.16.840.1.745721.3.579.2 .531 Unknown [id number] 2.16.840.1.153097.3.579.2 .531 Unknown [id number] 2.16.840.1.483274.3.579.2 .531 Unknown [id number] 2.16.840.1.856194.3.579.2 .531 Unknown [id number] 2.16.840.1.619679.3.579.2 .531 Social History Date Type Detail Facility Start: 06-12-2019 End: 07-25-2024 Tobacco smoking status NHIS Former smoker [facility] Start: 09-13-1958 End: 09-13-2011 History of tobacco use Current smoker [place], [place] Start: 09-13-1958 End: 09-13-2011 History of tobacco use Cigarette Smoker [place] Start: 06-12-2019 End: 09-01-2024 Cigarettes smoked current (pack per day) - Reported [place] Start: 06-12-2019 End: 09-01-2024 Alcohol intake No [facility] Start: 05-06-2015 Tobacco Comment quit x 5 year [facility] Start: 1940 [facility] [place] [place] Start: 1940 Sex Assigned At Male F [facility] Start: 08-30-2023 End: 01-24-2024 Tobacco use and exposure Smokeless tobacco non-user [facility] Work Phone: Start: 08-30-2023 End: 09-01-2024 Alcohol intake Current drinker of alcohol (finding) [facility] Work Phone: Start: 08-30-2023 Alcohol Comment 1 YEARLY [facility] Work Phone: Start: 08-20-2023 End: 09-01-2024 Exposure to SARS-CoV-2 (event) Not sure [facility] Tobacco smoking status No Smokin g Status Entered [facility] Start: 01-24-2024 Tobacco smoking stat us NJIS Never smoked tobacco [facility] Start: 02-23-2024 End: 08-24-2024 Alcoholic beverage intake Lifetime non-drinker (finding) [facility] Start: 09-17-2024 End: 09-27-2024 Exposure to SARS-CoV-2 (event) Unable to assess [facility] Medical Equipment Procedure Code Equipment Code Equipment Origin al Text Equipment Identifier Dates Cement Barium Radiopq Full 40gr [id number] Start: 12-02-2017 Cement Barium Radiopq Full 40gr [id number] Start: 12-02-2017 Impl Knee X3 Patella [id number] Star t: 12-02-2017 Impl Capped Knee Advanced _imp Start: 12-02-2017 Impl Knee Fem Co mp Cmntd Sz 6 _imp Start: 12-02-2017 Impl Knee Patell a Asym X3 [id number] _[id number] Start: 12-02-2017 Impl Knee Tib Baseplt Prime Sz 6 _imp Start: 12-02-2017 Impl Knee Tib In srt Postr X3 Sz6 11mm [id number] Start: 12-02-2017 Stimulator Neuro Pulse [id number] Start: 04-27-2017 Pacemaker 10196_exp Pacemaker [id number] Lt Knee 10197_exp Lt Knee 10197_imp Goals Date Patient Goal Desired Activity /State Functional Status Date Assessment Result Facility 07-25-2024 Functional Status N/A [facility] 06-15-2024 Functional Status N/A [facility] 04-25-2024 Functional Status N/A [facility] Clinical Notes 06-16-2021 to 09-27-2024 Glenroy Lea MD - 09/27/2024 8:30 AM Precious Cartagena MD - 09/01/2024 1:45 PM ESTPatient InstructionsRosemary Cartagena MD - 07/27/2024 2:00 PM ESTPatient Instructions Note Date & Type Note Facility 09-27-2024 History of Present illness Narrative Images from the original note were not included. PCP: Dr. Llanes Cardio: Dr. Cartagena This was a virtual encounter. Total [place] 63 mins, 31 mins face to face. I was asked by Dr. Cartagena to evaluate this patient in consultation for evaluation of left atrial appendage closure. The patient is a [age]yo, male with PMH of chronic systolic left heart failure, HFrEF, secondary to ischemic cardiomyopathy, LVEF 30%, sick sinus syndrome dual-chamber pacemaker, hypertension, hyperlipidemia, Coronary artery bypass grafting with SAMUEL to LAD SVG to PDA, Obstructive sleep apnea, TIA December 2016, Left upper extremity DVT , Urinary and bowel incontinence related to radiation therapy for prostate cancer Insulin requiring diabetes and mild neurocognitive decline. He has longstanding, persistent atrial fibrillation and using eliquis. He has a baseline of parkinson disease and gets around in the wheelchair, after several episodes of falls leaded by his gait instability, that in some episodes required ER visits, he was referred for evaluation for LAAO. Given the patient's significant risk of fall and gait instability and the need of anticoagulant therapy for chronic atrial fibrillation, the patient is referred for consideration of left atrial appendage closure for stroke risk reduction. Labs: Results for orders placed or performed in visit on 05/10/24 [facility] HIE Basic Metabolic Panel Collection Time: 05/10/24 2:38 PM Result Value Ref Range [facility] HIE Glucose 286 (H) 70 - 100 mg/dL [facility] HIE Blood Urea Nitrogen 38 (H) 7 - 25 mg/dL [facility] H[facility] Creatinine 1.75 (H) 0.70 - 1.30 mg/dL [facility] HIE ESTIMATED GFR 38.632 [facility] HIE Sodium 143 136 - 145 mmol/L NON-[facility] HIE Potassium 4.7 3.5 - 5.1 mmol/L [facility] HIE Chloride 107 98 - 107 mmol/L NON-[facility] HIE Carbon Dioxide 29.1 21.0 - 31.0 mmol/L NON-[facility] HIE Anion Gap 11.6 6.0 - 15.0 NON-[facility] HIE Calcium 8.6 8.6 - 10.3 mg/dL NON-[facility] HIE B-Type Natriuretic Peptide Collection Time: 05/10/24 2:38 PM Result Value Ref Range NON-[facility] HIE B-Type Natriuretic Peptide 252.0 (H) 5 - 100 pg/mL Medications: Current Outpatient Medications Medication Instructions apixaban (ELIQUIS) 2.5 mg, oral, 2 times daily busPIRone (BUSPAR) 5 mg, 2 times daily [...] PRN digoxin (LANOXIN) 125 mcg, oral, Daily famotidine (PEPCID) 20 mg, Nightly FERROUS SULFATE [...] (Entresto) 49-51 mg tablet 1 tablet, oral, Nightly tamsulosin (Flomax) 0.4 mg 24 hr capsule 1 capsule, Daily traZODone (DESYREL) 50 mg, Nightly Assessment/Plan: The patient is a 83 yo, male in longstanding persistent atrial fibrillation and using eliquis. He has a baseline of Parkinson's disease and requires a wheelchair. He has had several episodes of falls fromhis gait instability, that in some episodes required ER visits, and was referred for evaluation for watchman device. Given the patient's significant risk of fall and gait instability and the need of anticoagulant therapy for chronic atrial fibrillation, the patient is referred for consideration of left atrial appendage closure for stroke risk reduction. The CHADS-VASC score is 8 and HAS-BLED score is 6. The patient is at increased risk of both bleeding and stroke. As such the patient is a reasonable candidate for consideration of left atrial appendage occluder placement. Today we discussed the left atrial appendage closure procedure. The patient was given written educational handout materials and watched an educational video. All risks, benefits and alternative were discussed. The risks discussed included but were not limited to vascular complications, sedation related complications, risk of MD, CVA, device embolization, pericardial tamponade and . The patient verbalized understanding and decided to proceed. The patient requires CT for planning and to exclude CATHY thrombus. In addition, the patient will also need a CT scan 4 months after the procedure, to evaluate the device for position, thrombus and merary-device leak.. Following device implant, strategy will be for dual antiplatelet therapy with aspirin and clopidogrel for 6 months then aspirin for life Thank you, Dr. Cartagena, for this consultation and for allowing me to participate in the care of this patient. Fabiano Pickering MD [employer] Strength Tester, Interventional Cardiology Fellowship Program [facility] [employer] Office documented in this encounter [facility] Work Phone: 09-01-2024 History of Present illness Narrative This is a follow-up from 07/27/2024. At that time we referred patient to Dr. Pickering regarding Watchman device. Patient is accompanied by to the office. They have several questions most of which deal with noncardiac issues. Subjective : Has not had any falls since the last office visit. He was examined in the wheelchair. In fact he gets around in the wheelchair. Denies palpitations chest discomfort pressure tightness heaviness or bleeding diathesis. had questions again about Entresto dosage, currently taking 24/20 6 in the morning and 24/20 6 in the evening, we had wanted to uptitrate the evening dose at last visit. Device interrogation 06/07/2024 shows that patient is in atrial fibrillation 100% of the time. Ventricular paced 49%. 12 point ROS is negative or non contributory except as noted. History so Far : 1. Chronic systolic [...] Objective Wt Readings from Last 3 Encounters: 09/01/24 82.6 kg (182 lb) 07/27/24 80.7 kg (178 lb) 04/24/24 84.2 kg (185 lb 9.6 oz) Vitals: 09/01/24 1421 BP: 120/60 BP Location: Right arm Patient Position: Sitting Pulse: 60 Weight: 82.6 kg (182 lb) Height: 1.651 m (5' 5 ) Physical Exam: GENERAL APPEARANCE: in no acute distress. CHEST: Symmetric and non-tender. Pacemaker generator left infraclavicular area, well-healed vertical anterior scar of prior coronary artery bypass grafting. INTEGUMENT: Skin warm and dry HEENT: No gross abnormalities identified.No pallor or scleral icterus. NECK: Supple, no JVD, no bruit. NEURO/PSHCY: Alert and oriented x3; appropriate behavior and responses and responses LUNGS: Clear to auscultation bilaterally; normal respiratory effort. HEART: Rate and rhythm regular with no evident murmur; no gallop appreciated. ABDOMEN: Soft, non tender. MUSCULOSKELETAL: No gross deformities. EXTREMITIES: Warm There is no edema noted. Meds: Current Outpatient Medications Medication Instructions apixaban (ELIQUIS) 2.5 mg, oral, 2 times daily busPIRone (BUSPAR) 5 mg, 2 times daily [...] PRN digoxin (LANOXIN) 125 mcg, oral, Daily famotidine (PEPCID) 20 mg, Nightly FERROUS SULFATE [...] Unknown Victoza 2-Cruz [Liraglutide] Unknown LABS: No results found for: WBC , HGB , HCT , PLT , CHOL , TRIG , HDL , LDLDIRECT , ALT , AST , NA , K , CL , CREATININE , BUN , CO2 , TSH , PSA , INR , GLUF , HGBA1C , ALBUR Patient Active Problem List Diagnosis Date Noted Weight loss 07/27/2024 Falls frequently 07/27/2024 Former smoker 04/24/2024 Stage 3b chronic kidney disease (Multi) 04/24/2024 Nonrheumatic mitral valve regurgitation 04/24/2024 Nonrheumatic aortic valve insufficiency 04/24/2024 Body mass index (BMI) of 30.0-30.9 in adult 12/22/2023 Body mass index (BMI) 28.0-28.9, adult 12/06/2023 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 10/25/2023 Bipolar disorder, current episode manic severe with psychotic features (Multi) 10/25/2023 Sacroiliitis, not elsewhere classified ([facility]) 10/25/2023 Idiopathic chronic pancreatitis (Multi) 10/25/2023 Dementia [...] bypass graft 08/30/2023 Coronary artery disease involving [place] coronary artery of [place] heart without angina pectoris 08/30/2023 Obstructive sleep apnea syndrome 08/30/2023 Permanent atrial fibrillation (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 Congestive heart failure, NYHA class 3, chronic, systolic 2. Nonrheumatic mitral valve regurgitation 3. ICD (implantable cardioverter-defibrillator) in place 4. Coronary artery disease involving [place] coronary artery of [place] heart without angina pectoris 5. Obstructive sleep apnea syndrome 6. Falls frequently 7. Former smoker 8. Parkinson's disease, unspecified whether dyskinesia present, unspecified whether manifestations fluctuate 9. Hx of coronary artery bypass graft 10. Body mass index (BMI) of 30.0-30.9 in adult 11. Permanent atrial fibrillation (Multi) 12. Ischemic cardiomyopathy 13. 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 Fall precautions reiterated Patient is compliant with CPAP therapy No angina pectoris Has permanent atrial fibrillation on long-term anticoagulation with high fall risk Awaits consultation for Watchman device We are trying to maximize guideline directed therapy for congestive heart failure. Follow up : 6 months Comprehensive profile and lipid profile prior to next visit Provider Attestation - Heaven Spears LPN Scribe documentation All medical record entries made by the Scribe were at my direction and personally dictated by me. I have reviewed the chart and agree that the record accurately reflects my personal performance of the history, physical exam, discussion and plan. documented in this encounter [facility] Work Phone: 09-01-2024 Instructions Heaven Shah LPN - 09/01/2024 1:45 PM EST Please bring all medicines, vitamins, and herbal supplements with you when you come to the office. Prescriptions will not be filled unless you are compliant with your follow up appointments or have a follow up appointment scheduled as per instruction of your physician. Refills should be requested at the time of your visit. Fall Prevention Education Given BMI was above normal measurement. Current weight: 82.6 kg (182 lb) Weight change since last visit (-) denotes wt loss 4 lbs Weight loss needed to achieve BMI 25: 32.1 Lbs Weight loss needed to achieve BMI 30: 2.1 Lbs Provided instructions on dietary changes Provided instructions on exercise. Pacemaker/Defibrillator follow up per routine documented in this encounter [facility] Work Phone: 07-27-2024 History of Present illness Narrative Images from the original note were not included. This is a follow-up from April 2024. At that time we uptitrated Entresto to 24/20 6 in the morning and 49/50 1 in the evening. Blood work was ordered. Patient is accompanied by and grandson. Grandson is an ER nurse in [place]. Both and grandson report significant deterioration in [...] Sick sinus syndrome dual-chamber pacemaker, revised to Pembe Panjur Evera XT DR ICD May 2019, with [...] features (Multi) 10/25/2023 Sacroiliitis, not elsewhere classified ([facility]) 10/25/2023 Idiopathic chronic pancreatitis (Multi) 10/25/2023 Dementia [...] bypass graft 08/30/2023 Coronary artery disease involving [place] coronary artery of [place] heart without angina pectoris 08/30/2023 Obstructive sleep apnea syndrome 08/30/2023 Permanent atrial fibrillation (Multi) 08/30/2023 [facility] 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 08/30/2023 Shortness [...] cardiomyopathy sacubitriL-valsartan (Entresto) 24-26 mg tablet 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 Former smoker 8. Body mass index (BMI) 28.0-28.9, adult 9. Permanent atrial fibrillation (Multi) ECG 12 Lead 10. Parkinson's disease, unspecified whether dyskinesia present, unspecified whether manifestations fluctuate Referral to Cardiac Electrophysiology 11. Falls frequently Referral to Cardiac Electrophysiology Clinical decision making: Patient with high [id number] score and high Hasbled score. Permanent atrial [...] evaluated by me and is referred to [facility] for a left atrial appendage implant due thromboembolic stroke risk from atrial fibrillation with CHADS2 score >= 2 or a WPG1RL5-IPFl score >= 3. This patient is not a good candidate for long-term anticoagulation for the following reason(s): This patient [...] discussion and plan. documented in this encounter [facility] Work Phone: 07-27-2024 Instructions Heaven Shah LPN [...] instructions on exercise. documented in this encounter [facility] Work Phone: 07-25-2024 Hospital Discharge instructions Patient [...] nerve stimulation). ?For women, using a medical equipment technician to prevent urine leaks. This is a [...] right after experiencing incontinence. General instructions Take xrpu-tky-gztvikt and prescription medicines only as told by [...] important. Where to find more information National [place] [employer]estive [employer]ney Diseases: www.niddk.nih.gov [place] [employer]: www.urologyhealth.org Contact a health care [...] provider. Document Revised: 04/04/2021 Document Reviewed: 04/04/2021 [employer] Patient Education 2023 [employer]. 07/25/2024 14:17:38 Benign Prostatic Hyperplasia Benign Prostatic [...] urethra. Follow these instructions at home: Take ckpv-okc-ozdevyl and prescription medicines only as told by [...] provider. Document Revised: 03/18/2022 Document Reviewed: 03/18/2022 [employer] Patient Education 2023 [employer]. 07/25/2024 14:17:37 Paraphimosis Paraphimosis Paraphimosis is a [...] pressure to the area. General instructions Take vhpe-mfw-gsvqrov and prescription medicines only as told by [...] and water are not available, use hand brake repairer bus. ?Ask when you should remove your dressing. [...] needs to be treated right away. Take dseb-bdi-yxvchfo and prescription medicines only as told by [...] provider. Document Revised: 08/13/2022 Document Reviewed: 08/13/2022 [employer] Patient Education 2023 [employer]. Follow Up Care 06/15/2024 10:57:21 With:CINTHYA SANCHEZ, Petr Richard, URL Address: [facility] [address] [place] [id number]- When: Unknown Comments:2 mos w/ PSA [facility] 07-25-2024 Note Patient Education Urology Urinary Incontinence [...] stimulation). ? For women, using a medical equipment technician to prevent urine leaks. This is a [...] health care provider (more content not included)... [facility] 06-15-2024 Note Progress Note-Physic familia Patient: [...] afterwards, # 2 tab(s), Refills(s) 0, Pharmacy: [facility]/pharmacy #[id number], 167, cm, 04/25/24 13:59:00 EDT, Height/Length Dosing, 72, kg, 08/13/24 13:59:00 EDT, Weight Dosing Myrbetriq 50 mg oral tablet, extended release: 50 mg = 1 tab(s), Oral, Daily, # 30 tab(s), Refills(s) 11, Pharmacy: [facility]/pharmacy #[id number], 167, cm, 06/15/24 10:14:00 EDT, Height/Length [...] and Minerals: Daily, Refill(s) 0 Potassium Chloride (Xzj-Opeq-Ljm 10) 10 mEq oral tablet, extended release: [...] = 0.5 tab(s), Oral, Daily Potassium Chloride (Orf-Eraf-Alh 10) 10 mEq oral tablet, extended release 10 mEq = 1 tab(s), Oral, Daily psyllium oral powder 6 gm, Oral, BID rivastigmine 13.3 mg/24 hr transdermal film, extended release 1 patch(es), Topical, Daily tamsulosin 0.4 mg Cap 0.4 mg = 1 cap(s), Oral, Bedtime Problem list: All Problems History of prostate cancer / SNOMED CT 5039645076 / Confirmed Anxiety / SNOMED CT 25576546 / Confirmed Pancreatic insufficiency / SN (more content not included)... [facility] Comment on above: Result Comment: Elec tronically Signed By: Petr PAINTING MD\.br\Date and Time Signed: 06/15/24 17:17 EDT 06-15-2024 Evaluation + Plan note Extrac sterling from: Title:HOPD visit Author:Petr PAINTING MD Date: 06/15/24 Impression and Plan Assessment and Plan: Diagnosis: BPH with obstruction/lower urinary tract symptoms (KTC05-BA N40.1, Billing Diagnosis, Medical), Chronic radiation cystitis (ICD10- CM N30.40, Billing Diagnosis, Medical), Other obstructive and reflux uropathy (RTQ00-EM N13.8, Discharge, Medical), Overactive bladder (HDY02-HC N32.81, Billing Diagnosis, Medical), Personal history of prostate cancer (SIB41-GN Z85.46, Billing Diagnosis, Medical). Additional Plan of [...] PM Scheduled Provider:BARB Salinas APRN, Anabel Anthony Location:[facility] Appointment Type:URO Office Visit [facility] 10-03-2024 Hospital Discharge instructions Patient Education 06/15/2024 [...] your antibiotics and have a great day! [facility] 10-03-2024 NotePatient Education Cystoscopy ? Voiding after [...] if you have a fever over 100 degrees.[facility] 05-01-2024 NoteUrology Office/Clinic Note Chief Complaint [facility], and hx prostate cancer. HPI Staff 83 year old male new patient referred for incontinence, hx of prostate cancer. Dr. Anderson is PCP per 09/14/23 [place] note. Was seeing urologist in [place] but hasn't sen them for 2 years. [...] with voice recognition artificial intelligence software, specifically [employer], [employer] and or [employer]. Substitutions may have occurred due to the [...] [address] Galvez in [place]. No recent PSA or cancer monitoring. Patient [...] 6. 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) use of antithrombotics/antiplatelets) On Plavix Follow-up With When Contact Information CINTHYA SANCHEZ, Petr Richard, URL [address] [place] [id number]- Additional Instructions: schedule cysto Patient Education Prostate Cancer Benign Prostatic Hyperplasia Problem List/Past Medical History Ongoing Acute kidney injury Anemia Anxiety Arthritis Atrial fibrillation Benign prostatic hyperplasia with outflow obstruction Cerebrovascular accident Chronic kidney disease Chronic obstructive pulmonary disease Chronic systolic heart failure Congestive heart failure Deafness Dementia Diabetes Ess[place] (more content not included)...[facility] Result Comment: Electronically Signed By: BARB Salinas APRN, [place] X\.br\Date and Time Signed: 05/01/24 08:58 [id number] NotePatient Education Oncology Prostate Cancer The prostate [...] under a microscope. This is called the Stow score and the total score can range from 6?10, indicating how likely it is that the cancer will spread (metastasize) to other parts of the body. The higher the score, the greater thelikelihood that the cancer will spread. ? Stow 6 or lower: This indicates that the cancer cells look similar to normal prostate cells (well differentiated). ? Earl 7: This indicates that the cancer cells look somewhat similar to normal prostate cells (moderately differentiated). ? Stow 8, 9, or 10: This indicates that [...] implanted intothe prostate gla (more content not included)...[facility]08-13-2024 Evaluation + Plan note Diagnostic Tests Pending * PSA Total 04/25/24 [facility] 08-12-2024 History of Present illness Narrative* [...] Sick sinus syndrome dual-chamber pacemaker, revised to Pembe Panjur Evera XT DR ICD May 2019,with a [...] features (Multi) 10/25/2023 Sacroiliitis, not elsewhere classified ([facility]) 10/25/2023 Idiopathic chronic pancreatitis (Multi) 10/25/2023 Dementia [...] bypass graft 08/30/2023 Coronary artery disease involving [place] coronary artery of [place] heart without angina pectoris 08/30/2023 Obstructive sleep apnea syndrome 08/30/2023 Permanent atrial fibrillation (Multi) 08/30/2023 [facility] 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 08/30/2023 Shortness [...] In Cardiology 5. Coronary artery disease involving [place] coronary artery of [place] heart without angina pectorisrosuvastatin (Crestor) 5 mg tablet 6. Hx of coronary artery bypass graft 7. 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 Follow Up In Cardiology 8. [facility] 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 9. Other specified diabetes mellitus with other specified complication, unspecified whether moth exterminator insulin use (Multi) 10. Obstructive sleep apnea [...] Attestation By signing my name below, I, Carrie Butt LPN , Scribe attest that this documentation has been prepared [...] exam, discussion and plan. [facility] 1(823) 272-377808-12-2024 Instructions* Patient Instructions* Carrie Garcia LPN - [...] through Care Everywhere. * Heart Healthy Diet (Romanian) [facility]: 1(436) 811-614004-10-2024 History of Present illness Narrative* [facility], INTERNATIONAL SALES MANAGER-ELECTRONICS COMPUTER MECHANIC - 12/22/2023 2:00 PM EDT Chief Complaint [...] or Jardiance because of history of pancreatitis. [employer] Evera XT DR ICD May 2019, with [...] contact the office if new symptoms arise. LIQUOR GALLERY OPERATOR in one month [facility]a [facility] MSN, INTERNATIONAL SALES MANAGER-ELECTRONICS COMPUTER MECHANIC, PMHNP-[facility] Please excuse any errors in grammar or translation related to this dictation. Voice recognition software was utilized to prepare this document. documented in this [facility] Work Phone: 1(546) 222-719304-10-2024 Instructions* Patient Instructions* CHARLI Hollingsworth - 12/22/2023 [...] contact the office if new symptoms arise. LIQUOR GALLERY OPERATOR in one month documented in this [facility] Work Phone: 1(240) 174-102803-25-2024 History of Present illness Narrative* CHARLI Hollingsworth [...] the office today his standing blood pressure [id number]. He did not take his Lasix this [...] the back exam room to the front clinical secretary there was no dyspnea noted with [...] failure, systolic, possibly systolic and diastolic, functional [id number] with improvement in TONG with initiation of [...] contact the office if new symptoms arise. LIQUOR GALLERY OPERATOR in 2 weeks [facility] MSN, INTERNATIONAL SALES MANAGER-ELECTRONICS COMPUTER MECHANIC, PMHNP-[facility] Please excuse any errors in grammar or translation related to this dictation. Voice recognition software was utilized to prepare this document. documented in this [facility] Work Phone: 1(679) 779-770603-25-2024 Instructions* Patient Instructions* CHARLI Hollingsworth - 12/06/2023 [...] contact the office if new symptoms arise. LIQUOR GALLERY OPERATOR in 2 weeks documented in this [facility] Work Phone: 1(213) 551-861102-12-2024 History of Present illness Narrative* Rosemary Cartagena MD - 10/25/2023 2:15 PM EST Patient was most easily seen in August 2023 . H/Oatrial fibrillation coronary artery bypass graft obstructive sleep apnea XT DR BINH device implanted 2018. 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 Will start Entresto 0.5 tablets daily. Will need close follow-up, [...] Scribe Attestation By signing my name below, IMonisha LPN, Scribe attest that this documentation has been prepared under the direction and in the presence of Rosemary Cartagena MD. documented in this [facility] Work Phone: 1(234) 824-729502-12-2024 Instructions* Patient Instructions* Monisha Roberts LPN - [...] follow up per routine [facility]: [phone]) 367-977901-04-2024 Evaluation note* Encounter Date Diagnosis Assessment Notes Treatment Notes Treatment Clinical Notes Sep, Diarrhea (ICD-10 - R19.7) [employer] Other 2023 History of Present illness Narrative* Rosemary Cartagena MD - 08/30/2023 10:30 AM EST Referring provider: Justin MARIN. History Of Present Illness: Yoana Ibrahim is a 82 y.o. male presenting with long history of cardiac problems, and is here to establish cardiology visit. Previously was going to [place], patient and want to switch care over to [facility]. Has history of atrial fibrillation coronary artery bypass graft obstructive sleep apnea XT DR MRI device implanted 2018. Do not have [...] 62 bpm Assessment/Plan 1. Permanent atrial fibrillation ([facility]) 2. ICD (implantable cardioverter-defibrillator) in place 3. Sleep apnea, unspecified type 4. Abnormal EKG 5. Hx of coronary artery bypass graft 6. Coronary artery disease, unspecified vessel or lesion type, unspecified whether angina present, unspecified whether [place] or transplanted heart 7. 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 Shortness of breath 9. History of stroke 10. Benign prostatic hyperplasia with lower urinary tract symptoms, symptom details unspecified 11. Ischemic cardiomyopathy 12. Fatigue, unspecified type 13. Other specified diabetes mellitus with other specified complication, unspecified whether long-term insulin use ([facility]) Patient has chronic left heart failure, systolic, [...] 4. Enroll in device clinic-[employer] XT DR 2018 5. Follow-up in 8 weeks at which time further recommendations can be made. Total of 60 minutes reviewing information coordinating care and ordering additional testing. Thank you for allowing me to participate in Mr. Ibrahim's care, please do not hesitate to call if further questions arise, Sincerely, Rosemary Cartagena MD [facility] Provider Attestation - Scribe documentation All medical record entries made by the Scribe were at my direction and personally dictated by me. Ihave reviewed the chart and agree that the record accurately reflects my personal performance of the history, physical exam, discussion and plan. Scribe Attestation By signing my name below, I, Inés AscencioMiroslava ROBERSON , Jhonibmaciej attest that this documentation has been prepared under the direction and in the presence of Rosemary Cartagena MD. [facility] Work Phone: 1([phone]) 265-468512-18-2023 Instructions* Patient Instructions* Monisha Roberts LPN - [...] done in office today [facility] Work Phone: [phone]) 489-634211-30-2023 Evaluation note* Encounter Date Diagnosis Assessment Notes Treatment Notes Treatment Clinical Notes Jul, Diarrhea (ICD-10 - R19.7) [facility] [employer] Other 07-20-2023 Evaluation note* Encounter Date Diagnosis Assessment Notes Treatment Notes Treatment Clinical Notes Mar, Exocrine pancreatic insufficiency (ICD-10 - K86.81) Patient will continue Creon as directed without change Mar, Diarrhea (ICD-10 - R19.7) Patient reports that he still has fecal accidents about 1 every 2 weeks Patient will continue Imodium as direct without change [employer] Other 12-15-2022 Evaluation note* Encounter Date Diagnosis Assessment Notes Treatment Notes Treatment Clinical Notes Aug, Diarrhea (ICD-10 - R19.7) [facility] [employer] Other 12-13-2022 Evaluation note* Encounter Date Diagnosis Assessment Notes Treatment Notes Treatment Clinical Notes Aug, Diarrhea (ICD-10 - R19.7) [facility] [employer] Other 06-29-2022 Evaluation note* Encounter Date Diagnosis Assessment Notes Treatment Notes Treatment Clinical Notes Feb, 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 PATIENT ADVISED WE WILL INCREASE MEDICATION AT THIS TIME. [facility] [employer] Other 04-04-2022 Evaluation note* Encounter Date Diagnosis Assessment Notes Treatment Notes Treatment Clinical Notes Dec, Diarrhea (ICD-10 - R19.7) Dec, Fecal incontinence (ICD-10 - R15.9) [facility] [employer] Other 12-21-2021 Evaluation note* Encounter Date Diagnosis [...] stenosis with neurogenic claudication (ICD-10 - M48.062) [employer] Other 12-13-2021 Evaluation note* Encounter Date Diagnosis [...] of left subclavian vein (ICD-10 - I82.B12) [employer] Other 11-11-2021 Evaluation note* Encounter Date Diagnosis [...] a pacemaker, and he is visiting a roller staker in the near future who will make [...] information on comorbidities such as cardiac status. 11 Jul, 2021 Spondylolisthesis, lumbar region (ICD-10 - M43.16) Jul, Lumbar degenerative disc disease (ICD-10 - M51.36) Jul, Lumbosacral spondylosis without myelopathy (ICD-10 - M47.817) Jul, Age-related osteoporosis without current pathological fracture (ICD-10 - M81.0) Jul, Other specified disorders of bone density and structure, other site (ICD-10 - M85.88) [facility] [employer] Other 10-21-2021 Evaluation note* Encounter Date Diagnosis [...] Tylenol or OTC Lidocaine cream for pain [employer] Other 10-18-2021 Evaluation note* Encounter Date Diagnosis [...] it appropriate. All the questions were answered. [employer] Other 10-05-2021 Evaluation note* Encounter Date Diagnosis Assessment Notes Treatment Notes Treatment Clinical Notes Jun, Lumbar degenerative disc disease (ICD-10 - M51.36) [facility] [employer] Other 10-04-2021 Evaluation note* Encounter Date Diagnosis [...] - M47.817) Stable, proceed with treatment plan. [facility] [employer] Other 10-04-2021 Evaluation note* Encounter Date Diagnosis Assessment Notes Treatment Notes Treatment Clinical Notes Jun, Lower extremity pain (ICD-10 - M79.606) [facility] [employer] Other Evaluation + Plan note Future Appointments Appointment Date:04/25/2024 01:30:00 PM Scheduled Provider:BARB Salinas APRN, [place] X Location:[facility] Appointment Type:URO New Patient [facility] Evaluation + Plan note Future Appointments Appointment Date:10/03/2024 03:30:00 PM Scheduled Provider:Petr PAINTING MD Location:[facility] Appointment Type:URO Office Visit Diagnostic Tests Pending * PSA Total 07/25/24 [facility] evaluation + Plan note Future Appointments Appointment Date:11/22/2024 03:00:00 PM Scheduled Provider:Petr PAINTING MD Location:[facility] Appointment Type:URO Office Visit [facility] evalurebzz noteNo InformationNort [employer] Other Evaluation noteNo assessment information available [facility] Work Phone: Evaluation note* Diagnosis Permanent atrial fibrillation (CMS/HCC)- Primary Atrial fibrillation ICD (implantable cardioverter-defibrillator) in place Sleep apnea, unspecified type Abnormal EKG Nonspecific abnormal electrocardiogram (ECG) (EKG) Hx of coronary artery bypass graft Postsurgical aortocoronary bypass status Coronary artery disease, unspecified vessel or lesion type, unspecified whether angina present, unspecified whether [place] or transplanted heart 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 Shortness of breath History of stroke Transient ischemic attack (TIA), and cerebral infarction without residual deficits Benign prostatic hyperplasia with lower urinary tract symptoms, symptom details unspecified Ischemic cardiomyopathy Other specified forms of chronic ischemic heart disease Fatigue, unspecified type Other specified diabetes mellitus with other specified complication, unspecified whether moth exterminator insulin use (CMS/HCC) [facility] Work Phone: Evaluation note* Diagnosis Abnormal EKG Nonspecific abnormal electrocardiogram (ECG) (EKG) Sleep apnea, unspecified type Permanent atrial fibrillation (CMS/HCC) Atrial fibrillation Shortness of breath documented [facility] Work Phone: Evaluation note* Diagnosis Bipolar disorder, current episode manic severe with psychotic features (CMS/HCC)- Primary Permanent atrial fibrillation (CMS/HCC) Atrial fibrillation Ischemic cardiomyopathy Other specified forms of chronic ischemic heart disease ICD (implantable cardioverter-defibrillator) in place Hx of coronary artery bypass graft Postsurgical aortocoronary bypass status Coronary artery disease involving [place] coronary artery of [place] heart without angina pectoris History of stroke Transient ischemic attack (TIA), and cerebral infarction without residual deficits Other specified diabetes mellitus with other specified complication, unspecified whether long-term insulin use (CMS/HCC) 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 Unspecified essential hypertension 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 Obstructive sleep apnea syndrome Obstructive sleep apnea (adult) (pediatric) Medication course changed Sacroiliitis, not elsewhere classified ([facility]/HCC) Sacroiliitis, not elsewhere classified Idiopathic chronic pancreatitis ([facility]) Dementia in other diseases classified elsewhere, unspecified severity, without behavioral disturbance, psychotic disturbance, mood disturbance, and anxiety ([facility]) Major depressive disorder, recurrent, moderate ([facility]) Major depressive disorder, recurrent episode, moderate Acute embolism and thrombosis of right peroneal vein ([facility]/HCC) Prostate CA ([facility]) Malignant neoplasm of prostate Chronic systolic heart failure ([facility]) Chronic systolic heart failure documented in [facility] encounter [facility] Work Phone: Evaluation note* Diagnosis BMI 29.0-29.9,adult- Primary Ischemic cardiomyopathy Other specified forms of chronic ischemic heart disease 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 Unspecified essential hypertension documented in this encounter [facility] Work Phone: Evaluation note* Diagnosis BMI 31.0-31.9,adult- Primary Ischemic cardiomyopathy Other specified forms of chronic ischemic heart disease documented in this encounter [facility] Work Phone: Evaluation note* Diagnosis Onset Date Resolution Status Exocrine pancreatic insufficiency [facility] Work Phone: Evaluation note* Diagnosis Hyperreflexia- Primary [...] not intractable Cerebrovascular accident (CVA), unspecified mechanism ([facility]) Vertigo Dizziness and giddiness [facility] Diagnosis Congestive heart failure, NYHA class 3, chronic, systolic 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 Unspecified essential hypertension Hx of coronary artery bypass graft Postsurgical aortocoronary bypass status ICD (implantable cardioverter-defibrillator) in place Ischemic cardiomyopathy Other specified forms of chronic ischemic heart disease [facility] 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 Former smoker Personal history of tobacco use, presenting hazards to health Body mass index (BMI) 28.0-28.9, adult Permanent atrial fibrillation (Multi) Atrial fibrillation Parkinson's disease, unspecified whether dyskinesia present, unspecified whether manifestations fluctuate Falls frequently Personal history of fall documented in this encounter [facility] Work Phone: Evaluation note* Diagnosis Permanent atrial fibrillation (Multi) Atrial fibrillation Ischemic cardiomyopathy Other specified forms of chronic ischemic heart disease Congestive heart failure, NYHA class 3, chronic, systolic (Multi) 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 artery disease involving [place] coronary artery of [place] heart without angina pectoris Hx of coronary artery bypass graft Postsurgical aortocoronary bypass status 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 Unspecified essential hypertension 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 Other specified diabetes mellitus with other specified complication, unspecified whether moth exterminator insulin use (Multi) Obstructive sleep apnea syndrome Obstructive sleep apnea (adult) (pediatric) History of stroke Transient ischemic attack (TIA), and cerebral infarction without residual deficits Stage 3b chronic kidney disease (Multi) BMI 29.0-29.9,adult Former smoker Personal history of tobacco use, presenting hazards to health Nonrheumatic mitral valve regurgitation Nonrheumatic aortic valve insufficiency documented in [facility] encounter [facility] Work Phone: Evaluation note* Diagnosis Periodic limb movement disorder- Primary Gait difficulty Abnormality of gait Balance problem Abnormality of gait Radiculopathy, lumbosacral region Thoracic or lumbosacral neuritis or radiculitis, unspecified Memory loss documented in this encounter [facility]* Diagnosis [facility] 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- Primary Congestive heart failure, NYHA class 3, chronic, systolic Nonrheumatic mitral valve regurgitation Obstructive sleep apnea syndrome Obstructive sleep apnea (adult) (pediatric) Falls frequently Personal history of fall Hx of coronary artery bypass graft Postsurgical aortocoronary bypass status Body mass index (BMI) of 30.0-30.9 in adult Permanent atrial fibrillation (Multi) Atrial fibrillation Ischemic cardiomyopathy Other specified forms of chronic ischemic heart disease Coronary artery disease involving [place] coronary artery of [place] heart without angina pectoris 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 Unspecified essential hypertension Former smoker Personal history of tobacco use, presenting hazards to health documented in this encounter [facility] Work Phone: Evaluation note* Diagnosis Persistent atrial fibrillation (Multi)- Primary Atrial fibrillation ICD (implantable cardioverter-defibrillator) in place [facility] 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 Parkinson's disease, unspecified whether dyskinesia present, unspecified whether manifestations fluctuate Falls frequently Personal history of fall documented in this encounter [facility] Work Phone: Hisplrv general Narrative - Reported* Type Description Date Medical History degenerative disc disease Medical History stenosis Medical History bladder cancer Medical History stroke Medical History DM 2 Surgical History APPENDECTOMY Surgical History CHOLECYSTECTOMY Surgical History bilateral knee replacements Surgical History cardiac pacemaker Surgical History bladder stimulator Surgical History open heart surgery Hospitalization History see above [facility] [employer] Other Hispcpc general Narrative - Reported* Type Description Date Medical History degenerative disc disease Medical History stenosis Medical History bladder cancer Medical History stroke Medical History DM 2 Medical History DVT Surgical History APPENDECTOMY Surgical History CHOLECYSTECTOMY Surgical History bilateral knee replacements Surgical History cardiac pacemaker Surgical History bladder stimulator Surgical History open heart surgery Surgical History cataract-lens implants RACHELLE. Hospitalization History see above [facility] [employer] Other Hospital course Narrative No data available for this section [facility] [employer] Hospital Discharge instructions No data available for this section [facility] [employer] Progress note No data available for this section [facility] [employer] Reason for referral (narrative)* Consultation (Routine) - Authorized Specialty Diagnoses / Procedures Referred By Contac t Referred To Contact Cardiology Diagnoses Permanent atrial fibrillation (CMS/HCC) Ischemic cardiomyopathy ICD (implantable cardioverter-defibrillator) in place 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 Procedures Follow Up In Cardiology Rosemary Cartagena MD [address] [place] [address] [address] [place] [address] [facility], INTERNATIONAL SALES MANAGER-ELECTRONICS COMPUTER MECHANIC [address] [facility] 2, [facility] [address] [place] [address] Referral ID Status Reason Start Date Expiration Date V isits Requested Visits Authorized [id number] Authorized 10/25/2023 10/24/2024 1 1 * Consultation (Routine) - Authorized Specialty Diagnoses / Procedures Referred By Contac t Referred To Contact Sleep Medicine Diagnoses Obstructive sleep apnea syndrome Rosemary Cartagena MD [address] [address] Referral ID Status Reason Start Date Expiration Date Visits Requested Visits Authorized [id number] Authorized Specialty Services Required 10/25/2023 10/24/2024 1 1 * Consultation (Routine) - Authorized Specialty Diagnoses / Procedures Referred By Contac t Referred To Contact Cardiology Diagnoses Permanent atrial fibrillation (CMS/HCC) Ischemic cardiomyopathy ICD (implantable cardioverter-defibrillator) in place 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 Procedures Follow Up In Cardiology Rosemary Cartagena MD [address] [place] [id number] Rosemary Cartagena MD [address] [place] [id number] Referral ID Status Reason Start Date Expiration Date V isits Requested Visits Authorized [id number] Authorized 10/25/2023 10/24/2024 1 1 [facility] Work Phone: Reyirk for referral (narrative)* Consultation (Routine) - Authorized Specialty Diagnoses / Procedures Referred By Contac t Referred To Contact Cardiology Diagnoses Ischemic cardiomyopathy Procedures Follow Up In Cardiology [facility] Heart, MARISEL-ELECTRONICS COMPUTER MECHANIC [address] [facility] [address], [address] [address] Referral ID Status Reason Start Date Expiration Date V isits Requested Visits Authorized [id number] Authorized 12/06/2023 12/05/2024 1 1 [facility] Work Phone: Renema for referral (narrative)* Consultation (Routine) - Authorized Specialty Diagnoses / Procedures Referred By Contac t Referred To Contact Cardiology Diagnoses Ischemic cardiomyopathy Procedures Follow Up In Cardiology [facility]a Heart, INTERNATIONAL SALES MANAGER-ELECTRONICS COMPUTER MECHANIC [address] [facility] 2, [address] [place] [address] Referral ID Status Reason Start Date Expiration Date V isits Requested Visits Authorized [id number] Authorized 12/22/2023 12/21/2024 1 1 [facility] Work Phone: Rejrvf for referral (narrative)* Consultation (Routine) - Authorized Specialty Diagnoses / Procedures Referred By Contac t Referred To Contact Cardiology Diagnoses Congestive heart failure, NYHA class 3, chronic, systolic (Multi) Procedures Follow Up In Cardiology Rosemary Cartagena MD [address] [facility] [address] [place] [address] Rosemary Cartagena MD [address] [facility] [address] [place] [address] Referral ID Status Reason Start Date Expiration Date V isits Requested Visits Authorized [id number] Authorized 04/24/2024 04/24/2025 1 1 T [facility] Work Phone: reason for visit Narrative* Consultation (Routine) - Authorized Specialty Diagnoses / Procedures Referred By Contac t Referred To Contact Cardiology Diagnoses ICD (implantable cardioverter-defibrillator) in place [facility] 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 Parkinson's disease, unspecified whether dyskinesia present, unspecified whether manifestations fluctuate Falls frequently Rosemary Cartagena MD [address] [facility] [address] [place] [address] Phone: tel: fax: Fabiano Pickering MD [address] [facility] [address] [place] [address] Phone: tel: fax: Referral ID Status Reason Start Date Expiration Date Visits Requested Visits Authorized [id number] Authorized Specialty Services Required 4 07/27/2025 1 1 [facility] Work Phone: Summary Purpose Family History No [...] FoundDocuments on File Type Date Recorded Patient Fiscal Officer Expl anation Advance Directives and Livin g Will Advance Directives and Livin g Will 10/15/2013 9:06 AM Power of Venture Capital Analyst Power of Venture Capital Analyst 10/15/2013 9:06 AM Latest Code Status on [...] of his home medications were given to automobile and property underwriter & automobile and property underwriter sent medication to pharmacy for verification. Patients [...] Lumbar degenerative disc disease (M51.36) Referral Organization [facility] Pain Managemen t Referring Provider First Name Ryder Referring Provider Last Name Ranjeet Referring Provider Specialty Pain Medici ne Referred Organization [facility] Ne urosurgery Referred Provider Maciej Maciel Dale Referred Address [address],[address] Referred Provider Specialty Neurological Surgery Referral Priority Routine General Notes Tarsha Nieto V 02:53:20 PM >Patient had CT scan of the lumbar spine in [place] earlier this year. He has a pacemaker/defibrillator and cannot have MRI Reason *FU 06/24 eval and treat Diagnosis 1 Lower extremity pain (M79.606) Referral Organization [facility] Pain Managemen t Referring Provider First Name Ryder Referring Provider Last Name Ranjeet Referring Provider Specialty Pain Medici ne Referred Organization [facility] Vascular Surge ry Referred Provider Abdon Jackman Referred Address [address] [facility] [address],[place], [place],[address] Referred Provider Specialty Vascular Laila haresh Referral Priority Routine General Notes HernandezSadaf 10:25:46 AM >p2p sent Reason Evaluate and Treat Diagnosis 1 Spondylolisthesis, l umbar region (M43.16) Referral Organization [facility] Ne urosurgery Referring Provider First Name Osvaldo Referring Provider Last Name Raheem Referring Provider Specialty Neurologica l Surgery Referred Organization [place] Referred Address [address] [place], [place],[address] Referred Provider Specialty Physical The rapist Referral Priority Routine Specialty Diagnoses / Procedures Referred By Godwin t Referred To Contact Cardiology Diagnoses Abnormal EKG Sleep apnea, unspecified type Permanent atrial fibrillation (CMS/HCC) Shortness of breath Procedures Transthoracic Echo (TTE) Complete SD ECHO TRANSTHORC R-T 2D W/WO M-MODE REC F-UP/LMTD SD DOP ECHOCARD COLOR FLOW VELOCITY MAPPING SD DOP ECHOCARD PULSE WAVE W/SPECTRAL F-UP/LMTD STD Rosemary Cartagena MD [address] [address] Referral ID Status Reason Start Date Expiration Date Visits Requested Visits Authorized [id number] Pending Review Perform Procedure 3 08/29/2024 1 1 Specialty Diagnoses / Procedures Referred By Godwin t Referred To Contact Cardiology Diagnoses ICD (implantable cardioverter-defibrillator) in place Ischemic cardiomyopathy Rosemary Cartagena MD [address] [address] Referral ID Status Reason Start Date Expiration Date Visits Requested Visits Authorized [id number] Authorized Specialty Services Required 3 08/29/2024 1 1 Specialty Diagnoses / Procedures Referred By Godwin t Referred To Contact Diagnoses ICD (implantable cardioverter-defibrillator) in place Permanent atrial fibrillation (CMS/HCC) Procedures ECG 12 Lead Rosemary Cartagena MD 254 [facility] [address] [place] [address] Referral ID Status Reason Start Date Expiration Date V isits Requested Visits Authorized [id number] Pending Review 08/30/2023 08/29/2024 1 1 Specialty Diagnoses / Procedures Referred By Contac t Referred To Contact Cardiology Diagnoses Permanent atrial fibrillation (CMS/HCC) Ischemic cardiomyopathy Procedures Follow Up In Cardiology Rosemary Cartagena MD [address] [facility] [address] [place] [address] Rosemary Cartagena MD 254 [facility] [address] [place] [address] Referral ID Status Reason Start Date Expiration Date V isits Requested Visits Authorized [id number] Authorized 08/30/2023 08/29/2024 1 1 Specialty Diagnoses / Procedures Referred By Contac t Referred To Contact Physical Therapy Diagnoses Gait difficulty Balance problem Procedures SD OFFICE/OUTPATIENT NEW HIGH MDM 60 MINUTES Viky Rollins PA [address] [place] [address] Referral ID Status Reason Start Date Expiration Date Visits Requested Visits Authorized [id number] Authorized Specialty Services Required 06/14/2024 12/11/2024 10 10 Specialty Diagnoses / Procedures Referred By Contac t Referred To Contact Radiology Diagnoses Hyperreflexia Balance problem Procedures CT cervical spine wo IV contrast Viky Rollins PA [address] [place] [address] [facility] Scheduling [address] [place] [address] Referral ID Status Reason Start Date Expiration Date Visits Re quested Visits Authorized [id number] Closed 06/13/2024 12/10/2024 1 1 Specialty Diagnoses / Procedures Referred By Contac t Referred To Contact Radiology Diagnoses Gait difficulty Balance problem Procedures CT head wo IV contrast Viky Rollins PA [address] [place] [address] [facility] Scheduling [address] [place] [address] Referral ID Status Reason Start Date Expiration Date Visits Re quested Visits Authorized [id number] Closed 06/13/2024 12/10/2024 1 1 Chief Complaint [...] section and content) DATE CREATED AUTHOR 03/02/2018 [facility] DATE CREATED AUTHOR AUTHOR'S ORGANIZ ATION 06/26/2019 [facility] DATE CREATED AUTHOR AUTHOR'S ORGANIZ ATION 09/04/[address] [facility] DATE CREATED AUTHOR AUTHOR'S ORGANIZ ATION 06/01/[address] [facility] DATE CREATED AUTHOR AUTHOR'S ORGANIZ ATION 08/27/2024 [facility] EPIC DATE CREATED AUTHOR AUTHOR'S ORGANIZ ATION 09/04/2024 [facility] DATE CREATED AUTHOR AUTHOR'S ORGANIZ ATION 09/09/2024 [facility] DATE CREATED AUTHOR AUTHOR'S ORGANIZ ATION 10/04/2024 [facility] DATE CREATED AUTHOR AUTHOR'S ORGANIZ ATION 10/13/2024 [facility] Reason for Visit (unrecogniz ed section and content) Status Reason Specialty Diagnoses / Procedures Referre d By Contact Referred To Contact Diagnoses S/P ICD (internal cardiac 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 [place], [place] [facility] Reason Comments New Patient Visit Re-establish Specialty Diagnoses / Procedures Referred By Contac t Referred To Contact Diagnoses ICD (implantable cardioverter-defibrillator) in place Permanent atrial fibrillation (CMS/HCC) Procedures ECG 12 Lead Rosemary Cartagena MD 254 [facility] [address] [place] [address] Referral ID Status Reason Start Date Expiration Date V isits Requested Visits Authorized [id number] Pending Review 08/30/2023 08/29/2024 1 1 Specialty Diagnoses / Procedures Referred By Contac t Referred To Contact Cardiology Diagnoses Abnormal EKG Sleep apnea, unspecified type Permanent atrial fibrillation (CMS/HCC) Shortness of breath Procedures Transthoracic Echo (TTE) Complete SD ECHO TRANSTHORC R-T 2D W/WO M-MODE REC F-UP/LMTD SD DOP ECHOCARD COLOR FLOW VELOCITY MAPPING SD DOP ECHOCARD PULSE WAVE W/SPECTRAL F-UP/LMTD STD Rosemary Cartagena MD 254 [facility] [address] [place] [address] Referral ID Status Reason Start Date Expiration Date Visits Requested Visits Authorized [id number] Pending Review Perform Procedure 08/29/2024 1 1 Reason Comments Follow-up 8 week Specialty Diagnoses / Procedures Referred By Contac t Referred To Contact Cardiology Diagnoses Permanent atrial fibrillation (CMS/HCC) Ischemic cardiomyopathy Procedures Follow Up In Cardiology Rosemary Cartagena MD 254 [facility] [address] [place] [address] Rosemary Cartagena MD [address] [place] [address] [facility] [address] [place] [address] Referral ID Status Reason Start Date Expiration Date V isits Requested Visits Authorized [id number] Authorized 08/30/2023 08/29/2024 1 1 Reason Comments Follow-up 6 week per GM Specialty Diagnoses / Procedures Referred By Contac t Referred To Contact Cardiology Diagnoses Permanent atrial fibrillation (CMS/HCC) Ischemic cardiomyopathy ICD (implantable cardioverter-defibrillator) in place 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 Procedures Follow Up In Cardiology Rosemary Cartagena MD 254 [facility] [address] [place] [address] [facility], INTERNATIONAL SALES MANAGER-ELECTRONICS COMPUTER MECHANIC [address] [facility] [address], [facility] [address] [place] [address] Referral ID Status Reason Start Date Expiration Date V isits Requested Visits Authorized [id number] Authorized 10/25/2023 10/24/2024 1 1 Reason Comments Follow-up 2w Specialty Diagnoses / Procedures Referred By Contac t Referred To Contact Cardiology Diagnoses Ischemic cardiomyopathy Procedures Follow Up In Cardiology [facility], INTERNATIONAL SALES MANAGER-ELECTRONICS COMPUTER MECHANIC [address] [facility] [address], [facility] [address] [place] [address] Referral ID Status Reason Start Date Expiration Date V isits Requested Visits Authorized [id number] Authorized 12/06/2023 12/05/2024 1 1 Reason Comments Back Pain Memory Loss Reason Comments Back Pain Parkinson's Disease Reason Comments Follow-up 3 month Specialty Diagnoses / Procedures Referred By Contac t Referred To Contact Cardiology Diagnoses Congestive heart failure, NYHA class 3, chronic, systolic Procedures Follow Up In Cardiology Rosemary Cartagena MD [address] [address] Phone: tel: fax: Rosemary Cartagena MD [address] [place] [address] Phone: tel: fax: Referral ID Status Reason Start Date Expiration Date V isits Requested Visits Authorized [id number] Authorized 04/24/2024 04/24/2025 1 1 Reason Comments Follow-up 4m with sp Specialty Diagnoses / Procedures Referred By Contac t Referred To Contact Cardiology Diagnoses Permanent atrial fibrillation (Multi) Ischemic cardiomyopathy ICD (implantable cardioverter-defibrillator) in place 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 Procedures Follow Up In Cardiology Rosemary Cartagena MD [address] [address] Rosemary Cartagena MD [address] [address] Referral ID Status Reason Start Date Expiration Date V isits Requested Visits Authorized [id number] Authorized 10/25/2023 10/24/2024 1 1 Reason Comments Follow-up Symptoms Care Teams (unrecognized sec tion and content) Team Status: Active Member Role Status Dates Shanique Anderson DO Primary Care Provider Active Team Status: Inactive Member Role Status Dates Shanique Anderson DO Primary Care Provider, Attending Hilary rockwell Active End Worker Relationship Specialty Start Date End Date Shanique Anderson, DO [address] [place] [address] PCP - General Family Medicine 08/30/23 Team Status: Inactive Member Role Status Dates Shanique Anderson DO Primary Care Provider Active Rosemary Cartagena MD Attending Provider Active End Worker Relationship Specialty Start Date End Date Shanique Anderson, DO [address] [place] [address] PCP - General Family Medicine 08/30/23 End Worker Relationship Specialty Start Date End Date Shanique Anderson DO [address] [place] [address] PCP - General Family Medicine 08/30/23 Team Status: Inactive Member Role Status Dates Shanique Anderson DO Primary Care Provider Active Start: December 03, 2023 End: December 03, 2023 Rosemary Cartagena MD Attending Provider Active Star t: December 03, 2023 End: December 03, 2023 End Worker Relationship Specialty Start Date End Date Shanique Anderson DO [address] [place] [address] PCP - General Family Medicine 08/30/23 End Worker Relationship Specialty Start Date End Date Shanique Anderson DO [address] [place] [address] PCP - [facility] Medicine 08/30/23 Team Status: Inactive Member Role [...] June 07, 2024 End: June 07, 2024 End Worker Relationship Specialty Start Date End Date Unallocated, William Vaughan MD [address] [facility] [address] PCP - General Family Medicine 12/06/23 Viky Rollins PA [address] [place] [address] Physician Vending Route Servicer Neurology 12/06/23 End Worker Relationship Specialty Start Date End Date Unallocated, William Vaughan MD [address] [place] [address] PCP - General Family Medicine 12/06/23 Viky Rollins PA [address] [place] [address] [address] Vending [address] Servicer Neurology 12/06/23 Team Status: Active Member Role Status Dates Shanique Anderson DO Primary Care Provider Active Start: June 07, 2024 Rosemary Cartagena MD Other Provider Active Start: [facility] 2023 Tex Carranza MD Attending Provider Active Start: June 07, 2024 Team Status: Inactive Member Role Status Dates Shanique Anderson DO Primary Care Provider Active Start: June 29, 2024 End: June 29, 2024 Viky Rollins PA-C Attending Provider Active Sta rt: June 29, 2024 End: June 29, 2024 End Worker Relationship Specialty Start Date End Date Unallocated, William Vaughan MD [address] [place] [address] PCP - General Family Medicine 12/06/23 Viky Rollins PA [address] [place] [address] [address] V[address] Servicer Neurology 12/06/23 End Worker Relationship Specialty Start Date End Date Unallocated, William Vaughan MD [address] [place] [address] PCP - General Family Medicine 12/06/23 Viky Rollins PA [address] [address] Physician Vending Route Servicer Neurology 12/06/23 End Worker Relationship Specialty Start Date End Date Shanique Anderson DO [address] [place] [address] PCP - General Family Medicine 08/30/23 End Worker Relationship Specialty Start Date End Date Shanique Anderson MD [address] [place] [id number] PCP - General Family Medicine 08/24/24 Viky Rollins PA [address] [place] [id number] Physician Vending Route Servicer Neurology 12/06/23 End Worker Relationship Specialty Start Date End Date Shanique Anderson DO [address] [place] [address] PCP - General Family Medicine 08/30/23 End Worker Relationship Specialty Start Date End Date Shanique Anderson MD [address] [place] [address] PCP - General Family Medicine 08/24/24 Viky Rollins PA [address] [address] Physician Vending Route Servicer Neurology 12/06/23 End Worker Relationship Specialty Start Date End Date Shanique Anderson DO [address] [place] [address] PCP - General Family Medicine 08/30/23 End Worker Relationship Specialty Start Date End Date Shanique Anderson DO [address] [place] [address] PCP - General Family Medicine 08/30/23 Goals (unrecognized section and content) Goals may [...] BE BASED ON THE PRIMARY CLINICAL RECORDS. [facility] [employer] [facility]. provides no warranty or guarantee of the accuracy or completeness of information in this document.
[2024-10-13 12:33] LABS: Basophils Percent Auto 0.6 % (0.2-2.0); Eosinophils Absolute Auto 0.1 10^3/uL (0.0-0.7); Eosinophils Percent Auto 1.6 % (0.9-7.0); Hematocrit 32.8 % (42.0-54.0); Hemoglobin 10.9 g/dL (14.0-18.0); Immature Granulocytes Abs Auto 0.02 10^3/uL (0.00-0.03); Immature Granulocytes Pct Auto 0.3 % (0.0-0.5); Lymphocytes Percent Auto 14.6 % (20.5-60.0); Mean Corpuscular HGB Conc 33.2 g/dL (29.9-35.2); Mean Corpuscular Hemoglobin 33.3 pg (25.9-34.0); Mean Corpuscular Volume 100.3 fL (80.0-94.0); Mean Platelet Volume 9.3 fL (9.5-13.5); Monocytes Absolute Auto 0.8 10^3/uL (0.3-0.8); Monocytes Percent Auto 12.1 % (1.7-12.0); Neutrophils Absolute Auto 4.8 10^3/uL (1.4-6.5); Neutrophils Percent Auto 70.8 % (43.0-75.0); Platelet Count 199 10^3/uL (150-450); Red Blood Count 3.27 10^6/uL (4.70-6.10); Red Cell Distribution Width 12.8 % (11.0-15.0); White Blood Count 6.8 10^3/uL (4.0-11.0)
== END 2024-10-13 12:16 | disposition home or self-care (01) ==
LOC: LAB 12:16
PROVIDERS: PCP Family Medicine
DX: I48.91 Unspecified atrial fibrillation (principal)
CPT/HCPCS: 36415; 85025

== ENCOUNTER 2024-10-13 12:17 | Outpatient (OUT) | payer MEDICARE, OTHER, SELFPAY ==
--- OUTSIDE RECORDS SUMMARY | 2024-10-13 12:26 | XMS_ITS | CCD ---
Author Organization [facility] Care Team Providers Care [facility] Engineer Name Role Phone FABIANO WILL Unavailable Unavailable BRISTOL, SHANIQUE E Unavailable Unavailable [place], [place] E Primary Care Provider [phone] RAÚL VALE Referring Unavailable BRISTOL, SHANIQUE E Primary Care Unavailable RAÚL VALE Admitting Unavailable RAÚL VALE Attending Unavailable Ryder Pollack Unavailable Glenda Guillen Unavailable Abdon Jackman Unavailable [phone] Osvaldo Maciel Unavailable Alexei Van Unavailable JUSTIN, [...] Unavailable DO Shanique Anderson Primary Care Provider [phone] DO Shanique Anderson Attending Provider Shanique Anderson DO Primary Care Prov ider DO Shanique Anderson Primary Care Provider MD Rosemary Cartagena Attending Provider [place], DO Shanique Primary Care Provider MD Rosemary Cartagena Attending Provider [phone] ROBERT Rollins Attending Provider MARISEL Heart Other Provider [phone] [place], DO Shanique Primary Care Provider [phone] MD Rosemary Cartagena Attending Provider JUSTIN SHANIQUE Primary Care Physician [phone] ROSEMARY CARTAGENA Referring Unavailable BRISTOL, SHANIQUE SHRADDHA TERESO Primary Care Unav ailable [place], DO [place] Primary Care Provider MD Rosemary Cartagena Attending Provider Unallocated , William Provider [facility] Viky Sage Unavailable ROBERT Rollins Attending Provider Shanique Anderson MD Primary Care Provider VIKY [...] SHANIQUE SHRADDHA TERESO Primary Care Unav ailable EVANS [...] Rosemary Attending Unavailable Cartagena, Rosemary Admitting Unavailable [place], [place] Primary Care Unavailable Cartagena, Rosemary Attending Unavailable Cartagena, Rosemary Admitting Unavailable [place], [place] Primary Care Unavailable [place], [place] Primary Care Unavailable Cartagena, Rosemary Attending Unavailable Cartagena, Rosemary Admitting Unavailable [place], [place] Primary Care Unavailable Lowe, Viky Admitting Unavailable Lowmaciej Viky Attending Unavailable [facility] Unavailable [place], Shanique Primary Care Unavailable Cartagena, Rosemary Attending Unavailable Cartagena, Rosemary Admitting Unavailable [place], [place] Primary Care Unavailable Cartagena, Rosemary Admitting Unavailable Cartagena, Rosemary Attending Unavailable [place], Shanique Primary Care Unavailable Osiel, Rosemary Attending Unavailable Cartagena, Rosemary Admitting Unavailable Lowe, Viky Admitting Unavailable Mayank Rollinsa Attending Unavailable [place], [place] Primary Care Unavailable Petr PAINTING Attending Unavailable [...] sources) canagliflozin Drug Allergy 04-01-20 Unknown Reaction [facility] exenatide (2 sources) exenatide Drug Allergy 04-01-20 23 Unknown Reaction [facility] fexofenadine (2 sources) fexofenadine Drug Allergy 04-01-20 Hives [facility] liraglutide (2 sources) liraglutide Drug Allergy 04-01-20 Unknown Reaction [facility] NSAIDs (2 sources) Ibuprofen Drug Allergy 04-01-20 23 Unknown Reaction [facility] Opioid Agonists (6 sources) Codeine Drug Allergy 08-28-20 Hallucinating, Sweat [facility] rOPINIRole (2 sources) rOPINIRole Drug Allergy 07-20-20 23 Unknown Reaction [facility] SITagliptin (2 sources) SITagliptin Drug Allergy 04-01-20 23 Unknown Reaction [facility] (1 source) Acetaminophen / oxyCODONE Drug Allergy 07-27-20 16 Other (See Comments) [place] (20 sources) Codeine; Translations: [codeine] Drug Allergy 12-17-19 10 Other (See Comments), Unknown, Unknown (qualifier value) [place] (20 sources) exenatide; Translations: [exenatide] Drug Allergy 04-08-20 16 Unknown, Unknown (qualifier value) [place] (10 sources) fexofenadine; Translations: [fexofenadine] Drug Allergy 02-04-20 12 Itching, Unknown, Unknown (qualifier value) [place] (1 source) fexofenadine Drug Allergy 07-27-20 16 Itching [place] (18 sources) Ibuprofen Drug Allergy 04-04-20 18 Unknown Reaction, Unknown [place] (20 sources) liraglutide; Translations: [liraglutide] Drug Allergy 12-03-19 17 Unknown, Unknown (qualifier value) [place] (7 sources) Meperidine; Translations: [Demerol] Drug Allergy 02-04-20 12 Swelling, Bilateral upper limb edema [place] (9 sources) SITagliptin Drug Allergy 05-06-20 15 Unknown Reaction [place] (1 source) Other Propensity to adverse reactions 05-06-20 15 Itching [place] (11 sources) fexofenadine; Translations: [FEXOFENADINE] Drug Allergy 08-28-20 21 Hives [facility] (20 sources) Meperidine; Translations: [meperidine] Drug Allergy 08-28-20 21 [facility] (10 sources) Morphine; Translations: [morphine] Drug Allergy 08-28-20 21 Hallucinating [facility] (20 sources) canagliflozin; Translations: [CANAGLIFLOZIN] Drug Allergy 08-28-20 21 Unknown [facility] (20 sources) Codeine Drug Allergy Unknown [facility] Other (20 sources) fexofenadine; Translations: [Hermila] Drug Allergy 06-12-20 15 Unknown [facility] (15 sources) Ibuprofen Drug Allergy Unknown [facility] Other (20 sources) rOPINIRole Drug Allergy Unknown [facility] Other (20 sources) SITagliptin Drug Allergy Unknown [facility] Other (1 source) Codeine Drug Allergy 06-12-20 15 [facility] (2 sources) exenatide Drug Allergy [facility] (3 sources) liraglutide; Translations: [Victoza] Drug Allergy [facility] (1 source) SITagliptin Drug Allergy 08-24-20 15 [facility] (9 sources) rOPINIRole; Translations: [ropinirole] Drug Allergy 08-28-20 21 Unknown Reaction [facility] (5 sources) canagliflozin; Translations: [canagliflozin] Drug Allergy Unknown (qualifier value) [facility] (7 sources) Fish Oils; Translations: [FISH OIL] Drug Allergy 04-24-20 24 [facility] Rep[facility] (10 sources) fexofenadine / Pseudoephedrine Drug Allergy 06-22-20 06 Hives [facility] (10 sources) Meperidine Drug Allergy 08-22-20 10 Swelling [facility] (1 source) canagliflozin Drug Allergy 04-03-20 [facility] Rep[facility] (1 source) Codeine Drug Allergy 04-03-20 [facility] (1 source) exenatide Drug Allergy 04-03-20 [facility] (1 source) Ibuprofen Drug Allergy 04-03-20 [facility] (1 source) liraglutide Drug Allergy 04-03-20 [facility] (1 source) SITagliptin Drug Allergy 04-03-20 [facility] Repository (1 source) Byetta Prefilled Pen; Translations: [Byetta Prefilled Pen] Propensity to adverse reactions (disorder) [facility] Repository Medications Current Medications Medication Drug Class(es) [...] hrs for 10 day(s) Jul, Active amylase 57735 unt / lipase 23908 unt / protease 09594 unt delayed release oral capsule (20 sources) Start: 03-02-2023 take 1 capsule by mouth three times daily Creon 12,000 units oral delayed release capsule = 1 cap(s), Oral, TID, Refills(s) 0 Start Date: 04/25/24 Status: Ordered Start: 03-19-2021 End: 04-03-2024 take 3 capsules by mouth three times daily at mealtime, then take 2 capsules by mouth twice daily Vmovcf-Laityifh-Lvtjxcf (Creon) 3,000-9,500- 15,000 unit capsule,delayed release(DR/EC) Active [...] (morning, midday, late afternoon). 04/08/2016 Active amylases 22319 unt / endopeptidases 9500 unt / lipase [...] 04/25/24 Status: Ordered take 2 tablets by [facility] once daily Eliquis 5 MG as directed Orally 2 tablets once daily Active azelastine hydrochloride 0.137 mg/actuat metered dose nasal spray (10 sources) Histamine-1 Receptor Antagonist Start: 12-20-2023 azelastine (Astelin) 0.1 % nasal spray 12/20/2023 Active Biotin (1 source) take 91541 [IU] by mouth twice daily BIOTIN PO [...] Ordered Start: 09-14-2023 take 1 tablet by [facility] once daily Calcium Carb-Cholecalciferol (OYSCO 500 + D) 500-5 MG-MCG tablet Take 1 tablet by mouth Daily 09/14/2023 Active Start: 06-12-2019 take 1 tablet by [facility] twice daily at mealtime 1 tablet, [...] Start: 09-11-2021 take 2 tablets by mo [facility] once daily Calcium Carbonate-Vitamin D3 (Oyster Shell [...] Start: 03-07-2019 take 3000 [IU] by mo [facility] once daily Cholecalciferol (Vitamin D3) Active 3000 UNIT Oral Daily with supper March 07, 2019 6:55pm Start: 03-07-2019 End: 09-11-2021 take 3 tablets by mouth once daily Cholecalciferol (Vitamin D3) (Vitamin D3) 1,000 unit Tablet Discontinued 3000 UNIT PO Daily with supper March 07, 2019 12:00am September 11, 2021 10:18am take 1 tablet by [facility] once daily cholecalciferol (Vitamin D-3) 5,000 Units tablet Take 1 tablet (5,000 Units) by mouth once daily. Active take 3 tablets by [facility] every twenty-four hours Vitamin D3 25 MCG (1000 UT) 3 tablet Orally Once a day Active ciprofloxacin 500 mg oral tablet (3 sources) Quinolone Antimicrobial Start: 05-01-2024 Cipro 500 mg Tab See Instructions, Take 1 tab day prior to procedure and 1 tab day of procdure - afterwards, # 2 tab(s), Refills(s) 0, Pharmacy: [facility]/pharmacy #[id number], 167, cm, 04/25/24 13:59:00 EDT, Height/Length Dosing, 72, kg, 04/25/24 13:59:00 EDT, Weight Dosing Start Date: 05/01/24 Status: Ordered clopidogrel 75 mg oral tablet (20 sources) P2Y12 Platelet Inhibitor Start: 05-07-2015 End: 09-01-2025 take 1 tablet by mouth once daily clopidogrel 75 mg Tab 75 mg = 1 tab(s), Oral, Daily, Refills(s) 0 Start Date: 04/25/24 Status: Ordered Creon 48527 UNIT (20 sources) Creon 64778 UNIT 3 WITH MEALS 2 WITH SNACK Orally three times daily for 90 day(s) Active Creon 50586 UNIT 2 WITH MEALS 1 WITH SNACK [...] (3 sources) Start: 06-12-2019 15 g, Oral, NM N, Low blood sugar, Starting Wed06/12/19 at [...] Start: 03-07-2019 End: 04-03-2024 Insulin Glargine (Lantus Aar ostar U-100 Insulin) 100 unit/mL (3 mL) [...] Ordered Start: 08-12-2023 take 1 capsule by [facility] once daily loperamide (Imodium) 2 mg capsule Take 1 capsule (2 mg) by mouth once daily. 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 90 tablet 3 09/01/2024 09/01/2025 Active sacubitril 49 mg / valsartan 51 mg oral tablet (20 sources) Angiotensin 2 Receptor [place] Start: 04-24-2024 End: 09-01-2025 take 0.18935238403 75426 mg by mouth in the evening sacubitriL-valsartan [...] Daily with supper 0 Active Vitamin D3 952305 UNIT/GM (6 sources) Vitamin D3 63769 0 UNIT/GM as directed Orally Once a [...] directed Orally Once a day Not-Taking omega 5-bne-jgy-fish oil (Fish OiL) 1,000 mg (120 mg-180 mg) capsule (1 source) End: 04-24-2024 take 2 capsules by mouth in the morning omega 6-omf-ilk-fish oil (Fish OiL) 1,000 mg (120 mg-180 mg) capsule Take 2 capsules (2,000 mg) by mouth early in the morning.. 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 TB IRON 94 ug/dL 65.0 - 175.0 ug/dL [facility] TB PERCENT IRON SATURATION 40.5 % [facility] TB TOTAL IRON BINDING CAPACITY 232 ug/dL Low 250.0 - 450.0 ug/dL [facility] ECG 12 Leadon 07-30-2024 Please see the EKG r eport as documented on the EKG. [facility] Work Phone: Ambulatory Visit Summaryon 1 [...] 20 mg Tab) potassium chloride (Potassium Chloride (Ast-Cdsp-Xzq 10) 10 mEq oral tablet, extended release) [...] SANCHEZ, Petr Richard Where: [facility] [address] [address]- Medications What How Much When Instructions Unchanged [...] Every day Unchanged potassium chloride (Potassium Chloride (Tkq-Nicr-Pud 10) 10 mEq oral tablet, extended release) [...] receiving van (more content not included)... Normal [facility] Urology Office/Clinic Noteon 07-25-2024 Urology Office/Clinic Note [...] with voice recognition artificial intelligence software, specifically [employer] and or [employer]. Substitutions may have occurred due to the [...] prostate) s/p radiation by Dr Galvez in [place] Unsure of year of treatment or initial [...] -PSA rev (more content not included)... Normal [facility] Comment on above: Result Comment: Elec tronically Signed By: BARB [place] APRN, [place] X\.fabian\Date and Time Signed: 07/25/24 14:18 EST Operative Reporton Operative Report Operative Report Patient: YOANA IBRAHIM Age: 83 years Sex: Male : 1940 Associated Diagnoses: None Author: Petr PAINTING MD Procedure Operative Information Details: Date/ Time: 06/15/2024 18:01:00. Pre-Op Dx: BPH with obstruction/lower urinary tract symptoms (GUL74-PQ N40.1, Billing Diagnosis, Medical), Chronic radiation cystitis (VBX07-PF N30.40, Billing Diagnosis, Medical), Other obstructive and reflux uropathy (WEH63-VJ N13.8, Discharge, Medical), Overactive bladder (NKU22-CZ N32.81, Billing Diagnosis, Medical), Personal history of prostate cancer (YAB01-FA Z85.46, Billing Diagnosis, Medical). Post-Op Dx: Same. [...] Will try beta 3 agonists. . Normal [facility] Comment on above: Result Comment: Elec tronically Signed By: Petr PAINTING MD\.br\Date and Time Signed: 07/03/24 18:[address] cervical spine wo conon 1 CT cervical spine wo [facility] Main [place] [id number] CT Scan Report Signed Patient: Yoana Ibrahim MR#: [id number] : 1940 Acct:[id number] Age/Sex: 83 / M ADM Date: 06/29/24 Loc: [facility] Room: Type: [facility] Attending Dr: Viky Rollins PA-C Copies to: Viky Rollins PA-C Ordering Provider: Viky Rollins PA-C Date of Service: 06/29/24 CT/CT cervical spine wo con: hyperreflexia, balance issues ([id number]) CT/CT head/brain wo con: balance issues, gait [...] Milan Dickerson M.D.06/29/2024 6:26 PM Dictation Location: [place] [address] Transcribed By: [facility] 06/29/241825 Dictated By: Milan Dickerson II, MD 06/29/241820 Signed By: 06/29/241825 Normal [facility] Inpatient Patient Summaryon 06-15-2024 Inpatient Patient Summary Inpatient Patient Summary [place] [address] Clinical Summary Person Information Name: YOANA IBRAHIM Age: 83 Years : 1940 Sex: Male PCP: SHANIQUE ANDERSON DO Marital Status: Unknown Race: White Ethnicity: Non- or Language: Fijian Visit Id: Visit Reason: HX OF PROSTATE CANCER, URINARY INCONTINENCE, BPH WITH LUTS Speciality: Acuity: Enc Type: Outpatient Med Service: Surgery Arrival: 06/15/2024 09:54:01 Discharge: Dispo Type: Address: [address] [place] [phone] Provider Notes: Diagnosis: Problems Active Flank pain [...] Mouth every day. potassium chloride (Potassium Chloride (Kcw-Pamu-Ryd 10) 10 mEq oral tablet, extended release) [...] an appoint (more content not included)... Normal [facility] Main OR Intraoperative Recor don 06-15-2024 Main OR Intraoperative Record Main OR Intraoperative Record IntraOp Document Type FTURO Summary Primary Physician: Petr PAINTING MD Finalized Date/Time: 06/15/24 10:42:27 Pt. Name: YOANA IBRAHIM/Sex: 1940 Male Med Rec #: [id number] Physician: Petr PAINTING MD Financial #: [id number] Pt. Type: O Room/Bed: / Admit/Disch: 06/15/24 [...] Kendall R Role Performed Surgeon - Primary Learning Specialist - Relief Scrub - Primary Time [...] Thapa 06/15/24 10:42 Jayna Thapa 06/15/24 10:42 [facility] Main OR Preoperative Recordo n 06-15-2024 Main OR Preoperative Record Main OR Preoperative Record Holding Area Document Type FTURO Summary Primary Physician: Petr PAINTING MD Finalized Date/Time: 06/15/24 10:17:34 Pt. Name: PATRICEYOANA./Sex: 1940 Male Med Rec #: [id number] Physician: Petr PAINTING MD Financial #: [id number] Pt. Type: O Room/Bed: / Admit/Disch: 06/15/24 [...] Complaints of Pain: No Skin Integrity Intact, [place], Warm, & Dry Vitals - EU Blood Pressure 157/68 Pulse 71 bpm Respirations 18 br/min SPO2 98 % Additional None Specimens Collected Last Modified By: Rosita Russell LPN 06/15/24 10:17:30 Finalized By: Rosita Russell LPN Document Signatures Signed By: Rosita Russell LPN 06/15/24 10:17 Normal [facility] Outpatient Surgery Discharge Instructionon 06-15-2024 Outpatient Surgery Discharge Instruction Outpatient Surgery Discharge Instruction [place] [address] Patient Discharge Instructions PERSON INFORMATION Name: YOANA [...] CALL 911 Follow up: With: Address: When: nAabel Salinas Comments: As discussed, will send a [...] to serve you. Thank you for choosing [facility] Normal [facility] BNP ser/plasOrdered By: Genet Cartagena on 05-10-2024 Natriuretic peptide B (Bld) [Mass/Vol] 252.0 pg/mL High 5-100 [facility] Comment on above: Result Comment: PERF ORMED BY: [place] [address] PATHOLOGIST CUSTOMER SERVICE COORDINATOR TONEY KWON M.D. Performed By: #### B MP, BNP #### [facility] [address] [place] [address] Basic Metabolic Panelon 04-14 GFR/1.73 sq M.predicted MDRD (S/P/Bld) [Vol rate/Area] 38.632 mL/min/{1.73_m2} Normal [facility] Comment on above: Performed By: #### B MP, BNP #### [facility] [address] [place], [place] [id number] [facility] Calcium [Mass/volume] in Ser um or PlasmaOrdered By: Rosemary Cartagena on 05-10-2024 Calcium [Mass/Vol] 8.6 mg/dL Normal 8.6-10.3 [facility] Comment on above: Result Comment: PERF ORMED BY: [place] [address] PATHOLOGIST CUSTOMER SERVICE COORDINATOR TONEY KWON M.D. Performed By: #### B MP, BNP #### [facility] [address] [place], [place] [id number] [facility] Carbon dioxide, total [Moles /volume] in Serum or PlasmaOrdered By: Rosemary Cartagena on 05-10-2024 CO2 [Moles/Vol] 29.1 mmol/L Normal 21.0-31.0 [facility] Comment on above: Performed By: #### B MP, BNP #### [facility] [address] [place] [address] [place] Chloride [Moles/volume] in S ric or PlasmaOrdered By: Rosemary Cartagena on 05-10-2024 Chloride [Moles/Vol] 107 mmol/L Normal 98-107 [facility] Comment on above: Performed By: #### B MP, BNP #### [facility] [address] Creatinine [Mass/volume] in Serum or PlasmaOrdered By: Rosemary Cartagena on 05-10-2024 Creatinine [Mass/Vol] 1.75 mg/dL High 0.70-1.30 [facility] Comment on above: Performed By: #### B MP, BNP #### [facility] [address] [place] [address] [place] Glucose [Mass/volume] in Ser um or PlasmaOrdered By: Rosemary Cartagena on 05-10-2024 Glucose [Mass/Vol] 286 mg/dL High 70-100 [facility] Comment on above: ADA recommended refe rence rangeRandom Glucose Reference Range is dependent on time and content of last meal. Glucose of more than 200 mg/dL in a nonstressed, ambulatory subject supports the diagnosis of Diabetes Mellitus. Result Comment: [place] om Glucose Reference Range is dependent on time and content of last meal. Glucose of more than 200 mg/dL in a nonstressed, ambulatory subject supports the diagnosis of Diabetes Mellitus. ADA recommended reference range Performed By: #### B MP, BNP #### [facility] [address] No Panel InformationOrdered By: Rosemary Cartagena on 05-10-2024 Estimated GFR (CKD-EPI) 38.632 mL/Min [facility] Creatinine Clearance (Chem N/A [facility] Potassium [Moles/volume] in Serum or PlasmaOrdered By: Rosemary Cartagena on 05-10-2024 Potassium [Moles/Vol] 4.7 mmol/L Normal 3.5-5.1 [facility] Comment on above: Performed By: #### B MP, BNP #### [address] Serum or plasma anion gap de terminationOrdered By: Rosemary Cartagena on 05-10-2024 Anion gap [Moles/Vol] 11.6 mmol/L Normal 6.0-15.0 [facility] Comment on above: Performed By: #### B MP, BNP #### [address] Sodium [Moles/volume] in Ser um or PlasmaOrdered By: Rosemary Cartagena on 05-10-2024 Sodium [Moles/Vol] 143 mmol/L Normal 136-145 [facility] Comment on above: Performed By: #### B MP, BNP #### [address] Urea nitrogen [Mass/volume] in Serum or PlasmaOrdered By: Rosemary Cartagena on 05-10-2024 Urea nitrogen [Mass/Vol] 38 mg/dL High 04-06 [facility] Comment on above: Performed By: #### B MP, BNP #### [address] Physician Referralon 024 Physician Referral [phone] [id number] Normal [facility] Basic Metabolic Panelon GFR/1.73 sq M.predicted MDRD (S/P/Bld) [Vol rate/Area] 42.069 mL/min/{1.73_m2} Normal [facility] Comment on above: Performed By: #### T 3T, A1C WTH eA, CMP, LIPID, TSH3, BNP #### [address] head/brain wo/w conon CT head/brain wo/w con [facility] Main [place] [address] [place] [address] CT Scan Report Signed Patient: Yoana Ibrahim MR#: [id number] : 1940 Acct:[id number] Age/Sex: 83 / M ADM Date: 02/18/24 Loc: CT Room: Type: [facility] Attending Dr: Viky Rollins PA-C Copies to: [...] Mo Collier M.D.02/18/2024 4:25 PM Dictation Location: [place] [address] Transcribed By: [facility] 02/18/24 1625 Dictated By: Mo Collier DO 02/18/24 1621 Signed By: 02/18/24 1625 Normal [facility] Calcium [Mass/volume] in Ser um or PlasmaOrdered By: Hosea Heart on 02-18-2024 Calcium [Mass/Vol] 9.6 mg/dL Normal 8.6-10.3 [facility] Comment on above: Result Comment: PERF ORMED BY: [facility] [address] [facility] [place] [address] PATHOLOGIST CUSTOMER SERVICE COORDINATOR TONEY KWON M.D. Performed By: #### T 3T, A1C WTH eA, CMP, LIPID, TSH3, BNP #### [facility] [address] [place] [address] [place] Carbon dioxide, total [Moles /volume] in Serum or PlasmaOrdered By: Hosea Heart on 02-18-2024 CO2 [Moles/Vol] 30.8 mmol/L Normal 21.0-31.0 [facility] Comment on above: Performed By: #### T 3T, A1C WTH eA, CMP, LIPID, TSH3, BNP #### [facility] [address] [place] [address] [place] Chloride [Moles/volume] in S ric or PlasmaOrdered By: Hosea Heart on 02-18-2024 Chloride [Moles/Vol] 103 mmol/L Normal 98-107 [facility] Comment on above: Performed By: #### T 3T, A1C WTH eA, CMP, LIPID, TSH3, BNP #### [facility] [address] [place] [address] [place] Creatinine [Mass/volume] in Serum or PlasmaOrdered By: Hosea Heart on 02-18-2024 Creatinine [Mass/Vol] 1.63 mg/dL High 0.70-1.30 [facility] Comment on above: Performed By: #### T 3T, A1C WTH eA, CMP, LIPID, TSH3, BNP #### [facility] [address] [place] [id number] [place] Glucose [Mass/volume] in Ser um or PlasmaOrdered By: Hosea Heart on 02-18-2024 Glucose [Mass/Vol] 165 mg/dL High 70-100 [facility] Comment on above: ADA recommended refe rence rangeRandom Glucose Reference Range is dependent on time and content of last meal. Glucose of more than 200 mg/dL in a nonstressed, ambulatory subject supports the diagnosis of Diabetes Mellitus. Result Comment: [place] om Glucose Reference Range is dependent on time and content of last meal. Glucose of more than 200 mg/dL in a nonstressed, ambulatory subject supports the diagnosis of Diabetes Mellitus. ADA recommended reference range Performed By: #### T 3T, A1C WTH eA, CMP, LIPID, TSH3, BNP #### [facility] [address] No Panel InformationOrdered By: Hosea Heart on 02-18-2024 Estimated GFR (CKD-EPI) 42.069 mL/Min [facility] Creatinine Clearance (Chem N/A [facility] Potassium [Moles/volume] in Serum or PlasmaOrdered By: Hosea Heart on 02-18-2024 Potassium [Moles/Vol] 4.5 mmol/L Normal 3.5-5.1 [facility] Comment on above: Performed By: #### T 3T, A1C WTH eA, CMP, LIPID, TSH3, BNP #### [facility] [address] Serum or plasma anion gap de terminationOrdered By: Hosea Heart on 02-18-2024 Anion gap [Moles/Vol] 10.7 mmol/L Normal 6.0-15.0 [facility] Comment on above: Performed By: #### T 3T, A1C WTH eA, CMP, LIPID, TSH3, BNP #### [facility] [address] Sodium [Moles/volume] in Ser um or PlasmaOrdered By: Hosea Heart on 02-18-2024 Sodium [Moles/Vol] 140 mmol/L Normal 136-145 [facility] Comment on above: Performed By: #### T 3T, A1C WTH eA, CMP, LIPID, TSH3, BNP #### [facility] [address] [place] [address] [place] Urea nitrogen [Mass/volume] in Serum or PlasmaOrdered By: Hosea Heart on 02-18-2024 Urea nitrogen [Mass/Vol] 26 mg/dL High 7-25 [facility] Comment on above: Performed By: #### T 3T, A1C WTH eA, CMP, LIPID, TSH3, BNP #### [facility] [address] A1C with Estimated Average G luon 12-03-2023 Glucose [Mass/Vol] 143 mg/dL Normal [facility] Comment on above: Result Comment: PERF ORMED BY: [place] [address] PATHOLOGIST CUSTOMER SERVICE COORDINATOR TONEY KWON M.D. Performed By: #### T 3T, A1C WTH eA, CMP, LIPID, TSH3, BNP #### [place] [address] [place] Alanine aminotransferase [En zymatic activity/volume] in Serum or PlasmaOrdered By: Rosemary Cartagena on 12-03-2023 ALT [Catalytic activity/Vol] 12 U/L Normal 7-52 [facility] Comment on above: Performed By: #### T 3T, A1C WTH eA, CMP, LIPID, TSH3, BNP #### [facility] [address] [place] [address] [place] Albumin [Mass/volume] in Ser um or Plasma by Bromocresol green (BCG) dye binding methoOrdered By: Rosemary Cartagena on 12-03-2023 Albumin BCG dye [Mass/Vol] 4.1 g/dL 3.5-5.7 [facility] Alkaline phosphatase [Enzyma tic activity/volume] in Serum or PlasmaOrdered By: Rosemary Cartagena on 12-03-2023 ALP [Catalytic activity/Vol] 89 U/L Normal 34-104 [facility] Comment on above: Performed By: #### T 3T, A1C WTH eA, CMP, LIPID, TSH3, BNP #### [facility] [address] [place] [address] Aspartate aminotransferase [ Enzymatic activity/volume] in Serum or PlasmaOrdered By: Rosemary Cartagena on 12-03-2023 AST [Catalytic activity/Vol] 23 U/L Normal 13-39 [facility] Comment on above: Performed By: #### T 3T, A1C WTH eA, CMP, LIPID, TSH3, BNP #### [facility] [address] [place] [address] BNP ser/plasOrdered By: Genet Cartagena on 12-03-2023 Natriuretic peptide B (Bld) [Mass/Vol] 316.0 pg/mL High 5-100 [facility] Comment on above: Result Comment: PERF ORMED BY: [place] [address] PATHOLOGIST CUSTOMER SERVICE COORDINATOR TONEY KWON M.D. Performed By: #### T 3T, A1C WTH eA, CMP, LIPID, TSH3, BNP #### [facility] [address] [place] [address] [place] Bilirubin.total [Mass/volume ] in Serum or PlasmaOrdered By: Rsoemary Cartagena on 12-03-2023 Bilirubin [Mass/Vol] 0.7 mg/dL Normal 0.3-1.0 [facility] Comment on above: Performed By: #### T 3T, A1C WTH eA, CMP, LIPID, TSH3, BNP #### [facility] [address] [place] [address] [place] Calcium [Mass/volume] in Ser um or PlasmaOrdered By: Rosemary Cartagena on 12-03-2023 Calcium [Mass/Vol] 9.6 mg/dL Normal 8.6-10.3 [facility] Comment on above: Performed By: #### T 3T, A1C WTH eA, CMP, LIPID, TSH3, BNP #### [facility] [address] [place] [address] [place] Carbon dioxide, total [Moles /volume] in Serum or PlasmaOrdered By: Rosemary Cartagena on 12-03-2023 CO2 [Moles/Vol] 34.3 mmol/L High 21.0-31.0 [facility] Comment on above: Performed By: #### T 3T, A1C WTH eA, CMP, LIPID, TSH3, BNP #### [facility] [address] [place] [id number] [place] Chloride [Moles/volume] in S ric or PlasmaOrdered By: Rosemary Cartagena on 12-03-2023 Chloride [Moles/Vol] 103 mmol/L Normal 98-107 [facility] Comment on above: Performed By: #### T 3T, A1C WTH eA, CMP, LIPID, TSH3, BNP #### [facility] [address] [place] [address] [place] Cholesterol [Mass/volume] in Serum or PlasmaOrdered By: Rosemary Cartagena on 12-03-2023 Cholesterol [Mass/Vol] 127 mg/dL Low 140-200 [facility] Comment on above: Chol less than 200 m g/dl low riskChol 201-239 mg/dl borderline riskChol 240 mg/dl and greater high risk Result Comment: Chol less than 200 mg/dl low risk Chol 201-239 mg/dl borderline risk Chol 240 mg/dl and greater high risk Performed By: #### T 3T, A1C WTH eA, CMP, LIPID, TSH3, BNP #### [facility] [address] [place] [address] [place] Cholesterol in LDL Calc [Mas s/Vol]Ordered By: Rosemary Cartagena on 12-03-2023 Cholesterol in LDL [Mass/Vol] 29 mg/dL 0-100 [facility] Comment on above: LDL ATP III CLASSIFI CATIONLDL less than 100 mg/dL OptimalLDL 100-129 mg/dL Near or above optimalLDL 130-159 mg/dL Borderline highLDL 160-189 mg/dL HighLDL greater than 189 mg/dL Very high Cholesterol in VLDL Calc [Ma ss/Vol]Ordered By: Rosemary Cartagena on 12-03-2023 Cholesterol in VLDL [Mass/Vol] 62 mg/dL [facility] Comprehensive Metabolic Pane yobani 12-03-2023 Albumin [Mass/Vol] 4.1 g/dL Normal 3.5-5.7 [facility] Comment on above: Performed By: #### T 3T, A1C WTH eA, CMP, LIPID, TSH3, BNP #### [facility] [address] [place] [address] [place] GFR/1.73 sq M.predicted MDRD (S/P/Bld) [Vol rate/Area] 58.211 mL/min/{1.73_m2} Normal [facility] Comment on above: Performed By: #### T 3T, A1C WTH eA, CMP, LIPID, TSH3, BNP #### [facility] [address] [place] [address] [place] Creatinine [Mass/volume] in Serum or PlasmaOrdered By: Rosemary Cartagena on 12-03-2023 Creatinine [Mass/Vol] 1.25 mg/dL Normal 0.70-1.30 [facility] Comment on above: Performed By: #### T 3T, A1C WTH eA, CMP, LIPID, TSH3, BNP #### [facility] [address] Glucose [Mass/volume] in Ser um or PlasmaOrdered By: Rosemary Cartagena on 12-03-2023 Glucose [Mass/Vol] 155 mg/dL High 70-100 [facility] Comment on above: ADA recommended refe rence rangeRandom Glucose Reference Range is dependent on time and content of last meal. Glucose of more than 200 mg/dL in a nonstressed, ambulatory subject supports the diagnosis of Diabetes Mellitus. Result Comment: [place] om Glucose Reference Range is dependent on time and content of last meal. Glucose of more than 200 mg/dL in a nonstressed, ambulatory subject supports the diagnosis of Diabetes Mellitus. ADA recommended reference range Performed By: #### T 3T, A1C WTH eA, CMP, LIPID, TSH3, BNP #### [facility] [address] Glucose mean value [Mass/vol ume] in Blood Estimated from glycated hemoglobinOrdered By: Rosemary Cartagena on 12-03-2023 Average glucose Estimated from glycated hemoglobin (Bld) [Mass/Vol] 143 mg/dL [facility] Hemoglobin A1c percentageOrd ered By: Rosemary Cartagena on 12-03-2023 HbA1c (Bld) [Mass fraction] 6.6 % High 4.3-5.6 [facility] Comment on above: Increased risk for d iabetes: 5.7 - 6.4diabetes: >6.4glycemic control for adults with diabetes: <7.0 Result Comment: Incr eased risk for diabetes: 5.7 - 6.4 diabetes: >6.4 glycemic control for adults with diabetes: <7.0 Performed By: #### T 3T, A1C WTH eA, CMP, LIPID, TSH3, BNP #### [facility] [address] [place] [id number] [facility] Lipid Panelon 12-03-2023 LDL Cholesterol,Calculated 29 mg/dL Normal 0-100 [facility] Comment on above: Result Comment: LDL ATP III CLASSIFICATION LDL less than 100 mg/dL Optimal LDL 100-129 mg/dL Near or above optimal LDL 130-159 mg/dL Borderline high LDL 160-189 mg/dL High LDL greater than 189 mg/dL Very high Performed By: #### T 3T, A1C WTH eA, CMP, LIPID, TSH3, BNP #### [facility] [address] [place] [id number] [place] Triglyceride w/Reflex 314 mg/dL High 0-149 [facility] Comment on above: Result Comment: TRIG ATP III CLASSIFICATION TRIG less than 150 mg/dL Normal TRIG 150-199 mg/dL Borderline high TRIG 200-500 mg/dL High TRIG greater than 500 mg/dL Very high Standard traceable to the Center for Disease Conrtrol and Prevention (CDC) test method. Performed By: #### T 3T, A1C WTH eA, CMP, LIPID, TSH3, BNP #### [facility] [address] [place] [address] [place] VLDL CHOLESTEROL 62 mg/dL Normal [facility] Comment on above: Performed By: #### T 3T, A1C WTH eA, CMP, LIPID, TSH3, BNP #### [facility] [address] No Panel InformationOrdered By: Rosemary Cartagena on 12-03-2023 Estimated GFR (CKD-EPI) 58.211 mL/Min [facility] Creatinine Clearance (Chem N/A [facility] Potassium [Moles/volume] in Serum or PlasmaOrdered By: Rosemary Cartagena on 12-03-2023 Potassium [Moles/Vol] 4.2 mmol/L Normal 3.5-5.1 [facility] Comment on above: Performed By: #### T 3T, A1C WTH eA, CMP, LIPID, TSH3, BNP #### [facility] [address] [place] [id number] [place] Protein [Mass/volume] in Ser um or PlasmaOrdered By: Rosemary Cartagena on 12-03-2023 Protein [Mass/Vol] 6.6 g/dL Normal 6.4-8.9 [facility] Comment on above: Performed By: #### T 3T, A1C WTH eA, CMP, LIPID, TSH3, BNP #### [facility] [address] Serum globulin measurement b y calculation (mass/volume)Ordered By: Rosemary Cartagena on 12-03-2023 Globulin (S) [Mass/Vol] 2.5 g/dL [facility] Comment on above: Performed By: #### T 3T, A1C WTH eA, CMP, LIPID, TSH3, BNP #### [facility] [address] Serum or plasma albumin/glob ulin mass ratioOrdered By: Rosemary Cartagena on 12-03-2023 Albumin/Globulin [Mass ratio] 1.6 {ratio} [facility] Comment on above: Performed By: #### T 3T, A1C WTH eA, CMP, LIPID, TSH3, BNP #### [address] Serum or plasma anion gap de terminationOrdered By: Rosemary Cartagena on 12-03-2023 Anion gap [Moles/Vol] 8.9 mmol/L Normal 6.0-15.0 [facility] Comment on above: Performed By: #### T 3T, A1C WTH eA, CMP, LIPID, TSH3, BNP #### [facility] [address] [place] [address] Serum or plasma high density lipoprotein (HDL) cholesterol measurementOrdered By: Rosemary Cartagena on 12-03-2023 Cholesterol in HDL [Mass/Vol] 35 mg/dL Normal 23-92 [facility] Comment on above: HDL CHOL ATP-III CLA SSIFICATION Cardiovascular RiskHDL > or equal to 60 mg/dL LOWHDL < 40 mg/dL HIGH Result Comment: HDL CHOL ATP-III CLASSIFICATION Cardiovascular Risk HDL > or equal to 60 mg/dL LOW HDL < 40 mg/dL HIGH Performed By: #### T 3T, A1C WTH eA, CMP, LIPID, TSH3, BNP #### [facility] [address] [place] [address] Serum or plasma total choles terol/high density lipoprotein (HDL) cholesterol mass ratOrdered By: Rosemary Cartagena on 12-03-2023 Cholesterol.total/Chol esterol in HDL [Mass ratio] 3.6 {ratio} Normal <5.0 [facility] Comment on above: Performed By: #### T 3T, A1C WTH eA, CMP, LIPID, TSH3, BNP #### [address] Sodium [Moles/volume] in Ser um or PlasmaOrdered By: Rosemary Cartagena on 12-03-2023 Sodium [Moles/Vol] 142 mmol/L Normal 136-145 [facility] Comment on above: Performed By: #### T 3T, A1C WTH eA, CMP, LIPID, TSH3, BNP #### [facility] [address] [place] [address] Thyrotropin [Units/volume] i n Serum or PlasmaOrdered By: Rosemary Cartagena on 12-03-2023 TSH Qn 3.73 m[IU]/L Normal 0.45-5.33 [facility] Comment on above: Result Comment: PERF ORMED BY: [place] [address] PATHOLOGIST CUSTOMER SERVICE COORDINATOR TONEY KWON M.D. Performed By: #### T 3T, A1C WTH eA, CMP, LIPID, TSH3, BNP #### [address] Triglyceride [Mass/volume] i n Serum or PlasmaOrdered By: Rosemary Cartagena on 12-03-2023 Triglyceride [Mass/Vol] 314 mg/dL 0-149 [facility] Comment on above: TRIG ATP III CLASSIF ICATIONTRIG less than 150 mg/dL NormalTRIG 150-199 mg/dL Borderline highTRIG 200-500 mg/dL High TRIG greater than 500 mg/dL Very highStandard traceable to the Center for Disease Conrtrol and Prevention (CDC) test method. Triiodothyronine (T3) Totalo n 12-03-2023 Triiodothyronine (T3) Total 0.93 ng/mL Normal 0.87-1.78 [facility] Comment on above: Performed By: #### T 3T, A1C WTH eA, CMP, LIPID, TSH3, BNP #### [facility] [address] Triiodothyronine (T3) [Mass/ volume] in Serum or PlasmaOrdered By: Rosemary Cartagena on 12-03-2023 T3 [Mass/Vol] 0.93 ng/mL 0.87-1.78 [facility] Urea nitrogen [Mass/volume] in Serum or PlasmaOrdered By: Rosemary Cartagena on 12-03-2023 Urea nitrogen [Mass/Vol] 28 mg/dL High 7 [facility] Comment on above: Performed By: #### T 3T, A1C [facility] eA, CMP, LIPID, TSH3, BNP #### [facility] [address] Alanine aminotransferase [En zymatic activity/volume] in Serum or PlasmaOrdered By: Rosemary Cartagena on 09-02-2023 ALT [Catalytic activity/Vol] 12 U/L 7-52 [facility] Albumin [Mass/volume] in Ser um or Plasma by Bromocresol green (BCG) dye binding methoOrdered By: Rosemary Cartagena on 09-02-2023 Albumin BCG dye [Mass/Vol] 4.0 g/dL 3.5-5.7 [facility] Alkaline phosphatase [Enzyma tic activity/volume] in Serum or PlasmaOrdered By: Rosemary Cartagena on 09-02-2023 ALP [Catalytic activity/Vol] 74 U/L 34-104 [facility] Aspartate aminotransferase [ Enzymatic activity/volume] in Serum or PlasmaOrdered By: Rosemary Cartagena on 09-02-2023 AST [Catalytic activity/Vol] 17 U/L 13-39 [facility] Bilirubin.total [Mass/volume ] in Serum or PlasmaOrdered By: Rosemary Cartagena on 09-02-2023 Bilirubin [Mass/Vol] 0.6 mg/dL 0.3-1.0 [facility] Calcium [Mass/volume] in Ser um or PlasmaOrdered By: Rosemary Cartagena on 09-02-2023 Calcium [Mass/Vol] 8.9 mg/dL 8.6-10.3 [facility] Carbon dioxide, total [Moles /volume] in Serum or PlasmaOrdered By: Rosemary Cartagena on 09-02-2023 CO2 [Moles/Vol] 30.5 mmol/L 21.0-31.0 [facility] Chloride [Moles/volume] in S ric or PlasmaOrdered By: Rosemary Cartagena on 09-02-2023 Chloride [Moles/Vol] 106 mmol/L 98-107 [facility] Cholesterol [Mass/volume] in Serum or PlasmaOrdered By: Rosemary Cartagena on 09-02-2023 Cholesterol [Mass/Vol] 139 mg/dL 140-200 [facility] Comment on above: Chol less than 200 m g/dl low riskChol 201-239 mg/dl borderline riskChol 240 mg/dl and greater high risk Cholesterol in LDL Calc [Mas s/Vol]Ordered By: Rosemary Cartagena on 09-02-2023 Cholesterol in LDL [Mass/Vol] 56 mg/dL 0-100 [facility] Comment on above: LDL ATP III CLASSIFI CATIONLDL less than 100 mg/dL OptimalLDL 100-129 mg/dL Near or above optimalLDL 130-159 mg/dL Borderline highLDL 160-189 mg/dL HighLDL greater than 189 mg/dL Very high Cholesterol in VLDL Calc [Ma ss/Vol]Ordered By: Rosemary Cartagena on 09-02-2023 Cholesterol in VLDL [Mass/Vol] 51 mg/dL [facility] Creatinine [Mass/volume] in Serum or PlasmaOrdered By: Rosemary Cartagena on 09-02-2023 Creatinine [Mass/Vol] 1.10 mg/dL 0.70-1.30 [facility] Globulin Calc (S) [Mass/Vol] Ordered By: Rosemary Cartagena on 09-02-2023 Globulin (S) [Mass/Vol] 2.4 g/dL [facility] Glucose [Mass/volume] in Ser um or PlasmaOrdered By: Rosemary Cartagena on 09-02-2023 Glucose [Mass/Vol] 126 mg/dL 70-100 [facility] Comment on above: ADA recommended refe [...] from glycated hemoglobin (Bld) [Mass/Vol] 148 mg/dL [facility] Hemoglobin A1c percentageOrd ered By: Rosemary Cartagena on 09-02-2023 HbA1c (Bld) [Mass fraction] 6.8 % 4.3-5.6 [facility] Comment on above: Increased risk for d iabetes: 5.7 - 6.4diabetes: >6.4glycemic control for adults with diabetes: <7.0 Natriuretic peptide B [Mass/ Vol]Ordered By: Rosemary Cartagena on 09-02-2023 Natriuretic peptide B (Bld) [Mass/Vol] 229.0 pg/mL 5-100 [facility] No Panel InformationOrdered By: Rosemary Cartagena on 09-02-2023 Estimated GFR (CKD-EPI) > 60.0 mL/Min [facility] Creatinine Clearance (Chem N/A [facility] Potassium [Moles/volume] in Serum or PlasmaOrdered By: Rosemary Cartagena on 09-02-2023 Potassium [Moles/Vol] 3.9 mmol/L 3.5-5.1 [facility] Protein [Mass/volume] in Ser um or PlasmaOrdered By: Rosemary Cartagena on 09-02-2023 Protein [Mass/Vol] 6.4 g/dL 6.4-8.9 [facility] Serum or plasma albumin/glob ulin mass ratioOrdered By: Rosemary Cartagena on 09-02-2023 Albumin/Globulin [Mass ratio] 1.7 {ratio} [facility] Serum or plasma anion gap de terminationOrdered By: Rosemary Cartagena on 09-02-2023 Anion gap [Moles/Vol] TNP [facility] Comment on above: Test not performed Serum [...] in HDL [Mass ratio] 4.5 {ratio} <5.0 [facility] Sodium [Moles/volume] in Ser um or PlasmaOrdered By: Rosemary Cartagena on 09-02-2023 Sodium [Moles/Vol] 141 mmol/L 136-145 [facility] TRANSTHORACIC ECHO (TTE) COM PLETEon 09-02-2023 TRANSTHORACIC ECHO (TTE) COMPLETE [address], [address] [address] TRANSTHORACIC ECHOCARDIOGRAM REPORT Patient Name: YOANA IBRAHIM Reading Physician: [id number] Syed Flores MD, [facility] Study Date: 09/02/2023 Ordering Provider: [id number] ROSEMARY CARTAGENA MRN/PID: [id number] Fellow: Nurse: Date of /Age: 4 1940 / 82 years Pin Game Machine Inspector: Sobeida Juarez RDCS T Gender: M Additional Staff: Height: 167.64 cm Admit Date: Weight: 87.09 kg Admission Status: BSA: 1.97 m2 Department Location: [facility] Blood Pressure: 112 /74 mmHg Study Type: TRANSTHORACIC ECHO (TTE) COMPLETE Diagnosis/ICD: Abnormal electrocardiogram [ECG] [EKG]-R94.31; Sleep apnea, unspecified-G47.30; Permanent AFib-I48.21; Shortness of breath-R06.02 Indication: Sick Sinus Syndrome, Pacemaker/AICD, CHF, Diabetes, HTN, Hyperlipidemia, CABG, Former Smoker, Ischemic Cardiomyopathy, TIA-2017, History of Left UE DVT, Prostate Cancer CPT Codes: Echo Complete w Full Doppler-[id number] Study Detail: The following Echo studies were [...] 0.6 m/s (0.6-0.9m/s) PV Max P.3 mmHg [id number] Syed Flores MD, FACC Electronically signed on 09/02/2023 at 5:11:22 PM Final [facility] Thyrotropin [Units/volume] i n Serum or PlasmaOrdered By: Rosemary Cartagena on 09-02-2023 TSH Qn 4.72 m[IU]/L 0.45-5.33 [facility] Triglyceride [Mass/volume] i n Serum or PlasmaOrdered By: Rosemary Cartagena on 09-02-2023 Triglyceride [Mass/Vol] 259 mg/dL 0-149 [facility] Comment on above: TRIG ATP III CLASSIF ICATIONTRIG less than 150 mg/dL NormalTRIG 150-199 mg/dL Borderline highTRIG 200-500 mg/dL High TRIG greater than 500 mg/dL Very highStandard traceable to the Center for Disease Conrtrol and Prevention (CDC) test method. Triiodothyronine (T3) [Mass/ volume] in Serum or PlasmaOrdered By: Rosemary Cartagena on 09-02-2023 T3 [Mass/Vol] 0.70 ng/mL 0.87-1.78 [facility] US Heart TransthoracicOrdere d By: Syed Flores on 09-02-2023 Aortic Valve Area by Continuity of Peak Velocity 2.14 [facility] Work Phone: Aortic Valve Area by Continuity of VTI 2.09 [facility] Work Phone: [phone] AV mn grad 3.0 [facility] Work Phone: [phone] AV pk grad 7.3 [facility] Work Phone: [phone] AV pk diamond 1.35 [facility] Work Phone: [phone] LV A4C EF 14.5 [facility] Work Phone: [phone] LVIDd 5.30 [facility] Work Phone: [phone] LVOT diam 2.10 [facility] Work Phone: [phone] RVSP 38.8 [facility] Work Phone: [phone] [facility] Work Phone: [phone] US Heart Transthoracicon [address] [address] [address] TRANSTHORACIC ECHOCARDIOGRAM REPORT Patient Name: YOANA PATRICE Reading Physician: [id number] Syed Flores MD, [facility] Study Date: 09/02/2023 Ordering Provider: [id number] ROSEMARY CARTAGENA MRN/PID: [id number] Fellow: Nurse: Date of /Age: 4 1940 / 82 years Pin Game Machine Inspector: Sobeida Juarez RDCS, RVT Gender: M Additional Staff: Height: 167.64 cm Admit Date: Weight: 87.09 kg Admission Status: BSA: 1.97 m2 Department Location: [facility] Blood Pressure: 112 /74 mmHg Study Type: TRANSTHORACIC ECHO (TTE) COMPLETE Diagnosis/ICD: Abnormal electrocardiogram [ECG] [EKG]-R94.31; Sleep apnea, unspecified-G47.30; Permanent AFib-I48.21; Shortness of breath-R06.02 Indication: Sick Sinus Syndrome, Pacemaker/AICD, CHF, Diabetes, HTN, Hyperlipidemia, CABG, Former Smoker, Ischemic Cardiomyopathy, TIA-2017, History of Left UE DVT, Prostate Cancer CPT Codes: Echo Complete w Full Doppler-38252 Study Detail: The following Echo studies were [...] included)... Syed Simeon M D - 09/02/2023 [facility] [address], [address], [place] [address] TRANSTHORACIC ECHOCARDIOGRAM REPORT Patient Name: YOANA IBRAHIM Reading Physician: [id number] Syed Flores MD, [facility] Study Date: 09/02/2023 Ordering Provider: [id number] ROSEMARY CARTAGENA MRN/PID: [id number] Fellow: Nurse: Date of /Age: 4 1940 / 82 years Pin Game Machine Inspector: Sobeida Juarez RDCS [place] Gender: M Additional Staff: Height: 167.64 cm Admit Date: Weight: 87.09 kg Admission Status: BSA: 1.97 m2 Department Location: [facility] Blood Pressure: 112 /74 mmHg Study Type: TRANSTHORACIC ECHO (TTE) COMPLETE Diagnosis/ICD: Abnormal electrocardiogram [ECG] [EKG]-R94.31; Sleep apnea, unspecified-G47.30; Permanent AFib-I48.21; Shortness of breath-R06.02 Indication: Sick Sinus Syndrome, Pacemaker/AICD, CHF, Diabetes, HTN, Hyperlipidemia, CABG, Former Smoker, Ischemic Cardiomyopathy, TIA-2017, History of Left UE DVT, Prostate Cancer CPT Codes: Echo Complete w Full Doppler-88074 Study Detail: The following Echo studies were [...] PV Max PG: (more content not included)... [facility] Work Phone: Urea nitrogen [Mass/volume] in Serum or PlasmaOrdered By: Rosemary Cartagena on 09-02-2023 Urea nitrogen [Mass/Vol] 21 mg/dL 04-06 [facility] ECG 12 Leadon 09-01-2023 Atrial fibrillation. Towards the second half of the EKG patient goes into ventricular paced rhythm. When not paced QRS duration [address]-T abnormality in the inferior leads when paced QRS duration 180 ms. QTc 400 ms [facility] Work Phone: OVA AND PARASITE EXAMINATION on 12-23-2021 Ova + Parasite Exam Final report Normal [facility] Comment on above: Result Comment: Thes e results were obtained using wet preparation(s) and trichrome stained smear. This test does not include testing for Cryptosporidium parvum, Cyclospora, or Microsporidia. Performed By: #### O VAPE #### [facility] [address] [place] [address] Dr. Mely Avery Result 1 Comment Normal [facility] Comment on above: Result Comment: No o va, cysts, or parasites seen. . One negative specimen does not rule out the possibility of a parasitic infection. Performed By: #### O VAPE #### [facility] [address] [place] [address] Dr. Mely Avery STOOL CULTUREon 12-20-2021 Campylobacter Culture Final report Normal [facility] Comment on above: Performed By: #### C XSTOOL #### [facility] [address] [place] [address] Dr. Mely Avery E coli Shiga Toxin EIA Negative Normal Negative [facility] Comment on above: Performed By: #### C XSTOOL #### [facility] [address] [place] [address] Dr. Mely Avery Result 1 Comment Normal [facility] Comment on above: Result Comment: No S almonella or Shigella recovered. Performed By: #### C XSTOOL #### [facility] [address] [place] [address] Dr. Mely Avery Result Comment: No C ampylobacter species isolated. Salmonella/Shigella Screen Final report Normal [facility] Comment on above: Performed By: #### C XSTOOL #### [facility] [address] [place] [address] Dr. Mely Avery C. DIFF PCRon 12-16-2021 C. DIFFICILE PCR Negative Normal NEGATIVE [facility] Comment on above: Performed By: #### C DIFPOC #### [facility] [address] [place] [address] Dr. Mely Avery XR lumbar spine 6V w bending on 07-25-2021 XR lumbar spine 6V w bending [facility] [employer] Other XR lumbar spine 6V w bending [facility] [employer] Other XR lumbar spine 6V w bending [address] [place] [address] [employer] Other XR lumbar spine 6[place] [address] [employer] Other XR lumbar spine 6V w bending XRay Report [employer] Other XR lumbar spine 6V w bending Signed [employer] Other XR lumbar spine 6V w bending Patient: Yoana Ibrahim MR#: [id number] [employer] Other XR lumbar spine 6V w bending 9840 [employer] Other XR lumbar spine 6V w bending : 1940 Acct:[id number] [employer] Other XR lumbar spine 6V w bending Age/Sex: 80 / M ADM Date: 07/25/21 [employer] Other XR lumbar spine 6V w bending Loc: [place] Room: Type: [facility] [employer] Other XR lumbar spine 6V w bending Attending Dr: Osvaldo Maciel MD [employer] Other XR lumbar spine 6V w bending Ordering Provider: Osvaldo Maciel MD [employer] Other XR lumbar spine 6V w bending Date of Service: 07/25/21 [employer] Other XR lumbar spine 6V w bending XR/XR lumbar spine 6V w bending: M48.062, M43.16 M51.36 [employer] Other XR lumbar spine 6V w bending Copies to: Osvaldo Maciel MD [employer] Other XR lumbar spine 6V w bending LUMBAR SPINE WITH FLEXION, EXTENSION AND BENDING VIEWS- 6 views: [employer] Other XR lumbar spine 6V w bending CLINICAL HISTORY: Pain at the mid back when bending or standing up straight. No injury. [employer] Other XR lumbar spine 6V w bending COMPARISON: CT myelogram 07/01/2021 [employer] Other XR lumbar spine 6V w bending AP neutral, right and left bending as well as lateral views in neutral, flexion and extension were [employer] Other XR lumbar spine 6V w bending obtained. There is osteopenia. 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 There is minimal ret [employer] Other XR lumbar spine 6V w bending rolisthesis of L1 on L2 and L2 on L3. There is approximately 5 mm of anterolisthesis of L4 on L5. [employer] Other XR lumbar spine 6V w bending Alignment does not change significantly with flexion or extension. No acute fractures are present. [employer] Other XR lumbar spine 6V w bending There is slight disc space narrowing, greatest at L2-3 and the lumbosacral junction. There is [employer] Other XR lumbar spine 6V w bending endplate spurring, greater proximally and facet hypertrophy, greater distally. The SI joints show [employer] Other XR lumbar spine 6V w bending mild sclerosis. There is a bladder stimulator traversing a sacral foramen on the right. There is [employer] Other XR lumbar spine 6V w bending atherosclerotic plaque at the aorta and iliac arteries. [employer] Other XR lumbar spine 6V w bending XR/XR lumbar spine 6V w bending [employer] Other XR lumbar spine 6V w bending IMPRESSION: [employer] Other XR lumbar spine 6V w bending OSTEOPENIA, SCOLIOSIS AND DEGENERATIVE CHANGES, DESCRIBED [employer] Other XR lumbar spine 6V w bending Impression dictated by: Basilia Guevara M.D.07/25/2021 4:06 PM [employer] Other XR lumbar spine 6V w bending Dictation Location: [place] [address] [employer] Other XR lumbar spine 6V w bending Transcribed By: PWS 07/25/21 [facility]6 [employer] Other XR lumbar spine 6V w bending Dictated By: Basilia Guevara MD 07/25/21 [facility] [employer] Other XR lumbar spine 6V w bending Signed By: [employer] Other XR lumbar spine 6V w bending 07/25/21 [facility] [employer] Other Basic Metabolic Panelon 10-0 Anion gap [Moles/Vol] 11 mmol/L 9 - 17 mmol/L [place] Bun/Cre Ratio NOT REPORTED [place] Calcium [Mass/Vol] 8.3 mg/dL Low 8.6 - 10. 4 mg/dL [place] Chloride [Moles/Vol] 104 mmol/L 98 - 10 7 mmol/L [place] CO2 [Moles/Vol] 26 mmol/L 20 - 31 mmol/L [place] Creatinine [Mass/Vol] 1.12 mg/dL 0.7 - 1.2 mg/dL [place] GFR >60 >60 mL/min [place] GFR Non- >60 >60 mL/min [place] GFR/1.73 sq M predicted among non-blacks MDRD (S/P/Bld) [Vol rate/Area] [place] Comment on above: Average GFR for 70 o r more years old: 75 mL/min/1.73sq m Chronic Kidney Disease: <60 mL/min/1.73sq m Kidney failure: <15 mL/min/1.73sq m eGFR calculated using average adult body mass. Additional eGFR calculator available at: http://www.[employer]Auth/multiple_crcl_2012.htm GFR/1.73 sq M predicted among non-blacks MDRD (S/P/Bld) [Vol rate/Area] NOT REPORTED [place] Glucose [Mass/Vol] 111 mg/dL High 70 - 99 mg/dL [place] Interpretation and review of laboratory results Abnormal [place] Potassium [Moles/Vol] 4.0 mmol/L 3.7 - 5.3 mmol/L [place] Sodium [Moles/Vol] 141 mmol/L 135 - 144 mmol/L [place] Urea nitrogen [Mass/Vol] 26 mg/dL High 8 - 23 mg/dL [place] Basic Metabolic Profon 06-13 (cont.) Normal [facility] Comment on above: Result Comment: Aver age GFR for 70 or more years old: 75 mL/min/1.73sq m Chronic Kidney Disease: <60 mL/min/1.73sq m Kidney failure: <15 mL/min/1.73sq m eGFR calculated using average adult body mass. Additional eGFR calculator available at: http://www.SecureAuth/multiple_crcl_2012.htm Performed By: #### C BC, BMP, MG, GLYHGB #### [facility] [address] [place] [address] [phone] Passenger Rate Clerk: Bradley Richey MD Anion gap [Moles/Vol] 11 mmol/L Normal 9-17 [facility] Comment on above: Performed By: #### C BC, BMP, MG, GLYHGB #### [employer] [address] [place] [address] [phone] Passenger Rate Clerk: Bradley Richey MD Calcium [Mass/Vol] 8.3 mg/dL Low 8.6-10.4 [facility] Comment on above: Performed By: #### C BC, BMP, MG, GLYHGB #### [employer] [address] [place] [phone] Passenger Rate Clerk: Bradley Richey MD Chloride [Moles/Vol] 104 mmol/L Normal 98-107 [facility] Comment on above: Performed By: #### C BC, BMP, MG, GLYHGB #### [facility] [address] [place] [address] Passenger Rate Clerk: Bradley Richey MD CO2 [Moles/Vol] 26 mmol/L Normal 20-31 [facility] Comment on above: Performed By: #### C BC, BMP, MG, GLYHGB #### [facility] [address] [place] [phone] Passenger Rate Clerk: Bradley Richey MD Creatinine [Mass/Vol] 1.12 mg/dL Normal 0.70-1.20 [facility] Comment on above: Performed By: #### C BC, BMP, MG, GLYHGB #### [facility] [address] [place] [phone] Passenger Rate Clerk: Bradley Richey MD GFR, Amer >60 Normal >60 [facility] Comment on above: Performed By: #### C BC, BMP, MG, GLYHGB #### [facility] [address] [place] [phone] Passenger Rate Clerk: Bradley Richey MD GFR,non Amer >60 Normal >60 [facility] Comment on above: Performed By: #### C BC, BMP, MG, GLYHGB #### [facility] [place] [address] Passenger Rate Clerk: Bradley Richey MD Glucose [Mass/Vol] 111 mg/dL High 70-99 [facility] Comment on above: Performed By: #### C BC, BMP, MG, GLYHGB #### [facility] [address] [place] [phone] Passenger Rate Clerk: Bradley Richey MD Potassium [Moles/Vol] 4.0 mmol/L Normal 3.7-5.3 [facility] Comment on above: Performed By: #### C BC, BMP, MG, GLYHGB #### [facility] [address] [place] [phone] Passenger Rate Clerk: Bradley Richey MD Sodium [Moles/Vol] 141 mmol/L Normal 135-144 [facility] Comment on above: Performed By: #### C BC, BMP, MG, GLYHGB #### [facility] [address] [place] [phone] Passenger Rate Clerk: Bradley Richey MD Urea nitrogen [Mass/Vol] 26 mg/dL High - [facility] Comment on above: Performed By: #### C BC, BMP, MG, GLYHGB #### [facility] [employer] [address] [place] [phone] Passenger Rate Clerk: Bradley Richey MD BUN/CRE Ratio NOT REPORTED Normal 06-02 [facility] Comment on above: Performed By: #### C BC, BMP, MG, GLYHGB #### [facility] [employer] [address] [place] [phone] Passenger Rate Clerk: Bradley Richey MD Staging: NOT REPORTED Normal [facility] Comment on above: Performed By: #### C BC, BMP, MG, GLYHGB #### [facility] [address] [place] [phone] Passenger Rate Clerk: Bradley Richey MD CBCon 06-13-2019 Erythrocyte distribution width (RBC) [Ratio] 13.0 % Normal 11.8-14.4 [facility] Comment on above: Performed By: #### C BC, BMP, MG, GLYHGB #### [facility] [address] [place] [phone] Passenger Rate Clerk: Bradley Richey MD Hematocrit (Bld) [Volume fraction] 36.6 % Low 40.7-50.3 [facility] Comment on above: Performed By: #### C BC, BMP, MG, GLYHGB #### [address] [address] Passenger Rate Clerk: Bradley Richey MD Hemoglobin (Bld) [Mass/Vol] 11.8 g/dL Low 13.0-17.0 [facility] Comment on above: Performed By: #### C BC, BMP, MG, GLYHGB #### [address] [address] Passenger Rate Clerk: Bradley Richey MD MCH (RBC) [Entitic mass] 33.1 pg Normal 25.2-33.5 [facility] Comment on above: Performed By: #### C BC, BMP, MG, GLYHGB #### [address] [address] Passenger Rate Clerk: Bradley Richey MD MCHC (RBC) [Mass/Vol] 32.2 g/dL Normal 28.4-34.8 [facility] Comment on above: Performed By: #### C BC, BMP, MG, GLYHGB #### [address] [address] Passenger Rate Clerk: Bradley Richey MD MCV (RBC) [Entitic vol] 102.5 fL Normal 82.6-102.9 [facility] Comment on above: Performed By: #### C BC, BMP, MG, GLYHGB #### [address] [address] Passenger Rate Clerk: Bradley Richey MD NRBC Automated 0.0 per 100 WBC Normal 0.0 [facility] Comment on above: Performed By: #### C BC, BMP, MG, GLYHGB #### [address] [address] Passenger Rate Clerk: Bradley Richey MD Platelet mean volume (Bld) [Entitic vol] 9.8 fL Normal 8.1-13.5 [facility] Comment on above: Performed By: #### C BC, BMP, MG, GLYHGB #### [facility] [place] [address] Passenger Rate Clerk: Bradley Richey MD Platelets (Bld) [#/Vol] 174 10*3/uL Normal 138-453 [facility] Comment on above: Performed By: #### C BC, BMP, MG, GLYHGB #### [facility] [place] [address] Passenger Rate Clerk: Bradley Richey MD RBC (Bld) [#/Vol] 3.57 10*6/uL Low 4.21-5.77 [facility] Comment on above: Performed By: #### C BC, BMP, MG, GLYHGB #### [facility] [address] [place] [phone] Passenger Rate Clerk: Bradley Richey MD WBC (Bld) [#/Vol] 8.7 10*3/uL Normal 3.5-11.3 [facility] Comment on above: Performed By: #### C BC, BMP, MG, GLYHGB #### [facility] [place] [address] Passenger Rate Clerk: Bradley Richey MD Erythrocyte distribution width (RBC) [Ratio] 13.0 % 11.8 - 14.4 % [place] Hematocrit (Bld) [Volume fraction] 36.6 % Low 40.7 - 50.3 % [place] Hemoglobin (Bld) [Mass/Vol] 11.8 g/dL Low 13 - 17 g/dL [place] Interpretation and review of laboratory results Abnormal [place] MCH (RBC) [Entitic mass] 33.1 pg 25.2 - 33.5 pg [place] MCHC (RBC) [Mass/Vol] 32.2 g/dL 28.4 - 34.8 g/dL [place] MCV (RBC) [Entitic vol] 102.5 fL 82.6 - 102.9 fL [place] Platelet mean volume (Bld) [Entitic vol] 9.8 fL 8.1 - 13.5 fL [place] Platelets (Bld) [#/Vol] 174 10*3/uL [place] RBC (Bld) [#/Vol] 3.57 10*6/uL Low 4.21 - 5.77 m/uL [place] WBC (Bld) [#/Vol] 0.0 10*3/uL 0.0 per 100 WBC [place] WBC (Bld) [#/Vol] 8.7 10*3/uL [place] HEMOGLOBIN A1Con 06-13-2019 Glucose [Mass/Vol] 143 mg/dL [place] Comment on above: The ADA and AACC rec ommend providing the estimated average glucose result to permit better patient understanding of their HBA1c result. HbA1c (Bld) [Mass fraction] 6.6 % High 4 - 6 % [place] Interpretation and review of laboratory results Abnormal [place] Hemoglobin A1Con 06-13-2019 HbA1c (Bld) [Mass fraction] 6.6 % High 4.0-6.0 [facility] Comment on above: Performed By: #### C BC, BMP, MG, GLYHGB #### [employer] [address] [place] [phone] Passenger Rate Clerk: Bradley Richey MD HbA1c (Bld) [Mass fraction] 143 mg/dL Normal [facility] Comment on above: Result Comment: The ADA and AACC recommend providing the estimated average glucose result to permit better patient understanding of their HBA1c result. Performed By: #### C BC, BMP, MG, GLYHGB #### [employer] [address] [place], [place] [phone] Passenger Rate Clerk: Bradley Richey MD Magnesiumon 06-13-2019 Magnesium [Mass/Vol] 1.9 mg/dL Normal 1.6-2.6 [facility] Comment on above: Performed By: #### C BC, BMP, MG, GLYHGB #### [facility] [address] [place] [address] Passenger Rate Clerk: Bradley Richey MD Magnesium [Mass/Vol] 1.9 mg/dL 1.6 - 2 .6 mg/dL [place] POC Glucose Fingerstickon Glucose [Mass/Vol] 209 mg/dL High 75 - 110 mg/dL [place] Interpretation and review of laboratory results Abnormal [place] Glucose [Mass/Vol] 165 mg/dL High 75 - 110 mg/dL [place] Interpretation and review of laboratory results Abnormal [place] XR CHEST (2 VW)on 06-13-2019 XR CHEST (2 VW) EXAMINATION: TWO X-RAY VIEWS OF THE CHEST, 06/13/2019 10:36 am COMPARISON: June 12, 2019 HISTORY: ORDERING SYSTEM PROVIDED HISTORY: s/p aicd TECHNOLOGIST PROVIDED HISTORY: s/p aicd Reason for Exam: Patient denies chest complaints; states had pacemaker and defibrillator put in yesterday. Acuity: Unknown Type of Exam: Unknown FINDINGS: Left AICD with overlying skin kkoi. No definite pneumothorax. No focal consolidation. Minimal pleural effusions. Cardiomegaly. Sternotomy. No pulmonary edema. IMPRESSION: Minimal pleural effusions. Interpreted by: Abdon Dolan MD Signed by: Abdon Dolan MD 06/13/19 Final result Normal [facility] XR CHEST PORTABLEon 06-13-20 XR CHEST [...] Rosalba Brush DO 06/12/19 Final result Normal [facility] CHLORIDE (POC)on 06-12-2019 Chloride [Moles/Vol] 107 mmol/L 98 - 10 7 mmol/L [place] Creatinine W/GFR Point of Ca reon 06-12-2019 Creatinine [Mass/Vol] 1.02 mg/dL 0.51 - 1.19 mg/dL [place] GFR Non- >60 >60 mL/min [place] GFR/1.73 sq M predicted among non-blacks MDRD (S/P/Bld) [Vol rate/Area] mL/min/{1.73_m2} >60 mL/min [place] GFR/1.73 sq M predicted among non-blacks MDRD (S/P/Bld) [Vol rate/Area] [place] Comment on above: Average GFR for 70 o r more years old: 75 mL/min/1.73sq m Chronic Kidney Disease: <60 mL/min/1.73sq m Kidney failure: <15 mL/min/1.73sq m eGFR calculated using average adult body mass. Additional eGFR calculator available at: http://www.[employer]/multiple_crcl_2012.htm Hemoglobin and hematocrit, b loodon 06-12-2019 Hematocrit (Bld) [Volume fraction] 34 % Low 41 - 53 % [place] Hemoglobin (Bld) [Mass/Vol] 11.5 g/dL Low 13.5 - 17.5 g/dL [place] Otheron 06-12-2019 Interpretation and review of laboratory results Abnormal [place] POC Glucose Fingerstickon Glucose [Mass/Vol] 115 mg/dL High 75 - 110 mg/dL [place] Interpretation and review of laboratory results Abnormal [place] Glucose [Mass/Vol] 112 mg/dL High 75 - 110 mg/dL [place] Interpretation and review of laboratory results Abnormal [place] POCT Glucoseon 06-12-2019 Glucose [Mass/Vol] 120 mg/dL High 74 - 100 mg/dL [place] POTASSIUM (POC)on 06-12-2019 Potassium [Moles/Vol] 4.4 mmol/L 3.5 - 4.5 mmol/L [place] SODIUM (POC)on 06-12-2019 Sodium [Moles/Vol] 144 mmol/L 138 - 146 mmol/L [place] XR CHEST PORTABLEon 06-12-20 Left chest pacemaker device in place. No evidence of pneumothorax. [place] EXAMINATION: ONE XRA Y VIEW OF [...] effusion. No free air beneath the diaphragm. [place] Prieto, Mhpn Incoming Radiant Results From [employer] - 06/12/2019 10:21 PM EDT EXAMINATION: ONE [...] device in place. No evidence of pneumothorax. [place] XR KNEE RIGHT (3 VIEWS)on XR [...] by:DEEDEE Ariasigned by:Abdon Dolan MD01/17/18inal result Normal [facility] Vital Signs Date Time Vital Sign Value Performing Clinician Facility 09-01-2024 14:21-0500 Body height 165.1 cm Rosemary Cartagena MD Work Phone: [facility] 09-01-2024 14:21-0500 Body mass index (BMI) [Ratio] 30.29 kg/m2 Rosemary Cartagena MD Work Phone: [facility] 09-01-2024 14:21-0500 Body weight 82.56 kg Rosemary Cartagena MD Work Phone: [facility] 09-01-2024 14:21-0500 Diastolic blood pressure 60 mm[Hg] Rosemary Cartagena MD Work Phone: [facility] 09-01-2024 14:21-0500 Heart rate 60 /min Rosemary Cartagena MD Work Phone: [facility] 09-01-2024 14:21-0500 Systolic blood pressure 120 mm[Hg] Rosemary Cartagena MD Work Phone: [facility] 08-24-2024 14:50-0500 Body height 165.1 cm Viky Lowe PA Work Phone: [facility] 08-24-2024 14:50-0500 Diastolic blood pressure 108 mm[Hg] Viky Lowe PA Work Phone: [facility] 08-24-2024 14:50-0500 Heart rate 61 /min Viky Lowe PA Work Phone: [facility] 08-24-2024 14:50-0500 Systolic blood pressure 132 mm[Hg] Viky Lowe PA Work Phone: [facility] 07-27-2024 15:08-0500 Diastolic blood pressure 58 mm[Hg] Rosemary Cartagena MD Work Phone: [facility] 07-27-2024 15:08-0500 Systolic blood pressure 112 mm[Hg] Rosemary Cartagena MD Work Phone: [facility] 07-27-2024 14:30-0500 Body height 167.6 cm Rosemary Cartagena MD Work Phone: [facility] 07-27-2024 14:30-0500 Body mass index (BMI) [Ratio] 28.73 kg/m2 Rosemary Cartagena MD Work Phone: [facility] 07-27-2024 14:30-0500 Body weight 80.74 kg Rosemary Cartagena MD Work Phone: [facility] 07-27-2024 14:30-0500 Heart rate 62 /min Rosemary Cartagena MD Work Phone: [facility] 07-13-2024 14:18-0400 Body height 167.6 cm Viky Lowe PA Work Phone: [facility] 07-13-2024 14:18-0400 Body mass index (BMI) [Ratio] 28.57 kg/m2 Viky Lowe PA Work Phone: [facility] 07-13-2024 14:18-0400 Body weight 80.29 kg Viky Lowe PA Work Phone: [facility] 07-13-2024 14:18-0400 Diastolic blood pressure 60 mm[Hg] Viky Lowe PA Work Phone: [facility] 07-13-2024 14:18-0400 Systolic blood pressure 132 mm[Hg] Viky Lowe PA Work Phone: [facility] 06-13-2024 14:08-0400 Body height 167.6 cm Viky Lowe PA Work Phone: [facility] 06-13-2024 14:08-0400 Body mass index (BMI) [Ratio] 29.38 kg/m2 Viky Lowe PA Work Phone: [facility] 06-13-2024 14:08-0400 Body weight 82.56 kg Viky Rastae PA Work Phone: [facility] 06-13-2024 14:08-0400 Diastolic blood pressure 78 mm[Hg] Viky Lowe PA Work Phone: [facility] 06-13-2024 14:08-0400 Systolic blood pressure 142 mm[Hg] Viky Lowe PA Work Phone: [facility] 04-25-2024 13:55-0400 Blood Pressure Location Anabel Orzech [facility] 04-25-2024 13:55-0400 Diastolic blood pressure 56 mm[Hg] Anabel [facility]zech [facility] [facility] 04-25-2024 13:55-0400 Heart rate 63 /min Anabel Orzech [facility] 04-25-2024 13:55-0400 Respiratory rate 18 /min Anabel Orzech [facility] 04-25-2024 13:55-0400 Systolic blood pressure 110 mm[Hg] Anabel Orzech [facility] 04-24-2024 13:45-0400 Body height 167.6 cm Rosemary Cartagena MD Work Phone: [facility] 04-24-2024 13:45-0400 Body mass index (BMI) [Ratio] 29.96 kg/m2 Rosemary Cartagena MD Work Phone: [facility] 04-24-2024 13:45-0400 Body weight 84.19 kg Rosemary Cartagena MD Work Phone: [facility] 04-24-2024 13:45-0400 Diastolic blood pressure 62 mm[Hg] Rosemary Cartagena MD Work Phone: [facility] 04-24-2024 13:45-0400 Heart rate 62 /min Rosemary Cartagena MD Work Phone: [facility] 04-24-2024 13:45-0400 Systolic blood pressure 104 mm[Hg] Rosemary Cartagena MD Work Phone: [facility] 04-03-2024 11:19-0400 Body height 167.64 cm DO Shanique Leeton Work Phone: [facility] 04-03-2024 11:19-0400 Body mass index (BMI) [Ratio] 29.3 kg/m2 DO Shanique Leeton Work Phone: [facility] 04-03-2024 11:19-0400 Body weight 82.55 kg DO Shanique Leeton Work Phone: [facility] 04-03-2024 11:19-0400 Diastolic blood pressure 42 mm[Hg] DO Shanique Leeton Work Phone: [facility] 04-03-2024 11:19-0400 Heart rate 66 /min DO Shanique Leeton Work Phone: [facility] 04-03-2024 11:19-0400 Systolic blood pressure 93 mm[Hg] DO Shanique Leeton Work Phone: [facility] 12-22-2023 14:28-0400 Body height 167.6 cm Hosea Heart 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 Work Phone: [facility] 12-22-2023 14:28-0400 Body mass index (BMI) [Ratio] 31.47 kg/m2 Hosea Heart 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 Work Phone: [facility] 12-22-2023 14:28-0400 Body weight 88.45 kg Hosea Heart 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 Work Phone: [facility] 12-22-2023 14:28-0400 Diastolic blood pressure 50 mm[Hg] Hosea Heart 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 Work Phone: [facility] 12-22-2023 14:28-0400 Heart rate 60 /min Hosea Heart 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 Work Phone: [facility] 12-22-2023 14:28-0400 Systolic blood pressure 120 mm[Hg] Hosea Heart 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 Work Phone: [facility] 12-06-2023 15:09-0400 Body height 167.6 cm H[facility] Heart 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 Work Phone: [facility] 12-06-2023 15:09-0400 Body mass index (BMI) [Ratio] 29.86 kg/m2 [facility] 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 Work Phone: [facility] 12-06-2023 15:09-0400 Body weight 83.92 kg Hosea Heart 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 Work Phone: [facility] 12-06-2023 15:09-0400 Diastolic blood pressure 64 mm[Hg] Hosea Heart 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 Work Phone: [facility] 12-06-2023 15:09-0400 Heart rate 60 /min Hosea Heart 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 Work Phone: [facility] 12-06-2023 15:09-0400 Systolic blood pressure 112 mm[Hg] Hosea Heart 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 Work Phone: [facility] 10-25-2023 15:04-0500 Body height 167.6 cm Rosemary Cartagena MD Work Phone: [facility] 10-25-2023 15:04-0500 Body mass index (BMI) [Ratio] 30.67 kg/m2 Rosemary Cartagena MD Work Phone: [facility] 10-25-2023 15:04-0500 Body weight 86.18 kg Rosemary Cartagena MD Work Phone: [facility] 10-25-2023 15:04-0500 Diastolic blood pressure 62 mm[Hg] Rosemary Cartagena MD Work Phone: [facility] 10-25-2023 15:04-0500 Heart rate 64 /min Rosemary Cartagena MD Work Phone: [facility] 10-25-2023 15:04-0500 Systolic blood pressure 118 mm[Hg] Rosemary Cartagena MD Work Phone: [facility] 09-02-2023 13:25-0500 Body height 167.[address] 09-02-2023 13:25-0500 Body mass index (BMI) [Ratio] 30.99 kg/m2 [address] 09-02-2023 13:25-0500 Body weight 87.[address] 09-02-2023 13:25-0500 Diastolic blood pressure 74 mm[Hg] [address] 09-02-2023 13:25-0500 Systolic blood pressure 112 mm[Hg] [address] 08-30-2023 11:14-0500 Diastolic blood pressure 80 mm[Hg] Rosemary Cartagena MD Work Phone: [facility] 08-30-2023 11:14-0500 Heart rate 67 /min Rosemary Cartagena MD Work Phone: [facility] 08-30-2023 11:14-0500 Systolic blood pressure 110 mm[Hg] Rosemary Cartagena MD Work Phone: [facility] 08-30-2023 11:13-0500 Body height 167.6 cm Rosemary Cartagena MD Work Phone: [facility] 08-30-2023 11:13-0500 Body mass index (BMI) [Ratio] 30.99 kg/m2 Rosemary Cartagena MD Work Phone: [facility] 08-30-2023 11:13-0500 Body weight 87.09 kg Rosemary Cartagena MD Work Phone: [facility] 04-01-2023 14:00-0400 Body height 167.64 cm Alexei Rehan Other [facility] Other 04-01-2023 14:00-0400 Body mass index (BMI) [Ratio] 28.73 kg/m2 Alexei Renettay Other [facility] Other 04-01-2023 14:00-0400 Body weight 80.74 kg Alexei Van Other [facility] Other 04-01-2023 14:00-0400 Diastolic blood pressure 74 mm[Hg] Alexei Renettay Other [facility] Other 04-01-2023 14:00-0400 Systolic blood pressure 140 mm[Hg] Alexei Renettay Other [facility] Other 03-11-2022 16:00-0400 Body height 167.64 cm Alexei Jacksony Other [facility] Other 03-11-2022 16:00-0400 Body mass index (BMI) [Ratio] 29.05 kg/m2 Alexei Renettay Other [facility] Other 03-11-2022 16:00-0400 Body weight 81.65 kg Alexei Rehan Other [facility] Other 09-02-2021 15:40-0500 Body height 167.64 cm Osvaldo Maciel Other [facility] Other 09-02-2021 15:40-0500 Body mass index (BMI) [Ratio] 32.6 kg/m2 Osvaldo Maciel Other [facility] Other 09-02-2021 15:40-0500 Body weight 91.63 kg Osvaldo Maciel Other [facility] Other 08-25-2021 15:30-0500 Body height 167.64 cm Abdon Jackman Other [facility] Other 08-25-2021 15:30-0500 Body mass index (BMI) [Ratio] 32.6 kg/m2 Abdon Jackman Other [facility] Other 08-25-2021 15:30-0500 Body temperature 98.1 [degF] Abdon Jackman Other [facility] Other 08-25-2021 15:30-0500 Body weight 91.63 kg Abdon Jackman Other [facility] Other 08-25-2021 15:30-0500 Diastolic blood pressure 68 mm[Hg] Abdon Jackman Other [facility] Other 08-25-2021 15:30-0500 SaO2% (BldA) [Mass fraction] 98 % Abdon Jackman Other [facility] Other 08-25-2021 15:30-0500 Systolic blood pressure 136 mm[Hg] Abdon Jackman Other [facility] Other 07-24-2021 14:20-0500 Body height 167.64 cm Osvaldo Maciel Other [facility] Other 07-24-2021 14:20-0500 Body mass index (BMI) [Ratio] 32.6 kg/m2 Osvaldo Maciel Other [facility] Other 07-24-2021 14:20-0500 Body weight 91.63 kg Osvaldo Maciel Other [facility] Other 07-24-2021 14:20-0500 Diastolic blood pressure 75 mm[Hg] Osvaldo Maciel Other [facility] Other 07-24-2021 14:20-0500 Systolic blood pressure 134 mm[Hg] Osvaldo Maciel Other [facility] Other 07-03-2021 17:15-0400 Body height 167.64 cm Ryder Pollack Other [facility] Other 07-03-2021 17:15-0400 Body mass index (BMI) [Ratio] 31.95 kg/m2 Ryder Pollack Other [facility] Other 07-03-2021 17:15-0400 Body weight 89.81 kg Ryder Pollack Other [facility] Other 07-03-2021 17:15-0400 Diastolic blood pressure 60 mm[Hg] Ryder Pollack Other [facility] Other 07-03-2021 17:15-0400 SaO2% (BldA) [Mass fraction] 98 % Ryder Pollack Other [facility] Other 07-03-2021 17:15-0400 Systolic blood pressure 140 mm[Hg] Ryder Pollack Other [facility] Other 06-30-2021 16:45-0400 Body height 167.64 cm Abdon Jackman Other [facility] Other 06-30-2021 16:45-0400 Body mass index (BMI) [Ratio] 31.95 kg/m2 Abdon Augustina Other [facility] Other 06-30-2021 16:45-0400 Body temperature 97.6 [degF] Abdon Augustina Other [facility] Other 06-30-2021 16:45-0400 Body weight 89.81 kg Abdon Augustina Other [facility] Other 06-30-2021 16:45-0400 Diastolic blood pressure 68 mm[Hg] Abdon Augustina Other [facility] Other 06-30-2021 16:45-0400 SaO2% (BldA) [Mass fraction] 96 % Abdon Augustina Other [facility] Other 06-30-2021 16:45-0400 Systolic blood pressure 130 mm[Hg] Abdon Augustina Other [facility] Other 06-16-2021 15:00-0400 Body weight 89.9 kg Ryder Pollack Other [facility] Other 06-16-2021 15:00-0400 Diastolic blood pressure 76 mm[Hg] Ryder Pollack Other [facility] Other 06-16-2021 15:00-0400 Respiratory rate 18 /min Ryder Pollack Other [facility] Other 06-16-2021 15:00-0400 SaO2% (BldA) [Mass fraction] 95 % Ryder Pollack Other [facility] Other 06-16-2021 15:00-0400 Systolic blood pressure 152 mm[Hg] Ryder Pollack Other [facility] Other 06-13-2019 11:52-0400 Body Temperature 98.4 [degF] [facility] [employer] 06-13-2019 11:52-0400 BP Diastolic 55 mm[Hg] [email or web address] [place] 06-13-2019 11:52-0400 BP Systolic 123 mm[Hg] [email or web address] [place] 06-13-2019 11:52-0400 Pulse (Heart Rate) 63 /min [email or web address] 06-13-2019 11:52-0400 Respiratory Rate 20 /min eer [facility] [email or web address], [place] 06-13-2019 07:15-0400 BMI (Body Mass Index) 33.06 kg/m2 [facility] [place] 06-13-2019 07:15-0400 Body weight 92.9 kg [email or web address] [place] 06-13-2019 07:15-0400 Height 167.6 cm [facility] [place] 06-12-2019 20:20-0400 Pulse Oximetry 93 % [facility] [place], [place] Encounters Encounter Date Encounter Type Care Provider Facility Start: 11-22-2024 ambulatory Petr PAINTING Facility :[facility] Start: 10-11-2024 Evaluation and management of inpatient [facility] Start: 10-03-2024 End: 10-03-2024 ambulatory Petr PAINTING Facility:JACK[facility] Hwang Start: 10-03-2024 End: 10-03-2024 Patient encounter procedure Petr PAINTING [facility] Start: 09-27-2024 End: 09-27-2024 Office outpatient new 45 minutes Fabiano Pickering MD Work Phone: [facility] Comment on above: Persistent atrial fi brillation (Multi) (Primary Dx); ICD (implantable cardioverter-defibrillator) in place; 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; Parkinson's disease, unspecified whether dyskinesia present, unspecified whether manifestations fluctuate; Falls frequently Start: 09-27-2024 End: 09-27-2024 ambulatory FABIANO PICKERING [facility] Start: 09-08-2024 End: 09-08-2024 ambulatory Shanique Anderson Facility:[facility] Start: 09-01-2024 End: 09-01-2024 ambulatory [facility] Amb[facility] Start: 09-01-2024 End: 09-01-2024 Clinisync Result Encounter Vkiy OLSEN Work Phone: [facility] Unsolicited Start: 09-01-2024 End: 09-01-2024 Clinisync Result Encounter Viky OLSEN Work Phone: [facility] Unsolicited Start: 09-01-2024 End: 09-01-2024 Office outpatient visit 25 minutes Rosemary Cartagena MD Work Phone: [facility] Comment on above: MCC current us e of anticoagulant therapy (Primary Dx); Congestive heart failure, NYHA class 3, chronic, systolic; Nonrheumatic mitral valve regurgitation; Obstructive sleep apnea syndrome; Falls frequently; Hx of coronary artery bypass graft; Body mass index (BMI) of 30.0-30.9 in adult; Permanent atrial fibrillation (Multi); Ischemic cardiomyopathy; 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; 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; Former smoker Start: 08-24-2024 End: 08-24-2024 Office outpatient visit 25 minutes Viky OLSEN Work Phone: [facility] Comment on above: Periodic limb moveme nt disorder (Primary Dx); Gait difficulty; Balance problem; Radiculopathy, lumbosacral region; Memory loss Start: 08-24-2024 End: 08-24-2024 ambulatory VIKY LOWE Not Available Start: 08-24-2024 End: 08-24-2024 Bamboo flowsheet Viky Lowe PA Work Phone: [facility] Start: 08-24-2024 End: 08-24-2024 Bamboo flowsheet Viky Lowe PA Work Phone: [facility] Start: 07-27-2024 End: 07-27-2024 ambulatory [facility] Start: 07-27-2024 End: 07-27-2024 Office outpatient visit 25 minutes Rosemary Cartagena MD Work Phone: [facility] Comment on above: Congestive heart chris lure, NYHA class 3, chronic, systolic; 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; Hx of coronary artery bypass graft; ICD (implantable cardioverter-defibrillator) in place; Ischemic cardiomyopathy; MCC 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; Former smoker; Body mass index (BMI) 28.0-28.9, adult; Permanent atrial fibrillation (Multi); Parkinson's disease, unspecified whether dyskinesia present, unspecified whether manifestations fluctuate; Falls frequently Start: 07-25-2024 End: 07-25-2024 ambulatory Anabel X Nickomike Facility:[facility] Start: 07-25-2024 End: 07-25-2024 Patient encounter procedure Anabel Albertaddison [facility] Start: 07-13-2024 End: 07-13-2024 Office outpatient visit 25 minutes Viky Rollins PA Work Phone: [facility] Comment on above: 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); Gait difficulty; Memory loss; Chronic post-traumatic headache, not intractable; Cerebrovascular accident (CVA), unspecified mechanism (CMS/HCC); Vertigo Start: 07-13-2024 End: 07-13-2024 ambulatory VIKY LOWE Not Available Start: 07-13-2024 End: 07-13-2024 Bamboo flowsheet Viky Lowe PA Work Phone: [facility] Start: 07-13-2024 End: 07-13-2024 Bamboo flowsheet Viky Lowe PA Work Phone: [facility] Start: 06-29-2024 End: 06-29-2024 Patient encounter procedure DO Shanique Anderson Work Phone: [facility] [address] Work Phone: Start: 06-29-2024 End: 06-29-2024 ambulatory DO Shanique Anderson Work Phone: [facility] Work Phone: Start: 06-15-2024 End: 06-15-2024 ambulatory ePtr PAINTING Facility:[facility] Start: 06-15-2024 End: 06-15-2024 Patient encounter procedure Petr Hilary PAINTING [facility] Start: 06-13-2024 End: 06-13-2024 ambulatory VIKY LOWE Not Available Start: 06-13-2024 End: 06-13-2024 Bamboo flowsheet Viky Lowe PA Work Phone: [facility] Start: 06-13-2024 End: 06-13-2024 Bamboo flowsheet Viky Lowe PA Work Phone: [facility] Start: 06-13-2024 End: 06-13-2024 Office outpatient visit 25 minutes Viky Lowe [facility] Comment on above: Hyperreflexia (Prima ry Dx); Gait difficulty; Vertigo; Anxiety; Memory loss; Balance problem; Chronic post-traumatic headache, not intractable Start: 06-07-2024 End: 06-07-2024 Patient encounter procedure DO Shanique Anderson Work Phone: [facility] Start: 06-07-2024 End: 06-07-2024 ambulatory DO Shanique Anderson Work Phone: [facility] Work Phone: Start: 06-07-2024 Non-patient / Non-visit DO Vibha Anderson Work Phone: [facility] Start: 05-10-2024 End: 05-10-2024 Patient encounter procedure DO Shanique Anderson Work Phone: [facility] [place] Work Phone: Start: 05-10-2024 End: 05-10-2024 ambulatory DO Shanique Anderson Work Phone: [facility] Work Phone: Start: 04-25-2024 End: 04-25-2024 ambulatory Anabel X Orzech Facility:[facility] Start: 04-25-2024 End: 04-25-2024 Patient encounter procedure Anabel X Orzech [facility] Start: 04-24-2024 End: 04-24-2024 Office outpatient visit 25 minutes Rosemary Cartagena MD Work Phone: [facility] Comment on above: Permanent atrial fib rillation (Multi); Ischemic cardiomyopathy; Congestive heart failure, NYHA class 3, chronic, systolic (Multi); ICD (implantable cardioverter-defibrillator) in place; 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; Hx of coronary artery bypass graft; 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; 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; Other specified diabetes mellitus with other specified complication, unspecified whether longitudinal float operator insulin use (Multi); Obstructive sleep apnea syndrome; History of stroke; Stage 3b chronic kidney disease (Multi); BMI 29.0-29.9,adult; Former smoker; Nonrheumatic mitral valve regurgitation; Nonrheumatic aortic valve insufficiency Start: 04-24-2024 End: 04-24-2024 ambulatory [facility] Amb[facility] Start: 04-03-2024 End: 04-03-2024 ambulatory DO Shanique Anderson Work Phone: [facility] Work Phone: Start: 04-03-2024 End: 04-03-2024 Patient encounter procedure DO Shanique Anderson Work Phone: [facility] Work Phone: Start: 03-06-2024 End: 03-06-2024 Patient encounter procedure DO Shanique Anderson Work Phone: [facility] Start: 03-06-2024 End: 03-06-2024 ambulatory DO Shanique Anderson Work Phone: [facility] Work Phone: Start: 03-01-2024 End: 03-01-2024 ambulatory ROBERT TANNER Facility:[facility] Start: 03-01-2024 End: 03-01-2024 Patient encounter procedure SADAF TANNER [facility] Start: 02-23-2024 End: 02-23-2024 ambulatory VIKY LOWE Not Available Start: 02-18-2024 End: 02-18-2024 Patient encounter procedure DO Shanique Anderson Work Phone: [facility] Scan [facility] [place] Work Phone: Start: 02-18-2024 End: 02-18-2024 ambulatory DO Shanique Anderson Work Phone: [facility] Work Phone: Start: 01-31-2024 End: 01-31-2024 ambulatory HOSEA Thorpe [facility] Ambulatory Start: 01-26-2024 ambulatory Petr PAINTING Facility:[facility] Start: 01-25-2024 End: 01-25-2024 ambulatory VIKY LOWE Not Available Start: 12-22-2023 End: 12-22-2023 ambulatory HOSEA [facility] Amb[facility] Start: 12-22-2023 End: 12-22-2023 Office outpatient visit 15 minutes Hosea [facility] 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 Work Phone: [facility] Comment on above: BMI 31.0-31.9,adult (Primary Dx); Ischemic cardiomyopathy Start: 12-06-2023 End: 12-06-2023 ambulatory [facility] Ambulatory Start: 12-06-2023 End: 12-06-2023 Office outpatient visit 15 minutes Hosea Thorpe [place] 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 Work Phone: [facility] Comment on above: BMI 29.0-29.9,adult (Primary Dx); Ischemic cardiomyopathy; 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 Start: 12-03-2023 End: 12-03-2023 Patient encounter procedure DO Shanique Anderson Work Phone: [facility] [place] Work Phone: Start: 12-03-2023 End: 12-03-2023 ambulatory DO Shanique Anderson Work Phone: [facility] Work Phone: Start: 12-03-2023 End: 12-03-2023 Patient encounter procedure DO Shanique Anderson Work Phone: [facility] Start: 12-03-2023 End: 12-03-2023 ambulatory DO Shanique Anderson Work Phone: [facility] Work Phone: Start: 10-25-2023 End: 10-25-2023 ambulatory [facility] Amb[facility] Start: 10-25-2023 End: 10-25-2023 Office outpatient visit 25 minutes Rosemary Cartagena MD Work Phone: [facility] Comment on above: Bipolar disorder, cu rrent episode manic severe with psychotic features (CMS/HCC) (Primary Dx); Permanent atrial fibrillation (CMS/HCC); Ischemic cardiomyopathy; ICD (implantable cardioverter-defibrillator) in place; Hx of coronary artery bypass graft; 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; History of stroke; Other specified diabetes mellitus with other specified complication, unspecified whether longitudinal float operator insulin use (CMS/HCC); 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; MCC 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; Obstructive sleep [...] 09-16-2023 End: 09-16-2023 ambulatory Alexei Van Other [facility] Other Start: 09-16-2023 Telephone encounter Alexei [facility] Start: 09-02-2023 End: 09-02-2023 Subsequent hospital visit by physician Farzana Hwang Echo/Vasc Room 2 [facility] Comment on above: Abnormal EKG; Sleep apnea, unspecified type; Permanent atrial fibrillation (CMS/HCC); Shortness of breath Start: 09-02-2023 End: 09-02-2023 ambulatory ROSEMARY [facility] Start: 09-02-2023 End: 09-02-2023 ambulatory DO Shanique Anderson Work Phone: [facility] Work Phone: Start: 09-02-2023 End: 09-02-2023 Patient encounter procedure DO Shanique Anderosn Work Phone: [facility]Pac[facility] Check Start: 08-30-2023 End: 08-30-2023 Office outpatient new 60 minutes Rosemary Cartagena MD Work Phone: [facility] Comment on above: Permanent atrial fib rillation (CMS/HCC) (Primary Dx); ICD (implantable cardioverter-defibrillator) in place; Sleep apnea, unspecified type; Abnormal EKG; Hx of coronary artery bypass graft; Coronary artery disease, unspecified vessel or lesion type, unspecified whether angina present, unspecified whether inupiat or transplanted heart; MCC 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; Shortness of breath; History of stroke; Benign prostatic hyperplasia with lower urinary tract symptoms, symptom details unspecified; Ischemic cardiomyopathy; Fatigue, unspecified type; Other specified diabetes mellitus with other specified complication, unspecified whether longitudinal float operator insulin use ([facility]) Start: 08-12-2023 End: 08-12-2023 ambulatory Alexei Van Other [facility] Other Start: 08-12-2023 Telephone encounter Alexei Tejeda [facility] Start: 04-01-2023 End: 04-01-2023 ambulatory Alexei Van Other [facility] Other Start: 04-01-2023 Patient encounter procedure Alexei Van [facility] Start: 11-30-2022 End: 11-30-2022 ambulatory DO Shanique Anderson Work Phone: [facility] Work Phone: Start: 11-30-2022 End: 11-30-2022 Patient encounter procedure DO Shanique Anderson Work Phone: [facility]Ul[facility] Cn[facility] for Breast Car Start: 08-27-2022 Telephone encounter Alexei Tejeda [facility] Start: 08-27-2022 End: 08-27-2022 ambulatory ALEXEI VAN Facility: Start: 08-25-2022 End: 08-25-2022 ambulatory Alexei Van Other [facility] Other Start: 08-25-2022 Telephone encounter Alexei STONE [facility] Start: 05-12-2022 End: 05-12-2022 ambulatory Ryder Pollack Other [facility] Other Start: 05-12-2022 Telephone encounter Ryder Pollack [facility] Start: 03-11-2022 End: 03-11-2022 ambulatory Alexei Van Other [facility] Other Start: 03-11-2022 Patient encounter procedure Alexei Van [facility] Start: 12-25-[address] SHANIQUE ANDERSON Facil ity:H1 Start: 12-16-2021 End: 12-16-2021 ambulatory ALEXEI VAN Facility:H1 Start: 12-15-2021 End: 12-15-2021 ambulatory Alexei Van Other [facility] Other Start: 12-15-2021 Telephone encounter Alexei [facility] Start: 11-26-2021 End: 11-27-[address] SHANIQUE ANDERSON Facility:H1 Start: 09-18-2021 End: 10-28-2021 ambulatory ALBIN BABIN Facility:H1 Start: 09-02-2021 End: 09-02-2021 ambulatory Osvaldo Maciel Other [facility] Other Start: 09-02-2021 Office outpatient vi sit 25 minutes Osvaldo Maciel [facility] Start: 08-25-2021 End: 08-25-2021 ambulatory Abdon Jackman Other [facility] Other Start: 08-25-2021 Office outpatient vi sit 25 minutes Abdon Jackman [facility] Start: 07-24-2021 End: 07-24-2021 ambulatory Osvaldo Maciel Other [facility] Other Start: 07-24-2021 Office outpatient ne w 45 minutes Osvaldo Maciel [facility] Start: 07-03-2021 Office outpatient vi sit 25 minutes Ryder Pollack [facility] Start: 07-01-2021 Telephone encounter Abdon burrell [facility] Start: 06-30-2021 Office outpatient vi sit 40 minutes Abdon Jackman [facility] Start: 06-25-2021 Telephone encounter Glenda Guillen [facility] Start: 06-24-2021 (Procedure) Short Ryder Pollack [facility] Start: 06-17-2021 Telephone encounter Ryder Pollack [facility] Start: 06-16-2021 Office outpatient vi sit 25 minutes Ryder Pollack [facility] Start: 06-16-2021 Telephone encounter Ryder Pollack [facility] Start: 06-12-2019 End: 06-13-2019 [facility] Start: 06-12-2019 End: 06-13-2019 Subsequent hospital visit by physician Raúl Akanksha Work Phone: [facility] 2 Comment on above: S/P ICD (internal ca rdiac defibrillator) procedure Start: 01-17-2018 End: 01-20-2018 Ambulatory [facility]IANO [facility] miriam Procedures Date Procedure Procedure Detail Performing Clinician Start: 09-01-2024 [employer] Viky OLSEN Work Phone: Start: 07-27-2024 Ecg routine ecg w/least 12 lds w/i&r Rosemary Cartagena MD Work Phone: Start: 06-29-2024 CT cervical spine without contrast DO Shanique Leeton Work Phone: Start: 06-29-2024 CT of head [...] PULSE OXIMETRY, CONTINUOUS RAÚL VALE Start: 06-12-2019 Radiologic exam chest [...] dimensional ex ternal beam radiation therapy Anabel Sailnas Total knee replacement Auror a Rita Transrectal needle b iopsy of prostate Anabel [employer] Plan of Treatment Date Care Activity Detail Author Start: 07-21-2031 DTaP/Tdap/Td Vaccines (2 - Tdap) DTaP/Tdap/Td Vaccines (2 - Tdap) [facility] Start: 07-21-2031 DTaP/Tdap/Td Vaccines (4 - Tdap) DTaP/Tdap/Td Vaccines (4 - Tdap) [facility] Start: 03-02-2025 End: 09-01-2025 Lipid 1996 panel - Serum or Plasma Lipid Panel Lab Routine 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 [address] [place] [address] Rosemary Cartagena MD [address] [facility] [address] [place] [address] [facility] Start: 11-30-2024 End: 11-30-2024 Patient encounter procedure 11/30/2024 12:00 PM EDT Office Visit [facility] [address] [place] [address] Viky Rollins PA [address] [place] [id number] [facility] [address] Start: 09-27-2024 End: 09-27-2024 Telemedicine consultation with patient 09/27/2024 8:30 AM EST Telemedicine [facility] [address] [place] [facility] [address] [place] [id number] [place] [address] [place] [address] [facility] Start: 09-02-2024 Echocardiography Echocardiogram [facility] Start: 09-01-2024 End: 09-01-2025 Comprehensive metabolic 2000 panel - Serum or Plasma Comprehensive Metabolic Panel Lab Routine 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 Expected: 09/01/2024 (Approximate), Expires: 09/01/2025 [facility] Work Phone: Comment on above: Expected: 09/01/2024 (Approximate), Expi res: 09/01/2025 Start: 08-24-2024 End: 08-24-2024 Patient encounter procedure 08/24/2024 3:00 PM EST [facility] [address] [facility] [address] [place] [address] Viky Rollins PA [address] [place] [address] [facility] [address] [facility] Comment on [...] 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 Expected: 07/27/2024 (Approximate), Expires: 07/27/2025 [facility] Service Area Work Phone: Comment on above: Expected: 07/27/2024 (Approximate), Expi res: 07/27/2025 Start: 07-27-2024 End: 07-27-2024 Patient encounter procedure 07/27/2024 2:00 PM EST Office Visit [facility] [address] [facility] [address] [place] [address] Rosemary Cartagena MD [address] [facility] [address] [place] [address] [facility] Start: 07-13-2024 End: 07-13-2024 Patient encounter procedure [facility] Comment on above: Arrived Start: 06-13-2024 End: 06-13-2025 CT Cervical spine WO contrast CT cervical spine wo IV contrast Imaging Routine Hyperreflexia Balance problem Expected: 06/13/2024 (Approximate), Expires: 06/13/2025 [facility] Comment on above: Expected: 06/13/2024 (Approximate), Expi res: 06/13/2025 Start: 06-13-2024 End: 06-13-2025 CT Head WO contrast CT head wo IV contrast Imaging Routine Gait difficulty Balance problem Expected: 06/13/2024 (Approximate), Expires: 06/13/2025 [facility] Work Phone: Comment on above: Expected: 06/13/2024 (Approximate), Expi res: 06/13/2025 Start: 05-14-2024 COVID-19 Vaccine ( season) COVID-19 Vaccine () [facility] Start: 05-14-2024 COVID-19 Vaccine () COVID-19 Vaccine () [facility] Start: 05-14-2024 COVID-19 Vaccine ( season) COVID-19 Vaccine ( season) [facility] Start: 05-14-2024 Influenza vaccination [facility] Start: 05-08-2024 End: 04-24-2025 Basic metabolic 2000 panel - Serum or Plasma Basic Metabolic Panel Lab Routine Congestive heart failure, NYHA class 3, chronic, systolic (Multi) Expected: 05/08/2024 (Approximate), Expires: 04/24/2025 [facility] Service Area Work Phone: Comment on above: Expected: 05/08/2024 (Approximate), Expi res: 04/24/2025 Start: 05-08-2024 End: 04-24-2025 Natriuretic peptide B [Mass/volume] in Blood B-Type Natriuretic Peptide Lab Routine Congestive heart failure, NYHA class 3, chronic, systolic (Multi) Expected: 05/08/2024 (Approximate), Expires: 04/24/2025 [facility] Work Phone: Comment on above: Expected: 05/08/2024 (Approximate), Expi res: 04/24/2025 Start: 02-28-2024 End: 02-28-2024 Patient encounter procedure 02/28/2024 1:45 PM EDT Office Visit [address] [place] [address] Rosemary Cartagena MD [address] [place] [address] [address] [place] [address] [facility] Start: 01-31-2024 End: 01-31-2024 Patient encounter procedure 01/31/2024 2:30 PM EDT Office Visit [address] [place] [address] [facility], 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 [address] [facility] [address], [address] [place] [address] [facility] Start: 01-03-2024 Glaucoma screening Diabetes: Retinopathy Screening [facility] Start: 12-29-2023 End: 12-29-2023 Patient encounter procedure 12/29/2023 1:30 PM EDT Office Visit [address] [place] [address] [facility], 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 [address], [address] [place] [address] [facility] Start: 12-22-2023 End: 12-21-2024 Basic metabolic 2000 panel - Serum or Plasma Basic Metabolic Panel Lab Routine Ischemic cardiomyopathy Expected: 12/22/2023 (Approximate), Expires: 12/21/2024 [facility] Service Area Work Phone: Comment on above: Expected: 12/22/2023 (Approximate), Expi res: 12/21/2024 Start: 12-03-2023 [facility] Start: 11-24-2023 End: 11-24-2023 Patient encounter procedure 11/24/2023 2:00 PM EDT Office Visit [address] [place] [address] [employer], 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 [address] [facility] [address], [address] [place] [address] [facility] Start: 11-08-2023 End: 10-25-2024 Basic metabolic 2000 panel - Serum or Plasma Basic Metabolic Panel Lab Routine Ischemic cardiomyopathy 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 Medication course changed Expected: 11/08/2023 (Approximate), Expires: 10/25/2024 [facility] Area Work Phone: Comment on above: Expected: 11/08/2023 (Approximate), Expi res: 10/25/2024 Start: 10-25-2023 End: 10-25-2023 Patient encounter procedure 10/25/2023 2:15 PM EST Office Visit [address] [place] [address] Rosemary Cartagena MD [address] [facility] [address] [place] [address] [facility] Start: 09-02-2023 End: 09-02-2023 Patient encounter procedure 09/02/2023 1:30 PM EST [facility]ment [facility] [address] [place] [address] Mariama [facility] Start: 08-30-2023 End: 08-30-2024 CBC panel - Blood by Automated count CBC Lab Routine [facility] 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 Expected: 08/30/2023 (Approximate), Expires: 08/30/2024 [facility] Work Phone: Comment on above: Expected: 08/30/2023 (Approximate), Expi res: 08/30/2024 Start: 08-30-2023 End: 08-30-2024 Comprehensive metabolic 2000 panel - Serum or Plasma Comprehensive Metabolic Panel Lab Routine Hx of coronary artery bypass graft Coronary artery disease, unspecified vessel or lesion type, unspecified whether angina present, unspecified whether inupiat or transplanted heart Sleep apnea, unspecified type Expected: 08/30/2023 (Approximate), Expires: 08/30/2024 [facility] Service Area Work Phone: Comment on above: Expected: 08/30/2023 (Approximate), Expi res: 08/30/2024 Start: 08-30-2023 End: 08-30-2024 Hemoglobin A1c/Hemoglobin.total in Blood Hemoglobin A1C Lab Routine Shortness of breath History of stroke Benign prostatic hyperplasia with lower urinary tract symptoms, symptom details unspecified Ischemic cardiomyopathy Other specified diabetes mellitus with other specified complication, unspecified whether alf insulin use ([facility]) Expected: 08/30/2023 (Approximate), Expires: 08/30/2024 [facility] Work Phone: Comment on above: Expected: 08/30/2023 (Approximate), Expi res: 08/30/2024 Start: 08-30-2023 End: 08-30-2024 Lipid 1996 panel - Serum or Plasma Lipid Panel Lab Routine 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 Coronary artery disease, unspecified vessel or lesion type, unspecified whether angina present, unspecified whether inupiat or transplanted heart Sleep apnea, unspecified type Permanent atrial fibrillation (CMS/HCC) 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 Shortness of breath History of stroke Benign prostatic hyperplasia with lower urinary tract symptoms, symptom details unspecified Ischemic cardiomyopathy Expected: 08/30/2023 (Approximate), Expires: 08/30/2024 [facility] Work Phone: Comment on above: Expected: 08/30/2023 (Approximate), Expi res: 08/30/2024 Start: 08-30-2023 End: 08-30-2024 Natriuretic peptide B [Mass/volume] in Blood B-Type Natriuretic Peptide Lab Routine Abnormal EKG Hx of coronary artery bypass graft Coronary artery disease, unspecified vessel or lesion type, unspecified whether angina present, unspecified whether inupiat or transplanted heart Permanent atrial fibrillation (CMS/HCC) Shortness of breath Ischemic cardiomyopathy Expected: 08/30/2023 (Approximate), Expires: 08/30/2024 [facility] Work Phone: Comment on above: Expected: 08/30/2023 (Approximate), Expi res: 08/30/2024 Start: 08-30-2023 End: 08-30-2024 Thyrotropin [Units/volume] in Serum or Plasma Thyroid Stimulating Hormone Lab Routine Shortness of breath History of stroke Benign prostatic hyperplasia with lower urinary tract symptoms, symptom details unspecified Ischemic cardiomyopathy Fatigue, unspecified type Expected: 08/30/2023 (Approximate), Expires: 08/30/2024 [facility] Work Phone: Comment on above: Expected: 08/30/2023 (Approximate), Expi res: 08/30/2024 Start: 08-30-2023 End: 08-30-2024 Triiodothyronine (T3) [Mass/volume] in Serum or Plasma Triiodothyronine, Total Lab Routine Shortness of breath History of stroke Benign prostatic hyperplasia with lower urinary tract symptoms, symptom details unspecified Ischemic cardiomyopathy Expected: 08/30/2023 (Approximate), Expires: 08/30/2024 [facility] Work Phone: Comment on above: Expected: 08/30/2023 (Approximate), Expi res: 08/30/2024 Start: 08-30-2023 End: 08-30-2025 US Heart Transthoracic Transthoracic Echo (TTE) Complete Echocardiography Routine Abnormal EKG Sleep apnea, unspecified type Permanent atrial fibrillation (CMS/HCC) Shortness of breath Expected: 08/30/2023 (Approximate), Expires: 08/30/2025 [facility] Work Phone: Comment on above: Expected: 08/30/2023 (Approximate), Expi res: 08/30/2025 Start: 07-25-2023 Screening for osteoporosis Bone Density Scan [facility] Start: 05-14-2023 COVID-19 Vaccine () COVID-19 Vaccine ( season) [facility] Start: 05-14-2023 COVID-19 Vaccine () COVID-19 Vaccine () [facility] Start: 05-14-2023 Influenza vaccination Influenza Vaccine (#1) [facility] Start: 01-02-2023 Glaucoma screening Diabetes: Retinopathy Screening [facility] Start: 07-25-2022 Screening for osteoporosis Bone Density Scan [facility] Start: 07-22-2021 DTaP/Tdap/Td Vaccines (1 - Tdap) DTaP/Tdap/Td Vaccines (1 - Tdap) [facility] Start: 06-12-2020 Creatinine monitoring Creatinine monitoring [place], [place] Start: 06-12-2020 Potassium monitoring Potassium monitoring [place], [place] Start: 05-14-2019 Influenza vaccination Flu vaccine (#1) [place] Start: 03-05-2019 Annual Wellness Visit (AWV) Annual Wellness Visit (AWV) [place], [place] Start: 2017 RSV High Risk: (Elderly (60+) or Population) (1 - 1-dose 75+ series) RSV High Risk: (Elderly (60+) or Population) (1 - 1-dose 75+ series) [facility] Start: 12-19-2007 Pneumococcal 65+ years Vaccine (1 of 2 - PCV13) Pneumococcal 65+ years Vaccine (1 of 2 - PCV13) [facility] [place] Start: 2002 RSV patients and/or patients aged 60+ years (1 - 1-dose 60+ series) RSV patients and/or patients aged 60+ years (1 - 1-dose 60+ series) [facility] Start: 1992 Shingles Vaccine (1 of 2) Shingles Vaccine (1 of 2) [place], [place] Start: 1992 Zoster Vaccines (1 of 2) Zoster Vaccines (1 of 2) [facility] Start: 1961 DTaP/Tdap/Td vaccine (1 - Tdap) DTaP/Tdap/Td vaccine (1 - Tdap) [place], [place] Start: 1961 Urine screening for protein Diabetes: Urine Protein Screening [facility] Start: 1952 Diabetic foot examination Diabetes: Foot Exam [facility] Start: 1948 Pneumococcal Vaccine: 65+ Years (1 - PCV) Pneumococcal Vaccine: 65+ Years (1 - PCV) [facility] Start: 1948 Pneumococcal Vaccine: 65+ Years (1 of 2 - PCV) Pneumococcal Vaccine: 65+ Years (1 of 2 - PCV) [facility] Start: 06-19-1943 COVID-19 Vaccine (#1) COVID-19 Vaccine (#1) [facility] Start: 1942 Creatinine measurement Creatinine Level [facility] Start: 1942 Hemoglobin A1c measurement Diabetes: Hemoglobin A1C [facility] Start: 1942 Lipid panel Lipid Panel [facility] Start: 1942 Medicare Annual Wellness Visit Medicare Annual Wellness Visit (AWV) [facility] Start: 1942 Potassium measurement Potassium Level [facility] Start: 1942 Urine screening for protein Diabetes: Urine Protein Screening [facility] End: 06-12-2019 Cardiac catheterization Cardiac Catheterization Cardiac Cath Routine One Time for 1 Occurrences starting 06/12/2019 until 06/12/2019 [facility] [place] Comment on above: One Time for 1 Occurrences starting 05/16 until 06/12/2019 Glucose measurement estimated from glycated hemoglobin [facility] Initiate Oxygen Ther apy Protocol Initiate Oxygen Therapy Protocol Respiratory Care Routine Daily until discontinued starting 06/12/2019 [facility] Comment on above: Daily until discontinued starting 2018 POCT glucose [facility] [place] Comment on above: 4X Daily (AC & HS) until discontinued st [facility]ting 06/12/2019 As Needed until disc ontinued starting 06/12/2019 Pulse oximetry, continuous Pulse oximetry, continuous Respiratory Care Routine Every 4hr until discontinued starting 06/12/2019 [facility] Comment on above: Every 4hr until discontinued starting XR CHEST STANDARD (2 VW) XR CHES T STANDARD (2 VW) Imaging Routine 06/13/2019 10:36 AM EDT [facility] Immunizations Immunization Date Immunization Notes Care Provider [facility] 06-30-2024 influenza virus vacc ine, unspecified formulation [employer] [facility] 08-13-2023 influenza virus vacc ine, unspecified formulation Rosemary Cartagena MD Work Phone: [facility] Work Phone: 08-09-2023 influenza virus vacc ine, unspecified formulation [employer] [facility] 08-29-2022 influenza virus vacc ine, unspecified formulation [employer] [facility] 06-08-2022 influenza virus vacc ine, unspecified formulation [employer] [facility] 09-01-2021 SARS-CoV-2 (COVID-19 ) mRNA BNT-162b2 vax [employer] [facility] 07-21-2021 diphtheria, tetanus toxoids and acellular pertussis vaccine Osvaldo Maciel Other [facility] 07-21-2021 diphtheria, tetanus toxoids and acellular pertussis vaccine, unspecified formulation DO Shanique Anderson Work Phone: [facility] 06-13-2021 Flu Vaccine - Adult DO Redd Anderson Work Phone: [facility] 06-13-2021 influenza, seasonal, injectable DO Shanique Anderson Work Phone: [facility] 03-04-2021 SARS-CoV-2 (COVID-19 ) mRNA BNT-162b2 vax [employer] [facility] 02-11-2021 SARS-CoV-2 (COVID-19 ) mRNA BNT-162b2 vax [employer] [facility] 11-03-2020 COVID-19 mRNA, Comir jenna (Pfizer) DO Shanique Anderson Work Phone: [facility] Comment on above: Result Comment: 2024: [id number] 10-13-2020 COVID-19 mRNA, Comir jenna (Pfizer) DO Shanique Anderson Work Phone: [facility] Comment on above: Result Comment: 2024: [id number] 08-31-2020 influenza virus vacc ine, unspecified formulation [employer] [facility] 05-27-2020 influenza virus vacc ine, unspecified formulation [employer] [facility] 06-24-2019 influenza virus vacc ine, unspecified formulation [employer] [facility] 01-12-2019 zoster vaccine recombinant [employer] [facility] 06-29-2018 pneumococcal polysaccharide vaccine, 23 valent [employer] [facility] 06-24-2018 zoster vaccine recombinant Petr [employer] [facility] 05-18-2018 influenza virus vacc ine, unspecified formulation [employer] [facility] 06-02-2017 influenza virus vacc ine, unspecified formulation Petr [employer] [facility] 09-07-2016 influenza virus vacc ine, unspecified formulation [employer] [facility] 06-10-2016 influenza virus vacc ine, unspecified formulation [employer] [facility] 06-10-2016 pneumococcal polysaccharide vaccine, 23 valent Petr [employer] [facility] 05-29-2016 pneumococcal polysaccharide vaccine, 23 valent [employer] [facility] 08-01-2015 influenza virus vacc ine, unspecified formulation Petr [employer] [facility] 05-29-2015 influenza virus vacc ine, unspecified formulation Petr [employer] [facility] 05-29-2015 pneumococcal conjuga te vaccine, 13 valent [employer] [facility] 04-11-2015 pneumococcal conjuga te vaccine, 13 valent [employer]r [employer] [facility] 06-10-2014 influenza virus vacc ine, unspecified formulation [employer] [facility] 06-13-2013 DTaP, unspecified formulation [employer] [facility] 05-24-2013 influenza virus vacc ine, unspecified formulation [employer] [facility] 07-14-2011 influenza virus vacc ine, unspecified formulation [facility] [place] 06-16-2010 pneumococcal polysaccharide vaccine, 23 valent [employer] [facility] Payers Date Payer Category Payer Unknown [id number] 2023 () [id number] 2022 [employer] ( and others) [id number] 2022 For Life (TFL) F OR LIFE [id number] 2018 Medicare MEDICARE MEDICAR E PART A AND B xxxxxxxxxxx 2018-Present [phone] [place] [address] xxxxxxxxxxx [id number] 2016 [employer] ( and others) FOR LIFE MEDICARE SUPP xxxxxxxxx 2016-Present C/O PGBA/ [address] [place] [address] xxxxxxxxx [id number] 2014 Medicare [id number] 2007 Medicare [id number] 1959 [employer] ( and others) [id number] 1959 Medicare [id number] 1959 Self-pay [id number] 1942 Unknown [id number] 1942 Unknown [id number] 1942 Unknown [id number] 1942 Unknown [id number] 1942 Unknown [id number] 1942 Unknown [id number] 1942 Unknown [id number] 2.16.840.1.665279.3.579.2 .593 1940 Unknown [id number] 2.16.840.1.572044.3.579.2 .1246 1942 Unknown [id number] 2.16.840.1.148031.3.579.2 .1259 1942 Unknown [id number] 2.16.840.1.946566.3.579.2 .1259 1942 Unknown [id number] 2.16.840.1.153539.3.579.2 .1259 1942 Unknown [id number] 2.16.840.1.426925.3.579.2 .1259 1942 Unknown [id number] 2.16.840.1.560012.3.579.2 .1259 1942 Unknown [id number] 2.16.840.1.453689.3.579.2 .1244 1942 Unknown [id number] 2.16840.1.920960.3.579.2 .4 1942 Unknown [id number] 2.16.840.1.155672.3.579.2 .1244 1942 Unknown [id number] 2.16.840.1.256539.3.579.2 .4 1942 Unknown [id number] 2.16.840.1.259268.3.579.2 .1244 1942 Unknown [id number] 2.16.840.1.916292.3.579.2 .1244 1942 Unknown [id number] 2.16.840.1.100544.3.579.2 .1244 1942 Unknown [id number] 2.16.840.1.073495.3.579.2 .727 1942 Unknown [id number] 2.16.840.1.982831.3.579.2 .727 1942 Unknown [id number] 2.16.840.1.950519.3.579.2 .727 1942 Unknown [id number] 2.16.840.1.761337.3.579.2 .727 1942 Unknown [id number] 2.16.840.1.216882.3.579.2 .727 1942 Unknown [id number] 2.16.840.1.162573.3.579.2 .727 1942 Unknown [id number] 2.16.840.1.565529.3.579.2 .1245 1942 Unknown [id number] 2.16.840.1.195525.3.579.2 .1245 Unknown [id number] 2.16.840.1.405979.3.579.2 .531 Unknown [id number] 2.16.840.1.369407.3.579.2 .531 Unknown [id number] 2.16.840.1.284962.3.579.2 .531 Unknown [id number] 2.16.840.1.804286.3.579.2 .531 Unknown [id number] 2.16.840.1.873866.3.579.2 .531 Unknown [id number] 2.16.840.1.216269.3.579.2 .531 Unknown [id number] 2.16.840.1.145358.3.579.2 .531 Unknown [id number] 2.16.840.1.558849.3.579.2 .531 Social History Date Type Detail Facility Start: 06-12-2019 End: 07-25-2024 Tobacco smoking status NHIS Former smoker [facility] Start: 09-13-1958 End: 09-13-2011 History of tobacco use Current smoker [place], [place] Start: 09-13-1958 End: 09-13-2011 History of tobacco use Cigarette Smoker [place] Start: 06-12-2019 End: 09-01-2024 Cigarettes smoked current (pack per day) - Reported [place] Start: 06-12-2019 End: 09-01-2024 Alcohol intake No [facility] Start: 05-06-2015 Tobacco Comment quit x 5 year [facility] Start: 1940 Sex Assigned At Not on file M [facility] [place] Start: 1940 Sex Assigned At Male F [facility] Start: 08-30-2023 End: 01-24-2024 Tobacco use and exposure Smokeless tobacco non-user [facility] Work Phone: Start: 08-30-2023 End: 09-01-2024 Alcohol intake Current drinker of alcohol (finding) [facility] Work Phone: Start: 08-30-2023 Alcohol Comment 1 YEARLY [facility] Work Phone: Start: 08-20-2023 End: 09-01-2024 Exposure to SARS-CoV-2 (event) Not sure [facility] Tobacco smoking status No Smokin g Status Entered [facility] Gaby Start: 01-24-2024 Tobacco smoking stat us GAIS Never smoked tobacco [facility] Start: 02-23-2024 End: 08-24-2024 Alcoholic beverage intake Lifetime non-drinker (finding) [facility] Start: 09-17-2024 End: 09-27-2024 Exposure to SARS-CoV-2 (event) Unable to assess [facility] Medical Equipment Procedure Code Equipment Code Equipment Origin al Text Equipment Identifier Dates Cement Barium Radiopq Full 40gr [id number] Start: 12-02-2017 Cement Barium Radiopq Full 40gr [id number] Start: 12-02-2017 Impl Knee X3 Patella [id number] Star t: 12-02-2017 Impl Capped Knee Advanced _imp Start: 12-02-2017 Impl Knee Fem Co mp Cmntd Sz 6 _imp Start: 12-02-2017 Impl Knee Patell a Asym X3 [id number] Start: 12-02-2017 Impl Knee Tib Baseplt Prime Sz 6 _imp Start: 12-02-2017 Impl Knee Tib In srt Postr X3 Sz6 11mm [id number] Start: 12-02-2017 Stimulator Neuro Pulse [id number] Start: 04-27-2017 Pacemaker 10196_exp Pacemaker 10196_imp Lt Knee 10197_exp Lt Knee 10197_imp Goals Date Patient Goal Desired Activity /State Functional Status Date Assessment Result Facility 07-25-2024 Functional Status N/A [facility] 06-15-2024 Functional Status N/A [facility] 04-25-2024 Functional Status N/A [facility] Clinical Notes 06-16-2021 to 09-27-2024 [place] [...] vascular complications, sedation related complications, risk of CO, CVA, device embolization, pericardial tamponade and . [...] care of this patient. 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 Congestive heart failure, NYHA class 3, chronic, systolic 2. Nonrheumatic mitral valve regurgitation 3. ICD (implantable cardioverter-defibrillator) in place 4. 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 Obstructive sleep [...] discussion and plan. documented in this encounter [facility] Work Phone: 09-01-2024 Instructions Heaven Shah LPN [...] up per routine documented in this encounter [facility] Work Phone: 07-27-2024 History of Present illness Narrative Images from the original note were not included. This is a follow-up from April 2024. At that time we uptitrated Entresto to 24/20 6 in the morning and 49/50 1 in the evening. Blood work was ordered. Patient is accompanied by and grandson. Grandson is an ER nurse in [place]. 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 Former smoker 8. Body mass index (BMI) 28.0-28.9, adult 9. Permanent atrial fibrillation (Multi) ECG 12 Lead 10. Parkinson's disease, unspecified whether dyskinesia present, unspecified whether manifestations fluctuate Referral to Cardiac Electrophysiology 11. Falls frequently Referral to Cardiac Electrophysiology Clinical decision making: Patient with high [id number] score and high Hasbled score. Permanent atrial [...] evaluated by me and is referred to [facility] for a left atrial appendage implant due thromboembolic stroke risk from atrial fibrillation with CHADS2 score >= 2 or a HDI4SC6-DAQz score >= 3. This patient is not a good candidate for alf anticoagulation for the following reason(s): This patient [...] discussion and plan. documented in this encounter [facility] Work Phone: 07-27-2024 Instructions Heaven Shah LPN [...] instructions on exercise. documented in this encounter [facility] Work Phone: 07-25-2024 Hospital Discharge instructions Patient [...] nerve stimulation). ?For women, using a medical center director to prevent urine leaks. This is a [...] right after experiencing incontinence. General instructions Take mmpv-hvj-bijrgbp and prescription medicines only as told by [...] important. Where to find more information National [place] of Diabetes and Digestive and Kidney Diseases: www.niddk.nih.gov [employer] [employer]: www.urologyhealth.org Contact a health care [...] provider. Document Revised: 04/04/2021 Document Reviewed: 04/04/2021 CAD Crowd Patient Education 2023 [employer]. 07/25/2024 14:17:38 Benign Prostatic Hyperplasia Benign Prostatic [...] urethra. Follow these instructions at home: Take nrmf-pss-azzmsjd and prescription medicines only as told by [...] provider. Document Revised: 03/18/2022 Document Reviewed: 03/18/2022 CAD Crowd Patient Education 2023 [employer]. 07/25/2024 14:17:37 Paraphimosis Paraphimosis Paraphimosis is a [...] pressure to the area. General instructions Take mnfu-ygg-azlmpzy and prescription medicines only as told by [...] and water are not available, use hand physician intensivist. ?Ask when you should remove your dressing. [...] needs to be treated right away. Take dmib-bkq-mwxszwh and prescription medicines only as told by [...] provider. Document Revised: 08/13/2022 Document Reviewed: 08/13/2022 CAD Crowd Patient Education 2023 [employer]. Follow Up Care 06/15/2024 10:57:21 With:CINTHYA SANCHEZ, Petr Richard, URL Address: [facility] [address] [place] [address]- When: Unknown Comments:2 mos w/ PSA [facility] [employer] 07-25-2024 Note Patient Education Urology Urinary Incontinence [...] stimulation). ? For women, using a medical center director to prevent urine leaks. This is a [...] health care provider (more content not included)... [facility] 06-15-2024 Note Progress Note-Physic famiila Patient: YOANA IBRAHIM Age: 83 years Sex: [...] afterwards, # 2 tab(s), Refills(s) 0, Pharmacy: [facility]/pharmacy #[id number], 167, cm, 04/25/24 13:59:00 EDT, Height/Length Dosing, 72, kg, 08/13/24 13:59:00 EDT, Weight Dosing Myrbetriq 50 mg oral tablet, extended release: 50 mg = 1 tab(s), Oral, Daily, # 30 tab(s), Refills(s) 11, Pharmacy: [facility]/pharmacy #[id number], 167, cm, 06/15/24 10:14:00 EDT, Height/Length [...] and Minerals: Daily, Refill(s) 0 Potassium Chloride (Yoo-Ybox-Ubp 10) 10 mEq oral tablet, extended release: [...] = 0.5 tab(s), Oral, Daily Potassium Chloride (Ypj-Ykal-Xya 10) 10 mEq oral tablet, extended release 10 mEq = 1 tab(s), Oral, Daily psyllium oral powder 6 gm, Oral, BID rivastigmine 13.3 mg/24 hr transdermal film, extended release 1 patch(es), Topical, Daily tamsulosin 0.4 mg Cap 0.4 mg = 1 cap(s), Oral, Bedtime Problem list: All Problems History of prostate cancer / SNOMED CT 4088786184 / Confirmed Anxiety / SNOMED CT 42173032 / Confirmed Pancreatic insufficiency / SN (more content not included)... [facility] Comment on above: Result Comment: Elec tronically Signed By: Petr PAINTING MD\.br\Date and Time Signed: 06/15/24 17:17 EDT 06-15-2024 Evaluation + Plan note Extrac sterling from: Title:HOPD visit Author:Petr PAINTING MD Date: 06/15/24 Impression and Plan Assessment and Plan: Diagnosis: BPH with obstruction/lower urinary tract symptoms (FTD32-XZ N40.1, Billing Diagnosis, Medical), Chronic radiation cystitis (ICD10- CM N30.40, Billing Diagnosis, Medical), Other obstructive and reflux uropathy (ADN09-PR N13.8, Discharge, Medical), Overactive bladder (IPR12-CZ N32.81, Billing Diagnosis, Medical), Personal history of prostate cancer (JRS44-OD Z85.46, Billing Diagnosis, Medical). Additional Plan of [...] PM Scheduled Provider:BARB Salinas APRN, Anabel Anthony Location:[facility] Appointment Type:URO Office Visit [facility] 10-03-2024 Hospital Discharge instructions Patient Education 06/15/2024 [...] your antibiotics and have a great day! [facility] 10-03-2024 NotePatient Education Cystoscopy ? Voiding after [...] if you have a fever over 100 degrees.[facility] 05-01-2024 NoteUrology Office/Clinic Note Chief Complaint [facility], and hx prostate cancer. HPI Staff 83 year old male new patient referred for incontinence, hx of prostate cancer. Dr. Anderson is PCP per 09/14/23 OR note. Was seeing [place]rologist [place] but hasn't sen them for 2 years. [...] with voice recognition artificial intelligence software, specifically [employer] and or [employer]. Substitutions may have occurred due to the [...] [address] Galvez in [place]. No recent PSA or cancer monitoring. Patient [...] 6. 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 (current) use of antithrombotics/antiplatelets) On Plavix Follow-up With When Contact Information CINTHYA SANCHEZ, Petr Richard, URL [address] [place] [id number]- Additional Instructions: schedule cysto Patient Education Prostate Cancer Benign Prostatic Hyperplasia Problem List/Past Medical History Ongoing Acute kidney injury Anemia Anxiety Arthritis Atrial fibrillation Benign prostatic hyperplasia with outflow obstruction Cerebrovascular accident Chronic kidney disease Chronic obstructive pulmonary disease Chronic systolic heart failure Congestive heart failure Deafness Dementia Diabetes Essen (more content not included)...[facility]: Result Comment: Electronically Signed By: BARB Salinas APRN, [place] X\.br\Date and Time Signed: 05/01/24 08:58 [id number] NotePatient Education Oncology Prostate Cancer The prostate [...] under a microscope. This is called the Genoa score and the total score can range from 6?10, indicating how likely it is that the cancer will spread (metastasize) to other parts of the body. The higher the score, the greater thelikelihood that the cancer will spread. ? Genoa 6 or lower: This indicates that the cancer cells look similar to normal prostate cells (well differentiated). ? Earl 7: This indicates that the cancer cells look somewhat similar to normal prostate cells (moderately differentiated). ? Genoa 8, 9, or 10: This indicates that [...] implanted intothe prostate gla (more content not included)...[facility]08-13-2024 Evaluation + Plan note Diagnostic Tests Pending * PSA Total 04/25/24 [facility] [place] 08-12-2024 History of Present illness Narrative* [...] Sick sinus syndrome dual-chamber pacemaker, revised to [employer] Evera XT DR ICD May 2019,with a [...] features (Multi) 10/25/2023 Sacroiliitis, not elsewhere classified ([facility]-HCC) 10/25/2023 Idiopathic chronic pancreatitis (Multi) 10/25/2023 Dementia [...] bypass graft 08/30/2023 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rosuvastatin (Crestor) 5 mg tablet 6. Hx of coronary artery bypass graft 7. 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 Follow Up In Cardiology 8. MCC 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 9. Other specified diabetes mellitus with other specified complication, unspecified whether longitudinal float operator insulin use (Multi) 10. Obstructive sleep apnea [...] exam, discussion and plan. [facility] Phone: 1(894) 734-870008-12-2024 Instructions* Patient Instructions* Carrie Garcia LPN - [...] through Care Everywhere. 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 [employer] Evera XT DR ICD May 2019, with [...] contact the office if new symptoms arise. 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 Voice recognition software was utilized to prepare this document. documented in this [facility] Work Phone: 1(169) 553-773304-10-2024 Instructions* Patient Instructions* CHARLI Hollingsworth - 12/22/2023 [...] contact the office if new symptoms arise. 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 LEAD FURNACE OPERATOR in 2 weeks [facility] MSN, 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, PMHNP-[facility] Please excuse any errors in grammar or translation related to this dictation. Voice recognition software was utilized to prepare this document. documented in this [facility] Work Phone: [phone]) 309-136903-25-2024 Instructions* Patient Instructions* CHARLI Hollingsworth - 12/06/2023 [...] contact the office if new symptoms arise. 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 documented in this [facility] Work Phone: [phone] Instructions* Patient Instructions* Monisha Roberts LPN - [...] follow up per routine [facility] Phone: [phone]) 232-960001-04-2024 Evaluation note* Encounter Date Diagnosis Assessment Notes Treatment Notes Treatment Clinical Notes Sep, Diarrhea (ICD-10 - R19.7) [place] [facility] Other 2023 History of Present illness Narrative* Rosemary Cartagena MD - 08/30/2023 10:30 AM EST Referring provider: Justin MARIN. History Of Present Illness: Yoana Ibrahim is a 82 y.o. male presenting with long history of cardiac problems, and is here to establish cardiology visit. Previously was going to [place], patient and want to switch care over to [facility]. Has history of atrial fibrillation coronary artery [...] 62 bpm Assessment/Plan 1. Permanent atrial fibrillation ([facility]) 2. ICD (implantable cardioverter-defibrillator) in place 3. Sleep apnea, unspecified type 4. Abnormal EKG 5. Hx of coronary artery bypass graft 6. Coronary artery disease, unspecified vessel or lesion type, unspecified whether angina present, unspecified whether inupiat or transplanted heart 7. 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 Shortness of breath 9. History of stroke 10. Benign prostatic hyperplasia with lower urinary tract symptoms, symptom details unspecified 11. Ischemic cardiomyopathy 12. Fatigue, unspecified type 13. Other specified diabetes mellitus with other specified complication, unspecified whether alf insulin use ([facility]) Patient has chronic left heart failure, systolic, [...] further questions arise, Sincerely, Rosemary Cartagena MD [facility] Provider Attestation - Scribe documentation All [...] of Rosemary Cartagena MD. 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) Patient will continue Creon as directed without change Mar, Diarrhea (ICD-10 - R19.7) Patient reports that he still has fecal accidents about 1 every 2 weeks Patient will continue Imodium as direct without change [facility] Other 12-15-2022 Evaluation note* Encounter Date Diagnosis Assessment Notes Treatment Notes Treatment Clinical Notes Aug, Diarrhea (ICD-10 - R19.7) [facility] Other 12-13-2022 Evaluation note* Encounter Date Diagnosis Assessment Notes Treatment Notes Treatment Clinical Notes Aug, Diarrhea (ICD-10 - R19.7) [facility] Other 06-29-2022 Evaluation note* Encounter Date Diagnosis Assessment Notes Treatment Notes Treatment Clinical Notes Feb, 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 PATIENT ADVISED WE WILL INCREASE MEDICATION AT THIS TIME. 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 All the questions were answered. [facility] Other 10-05-2021 Evaluation note* Encounter Date Diagnosis Assessment Notes Treatment Notes Treatment Clinical Notes Jun, Lumbar degenerative disc disease (ICD-10 - M51.36) [facility] Other 10-04-2021 Evaluation note* Encounter Date Diagnosis [...] - M47.817) Stable, proceed with treatment plan. [facility] Other 10-04-2021 Evaluation note* Encounter Date Diagnosis Assessment Notes Treatment Notes Treatment Clinical Notes Jun, Lower extremity pain (ICD-10 - M79.606) [facility] Other Evaluation + Plan note Future Appointments Appointment Date:04/25/2024 01:30:00 PM Scheduled Provider:BARB Salinas APRN, [place] [facility] Location:[facility] Appointment Type:URO New Patient [facility] Evaluation + Plan note Future Appointments Appointment Date:10/03/2024 03:30:00 PM Scheduled Provider:Petr PAINTING MD Location:[facility] Appointment Type:URO Office Visit Diagnostic Tests Pending * PSA Total 07/25/24 [facility] evaluation + Plan note Future Appointments Appointment Date:11/22/2024 03:00:00 PM Scheduled Provider:Petr PAINTING MD Location:[facility] Appointment Type:URO Office Visit [facility] Gaby evaluobozn noteNo InformationNort Rapleaf Other Evaluation noteNo assessment information available [facility] Work Phone: Evaluation note* Diagnosis Permanent atrial fibrillation (CMS/HCC)- Primary Atrial fibrillation ICD (implantable cardioverter-defibrillator) in place Sleep apnea, unspecified type Abnormal EKG Nonspecific abnormal electrocardiogram (ECG) (EKG) Hx of coronary artery bypass graft Postsurgical aortocoronary bypass status Coronary artery disease, unspecified vessel or lesion type, unspecified whether angina present, unspecified whether inupiat or transplanted heart 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 Shortness of breath History of stroke Transient ischemic attack (TIA), and cerebral infarction without residual deficits Benign prostatic hyperplasia with lower urinary tract symptoms, symptom details unspecified Ischemic cardiomyopathy Other specified forms of chronic ischemic heart disease Fatigue, unspecified type Other specified diabetes mellitus with other specified complication, unspecified whether longitudinal float operator insulin use (CMS/HCC) documented in this encounter [facility] Work Phone: Evaluation note* Diagnosis Abnormal EKG Nonspecific abnormal electrocardiogram (ECG) (EKG) Sleep apnea, unspecified type Permanent atrial fibrillation (CMS/HCC) Atrial fibrillation Shortness of breath documented in this encounter [facility] Work Phone: Evaluation note* Diagnosis Bipolar disorder, current episode manic severe with psychotic features (CMS/HCC)- Primary Permanent atrial fibrillation (CMS/HCC) Atrial fibrillation Ischemic cardiomyopathy Other specified forms of chronic ischemic heart disease ICD (implantable cardioverter-defibrillator) in place Hx of coronary artery bypass graft Postsurgical aortocoronary bypass status 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 History of stroke Transient ischemic attack (TIA), and cerebral infarction without residual deficits Other specified diabetes mellitus with other specified complication, unspecified whether alf insulin use (CMS/HCC) 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 Unspecified essential hypertension 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 Obstructive sleep apnea syndrome Obstructive sleep apnea (adult) (pediatric) Medication course changed Sacroiliitis, not elsewhere classified ([facility]/HCC) Sacroiliitis, not elsewhere classified Idiopathic chronic pancreatitis ([facility]) Dementia in other diseases classified elsewhere, unspecified severity, without behavioral disturbance, psychotic disturbance, mood disturbance, and anxiety ([facility]) Major depressive disorder, recurrent, moderate ([facility]) Major depressive disorder, recurrent episode, moderate Acute embolism and thrombosis of right peroneal vein ([facility]/HCC) Prostate CA ([facility]) Malignant neoplasm of prostate Chronic systolic heart failure ([facility]) Chronic systolic heart failure documented in this encounter [facility] Work Phone: Evaluation note* Diagnosis BMI 29.0-29.9,adult- Primary Ischemic cardiomyopathy Other specified forms of chronic ischemic heart disease 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 Unspecified essential hypertension documented in this encounter [facility] Work Phone: Evaluation note* Diagnosis BMI 31.0-31.9,adult- Primary Ischemic cardiomyopathy Other specified forms of chronic ischemic heart disease documented in this encounter [facility] Work Phone: Evaluation note* Diagnosis Onset Date Resolution Status Exocrine pancreatic insufficiency [facility] Work Phone: Evaluation note* Diagnosis Hyperreflexia- Primary [...] not intractable Cerebrovascular accident (CVA), unspecified mechanism ([facility]) Vertigo Dizziness and giddiness documented [facility] Diagnosis Congestive heart failure, NYHA class 3, chronic, systolic 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 Unspecified essential hypertension Hx of coronary artery bypass graft Postsurgical aortocoronary bypass status ICD (implantable cardioverter-defibrillator) in place Ischemic cardiomyopathy Other specified forms of chronic ischemic heart disease MCC 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 Former smoker Personal history of tobacco use, presenting hazards to health Body mass index (BMI) 28.0-28.9, adult Permanent atrial fibrillation (Multi) Atrial fibrillation Parkinson's disease, unspecified whether dyskinesia present, unspecified whether manifestations fluctuate Falls frequently Personal history of fall documented in this encounter [facility] Work Phone: Evaluation note* Diagnosis Permanent atrial fibrillation (Multi) Atrial fibrillation Ischemic cardiomyopathy Other specified forms of chronic ischemic heart disease Congestive heart failure, NYHA class 3, chronic, systolic (Multi) 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 Hx of coronary artery bypass graft Postsurgical aortocoronary bypass status 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 Unspecified essential hypertension 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 Other specified diabetes mellitus with other specified complication, unspecified whether longitudinal float operator insulin use (Multi) Obstructive sleep apnea syndrome Obstructive sleep apnea (adult) (pediatric) History of stroke Transient ischemic attack (TIA), and cerebral infarction without residual deficits Stage 3b chronic kidney disease (Multi) BMI 29.0-29.9,adult Former smoker Personal history of tobacco use, presenting hazards to health Nonrheumatic mitral valve regurgitation Nonrheumatic aortic valve insufficiency documented in this encounter [facility] Work Phone: Evaluation note* Diagnosis Periodic limb movement disorder- Primary Gait difficulty Abnormality of gait Balance problem Abnormality of gait Radiculopathy, lumbosacral region Thoracic or lumbosacral neuritis or radiculitis, unspecified Memory loss documented in this encounter [facility]* Diagnosis MCC 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- Primary Congestive [...] ischemic heart disease 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 Unspecified essential hypertension Former smoker Personal history of tobacco use, presenting hazards to health documented in this encounter [facility] Work Phone: Evaluation note* Diagnosis Persistent atrial fibrillation (Multi)- Primary Atrial fibrillation ICD (implantable cardioverter-defibrillator) in place MCC 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 Parkinson's disease, unspecified whether dyskinesia present, unspecified whether manifestations fluctuate Falls frequently Personal history of fall documented in this encounter [facility] Work Phone: Hisfhgz general Narrative - Reported* Type Description Date Medical History degenerative disc disease Medical History stenosis Medical History bladder cancer Medical History stroke Medical History DM 2 Surgical History APPENDECTOMY Surgical History CHOLECYSTECTOMY Surgical History bilateral knee replacements Surgical History cardiac pacemaker Surgical History bladder stimulator Surgical History open heart surgery Hospitalization History see above [facility] Other [facility] general Narrative - Reported* Type Description Date Medical History degenerative disc disease Medical History stenosis Medical History bladder cancer Medical History stroke Medical History DM 2 Medical History DVT Surgical History APPENDECTOMY Surgical History CHOLECYSTECTOMY Surgical History bilateral knee replacements Surgical History cardiac pacemaker Surgical History bladder stimulator Surgical History open heart surgery Surgical History cataract-lens implants RACHELLE. Hospitalization History see above [facility] Other Hospital course Narrative No data available for this section [facility] Discharge instructions No data available for this section [facility] Progress note No data available for this section [facility] Reason for referral (narrative)* Consultation (Routine) - Authorized Specialty Diagnoses / Procedures Referred By Contac t Referred To Contact Cardiology Diagnoses Permanent atrial fibrillation (CMS/HCC) Ischemic cardiomyopathy ICD (implantable cardioverter-defibrillator) in place 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 Procedures Follow Up In Cardiology Rosemary Cartagena MD [address] [place] [address] [address] [place] [address] [facility], 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 [address] [facility] [address], [facility] [address] [place] [address] Referral ID Status Reason Start Date Expiration Date V isits Requested Visits Authorized [id number] Authorized 10/25/2023 10/24/2024 1 1 * Consultation (Routine) - Authorized Specialty Diagnoses / Procedures Referred By Contac t Referred To Contact Sleep Medicine Diagnoses Obstructive sleep apnea syndrome Rosemary Cartagena MD [address] [address] Referral ID Status Reason Start Date Expiration Date Visits Requested Visits Authorized [id number] Authorized Specialty Services Required 10/25/2023 10/24/2024 1 1 * Consultation (Routine) - Authorized Specialty Diagnoses / Procedures Referred By Contac t Referred To Contact Cardiology Diagnoses Permanent atrial fibrillation (CMS/HCC) Ischemic cardiomyopathy ICD (implantable cardioverter-defibrillator) in place 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 Procedures Follow Up In Cardiology Rosemary Cartagena MD [address] [place] [address] Rosemary Cartagena MD [address] [place] [id number] Referral ID Status Reason Start Date Expiration Date V isits Requested Visits Authorized [id number] Authorized 10/25/2023 10/24/2024 1 1 [facility] Work Phone: Reppps for referral (narrative)* Consultation (Routine) - Authorized Specialty Diagnoses / Procedures Referred By Contac t Referred To Contact Cardiology Diagnoses Ischemic cardiomyopathy Procedures Follow Up In Cardiology [facility], MARISEL-ADJUNCT PSYCHOLOGY PROFESSOR [address] [facility] 2, [address] [address] Referral ID Status Reason Start Date Expiration Date V isits Requested Visits Authorized [id number] Authorized 12/06/2023 12/05/2024 1 1 [facility] Work Phone: Reakyk for referral (narrative)* Consultation (Routine) - Authorized Specialty Diagnoses / Procedures Referred By Contac t Referred To Contact Cardiology Diagnoses Ischemic cardiomyopathy Procedures Follow Up In Cardiology [facility], 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 [address] [facility] 2, Sukhwinder [address] [place] [address] Referral ID Status Reason Start Date Expiration Date V isits Requested Visits Authorized [id number] Authorized 12/22/2023 12/21/2024 1 1 [facility] Work Phone: Repjwc for referral (narrative)* Consultation (Routine) - Authorized Specialty Diagnoses / Procedures Referred By Contac t Referred To Contact Cardiology Diagnoses Congestive heart failure, NYHA class 3, chronic, systolic (Multi) Procedures Follow Up In Cardiology Rosemary Cartagena MD [address] [facility] [address] [place] [address] Rosemary Cartagena MD [address] [facility] [address] [place] [address] Referral ID Status Reason Start Date Expiration Date V isits Requested Visits Authorized [id number] Authorized 04/24/2024 04/24/2025 1 1 T [facility] Work Phone: reason for visit Narrative* Consultation (Routine) - Authorized Specialty Diagnoses / Procedures Referred By Contac t Referred To Contact Cardiology Diagnoses ICD (implantable cardioverter-defibrillator) in place MCC 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 Parkinson's disease, unspecified whether dyskinesia present, unspecified whether manifestations fluctuate Falls frequently Rosemary Cartagena MD [address] [facility] [address] [place] [address] Phone: tel: fax: Fabiano Pickering MD [address] [facility] [address] [place] [address] Phone: tel: fax: Referral ID Status Reason Start Date Expiration Date Visits Requested Visits Authorized [id number] Authorized Specialty Services Required 4 07/27/2025 1 1 [facility] Work Phone: Summary Purpose Family History No [...] FoundDocuments on File Type Date Recorded Patient Account Executive Sales Representative Expl anation Advance Directives and Livin g Will Advance Directives and Livin g Will 10/15/2013 9:06 AM Power of Pool Cleaner Power of Pool Cleaner 10/15/2013 9:06 AM Latest Code Status on [...] of his home medications were given to information writer & information writer sent medication to pharmacy for verification. [...] Lumbar degenerative disc disease (M51.36) Referral Organization [facility] Pain Managemen t Referring Provider First Name Ryder Referring Provider Last Name Ranjeet Referring Provider Specialty Pain Medici ne Referred Organization [facility] Ne urosurgery Referred Provider Maciej Maciel Dale Referred Address [address],[address] Referred Provider Specialty Neurological Surgery Referral Priority Routine General Notes Tarsha Nieto V 02:53:20 PM >Patient had CT scan of the lumbar spine in [place] earlier this year. He has a pacemaker/defibrillator and cannot have MRI Reason *FU 06/24 eval and treat Diagnosis 1 Lower extremity pain (M79.606) Referral Organization [facility] Pain Managemen t Referring Provider First Name Ryder Referring Provider Last Name Ranjeet Referring Provider Specialty Pain Medici ne Referred Organization [facility] Vascular Surge ry Referred Provider Abdon Jackman Referred Address [address] [facility] [address],[place], [place],[address] Referred Provider Specialty Vascular Laila haresh Referral Priority Routine General Notes HernandezSadaf 10:25:46 AM >p2p sent Reason Evaluate and Treat Diagnosis 1 Spondylolisthesis, l umbar region (M43.16) Referral Organization [facility] Ne urosurgery Referring Provider First Name Osvaldo Referring Provider Last Name Raheem Referring Provider Specialty Neurologica l Surgery Referred Organization [facility] Referred Address [address] [place], [place],[address] Referred Provider Specialty Physical The rapist Referral Priority Routine Specialty Diagnoses / Procedures Referred By Godwin t Referred To Contact Cardiology Diagnoses Abnormal EKG Sleep apnea, unspecified type Permanent atrial fibrillation (CMS/HCC) Shortness of breath Procedures Transthoracic Echo (TTE) Complete NM ECHO TRANSTHORC R-T 2D W/WO M-MODE REC F-UP/LMTD NM DOP ECHOCARD COLOR FLOW VELOCITY MAPPING NM DOP ECHOCARD PULSE WAVE W/SPECTRAL F-UP/LMTD STD Rosemary Cartagena MD [address] [address] Referral ID Status Reason Start Date Expiration Date Visits Requested Visits Authorized [id number] Pending Review Perform Procedure 3 08/29/2024 1 1 Specialty Diagnoses / Procedures Referred By Godwin t Referred To Contact Cardiology Diagnoses ICD (implantable cardioverter-defibrillator) in place Ischemic cardiomyopathy Rosemary Cartagena MD [address] [address] Referral ID Status Reason Start Date Expiration Date Visits Requested Visits Authorized [id number] Authorized Specialty Services Required 3 08/29/2024 1 1 Specialty Diagnoses / Procedures Referred By Godwin t Referred To Contact Diagnoses ICD (implantable cardioverter-defibrillator) in place Permanent atrial fibrillation (CMS/HCC) Procedures ECG 12 Lead Rosemary Cartagena MD 254 [facility] [address] [place] [address] Referral ID Status Reason Start Date Expiration Date V isits Requested Visits Authorized [id number] Pending Review 08/30/2023 08/29/2024 1 1 Specialty Diagnoses / Procedures Referred By Contac t Referred To Contact Cardiology Diagnoses Permanent atrial fibrillation (CMS/HCC) Ischemic cardiomyopathy Procedures Follow Up In Cardiology Rosemary Cartagena MD 254 [facility] [address] [place] [address] Rosemary Cartagena MD 254 [facility] [address] [place] [address] Referral ID Status Reason Start Date Expiration Date V isits Requested Visits Authorized [id number] Authorized 08/30/2023 08/29/2024 1 1 Specialty Diagnoses / Procedures Referred By Contac t Referred To Contact Physical Therapy Diagnoses Gait difficulty Balance problem Procedures NM OFFICE/OUTPATIENT NEW HIGH MDM 60 MINUTES Viky Rollins PA [address] [place] [address] Referral ID Status Reason Start Date Expiration Date Visits Requested Visits Authorized [id number] Authorized Specialty Services Required 06/14/2024 12/11/2024 10 10 Specialty Diagnoses / Procedures Referred By Contac t Referred To Contact Radiology Diagnoses Hyperreflexia Balance problem Procedures CT cervical spine wo IV contrast Viky Rollins PA [address] [place] [address] [facility] Scheduling [address] [place] [address] Referral ID Status Reason Start Date Expiration Date Visits Re quested Visits Authorized [id number] Closed 06/13/2024 12/10/2024 1 1 Specialty Diagnoses / Procedures Referred By Contac t Referred To Contact Radiology Diagnoses Gait difficulty Balance problem Procedures CT head wo IV contrast Viky Rollins PA [address] [place] [address] [facility] Scheduling [address] [place] [address] Referral ID Status Reason Start Date Expiration Date Visits Re quested Visits Authorized [id number] Closed 06/13/2024 12/10/2024 1 1 Chief Complaint [...] and content) DATE CREATED AUTHOR 03/02/2018 [facility] DATE CREATED AUTHOR AUTHOR'S ORGANIZ ATION 06/26/2019 [facility] DATE CREATED AUTHOR AUTHOR'S ORGANIZ ATION 09/04/2022 [facility] DATE CREATED AUTHOR AUTHOR'S ORGANIZ ATION 06/01/2024 [facility] DATE CREATED AUTHOR AUTHOR'S ORGANIZ ATION 08/27/2024 [facility] EPIC DATE CREATED AUTHOR AUTHOR'S ORGANIZ ATION 09/04/2024 [facility] DATE CREATED AUTHOR AUTHOR'S ORGANIZ ATION 09/09/2024 [facility] DATE CREATED AUTHOR AUTHOR'S ORGANIZ ATION 10/04/2024 [facility] DATE CREATED AUTHOR AUTHOR'S ORGANIZ ATION 10/13/2024 [facility] Reason for Visit (unrecogniz ed section and content) Status Reason Specialty Diagnoses / Procedures Referre d By Contact Referred To Contact Diagnoses S/P ICD (internal cardiac defibrillator) 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 [place], [place] [facility] Reason Comments New Patient Visit Re-establish Specialty Diagnoses / Procedures Referred By Contac t Referred To Contact Diagnoses ICD (implantable cardioverter-defibrillator) in place Permanent atrial fibrillation (CMS/HCC) Procedures ECG 12 Lead Rosemary Cartagena MD 254 [facility] [address] [place] [address] Referral ID Status Reason Start Date Expiration Date V isits Requested Visits Authorized [id number] Pending Review 08/30/2023 08/29/2024 1 1 Specialty Diagnoses / Procedures Referred By Contac t Referred To Contact Cardiology Diagnoses Abnormal EKG Sleep apnea, unspecified type Permanent atrial fibrillation (CMS/HCC) Shortness of breath Procedures Transthoracic Echo (TTE) Complete NM ECHO TRANSTHORC R-T 2D W/WO M-MODE REC F-UP/LMTD NM DOP ECHOCARD COLOR FLOW VELOCITY MAPPING NM DOP ECHOCARD PULSE WAVE W/SPECTRAL F-UP/LMTD STD Rosemary Cartagena MD 254 [facility] [address] [place] [address] Referral ID Status Reason Start Date Expiration Date Visits Requested Visits Authorized [id number] Pending Review Perform Procedure 08/29/2024 1 1 Reason Comments Follow-up 8 week Specialty Diagnoses / Procedures Referred By Contac t Referred To Contact Cardiology Diagnoses Permanent atrial fibrillation (CMS/HCC) Ischemic cardiomyopathy Procedures Follow Up In Cardiology Rosemary Cartagena MD 254 [facility] [address] [place] [address] Rosemary Cartagena MD [address] [place] [address] Sukhwinder [address] [place] [address] Referral ID Status Reason Start Date Expiration Date V isits Requested Visits Authorized [id number] Authorized 08/30/2023 08/29/2024 1 1 Reason Comments Follow-up 6 week per GM Specialty Diagnoses / Procedures Referred By Contac t Referred To Contact Cardiology Diagnoses Permanent atrial fibrillation (CMS/HCC) Ischemic cardiomyopathy ICD (implantable cardioverter-defibrillator) in place 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 Procedures Follow Up In Cardiology Rosemary Cartagena MD 254 [facility] [address] [place] [address] [facility], 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 [address] [facility] 2, [facility] [address] [place] [address] Referral ID Status Reason Start Date Expiration Date V isits Requested Visits Authorized [id number] Authorized 10/25/2023 10/24/2024 1 1 Reason Comments Follow-up 2w Specialty Diagnoses / Procedures Referred By Contac t Referred To Contact Cardiology Diagnoses Ischemic cardiomyopathy Procedures Follow Up In Cardiology [facility], 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 [address] [facility] 2, [facility] [address] [place] [address] Referral ID Status Reason Start Date Expiration Date V isits Requested Visits Authorized [id number] Authorized 12/06/2023 12/05/2024 1 1 Reason Comments Back Pain Memory Loss Reason Comments Back Pain Parkinson's Disease Reason Comments Follow-up 3 month Specialty Diagnoses / Procedures Referred By Contac t Referred To Contact Cardiology Diagnoses Congestive heart failure, NYHA class 3, chronic, systolic Procedures Follow Up In Cardiology Rosemary Cartagena MD [address] [address] Phone: tel: fax: Rosemary Cartagena MD [address] [place] [address] Phone: tel: fax: Referral ID Status Reason Start Date Expiration Date V isits Requested Visits Authorized [id number] Authorized 04/24/2024 04/24/2025 1 1 Reason Comments Follow-up 4m with sp Specialty Diagnoses / Procedures Referred By Contac t Referred To Contact Cardiology Diagnoses Permanent atrial fibrillation (Multi) Ischemic cardiomyopathy ICD (implantable cardioverter-defibrillator) in place 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 Procedures Follow Up In Cardiology Rosemary Cartagena MD [address] [address] Rosemary Cartagena MD [address] [address] Referral ID Status Reason Start Date Expiration Date V isits Requested Visits Authorized [id number] Authorized 10/25/2023 10/24/2024 1 1 Reason Comments Follow-up Symptoms Care Teams (unrecognized sec tion and content) Team Status: Active Member Role Status Dates Shanique Anderson DO Primary Care Provider Active Team Status: Inactive Member Role Status Dates Shanique Anderson DO Primary Care Provider, Attending Hilary rockwell Active Plc Engineer Relationship Specialty Start Date End Date Shanique Anderson, DO [address] [place] [address] PCP - General Family Medicine 08/30/23 Team Status: Inactive Member Role Status Dates Shanique Anderson DO Primary Care Provider Active Rosemary Cartagena MD Attending Provider Active Plc Engineer Relationship Specialty Start Date End Date Shanique Anderson, DO [address] [place] [address] PCP - General Family Medicine 08/30/23 Plc Engineer Relationship Specialty Start Date End Date Shanique Anderson DO [address] [place] [address] PCP - General Family Medicine 08/30/23 Team Status: Inactive Member Role Status Dates Shanique Anderson DO Primary Care Provider Active Start: December 03, 2023 End: December 03, 2023 Rosemary Cartagena MD Attending Provider Active Star t: December 03, 2023 End: December 03, 2023 Plc Engineer Relationship Specialty Start Date End Date Shanique Anderson DO [address] [place] [address] PCP - General Family Medicine 08/30/23 Plc Engineer Relationship Specialty Start Date End Date Shanique Anderson DO [address] [place] [address] PCP - [facility] Medicine 08/30/23 Team Status: Inactive Member [...] June 07, 2024 End: June 07, 2024 Plc Engineer Relationship Specialty Start Date End Date Unallocated, William Vaughan MD [address] [place] [place] [address] PCP - General Family Medicine 12/06/23 Viky Rollins PA [address] [place] [address] Physician Manager Statistics Neurology 12/06/23 Plc Engineer Relationship Specialty Start Date End Date Unallocated, William Vaughan MD [address] [place] [address] PCP - General Family Medicine 12/06/23 Viky Rollins PA [address] [place] [address] Physician Manager Statistics Neurology 12/06/23 Team Status: Active Member Role Status Dates Shanique Anderson DO Primary Care Provider Active Start: June 07, 2024 Rosemary Cartagena MD Other Provider Active Start: [facility] Tex Carranza MD Attending Provider Active Start: June 07, 2024 Team Status: Inactive Member Role Status Dates Shanique Anderson DO Primary Care Provider Active Start: June 29, 2024 End: June 29, 2024 Viky Rollins PA-C Attending Provider Active Sta rt: June 29, 2024 End: June 29, 2024 Plc Engineer Relationship Specialty Start Date End Date Unallocated, William Vaughan MD [address] [place] [address] PCP - General Family Medicine 12/06/23 Viky Rollins PA [address] [place] [address] Physician Manager Statistics Neurology 12/06/23 Plc Engineer Relationship Specialty Start Date End Date Unallocated, William Vaughan MD [address] [place] [address] PCP - General Family Medicine 12/06/23 Viky Rollins PA [address] [address] Physician Manager Statistics Neurology 12/06/23 Plc Engineer Relationship Specialty Start Date End Date Shanique Anderson DO [address] [place] [address] PCP - General Family Medicine 08/30/23 Plc Engineer Relationship Specialty Start Date End Date Shanique Anderson MD [address] [place] [id number] PCP - General Family Medicine 08/24/24 Viky Rollins PA [address] [place] [id number] Physician Manager Statistics Neurology 12/06/23 Plc Engineer Relationship Specialty Start Date End Date Shanique Anderson DO [address] [place] [address] PCP - General Family Medicine 08/30/23 Plc Engineer Relationship Specialty Start Date End Date Shanique Anderson MD [address] [place] [phone] PCP - General Family Medicine 08/24/24 Viky Rollins PA [address] [address] Physician Manager Statistics Neurology 12/06/23 Plc Engineer Relationship Specialty Start Date End Date Shanique Anderson DO [address] [place] [address] PCP - General Family Medicine 08/30/23 Plc Engineer Relationship Specialty Start Date End Date Shanique Anderson DO [address] [place] [address] PCP - General Family Medicine 08/30/23 Goals [...] BE BASED ON THE PRIMARY CLINICAL RECORDS. [facility] [employer] [facility]. provides no warranty or guarantee of the accuracy or completeness of information in this document.
[2024-10-13 13:06] LABS: Alanine Aminotransferase 68 U/L (16-63); Albumin Level 3.5 g/dL (3.4-5.0); Alkaline Phosphatase 118 U/L (46-116); Anion Gap 12.1; Aspartate Amino Transferase 81 U/L (15-37); BUN Creatinine Ratio 29.9; Bilirubin Total 0.8 mg/dL (0.2-1.0); Calcium 9.1 mg/dL (8.5-10.1); Carbon Dioxide 31.6 mmol/L (21.0-32.0); Chloride 103 mmol/L (98-107); Chol HDL Ratio 2.3; Cholesterol 100 mg/dL (<=200); Estimated GFR (African America 46 (>=60 mL/min/1.73m^2); Estimated GFR (Non-African Ame 38 (>=60 mL/min/1.73m^2); Globulin 3.4 g/dL; Glucose 130 mg/dL (74-106); HDL Cholesterol 43 mg/dL (40-60); Potassium 4.7 mmol/L (3.5-5.1); Sodium 142 mmol/L (136-145); Total Protein 6.9 g/dL (6.4-8.2); Triglycerides 162 mg/dL (<=150); VLDL CHOLESTEROL 32.4 mg/dL
== END 2024-10-13 12:18 | disposition home or self-care (01) ==
LOC: LAB 12:18
PROVIDERS: PCP Family Medicine; Visit Provider Internal Medicine Interventional Cardiology
DX: I48.91 Unspecified atrial fibrillation (principal); I25.10 Atherosclerotic heart disease of native coronary artery without angina pectoris; I10 Essential (primary) hypertension
CPT/HCPCS: 36415; 80053; 80061; 85025

== ENCOUNTER 2025-01-10 13:03 | Outpatient (RCR) | payer MEDICARE, OTHER, SELFPAY | END 2025-01-11 13:40 | disposition home or self-care (01) | LOC: ST 13:03 | PROVIDERS: PCP Family Medicine; Visit Provider Physician Assistant Medical | DX: G20.C Parkinsonism, unspecified (principal); I69.922 Dysarthria following unspecified cerebrovascular disease; R49.0 Dysphonia | CPT/HCPCS: 92507; 92524 ==

== ENCOUNTER 2025-02-10 12:42 | Outpatient (OUT) | payer MEDICARE, OTHER, SELFPAY ==
--- OUTSIDE RECORDS SUMMARY | 2013-09-28 13:27 | XMS_ITS | Encounter Summary ---
Author Organization [facility] Address [address] [place] [address] Care Team Providers Care Ductfixing Plumber Name Role Phone Candida Bhakta MD Primary Care Provider [phone] Encounter Details Date Type Department Care Team (Late st Contact Info) Description 09/28/2013 12:27 PM EST Hospital Encounter STV Pre-Admit Testing [address] [place] [id number] Jay Vergara MD Social History Tobacco Use Types Packs/Day Years Used Date Smoking Tobacco: Former Cigarettes 0.5 53 1 959 - 09/13/2011 Smokeless Tobacco: Former Chew Comments:quit x 5 year Alcohol Use Standard Drinks/Week Comments No 0 (1 standard drink = 0.6 oz pur e alcohol) Sex and Gender Information Value Date Recorded Sex Assigned at Not on file Legal Sex Male 8:27 PM EST Gender Identity Not on file Sexual Orientation Not on file COVID-19 Exposure Response Date Recorded In the last month, have you been in contact with someone who was confirmed or suspected to have Coronavirus / COVID-19? No / Unsure 10/08/2021 4:16 PM EST documented as of this encounter Last Filed Vital Signs Vital Sign Reading Time Taken Comments Blood Pressure 121/71 09/28/2013 12:57 PM EST Pulse 88 09/28/2013 12:57 PM EST Temperature 36.4 C (97.5 F) 09/28/2013 12:57 PM EST Respiratory Rate 16 09/28/2013 12:57 PM EST Oxygen Saturation - - Inhaled Oxygen Concentration - - Weight 88.5 kg (195 lb) 09/28/2013 12:57 PM EST Height 170.2 cm (5' 7 ) 09/28/2013 12:57 PM EST Body Mass Index 30.54 09/28/2013 12:57 PM EST documented in this encounter Progress Notes * Bharathi Echeverria PA - 09/28/2013 2:59 PM EST Anesthesia Focused Assessment Obstructive Sleep Apnea: yes If YES, machine used: yes, bipap Type 1 DM: no T2DM: yes Coronary Artery Disease: Yes, s/p CABG 2 vessel Hypertension: yes Active smoker: no Drinks Alcohol: occasionally Dentition: no dentures/implants. Defib / AICD / Pacemaker: yes Renal Failure/dialysis: no Patient was evaluated in PAT & anesthesia guidelines were applied. NPO guidelines, medication instructions and scheduled arrival time were reviewed with patient. Hx of anesthesia complications: no Family hx of anesthesia complications: no Anesthesia contacted: no Medical or cardiac clearance ordered: clearance has already been requested by surgeon. BHARATHI ECHEVERRIA PA-C 09/28/2013 2:59 PM documented in this encounter Plan of Treatment Not on file documented as of this encounter Procedures Procedure Name Priority Date/Time Associated Diagnosis Comments LAB BLOOD TRANSFUSION REPORT 10/26/2013 6:54 PM EST URINE CULTURE CLEAN CATCH Routine 09/28/2013 4:32 PM EST URINALYSIS Routine 09/28/2013 4:32 PM EST MRSA DNA PROBE, NASAL Routine 09/28/2013 3:48 PM EST APTT Routine 09/28/2013 2:44 PM EST PROTIME-INR Routine 09/28/2013 2:44 PM EST CBC Routine 09/28/2013 2:44 PM EST COMPREHENSIVE METABOLIC PANEL Routine 09/28/2013 2:44 PM EST EKG 12-LEAD Routine 09/28/2013 1:37 PM EST XR CHEST (2 VW) Routine 09/28/2013 12:46 PM EST TYPE AND SCREEN Routine 09/28/2013 12:45 PM EST documented in this encounter Results * LAB BLOOD TRANSFUSION REPORT (10/26/2013 6:54 PM EST) Narrative Procedure Note SCANNING, [facility] - 10/26/2013 6:54 PM EST [facility] Scanning BLOOD BANK PRODUCT ORDERABLES Fi nal Result * Urine culture clean catch (09/28/2013 4:32 PM EST) Specimen CLEAN CATCH URINE 09/28/2013 4:32 PM EST PN LAB Special Requests NOT REPORTED 09/28/2013 4:32 PM EST PN LAB Culture NO GROWTH 09/29/2013 10:[address] [facility] Culture [facility] [employer] [address] [place] [address] 09/29/2013 10:51 PM EST PN LAB Status FINAL 09/29/2013 09/29/19 14 10:[address] [facility] 09/28/2013 4:32 PM EST 09/28/2013 4:32 PM EST us Jay Vergara MD MICROBIOLOGY - GENERAL ORD ERABLES Final Result [employer] [address] [place] [address], [facility] [phone] [facility] * Urinalysis (09/28/2013 4:32 PM EST) Color, UA YELLOW YEL 09/28/2013 9:17 PM EST [facility] Turbidity UA CLEAR CLEAR 09/28/2013 9:17 PM EST [facility] Glucose, Ur NEGATIVE NEG 09/28/2013 9:17 PM EST PN LAB Bilirubin Urine NEGATIVE NEG 4 9:17 PM EST [facility] Ketones, Urine NEGATIVE NEG 09/28/2013 9:[address] [facility] Specific [place], UA 1.017 1.005 - 1.030 09/28/2013 9:17 PM EST PN LAB Urine Hgb NEGATIVE NEG 09/28/2013 9:[address] [facility] pH, UA 5.0 5.0 - 8.0 09/28/2013 9:17 PM EST PN LAB Protein, UA NEGATIVE NEG 09/28/2013 9:[address] [facility] Urobilinogen, Urine Normal NORM 09/28/2013 9:17 PM EST PN LAB Nitrite, Urine NEGATIVE NEG 09/28/2013 9:[address] [facility] Leukocyte Esterase, Urine NEGATIVE NEG 09/28/2013 9:[address] [facility] Urinalysis Comments Microscopic exam not performed based on chemical results unless requested in 09/28/2013 9:[address] [facility] Comment: original order. DNP [employer] [address] [place] [address] 09/28/2013 4:32 PM EST 09/28/2013 4:32 PM EST us Jay Vergara MD URINE ORDERABLES Final Res ult [employer] [address] [place] [address], [facility] [phone] [facility] * MRSA DNA Probe (09/28/2013 3:48 PM EST) Specimen NASAL SWAB 09/28/2013 3:[address] [facility] Special Requests NOT REPORTED 09/28/2013 3:[address] [facility] Direct Exam NEGATIVE: MRSA DNA not detected by nucleic acid amplification. 09/28/2013 11:01 PM EST PN LAB Direct Exam Results should be used as an adjunct to 09/28/2013 11:01 PM EST PN LAB Direct Exam nosocomial control efforts to identify patients needing enhanced precautions. 09/28/2013 11:[address] [facility] Direct Exam The test is not intended to identify patients with staphylococcal infections. 09/28/2013 11:01 PM EST PN LAB Direct Exam Results should not be used to guide or monitor treatment for MRSA infections. 09/28/2013 11:01 PM EST [facility] Direct Exam [address] [address] 09/28/2013 11:[address] [facility] Status FINAL 09/28/2013 09/28/19 14 11:[address] [facility] 09/28/2013 3:48 PM EST 09/28/2013 3:48 PM EST Jay Vergara MD MICROBIOLOGY - GENERAL ORD ERABLES Final Result Performing Organization Address [facility]/ZIP Co de Phone Number [address] [address], [facility] [phone] [facility] * (ABNORMAL) Protime-INR (09/28/2013 2:44 PM EST) Protime 25.2(H) 9.4 - 12.6 sec 09/28/2013 3:[address] [facility] INR 2.4 09/28/2013 3:[address] [facility] Comment: Therapeutic Range: Moderate Anticoagulant Intensity: INR = 2.0-3.0 High Anticoagulant Intensity: INR = 2.5-3.[address] [id number] BLOOD SPECIMEN / Unknown 09/28/2013 2:44 PM EST 09/28/2013 2:44 PM EST Jay Vergara MD HEMATOLOGY ORDERABLES Laurel l Result Performing Organization Address City/[facility]/ZIP Co de Phone Number [address] [address], [facility] [phone] [facility] * (ABNORMAL) APTT (09/28/2013 2:44 PM EST) APTT 32.4(H) 21.3 - 31.3 sec 09/28/2013 3:[address] [facility] Comment:[facility] [employer] [address] [place] [address] BLOOD SPECIMEN / Unknown 09/28/2013 2:44 PM EST 09/28/2013 2:44 PM EST us Jay Vergara MD HEMATOLOGY ORDERABLES Laurel quick Result [address] [place] [address], [facility] [phone] [facility] * (ABNORMAL) Comprehensive metabolic panel (09/28/2013 2:44 PM EST) [facility] Glucose 99 74 - 106 mg/dL 09/28/2013 3:[address] [facility] BUN 22(H) 6 - 20 mg/dL 09/28/2013 3:[address] [facility] Creatinine 1.13 0.6 - 1.4 mg/dL 09/28/2013 3:[address] [facility] BUN/Creatinine Ratio NOT REPORTED 9 - 20 [facility] Calcium 9.0 8.6 - 10.4 mg/dL 09/28/2013 3:[address] [facility] Sodium 141 136 - 145 mmol/L 09/28/2013 3:[address] [facility] Potassium 3.9 3.5 - 5.1 mmol/L 09/28/2013 3:[address] [facility] Chloride 104 98 - 110 mmol/L 09/28/2013 3:[address] [facility] CO2 30 20 - 31 mmol/L 09/28/2013 3:[address] [facility] Anion Gap 11 8 - 16 mmol/L 09/28/2013 3:[address] [facility] Alkaline Phosphatase 74 25 - 100 U/L 09/28/2013 3:[address] [facility] ALT 19 4 - 40 U/L 09/28/2013 3:[address] [facility] AST 26 8 - 36 U/L 09/28/2013 3:[address] [facility] Total Bilirubin 0.38 0.3 - 1.2 mg/dL 09/28/2013 3:[address] [facility] Total Protein 7.0 6.4 - 8.3 g/dL 09/28/2013 3:[address] [facility] Albumin 4.2 3.4 - 4.8 g/dL 09/28/2013 3:[address] [facility] Albumin/Globulin Ratio 1.5 1.0 - 2.7 09/28/2013 3:20 PM EST PN LAB GFR Non- >60 >60 mL/min 09/28/2013 3:20 PM EST PN LAB GFR >60 >60 mL/min 09/28/2013 3:20 PM EST PN LAB GFR Comment 09/28/2013 3:20 PM EST PN LAB Comment: Average GFR for 70 or more years old: 75 mL/min/1.73sq m Chronic Kidney Disease: <60 mL/min/1.73sq m Kidney failure: <15 mL/min/1.73sq m GFR is a calculated value that has proven clinically to be a more effective measure of kidney function when reported with serum creatinine. [facility] [employer] [address] [place] [phone] GFR Staging NOT REPORTED [facility] [employer] BLOOD SPECIMEN / Unknown 09/28/2013 2:44 PM EST 09/28/2013 2:44 PM EST Jay Vergara MD CHEMISTRY ORDERABLES Final Result [facility] [employer] [address] [place], [place] [id number], [facility] [phone] [facility] * (ABNORMAL) CBC (09/28/2013 2:44 PM EST) WBC 6.9 3.5 - 11.0 k/uL 09/28/2013 2:[address] [facility] RBC 3.90(L) 4.5 - 5.9 m/uL 09/28/2013 2:[address] [facility] Hemoglobin 13.3(L) 13.5 - 17.5 g/dL 09/28/2013 2:[address] [facility] Hematocrit 38.7(L) 41 - 53 % 09/28/2013 2:[address] [facility] MCV 99.1 80 - 100 fL 09/28/2013 2:[address] [facility] MCH 34.1(H) 26 - 34 pg 09/28/2013 2:[address] [facility] MCHC 34.4 31 - 37 g/dL 09/28/2013 2:52 PM EST [facility] RDW 14.4 12.5 - 15.4 % 09/28/2013 2:52 PM EST PN LAB Platelets 221 140 - 450 k/uL 09/28/2013 2:52 PM EST PN LAB MPV 8.1 6.0 - 12.0 fL 09/28/2013 2:52 PM EST PN LAB Comment:[employer] [address] [place] [address] 09/28/2013 2:44 PM EST 09/28/2013 2:44 PM EST us Jay Vergara MD HEMATOLOGY ORDERABLES Laurel l Result Performing Organization Address [facility] Co de Phone Number [employer] [address] [id number], [facility] [phone] [facility] * EKG 12 Lead (09/28/2013 1:37 PM EST) Ventricular Rate 79 BPM [facility] Atrial Rate 187 BPM [facility] QRS Duration 94 ms [facility] Q-T Interval 358 ms [facility] QTc Calculation (Bazett) 410 ms [facility] M[facility] R [place] 12 degrees [facility] T [place] -35 degrees [facility] MUSE 09/28/2013 1:37 PM EST Narrative [facility] - 09/29/2013 12:59 PM EST Demand pacemaker; interpretation is based on intrinsic rhythmAtrial fibrillation with premature ventricular or aberrantly conducted complexesInferior infarct , age undeterminedAbnormal ECGWhen compared with ECG of 12-MAY-2007 05:37,Atrial fibrillation has replaced Electronic ventricular pacemaker Procedure Note 09/29/2013 Demand pacemaker; interpretation is based on intrinsic rhythmAtrialfibrillation with premature ventricular or aberrantly conductedcomplexesInferior infarct , age undeterminedAbnormal ECGWhen compared withECG of 12-MAY-2007 05:37,Atrial fibrillation has replaced Electronicventricular pacemaker us Jay Vergara MD ECG ORDERABLES Final Resu lt [facility] * XR Chest Standard TWO VW (09/28/2013 12:46 PM EST) Anatomical Region Laterality Modality Chest Radiographic Angeline ging 09/28/2013 12:4 6 PM EST Narrative 09/28/2013 1:05 PM EST FINAL Procedure: PAT Sep 28 2013 12:46PM [id number] CHEST PA AND LATERAL Reason for Exam: ^preop knee arthroplasty FULL RESULT: Chest 2 views Comparison: 05/25/2006 Cardiothoracic ratio is normal. Sternal wire sutures are in place. Left-sided bipolar pacemaker is in place. No acute parenchymal infiltrate, edema, effusion or pneumothorax. 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 IMPRESSION: No acute cardiopulmonary disease. Report Transcribed by: [facility] on Sep 28 2013 1:05P Read by: GLORIA SALVADOR M.D. [id number] on Sep 28 2013 1:05P Electronically Signed by: DR. GLORIA SALVADOR M.D. on: Sep 28 2013 1:05P Procedure Note Gloria Salvador MD - 09/28/2013 FINAL Procedure: PAT Sep 28 2013 12:46PM [id number] CHEST PA AND LATERAL Reason for Exam: ^preop knee arthroplasty FULL RESULT: Chest 2 views Comparison: 05/25/2006 Cardiothoracic ratio is normal. Sternal wire sutures are in place. Left-sided bipolar pacemaker is in place. No acute parenchymal infiltrate, edema, effusion or pneumothorax. 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 IMPRESSION: No acute cardiopulmonary disease. Report Transcribed by: [facility] on Sep 28 2013 1:05P Read by: GLORIA SALVADOR M.D. [id number] on Sep 28 2013 1:05P Electronically Signed by: DR. GLORIA SALVADOR M.D. on: Sep 28 2013 1:05P Jay Vergara MD IMG DIAGNOSTIC IMAGING ORD ERABLES Edited Result - Final * TYPE AND SCREEN (09/28/2013 12:45 PM EST) Expiration Date 10/06/2013 4 3:20 PM EST [facility] Arm Band Number [id number] 4 3:20 PM EST [facility] ABO/Rh A POSITIVE 09/28/2013 3:20 PM EST [facility] Antibody Screen NEGATIVE 4 3:37 PM EST [facility] . [employer] Unit Number [id number] SVT 10/06/2013 9:51 AM EST [facility] Product Code Leukocyte Reduced Red Cell 10/06/2013 9:51 AM EST [facility] Unit Divison 0 10/06/2013 9:51 AM EST [facility] Dispense Status TRANSFUSED 4 8:36 AM EST [facility] Transfusion Status OK TO TRANSFUSE 10/06/2013 9:51 AM EST [facility] Crossmatch Result COMPATIBLE 10/06/2013 9:51 AM EST [facility] Comment: Performed at [facility] [address] [place] [address] . [employer] Unit Number [id number] SVT 10/06/2013 9:51 AM EST [facility] Product Code Leukocyte Reduced Red Cell 10/06/2013 9:51 AM EST [facility] Unit Divison 0 10/06/2013 9:51 AM EST [facility] Dispense Status TRANSFUSED 4 8:36 AM EST [facility] Transfusion Status OK TO TRANSFUSE 10/06/2013 9:51 AM EST [facility] Crossmatch Result COMPATIBLE 10/06/2013 9:51 AM EST [facility] BLOOD SPECIMEN / Unknown 09/28/2013 12:45 PM EST 09/28/2013 3:20 PM EST us Jay Vergara MD BLOOD BANK TEST ORDERABLES Final Result [facility] [employer] [address] [place] [address], [facility] [phone] [facility] documented in this encounter Visit Diagnoses Not on filedocumented in this encounter Care Teams Ductfixing Plumber Relationship Specialty Start Date End Date Candida Bhakta MD PCP - General 02/04/12 07/26/16 documented as of this encounter
--- OUTSIDE RECORDS SUMMARY | 2024-03-07 07:00 | XMS_ITS | Encounter Summary ---
Author Name [facility] [facility] [place] Address [address] [place] [id number] Care Team Providers Care Sales Program Manager Name Role Phone TOMASA VAIL Primary [facility] Providers: All historical and current Section Date Range: From patient's date of to the date document was created. This section includes the names of all active insurance providers for the patient. Insurance Provider Type of Coverage Plan Name Start of Policy Coverage End of Policy Coverage Group Number Member ID Insurance Provider's Telephone Number Policy Holman's Name Patient's Relationship to Policy Holman MEDICARE (WNR) MEDICARE (M) PART B Dec 13, 2007 PART B [id number] PATRICEDiego SUNSHINES PATIENT MEDICARE (WNR) MEDICARE (M) PART A Dec 13, 2007 PART A [id number] [id number] PATRICE,Diego HOMAS PATIENT MEDICARE (WNR) MEDICARE () PART A Dec 13, 2007 PART A [id number] PATRICE,Diego HOMAS PATIENT MEDICARE (WNR) MEDICARE (M) PART B Dec 13, 2007 PART B [id number] PATRICEDiegoS PATIENT [facility] 2024 TRICA RE SELEC T Sep 13, 2024 [facility] [id number] Diego IBRAHIMS PATIENT -FO R-LIFE [facility] LIFE Sep 15, 2024 TFL [id number] Diego IBRAHIM PATIENT Selected Encounter This section includes the information on record at [place] for the Encounter. Date/Time Encounter Type Encounter Description Reason Provider Source Mar 07, 2024 11:00 AM DEBRIDE NAIL 6 OR MORE PODIATRY ICD-10-CM B35.1 Tinea unguium NEL GASPAR Encounter Template Text not used by [place] Assessments - Encounter Diagnoses This section includes the primary and secondary diagnoses documented for the Encounter. Date/Time Primary/Secondary Diagnosis Diagnosis Name Provider Source Mar 07, 2024 11:43 AM PRIMARY Tinea unguium NEL GASPAR CBAMERICO Mar 07, 2024 11:43 AM SECONDARY Type 2 diabetes mellitus without complications NEL GASPAR Plan of Treatment: Future Appointments (+ 6 months) and Future Tests (+/- 45 days) The Plan of Treatment section includes future care activities for the patient from all [place] treatmentfacilities. This section includes future appointments and future orders which are active, pending or scheduled. Future Appointments This section includes appointments that were scheduled to occur 6 months from the date of the Encounter, up to a maximum of 20 appointments. The data comes from all [place] treatment facilities. Appointment Date/Time Appointment Type Appointme nt Facility Name Mar 13, 2024 03:00 PM [facility]ORY [facility] NONE [facility] Mar 13, 2024 03:30 PM AMBULATORY - NONE [facility] Mar 29, 2024 01:00 PM AMBULATORY - NONE [facility] Apr 25, 2024 01:30 PM AMBULATORY - NONE [facility] Apr 27, 2024 11:00 AM AMBULATORY - NONE [facility] May 04, 2024 11:30 AM AMBULATORY - NONE [facility] May 08, 2024 02:00 PM AMBULATORY - NONE [facility] Jun 13, 2024 10:30 AM AMBULATORY - SURGERY [facility] Jun 16, 2024 01:30 PM AMBULATORY - NONE [facility] Aug 17, 2024 11:15 AM AMBULATORY - NONE [facility] Aug 17, 2024 11:30 AM AMBULATORY - NONE [facility] Aug 24, 2024 10:30 AM AMBULATORY - NONE [facility] Aug 31, 2024 02:30 PM AMBULATORY - SURGERY [facility] Lab Results: +/- 30 days of the encounter This section includes the Chemistry and Hematology Lab Results on record with [facility] for the patient. Radiology Reports and Pathology Reports are provided separately, in subsequent sections. Lab Results This section contains the Chemistry/Hematology Results that were resulted 30 days before or 30 daysafter the date of the Encounter. Date/Time Source Result Type Result - Unit Interpretation Reference Range Specimen Type Comment Mar 07, 2024 11:35 AM [facility] VITAMIN D (TOTAL) SERUM Specimen Type: SERUM No comment entered. Ordering Provider: TOMASA VAIL Report Released Date/Time: Feb 18, 2024 04:01 PM Reporting Lab: [place] [id number] Performing Lab: [place] [id number] VITAMIN D (TOTAL) 47.00 ng/mL 30-75 Mar 07, 2024 11:35 AM [facility] HEMOGLOBIN A1C BLOOD Specimen Type: B LOOD Comment: Values obtained from A1C measurements can vary. For typical A1C assays, a reported value of 7.0 could actually be between 6.72 and 7.28 if measured by a reference method. A reported value of 9.0 could actually be between 8.73 and 9.27. Ref: http://www.ngsp.org/CAPdata.asp Ordering Provider: TOMASA VAIL Report Released Date/Time: Feb 18, 2024 04:01 PM Reporting Lab: [address] [phone] Performing Lab: [address] [phone] HEMOGLOBIN A1C 7.7 H 3.6-5.7 Mar 07, 2024 11:35 AM [facility] LIPID PROFILE PLASMA Specimen Type: PLASMA Comment: CREATININE eGFR was calculated using the CKD-EPI 2020 equation. TRIGLYCERIDE REF RANGE: NORMAL <150 mg/dL BORDERLINE HIGH: 150-199 TRIGLYCERIDE mg/dL HIGH: 200-499 mg/dL VERY HIGH: >=500 mg/dL Ordering Provider: TOMASA VAIL Report Released Date/Time: Feb 18, 2024 04:01 PM Reporting Lab: [address] [phone] Performing Lab: [place] [id number] CHOLESTEROL 161 mg/dL 135-200 LDL CHOLESTEROL 48.0 mg/dL 0-110 HDL CHOLESTEROL 24 mg/dL L 40-60 TRIGLYCERIDE 677 mg/dL H 0-149 Mar 07, 2024 11:35 AM [facility] COMPREHENSIVE METABOLIC PANEL PLASMA S pecimen Type: PLASMA Comment: CREATININE eGFR was calculated using the CKD-EPI 2020 equation. TRIGLYCERIDE REF RANGE: NORMAL <150 mg/dL BORDERLINE HIGH: 150-199 TRIGLYCERIDE mg/dL HIGH: 200-499 mg/dL VERY HIGH: >=500 mg/dL Ordering Provider: TOMASA VAIL Report Released Date/Time: Feb 18, 2024 04:01 PM Reporting Lab: [address] [phone] Performing Lab: [address] [phone] ALBUMIN 3.6 g/dL 3.2-4.8 ALKALINE PHOSPHATASE 77 U/L 46-116 ALT/SGPT <7 U/L L 10-45 AST/SGOT 18 U/L 0-33.9 BUN 28 mg/dL H 9-23 CALCIUM 9.1 mg/dL 8.7-10.4 CREATININE 1.5 mg/dL H 0.70-1.30 CO2 29 mmol/L 21-32 GLUCOSE 155 mg/dL H 74-106 PROTEIN, TOTAL 6.4 g/dL 6.4-8.5 SODIUM 139 mmol/L 136-148 CHLORIDE 105 mmol/L 98-107 BILIRUBIN, TOTAL 0.4 mg/dL 0.3-1.2 POTASSIUM 4.8 mmol/L 3.5-5.1 ANION GAP 9.8 mmol/L L 10-20 EGFR (CALCULATED) 46 mL/min Mar 07, 2024 11:35 AM [facility] CBC BLOOD Specimen Type: BLOOD No comment entered. Ordering Provider: TOMASA VAIL Report Released Date/Time: Feb 18, 2024 04:01 PM Reporting Lab: [address] [phone] Performing Lab: [address] [phone] WBC COUNT 5.7 10*3/uL 3.6-11.0 RBC COUNT 3.48 10*6/uL L 4.47-5.83 HGB 12.0 g/dL L 13.6-17.4 HCT 34.6 L 40.0-51.0 MCV 99.6 fL H 80.0-96.0 MCH 34.4 pg H 27.0-31.0 MCHC 34.5 g/dL 31.5-36.5 PLT 161 10*3/uL 150-400 LYMPHS % 18.5 L 21.0-51.0 MONOCYTES % 11.4 H 4.0-8.0 NUCLEATED RBC/100WBC 0.0 /100{WBCs} None Established-None Established RDW 13.0 11.2-15.8 NEUTROPHIL % 67.7 54.0-78.0 EOSINOPHIL % 1.8 0.0-3.0 BASOPHIL % 0.6 0.0-3.0 ABSOLUTE LYMPHOCYTE COUNT 1.1 10*3/uL 0. 8-5.0 ABSOLUTE NEUTROPHIL COUNT 3.9 10*3/uL 1. 9-8.6 ABSOLUTE BASOPHIL COUNT 0.0 10*3/uL 0.0- 0.3 ABSOLUTE MONOCYTE COUNT 0.7 10*3/uL 0.1- 0.9 ABSOLUTE EOSINOPHIL COUNT 0.1 10*3/uL 0. 0-0.3 MPV 8.6 fL 7.4-11.4 Mar 07, 2024 11:35 AM [facility] DIABETIC URINALYSIS PANEL URINE Speci men Type: URINE No comment entered. Ordering Provider: TOMASA VAIL Report Released Date/Time: Feb 18, 2024 04:01 PM Reporting Lab: [address] [phone] Performing Lab: [address] [phone] SPECIFIC GRAVITY 1.012 L 1.016-1.022 URINE GLUCOSE Negative mg/dL Negative URINE PROTEIN Negative mg/dL Negative URINE PH 5.5 5.0-8.0 WBC/HPF 18 /[HPF] H <=4 URINE BACTERIA Rare H Negative RBC/HPF 2 /[HPF] <=4 NITRITE, URINE Negative Negative ESTERASE(WBC) 500 H Negative URINE CLARITY Clear Clear URINE MUCUS Present H Negative URINE BILIRUBIN Negative mg/dL <=0.4 URINE BLOOD Negative mg/dL <0.05 UROBILINOGEN Negative mg/dL <=1 URINE KETONES Negative mg/dL <=9 URINE COLOR Light-Yellow MICROALBUMIN, URINE RANDOM 1.4 mg/dL 0-1 0 CREATININE, URINE RANDOM 72.40 mg/dL MICROALB/CREAT RATIO 19.3 mg/g 0.0-19.9 Social History: Smoking Status (Most current) and Tobacco Use (All prior to encounter date) This section includes the most current, and the historical, smoking and tobacco- related health factors from the [place] facility where the Encounter took place. Current Smoking Status This section includes the most current smoking, or tobacco-related health factor, from the [place] facility where the Encounter took place. Date/Time Current Smoking Status Comment Facil ity Mar 02, 2023 03:30 PM [facility]-TOBACCO FORMER USER [facility] Tobacco Use History This section includes a history of the smoking, or tobacco-related health factors, that were collected on or before the date of the Encounter. The data comes from the [place] facility where the Encounter took place. Date/Time Smoking Status/Tobacco Use Comment F acility Mar 02, 2023 03:30 PM VA-TOBACCO QUIT 15 YRS OR MORE [facility] January 13, 2022 02:30 PM VA-TOBACCO FORMER USER [facility] January 13, 2022 02:30 PM VA-TOBACCO QUIT 5 TO < 15 YRS [facility] Jan 02, 2021 01:30 PM VA-TOBACCO FORMER USER [facility] Jan 02, 2021 01:30 PM VA-TOBACCO QUIT 15 YRS OR MORE [facility] Jul 27, 2019 01:37 PM VA-TOBACCO FORMER USER [facility] Jul 27, 2019 01:37 PM VA-TOBACCO QUIT 15 YRS OR MORE [facility] Dec 28, 2017 02:13 PM VA-TOBACCO FORMER USER [facility] Dec 28, 2017 02:13 PM VA-TOBACCO QUIT 15 YRS OR MORE [facility] May 13, 2017 01:15 PM QUIT TOBACCO >7 YEARS AGO [facility] May 29, 2016 02:48 PM QUIT TOBACCO >12 MO & <7 YRS AGO [facility] Mar 05, 2015 01:09 PM QUIT TOBACCO >12 MO & <7 YRS AGO [facility] January 23, 2014 01:32 PM QUIT TOBACCO IN THE LAST 12 [place] [facility] Nov 01, 2012 01:15 PM QUIT TOBACCO >12 MO & <7 YRS AGO [facility] Aug 14, 2011 01:29 PM QUIT TOBACCO >12 MO & <7 YRS AGO [facility] Nov 11, 2010 01:57 PM QUIT TOBACCO >12 MO & <7 YRS AGO [facility] Dec 16, 2009 09:26 AM QUIT TOBACCO IN THE LAST 12 [place] [facility] Advance Directives: All historical and current Section Date Range: From patient's date of to the date document was created. This section includes ALL of a patient's completed or amended [facility] Advance and Rescinded Directives. The entries below indicate that a directive exists for the patient, but an actual copy is not included with this document. The data comes from all [place] facilities. Date Advance Directives Provider Source Dec 21, 2023 ADVANCE DIRECTIVE DISCUSSION [facility] Encounter Notes: All associated encounter notes This section contains the clinical notes associated to the Encounter. Date/Time Encounter Note(s) Provider Source Mar 07, 2024 07:27 AM PODIATRY NURSING O UTPATIENT NOTE: LOCAL TITLE: PODIATRY [facility] NURSING NOTE (T) STANDARD TITLE: PODIATRY NURSING OUTPATIENT NOTE DATE OF NOTE: MAR 07, 2024@07:27 ENTRY DATE: MAR 07, 2024@07:27:25 AUTHOR: NEL GASPAR COSIGNER: URGENCY: STATUS: COMPLETED PODIATRY [facility] NURSING NOTE (T) Has ADDENDA SUBJECTIVE: 83 year old vet ambulated unassisted into the clinic CHIEF COMPLAINT: Vet here for foot and toenail care. Vet is a diabetic, last A1c 6.5 on 08/23/23. Blood sugar today 134. Vet denies any pain in his feet or ankles today. Review Allergies Allergies reviewed and updated per protocol. ALLERGIES/ADVERSE REACTIONS Type: DRUG Date/Time Reactant Severity Reaction 03/05/2015 14:26 VICTOZA 2-AVIS UNKNOWN 03/05/2015 14:25 INVOKANA UNKNOWN 03/05/2015 14:25 BYETTA UNKNOWN 08/22/2010 11:41 DEMEROL EDEMA OF ARM 12/16/2009 09:27 [place] UNKNOWN 12/16/2009 09:26 CODEINE UNKNOWN MEDICATION LIST REVIEW REPORT Patient states no change in documented OTC/Herbals at this visit. OBJECTIVE: VASCULAR: - DP/PT palpable b/l - CFT < 3 secs b/l - Skin temp from heels to toes warm to warm b/l DERMATOLOGIC: - Nails 2-5 elongated, slightly discolored. left hallux a small spicule noted on left posterior corner. Right hallux no need of professional debridement. - Web spaces clean and dry b/l - Skin intact, no open lesions or cracking noted. No edema, varicosities or hair noted. NEUROLOGIC: - Protective sensation intact 10/10 checked with [facility]. 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 The following risk level was identified for this patient: +POD RISK SCORE+ --LEVEL 1 - (LOW RISK) Foot deformity or -POD RISK SCORE- LEVEL 1 FOOT EDUCATION: 1. Advised patient not to walk barefoot. Instructed the patient to pay close attention to the style and fit of shoes. 2. Explained the importance of daily foot checks. Explained that loss of sensation leads to callouses. Callouses break down, which result in ulcers that may lead to gangrene and amputation. 3. Stressed the importance of daily foot hygiene. Warm (not hot) bathing of the feet, complete drying and thorough inspection for changes in the condition of the skin constitute daily foot care. Demonstrated how to do a thorough foot check. 4. Emphasized the use of clean, non-restrictive socks/stockings and well fitting shoes. 5. Stressed the importance of immediate follow-up of any foot injuries or ulcers. Explained that he/she should be non-weight bearing whenever there are lesions on the foot, to prevent cellular damage. Level of Understanding: Good Patient/Caregiver having difficulty examining feet No Patient/caregiver has difficulty cleansing feet No Patient walks barefoot Never Instructed on the importance of not walking barefoot OBSERVATIONS: After reviewing the H&P and clinical findings, the Dr. Moise made the diagnosis of: Diabetes Mellitus, onychomycosis, anticoagulation therapy PLAN: Dr. Moise examined the patient, was consulted, and directed care of this patient. Treatment today consisted of: - 8 Nails debrided and dremeled without incident. - 1 specule on left hallux dremeled without inicident - Reviewed diabetic foot education with vet - One large silicone toespacer given to vet upon request. - RTC in 3 months with shoes hand sewer /nasra/ NEL GASPAR LICENSED PRACTICAL NURSE Signed: 03/07/2024 11:43 Receipt Acknowledged By: 03/07/2024 11:51 /nasra/ AQUILES MOISE [employer]OCK [employer]APER 03/07/2024 ADDENDUM STATUS: COMPLETED Agree with above assessment and treatment. RTC in for pod nurse for f/u /nasra/ AQUILES MOISE ST[employer] SHAPER Signed: 03/07/2024 11:52 NEL GASPAR [facility]
--- OUTSIDE RECORDS SUMMARY | 2024-03-13 11:00 | XMS_ITS | Encounter Summary ---
Author Name [facility] Organization [facility] Address [address] [place] [id number] Care Team Providers Care Front Office Medical Assistant Name Role Phone TOMASA VAIL Primary Care Provider [facility] Insurance Providers: All historical and current Section [...] Policy [place] MEDICARE (WNR) MEDICARE (M) PART A Dec 13, 2007 PART A [id number] [phone] Diego IBRAHIMS PATIENT MEDICARE (WNR) MEDICARE (M) PART A Dec 13, 2007 PART A [id number] PATRICE,Diego HOMAS PATIENT MEDICARE (WNR) MEDICARE (M) PART B Dec 13, 2007 PART B [id number] PATRICE,Diego HOMAS PATIENT MEDICARE (WNR) MEDICARE (M) PART B Dec 13, 2007 PART B [id number] [phone] PATRICEDiegoS PATIENT [facility] 2024 TRICA RE SELEC T Sep 13, 2024 SELECT [id number] Diego IBRAHIMS PATIENT -FO R-LIFE [facility] Sep 15, 2024 TFL [id number] Diego IBRAHIM PATIENT Selected Encounter This section includes the information on record at [place] for the Encounter. Date/Time Encounter Type Encounter Description Reason Provider Source Mar 13, 2024 03:00 PM OFFICE O/P EST MOD 30 MIN PRIMARY CARE/MEDICINE ICD-10-CM E11.9 Type 2 diabetes mellitus without complications TOMASA VAIL Maciej Encounter Template Text not used by [place] Assessments - Encounter Diagnoses This section includes the primary and secondary diagnoses documented for the Encounter. Date/Time Primary/Secondary Diagnosis Diagnosis Name Provider Source Mar 13, 2024 04:20 PM PRIMARY Type 2 diabetes mellitus without complications TOMASA VAIL [facility] Mar 13, 2024 04:20 PM SECONDARY Athscl heart disease of [place] coronary artery w/o ang pctrs TOMASA VAIL [facility] Mar 13, 2024 04:20 PM SECONDARY Chronic atrial fibrillation, unspecified TOMASA VAIL [facility] Mar 13, 2024 04:20 PM SECONDARY Obstructive sleep apnea (adult) (pediatric) TOMASA VAIL [facility] Mar 13, 2024 04:20 PM SECONDARY Personal history of malignant neoplasm of prostate TOMASA VAIL [facility] Mar 13, 2024 04:20 PM SECONDARY Post-traumatic stress disorder, chronic TOMASA VAIL [facility] Plan of Treatment: Future Appointments (+ 6 months) and Future Tests (+/- 45 days) The Plan of Treatment section includes future care activities for the patient from all [place] treatmentfacilities. This section includes future appointments and future orders which are active, pending or scheduled. Future Appointments This section includes appointments that were scheduled to occur 6 months from the date of the Encounter, up to a maximum of 20 appointments. The data comes from all [place] treatment facilities. Appointment Date/Time Appointment Type Appointme nt Facility Name Mar 29, 2024 01:00 PM AMBULATORY - NONE [facility] Apr 25, 2024 01:30 PM AMBULATORY - NONE [facility] Apr 27, 2024 11:00 AM AMBULATORY - NONE [facility] May 04, 2024 11:30 AM AMBULATORY - NONE [facility] May 08, 2024 02:00 PM AMBULATORY - NONE [facility] Jun 13, 2024 10:30 AM AMBULATORY - SURGERY [facility] Jun 16, 2024 01:30 PM AMBULATORY - NONE [facility] Aug 17, 2024 11:15 AM AMBULATORY - NONE [facility] Aug 17, 2024 11:30 AM AMBULATORY - NONE [facility] Aug 24, 2024 10:30 AM AMBULATORY - NONE [facility] Aug 31, 2024 02:30 PM AMBULATORY - SURGERY [facility] Lab Results: +/- 30 days of the encounter This section includes the Chemistry and Hematology Lab Results on record with [place] for the patient. Radiology Reports and Pathology Reports are provided separately, in subsequent sections. Lab Results This section contains the Chemistry/Hematology Results that were resulted 30 days before or 30 daysafter the date of the Encounter. Date/Time Source Result Type Result - Unit Interpretation Reference Range Specimen Type Comment Mar 07, 2024 11:35 AM [facility] VITAMIN D (TOTAL) SERUM Specimen Type: SERUM No comment entered. Ordering Provider: TOMASA VAIL Report Released Date/Time: Feb 18, 2024 04:01 PM Reporting Lab: [address] [phone] Performing Lab: [address] [phone] VITAMIN D (TOTAL) 47.00 ng/mL 30-75 Mar 07, 2024 11:35 AM [facility] HEMOGLOBIN A1C BLOOD Specimen Type: B [...] Feb 18, 2024 04:01 PM Reporting Lab: [address] [phone] Performing Lab: [address] [phone] HEMOGLOBIN A1C 7.7 H 3.6-5.7 Mar 07, 2024 11:35 AM [facility] LIPID PROFILE PLASMA Specimen Type: PLASMA Comment: CREATININE eGFR was calculated using the CKD-EPI 2020 equation. TRIGLYCERIDE REF RANGE: NORMAL <150 mg/dL BORDERLINE HIGH: 150-199 TRIGLYCERIDE mg/dL HIGH: 200-499 mg/dL VERY HIGH: >=500 mg/dL Ordering Provider: TOMASA VAIL Report Released Date/Time: Feb 18, 2024 04:01 PM Reporting Lab: [address] [phone] Performing Lab: [place] [id number] CHOLESTEROL 161 mg/dL 135-200 LDL CHOLESTEROL 48.0 mg/dL 0-110 HDL CHOLESTEROL 24 mg/dL L 40-60 TRIGLYCERIDE 677 mg/dL H 0-149 Mar 07, 2024 11:35 AM [facility] COMPREHENSIVE METABOLIC PANEL PLASMA S pecimen Type: PLASMA Comment: CREATININE eGFR was calculated using the CKD-EPI 2020 equation. TRIGLYCERIDE REF RANGE: NORMAL <150 mg/dL BORDERLINE HIGH: 150-199 TRIGLYCERIDE mg/dL HIGH: 200-499 mg/dL VERY HIGH: >=500 mg/dL Ordering Provider: TOMASA VAIL Report Released Date/Time: Feb 18, 2024 04:01 PM Reporting Lab: [address] [phone] Performing Lab: [address] [address] ALBUMIN 3.6 g/dL 3.2-4.8 ALKALINE PHOSPHATASE 77 [...] 46 mL/min Mar 07, 2024 11:35 AM [facility] CBC BLOOD Specimen Type: BLOOD No comment entered. Ordering Provider: TOMASA VAIL Report Released Date/Time: Feb 18, 2024 04:01 PM Reporting Lab: [address] [phone] Performing Lab: [address] [phone] WBC COUNT 5.7 10*3/uL 3.6-11.0 RBC COUNT [...] fL 7.4-11.4 Mar 07, 2024 11:35 AM [facility] DIABETIC URINALYSIS PANEL URINE Speci men Type: URINE No comment entered. Ordering Provider: TOMASA VAIL Report Released Date/Time: Feb 18, 2024 04:01 PM Reporting Lab: [address] [phone] Performing Lab: [address] [address] SPECIFIC GRAVITY 1.012 L 1.016-1.022 URINE GLUCOSE [...] and tobacco- related health factors from the [place] facility where the Encounter took place. Current Smoking Status This section includes the most current smoking, or tobacco-related health factor, from the [place] facility where the Encounter took place. Date/Time Current Smoking Status Comment Facil ity Mar 13, 2024 03:00 PM VA-TOBACCO FORMER USER [facility] Tobacco Use History This section includes a history of the smoking, or tobacco-related health factors, that were collected on or before the date of the Encounter. The data comes from the [place] facility where the Encounter took place. Date/Time Smoking Status/Tobacco Use Comment F acility Mar 13, 2024 03:00 PM VA-TOBACCO QUIT 15 YRS OR MORE [facility] Mar 02, 2023 03:30 PM VA-TOBACCO FORMER USER [facility] Mar 02, 2023 03:30 PM VA-TOBACCO QUIT [...] PM QUIT TOBACCO IN THE LAST 12 [facility] Nov 01, 2012 01:15 PM QUIT TOBACCO >12 MO & <7 YRS AGO [facility] Aug 14, 2011 01:29 PM QUIT TOBACCO >12 MO & <7 YRS AGO [facility] Nov 11, 2010 01:57 PM QUIT TOBACCO >12 MO & <7 YRS AGO [facility] Dec 16, 2009 09:26 AM QUIT TOBACCO IN THE LAST 12 [facility] Advance Directives: All historical and current Section Date Range: From patient's date of to the date document was created. This section includes ALL of a patient's completed or amended [place] Advance and Rescinded Directives. The entries below indicate that a directive exists for the patient, but an actual copy is not included with this document. The data comes from all [place] facilities. Date Advance Directives Provider Source Dec 21, 2023 ADVANCE DIRECTIVE DISCUSSION [facility] Encounter Notes: All associated encounter notes This section contains the clinical notes associated to the Encounter. Date/Time Encounter Note(s) Provider Source Mar 14, 2024 06:29 AM DISCHARGE NOTE: LOCAL TITLE: AFTER VISIT SUMMARY NOTE STANDARD TITLE: DISCHARGE NOTE DICT DATE: MAR 14, 2024@06:29 ENTRY DATE: MAR 14, 2024@06:29 DICTATED BY: TOMASA VAIL COSIGNER: URGENCY: STATUS: COMPLETED If the patient did not receive a copy of the after-visit summary or had a virtual visit, a copy of the after-visit summary will be mailed. The after-visit summary includes information pertaining to the patient's encounter, including diagnoses, vital signs, medications, and new orders, as well as a list of any any upcoming appointments and information regarding the patient's ongoing care. The patient's medications were reviewed with the patient by the provider and were provided to the patient as an updated list of medications. The patient was instructed to inform the provider of any medication changes or discrepancies that were noted. Otherwise, the patient was instructed to continue the medications as prescribed. A copy of the after-visit summary provided to the patient is available in [employer]. SCANNED DOCUMENT SIGNATURE NOT REQUIRED Electronically Filed: 03/14/2024 by: TOMASA RODRIGUES [facility] Mar 13, 2024 04:03 PM CARE MANAGEMENT NOTE: LOCAL TITLE: CB CARE MANAGEMENT NOTE STANDARD TITLE: CARE MANAGEMENT NOTE DATE OF NOTE: MAR 13, 2024@16:03 ENTRY DATE: MAR 13, 2024@16:03:10 AUTHOR: GHISLAINE CHRISTINE EXP COSIGNER: URGENCY: STATUS: COMPLETED Personal Freestyle Mike Freestyle Mike personal documentation: - Dates: February 29, 2024 to March 13, 2024 - % time CGM is active: 75% - GMI: 7.4% - Glucose Variability (target <36%): 31.7% - Average Glucose: 173 Time in Ranges - % Very High (>250mg/dl): 9% - % High (181-250mg/dl): 33% - % in target range (70-180mg/dl): 58% - % Low (54-69mg/dl): 0% - % Very low (<54mg/dl): 0% Full Freestyle Mike Report Available in [employer] /nasra/ GHISLAINE CHRISTINE REGISTERED NURSE Signed: 03/13/2024 16:05 Receipt Acknowledged By: 03/14/2024 16:12 /nasra/ CHRISTIANO SCHULER CLINICAL UK[employer] DRIVER AMANDEEP CHRISTINE [facility] Mar 13, 2024 03:58 PM INTERNAL MEDICINE OUTPATIENT NOTE: LOCAL TITLE: PRIMARY CARE OUTPATIENT NOTE (T) STANDARD TITLE: INTERNAL MEDICINE OUTPATIENT NOTE DATE OF NOTE: MAR 13, 2024@15:58 ENTRY DATE: MAR 13, 2024@15:58:47 AUTHOR: TOMASA VAIL EXP COSIGNER: URGENCY: STATUS: COMPLETED In-person Note 83yo [place] Reason for Visit:HERE FOR SCHEDULED APPOINTMENT TO GO OVER HIS LABS AND TO DISCUSS HIS CAD/A FIB - PACEMAKER/ICD- ([facility]) 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- DR BISWAS FOR MH - DR GILLIS FOR DERM - SEES DR SAL FOR HIS PANCREASE- DR SCHWAB IS HIS PCP - SEES EXECUTIVE UROLOGY FOR PROSTATE CANCER - HE FELL IN NOVEMBER ( TRIPPED) WENT TO ER - X-RAYS WERE NEG REVIEW OF SYSTEMS: GI: DENIES ABDOMINAL PAIN ,GERD, CONSTIPATION,DIARRHEA ,RECTAL BLEEDING : DENIES DYSURIA OR HEMATURIA CARDIAC; DENIES CHEST PAIN,PALPATATIONS ,ORTHOPNEA OR PEDAL EDEMA RESPIRATORY:DENIES SOB- CHRONIC COUGH -OR WHEEZING NEURO: DENIES HEADACHE, PARESTHESIA, NEUROPATHY,VISUAL OR HEARING PROBLEMS HABITS; TOBACCO; ETOH; OTHER SUBSTANCES NEG PATIENT ALLERGIES DETAILED ALLERGIES/ADVERSE REACTIONS Type: DRUG Date/Time Reactant Severity Reaction 03/05/2015 14:26 VICTOZA 2-AVIS UNKNOWN 03/05/2015 14:25 INVOKANA UNKNOWN 03/05/2015 14:25 BYETTA UNKNOWN 08/22/2010 11:41 DEMEROL EDEMA OF ARM 12/16/2009 09:27 [place] UNKNOWN 12/16/2009 09:26 CODEINE UNKNOWN AMRS - MEDS (REC SUCCINCT) Active and Recently Inpatient, Outpatient and Clinic Medications (including Supplies): Active Outpatient Medications Status ======= 1) ACCU-CHEK GUIDE (GLUCOSE) TEST STRIP USE 1 STRIP ACTIVE TESTING EVERY DAY NEEDED FOR BLOOD SUGAR TESTING; FOR MIKE COMPARISON 2) CALCIUM 500MG/VITAMIN D 200 UNT TAB TAKE 1 TABLET BY ACTIVE MOUTH TWICE A DAY WITH MEALS 3) CARBOXYMETHYLCELLULOSE NA 0.5% OPH SOLN INSTILL 1 ACTIVE DROP IN EACH EYE THREE TIMES A DAY FOR DRY AND/OR IRRITATED EYE(S) 4) CHOLECALCIF 25MCG (D3-1,000UNIT) TAB TAKE THREE ACTIVE TABLETS BY MOUTH EVERY DAY FOR VITAMIN D DEFICIENCY 5) CLEANSING CLOTH ATTENDS PKT USE WASHCLOTH(S) SUPPLY ACTIVE ITEM NEEDED 6) FERROUS SULFATE 325MG TAB TAKE ONE TABLET BY MOUTH ACTIVE EVERY DAY (AN HOUR BEFORE OR TWO HOURS AFTER A MEAL; TAKE WITH FOOD IF THIS UPSETS YOUR STOMACH) 7) FUROSEMIDE 20MG TAB TAKE ONE TABLET BY MOUTH EVERY ACTIVE DAY 8) INSULIN,GLARGINE-YFGN 100UNIT/ML PEN 3ML INJECT 16 ACTIVE (S) UNITS SUBCUTANEOUSLY EVERY DAY FOR DIABETES (DISCARD PEN 28 DAYS AFTER FIRST USE) (REPLACES ODOM LANTUS PENS) 9) LORATADINE 10MG TAB TAKE ONE TABLET BY MOUTH EVERY ACTIVE DAY NEEDED FOR ALLERGIES (WITH FOOD) 10) MULTIVITS W/MINERALS TAB/CAP (NO VIT K) TAKE 1 TABLET ACTIVE BY MOUTH EVERY DAY 11) NEEDLE,PEN 31G,5MM USE NEEDLE SUPPLY ITEM DIRECTED HOLD 12) POISE PAD,MAXIMUM ABSORB EXTRA COVERAGE USE PADS ACTIVE SUPPLY ITEM DIRECTED 13) POTASSIUM CHLORIDE 10MEQ SA TAB TAKE ONE TABLET BY ACTIVE MOUTH EVERY DAY (WITH FOOD) 14) UNDERPAD,BED 23IN X 36IN PLASTIC BACK USE PAD(S) ACTIVE SUPPLY ITEM DIRECTED Inactive Outpatient Medications Status ======= 1) BRIEF,TRANQUILITY LARGE #[id number] USE BRIEF SUPPLY ITEM DIRECTED 2) INCONT LINER DEPEND GUARDS USE PAD(S) SUPPLY ITEM DIRECTED 3) LANCET,SOFTCLIX USE LANCET(S) TESTING DIRECTED FOR BLOOD SUGAR 4) MAGNESIUM OXIDE 420MG TAB TAKE ONE TABLET BY MOUTH EVERY DAY 5) TAMSULOSIN HCL 0.4MG CAP TAKE ONE CAPSULE BY MOUTH EVERY EVENING, WITH DINNER FOR PROSTATE Active Non-VA Medications Status ======= 1) Non-VA ALPHA-LIPOIC ACID CAP/TAB 2 CAP/TAB MOUTH ACTIVE EVERY DAY 2) Non-VA APIXABAN 5MG TAB 5MG MOUTH TWICE A DAY ACTIVE 3) Non-VA BUSPIRONE HCL 5MG TAB 5MG MOUTH TWICE A DAY ACTIVE 4) Non-VA CARBIDOPA 10/LEVODOPA 100MG TAB 1 TABLET MOUTH ACTIVE AC\T\HS 5) Non-VA CARBIDOPA 10/LEVODOPA 100MG TAB 1 TABLET MOUTH ACTIVE DIRECTED 6) Non-VA CARVEDILOL 3.125MG TAB 3.125MG MOUTH TWICE A ACTIVE DAY 7) Non-VA CLOPIDOGREL BISULFATE 75MG TAB 75MG MOUTH ACTIVE EVERY DAY 8) Non-VA CREON 12,000UNIT EC CAP 3 CAPSULES MOUTH THREE ACTIVE TIMES A DAY, WITH MEALS 9) Non-VA DIAZEPAM 2MG TAB 1MG MOUTH AT BEDTIME ACTIVE 10) Non-VA DONEPEZIL HCL 5MG TAB 5MG MOUTH EVERY DAY ACTIVE 11) Non-VA FAMOTIDINE 20MG TAB 20MG MOUTH TWICE A DAY ACTIVE 12) Non-VA LOPERAMIDE HCL 2MG CAP 2MG MOUTH EVERY DAY ACTIVE 13) Non-VA MEMANTINE HCL 28MG SA CAP 28MG MOUTH EVERY DAY ACTIVE 14) Non-VA MOMETASONE FUROATE 50MCG 120D NASAL SUSP 2 ACTIVE SPRAYS EACH NOSTRIL EVERY DAY 15) Non-VA PAROXETINE HCL 40MG TAB 20MG MOUTH EVERY ACTIVE MORNING 16) Non-VA PERPHENAZINE 2MG TAB 2MG MOUTH AT BEDTIME ACTIVE 17) Non-VA PSYLLIUM POWDER,ORAL DAILY BY MOUTH TWICE A ACTIVE DAY NEEDED 18) Non-VA ZZICOSAPENT ETHYL 1GM 4GM MOUTH TWICE A DAY ACTIVE 37 Total Medications PHYSICAL EXAM: Vital Signs: T: 98 F [36.7 C] (03/13/2024 15:08) P: 82 (03/13/2024 15:08) R: 20 (03/13/2024 15:08) BP: 124/69 (03/13/2024 15:13) Pain: 7 (03/13/2024 15:18) Height: 67 in [170.2 cm] (03/13/2024 15:08) Weight: 189.6 lb [86.00 kg] (03/13/2024 15:08) Pulse Ox: 96% (03/13/2024 15:08) GENERAL: ALERT- ORIENTED X 4- NO DISTRESS LABS: REVIEWED WITH THE PATIENT: CREATININE 1.5 - EGFR 46 - TG 677 A1C 7.7 - HGB 12.0 - REST OK HEAD, EARS ,EYES,NOSE AND THROAT- NORMOCEPHALIC ,VALERIE,EOMI, ENT NEG NECK: SUPPLE WITHOUT MASSES OR BRUITS CHEST/LUNG: CHEST SYMETRICAL- LUNGS CLEAR CARDIOVASCULAR : HEART RRR WITHOUT MURMUR GASTROINTESTINAL: ABDOMEN SOFT WITHOUT MASSES OR BRUITS EXTREMITIES; NO EDEMA NEURO: CN II-XII GROSSLY INTACT - NO TREMORS OR ABNORMAL MOVEMENTS ASSESSMENT/PLAN:CAD/ ATRIAL FIB/PACEMAKER/ICD- [facility] HEART DM- PHARM D PANCREATIC INSUFFICIENCY - DR SAL SPINAL STENOSIS HERBIE NARCOLEPSY/ [facility]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 VA prescription medications, non-VA prescription medications, OTC and herbal medications reviewed: Patient/caregiver verifies that the list is complete and accurate and voices understanding. Patient/caregiver in possession of printed medication list. FOLLOW-UP:RTC IN 6 MONTHS WITH LABS I am the Attending Physician. TOTAL TIME SPENT: Spent 30 minutes in care of this patient today including review of records, exam, and placing orders. /nasra/ TOMASA VAIL PHYSICIAN Signed: 03/13/2024 16:20 TOMASA VAIL [facility] Mar 13, 2024 03:11 PM PRIMARY CARE NURSING NOTE: LOCAL TITLE: OUTPATIENT NURSING INTAKE NOTE (T) STANDARD TITLE: PRIMARY CARE NURSING NOTE DATE OF NOTE: MAR 13, 2024@15:11 ENTRY DATE: MAR 13, 2024@15:11:28 AUTHOR: TAMMY HERNANDEZ COSIGNER: URGENCY: STATUS: COMPLETED Hemoglobin A1C Results: Collection DT Specimen Test Name Result Units Ref Range 03/07/2024 11:29 BLOOD HEMOGLOBIN A1C 7.7 H % 3.6 - 5.7 Comment: Values obtained from A1C measurements can vary. For typical A1C Comment: assays, a reported value of 7.0 could actually be between 6.72 and Comment: 7.28 if measured by a reference method. A reported value of 9.0 Comment: could actually be between 8.73 and 9.27. Ref: Comment: http://www.ngsp.org/CAPdata.asp 08/23/2023 13:13 BLOOD HEMOGLOBIN A1C 6.5 H % 3.6 - 5.7 Comment: Values obtained from A1C measurements can vary. For typical A1C Comment: assays, a reported value of 7.0 could actually be between 6.72 and Comment: 7.28 if measured by a reference method. A reported value of 9.0 Comment: could actually be between 8.73 and 9.27. Ref: Comment: http://www.ngsp.org/CAPdata.asp 02/24/2023 12:02 BLOOD HEMOGLOBIN A1C 6.4 H % 3.6 - 5.7 Comment: Values obtained from A1C measurements can vary. For typical A1C Comment: assays, a reported value of 7.0 could actually be between 6.72 and Comment: 7.28 if measured by a reference method. A reported value of 9.0 Comment: could actually be between 8.73 and 9.27. Ref: Comment: http://www.[email or web address]/CAPdata.asp Review Allergies Allergies reviewed and updated per protocol. ALLERGIES/ADVERSE REACTIONS Type: DRUG Date/Time Reactant Severity Reaction 03/05/2015 14:26 VICTOZA 2-AVIS UNKNOWN 03/05/2015 14:25 INVOKANA UNKNOWN 03/05/2015 14:25 BYETTA UNKNOWN 08/22/2010 11:41 DEMEROL EDEMA OF ARM 12/16/2009 09:27 [place] UNKNOWN 12/16/2009 09:26 CODEINE UNKNOWN New blood pressure reading was documented at this visit. 124/69 MEDICATION LIST REVIEW REPORT Patient states no change in documented OTC/Herbals at this visit. 1. Has the patient been feeling sad or distressed? No 2. Has the patient been having personal or family problems? No 3. Has the patient been experiencing worry and/or stress? No 4. Has the patient been having problems with drugs and/or alcohol? No 5. [place] [facility] pocket card was provided to patient. No/patient declined Last Whole Health MAP ([place] [place], [place], [employer] [place]): 09/14/2023 Personal Health Plan [place], [place] (MAP) keep going Clinical Reminders Activity Alcohol Use Screen (AUDIT-C): Alcohol Screen: SCREEN FOR ALCOHOL (AUDIT-C) An alcohol screening test (AUDIT-C) was negative (score=1). 1. How often did you have a drink containing alcohol in the past year? Consider a drink to be a 12 ounce can or bottle of regular beer, 8 ounces of malt liquor, a 5 ounce glass of table wine, or a 1.5 ounce shot of liquor (like scotch, gin, or vodka). Monthly or less 2. How many drinks containing alcohol did you have on a typical day when you were drinking in the past year? One or two drinks 3. How often did you have six or more drinks on one occasion in the past year? Never COVID-19 Immunization: Refused Pfizer Monovalent COVID-19 vaccine Immunization: COVID-19 (PFIZER), MRNA, LNP-S, PF, ROSE MARIE-SUCROSE, 30 MCG/0.3 ML (AGES 12+ YEARS) Refusal Reason: PATIENT DECISION Patient refuses all immunization(s) in the COVID-19 group Comment: don't want it Date Documented: 03/13/24 15:15 Depression Screening: Perform PHQ-2 A PHQ-2 screen was performed. The score was 0 which is a negative screen for depression. Over the past two weeks, how often have you been bothered by the following problems? 1. Little interest or pleasure in doing things Not at all 2. Feeling down, depressed, or hopeless Not at all Fall Screen: Patient was asked if he/she has had any falls within the past 12 months. Patient reports one fall in past 12 months without injury. Teaching Method: Verbal discussion Education Topic: Falls Risk Level of Understanding: Good Frail/Elderly Screen: ADL Screen - [place] Index of [place] in Activities of Daily Living Record INDEX of ADL. Score = 18 1. Bathing: either sponge bath, tub bath or shower. Receives no assistance (gets in and out of tub by self, if tub is usual means of bathing). 2. Dressing: gets clothes from closets and drawers, including under-clothes, outer garments and using fasteners (including braces if worn). Gets clothes and dresses self without assistance. 3. Toileting: going to the toilet room for bowel and urine elimination; cleaning self after elimination and arranging clothes. (May use cane, walker, or wheelchair, and manage bedpan or commode, emptying same next morning). No assistance needed. 4. Transfer: Moves in and out of bed, or chair, without assistance (may use support object like cane or walker). 5. Continence: Controls urination and bowel movement completely by self. 6. Feeding: Feeds self without assistance. IADL Screen - [place] Instrumental Activities of Daily Living Scale Ability to use telephone: (1 point) Operates Telephone on own initiative; looks up and dials numbers. Shopping: (0 points) Shops independently for small purchases. Food preparation: (0 points) PRepares adequate meals if supplied with ingredients. Housekeeping: (1 points) Needs help with all home maintenance tasks. Laundry: (0 points) All laundry must be done by others. Mode of transportation: (1 point) Arranges own travel via taxi, but does not otherwise use public transportation. Responsibility for own medications: (1 point) Is responsible for taking medications in correct dosages at correct times. Ability to handle finances: (1 point) Manages day-to-day purchases, but needs help with banking, major purchases, etc. Total score: 5 points 8 = High function, independent 0 = Low function, dependent Pain, Brief Evaluation: Type of pain: Ongoing Location: Low Back Intensity: Currently: 7 Usually: 7 Description of Pain: Aching Evaluation: Pain will be evaluated by provider today. Notified via Verbal Communication. Patient Education Documentation: LEARNING NEEDS ASSESSMENT: The patient/family/significant other reports no changes in learning needs. Suicide Screen: C-SSRS Screening [place] Suicide Severity Rating Scale (C-SSRS) screener 1. Over the past month, have you wished you were or wished you could go to sleep and not wake up? No 2. Over the past month, have you had any actual thoughts of killing yourself? No 3. Over the past month, have you been thinking about how you might do this? Response not required due to responses to other questions. 4. Over the past month, have you had these thoughts and had some intention of acting on them? Response not required due to responses to other questions. 5. Over the past month, have you started to work out or worked out the details of how to kill yourself? Response not required due to responses to other questions. 6. If yes, at any time in the past month did you intend to carry out this plan? Response not required due to responses to other questions. 7. In your lifetime, have you ever done anything, started to do anything, or prepared to do anything to end your life (for example, collected pills, obtained a gun, gave away valuables, went to the roof but didn't jump)? Yes 8. If YES, was this within the past 3 months? No Td / Tdap Immunization: The patient may have been vaccinated in the past but written documentation of vaccination is not available today. Tobacco Use Screening: The patient is a former tobacco user. The patient quit fifteen or more years ago. /nasra/ TAMMY HERNANDEZ LICENSED PRACTICAL NURSE Signed: 03/13/2024 15:20 TAMMY HERNANDEZ [facility]
--- OUTSIDE RECORDS SUMMARY | 2024-03-13 11:30 | XMS_ITS | Encounter Summary ---
Author Name [facility] Organization [facility] Address [address] [place] [id number] Care Team Providers Care Electric Deicer Inspector Name Role Phone TOMASA VAIL Primary Care Provider [facility] Insurance Providers: All historical and current [...] Relationship to Policy Holman MEDICARE (WNR) MEDICARE () PART A Dec 13, 2007 PART A [id number] PATRICEDiego SUNSHINES PATIENT MEDICARE (WNR) MEDICARE () PART B Dec 13, 2007 PART B [id number] PATRICE,Diego HOMAS PATIENT MEDICARE (WNR) MEDICARE () PART A Dec 13, 2007 PART A [id number] PATRICE,Diego HOMAS PATIENT MEDICARE (WNR) MEDICARE (M) PART B Dec 13, 2007 PART B [id number] PATRICE,Diego DANGS PATIENT [facility] 2024 [facility] RE SELEC T Sep 13, 2024 SELECT [id number] Diego IBRAHIMS PATIENT -FO R-LIFE [facility] RE [facility] LIFE Sep 15, 2024 TFL [id number] Diego IBRAHIM PATIENT Selected Encounter This section includes the information on record at OR for the Encounter. Date/Time Encounter Type Encounter Description Reason Provider Source Mar 13, 2024 03:30 PM MTMS BY PHARM [facility] 15 MIN CLINICAL PHARMACY ICD-10-CM E11.9 Type 2 diabetes mellitus without complications CHRISTIANO SCHULER IHMaciej Encounter Template Text not used by OR Assessments - Encounter Diagnoses This section includes the primary and secondary diagnoses documented for the Encounter. Date/Time Primary/Secondary Diagnosis Diagnosis Name Provider Source Mar 13, 2024 04:59 PM PRIMARY Type 2 diabetes mellitus without complications CHRISTIANO SCHULER CB Plan of Treatment: Future Appointments (+ 6 months) and Future Tests (+/- 45 days) The Plan of Treatment section includes future care activities for the patient from all OR treatmentfacilities. This section includes future appointments and future orders which are active, pending or scheduled. Future Appointments This section includes appointments that were scheduled to occur 6 months from the date of the Encounter, up to a maximum of 20 appointments. The data comes from all OR treatment facilities. Appointment Date/Time Appointment Type Appointme nt Facility Name Mar 29, 2024 01:00 PM AMBULATORY - NONE [facility] Apr 25, 2024 01:30 PM AMBULATORY - NONE [facility] Apr 27, 2024 11:00 AM AMBULATORY - NONE [facility] May 04, 2024 11:30 AM AMBULATORY - NONE [facility] May 08, 2024 02:00 PM AMBULATORY - NONE [facility] Jun 13, 2024 10:30 AM AMBULATORY - SURGERY [facility] Jun 16, 2024 01:30 PM AMBULATORY - NONE [facility] Aug 17, 2024 11:15 AM AMBULATORY - NONE [facility] Aug 17, 2024 11:30 AM AMBULATORY - NONE [facility] Aug 24, 2024 10:30 AM AMBULATORY - NONE [facility] Aug 31, 2024 02:30 PM AMBULATORY - SURGERY [facility] Lab Results: +/- 30 days of the encounter This section includes the Chemistry and Hematology Lab Results on record with OR for the patient. Radiology Reports and Pathology Reports are provided separately, in subsequent sections. Lab Results This section contains the Chemistry/Hematology Results that were resulted 30 days before or 30 daysafter the date of the Encounter. Date/Time Source Result Type Result - Unit Interpretation Reference Range Specimen Type Comment Mar 07, 2024 11:35 AM [facility] VITAMIN D (TOTAL) SERUM Specimen Type: SERUM No comment entered. Ordering Provider: TOMASA VAIL Report Released Date/Time: Feb 18, 2024 04:01 PM Reporting Lab: [address] [address] Performing Lab: [address] [address] VITAMIN D (TOTAL) 47.00 ng/mL 30-75 Mar 07, 2024 11:35 AM [facility] HEMOGLOBIN A1C BLOOD Specimen Type: B [...] Feb 18, 2024 04:01 PM Reporting Lab: [address] [address] Performing Lab: [address] [address] HEMOGLOBIN A1C 7.7 H 3.6-5.7 Mar 07, 2024 11:35 AM [facility] LIPID PROFILE PLASMA Specimen Type: PLASMA Comment: CREATININE eGFR was calculated using the CKD-EPI 2020 equation. TRIGLYCERIDE REF RANGE: NORMAL <150 mg/dL BORDERLINE HIGH: 150-199 TRIGLYCERIDE mg/dL HIGH: 200-499 mg/dL VERY HIGH: >=500 mg/dL Ordering Provider: TOMASA VAIL Report Released Date/Time: Feb 18, 2024 04:01 PM Reporting Lab: [address] [address] Performing Lab: [address] [address] CHOLESTEROL 161 mg/dL 135-200 LDL CHOLESTEROL 48.0 mg/dL 0-110 HDL CHOLESTEROL 24 mg/dL L 40-60 TRIGLYCERIDE 677 mg/dL H 0-149 Mar 07, 2024 11:35 AM [facility] COMPREHENSIVE METABOLIC PANEL PLASMA S pecimen Type: PLASMA Comment: CREATININE eGFR was calculated using the CKD-EPI 2020 equation. TRIGLYCERIDE REF RANGE: NORMAL <150 mg/dL BORDERLINE HIGH: 150-199 TRIGLYCERIDE mg/dL HIGH: 200-499 mg/dL VERY HIGH: >=500 mg/dL Ordering Provider: TOMASA VAIL Report Released Date/Time: Feb 18, 2024 04:01 PM Reporting Lab: [address] [address] Performing Lab: [address] [address] ALBUMIN 3.6 g/dL 3.2-4.8 ALKALINE PHOSPHATASE 77 [...] 46 mL/min Mar 07, 2024 11:35 AM [facility] CBC BLOOD Specimen Type: BLOOD No comment entered. Ordering Provider: TOMASA VAIL Report Released Date/Time: Feb 18, 2024 04:01 PM Reporting Lab: [address] [address] Performing Lab: [address] [address] WBC COUNT 5.7 10*3/uL 3.6-11.0 RBC COUNT [...] fL 7.4-11.4 Mar 07, 2024 11:35 AM [facility] DIABETIC URINALYSIS PANEL URINE Speci men Type: URINE No comment entered. Ordering Provider: TOMASA VAIL Report Released Date/Time: Feb 18, 2024 04:01 PM Reporting Lab: [address] [address] Performing Lab: [address] [address] SPECIFIC GRAVITY 1.012 L 1.016-1.022 URINE GLUCOSE [...] and tobacco- related health factors from the OR facility where the Encounter took place. Current Smoking Status This section includes the most current smoking, or tobacco-related health factor, from the OR facility where the Encounter took place. Date/Time Current Smoking Status Comment Facil ity Mar 13, 2024 03:00 PM VA-TOBACCO FORMER USER [facility] Tobacco Use History This section includes a history of the smoking, or tobacco-related health factors, that were collected on or before the date of the Encounter. The data comes from the OR facility where the Encounter took place. Date/Time [...] QUIT TOBACCO IN THE LAST 12 [place] [facility] Nov 01, 2012 01:15 PM QUIT TOBACCO >12 MO & <7 YRS AGO [facility] Aug 14, 2011 01:29 PM QUIT TOBACCO >12 MO & <7 YRS AGO [facility] Nov 11, 2010 01:57 PM QUIT TOBACCO >12 MO & <7 YRS AGO [facility] Dec 16, 2009 09:26 AM QUIT TOBACCO IN THE LAST 12 [place] [facility] Advance Directives: All historical and current Section Date Range: From patient's date of to the date document was created. This section includes ALL of a patient's completed or amended VA Advance and Rescinded Directives. The entries below indicate that a directive exists for the patient, but an actual copy is not included with this document. The data comes from all OR facilities. Date Advance Directives Provider Source Dec 21, 2023 ADVANCE DIRECTIVE DISCUSSION FER MAYS [facility] Encounter Notes: All associated encounter notes This section contains the clinical notes associated to the Encounter. Date/Time Encounter Note(s) Provider Source Mar 13, 2024 04:17 PM PHARMACY OUTPATIENT NOTE: LOCAL TITLE: PACT PHARMACY NOTE (T) STANDARD TITLE: PHARMACY OUTPATIENT NOTE DATE OF NOTE: MAR 13, 2024@16:17 ENTRY DATE: MAR 13, 2024@16:17:27 AUTHOR: CHRISTIANO SCHULER EXP COSIGNER: URGENCY: STATUS: COMPLETED SUBJECTIVE: The patient is a 83 year old MALE to PharmD clinic for -INTERIM HISTORY: Last pharm visit 02/29/24, time in range <50%, increased glargine back from 15 to 16 units daily, conservative adjustments d/t prior low alarms when on higher dosing. F/u for cecille download today for better assessment of readings. -SOCIAL SUPPORT: Patient rpestns to clinic with , has been helping with phone appts and glucose monitoring. 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 Hammer toe 08/18/2017 Colonoscopy normal 05/30/2016 History of male erectile disorder 01/05/2013 Chronic atrial fibrillation 06/14/2020 Tobacco Use Disorder * (ICD-9-CM 305.1) 09/08/2012 Sensorineural hearing loss, bilateral 09/22/[address] ([address] 457644767) Diverticulosis * (ICD-9-CM 562.10) 07/04/2012 Anxiety disorder (SNOMED CT 666216120) 01/10/2018 Obstructive sleep apnea of adult 01/12/[address] ([address] 3183396969393) Onychomycosis of toenails (SNOMED CT 09/10/2015 743435970) Partner Relational Problem 07/02/2010 Chronic post-traumatic stress disorder 11/07/2015 ([address] 705443202) Recurrent major depressive episodes, 11/09/2016 mild (SNOMED CT 169941728) Coronary artery disease (SNOMED CT 05/30/2016 07591022) Type 2 diabetes mellitus without 09/10/2015 complication (SNOMED CT 151319506) Prostate Cancer (ICD-9-CM 185.) 12/16/2009 reports today pt w/ hx pancreatitis x 2 SUBJECTIVE/OBJECTIVE: MEDICATION MANAGEMENT: Patient confirms taking the following medications: DIABETES: 1. insulin glargine-yfgn 16 untis daily -- pt using nonva cecille 2 -HYPOGLYCEMIA: - no low alarms -NUTRITION: - some days patient will sleep most of the day and not eat much PATIENT ALLERGIES DETAILED ALLERGIES/ADVERSE REACTIONS Type: DRUG [...] DAY NEEDED FOR BLOOD SUGAR TESTING; FOR CECILLE COMPARISON 2) CALCIUM 500MG/VITAMIN D 200 UNT [...] TWICE A DAY ACTIVE 37 Total Medications OBJECTIVE Measurement DT WEIGHT LB(KG)[BMI] 03/13/2024 15:08 189.6(86.00)[30*] 02/16/2024 13:26 182(82.55)[29*] 12/08/2023 15:10 186.8(84.73)[29*] 09/14/2023 15:36 192.4(87.27)[30*] 03/02/2023 15:28 192.2(87.18)[30*] 08/31/2022 15:20 192(87.09)[30*] VITALS: Measurement DT PULSE 03/13/2024 15:08 82 09/14/2023 15:36 87 03/02/2023 15:28 83 08/31/2022 15:20 86 01/13/2022 14:24 78 01/02/2021 13:08 95 BP (Date Time) 124/69 (03/13/2024 15:13) 132/72 (03/13/2024 15:08) 158/66 (09/14/2023 15:42) LABORATORY: Hemoglobin A1C: HGBA1C: 7.7 (03/07/24 11:29) BLOOD HGBA1C: 6.5 (08/23/23 13:13) BLOOD HGBA1C: 6.4 (02/24/23 12:02) BLOOD Lipid Panel: Collection DT Specimen Test Name Result Units Ref Range 03/07/2024 11:29 PLASMA CHOLESTEROL 161 mg/dL 135 - 200 03/07/2024 11:29 PLASMA LDL CHOLESTEROL 48.0 mg/dL 0 - 110 03/07/2024 11:29 PLASMA HDL CHOLESTEROL 24 L mg/dL 40 - 60 03/07/2024 11:29 PLASMA TRIGLYCERIDE 677 H mg/dL 0 - 149 Comment: CREATININE eGFR was calculated using the CKD-EPI 2020 equation. Comment: TRIGLYCERIDE REF RANGE: NORMAL <150 mg/dL BORDERLINE HIGH: 150-199 Comment: TRIGLYCERIDE mg/dL HIGH: 200-499 mg/dL VERY HIGH: >=500 mg/dL Renal Panel: Collection DT Specimen Test Name Result Units Ref Range 03/07/2024 11:29 PLASMA ALBUMIN 3.6 g/dL 3.2 - 4.8 03/07/2024 11:29 PLASMA BUN 28 H mg/dL 9 - 23 03/07/2024 11:29 PLASMA CALCIUM 9.1 mg/dL 8.7 - 10.4 03/07/2024 11:29 PLASMA CREATININE 1.5 H mg/dL 0.70 - 1.30 03/07/2024 11:29 PLASMA CO2 29 mmol/L 21 - 32 03/07/2024 11:29 PLASMA GLUCOSE 155 H mg/dL 74 - 106 03/07/2024 11:29 PLASMA SODIUM 139 mmol/L 136 - 148 03/07/2024 11:29 PLASMA CHLORIDE 105 mmol/L 98 - 107 03/07/2024 11:29 PLASMA POTASSIUM 4.8 mmol/L 3.5 - 5.1 03/07/2024 11:29 PLASMA ANION GAP 9.8 L mmol/L 10 - 20 03/07/2024 11:29 PLASMA EGFR (CALCULATED) 46 mL/min. Comment: CREATININE eGFR was calculated using the CKD-EPI 2020 equation. Comment: TRIGLYCERIDE REF RANGE: NORMAL <150 mg/dL BORDERLINE HIGH: 150-199 Comment: TRIGLYCERIDE mg/dL HIGH: 200-499 mg/dL VERY HIGH: >=500 mg/dL Collection DT Specimen Test Name Result Units Ref Range 01/02/2022 14:47 PLASMA MAGNESIUM 1.6 L mg/dL 1.8 - 2.4 Comment: EGFR eGFR uses the CKD-EPI 2020 equation. See National Kidney Comment: EGFR Foundation website kidney.org for more information. Hepatic Function Panel: Collection DT Specimen Test Name Result Units Ref Range 03/07/2024 11:29 PLASMA ALBUMIN 3.6 g/dL 3.2 - 4.8 03/07/2024 11:29 PLASMA ALKALINE PHOSPHAT 77 U/L 46 - 116 03/07/2024 11:29 PLASMA ALT/SGPT <7 L U/L 10 - 45 03/07/2024 11:29 PLASMA AST/SGOT 18 U/L 0 - 33.9 03/07/2024 11:29 PLASMA PROTEIN, TOTAL 6.4 g/dL 6.4 - 8.5 03/07/2024 11:29 PLASMA BILIRUBIN, TOTAL 0.4 mg/dL 0.3 - 1.2 Comment: CREATININE eGFR was calculated using the CKD-EPI 2020 equation. Comment: TRIGLYCERIDE REF RANGE: NORMAL <150 mg/dL BORDERLINE HIGH: 150-199 Comment: TRIGLYCERIDE mg/dL HIGH: 200-499 mg/dL VERY HIGH: >=500 mg/dL Microalbumin Ratio: Collection DT Specimen Test Name Result Units Ref Range 03/07/2024 11:35 URINE MICROALB/CREAT RA 19.3 mg/g 0.0 - 19.9 Creatinine Clearance: Est. CRCL 40.5 mL/min03/07/24 TSH/T4: ..TSH: 2.047 (05/25/13 11:08) SERUM .TSH: 1.800 (12/16/09 10:35) SERUM TSH: 2.540 (08/03/22 11:26) PLASMA FT4: No data available URIC ACID: URIC ACID: No data available HOME MONITORING: Home BG Readings: Name: Yoana Ibrahim Date of : 1940 Report Period: 02/15/2024 - 03/13/2024 (28 days) Generated: 03/13/2024 % Time CGM Active: 68% -- recent sensor hit on door and fell off -- avg scans 3/day Glucose Statistics and Targets Average Glucose: 180 mg/dL Glucose Management Indicator (GMI): 7.6% Glucose Variability (%CV): 29.4% Target Range: 70 - 180 mg/dL Time in Ranges Very High: >250 mg/dL --- 12% High: 181 - 250 mg/dL --- 35% Target Range: 70 - 180 mg/dL --- 53% Low: 54 - 69 mg/dL --- 0% Very Low: <54 mg/dL --- 0% Clinical Reminders Activity PBM PharmD Pharmacotherapy Rem V12: PHARMACIST INTERVENTIONS: TYPE 2 DIABETES MELLITUS Time in range just above goal >50% relaxed for age. A1c increasedbut remains <8% at goal for patient. Limited ability to titrate glargine further d/t times of lower readings mostly r/t days when patient not eating. Hx pancreatitis limits tx options. Prefernce avoidance of aspart d/t increased hypoglycemia risk but may need to consider if difficulty mainting goal w/o hypgolycemia. Pt meeting OR CFU for personal cecille now, reviewed cecille 3, provided educaiton materials and showed/explained differences. WIll order cecille 3 reader and sensors. Medication monitoring, no dosage change required, continue to monitor and assess - continue insulin glargine 16 untis daily - porder cecille 3 reader and sensors Medications reconciled and discussed with patient/caregiver. Patient/caregiver in possession of printed medication list. Whole Health Clinical Care- PharmD created treatment plan through shared decision making with patient according prioritizing their goals and interests. Whole Health Education- PharmD educated patient surrounding one of the eight components of proactive health and well being (moving the body, surroundings, personal development, food and drink, recharge, relationships, spirit and soul, power of the mind). Return for follow-up labs: 3-6 mo RTC to see Pharmacy Clinic: ~6 weeks in clin for reader download Future Appointments Mar@13:00 [facility] CARE-D[facility] - [facility] Apr@13:30 [facility] CARE-UROLOGY - [facility] May@13:00 [facility] - [facility] Jun@13:30 [facility] PHONE NUTR Josh - [facility] TELEPHONE NUTRITION [place] --- Recall Reminders --- Time spent with patient = 30 minutes. /nasra/ CHRISTIANO SCHULER CLINICAL BUSINESS DIVISION CHAIR Signed: 03/15/2024 17:05 CHRISTIANO SCHULER [facility]
--- OUTSIDE RECORDS SUMMARY | 2024-04-27 07:00 | XMS_ITS | Encounter Summary ---
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 Name Role Phone TOMASA VAIL Primary Care Provider Unavailabl e Insurance Providers: All historical and current [...] PART A Dec 13, 2007 PART A [id number] A Diego IBRAHIMS PATIENT MEDICARE (WNR) MEDICARE (M) PART B Dec 13, 2007 PART B [id number] [phone] PATRICE,Diego DANGS PATIENT MEDICARE (WNR) MEDICARE (M) PART A Dec 13, 2007 PART A [id number] [phone] PATRICE,Diego HOMAS PATIENT MEDICARE (WNR) MEDICARE (M) PART B Dec 13, 2007 PART B [id number] Diego IBRAHIMS PATIENT [facility] 2024 TRICA RE SELEC T Sep 13, 2024 SELECT [id number] [phone] Diego IBRAHIMS PATIENT -FO R-LIFE TRICA RE FOR LIFE Sep 15, 2024 TFL [id number] [phone] PATRICEDiego MACIEJ PATIENT Selected Encounter This section includes the information on record at AR for the Encounter. Date/Time Encounter Type Encounter Description Reason Provider Source Apr 27, 2024 11:00 AM Outpatient Encounter GENERAL INTERNAL MEDICINE ICD-10-CM Z77.29 Contact with and exposure to other hazardous substances LAKIA BELL [facility] Encounter Template Text not used by AR Assessments - Encounter Diagnoses This section includes the primary and secondary diagnoses documented for the Encounter. Date/Time Primary/Secondary Diagnosis Diagnosis Name Provider Source Apr 27, 2024 12:03 PM PRIMARY Contact with and exposure to other hazardous substances LAKIA BELL [facility] Apr 27, 2024 12:03 PM SECONDARY Athscl heart disease of [place] coronary artery w/o ang pctrs LAKIA BELL [facility] Apr 27, 2024 12:03 PM SECONDARY Personal history of malignant neoplasm of prostate LAKIA BELL [facility] Apr 27, 2024 12:03 PM SECONDARY Type 2 diabetes mellitus without complications RAJNI BELLLAKIALAURA HUDSON [facility] Plan of Treatment: Future Appointments (+ 6 months) and Future Tests (+/- 45 days) The Plan of Treatment section includes future care activities for the patient from all [facility] This section includes future appointments and future orders which are active, pending or scheduled. Future Appointments This section includes appointments that were scheduled to occur 6 months from the date of the Encounter, up to a maximum of 20 appointments. The data comes from all AR treatment facilities. Appointment Date/Time Appointment Type Appointme nt Facility Name May 04, 2024 11:30 AM AMBULATORY - NONE [facility] May 08, 2024 02:00 PM AMBULATORY - NONE [facility] Jun 13, 2024 10:30 AM AMBULATORY - SURGERY [facility] Jun 16, 2024 01:30 PM AMBULATORY - NONE [facility] Aug 17, 2024 11:15 AM AMBULATORY - NONE [facility] Aug 17, 2024 11:30 AM AMBULATORY - NONE [facility] Aug 24, 2024 10:30 AM AMBULATORY - NONE [facility] Aug 31, 2024 02:30 PM AMBULATORY - SURGERY [facility] Advance Directives: All historical and current Section Date Range: From patient's date of to the date document was created. This section includes ALL of a patient's completed or amended VA Advance and Rescinded Directives. The entries below indicate that a directive exists for the patient, but an actual copy is not included with this document. The data comes from all AR facilities. Date Advance Directives Provider Source Dec 21, 2023 ADVANCE DIRECTIVE DISCUSSION FRE MA[facility] Encounter Notes: All associated encounter notes This section contains the clinical notes associated to the Encounter. 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 If you have these problems check otherwise leave blank. HEENT: [] Headaches [] Swollen Glands [] Blurred Vision [] Recurrent Sore Throats [x] Nasal Congestion [] Hoarseness of the voice [] Goiter (a neck mass) [] Itchy Watery Eyes (Allergies) [x] Rhinorrhea (a runny nose) [] Decreased Hearing [x] Changes in hearing [] Tinnitus (ringing in the ears) [] Changes in vision [] Epistaxis (nosebleeds) CARDIAC: [] Chest Pain [] Palpitations [] PND (This is a sudden, severe shortness of breath at night that awakens a person from sleep). [] Orthopnea (shortness of breath when LAYING FLAT) [] Angina (chest pain) LUNGS: [] Shortness of breath at REST [x] Shortness of breath on EXERTION [] Wheezing [] Hemoptysis (coughing up blood) [] Problem with Sputum Production (phlegm in throat) [x] Cough GASTROINTESTIONAL: [] Problems with a Poor Appetite [] Heartburn or Reflux [] Hemorrhoids [] Nausea [] Vomiting [] Dyspepsia (Indigestion) [] Dysphagia (actual problems with swallowing food) [x] Diarrhea [] Constipation [x] Changes in bowel habits/patterns Genitourinary: [x] Problems with Urinary Retention (not being able to empty your bladder) [] Dysuria (pain with urinating) [] Hematuria (blood with urinating) [x] Polyuria (excessive urination) [] Nocturia (urinating at night) [x] Changes in libido (desire for sex/sexual intercourse) [x] Erectile dysfunction [x] Back pain VASCULAR: [] Difficulties with Claudication (cramps in the legs when walking or ambulating) [] Leg Ulcers [x] Varicose veins [x] Edema (swelling of the legs) NEUROLOGICAL: [] Difficulties with seizures or Loss of Consciousness (blacking out) [x] Dementia or memory problems [] Tremors [x] Difficulty with Motor or Sensory to include paresthesia's (Paresthesia's are tingling, crawling, and or burning sensations) [x] Weakness [] Vertigo (This is the sudden sensation that you are unsteady or that your surroundings are moving) [] Lightheadedness (A feeling like you are going to faint) ENDOCRINE: [] Difficulties with heat intolerance [] Difficulties with cold intolerance [] Excess Sweating [] Wt. Gain or Loss (unintentional) SKIN: [] Difficulties with rash(s) [] Xerosis (dry skin) [] Pruritus (itching skin) [] Color Change [] Changes in Hair/Nails GENERAL: [x] Sleep difficulties or disturbances [] Fevers [] Chills [x] Changes in sleep pattern [] Night sweats [x] Fatigue [] Body aches [] Anorexia [] Snoring HISTORIES (, Medical, Family, Social): HX: Age on entrance: 21 Wounded: No Hospitalized for illness or injuries while on Combat duty: No Hospital admissions for injuries/illness when in the service: No Captured: No ANY KNOW CHEMICAL EXPOSURES to include: Asbestos: No Mercury: No Do you have any health issues or concerns you feel may be related to [place]? Yes If yes what: prostate cancer, heart disease, DM2 Date of onset: After service Still present? Yes CHILDHOOD ILLNESSES & PAST MEDICAL HISTORY: Chicken pox: Yes Measles: Yes Pertussis (whooping cough): No Mumps: Unknown Mononucleosis: No Scarlet Fever: No Rheumatic Fever: No Have you EVER had ANY form of hepatitis: No Have you ever had any exposure to blood products: No Have you ever had any blood transfusions: No SOCIAL HX AND HABITS: Do you now or have you ever smoked: Yes If at what age did you start: 18 If you quit at what age did you quit: 60s Do you drink alcohol: 1 beer year Have you ever had any problems with drugs or alcohol: No Have you ever used any Illegal/Illicit Drugs: No Do you have a tattoo: No MEDICAL HX: A Exposure to potentially hazardous substance ([facility] 01/05/2024 ARTURO OROPEZA [id number]) (ICD-10-CM Z77.29) A History of malignant neoplasm of prostate ([facility] 01/13/2022 TOMASA VAIL [id number]) (ICD-10-CM Z85.46) A Narcolepsy ([facility] [id number]) (ICD-10-CM G47.419) 01/12/2019 TAMMY HERNANDEZ A Hammer toe ([facility] [id number]) (ICD-10-CM M20.42) 08/18/2017 ZOIE MOISE A Colonoscopy normal ([facility] [id number]) (ICD-10-CM 05/30/2016 TOMASA VAIL R69.), Onset A History of male erectile disorder ([facility] 01/05/2013 CARYN SALINAS [id number]) (ICD-9-CM V11.8) A Chronic atrial fibrillation ([facility] 512002205) 06/14/2020 TOMASA VAIL (ICD-10-CM I48.20) A TOBACCO USE DISORDER (ICD-9-CM 305.1); Tobacco 09/08/2012 Beth RODRIGEZ Use Disorder * (ICD-9-CM 305.1) A Sensorineural hearing loss, bilateral ([facility] 09/22/2016 LORNA CLEMENTE [id number]) (ICD-10-CM H90.3); Sensorineural hearing loss, bilateral (SNOMED CT 078999802) A DIVERTICULOSIS OF COLON (ICD-9-CM 562.10); 07/04/2012 TOMASA VAIL Diverticulosis * (ICD-9-CM 562.10) A Anxiety Disorder ([facility] [id number]) (ICD-10-CM 01/10/2018 SUEZTTE SALCEDO F41.9) PTSD symptoms currently subclinical, problems list updated A Obstructive Sleep Apnea (Adult) (Pediatric) ([facility] 01/12/2019 TOMASA VAIL [id number]) (ICD-10-CM G47.33), Onset 02/17/2012 [facility] - [facility] 18CM INSPIR AND 14 EXPIR A Tinea unguium ([facility] [id number]) (ICD-10-CM B35.1); 09/10/2015 ZOIE MOISE Onychomycosis of toenails (SNOMED CT 695634180) A 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, 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 (ICD-9-CM V61.10); 07/02/2010 OESTERMEYER,SON Partner Relational Problem A Post-traumatic stress disorder, chronic ([facility] 11/07/2015 Beth RODRIGEZ [id number]) (ICD-10-CM F43.12); Chronic post-traumatic stress disorder (SNOMED CT 957463619) A Major depressive disorder, recurrent, mild ([facility] 11/09/2016 SUZETTE SALCEDO [id number]) (ICD-10-CM F33.0); Recurrent major depressive episodes, mild (SNOMED CT 555860955) A Athscl heart disease of [place] coronary artery 05/30/2016 TOMASA VAIL w/o ang pctrs ([facility] [id number]) (ICD-10-CM I25.10); Coronary artery disease (SNOMED CT 24179832) A Type 2 diabetes mellitus without complications 09/10/2015 ZOIE MOISE ([facility] [id number]) (ICD-10-CM E11.9); Type 2 diabetes mellitus without complication (SNOMED CT 976930940) A MALIGN NEOPL PROSTATE (ICD-9-CM 185.); Prostate 12/16/2009 TOMASA VAIL Cancer (ICD-9-CM 185.) SURGICAL HX: Appendectomy Open heart TKR, bilateral Cataract Cholecystectomy ALLERGIES AND CURRENT MEDICATIONS: ALLERGIES/ADVERSE REACTIONS Type: DRUG Date/Time Reactant Severity Reaction 03/05/2015 14:26 VICTOZA 2-AVIS UNKNOWN 03/05/2015 14:25 INVOKANA UNKNOWN 03/05/2015 14:25 BYETTA UNKNOWN 08/22/2010 11:41 DEMEROL EDEMA OF ARM 12/16/2009 09:27 [place] UNKNOWN 12/16/2009 09:26 CODEINE UNKNOWN Active Inpatient, Outpatient and Clinic Medications (including Supplies): Outpatient Medications Status 1) ACCU-CHEK GUIDE (GLUCOSE) TEST STRIP USE [...] TABLET BY MOUTH EVERY ACTIVE DAY 8) GLUCOSE SENSOR FREESTYLE CECILLE 3 USE GLUCOSE SENSOR ACTIVE SUPPLY ITEM DIRECTED 9) INSULIN,GLARGINE-YFGN 100UNIT/ML PEN 3ML INJECT 16 ACTIVE (S) UNITS SUBCUTANEOUSLY EVERY DAY FOR DIABETES (DISCARD PEN 28 DAYS AFTER FIRST USE) (REPLACES ODOM LANTUS PENS) 10) LORATADINE 10MG TAB TAKE ONE TABLET BY MOUTH EVERY ACTIVE DAY NEEDED FOR ALLERGIES (WITH FOOD) 11) MULTIVITS W/MINERALS TAB/CAP (NO VIT K) TAKE 1 TABLET ACTIVE BY MOUTH EVERY DAY 12) NEEDLE,PEN 31G,5MM USE NEEDLE SUPPLY ITEM DIRECTED HOLD 13) POISE PAD,MAXIMUM ABSORB EXTRA COVERAGE USE PADS ACTIVE SUPPLY ITEM DIRECTED 14) POTASSIUM CHLORIDE 10MEQ SA TAB TAKE ONE TABLET BY ACTIVE MOUTH EVERY DAY (WITH FOOD) 15) UNDERPAD,BED 23IN X 36IN PLASTIC BACK USE PAD(S) ACTIVE SUPPLY ITEM DIRECTED Non-VA Medications Status 1) Non-VA ALPHA-LIPOIC ACID CAP/TAB 2 CAP/TAB [...] 1GM 4GM MOUTH TWICE A DAY ACTIVE FAMILY HX: Does anyone in your immediate family (bloodline) have any of the following: (This includes mother, father, grandparents, brothers, and sisters regardless of whether they are now living or Positive for the following: -Cancer (to include colon prostate and breast cancer) VITALS: T: 98 F [36.7 C] (03/13/2024 15:08) P: 82 (03/13/2024 15:08) R: 20 (03/13/2024 15:08) BP: 124/69 (03/13/2024 15:13) W: 189.6 lb [86.00 kg] (03/13/2024 15:08) BMI: 29.8 PHYSICAL EXAM: GENERAL: The patient is a 83 year old Patient is Alert/Oriented x3, in no acute distress PSYCHIATRIC: Affect normal, Alert and oriented x3 Completed by PCP on 03/13/2024 LABS AND IMAGING REVIEW: Collection time: Mar 07, 2024@11:29 Test Name Result Units Range --------- ------ ----- ----- VITAMIN D (TOTAL) 47.00 ng/mL 30 - 75 Collection time: Mar 07, 2024@11:29 Test Name Result Units Range --------- ------ ----- ----- GLUCOSE 155 H mg/dL 74 - 106 SODIUM 139 mmol/L 136 - 148 POTASSIUM 4.8 mmol/L 3.5 - 5.1 CHLORIDE 105 mmol/L 98 - 107 CO2 29 mmol/L 21 - 32 BUN 28 H mg/dL 9 - 23 CREATININE 1.5 H mg/dL 0.70 - 1.30 CALCIUM 9.1 mg/dL 8.7 - 10.4 EGFR (CALCULATED) 46 mL/min. ANION GAP 9.8 L mmol/L 10 - 20 AST/SGOT 18 U/L 0 - 33.9 ALT/SGPT <7 L U/L 10 - 45 ALKALINE PHOSPHATASE 77 U/L 46 - 116 BILIRUBIN, TOTAL 0.4 mg/dL 0.3 - 1.2 PROTEIN, TOTAL 6.4 g/dL 6.4 - 8.5 ALBUMIN 3.6 g/dL 3.2 - 4.8 CHOLESTEROL 161 mg/dL 135 - 200 LDL CHOLESTEROL 48.0 mg/dL 0 - 110 HDL CHOLESTEROL 24 L mg/dL 40 - 60 TRIGLYCERIDE 677 H mg/dL 0 - 149 ASESSMENT: Personal History of exposure to [place] PLAN: [place]/ educated as to the purpose of today's examination and of the Agent [place] Registry. / educated regarding Agent [place] exposure. / given the opportunity to ask questions and voice concerns regarding Agent [place] exposure and health related issues as related to themselves and their children. Reviewed available studies (labs, imaging, pathology, PFTs, etc.) in CPRS and JLV, the claims process (stressor statement, appts, etc.) & answered questions. DIC benefits discussed. instructed to continue follow up with primary care. Service connection issues were D/W /. advised how and where to file a claim. 's data was entered into the VIR registry site. [place]/ voiced understanding of the above-mentioned counseling. /nasra/ LAKIA BELL NURSE PRACTITIONER Signed: 04/27/2024 12:04 04/27/2024 ADDENDUM STATUS: COMPLETED DEPARTMENT OF [facility] [address] [place] [address] YAONA IBRAHIM Apr [address] [place] [address] Dear YOANA IBRAHIM, We wish to acknowledge your recent participation in the [facility] Affairs (AR) Agent [place] Health Registry (AOR). In effort assists us to serve you and other veterans who are concerned about the possible health problems which might have resulted from service in the [place] during the [place] era (between 1961 and 1974). The results of your examination are to be maintained by AR. If any presumptive conditions have been identified related to Agent [place] , you should follow up with a Industrial Education Instructor, as previously discussed, to file a claim. If any labs or imaging were ordered as a result of this visit today, we will attempt to contact you to discuss and notify your PCP if any results warrant follow up. If you have any questions or concerns about your AOR, please contact Environmental Health Coordinators, at [phone] Rhonda Hightower (ext [phone]) or Roderick Johnson (ext [phone]). If a non-VA physician subsequently evaluates you, you are encouraged to have your non-VA physician provide VA with any additional diagnoses. This information is to be included in your health record as well as the AOR. Remember, this examination does not automatically initiate a claim for VA benefits. If you wish to file a claim for compensation to establish possible service connection, contact your nearest AR Regional Office. In your area, the Regional Office is located at [address] [place] [address]. Their telephone number is . VA may pay compensation for current disability due to any injury or disease that was incurred, or was aggravated, during service. The condition does not have to be related to combat. If you need any further assistance, you may call one of the following toll-free numbers: 1. Veterans Implementation Consultant: (for information on filing claims); 2. [facility] Benefits Service Center: [phone]-[phone] ([phone]); or 3. AR Helpline: To receive health care, veterans generally must be enrolled with AR. You may enroll at any time, if eligible. Additional information on enrollment, including enrollment forms and online applications, can also be found on the Internet at http://www.va.gov/elig/, or contact a Veterans Implementation Consultant by calling the AR toll-free telephone number . An outreach program has been implemented in which AR notifies all individuals listed in the AOR of significant VA activities, including the health consequences of service during the [place] era. The VA's Exposures and Health Newsletter can be found at web site at: Exposures - Public Health (va.gov). If a non-VA physician subsequently evaluates you and finds a new diagnosis, you are encouraged to provide VA with all additional diagnoses, which will be included in your medical record. We trust this information is helpful to you. Once again, your participation in the AOR is appreciated. Sincerely, Lakia Bell, REPROGRAPHICS ASSOCIATE-EXAMINER OF CURRENCY Environmental Health Clinician /es/ LAKIA BELL NURSE PRACTITIONER Signed: 04/27/2024 13:00 LAKIA BELL CBOC
--- OUTSIDE RECORDS SUMMARY | 2024-05-08 10:00 | XMS_ITS | Encounter Summary ---
Author Name [facility] [place] Organization [facility] [place] Address [address] [place] [address] Care Team Providers Care Belt Line Feeder Name Role Phone TOMASA VAIL Primary Care [...] PART A Dec 13, 2007 PART A [id number] Diego IBRAHIMS PATIENT MEDICARE (WNR) MEDICARE (M) PART B Dec 13, 2007 PART B [id number] [phone] PATRICE,Diego DANGS PATIENT MEDICARE (WNR) MEDICARE (M) PART A Dec 13, 2007 PART A [id number] [phone] PATRICE,Diego HOMAS PATIENT MEDICARE (WNR) MEDICARE (M) PART B Dec 13, 2007 PART B [id number] [phone] Diego IBRAHIMS PATIENT [facility] 2024 TRICA RE SELEC T Sep 13, 2024 SELECT [id number] [phone] Diego IBRAHIMS PATIENT -FO R-LIFE [facility] Sep 15, 2024 TFL [id number] [phone] Diego IBRAHIM PATIENT Selected Encounter This section includes the information on record at [place] for the Encounter. Date/Time Encounter Type Encounter Description Reason Provider Source May 08, 2024 02:00 PM HEARING AID REPAIR/MODIFYIN G AUDIOLOGY ICD-10-CM H90.3 Sensorineural hearing loss, bilateral ROBSON ROMERO IHMaciej Encounter Template Text not used by [facility] Assessments - Encounter Diagnoses This section includes the primary and secondary diagnoses documented for the Encounter. Date/Time Primary/Secondary Diagnosis Diagnosis Name Provider Source May 08, 2024 02:13 PM PRIMARY Sensorineural hearing loss, bilateral ROBSON ROMERO [facility] May 08, 2024 02:13 PM SECONDARY Tinnitus, bilateral ROBSON ROMERO [facility] Plan of Treatment: Future Appointments (+ 6 [...] Date/Time Appointment Type Appointme nt Facility Name Jun 13, 2024 10:[address] [facility] Jun 16, 2024 01:30 PM AMBULATORY - NONE [facility] Aug 17, 2024 11:15 AM AMBULATORY - NONE [facility] Aug 17, 2024 11:30 AM AMBULATORY - NONE [facility] Aug 24, 2024 10:30 AM AMBULATORY - NONE [facility] Aug 31, 2024 02:30 PM AMBULATORY - SURGERY [facility] Advance Directives: All historical and current Section Date Range: From patient's date of to the date document was created. This section includes ALL of a patient's completed or amended [place] Advance and Rescinded Directives. The entries below indicate that a directive exists for the patient, but an actual copy is not included with this document. The data comes from all [place] facilities. Date Advance Directives Provider Source Dec 21, 2023 ADVANCE DIRECTIVE DISCUSSION FER MAYS [facility] Encounter Notes: All associated encounter notes This section contains the clinical notes associated to the Encounter. Date/Time Encounter Note(s) Provider Source May 08, 2024 07:25 AM AUDIOLOGY NOTE: LOCAL TITLE: AUDIOLOGY ASSESSMENT (T) STANDARD TITLE: AUDIOLOGY NOTE DATE OF NOTE: MAY 08, 2024@07:25 ENTRY DATE: MAY 08, 2024@07:25:56 AUTHOR: ROBSON ROMERO COSIGNER: URGENCY: STATUS: COMPLETED COMPLAINTS ASSOCIATED WITH HEARING OR EARS: CHIEF COMPLAINT: Vet is here to obtain help for perceived hearing difficulties. Mr. Kc reports right ear is useless it keeps getting worse when it was already poor. He reports hearing aids stopped working. OTOSCOPY: Right ear canal clear, tympanic membrane intact, no retractions or suspected effusions, normal landmarks identified. Left ear canal clear, tympanic membrane intact, no retractions or suspected effusions, normal landmark identified. AUDIOMETRIC RESULTS - TYPE AND SEVERITY: Right Ear. Severe sloping to profound sensorineural hearing loss. Left Ear. Mild sloping to severe sensorineural hearing loss. SPEECH RECOGNITION SCORES: Right Ear. Recorded, [place] CNC 50 word list. Left Ear. Recorded, [place] CNC 50 word list. PREVIOUS TEST RESULTS: Bilateral. Declined puretone thresholds since last exam from 2022. OTHER: Hearing aid check was poor. Occluded left wax filter, change same and sound was restored. RECOMMENDATIONS: Periodic hearing recheck. New Utilization Coordinator ordered. /nasra/ ROBSON ROMERO LETTERER Signed: 05/08/2024 14:14 ROBSON ROMERO OC
--- OUTSIDE RECORDS SUMMARY | 2024-06-13 06:30 | XMS_ITS | Encounter Summary ---
Author Name [facility] [place] [facility] [place] [facility] [place] Address [address] [place] [id number] Care Team Providers Care Radiographer Angiogram Name Role Phone TOMASA VAIL [facility] Providers: All historical and [...] PART A Dec 13, 2007 PART A [id number] A PATRICEDiego SUNSHINES PATIENT MEDICARE (WNR) MEDICARE () PART B Dec 13, 2007 PART B [id number] PATRICE,Diego DANGS PATIENT MEDICARE (WNR) MEDICARE () PART A Dec 13, 2007 PART A [id number] [id number] [phone] PATRICE,Diego HOMAS PATIENT MEDICARE (WNR) MEDICARE (M) PART B Dec 13, 2007 PART B Diego IBRAHIMS PATIENT [facility] 2024 TRICA RE SELEC T Sep 13, 2024 SELECT [id number] [phone] Diego IBRAHIMS PATIENT -FO R-LIFE [facility] Sep 15, 2024 TFL [id number] [phone] Diego IBRAHIM PATIENT Selected Encounter This section includes the information on record at [place] for the Encounter. Date/Time Encounter Type Encounter Description Reason Provider Source Jun 13, 2024 10:30 AM [facility] 6 OR MORE PODIATRY ICD-10-CM B35.1 Tinea unguium NEL GASPAR Encounter Template Text not used by [facility] Assessments - Encounter Diagnoses This section includes the primary and secondary diagnoses documented for the Encounter. Date/Time Primary/Secondary Diagnosis Diagnosis Name Provider Source Jun 13, 2024 11:57 AM PRIMARY Tinea unguium NEL GASPAR [facility] Jun 13, 2024 11:57 AM SECONDARY Type 2 diabetes mellitus without complications NEL GASPAR Plan of Treatment: Future Appointments (+ 6 months) and Future Tests (+/- 45 days) The Plan of Treatment section includes future care activities for the patient from all [place] treatmentfacilities. This section includes future appointments and future orders which are active, pending or scheduled. Future Appointments This section includes appointments that were scheduled to occur 6 months from the date of the Encounter, up to a maximum of 20 appointments. The data comes from all [place] treatment facilities. Appointment Date/Time Appointment Type Appointme nt Facility Name Jun 16, 2024 01:30 PM AM[facility]ULATORY - NONE [facility] Aug 17, 2024 11:15 AM AMBULATORY - NONE [facility] Aug 17, 2024 11:30 AM [facility]ONE [facility] Aug 24, 2024 10:30 AM AMBULATORY - NONE [facility] Aug 31, 2024 02:30 PM AMBULATORY - SURGERY [facility] Nov 15, 2024 11:00 AM AMBULATORY - NONE [facility] Nov 30, 2024 03:00 PM AMBULATORY - SURGERY [facility] Dec 01, 2024 01:00 PM AMBULATORY - NONE [facility] Social History: Smoking Status (Most current) and Tobacco Use (All prior to encounter date) This section includes the most current, and the historical, smoking and tobacco- related health factors from the [place] facility where the Encounter took place. Current Smoking Status This section includes the most current smoking, or tobacco-related health factor, from the [place] facility where the Encounter took place. Date/Time Current Smoking Status Comment Facil ity Mar 13, 2024 03:00 PM VA-TOBACCO FORMER USER [facility] Tobacco Use History This section includes a history of the smoking, or tobacco-related health factors, that were collected on or before the date of the Encounter. The data comes from the [place] facility where the Encounter took place. Date/Time Smoking Status/Tobacco Use Comment [facility] Mar 13, 2024 03:00 PM VA-TOBACCO [...] PM QUIT TOBACCO IN THE LAST 12 [facility] Nov 01, 2012 01:15 PM QUIT TOBACCO >12 MO & <7 YRS AGO [facility] Aug 14, 2011 01:29 PM QUIT TOBACCO >12 MO & <7 YRS AGO [facility] Nov 11, 2010 01:57 PM QUIT TOBACCO >12 MO & <7 YRS AGO [facility] Dec 16, 2009 09:26 AM QUIT TOBACCO IN THE LAST [address] [facility] Advance Directives: All [...] this document. The data comes from all [place] facilities. Date Advance Directives Provider Source Dec 21, 2023 ADVANCE DIRECTIVE DISCUSSION FER MAYS [facility] Encounter Notes: All associated encounter notes This section contains the clinical notes associated to the Encounter. Date/Time Encounter Note(s) Provider Source Jun 13, 2024 11:58 AM NURSING MEDICATION MGT NOTE: LOCAL TITLE: MEDICATION ADMINISTRATION NOTE (T) STANDARD TITLE: NURSING MEDICATION MGT NOTE DATE OF NOTE: JUN 13, 2024@11:58 ENTRY DATE: JUN 13, 2024@11:58:08 AUTHOR: NEL GASPAR COSIGNER: URGENCY: STATUS: COMPLETED Influenza Vaccine Deferral / Refusal The patient declines to receive the recommended dose of seasonal influenza vaccine. Immunization: INFLUENZA, UNSPECIFIED FORMULATION Refusal Reason: PATIENT DECISION Patient refuses all immunization(s) in the FLU group Comment: wants to speak to private pcp prior to vet getting injection Date Documented: 06/13/24 11:59 The following education was provided: Immunization Refusal Education: The patient and/or data entry representative was given the corresponding VIS which lists the benefits and side effects of the vaccine and which reviews the risks of not receiving the vaccine. The VIS was reviewed with the patient and/or data entry representative and they were given an opportunity to ask questions. The patient and/or data entry representative was provided education on how to decrease the risk of infection including social distancing and use of good hand hygiene. The patient and/or data entry representative denied any prior severe reaction to the vaccine or its components. The patient and/or data entry representative declined the vaccine. Return to clinic - as needed /nasra/ NEL GASPAR LICENSED PRACTICAL NURSE Signed: 06/13/2024 12:00 NEL GASPAR [facility] Jun 13, 2024 07:05 AM PODIATRY NURSING O UTPATIENT NOTE: LOCAL TITLE: PODIATRY [facility] NURSING NOTE (T) STANDARD TITLE: PODIATRY NURSING OUTPATIENT NOTE DATE OF NOTE: JUN 13, 2024@07:05 ENTRY DATE: JUN 13, 2024@07:05:44 AUTHOR: NEL GASPAR COSIGNER: URGENCY: STATUS: COMPLETED PODIATRY [facility] NURSING NOTE (T) Has ADDENDA SUBJECTIVE: 83 year old vet ambulated slowly and slightly unsteady into the clinic with his . CHIEF COMPLAINT: Vet here for foot and toenail care, vet is a diabetic, last A1c 7.7 on 03/07/24. Vet denies any pain in his feet [...] this visit. OBJECTIVE: VASCULAR: - DP/PT palpable - CFT < 3 secs b/l - Skin temp from heels to toes warm to warm b/l DERMATOLOGIC: - Nails 2-5 elongated wnl color/thickeness. Hallux nails left foot small spicule noted left posterior corner. Right hallux nail no need of professional debridement. - Web spaces clean and dry b/l - Skin intact, no open lesions or cracking noted. No edema, varicosities or hair noted. NEUROLOGIC: - Protective sensation intact 10/10 checked with [facility]. MUSCULOSKELETAL: - Muscle strength 5/5 in all four quadrants. - ROM within normal limits. - HAV deformity right foot > than [...] 8 Nails debrided and dremeled without incident. Dremeled Left hallux spicule without incident. - Reviewed diabetic foot education with vet - Flu vaccine offered, declined at this time. - RTC in 3 months with podiatry nursing clinic /nasra/ NEL GASPAR LICENSED PRACTICAL NURSE Signed: 06/13/2024 11:57 Receipt Acknowledged By: 06/13/2024 15:26 /nasra/ AQUILES MOISE FOOT GATHERER 06/13/2024 ADDENDUM STATUS: COMPLETED Agree with above assessment and treatment /mary MOISE FOOT GATHERER Signed: 06/13/2024 15:27 NEL GASPAR OC
--- OUTSIDE RECORDS SUMMARY | 2024-07-25 04:17 | XMS_ITS | Encounter Summary ---
Author Name [facility] [place] [facility] [place] Organization [facility] [place] Address [address] [place] [address] Care Team Providers Care Felling Machine Operator Name Role Phone TOMASA VAIL Primary Care Provider Unavailmulticare health e Insurance Providers: All historical and [...] PART A Dec 13, 2007 PART A [id number] [phone] PATRICEDiego SUNSHINES PATIENT MEDICARE (WNR) MEDICARE (M) PART A Dec 13, 2007 PART A [id number] [phone] PATRICE,Diego HOMAS PATIENT MEDICARE (WNR) MEDICARE (M) PART B Dec 13, 2007 PART B [id number] PATRICE,Diego HOMAS PATIENT MEDICARE (WNR) MEDICARE (M) PART B Dec 13, 2007 PART B [id number] [phone] PATRICE,Diego DANGS PATIENT [facility] 2024 TRICA RE SELEC T Sep 13, 2024 SELECT [id number] Diego IBRAHIMS PATIENT -FO R-LIFE [facility] Sep 15, 2024 TFL [id number] Diego IBRAHIM PATIENT Selected Encounter This section includes the information on record at [place] for the Encounter. Date/Time Encounter Type Encounter Description Reason Provider Source Jul 25, 2024 08:17 AM Outpatient Encounter ADMIN PAT ACTIVTIES (MASNONCT) ICD-10-CM Y93.9 Activity, unspecified ERICK MAYSRIA Thorpe IHMaciej Encounter Template Text not used by [place] Assessments - Encounter Diagnoses This section includes the primary and secondary diagnoses documented for the Encounter. Date/Time Primary/Secondary Diagnosis Diagnosis Name Provider Source Jul 25, 2024 08:40 AM PRIMARY Activity, unspecified ERICK MAYSRIA [facility] Plan of Treatment: Future Appointments (+ 6 months) and Future Tests (+/- 45 days) The Plan of Treatment section includes future care activities for the patient from all [place] [facility]. This section includes future appointments and future orders which are active, pending or scheduled. Future Appointments This section includes appointments that were scheduled to occur 6 months from the date of the Encounter, up to a maximum of 20 appointments. The data comes from all [facility]. Appointment Date/Time Appointment Type Appointme nt Facility Name Aug 17, 2024 11:15 AM [facility] Aug 17, 2024 11:30 AM AMBULATORY - NONE [facility] Aug 24, 2024 10:30 AM AMBULATORY - NONE [facility] Aug 31, 2024 02:30 PM AMBULATORY - SURGERY [facility] Nov 15, 2024 11:00 AM AMBULATORY - NONE [facility] Nov 30, 2024 03:00 PM AMBULATORY - SURGERY [facility] Dec 01, 2024 01:00 PM [facility] January 18, 2025 01:00 PM AMBULATORY - NONE [facility] Active, Pending, and Scheduled Orders This section includes a listing of several types of active, pending, and scheduled orders, including clinic medications orders, diagnostic test orders, procedure orders and consult orders; where the start date of the order is 45 days before the date of the Encounter or 45 days after the date of theEncounter. The data comes from all [facility]. Test Date/Time Test Type Test Details Facility Name Aug 16, 2024 12:00 AM Laboratory - Chemi stry Order URINALYSIS URINE, RANDOM SP ONCE [facility] Lab Results: +/- 30 days of the [...] Unit Interpretation Reference Range Specimen Type Comment Aug 17, 2024 12:29 PM [facility] MAGNESIUM PLASMA Specimen Type: PLASMA Comment: DLDLREF RANGE: NEAR OR ABOVE OPTIMAL: 100-129 mg/dL BORDERLINE DLDLHIGH: 130-159 mg/dL HIGH: 160-189 mg/dL VERY HIGH: >=190 TRIG REF RANGE: BORDERLINE HIGH: 150-199 mg/dL HIGH: 200-499 mg/dL TRIG VERY HIGH: >=500 mg/dL CREA eGFR was calculated using the CKD-EPI 2020 equation. CHOL REF RANGE: BORDERLINE HIGH: 200-239 mg/dL HIGH: >=240 mg/dL Ordering Provider: TOMASA VAIL Report Released Date/Time: Aug 16, 2024 04:40 PM Reporting Lab: [address] [phone] Performing Lab: [place] [phone] MAGNESIUM 2.2 mg/dL 1.6-2.6 Aug 17, 2024 12:29 PM [facility] TSH PLASMA Specimen Type: PLASMA Comment: DLDLREF RANGE: NEAR OR ABOVE OPTIMAL: 100-129 mg/dL BORDERLINE DLDLHIGH: 130-159 mg/dL HIGH: 160-189 mg/dL VERY HIGH: >=190 TRIG REF RANGE: BORDERLINE HIGH: 150-199 mg/dL HIGH: 200-499 mg/dL TRIG VERY HIGH: >=500 mg/dL CREA eGFR was calculated using the CKD-EPI 2020 equation. CHOL REF RANGE: BORDERLINE HIGH: 200-239 mg/dL HIGH: >=240 mg/dL Ordering Provider: TOMASA VAIL Report Released Date/Time: Aug 16, 2024 04:40 PM Reporting Lab: [address] [address] Performing Lab: [place] [phone] TSH 4.137 u[IU]/mL 0.360-4.500 Aug 17, 2024 12:29 PM [facility] FREE T4 PLASMA Specimen Type: PLASMA Comment: DLDLREF RANGE: NEAR OR ABOVE OPTIMAL: 100-129 mg/dL BORDERLINE DLDLHIGH: 130-159 mg/dL HIGH: 160-189 mg/dL VERY HIGH: >=190 TRIG REF RANGE: BORDERLINE HIGH: 150-199 mg/dL HIGH: 200-499 mg/dL TRIG VERY HIGH: >=500 mg/dL CREA eGFR was calculated using the CKD-EPI 2020 equation. CHOL REF RANGE: BORDERLINE HIGH: 200-239 mg/dL HIGH: >=240 mg/dL Ordering Provider: TOMASA VAIL Report Released Date/Time: Aug 16, 2024 04:40 PM Reporting Lab: [address] [phone] Performing Lab: [place] [phone] FREE T4 0.97 ng/dL 0.7-1.48 Aug 17, 2024 12:29 PM [facility] LIPID PROFILE PLASMA Specimen Type: PLASMA Comment: DLDLREF RANGE: NEAR OR ABOVE OPTIMAL: 100-129 mg/dL BORDERLINE DLDLHIGH: 130-159 mg/dL HIGH: 160-189 mg/dL VERY HIGH: >=190 TRIG REF RANGE: BORDERLINE HIGH: 150-199 mg/dL HIGH: 200-499 mg/dL TRIG VERY HIGH: >=500 mg/dL CREA eGFR was calculated using the CKD-EPI 2020 equation. CHOL REF RANGE: BORDERLINE HIGH: 200-239 mg/dL HIGH: >=240 mg/dL Ordering Provider: TOMASA VAIL Report Released Date/Time: Aug 16, 2024 04:40 PM Reporting Lab: [address] [phone] Performing Lab: [address] [address] CHOLESTEROL 96 mg/dL <199 LDL CHOLESTEROL 31 mg/dL <99 HDL CHOLESTEROL 34 mg/dL L >60 TRIGLYCERIDE 164 mg/dL H <149 Aug 17, 2024 12:29 PM [facility] VITAMIN D (TOTAL) SERUM Specimen Type : SERUM No comment entered. Ordering Provider: TOMASA VAIL Report Released Date/Time: Aug 16, 2024 04:40 PM Reporting Lab: [place] [phone] Performing Lab: [place] [phone] VITAMIN D (TOTAL) 54.00 ng/mL 30.00-75.0 0 Aug 17, 2024 12:29 PM [facility] HEMOGLOBIN A1C BLOOD Specimen Type: B LOOD Comment: Values obtained from A1C measurements can vary. For typical A1C assays, a reported value of 7.0 could actually be between 6.72 and 7.28 if measured by a reference method. A reported value of 9.0 could actually be between 8.73 and 9.27. Ref: http://www.ngsp.org/CAPdata.asp Ordering Provider: TOMASA VAIL Report Released Date/Time: Aug 16, 2024 04:40 PM Reporting Lab: [place] [phone] Performing Lab: [place] [phone] HEMOGLOBIN A1C 6.3 H 3.6-5.7 Aug 17, 2024 12:29 PM [facility] COMPREHENSIVE METABOLIC PANEL PLASMA S pecimen Type: PLASMA Comment: DLDLREF RANGE: NEAR OR ABOVE OPTIMAL: 100-129 mg/dL BORDERLINE DLDLHIGH: 130-159 mg/dL HIGH: 160-189 mg/dL VERY HIGH: >=190 TRIG REF RANGE: BORDERLINE HIGH: 150-199 mg/dL HIGH: 200-499 mg/dL TRIG VERY HIGH: >=500 mg/dL CREA eGFR was calculated using the CKD-EPI 2020 equation. CHOL REF RANGE: BORDERLINE HIGH: 200-239 mg/dL HIGH: >=240 mg/dL Ordering Provider: TOMASA VAIL Report Released Date/Time: Aug 16, 2024 04:40 PM Reporting Lab: [place] [phone] Performing Lab: [place] [phone] ALBUMIN 3.9 g/dL 3.2-4.6 ALKALINE PHOSPHATASE 67 U/L 40-150 ALT/SGPT 14 U/L <55 AST/SGOT 25 U/L 5-34 BUN 31 mg/dL H 8.4-25.7 CALCIUM 9.1 mg/dL 8.8-10.0 CREATININE 1.5 mg/dL H 0.72-1.25 CO2 30 mmol/L 23-31 GLUCOSE 131 mg/dL H 82-115 PROTEIN, TOTAL 6.6 g/dL 6.4-8.3 SODIUM 142 mmol/L 136-145 CHLORIDE 104 mmol/L 98-107 BILIRUBIN, TOTAL 0.8 mg/dL 0.2-1.2 POTASSIUM 4.6 mmol/L 3.5-5.1 ANION GAP 12.6 mmol/L 10-20 EGFR (CALCULATED) 46.0 mL/min Aug 17, 2024 12:29 PM [facility] CBC BLOOD Specimen Type: BLOOD No comment entered. Ordering Provider: TOMASA VAIL Report Released Date/Time: Aug 16, 2024 04:40 PM Reporting Lab: [address] [phone] Performing Lab: [address] [phone] WBC COUNT 6.1 10*3/uL 3.6-11.0 RBC COUNT 3.44 10*6/uL L 4.47-5.83 HGB 11.7 g/dL L 13.6-17.4 HCT 34.2 L 40.0-51.0 MCV 99.7 fL H 80.0-96.0 MCH 34.0 pg H 27.0-31.0 MCHC 34.1 g/dL 31.5-36.5 PLT 171 10*3/uL 150-400 LYMPHS % 15.5 L 21.0-51.0 MONOCYTES % 10.1 H 4.0-8.0 NUCLEATED RBC/100WBC 0.2 /100{WBCs} RDW 13.2 11.2-15.8 NEUTROPHIL % 72.1 54.0-78.0 EOSINOPHIL % 1.6 0.0-3.0 BASOPHIL % 0.7 0.0-3.0 ABSOLUTE LYMPHOCYTE COUNT 1.0 10*3/uL 0. 8-5.0 ABSOLUTE NEUTROPHIL COUNT 4.4 10*3/uL 1. 9-8.6 ABSOLUTE BASOPHIL COUNT 0.0 10*3/uL 0.0- 0.3 ABSOLUTE MONOCYTE COUNT 0.6 10*3/uL 0.1- 0.9 ABSOLUTE EOSINOPHIL COUNT 0.1 10*3/uL 0. 0-0.3 MPV 8.6 fL 7.4-11.4 Aug 17, 2024 12:29 PM [facility] DIABETIC URINALYSIS PANEL URINE Speci men Type: URINE No comment entered. Ordering Provider: TOMASA VAIL Report Released Date/Time: Aug 16, 2024 04:40 PM Reporting Lab: [address] [phone] Performing Lab: [address] [phone] SPECIFIC GRAVITY 1.014 L 1.016-1.022 URINE GLUCOSE Negative mg/dL Negative URINE PROTEIN Negative mg/dL Negative URINE PH 6.5 5.0-8.0 WBC/HPF 1 /[HPF] <=4 HYALINE CASTS 0-2 H Negative NITRITE, URINE Negative Negative ESTERASE(WBC) 75 H Negative URINE CLARITY Clear Clear URINE BILIRUBIN Negative mg/dL <=0.4 URINE BLOOD Negative mg/dL <0.05 UROBILINOGEN Negative mg/dL <=1 URINE KETONES Negative mg/dL <=9 URINE COLOR Light-Yellow [none] MICROALBUMIN, URINE RANDOM 2 mg/dL <10 CREATININE, URINE RANDOM 84.78 mg/dL MICROALB/CREAT RATIO 23.60 mg/g H <19.9 Social History: Smoking Status (Most current) and Tobacco Use (All prior to encounter date) This section includes the most current, and the historical, smoking and tobacco- related health factors from the [place] facility where the Encounter took place. Current Smoking Status This section includes the most current smoking, or tobacco-related health factor, from the [place] facility where the Encounter took place. Date/Time Current Smoking Status Comment Christina ity Mar 13, 2024 03:00 PM VA-TOBACCO FORMER USER [facility] Tobacco Use History This section includes a history of the smoking, or tobacco-related health factors, that were collected on or before the date of the Encounter. The data comes from the [place] facility where the Encounter took place. Date/Time [...] PM QUIT TOBACCO IN THE LAST 12 [facility] Nov 01, 2012 01:15 PM QUIT TOBACCO >12 MO & <7 YRS AGO [facility] Aug 14, 2011 01:29 PM QUIT TOBACCO >12 MO & <7 YRS AGO [facility] Nov 11, 2010 01:57 PM QUIT TOBACCO >12 MO & <7 YRS AGO [facility] Dec 16, 2009 09:26 AM QUIT TOBACCO IN THE LAST 12 [facility] Advance Directives: All historical and current Section Date Range: From patient's date of to the date document was created. This section includes ALL of a patient's completed or amended VA Advance and Rescinded Directives. The entries below indicate that a directive exists for the patient, but an actual copy is not included with this document. The data comes from all [place] facilities. Date Advance Directives Provider Source Dec 21, 2023 ADVANCE DIRECTIVE DISCUSSION FER MAYS [facility] Encounter Notes: All associated encounter notes This section contains the clinical notes associated to the Encounter. Date/Time Encounter Note(s) Provider Source Jul 25, 2024 08:17 AM SOCIAL WORK NOTE: LOCAL TITLE: SOCIAL WORK PROGRESS NOTE STANDARD TITLE: SOCIAL WORK NOTE DATE OF NOTE: JUL 25, 2024@08:17 ENTRY DATE: JUL 25, 2024@08:17:41 AUTHOR: JAN MAYS EXP COSIGNER: URGENCY: STATUS: COMPLETED Phone call to Dru of [facility] [phone] who reports staffing availability. RUT faxed referral to agency [phone]. Dru reports they can start care today as long as is agreeable, but notes they may not be able to provide all 40 hours to start. SW informed Spouse would appreciate any help available. SW will update consult. Phone call to Spouse Leighann [phone] to inform of consult approval. SW informed [facility] will be providing 's care and will be contacting them to schedule an assessment. Spouse voiced appreciation for this service. SW encouraged Spouse to keep this clinic update with any additional needs. 25 minutes /es/ ALLISON GUERRERO CLINICAL PRODUCTION WELDER Signed: 07/25/2024 08:41 [facility]
--- OUTSIDE RECORDS SUMMARY | 2024-07-27 06:55 | XMS_ITS | Encounter Summary ---
Author Name [facility] [place] Organization [place] Address [address] [place] [address] Care Team Providers Care Relations Director Name Role Phone TOMASA VAIL Primary Care [...] PART A Dec 13, 2007 PART A [id number] Diego IBRAHIMS PATIENT MEDICARE (WNR) MEDICARE (M) PART A Dec 13, 2007 PART A [id number] PATRICE,Diego HOMAS PATIENT MEDICARE (WNR) MEDICARE (M) PART B Dec 13, 2007 PART B [id number] [phone] PATRICE,Diego HOMAS PATIENT MEDICARE (WNR) MEDICARE (M) PART B Dec 13, 2007 PART B [id number] [phone] Diego IBRAHIMS PATIENT [facility] 2024 TRICA RE SELEC T Sep 13, 2024 SELECT [id number] Diego IBRAHIMS PATIENT -FO R-LIFE [facility] Sep 15, 2024 TFL [id number] Diego IBRAHIM PATIENT Selected Encounter This section includes the information on record at [place] for the Encounter. Date/Time Encounter Type Encounter Description Reason Pro vider Source Jul 27, 2024 10:55 AM Outpatient Encounter COMMUNITY CARE CONSULT IHE Encounter Template Text not used by [place] Plan of Treatment: Future Appointments (+ 6 months) and Future Tests (+/- 45 days) The Plan of Treatment section includes future care activities for the patient from all [place] [facility]. This section includes future appointments and future orders which are active, pending or scheduled. Future Appointments This section includes appointments that were scheduled to occur 6 months from the date of the Encounter, up to a maximum of 20 appointments. The data comes from all [facility]. Appointment Date/Time Appointment Type Appointme nt Facility Name Aug 17, 2024 11:15 AM [facility] Aug 17, 2024 11:30 AM [facility]ORY [facility] NONE [facility] Aug 24, 2024 10:30 AM AMBULATORY - NONE [facility] Aug 31, 2024 02:30 PM AMBULATORY - SURGERY [facility] Nov 15, 2024 11:00 AM AMBULATORY - NONE [facility] Nov 30, 2024 03:00 PM AMBULATORY - SURGERY [facility] Dec 01, 2024 01:00 PM AMBULATORY - NONE [facility] January 18, 2025 01:00 PM AMBULATORY NONE [facility] Active, Pending, and Scheduled Orders This section includes a listing of several types of active, pending, and scheduled orders, including clinic medications orders, diagnostic test orders, procedure orders and consult orders; where the start date of the order is 45 days before the date of the Encounter or 45 days after the date of theEncounter. The data comes from all [facility]. Test Date/Time Test Type Test Details Facility Name Aug 16, 2024 12:00 AM Laboratory - Chemi stry Order URINALYSIS URINE, RANDOM SP ONCE [facility] Results: +/- 30 days of the encounter This section includes the Chemistry and Hematology Lab Results on record with [place] for the patient. Radiology Reports and Pathology [...] Aug 16, 2024 04:40 PM Reporting Lab: [place] [phone] Performing Lab: [place] [phone] MAGNESIUM 2.2 mg/dL 1.6-2.6 Aug 17, 2024 [...] Aug 16, 2024 04:40 PM Reporting Lab: [address] [address] Performing Lab: [place] [phone] TSH 4.137 u[IU]/mL 0.360-4.500 Aug 17, 2024 [...] Aug 16, 2024 04:40 PM Reporting Lab: [place] [phone] Performing Lab: [place] [phone] FREE T4 0.97 ng/dL 0.7-1.48 Aug 17, [...] Aug 16, 2024 04:40 PM Reporting Lab: [address] [address] Performing Lab: [place] [phone] CHOLESTEROL 96 mg/dL <199 LDL CHOLESTEROL 31 mg/dL <99 HDL CHOLESTEROL 34 mg/dL L >60 TRIGLYCERIDE 164 mg/dL H <149 Aug 17, 2024 12:29 PM [facility] VITAMIN D (TOTAL) SERUM Specimen Type : SERUM No comment entered. Ordering Provider: TOMASA VAIL Report Released Date/Time: Aug 16, 2024 04:40 PM Reporting Lab: [place] [phone] Performing Lab: [place] [phone] VITAMIN D (TOTAL) 54.00 ng/mL 30.00-75.0 0 Aug 17, 2024 12:29 PM [facility] HEMOGLOBIN A1C BLOOD Specimen Type: B LOOD [...] Aug 16, 2024 04:40 PM Reporting Lab: [place] [phone] Performing Lab: [place] [phone] HEMOGLOBIN A1C 6.3 H 3.6-5.7 Aug 17, 2024 12:29 PM [facility] COMPREHENSIVE METABOLIC PANEL PLASMA S pecimen Type: [...] Aug 16, 2024 04:40 PM Reporting Lab: [place] [phone] Performing Lab: [place] [phone] ALBUMIN 3.9 g/dL 3.2-4.6 ALKALINE PHOSPHATASE 67 [...] Aug 16, 2024 04:40 PM Reporting Lab: [address] [phone] Performing Lab: [place] [phone] WBC COUNT 6.1 10*3/uL 3.6-11.0 RBC COUNT [...] Aug 16, 2024 04:40 PM Reporting Lab: [address] [address] Performing Lab: [facility] [address] [facility] [address] SPECIFIC GRAVITY 1.014 L 1.016-1.022 URINE GLUCOSE [...] mg/dL MICROALB/CREAT RATIO 23.60 mg/g H <19.9 Advance Directives: All historical and current Section Date Range: From patient's date of to the date document was created. This section includes ALL of a patient's completed or amended VA Advance and Rescinded Directives. The entries below indicate that a directive exists for the patient, but an actual copy is not included with this document. The data comes from all [place] facilities. Date Advance Directives Provider Source Dec 21, 2023 ADVANCE DIRECTIVE DISCUSSION FER MAYS [facility] Encounter Notes: All associated encounter notes This section contains the clinical notes associated to the Encounter. Date/Time Encounter Note(s) Provider Source Jul 27, 2024 10:55 AM NONVA CONSULT: LOCAL TITLE: NON VA CARE CONSULT RESULT NOTE STANDARD TITLE: NONVA CONSULT DATE OF NOTE: JUL 27, 2024@10:55 ENTRY DATE: JUL 27, 2024@10:55:45 AUTHOR: SAGE SHOOK EXP COSIGNER: URGENCY: STATUS: COMPLETED The following Non VA Care consult has been completed. 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
--- OUTSIDE RECORDS SUMMARY | 2024-08-17 07:30 | XMS_ITS | Encounter Summary ---
Author Name [facility] [place] Organization [facility] [place] [place] Address [address] [place] [id number] Care Team Providers Care Sales Team Manager Name Role Phone TOMASA AVIL [facility] Insurance Providers: All historical and [...] PART A Dec 13, 2007 PART A [id number] PATRICEDiego SUNSHINES PATIENT MEDICARE (WNR) MEDICARE () PART B Dec 13, 2007 PART B [id number] PATRICE,Diego HOMAS PATIENT MEDICARE (WNR) MEDICARE () PART A Dec 13, 2007 PART A [id number] PATRICE,Diego HOMAS PATIENT MEDICARE (WNR) MEDICARE (M) PART B Dec 13, 2007 PART B PATRICE,Diego DANGS PATIENT [facility] 2024 TRICA RE SELEC T Sep 13, 2024 SELECT [id number] Diego IBRAHIMS PATIENT -FO R-LIFE TRICA RE FOR LIFE Sep 15, 2024 TFL [id number] Diego IBRAHIM PATIENT Selected Encounter This section includes the information on record at [place] for the Encounter. Date/Time Encounter Type Encounter Description Reason Provider Source Aug 17, 2024 11:30 AM MTMS BY ERICK SEGOVIA 15 MIN CLINICAL PHARMACY ICD-10-CM E11.9 Type 2 diabetes mellitus without complications CHRISTIANO SCHULER IHMaciej Encounter Template Text not used by [place] Assessments - Encounter Diagnoses This section includes the primary and secondary diagnoses documented for the Encounter. Date/Time Primary/Secondary Diagnosis Diagnosis Name Provider Source Aug 17, 2024 12:27 PM PRIMARY Type 2 diabetes mellitus without complications CHRISTIANO SCHULER Plan of Treatment: Future Appointments (+ 6 months) and Future Tests (+/- 45 days) The Plan of Treatment section includes future care activities for the patient [facility] [place] [facility] This section includes future appointments and future orders which are active, pending or scheduled. Future Appointments This section includes appointments that were scheduled to occur 6 months from the date of the Encounter, up to a maximum of 20 appointments. The data comes from all [facility]. Appointment Date/Time Appointment Type Appointme nt Facility Name Aug 24, 2024 10:30 AM AMBULATORY - NONE [facility] Aug 31, 2024 02:30 PM AMBULATORY - SURGERY [facility] Nov 15, 2024 11:00 AM AMBULATORY - NONE [facility] Nov 30, 2024 03:00 PM AMBULATORY SURGERY [facility] Dec 01, 2024 01:00 PM AMBULATORY NONE [facility] January 18, 2025 01:00 PM AMBULATORY NONE [facility] Active, Pending, and Scheduled Orders This section includes a listing of several types of active, pending, and scheduled orders, including clinic medications orders, diagnostic test orders, procedure orders and consult orders; where the start date of the order is 45 days before the date of the Encounter or 45 days after the date of theEncounter. The data comes from all [facility]. Test Date/Time Test Type Test Details Facility Name Aug 16, 2024 12:00 AM Laboratory - Chemi juarezy Order URINALYSIS URINE, RANDOM SP ONCE [facility] Lab Results: +/- 30 days of the encounter This section includes the Chemistry and Hematology Lab Results on record with [place] for the patient. Radiology Reports and Pathology [...] Aug 16, 2024 04:40 PM Reporting Lab: [place] [id number] Performing Lab: [place] [id number] TSH 4.137 u[IU]/mL 0.360-4.500 Aug 17, 2024 [...] Aug 16, 2024 04:40 PM Reporting Lab: [place] [id number] Performing Lab: [place] [id number] MAGNESIUM 2.2 mg/dL 1.6-2.6 Aug 17, 2024 [...] Aug 16, 2024 04:40 PM Reporting Lab: [address] [address] Performing Lab: [place] [id number] FREE T4 0.97 ng/dL 0.7-1.48 Aug 17, [...] Aug 16, 2024 04:40 PM Reporting Lab: [address] [address] Performing Lab: [address] [address] CHOLESTEROL 96 mg/dL <199 LDL CHOLESTEROL 31 mg/dL <99 HDL CHOLESTEROL 34 mg/dL L >60 TRIGLYCERIDE 164 mg/dL H <149 Aug 17, 2024 12:29 PM [facility] VITAMIN D (TOTAL) SERUM Specimen Type : SERUM No comment entered. Ordering Provider: TOMASA VAIL Report Released Date/Time: Aug 16, 2024 04:40 PM Reporting Lab: [address] [address] Performing Lab: [address] [address] VITAMIN D (TOTAL) 54.00 ng/mL 30.00-75.0 0 Aug 17, 2024 12:29 PM [facility] HEMOGLOBIN A1C BLOOD Specimen Type: B LOOD [...] Aug 16, 2024 04:40 PM Reporting Lab: [place] [id number] Performing Lab: [place] [id number] HEMOGLOBIN A1C 6.3 H 3.6-5.7 Aug 17, 2024 12:29 PM [facility] COMPREHENSIVE METABOLIC PANEL PLASMA S pecimen Type: [...] Aug 16, 2024 04:40 PM Reporting Lab: [address] [address] Performing Lab: [place] [id number] ALBUMIN 3.9 g/dL 3.2-4.6 ALKALINE PHOSPHATASE 67 [...] mL/min Aug 17, 2024 12:29 PM [facility] CBC BLOOD Specimen Type: BLOOD No comment entered. Ordering Provider: TOMASA VAIL Report Released Date/Time: Aug 16, 2024 04:40 PM Reporting Lab: [address] [address] Performing Lab: [facility] [address] [facility] [address] WBC COUNT 6.1 10*3/uL 3.6-11.0 RBC COUNT [...] Aug 16, 2024 04:40 PM Reporting Lab: [facility] [address] [facility] [address] Performing Lab: [facility] [id number] [place] [id number] SPECIFIC GRAVITY 1.014 L 1.016-1.022 URINE GLUCOSE [...] PM VA-TOBACCO QUIT 15 YRS OR MORE [facility] Jul 27, 2019 01:37 PM VA-TOBACCO [...] PM QUIT TOBACCO IN THE LAST 12 [facility] Nov 01, 2012 01:15 PM QUIT TOBACCO >12 MO & <7 YRS AGO [facility] Aug 14, 2011 01:29 PM QUIT TOBACCO >12 MO & <7 YRS AGO [facility] Nov 11, 2010 01:57 PM QUIT TOBACCO >12 MO & <7 YRS AGO [facility] Dec 16, 2009 09:26 AM QUIT TOBACCO IN THE LAST 12 [facility] Advance Directives: All historical and [...] the Encounter. Date/Time Encounter Note(s) Provider Source Aug 17, 2024 11:42 AM PHARMACY OUTPATIENT NOTE: LOCAL TITLE: PACT PHARMACY NOTE (T) STANDARD TITLE: PHARMACY OUTPATIENT NOTE DATE OF NOTE: AUG 17, 2024@11:42 ENTRY DATE: AUG 17, 2024@11:42:40 AUTHOR: GANGA,CHRISTIANO BRENDA EXP COSIGNER: URGENCY: STATUS: COMPLETED SUBJECTIVE: The patient is a 83 year old MALE returning to PharmD clinic for DM -INTERIM HISTORY: Routine f/u today for mike download coordinated w/ labs. No changes last visit, time in range at goal w/o lows. -SOCIAL SUPPORT: Lives with who answers half of questions asked -MEDICATION MANAGEMENT: DIABETES: 1. insulin glargine-yfgn 16 units 2. Mike 3 (reader) -HYPOGLYCEMIA: - patient was having some low sugars, notes patient was not eating as much so they've increased his meal intake and it's been getting better - 2 low alarms in the past 2 mo, 1 right after new sensor and apperas possible compression low - ate BF one AM of lower one; reminded of quick acting sugar and glucose comparison checks - has regular soda in the house -NUTRITION: -- rx'd Ensure BID, pt taking only once daily; also boght Boost and Glucerna; advised no significant PP elevations after Ensure, usually around 200 but comes back down, no need for lower CHO options at this time -ACTIVITY: - limited, uses walker - slowing down more d/t parkinsons but reports approved for motorized scooter PATIENT ALLERGIES DETAILED ALLERGIES/ADVERSE REACTIONS Type: DRUG [...] BLOOD SUGAR TESTING; FOR MIKE COMPARISON 2) BRIEF,TRANQUILITY LARGE #[id number] USE BRIEF SUPPLY ACTIVE ITEM DIRECTED FOR INCONTINENCE 3) CALCIUM 500MG/VITAMIN D 200 UNT TAB TAKE 1 TABLET BY ACTIVE (S) MOUTH TWICE A DAY WITH MEALS 4) CARBOXYMETHYLCELLULOSE NA 0.5% OPH SOLN INSTILL 1 ACTIVE DROP IN EACH EYE THREE TIMES A DAY FOR DRY AND/OR IRRITATED EYE(S) 5) CHOLECALCIF 25MCG (D3-1,000UNIT) TAB TAKE THREE ACTIVE TABLETS BY MOUTH EVERY DAY FOR VITAMIN D DEFICIENCY 6) CLEANSING CLOTH ATTENDS PKT USE WASHCLOTH(S) SUPPLY ACTIVE ITEM NEEDED 7) FERROUS SULFATE 325MG TAB TAKE ONE TABLET BY MOUTH ACTIVE EVERY DAY (AN HOUR BEFORE OR TWO HOURS AFTER A MEAL; TAKE WITH FOOD IF THIS UPSETS YOUR STOMACH) 8) FUROSEMIDE 20MG TAB TAKE ONE TABLET BY MOUTH EVERY ACTIVE DAY 9) GLUCOSE SENSOR FREESTYLE MIKE 3 USE GLUCOSE SENSOR ACTIVE SUPPLY ITEM DIRECTED FOR DIABETES FOR REPLACEMENT SENSORS CALL [phone]; FOR REFILLS CALL 10) INSULIN,GLARGINE-YFGN 100UNIT/ML PEN 3ML INJECT 16 ACTIVE UNITS SUBCUTANEOUSLY EVERY DAY FOR DIABETES (DISCARD PEN 28 DAYS AFTER FIRST USE) (REPLACES ODOM LANTUS PENS) 11) MAGNESIUM OXIDE 420MG TAB TAKE ONE TABLET BY MOUTH ACTIVE EVERY DAY 12) MULTIVITS W/MINERALS TAB/CAP (NO VIT K) TAKE 1 TABLET ACTIVE BY MOUTH EVERY DAY 13) NEEDLE,PEN 31G,5MM USE NEEDLE SUPPLY ITEM DIRECTED HOLD 14) NUTRITION SUPL ENSURE PLUS/VANILLA LIQ TAKE THE ACTIVE CONTENTS OF 1 CAN BY MOUTH TWICE A DAY FOR NUTRITION SUPPLEMENTATION 15) POISE PAD,MAXIMUM ABSORB EXTRA COVERAGE USE PADS ACTIVE SUPPLY ITEM DIRECTED 16) POTASSIUM CHLORIDE 10MEQ SA TAB TAKE ONE TABLET BY ACTIVE MOUTH EVERY DAY (WITH FOOD) 17) TAMSULOSIN HCL 0.4MG CAP TAKE ONE CAPSULE BY MOUTH ACTIVE EVERY EVENING, WITH DINNER FOR PROSTATE 18) UNDERPAD,BED 23IN X 36IN PLASTIC BACK USE PAD(S) ACTIVE SUPPLY ITEM DIRECTED Inactive Outpatient Medications Status ======= 1) LORATADINE 10MG TAB TAKE ONE TABLET BY MOUTH EVERY DAY NEEDED FOR ALLERGIES (WITH FOOD) Active Non-[place] Medications Status ======= 1) Non-VA [...] Total Medications OBJECTIVE Measurement DT WEIGHT LB(KG)[BMI] States home weight yesterday was 182 lbs 06/16/2024 13:39 182(82.55)[29*] 03/13/2024 15:08 189.6(86.00)[30*] 02/16/2024 13:26 182(82.55)[29*] 12/08/2023 15:10 186.8(84.73)[29*] 09/14/2023 15:36 192.4(87.27)[30*] VITALS: Measurement DT PULSE 03/13/2024 15:08 82 09/14/2023 15:36 87 03/02/2023 15:28 83 08/31/2022 15:20 86 01/13/2022 14:24 78 BP (Date Time) 124/69 (03/13/2024 15:13) 132/72 [...] PLASMA BUN 28 H mg/dL 9 - 03/07/2024 11:29 PLASMA CALCIUM 9.1 mg/dL 8.7 [...] 0.0 - 19.9 Creatinine Clearance: Est. CRCL 39.7 mL/min03/07/24 TSH/T4: ..TSH: 2.047 (05/25/13 11:08) SERUM .TSH: 1.800 (12/16/09 10:35) SERUM TSH: 2.540 (08/03/22 11:26) PLASMA FT4: No data available URIC ACID: URIC ACID: No data available HOME MONITORING: Home BG Readings: Name: Yoana Ibrahim Date of : 1940 Report Period: 06/19/2024 - 08/17/2024 (60 days) Generated: 08/17/2024 % Time CGM Active: 49% Glucose Statistics and Targets Average Glucose: 146 mg/dL Glucose Management Indicator (GMI): 6.8% Glucose Variability (%CV): 29.6% Target Range: 70 - 180 mg/dL Time in Ranges Very High: >250 mg/dL --- 3% High: 181 - 250 mg/dL --- 18% Target Range: 70 - 180 mg/dL --- 78% Low: 54 - 69 mg/dL --- 1% Very Low: <54 mg/dL --- 0% Libreview not pulling in full data Per [place] Data: 30 days Above: 16% In: 83% Below: 1% Sensor active: 97% Clinical Reminders Activity PBM PharmD Pharmacotherapy Rem V12: PHARMACIST INTERVENTIONS: TYPE 2 DIABETES MELLITUS Time in rnage well above goal >50% relaxed for age, comorbidities, and dementia. Pt w/ a few low alarms, has not done glucose comparison checks. Patient with lower appetite where lower readings more common, hx TIR close to 50% but with more recent trend, will lower glargine again today. Historically has called in w/ concerns elevated glucose, continue to reinforce rare readings >250 and pt continues to return to normal range, reinforce as long as readings back in range and not staying >250 consistently, and time in range >50%, patient meeeting goals. Reinforced for to call if hypoglycemia issues. Small reduction given glucose elevatins in past w/ retitration. Have discussed alt tx intervnetions to insulin in past visits (see 06/12/24 note), pt/ decline. Medication Intervention(s) Adjust dose or frequency of current medication due to hypoglycemia - DECREASE insulin glargine to 14 units daily Medications reconciled and discussed with patient/caregiver. Patient/caregiver [...] of the mind). Return for follow-up labs: today RTC to see Pharmacy Clinic: 3 mo phone Future Appointments Aug@10:30 [facility] PACT 1 MD Margot HWANG PRIMARY CARE PACT 1 DOCTOR NENA Aug@14:30 [facility] PODIATRY NURSE - [facility] --- Recall Reminders --- Time spent with patient = 30 minutes. /nasra/ CHRISTIANO SCHULER CLINICAL ELIGIBILITY MANAGER Signed: 08/17/2024 12:27 CHRISTIANO SCHULER [facility]
--- OUTSIDE RECORDS SUMMARY | 2024-08-24 06:30 | XMS_ITS | Encounter Summary ---
Author Name [facility] [place] Address [address] [place] [address] Care Team Providers Care Solar Sales Representative And Assessor Name Role Phone TOMASA VAIL [facility] Insurance Providers: All historical and current Section [...] PART A Dec 13, 2007 PART A [id number] A Diego IBRAHIMS PATIENT MEDICARE (WNR) MEDICARE () PART B Dec 13, 2007 PART B [id number] A PATRICE,Diego DANGS PATIENT MEDICARE (WNR) MEDICARE () PART A Dec 13, 2007 PART A [id number] PATRICE,Diego HOMAS PATIENT MEDICARE (WNR) MEDICARE (M) PART B Dec 13, 2007 PART B [id number] PATRICEDiegoS PATIENT [facility] 2024 TRICA RE SELEC T Sep 13, 2024 SELECT [id number] Diego IBRAHIMS PATIENT -FO R-LIFE [facility] Sep 15, 2024 TFL [id number] Diego IBRAHIM PATIENT Selected Encounter This section includes the information on record at [place] for the Encounter. Date/Time Encounter Type Encounter Description Reason Provider Source Aug 24, 2024 10:30 AM OFFICE O/P EST MOD 30 MIN PRIMARY CARE/MEDICINE ICD-10-CM I25.10 Athscl heart disease of [place] coronary artery w/o ang pctrs TOMASA VAIL Maciej Encounter Template Text not used by [place] Assessments - Encounter Diagnoses This section includes the primary and secondary diagnoses documented for the Encounter. 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 TOMASA Noel [facility] Aug 30, 2024 01:51 PM SECONDARY Chronic atrial fibrillation, unspecified TOMASA VAIL [facility] Aug 30, 2024 01:51 PM SECONDARY Narcolepsy without cataplexy TOMASA VAIL [facility] Aug 30, 2024 01:51 PM SECONDARY Obstructive sleep apnea (adult) (pediatric) TOMASA VAIL [facility] Aug 30, 2024 01:51 PM SECONDARY Personal history of malignant neoplasm of prostate TOMASA VAIL [facility] Aug 30, 2024 01:51 PM SECONDARY Post-traumatic stress disorder, chronic TOMASA VAIL [facility] Aug 30, 2024 01:51 PM SECONDARY Type 2 diabetes mellitus without complications TOMASA VAIL [facility] Plan of Treatment: Future Appointments (+ 6 months) and Future Tests (+/- 45 days) The Plan of Treatment section includes future care activities for the patient from all [place] [facility]. This section includes future appointments and future orders which are active, pending or scheduled. Future Appointments This section includes appointments that were scheduled to occur 6 months from the date of the Encounter, up to a maximum of 20 appointments. The data comes from all [place] treatment facilities. Appointment Date/Time Appointment Type Appointme nt Facility Name Aug 31, 2024 02:30 PM AMBULATORY - SURGERY [facility] Nov 15, 2024 11:00 AM AMBULATORY - NONE RINKU Barrientos [facility] Nov 30, 2024 03:00 PM AMBULATORY - SURGERY [facility] Dec 01, 2024 01:00 PM AMBULATORY - NONE [place] [facility] January 18, 2025 01:00 PM AMBULATORY - NONE [place] [facility] Feb 16, 2025 11:00 AM AMBULATORY - NONE [facility] Active, Pending, and Scheduled Orders This section includes a listing of several types of active, pending, and scheduled orders, including clinic medications orders, diagnostic test orders, procedure orders and consult orders; where the start date of the order is 45 days before the date of the Encounter or 45 days after the date of theEncounter. The data comes from all [place] treatment facilities. Test Date/Time Test Type Test Details Facility Name Aug 16, 2024 12:00 AM Laboratory - Chemi stry Order URINALYSIS URINE, RANDOM SP ONCE [facility] Lab Results: +/- 30 days of the encounter This section includes the Chemistry and Hematology Lab Results on record with [place] for the patient. Radiology Reports and Pathology Reports are provided separately, in subsequent sections. Lab Results This section contains the Chemistry/Hematology Results that were resulted 30 days before or 30 daysafter the date of the Encounter. Date/Time Source Result Type Result - Unit Interpretation Reference Range Specimen Type Comment Aug 17, 2024 12:29 PM [facility] COMPREHENSIVE METABOLIC PANEL PLASMA Specimen Type: PLASMA Comment: DLDLREF RANGE: [...] Aug 16, 2024 04:40 PM Reporting Lab: [facility] [id number] [facility] [phone] Performing Lab: [facility] [id number] [place] [address] ALBUMIN 3.9 g/dL 3.2-4.6 ALKALINE PHOSPHATASE 67 [...] Aug 16, 2024 04:40 PM Reporting Lab: [address] [address] Performing Lab: [address] [address] WBC COUNT 6.1 10*3/uL 3.6-11.0 RBC COUNT [...] Aug 16, 2024 04:40 PM Reporting Lab: [address] [address] Performing Lab: [place] [id number] CHOLESTEROL 96 mg/dL <199 LDL CHOLESTEROL 31 [...] Aug 16, 2024 04:40 PM Reporting Lab: [address] [address] Performing Lab: [place] [phone] MAGNESIUM 2.2 mg/dL 1.6-2.6 Aug 17, 2024 [...] 2024 04:40 PM Reporting Lab: [place] [phone] Performing Lab: [place] [id number] TSH 4.137 u[IU]/mL 0.360-4.500 Aug 17, 2024 [...] 2024 04:40 PM Reporting Lab: [place] [phone] Performing Lab: [place] [id number] FREE T4 0.97 ng/dL 0.7-1.48 Aug 17, 2024 12:29 PM [facility] VITAMIN D (TOTAL) SERUM Specimen Type : SERUM No comment entered. Ordering Provider: TOMASA VAIL Report Released Date/Time: Aug 16, 2024 04:40 PM Reporting Lab: [place] [phone] Performing Lab: [place] [phone] VITAMIN D (TOTAL) 54.00 ng/mL 30.00-75.0 0 [...] Aug 16, 2024 04:40 PM Reporting Lab: [address] [address] Performing Lab: [address] [address] HEMOGLOBIN A1C 6.3 H 3.6-5.7 Aug 17, 2024 12:29 PM [facility] DIABETIC URINALYSIS PANEL URINE Speci men Type: URINE No comment entered. Ordering Provider: TOMASA VAIL Report Released Date/Time: Aug 16, 2024 04:40 PM Reporting Lab: [address] [address] Performing Lab: [address] [address] SPECIFIC GRAVITY 1.014 L 1.016-1.022 URINE GLUCOSE [...] and tobacco- related health factors from the [place] facility where the Encounter took place. Current Smoking Status This section includes the most current smoking, or tobacco-related health factor, from the [place] facility where the Encounter took place. Date/Time Current Smoking Status Comment Facil ne Mar 13, 2024 03:00 PM VA-TOBACCO FORMER USER [facility] Tobacco Use History This section includes a history of the smoking, or tobacco-related health factors, that were collected on or before the date of the Encounter. The data comes from the [place] facility where the Encounter took place. Date/Time Smoking Status/Tobacco Use Comment Osvaldo acrebecca Mar 13, 2024 03:00 PM VA-TOBACCO QUIT [...] PM QUIT TOBACCO IN THE LAST 12 [facility] Nov 01, 2012 01:15 PM QUIT TOBACCO >12 MO & <7 YRS AGO [facility] Aug 14, 2011 01:29 PM QUIT TOBACCO >12 MO & <7 YRS AGO [facility] Nov 11, 2010 01:57 PM QUIT TOBACCO >12 MO & <7 YRS AGO [facility] Dec 16, 2009 09:26 AM QUIT TOBACCO IN THE LAST 12 [facility] Advance Directives: All [...] this document. The data comes from all [place] facilities. Date Advance Directives Provider Source Dec 21, 2023 ADVANCE DIRECTIVE DISCUSSION FER MAYS [facility] Encounter Notes: All associated encounter notes This section contains the clinical notes associated to the Encounter. 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- DR BISWAS FOR MH - DR GILLIS FOR DERM - SEES DR SAL FOR HIS PANCREASE- DR SCHWAB IS HIS PCP - SEES EXECUTIVE UROLOGY FOR PROSTATE CANCER - HIS BALANCE HAS GOTTEN WORSE REVIEW OF SYSTEMS: GI: DENIES ABDOMINAL PAIN,GERD, CONSTIPATION,DIARRHEA OR RECTAL BLEEDING - : DENIES DYSURIA OR HEMATURIA- CARDIAC; DENIES CHEST PAIN,PALPATATIONS ,ORTHOPNEA OR PEDAL [...] BLOOD SUGAR TESTING; FOR CECILLE COMPARISON 2) BRIEF,TRANQUILITY LARGE #[id number] USE BRIEF SUPPLY ACTIVE ITEM DIRECTED FOR [...] EVERY ACTIVE DAY 9) GLUCOSE SENSOR FREESTYLE CECILLE 3 USE GLUCOSE SENSOR ACTIVE SUPPLY ITEM DIRECTED FOR DIABETES FOR REPLACEMENT SENSORS CALL [phone]; FOR REFILLS CALL 10) INSULIN,GLARGINE-YFGN 100UNIT/ML PEN 3ML INJECT 14 ACTIVE UNITS SUBCUTANEOUSLY EVERY DAY FOR DIABETES [...] Total Medications PHYSICAL EXAM: Vital Signs: T: 97.6 F [36.4 C] (08/24/2024 10:34) P: 61 (08/24/2024 10:34) R: 16 (08/24/2024 10:34) BP: 135/73 (08/24/2024 10:34) Pain: 7 (08/24/2024 10:31) Height: 67 in [170.2 cm] (03/13/2024 15:08) Weight: 186.6 lb [84.64 kg] (08/24/2024 10:34) Pulse Ox: 95% (08/24/2024 10:34) GENERAL: ALERT- ORIENTED X 4- NO DISTRESS LABS: REVIEWED WITH THE PATIENT: A1C WAS 6.3- HGB 11.7- CREATININE 1.5 WITH EGFR 46 - REST OK HEAD, EARS ,EYES,NOSE AND THROAT- NORMOCEPHALIC ,VALERIE,EOMI, ENT NEG NECK: SUPPLE WITHOUT MASSES OR BRUITS CHEST/LUNG: CHEST SYMETRICAL- LUNGS CLEAR CARDIOVASCULAR : HEART IRR WITHOUT MURMUR GASTROINTESTINAL: ABDOMEN SOFT WITHOUT MASSES OR BRUITS EXTREMITIES; NO EDEMA NEURO: CN II-XII GROSSLY INTACT - NO TREMORS OR ABNORMAL MOVEMENTS ASSESSMENT/PLAN:CAD/ ATRIAL FIB/PACEMAKER/ICD- [facility]- PHARM D PANCREATIC INSUFFICIENCY - DR SAL SPINAL STENOSIS HERBIE 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 VA prescription medications, non-VA prescription medications, OTC and herbal medications reviewed: Patient/caregiver verifies that the list is complete and accurate and voices understanding. Patient/caregiver in possession of printed medication list. FOLLOW-UP: RTC IN 6 MONTHS WITH LABS I am the Attending Physician. TOTAL TIME SPENT: Spent 30 minutes in care of this patient today including review of records, exam, and placing orders. /nasra/ TOMASA VAIL PHYSICIAN Signed: 08/30/2024 13:51 TOMASA VAIL [facility] Aug 24, 2024 10:30 AM PRIMARY CARE NURSI VANDANA NOTE: LOCAL TITLE: OUTPATIENT NURSING INTAKE NOTE (T) STANDARD TITLE: PRIMARY CARE NURSING NOTE DATE OF NOTE: AUG 24, 2024@10:30 ENTRY DATE: AUG 24, 2024@10:30:19 AUTHOR: FARHAD FISCHER COSIGNER: URGENCY: STATUS: COMPLETED Hemoglobin A1C Results: Collection DT Specimen Test Name Result Units Ref Range 08/17/2024 12:15 BLOOD HEMOGLOBIN A1C 6.3 H % 3.6 - 5.7 Comment: Values obtained from A1C measurements can vary. For typical A1C Comment: assays, a reported value of 7.0 could actually be between 6.72 and Comment: 7.28 if measured by a reference method. A reported value of 9.0 Comment: could actually be between 8.73 and 9.27. Ref: Comment: http://www.ngsp.org/CAPdata.asp 03/07/2024 11:29 BLOOD HEMOGLOBIN A1C 7.7 H [...] between 8.73 and 9.27. Ref: Comment: http://www.ngsp.org/CAPdata.asp Review Allergies Allergies reviewed and updated per [...] problems with drugs and/or alcohol? No 5. [place] [facility] pocket card was provided to patient. No/patient declined [facility] not documented this visit. Clinical Reminders Activity Pain, Brief Evaluation: Type of pain: Ongoing Location: Low Back Intensity: Currently: 7 Description of Pain: Aching Patient Education Documentation: LEARNING NEEDS ASSESSMENT: The patient/family/significant other reports no changes in learning needs. RSV Immunization: Respiratory Syncytial Virus (RSV) Vaccine: Refused [employer] (Abrysvo, RSVpreF vaccine). Immunization: RSV, BIVALENT, PROTEIN SUBUNIT RSVPREF, DILUENT RECONSTITUTED, 0.5 ML, PF Refusal Reason: PATIENT DECISION Patient refuses all immunization(s) in the RSV group Date Documented: 08/24/24 10:32 Td / Tdap Immunization: The patient declines to receive the recommended dose of Td/Tdap vaccine. Immunization: TD(ADULT) UNSPECIFIED FORMULATION Refusal Reason: PATIENT DECISION Patient refuses all immunization(s) in the Td group Date Documented: 08/24/24 10:32 Influenza Immunization: Deferral / Refusal The patient declines to receive the recommended dose of seasonal influenza vaccine. Immunization: INFLUENZA, UNSPECIFIED FORMULATION Refusal Reason: PATIENT DECISION Patient refuses all immunization(s) in the FLU group Date Documented: 08/24/24 10:32 COVID-19 Immunization: Refused Pfizer Monovalent COVID-19 vaccine Immunization: COVID-19 (PFIZER), MRNA, LNP-S, PF, ROSE MARIE-SUCROSE, 30 MCG/0.3 ML (AGES 12+ YEARS) Refusal Reason: PATIENT DECISION Patient refuses all immunization(s) in the COVID-19 group Date Documented: 08/24/24 10:33 /nasra/ FARHAD FISCHER LICENSED PRACTICAL NURSE Signed: 08/24/2024 10:44 FARHAD FISCHER OC
--- OUTSIDE RECORDS SUMMARY | 2024-08-31 10:30 | XMS_ITS | Encounter Summary ---
Author Name [facility] [place] Address [address] [place] [id number] Care Team Providers Care Change Manager Name Role Phone TOMASA VAIL Primary Care Provider [facility] Insurance Providers: All historical and current [...] PART A Dec 13, 2007 PART A [id number] Diego IBRAHIMS PATIENT MEDICARE (WNR) MEDICARE () PART A Dec 13, 2007 PART A [id number] PATRICE,Diego HOMAS PATIENT MEDICARE (WNR) MEDICARE () PART B Dec 13, 2007 PART B [id number] PATRICE,Diego HOMAS PATIENT MEDICARE (WNR) MEDICARE (M) PART B Dec 13, 2007 PART B [id number] [phone] Diego IBRAHIMS PATIENT [facility] 2024 TRICA RE SELEC T Sep 13, 2024 [facility] [id number] Diego IBRAHIMS PATIENT -FO R-LIFE [facility] Sep 15, 2024 TFL [id number] Diego IBRAHIM PATIENT Selected Encounter This section includes the information on record at [place] for the Encounter. Date/Time Encounter Type Encounter Description Reason Provider Source Aug 31, 2024 02:30 PM DEBRIDE NAIL 6 OR MORE PODIATRY ICD-10-CM E11.9 Type 2 diabetes mellitus without complications NEL GASPAR Encounter Template Text not used by [place] Assessments - Encounter Diagnoses This section includes the primary and secondary diagnoses documented for the Encounter. Date/Time Primary/Secondary Diagnosis Diagnosis Name Provider Source Aug 31, 2024 03:15 PM PRIMARY Type 2 diabetes mellitus without complications NEL GASPAR Aug 31, 2024 03:15 PM SECONDARY Tinea unguium NEL GASPAR Plan of Treatment: Future Appointments (+ 6 months) and Future Tests (+/- 45 days) The Plan of Treatment section includes future care activities for the patient from all [place] [facility] This section includes future appointments and future orders which are active, pending or scheduled. Future Appointments This section includes appointments that were scheduled to occur 6 months from the date of the Encounter, up to a maximum of 20 appointments. The data comes from all [facility]. Appointment Date/Time Appointment Type Appointme nt Facility Name Nov 15, 2024 11:00 AM AMBULATORY - NONE [facility] Nov 30, 2024 03:00 PM AMBULATORY - SURGERY [facility] Dec 01, 2024 01:00 PM AMBULATORY - NONE [facility] January 18, 2025 01:00 PM AMBULATORY NONE [facility] Feb 16, 2025 11:00 AM AMBULATORY NONE [facility] Feb 23, 2025 01:00 PM AMBULATORY - NONE [facility] Feb 27, 2025 01:[address] [facility] SURGERY [facility] Active, Pending, and Scheduled Orders This section includes a listing of several types of active, pending, and scheduled orders, including clinic medications orders, diagnostic test orders, procedure orders and consult orders; where the start date of the order is 45 days before the date of the Encounter or 45 days after the date of theEncounter. The data comes from all [facility]. Test Date/Time Test Type Test Details Facility [...] Aug 16, 2024 04:40 PM Reporting Lab: [place] [id number] Performing Lab: [place] [phone] MAGNESIUM 2.2 mg/dL 1.6-2.6 Aug 17, 2024 [...] Aug 16, 2024 04:40 PM Reporting Lab: [address] [address] Performing Lab: [place] [phone] TSH 4.137 u[IU]/mL 0.360-4.500 Aug 17, 2024 [...] Aug 16, 2024 04:40 PM Reporting Lab: [address] [address] Performing Lab: [place] [phone] FREE T4 0.97 ng/dL 0.7-1.48 Aug 17, [...] Aug 16, 2024 04:40 PM Reporting Lab: [address] [address] Performing Lab: [address] [address] CHOLESTEROL 96 mg/dL <199 LDL CHOLESTEROL 31 mg/dL <99 HDL CHOLESTEROL 34 mg/dL L >60 TRIGLYCERIDE 164 mg/dL H <149 Aug 17, 2024 12:29 PM [facility] VITAMIN D (TOTAL) SERUM Specimen Type : SERUM No comment entered. Ordering Provider: TOMASA VAIL Report Released Date/Time: Aug 16, 2024 04:40 PM Reporting Lab: [address] [address] Performing Lab: [place] [phone] VITAMIN D (TOTAL) 54.00 ng/mL 30.00-75.0 0 Aug 17, 2024 12:29 PM [facility] HEMOGLOBIN A1C BLOOD Specimen Type: B LOOD [...] Aug 16, 2024 04:40 PM Reporting Lab: [address] [address] Performing Lab: [place] [phone] HEMOGLOBIN A1C 6.3 H 3.6-5.7 Aug 17, 2024 12:29 PM [facility] COMPREHENSIVE METABOLIC PANEL PLASMA S pecimen Type: [...] Aug 16, 2024 04:40 PM Reporting Lab: [address] [address] Performing Lab: [place] [phone] ALBUMIN 3.9 g/dL 3.2-4.6 ALKALINE PHOSPHATASE 67 [...] mL/min Aug 17, 2024 12:29 PM [facility] CBC BLOOD Specimen Type: BLOOD No comment entered. Ordering Provider: TOMASA VAIL Report Released Date/Time: Aug 16, 2024 04:40 PM Reporting Lab: [address] [address] Performing Lab: [address] [address] WBC COUNT 6.1 10*3/uL 3.6-11.0 RBC COUNT [...] Aug 16, 2024 04:40 PM Reporting Lab: [facility] [id number] [place] [address] Performing Lab: [address] [address] SPECIFIC GRAVITY 1.014 L 1.016-1.022 URINE GLUCOSE [...] and tobacco- related health factors from the [place] facility where the Encounter took place. Current Smoking Status This section includes the most current smoking, or tobacco-related health factor, from the [place] facility where the Encounter took place. Date/Time Current Smoking Status Comment Facil ity Mar 13, 2024 03:00 PM VA-TOBACCO FORMER USER [facility] Tobacco Use History This section includes a history of the smoking, or tobacco-related health factors, that were collected on or before the date of the Encounter. The data comes from the [place] facility where the Encounter took place. Date/Time [...] PM QUIT TOBACCO IN THE LAST 12 [facility] Nov 01, 2012 01:15 PM QUIT TOBACCO >12 MO & <7 YRS AGO [facility] Aug 14, 2011 01:29 PM QUIT TOBACCO >12 MO & <7 YRS AGO [facility] Nov 11, 2010 01:57 PM QUIT TOBACCO >12 MO & <7 YRS AGO [facility] Dec 16, 2009 09:26 AM QUIT TOBACCO IN THE LAST 12 [facility] Advance Directives: All historical and current Section Date Range: From patient's date of to the date document was created. This section includes ALL of a patient's completed or amended [place] Advance and Rescinded Directives. The entries below indicate that a directive exists for the patient, but an actual copy is not included with this document. The data comes from all [place] facilities. Date Advance Directives Provider Source Dec 21, 2023 ADVANCE DIRECTIVE DISCUSSION FER MAYS [facility] Encounter Notes: All associated encounter notes This section contains the clinical notes associated to the Encounter. Date/Time Encounter Note(s) Provider Source Aug 31, 2024 07:41 AM PODIATRY NURSING O UTPATIENT NOTE: LOCAL TITLE: PODIATRY [facility]OC NURSING NOTE (T) STANDARD TITLE: PODIATRY NURSING OUTPATIENT NOTE DATE OF NOTE: AUG 31, 2024@07:41 ENTRY DATE: AUG 31, 2024@07:41:20 AUTHOR: NEL GASPAR COSIGNER: URGENCY: STATUS: COMPLETED PODIATRY [facility] NURSING NOTE (T) Has ADDENDA SUBJECTIVE: 83 year old vet entered clinicin a wheelchair with his . Vet able to transfer to lithograph press feeder chair with minimal assistance. CHIEF COMPLAINT: Vet here for foot and toenail care. Vet is a diabetic, last A1c 6.3 on 08/17/24. Vet denies any pain in his feet or ankles today. did mention he has had increase in swelling in his feet/ankles. Has an appt with hot air furnace installer repairer tomorrow to discuss issue. States had a hard time getting shoes on vet, had to choose an older pair to fit him. Review Allergies Allergies reviewed and updated per protocol. ALLERGIES/ADVERSE REACTIONS Type: DRUG Date/Time Reactant Severity Reaction 03/05/2015 14:26 VICTOZA 2-AVIS UNKNOWN 03/05/2015 14:25 INVOKANA UNKNOWN 03/05/2015 14:25 BYETTA UNKNOWN 08/22/2010 11:41 DEMEROL EDEMA OF ARM 12/16/2009 09:27 [place] UNKNOWN 12/16/2009 09:26 CODEINE UNKNOWN MEDICATION LIST REVIEW REPORT Patient states no change in documented OTC/Herbals at this visit. OBJECTIVE: VASCULAR: - DP/Pt palpable b/l - CFT < 2 secs b/l - Skin temp from heels to toes warm to warm b/l DERMATOLOGIC: - Nails 2-5 b/l elongated, thickened and slightly discolored. Hallux nails b/l thickened, elongated and discolored. - Web space clean and dry b/l - Skin intact, no open lesions or cracking noted. No hair or varicosities but +2 edema noted b/l ankle area. NEUROLOGIC: - Protective sensation MUSCULOSKELETAL: - Muscle strength deminished 4/5 b/l with plantaflexion 3/5 with dorsiflexion/inversion and eversion. 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 Moise examined the patient, was consulted, and directed care of this patient. Treatment today consisted of: - 10 nails debrided and dremeled without incident - New toe spacer large given to as needed. - Advised if swelling presist once vet visits his hot air furnace installer repairer will inform lithograph press feeder for possible remeasurement of vet's shoes by prosthetics. - Reviewed diabetic foot education with vet - RTC in 3 months with lithograph press feeder. /nasra/ NEL GASPAR LICENSED PRACTICAL NURSE Signed: 08/31/2024 15:15 Receipt Acknowledged By: 08/31/2024 16:27 /nasra/ AQUILES MOISE FLEXOGRAPHIC PRINTING PRESS OPERATOR 08/31/2024 ADDENDUM STATUS: COMPLETED Agree with the above assessment and treatment plan. Treatment plan/Debridement to reduce painful ambulation and risk of infection. /nasra/ AQUILES MOISE FLEXOGRAPHIC PRINTING PRESS OPERATOR Signed: 08/31/2024 16:27 NEL GASPAR OC
--- OUTSIDE RECORDS SUMMARY | 2024-11-30 11:00 | XMS_ITS | Encounter Summary ---
Author Name [facility] [place] Address [address] [place] [id number] Care Team Providers Care Protocol Manager Name Role Phone TOMASA VAIL [facility] Insurance Providers: All historical and current [...] PART A Dec 13, 2007 PART A [id number] A [phone] Diego IBRAHIMS PATIENT MEDICARE (WNR) MEDICARE () PART B Dec 13, 2007 PART B [id number] A PATRICE,Diego DANGS PATIENT MEDICARE (WNR) MEDICARE () PART A Dec 13, 2007 PART A [id number] PATRICE,Diego HOMAS PATIENT MEDICARE (WNR) MEDICARE (M) PART B Dec 13, 2007 PART B [id number] [phone] PATRICEDiegoS PATIENT [facility] 2024 TRICA RE SELEC T Sep 13, 2024 SELECT [id number] [phone] Diego IBRAHIMS PATIENT -FO R-LIFE [facility] Sep 15, 2024 TFL [id number] Diego IBRAHIM PATIENT Selected Encounter This section includes the information on record at [place] for the Encounter. Date/Time Encounter Type Encounter Description Reason Provider Source Nov 30, 2024 03:00 PM OFFICE O/P EST LOW 20 MIN PODIATRY ICD-10-CM M20.42 Other hammer toe(s) (acquired), left foot STOIBER,JENNIFE R IHE Encounter Template Text not used by [place] Assessments - Encounter Diagnoses This section includes the primary and secondary diagnoses documented for the Encounter. Date/Time Primary/Secondary Diagnosis Diagnosis Name Provider Source Nov 30, 2024 04:34 PM PRIMARY Other hammer toe(s) (acquired), left foot [facility] Nov 30, 2024 04:34 PM SECONDARY Tinea unguium STOAASHISH [facility] Nov 30, 2024 04:34 PM SECONDARY Type 2 diabetes mellitus without complications [facility] Plan of Treatment: Future Appointments (+ 6 months) and Future Tests (+/- 45 days) The Plan of Treatment section includes future care activities for the patient [facility] [place] [facility] This section includes future appointments and future orders which are active, pending or scheduled. Future Appointments This section includes appointments that were scheduled to occur 6 months from the date of the Encounter, up to a maximum of 20 appointments. The data comes from all [place] treatment facilities. Appointment Date/Time Appointment Type Appointme nt Facility Name Dec 01, 2024 01:00 PM AMBULATORY - NONE [facility] January 18, 2025 01:00 PM AMBULATORY - NONE [facility] Feb 16, 2025 11:00 AM AMBULATORY - NONE [facility] Feb 23, 2025 01:00 PM AMBULATORY - NONE [facility] Feb 27, 2025 01:00 PM AMBULATORY - SURGERY [facility] Jun 01, 2025 01:00 PM [facility] - NONE [facility] Social History: Smoking Status (Most current) and Tobacco Use (All prior to encounter date) This section includes the most current, and the historical, smoking and tobacco- related health factors from the [place] facility where the Encounter took place. Current Smoking Status This section includes the most current smoking, or tobacco-related health factor, from the [place] facility where the Encounter took place. Date/Time Current Smoking Status Comment Facil ity Mar 13, 2024 03:00 PM VA-TOBACCO FORMER USER [facility] Tobacco Use History This section includes a history of the smoking, or tobacco-related health factors, that were collected on or before the date of the Encounter. The data comes from the [place] facility where the Encounter took place. Date/Time [...] PM QUIT TOBACCO IN THE LAST 12 [facility] Nov 01, 2012 01:15 PM QUIT TOBACCO >12 MO & <7 YRS AGO [facility] Aug 14, 2011 01:29 PM QUIT TOBACCO >12 MO & <7 YRS AGO [facility] Nov 11, 2010 01:57 PM QUIT TOBACCO >12 MO & <7 YRS AGO [facility] Dec 16, 2009 09:26 AM QUIT TOBACCO IN THE LAST 12 [facility] Advance Directives: All historical and current Section Date Range: From patient's date of to the date document was created. This section includes ALL of a patient's completed or amended VA Advance and Rescinded Directives. The entries below indicate that a directive exists for the patient, but an actual copy is not included with this document. The data comes from all [place] facilities. Date Advance Directives Provider Source Dec 21, 2023 ADVANCE DIRECTIVE DISCUSSION [facility] Encounter Notes: All associated encounter notes This section contains the clinical notes associated to the Encounter. Date/Time Encounter Note(s) Provider Source Nov 30, 2024 03:31 PM PODIATRY NOTE: LOCAL TITLE: PODIATRY CLINIC NOTE (T) STANDARD TITLE: PODIATRY NOTE DATE OF NOTE: NOV 30, 2024@15:31 ENTRY DATE: NOV 30, 2024@15:31:41 AUTHOR: AQUILES MOISE COSIGNER: URGENCY: STATUS: COMPLETED [facility] SOAP Note SUBJECTIVE: The patient is a 83 year old MALE. Chief Complaint: dm foot care Past Medical History: Pt presents today for dm foot care. Pt going through a lot medically. Problems with gluocose levels and weakness in the legs. Seeing pharmacist and supervisor electric motor testing tomorrow. Neurology for parkinson's next week. He has also completed physical therapy and released, not doing exercises at home they're boring . Wearing valerie diabetic shoes, fitting better than tennis shoes. PATIENT ALLERGIES DETAILED ALLERGIES/ADVERSE REACTIONS Type: DRUG [...] 1 STRIP ACTIVE TESTING EVERY DAY NEEDED : FOR USE IF CONTINUOUS GLUCOSE MONITOR IS UNAVAILABLE, MALFUNCTIONS, OR ALARMS TO CHECK BLOOD GLUCOSE 2) BRIEF,TRANQUILITY LARGE #1226-100 USE BRIEF SUPPLY ACTIVE (S) ITEM DIRECTED FOR INCONTINENCE 3) CALCIUM 500MG/VITAMIN D 200 UNT TAB TAKE 1 TABLET BY ACTIVE MOUTH TWICE A DAY WITH MEALS 4) CHOLECALCIF 25MCG (D3-1,000UNIT) TAB TAKE THREE ACTIVE TABLETS BY MOUTH EVERY DAY FOR VITAMIN D DEFICIENCY 5) CLEANSING CLOTH ATTENDS PKT USE WASHCLOTH(S) SUPPLY ACTIVE ITEM NEEDED FOR INCONTINENCE 6) FERROUS SULFATE 325MG TAB TAKE ONE TABLET BY MOUTH ACTIVE EVERY DAY (AN HOUR BEFORE OR TWO HOURS AFTER A MEAL; TAKE WITH FOOD IF THIS UPSETS YOUR STOMACH) 7) FUROSEMIDE 20MG TAB TAKE ONE TABLET BY MOUTH EVERY ACTIVE DAY 8) GLOVE NITRILE LRG PFREE NSTERILE TX USE GLOVES SUPPLY ACTIVE ITEM DIRECTED FOR INCONTINENCE CARE 9) GLUCOSE SENSOR FREESTYLE CECILLE 3 USE GLUCOSE SENSOR ACTIVE SUPPLY ITEM DIRECTED FOR REPLACEMENT SENSORS CALL [phone]; FOR REFILLS CALL 10) INSULIN,GLARGINE-YFGN 100UNIT/ML PEN 3ML INJECT 14 ACTIVE UNITS SUBCUTANEOUSLY EVERY DAY FOR DIABETES (DISCARD PEN 28 DAYS AFTER FIRST USE) (REPLACES ODOM LANTUS PENS) 11) LANCET,SOFTCLIX USE LANCET(S) TESTING DIRECTED ACTIVE/SANDRA D 12) MAGNESIUM OXIDE 420MG TAB TAKE ONE TABLET BY MOUTH ACTIVE EVERY DAY 13) MASK,PROCEDURE RECTANGULAR ASTM LEVEL1-2 USE MASK ACTIVE SUPPLY ITEM DIRECTED FOR PERSONAL PROTECTION 14) MULTIVITS W/MINERALS TAB/CAP (NO VIT K) TAKE 1 TABLET ACTIVE BY MOUTH EVERY DAY 15) NEEDLE,PEN 31G,5MM USE NEEDLE SUPPLY ITEM DIRECTED HOLD 16) NUTRITION SUPL ENSURE PLUS/VANILLA LIQ TAKE THE ACTIVE CONTENTS OF 1 CAN BY MOUTH TWICE A DAY FOR NUTRITION SUPPLEMENTATION 17) POISE PAD,MAXIMUM ABSORB EXTRA COVERAGE USE PADS ACTIVE SUPPLY ITEM DIRECTED FOR INCONTINENCE 18) REMEDY SILICONE TOP CREAM APPLY A SUFFICIENT AMOUNT ACTIVE EXTERNALLY DIRECTED NEEDED FOR SKIN IRRITATION 19) TAMSULOSIN HCL 0.4MG CAP TAKE ONE CAPSULE BY MOUTH ACTIVE EVERY EVENING, WITH DINNER FOR PROSTATE 20) UNDERPAD,BED 23IN X 36IN PLASTIC BACK USE PAD(S) ACTIVE SUPPLY ITEM DIRECTED Inactive Outpatient Medications Status ======= 1) ACCU-CHEK GUIDE (GLUCOSE) TEST STRIP USE 1 STRIP TESTING EVERY DAY NEEDED FOR BLOOD SUGAR TESTING; FOR CECILLE COMPARISON 2) CARBOXYMETHYLCELLULOSE NA 0.5% OPH SOLN INSTILL 1 DROP IN EACH EYE THREE TIMES A DAY FOR DRY AND/OR IRRITATED EYE(S) 3) POTASSIUM CHLORIDE 10MEQ SA TAB TAKE ONE TABLET BY MOUTH EVERY DAY (WITH FOOD) Active Non-VA Medications Status ======= 1) Non-VA ALPHA-LIPOIC ACID CAP/TAB 2 CAP/TAB MOUTH ACTIVE EVERY DAY 2) Non-VA APIXABAN 5MG TAB 5MG MOUTH TWICE A DAY ACTIVE 3) Non-VA BUSPIRONE HCL 5MG TAB 5MG MOUTH TWICE A DAY ACTIVE 4) Non-VA CARBIDOPA 10/LEVODOPA 100MG TAB 1 TABLET MOUTH ACTIVE DIRECTED 5) Non-VA CARBIDOPA 10/LEVODOPA 100MG TAB 1 TABLET MOUTH ACTIVE THREE TIMES A DAY 6) Non-VA CARVEDILOL 3.125MG TAB 3.125MG MOUTH TWICE A ACTIVE DAY 7) Non-VA CLOPIDOGREL BISULFATE 75MG TAB 75MG MOUTH ACTIVE EVERY DAY 8) Non-VA CREON 12,000UNIT EC CAP 3 CAPSULES MOUTH THREE ACTIVE TIMES A DAY, WITH MEALS 9) Non-VA DIAZEPAM 2MG TAB 1MG MOUTH AT BEDTIME ACTIVE 10) Non-VA FAMOTIDINE 20MG TAB 20MG MOUTH TWICE A DAY ACTIVE 11) Non-VA LOPERAMIDE HCL 2MG CAP 2MG MOUTH EVERY DAY ACTIVE 12) Non-VA MEMANTINE HCL 28MG SA CAP 28MG MOUTH EVERY DAY ACTIVE 13) Non-VA MOMETASONE FUROATE 50MCG 120D NASAL SUSP 2 ACTIVE SPRAYS EACH NOSTRIL EVERY DAY 14) Non-VA PAROXETINE HCL 40MG TAB 20MG MOUTH EVERY ACTIVE MORNING 15) Non-VA PERPHENAZINE 2MG TAB 2MG MOUTH AT BEDTIME ACTIVE 16) Non-VA PSYLLIUM POWDER,ORAL DAILY BY MOUTH TWICE A ACTIVE DAY NEEDED 17) Non-VA ZZICOSAPENT ETHYL 1GM 4GM MOUTH TWICE A DAY ACTIVE 40 Total Medications MEDICATION RECONCILIATION MEDICATION RECONCILIATION REPORT reviewed and discussed with patient. VA prescription medications: Patient verifies that they are in receipt of a complete and accurate list of medications. Prescription medications from another source: Patient verifies that they are in receipt of a complete and accurate list of medications. Over the counter medications, vitamins, herbals, and nutritional supplements: Patient verifies that they are in receipt of a complete and accurate list of medications. ALLERGIES: ALLERGIES/ADVERSE REACTIONS Type: DRUG Date/Time Reactant Severity Reaction 03/05/2015 14:26 VICTOZA 2-AVIS UNKNOWN 03/05/2015 14:25 INVOKANA UNKNOWN 03/05/2015 14:25 BYETTA UNKNOWN 08/22/2010 11:41 DEMEROL EDEMA OF ARM 12/16/2009 09:27 [place] UNKNOWN 12/16/2009 09:26 CODEINE UNKNOWN Food allergies: None known FOOT RISK LEVEL: DATE TIME HEALTH FACTOR ---- ---- 12/08/2023 15:00 DAY LIMB CARE LEVEL 1 03/07/2024 11:00 DAY LIMB CARE LEVEL 1 06/13/2024 10:30 DAY LIMB CARE LEVEL 1 08/31/2024 14:30 DAY LIMB CARE LEVEL 1 ACTIVE PROBLEM Exposure to Potentially Hazardous 01/05/2024 Substance ([facility] [id number]) History of malignant neoplasm of 01/13/2022 prostate Narcolepsy 01/12/2019 Hammer toe 08/18/2017 Colonoscopy normal 05/30/2016 History of male erectile disorder 01/05/2013 Chronic atrial fibrillation 06/14/2020 Tobacco Use Disorder * (ICD-9-CM 305.1) 09/08/2012 Sensorineural hearing loss, bilateral 09/22/2016 (SNOMED CT 826539299) Diverticulosis * (ICD-9-CM 562.10) 07/04/2012 Anxiety disorder (SNOMED CT 726687788) 01/10/2018 Obstructive sleep apnea of adult 01/12/2019 (SNOM[address] CT 2500044033658) Onychomycosis of toenails (SNOMED CT 09/10/2015 273261502) Partner Relational Problem 07/02/2010 Chronic post-traumatic stress disorder 11/07/2015 (SNOMED CT 695536534) Recurrent major depressive episodes, 11/09/2016 mild (SNOMED CT 747676928) Coronary artery disease (SNOMED CT 05/30/2016 64530517) Type 2 diabetes mellitus without 09/10/2015 complication (SNOMED CT 132649535) Prostate Cancer (ICD-9-CM 185.) 12/16/2009 OBJECTIVE: Vasc: DP/PT non-palpable. CFT 4 seconds to the hallux. Skin temp is warm to cool from proximal to distal b/l. Absent hair growth noted to the digits. No edema noted Neuro: Protective sensation intact b/l at all 10/10 sites using 5.07 SWMF. Light touch intact to the hallux bilateral Derm:Nails 2-5 are elongated, yellow b/l. Spicules noted to the medial and lateral hallux nails bilateral. Webspaces 1-4 b/l are clean, dry, and intact. Skin appears well-hydrated Musc: HAV deformity- right foot greater than left foot. Contracted digits 2-5 foot b/l. Rigid hammertoe deformity 2nd b/l, left 2nd digit dorsiflexed at MPJ and medially deviating, overlapping hallux PAVE FOOT EXAM A foot risk level was completed. The following risk level was identified for this patient: +POD RISK SCORE+ --LEVEL 2 - (MODERATE RISK) Sensory loss and may have one additional finding below Diminished circulation Foot deformity -POD RISK SCORE- Patient currently being followed by Podiatry or other foot care provider. LEVEL 2 FOOT EDUCATION: 1. Advised patient that therapeutic footwear and orthosis are required to accommodate foot deformities, to compensate for soft tissue atrophy, and to evenly distribute plantar foot pressures. 2. Advised patient not to walk barefoot. Instructed the patient to pay close attention to the style and fit of shoes. 3. Explained the importance of daily foot checks. Explained that loss of sensation leads to callouses. Callouses break down, which result in ulcers that may lead to gangrene and amputation. 4. Stressed the importance of daily foot hygiene. Warm (not hot) bathing of the feet, complete drying and thorough inspection for changes in the condition of the skin constitute daily foot care. Demonstrated how to do a thorough foot check. 5. Emphasized the use of clean, non-restrictive socks/stockings and well fitting shoes. 6. Stressed the importance of immediate follow-up of any foot injuries or ulcers. Explained that he/she should be non-weight bearing whenever there are lesions on the foot, to prevent cellular damage. Level of Understanding: Good Patient/Caregiver having difficulty examining feet No Patient/caregiver has difficulty cleansing feet No Patient walks barefoot Never Instructed on the importance of not walking barefoot ASSESSMENT: After reviewing the H&P and clinical findings, this provider made the diagnosis of: Diabetes mellitus Onychomycosis Hammertoe deformity 2-5 foot b/l Bunion Anticoagulation therapy Plan: Treatment today consisted of: -Patient examination and evaluation. -Debridement of nails 1-5 b/l without incident with assistance of Meka Shukla -Continue toe spacer left foot, additional dispensed -Continue extra depth shoes, valerie shoe fitting well -Patient to return to clinic in 3 months, nursing clinic. Response to care/Rationale for care: Pt stable, nail care provided. Using spacer and extra depth shoes for hammer toe. /nasra/ AQUILES MOISE PRINCIPAL QUALITY ENGINEER Signed: 11/30/2024 16:34 AQUILES MOISE [facility]
--- OUTSIDE RECORDS SUMMARY | 2025-01-05 10:54 | XMS_ITS | Encounter Summary ---
Author Name [facility] [place] [facility] [place] [place] Address [address] [place] [address] Care Team Providers Care Frozen Food Department Manager Name Role Phone TOMASA VAIL [facility] Insurance Providers: All historical and [...] PART A Dec 13, 2007 PART A [id number] A Diego IBRAHIMS PATIENT MEDICARE (WNR) MEDICARE (M) PART B Dec 13, 2007 PART B [id number] PATRICE,Diego DANGS PATIENT MEDICARE (WNR) MEDICARE (M) PART A Dec 13, 2007 PART A [id number] [phone] PATRICE,Diego HOMAS PATIENT MEDICARE (WNR) MEDICARE (M) PART B Dec 13, 2007 PART B [id number] [phone] PATRICEDiegoS PATIENT [facility] 2024 TRICA RE SELEC T Sep 13, 2024 SELECT [id number] Diego IBRAHIMS PATIENT -FO R-LIFE [facility] LIFE Sep 15, 2024 TFL [id number] Diego IBRAHIM PATIENT Selected Encounter This section includes the information on record at [place] for the Encounter. Date/Time Encounter Type Encounter Description Reason Provider Source Jan 05, 2025 02:54 PM Outpatient Encounter ADMIN PAT ACTIVTIES (MASNONCT) ICD-10-CM Y93.9 Activity, unspecified FER MAYSE Ila IHMaciej Encounter Template Text not used by [place] Assessments - Encounter Diagnoses This section includes the primary and secondary diagnoses documented for the Encounter. Date/Time Primary/Secondary Diagnosis Diagnosis Name Provider Source Jan 05, 2025 03:14 PM PRIMARY Activity, unspecified ERICK MAYSJORIE Ila AJIDEN PALM Plan of Treatment: Future Appointments (+ 6 months) and Future Tests (+/- 45 days) The Plan of Treatment section includes future care activities for the patient from all [place] [facility]. This section includes future appointments and future orders which are active, pending or scheduled. Future Appointments This section includes appointments that were scheduled to occur 6 months from the date of the Encounter, up to a maximum of 20 appointments. The data comes from all [place] treatment facilities. Appointment Date/Time Appointment Type Appointme nt Facility Name January 18, 2025 01:00 PM AMBULATORY - NONE [facility] Feb 16, 2025 11:00 AM AMBULATORY - NONE [facility] Feb 23, 2025 01:00 PM AMBULATORY - NONE [facility] Feb 27, 2025 01:00 PM AMBULATORY - SURGERY [facility] Jun 01, 2025 01:00 PM AMBULATORY - NONE [facility] Jun 04, 2025 10:30 AM AMBULATORY - NONE [facility] Social History: Smoking Status (Most current) and Tobacco Use (All prior to encounter date) This section includes the most current, and the historical, smoking and tobacco- related health factors from the [place] facility where the Encounter took place. Current Smoking Status This section includes the most current smoking, or tobacco-related health factor, from the [place] facility where the Encounter took place. Date/Time Current Smoking Status Comment Christina olivia Mar 13, 2024 03:00 PM VA-TOBACCO FORMER USER [facility] Tobacco Use History This section includes a history of the smoking, or tobacco-related health factors, that were collected on or before the date of the Encounter. The data comes from the [place] facility where the Encounter took place. Date/Time [...] PM QUIT TOBACCO IN THE LAST 12 [facility] Nov 01, 2012 01:15 PM QUIT TOBACCO >12 MO & <7 YRS AGO [facility] Aug 14, 2011 01:29 PM QUIT TOBACCO >12 MO & <7 YRS AGO [facility] Nov 11, 2010 01:57 PM QUIT TOBACCO >12 MO & <7 YRS AGO [facility] Dec 16, 2009 09:26 AM QUIT TOBACCO IN THE LAST 12 [facility] Advance Directives: All [...] this document. The data comes from all [place] facilities. Date Advance Directives Provider Source Dec 21, 2023 ADVANCE DIRECTIVE DISCUSSION FER MAYS [facility] Encounter Notes: All associated encounter notes This section contains the clinical notes associated to the Encounter. Date/Time Encounter Note(s) Provider Source Jan 05, 2025 03:21 PM ADDENDUM: LOCAL TITLE: Addendum STANDARD TITLE: ADDENDUM DATE OF NOTE: JAN 05, 2025@15:21:53 ENTRY DATE: JAN 05, 2025@15:21:54 AUTHOR: JAN MAYS EXP COSIGNER: URGENCY: STATUS: COMPLETED Spouse is requesting refill on ensure and is also asking for gloves (size M) to be ordered for . SW is including PCP and PACT RN to assist with these requests. 1 minute /es/ ALLISON GUERRERO CLINICAL SATELLITE TV TECHNICIAN Signed: 01/05/2025 15:23 Receipt Acknowledged By: 01/06/2025 10:51 /es/ TOMASA VAIL PHYSICIAN 01/10/2025 08:35 /nasra/ BURT GOMEZ REGISTERED NURSE 01/08/2025 07:54 /es/ MIYA [facility] DIETITIAN --- Original Document --- 01/05/25 SOCIAL WORK PROGRESS NOTE: Phone call to [facility] [phone] to request Spouse be updated as to [employer] services and lack of care this week. Per Dru, he was not aware of missed shifts, but will notify scheduling and have someone contact spouse today to resolve the issue. Phone call from Dru who informed spouse declined replacement aide this week because her son was in town. Dru added deicer repairer to the call. Agency is prepared to send new aide when spouse is ready. Son leaves on Wednesday, agency as going to follow-up on Wednesday to discuss return of current aide (has been without a vehicle) or replacement aide. RUT thanked agency for prompt response. SW requested Spouse be contacted [facility] as she was expecting a call today. 15 minutes /nasra/ ALLISON GUERRERO CLINICAL SATELLITE TV TECHNICIAN Signed: 01/05/2025 15:15 JAN MAYS CBAMERICO Jan 05, 2025 03:06 PM SOCIAL WORK NOTE: LOCAL TITLE: SOCIAL WORK PROGRESS NOTE STANDARD TITLE: SOCIAL WORK NOTE DATE OF NOTE: JAN 05, 2025@15:06 ENTRY DATE: JAN 05, 2025@15:06:38 AUTHOR: JAN MAYS EXP COSIGNER: URGENCY: STATUS: COMPLETED SOCIAL WORK PROGRESS NOTE Has ADDENDA Phone call to [facility] [phone] to request Spouse be updated as to [employer] services and lack of care this week. Per Dru, he was not aware of missed shifts, but will notify scheduling and have someone contact spouse today to resolve the issue. Phone call from Dru who informed spouse declined replacement aide this week because her son was in town. Dru added deicer repairer to the call. Agency is prepared to send new aide when spouse is ready. Son leaves on Wednesday, agency as going to follow-up on Wednesday to discuss return of current aide (has been without a vehicle) or replacement aide. RUT thanked agency for prompt response. SW requested Spouse be contacted [facility] as she was expecting a call today. 15 minutes /nasra/ ALLISON GUERRERO CLINICAL SATELLITE TV TECHNICIAN Signed: 01/05/2025 15:15 01/05/2025 ADDENDUM STATUS: COMPLETED Spouse is requesting refill on ensure and is also asking for gloves (size M) to be ordered for . SW is including PCP and PACT RN to assist with these requests. 1 minute /nasra/ ALLISON GUERRERO CLINICAL SATELLITE TV TECHNICIAN Signed: 01/05/2025 15:23 Receipt Acknowledged By: * AWAITING SIGNATURE * TOMASA VAIL * AWAITING SIGNATURE * BURT GOMEZ MARJORIE K SANDUSKY AMERICO
--- OUTSIDE RECORDS SUMMARY | 2025-01-31 14:20 | XMS_ITS | Encounter Summary ---
Author Organization [facility] Address [address] [facility] [place] [address] Care Team Providers Care Drop Count Associate Name Role Phone Viky Rollins Unavailable Maicol Anderson MD Primary Care Provider [phone] Karen Woo DO Unavailable [phone] Encounter Details Date Type Department Care Team (Latest Contact Info) Description 01/31/2025 2:20 PM EDT Office Visit [facility] [address] [place] [address] Viky Rollins PA [address] [place] [address] Parkinson's disease without dyskinesia or fluctuating manifestations (CMS/HCC) (Primary Dx); Dysphagia, unspecified type; Cerebrovascular accident (CVA), unspecified mechanism (CMS/HCC); HERBIE (obstructive sleep apnea); Radiculopathy, lumbosacral region; Memory loss; Periodic limb movement disorder Social History Tobacco Use Types Packs/Day Years Used Date Smoking Tobacco: Never Smokeless Tobacco: Never Tobacco Cessation:Counseling Given: Not Answered Alcohol Use Standard Drinks/Week Comments Never 0 (1 standard drink = 0.6 oz pur e alcohol) Sex and Gender Information Value Date Recorded Sex Assigned at Not on file Legal Sex Male 7:20 PM EDT Gender Identity Not on file Sexual Orientation Not on file documented as of this encounter Last Filed Vital Signs Vital Sign Reading Time Taken Comments Blood Pressure 118/62 01/31/2025 2:36 PM EDT Pulse 64 01/31/2025 2:36 PM EDT Temperature - - Respiratory Rate - - Oxygen Saturation 95% 01/31/2025 2:36 PM EDT Inhaled Oxygen Concentration - - Weight 79.4 kg (175 lb) 01/31/2025 2:36 PM EDT Height 166.4 cm (5' 5.5 ) 01/31/2025 2:36 PM EDT Body Mass Index 28.68 01/31/2025 2:36 PM EDT documented in this encounter Progress Notes * RAÚL Yarbrough - 01/31/2025 2:20 PM EDT Images from the original note were not included. Subjective Jose Shelby is a 84 y.o. year old male No chief complaint on file. Past Medical History: Diagnosis Date Anxiety Carpal tunnel syndrome Dementia (CMS/HCC) HERBIE (obstructive sleep apnea) Osteopenia Stroke (CMS/HCC) Past Surgical History: Procedure Laterality Date APPENDECTOMY CARDIAC PACEMAKER PLACEMENT CHOLECYSTECTOMY Family History Problem Relation Name Age of Onset Hypertension Other Social History Tobacco Use Smoking status: Never Smokeless tobacco: Never Substance Use Topics Alcohol use: Never HPI Back pain -he did not start the requip yet, they thought it was for his -legs are getting worse per -His back pain has been terrible. -he would like an epidural -located in low back -pain today is 6/10 -pain is constant -denies recent falls. Parkinsonism/ Memory loss -he states the parkinson's is getting worse he states -states his legs do not want to work, right leg is worse -on Sinemet -he saw speech therapy and barium swallow ordered as well as referral to ENT-On Namenda -using BiPAP nightly -uses his BiPAP during his naps also - states he sleeps 8-10 hours -Every night between 10-12 he gets hyper. - is asking if medication needs adjusted. -denies hallucination ROS Review of Systems Constitutional: Negative for chills and fever. Respiratory: Negative for chest tightness and shortness of breath. Cardiovascular: Negative for chest pain and palpitations. Gastrointestinal: Negative for abdominal pain, nausea and vomiting. Musculoskeletal: Positive for back pain. Neurological: Positive for dizziness and light-headedness. Negative for tremors, seizures, syncope,facial asymmetry, speech difficulty, weakness, numbness and headaches. Psychiatric/Behavioral: Positive for confusion. Negative for hallucinations and sleep disturbance. Objective Visit Vitals BP 118/62 Pulse 64 Ht 5' 5.5 Wt 175 lb SpO2 95% BMI 28.68 kg/m?? Smoking Status Never BSA 1.92 m?? Heart-RRR Neurological Exam Mental Status Awake, alert and oriented to person, place and time. Oriented to person, place, time and situation.Speech is normal. Language is fluent with no aphasia. Attention and concentration are normal. Cranial Nerves CN III, IV, : Normal lids and orbits bilaterally. Pupils equal round and reactive to light bilaterally. CN VII: Full and symmetric facial movement. CN VIII: Right: Hearing is decreased. Left: Hearing is decreased. CN XI: Shoulder shrug strength is normal. Sensory Light touch is normal in upper and lower extremities. Vibration abnormality: Gait Ambulates with a cane. Motor Examination RUE Strength deltoid, biceps, triceps, wrist extensors, wrist extensors, wrist flexor, recreational leader strength 5/5. LUE Strength deltoid, biceps, triceps, wrist extensors, wrist extensors, wrist flexor, recreational leader strength 5/5. RLE Strength illopsoas, quadriceps, tibialis anterior, and gastrocnemius strength 5/5. LLE Strength illopsoas, quadriceps, tibialis anterior, and gastrocnemius strength 5/5. Tone Normal tone x4 extremities. Reflexes: RUE biceps reflex 2, LUE biceps reflex 2, RLE knee reflex 1, LLE knee reflex 1, Assessment and Plan Cerebrovascular accident (CVA), unspecified mechanism (CMS/HCC) Patient with history of stroke which likely caused him his vascular memory loss. Per record reviewed, he had a hospital stay in 2006 for TIA but with stroke like symptoms and was unable to have MRI due to AICD. He was previously on Coumadin but then placed on Eliquis as well as Plavix. Stroke risk factors of age, male, hypertension, hyperlipidemia, diabetes and atrial fibrillation. TCD 07/28/21 was within normal limits. Carotid ultrasound 07/28/21 revealed 1-29% stenosis of the bilateral carotid arteries. He did have episode of confusion manifested as seeing his in a different form when she was not there. CT brain 02/18/24 revealed no acute process. Previous infarct was noted. Eliquis has been stopped and Watchman placed 10/20/24. No new signs or symptoms of stroke. Memory loss Patient with history of stroke and Agent [place] exposure contributing to PTSD. He also has a history of depression and follows with Dr. Gaona. He is currently treated with Exelon patch and Namenda. He passed driving evaluation 02/2022 but has since been advised to refrain from driving. MOCA 08/10/22 was 24/30. He continues to follow with Dr. Gaona and was started on a new medication for agitation. He was recently changed to Aricept by PCP from Exelon patch as he was tired of placing the patch.Patient follows with Dr. Gaona. Memory loss persists. Radiculopathy, lumbosacral region Nonintractable headache, unspecified chronicity pattern, unspecified headache type Vertigo DDD (degenerative disc disease), cervical HERBIE (obstructive sleep apnea) HERBIE treated with BIPAP. He is compliant with machine. He was previously on Adderall but this has been stopped. He continues to use q sleep and nap. Hypersomnia Gait difficulty Per previous record review, he was having more symptoms to suggest Parkinson's disease. He trialed Sinemet but did not tolerate and lowered the dose. He denied tremor. He does have some continued shuffling gait but also has lumbar spine disease. He has declined EMG testing to detect possible neuropathy. He is diabetic and was also exposed to Agent [place] per his 's report. He experienced worsening bradykinesia with Sinemet lowering. He presented to [facility] [place]/02[place]21 for increase in lower extremity weakness. CT head 09/02/21 revealed no acute findings. He is unable to have MRI due to pacemaker. CT brain 06/29/24 revealed no acute intracranial abnormalities. Chronic microvascular ischemic changes noted. CT cervical spine 06/29/24 revealed no acute injury with degenerative changes noted. Chronic bilateral low back pain with bilateral sciatica He has chronic and continued neck and back pain. He has seen Dr. Pollack in the past. He does not wantto revisit injections as he had to hold Eliquis and then suffered DVT/PE per 's report. He notes he was seen by Dr. Maciel who recommended fusion but he is unable to have due to bone density. He notes increase in restless of his legs and he needs to frequently reposition. He did not start Requip. Anxiety Plan: 1. Try Requip 0.25mg PO TID for Parkinson's disease. 2. Continue Sinemet 10-100mg 2 times per day to reassess symptoms of depression. 3. Continue Namenda XR 28mg PO daily for memory loss. 4. Continue Plavix 75mg PO daily for secondary stroke prevention. 5. Continue to follow with PCP for secondary stroke prevention. 6. Follow with speech therapy and ENT as ordered. 7. Continue Valium 2mg 1 tab PO at bedtime 8. OARRS reviewed. 9. I counseled the patient on fall precautions. I discussed the high risk of trauma and debility associated with falls. He verbalized understanding. 10. I counseled the patient on stroke signs and symptoms and advised the patient to go immediately to the emergency room should these symptoms develop. The patient states understanding. Follow up in 2-3 months documented in this encounter Plan of Treatment Not on file documented as of this encounter Visit Diagnoses Diagnosis Parkinson's disease without dyskinesia or fluctuating manifestations (CMS/HCC)- Primary Dysphagia, unspecified type Cerebrovascular accident (CVA), unspecified mechanism (CMS/HCC) HERBIE (obstructive sleep apnea) Obstructive sleep apnea (adult) (pediatric) Radiculopathy, lumbosacral region Thoracic or lumbosacral neuritis or radiculitis, unspecified Memory loss Periodic limb movement disorder documented in this encounter Care Teams Drop Count Associate Relationship Specialty Start Date End Date Maicol Anderson MD [address] [place] [address] PCP - General Family Medicine 08/24/24 Viky Rollins PA [address] [place] [address] Physician Erisa Attorney Neurology 12/06/23 Karen Woo DO [address] [place] [address] Referring Physician Neurology 11/09/24 documented as of this encounter
--- OUTSIDE RECORDS SUMMARY | 2025-02-02 13:45 | XMS_ITS | Encounter Summary ---
Author Organization [facility] Address [address] [place] [address] Phone Care Team Providers Care Drying Machine Operator Name Role Phone JustinNikkiaditya Saldanat Primary Care Prov ider Reason for Referral * Consultation (Routine) - Authorized Specialty Diagnoses / Procedures Referred By Godwin romo Referred To Contact Cardiology Diagnoses Congestive heart failure, NYHA class 3, chronic, systolic Procedures Follow Up In Cardiology Rosemary Cartagena MD [address] [address] Phone: tel: fax: Rosemary Cartagena MD [address] [address] Phone: tel: fax: Referral ID Status Reason Start Date Expiration Date V isits Requested Visits Authorized [id number] Authorized 02/02/2025 02/02/2026 1 1 Reason for Visit * Reason Comments Follow-up 6 month Follow up fo r Coronary Artery Disease * Consultation (Routine) - Authorized Specialty Diagnoses / Procedures Referred By Godwin romo Referred To Contact Cardiology Diagnoses Congestive heart failure, NYHA class 3, chronic, systolic Procedures Follow Up In Cardiology Rosemary Cartagena MD [address] [address] Phone: tel: fax: Rosemary Cartagena MD 917 [facility] [address] [place] [address] Phone: tel: fax: Referral ID Status Reason Start Date Expiration Date V isits Requested Visits Authorized [id number] Authorized 07/27/2024 07/27/2025 1 1 Encounter Details Date Type Department Care Team (Late st Contact Info) Description 02/02/2025 1:45 PM EDT Office Visit [facility] 703 [facility] [address] [place] [address] Rosemary Cartagena MD 917 [facility] [address] [place], [place] [phone] 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, were you homeless or living in a group home (including now)? No 10/21/2024 Sex and Gender [...] 2 times daily, HOLD IF BP LESS [id number] tamsulosin (Flomax) 0.4 mg 24 hr capsule [...] in adult 8. Coronary artery disease involving [place] coronary artery of [place] heart without angina pectorisrosuvastatin (Crestor) 5 mg [...] Description 02/16/2025 12:45 PM EDT Hospital Encounter [facility] 1997 [facility] [address] [place] [address] 07/30/2025 2:45 PM EST Office Visit [facility] 703 [facility] [address] [place] [address] Rosemary Cartagena MD 917 [facility] [address] [place], [place] [id number] Scheduled Orders Name Type Priority Associated Diagnoses [...] 29.9 in adult Coronary artery disease involving [place] coronary artery of [place] heart without angina pectoris Presence of Watchman left atrial appendage closure device Longstanding persistent atrial fibrillation (Multi) documented in this encounter Additional Health Concerns Assessment Noted Time A fall risk assessment has been complete d for the patient 02/02/2025 2:31 PM EDT documented as of this encounter Care Teams Drying Machine Operator Relationship Specialty Start Date End Date Maicol Anderson DO [address] [place] [address] PCP - General Family Medicine 08/30/23 documented as of this encounter
--- OUTSIDE RECORDS SUMMARY | 2025-02-10 12:44 | XMS_ITS | Continuity of Care Document ---
Author Name [facility] Organization [facility] Care Team Providers Care Family Medicine Physician Assistant Name Role Phone [facility] Unavailable Unavailable Problems Combined list of problems from Department of Defense and Veterans Affairs facilities. It does not include entries that were removed or entered in error. Problem Status Onset Date Problem Type Date of Resolution Comments Source Colonoscopy normal Active 03/13/20 16 Condition [facility] Obstructive sleep apnea of adult (SNOMED CT 4543435429376) Active 02/17/20 12 Condition Mar 14, 2012 Entered By: TOMASA BARRETT Comment: [facility] 18CM INSPIR AND 14 EXPIR [facility] Anxiety disorder (SNOMED CT 033642409) Active Condition May 13, 2012 Entered By: MINO RODRIGEZ Comment: PTSD symptoms currently subclinical, problems list updated [facility] Atrial Fibrillation * (ICD-9-CM 427.31) Active Condition [facility] Chronic atrial fibrillation Active Condition [facility] Chronic post-traumatic stress disorder (SNOMED CT 472843258) Active Condition [facility] Coronary artery disease (SNOMED CT 82122645) Active Condition [facility] Diverticulosis * (ICD-9-CM 562.10) Active Condition [facility] Diverticulosis, Colonic * (ICD-9-CM 562.10) Active Condition January 24 07 Entered By: ANGELES TALAMANTES PA-C Comment: colonscopy 08/18 neg [facility] Exposure to Potentially Hazardous Substance (SCT 966099737303331) Active Condition RINKU Barrientos [facility] Hammer toe Active Condition [facility] History of male erectile disorder Active Condition ANDRE CALIXTO [facility] History of malignant neoplasm of prostate Active Condition [facility] Hyperlipidemia * (ICD-9-CM 272.4) Active Condition [facility] Low Back Pain * (ICD-9-CM 724.2) Active Condition [facility] Narcolepsy Active Condition [facility] Onychomycosis of toenails (SNOMED CT 862899131) Active Condition [facility] Partner Relational Problem Active Condition [facility] Prostate Cancer (ICD-9-CM 185.) Active Condition [facility] Recurrent major depressive episodes, mild (SNOMED CT 950574670) Active Condition [facility] Sensorineural hearing loss, bilateral (SNOMED CT 087110244) Active Condition [facility] Tobacco Use Disorder * (ICD-9-CM 305.1) Active Condition [facility] Type 2 diabetes mellitus without complication (SNOMED CT 276420519) Active Condition [facility] Tobacco Use Inactive Condition 10/06/2011 [facility] Diagnosis: ICD-10-CM E11.9 Type 2 diabetes mellitus without complications Active Diagnosis [facility] Diagnosis: ICD-10-CM Z74.1 Need for assistance with personal care Active Diagnosis [facility] Diagnosis: ICD-10-CM Y93.9 Activity, unspecified Active Diagnosis [facility] Diagnosis: ICD-10-CM M20.42 Other hammer toe(s) (acquired), left foot Active Diagnosis [facility] Diagnosis: ICD-10-CM I25.10 Athscl heart disease of [place] coronary artery w/o ang pctrs Active Diagnosis [facility] Diagnosis: ICD-10-CM B35.1 Tinea unguium Active Diagnosis [facility] Diagnosis: ICD-10-CM H90.3 Sensorineural hearing loss, bilateral Active Diagnosis [facility] Diagnosis: ICD-10-CM Z77.29 Contact with and exposure to other hazardous substances Active Diagnosis [facility] Diagnosis: ICD-10-CM Z04.89 Encounter for examination and observation for oth reasons Active Diagnosis [facility] Medications Combined list of outpatient medications from Department of Defense and Veterans Affairs facilities.Medications provided include 1) outpatient medications from the last 15 months, and 2) patient-reported medications. Medication Details Route Status Patient Instructions Prescription Expires Prescription Number Last Dispense Date Ordering Provider Order Date Order Qty Source ALPHA-LIPOI C ACID CAP/TAB TAKE 2 CAP/TAB BY MOUTH EVERY DAY ORAL ACTIVE STORMY HERNANDEZ 2017 [facility] AMYLASE 60,000UNIT/ LIPASE 12,000UNIT/ PROTEASE 38,000UNIT CAP,EC TAKE 3 CAPSULES BY MOUTH THREE TIMES A DAY, WITH MEALS ORAL ACTIVE DE MARIZA HEARD D L 2022 [facility] APIXABAN 5MG TAB TAKE ONE TABLET BY MOUTH TWICE A DAY ORAL ACTIVE KIAH BARRETT L 2017 [facility] AZELASTINE HCL (azelastine HCl), 137 MCG, SPRAY/PUMP, NASAL, AMNEAL PHARMACE, 30 ml SQUEEZ BTL Cancele d [id number] : 2023 0 Pharmac y Data Transac tion Service Facilit y AZELASTINE HCL (azelastine HCl), 137 MCG, SPRAY/PUMP, NASAL, AMNEAL PHARMACE, 30 ml SQUEEZ BTL Active [id number] 2023 30 Pharmac y Data Transac tion Service Facilit y AZELASTINE HCL (azelastine HCl), 137 MCG, SPRAY/PUMP, NASAL, AMNEAL PHARMACE, 30 ml SQUEEZ BTL Active [id number] 2023 30 Pharmac y Data Transac tion Service Facilit y BUSPIRONE HCL (buspirone HCl), 5 MG, TABLET, ORAL, [employer] 500 ea. BOTTLE Active [id number] 4 2023 180 Pharmac y Data Transac tion Service Facilit y BUSPIRONE HCL 5MG TAB TAKE ONE TABLET BY MOUTH TWICE A DAY ORAL ACTIVE DE FÉLIXTESFAYEI D L 2023 [facility] CALCIUM 500MG/VITAM IN D 200UNT TAB TAKE 1 TABLET BY MOUTH TWICE A DAY WITH MEALS ORAL ACTIVE 07/27/2025 [id number] 5 DE FÉLIX,MARIZA D L 2024 180 [facility] CALCIUM 500MG/VITAM IN D 200UNT TAB TAKE 1 TABLET BY MOUTH TWICE A DAY WITH MEALS ORAL DISCONT INUED 09/14/2024 [id number] 4 DE FÉLIX,MARIZA D L 2023 180 [facility] CARBIDOPA 10MG/LEVODO PA 100MG TAB TAKE ONE TABLET BY MOUTH DIRECTED ORAL ACTIVE KIAH BARRETTD L 2020 [facility] CARBIDOPA 10MG/LEVODO PA 100MG TAB TAKE ONE TABLET BY MOUTH THREE TIMES A DAY ORAL ACTIVE DE TESFAYE HEARDI D L 2023 [facility] CARBIDOPA-L EVODOPA (carbidopa/ levodopa), 10MG-100MG, TABLET, ORAL, [employer], 500 ea. BOTTLE Active [id number] 2023 30 Pharmac y Data Transac tion Service Facilit y CARVEDILOL (carvedilol ), 3.125 MG, TABLET, ORAL, [employer] 500 ea. BOTTLE Cancele d [id number] : 2023 0 Pharmac y Data Transac tion Service Facilit y CARVEDILOL (carvedilol ), 3.125 MG, TABLET, ORAL, [employer] 500 ea. BOTTLE Cancele d [id number] : 2023 0 Pharmac y Data Transac tion Service Facilit y CARVEDILOL (carvedilol ), 3.125 MG, TABLET, ORAL, [employer] 500 ea. BOTTLE Active [id number] 2023 180 Pharmac y Data Transac tion Service Facilit y CARVEDILOL (carvedilol ), 3.125 MG, TABLET, ORAL, [employer] 500 ea. BOTTLE Active [id number] 2023 180 Pharmac y Data Transac tion Service Facilit y CARVEDILOL 3.125MG TAB TAKE ONE TABLET BY MOUTH TWICE A DAY ORAL ACTIVE DEGROH,DA VID L 2021 [facility] CHOLECALCIF FELIBERTO 25MCG (1,000UNIT) TAB TAKE THREE TABLETS BY MOUTH EVERY DAY FOR VITAMIN D DEFICIEN CY ORAL ACTIVE 07/18/2025 [id number] 5 DE FÉLIX,MARIZA D L 2023 300 [facility] CHOLECALCIF FELIBERTO 25MCG (1,000UNIT) TAB TAKE THREE TABLETS BY MOUTH EVERY DAY FOR VITAMIN D DEFICIEN CY ORAL DISCONT INUED 12/24/2024 [id number] MARIZA VAIL D L 2023 300 [facility] CLOPIDOGREL (clopidogre l bisulfate), 75 MG, TABLET, ORAL, IRENA PHARMACEU, 1000 ea. BOTTLE Cancele d [id number] : 2023 0 Pharmac y Data Transac tion Service Facilit y CLOPIDOGREL (clopidogre l bisulfate), 75 MG, TABLET, ORAL, IRENA [employer]ACE[employer], 1000 ea. BOTTLE Cancele d [id number] : 2023 0 Pharmac y Data Transac tion Service Facilit y CLOPIDOGREL (clopidogre l bisulfate), 75 MG, TABLET, ORAL, IRENA [employer]ACEU, 1000 ea. BOTTLE Active [id number] 2023 90 Pharmac y Data Transac tion Service Facilit y CLOPIDOGREL BISULFATE 75MG TAB TAKE ONE TABLET BY MOUTH EVERY DAY ORAL ACTIVE DEGROH,DA VID L 2015 [facility] DIAZEPAM (DIAZEPAM), 2MG, TABLET, ORAL, [employer]AX PHARMACEUT, 500 ea. BOTTLE Cancele d [id number] : 2023 0 Pharmac y Data Transac tion Service Facilit y DIAZEPAM (DIAZEPAM), 2MG, TABLET, ORAL, [employer]UT, 500 ea. BOTTLE Cancele d [id number] : 2023 0 Pharmac y Data Transac tion Service Facilit y DIAZEPAM 2MG TAB TAKE ONE-HALF TABLET BY MOUTH AT BEDTIME ORAL ACTIVE DEGROH,DA VID L 2015 [facility] DIGOXIN (digoxin), 125 MCG, TABLET, ORAL, AMNEAL PHARMACE, 100 ea. BOTTLE Cancele d [id number] : 2023 0 Pharmac y Data Transac tion Service Facilit y DIGOXIN (digoxin), 125 MCG, TABLET, ORAL, AMNEAL PHARMACE, 100 ea. BOTTLE Cancele d [id number] : 2023 0 Pharmac y Data Transac tion Service Facilit y DIGOXIN (digoxin), 125 MCG, TABLET, ORAL, AMNEAL PHARMACE, 100 ea. BOTTLE Active [id number] 2023 90 Pharmac y Data Transac tion Service Facilit y ELIQUIS (APIXABAN), 5 MG, TABLET, ORAL, [employer] , 60 ea. BOTTLE Cancele d [id number] : 2023 0 Pharmac y Data Transac tion Service Facilit y ELIQUIS (APIXABAN), 5 MG, TABLET, ORAL, [employer] , 60 ea. BOTTLE Cancele d [id number] : 2023 0 Pharmac y Data Transac tion Service Facilit y ELIQUIS (APIXABAN), 5 MG, TABLET, ORAL, [employer] , 60 ea. BOTTLE Active [id number] 2023 180 Pharmac y Data Transac tion Service Facilit y ELIQUIS (APIXABAN), 5 MG, TABLET, ORAL, [employer] , 60 ea. BOTTLE Cancele d [id number] : 2023 0 Pharmac y Data Transac tion Service Facilit y ENSURE PLUS LIQUID VANILLA TAKE THE CONTENTS OF 1 CAN BY MOUTH TWICE A DAY FOR NUTRITIO N SUPPLEME NTATION ORAL ACTIVE 01/09/2026 [id number] 5 MIYA LIVINGSTON 2024 48 [facility] ENSURE PLUS LIQUID VANILLA TAKE THE CONTENTS OF 1 CAN BY MOUTH TWICE A DAY FOR NUTRITIO N SUPPLEME NTATION ORAL DISCONT INUED 06/17/2025 [id number] MIYA LIVINGSTON 2023 48 [facility] ENTRESTO (sacubitril /valsartan) , 24 MG-26MG, TABLET, ORAL, NOVARTIS, 60 ea. BOTTLE Cancele d [id number] : 2023 0 Pharmac y Data Transac tion Service Facilit y ENTRESTO (sacubitril /valsartan) , 24 MG-26MG, TABLET, ORAL, NOVARTIS, 60 ea. BOTTLE Active [id number] 2023 180 Pharmac y Data Transac tion Service Facilit y ENTRESTO (sacubitril /valsartan) , 24 MG-26MG, TABLET, ORAL, NOVARTIS, 60 ea. BOTTLE Active [id number] 2023 180 Pharmac y Data Transac tion Service Facilit y FAMOTIDINE 20MG TAB TAKE ONE TABLET BY MOUTH TWICE A DAY ORAL ACTIVE KIAH BARRETT 2017 [facility] FERROUS SO4 325MG TAB TAKE ONE TABLET BY MOUTH EVERY DAY (AN HOUR BEFORE OR TWO HOURS AFTER A MEAL; TAKE WITH FOOD IF THIS UPSETS YOUR STOMACH) ORAL ACTIVE 10/31/2025 [id number] 5 MARIZA VAIL 2024 100 [facility] FERROUS SO4 325MG TAB TAKE ONE TABLET BY MOUTH EVERY DAY (AN HOUR BEFORE OR TWO HOURS AFTER A MEAL; TAKE WITH FOOD IF THIS UPSETS YOUR STOMACH) [facility] 12/24/2024 [id number] 4 MARIZA VAIL 2023 100 [facility] FEXOFENADIN E HCL (fexofenadi ne HCl), 180 MG, TABLET, ORAL, 'S LAB, 100 ea. BOTTLE Cancele d [id number] : 2023 0 Pharmac y Data Transac tion Service Facilit y FUROSEMIDE (furosemide ), 20 MG, TABLET, ORAL, [employer], 1000 ea. BOTTLE Active [id number] 2023 90 Pharmac y Data Transac tion Service Facilit y FUROSEMIDE (furosemide ), 20 MG, TABLET, ORAL, [employer], 1000 ea. BOTTLE Active [id number] 2023 30 Pharmac y Data Transac tion Service Facilit y FUROSEMIDE 20MG TAB TAKE ONE TABLET BY MOUTH EVERY DAY ORAL ACTIVE 05/23/2025 [id number] 5 MARIZA VAIL L 2023 90 [facility] FUROSEMIDE 20MG TAB TAKE ONE TABLET BY MOUTH EVERY DAY [facility] 05/14/2024 [id number] 4 DE MARIZA HEARD L 2022 90 [facility] ICOSAPENT ETHYL 1GM CAP TAKE 4 CAPSULES BY MOUTH TWICE A DAY ORAL ACTIVE KIAH BARRETT L 2017 [facility] INSULIN,GLA RGINE,HUMAN 100 UNIT/ML INJ,SOLOSTA R,3ML INJECT 14 UNITS SUBCUTAN EOUSLY EVERY DAY FOR DIABETES (DISCARD PEN 28 DAYS AFTER FIRST USE) SUBCUT ANEOUS ACTIVE 08/18/2025 [id number] 5 GANGA,REBEC CA BRENDA 2024 5 [facility] INSULIN,GLA RGINE-YFGN 100UNIT/ML INJ PEN,3ML INJECT 14 UNITS SUBCUTAN EOUSLY EVERY DAY FOR DIABETES (DISCARD PEN 28 DAYS AFTER FIRST USE) (REPLACE S ODOM LANTUS PENS) SUBCUT ANEOUS DISCONT INUED 08/18/2025 [id number] GANGA,REBEC CA BRENDA 2023 5 [facility] INSULIN,GLA RGINE-YFGN 100UNIT/ML INJ PEN,3ML INJECT 16 UNITS SUBCUTAN EOUSLY EVERY DAY FOR DIABETES (DISCARD PEN 28 DAYS AFTER FIRST USE) (REPLACE S ODOM LANTUS PENS) SUBCUT ANEOUS DISCONT INUED (EDIT) 03/01/2025 [id number] GANGA,REBEC CA BRENDA 2023 5 [facility] INSULIN,GLA RGINE-YFGN 100UNIT/ML INJ PEN,3ML INJECT 15 UNITS SUBCUTAN EOUSLY EVERY DAY (DISCARD PEN 28 DAYS AFTER FIRST USE) (REPLACE S ODOM LANTUS PENS) SUBCUT ANEOUS DISCONT INUED (EDIT) 01/21/2025 [id number] 4 GANGA,REBEC CA BRENDA 2023 5 [facility] INSULIN,GLA RGINE-YFGN 100UNIT/ML INJ PEN,3ML INJECT 14 UNITS SUBCUTAN EOUSLY EVERY DAY FOR DIABETES (DISCARD PEN 28 DAYS AFTER FIRST USE) (REPLACE S ODOM LANTUS PENS) SUBCUT ANEOUS DISCONT INUED (EDIT) 12/08/2024 [id number] 4 GANGAGENEVIEVE CA BRENDA 2023 5 [facility] LOPERAMIDE HCL 2MG CAP TAKE 1 CAPSULE BY MOUTH QD ORAL ACTIVE KIAH BARRETT L 2013 [facility] MAGNESIUM OXIDE 420MG TAB TAKE ONE TABLET BY MOUTH EVERY DAY ORAL ACTIVE 07/16/2025 [id number] 5 DE MARIZA HEARD L 2023 100 [facility] MAGNESIUM OXIDE 420MG TAB TAKE ONE TABLET BY MOUTH EVERY DAY ORAL 02/20/2024 [id number] 4 DE MARIZA HEARD 2022 100 [facility] MEMANTINE HCL 28MG CAP,SA TAKE 1 CAPSULE BY MOUTH EVERY DAY ORAL ACTIVE MINO GUTIÉRREZ 2013 [facility] Memantine hydrochlori de ([employer] 30 CAPSULE, EXTENDED RELEASE in 1 BOTTLE Active [id number] 2023 90 Pharmac y Data Transac tion Service Facilit y MOMETASONE FUROATE MONOHYDRATE 50MCG/ACTUA T SUSP,NASAL, 17GM SPRAY 2 SPRAYS IN EACH NOSTRIL EVERY DAY NASAL ACTIVE DEGKIAH EDCKERD L 2013 [facility] MULTIVITS W/MINERALS TAB/CAP (NO VIT K) TAKE 1 TABLET BY MOUTH EVERY DAY ORAL ACTIVE 02/06/2026 [id number] 5 DE MARIZA HEARD L 2024 100 [facility] MULTIVITS W/MINERALS TAB/CAP (NO VIT K) TAKE 1 TABLET BY MOUTH EVERY DAY ORAL DISCONT INUED 07/27/2025 [id number] 5 DE MARIZA HEARD 2023 100 [facility] MULTIVITS W/MINERALS TAB/CAP (NO VIT K) TAKE 1 TABLET BY MOUTH EVERY DAY ORAL DISCONT INUED 08/27/2024 [id number] 4 DE MARIZA HEARD 2022 100 [facility] PAROXETINE HCL (PAROXETINE HCL), 20 MG, TABLET, ORAL, [employer] 1000 ea. BOTTLE Active [id number] 2023 90 Pharmac y Data Transac tion Service Facilit y PAROXETINE HCL 40MG TAB TAKE ONE-HALF TABLET BY MOUTH EVERY MORNING ORAL ACTIVE KIAH BARRETT VID L 2017 [facility] PERPHENAZIN E 2MG TAB TAKE ONE TABLET BY MOUTH AT BEDTIME ORAL ACTIVE MARIZA VAIL D L 2023 [facility] POTASSIUM CHLORIDE (potassium chloride), 10 MEQ, TABLET ER, ORAL, [employer], 500 ea. BOTTLE Active [id number] 2023 90 Pharmac y Data Transac tion Service Facilit y POTASSIUM CHLORIDE (potassium chloride), 10 MEQ, TABLET ER, ORAL, [employer], 500 ea. BOTTLE Active [id number] 2023 30 Pharmac y Data Transac tion Service Facilit y POTASSIUM CHLORIDE 10MEQ TAB,SA TAKE ONE TABLET BY MOUTH EVERY DAY (WITH FOOD) ORAL 08/27/2024 [id number] 4 MARIZA VAIL Iliana L 2022 90 [facility] PSYLLIUM POWDER,ORAL STIR DAILY BY MOUTH BID PRN ORAL ACTIVE KIAH BARRETTD L 2018 [facility] REMEDY SILICONE CREAM,TOP APPLY A SUFFICIE NT AMOUNT EXTERNAL LY DIRECTED NEEDED FOR SKIN IRRITATI ON TOPICA L ACTIVE 10/20/2025 [id number] 5 MARIZA VAIL L 2024 120 [facility] RIVASTIGMIN E (rivastigmi ne), 13.3MG/24H, PATCH TD24, TRANSDERM, AMNEAL PHARMACE, 30 ea. BOX Active [id number] 2023 30 Pharmac y Data Transac tion Service Facilit y RIVASTIGMIN E (rivastigmi ne), 13.3MG/24H, PATCH TD24, TRANSDERM, MYLAN, 30 ea. BOX Active [id number] 2023 90 Pharmac y Data Transac tion Service Facilit y TAMSULOSIN HCL 0.4MG CAP TAKE ONE CAPSULE BY MOUTH EVERY EVENING, WITH DINNER FOR PROSTATE ORAL ACTIVE 05/05/2025 [id number] 5 MARIZA VAIL D L 2023 90 [facility] TAMSULOSIN HCL 0.4MG CAP TAKE ONE CAPSULE BY MOUTH EVERY EVENING, WITH DINNER FOR PROSTATE ORAL DISCONT INUED 02/13/2024 [id number] 4 VAILMARIZA Barrientos L 2022 90 [facility] TRAZODONE HCL (trazodone HCl), 50 MG, TABLET, ORAL, [employer], 1000 ea. BOTTLE Active [id number] 2023 90 Pharmac y Data Transac tion Service Facilit y TRAZODONE HCL (trazodone HCl), 50 MG, TABLET, ORAL, [employer]U, 100 ea. BOTTLE Active [id number] 2023 30 Pharmac y Data Transac tion Service Facilit y Allergies, Adverse Reactions, Alerts Combined list of allergies from Department of Defense and Veterans Affairs facilities. It does not include entries that were removed or entered in error. Substance Category Reaction Severity Reaction type Status Date Reported Comments Source [place] Propensity to adverse reactions to drug (finding) active 0 [facility] [place] 24HR Propensity to adverse reactions to drug (finding) Urticaria active 6 [facility] ANALGESIC(OP IOD) DRG GROUP FOR ALLERGIES Drug allergy (disorder) active 0 [facility] ANALGESIC(OP IOD) DRG GROUP FOR ALLERGIES Drug allergy (disorder) Edema of upper arm active 0 [facility] BYETTA Propensity to adverse reactions to drug (finding) active 5 [facility] canagliflozi n Drug allergy (disorder) active 5 [facility] CODEINE Propensity to adverse reactions to drug (finding) active 0 [facility] DEMEROL Propensity to adverse reactions to drug (finding) Edema of the upper extremity active 0 [facility] EXENATIDE Drug allergy (disorder) active 5 [facility] INVOKANA Propensity to adverse reactions to drug (finding) active 5 [facility] Liraglutide Drug allergy (disorder) active 5 [facility] VICTOZA 2-AVIS Propensity to adverse reactions to drug (finding) active 5 [facility] Immunizations Combined list of available immunizations from the Department of Defense and Veterans Affairs facilities. 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 Comments Source INFLUENZA, HIGH-DOSE, TRIVALENT, PF 2023 135 complet ed HISTORICA L INFORMATI ON - FROM OTHER REGISTRY, [facility] INFLUENZA, UNSPECIFIED FORMULATION 2022 88 complet ed HISTORICA L INFORMATI ON - FROM PATIENT'S RECALL, [facility] INFLUENZA, ADJUVANTED, QUADRIVALENT, PF 2022 205 complet ed HISTORICA L INFORMATI ON - FROM OTHER REGISTRY, [facility] INFLUENZA, HIGH-DOSE, QUADRIVALENT, PF 2021 197 complet ed HISTORICA L INFORMATI ON - FROM OTHER REGISTRY, [facility] INFLUENZA, UNSPECIFIED FORMULATION 2021 88 complet ed HISTORICA L INFORMATI ON - SOURCE UNSPECIFI ED, [facility] INFLUENZA, HIGH-DOSE, QUADRIVALENT, PF 2021 197 complet ed HISTORICA L INFORMATI ON - FROM OTHER REGISTRY, [facility] COVID-19 (Selftrade), MRNA, LNP-S, PF, 30 MCG/0.3 ML DOSE 3 2020 208 complet ed HISTORICA L INFORMATI ON - FROM PATIENT'S WRITTEN RECORD, [facility] DTAP 2 2020 20 complet ed HISTORICA L INFORMATI ON - FROM OTHER REGISTRY, [facility] INFLUENZA VACCINE, QUADRIVALENT, ADJUVANTED 2020 205 complet ed [facility] COVID-19 ([employer]), MRNA, LNP-S, PF, 30 MCG/0.3 ML DOSE 4 2020 208 complet ed HISTORICA L INFORMATI ON - FROM OTHER REGISTRY, [facility] COVID-19 ([employer]), MRNA, LNP-S, PF, 30 MCG/0.3 ML DOSE 3 2020 208 complet ed HISTORICA L INFORMATI ON - FROM OTHER REGISTRY, [facility] COVID-19 (PFIZER), MRNA, LNP-S, PF, 30 MCG/0.3 ML DOSE 2 2020 208 complet ed [facility] COVID-19 (PFIZER), MRNA, LNP-S, PF, 30 MCG/0.3 ML DOSE 1 2020 208 complet ed [facility] Influenza vaccine, quadrivalent, adjuvanted 2019 FRANCES MARIO () Not Given Influenza vaccine, quadrival ent, adjuvante d DoD INFLUENZA, ADJUVANTED, TRIVALENT, PF 2019 168 complet ed HISTORICA L INFORMATI ON - FROM OTHER REGISTRY, [facility] INFLUENZA, UNSPECIFIED FORMULATION 2019 88 complet ed [facility] INFLUENZA, SPLIT VIRUS, TRIVALENT, PF 8 2019 140 complet ed HISTORICA L INFORMATI ON - FROM OTHER REGISTRY, [facility] INFLUENZA, TRIVALENT, ADJUVANTED 2018 168 complet ed [facility] INFLUENZA, HIGH-DOSE, TRIVALENT, PF 7 2018 135 complet ed HISTORICA L INFORMATI ON - FROM OTHER REGISTRY, [facility] ZOSTER RECOMBINANT 2018 187 complet ed [facility] INFLUENZA, TRIVALENT, ADJUVANTED 2017 168 complet ed [facility] PNEUMOCOCCAL POLYSACCHARID E PPV23 6 2017 33 complet ed HISTORICA L INFORMATI ON - FROM OTHER REGISTRY, [facility] ZOSTER RECOMBINANT 2017 187 complet ed [facility] INFLUENZA, HIGH-DOSE, TRIVALENT, PF 6 2017 135 complet ed HISTORICA L INFORMATI ON - FROM OTHER REGISTRY, [facility] INFLUENZA (HISTORICAL) 2016 88 complet ed [facility] INFLUENZA, HIGH-DOSE, TRIVALENT, PF 5 2016 135 complet ed HISTORICA L INFORMATI ON - FROM OTHER REGISTRY, [facility] INFLUENZA, SPLIT VIRUS, QUADRIVALENT, PF 2015 150 complet ed HISTORICA L INFORMATI ON - FROM OTHER REGISTRY, [facility] INFLUENZA (HISTORICAL) 2015 88 complet ed Nel [facility] INFLUENZA, HIGH-DOSE, TRIVALENT, PF 4 2015 135 complet ed HISTORICA L INFORMATI ON - FROM OTHER REGISTRY, [facility] PNEUMOCOCCAL POLYSACCHARID E PPV23 5 2015 33 complet ed HISTORICA L INFORMATI ON - FROM OTHER REGISTRY, [facility] PNEUMOCOCCAL POLYSACCHARID E PPV23 2015 33 complet ed [facility] INFLUENZA, SPLIT VIRUS, QUADRIVALENT, PF 2014 150 complet ed HISTORICA L INFORMATI ON - FROM OTHER REGISTRY, [facility] INFLUENZA (HISTORICAL) 2014 88 complet ed RECEIVED AT [facility] INFLUENZA, SPLIT VIRUS, TRIVALENT, PF 3 2014 140 complet ed HISTORICA L INFORMATI ON - FROM OTHER REGISTRY, [facility] PNEUMOCOCCAL CONJUGATE PCV 13 3 2014 133 complet ed HISTORICA L INFORMATI ON - FROM OTHER REGISTRY, [facility] PNEUMOCOCCAL CONJUGATE PCV 13 2014 133 complet ed [facility] INFLUENZA, SEASONAL, INJECTABLE, PRESERVATIVE FREE 2013 140 complet ed [facility] INFLUENZA, UNSPECIFIED FORMULATION 2013 88 complet ed [facility] INFLUENZA, SPLIT VIRUS, TRIVALENT, PRESERVATIVE 2 2013 141 complet ed HISTORICA L INFORMATI ON - FROM OTHER REGISTRY, [facility] INFLUENZA (HISTORICAL) 2012 88 complet ed [facility] DTAP, UNSPECIFIED FORMULATION 2012 107 complet ed [facility] INFLUENZA, HIGH-DOSE, TRIVALENT, PF 1 2012 135 complet ed HISTORICA L INFORMATI ON - FROM OTHER REGISTRY, [facility] INFLUENZA (HISTORICAL) 2011 88 complet ed [facility] INFLUENZA (HISTORICAL) 2010 88 complet ed RECEIVED AT [facility] INFLUENZA, UNSPECIFIED FORMULATION 2009 88 complet ed [facility] PNEUMOCOCCAL POLYSACCHARID E PPV23 1 2009 33 complet ed HISTORICA L INFORMATI ON - FROM OTHER REGISTRY, [facility] NOVEL INFLUENZA-H1N 1-09, PRESERVATIVE- FREE 2008 126 complet ed HISTORICA L INFORMATI ON - FROM OTHER REGISTRY, [facility] NOVEL INFLUENZA-H1N 1-09, PRESERVATIVE- FREE 2008 126 complet ed [facility] L INFORMATI ON - FROM OTHER REGISTRY, [facility] NOVEL INFLUENZA-H1N 1-09, ALL FORMULATIONS 2008 128 complet ed [facility] INFLUENZA (HISTORICAL) 2008 88 complet ed [facility] PNEUMOCOCCAL POLYSACCHARID E PPV23 2006 33 complet ed PMD [facility] PNEUMOCOCCAL, UNSPECIFIED FORMULATION 2006 109 complet ed PMD [facility] FLU,3 YRS (HISTORICAL) 2005 88 complet ed [facility] Results Combined list of recent chemistry, hematology and other laboratory results from [facility] [employer] and [facility], ranging from 15 months to all on record, depending upon the facility. Order Name Results Value Reference Range Date Interpretation Specimen Comments Source CBC LEUKOCYTES [#/VOLUME] IN BLOOD BY AUTOMATED COUNT 6.1 10*3/uL 3.6 - 11.0 08/17 Specimen Type: BLOOD No comment entered. Ordering Provider: TOMASA VAIL Report Released Date/Time: Aug 16, 2024 04:40 PM Reporting Lab: [place] [id number] Performing Lab: [place] [id number] [facility] CBC ERYTHROCYT ES [#/VOLUME] IN BLOOD BY AUTOMATED COUNT 3.44 10*6/uL 4.47 - 5.83 08/17 L Specimen Type: BLOOD No comment entered. Ordering Provider: TOMASA VAIL Report Released Date/Time: Aug 16, 2024 04:40 PM Reporting Lab: [place] [id number] Performing Lab: [place] [id number] [facility] CBC HEMOGLOBIN [MASS/VOLU ME] IN BLOOD 11.7 g/dL 13.6 - 17.4 08/17 L Specimen Type: BLOOD No comment entered. Ordering Provider: TOMASA VAIL Report Released Date/Time: Aug 16, 2024 04:40 PM Reporting Lab: [address] [address] Performing Lab: [place] [id number] [facility] CBC HEMATOCRIT [VOLUME FRACTION] OF BLOOD BY AUTOMATED COUNT 34.2 40.0 - 51.0 08/17 L Specimen Type: BLOOD No comment entered. Ordering Provider: TOMASA VAIL Report Released Date/Time: Aug 16, 2024 04:40 PM Reporting Lab: [address] [address] Performing Lab: [place] [id number] [facility] CBC MCV [ENTITIC VOLUME] BY AUTOMATED COUNT 99.7 fL 80.0 - 96.0 08/17 H Specimen Type: BLOOD No comment entered. Ordering Provider: TOMASA VAIL Report Released Date/Time: Aug 16, 2024 04:40 PM Reporting Lab: [address] [address] Performing Lab: [place] [id number] [facility] CBC MCH [ENTITIC MASS] BY AUTOMATED COUNT 34.0 pg 27.0 - 31.0 08/17 H Specimen Type: BLOOD No comment entered. Ordering Provider: TOMASA VAIL Report Released Date/Time: Aug 16, 2024 04:40 PM Reporting Lab: [address] [address] Performing Lab: [place] [id number] [facility] CBC MCHC [MASS/VOLU ME] BY AUTOMATED COUNT 34.1 g/dL 31.5 - 36.5 08/17 Specimen Type: BLOOD No comment entered. Ordering Provider: TOMASA VAIL Report Released Date/Time: Aug 16, 2024 04:40 PM Reporting Lab: [address] [address] Performing Lab: [place] [id number] [facility] CBC PLATELETS [#/VOLUME] IN BLOOD BY AUTOMATED COUNT 171 10*3/uL 150 - 400 08/17 Specimen Type: BLOOD No comment entered. Ordering Provider: TOMASA VAIL Report Released Date/Time: Aug 16, 2024 04:40 PM Reporting Lab: [address] [address] Performing Lab: [place] [id number] [facility] CBC LYMPHOCYTE S/100 LEUKOCYTES IN BLOOD BY AUTOMATED COUNT 15.5 21.0 - 51.0 08/17 L Specimen Type: BLOOD No comment entered. Ordering Provider: TOMASA VAIL Report Released Date/Time: Aug 16, 2024 04:40 PM Reporting Lab: [address] [address] Performing Lab: [place] [id number] [facility] CBC MONOCYTES/ 100 LEUKOCYTES IN BLOOD BY AUTOMATED COUNT 10.1 4.0 - 8.0 08/17 H Specimen Type: BLOOD No comment entered. Ordering Provider: TOMASA VAIL Report Released Date/Time: Aug 16, 2024 04:40 PM Reporting Lab: [address] [address] Performing Lab: [place] [phone] [facility] CBC NUCLEATED ERYTHROCYT ES/100 LEUKOCYTES [RATIO] IN BLOOD BY MANUAL COUNT 0.2 /100{WBC s} 08/17 Specimen Type: BLOOD No comment entered. Ordering Provider: TOMASA VAIL Report Released Date/Time: Aug 16, 2024 04:40 PM Reporting Lab: [address] [address] Performing Lab: [address] [address] [facility] CBC ERYTHROCYT E DISTRIBUTI ON WIDTH [RATIO] BY AUTOMATED COUNT 13.2 11.2 - 15.8 08/17 Specimen Type: BLOOD No comment entered. Ordering Provider: TOMASA VAIL Report Released Date/Time: Aug 16, 2024 04:40 PM Reporting Lab: [address] [address] Performing Lab: [place] [phone] [facility] CBC NEUTROPHIL S/100 LEUKOCYTES IN BLOOD BY AUTOMATED COUNT 72.1 54.0 - 78.0 08/17 Specimen Type: BLOOD No comment entered. Ordering Provider: TOMASA VAIL Report Released Date/Time: Aug 16, 2024 04:40 PM Reporting Lab: [place] [phone] Performing Lab: [place] [phone] [facility] CBC EOSINOPHIL S/100 LEUKOCYTES IN BLOOD BY AUTOMATED COUNT 1.6 0.0 - 3.0 08/17 Specimen Type: BLOOD No comment entered. Ordering Provider: TOMASA VAIL Report Released Date/Time: Aug 16, 2024 04:40 PM Reporting Lab: [place] [phone] Performing Lab: [place] [phone] [facility] CBC BASOPHILS/ 100 LEUKOCYTES IN BLOOD BY AUTOMATED COUNT 0.7 0.0 - 3.0 08/17 Specimen Type: BLOOD No comment entered. Ordering Provider: TOMASA VAIL Report Released Date/Time: Aug 16, 2024 04:40 PM Reporting Lab: [place] [phone] Performing Lab: [place] [phone] [facility] CBC LYMPHOCYTE S [#/VOLUME] IN BLOOD BY AUTOMATED COUNT 1.0 10*3/uL 0.8 - 5.0 08/17 Specimen Type: BLOOD No comment entered. Ordering Provider: TOMASA VAIL Report Released Date/Time: Aug 16, 2024 04:40 PM Reporting Lab: [address] [address] Performing Lab: [place] [phone] [facility] CBC NEUTROPHIL S [#/VOLUME] IN BLOOD 4.4 10*3/uL 1.9 - 8.6 08/17 Specimen Type: BLOOD No comment entered. Ordering Provider: TOMASA VAIL Report Released Date/Time: Aug 16, 2024 04:40 PM Reporting Lab: [address] [address] Performing Lab: [place] [phone] [facility] CBC BASOPHILS [#/VOLUME] IN BLOOD BY AUTOMATED COUNT 0.0 10*3/uL 0.0 - 0.3 08/17 Specimen Type: BLOOD No comment entered. Ordering Provider: TOMASA VAIL Report Released Date/Time: Aug 16, 2024 04:40 PM Reporting Lab: [place] [phone] Performing Lab: [place] [phone] [facility] CBC MONOCYTES [#/VOLUME] IN BLOOD BY AUTOMATED COUNT 0.6 10*3/uL 0.1 - 0.9 08/17 Specimen Type: BLOOD No comment entered. Ordering Provider: TOMASA VAIL Report Released Date/Time: Aug 16, 2024 04:40 PM Reporting Lab: [place] [phone] Performing Lab: [place] [phone] [facility] CBC EOSINOPHIL S [#/VOLUME] IN BLOOD BY AUTOMATED COUNT 0.1 10*3/uL 0.0 - 0.3 08/17 Specimen Type: BLOOD No comment entered. Ordering Provider: TOMASA VAIL Report Released Date/Time: Aug 16, 2024 04:40 PM Reporting Lab: [address] [address] Performing Lab: [place] [phone] [facility] CBC PLATELET MEAN VOLUME [ENTITIC VOLUME] IN BLOOD BY AUTOMATED COUNT 8.6 fL 7.4 - 11.4 08/17 Specimen Type: BLOOD No comment entered. Ordering Provider: TOMASA VAIL Report Released Date/Time: Aug 16, 2024 04:40 PM Reporting Lab: [address] [address] Performing Lab: [place] [phone] [facility] COMPREHE NSIVE METABOLI C PANEL ALBUMIN [MASS/VOLU ME] IN SERUM OR PLASMA 3.9 g/dL 3.2 - 4.6 08/17 Specimen Type: PLASMA Comment: DLDLREF RANGE: NEAR [...] Aug 16, 2024 04:40 PM Reporting Lab: [place] [phone] Performing Lab: [place] [phone] [facility] COMPREHE NSIVE METABOLI C PANEL ALKALINE PHOSPHATAS E [ENZYMATIC ACTIVITY/V OLUME] IN SERUM OR PLASMA 67 U/L 40 - 150 08/17 Specimen Type: PLASMA Comment: DLDLREF RANGE: NEAR [...] Aug 16, 2024 04:40 PM Reporting Lab: [place] [phone] Performing Lab: [place] [phone] [place] [address] COMPREHE NSIVE METABOLI C PANEL ALANINE AMINOTRANS FERASE [ENZYMATIC ACTIVITY/V OLUME] IN SERUM OR PLASMA 14 U/L <55 - 55 08/17 Specimen Type: PLASMA Comment: DLDLREF RANGE: NEAR [...] Aug 16, 2024 04:40 PM Reporting Lab: [place] [address] Performing Lab: [address] COMPREHE NSIVE METABOLI C PANEL ASPARTATE AMINOTRANS FERASE [ENZYMATIC ACTIVITY/V OLUME] IN SERUM OR PLASMA 25 U/L 5 - 34 08/17 Specimen Type: PLASMA Comment: DLDLREF RANGE: NEAR [...] Aug 16, 2024 04:40 PM Reporting Lab: [place] [address] Performing Lab: [address] COMPREHE NSIVE METABOLI C PANEL UREA NITROGEN [MASS/VOLU ME] IN SERUM OR PLASMA 31 mg/dL 8.4 - 25.7 08/17 H Specimen Type: PLASMA Comment: DLDLREF RANGE: NEAR [...] Aug 16, 2024 04:40 PM Reporting Lab: [place] [phone] Performing Lab: [place] [phone] COMPREHE NSIVE METABOLI C PANEL CALCIUM [MASS/VOLU ME] IN SERUM OR PLASMA 9.1 mg/dL 8.8 - 10.0 08/17 Specimen Type: PLASMA Comment: DLDLREF RANGE: NEAR [...] Aug 16, 2024 04:40 PM Reporting Lab: [place] [phone] Performing Lab: [address] COMPREHE NSIVE METABOLI C PANEL CREATININE [MASS/VOLU ME] IN SERUM OR PLASMA 1.5 mg/dL 0.72 - 1.25 08/17 H Specimen Type: PLASMA Comment: DLDLREF RANGE: NEAR [...] Aug 16, 2024 04:40 PM Reporting Lab: [place] [phone] Performing Lab: [place] [phone] [facility] COMPREHE NSIVE METABOLI C PANEL CARBON DIOXIDE, TOTAL [MOLES/VOL UME] IN SERUM OR PLASMA 30 mmol/L 23 - 31 08/17 Specimen Type: PLASMA Comment: DLDLREF RANGE: NEAR [...] Aug 16, 2024 04:40 PM Reporting Lab: [place] [phone] Performing Lab: [place] [phone] [facility] COMPREHE NSIVE METABOLI C PANEL GLUCOSE [MASS/VOLU ME] IN SERUM OR PLASMA 131 mg/dL 82 - 115 08/17 H Specimen Type: PLASMA Comment: DLDLREF RANGE: NEAR [...] Aug 16, 2024 04:40 PM Reporting Lab: [place] [phone] Performing Lab: [place] [phone] [facility] COMPREHE NSIVE METABOLI C PANEL PROTEIN [MASS/VOLU ME] IN SERUM OR PLASMA 6.6 g/dL 6.4 - 8.3 08/17 Specimen Type: PLASMA Comment: DLDLREF RANGE: NEAR [...] Aug 16, 2024 04:40 PM Reporting Lab: [place] [phone] Performing Lab: [address] COMPREHE NSIVE METABOLI C PANEL SODIUM [MOLES/VOL UME] IN SERUM OR PLASMA 142 mmol/L 136 - 145 08/17 Specimen Type: PLASMA Comment: DLDLREF RANGE: NEAR [...] Aug 16, 2024 04:40 PM Reporting Lab: [place] [phone] Performing Lab: [place] [phone] [place] [address] COMPREHE NSIVE METABOLI C PANEL CHLORIDE [MOLES/VOL UME] IN SERUM OR PLASMA 104 mmol/L 98 - 107 08/17 Specimen Type: PLASMA Comment: DLDLREF RANGE: NEAR [...] Aug 16, 2024 04:40 PM Reporting Lab: [place] [phone] Performing Lab: [address] COMPREHE NSIVE METABOLI C PANEL BILIRUBIN. TOTAL [MASS/VOLU ME] IN SERUM OR PLASMA 0.8 mg/dL 0.2 - 1.2 08/17 Specimen Type: PLASMA Comment: DLDLREF RANGE: NEAR [...] Aug 16, 2024 04:40 PM Reporting Lab: [place] [phone] Performing Lab: [address] COMPREHE NSIVE METABOLI C PANEL POTASSIUM [MOLES/VOL UME] IN SERUM OR PLASMA 4.6 mmol/L 3.5 - 5.1 08/17 Specimen Type: PLASMA Comment: DLDLREF RANGE: NEAR [...] Aug 16, 2024 04:40 PM Reporting Lab: [place] [phone] Performing Lab: [address] COMPREHE NSIVE METABOLI C PANEL ANION GAP IN SERUM OR PLASMA 12.6 mmol/L 10 - 20 08/17 Specimen Type: PLASMA Comment: DLDLREF RANGE: NEAR [...] Aug 16, 2024 04:40 PM Reporting Lab: [place] [phone] Performing Lab: [place] [phone] [place] [address] COMPREHE NSIVE METABOLI C PANEL GLOMERULAR FILTRATION RATE/1.73 SQ M.PREDICTE D [VOLUME RATE/AREA] IN SERUM, PLASMA OR BLOOD BY CREATININE -BASED FORMULA (CKD-EPI 2020) 46.0 mL/min 08/17 Specimen Type: PLASMA Comment: DLDLREF RANGE: NEAR [...] Aug 16, 2024 04:40 PM Reporting Lab: [place] [phone] Performing Lab: [place] [phone] [facility] DIABETIC URINALYS IS PANEL SPECIFIC GRAVITY OF URINE 1.014 1.016 - 1.022 08/17 L Specimen Type: URINE No comment entered. Ordering Provider: TOMASA VAIL Report Released Date/Time: Aug 16, 2024 04:40 PM Reporting Lab: [address] [address] Performing Lab: [place] [phone] [facility] DIABETIC URINALYS IS PANEL GLUCOSE [MASS/VOLU ME] IN URINE BY TEST STRIP Negative mg/dL 08/17 Specimen Type: URINE No comment entered. Ordering Provider: TOMASA VAIL Report Released Date/Time: Aug 16, 2024 04:40 PM Reporting Lab: [place] [phone] Performing Lab: [place] [phone] [facility] DIABETIC URINALYS IS PANEL PROTEIN [MASS/VOLU ME] IN URINE BY TEST STRIP Negative mg/dL 08/17 Specimen Type: URINE No comment entered. Ordering Provider: TOMASA VAIL Report Released Date/Time: Aug 16, 2024 04:40 PM Reporting Lab: [place] [phone] Performing Lab: [place] [phone] [facility] DIABETIC URINALYS IS PANEL PH OF URINE BY TEST STRIP 6.5 5.0 - 8.0 08/17 Specimen Type: URINE No comment entered. Ordering Provider: TOMASA VAIL Report Released Date/Time: Aug 16, 2024 04:40 PM Reporting Lab: [address] [address] Performing Lab: [place] [phone] [facility] DIABETIC URINALYS IS PANEL LEUKOCYTES [#/AREA] IN URINE SEDIMENT BY MICROSCOPY HIGH POWER FIELD 1 /[HPF] - 4 08/17 Specimen Type: URINE No comment entered. Ordering Provider: TOMASA VAIL Report Released Date/Time: Aug 16, 2024 04:40 PM Reporting Lab: [address] [address] Performing Lab: [address] [address] [facility] DIABETIC URINALYS IS PANEL HYALINE CASTS [#/AREA] IN URINE SEDIMENT BY MICROSCOPY LOW POWER FIELD 0-2 08/17 H Specimen Type: URINE No comment entered. Ordering Provider: TOMASA VAIL Report Released Date/Time: Aug 16, 2024 04:40 PM Reporting Lab: [address] [address] Performing Lab: [address] [address] [facility] DIABETIC URINALYS IS PANEL NITRITE [PRESENCE] IN URINE BY TEST STRIP Negative 08/17 Specimen Type: URINE No comment entered. Ordering Provider: TOMASA VAIL Report Released Date/Time: Aug 16, 2024 04:40 PM Reporting Lab: [address] [address] Performing Lab: [place] [phone] [facility] DIABETIC URINALYS IS PANEL LEUKOCYTE ESTERASE [PRESENCE] IN URINE BY TEST STRIP 75 08/17 H Specimen Type: URINE No comment entered. Ordering Provider: TOMASA VAIL Report Released Date/Time: Aug 16, 2024 04:40 PM Reporting Lab: [address] [address] Performing Lab: [place] [phone] [facility] DIABETIC URINALYS IS PANEL CLARITY OF URINE Clear 08/17 Specimen Type: URINE No comment entered. Ordering Provider: TOMAAS VAIL Report Released Date/Time: Aug 16, 2024 04:40 PM Reporting Lab: [address] [address] Performing Lab: [place] [phone] [facility] DIABETIC URINALYS IS PANEL BILIRUBIN. TOTAL [MASS/VOLU ME] IN URINE BY TEST STRIP Negative mg/dL - 0.4 08/17 Specimen Type: URINE No comment entered. Ordering Provider: TOMASA VAIL Report Released Date/Time: Aug 16, 2024 04:40 PM Reporting Lab: [address] [address] Performing Lab: [place] [phone] [facility] DIABETIC URINALYS IS PANEL HEMOGLOBIN [PRESENCE] IN URINE BY TEST STRIP Negative mg/dL <0.05 - 0.05 08/17 Specimen Type: URINE No comment entered. Ordering Provider: TOMASA VAIL Report Released Date/Time: Aug 16, 2024 04:40 PM Reporting Lab: [address] [address] Performing Lab: [place] [phone] [facility] DIABETIC URINALYS IS PANEL UROBILINOG EN [MASS/VOLU ME] IN URINE Negative mg/dL - 1 08/17 Specimen Type: URINE No comment entered. Ordering Provider: TOMASA VAIL Report Released Date/Time: Aug 16, 2024 04:40 PM Reporting Lab: [place] [phone] Performing Lab: [place] [phone] [facility] DIABETIC URINALYS IS PANEL KETONES [MASS/VOLU ME] IN URINE BY TEST STRIP Negative mg/dL - 9 08/17 Specimen Type: URINE No comment entered. Ordering Provider: TOMASA VAIL Report Released Date/Time: Aug 16, 2024 04:40 PM Reporting Lab: [place] [phone] Performing Lab: [place] [phone] [facility] DIABETIC URINALYS IS PANEL COLOR OF URINE Light-Ye llow [none] 08/17 Specimen Type: URINE No comment entered. Ordering Provider: TOMASA VAIL Report Released Date/Time: Aug 16, 2024 04:40 PM Reporting Lab: [address] [address] Performing Lab: [place] [phone] [facility] DIABETIC URINALYS IS PANEL MICROALBUM IN [MASS/VOLU ME] IN URINE 2 mg/dL <10 - 10 08/17 Specimen Type: URINE No comment entered. Ordering Provider: TOMASA VAIL Report Released Date/Time: Aug 16, 2024 04:40 PM Reporting Lab: [place] [address] Performing Lab: [place] [address] [facility] DIABETIC URINALYS IS PANEL CREATININE [MASS/VOLU ME] IN URINE 84.78 mg/dL 08/17 Specimen Type: URINE No comment entered. Ordering Provider: TOMASA VAIL Report Released Date/Time: Aug 16, 2024 04:40 PM Reporting Lab: [place] [address] Performing Lab: [place] [address] [facility] DIABETIC URINALYS IS PANEL MICROALBUM IN/CREATIN INE [MASS RATIO] IN URINE 23.60 mg/g <19.9 - 19.9 08/17 H Specimen Type: URINE No comment entered. Ordering Provider: TOMASA VAIL Report Released Date/Time: Aug 16, 2024 04:40 PM Reporting Lab: [place] [address] Performing Lab: [address] FREE T4 THYROXINE (T4) FREE [MASS/VOLU ME] IN SERUM OR PLASMA 0.97 ng/dL 0.7 - 1.48 08/17 Specimen Type: PLASMA Comment: DLDLREF RANGE: NEAR [...] 16, 2024 04:40 PM Reporting Lab: [address] [address] Performing Lab: [address] [address] [facility] HEMOGLOB IN A1C HEMOGLOBIN A1C/HEMOGL OBIN.TOTAL IN BLOOD 6.3 3.6 - 5.7 08/17 H Specimen Type: BLOOD Comment: Values obtained from A1C measurement s can vary. For typical A1C assays, a reported value of 7.0 could actually be between 6.72 and 7.28 if measured by a reference method. A reported value of 9.0 could actually be between 8.73 and 9.27. Ref: http://www. ngsp.org/[place] Pdata.asp Ordering Provider: TOMASA VAIL Report Released Date/Time: Aug 16, 2024 04:40 PM Reporting Lab: [address] [address] Performing Lab: [place] [phone] [facility] LIPID PROFILE CHOLESTERO L [MASS/VOLU ME] IN SERUM OR PLASMA 96 mg/dL <199 - 199 08/17 Specimen Type: PLASMA Comment: DLDLREF RANGE: NEAR [...] 16, 2024 04:40 PM Reporting Lab: [address] [address] Performing Lab: [place] [phone] [facility] LIPID PROFILE CHOLESTERO L IN LDL [MASS/VOLU ME] IN SERUM OR PLASMA BY DIRECT ASSAY 31 mg/dL <99 - 99 08/17 Specimen Type: PLASMA Comment: DLDLREF RANGE: NEAR OR ABOVE OPTIMAL: 100-129 mg/dL BORDERLINE DLDLHIGH: 130-159 mg/dL HIGH: 160-189 mg/dL VERY HIGH: >=190 TRIG REF RANGE: BORDERLINE HIGH: 150-199 mg/dL HIGH: 200-499 mg/dL TRIG VERY HIGH: >=500 mg/dL CREA eGFR was calculated using the CKD-EPI 202 equation. CHOL REF RANGE: BORDERLINE HIGH: 200-239 mg/dL HIGH: >=240 mg/dL Ordering Provider: TOMASA VAIL Report Released Date/Time: Aug 16, 2024 04:40 PM Reporting Lab: [place] [phone] Performing Lab: [place] [phone] [facility] LIPID PROFILE CHOLESTERO L IN HDL [MASS/VOLU ME] IN SERUM OR PLASMA 34 mg/dL 60 08/17 L Specimen Type: PLASMA Comment: DLDLREF RANGE: NEAR OR ABOVE OPTIMAL: 100-129 mg/dL BORDERLINE DLDLHIGH: 130-159 mg/dL HIGH: 160-189 mg/dL VERY HIGH: >=190 TRIG REF RANGE: BORDERLINE HIGH: 150-199 mg/dL HIGH: 200-499 mg/dL TRIG VERY HIGH: >=500 mg/dL CREA eGFR was calculated using the CKD-EPI 2020 equation. CHOL REF RANGE: BORDERLINE HIGH: 200-239 mg/dL HIGH: >=240 mg/dL Ordering Provider: TOAMSA VAIL Report Released Date/Time: Aug 16, 2024 04:40 PM Reporting Lab: [place] [phone] Performing Lab: [place] [address] [facility] LIPID PROFILE TRIGLYCERI DE [MASS/VOLU ME] IN SERUM OR PLASMA 164 mg/dL <149 - 149 08/17 H Specimen Type: PLASMA Comment: DLDLREF RANGE: NEAR [...] Aug 16, 2024 04:40 PM Reporting Lab: [place] [phone] Performing Lab: [place] [address] [facility] MAGNESIU M MAGNESIUM [MASS/VOLU ME] IN SERUM OR PLASMA 2.2 mg/dL 1.6 - 2.6 08/17 Specimen Type: PLASMA Comment: DLDLREF RANGE: NEAR [...] Aug 16, 2024 04:40 PM Reporting Lab: [place] [phone] Performing Lab: [place] [address] [facility] TSH THYROTROPI N [UNITS/VOL UME] IN SERUM OR PLASMA BY DETECTION LIMIT <= 0.005 MIU/L 4.137 u[IU]/mL 0.360 - 4.500 08/17 Specimen Type: PLASMA Comment: DLDLREF RANGE: NEAR [...] Aug 16, 2024 04:40 PM Reporting Lab: [place] [phone] Performing Lab: [address] [address] [facility] VITAMIN D (TOTAL) 25-HYDROXY VITAMIN D3+25-HYDR OXYVITAMIN D2 [MASS/VOLU ME] IN SERUM OR PLASMA 54.00 ng/mL 30.00 - 75.00 08/17 Specimen Type: SERUM No comment entered. Ordering Provider: TOMASA VAIL Report Released Date/Time: Aug 16, 2024 04:40 PM Reporting Lab: [address] [address] Performing Lab: [place] [phone] [facility] VITAMIN D (TOTAL) 25-HYDROXY VITAMIN D3+25-HYDR OXYVITAMIN D2 [MASS/VOLU ME] IN SERUM OR PLASMA 47.00 ng/mL 30 - 75 03/07 Specimen Type: SERUM No comment entered. Ordering Provider: TOMASA VAIL Report Released Date/Time: Feb 18, 2024 04:01 PM Reporting Lab: [address] [address] Performing Lab: [address] [address] [facility] Vital Signs Combined list of inpatient and outpatient Vital Signs from Department of Defense and Veterans Affairs, ranging from 12 months to all on record, depending upon the facility. Vital Sign Value Date Comments Source WEIGHT 175 12/01/2024 13:21:38 [facility] BMI 27 kg/m2 12/01/2024 13:21:38 [facility] PAIN 7 08/24/2024 10:31:00 [facility] WEIGHT 182 06/16/2024 13:39:12 [facility] BMI 29 kg/m2 06/16/2024 13:39:12 [facility] SYSTOLIC BLOOD PRESSURE 132 03/13/2024 15:08:09 [facility] DIASTOLIC BLOOD PRESSURE 72 03/13/2024 15:08:09 [facility] PULSE OXIMETRY 96 03/13/2024 15:08:09 [facility] WEIGHT 189.6 03/13/2024 15:08:09 [facility] BMI 30 kg/m2 03/13/2024 15:08:09 [facility] PAIN 7 03/13/2024 15:08:09 [facility] HEIGHT 67 03/13/2024 15:08:09 [facility] TEMPERATURE 98 03/13/2024 15:08:09 [facility] PULSE 82 03/13/2024 15:08:09 [facility] RESPIRATION 20 03/13/2024 15:08:09 [facility] WEIGHT 182 02/16/2024 13:26:45 [facility] BMI 29 kg/m2 02/16/2024 13:26:45 [facility] Encounters Combined list of: 1) Encounters from Department of [facility] facilities going backup to the last 18 months, not all [place] inpatient encounters are included; 2) Encounters from the Department of [facility] facilities going backup to 280 months. Location Location Details Encounter Type Encounter Number Reason For Visit Attending Provider ADM Date DC Date Status Disposition Source [facility] Outpatient Encounter [id number] OFF[facility] O/P EST LOW 20-29 MIN [id number] Diagnos is: ICD-10- CM E11.9 Type 2 diabete s mellitu 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 DONAVAN MOISE 09/09 [place] [facility] OFFICE O/P EST MOD 30 MIN [id number] Diagnos is: ICD-10- CM 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 pctrs TOMASA VAIL 09/14 [place] [facility] OFF/OP CONSLTJ NEW/EST SF 20 [id number] Diagnos is: ICD-10- CM Z04.89 Encount er for examina tion and observa tion for oth reasons FABIAN NOVA [facility] Out[facility] Encounter [id number] SANGITA COE 09/17 [place] [facility] Outpatient Encounter [id number] 09/20 [facility] MTMS BY PHARM ADDL 15 MIN [id number] Diagnos is: ICD-10- CM E11.9 Type 2 diabete s mellitu 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 GAGNA,REBECC A BRENDA 10/06 [place] [facility] MTMS BY PHARM ADDL 15 MIN [id number] Diagnos is: ICD-10- CM E11.9 Type 2 diabete s mellitu 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 GANGA,REBECC A BRENDA 12/07 [place] [facility] OFF[facility] O/P EST LOW 20 MIN [id number] Diagnos is: ICD-10- CM E11.9 Type 2 diabete s mellitu 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 DONAVAN MOISE 12/07 [place] [facility] Out[facility] Encounter [id number] Diagnos is: ICD-10- CM Y93.9 Activit y, unspeci fied ROLL,ERICKJO RADHA K 12/13 [place] [facility] Out[facility] Encounter [id number] Diagnos is: ICD-10- CM Y93.9 Activit y, unspeci fied ROLL,ERICKJO RADHA K 12/20 [place] [facility] HC PRO PHONE CALL 21-30 MIN [id number] Diagnos is: ICD-10- CM Z74.1 Need for assista nce with persona l care KAYE MAYS K 12/20 [place] [facility] Outpatient Encounter [id number] KAYE MAYS K 12/20 [facility] Outpatient Encounter [id number] 12/28 [facility] Outpatient Encounter [id number] 12/30 [place] [facility] [place] [facility] Outpatient Encounter [id number] 01/02 ANDRE ND [facility] Outpatient Encounter [id number] 01/06 [facility] MTMS BY PHARM EST 15 MIN [id number] Diagnos is: ICD-10- CM E11.9 Type 2 diabete s mellitu 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 GANGA,REBECC A BRENDA 01/19 [facility] Outpatient Encounter [id number] 01/27 [facility] [place] [id number] Diagnos is: ICD-10- CM E11.9 Type 2 diabete s mellitu 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 MIYA LIVINGSTON 02/15 [facility] MTMS BY PHARM ADDL 15 MIN [id number] Diagnos is: ICD-10- CM E11.9 Type 2 diabete s mellitu 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 GANGA,REBECC A BRENDA 02/28 [facility] DEBRIDE NAIL 6 OR MORE [id number] Diagnos is: ICD-10- CM B35.1 Tinea unguium LEONARD GASPAR 03/07 [facility] OFFICE O/P EST MOD 30 MIN [id number] Diagnos is: ICD-10- CM E11.9 Type 2 diabete s mellitu 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 TOMASA VAIL 03/13 [facility] MTMS BY PHARM ADDL 15 MIN [id number] Diagnos is: ICD-10- CM E11.9 Type 2 diabete s mellitu 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 GANGA,REBECC A BRENDA 03/13 [facility] Outpatient Encounter [id number] 03/14 [facility] Outpatient Encounter [id number] 03/29 [facility] Outpatient Encounter [id number] 04/14 [facility] Outpatient Encounter [id number] 04/25 [facility] Outpatient Encounter [id number] 04/25 [facility] Outpatient Encounter [id number] Diagnos is: ICD-10- CM Z77.29 Contact with and exposur e to other hazardo us substan abe KALYAN BELL 04/27 [facility] MTMS BY PHARM ADDL 15 MIN [id number] Diagnos is: ICD-10- CM E11.9 Type 2 diabete s mellitu 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 SOPHIA SCHULER BRENDA 05/04 [facility] Outpatient Encounter [id number] 05/05 [facility] Outpatient Encounter [id number] 05/06 [facility] HEARING AID REPAIR/MOD IFYING [id number] Diagnos is: ICD-10- CM H90.3 Sensori neural hearing loss, JOSE Steiner S 05/08 [facility] Outpatient Encounter [id number] 05/12 [facility] MTMS BY PHARM ADDL 15 MIN [id number] Diagnos is: ICD-10- CM E11.9 Type 2 diabete s mellitu 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 GANGA,REBECC A BRENDA 06/12 [facility] DEBRIDE NAIL 6 OR MORE [id number] Diagnos is: ICD-10- CM B35.1 Tinea unguimio GILESUSLEONARD A E 06/13 [facility] MED NUTRITION INDIV SUBSEQ [id number] Diagnos is: ICD-10- CM E11.9 Type 2 diabete s mellitu 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 MIYA LIVINGSTON 06/16 [facility] Outpatient Encounter [id number] 06/19 [facility] Outpatient Encounter [id number] 06/30 [facility] Outpatient Encounter [id number] 07/13 [facility] HC PRO PHONE CALL 21-30 MIN [id number] Diagnos is: ICD-10- CM Z74.1 Need for assista nce with persona l care KAYE MAYS Ila 07/21 [facility] Outpatient Encounter [id number] Diagnos is: ICD-10- CM Y93.9 Activit y, unspeci fied KAYE MAYS 07/25 [facility] Outpatient Encounter [id number] 07/27 [facility] MTMS BY PHARM ADDL 15 MIN [id number] Diagnos is: ICD-10- CM E11.9 Type 2 diabete s mellitu 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 GANGA,REBECC A BRENDA 08/17 [facility] OFFICE O/P EST MOD 30 MIN [id number] Diagnos is: ICD-10- CM 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 TOMASA Carlson 08/24 [facility] DEBRIDE NAIL 6 OR MORE [id number] Diagnos is: ICD-10- CM E11.9 Type 2 diabete s mellitu 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 LEONARD GASPAR 08/31 [facility] Outpatient Encounter [id number] 09/01 CLECHRIS CALIXTO [facility] Outpatient Encounter [id number] 10[facility]17 [facility] MTMS BY PHARM ADDL 15 MIN [id number] Diagnos is: ICD-10- CM E11.9 Type 2 diabete s mellitu 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 GANGA,REBECC A BRENDA 11/15 [facility] OFFICE O/P EST LOW 20 MIN [id number] Diagnos is: ICD-10- CM M20.42 Other hammer toe(s) (acquir ed), left foot STODONAVAN FLORES 11/30 [facility] MED NUTRITION INDIV SUBSEQ [id number] Diagnos is: ICD-10- CM E11.9 Type 2 diabete s mellitu 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 MIYA LIVINGSTON 12/01 [facility] Outpatient Encounter [id number] Diagnos is: ICD-10- CM Y93.9 Activit y, unspeci fied KAYE MAYS 01/05 [facility] CASE MANAGEMENT [id number] Diagnos is: ICD-10- CM Z74.1 Need for assista nce with persona l care KAYE MAYS 01/05 [facility] MTMS BY PHARM ADDL 15 MIN [id number] Diagnos is: ICD-10- CM E11.9 Type 2 diabete s mellitu 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 GANGA,REBECC A BRENDA 01/18 [facility] Social History Combined list of available smoking, tobacco, and other social history from Department of Defense and Veterans Affairs facilities. Social History Type Response Date Comment Sourc e Tobacco smoking status AZIS VA-TOBACCO FORMER USER 03/13/2024 [facility] History of tobacco use VA-TOBACCO QUIT 1 5 YRS OR MORE 03/13/2024 [facility] History of tobacco use VA-TOBACCO FORMER USER 03/02/2023 [facility] History of tobacco use VA-TOBACCO FORMER USER 01/13/2022 [facility] History of tobacco use VA-TOBACCO FORMER USER 01/02/2021 [facility] History of tobacco use VA-TOBACCO QUIT 1 5 YRS OR MORE 07/27/2019 [facility] History of tobacco use VA-TOBACCO FORMER USER 12/28/2017 [facility] History of tobacco use QUIT TOBACCO >7 YEARS AGO 7 [facility] History of tobacco use QUIT TOBACCO >12 MO and <7 YRS AGO 05/29/2016 [facility] History of tobacco use QUIT TOBACCO >12 MO and <7 YRS AGO 03/05/2015 [facility] History of tobacco use QUIT TOBACCO IN T HE LAST 12 MONTHS 01/23/2014 [facility] History of tobacco use QUIT TOBACCO >12 MO and <7 YRS AGO 11/01/2012 [facility] History of tobacco use QUIT TOBACCO IN T HE LAST 12 MONTHS 10/06/2011 [facility] History of tobacco use QUIT TOBACCO >12 MO and <7 YRS AGO 08/14/2011 [facility] History of tobacco use QUIT TOBACCO >12 MO and <7 YRS AGO 11/11/2010 [facility] History of tobacco use QUIT TOBACCO IN T HE LAST 12 MONTHS 12/16/2009 [facility] History of tobacco use QUIT TOBACCO >7 YEARS AGO 6 [facility] This section is an empty social history section. DoD Plan of Care List of future care activities from Department of Veterans Affairs facilities. Additional future care activities may be listed in the Assessment and Plan section. Date/Time Care Activity Care Activity Detail Facili ty 02/16/2025 AMBULATORY - NONE AMBULATORY - NONE [facility] Advance Directives List of completed, amended, or rescinded Advance Directives on record at Department of Veterans Affairs facilities. An actual copy of the Directive is not included. Date Advance Directive Provider Source 12/21/2023 ADVANCE DIRECTIVE DISCUSSION TABATHA,FER HWANG [facility]
--- OUTSIDE RECORDS SUMMARY | 2025-02-10 12:45 | XMS_ITS ---
Author Organization [facility] Address [address] [place] [address] Phone Care Team Providers Care Frame Builder Name Role Phone Maicol Anderson Primary Care Prov ider Active Problems Problem Noted Date Diagnosed Date Medication course changed 02/02/2025 Coronary artery disease invo lving autologous artery coronary bypass graft without angina pectoris 02/02/2025 Atrial fibrillation, unspecified type (Multi) Presence of Watchman left atrial appendage closu re device 10/19/2024 Atrial fibrillation (Multi) 09/29/2024 Weight loss 07/27/2024 Falls frequently 07/27/2024 Former smoker 04/24/2024 Stage 3b chronic kidney disease (Multi) 04/24/20 24 Nonrheumatic mitral valve regurgitation 04/24/20 24 Nonrheumatic aortic valve insufficiency 04/24/20 24 Body mass index (BMI) of 30.0-30.9 in adult 12/12 Body mass index (BMI) of 29.0 to 29.9 in adult 0 12/06/2023 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 10/25/2023 Bipolar disorder, current ep isode manic severe with psychotic features (Multi) 10/25/2023 Sacroiliitis, not elsewhere classified Idiopathic chronic pancreatitis (Multi) 10/25/19 24 Dementia in other diseases c lassified elsewhere, unspecified severity, without behavioral disturbance, psychotic disturbance, mood disturbance, and anxiety (Multi) 10/25/2023 Major depressive disorder, recurrent, moderate 0 10/25/2023 Acute embolism and thrombosi s of right peroneal vein (Multi) 10/25/2023 Prostate CA (Multi) 10/25/2023 Congestive heart failure, NYHA class 3, chronic, systolic 10/25/2023 ICD (implantable cardioverter-defibrillator) in place 08/30/2023 Abnormal EKG 08/30/2023 Hx of coronary artery bypass graft 08/30/2023 Coronary artery disease invo lving [place] coronary artery of [place] heart without angina pectoris 08/30/2023 Obstructive sleep apnea syndrome 08/30/2023 Permanent atrial fibrillation (Multi) 08/30/2023 buttermaker continuous churn 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 1 10/31/2022 Shortness of breath 08/30/2023 Parkinson disease (Multi) 08/30/2023 History of stroke 08/30/2023 BPH (benign prostatic hyperplasia) 08/30/2023 Ischemic cardiomyopathy 08/30/2023 Diabetes mellitus (Multi) 08/30/2023 Current Treatment and Therapy Plans No current plan information found. Past Treatment and Therapy Plans No past plan information found. Lifetime Dose Tracking * Chemical Lifetime Dose Automatic Entry Manual Entr y Fluoro Time 21.4 minutes 0 minutes 21.4 minutes Air Kerma 1,678 mGy 0 mGy 1,678 mGy
--- OUTSIDE RECORDS SUMMARY | 2025-02-10 12:46 | XMS_ITS | Clinical Summary ---
Author Organization [facility] Address [address] [place] [address] Care Team Providers Care Electronic Scanner Operator Name Role Phone Maicol Anderson MD Primary Care Provider Allergies Active Allergy Reactions Criticality Noted Date Comments Fexofenadine Hydrochloride Itching 02/04/2012 Exenatide High 04/08/2016 Canagliflozin 10/08/2021 Codeine Other (See Comments) High 02/04/2012 hallucinations Demerol Swelling High 02/04/2012 Swelling of arms Fexofenadine Hcl Itching 07/27/2016 Sitagliptin High 05/06/2015 Morphine 10/08/2021 Ibuprofen 04/04/2018 Other/Food Itching 05/06/2015 Invokanna Oxycodone-Acetaminophen Other (See Comments) High hallucination Ropinirole 10/08/2021 Liraglutide High 12/02/2016 Medications therapeutic multivitamin-mi nerals (THERAGRAN-M) tablet Take 1 tablet by mouth daily Active nitroGLYCERIN (NITROSTAT) 0.[address] 1 tablet under the tongue every 5 minutes as needed for Chest pain Active Calcium Carbonate-Vitam in D (CALCIUM-VITAMI N D) 500-200 MG-UNIT per tablet Take 1 tablet by mouth daily Active acetaminophen (TYLENOL) 500 MG tablet Take 1 tablet by mouth every 8 hours as needed for Pain Active rivastigmine (EXELON) 13.3 MG/24HR Place 1 patch onto the skin daily Active furosemide (LASIX) 20 MG tablet Take 1 tablet by mouth Daily with lunch Active potassium chloride (MICRO-K) 10 MEQ CR capsule Take 1 capsule by mouth 4 times daily Active Magnesium Oxide 420 MG TABS Take 420 mg by mouth daily Active Loratadine 10 MG CAPS Take 1 capsule by mouth every other day Active vitamin D (CHOLECALCIFERO L) 1000 UNIT TABS tablet Take 3 tablets by mouth Daily with supper Active insulin glargine (LANTUS;BASAGLA R) 100 UNIT/ML injection pen Inject 25 Units into the skin daily (with breakfast) Active NOVOLOG FLEXPEN 100 UNIT/ML injection penIndications: BS 150-200, 1 Unit+1 Unit, BS 201-250, 2unit-1 Unit, 251-300, 3 unit+1Unit Inject into the skin daily (with breakfast) 7 Active carboxymethylce llulose (REFRESH PLUS) 0.5 % SOLN ophthalmic solution 1 drop 3 times daily Active simethicone (MYLICON) 80 MG chewable tablet Take 1 tablet by mouth 4 times daily as needed for Flatulence Active Pancrelipase, Uzs-Fqzl-Runt, (CREON PO) Take 36,000 Units by mouth 3 times daily (with meals) Take 3 CAPSULES WITH ALL FOOD TAKEN DURING THE DAY Active PARoxetine HCl (PAXIL PO) Take 20 mg by mouth daily Active tamsulosin (FLOMAX) 0.4 MG capsule Take 1 capsule by mouth 2 times daily 180 capsule 3 8 Active Additional Information Patient taking differently:0.4 mg OralDAILY, Reported on 03/30/2023 ELIQUIS 5 MG TABS tablet Take 1 tablet by mouth 2 times daily 9 Active carbidopa-levod opa (SINEMET) 10-100 MG per tablet Take 0.5 tablets by mouth 2 times daily Active ferrous sulfate (IRON 325) 325 (65 Fe) MG tablet Take 1 tablet by mouth daily (with breakfast) Active fluticasone (FLONASE) 50 MCG/ACT nasal spray 1 spray by Each Nostril route daily Active omeprazole (PRILOSEC) 20 MG delayed release capsule Take 1 capsule by mouth 2 times daily Active carvedilol (COREG) 3.125 MG tablet Take 1 tablet by mouth 2 times daily (with meals) 3 Active diazePAM (VALIUM) 2 MG tablet TAKE 1/2 TABLET BY MOUTH ONCE EVERY EVENING 3 Active memantine ER (NAMENDA XR) 28 MG CP24 extended release capsule 3 Active clopidogrel (PLAVIX) 75 MG tablet TAKE 1 TABLET DAILY 90 tablet 3 3 Active Active Problems Patient Care Coordination No te Formatting of this note migh t be different from the original. DME: Pharmacy Counter phone: [phone] fax: [phone] This patient is being followed by [facility] Ortho Bundle:Mona Briseno Dates of Follow up: 12/02/2017 to 03/04/2018 ECF/SNF - ? Phone: ? Home Care Agency - ? Phone: ? Myrbetriq 50 mg approved 04/02/17-09/12/2099. $24 / day supply.NB Problem Noted Date Diagnosed Date S/P ICD (internal cardiac defibrillator) procedu re 06/12/2019 PAF (paroxysmal atrial fibrillation) 12/03/2017 Type 2 diabetes mellitus 12/03/2017 Arthritis of knee 12/02/2017 Benign prostatic hyperplasia with urinary obstru ction 04/02/2015 Overview (06/26/2017): Updating Deprecated Diagnoses Calculus of kidney 04/02/2015 Personal history of malignant neoplasm of prosta te 04/02/2015 Impotence of organic origin 04/02/2015 Disorder of kidney and ureter 04/02/2015 Urge incontinence 04/02/2015 Urinary frequency 04/02/2015 Gross hematuria 10/06/2013 Anemia due to blood loss, acute 10/06/2013 MIGUEL ANGEL (acute kidney injury) 10/06/2013 S/P total knee arthroplasty 10/04/2013 OA (osteoarthritis) 10/04/2013 Anemia associated with acute blood loss 10/04/19 14 Obesity (BMI 30.0-34.9) 10/04/2013 COPD (chronic obstructive pulmonary disease) CAD (coronary artery disease) Cardiomyopathy Hypertension PTSD (post-traumatic stress disorder) Immunizations Immunization Administration Dates Next Due Influenza Virus Vaccine 07/14/2011 Family History Medical History Relation Name Comments Brain Cancer Brother Heart Attack Brother Heart Disease Brother Kidney Disease Brother stones Prostate Cancer Brother spread to br ain & bone Other Father killed in 1947 Breast Cancer Mother Diabetes Mother Heart Disease Mother Uterine Cancer Mother Diabetes Paternal Aunt High Blood Pressure Paternal Grandmother Other Paternal Grandmother Brain A neurysm Breast Cancer Sister Relation Name Status Comments Brother Father Maternal Grandfather Maternal Grandmother Mother Paternal Aunt Paternal Grandfather Paternal Grandmother Sister Alive Social History Tobacco Use Types Packs/Day Years [...] on file Sexual Orientation Not on file Last Filed Vital Signs Vital Sign Reading Time Taken Comments Blood Pressure 146/64 03/30/2023 1:27 PM EDT Pulse 62 03/30/2023 1:27 PM EDT Temperature 36.2 C (97.1 F) 11/25/2022 10:50 AM EDT Respiratory Rate 16 03/30/2023 1:27 PM EDT Oxygen Saturation 99% 03/30/2023 1:27 PM EDT Inhaled Oxygen Concentration - - Weight 87.1 kg (192 lb) 03/30/2023 1:27 PM EDT Height 167.6 cm (5' 6 ) 03/30/2023 1:27 PM EDT Body Mass Index 30.99 03/30/2023 1:27 PM EDT Plan of Treatment Health Maintenance Due Date Last Done Comments Depression Screen 1954 Diabetic Alb to Cr ratio (uACR) test 1960 Shingles vaccine (1 of 2) 1992 Respiratory Syncytial Virus (RSV) or age 60 yrs+ (1 - 1-dose 75+ series) 2017 GFR test (Diabetes, CKD 3-4, OR last GFR 15-59) 06/13/2020 06/13/2019, 06/12/2019, 12/03/2017, Additional history exists Prostate Specific Antigen (PSA) Screening or Monitoring 02/22/2021 02/23/2020, 08/18/2019, 04/01/2018, Additional history exists Annual Wellness Visit (Medicare) 08/09/2023 COVID-19 Vaccine ( season) 2024 09/01/2021, 03/04/2021, 02/11/2021, Additional history exists Flu vaccine (Season Ended) 04/13/202508/29, 06/08/2022, 06/13/2021, Additional history exists DTaP/Tdap/Td vaccine (2 - Tdap) 07/21/2031 07/21/2021 Pneumococcal 50+ years Vaccine Completed 06/29/2018, 06/10/2016, 05/29/2015, Additional history exists Hepatitis A vaccine Aged Out No longe r eligible based on patient's age to complete this topic Hepatitis B vaccine Aged Out No longe r eligible based on patient's age to complete this topic Hib vaccine Aged Out No longer eligi ble based on patient's age to complete this topic Meningococcal (ACWY) vaccine Aged Out No longer eligible based on patient's age to complete this topic Meningococcal B vaccine Aged Out No l onger eligible based on patient's age to complete this topic Polio vaccine Aged Out No longer elig ible based on patient's age to complete this topic Medical Devices Implanted Type Area Pole Inspector Device Identifier Shelf Expiration Date Model / Serial / Lot Cement Barium Radiopq Full 40gr Implanted:Qty: 1 on 12/02/2017 by Jay Vergaar MD at [facility] Cement Right: Knee [employer]: ORTH[employer]-PMM 01/11/2020 [id number] / / [id number] Cement Barium Radiopq Full 40gr Implanted:Qty: 1 on 12/02/2017 by Jay Vergara MD at [facility] Cement Right: Knee [employer]: ORTHOPA[employer]-PMM 01/11/2020 [id number] / / [id number] Impl Knee X3 Patella Implanted:Qty: 1 on 12/02/2017 by Jay Vergara MD at [facility] Knee Right: Knee [employer]: ORTHOPA[employer]ICS-PMM [id number] / / Impl Capped Knee Advanced Implanted:Qty: 1 on 12/02/2017 by Jay Vergara MD at [facility] Knee Right: Knee [employer]: ORTHOPAEDICS-PM [id number] / / Impl Knee Fem Comp Cmntd Sz 6 Implanted:Qty: 1 on 12/02/2017 by Jay Vergara MD at [facility] Knee Right: Knee [employer]: ORTHOPA[employer]-PMM 09/30/2022 [id number] / / [id number] Impl Knee Patella Asym X3 [id number] Implanted:Qty: 1 on 12/02/2017 by Jay Vergara MD at [facility] Knee Right: Knee [employer]: ORTHOPA[employer]ICS-PMM 07/02/2021 [id number] / / [id number] Impl Knee Tib Baseplt Prime Sz 6 Implanted:Qty: 1 on 12/02/2017 by Jay Vergara MD at [facility] Knee Right: Knee [employer]: ORTHOPA[employer]ICS-PM 07/05/2022 [id number] / / [id number] Impl Knee Tib Insrt Postr X3 Sz6 11mm Implanted:Qty: 1 on 12/02/2017 by Jay Vergara MD at [facility] Knee Right: Knee [employer]: ORTHOPAEDICS-[facility] 12/09/2021 [id number] / / [id number] Stimulator Neuro Pulse Implanted:Qty: 1 on 04/27/2017 by Petr Galvez MD at [facility] Spine:Stim ulator N/A: Back [employer]-PM 08/10/2018 [id number] / / Pacemaker Implanted:(Thiago ntity not on file) Explanted:(Thiago ntity not on file) Lt Knee Implanted:(Thiago ntity not on file) Explanted:(Thiago ntity not on file) Procedures Procedure Name Priority Date/Time Associated Diagnosis Comments PSA, DIAGNOSTIC Routine 02/23/2020 Personal history of malignant neoplasm of prostate BASIC METABOLIC PANEL Routine 06/13/2019 4:26 AM EDT from Last 3 Months or Most Recently Relevant to Health Maintenance Results * PSA, Diagnostic (02/23/2020) PSA 0.82 ng/mL BLOOD SPECIMEN / Unknown 02/23/2020 Petr Galvez MD CHEMISTRY ORDERABLES Edit ed Result - Final * (ABNORMAL) Basic Metabolic Panel (06/13/2019 4:26 AM EDT) Glucose 111(H) 70 - 99 mg/dL 06/13/2019 4:26 AM EDT [facility] BUN 26(H) 8 - 23 mg/dL 06/13/2019 4:26 AM EDT [facility] Creatinine 1.12 0.70 - 1.20 mg/dL 06/13/2019 4:26 AM EDT [facility] BUN/Creatinine Ratio NOT REPORTED 06/13/2019 4:26 AM EDT [facility] Calcium 8.3(L) 8.6 - 10.4 mg/dL 06/13/2019 4:26 AM EDT [facility] Sodium 141 135 - 144 mmol/L 06/13/2019 4:26 AM EDT [facility] Potassium 4.0 3.7 - 5.3 mmol/L 06/13/2019 4:26 AM EDT [facility] Chloride 104 98 - 107 mmol/L 06/13/2019 4:26 AM EDT [facility] CO2 26 20 - 31 mmol/L 06/13/2019 4:26 AM EDT [facility] Anion Gap 11 9 - 17 mmol/L 06/13/2019 4:26 AM EDT [facility] GFR Non- >60 >60 mL/min 06/13/2019 4:26 AM EDT [facility] GFR >60 >60 mL/min 06/13/2019 4:26 AM EDT [facility] GFR Comment 06/13/2019 4:26 AM EDT [facility] Comment: Average GFR for 70 or more years old: 75 mL/min/1.73sq m Chronic Kidney Disease: <60 mL/min/1.73sq m Kidney failure: <15 mL/min/1.73sq m eGFR calculated using average adult body mass. Additional eGFR calculator available at: http://www.globalrph.com/multiple_crcl_2012.htm GFR Staging NOT REPORTED 06/13/2019 4:26 AM EDT [facility] BLOOD SPECIMEN / Unknown 06/13/2019 4:26 AM EDT 06/13/2019 4:42 AM EDT Clement Zuleta MD CHEMISTRY ORDERABLES Final Resul t [facility] [address] [place] [address], [facility] [phone] from Last 3 Months or Most Recently Relevant to Health Maintenance Insurance [facility] MEDICARE SUPP MEDICARE FOR [employer] MEDICARE SUPP MEDICARE TRICARE FOR LIFE MEDICARE SUPP MEDICARE Member Subscriber Plan / Payer ( fective 2007-Present) Name:Jose Shelby Relation to Subscriber:Self Name:Jose Shelby Payer ID:Not on file Group ID:Not on file Type:Not on file Address: [address] [facility] MEDICARE SUPP Advance Directives Documents on File Type Date Recorded Patient Channel Man Expl anation ACP-Advance Directive 10/15/2013 9:06 AM ACP-Power of Non Profit Job Titles 10/15/2013 9:06 AM * Full Code (Latest Code Status on File) Date Activated Date Inactivated Comments 06/12/2019 2:57 PM 06/13/2019 3:17 PM * Full Code Date Activated Date Inactivated Comments 06/12/2019 12:40 PM 06/12/2019 2:57 PM * Full Code Date Activated Date Inactivated Comments 12/02/2017 8:25 PM 12/06/2017 5:28 PM * Full Code Date Activated Date Inactivated Comments 05/28/2015 6:29 PM 05/29/2015 5:24 PM * Full Code Date Activated Date Inactivated Comments 05/28/2015 2:25 PM 05/28/2015 6:29 PM Care Teams Electronic Scanner Operator Relationship Specialty Start Date End Date Maicol Anderson MD [address] [place] [address] PCP - General Family Medicine 07/27/16
--- OUTSIDE RECORDS SUMMARY | 2025-02-10 12:46 | XMS_ITS | Clinical Summary ---
Author Organization [employer] Address [facility] [id number] [address] [place] [address] Care Team Providers Care Sports Team Marketing Intern Name Role Phone Maicol Anderson DO Primary Care Provider Allergies Active Allergy Reactions Criticality Noted Date Comments Fexofenadine Hives,Rash Low 04/08/2016 Codeine 04/08/2016 Other reaction(s): makes him feel funny Meperidine 04/08/2016 Other reaction(s): states he just knows he can't take it but unsure why Exenatide Itching 04/08/2016 Fexofenadine Hcl Itching 04/13/2016 Canagliflozin 04/08/2016 Liraglutide 04/08/2016 Meperidine (Pf) 10/27/2016 Other reaction(s): Unknown Other Itching 05/06/2015 Invokanna Invokanna Oxycodone-Acetaminophen Other (See Comments) hallucination Sitagliptin 04/08/2016 Medications rivastigmine (EXELON) 13.3 mg/[address] on the skin. Active insulin aspart (NovoLOG) 100 unit/mL insulin pen Inject under the skin. Active dextroamphetamin e-amphetamine (ADDERALL) 30 mg tablet Take 20 mg by mouth. Active BIOTIN ORAL Take by mouth. Act cyn CALCIUM CARBONATE/VITAMI N D3 (CALCIUM 500 + D ORAL) Take by mouth. A ctive loratadine (CLARITIN) 10 mg tablet Take 10 mg by mouth. Active DAILY MULTI-VITAMIN ORAL Take by mouth. Activ e diazepam (VALIUM) 2 mg tablet Take 1 mg by mouth. Active DOXEPIN HCL (DOXEPIN ORAL) Take 25 mg by mouth. Active FERROUS SULFATE ORAL Take 325 mg by mouth 2 (two) times a day. Active gemfibrozil (LOPID) 600 mg tablet Take 600 mg by mouth. Active LOPERAMIDE HCL (IMODIUM A-D ORAL) Take 2 mg by mouth. Active furosemide (LASIX) 20 mg tablet Take 20 mg by mouth. Active LISINOPRIL ORAL Take 2.5 mg by mouth. Active MEMANTINE HCL (NAMENDA ORAL) Take by mouth. Active NIACIN ORAL Take 1,000 mg by mouth. Active CYPROHEPTADINE HCL (CYPROHEPTADINE ORAL) Take 2 mg by mouth. Active CLOPIDOGREL BISULFATE (PLAVIX ORAL) Take 75 mg by mouth. Active POTASSIUM CHLORIDE ORAL Take 10 mEq by mouth. Active PANTOPRAZOLE SODIUM (PROTONIX ORAL) Take 40 mg by mouth 2 (two) times a day. Active tamsulosin (FLOMAX) 0.4 mg capsule,extended release 24hr Take by mouth. Ac tive CHOLECALCIFEROL, VITAMIN D3, (VITAMIN D3 ORAL) Take by mouth. Activ e warfarin (COUMADIN) 3 mg tablet Take by mouth. Only half a tab on Wednesday. Active lipase-protease- amylase (CREON) 36,000-114,000- 180,000 unit capsule,delayed release(DR/EC) Take 2 capsules (72,000 units of lipase total) by mouth 3 (three) times a day with meals. 180 capsule 6 6 Active Additional Information Patient not taking.Reported on 08/04/2019 PARoxetine (PAXIL) 10 mg tablet Take 20 mg by mouth every morning. Active OYSTER SHELL CALCIUM-VIT D3 500 mg(1,250mg) -200 unit per tablet 7 Active nitroglycerin (NITROSTAT) 0.[address] 0.4 mg under the tongue every 5 minutes as needed for Chest pain. Active insulin glargine (LANTUS SOLOSTAR) 100 unit/mL (3 mL) insulin pen Inject under the skin daily. Active MIRABEGRON (MYRBETRIQ ORAL) Take by mouth daily. Active RABEprazole (ACIPHEX) 20 mg EC tabletIndication s:Gastroesophage al reflux disease without esophagitis Take 1 tablet (20 mg total) by mouth daily. 90 tablet 3 8 Active Additional Information Patient not taking.Reported on 08/04/2019 famotidine (PEPCID) 20 mg tablet Take 1 tablet (20 mg total) by mouth 2 (two) times a day. 30 tablet 6 8 Active CREON 36,000-114,000- 180,000 unit capsule,delayed release(DR/EC) TAKE 2 CAPSULES THREE TIMES A DAY WITH MEALS 540 capsule 6 8 Active fluticasone propionate (FLONASE) 50 mcg/actuation nasal spray 9 Active metoprolol succinate XL (TOPROL-XL) 25 mg 24 hr tablet 9 Active midodrine (PROAMATINE) 5 mg tablet 9 Active ELIQUIS 5 mg tablet 9 Active famotidine (PEPCID) 20 mg tablet TAKE 1 TABLET TWICE A DAY 180 tablet 3 0 Active pen needle, diabetic (BD ULTRA-FINE BARRY PEN NEEDLE) 32 gauge x 5/32 needle 5x daily E11.69 500 each 3 3 Active Active Problems Problem Noted Date Diagnosed Date Idiopathic chronic pancreatitis 08/04/2019 CAD (coronary artery disease) 07/24/2019 Chronic anticoagulation 07/24/2019 Overview (07/24/2019): Overview: coumadin, asa, and plavix Chronic diarrhea 07/24/2019 COPD (chronic obstructive pulmonary disease) 07/2019 Diabetes 07/24/2019 Former smoker 07/24/2019 Hypertension 07/24/2019 High cholesterol 07/24/2019 Cardiomyopathy 07/24/2019 SD (myocardial infarction) 07/24/2019 Overview (07/24/2019): Overview: x2 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 (07/24/2019): Overview: uses bipap at night Neck pain 07/24/2019 Pacemaker 07/24/2019 Prostate CA 07/24/2019 PTSD (post-traumatic stress disorder) 07/24/2019 Stroke (cerebrum) 07/24/2019 Arthritis 07/24/2019 Exocrine pancreatic insufficiency 06/08/2017 Pancreatitis 10/27/2016 Anemia 04/13/2016 Overview (04/13/2016): Onset Date: Oct 2013 Diarrhea 04/13/2016 Gastroesophageal reflux disease 04/13/2016 Arthritis of right hip 02/20/2016 Cubital tunnel syndrome 02/20/2016 BPH (benign prostatic hypertrophy) with urinary obstruction 04/02/2015 Overview (06/13/2021): 06/13 Regulatory Import Disorder of kidney and ureter 04/02/2015 ED (erectile dysfunction) of organic origin 03/14 Increased frequency of urination 04/02/2015 Kidney stone 04/02/2015 Personal history of prostate cancer 04/02/2015 Urge incontinence 04/02/2015 MIGUEL ANGEL (acute kidney injury) 10/06/2013 Gross hematuria 10/06/2013 Anemia due to acute blood loss 10/04/2013 Obesity (BMI 30.0-34.9) 10/04/2013 S/P total knee arthroplasty 10/04/2013 Family History Medical History Relation Name Comments Cancer Brother 2 Cancer Mother Cancer Sister 2 Relation Name Status Comments Brother 1 Brother 2 Father Maternal Grandfather Maternal Grandmother Mother Paternal Grandfather Paternal Grandmother Sister 1 Alive Sister 2 Social History Tobacco Use Types Packs/Day Years Used Date Smoking Tobacco: Former Cigarettes 1 58 Smokeless Tobacco: Never Tobacco Cessation:Counseling Given: No Alcohol Use Standard Drinks/Week Comments No 0 (1 standard drink = 0.6 oz pur e alcohol) social Childcare Answer Date Recorded Childcare Unknown 02/20/2019 Employment Answer Date Recorded Employment Unknown 02/20/2019 Purpose - Life Answer Date Recorded Purpose and direction in life Unknown Sex and Gender Information Value Date Recorded Sex Assigned at Not on file Legal Sex Male 2:31 PM EDT Gender Identity Not on file Sexual Orientation Not on file Occupation Industry Job Start Date Job End Date Retired Not on file Not on file Not on file Last Filed Vital Signs Vital Sign Reading Time Taken Comments Blood Pressure 122/72 08/04/2019 1:49 PM EST Pulse - - Temperature - - Respiratory Rate - - Oxygen Saturation - - Inhaled Oxygen Concentration - - Weight 90.3 kg (199 lb) 08/04/2019 1:49 PM EST PT REPORTED WEIGHT Height 162.6 cm (5' 4 ) 06/08/2017 2:13 PM EDT Body Mass Index 34.16 06/08/2017 2:13 PM EDT Plan of Treatment Health Maintenance Due Date Last Done Comments Depression Screening 1952 Tobacco Screening 1952 DTaP,Tdap and Td Vaccines (1 - Tdap) 1961 Zoster (Shingles) Vaccine (1 of 2) 1961 Abdominal Aortic Aneurysm (AAA) Screen 12/19/2007 Fall Risk Screening 12/19/2007 Influenza Vaccine 05/14/2025 07/14/2011 Medical Devices Not on file Insurance MEDICARE [facility] Eved Care Teams Sports Team Marketing Intern Relationship Specialty Start Date End Date Maicol Anderson DO [address] [place] [address] PCP - General 02/28/16
--- OUTSIDE RECORDS SUMMARY | 2025-02-10 12:46 | XMS_ITS | CCD ---
Author Organization [facility] Care Team Providers Care On Site Coordinator Name Role Phone FABIANO WILL Unavailable Unavailable BRISTOL, SHANIQUE E Unavailable Unavailable [place], Gila E Primary Care Provider [phone] RAÚL VALE Referring Unavailable BRISTOL, SHANIQUE E Primary Care Unavailable RAÚL VALE Admitting Unavailable RAÚL VALE Attending Unavailable Ryder Pollack Unavailable Glenda Guillen Unavailable Abdon Jackman Unavailable [phone] Osvaldo Maciel Unavailable Alexei Van Unavailable [...] Unavailable DO Shanique Anderson Primary Care Provider [phone] DO Shanique Anderson Attending Provider Shanique Anderson DO Primary Care Prov ider DO Shanique Anderson Primary Care Provider MD Rosemary Cartagena Attending Provider [place], DO Gila Primary Care Provider MD Rosemary Cartagena Attending Provider ROBERT Rollins Attending Provider MARISEL Heart Other Provider [place], DO Gila Primary Care Provider MD Rosemary [place]a Attending Provider JUSTIN SHANIQUE Primary Care Physician ROSEMARY CARTAGENA Referring Unavailable BRISTOL, SHANIQUE LLANES TERESO Primary Care Unav ailable [place], DO Gila Primary Care Provider MD Rosemary Cartagena Attending Provider [phone] Melodylocatparris SANCHEZ, William Provider Primary Care Provi diomedes Viky Sage Unavailable ROBERT Rollins Attending Provider Shanique Anderson MD Primary Care Provider [place] DO, Shanique Llanes Tereso Primary Care Prov ider Susannah Palomares LPN Unavailable Unava ilable Amna Karen Unavailable FABIANO PICKERING Attending Unavailable BRISTOL, SHANIQUE SHRADDHA TERESO Primary Care Unav ailable ROSEMARY CARTAGENA Referring Unavailable FABIANO PICKERING Admitting Unavailable FABIANO PICKERING Attending Unavailable BRISTOL, SHANIQUE SHRADDHA TERESO Primary Care Unav ailable FABIANO PICKERING Referring Unavailable BRISTOL, SHANIQUE SHRADDHA TERESO Primary Care Unav ailable LANDERS MONSE R Referring Unavailable BRISTOL, SHANIQUE SHRADDHA TERESO Primary Care Unav ailable LANDERS, MONSE R Referring Unavailable BRISTOL, SHANIQUE SHRADDHA TERESO Primary Care Unav ailable [place] DO, Gila Primary Care Provider Tex Carranza MD Attending Provider [place], Gila Primary Care Unavailable Viky Rollins Admitting Unavailable Viky Rollins Attending Unavailable [place], Rosemary Attending Unavailable [place], Gila Primary Care Unavailable [place], Rosemary Admitting Unavailable [place], Rosemary Attending Unavailable [place], Gila Primary Care Unavailable [place], Rosemary Admitting Unavailable [place], Rosemary Admitting Unavailable [place], Gila Primary Care Unavailable [place], Rosemary Attending Unavailable [place], Shanique Primary Care Unavailable Saira Heart Unavailable Lowe, Viky Admitting Unavailable Lowe, Viky Attending Unavailable [place], Shanique Primary Care Unavailable Almahameed, Soufian Attending Unavailable Almahameed, Soufian Admitting Unavailable [place], Rosemary Attending Unavailable [place], Shanique Primary Care Unavailable [place], Roesmary Admitting Unavailable COOK, Petr P Attending Unavailable COOK, Petr P Referring Unavailable COOK, Petr P Admitting Unavailable COOK, Petr P Attending Unavailable Orzech, Anabel X Attending Unavailable FLORESSADAF BILLS Attending Unavailable COOK, Petr P Attending Unavailable COOK, Petr P Attending Unavailable Orzech, Anabel X Attending Unavailable Orzech, Anabel X Attending Unavailable LOWE, VIKY Attending Unavailable LOWE, VIKY Attending Unavailable LOWE, VIKY Attending Unavailable LOWE, VIKY Attending Unavailable LOWE, VIKY Attending Unavailable LOWE, VIKY Attending Unavailable UNALLOCATED, NOMS PROVIDER Referring Unava ilable CARTAGENA, ROSEMARY Attending Unavailable CARTAGENA, ROSEMARY Referring Unavailable BRISTOL, SHANIQUE SHRADDHA TERESO Primary Care Unav ailable CARTAGENA, ROSEMARY Attending Unavailable CARTAGENA, ROSEMARY Referring Unavailable BRISTOL, SHANIQUE SHRADDHA TERESO Primary Care Unav ailable CARTAGENA, ROSEMARY Attending Unavailable BRISTOL, SHANIQUE SHRADDHA TERESO Primary Care Unav ailable CARTAGENA, ROSEMARY Attending Unavailable BRISTOL, SHANIQUE SHRADDHA TERESO Primary Care Unav ailable CARTAGENA, ROSEMARY Attending Unavailable CARTAGENA, ROSEMARY Referring Unavailable BRISTOL, SHANIQUE SHRADDHA TERESO Primary Care Unav ailable Unavailable Unavailable Unavailable Allergies Allergy Classification Reported Allergen(s) Allergy Type Date of Onset Reaction(s) Facility canagliflozin (2 sources) canagliflozin Drug Allergy 04-01-20 23 Unknown Reaction [facility] exenatide (2 sources) exenatide Drug Allergy 04-01-20 23 Unknown Reaction [facility] fexofenadine (2 sources) fexofenadine Drug Allergy 04-01-20 23 [facility] liraglutide (2 sources) liraglutide Drug Allergy 04-01-20 23 Unknown Reaction [facility] NSAIDs (2 sources) Ibuprofen Drug Allergy 04-01-20 23 Unknown Reaction [facility] Opioid Agonists (6 sources) Codeine Drug Allergy 08-28-20 21 Hallucinating, Sweat [facility] rOPINIRole (2 sources) rOPINIRole Drug Allergy 04-01-20 23 Unknown Reaction [facility] SITagliptin (2 sources) SITagliptin Drug Allergy 04-01-20 23 Unknown Reaction [facility] (1 source) Acetaminophen / oxyCODONE Drug Allergy 07-27-20 16 Other (See Comments) [place] (20 sources) Codeine; Translations: [codeine] Drug Allergy 12-17-19 10 Other (See Comments), Unknown, Unknown (qualifier value) [place] (20 sources) exenatide; Translations: [exenatide] Drug Allergy 04-08-20 16 Unknown, Unknown (qualifier value) [place] (10 sources) fexofenadine; Translations: [fexofenadine] Drug Allergy 02-04-20 12 Itching, Unknown, Unknown (qualifier value) [place] (1 source) fexofenadine Drug Allergy 07-27-20 16 Itching [place] (19 sources) Ibuprofen Drug Allergy 04-04-20 18 Unknown Reaction, Unknown [place] (20 sources) liraglutide; Translations: [liraglutide] Drug Allergy 12-03-19 17 Unknown, Unknown (qualifier value) [place] (7 sources) Meperidine; Translations: [Demerol] Drug Allergy 02-04-20 12 Swelling, Bilateral upper limb edema [place] (10 sources) SITagliptin Drug Allergy 05-06-20 15 Unknown Reaction [place] (1 source) Other Propensity to adverse reactions 05-06-20 15 Itching [place] (11 sources) fexofenadine; Translations: [fexofenadine] Drug Allergy 08-28-20 21 [facility] (20 sources) Meperidine; Translations: [meperidine] Drug Allergy 08-28-20 21 Unknown [facility] (11 sources) Morphine; Translations: [morphine] Drug Allergy 08-28-20 21 Hallucinating [facility] (20 sources) canagliflozin; Translations: [CANAGLIFLOZIN] Drug Allergy 08-28-20 21 Unknown [facility] (20 sources) Codeine Drug Allergy Unknown [facility] [employer] Other (20 sources) fexofenadine; Translations: [Hermila] Drug Allergy 06-12-20 15 Unknown [facility] (15 sources) Ibuprofen Drug Allergy Unknown [facility] [employer] Other (20 sources) rOPINIRole Drug Allergy Unknown [facility] [employer] Other (20 sources) SITagliptin Drug Allergy Unknown [facility] [employer] Other (1 source) Codeine Drug Allergy 06-12-20 15 [facility] (2 sources) exenatide Drug Allergy [facility] (3 sources) liraglutide; Translations: [Victoza] Drug Allergy [facility] (1 source) SITagliptin Drug Allergy 08-24-20 15 [facility] (10 sources) rOPINIRole; Translations: [ropinirole] Drug Allergy 08-28-20 21 Unknown Reaction [facility] (5 sources) canagliflozin; Translations: [canagliflozin] Drug Allergy Unknown (qualifier value) [facility] (12 sources) Fish Oils; Translations: [FISH OIL] Drug Allergy 04-24-20 24 [facility] (17 sources) fexofenadine / Pseudoephedrine Drug Allergy 06-22-20 06 Hives [facility] (17 sources) Meperidine Drug Allergy 08-22-20 10 Swelling [facility] (7 sources) empagliflozin; Translations: [EMPAGLIFLOZIN] Drug Allergy 10-20-19 25 Other [facility] (1 source) canagliflozin Drug Allergy 04-03-20 24 [facility] (1 source) Codeine Drug Allergy 04-03-20 24 [facility] (1 source) exenatide Drug Allergy 04-03-20 24 [facility] (1 source) Ibuprofen Drug Allergy 04-03-20 [facility] (1 source) liraglutide Drug Allergy 04-03-20 [facility] (1 source) SITagliptin Drug Allergy 04-03-20 [facility] Rep[facility] (1 source) [place] Prefilled Pen; Translations: [Byetta Prefilled Pen] Propensity to adverse reactions (disorder) [facility] Repository Medications Current Medications Medication Drug Class(es) Dates Sig (Normalized) Sig (Original) acetaminophen 325 mg oral tablet (20 sources) Start: 10-21-2024 take 2 tablets by mouth every six hours for pain acetaminophen (Tylenol) 325 mg tablet Indications: Presence of Watchman left atrial appendage closure device Take 2 tablets (650 mg) by mouth every 6 hours if needed for moderate pain (4 - 6) or mild pain (1 - 3). 10/21/2024 Active Start: 10-20-2024 take 1 tablet by daly th every six hours as needed acetaminophen (Tylenol) tablet 650 mg Start: 09-11-2021 take 1 tablet by daly th twice daily as needed for pain Acetaminophen 500 mg Tablet Active 500 MG PO Twice daily as needed for Pain, Moderate 60 September 11, 2021 1:00am Start: 06-12-2019 [...] Capsule Discontinued 500 MG PO Twice daily as needed for Pain, Moderate March 07, 2019 12:00am September 11, 2021 [...] hrs for 10 day(s) Jul, Active amylase 91572 unt / lipase 67036 unt / protease 41504 unt delayed release oral capsule (20 sources) Start: 03-02-2023 take 3 capsules by mouth three times daily at mealtime pancrelipase, Duu-Xogp-Brpz, (Creon) 73340-68836 units capsule TAKE 3 CAPSULES BY MOUTH THREE TIMES A DAY, WITH MEALS 03/02/2023 Active Start: 03-19-2021 End: 09-19-2024 take 3 capsules by mouth three times daily at mealtime, then take 2 capsules by mouth twice daily Izhoxy-Xswuwptp-Skplajy (Creon) 3,000-9,500- 15,000 unit capsule,delayed release(DR/EC) Discontinued 0 PO As Directed April 03, 2024 11:34am September 19, 2024 4:08pm 3 capsules with meals three times a day, 2 capsules with snacks twice a day orally as directed; Start: 04-08-2016 take 3 capsules by m outh three times daily at mealtime, then take 2 capsules by mouth twice daily Creon 36,000-114,000- 180,000 unit capsule,delayed release(DR/EC) capsule Take 3 capsules by mouth 3 times daily (morning, midday, late afternoon). With meals, and 2 tablets twice daily with snacks 04/08/2016 Active amylases 13256 unt / endopeptidases 9500 unt / lipase [...] times a day. 180 tablet 3 09/01/2024 10/21/2024 Discontinued (Stop Taking at Discharge) Start: 12-09-2018 End: 01-30-2025 take 1 tablet by mouth in the morning apixaban (Eliquis) 5 MG tablet Take 5 mg by mouth in the morning and 5 mg in the evening. 12/06/2023 Active take 2 tablets by [facility] once daily Eliquis 5 MG as directed Orally 2 tablets once daily Active aspirin 81 mg delayed release oral tablet (20 sources) Platelet Aggregation Inhibitor, Nonsteroidal Anti-inflammatory Drug Start: 10-22-2024 End: 10-22-2025 take 1 tablet by mouth once daily aspirin 81 mg EC tablet Indications: Presence of Watchman left atrial appendage closure device Take 1 tablet (81 mg) by mouth once daily. 30 tablet 11 10/22/2024 10/22/2025 Active Start: 10-21-2024 take 81 mg by mouth once daily 81 mg, oral, Daily, First dose on Wed10/21/24 at 0900, Phase II/On Unit, Do not crush, chew, or split. Start: 10-20-2024 End: 10-20-2024 take 324 mg by mouth once 324 mg, oral, Once, On Wed at 1315, For 1 dose, Preprocedure Start: 03-07-2019 End: 03-19-2021 take 1 tablet by mouth once daily Aspirin 81 mg Tablet,Delayed Release (Dr/Ec) Discontinued 81 MG PO Daily 0 April 19, 2019 12:00am March 19, 2021 7:35am azelastine hydrochloride 0.137 mg/actuat metered dose nasal spray (17 sources) Histamine-1 Receptor Antagonist Start: 12-20-2023 azelastine (Astelin) 0.1 % nasal spray 12/20/2023 Active Biotin (1 source) take 84574 [IU] by mouth twice daily BIOTIN PO Take 10,000 Units by mouth 2 times daily 0 Active busPIRone hydrochloride 5 mg oral tablet (20 sources) Start: 10-20-2024 take 5 mg by mouth twice daily 5 mg, oral, 2 times daily, First dose on Wed10/20/24 at 2100 Calcium Carb-Cholecalciferol (CALCIUM CARBONATE-VITAMIN D3 PO) (17 sources) take 1 capsule by mouth in the morning Calcium Carb-Cholecalcif neela (CALCIUM CARBONATE-VITAMI N D3 PO) Take 1 capsule by mouth in the morning. Active calcium carbonate 1250 mg / cholecalciferol 200 unt oral tablet (20 sources) Vitamin D Start: 04-25-2024 take 1 tablet by mouth twice daily calcium (as carbonate)-vitam in D 500 mg-200 intl units oral tablet 1 tab(s), Oral, BID, Refill(s) 0 Start Date: 04/25/24 Status: Ordered Start: 09-14-2023 take 1 tablet by daly once daily Calcium Carb-Cholecalciferol (OYSCO 500 + [...] D3) 500 mg-5 mcg (200 unit) Tablet (11 sources) Start: 09-11-2021 take 2 tablets by mouth once daily Calcium Carbonate-Vitamin D3 (Oyster Shell Calcium-Vit D3) 500 mg-5 mcg (200 unit) Tablet Active 2 TAB PO Daily 60 September 11, 2021 12:00am Start: 09-11-2021 take 2 tablets by mo [facility] once daily Calcium Carbonate-Vitamin D3 (Oyster Shell Calcium-Vit D3) 500 mg-5 mcg (200 unit) Tablet Active 2 TAB PO Daily 60 September 11, 2021 1:00am CALCIUM CARBONATE-VITAMIN D3 ORAL (15 sources) take 1 capsule by mouth twice daily CALCIUM CARBONATE-VITAMIN D3 ORAL Take 1 capsule by mouth 2 times a day. Suspended take 1 capsule by mouth twice da loree CALCIUM CARBONATE-VITAMIN D3 ORAL Take 1 capsule [...] Date: 04/25/24 Status: Ordered Start: 01-25-2024 End: 02-07-2025 take 1 tablet by mouth in the morning, then take 1 tablet by mouth in the evening, then take 1 tablet by mouth at bedtime carbidopa-levodopa (Sinemet) 10-100 MG tablet Indications: Gait difficulty Take 1 tablet by mouth in the morning and 1 tablet in the evening and 1 tablet before bedtime. 8-9am, 11am-12pm, and 4pm. 270 tablet 1 11/09/2024 02/07/2025 Active Start: 09-02-2021 End: 09-11-2021 take 1 tablet by mouth twice daily 1 tablet, oral, 2 times daily, First dose on Wed10/20/24 at 2100 take 1 tablet by daly th three times daily carbidopa-levodopa (Sinemet) 10-100 mg tablet Take 1 tablet by mouth 3 times a day. Active Carbidopa-Levodo pa 10-100 MG 1/2 tablets Orally morning and night Active carboxymethylcellulose sodiu m 5 mg/ml ophthalmic solution (20 sources) Start: 09-14-2023 End: 10-20-2024 carboxymethylcellulose (Refr esh Plus) 0.5 % ophthalmic solution Administer 1 [...] 1 drop 3 times daily 0 Active Carboxymethylcellulose Sodium 0.5 % Drops (1 source) Start: 03-07-2019 take 1 drop(s) into the eye(s) once daily in the morning Carboxymethylcellulose Sodium 0.5 % Drops Active 2 DROPS OPHTHALMIC Every morning March 07, 2019 12:00am both eyes Cholecalciferol (20 sources) Vitamin D Start: 04-25-2024 cholecalciferol 25 mcg, Chewed, Daily, Refills(s) 0 Start Date: 04/25/24 Status: Ordered Start: 12-23-2023 cholecalcifero l (SM Vitamin D3) 25 MCG (1000 UT) tablet Take 3,000 Units by mouth in the evening. Take with meals 12/23/2023 Active Start: 09-11-2021 [facility] Cholecalciferol (Vitamin D3) 25 mcg (1,000 unit) Tablet Active 75 MCG PO Daily with supper September 11, 2021 1:00am Start: 03-07-2019 take 3000 [IU] by [facility] once daily Cholecalciferol (Vitamin D3) Active 3000 UNIT Oral Daily with supper March 07, 2019 6:55pm Start: 03-07-2019 End: 09-11-2021 take 3 tablets by mouth once daily Cholecalciferol (Vitamin D3) (Vitamin D3) 1,000 unit Tablet Discontinued 3000 UNIT PO Daily with supper March 07, 2019 12:00am September 11, 2021 10:18am take 3 tablets by [facility] once daily cholecalciferol (Vitamin D-3) 25 MCG (1000 UT) tablet Take 3 tablets (75 mcg) by mouth once daily. Active take 1 tablet by daly th once daily cholecalciferol (Vitamin D-3) 5,000 Units tablet Take 1 tablet (5,000 Units) by mouth once daily. Active take 3 tablets by mo ut every twenty-four hours Vitamin D3 25 [...] Weight Dosing Start Date: 05/01/24 Status: Ordered Creon 75728 UNIT (20 sources) Creon 26564 UNIT 3 WITH MEALS 2 WITH SNACK Orally three times daily for 90 day(s) Active Creon 63613 UNIT 2 WITH MEALS 1 WITH SNACK Orally three times daily for 30 days Active cyproheptadine hydrochloride 4 mg oral tablet (18 sources) Start: 06-12-2019 take 2 mg by mouth once daily 2 mg, Oral, NIGHTLY, First dose on Wed06/12/19 at 2100 Patient may take home supply. Start: 03-07-2019 take 1 mg by mouth o nce daily at bedtime Cyproheptadine Active MG Oral Daily at bedtime March 07, 2019 6:55pm Start: 03-07-2019 End: 08-28-2021 take 2 mg by mouth once daily at bedtime Cyproheptadine 2 mg/5 mL Syrup Discontinued 2 MG PO Daily at bedtime [...] 10/25/2023 Discontinued (Therapy completed) DAILY MULTI-VITAMIN ORAL (15 sources) take 1 capsule by mo uth once daily DAILY MULTI-VITAMIN ORAL Take 1 capsule by mouth once daily. Suspended take 1 capsule by mouth once cheng [...] tablet (20 sources) Benzodiazepine Start: 03-04-2023 End: 05-08-2025 take 1 tablet by mouth at bedtime diazePAM (Valium) 2 MG tablet Indications: Vertigo , Anxiety Take 1 tablet (2 mg) by mouth at bedtime Due 02/02/25 90 tablet 1 11/09/2024 05/08/2025 Active Start: 03-04-2023 take 1 mg by mouth e very six hours as needed diazePAM (Valium) 2 mg tablet Take 0.5 tablets (1 mg) by mouth every 6 hours if needed. 03/04/2023 Active Start: 09-11-2021 End: 09-11-2024 take 1 tablet by mouth once daily at bedtime Diazepam 2 mg Tablet Active 2 MG PO Daily at bedtime [...] directed Orally once daily at bedtime Active docusate sodium 100 mg oral capsule (2 sources) Start: 10-20-2024 take 100 mg by mouth twice daily for constipation 100 mg, oral, 2 times daily, First dose on Wed10/20/24 at 2100, Phase II/On Unit, Bowel Regimen - for prevention of constipation Hold for loose stools Start: 12-03-2017 End: 06-12-2019 take 1 capsule by mouth twice daily as needed for constipation docusate sodium (COLACE) 100 MG capsule Take 1 capsule by mouth 2 times daily as needed for Constipation 60 capsule 0 12/03/2017 06/12/2019 Discontinued (LIST CLEANUP) donepezil hydrochloride 5 mg oral tablet (20 sources) Start: 09-20-2023 donepezil (Aricept) 5 MG tablet 09/20/2023 Active EPINEPHrine 0.01 mg/ml / lidocaine hydrochloride 20 mg/ml injectable solution (1 source) Antiarrhythmic, alpha-Adrenergic Agonist, beta-Adrenergic Agonist, Catecholamine, Amide Local Anesthetic Start: 10-20-2024 5 mL, subcutaneous, Once as needed, to oozing access site, Starting on Wed10/20/24 at 1430, For 1 dose, Phase II/On Unit, Inject at site of bleed famotidine 20 mg oral tablet (20 sources) [...] Date: 04/25/24 Status: Ordered Start: 09-11-2021 take 1 tablet by daly th once daily Ferrous Sulfate 324 mg (65 mg iron) Tablet,Delayed Release (Dr/Ec) Active 324 MG PO Daily September 11, [...] by mouth 2 times daily 0 Active fexofenadine hydrochloride 180 mg oral tablet (4 sources) Histamine-1 Receptor Antagonist take 1 tablet by mouth once daily fexofenadine (Hermila) 180 mg tablet Take 1 tablet (180 mg) by mouth once daily. Active fluticasone propionate 0.05 mg/actuat metered dose nasal spray (20 sources) Corticosteroid Start: 09-05-20 End: 09-11-20 Fluticasone Propionate 50 mcg/actuation Tolley,Suspension Active 2 SPRAY INTRANASAL Every morning September 11, 2021 1:00am furosemide 20 mg oral tablet (20 sources) Loop Diuretic Start: 12-22-19 24 End: 10-27-19 26 furosemide (Lasix) 20 MG tablet 12/22/2023 Active Start: 09-11-2021 Furosemide 20 mg Tablet Active 20 MG PO Q48H September 11, 2021 [...] take 3 tablets by mouth once daily as needed Furosemide (Lasix) 20 mg Tablet Discontinued 20 MG PO Daily as needed for Weight Gain March 07, 2019 12:00am September 04, 2021 [...] the morning. Inject with meals. Active inject 15 [IU] by rothman bcutaneous injection once daily insulin glargine (Lantus) 100 unit/mL (3 mL) pen Inject 15 Units under the skin once daily. Active inject 14 [IU] by rothman bcutaneous [...] (with breakfast) 0 04/28/2017 Active NovoLOG Active Jqbihb-Qldahjnd-Vygogpa (Creon) 3,000-9,500- 15,000 unit capsule,delayed release(DR/EC) (3 sources) Start: 09-29-2024 take 2 capsules by mouth twice daily Vpkmpg-Xirzlaxs-Tlvyqul (Creon) 3,000-9,500- 15,000 unit capsule,delayed release(DR/EC) Active 0 PO As Directed 1169September 29, 2024 9:54am 13 caps per day = 3 capsules with meals three times a day, 2 capsules with snacks twice a day orally as directed; Start: 09-29-2024 End: 09-29-2024 take 2 capsules by mouth twice daily Eayuvn-Gtchchdz-Scrlyfu (Creon) 3,000-9,500- 15,000 unit capsule,delayed release(DR/EC) Discontinued 0 PO As Directed 1169September 29, 2024 9:53am September 29, 2024 9:54am 13 caps per day = 3 capsules with meals three times a day, 2 capsules with snacks twice a day orally as directed; Start: 09-19-2024 End: 09-29-2024 take 2 capsules by mouth twice daily Znafgr-Usqxyske-Vsbowag (Creon) 3,000-9,500- 15,000 unit capsule,delayed release(DR/EC) Discontinued 0 PO As Directed 1169September 19, 2024 4:07pm September 29, 2024 9:54am 13 caps per day = 3 capsules with meals three times a day, 2 capsules with snacks twice a day orally as directed; loperamide hydrochloride 2 mg oral capsule (20 sources) Opioid Agonist Start: 04-25-2024 take 2 mg by mouth once daily loperamide 2 mg, Oral, Daily, Refills(s) 0 Start Date: 04/25/24 Status: Ordered Start: 08-12-2023 End: 10-27-2024 take 1 capsule by mouth in the morning loperamide (Imodium) 2 MG capsule Take 2 mg by mouth in the morning. 08/12/2023 Active Start: 08-31-2022 take 1 capsule by [facility] every six hours Imodium A-D [...] 10 mg oral tablet (20 sources) Start: 03-07-2019 End: 12-22-2023 take 1 tablet by mouth once daily loratadine 10 mg Tab 10 mg = 1 tab(s), Oral, Daily, Refills(s) 0 Start Date: 04/25/24 Status: Ordered take 1 capsule by mouth once cheng ly Loratadine 10 MG CAPS Take 10 mg [...] Starting Wed06/12/19 at 1457, Recovery(Cath) magnesium oxide 400 mg oral tablet (20 sources) Start: 04-25-20 take 420 mg by mouth once daily magnesium oxide 420 mg, Oral, Daily, Refills(s) 0 Start Date: 04/25/24 Status: Ordered Start: 09-11-2021 400 mg (rounde d from 420 mg), oral, Daily, First dose on 10/21/24 at 0900 Start: 03-07-2019 End: 09-11-2021 take 1 tablet by mouth once daily at lunch Magnesium Oxide 420 mg Tablet Discontinued 420 MG PO Daily with lunch March 07, 2019 12:00am September 11, 2021 10:18am memantine hydrochloride 10 mg oral tablet (20 sources) B-czpsmc-G-aspartate Receptor Antagonist Start: 10-21-2024 Start: 12-28-2022 End: 10-11-2024 take 1 capsule by mouth once daily Memantine HCl ER 28 MG capsule sustained-release 24 hr Indications: Memory loss Take 28 mg by mouth Daily 90 capsule 1 07/13/2024 Active Start: 06-12-2019 take 28 mg by mouth once daily 28 mg, Oral, NIGHTLY, First dose on 06/12/19 at 2100 Patient may take home supply. Start: 03-07-2019 End: 04-18-2019 take 1 capsule by mouth once daily in the evening Memantine 28 mg cap,sprinkle,ER 24hr dose pack Discontinued 28 MG PO Every evening March [...] mirabegron 50 mg extended release oral tablet (7 sources) beta3-Adrenergic Agonist Start: 06-15-2024 take 1 tablet by mouth once daily Myrbetriq 50 mg oral tablet, extended release 50 mg = 1 tab(s), Oral, Daily, # 30 tab(s), Refills(s) 11, Pharmacy: [facility]/pharmacy #[id number], 167, cm, 06/15/24 10:14:00 EDT, Height/Length Dosing, [...] with minerals (Cerovite) 18-400 mg-mcg tablet tablet (17 sources) take 1 capsule by mouth in the morning multivitamin with minerals (Cerovite) 18-400 mg-mcg tablet tablet Take 1 capsule by mouth in the morning. 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 Place 1 tablet [...] injection (1 source) Serotonin-3 Receptor Antagonist Start: 06-12-20 19 4 mg, Intravenous, EVERY 6 HOURS PRN, Nausea, Vomiting, Starting Wed06/12/19 at 1457, Recovery(Cath) ondansetron ODT (Zofran-ODT) disintegrating tablet 4 mg (1 source) Start: 10-20-19 take 1 tablet by mouth every eight hours as needed ondansetron ODT (Zofran-ODT) disintegrating tablet 4 mg oxybutynin chloride 5 mg oral tablet (1 source) Cholinergic Muscarinic Antagonist Start: 10-21-19 Pancrelipase, Ebb-[id number]-Twfa, (CREON PO) (1 source) take 2 capsules by mouth three times daily at mealtime Pancrelipase, Qyh-Jibi-Syca, (CREON PO) Take 2 capsules by mouth 3 times daily (with meals) 0 Active pantoprazole (1 source) Proton Pump Inhibitor Start: 10-21-19 pantoprazole (ProtoNix) EC tablet 40 mg PARoxetine hydrochloride 20 mg oral tablet (20 sources) Serotonin Reuptake Inhibitor Start: 04-25-20 take 10 mg by mouth once daily paroxetine 20 mg Tab 10 mg = 0.5 tab(s), Oral, Daily, Refills(s) 0 Start Date: 04/25/24 Status: Ordered Start: 03-23-2023 take 1 tablet by daly th in the morning PARoxetine (Paxil) 20 MG [...] 20 mg by mouth daily 0 Active perflutren lipid microspheres (Definity) injection 0.5-10 mL of dilution (2 sources) Start: 10-20-2024 0.5-10 mL of dilution, intravenous, Once in imaging, Starting on Wed10/20/24 at 1935, For 1 dose, CV Medications, Contrast - for use by imaging provider only. Prior to administration, Definity product must be activated. First, bring vial to room temperature. Then, shake vial for 45 seconds. Do not use if the 45 second activation cycle has not been completed. Following activation, the product will appear as a milky white suspension and may be used immediately. If not used within 5 minutes of activation, re-suspend by inverting and shaking the vial for 10 seconds. Discard unused product. Administration: Dilute 1.3 mL of activated DEFINITY with 8.7 mL of normal saline in a 10 mL syringe. Inject 0.5 mL of diluted DEFINITY when notified the images/film are unclear to enhance view of Left Ventricular borders. Repeat 0.5 mL of DEFINITY until clear images are obtained, not to exceed 10 mLs. Once images are obtained or limit of medication is reached, flush line with 10 mL of Normal Saline. perphenazine 2 mg oral tablet (20 sources) Phenothiazine End: 10-20-2024 take 1 tablet by mouth in the morning, then take 1 tablet by mouth once daily at bedtime perphenazine 2 MG tablet Take 2 mg by mouth in the morning and 2 mg before bedtime. Patient is taking once a day at night. Active polyethylene glycol 3350 94133 mg powder for oral solution (20 sources) Osmotic Laxative Start: 09-11-2021 End: 04-03-2024 Polyethylene Glycol 3350 (Miralax) 17 gram powder in packet Active 17 GM PO Twice daily as needed April 03, 2024 11:23am take 17 g [...] to skin Transdermal Once a day Active rOPINIRole 0.25 mg oral tablet (5 sources) Nonergot Dopamine Agonist Start: 12-04-2024 End: 01-03-2025 take 1 tablet by mouth in the morning, then take 1 tablet by mouth in the evening, then take 1 tablet by mouth at bedtime rOPINIRole (Requip) 0.25 MG tablet Indications: Periodic limb movement disorder Take 1 tablet (0.25 mg) by mouth in the morning and 1 tablet (0.25 mg) in the evening and 1 tablet (0.25 mg) before bedtime. 90 tablet 2 12/04/2024 Active 3 ml sodium chloride 9 mg/ml [...] 06-12-2019 0.9 % sodium c hloride infusion therapeutic multivitamin-minerals (THERAGRAN-M) tablet (1 source) take 1 tablet by mouth once daily therapeutic multivitamin-minerals (THERAGRAN-M) tablet Take 1 tablet by mouth daily. 0 Active therapeutic multivitamin-minerals 1 tablet (1 source) Start: 2018 take 1 tablet by mouth once daily 1 tablet, Oral, DAILY, First dose on Wed06/12/19 at 1515 Patient may take home supply. traMADol hydrochloride 50 mg oral tablet (1 source) Opioid Agonist Start: 2024 take 1 tablet by mouth every six hours as needed 50 mg, oral, Every 6 hours PRN, pain moderate (4-6), first line, Starting on Wed10/20/24 at 1430, Phase II/On Unit, If ordered PRN for pain, nurse is permitted to administer this medication for higher pain scores based on patient preference? Yes traZODone hydrochloride 50 mg oral tablet (20 sources) Serotonin Reuptake Inhibitor Start: 2024 take 25 mg by mouth once daily 25 mg, oral, Nightly, First dose on Wed10/20/24 at 2100 Start: 04-03-2024 take 1 tablet by [facility] once daily Trazodone 50 mg tablet Active 50 MG PO Daily April 03, 2024 12:00am Vitamin D (2 sources) Start: 06-12-2019 take 3000 [IU] by [facility] once daily at dinner 3,000 Units, Oral, DAILY WITH DINNER, First dose on Wed06/12/19 at 1730 Patient may take home supply. take 3 tablets by [facility] once daily, then take 1 tablet by mouth vitamin D (CHOLECALCIFEROL) 1000 UNIT TA BS tablet Take 3,000 Units by mouth Daily with supper 0 Active Vitamin D3 [id number] UNIT/GM (6 sources) Vitamin D3 91256 0 UNIT/GM as directed Orally Once a day Active Vitamin D3 25 MCG (1000 UT) (8 sources) take 3 tablets by [facility] once daily Vitamin D3 25 MCG (1000 UT) 3 tablet Orally Once a day Active Completed/Discontinued Medications Medication Drug Class(es) Dates Sig (Normalized) Sig (Original) amphetamine aspartate 5 mg / amphetamine sulfate 5 mg / dextroamphetamine saccharate 5 mg / dextroamphetamine sulfate 5 mg oral tablet (20 sources) Central Nervous System Stimulant Start: 09-11-2021 End: 04-03-2024 take 1 tablet by mouth twice daily Dextroamphetamine- Amphetamine 20 mg Tablet Discontinued 20 MG PO Twice daily 0 [...] April 18, 2019 7:50pm Start: 04-01-2017 End: 12-30-2021 Dextroamphetamine-Amphetamin e (Adderall) 30 mg Tablet Discontinued 20 MG PO Twice daily April 18, 2019 12:00am September 11, 2021 10:18am Calcium Carbonate-Vitamin D3 (Calcium 500 + D) 500 mg(1,250mg) -200 unit Tablet (11 sources) Start: 03-07-2019 End: 09-11-2021 Calcium Carbonate-Vitamin D3 (Calcium 500 + D) 500 mg(1,250mg) -200 unit Tablet Discontinued 2 TAB PO Daily March 06, 2019 11:00pm September 11, 2021 9:18am Start: 03-07-2019 End: 09-11-2021 Calcium Carbonate-Vitamin D3 (Calcium 500 + D) 500 mg(1,250mg) -200 unit Tablet Discontinued 2 TAB PO Daily March 07, 2019 12:00am September 11, 2021 10:18am carvedilol 3.125 mg oral tablet (20 sources) alpha-Adrenergic [place], beta-Adrenergic [place] Start: 11-15-2023 End: 10-27-2025 take 1 tablet by mouth twice daily carvedilol (Coreg) 3.125 mg tablet Indications: Ischemic cardiomyopathy , 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 Take 1 tablet (3.125 mg) by mouth 2 times daily (morning and late afternoon). 180 tablet 3 09/01/2024 10/27/2024 Discontinued (Reorder) Start: 02-12-2023 take 1 tablet by daly th twice daily at mealtime carvedilol (Coreg) 3.125 mg tablet Take 1 tablet (3.125 mg) by mouth 2 times a day with meals. 0 02/12/2023 Active Start: 09-11-2021 take 1 tablet by daly th twice daily at mealtime Carvedilol 6.25 mg Tablet Active 6.25 MG PO Twice daily with meals 60 September 11, 2021 1:00am Start: 09-04-2021 End: 09-11-2021 take 1 tablet by mouth twice daily at mealtime Carvedilol 3.125 mg Tablet Discontinued 3.125 MG PO Twice daily with meals 0 September 04, 2021 1:00am September 11, 2021 10:18am clopidogrel 75 mg oral tablet (20 sources) [id number] Platelet Inhibitor Start: 05-07-2015 End: 10-27-2025 take 1 tablet by mouth once daily Clopidogrel (Plavix) 75 mg tablet Discontinued 75 MG PO Daily March 07, 2019 12:00am September 11, 2021 10:18am digoxin 0.125 mg oral tablet (20 sources) Cardiac Glycoside Start: 10-25-2023 End: 10-27-2025 take 1 tablet by mouth once daily digoxin (Lanoxin) 125 MCG tablet Indications: 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 Take 1 tablet (125 mcg) by mouth once daily. 90 tablet 3 09/01/2024 10/27/2024 Discontinued (Reorder) Start: 03-07-2019 End: 08-28-2021 take 1 tablet by mouth once daily at bedtime Digoxin 125 mcg Tablet Discontinued 125 MCG PO Daily at bedtime March 07, 2019 12:00am August 28, 2021 2:19pm End: 06-12-2019 take 1 tablet by mouth once daily digoxin (LANOXIN) 250 MCG tablet Indications: 1/2 tablet Take 250 mcg by mouth daily 0 06/12/2019 Discontinued (LIST CLEANUP) doxepin hydrochloride 25 mg oral capsule (20 sources) Tricyclic Antidepressant Start: 05-01-2017 End: 08-28-2021 take 1 capsule by mouth once daily at bedtime Doxepin 25 mg capsule Discontinued 25 MG PO Daily at bedtime [...] inject 1 mg by intramuscular injection once as needed Glucagon (Human Recombinant) (Glucagon Emergency Kit (Human)) 1 mg Recon Soln Discontinued 1 MG IM Once as needed for Hypoglycemia March 07, 2019 12:00am August 28, 2021 2:19pm Insulin Aspart U-100 (Novolog Flexpen U-100 Insulin) 100 unit/mL (3 mL) Insulin Pen (11 sources) Start: 03-07-2019 End: 08-28-2021 Insulin Aspart U-100 (Novolog Flexpen U-100 Insulin) 100 unit/mL (3 mL) Insulin Pen Discontinued 0 UNITS SUBCUT Before meals and at bedtime March 07, 2019 12:00am August 28, 2021 2:19pm Please contact the information source for Protocol details. Start: 03-07-2019 End: 08-28-2021 Insulin Aspart U-100 [...] 07, 2019 12:00am August 28, 2021 2:19pm iohexol (OMNIPaque) 350 mg iodine/mL solution 50 mL (1 source) Start: 10-20-2024 End: 10-20-2024 50 mL, intravenous, Once in imaging, Starting on Wed10/20/24 at 1230, For 1 dose lisinopril 5 mg oral tablet (20 sources) Angiotensin Converting Enzyme Inhibitor Start: 03-07-2019 End: 08-28-2021 take 2.5 mg by mouth once daily at bedtime Lisinopril 5 mg Tablet Discontinued 2.5 MG PO Daily at bedtime March 07, 2019 12:00am August 28, 2021 2:19pm Start: 03-07-2019 End: 08-28-2021 take 2.5 mg by mouth once daily at bedtime Lisinopril Discontinued 2.5 MG PO Daily at bedtime March 07, 2019 12:00am August 28, 2021 2:19pm take 1 tablet by daly th every twenty-four hours Lisinopril 5 MG 1 tablet Orally Once a day Active MiraLax 17 GM/SCOOP (1 source) take 17 g by mouth once daily MiraLax 17 GM/SCOOP as directed Orally Once a day Not-Taking omega 5-uxn-bol-fish oil (Fish OiL) 1,000 mg (120 mg-180 mg) capsule (1 source) End: 04-24-2024 take 2 capsules by mouth in the morning omega 1-vln-tkm-fish oil (Fish OiL) 1,000 mg (120 mg-180 mg) capsule Take 2 capsules (2,000 mg) by mouth early in the morning.. 04/24/2024 Discontinued (Side effects) potassium chloride 10 meq extended release oral tablet (20 sources) Start: 04-25-2024 take 1 tablet by mouth once daily Potassium Chloride (Bbs-Phcd-Ctq 10) 10 mEq oral tablet, extended release 10 mEq = 1 tab(s), Oral, Daily, Refills(s) 0 Start Date: 04/25/24 Status: Ordered Start: 12-22-2023 End: 10-27-2025 take 1 tablet by mouth once daily potassium chloride CR (Klor-Con) 10 mEq ER tablet Indications: Ischemic cardiomyopathy Take 1 tablet (10 mEq) by mouth once daily. Do not crush, chew, or split. 90 tablet 3 09/01/2024 10/27/2024 Discontinued (Reorder) Start: 06-12-2019 10 mEq, Oral, DAILY WITH LUNCH, First dose on Wed06/12/19 at 1515 Do not crush or break. Patient may take home supply. Start: 03-07-2019 End: 09-11-2021 take 1 capsule by mouth once daily at lunch Potassium Chloride 10 mEq Capsule, Extended Release Active 10 MEQ PO Daily with lunch [...] Therapy Not-Taking Refresh Dry Eye Therapy Active rosuvastatin calcium 5 mg oral tablet (11 sources) HMG-CoA Reductase Inhibitor Start: 04-24-2024 End: 10-27-2025 take 1 tablet by mouth once daily rosuvastatin (Crestor) 5 mg tablet Indications: 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 Take 1 tablet (5 mg) by mouth once daily. 90 tablet 3 09/01/2024 10/27/2024 Discontinued (Reorder) sacubitril 24 mg / valsartan 26 mg oral tablet (20 sources) Angiotensin 2 Receptor [place] Start: 04-24-2024 End: 10-27-2025 take [id number] mg by mouth in the evening sacubitriL-valsartan (Entresto) 24-26 mg tablet Indications: Congestive heart failure, NYHA class 3, chronic, systolic , Ischemic cardiomyopathy Take 1 tablet by mouth early in the morning.. Take the 49/51mg tablet in the evening 90 tablet 3 09/01/2024 10/27/2024 Discontinued (Reorder) Start: 04-24-2024 End: 09-01-2025 take 1 tablet by mouth once daily at bedtime sacubitriL-valsartan (Entresto) 49-51 mg tablet Indications: Congestive heart failure, NYHA class 3, chronic, systolic Take 1 tablet by mouth once daily at bedtime. 90 tablet 3 09/01/2024 10/20/2024 Discontinued (Duplicate order) Start: 10-25-2023 End: 12-05-2024 1 tablet, oral, 2 times mercedes y, First dose on 10/21/24 at 0900, Contraindicated in combination with NAHOMI inhibitors. Ensure a minimum of 36 hours between any NAHOMI inhibitor dose and sacubitril-valsartan. simethicone 80 mg chewable tablet (14 sources) Start: 03-07-2019 End: 09-11-2021 take 1 tablet by mouth after mealtime as needed Simethicone 80 mg Tablet,Chewable Discontinued 80 MG PO Before meals and at bedtime as needed for NEEDED March 07, 2019 12:00am September 11, 2021 10:18am 80 mg after meals and bedtime as needed. Simethicone-80 80 MG (9 sources) take 1 tablet by mouth four times daily at bedtime as needed Simethicone-80 80 MG 1 tablet after meals and at bedtime as needed Orally Four times a day Not-Taking tamsulosin hydrochloride 0.4 mg oral capsule (20 sources) alpha-Adrenerg ic [place] Start: 06-03-2018 End: 09-11-2021 take 1 capsule by mouth once daily Tamsulosin (Flomax) 0.4 mg Capsule Discontinued 0.4 MG PO Daily March 07, 2019 12:00am September 11, 2021 10:18am Start: 06-03-2018 take 0.4 mg by mouth twice daily at bedtime Tamsulosin Active 0.4 MG Oral Twice daily morning & bedtime March 07, 2019 6:55pm warfarin sodium 1 mg oral tablet (11 sources) Vitamin K Antagonist Start: 03-07-2019 End: 03-07-2019 Warfarin 1 mg Tablet Discontinued 0 .ROUTE .COMPLEX March 07, 2019 12:00am March 07, 2019 9:14pm As Instructed Start: 03-07-2019 End: 03-07-2019 Warfarin Discontinued 0 .ROU TE .COMPLEX March 07, 2019 12:00am March 07, 2019 9:14pm As Instructed Problems Active Problems Problem Classification Problem Date Documented Da te Episodic/Chronic Abdominal pain (20 sources) Abdominal pain; Translations: [Flank pain] 04-24-2020 Episodic Acute and unspecified renal failure (1 source) Acute injury of kidney; Translations: [MIGUEL ANGEL (acute kidney injury)] Onset: 4 Acute cerebrovascular disease (20 sources) Cerebrovascular accident; Translations: [Cerebral infarction, unspecified] Onset: 4 09-02-2021 Chronic Administrative/social admission (11 sources) Other reduced mobility; Translations: [Impaired mobility and activities of daily living] 09-04-2021 Episodic Anxiety disorders (20 sources) Posttraumatic stress disorder; Translations: [Anxiety] Onset: 4 10-04-2013 Chronic Calculus of urinary tract (8 sources) Kidney stone; Translations: [History of calculus of kidney] Onset: 5 04-02-2015 Episodic Cancer of prostate (17 sources) Malignant tumor of prostate; Translations: [Malignant neoplasm of prostate] Onset: 9 10-25-2023 Chronic Cancer of prostate (19 sources) History of malignant neoplasm of prostate; Translations: [Personal history of malignant neoplasm of prostate] Onset: 5 04-02-2015 Episodic Cardiac dysrhythmias (20 sources) Paroxysmal atrial fibrillation; Translations: [Atrial fibrillation] Onset: 8 12-03-2017 Chronic Chronic kidney disease (20 sources) Chronic kidney disease; Translations: [Chronic kidney disease, unspecified] Onset: 4 09-04-2021 Chronic Chronic kidney disease (2 sources) Chronic kidney disease; Translations: [Chronic kidney disease, stage 3b (Multi)] Onset: 4 Chronic obstructive pulmonary disease and bronchiectasis (5 sources) Chronic obstructive lung disease; Translations: [COPD (chronic obstructive pulmonary disease)] 12-03-2017 Chronic Conduction disorders (20 sources) H/O: cardiac pacemaker in situ; Translations: [Cardiac defibrillator in situ] Onset: 9 06-12-2019 Chronic Congestive heart failure; nonhypertensive (20 sources) Congestive heart failure; Translations: [Heart failure, unspecified] Onset: 4 09-02-2021 Chronic Coronary atherosclerosis and other heart disease (20 sources) Coronary arteriosclerosis; Translations: [Generalized ischemic myocardial dysfunction] Onset: 3 12-03-2017 Chronic Deficiency and other anemia (4 sources) Anemia 04-19-2024 Episodic Delirium, dementia, and amnestic and other cognitive disorders (20 sources) Dementia associated with another disease; Translations: [Dementia in other diseases classified elsewhere without behavioral disturbance] Onset: 4 10-25-2023 Chronic Diabetes mellitus with complications (8 sources) Diabetes mellitus; Translations: [Other specified diabetes mellitus with other specified complication] Onset: 3 08-30-2023 Chronic Diabetes mellitus without complication (20 sources) Type 2 diabetes mellitus; Translations: [Diabetes mellitus without complication] Onset: 8 12-03-2017 Chronic Disorders of lipid metabolism (8 sources) Hypercholesterolemia; Translations: [Mixed hyperlipidemia] 04-19-2024 Chronic 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 (20 sources) Hypertensive disorder; Translations: [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] Onset: 4 10-25-2023 Chronic Fluid and electrolyte disorders (11 sources) Hypokalemia; Translations: [Hypokalemia] 09-04-2021 Episodic Genitourinary symptoms and ill-defined conditions (7 sources) Urge incontinence of urine; Translations: [Unspecified urinary incontinence] Onset: 5 04-02-2015 Chronic Headache; including migraine (4 sources) Chronic post-traumatic headache; Translations: [Chronic post-traumatic headache, not intractable] 06-13-2024 Chronic Heart valve disorders (20 sources) Non-rheumatic mitral regurgitation ; Translations: [Nonrheumatic mitral (valve) insufficiency] Onset: 4 04-24-2024 Chronic Hyperplasia of prostate (20 sources) Benign prostatic hypertrophy with outflow obstruction; Translations: [Benign prostatic hyperplasia] Onset: 5 06-26-2017 Chronic Malaise and fatigue (16 sources) Weakness; Translations: [Asthenia] Onset: 2 Episodic Miscellaneous mental health disorders (17 sources) Chronic insomnia; Translations: [Psychophysiologic insomnia] Onset: 4 01-24-2024 Chronic Mood disorders (20 sources) Bipolar affective disorder, currently manic, severe, with psychosis; Translations: [Bipolar disorder, current episode manic severe with psychotic features] Onset: 4 10-25-2023 Chronic Nutritional deficiencies (20 sources) Vitamin D deficiency; Translations: [Vitamin D deficiency, unspecified] Onset: 4 04-19-2024 Chronic Osteoarthritis (5 sources) Osteoarthritis; Translations: [Arthritis] Onset: 4 04-19-2024 Chronic Osteoporosis (13 sources) Senile osteoporosis; Translations: [Age-related osteoporosis without current pathological fracture] Onset: 1 Resolved: 1 Chronic Other acquired deformities (12 sources) Lumbar spondylolisthesis; Translations: [Spondylolisthesis, lumbar region] Episodic Other aftercare (20 sources) Long-term current use of anticoagulant; Translations: [[facility] (current) use of anticoagulants] Onset: 3 09-04-2021 Episodic Other aftercare (1 source) Treatment changed; Translations: [Other [facility] (current) drug therapy] 10-25-2023 Episodic Other aftercare (1 source) Long-term current use of drug therapy; Translations: [[facility] (current) use of antithrombotics/antipl atelets] Onset: 4 Episodic Other aftercare (1 source) Surgical follow-up; Translations: [Encounter for follow-up examination after completed treatment for conditions other than malignant neoplasm] 10-20-2024 Episodic Other aftercare (2 sources) Encounter for follow-up examination after completed treatment for conditions other than malignant neoplasm; Translations: [Encounter for follow-up examination after completed treatment for conditions other than malignant neoplasm] Onset: 5 Episodic Other aftercare (2 sources) 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; Translations: [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] Onset: 5 Episodic Other and ill-defined heart disease (4 sources) Heart disease 04-19-2024 Chronic Other bone disease and musculoskeletal deformities (12 sources) Disorder of bone; Translations: [Other specified disorders of bone density and structure, other site] Episodic Other circulatory disease (12 sources) Presence of other cardiac implants and grafts; Translations: [Other specified cardiac device in situ] Onset: 5 10-19-2024 Chronic Other connective tissue disease (1 source) Presence of right artificial knee joint; Translations: [Presence of right artificial knee joint] Onset: 8 Chronic Other connective tissue disease (1 source) History of total knee arthroplasty; Translations: [S/P total knee arthroplasty] Onset: 4 12-03-2017 Chronic Other connective tissue disease (13 sources) Recurrent falls ; Translations: [Repeated falls] Onset: 4 07-28-2024 Episodic Other diseases of kidney and ureters (1 source) Urinary tract obstruction; Translations: [Other obstructive and reflux uropathy] Onset: 4 Episodic Other ear and sense organ disorders (20 sources) Hearing loss; Translations: [Unspecified hearing loss, unspecified ear] Onset: 4 04-25-2024 Chronic Other ear and sense organ disorders (4 sources) Sensorineural hearing loss, bilateral 04-19-2024 Chronic Other gastrointestinal disorders (20 sources) Constipation alternates with diarrhea; Translations: [Other specified symptoms and signs involving the digestive system and abdomen] Episodic Other gastrointestinal disorders (9 sources) Incontinence of feces; Translations: [Full incontinence of feces] Episodic Other gastrointestinal disorders (11 sources) Diarrhea, unspecified; Translations: [DIARRHEA UNSPECIFIED] Onset: 2 Resolved: 2 Episodic Other gastrointestinal disorders (11 sources) Chronic constipation; Translations: [Other constipation] 09-04-2021 Episodic Other gastrointestinal disorders (2 sources) Dysphagia; Translations: [Dysphagia, unspecified] 02-05-2025 Episodic Other male genital disorders (1 source) Impotence of organic origin; Translations: [Impotence of organic origin] Onset: 5 04-02-2015 Chronic Other male genital disorders (4 sources) Secondary erectile dysfunction Onset: 5 04-19-2024 Chronic Other male genital disorders (1 source) Phimosis; Translations: [Phimosis] Onset: 4 Episodic Other nervous system disorders (20 sources) Chronic pain; Translations: [Other chronic pain] Chronic Other nervous system disorders (2 sources) Other chronic pain; Translations: [Other chronic pain G89.29] Onset: 1 Resolved: 1 Chronic Other nervous system disorders (1 source) Narcolepsy with cataplexy; Translations: [NARCOLEPSY WITH CATAPLEXY] Onset: 2 Chronic Other nervous system disorders (17 sources) 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; Translations: [Circadian rhythm sleep disorder, unspecified type] Onset: 4 01-24-2024 Chronic Other nervous system disorders (17 sources) Lesion of ulnar nerve; Translations: [Lesion of ulnar nerve, unspecified upper limb] Onset: 4 01-24-2024 Chronic Other nervous system disorders (2 sources) Hyperreflexia; Translations: [Abnormal reflex] 06-13-2024 Episodic Other nervous system disorders (4 sources) Impairment of balance; Translations: [Other abnormalities of gait and mobility] 06-13-2024 Episodic Other non-traumatic joint disorders (1 source) Arthritis of knee; Translations: [Arthritis of knee] Onset: 8 12-02-2017 Chronic Other nutritional; endocrine; and metabolic disorders (12 sources) Body mass index 30+ - obesity; Translations: [Body mass index (BMI) 31.0-31.9, adult] Onset: 4 Resolved: 4 12-22-2023 Chronic Other nutritional; endocrine; and metabolic disorders (2 sources) Body mass index (BMI) 30.0-30.9, adult; Translations: [Body mass index (BMI) 30.0-30.9, adult] Onset: 4 Chronic Other nutritional; endocrine; and metabolic disorders (2 sources) Body mass index (BMI) 29.0-29.9, adult; Translations: [Body mass index (BMI) 29.0-29.9, adult] Onset: 5 Episodic Other nutritional; endocrine; and metabolic disorders (1 source) Obese class I; Translations: [Obesity (BMI 30.0-34.9)] Onset: 4 Other screening for suspected conditions (not mental disorders or infectious disease) (20 sources) Electrocardiogram abnormal; Translations: [Abnormal electrocardiogram [ECG] [EKG]] Onset: 3 09-02-2021 Episodic Pancreatic disorders (not diabetes) (13 sources) Idiopathic chronic pancreatitis; Translations: [Other chronic pancreatitis] Onset: 4 10-25-2023 Chronic Pancreatic disorders (not diabetes) (20 sources) Acute pancreatitis; Translations: [Exocrine pancreatic insufficiency] Onset: 2 Resolved: 2 Episodic Parkinson`s disease (7 sources) Parkinson's disease; Translations: [Parkinson's disease] Onset: 2 09-02-2021 Chronic Parkinson`s disease (4 sources) Parkinson`s disease; Translations: [Parkinson's disease without dyskinesia, without mention of fluctuations (Multi)] Onset: 3 Merary-; endo-; and myocarditis; cardiomyopathy (except that caused by tuberculosis or sexually transmitted disease) (3 sources) Cardiomyopathy; Translations: [Dilated cardiomyopathy] Onset: 3 10-04-2013 Chronic Phlebitis; thrombophlebitis and thromboembolism (20 sources) Acute embolism and thrombosis of left axillary vein; Translations: [Acute embolism and thrombosis of left subclavian vein] Onset: 1 Resolved: 1 Episodic Residual codes; unclassified (6 sources) Obstructive sleep apnea (adult) (pediatric); Translations: [OBSTRUCTIVE SLEEP APNEA] Onset: 2 Chronic Residual codes; unclassified (1 source) Idiopathic hypersomnia with long sleep time; Translations: [IDIO HYPERSOMNIA W/LONG SLEEP TIME] Onset: 2 Chronic Residual codes; unclassified (6 sources) Sleep apnea; Translations: [Sleep apnea, unspecified] Onset: 3 08-30-2023 Chronic Residual codes; unclassified (20 sources) Obstructive sleep apnea syndrome; Translations: [Obstructive sleep apnea (adult) (pediatric)] Onset: 3 10-25-2023 Chronic Residual codes; unclassified (2 sources) Sleep apnea, unspecified; Translations: [Sleep apnea, unspecified] Onset: 3 Chronic Residual codes; unclassified (17 sources) Hypersomnia; Translations: [Hypersomnia, unspecified] Onset: 4 01-24-2024 Chronic Residual codes; unclassified (17 sources) Restlessness and agitation; Translations: [Restlessness and agitation] Onset: 4 01-24-2024 Chronic Residual codes; unclassified (4 sources) Periodic limb movement disorder; Translations: [Periodic limb movement disorder] 08-24-2024 Chronic Residual codes; unclassified (2 sources) Periodic leg movements of sleep ; Translations: [Periodic limb movement disorder] 02-05-2025 Chronic Residual codes; unclassified (20 sources) Amnesia; Translations: [Other amnesia] Onset: 4 06-07-2024 Episodic Spondylosis; intervertebral disc disorders; other back problems (20 sources) Inflammation of sacroiliac joint; Translations: [Sacroiliitis, not elsewhere classified] Onset: 1 Resolved: 1 Chronic Spondylosis; intervertebral disc disorders; other back problems (20 sources) Spinal stenosis, lumbar region with neurogenic claudication; Translations: [Spinal stenosis of lumbar region] Onset: 1 Resolved: 1 Episodic Unclassified (20 sources) Parkinson's disease; Translations: [Parkinson disease] Onset: 3 08-30-2023 Chronic Unclassified (4 sources) Permanent atrial fibrillation; Translations: [Permanent atrial fibrillation (Multi)] Onset: 3 Unclassified (2 sources) Long-term current use of drug therapy 07-25-2024 Unclassified (2 sources) Longstanding persistent atrial fibrillation; Translations: [Longstanding persistent atrial fibrillation (Multi)] Onset: 5 Past or Other Problems Problem Classification Problem Date Documented Da te Episodic/Chronic Acute and unspecified renal failure (4 sources) Acute renal failure syndrome Onset: 10-06-2013 04-19-2024 Episodic Acute posthemorrhagic anemia (2 sources) Acute posthemorrhagic anemia; Translations: [Anemia associated with acute blood loss] Onset: 10-04-2013 Episodic Anxiety disorders (17 sources) Feeling irritable; Translations: [Irritability and anger] Onset: 01-24-2024 01-24-2024 Episodic Conditions associated with dizziness or vertigo (20 sources) Vertigo; Translations: [Dizziness and giddiness] Onset: 01-24-2024 01-24-2024 Episodic Coronary atherosclerosis and other heart disease (2 sources) Presence of aortocoronary bypass graft; Translations: [Presence of aortocoronary bypass graft] Onset: 08-30-2023 Episodic Genitourinary symptoms and ill-defined conditions (2 sources) Increased frequency of urination; Translations: [Olegario hematuria] Onset: 10-06-2013 04-02-2015 Episodic Headache; including migraine (20 sources) Headache; Translations: [Headache] Onset: 01-24-2024 04-25-2024 Episodic Joint disorders and dislocations; trauma-related (17 sources) Tear of medial meniscus of knee; Translations: [Other tear of medial meniscus, current injury, unspecified knee, initial encounter] Onset: 01-24-2024 01-24-2024 Episodic Other acquired deformities (2 sources) Spondylolisthesis, lumbar region Onset: 07-24-2021 Resolved: 09-02-2021 Episodic Other aftercare (4 sources) 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; Translations: [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] Onset: 08-30-2023 Episodic Other bone disease and musculoskeletal deformities (1 source) Other specified disorders of bone density and structure, other site Onset: 07-24-2021 Resolved: 07-24-2021 Episodic Other bone disease and musculoskeletal deformities (20 sources) Osteopenia; Translations: [Other specified disorders of bone density and structure, unspecified site] Onset: 01-24-2024 04-19-2024 Episodic Other circulatory disease (18 sources) History of cerebrovascular accident; Translations: [Personal history of transient ischemic attack (TIA), and cerebral infarction without residual deficits] Onset: 08-30-2023 08-30-2023 Episodic Other circulatory disease (2 sources) Personal history of transient ischemic attack (TIA), and cerebral infarction without residual deficits; Translations: [Personal history of transient ischemic attack (TIA), and cerebral infarction without residual deficits] Onset: 08-30-2023 Episodic Other connective tissue disease (1 source) Pain in leg, unspecified; Translations: [Lower extremity pain M79.606] Onset: 06-16-2021 Resolved: 06-16-2021 Episodic Other connective tissue disease (4 sources) Repeated falls; Translations: [Repeated falls] Onset: 07-27-2024 Episodic Other diseases of kidney and ureters (1 source) Disorder of kidney and/or ureter; Translations: [Disorder of kidney and ureter] Onset: 04-02-2015 06-13-2015 Episodic Other gastrointestinal disorders (2 sources) Full incontinence of feces; Translations: [FULL INCONTINENCE OF FECES] Onset: 12-15-2021 Resolved: 12-15-2021 Episodic Other lower respiratory disease (19 sources) Dyspnea; Translations: [Shortness of breath] Onset: 08-30-2023 08-30-2023 Episodic Other lower respiratory disease (1 source) Shortness of breath; Translations: [Shortness of breath] Onset: 08-30-2023 Episodic Other nervous system disorders (20 sources) Abnormal gait; Translations: [Unspecified abnormalities of gait and mobility] Onset: 01-24-2024 06-07-2024 Episodic Other nervous system disorders (17 sources) Skin sensation disturbance; Translations: [Unspecified disturbances of skin sensation] Onset: 01-24-2024 01-24-2024 Episodic Other nervous system disorders (1 source) Other abnormalities of gait and mobility; Translations: [Other abnormalities of gait and mobility] Onset: 06-29-2024 Episodic Other non-traumatic joint disorders (17 sources) Pain in lower limb; Translations: [Pain in unspecified knee] Onset: 01-24-2024 01-24-2024 Episodic Other nutritional; endocrine; and metabolic disorders (14 sources) Overweight in adulthood with body mass index of 25 or more but less than 30; Translations: [Body mass index (BMI) 29.0-29.9, adult] Onset: 12-06-2023 12-06-2023 Episodic Other nutritional; endocrine; and metabolic disorders (8 sources) Weight loss; Translations: [Abnormal weight loss] Onset: 07-27-2024 07-27-2024 Episodic Other nutritional; endocrine; and metabolic disorders (2 sources) Body mass index (BMI) 28.0-28.9, adult; Translations: [Body mass index (BMI) 28.0-28.9, adult] Onset: 07-27-2024 Episodic Screening and history of mental health and substance abuse codes (14 sources) Ex-smoker; Translations: [Personal history of nicotine dependence] Onset: 04-24-2024 07-27-2024 Episodic Unclassified (15 sources) Onset: 08-30-2023 Resolved: 10-27-2024 08-30-2023 Results Test Name Value Interpretation Reference Range Facility Ambulatory Visit Summaryon 0 11-28-2024 Ambulatory Visit Summary Ambulatory Visit Summary YOANA IBRAHIM Octavia :1940 Visit Date:11/28/2024 Ambulatory Visit Instructions Your Diagnosis Phimosis Urinary incontinence Benign prostatic hyperplasia with outflow obstruction History of prostate cancer Antiplatelet or antithrombotic long-term use Anticoagulated Your Care Team Attending Physician - Petr PAINTING MD Primary Care Physician - SHANIQUE ANDERSON DO This Is Your Medications List mirabegron (Myrbetriq 50 mg oral tablet, extended release) Contact prescribing physician if questions or concerns alpha-lipoic acid (Alpha Lipoic Acid) aspirin (aspirin 81 mg Oral EC Tab) calcium-vitamin D (calcium (as carbonate)-vitamin D 500 mg-200 intl units oral tablet) carbidopa-levodopa (carbidopa-levodopa 10 mg-100 mg oral tablet, disintegrating) carvedilol (carvedilol 3.125 mg Tab) cholecalciferol clopidogrel (clopidogrel 75 mg Tab) diazepam (diazepam 2 mg Tab) famotidine (famotidine 20 mg Tab) ferrous sulfate (ferrous sulfate 325 mg oral enteric coated tablet) furosemide (furosemide 20 mg Tab) icosapent (Icosapent Ethyl 1 g oral capsule) insulin glargine loperamide loratadine (loratadine 10 mg Tab) magnesium oxide memantine (memantine 28 mg oral capsule, extended release) mometasone multivitamin with minerals (Multivitamins and Minerals) pancrelipase (Creon 12,000 units oral delayed release capsule) paroxetine (paroxetine 20 mg Tab) potassium chloride (Potassium Chloride (Ski-Nvir-Njt 10) 10 mEq oral tablet, extended release) psyllium (psyllium oral powder) rivastigmine (rivastigmine 13.3 mg/24 hr transdermal film, extended release) tamsulosin (tamsulosin 0.4 mg Cap) Procedures Performed 3D-EBRT - three dimensional external beam radiation therapy, Appendectomy, Cardiac pacemaker, CE - Cataract extraction, Cholecystectomy, Colonoscopy, History of coronary artery bypass grafting.., Implantation of electronic stimulator into bladder, Total knee replacement, Transrectal needle biopsy of prostate, Watchman. Discharge Vitals Temperature (Temporal Artery) 37 ???C Heart Rate (Peripheral) 58 Respiratory Rate 16 Blood Pressure 106/68 Height 167 cm Height 66 in Weight 72 kg Weight 158.733 lb BMI 25.82 What to do next You Need to Schedule the Following Appointments Follow Up with CINTHYA SANCHEZ, MARY Leung When: Where: [address] [facility] [employer] [address] [place] [phone]- Medications What How Much When Instructions Unchanged mirabegron (Myrbetriq 50 mg oral tablet, extended release) 1 Tablets By Mouth Every day Unchanged alpha-lipoic acid (Alpha Lipoic Acid) 2 Tablets By Mouth Every day Contact prescribing physician if questions or concerns Unchanged aspirin (aspirin 81 mg Oral EC Tab) 1 Tablets By Mouth Every day Contact prescribing physician if questions or concerns Unchanged calcium-vitamin D (calcium (as carbonate)-vitamin D 500 mg-200 intl units oral tablet) 1 Tablets By Mouth 2 times a day Contact prescribing physician if questions or concerns Unchanged carbidopa-levodopa (carbidopa-levodopa 10 mg-100 mg oral tablet, disintegrating) 1 Tablets By Mouth Contact prescribing physician if questions or concerns Unchanged carvedilol (carvedilol 3.125 mg Tab) 1 Tablets By Mouth 2 times a day Contact prescribing physician if questions or concerns Unchanged cholecalciferol 25 Microgram Chewed Every day Contact prescribing physician if questions or concerns Unchanged clopidogrel (clopidogrel 75 mg Tab) 1 Tablets By Mouth Every day Contact prescribing physician if questions or concerns Unchanged diazepam (diazepam 2 mg Tab) 0.5 Tablets By Mouth At bedtime Contact prescribing physician if questions or concerns Unchanged famotidine (famotidine 20 mg Tab) 1 Tablets By Mouth 2 times a day Contact prescribing physician if questions or concerns Unchanged ferrous sulfate (ferrous sulfate 325 mg oral enteric coated tablet) 1 Tablets By Mouth Every day Contact prescribing physician if questions or concerns Unchanged furosemide (furosemide 20 mg Tab) 1 Tablets By Mouth Every day Contact prescribing physician if questions or concerns Unchanged icosapent (Icosapent Ethyl 1 g oral capsule) 4 Capsules By Mouth 2 times a day Contact prescribing physician if questions or concerns Unchanged insulin glargine 100 Units Contact prescribing physician if questions or concerns Unchanged loperamide 2 Milligram By Mouth Every day Contact prescribing physician if questions or concerns Unchanged loratadine (loratadine 10 mg Tab) 1 Tablets By Mouth Every day Contact prescribing physician if questions or concerns Unchanged magnesium oxide 420 Milligram By Mouth Every day Contact prescribing physician if questions or concerns Unchanged memantine (memantine 28 mg oral capsule, extended release) 1 Capsules By Mouth Every day Contact prescribing physician if questions or concerns Unchanged mometasone (more content not included)... Normal [facility] Urology Office/Clinic Noteon 11-28-2024 Urology Office/Clinic Note Urology Office/Clinic Note Chief Complaint phimosis HPI Staff Discuss circumcision versus dorsal slit. Pt has complaints of leakage and urge incontinence. Uses a pad inside of a brief and changes the pad multiple times throughout the day and states that he soaks the brief overnight. Denies blood or pain of any kind. IPSS score of 26 today. History of Present Illness Tests reviewed: UA I have reviewed the previous health record information and history for this patient from Dr. Painting. I have reviewed and verified the staff HPI to be accurate for this encounter. Review of Systems PHQ Score Initial Depression Screen Score: 0 SCORE ROS - Provider Constitutional: denies weight loss, denies hot flashes. Eyes: denies eye problems. Gastrointestinal: denies nausea, denies vomiting. Cardiovascular: denies chest pain or angina. Integumentary: no dryness Musculoskeletal: denies musculoskeletal symptoms. ENMT: denies otolaryngeal symptoms. Respiratory: no shortness of breath. Heme/Lymph: denies easy bleeding tendency, denies easy bruising tendency. Psychiatric: no confusion, no anxiety. Genitourinary: See HPI. Physical Exam Vitals & Measurements T: 37 ???C(Temporal Artery) HR: 58(Peripheral) RR: 16 BP: 106/68 HT: 66 in HT: 167 cm WT: 72 kg WT: 158.733 lb BMI: 25.82 General Appearance: alert, no distress, well nourished, well developed male. : not buried. able to see the head of the penis. do not attempt to retract, may not be able to get the foreskin over the head of the penis. Assessment/Plan Last seen by AO. Pt accompanied by an elderly female today. Hx of Parkinson's. 1. Phimosis (N47.1: Phimosis) Is circumcised. Counseled on situations that would require surgery including recurrent/chronic infections, pain, inability to void. Can d/c ointment since not having infections. Was not having infections prior to starting the cream either. Pt agreeable to f/u prn. PE: not buried. able to see the head of the penis. do not attempt to retract, may not be able to get the foreskin over the head of the penis. Follow up PRN. Pt understands and agrees with plan. -Cont sx monitoring, notify office if difficulty voiding or developing infections 2. Urinary incontinence (R32: Unspecified urinary incontinence) Since radiation for prostate cancer [1]. Had InterStim placed 2012, slightly improved his urinary symptoms. Battery now and patient does not wish to pursue it any further due to how tedious it was for minimal improvement. [2] Started Gemtesa 75 mg qd at prior OV. 3. Benign prostatic hyperplasia with outflow obstruction (N40.1: Benign prostatic hyperplasia with lower urinary tract symptoms) Cysto 06/15/23 - obstructed prostatic urethra, moderate hypertrophy. Trabeculated bladder, moderate radiation cystitis changes. It was discussed w/ pt/ at that time that bladder outlet procedure could be considered, although not recommended d/t previous radiation to prostate tissue may cause issues w/ healing. UA shows small leuks. Asx. IPSS 25.5. Taking Tamsulosin 0.4 mg qd. 4. History of prostate cancer (Z85.46: Personal history of malignant neoplasm of prostate) PSA: 08/2023 - 1.03 04/25/24 - 1.49 s/p radiation by Dr Galvez in [place]. Unsure of year of treatment or initial sx. 5. 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 6. Anticoagulated (Z79.01: [facility] (current) use of anticoagulants) Dengis. The patient is here with his today. They are here in follow-up to the phimosis and whether or not he needs surgical intervention. Physical examination is consistent with a phimosis but he does have about a 1 cm opening in the foreskin and I can appreciate the head of the penis. This does not appear inflamed or infected. Discussed that the reason to perform a circumcision or a dorsal slit procedure in this situation would be recurrent infections, pain, or a foreskin that is actually closing off preventing urinary flow. None of these things are occurring currently. They will monitor for those instances and let me know if they occur. At this point I feel we can see him on a as needed basis. They agree with the plan. Follow-up With When Contact Information CINTHYA SANCHEZ, Petr Richard, URL [address] [id number]- Additional Instructions: PRN Patient Education Phimosis, Pediatric I, Leia Arroyo, personally scribed for Dr. Painting on 11/28/2024 14:15:14. . Documentation recorded by the scribe, Leia Arroyo, accurately reflects the services(s) I performed and decisions made by me. Authenticated by Dr. Painting on 11/28/2024 14:17:19. Portions of this record may have been created with voice recognition artificial intelligence software, specifically Xsigo, SomethingIndie and or [employer]wick Warp. Substituti (more content not included)... Normal [facility] Comment on above: Result Comment: Elec tronically Signed By: Petr PAINTING MD\.br\Date and Time Signed: 11/28/24 14:18 EDT\.br\Electronically Co-Signed By: Leia Arroyo\.br\Date and Time Co-Signed: 11/28/24 14:16 EDT Basic metabolic 2000 panelon 10-21-2024 Anion gap [Moles/Vol] 13 mmol/L 10 - 2 0 mmol/L [facility] Calcium [Mass/Vol] 8.9 mg/dL 8.6 - 10. 6 mg/dL [facility] Chloride [Moles/Vol] 105 mmol/L 98 - 10 7 mmol/L [facility] CO2 [Moles/Vol] 29 mmol/L 21 - 32 mmol/L [facility] Creatinine [Mass/Vol] 1.35 mg/dL High 0.50 - 1.30 mg/dL [facility] GFR/1.73 sq M.predicted among non-blacks MDRD (S/P/Bld) [Vol rate/Area] 53 mL/min/{1.73_m2} Low - PINF [facility] Comment on above: Calculations of ginette mated GFR are performed using the 2020 CKD-EPI Study Refit equation without the race variable for the IDMS-Traceable creatinine methods. https://jasn.asnjournals.org/content/early//ASN.88717 55111 Glucose [Mass/Vol] 112 mg/dL High 74 - 99 mg/dL [facility] Interpretation and review of laboratory results Abnormal [facility] Potassium [Moles/Vol] 4.1 mmol/L 3.5 - 5.3 mmol/L [facility] Sodium [Moles/Vol] 143 mmol/L 136 - 145 mmol/L [facility] Urea nitrogen [Mass/Vol] 35 mg/dL High 6 - 23 mg/dL [facility] Anion gap [Moles/Vol] 13 mmol/L Normal 10-20 [facility] Comment on above: Performed By: #### 2 4321-2 ####GHISLAINE Baron ([id number])[facility] ([facility])[address] [place] [address] Calcium [Mass/Vol] 8.9 mg/dL Normal 8.6-10.6 [facility] Comment on above: Performed By: #### 2 4321-2 ####GHISLAINE Baron ([id number])[facility] ([facility])[address] [place] [address] Chloride [Moles/Vol] 105 mmol/L Normal 98-107 [facility] Comment on above: Performed By: #### 2 4321-2 ####GHISLAINE Baron ([id number])[facility] ([facility])[address] [place] [address] CO2 [Moles/Vol] 29 mmol/L Normal 21-32 [facility] Comment on above: Performed By: #### 2 4321-2 ####GHISLAINE Baron ([id number])[facility] ([facility])[address] [place] [address] Creatinine [Mass/Vol] 1.35 mg/dL High 0.50-1.30 [facility] Comment on above: Performed By: #### 2 4321-2 ####GHISLAINE Baron ([id number])[facility] ([facility])[address] [place] [address] Glomerular filtration rate/1.73 sq M.predicted 53 mL/min/1.73m*2 Low >60 [facility] Comment on above: Result Comment: Calc ulations of estimated GFR are performed using the 2020 CKD-EPI Study Refit equation without the race variable for the IDMS-Traceable creatinine methods. https://jasn.asnjournals.org/content//ASN.29191 66883 Performed By: #### 2 4321-2 ####GHISLAINE Baron ([id number])[facility] ([facility])[address] [place] [address] Glucose [Mass/Vol] 112 mg/dL High 74-99 [facility] Comment on above: Performed By: #### 2 4321-2 ####GHISLAINE Baron ([id number])[facility] ([facility])[address] [place] [address] Potassium [Moles/Vol] 4.1 mmol/L Normal 3.5-5.3 [facility] Comment on above: Performed By: #### 2 4321-2 ####GHISLAINE Baron ([id number])[facility] ([facility])[address] [place] [address] Sodium [Moles/Vol] 143 mmol/L Normal 136-145 [facility] Comment on above: Performed By: #### 2 4321-2 ####GHISLAINE Baron ([id number])[facility] ([facility])[address] [place] [address] Urea nitrogen [Mass/Vol] 35 mg/dL High 6-23 [facility] Comment on above: Performed By: #### 2 4321-2 ####GHISLAINE Baron ([id number])[facility] ([facility])[address] [place] [address] CBC W Auto Differential pane l (Bld)on 10-21-2024 Basophils (Bld) [#/Vol] 0.02 10*3/uL [facility] Basophils/100 WBC (Bld) 0.2 % 0.0 - 2.0 % [facility] Eosinophils (Bld) [#/Vol] 0.11 10*3/uL [facility] Eosinophils/100 WBC (Bld) 1.3 % 0.0 - 6.0 % [facility] Erythrocyte distribution width (RBC) [Ratio] 12.7 % 11.5 - 14.5 % [facility] Hematocrit (Bld) [Volume fraction] 30.8 % Low 41.0 - 52.0 % [facility] Hemoglobin (Bld) [Mass/Vol] 10.2 g/dL Low 13.5 - 17.5 g/dL [facility] Immature granulocytes (Bld) [#/Vol] 0.03 10*3/uL [facility] Immature granulocytes/100 WBC (Bld) 0.4 % 0.0 - 0.9 % [facility] Comment on above: Immature Granulocyte Count (IG) includes promyelocytes, myelocytes and metamyelocytes but does not include bands. Percent differential counts (%) should be interpreted in the context of the absolute cell counts (cells/UL). Interpretation and review of laboratory results Abnormal [facility] Lymphocytes (Bld) [#/Vol] 0.73 10*3/uL Low [facility] Lymphocytes/100 WBC (Bld) 8.9 % 13.0 - 44.0 % [facility] MCH (RBC) [Entitic mass] 33.4 pg 26.0 - 34.0 pg [facility] MCHC (RBC) [Mass/Vol] 33.1 g/dL 32.0 - 36.0 g/dL [facility] MCV (RBC) [Entitic vol] 101 fL High 80 - 100 fL [facility] Monocytes (Bld) [#/Vol] 1.07 10*3/uL High [facility] Monocytes/100 WBC (Bld) 13.1 % 2.0 - 10.0 % [facility] Neutrophils (Bld) [#/Vol] 6.21 10*3/uL High [facility] Comment on above: Percent differential counts (%) should be interpreted in the context of the absolute cell counts (cells/uL). Neutrophils/100 WBC (Bld) 76.1 % 40.0 - 80.0 % [facility] Nucleated RBC/100 WBC (Bld) [Ratio] 0 % [facility] Platelets (Bld) [#/Vol] 174 10*3/uL [facility] RBC (Bld) [#/Vol] 3.05 10*6/uL [facility] WBC (Bld) [#/Vol] 8.2 10*3/uL [facility] Basophils (Bld) [#/Vol] 0.02 x10*3/uL Normal 0.00-0.10 [facility] Comment on above: Performed By: #### 5 7021-8 #### GHISLAINE Baron ([id number]) [facility] ([facility]) [id number] [place] [address] 58143 Basophils/100 WBC (Bld) 0.2 % Normal 0.0-2.0 [facility] Comment on above: Performed By: #### 5 7021-8 #### GHISLAINE Baron ([id number]) [facility] ([facility]) [address] [place] [address] 32434 Eosinophils (Bld) [#/Vol] 0.11 x10*3/uL Normal 0.00-0.40 [facility] Comment on above: Performed By: #### 5 7021-8 #### GHISLAINE Baron ([id number]) [facility] ([facility]) [address] [place] [address] 02931 Eosinophils/100 WBC (Bld) 1.3 % Normal 0.0-6.0 [facility] Comment on above: Performed By: #### 5 7021-8 #### GHISLAINE Baron ([id number]) [facility] ([facility]) [address] [place] [address] 12169 Erythrocyte distribution width (RBC) [Ratio] 12.7 % Normal 11.5-14.5 [facility] Comment on above: Performed By: #### 5 7021-8 #### GHISLAINE Baron ([id number]) [facility] ([facility]) [address] [place] [address] 43057 Hematocrit (Bld) [Volume fraction] 30.8 % Low 41.0-52.0 [facility] Comment on above: Performed By: #### 5 7021-8 #### GHISLAINE Baron ([id number]) [facility] ([facility]) [address] [place] [address] 46360 Hemoglobin (Bld) [Mass/Vol] 10.2 g/dL Low 13.5-17.5 [facility] Comment on above: Performed By: #### 5 7021-8 #### GHISLAINE Baron ([id number]) [facility] ([facility]) [address] [place] [address] 56112 Immature granulocytes (Bld) [#/Vol] 0.03 x10*3/uL Normal 0.00-0.50 [facility] Comment on above: Performed By: #### 5 7021-8 #### GHISLAINE Baron ([id number]) [facility] ([facility]) [address] [place] [address] 88819 Immature granulocytes/100 WBC (Bld) 0.4 % Normal 0.0-0.9 [facility] Comment on above: Result Comment: Pepper ture Granulocyte Count (IG) includes promyelocytes, myelocytes and metamyelocytes but does not include bands. Percent differential counts (%) should be interpreted in the context of the absolute cell counts (cells/UL). Performed By: #### 5 7021-8 #### GHISLAINE Baron ([id number]) [facility] ([facility]) [address] [place] [address] 87800 Lymphocytes (Bld) [#/Vol] 0.73 x10*3/uL Low 0.80-3.00 [facility] Comment on above: Performed By: #### 5 7021-8 #### GHISLAINE Baron ([id number]) [facility] ([facility]) [address] [place] [address] 22974 Lymphocytes/100 WBC (Bld) 8.9 % Normal 13.0-44.0 [facility] Comment on above: Performed By: #### 5 7021-8 #### GHISLAINE Baron ([id number]) [facility] ([facility]) [address] [place] [address] 18411 MCH (RBC) [Entitic mass] 33.4 pg Normal 26.0-34.0 [facility] Comment on above: Performed By: #### 5 7021-8 #### GHISLAINE Baron ([id number]) [facility] ([facility]) [address] [place] [address] 15514 MCHC (RBC) [Mass/Vol] 33.1 g/dL Normal 32.0-36.0 [facility] Comment on above: Performed By: #### 5 7021-8 #### GHISLAINE Baron ([id number]) [facility] ([facility]) [address] [place] [address] 47588 MCV (RBC) [Entitic vol] 101 fL High 80-100 [facility] Comment on above: Performed By: #### 5 7021-8 #### GHISLAINE Baron ([id number]) [facility] ([facility]) [address] [place] [address] 51670 Monocytes (Bld) [#/Vol] 1.07 x10*3/uL High 0.05-0.80 [facility] Comment on above: Performed By: #### 5 7021-8 #### GHISLAINE Baron ([id number]) [facility] ([facility]) [address] [place] [address] 42361 Monocytes/100 WBC (Bld) 13.1 % Normal 2.0-10.0 [facility] Comment on above: Performed By: #### 5 7021-8 #### GHISLAINE Baron ([id number]) [facility] ([facility]) [address] [place] [address] 07624 Neutrophils (Bld) [#/Vol] 6.21 x10*3/uL High 1.60-5.50 [facility] Comment on above: Result Comment: Perc ent differential counts (%) should be interpreted in the context of the absolute cell counts (cells/uL). Performed By: #### 5 7021-8 #### GHISLAINE Baron ([id number]) [facility] ([facility]) [address] [place] [address] 28864 Neutrophils/100 WBC (Bld) 76.1 % Normal 40.0-80.0 [facility] Comment on above: Performed By: #### 5 7021-8 #### GHISLAINE Baron ([id number]) [facility] ([facility]) [address] [place] [address] 78084 Nucleated RBC/100 WBC (Bld) [Ratio] 0.0 /100 WBCs Normal 0.0-0.0 [facility] Comment on above: Performed By: #### 5 7021-8 #### GHISLAINE Baron ([id number]) [facility] ([facility]) [address] [place] [address] 55844 Platelets (Bld) [#/Vol] 174 x10*3/uL Normal 150-450 [facility] Comment on above: Performed By: #### 5 7021-8 #### GHISLAINE Baron ([id number]) [facility] ([facility]) [address] [place] [address] 39504 RBC (Bld) [#/Vol] 3.05 x10*6/uL Low 4.50-5.90 [facility] Comment on above: Performed By: #### 5 7021-8 #### GHISLAINE Baron ([id number]) [facility] ([facility]) [address] [place] [address] 68984 WBC (Bld) [#/Vol] 8.2 x10*3/uL Normal 4.4-11.3 [facility] Comment on above: Performed By: #### 5 7021-8 #### GHISLAINE Baron ([id number]) [facility] ([facility]) [address] [place] [address] 30289 Coagulation tissue factor in ducedon 10-21-2024 PT Coag (PPP) [Time] 13.7 s High 9.8-12.8 [facility] Comment on above: Performed By: #### 5 902-2 ####GHISLAINE Baron ([id number])[facility] ([facility])[address] [place], [place] [address] ECG 12-LEADon 10-21-2024 ECG 12-LEAD Ventricular Rate 60 Atrial Rate 258 QRS Duration 192 Q-T Interval 458 QTC Calculation(Bazett) 458 R Clinton -46 T Clinton 84 QRS Count 10 Q Onset 188 T Offset 417 QTC Fredericia 458 Diagnosis Electronic ventricular pacemaker When compared with ECG of 21-OCT-2024 09:45, Electronic ventricular pacemaker has replaced Atrial fibrillation Confirmed by Sloan Jaimes ([id number]) on 10/28/2024 11:25:05 AM Normal [facility] Magnesiumon 10-21-2024 Magnesium [Mass/Vol] 2.22 mg/dL 1.60 - 2.40 mg/dL [facility] Magnesium [Mass/Vol] 2.22 mg/dL Normal 1.60-2.40 [facility] Comment on above: Performed By: #### 1 9123-9 ####GHISLAINE Baron ([id number])[facility] ([facility])[address] [place] [address] 49818 Magnesium [Mass/Vol]on 10-21 Interpretation and review of laboratory results Normal [facility] No Panel Informationon 10-21 [facility] PT Coag (PPP) [Time]on 10-21 INR Coag (PPP) [Relative time] 1.2 {INR} High 0.9 - 1.1 [facility] Interpretation and review of laboratory results Abnormal [facility] INR Coag (PPP) [Relative time] 1.2 High 0.9-1.1 [facility] Comment on above: Performed By: #### 5 902-2 ####GHISLAINE Baron ([id number])[facility] ([facility])[address] [place] [address] Protime-INRon 10-21-2024 PT Coag (PPP) [Time] 13.7 s High [facility] TRANSTHORACIC ECHO (TTE) FELDER ITEDon 10-21-2024 TRANSTHORACIC ECHO (TTE) [facility], [address] [place], [place] [id number] and TRANSTHORACIC ECHOCARDIOGRAM REPORT Patient Name: YOANA IBRHAIM Reading Physician: [id number] Benja Adan MD Study Date: 10/21/2024 Ordering Provider: [id number] MONSE LANDERS MRN/PID: [id number] Fellow: Nurse: Date of /Age: 4 1940 / 83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 Margarine: Fletcher Navarro RDCS Gender assigned at M Additional Staff: : Height: 167.64 cm Admit Date: Weight: 83.46 kg Admission Status: Inpatient - Routine BSA / BMI: 1.93 m2 / 29.70 kg/m2 Blood Pressure: 117/37 mmHg Department Location: [place] [address] Study Type: TRANSTHORACIC ECHO (TTE) LIMITED Diagnosis/ICD: Encounter for follow up examination after completed treatment for conditions other than malignant neoplasm-Z09; Presence of other cardiac implants and grafts-Z95.818 Indication: s/p LAAO CPT Code: Echo Limited-30600 Patient History: Pertinent History: Chronic systolic left heart failure, HFrEF, secondary to ischemic cardiomyopathy, LVEF 30%, sick sinus syndrome dual-chamber pacemaker, hypertension, hyperlipidemia, Coronary artery bypass grafting with SAMUEL to LAD SVG to PDA, Obstructive sleep apnea, TIA December 2016, Left upper extremity DVT, s/p LAAO 10/20/24. Study Detail: The following Echo studies were performed: 2D. PHYSICIAN INTERPRETATION: Left Ventricle: The left ventricle was not well visualized. The left ventricular ejection fraction could not be measured. The left ventricular cavity size is moderately dilated. Abnormal (paradoxical) septal motion, consistent with RV pacemaker. Left ventricular diastolic filling was not assessed. LV function is reduced but cannot be assessed accurately. Left Atrium: The left atrial size is severely dilated. Right Ventricle: The right ventricle is normal in size. There is normal right ventricular global systolic function. A device is visualized in the right ventricle. Right Atrium: The right atrium is moderate to severely dilated. There is a device visualized in the right atrium. Aortic Valve: The aortic valve is structurally normal. There is mild aortic valve cusp calcification. Aortic valve regurgitation was not assessed. Mitral Valve: The mitral valve is normal in structure. Mitral valve regurgitation was not assessed. Tricuspid Valve: The tricuspid valve is structurally normal. Tricuspid regurgitation was not assessed. Pulmonic Valve: The pulmonic valve was not assessed. Pulmonic valve regurgitation was not assessed. Pericardium: Trivial pericardial effusion. Aorta: The aortic root is normal. In comparison to the previous echocardiogram(s): Compared with study dated 10/20/2024, no significant change. CONCLUSIONS: 1. The left ventricle was not well visualized. The left ventricular ejection fraction could not be measured. 2. Left ventricular cavity size is moderately dilated. 3. 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 4. LV function is reduced but cannot be assessed accurately. 5. There is normal right ventricular global systolic function. 6. The left atrial size is severely dilated. 7. The right atrium is moderate to severely dilated. 8. Compared with study dated 10/20/2024, no significant change. QUANTITATIVE DATA SUMMARY: [id number] Benja Adan MD Electronically signed on 10/21/2024 at 10:56:59 AM Final [facility] US Heart Transthoracicon [facility], [address] [place] [address] and TRANSTHORACIC ECHOCARDIOGRAM REPORT Patient Name: YOANA IBRAHIM Reading Physician: [id number] Benja Adan MD Study Date: 10/21/2024 Ordering Provider: [id number] MONSE LANDERS MRN/PID: [id number] Fellow: Nurse: Date of /Age: 4 1940 / 83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 Margarine: Fletcher Navarro RDCS Gender assigned at M Additional Staff: : Height: 167.64 cm Admit Date: Weight: 83.46 kg Admission Status: Inpatient - Routine BSA / BMI: 1.93 m2 / 29.70 kg/m2 Blood Pressure: 117/37 mmHg Department Location: [place] [address] Study Type: TRANSTHORACIC ECHO (TTE) LIMITED Diagnosis/ICD: Encounter for follow up examination after completed treatment for conditions other than malignant neoplasm-Z09; Presence of other cardiac implants and grafts-Z95.818 Indication: s/p LAAO CPT Code: Echo Limited-23081 Patient History: Pertinent History: Chronic systolic left heart failure, HFrEF, secondary to ischemic cardiomyopathy, LVEF 30%, sick sinus syndrome dual-chamber pacemaker, hypertension, hyperlipidemia, Coronary artery bypass grafting with SAMUEL to LAD SVG to PDA, Obstructive sleep apnea, TIA December 2016, Left upper extremity DVT, s/p LAAO 10/20/24. Study Detail: The following Echo studies were performed: 2D. PHYSICIAN INTERPRETATION: Left Ventricle: The left ventricle was not well visualized. The left ventricular ejection fraction could not be measured. The left ventricular cavity size is moderately dilated. Abnormal (paradoxical) septal motion, consistent with RV pacemaker. Left ventricular diastolic filling was not assessed. LV function is reduced but cannot be assessed accurately. Left Atrium: The left atrial size is severely dilated. Right Ventricle: The right ventricle is normal in size. There is normal right ventricular global systolic function. A device is visualized in the right ventricle. Right Atrium: The right atrium is moderate to severely dilated. There is a device visualized in the right atrium. Aortic Valve: The aortic valve is structurally normal. There is mild aortic valve cusp calcification. Aortic valve regurgitation was not assessed. Mitral Valve: The mitral valve is normal in structure. Mitral valve regurgitation was not assessed. Tricuspid Valve: The tricuspid valve is structurally normal. Tricuspid regurgitation was not assessed. Pulmonic Valve: The pulmonic valve was not assessed. Pulmonic valve regurgitation was not assessed. Pericardium: Trivial pericardial effusion. Aorta: The aortic root is normal. In comparison to the previous echocardiogram(s): Compared with study dated 10/20/2024, no significant change. CONCLUSIONS: 1. The left ventricle was not well visualized. The left ventricular ejection fraction could not be measured. 2. Left ventricular cavity size is moderately dilated. 3. 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 4. LV function is reduced but cannot be assessed accurately. 5. There is normal right ventricular global systolic function. 6. The left atrial size is severely dilated. 7. The right atrium is moderate to severely dilated. 8. Compared with study dated 10/20/2024, no significant change. QUANTITATIVE DATA SUMMARY: [id number] Benja Adan MD Electronically signed on 10/21/2024 at 10:56:59 AM Final Benja Beth MD - 10/21/2024 [facility], [address] [place] [address] and TRANSTHORACIC ECHOCARDIOGRAM REPORT Patient Name: YOANA PATRICE Reading Physician: [id number] Benja Adan MD Study Date: 10/21/2024 Ordering Provider: [id number] MONSE LANDERS MRN/PID: [id number] Fellow: Nurse: Date of /Age: 4 1940 / 83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 Margarine: Fletcher Navarro JERE Gender assigned at M Additional Staff: : Height: 167.64 cm Admit Date: Weight: 83.46 kg Admission Status: Inpatient - Routine BSA / BMI: 1.93 m2 / 29.70 kg/m2 Blood Pressure: 117/37 mmHg Department Location: [place] [address] Study Type: TRANSTHORACIC ECHO (TTE) LIMITED Diagnosis/ICD: Encounter for follow up examination after completed treatment for conditions other than malignant neoplasm-Z09; Presence of other cardiac implants and grafts-Z95.818 Indication: s/p LAAO CPT Code: Echo Limited-26895 Patient History: Pertinent History: Chronic systolic left heart failure, HFrEF, secondary to ischemic cardiomyopathy, LVEF 30%, sick sinus syndrome dual-chamber pacemaker, hypertension, hyperlipidemia, Coronary artery bypass grafting with SAMUEL to LAD SVG to PDA, Obstructive sleep apnea, TIA December 2016, Left upper extremity DVT, s/p LAAO 10/20/24. Study Detail: The following Echo studies were performed: 2D. PHYSICIAN INTERPRETATION: Left Ventricle: The left ventricle was not well visualized. The left ventricular ejection fraction could not be measured. The left ventricular cavity size is moderately dilated. Abnormal (paradoxical) septal motion, consistent with RV pacemaker. Left ventricular diastolic filling was not assessed. LV function is reduced but cannot be assessed accurately. Left Atrium: The left atrial size is severely dilated. Right Ventricle: The right ventricle is normal in size. There is normal right ventricular global systolic function. A device is visualized in the right ventricle. Right Atrium: The right atrium is moderate to severely dilated. There is a device visualized in the right atrium. Aortic Valve: The aortic valve is structurally normal. There is mild aortic valve cusp calcification. Aortic valve regurgitation was not assessed. Mitral Valve: The mitral valve is normal in structure. Mitral valve regurgitation was not assessed. Tricuspid Valve: The tricuspid valve is structurally normal. Tricuspid regurgitation was not assessed. Pulmonic Valve: The pulmonic valve was not assessed. Pulmonic valve regurgitation was not assessed. Pericardium: Trivial pericardial effusion. Aorta: The aortic root is normal. In comparison to the previous echocardiogram(s): Compared with study dated 10/20/2024, no significant change. CONCLUSIONS: 1. The left ventricle was not well visualized. The left ventricular ejection fraction could not be measured. 2. Left ventricular cavity size is moderately dilated. 3. 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 4. LV function is reduced but cannot be assessed accurately. 5. There is normal right ventricular global systolic function. 6. The left atrial size is severely dilated. 7. The right atrium is moderate to severely dilated. 8. Compared with study dated 10/20/2024, no significant change. QUANTITATIVE DATA SUMMARY: [id number] Benja Adan MD Electronically signed on 10/21/2024 at 10:56:59 AM Final [facility] Work Phone: [facility] Work Phone: Abo/Rh Group Teston 10-20-19 25 ABO group Nom (Bld) A [facility] D Ag Ql (d) Positive [facility] Activated clotting timeon ACT Coag (d) 328 s High 89-169 [facility] Comment on above: Result Comment: Targ et ACT range will vary based on the patient population, clinical status, and surgical intervention occurring. Performed By: #### 3 184-9 ####GHISLAINE Baron ([id number])[facility] ([facility])[address] [place] [address] Basic metabolic 2000 panelon 10-20-2024 Anion gap [Moles/Vol] 14 mmol/L 10 - 2 0 mmol/L [facility] Calcium [Mass/Vol] 8.6 mg/dL 8.6 - 10. 6 mg/dL [facility] Chloride [Moles/Vol] 105 mmol/L 98 - 10 7 mmol/L [facility] CO2 [Moles/Vol] 28 mmol/L 21 - 32 mmol/L [facility] Creatinine [Mass/Vol] 1.38 mg/dL High 0.50 - 1.30 mg/dL [facility] GFR/1.73 sq M.predicted among non-blacks MDRD (S/P/Bld) [Vol rate/Area] 51 mL/min/{1.73_m2} Low - PINF [facility] Comment on above: Calculations of ginette mated GFR are performed using the 2020 CKD-EPI Study Refit equation without the race variable for the IDMS-Traceable creatinine methods. https://jasn.asnjournals.org/content/early//ASN.88159 90037 Glucose [Mass/Vol] 111 mg/dL High 74 - 99 mg/dL [facility] Interpretation and review of laboratory results Abnormal [facility] Potassium [Moles/Vol] 4.5 mmol/L 3.5 - 5.3 mmol/L [facility] Sodium [Moles/Vol] 142 mmol/L 136 - 145 mmol/L [facility] Urea nitrogen [Mass/Vol] 36 mg/dL High 6 - 23 mg/dL [facility] Anion gap [Moles/Vol] 14 mmol/L Normal 10-20 [facility] Comment on above: Performed By: #### 2 4321-2 #### GHISLAINE Baron ([id number]) [facility] ([facility]) [address] [place] [address] 85880 Calcium [Mass/Vol] 8.6 mg/dL Normal 8.6-10.6 [facility] Comment on above: Performed By: #### 2 4321-2 #### GHISLAINE RAE L ([id number]) [facility] ([facility]) [address] [place] [address] 28909 Chloride [Moles/Vol] 105 mmol/L Normal 98-107 [facility] Comment on above: Performed By: #### 2 4321-2 #### GHISLAINE RAE L ([id number]) [facility] ([facility]) [address] [place] [address] 33182 CO2 [Moles/Vol] 28 mmol/L Normal 21-32 [facility] Comment on above: Performed By: #### 2 4321-2 #### GHISLAINE Baron ([id number]) [facility] ([facility]) [address] [place] [address] 76583 Creatinine [Mass/Vol] 1.38 mg/dL High 0.50-1.30 [facility] Comment on above: Performed By: #### 2 4321-2 #### GHISLAINE RAE L ([id number]) [facility] ([facility]) [address] [place] [address] 89821 Glomerular filtration rate/1.73 sq M.predicted 51 mL/min/1.73m*2 Low >60 [facility] Comment on above: Result Comment: Calc ulations of estimated GFR are performed using the 2020 CKD-EPI Study Refit equation without the race variable for the IDMS-Traceable creatinine methods. https://jasn.asnjournals.org/content//ASN.10565 16075 Performed By: #### 2 4321-2 #### GHISLAINE Baron ([id number]) [facility] ([facility]) [address] [place] [address] Glucose [Mass/Vol] 111 mg/dL High 74-99 [facility] Comment on above: Performed By: #### 2 4321-2 #### GHISLAINE Baron ([id number]) [facility] ([facility]) [address] [place] [address] Potassium [Moles/Vol] 4.5 mmol/L Normal 3.5-5.3 [facility] Comment on above: Performed By: #### 2 4321-2 #### GHISLAINE Baron ([id number]) [facility] ([facility]) [address] [place] [address] 45284 Sodium [Moles/Vol] 142 mmol/L Normal 136-145 [facility] Comment on above: Performed By: #### 2 4321-2 #### GHISLAINE Baron ([id number]) [facility] ([facility]) [address] [place] [address] 32588 Urea nitrogen [Mass/Vol] 36 mg/dL High 6-23 [facility] Comment on above: Performed By: #### 2 4321-2 #### GHISLAINE Baron ([id number]) [facility] ([facility]) [id number] [place] [address]14 Blood type AND Indirect anti body screen panelon 10-20-2024 ABO group Nom (Bld) A [facility] Comment on above: Performed By: #### 3 4532-2 #### GHISLAINE Baron ([id number]) [facility] ([facility]) [id number] [place] [address] Performed By: #### V ERAB #### GHISLAINE Baron ([id number]) [facility] ([facility]) [id number] [place] [address] 13237 D Ag Ql (Bld) Positive [facility] Comment on above: Performed By: #### 3 2-2 #### GHISLAINE Baron ([id number]) [facility] ([facility]) [address] [place] [address] Performed By: #### V ERAB #### GHISLAINE Baron ([id number]) [facility] ([facility]) [address] [place] [address] Blood type and Indirect anti body screen panel (Bld)on 10-20-2024 ABO group Nom (Bld) A [facility] Blood group antibody screen Ql Negative [facility] D Ag Ql (Bld) Positive [facility] Blood group antibody screen Ql Negative Normal [facility] Comment on above: Performed By: #### 3 4532-2 #### GHISLAINE Baron ([id number]) [facility] ([facility]) [address] [place] [address] CARDIAC CATHETERIZATION PROC EDUREon 10-20-2024 CARDIAC CATHETERIZATION PROCEDURE [facility], Grocery Manager, [address] [place] [address] Cardiovascular Catheterization Report Patient Name: YOANA IBRAHIM Performing Physician: Gaudencio Pickering MD Study Date: 10/20/2024 Verifying Physician: Gaudencio Pickering MD MRN/PID: [id number] Cuffer/Co-Scrub: Ordering Provider: Gaudencio PICKERING Date of 1940 Cuffer: /Age: years Gender: M Fellow: [id number] Marvin Rascon MD Surgeon: Study: Left Atrial Appendage Closure Indications: Left Atrial Appendage Closure (LAAC): Sterile prep and appropriate procedure timeout were performed. Using ultrasound guidance and micropuncture technique dual access was obtained in the right common femoral vein. Two 8F sheaths were placed using a modified Seldinger technique. The patient was administered IV Heparin and ACT was confirmed to be therapeutic. An AcuNav ICE probe was then advanced through one of the sheaths and under ICE guidance, transseptal puncture was performed with a HRsoft system (panpan), accessing the left atrium. The transseptal tract was then dilated with a Watchman FXD Double Curve access sheath and the ICE probe was advanced through the dilated tract into the left atrium. Next, a 6 Hong Konger angled pigtail was advanced through the delivery sheath into the left atrial appendage and angiography was performed via the pigtail. Sizing of the device was confirmed by ICE and angiography, we then advanced a 35 mm Watchman FLX Pro Closure Device but could not obtain sastifactory placement. We then exchanged the FXD Double Curve for the TruSteer delivery systement and redeployed the 35mm Watchman FLX Pro device and confirmed placement both by ICE and angiography. Multiple 'tug test' were performed and confirmed stability. No color Doppler flow around the device was appreciated. 18% device compression was also confirmed. Having satisfied position, anchoring, size and seal criteria, the device was successfully deployed. All equipment was then removed and hemostasis was facilitated by Vascade and Proglide Closure devices The patient was enrolled in a research study and data was included in the LAAO registry. Hemo Personnel: + +------- --+ Name Duty + +------- --+ Fabiano Pickering MD, MD 1 + +------- --+ Hemodynamic Pressures: +----+ + +---------+--- --------+ + Site Date Time Phase Name Mean mmHg A-Wave mmHg V-Wave mmHg +----+ + +---------+--- --------+ + LA 10/20/2024 5:54:23 PM Rest 28 27 43 +----+ + +---------+--- --------+ + Cardiac Cath Post Procedure Notes: Post Procedure Diagnosis: S/p successful LAAO with 35mm Watchman FLX Pro. Blood Loss: Estimated blood loss during the procedure was 15 mls. Specimens Removed: Number of specimen(s) removed: none. CONCLUSIONS: 1. S/p successful LAAO with 35mm Watchman FLX Pro. ICD 10 Codes: Longstanding persistent AFib-I48.11 CPT Codes: Perc left atrial appendage closure (LAAC)-[id number] Fabiano Pickering MD Performing Physician Final Normal [facility] CBC W Auto Differential pane l (Bld)on 10-20-2024 Basophils (Bld) [#/Vol] 0.03 10*3/uL [facility] Basophils/100 WBC (Bld) 0.6 % 0.0 - 2.0 % [facility] Eosinophils (Bld) [#/Vol] 0.09 10*3/uL [facility] Eosinophils/100 WBC (Bld) 1.7 % 0.0 - 6.0 % [facility] Erythrocyte distribution width (RBC) [Ratio] 12.5 % 11.5 - 14.5 % [facility] Hematocrit (Bld) [Volume fraction] 31.2 % Low 41.0 - 52.0 % [facility] Hemoglobin (Bld) [Mass/Vol] 10 g/dL Low 13.5 - 17.5 g/dL [facility] Immature granulocytes (Bld) [#/Vol] 0.02 10*3/uL [facility] Immature granulocytes/100 WBC (Bld) 0.4 % 0.0 - 0.9 % [facility] Comment on above: Immature Granulocyte Count (IG) includes promyelocytes, myelocytes and metamyelocytes but does not include bands. Percent differential counts (%) should be interpreted in the context of the absolute cell counts (cells/UL). Interpretation and review of laboratory results Abnormal [facility] Lymphocytes (Bld) [#/Vol] 0.71 10*3/uL Low [facility] Lymphocytes/100 WBC (Bld) 13.7 % 13.0 - 44.0 % [facility] MCH (RBC) [Entitic mass] 33.7 pg 26.0 - 34.0 pg [facility] MCHC (RBC) [Mass/Vol] 32.1 g/dL 32.0 - 36.0 g/dL [facility] MCV (RBC) [Entitic vol] 105 fL High 80 - 100 fL [facility] Monocytes (Bld) [#/Vol] 0.62 10*3/uL [facility] Monocytes/100 WBC (Bld) 12 % 2.0 - 10.0 % [facility] Neutrophils (Bld) [#/Vol] 3.71 10*3/uL [facility] Comment on above: Percent differential counts (%) should be interpreted in the context of the absolute cell counts (cells/uL). Neutrophils/100 WBC (Bld) 71.6 % 40.0 - 80.0 % [facility] Nucleated RBC/100 WBC (Bld) [Ratio] 0 % [facility] Platelets (Bld) [#/Vol] 167 10*3/uL [facility] RBC (Bld) [#/Vol] 2.97 10*6/uL [facility] WBC (Bld) [#/Vol] 5.2 10*3/uL [facility] Basophils (Bld) [#/Vol] 0.03 x10*3/uL Normal 0.00-0.10 [facility] Comment on above: Performed By: #### 5 7021-8 #### GHISLAINE Baron ([id number]) [facility] ([facility]) [id number] [place] [address] 10622 Basophils/100 WBC (Bld) 0.6 % Normal 0.0-2.0 [facility] Comment on above: Performed By: #### 5 7021-8 #### GHISLAINE Baron ([id number]) [facility] ([facility]) [address] [place] [address] 12519 Eosinophils (Bld) [#/Vol] 0.09 x10*3/uL Normal 0.00-0.40 [facility] Comment on above: Performed By: #### 5 7021-8 #### GHISLAINE Baron ([id number]) [facility] ([facility]) [address] [place] [address] 58751 Eosinophils/100 WBC (Bld) 1.7 % Normal 0.0-6.0 [facility] Comment on above: Performed By: #### 5 7021-8 #### GHISLAINE Baron ([id number]) [facility] ([facility]) [address] [place] [address] 06897 Erythrocyte distribution width (RBC) [Ratio] 12.5 % Normal 11.5-14.5 [facility] Comment on above: Performed By: #### 5 7021-8 #### GHISLAINE Baron ([id number]) [facility] ([facility]) [address] [place] [address] 52759 Hematocrit (Bld) [Volume fraction] 31.2 % Low 41.0-52.0 [facility] Comment on above: Performed By: #### 5 7021-8 #### GHISLAINE Baron ([id number]) [facility] ([facility]) [address] [place] [address] 50989 Hemoglobin (Bld) [Mass/Vol] 10.0 g/dL Low 13.5-17.5 [facility] Comment on above: Performed By: #### 5 7021-8 #### GHISLAINE Baron ([id number]) [facility] ([facility]) [address] [place] [address] 28101 Immature granulocytes (Bld) [#/Vol] 0.02 x10*3/uL Normal 0.00-0.50 [facility] Comment on above: Performed By: #### 5 7021-8 #### GHISLAINE Baron ([id number]) [facility] ([facility]) [id number] [place] [address] 99589 Immature granulocytes/100 WBC (Bld) 0.4 % Normal 0.0-0.9 [facility] Comment on above: Result Comment: Pepper ture Granulocyte Count (IG) includes promyelocytes, myelocytes and metamyelocytes but does not include bands. Percent differential counts (%) should be interpreted in the context of the absolute cell counts (cells/UL). Performed By: #### 5 7021-8 #### GHISLAINE Baron ([id number]) [facility] ([facility]) [address] [place] [address] 90589 Lymphocytes (Bld) [#/Vol] 0.71 x10*3/uL Low 0.80-3.00 [facility] Comment on above: Performed By: #### 5 7021-8 #### GHISLAINE Baron ([id number]) [facility] ([facility]) [address] [place] [address] 33708 Lymphocytes/100 WBC (Bld) 13.7 % Normal 13.0-44.0 [facility] Comment on above: Performed By: #### 5 7021-8 #### GHISLAINE Baron ([id number]) [facility] ([facility]) [address] [place] [address] 84070 MCH (RBC) [Entitic mass] 33.7 pg Normal 26.0-34.0 [facility] Comment on above: Performed By: #### 5 7021-8 #### GHISLAINE Baron ([id number]) [facility] ([facility]) [address] [place] [address] 27061 MCHC (RBC) [Mass/Vol] 32.1 g/dL Normal 32.0-36.0 [facility] Comment on above: Performed By: #### 5 7021-8 #### GHISLAINE Baron ([id number]) [facility] ([facility]) [address] [place] [address] MCV (RBC) [Entitic vol] 105 fL High 80-100 [facility] Comment on above: Performed By: #### 5 7021-8 #### GHISLAINE Baron ([id number]) [facility] ([facility]) [address] [place] [address] 97165 Monocytes (Bld) [#/Vol] 0.62 x10*3/uL Normal 0.05-0.80 [facility] Comment on above: Performed By: #### 5 7021-8 #### GHISLAINE Baron ([id number]) [facility] ([facility]) [address] [place] [address] 60720 Monocytes/100 WBC (Bld) 12.0 % Normal 2.0-10.0 [facility] Comment on above: Performed By: #### 5 7021-8 #### GHISLAINE Baron ([id number]) [facility] ([facility]) [address] [place] [address] 17631 Neutrophils (Bld) [#/Vol] 3.71 x10*3/uL Normal 1.60-5.50 [facility] Comment on above: Result Comment: Perc ent differential counts (%) should be interpreted in the context of the absolute cell counts (cells/uL). Performed By: #### 5 7021-8 #### GHISLAINE Baron ([id number]) [facility] ([facility]) [id number] [place] [address] 13910 Neutrophils/100 WBC (Bld) 71.6 % Normal 40.0-80.0 [facility] Comment on above: Performed By: #### 5 7021-8 #### GHISLAINE Baron ([id number]) [facility] ([facility]) [id number] [place] [address] 43005 Nucleated RBC/100 WBC (Bld) [Ratio] 0.0 /100 WBCs Normal 0.0-0.0 [facility] Comment on above: Performed By: #### 5 7021-8 #### GHISLAINE NIETOER L ([id number]) [facility] ([facility]) [address] [place] [address] Platelets (Bld) [#/Vol] 167 x10*3/uL Normal 150-450 [facility] Comment on above: Performed By: #### 5 7021-8 #### GHISLAINE SCHMOTZER L ([id number]) [facility] ([facility]) [address] [place] [address] RBC (Bld) [#/Vol] 2.97 x10*6/uL Low 4.50-5.90 [facility] Comment on above: Performed By: #### 5 7021-8 #### GHISLAINE QUIÑONESMOTZER L ([id number]) [facility] ([facility]) [address] [place] [address] WBC (Bld) [#/Vol] 5.2 x10*3/uL Normal 4.4-11.3 [facility] Comment on above: Performed By: #### 5 7021-8 #### GHISLAINE QUIÑONESMOTZER L ([id number]) [facility] ([facility]) [address] [place] [address] CT WATCHMAN LOW CONTRASTon 0 10-20-2024 CT WATCHMAN LOW CONTRAST Interpreted By: Chris Del Cid, STUDY: CT WATCHMAN LOW CONTRAST; 10/20/2024 12:30 pm INDICATION: Signs/Symptoms:A-fib, Pre-Watchman, CATHY Sizing, R/O CATHY Thrombus. ,I48.91 Unspecified atrial fibrillation (Multi) COMPARISON: None. ACCESSION NUMBER(S): [id number] ORDERING CLINICIAN: FABIANO PICKERING TECHNIQUE: Using multi-detector CT technology, axial, sequential imaging (at 45% phase of cardiac size) with prospective gating was performed of the chest following the intravenous administration of 50 ML Omnipaque 350. Additional delayed axial, sequential imaging with prospective gating of chest was performed for better evaluation of left atrial appendage thrombus. For optimization of anatomic evaluation, multiplanar reconstruction, maximum intensity projections, and advanced 3-D off-line postprocessing were performed on a dedicated stand-alone workstation under the direct supervision of the interpreting physician. FINDINGS: POTENTIAL STUDY LIMITATIONS: Pacemaker artifact, limited contrast enhancement and patient arrhythmia. CORONARY ARTERIES: CORONARY ANATOMY: There is normal origin of the coronary arteries. Right dominant system. There is severe calcifications and LAD stent. CARDIAC CHAMBERS: The cardiac chambers demonstrate normal atrioventricular and ventriculoarterial concordance, and systemic and pulmonary venous return. LEFT ATRIUM: Significantly dilated (34.0-cm2). There is no evidence of left atrium or left atrial appendage thrombus. The left atrial appendage orifice is oval in shape, measuring 2.9 x 2.3 cm in orthogonal dimensions and with an area of 5.55 cm. sq. Left atrial appendage depth is 3.2 cm. RIGHT ATRIUM: Severely dilated (35.2-cm2) VENTRICLES: The left and right ventricles appear normal in appearance, although accurate size measurements are not possible on systolic phase imaging. 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 INTERATRIAL SEPTUM: Intact. INTERVENTRICULAR SEPTUM: Intact. AORTIC VALVE: The aortic valve is trileaflet in morphology. No valvular thickening or calcifications. MITRAL VALVE: No valvular thickening/calcification. THORACIC AORTA: The thoracic aorta normal in course and caliber.There is no evidence for acute aortic pathology, such as dissection, intramural hematoma, or contained rupture. There is moderate atherosclerotic calcification of the thoracic aorta. The aortic arch is not included on this examination. PERICARDIUM: There is no pericardial effusion seen. CHEST: The trachea and central airways are patent. No endobronchial lesion is seen. The bilateral lungs are clear without evidence of focal consolidation, pleural effusion, or pneumothorax. Minimal basilar atelectasis. No evidence of lymphadenopathy within included mediastinum. Visualized esophagus appears within normal limits as seen. UPPER ABDOMEN: The visualized subdiaphragmatic structures demonstrate no remarkable findings. There is elevation of the right hemidiaphragm. CHEST WALL AND OSSEOUS STRUCTURES: Visualized chest wall is within normal limits. No acute osseous pathology.There are no suspicious osseous lesions within included chest. IMPRESSION: 1. No evidence of left atrial/left atrial appendage thrombus. 2. The left atrial appendage orifice is oval in shape, measuring 2.9 x 2.3 cm in orthogonal dimensions and with an area of 5.55 cm. sq. Left atrial appendage depth is 3.2. 3. Extensive atherosclerotic calcification of the coronary arteries and LAD stent. There is apical septal thinning and correlate with history of prior apical septal ischemia/infarction.. MACRO: None Signed by: Chris Del Cid 10/20/2024 1:22 PM Dictation workstation: [id number] [facility] Comment on above: Order Comment: Era l EF - 750mL water PO over 3 hours pre scan and 250mL post scan. Encourage adequate PO intake post. CT watchman low contraston 0 10-20-2024 1. No evidence of le ft atrial/left atrial appendage thrombus. 2. The left atrial appendage orifice is oval in shape, measuring 2.9 x 2.3 cm in orthogonal dimensions and with an area of 5.55 cm. sq. Left atrial appendage depth is 3.2. 3. Extensive atherosclerotic calcification of the coronary arteries and LAD stent. There is apical septal thinning and correlate with history of prior apical septal ischemia/infarction.. MACRO: None Signed by: Chris Del Cid 10/20/2024 1:22 PM Dictation workstation: [id number] [facility] Interpreted By: Chris Mehta, STUDY: CT WATCHMAN LOW CONTRAST; 10/20/2024 12:30 pm INDICATION: Signs/Symptoms:A-fib, Pre-Watchman, CATHY Sizing, R/O CATHY Thrombus. ,I48.91 Unspecified atrial fibrillation (Multi) COMPARISON: None. ACCESSION NUMBER(S): [id number] ORDERING CLINICIAN: FABIANO PICKERING TECHNIQUE: Using multi-detector CT technology, axial, sequential imaging (at 45% phase of cardiac size) with prospective gating was performed of the chest following the intravenous administration of 50 ML Omnipaque 350. Additional delayed axial, sequential imaging with prospective gating of chest was performed for better evaluation of left atrial appendage thrombus. For optimization of anatomic evaluation, multiplanar reconstruction, maximum intensity projections, and advanced 3-D off-line postprocessing were performed on a dedicated stand-alone workstation under the direct supervision of the interpreting physician. FINDINGS: POTENTIAL STUDY LIMITATIONS: Pacemaker artifact, limited contrast enhancement and patient arrhythmia. CORONARY ARTERIES: CORONARY ANATOMY: There is normal origin of the coronary arteries. Right dominant system. There is severe calcifications and LAD stent. CARDIAC CHAMBERS: The cardiac chambers demonstrate normal atrioventricular and ventriculoarterial concordance, and systemic and pulmonary venous return. LEFT ATRIUM: Significantly dilated (34.0-cm2). There is no evidence of left atrium or left atrial appendage thrombus. The left atrial appendage orifice is oval in shape, measuring 2.9 x 2.3 cm in orthogonal dimensions and with an area of 5.55 cm. sq. Left atrial appendage depth is 3.2 cm. RIGHT ATRIUM: Severely dilated (35.2-cm2) VENTRICLES: The left and right ventricles appear normal in appearance, although accurate size measurements are not possible on systolic phase imaging. 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 INTERATRIAL SEPTUM: Intact. INTERVENTRICULAR SEPTUM: Intact. AORTIC VALVE: The aortic valve is trileaflet in morphology. No valvular thickening or calcifications. MITRAL VALVE: No valvular thickening/calcification. THORACIC AORTA: The thoracic aorta normal in course and caliber.There is no evidence for acute aortic pathology, such as dissection, intramural hematoma, or contained rupture. There is moderate atherosclerotic calcification of the thoracic aorta. The aortic arch is not included on this examination. PERICARDIUM: There is no pericardial effusion seen. CHEST: The trachea and central airways are patent. No endobronchial lesion is seen. The bilateral lungs are clear without evidence of focal consolidation, pleural effusion, or pneumothorax. Minimal basilar atelectasis. No evidence of lymphadenopathy within included mediastinum. Visualized esophagus appears within normal limits as seen. UPPER ABDOMEN: The visualized subdiaphragmatic structures demonstrate no remarkable findings. There is elevation of the right hemidiaphragm. CHEST WALL AND OSSEOUS STRUCTURES: Visualized chest wall is within normal limits. No acute osseous pathology.There are no suspicious osseous lesions within included chest. [facility] Hali Del Cid MD - 10/20/2024 Interpreted By: Chris Del Cid, STUDY: CT WATCHMAN LOW CONTRAST; 10/20/2024 12:30 pm INDICATION: Signs/Symptoms:A-fib, Pre-Watchman, CATHY Sizing, R/O CATHY Thrombus. ,I48.91 Unspecified atrial fibrillation (Multi) COMPARISON: None. ACCESSION NUMBER(S): [id number] ORDERING CLINICIAN: FABIANO PICKERING TECHNIQUE: Using multi-detector CT technology, axial, sequential imaging (at 45% phase of cardiac size) with prospective gating was performed of the chest following the intravenous administration of 50 ML Omnipaque 350. Additional delayed axial, sequential imaging with prospective gating of chest was performed for better evaluation of left atrial appendage thrombus. For optimization of anatomic evaluation, multiplanar reconstruction, maximum intensity projections, and advanced 3-D off-line postprocessing were performed on a dedicated stand-alone workstation under the direct supervision of the interpreting physician. FINDINGS: POTENTIAL STUDY LIMITATIONS: Pacemaker artifact, limited contrast enhancement and patient arrhythmia. CORONARY ARTERIES: CORONARY ANATOMY: There is normal origin of the coronary arteries. Right dominant system. There is severe calcifications and LAD stent. CARDIAC CHAMBERS: The cardiac chambers demonstrate normal atrioventricular and ventriculoarterial concordance, and systemic and pulmonary venous return. LEFT ATRIUM: Significantly dilated (34.0-cm2). There is no evidence of left atrium or left atrial appendage thrombus. The left atrial appendage orifice is oval in shape, measuring 2.9 x 2.3 cm in orthogonal dimensions and with an area of 5.55 cm. sq. Left atrial appendage depth is 3.2 cm. RIGHT ATRIUM: Severely dilated (35.2-cm2) VENTRICLES: The left and right ventricles appear normal in appearance, although accurate size measurements are not possible on systolic phase imaging. 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 INTERATRIAL SEPTUM: Intact. INTERVENTRICULAR SEPTUM: Intact. AORTIC VALVE: The aortic valve is trileaflet in morphology. No valvular thickening or calcifications. MITRAL VALVE: No valvular thickening/calcification. THORACIC AORTA: The thoracic aorta normal in course and caliber.There is no evidence for acute aortic pathology, such as dissection, intramural hematoma, or contained rupture. There is moderate atherosclerotic calcification of the thoracic aorta. The aortic arch is not included on this examination. PERICARDIUM: There is no pericardial effusion seen. CHEST: The trachea and central airways are patent. No endobronchial lesion is seen. The bilateral lungs are clear without evidence of focal consolidation, pleural effusion, or pneumothorax. Minimal basilar atelectasis. No evidence of lymphadenopathy within included mediastinum. Visualized esophagus appears within normal limits as seen. UPPER ABDOMEN: The visualized subdiaphragmatic structures demonstrate no remarkable findings. There is elevation of the right hemidiaphragm. CHEST WALL AND OSSEOUS STRUCTURES: Visualized chest wall is within normal limits. No acute osseous pathology.There are no suspicious osseous lesions within included chest. IMPRESSION: 1. No evidence of left atrial/left atrial appendage thrombus. 2. The left atrial appendage orifice is oval in shape, measuring 2.9 x 2.3 cm in orthogonal dimensions and with an area of 5.55 cm. sq. Left atrial appendage depth is 3.2. 3. Extensive atherosclerotic calcification of the coronary arteries and LAD stent. There is apical septal thinning and correlate with history of prior apical septal ischemia/infarction.. MACRO: None Signed by: Chris Del Cid 10/20/2024 1:22 PM Dictation workstation: [id number] [facility] Work Phone: Radiology Study observation (narrative) [facility] Work Phone: CT watchman low contrastOrde red By: Hali Del Cid on 10-20-2024 [facility] Work Phone: Coagulation tissue factor in ducedon 10-20-2024 PT Coag (PPP) [Time] 15.1 s High 9.8-12.8 [facility] Comment on above: Performed By: #### 5 902-2 #### GHISLAINE Baron ([id number]) [facility] ([facility]) [address] [place] [address] ECG 12-LEADon 10-20-2024 ECG 12-LEAD Ventricular Rate 60 Atrial Rate 59 QRS Duration 208 Q-T Interval 476 QTC Calculation(Bazett) 476 R Clinton -47 T Clinton 85 QRS Count 10 Q Onset 187 T Offset 425 QTC Fredericia 476 Diagnosis Electronic ventricular pacemaker When compared with ECG of 20-OCT-2024 12:46, No significant change was found Confirmed by Sloan Jaimes ([id number]) on 10/28/2024 11:23:56 AM Normal [facility] ECG 12-LEAD Ventricular Rate 61 Atrial Rate 61 QRS Duration 214 Q-T Interval 486 QTC Calculation(Bazett) 489 R Clinton -51 T Clinton 67 QRS Count 10 Q Onset 182 T Offset 425 QTC Fredericia 488 Diagnosis Ventricular-paced rhythm Abnormal ECG No previous ECGs available Confirmed by Eduardo Christian ([id number]) on 11/03/2024 3:26:21 PM Normal [facility] Glucose Test strip manual (B ld) [Mass/Vol]on 10-20-2024 Glucose [Mass/Vol] 106 mg/dL High 74 - 99 mg/dL [facility] Interpretation and review of laboratory results Abnormal [facility] Glucose [Mass/Vol] 106 mg/dL High 74-99 [facility] Comment on above: Performed By: #### 2 341-6 #### GHISLAINE Baron ([id number]) [facility] ([facility]) [address] [place] [address] Magnesiumon 10-20-2024 Magnesium [Mass/Vol] 2.2 mg/dL 1.60 - 2.40 mg/dL [facility] Magnesium [Mass/Vol] 2.20 mg/dL Normal 1.60-2.40 [facility] Comment on above: Performed By: #### 1 9123-9 #### GHISLAINE Baron ([id number]) [facility] ([facility]) [address] [place] [address] Magnesium [Mass/Vol]on 10-20 Interpretation and review of laboratory results Normal [facility] No Panel Informationon 10-20 [facility] PT Coag (PPP) [Time]on 10-20 INR Coag (PPP) [Relative time] 1.3 {INR} High 0.9 - 1.1 [facility] Interpretation and review of laboratory results Abnormal [facility] INR Coag (PPP) [Relative time] 1.3 High 0.9-1.1 [facility] Comment on above: Performed By: #### 5 902-2 #### GHISLAINE Baron ([id number]) [facility] ([facility]) [address] [place] [address] Protime-INRon 10-20-2024 PT Coag (PPP) [Time] 15.1 s High [facility] TRANSTHORACIC ECHO (TTE) FELDER ITEDon 10-20-2024 TRANSTHORACIC ECHO (TTE) [facility], [address] [place] [id number] and TRANSTHORACIC ECHOCARDIOGRAM REPORT Patient Name: YOANA Zurita Physician: [id number] Benja Adan MD Study Date: 10/20/2024 Ordering Provider: [id number] MONSE Lal LANDERS MRN/PID: [id number] Fellow: [id number] Noemi Mcelroy MD Nurse: Date 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 PHYSICIAN INTERPRETATION: Left Ventricle: The left ventricle was not well visualized. The left ventricular ejection fraction could not be measured. There are no regional left ventricular wall motion abnormalities. The left ventricular cavity size was not assessed. Abnormal (paradoxical) septal motion, consistent with RV pacemaker. Left ventricular diastolic filling was not assessed. Left Atrium: The left atrial size is severely dilated. Right Ventricle: The right ventricle is normal in size. There is reduced right ventricular systolic function. A device is visualized in the right ventricle. Right Atrium: The right atrium is moderately dilated. There is a device visualized in the right atrium. Aortic Valve: The aortic valve is structurally normal. Aortic valve regurgitation was not assessed. Mitral Valve: The mitral valve is normal in structure. Mitral valve regurgitation was not assessed. Tricuspid Valve: The tricuspid valve is structurally normal. Tricuspid regurgitation was not assessed. Pulmonic Valve: The pulmonic valve was not assessed. Pulmonic valve regurgitation was not assessed. Pericardium: Trivial pericardial effusion. Aorta: The aortic root was not assessed. In comparison to the previous echocardiogram(s): Compared with study dated 09/02/2024, no significant change . This is a limited echo, proper comparison is difficult. CONCLUSIONS: 1. The left ventricle was not well visualized. The left ventricular ejection fraction could not be measured. 2. 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 3. There is reduced right ventricular systolic function. 4. The left atrial size is severely dilated. 5. The right atrium is moderately dilated. 6. Trivial pericardial effusion. 7. Compared with study dated 09/02/2024, no significant change . This is a limited echo, proper comparison is difficult. 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 PHYSICIAN INTERPRETATION: Left Ventricle: The left ventricle was not well visualized. The left ventricular ejection fraction could not be measured. There are no regional left ventricular wall motion abnormalities. The left ventricular cavity size was not assessed. Abnormal (paradoxical) septal motion, consistent with RV pacemaker. Left ventricular diastolic filling was not assessed. Left Atrium: The left atrial size is severely dilated. Right Ventricle: The right ventricle is normal in size. There is reduced right ventricular systolic function. A device is visualized in the right ventricle. Right Atrium: The right atrium is moderately dilated. There is a device visualized in the right atrium. Aortic Valve: The aortic valve is structurally normal. Aortic valve regurgitation was not assessed. Mitral Valve: The mitral valve is normal in structure. Mitral valve regurgitation was not assessed. Tricuspid Valve: The tricuspid valve is structurally normal. Tricuspid regurgitation was not assessed. Pulmonic Valve: The pulmonic valve was not assessed. Pulmonic valve regurgitation was not assessed. Pericardium: Trivial pericardial effusion. Aorta: The aortic root was not assessed. In comparison to the previous echocardiogram(s): Compared with study dated 09/02/2024, no significant change . This is a limited echo, proper comparison is difficult. CONCLUSIONS: 1. The left ventricle was not well visualized. The left ventricular ejection fraction could not be measured. 2. 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 3. There is reduced right ventricular systolic function. 4. The left atrial size is severely dilated. 5. The right atrium is moderately dilated. 6. Trivial pericardial effusion. 7. Compared with study dated 09/02/2024, no significant change . This is a limited echo, proper comparison is difficult. 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 PHYSICIAN INTERPRETATION: Left Ventricle: The left ventricle was not well visualized. The left ventricular ejection fraction could not be measured. There are no regional left ventricular wall motion abnormalities. The left ventricular cavity size was not assessed. Abnormal (paradoxical) septal motion, consistent with RV pacemaker. Left ventricular diastolic filling was not assessed. Left Atrium: The left atrial size is severely dilated. Right Ventricle: The right ventricle is normal in size. There is reduced right ventricular systolic function. A device is visualized in the right ventricle. Right Atrium: The right atrium is moderately dilated. There is a device visualized in the right atrium. Aortic Valve: The aortic valve is structurally normal. Aortic valve regurgitation was not assessed. Mitral Valve: The mitral valve is normal in structure. Mitral valve regurgitation was not assessed. Tricuspid Valve: The tricuspid valve is structurally normal. Tricuspid regurgitation was not assessed. Pulmonic Valve: The pulmonic valve was not assessed. Pulmonic valve regurgitation was not assessed. Pericardium: Trivial pericardial effusion. Aorta: The aortic root was not assessed. In comparison to the previous echocardiogram(s): Compared with study dated 09/02/2024, no significant change . This is a limited echo, proper comparison is difficult. CONCLUSIONS: 1. The left ventricle was not well visualized. The left ventricular ejection fraction could not be measured. 2. 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 3. There is reduced right ventricular systolic function. 4. The left atrial size is severely dilated. 5. The right atrium is moderately dilated. 6. Trivial pericardial effusion. 7. Compared with study dated 09/02/2024, no significant change . This is a limited echo, proper comparison is difficult. QUANTITATIVE DATA SUMMARY: [id number] Benja Adan MD Electronically signed on 10/20/2024 at 1:47:16 PM Final [facility] Work Phone: Heart TransthoracicOrdere d By: Benja Adan on 10-20-2024 [facility] Work Phone: [facility]IB[facility] 2023 Interpretation and review of laboratory results Abnormal [facility] TB IRON 94 ug/dL 65.0 - 175.0 ug/dL [facility] TB PERCENT IRON SATURATION 40.5 % [facility] TB TOTAL IRON BINDING CAPACITY 232 ug/dL Low 250.0 - 450.0 ug/dL [facility] ECG 12 Leadon 07-30-2024 Please see the EKG r eport as documented on the EKG. [facility] Work Phone: Ambulatory Visit Summaryon 1 [...] 20 mg Tab) potassium chloride (Potassium Chloride (Fxe-Uuhb-Com 10) 10 mEq oral tablet, extended release) [...] SANCHEZ, Petr Richard Where: [facility] [address] [place] [address]- Medications What How Much When Instructions Unchanged [...] Every day Unchanged potassium chloride (Potassium Chloride (Mal-Mxni-Msl 10) 10 mEq oral tablet, extended release) [...] receiving van (more content not included)... Normal [facility] Urology Office/Clinic Noteon 07-25-2024 Urology Office/Clinic [...] with voice recognition artificial intelligence software, specifically Xsigo, SomethingIndie and or [place] Warp. Substitutions may have occurred due to the [...] prostate) s/p radiation by Dr Galvez in [place] Unsure of year of treatment or initial [...] -PSA rev (more content not included)... Normal [facility] Comment on above: Result Comment: Elec tronically Signed By: BARB Salinas APRN, Anabel Anthony\.fabian\Date and Time Signed: 07/25/24 14:18 EST Operative Reporton 4 Operative Report Operative Report Patient: YOANA IBRAHIM Age: 83 years Sex: Male : 1940 Associated Diagnoses: None Author: Petr PAINTING MD Procedure Operative Information Details: Date/ Time: 06/15/2024 18:01:00. Pre-Op Dx: BPH with obstruction/lower urinary tract symptoms (IWV13-WG N40.1, Billing Diagnosis, Medical), Chronic radiation cystitis (MXY74-QQ N30.40, Billing Diagnosis, Medical), Other obstructive and reflux uropathy (UEK74-FS N13.8, Discharge, Medical), Overactive bladder (FQB16-VW N32.81, Billing Diagnosis, Medical), Personal history of prostate cancer (SES69-AW Z85.46, Billing Diagnosis, Medical). Post-Op Dx: Same. [...] Will try beta 3 agonists. . Normal [facility] Comment on above: Result Comment: Elec tronically Signed By: CINTHYA SANCHEZ, Petr Richard\.br\Date and Time Signed: 07/03/24 18:[address] cervical spine wo con 1 CT cervical spine wo [facility] [place] [address] CT Scan Report Signed Patient: Yoana Ibrahim MR#: [id number] : 1940 Acct:[id number] Age/Sex: 83 / M ADM Date: 06/29/24 [facility]: Type: [facility] CLI Attending Dr: Viky Rollins PA-C Copies to: Viky Rollins PA-C Ordering Provider: Viky Rollins PA-C Date of Service: 06/29/24 CT/CT cervical spine wo con: hyperreflexia, balance issues ([id number]) CT/CT head/brain wo con: balance issues, gait [...] Milan Dickerson M.D.06/29/2024 6:26 PM Dictation Location: [facility]16 Transcribed By: [facility] 06/29/241825 Dictated By: Milan Dickerson II, MD 06/29/241820 Signed By: 06/29/241825 Normal [facility] Inpatient Patient Summaryon 06-15-2024 Inpatient Patient Summary Inpatient Patient Summary [place] [address] Clinical Summary Person Information Name: YOANA IBRAHIM Age: 83 Years : 1940 Sex: Male PCP: SHANIQUE ANDERSON DO Marital Status: Unknown Race: White Ethnicity: Non- or Language: Singaporean Visit Id: Visit Reason: HX OF PROSTATE CANCER, URINARY INCONTINENCE, BPH WITH LUTS Speciality: Acuity: Enc Type: Outpatient Med Service: Surgery Arrival: 06/15/2024 09:54:01 Discharge: Dispo Type: Address: [address] [place] [address] [id number] Provider Notes: Diagnosis: Problems Active Flank pain [...] Mouth every day. potassium chloride (Potassium Chloride (Ybf-Cejd-Smu 10) 10 mEq oral tablet, extended release) [...] an appoint (more content not included)... Normal [facility] Main OR Intraoperative Recor don 06-15-2024 Main OR Intraoperative Record Main OR Intraoperative Record IntraOp Document Type FTURO Summary Primary Physician: Petr PAINTING MD Finalized Date/Time: 06/15/24 10:42:27 Pt. Name: YOANA IBRAHIM/Sex: 1940 Male Med Rec #: [id number] Physician: Petr PAINTING MD Financial #: [id number] Pt. Type: O Room/Bed: / Admit/Disch: 06/15/24 [...] Kendall R Role Performed Surgeon - Primary Metallography Teacher - Relief Scrub - Primary Time In [...] 06/15/24 10:42 Jayna Thapa 06/15/24 10:42 Normal [facility] Main OR Preoperative Recordo n 06-15-2024 Main OR Preoperative Record Main OR Preoperative Record Holding Area Document Type FTURO Summary Primary Physician: Petr PAINTING MD Finalized Date/Time: 06/15/24 10:17:34 Pt. Name: YOANA IBRAHIM/Sex: 1940 Male Med Rec #: [id number] Physician: Petr PAINTING MD Financial #: [id number] Pt. Type: O Room/Bed: / Admit/Disch: 06/15/24 [...] Complaints of Pain: No Skin Integrity Intact, [place], Warm, & Dry Vitals - EU Blood Pressure 157/68 Pulse 71 bpm Respirations 18 br/min SPO2 98 % Additional None Specimens Collected Last Modified By: Rosita Russell LPN 06/15/24 10:17:30 Finalized By: Rosita Russell LPN Document Signatures Signed By: Rosita Russell LPN 06/15/24 10:17 Normal [facility] Outpatient Surgery Discharge Instructionon 06-15-2024 Outpatient Surgery Discharge Instruction Outpatient Surgery Discharge Instruction [place] [id number] Patient Discharge Instructions PERSON INFORMATION Name: YOANA [...] to serve you. Thank you for choosing [facility] Normal [facility] BNP ser/plasOrdered By: Genet Cartagena on 05-10-2024 Natriuretic peptide B (Bld) [Mass/Vol] 252.0 pg/mL High 5-100 [facility] Comment on above: Result Comment: PERF ORMED BY: [place] [address] PATHOLOGIST INTERVENTION ANALYST TONEY KWON M.D. Performed By: #### B MP, BNP #### [facility] [address] [place] [address] Basic Metabolic Panelon 04-14 GFR/1.73 sq M.predicted MDRD (S/P/Bld) [Vol rate/Area] 38.632 mL/min/{1.73_m2} Normal [facility] Comment on above: Performed By: #### B MP, BNP #### [facility] [address] [place] [address] [place] Calcium [Mass/volume] in Ser um or PlasmaOrdered By: Rosemary Cartagena on 05-10-2024 Calcium [Mass/Vol] 8.6 mg/dL Normal 8.6-10.3 [facility] Comment on above: Result Comment: PERF ORMED BY: [place] [address] PATHOLOGIST INTERVENTION ANALYST TONEY KWON M.D. Performed By: #### B MP, BNP #### [facility] [address] [place], [place] [id number] [place] Carbon dioxide, total [Moles /volume] in Serum or PlasmaOrdered By: Rosemary Cartagena on 05-10-2024 CO2 [Moles/Vol] 29.1 mmol/L Normal 21.0-31.0 [facility] Comment on above: Performed By: #### B MP, BNP #### [facility] [address] [place] [address] [place] Chloride [Moles/volume] in S ric or PlasmaOrdered By: Rosemary Cartagena on 05-10-2024 Chloride [Moles/Vol] 107 mmol/L Normal 98-107 [facility] Comment on above: Performed By: #### B MP, BNP #### [facility] [address] Creatinine [Mass/volume] in Serum or PlasmaOrdered By: Rosemary Cartagena on 05-10-2024 Creatinine [Mass/Vol] 1.75 mg/dL High 0.70-1.30 [facility] Comment on above: Performed By: #### B MP, BNP #### [facility] [address] Glucose [Mass/volume] in Ser um or PlasmaOrdered By: Rosemary Cartagena on 05-10-2024 Glucose [Mass/Vol] 286 mg/dL High 70-100 [facility] Comment on above: ADA recommended refe rence rangeRandom Glucose Reference Range is dependent on time and content of last meal. Glucose of more than 200 mg/dL in a nonstressed, ambulatory subject supports the diagnosis of Diabetes Mellitus. Result Comment: [place] om Glucose Reference Range is dependent on time and content of last meal. Glucose of more than 200 mg/dL in a nonstressed, ambulatory subject supports the diagnosis of Diabetes Mellitus. ADA recommended reference range Performed By: #### B MP, BNP #### [facility] [address] [place] [address] No Panel InformationOrdered By: Rosemary Cartagena on 05-10-2024 Estimated GFR (CKD-EPI) 38.632 mL/Min [facility] Creatinine Clearance (Chem N/A [facility] Potassium [Moles/volume] in Serum or PlasmaOrdered By: Rosemary Cartagena on 05-10-2024 Potassium [Moles/Vol] 4.7 mmol/L Normal 3.5-5.1 [facility] Comment on above: Performed By: #### B MP, BNP #### [address] Serum or plasma anion gap de terminationOrdered By: Rosemary Cartagena on 05-10-2024 Anion gap [Moles/Vol] 11.6 mmol/L Normal 6.0-15.0 [facility] Comment on above: Performed By: #### B MP, BNP #### [address] Sodium [Moles/volume] in Ser um or PlasmaOrdered By: Rosemary Cartagena on 05-10-2024 Sodium [Moles/Vol] 143 mmol/L Normal 136-145 [facility] Comment on above: Performed By: #### B MP, BNP #### [address] Urea nitrogen [Mass/volume] in Serum or PlasmaOrdered By: Rosemary Cartagena on 05-10-2024 Urea nitrogen [Mass/Vol] 38 mg/dL High 04-06 [facility] Comment on above: Performed By: #### B MP, BNP #### [address] Physician Referralon 024 Physician Referral [id number] Normal [facility] Basic Metabolic Panelon GFR/1.73 sq M.predicted MDRD (S/P/Bld) [Vol rate/Area] 42.069 mL/min/{1.73_m2} Normal [facility] Comment on above: Performed By: #### B MP #### [address] head/brain wo/w conon CT head/brain wo/w con [facility] Main [place] [address] [place] [address] CT Scan Report Signed Patient: Yoana Ibrahim MR#: [id number] : 1940 Acct:[id number] Age/Sex: 83 / M ADM Date: 02/18/24 Loc: CT Room: Type: [facility] Attending Dr: Viky Rollins PA-C Copies [...] Mo Collier M.D.02/18/2024 4:25 PM Dictation Location: [place] [address] Transcribed By: [facility] 02/18/24 1625 Dictated By: Mo Collier DO 02/18/24 1621 Signed By: 02/18/24 1625 Normal [facility] Calcium [Mass/volume] in Ser um or PlasmaOrdered By: Saira Heart on 02-18-2024 Calcium [Mass/Vol] 9.6 mg/dL Normal 8.6-10.3 [facility] Comment on above: Result Comment: PERF ORMED BY: [place] [address] PATHOLOGIST INTERVENTION ANALYST TONEY KWON M.D. Performed By: #### B MP #### [address] Carbon dioxide, total [Moles /volume] in Serum or PlasmaOrdered By: Saira Heart on 02-18-2024 CO2 [Moles/Vol] 30.8 mmol/L Normal 21.0-31.0 [facility] Comment on above: Performed By: #### B MP #### [facility] [address] Chloride [Moles/volume] in S ric or PlasmaOrdered By: Saira Heart on 02-18-2024 Chloride [Moles/Vol] 103 mmol/L Normal 98-107 [facility] Comment on above: Performed By: #### B MP #### [facility] [address] Creatinine [Mass/volume] in Serum or PlasmaOrdered By: Saira Heart on 02-18-2024 Creatinine [Mass/Vol] 1.63 mg/dL High 0.70-1.30 [facility] Comment on above: Performed By: #### B MP #### [facility] [address] [place] [address] [place] Glucose [Mass/volume] in Ser um or PlasmaOrdered By: Saira Heart on 02-18-2024 Glucose [Mass/Vol] 165 mg/dL High 70-100 [facility] Comment on above: ADA recommended refe rence rangeRandom Glucose Reference Range is dependent on time and content of last meal. Glucose of more than 200 mg/dL in a nonstressed, ambulatory subject supports the diagnosis of Diabetes Mellitus. Result Comment: [place] om Glucose Reference Range is dependent on time and content of last meal. Glucose of more than 200 mg/dL in a nonstressed, ambulatory subject supports the diagnosis of Diabetes Mellitus. ADA recommended reference range Performed By: #### B MP #### [address] No Panel InformationOrdered By: Saira Heart on 02-18-2024 Estimated GFR (CKD-EPI) 42.069 mL/Min [facility] Creatinine Clearance (Chem N/A [facility] Potassium [Moles/volume] in Serum or PlasmaOrdered By: Saira Heart on 02-18-2024 Potassium [Moles/Vol] 4.5 mmol/L Normal 3.5-5.1 [facility] Comment on above: Performed By: #### B MP #### [facility] [address] Serum or plasma anion gap de terminationOrdered By: Saira Heart on 02-18-2024 Anion gap [Moles/Vol] 10.7 mmol/L Normal 6.0-15.0 [facility] Comment on above: Performed By: #### B MP #### [facility] [address] [place] [address] [place] Sodium [Moles/volume] in Ser um or PlasmaOrdered By: Saira Heart on 02-18-2024 Sodium [Moles/Vol] 140 mmol/L Normal 136-145 [facility] Comment on above: Performed By: #### B MP #### [facility] [address] [place] [address] Urea nitrogen [Mass/volume] in Serum or PlasmaOrdered By: Saira Heart on 02-18-2024 Urea nitrogen [Mass/Vol] 26 mg/dL High 7-25 [facility] Comment on above: Performed By: #### B MP #### [facility] [address] Alanine aminotransferase [En zymatic activity/volume] in Serum or PlasmaOrdered By: Rosemary Cartagena on 12-03-2023 ALT [Catalytic activity/Vol] 12 U/L 7-52 [facility] Albumin [Mass/volume] in Ser um or Plasma by Bromocresol green (BCG) dye binding methoOrdered By: Rosemary Cartagena on 12-03-2023 Albumin BCG dye [Mass/Vol] 4.1 g/dL 3.5-5.7 [facility] Alkaline phosphatase [Enzyma tic activity/volume] in Serum or PlasmaOrdered By: Rosemary Cartagean on 12-03-2023 ALP [Catalytic activity/Vol] 89 U/L 34-104 [facility] Aspartate aminotransferase [ Enzymatic activity/volume] in Serum or PlasmaOrdered By: Rosemary Cartagena on 12-03-2023 AST [Catalytic activity/Vol] 23 U/L 13-39 [facility] Bilirubin.total [Mass/volume ] in Serum or PlasmaOrdered By: Rosemary Cartagena on 12-03-2023 Bilirubin [Mass/Vol] 0.7 mg/dL 0.3-1.0 [facility] Calcium [Mass/volume] in Ser um or PlasmaOrdered By: Rosemary Cartagena on 12-03-2023 Calcium [Mass/Vol] 9.6 mg/dL 8.6-10.3 [facility] Carbon dioxide, total [Moles /volume] in Serum or PlasmaOrdered By: Rosemary Cartagena on 12-03-2023 CO2 [Moles/Vol] 34.3 mmol/L 21.0-31.0 [facility] Chloride [Moles/volume] in S ric or PlasmaOrdered By: Rosemary Cartagena on 12-03-2023 Chloride [Moles/Vol] 103 mmol/L 98-107 [facility] Cholesterol [Mass/volume] in Serum or PlasmaOrdered By: Rosemary Cartagena on 12-03-2023 Cholesterol [Mass/Vol] 127 mg/dL 140-200 [facility] Comment on above: Chol less than 200 m g/dl low riskChol 201-239 mg/dl borderline riskChol 240 mg/dl and greater high risk Cholesterol in LDL Calc [Mas s/Vol]Ordered By: Rosemary Cartagena on 12-03-2023 Cholesterol in LDL [Mass/Vol] 29 mg/dL 0-100 [facility] Comment on above: LDL ATP III CLASSIFI CATIONLDL less than 100 mg/dL OptimalLDL 100-129 mg/dL Near or above optimalLDL 130-159 mg/dL Borderline highLDL 160-189 mg/dL HighLDL greater than 189 mg/dL Very high Cholesterol in VLDL Calc [Ma ss/Vol]Ordered By: Rosemary Cartagena on 12-03-2023 Cholesterol in VLDL [Mass/Vol] 62 mg/dL [facility] Creatinine [Mass/volume] in Serum or PlasmaOrdered By: Rosemary Cartagena on 12-03-2023 Creatinine [Mass/Vol] 1.25 mg/dL 0.70-1.30 [facility] Globulin Calc (S) [Mass/Vol] Ordered By: Rosemary Cartagena on 12-03-2023 Globulin (S) [Mass/Vol] 2.5 g/dL [facility] Glucose [Mass/volume] in Ser um or PlasmaOrdered By: Rosemary Cartagena on 12-03-2023 Glucose [Mass/Vol] 155 mg/dL 70-100 [facility] Comment on above: ADA recommended refe [...] from glycated hemoglobin (Bld) [Mass/Vol] 143 mg/dL [facility] Hemoglobin A1c percentageOrd ered By: Rosemary Cartagena on 12-03-2023 HbA1c (Bld) [Mass fraction] 6.6 % 4.3-5.6 [facility] Comment on above: Increased risk for d iabetes: 5.7 - 6.4diabetes: >6.4glycemic control for adults with diabetes: <7.0 Natriuretic peptide B [Mass/ Vol]Ordered By: Rosemary Cartagena on 12-03-2023 Natriuretic peptide B (Bld) [Mass/Vol] 316.0 pg/mL 5-100 [facility] No Panel InformationOrdered By: Rosemary Cartagena on 12-03-2023 Estimated GFR (CKD-EPI) 58.211 mL/Min [facility] Creatinine Clearance (Chem N/A [facility] Potassium [Moles/volume] in Serum or PlasmaOrdered By: Rosemary Cartagena on 12-03-2023 Potassium [Moles/Vol] 4.2 mmol/L 3.5-5.1 [facility] Protein [Mass/volume] in Ser um or PlasmaOrdered By: Rosemary Cartagena on 12-03-2023 Protein [Mass/Vol] 6.6 g/dL 6.4-8.9 [facility] Serum or plasma albumin/glob ulin mass ratioOrdered By: Rosemary Cartagena on 12-03-2023 Albumin/Globulin [Mass ratio] 1.6 {ratio} [facility] Serum or plasma anion gap de terminationOrdered By: Rosemary Cartagena on 12-03-2023 Anion gap [Moles/Vol] 8.9 mmol/L 6.0-15.0 [facility] Serum or plasma high density lipoprotein (HDL) cholesterol measurementOrdered By: Rosemary Cartagena on 12-03-2023 Cholesterol in HDL [Mass/Vol] 35 mg/dL 23-92 [facility] Comment on above: HDL CHOL ATP-III CLA SSIFICATION Cardiovascular RiskHDL > or equal to 60 mg/dL LOWHDL < 40 mg/dL HIGH Serum or plasma total choles terol/high density lipoprotein (HDL) cholesterol mass ratOrdered By: Rosemary Cartagena on 12-03-2023 Cholesterol.total/Chol esterol in HDL [Mass ratio] 3.6 {ratio} <5.0 [facility] Sodium [Moles/volume] in Ser um or PlasmaOrdered By: Rosemary Cartagena on 12-03-2023 Sodium [Moles/Vol] 142 mmol/L 136-145 [facility] Thyrotropin [Units/volume] i n Serum or PlasmaOrdered By: Rosemary Cartagena on 12-03-2023 TSH Qn 3.73 m[IU]/L 0.45-5.33 [facility] Triglyceride [Mass/volume] i n Serum or PlasmaOrdered By: Rosemary Cartagena on 12-03-2023 Triglyceride [Mass/Vol] 314 mg/dL 0-149 [facility] Comment on above: TRIG ATP III CLASSIF ICATIONTRIG less than 150 mg/dL NormalTRIG 150-199 mg/dL Borderline highTRIG 200-500 mg/dL High TRIG greater than 500 mg/dL Very highStandard traceable to the Center for Disease Conrtrol and Prevention (CDC) test method. Triiodothyronine (T3) [Mass/ volume] in Serum or PlasmaOrdered By: Rosemary Cartagena on 12-03-2023 T3 [Mass/Vol] 0.93 ng/mL 0.87-1.78 [facility] Urea nitrogen [Mass/volume] in Serum or PlasmaOrdered By: Rosemary Cartagena on 12-03-2023 Urea nitrogen [Mass/Vol] 28 mg/dL 7-25 [facility] Alanine aminotransferase [En zymatic activity/volume] in Serum or PlasmaOrdered By: Rosemary Cartagena on 09-02-2023 ALT [Catalytic activity/Vol] 12 U/L 7-52 [facility] Albumin [Mass/volume] in Ser um or Plasma by Bromocresol green (BCG) dye binding methoOrdered By: Rosemary Cartagena on 09-02-2023 Albumin BCG dye [Mass/Vol] 4.0 g/dL 3.5-5.7 [facility] Alkaline phosphatase [Enzyma tic activity/volume] in Serum or PlasmaOrdered By: Rosemary Cartagena on 09-02-2023 ALP [Catalytic activity/Vol] 74 U/L 34-104 [facility] Aspartate aminotransferase [ Enzymatic activity/volume] in Serum or PlasmaOrdered By: Rosemary Cartagena on 09-02-2023 AST [Catalytic activity/Vol] 17 U/L 13-39 [facility] Bilirubin.total [Mass/volume ] in Serum or PlasmaOrdered By: Rosemary Cartagena on 09-02-2023 Bilirubin [Mass/Vol] 0.6 mg/dL 0.3-1.0 [facility] Calcium [Mass/volume] in Ser um or PlasmaOrdered By: Rosemary Cartagena on 09-02-2023 Calcium [Mass/Vol] 8.9 mg/dL 8.6-10.3 [facility] Carbon dioxide, total [Moles /volume] in Serum or PlasmaOrdered By: Rosemary Cartagena on 09-02-2023 CO2 [Moles/Vol] 30.5 mmol/L 21.0-31.0 [facility] Chloride [Moles/volume] in S ric or PlasmaOrdered By: Rosemary Cartagena on 09-02-2023 Chloride [Moles/Vol] 106 mmol/L 98-107 [facility] Cholesterol [Mass/volume] in Serum or PlasmaOrdered By: Rosemary Cartagena on 09-02-2023 Cholesterol [Mass/Vol] 139 mg/dL 140-200 [facility] Comment on above: Chol less than 200 m g/dl low riskChol 201-239 mg/dl borderline riskChol 240 mg/dl and greater high risk Cholesterol in LDL Calc [Mas s/Vol]Ordered By: Rosemary Cartagena on 09-02-2023 Cholesterol in LDL [Mass/Vol] 56 mg/dL 0-100 [facility] Comment on above: LDL ATP III CLASSIFI CATIONLDL less than 100 mg/dL OptimalLDL 100-129 mg/dL Near or above optimalLDL 130-159 mg/dL Borderline highLDL 160-189 mg/dL HighLDL greater than 189 mg/dL Very high Cholesterol in VLDL Calc [Ma ss/Vol]Ordered By: Rosemary Cartagena on 09-02-2023 Cholesterol in VLDL [Mass/Vol] 51 mg/dL [facility] Creatinine [Mass/volume] in Serum or PlasmaOrdered By: Rosemary Cartagena on 09-02-2023 Creatinine [Mass/Vol] 1.10 mg/dL 0.70-1.30 [facility] Globulin Calc (S) [Mass/Vol] Ordered By: Rosemary Cartagena on 09-02-2023 Globulin (S) [Mass/Vol] 2.4 g/dL [facility] Glucose [Mass/volume] in Ser um or PlasmaOrdered By: Rosemary Cartagena on 09-02-2023 Glucose [Mass/Vol] 126 mg/dL 70-100 [facility] Comment on above: ADA recommended refe [...] from glycated hemoglobin (Bld) [Mass/Vol] 148 mg/dL [facility] Hemoglobin A1c percentageOrd ered By: Rosemary Cartagena on 09-02-2023 HbA1c (Bld) [Mass fraction] 6.8 % 4.3-5.6 [facility] Comment on above: Increased risk for d iabetes: 5.7 - 6.4diabetes: >6.4glycemic control for adults with diabetes: <7.0 Natriuretic peptide B [Mass/ Vol]Ordered By: Rosemary Cartagena on 09-02-2023 Natriuretic peptide B (Bld) [Mass/Vol] 229.0 pg/mL 5-100 [facility] No Panel InformationOrdered By: Rosemary Cartagena on 09-02-2023 Estimated GFR (CKD-EPI) > 60.0 mL/Min [facility] Creatinine Clearance (Chem N/A [facility] Potassium [Moles/volume] in Serum or PlasmaOrdered By: Rosemary Cartagena on 09-02-2023 Potassium [Moles/Vol] 3.9 mmol/L 3.5-5.1 [facility] Protein [Mass/volume] in Ser um or PlasmaOrdered By: Rosemary Cartagena on 09-02-2023 Protein [Mass/Vol] 6.4 g/dL 6.4-8.9 [facility] Serum or plasma albumin/glob ulin mass ratioOrdered By: Rosemary Cartagena on 09-02-2023 Albumin/Globulin [Mass ratio] 1.7 {ratio} [facility] Serum or plasma anion gap de terminationOrdered By: Rosemary Cartagena on 09-02-2023 Anion gap [Moles/Vol] TNP [facility] Comment on above: Test not performed Serum or plasma high density lipoprotein (HDL) cholesterol measurementOrdered By: Rosemary Cartagena on 09-02-2023 Cholesterol in HDL [Mass/Vol] 31 mg/dL 23-92 [facility] Comment on above: HDL CHOL ATP-III CLA SSIFICATION Cardiovascular RiskHDL > or equal to 60 mg/dL LOWHDL < 40 mg/dL HIGH Serum or plasma total choles terol/high density lipoprotein (HDL) cholesterol mass ratOrdered By: Rosemary Cartagena on 09-02-2023 Cholesterol.total/Chol esterol in HDL [Mass ratio] 4.5 {ratio} <5.0 [facility] Sodium [Moles/volume] in Ser um or PlasmaOrdered By: Rosemary Cartagena on 09-02-2023 Sodium [Moles/Vol] 141 mmol/L 136-145 [facility] TRANSTHORACIC ECHO (TTE) COM PLETEon 09-02-2023 TRANSTHORACIC ECHO (TTE) COMPLETE [facility] [address], [address], [place] [address] TRANSTHORACIC ECHOCARDIOGRAM REPORT Patient Name: YOANA IBRAHIM Reading Physician: [id number] Syed Flores MD, [facility] Study Date: 09/02/2023 Ordering Provider: [id number] ROSEMARY CARTAGENA MRN/PID: [id number] Fellow: Nurse: Date 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 Margarine: Sobeida Juarez RDCS, RVT Gender: M Additional Staff: Height: 167.64 cm Admit Date: Weight: 87.09 kg Admission Status: BSA: 1.97 m2 Department Location: [facility] Blood Pressure: 112 /74 mmHg Study Type: TRANSTHORACIC ECHO (TTE) COMPLETE Diagnosis/ICD: Abnormal electrocardiogram [ECG] [EKG]-R94.31; Sleep apnea, unspecified-G47.30; Permanent AFib-I48.21; Shortness of breath-R06.02 Indication: Sick Sinus Syndrome, Pacemaker/AICD, CHF, Diabetes, HTN, Hyperlipidemia, CABG, Former Smoker, Ischemic Cardiomyopathy, TIA-2017, History of Left UE DVT, Prostate Cancer CPT Codes: Echo Complete w Full Doppler-24729 Study Detail: The following Echo studies were [...] 0.6 m/s (0.6-0.9m/s) PV Max P.3 mmHg [id number] Syed Flores MD, FACC Electronically signed on 09/02/2023 at 5:11:[address] [facility] Thyrotropin [Units/volume] i n Serum or PlasmaOrdered By: Rosemary Cartagena on 09-02-2023 TSH Qn 4.72 m[IU]/L 0.45-5.33 [facility] Triglyceride [Mass/volume] i n Serum or PlasmaOrdered By: Rosemary Cartagena on 09-02-2023 Triglyceride [Mass/Vol] 259 mg/dL 0-149 [facility] Comment on above: TRIG ATP III CLASSIF ICATIONTRIG less than 150 mg/dL NormalTRIG 150-199 mg/dL Borderline highTRIG 200-500 mg/dL High TRIG greater than 500 mg/dL Very highStandard traceable to the Center for Disease Conrtrol and Prevention (CDC) test method. Triiodothyronine (T3) [Mass/ volume] in Serum or PlasmaOrdered By: Rosemary Cartagena on 09-02-2023 T3 [Mass/Vol] 0.70 ng/mL 0.87-1.78 [facility] US Heart TransthoracicOrdere d By: Syed Flores on 09-02-2023 Aortic Valve Area by [employer] Peak Velocity 2.14 [facility] Work Phone: Aortic Valve Area by [employer] of VTI 2.09 [facility] Work Phone: [phone] AV mn grad 3.0 [facility] Work Phone: [phone] AV pk grad 7.3 [facility] Work Phone: [phone] AV pk diamond 1.35 [facility] Work Phone: [phone] LV A4C EF 14.5 [facility] Work Phone: [phone] LVIDd 5.30 [facility] Work Phone: [phone] LVOT diam 2.10 [facility] Work Phone: [phone] RVSP 38.8 [facility] Work Phone: [phone] [facility] Work Phone: [phone] Heart [facility] [address], [address] [place] [address] TRANSTHORACIC ECHOCARDIOGRAM REPORT Patient Name: YOANA PATRICEBITA [place] Physician: [id number] Syed Flores MD, [facility] Study Date: 09/02/2023 Ordering Provider: [id number] ROSEMARY CARTAGENA MRN/PID: [id number] Fellow: Nurse: Date 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 Margarine: Sobeida Juarez RDCS, RVT Gender: M Additional Staff: Height: 167.64 cm Admit Date: Weight: 87.09 kg Admission Status: BSA: 1.97 m2 Department Location: [facility] Blood Pressure: 112 /74 mmHg Study Type: TRANSTHORACIC ECHO (TTE) COMPLETE Diagnosis/ICD: Abnormal electrocardiogram [ECG] [EKG]-R94.31; Sleep apnea, unspecified-G47.30; Permanent AFib-I48.21; Shortness of breath-R06.02 Indication: Sick Sinus Syndrome, Pacemaker/AICD, CHF, Diabetes, HTN, Hyperlipidemia, CABG, Former Smoker, Ischemic Cardiomyopathy, TIA-2017, History of Left UE DVT, Prostate Cancer CPT Codes: Echo Complete w Full Doppler-[id number] Study Detail: The following Echo studies were [...] included)... 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 Margarine: Sobeida Juarez RDCS, RVT Gender: M Additional Staff: Height: 167.64 cm Admit Date: Weight: 87.09 kg Admission Status: BSA: 1.97 m2 Department Location: [facility] Blood Pressure: 112 /74 mmHg Study Type: TRANSTHORACIC ECHO (TTE) COMPLETE Diagnosis/ICD: Abnormal electrocardiogram [ECG] [EKG]-R94.31; Sleep apnea, unspecified-G47.30; Permanent AFib-I48.21; Shortness of breath-R06.02 Indication: Sick Sinus Syndrome, Pacemaker/AICD, CHF, Diabetes, HTN, Hyperlipidemia, CABG, Former Smoker, Ischemic Cardiomyopathy, TIA-2017, History of Left UE DVT, Prostate Cancer CPT Codes: Echo Complete w Full Doppler-15234 Study Detail: The following Echo studies were [...] PV Max PG: (more content not included)... [facility] Work Phone: Urea nitrogen [Mass/volume] in Serum or PlasmaOrdered By: Rosemary Cartagena on 09-02-2023 Urea nitrogen [Mass/Vol] 21 mg/dL 04-06 [facility] ECG 12 Leadon 09-01-2023 Atrial fibrillation. Towards the second half of the EKG patient goes into ventricular paced rhythm. When not paced QRS duration [address]-T abnormality in the inferior leads when paced QRS duration 180 ms. QTc 400 ms [facility] Work Phone: OVA AND PARASITE EXAMINATION on 12-23-2021 Ova + Parasite Exam Final report Normal [facility] Comment on above: Result Comment: Thes e results were obtained using wet preparation(s) and trichrome stained smear. This test does not include testing for Cryptosporidium parvum, Cyclospora, or Microsporidia. Performed By: #### O VAPE #### [facility] [address] [place] [address] Dr. Mely Avery Result [address] [facility] Comment on above: Result Comment: No o va, cysts, or parasites seen. . One negative specimen does not rule out the possibility of a parasitic infection. Performed By: #### O VAPE #### [facility] [address] [place] [address] [address] Mely Avery STOOL CULTUREon 12-20-2021 Campylobacter Culture Final report Normal [facility] Comment on above: Performed By: #### C XSTOOL #### [facility] [address] [place] [address] [address] Mely Avery E coli Shiga Toxin EIA Negative Normal Negative [facility] Comment on above: Performed By: #### C XSTOOL #### [facility] [address] [place] [address] [address] Mely Avery Result [address] [facility] Comment on above: Result Comment: No S almonella or Shigella recovered. Performed By: #### C XSTOOL #### [facility] [address] [place] [address] [address] Mely Avery Result Comment: No C ampylobacter species isolated. Salmonella/Shigella Screen Final report Normal [facility] Comment on above: Performed By: #### C XSTOOL #### [facility] [address] [place] [address] [address] Mely Avery C. DIFF PCRon 12-16-2021 C. DIFFICILE PCR Negative Normal NEGATIVE [facility] Comment on above: Performed By: #### C DIFPOC #### [facility] [address] [place] [address] [address] Mely Avery XR lumbar spine 6V w bending on 07-25-2021 XR lumbar spine 6V w bending [facility] [employer] [facility] [employer] Other XR lumbar spine 6V w bending [facility] [employer] Other XR lumbar spine 6V w bending [address] [place] [address] [email or web address] Other XR lumbar spine 6[place] [address] [email or web address] Other XR lumbar spine 6V w bending XRay Report [email or web address] Other XR lumbar spine 6V w bending Signed [email or web address] Other XR lumbar spine 6V w bending Patient: Yoana Ibrahim MR#: [id number] [email or web address] Other XR lumbar spine 6V w bending 9840 [email or web address] Other XR lumbar spine 6V w bending : 1940 Acct:[id number] [email or web address] Other XR lumbar spine 6V w bending Age/Sex: 80 / M ADM Date: 07/25/21 [email or web address] Other XR lumbar spine 6V w bending Loc: [place] Room: Type: [facility] [email or web address] Other XR lumbar spine 6V w bending Attending Dr: Osvaldo Maciel MD [email or web address] Other XR lumbar spine 6V w bending Ordering Provider: Osvaldo Maciel MD [email or web address] Other XR lumbar spine 6V w bending Date of Service: 07/25/21 [email or web address] Other XR lumbar spine 6V w bending XR/XR lumbar spine 6V w bending: M48.062, M43.16 M51.36 [email or web address] Other XR lumbar spine 6V w bending Copies to: Osvaldo Maciel MD [email or web address] Other XR lumbar spine 6V w bending LUMBAR SPINE WITH FLEXION, EXTENSION AND BENDING VIEWS- 6 views: [email or web address] Other XR lumbar spine 6V w bending CLINICAL HISTORY: Pain at the mid back when bending or standing up straight. No injury. [email or web address] Other XR lumbar spine 6V w bending COMPARISON: CT myelogram 07/01/2021 [email or web address] Other XR lumbar spine 6V w bending AP neutral, right and left bending as well as lateral views in neutral, flexion and extension were [email or web address] Other XR lumbar spine 6V w bending obtained. There is osteopenia. 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 There is minimal ret [email or web address] Other XR lumbar spine 6V w bending rolisthesis of L1 on L2 and L2 on L3. There is approximately 5 mm of anterolisthesis of L4 on L5. [email or web address] Other XR lumbar spine 6V w bending Alignment does not change significantly with flexion or extension. No acute fractures are present. [email or web address] Other XR lumbar spine 6V w bending There is slight disc space narrowing, greatest at L2-3 and the lumbosacral junction. There is [email or web address] Other XR lumbar spine 6V w bending endplate spurring, greater proximally and facet hypertrophy, greater distally. The SI joints show [email or web address] Other XR lumbar spine 6V w bending mild sclerosis. There is a bladder stimulator traversing a sacral foramen on the right. There is [email or web address] Other XR lumbar spine 6V w bending atherosclerotic plaque at the aorta and iliac arteries. [email or web address] Other XR lumbar spine 6V w bending XR/XR lumbar spine 6V w bending [email or web address] Other XR lumbar spine 6V w bending IMPRESSION: [email or web address] Other XR lumbar spine 6V w bending OSTEOPENIA, SCOLIOSIS AND DEGENERATIVE CHANGES, DESCRIBED [email or web address] Other XR lumbar spine 6V w bending Impression dictated by: Basilia Guevara M.D.07/25/2021 4:06 PM [email or web address] Other XR lumbar spine 6V w bending Dictation Location: [place] [address] [email or web address] Other XR lumbar spine 6V w bending Transcribed By: XAVIER 07/25/21 1601 [email or web address] Other XR lumbar spine 6V w bending Dictated By: Basilia Guevara MD 07/25/21 1602 [email or web address] Other XR lumbar spine 6V w bending Signed By: [email or web address] Other XR lumbar spine 6V w bending 07/25/21 1606 [email or web address] Other Basic Metabolic Panelon 10-0 Anion gap [Moles/Vol] 11 mmol/L 9 - 17 mmol/L [place], [place] Bun/Cre Ratio NOT REPORTED [place], [place] Calcium [Mass/Vol] 8.3 mg/dL Low 8.6 - 10. 4 mg/dL [place] Chloride [Moles/Vol] 104 mmol/L 98 - 10 7 mmol/L [place] CO2 [Moles/Vol] 26 mmol/L 20 - 31 mmol/L [place] Creatinine [Mass/Vol] 1.12 mg/dL 0.7 - 1.2 mg/dL [place] GFR >60 >60 mL/min [place], [place] GFR Non- >60 >60 mL/min [place] GFR/1.73 sq M predicted among non-blacks MDRD (S/P/Bld) [Vol rate/Area] [place], [place] Comment on above: Average GFR for 70 o r more years old: 75 mL/min/1.73sq m Chronic Kidney Disease: <60 mL/min/1.73sq m Kidney failure: <15 mL/min/1.73sq m eGFR calculated using average adult body mass. Additional eGFR calculator available at: http://www.[employer]/multiple_crcl_2012.htm GFR/1.73 sq M predicted among non-blacks MDRD (S/P/Bld) [Vol rate/Area] NOT REPORTED [place], [place] Glucose [Mass/Vol] 111 mg/dL High 70 - 99 mg/dL [place] Interpretation and review of laboratory results Abnormal [place] Potassium [Moles/Vol] 4.0 mmol/L 3.7 - 5.3 mmol/L [place] Sodium [Moles/Vol] 141 mmol/L 135 - 144 mmol/L [place] Urea nitrogen [Mass/Vol] 26 mg/dL High 8 - 23 mg/dL [place] Basic Metabolic Profon 06-13 (cont.) Normal [facility] Comment on above: Result Comment: Aver age GFR for 70 or more years old: 75 mL/min/1.73sq m Chronic Kidney Disease: <60 mL/min/1.73sq m Kidney failure: <15 mL/min/1.73sq m eGFR calculated using average adult body mass. Additional eGFR calculator available at: http://www.[employer]/multiple_crcl_2012.htm Performed By: #### C BC, BMP, MG, GLYHGB #### [email or web address] [address] [place] [address]37 Youth Care Specialist: Bradley Richey MD Anion gap [Moles/Vol] 11 mmol/L Normal 9-17 [facility] Comment on above: Performed By: #### C BC, BMP, MG, GLYHGB #### [facility] [address] [place] [address] Youth Care Specialist: Bradley Richey MD Calcium [Mass/Vol] 8.3 mg/dL Low 8.6-10.4 [facility] Comment on above: Performed By: #### C BC, BMP, MG, GLYHGB #### [email or web address] [address] [place] [address]64 Youth Care Specialist: Bradley Richey MD Chloride [Moles/Vol] 104 mmol/L Normal 98-107 [facility] Comment on above: Performed By: #### C BC, BMP, MG, GLYHGB #### [facility] [address] [place] [phone] Youth Care Specialist: Bradley Richey MD CO2 [Moles/Vol] 26 mmol/L Normal 20-31 [facility] Comment on above: Performed By: #### C BC, BMP, MG, GLYHGB #### [facility] [address] [place] [address] [place] [address] Youth Care Specialist: Bradley Richey MD Creatinine [Mass/Vol] 1.12 mg/dL Normal 0.70-1.20 [facility] Comment on above: Performed By: #### C BC, BMP, MG, GLYHGB #### [facility] [address] [place] [address] Youth Care Specialist: Bradley Richey MD GFR, Amer >60 Normal >60 [facility] Comment on above: Performed By: #### C BC, BMP, MG, GLYHGB #### [facility] [address] [place] [address] 32093 Youth Care Specialist: Bradley Richey MD GFR,non Amer >60 Normal >60 [facility] Comment on above: Performed By: #### C BC, BMP, MG, GLYHGB #### [facility] [address] [place] [address] 52568 Youth Care Specialist: Bradley Richey MD Glucose [Mass/Vol] 111 mg/dL High 70-99 [facility] Comment on above: Performed By: #### C BC, BMP, MG, GLYHGB #### [facility] [address] [place] [address]38 Youth Care Specialist: Bradley Richey MD Potassium [Moles/Vol] 4.0 mmol/L Normal 3.7-5.3 [facility] Comment on above: Performed By: #### C BC, BMP, MG, GLYHGB #### [facility] [address] [place] [address] Youth Care Specialist: Bradley Richey MD Sodium [Moles/Vol] 141 mmol/L Normal 135-144 [facility] Comment on above: Performed By: #### C BC, BMP, MG, GLYHGB #### [facility] [address] [place] [address] Youth Care Specialist: Bradley Richey MD Urea nitrogen [Mass/Vol] 26 mg/dL High 8-23 [facility] Comment on above: Performed By: #### C BC, BMP, MG, GLYHGB #### [facility] [address] [place] [address] Youth Care Specialist: Bradley Richey MD BUN/CRE Ratio NOT REPORTED Normal 9-20 [facility] Comment on above: Performed By: #### C BC, BMP, MG, GLYHGB #### [facility] [address] [place] [address] Youth Care Specialist: Bradley Richey MD Staging: NOT REPORTED Normal [facility] Comment on above: Performed By: #### C BC, BMP, MG, GLYHGB #### [facility] [address] [place] [address]22 Youth Care Specialist: Bradley Richey MD CBCon 06-13-2019 Erythrocyte distribution width (RBC) [Ratio] 13.0 % Normal 11.8-14.4 [facility] Comment on above: Performed By: #### C BC, BMP, MG, GLYHGB #### [facility] [address] [place] [address] Youth Care Specialist: Bradley Richey MD Hematocrit (Bld) [Volume fraction] 36.6 % Low 40.7-50.3 [facility] Comment on above: Performed By: #### C BC, BMP, MG, GLYHGB #### [facility] [address] [place] [address] Youth Care Specialist: Bradley Richey MD Hemoglobin (Bld) [Mass/Vol] 11.8 g/dL Low 13.0-17.0 [facility] Comment on above: Performed By: #### C BC, BMP, MG, GLYHGB #### [facility] [address] [place] [address] 10762 Youth Care Specialist: Bradley Richey MD MCH (RBC) [Entitic mass] 33.1 pg Normal 25.2-33.5 [facility] Comment on above: Performed By: #### C BC, BMP, MG, GLYHGB #### [address] [address] Youth Care Specialist: Bradley Richey MD MCHC (RBC) [Mass/Vol] 32.2 g/dL Normal 28.4-34.8 [facility] Comment on above: Performed By: #### C BC, BMP, MG, GLYHGB #### [address] [address] Youth Care Specialist: Bradley Richey MD MCV (RBC) [Entitic vol] 102.5 fL Normal 82.6-102.9 [facility] Comment on above: Performed By: #### C BC, BMP, MG, GLYHGB #### [address] [address] Youth Care Specialist: Bradley Richey MD NRBC Automated 0.0 per 100 WBC Normal 0.0 [facility] Comment on above: Performed By: #### C BC, BMP, MG, GLYHGB #### [address] [address] Youth Care Specialist: Bradley Richey MD Platelet mean volume (Bld) [Entitic vol] 9.8 fL Normal 8.1-13.5 [facility] Comment on above: Performed By: #### C BC, BMP, MG, GLYHGB #### [address] [address] Youth Care Specialist: Bradley Richey MD Platelets (Bld) [#/Vol] 174 10*3/uL Normal 138-453 [facility] Comment on above: Performed By: #### C BC, BMP, MG, GLYHGB #### [address] [address] Youth Care Specialist: Bradley Richey MD RBC (Bld) [#/Vol] 3.57 10*6/uL Low 4.21-5.77 [facility] Comment on above: Performed By: #### C BC, BMP, MG, GLYHGB #### [facility] [address] [place], [place] [phone] Youth Care Specialist: Bradley Richey MD WBC (Bld) [#/Vol] 8.7 10*3/uL Normal 3.5-11.3 [facility] Comment on above: Performed By: #### C BC, BMP, MG, GLYHGB #### [facility] [address] [place], [place] [phone] Youth Care Specialist: Bradley Richey MD Erythrocyte distribution width (RBC) [Ratio] 13.0 % 11.8 - 14.4 % [place] Hematocrit (Bld) [Volume fraction] 36.6 % Low 40.7 - 50.3 % [place] Hemoglobin (Bld) [Mass/Vol] 11.8 g/dL Low 13 - 17 g/dL [place] Interpretation and review of laboratory results Abnormal [place] MCH (RBC) [Entitic mass] 33.1 pg 25.2 - 33.5 pg [place] MCHC (RBC) [Mass/Vol] 32.2 g/dL 28.4 - 34.8 g/dL [place] MCV (RBC) [Entitic vol] 102.5 fL 82.6 - 102.9 fL [place] Platelet mean volume (Bld) [Entitic vol] 9.8 fL 8.1 - 13.5 fL [place] Platelets (Bld) [#/Vol] 174 10*3/uL [place] RBC (Bld) [#/Vol] 3.57 10*6/uL Low 4.21 - 5.77 m/uL [place] WBC (Bld) [#/Vol] 0.0 10*3/uL 0.0 per 100 WBC [place] WBC (Bld) [#/Vol] 8.7 10*3/uL [place] HEMOGLOBIN A1Con 06-13-2019 Glucose [Mass/Vol] 143 mg/dL [place] Comment on above: The ADA and AACC rec ommend providing the estimated average glucose result to permit better patient understanding of their HBA1c result. HbA1c (Bld) [Mass fraction] 6.6 % High 4 - 6 % [place] Interpretation and review of laboratory results Abnormal [place] Hemoglobin A1Con 06-13-2019 HbA1c (Bld) [Mass fraction] 6.6 % High 4.0-6.0 [facility] Comment on above: Performed By: #### C BC, BMP, MG, GLYHGB #### [email or web address] [address] [place] [address] [phone] Youth Care Specialist: Bradley Richey MD HbA1c (Bld) [Mass fraction] 143 mg/dL Normal [facility] Comment on above: Result Comment: The ADA and AACC recommend providing the estimated average glucose result to permit better patient understanding of their HBA1c result. Performed By: #### C BC, BMP, MG, GLYHGB #### [email or web address] [address] [place] [address] [phone] Youth Care Specialist: Bradley Richey MD Magnesiumon 06-13-2019 Magnesium [Mass/Vol] 1.9 mg/dL Normal 1.6-2.6 [facility] Comment on above: Performed By: #### C BC, BMP, MG, GLYHGB #### [email or web address] [address] [place] [address] [phone] Youth Care Specialist: Bradley Richey MD Magnesium [Mass/Vol] 1.9 mg/dL 1.6 - 2 .6 mg/dL [place] POC Glucose Fingerstickon Glucose [Mass/Vol] 209 mg/dL High 75 - 110 mg/dL [place] Interpretation and review of laboratory results Abnormal [place] Glucose [Mass/Vol] 165 mg/dL High 75 - 110 mg/dL [place] Interpretation and review of laboratory results Abnormal [place] XR CHEST (2 VW)on 06-13-2019 XR [...] Abdon Dolan MD 06/13/19 Final result Normal [facility] XR CHEST PORTABLEon 06-13-20 XR CHEST PORTABLE [...] Rosalba Brush DO 06/12/19 Final result Normal [facility] CHLORIDE (POC)on 06-12-2019 Chloride [Moles/Vol] 107 mmol/L 98 - 10 7 mmol/L [place] Creatinine W/GFR Point of Ca reon 06-12-2019 Creatinine [Mass/Vol] 1.02 mg/dL 0.51 - 1.19 mg/dL [place] GFR Non- >60 >60 mL/min [place] GFR/1.73 sq M predicted among non-blacks MDRD (S/P/Bld) [Vol rate/Area] mL/min/{1.73_m2} >60 mL/min [place] GFR/1.73 sq M predicted among non-blacks MDRD (S/P/Bld) [Vol rate/Area] [place] Comment on above: Average GFR for 70 o r more years old: 75 mL/min/1.73sq m Chronic Kidney Disease: <60 mL/min/1.73sq m Kidney failure: <15 mL/min/1.73sq m eGFR calculated using average adult body mass. Additional eGFR calculator available at: http://www.[employer]/multiple_crcl_2012.htm Hemoglobin and hematocrit, b loodon 06-12-2019 Hematocrit (Bld) [Volume fraction] 34 % Low 41 - 53 % [place] Hemoglobin (Bld) [Mass/Vol] 11.5 g/dL Low 13.5 - 17.5 g/dL [place] Otheron 06-12-2019 Interpretation and review of laboratory results Abnormal [place] POC Glucose Fingerstickon Glucose [Mass/Vol] 115 mg/dL High 75 - 110 mg/dL [place] Interpretation and review of laboratory results Abnormal [place] Glucose [Mass/Vol] 112 mg/dL High 75 - 110 mg/dL [place] Interpretation and review of laboratory results Abnormal [place] POCT Glucoseon 06-12-2019 Glucose [Mass/Vol] 120 mg/dL High 74 - 100 mg/dL [place] POTASSIUM (POC)on 06-12-2019 Potassium [Moles/Vol] 4.4 mmol/L 3.5 - 4.5 mmol/L [place] SODIUM (POC)on 06-12-2019 Sodium [Moles/Vol] 144 mmol/L 138 - 146 mmol/L [place] XR CHEST PORTABLEon 06-12-20 19 Left chest pacemaker device in place. No evidence of pneumothorax. [place] EXAMINATION: ONE XRA Y VIEW OF [...] effusion. No free air beneath the diaphragm. [facility] ID Prieto, M[facility]pn Incoming Radiant Results From [employer] - 06/12/2019 10:21 PM EDT EXAMINATION: ONE [...] device in place. No evidence of pneumothorax. [place] XR KNEE RIGHT (3 VIEWS)on XR [...] by:DEEDEE Ariasigned by:Abdon Dolan MD01/17/18inal result Normal [facility] Vital Signs Date Time Vital Sign Value Performing Clinician Facility 01-31-2025 14:36-0400 Body height 166.4 cm Viky OLSEN Work Phone: [facility] 01-31-2025 14:36-0400 Body mass index (BMI) [Ratio] 28.68 kg/m2 Viky OLSEN Work Phone: [facility] 01-31-2025 14:36-0400 Body weight 79.38 kg Viky Lowe PA Work Phone: [facility] 01-31-2025 14:36-0400 Diastolic blood pressure 62 mm[Hg] Viky Lowe PA Work Phone: [facility] 01-31-2025 14:36-0400 Heart rate 64 /min Viky Lowe PA Work Phone: [facility] 01-31-2025 14:36-0400 SaO2% (BldA) [Mass fraction] 95 % Viky Lowe PA Work Phone: [facility] 01-31-2025 14:36-0400 Systolic blood pressure 118 mm[Hg] Viky Lowe PA Work Phone: [facility] 12-04-2024 14:21-0400 Body height 165.1 cm Viky Lowe PA Work Phone: [facility] 12-04-2024 14:21-0400 Body mass index (BMI) [Ratio] 29.62 kg/m2 Viky Lowe PA Work Phone: [facility] 12-04-2024 14:21-0400 Body weight 80.74 kg Viky Lowe PA Work Phone: [facility] 12-04-2024 14:21-0400 Diastolic blood pressure 60 mm[Hg] Viky Lowe PA Work Phone: [facility] 12-04-2024 14:21-0400 Systolic blood pressure 120 mm[Hg] Viky Lowe PA Work Phone: [facility] 10-27-2024 15:12-0500 Body height 165.1 cm Rosemary Cartagena MD Work Phone: [facility] 10-27-2024 15:12-0500 Body mass index (BMI) [Ratio] 30.39 kg/m2 Rosemary Cartagena MD Work Phone: [facility] 10-27-2024 15:12-0500 Body weight 82.83 kg Rosemary Cartagena MD Work Phone: [facility] 10-27-2024 15:12-0500 Diastolic blood pressure 64 mm[Hg] Rosemary Cartagena MD Work Phone: [facility] 10-27-2024 15:12-0500 Heart rate 64 /min Rosemary Cartagena MD Work Phone: [facility] 10-27-2024 15:12-0500 Systolic blood pressure 116 mm[Hg] Rosemary Cartagena MD Work Phone: [facility] 10-21-2024 11:32-0500 Body temperature 97.7 [degF] Fabiano Pickering MD Work Phone: [facility] 10-21-2024 11:32-0500 Diastolic blood pressure 49 mm[Hg] Fabiano Pickering MD Work Phone: [facility] 10-21-2024 11:32-0500 Heart rate 63 /min Fabiano Pickering MD Work Phone: [facility] 10-21-2024 11:32-0500 Respiratory rate 16 /min Fabiano Pickering MD Work Phone: [facility] 10-21-2024 11:32-0500 SaO2% (BldA) [Mass fraction] 94 % Fabiano Pickering MD Work Phone: [facility] 10-21-2024 11:32-0500 Systolic blood pressure 134 mm[Hg] Fabiano Pickering MD Work Phone: [facility] 10-21-2024 05:00-0500 Body mass index (BMI) [Ratio] 29.74 kg/m2 Fabiano Pickering MD Work Phone: [facility] 10-21-2024 05:00-0500 Body weight 83.57 kg Fabiano Pickering MD Work Phone: [facility] 10-20-2024 21:47-0500 Body height 167.6 cm Fabiano Pickering MD Work Phone: [facility] 09-01-2024 14:21-0500 Body height 165.1 cm Rosemary Cartagena MD Work Phone: [facility] 09-01-2024 14:21-0500 Body mass index (BMI) [Ratio] 30.29 kg/m2 Rosemary Cartagena MD Work Phone: [facility] 09-01-2024 14:21-0500 Body weight 82.56 kg Rosemary Cartagena MD Work Phone: [facility] 09-01-2024 14:21-0500 Diastolic blood pressure 60 mm[Hg] Rosemary Cartagena MD Work Phone: [facility] 09-01-2024 14:21-0500 Heart rate 60 /min Rosemary Cartagena MD Work Phone: [facility] 09-01-2024 14:21-0500 Systolic blood pressure 120 mm[Hg] Rosemary Cartagena MD Work Phone: [facility] 08-24-2024 14:50-0500 Body height 165.1 cm Viky Lowe PA Work Phone: [facility] 08-24-2024 14:50-0500 Diastolic blood pressure 108 mm[Hg] Viky Lowe PA Work Phone: [facility] 08-24-2024 14:50-0500 Heart rate 61 /min Viky Lowe PA Work Phone: [facility] 08-24-2024 14:50-0500 Systolic blood pressure 132 mm[Hg] Viky Lowe PA Work Phone: [facility] 07-27-2024 15:08-0500 Diastolic blood pressure 58 mm[Hg] Rosemary Cartagena MD Work Phone: [facility] 07-27-2024 15:08-0500 Systolic blood pressure 112 mm[Hg] Rosemary Cartagena MD Work Phone: [facility] 07-27-2024 14:30-0500 Body height 167.6 cm Rosemary Cartagena MD Work Phone: [facility] 07-27-2024 14:30-0500 Body mass index (BMI) [Ratio] 28.73 kg/m2 Rosemary Cartagena MD Work Phone: [facility] 07-27-2024 14:30-0500 Body weight 80.74 kg Rosemary Cartagena MD Work Phone: [facility] 07-27-2024 14:30-0500 Heart rate 62 /min Rosemary Cartagena MD Work Phone: [facility] 07-13-2024 14:18-0400 Body height 167.6 cm Viky Lowe PA Work Phone: [facility] 07-13-2024 14:18-0400 Body mass index (BMI) [Ratio] 28.57 kg/m2 Viky Lowe PA Work Phone: [facility] 07-13-2024 14:18-0400 Body weight 80.29 kg Viky Lowe PA Work Phone: [facility] 07-13-2024 14:18-0400 Diastolic blood pressure 60 mm[Hg] Viky Lowe PA Work Phone: [facility] 07-13-2024 14:18-0400 Systolic blood pressure 132 mm[Hg] Viky Lowe PA Work Phone: [facility] 06-13-2024 14:08-0400 Body height 167.6 cm Viky Lowe PA Work Phone: [facility] 06-13-2024 14:08-0400 Body mass index (BMI) [Ratio] 29.38 kg/m2 Viky Lowe PA Work Phone: [facility] 06-13-2024 14:08-0400 Body weight 82.56 kg Viky Lowe PA Work Phone: [facility] 06-13-2024 14:08-0400 Diastolic blood pressure 78 mm[Hg] Viky OLSEN Work Phone: [facility] 06-13-2024 14:08-0400 Systolic blood pressure 142 mm[Hg] Viky Rollins PA Work Phone: [facility] 04-25-2024 13:55-0400 Blood Pressure Location Anabel Orzech [facility] 04-25-2024 13:55-0400 Diastolic blood pressure 56 mm[Hg] Anabel Orzech [facility] 04-25-2024 13:55-0400 Heart rate 63 /min Anabel Orzech [facility] 04-25-2024 13:55-0400 Respiratory rate 18 /min Anabel Orzech [facility] 04-25-2024 13:55-0400 Systolic blood pressure 110 mm[Hg] Anabel Orzech [facility] 04-24-2024 13:45-0400 Body height 167.6 cm Rosemary Cartagena MD Work Phone: [facility] 04-24-2024 13:45-0400 Body mass index (BMI) [Ratio] 29.96 kg/m2 Rosemary Cartagena MD Work Phone: [facility] 04-24-2024 13:45-0400 Body weight 84.19 kg Rosemary Cartagena MD Work Phone: [facility] 04-24-2024 13:45-0400 Diastolic blood pressure 62 mm[Hg] Rosemary Cartagena MD Work Phone: [facility] 04-24-2024 13:45-0400 Heart rate 62 /min Rosemary Cartagena MD Work Phone: [facility] 04-24-2024 13:45-0400 Systolic blood pressure 104 mm[Hg] Rosemary Cartagena MD Work Phone: [facility] 04-03-2024 11:19-040 Body height 167.64 cm DO Shanique Anderson Work Phone: [facility] 04-03-2024 11:19-040 Body mass index (BMI) [Ratio] 29.3 kg/m2 DO Shanique Anderson Work Phone: [facility] 04-03-2024 [id number] Body weight 82.55 kg DO Shanique Anderson Work Phone: [facility] 04-03-2024 [id number] Diastolic blood pressure 42 mm[Hg] DO Shanique Anderson Work Phone: [facility] 04-03-2024 11:[id number] Heart rate 66 /min DO Shanique Anderson Work Phone: [facility] 04-03-2024 11:19-040 Systolic blood pressure 93 mm[Hg] DO Shanique Anderson Work Phone: [facility] 12-22-2023 14:28-0400 Body height 167.6 cm Saira Heart [employer] Work Phone: [facility] 12-22-2023 14:28-0400 Body mass index (BMI) [Ratio] 31.47 kg/m2 Saira Heart [employer] Work Phone: [facility] 12-22-2023 14:28-040 Body weight 88.45 kg Saira Heart [employer]PER[employer] Work Phone: [facility] 12-22-2023 14:28-0400 Diastolic blood pressure 50 mm[Hg] Saira Heart [employer]PER[employer] Work Phone: [facility] 12-22-2023 14:28-0400 Heart rate 60 /min Saira Heart [employer] Work Phone: [facility] 12-22-2023 14:28-0400 Systolic blood pressure 120 mm[Hg] Saira Heart [employer] SUPER[employer] Work Phone: [facility] 12-06-2023 15:09-0400 Body height 167.6 cm Saira Heart [employer]PER[employer] Work Phone: [facility] 12-06-2023 15:09-0400 Body mass index (BMI) [Ratio] 29.86 kg/m2 Saira Heart [employer]PER[employer] Work Phone: [facility] 12-06-2023 15:09-0400 Body weight 83.92 kg Saira Heart [employer]PER[employer] Work Phone: [facility] 12-06-2023 15:09-0400 Diastolic blood pressure 64 mm[Hg] Saira Heart [employer]PER[employer] Work Phone: [facility] 12-06-2023 15:09-0400 Heart rate 60 /min Saira Heart [employer] Work Phone: [facility] 12-06-2023 15:09-0400 Systolic blood pressure 112 mm[Hg] Saira Heart [employer]PER[employer] Work Phone: [facility] 10-25-2023 15:04-0500 Body height 167.6 cm Rosemary Cartagena MD Work Phone: [facility] 10-25-2023 15:04-0500 Body mass index (BMI) [Ratio] 30.67 kg/m2 Rosemary Cartagena MD Work Phone: [facility] 10-25-2023 15:04-0500 Body weight 86.18 kg Rosemary Cartagena MD Work Phone: [facility] 10-25-2023 15:04-0500 Diastolic blood pressure 62 mm[Hg] Rosemary Cartagena MD Work Phone: [facility] 10-25-2023 15:04-0500 Heart rate 64 /min Rosemary Cartagena MD Work Phone: [facility] 10-25-2023 15:04-0500 Systolic blood pressure 118 mm[Hg] Rosemary Cartagena MD Work Phone: [facility] 09-02-2023 13:25-0500 Body height 167.[address] 09-02-2023 13:25-0500 Body mass index (BMI) [Ratio] 30.99 kg/m2 [address] 09-02-2023 13:25-0500 Body weight 87.[address] 09-02-2023 13:25-0500 Diastolic blood pressure 74 mm[Hg] [address] 09-02-2023 13:25-0500 Systolic blood pressure 112 mm[Hg] [address] 08-30-2023 11:14-0500 Diastolic blood pressure 80 mm[Hg] Rosemary Cartagena MD Work Phone: [facility] 08-30-2023 11:14-0500 Heart rate 67 /min Rosemary Cartagena MD Work Phone: [facility] 08-30-2023 11:14-0500 Systolic blood pressure 110 mm[Hg] Rosemary Cartagena MD Work Phone: [facility] 08-30-2023 11:13-0500 Body height 167.6 cm Rosemary Cartagena MD Work Phone: [facility] 08-30-2023 11:13-0500 Body mass index (BMI) [Ratio] 30.99 kg/m2 Rosemary Cartagena MD Work Phone: [facility] 08-30-2023 11:13-0500 Body weight 87.09 kg Rosemary Cartagena MD Work Phone: [facility] 04-01-2023 14:00-0400 Body height 167.64 cm Alexei Van Other [email or web address] Other 04-01-2023 14:00-0400 Body mass index (BMI) [Ratio] 28.73 kg/m2 Alexei Van Other [email or web address] Other 04-01-2023 14:00-0400 Body weight 80.74 kg Alexei Van Other [email or web address] Other 04-01-2023 14:00-0400 Diastolic blood pressure 74 mm[Hg] Alexei Van Other [email or web address] Other 04-01-2023 14:00-0400 Systolic blood pressure 140 mm[Hg] Alexei Van Other [email or web address] Other 03-11-2022 16:00-0400 Body height 167.64 cm Alexei Van Other [email or web address] Other 03-11-2022 16:00-0400 Body mass index (BMI) [Ratio] 29.05 kg/m2 Alexei Van Other [email or web address] Other 03-11-2022 16:00-0400 Body weight 81.65 kg Alexei Van Other [email or web address] Other 09-02-2021 15:40-0500 Body height 167.64 cm Osvaldo Maciel Other [email or web address] Other 09-02-2021 15:40-0500 Body mass index (BMI) [Ratio] 32.6 kg/m2 Osvaldo Maciel Other [email or web address] Other 09-02-2021 15:40-0500 Body weight 91.63 kg Osvaldo Maciel Other [email or web address] Other 08-25-2021 15:30-0500 Body height 167.64 cm Abdon Jackman Other [email or web address] Other 08-25-2021 15:30-0500 Body mass index (BMI) [Ratio] 32.6 kg/m2 Abdon Jackman Other [email or web address] Other 08-25-2021 15:30-0500 Body temperature 98.1 [degF] Abdon Jackman Other [email or web address] Other 08-25-2021 15:30-0500 Body weight 91.63 kg Abdon Jackman Other [email or web address] Other 08-25-2021 15:30-0500 Diastolic blood pressure 68 mm[Hg] Abdon Jackman Other [email or web address] Other 08-25-2021 15:30-0500 SaO2% (BldA) [Mass fraction] 98 % Abdon Jackman Other [email or web address] Other 08-25-2021 15:30-0500 Systolic blood pressure 136 mm[Hg] Abdon Jackman Other [email or web address] Other 07-24-2021 14:20-0500 Body height 167.64 cm Osvaldo Maciel Other [email or web address] Other 07-24-2021 14:20-0500 Body mass index (BMI) [Ratio] 32.6 kg/m2 Osvaldo Maciel Other [email or web address] Other 07-24-2021 14:20-0500 Body weight 91.63 kg Osvaldo Maciel Other [email or web address] Other 07-24-2021 14:20-0500 Diastolic blood pressure 75 mm[Hg] Osvaldo Raheem Other [email or web address] Other 07-24-2021 14:20-0500 Systolic blood pressure 134 mm[Hg] Osvaldo Raheem Other [email or web address] Other 07-03-2021 17:15-0400 Body height 167.64 cm Ryder Pollack Other [email or web address] Other 07-03-2021 17:15-0400 Body mass index (BMI) [Ratio] 31.95 kg/m2 Ryder Pollack Other [email or web address] Other 07-03-2021 17:15-0400 Body weight 89.81 kg Ryder Pollack Other [email or web address] Other 07-03-2021 17:15-0400 Diastolic blood pressure 60 mm[Hg] Ryder Pollack Other [email or web address] Other 07-03-2021 17:15-0400 SaO2% (BldA) [Mass fraction] 98 % Ryder Pollack Other [email or web address] Other 07-03-2021 17:15-0400 Systolic blood pressure 140 mm[Hg] Ryder Pollack Other [email or web address] Other 06-30-2021 16:45-0400 Body height 167.64 cm Abdon Jackman Other [email or web address] Other 06-30-2021 16:45-0400 Body mass index (BMI) [Ratio] 31.95 kg/m2 Abdon Jackman Other [email or web address] Other 06-30-2021 16:45-0400 Body temperature 97.6 [degF] Abdon Jackman Other [email or web address] Other 06-30-2021 16:45-0400 Body weight 89.81 kg Abdon Jackman Other [email or web address] Other 06-30-2021 16:45-0400 Diastolic blood pressure 68 mm[Hg] Abdon Jackman Other [email or web address] Other 06-30-2021 16:45-0400 SaO2% (BldA) [Mass fraction] 96 % Abdon Jackman Other [email or web address] Other 06-30-2021 16:45-0400 Systolic blood pressure 130 mm[Hg] Abdon Jackman Other [email or web address] Other 06-16-2021 15:00-0400 Body weight 89.9 kg Ryder Pollack Other [email or web address] Other 06-16-2021 15:00-0400 Diastolic blood pressure 76 mm[Hg] Ryder Pollack Other [email or web address] Other 06-16-2021 15:00-0400 Respiratory rate 18 /min Ryder Pollack Other [email or web address] Other 06-16-2021 15:00-0400 SaO2% (BldA) [Mass fraction] 95 % Ryder Pollack Other [email or web address] Other 06-16-2021 15:00-0400 Systolic blood pressure 152 mm[Hg] Ryder Pollack Other [place] [employer] Other 06-13-2019 11:52-0400 Body Temperature 98.4 [degF] [facility] [place] 06-13-2019 11:52-0400 BP Diastolic 55 mm[Hg] [facility] , [place] 06-13-2019 11:52-0400 BP Systolic 123 mm[Hg] [facility] , [place] 06-13-2019 11:52-0400 Pulse (Heart Rate) 63 /min [place], [place] 06-13-2019 11:52-0400 Respiratory Rate 20 /min [facility] 06-13-2019 07:15-0400 BMI (Body Mass Index) 33.06 kg/m2 [place], [place] 06-13-2019 07:15-0400 Body weight 92.9 kg [place], [place] 06-13-2019 07:15-0400 Height 167.6 cm [facility] [place] 06-12-2019 20:20-0400 Pulse Oximetry 93 % [place], [place] Encounters Encounter Date Encounter Type Care Provider Facility Start: 02-02-2025 End: 02-02-2025 ambulatory [facility] Ambulatory Start: 01-31-2025 End: 01-31-2025 ambulatory VIKY ROLLINS Not Available Start: 01-31-2025 End: 01-31-2025 Office outpatient visit 25 minutes Viky OLSEN Work Phone: [facility] Comment on above: Parkinson's disease without dyskinesia or fluctuating manifestations (CMS/HCC) (Primary Dx); Dysphagia, unspecified type; Cerebrovascular accident (CVA), unspecified mechanism (CMS/HCC); HERBIE (obstructive sleep apnea); Radiculopathy, lumbosacral region; Memory loss; Periodic limb movement disorder Start: 01-31-2025 End: 01-31-2025 Bamboo flowsheet Viky Lowe PA Work Phone: [facility] Start: 01-31-2025 End: 01-31-2025 Bamboo flowsheet Viky Lowe PA Work Phone: [facility] Start: 12-20-2024 End: 12-20-2024 Patient encounter procedure Shanique Anderson DO Work Phone: [facility] Start: 12-20-2024 End: 12-20-2024 ambulatory Shanique Anderson DO Work Phone: [facility] Work Phone: Start: 12-04-2024 End: 12-04-2024 Office outpatient visit 25 minutes Viky Rollins PA Work Phone: [facility] Comment on above: Periodic limb moveme nt disorder (Primary Dx); Parkinson's disease without dyskinesia or fluctuating manifestations (CMS/HCC); Cerebrovascular accident (CVA), unspecified mechanism (CMS/HCC); Chronic bilateral low back pain with bilateral sciatica; Memory loss; HERBIE (obstructive sleep apnea) Start: 12-04-2024 End: 12-04-2024 ambulatory VIKY LOWE Not Available Start: 12-04-2024 End: 12-04-2024 Bamboo flowsheet Viky Lowe PA Work Phone: [facility] Start: 12-04-2024 End: 12-04-2024 Bamboo flowsheet Viky Lowe PA Work Phone: [facility] Start: 11-28-2024 End: 11-28-2024 ambulatory Petr PAINTING Facility:[facility] Start: 11-24-2024 ambulatory Anabel X Orzech Facilit y:[facility] Start: 11-22-2024 ambulatory Petr PAINTING Facility :[facility] Start: 11-09-2024 End: 11-09-2024 Refadalberto WILKS Comment on above: Vertigo; Anxiety; Gait difficulty Start: 10-27-2024 End: 10-27-2024 ambulatory [facility] Ambulatory Start: 10-27-2024 End: 10-27-2024 Transitional care manage srvc 7 day discharge Rosemary Cartagena MD Work Phone: [facility] Comment on above: Falls frequently (Pr imary Dx); Hx of coronary artery bypass graft; Congestive heart failure, NYHA class 3, chronic, systolic; Ischemic cardiomyopathy; 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; Presence of Watchman left atrial appendage closure device; Chronic kidney disease, stage 3a (Multi); Other specified diabetes mellitus with other specified complication, unspecified whether keno terminal operator insulin use (Multi); ICD (implantable cardioverter-defibrillator) in place; Parkinson's disease, unspecified whether dyskinesia present, unspecified whether manifestations fluctuate; Obstructive sleep apnea syndrome; 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 Start: 10-21-2024 End: 10-24-2024 [facility] Start: 10-21-2024 End: 10-21-2024 Subsequent hospital visit by physician Maria Ines [id number] Cr Nonv1 Holter/Ecg Resource [facility] Start: 10-20-2024 End: 10-24-2024 ambulatory [facility] Start: 10-20-2024 End: 10-20-2024 Subsequent hospital visit by physician Maria Ines [address] [facility] Comment on above: Atrial fibrillation, unspecified type (Multi) Start: 10-20-2024 End: 10-21-2024 Encounter for other preprocedural examination FABIANO PICKERING [facility] Start: 10-20-2024 End: 10-21-2024 Encounter for preprocedural cardiovascular examination FABIANO PICKERING [facility] Start: 10-20-2024 End: 10-21-2024 Evaluation and management of inpatient Fabiano Pickering MD Work Phone: [facility] [place] 7 Comment on above: Atrial fibrillation, unspecified type (Multi) (Primary Dx); Preoperative examination; Presence of Watchman left atrial appendage closure device; Postoperative examination; Encounter for preprocedural cardiovascular examination; Atrial fibrillation (Multi); Congestive heart failure, NYHA class 3, chronic, systolic; Ischemic cardiomyopathy Start: 10-20-2024 End: 10-21-2024 Patient encounter status Fabiano Pickering MD Work Phone: [facility] Start: 10-20-2024 End: 10-21-2024 Preprocedural examination done Fabiano Pickering MD Work Phone: [facility] Work Phone: Start: 10-03-2024 End: 10-03-2024 ambulatory Petr PAINTING Facility: [facility] Start: 10-03-2024 End: 10-03-2024 Patient encounter procedure Petr Richard CINTHYA [facility] [place] Start: 09-27-2024 End: 09-27-2024 Office outpatient new 45 minutes Fabiano Pickering MD Work Phone: [facility] Comment on above: Persistent atrial fi brillation (Multi) (Primary Dx); ICD (implantable cardioverter-defibrillator) in place; 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 Start: 09-08-2024 End: 09-08-2024 ambulatory Rosemary Cartagena Facility:[facility] Start: 09-01-2024 End: 09-01-2024 ambulatory [facility] Start: 09-01-2024 End: 09-01-2024 Clinisync Result Encounter Viky OLSEN Work Phone: [facility] External [facility] Unsolicited Start: 09-01-2024 End: 09-01-2024 Clinisync Result Encounter Viky OLSEN Work Phone: [facility] Unsolicited Start: 09-01-2024 End: 09-01-2024 Office outpatient visit 25 minutes Rosemary Cartagena MD Work Phone: [facility] Comment on above: 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 (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 Dx); Congestive heart failure, NYHA class 3, chronic, systolic; Nonrheumatic mitral valve regurgitation; Obstructive sleep apnea syndrome; Falls frequently; Hx of coronary artery bypass graft; Body mass index (BMI) of 30.0-30.9 in adult; Permanent atrial fibrillation (Multi); Ischemic cardiomyopathy; 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; 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; Former smoker Start: 08-24-2024 End: 08-24-2024 Office outpatient visit 25 minutes Viky OLSEN Work Phone: [facility] Comment on above: Periodic limb moveme nt disorder (Primary Dx); Gait difficulty; Balance problem; Radiculopathy, lumbosacral region; Memory loss Start: 08-24-2024 End: 08-24-2024 ambulatory VIKY ROLLINS Not Available Start: 08-24-2024 End: 08-24-2024 Bam591wed Viky OLSEN Work Phone: [facility] Start: 08-24-2024 End: 08-24-2024 Bamboo Visonysheet Viky OLSEN Work Phone: [facility] Start: 07-27-2024 End: 07-27-2024 ambulatory [facility] Start: 07-27-2024 End: 07-27-2024 Office outpatient visit 25 minutes Rosemary Cartagena MD Work Phone: [facility] Comment on above: Congestive heart chris lure, NYHA class 3, chronic, systolic; 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; Hx of coronary artery bypass graft; ICD (implantable cardioverter-defibrillator) in place; Ischemic cardiomyopathy; 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; Former smoker; Body mass index (BMI) 28.0-28.9, adult; Permanent atrial fibrillation (Multi); Parkinson's disease, unspecified whether dyskinesia present, unspecified whether manifestations fluctuate; Falls frequently Start: 07-25-2024 End: 07-25-2024 ambulatory Anabel Salinas [facility] Start: 07-25-2024 End: 07-25-2024 Patient encounter procedure Anabel Salinas [facility] Start: 07-13-2024 End: 07-13-2024 Office outpatient visit 25 minutes [facility]y Lowe PA [facility] Comment on above: 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); Gait difficulty; Memory loss; Chronic post-traumatic headache, not intractable; Cerebrovascular accident (CVA), unspecified mechanism (CMS/HCC); Vertigo Start: 07-13-2024 End: 07-13-2024 ambulatory VIKY LOWE Not Available Start: 07-13-2024 End: 07-13-2024 Bamboo flowsheet Viky Lowe PA Work Phone: [facility] Start: 07-13-2024 End: 07-13-2024 Bamboo flowsheet Viky Lowe PA [facility] Start: 06-29-2024 End: 06-29-2024 Patient encounter procedure DO Shanique [place] Work Phone: [facility] [address] Work Phone: Start: 06-29-2024 End: 06-29-2024 ambulatory DO Shanique [place] Work Phone: [facility] Work Phone: Start: 06-15-2024 End: 06-15-2024 ambulatory Petr PAINTING Facility:[facility] Start: 06-15-2024 End: 06-15-2024 Patient encounter procedure Petr PAINTING [facility] Start: 06-13-2024 End: 06-13-2024 ambulatory VIKY LOWE Not Available Start: 06-13-2024 End: 06-13-2024 Bamboo flowsheet Viky Lowe PA Work Phone: [facility] Start: 06-13-2024 End: 06-13-2024 Bamboo flowsheet Viky OLSEN Work Phone: [facility] Start: 06-13-2024 End: 06-13-2024 Office outpatient visit 25 minutes Viky OLSEN Work Phone: [facility] Comment on above: Hyperreflexia (Prima ry Dx); Gait difficulty; Vertigo; Anxiety; Memory loss; Balance problem; Chronic post-traumatic headache, not intractable Start: 06-07-2024 End: 06-07-2024 Patient encounter procedure DO Shanique Anderson Work Phone: [facility] Start: 06-07-2024 End: 06-07-2024 ambulatory DO Shanique Anderson Work Phone: [facility] Work Phone: Start: 06-07-2024 Non-patient / Non-visit DO Vibha Anderson Work Phone: [facility] Start: 05-10-2024 End: 05-10-2024 Patient encounter procedure DO Shanique Anderson Work Phone: [facility] [place] Work Phone: Start: 05-10-2024 End: 05-10-2024 ambulatory DO Shanique Anderson Work Phone: [facility] Work Phone: Start: 04-25-2024 End: 04-25-2024 ambulatory Anabel X Orzech Facility:[facility] Start: 04-25-2024 End: 04-25-2024 Patient encounter procedure Anabel X Orzech 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; Hx of coronary artery bypass graft; 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; [facility] 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; Other specified diabetes mellitus with other specified complication, unspecified whether keno terminal operator insulin use (Multi); Obstructive sleep apnea syndrome; History of stroke; Stage 3b chronic kidney disease (Multi); BMI 29.0-29.9,adult; Former smoker; Nonrheumatic mitral valve regurgitation; Nonrheumatic aortic valve insufficiency Start: 04-24-2024 End: 04-24-2024 ambulatory [facility] Amb[facility] Start: 04-03-2024 End: 04-03-2024 ambulatory DO Shanique Anderson Work Phone: [facility] Work Phone: Start: 04-03-2024 End: 04-03-2024 Patient encounter procedure DO Shanique Anderson Work Phone: [facility] G[facility] Work Phone: Start: 03-06-2024 End: 03-06-2024 Patient encounter procedure DO Shanique Anderson Work Phone: [facility] Start: 03-06-2024 End: 03-06-2024 ambulatory DO Shanique Anderson Work Phone: [facility] Work Phone: Start: 03-01-2024 End: 03-01-2024 ambulatory SADAF TANNER Facility:[facility] Start: 03-01-2024 End: 03-01-2024 Patient encounter procedure SADAF TANNER [facility] [place] Start: 02-23-2024 End: 02-23-2024 ambulatory VIKY ROLLINS Not Available Start: 02-18-2024 End: 02-18-2024 Patient encounter procedure DO Shanique Anderson Work Phone: [facility] [place] Work Phone: Start: 02-18-2024 End: 02-18-2024 ambulatory DO Shanique Anderson Work Phone: [facility] Work Phone: Start: 01-26-2024 ambulatory Petr PAINTING Facility:[facility] Start: 12-22-2023 End: 12-22-2023 Office outpatient visit 15 minutes Saira Heart KIER TENDER-STUDY HALL 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 Work Phone: [facility] Comment on above: BMI 31.0-31.9,adult (Primary Dx); Ischemic cardiomyopathy Start: 12-06-2023 End: 12-06-2023 Office outpatient visit 15 minutes Saira Heart KIER TENDER-STUDY HALL SUPERVISOR Work Phone: [facility] Comment on above: BMI 29.0-29.9,adult (Primary Dx); Ischemic cardiomyopathy; 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 Start: 12-03-2023 End: 12-03-2023 ambulatory DO Shanique Anderson Work Phone: [facility] Work Phone: Start: 12-03-2023 End: 12-03-2023 Patient encounter procedure DO Shanique Anderson Work Phone: [facility] [place] Work Phone: Start: 12-03-2023 End: 12-03-2023 ambulatory DO Shanique Anderson Work Phone: [facility] Work Phone: Start: 12-03-2023 End: 12-03-2023 Patient encounter procedure DO Shanique Anderson Work Phone: [facility] Start: 10-25-2023 End: 10-25-2023 Office outpatient visit 25 minutes Rosemary Cartagena MD Work Phone: [facility] Comment on above: Bipolar disorder, cu rrent episode manic severe with psychotic features (CMS/HCC) (Primary Dx); Permanent atrial fibrillation (CMS/HCC); Ischemic cardiomyopathy; ICD (implantable cardioverter-defibrillator) in place; Hx of coronary artery bypass graft; 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; History of stroke; Other specified diabetes mellitus with other specified complication, unspecified whether keno terminal operator insulin use (CMS/HCC); 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; 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 Start: 09-02-2023 End: 09-02-2023 ambulatory DO Shanique Anderson Work Phone: [facility] Work Phone: Start: 09-02-2023 End: 09-02-2023 Patient encounter procedure DO Shanique Anderson Work Phone: [facility] Start: 08-30-2023 End: 08-30-2023 Office outpatient new 60 minutes Rosemary Cartagena MD Work Phone: [facility] Comment on above: Permanent atrial fib rillation (CMS/HCC) (Primary Dx); ICD (implantable cardioverter-defibrillator) in place; Sleep apnea, unspecified type; Abnormal EKG; Hx of coronary artery bypass graft; Coronary artery disease, unspecified vessel or lesion type, unspecified whether angina present, unspecified whether tunica-biloxi or transplanted heart; [facility] 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; Shortness of breath; History of stroke; Benign prostatic hyperplasia with lower urinary tract symptoms, symptom details unspecified; Ischemic cardiomyopathy; Fatigue, unspecified type; Other specified diabetes mellitus with other specified complication, unspecified whether keno terminal operator insulin use ([facility] Start: 08-12-2023 End: 08-12-2023 ambulatory Alexei Van Other [email or web address] Other Start: 08-12-2023 Telephone encounter Alexei Tejeda [facility] Start: 04-01-2023 End: 04-01-2023 ambulatory Alexei Van Other [email or web address] Other Start: 04-01-2023 Patient encounter procedure Alexei BARROSO [facility] Start: 11-30-2022 End: 11-30-2022 ambulatory DO Shanique Anderson Work Phone: [facility] Work Phone: Start: 11-30-2022 End: 11-30-2022 Patient encounter procedure DO Shanique Anderson Work Phone: [facility] for [facility] Car Start: 08-27-2022 Telephone encounter Alexei Tejeda [facility] Start: 08-27-2022 End: 08-27-2022 ambulatory ALEXEI VAN Facility: Start: 08-25-2022 End: 08-25-2022 ambulatory Alexei Van Other [email or web address] Other Start: 08-25-2022 Telephone encounter Alexei Tejeda [facility] Start: 05-12-2022 End: 05-12-2022 ambulatory Ryder Pollack Other [email or web address] Other Start: 05-12-2022 Telephone encounter Ryder Pollack [employer] Start: 03-11-2022 End: 03-11-2022 ambulatory Alexei Van Other [email or web address] Other Start: 03-11-2022 Patient encounter procedure Alexei Van [facility] Start: 12-25-[address] SHANIQUE ANDERSON Facil ity:[facility] Start: 12-16-2021 End: 12-16-2021 ambulatory ALEXEI VAN Facility:[facility] Start: 12-15-2021 End: 12-15-2021 ambulatory Alexei Van Other [email or web address] Other Start: 12-15-2021 Telephone encounter Alexei Van G [facility] Start: 11-26-2021 End: 11-27-[address] SHANIQUE ANDERSON Facility:[facility] Start: 09-18-2021 End: 10-28-2021 ambulatory ALBIN OLAF Facility:[facility] Start: 09-02-2021 End: 09-02-2021 ambulatory Osvaldo Maciel Other [email or web address] Other Start: 09-02-2021 Office outpatient vi sit 25 minutes Osvaldo Maciel [facility] Start: 08-25-2021 End: 08-25-2021 ambulatory Abdon Jackman Other [email or web address] Other Start: 08-25-2021 Office outpatient vi sit 25 minutes Abdon Jackman [facility] Start: 07-24-2021 End: 07-24-2021 ambulatory Osvaldo Maciel Other [email or web address] Other Start: 07-24-2021 Office outpatient ne w 45 minutes Osvaldo Maciel [facility] Start: 07-03-2021 Office outpatient vi sit 25 minutes Ryder Pollack [facility] Start: 07-01-2021 Telephone encounter Abdon burrell [facility] Start: 06-30-2021 Office outpatient vi sit 40 minutes Abdon Jackman [facility] Start: 06-25-2021 Telephone encounter Glenda Guillen [facility] Start: 06-24-2021 (Procedure) Short Ryder Pollack [facility] Start: 06-17-2021 Telephone encounter Ryder Pollack [facility] Start: 06-16-2021 Office outpatient vi sit 25 minutes Ryder Pollack [facility] Start: 06-16-2021 Telephone encounter Ryder Pollack [facility] Start: 06-12-2019 End: 06-13-2019 Patient encounter procedure MAXIMINOHali VALE [facility] Start: 06-12-2019 End: 06-13-2019 Subsequent hospital visit by physician Raúl Vale Work Phone: [facility] Comment on above: S/P ICD (internal ca rdiac defibrillator) procedure Start: 01-17-2018 End: 01-20-2018 [facility] Procedures Date Procedure Procedure Detail Performing Clinician Start: 10-21-2024 Ecg routine ecg w/least 12 lds trcg only w/o i&r Monse R Landers KIER TENDER-STUDY HALL SUPERVISOR Work Phone: Start: 10-21-2024 Echo transthorc r-t 2d w/wo m-mode rec f-up/lmtd Monse R Landers KIER TENDER-STUDY HALL SUPERVISOR Work Phone: Start: 10-21-2024 Basic metabolic panel calcium total Monse R Landers KIER TENDER-STUDY HALL SUPERVISOR Work Phone: Start: 10-20-2024 End: 10-20-2024 Basic metabolic panel calcium total Monse R Landers KIER TENDER-STUDY HALL SUPERVISOR Work Phone: Start: 10-20-2024 Ecg routine ecg w/least 12 lds trcg only w/o i&r Monse R Landers KIER TENDER-STUDY HALL SUPERVISOR Work Phone: Start: 10-20-2024 Merary-px dev eval & prog sing/dual/multi lead dfb Fabiano Pickering MD Work Phone: Start: 10-20-2024 Echo transthorc r-t 2d w/wo m-mode rec f-up/lmtd Monse Landers KIER TENDER-STUDY HALL SUPERVISOR Work Phone: Start: 10-20-2024 Blood typing serologic rh (d) Monse Landers KIER TENDER-STUDY HALL SUPERVISOR Work Phone: Start: 10-20-2024 VERAB/VERIFY ABORH Monse Holcomboway KIER TENDER-STUDY HALL SUPERVISOR Work Phone: Start: 10-20-2024 Ct heart contrast eval cardiac structure&morph Fabiano Pickering MD Work Phone: Start: 09-01-2024 [employer] Viky OLSEN Work Phone: Start: 07-27-2024 Ecg routine ecg w/least 12 lds w/i&r Rosemary Cartagena MD Work Phone: Start: 06-29-2024 CT cervical spine without contrast DO Shanique [place] Work Phone: Start: 06-29-2024 CT of head without contrast DO Gila Br istol Work Phone: Start: 02-18-2024 CT of head with contrast DO Shanique Brist ol Work Phone: Start: 09-02-2023 TRANSTHORACIC ECHO (TTE) COMPLETE ROSEMARY [...] RAÚL VALE Start: 06-13-2019 PULSE OXIMETRY, CONTINUOUS AMMARCELINOR AKANKSHA Start: 06-13-2019 Glucose blood reagent strip RAÚL VALE Start: 06-13-2019 Radiologic exam chest 2 views RAÚL VALE Start: 06-13-2019 Glucose blood reagent strip Raúl Vale Work Phone: Start: 06-13-2019 DISCHARGE PATIENT RAÚL VALE Start: 06-13-2019 DIET CARDIAC AMBRY VALE Start: 06-13-2019 Glucose blood reagent strip RAÚL VALE Start: 06-13-2019 ICD FORM AMBRY VALE Start: 06-13-2019 Gluc bld gluc mntr dev cleared fda spec home use AMMARCELINOR AKANKSHA Start: 06-13-2019 INITIATE OXYGEN THERAPY PROTOCOL RAÚL VALE Start: 06-13-2019 PULSE OXIMETRY, CONTINUOUS AMMARCELINOR AKANKSHA Start: 06-13-2019 Glucose blood reagent strip Raúl Vale Work Phone: Start: 06-13-2019 ICD FORM Hpf Scanning Start: 06-13-2019 Assay of magnesium RAÚL VALE Start: 06-13-2019 Basic metabolic panel calcium total RAÚL VALE Start: 06-13-2019 Blood count complete automated MAXIMINOR AKANKSHA Start: 06-13-2019 Hemoglobin glycosylated a1c RAÚL VALE Start: 06-13-2019 Gluc bld gluc mntr dev cleared fda spec home use RAÚL VALE Start: 06-13-2019 PULSE OXIMETRY, CONTINUOUS MAXIMINOR AKANKSHA Start: 06-13-2019 Assay of magnesium Clement Song Work Phone: Start: 06-13-2019 Basic metabolic panel calcium total Clement Song Work Phone: Start: 06-13-2019 Blood count complete automated Clement Song Work Phone: Start: 06-13-2019 Hemoglobin glycosylated a1c Clement Song Work Phone: Start: 06-13-2019 ACTIVITY TOLERATED RAÚL VALE Start: 06-13-2019 DAILY WEIGHTS AMBRY VALE Start: 06-13-2019 INTAKE AND OUTPUT RAÚL VALE Start: 06-13-2019 PULSE OXIMETRY, CONTINUOUS AMMARCELINOR AKANKSHA Start: 06-12-2019 Glucose blood reagent strip RAÚL VALE Start: 06-12-2019 Gluc bld gluc mntr dev cleared fda spec home use RAÚL VALE Start: 06-12-2019 PULSE OXIMETRY, CONTINUOUS AMMARCELINOR AKANKSHA Start: 06-12-2019 Glucose blood reagent strip Raúl Vale Work Phone: Start: 06-12-2019 Glucose blood reagent strip RAÚL VALE Start: 06-12-2019 PULSE OXIMETRY, CONTINUOUS MAXIMINOR AKANKSHA Start: 06-12-2019 Radiologic exam chest single [...] RAÚL VALE Start: 06-12-2019 PULSE OXIMETRY, CONTINUOUS MAXIMINOR AKANKSHA Start: 06-12-2019 TELEMETRY MONITORING RAÚL VALE Start: 06-12-2019 VITAL SIGNS RAÚL VALE Start: 06-12-2019 Glucose blood reagent strip Raúl Vale Work Phone: Start: 06-12-2019 PATIENT STATUS (FROM ED OR OR/PROCEDURAL) RAÚL VALE Start: 06-12-2019 TELEMETRY MONITORING RAÚL VALE Start: 06-12-2019 Radiologic exam chest single view Clement Song Work Phone: Start: 06-12-2019 Blood count hemoglobin [...] 01-17-2018 Radiologic examination knee 3 views FABIANO SOKOLOSKI Appendectomy Anabel OrBountysource Cardiac pacemaker, d evice (physical object) Anabel OrBioabsorbable Therapeuticsch Cholecystectomy Anabel Orzec h Colonoscopy Anabel Orzech Extraction of cataract Auror a Orzech History of coronary artery bypass grafting Hx of coronary artery bypass graft Rosemary Cartagena MD Work Phone: History of coronary artery bypass grafting Anabel [employer] History of coronary artery bypass grafting Hx [...] - Tdap) DTaP/Tdap/Td Vaccines (2 - Tdap) [facility] Start: 07-21-2031 DTaP/Tdap/Td Vaccines (4 - Tdap) DTaP/Tdap/Td Vaccines (4 - Tdap) [facility] Start: 10-21-2025 Creatinine measurement Creatinine Level [facility] Start: 10-21-2025 Echocardiography Echocardiogram [facility] Start: 10-21-2025 Potassium measurement Potassium Level [facility] Start: 10-20-2025 Creatinine measurement Creatinine Level [facility] Start: 10-20-2025 Echocardiography Echocardiogram [facility] Start: 10-20-2025 Potassium measurement Potassium Level [facility] Start: 04-27-2025 End: 04-27-2025 Patient encounter procedure 04/27/2025 2:15 PM EDT Office Visit [facility] [address] [facility] [address] [place] [address] Rosemary Cartagena MD [address] [facility] [address] [place], [place] [id number] [facility] Start: 03-02-2025 End: 09-01-2025 Lipid 1996 panel - Serum or Plasma Lipid Panel Lab Routine 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 Expected: 03/02/2025 (Approximate), Expires: 09/01/2025 [facility] Service Area Work Phone: Comment on above: Expected: 03/02/2025 (Approximate), Expi res: 09/01/2025 Start: 02-16-2025 End: 02-16-2025 Patient encounter procedure 02/16/2025 12:45 PM EDT Appointment [address] [place] [address] [facility] Start: 01-31-2025 End: 01-31-2025 Patient encounter procedure 01/31/2025 2:20 PM EDT Office Visit [facility] [address] [place] [phone] Viky Rollins PA [address] [place] [address] [facility] Start: 01-25-2025 End: 01-25-2025 Patient encounter procedure 01/25/2025 1:30 PM EDT Office Visit [address] [place] [phone] Rosemary Cartagena MD [address] [facility] [address] [place] [address] [facility] Start: 12-04-2024 End: 12-04-2024 Patient encounter procedure 12/04/2024 2:20 PM EDT Office Visit [facility] [address] [place] [phone] Viky Rollins PA [address] [place] [address] Arrived [facility] Comment on above: Arrived Start: 11-30-2024 End: 11-30-2024 Patient encounter procedure [facility] [place] [address] Start: 11-06-2024 End: 11-06-2024 Patient encounter procedure 11/06/2024 11:45 AM EST Office Visit [address] [place] [phone] Rosemary Cartagena MD [address] [facility] [address] [place] [address] [facility] Start: 10-27-2024 End: 10-27-2024 Patient encounter procedure 10/27/2024 12:45 PM EST Office Visit [facility] [address] [facility] [address] [place] [address] Rosemary Cartagena MD [address] [facility] [address] [place] [address] [facility] Start: 09-27-2024 End: 09-27-2024 Telemedicine consultation with patient 09/27/2024 8:30 AM EST Telemedicine [facility] [address] [facility] [address] [place] [phone] [place] [address] [place], [place] [phone] [facility] Start: 09-02-2024 Echocardiography Echocardiogram [facility] Start: 09-01-2024 End: 09-01-2025 Comprehensive metabolic 2000 panel - Serum or Plasma Comprehensive Metabolic Panel Lab Routine 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 Expected: 09/01/2024 (Approximate), Expires: 09/01/2025 [facility] Work Phone: Comment on above: Expected: 09/01/2024 (Approximate), Expi res: 09/01/2025 Start: 08-24-2024 End: 08-24-2024 Patient encounter procedure 08/24/2024 3:00 PM EST Office Visit [facility] [address] [facility] [address] [place] [address] Viky Rollins PA [address] [place] [address] [facility] Comment on above: Arrived Start: 08-24-2024 End: 08-24-2025 Iron + transferrin + TIBC Iron + transferrin + TIBC Lab Routine Periodic limb movement disorder Expected: 08/24/2024 (Approximate), Expires: 08/24/2025 [facility] Work Phone: Comment on above: Expected: 08/24/2024 (Approximate), Expi res: 08/24/2025 Start: 07-27-2024 End: 07-27-2025 Basic metabolic 2000 panel - Serum or Plasma Basic Metabolic Panel Lab Routine 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 Expected: 07/27/2024 (Approximate), Expires: 07/27/2025 [facility] Service Area Work Phone: Comment on above: Expected: 07/27/2024 (Approximate), Expi res: 07/27/2025 Start: 07-27-2024 End: 07-27-2024 Patient encounter procedure 07/27/2024 2:00 PM EST Office Visit [facility] [address] [facility] [address] [place] [address] Rosemary Cartagena MD [address] [facility] [address] [place] [address] [facility] Start: 07-13-2024 End: 07-13-2024 Patient encounter procedure [facility] [address] Comment on above: Arrived Start: 06-13-2024 End: 06-13-2025 CT Cervical spine WO contrast CT cervical spine wo IV contrast Imaging Routine Hyperreflexia Balance problem Expected: 06/13/2024 (Approximate), Expires: 06/13/2025 [facility] Comment on above: Expected: 06/13/2024 (Approximate), Expi res: 06/13/2025 Start: 06-13-2024 End: 06-13-2025 CT Head WO contrast CT head wo IV contrast Imaging Routine Gait difficulty Balance problem Expected: 06/13/2024 (Approximate), Expires: 06/13/2025 [facility] Work Phone: Comment on above: Expected: 06/13/2024 (Approximate), Expi res: 06/13/2025 Start: 05-14-2024 COVID-19 Vaccine () COVID-19 Vaccine ( season) [facility] Start: 05-14-2024 COVID-19 Vaccine ( season) COVID-19 Vaccine () [facility] Start: 05-14-2024 COVID-19 Vaccine () COVID-19 Vaccine () [facility] Start: 05-14-2024 Influenza vaccination [facility] Start: 05-08-2024 End: 04-24-2025 Basic metabolic 2000 panel - Serum or Plasma Basic Metabolic Panel Lab Routine Congestive heart failure, NYHA class 3, chronic, systolic (Multi) Expected: 05/08/2024 (Approximate), Expires: 04/24/2025 [facility] Service Area Work Phone: Comment on above: Expected: 05/08/2024 (Approximate), Expi res: 04/24/2025 Start: 05-08-2024 End: 04-24-2025 Natriuretic peptide B [Mass/volume] in Blood B-Type Natriuretic Peptide Lab Routine Congestive heart failure, NYHA class 3, chronic, systolic (Multi) Expected: 05/08/2024 (Approximate), Expires: 04/24/2025 [facility] Work Phone: Comment on above: Expected: 05/08/2024 (Approximate), Expi res: 04/24/2025 Start: 02-28-2024 End: 02-28-2024 Patient encounter procedure 02/28/2024 1:45 PM EDT Office Visit [address] [place] [address] Rosemary Cartagena MD [address] [place] [address] [address] [place], [place] [phone] [facility] Start: 01-31-2024 End: 01-31-2024 Patient encounter procedure 01/31/2024 2:30 PM EDT Office Visit [facility] [address] [place] [address] [address] [place] [phone] Saira Heart, KIER TENDER-STUDY HALL SUPERVISOR [address] [facility], [address] [place] [address] [facility] Start: 01-03-2024 Glaucoma screening Diabetes: Retinopathy Screening [facility] Start: 12-29-2023 End: 12-29-2023 Patient encounter procedure 12/29/2023 1:30 PM EDT Office Visit [address] [place] [address] Saira Heart, KIER TENDER-STUDY HALL SUPERVISOR [facility] [facility], [address] [place] [address] [facility] Start: 12-22-2023 End: 12-21-2024 Basic metabolic 2000 panel - Serum or Plasma Basic Metabolic Panel Lab Routine Ischemic cardiomyopathy Expected: 12/22/2023 (Approximate), Expires: 12/21/2024 [facility] Service Area Work Phone: Comment on above: Expected: 12/22/2023 (Approximate), Expi res: 12/21/2024 Start: 12-03-2023 [facility] Start: 11-24-2023 End: 11-24-2023 Patient encounter procedure 11/24/2023 2:00 PM EDT Office Visit [address] [place] [address] Saira Heart, KIER TENDER-STUDY HALL SUPERVISOR [address] [facility] [address], [address] [place] [address] [facility] Start: 11-08-2023 End: 10-25-2024 Basic metabolic 2000 panel - Serum or Plasma Basic Metabolic Panel Lab Routine Ischemic cardiomyopathy 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 Medication course changed Expected: 11/08/2023 (Approximate), Expires: 10/25/2024 [facility] Service Area Work Phone: Comment on above: Expected: 11/08/2023 (Approximate), Expi res: 10/25/2024 Start: 10-25-2023 End: 10-25-2023 Patient encounter procedure 10/25/2023 2:15 PM EST Office Visit [address] [place] [address] Rosemary Cartagena MD [address] [place] [address] [address] [place] [address] [facility] Start: 09-02-2023 End: 09-02-2023 Patient encounter procedure 09/02/2023 1:30 PM EST Appointment [facility] [address] [facility] [address] [place] [phone] [facility] Start: 08-30-2023 End: 08-30-2024 CBC panel - Blood by Automated count CBC Lab Routine [facility] 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 Expected: 08/30/2023 (Approximate), Expires: 08/30/2024 [facility] Work Phone: Comment on above: Expected: 08/30/2023 (Approximate), Expi res: 08/30/2024 Start: 08-30-2023 End: 08-30-2024 Comprehensive metabolic 2000 panel - Serum or Plasma Comprehensive Metabolic Panel Lab Routine Hx of coronary artery bypass graft Coronary artery disease, unspecified vessel or lesion type, unspecified whether angina present, unspecified whether tunica-biloxi or transplanted heart Sleep apnea, unspecified type Expected: 08/30/2023 (Approximate), Expires: 08/30/2024 [facility] Service Area Work Phone: Comment on above: Expected: 08/30/2023 (Approximate), Expi res: 08/30/2024 Start: 08-30-2023 End: 08-30-2024 Hemoglobin A1c/Hemoglobin.total in Blood Hemoglobin A1C Lab Routine Shortness of breath History of stroke Benign prostatic hyperplasia with lower urinary tract symptoms, symptom details unspecified Ischemic cardiomyopathy Other specified diabetes mellitus with other specified complication, unspecified whether chcf insulin use ([facility]) Expected: 08/30/2023 (Approximate), Expires: 08/30/2024 [facility] Work Phone: Comment on above: Expected: 08/30/2023 (Approximate), Expi res: 08/30/2024 Start: 08-30-2023 End: 08-30-2024 Lipid 1996 panel - Serum or Plasma Lipid Panel Lab Routine 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 Coronary artery disease, unspecified vessel or lesion type, unspecified whether angina present, unspecified whether tunica-biloxi or transplanted heart Sleep apnea, unspecified type 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 Shortness of breath History of stroke Benign prostatic hyperplasia with lower urinary tract symptoms, symptom details unspecified Ischemic cardiomyopathy Expected: 08/30/2023 (Approximate), Expires: 08/30/2024 [facility] Work Phone: Comment on above: Expected: 08/30/2023 (Approximate), Expi res: 08/30/2024 Start: 08-30-2023 End: 08-30-2024 Natriuretic peptide B [Mass/volume] in Blood B-Type Natriuretic Peptide Lab Routine Abnormal EKG Hx of coronary artery bypass graft Coronary artery disease, unspecified vessel or lesion type, unspecified whether angina present, unspecified whether tunica-biloxi or transplanted heart Permanent atrial fibrillation (CMS/HCC) Shortness of breath Ischemic cardiomyopathy Expected: 08/30/2023 (Approximate), Expires: 08/30/2024 [facility] Work Phone: Comment on above: Expected: 08/30/2023 (Approximate), Expi res: 08/30/2024 Start: 08-30-2023 End: 08-30-2024 Thyrotropin [Units/volume] in Serum or Plasma Thyroid Stimulating Hormone Lab Routine Shortness of breath History of stroke Benign prostatic hyperplasia with lower urinary tract symptoms, symptom details unspecified Ischemic cardiomyopathy Fatigue, unspecified type Expected: 08/30/2023 (Approximate), Expires: 08/30/2024 [facility] Work Phone: Comment on above: Expected: 08/30/2023 (Approximate), Expi res: 08/30/2024 Start: 08-30-2023 End: 08-30-2024 Triiodothyronine (T3) [Mass/volume] in Serum or Plasma Triiodothyronine, Total Lab Routine Shortness of breath History of stroke Benign prostatic hyperplasia with lower urinary tract symptoms, symptom details unspecified Ischemic cardiomyopathy Expected: 08/30/2023 (Approximate), Expires: 08/30/2024 [facility] Work Phone: Comment on above: Expected: 08/30/2023 (Approximate), Expi res: 08/30/2024 Start: 08-30-2023 End: 08-30-2025 US Heart Transthoracic Transthoracic Echo (TTE) Complete Echocardiography Routine Abnormal EKG Sleep apnea, unspecified type Permanent atrial fibrillation (CMS/HCC) Shortness of breath Expected: 08/30/2023 (Approximate), Expires: 08/30/2025 [facility] Work Phone: Comment on above: Expected: 08/30/2023 (Approximate), Expi res: 08/30/2025 Start: 07-25-2023 Screening for osteoporosis Bone Density Scan [facility] Start: 05-14-2023 COVID-19 Vaccine ( season) COVID-19 Vaccine ( season) [facility] Start: 05-14-2023 COVID-19 Vaccine ( season) COVID-19 Vaccine ( season) [facility] Start: 05-14-2023 Influenza vaccination Influenza Vaccine (#1) [facility] Start: 01-02-2023 Glaucoma screening Diabetes: Retinopathy Screening [facility] Start: 07-25-2022 Screening for osteoporosis Bone Density Scan [facility] Start: 07-22-2021 DTaP/Tdap/Td Vaccines (1 - Tdap) DTaP/Tdap/Td Vaccines (1 - Tdap) [facility] Start: 06-12-2020 Creatinine monitoring Creatinine monitoring [place], [place] Start: 06-12-2020 Potassium monitoring Potassium monitoring [place], [place] Start: 05-14-2019 Influenza vaccination Flu vaccine (#1) [place], [place] Start: 03-05-2019 Annual Wellness Visit (AWV) Annual Wellness Visit (AWV) [place], [place] Start: 2017 RSV High Risk: (Elderly (60+) or Population) (1 - 1-dose 75+ series) RSV High Risk: (Elderly (60+) or Population) (1 - 1-dose 75+ series) [facility] Start: 12-19-2007 Pneumococcal 65+ years Vaccine (1 of 2 - PCV13) Pneumococcal 65+ years Vaccine (1 of 2 - PCV13) [place], [place] Start: 2002 RSV patients and/or patients aged 60+ years (1 - 1-dose 60+ series) RSV patients and/or patients aged 60+ years (1 - 1-dose 60+ series) [facility] Start: 1992 Shingles Vaccine (1 of 2) Shingles Vaccine (1 of 2) [place], [place] Start: 1992 Zoster Vaccines (1 of 2) Zoster Vaccines (1 of 2) [facility] Start: 1961 DTaP/Tdap/Td vaccine (1 - Tdap) DTaP/Tdap/Td vaccine (1 - Tdap) [place], [place] Start: 1961 Urine screening for protein Diabetes: Urine Protein Screening [facility] Start: 1952 Diabetic foot examination Diabetes: Foot Exam [facility] Start: 1948 Pneumococcal Vaccine: 65+ Years (1 - PCV) Pneumococcal Vaccine: 65+ Years (1 - PCV) [facility] Start: 1948 Pneumococcal Vaccine: 65+ Years (1 of 2 - PCV) Pneumococcal Vaccine: 65+ Years (1 of 2 - PCV) [facility] Start: 06-19-1943 COVID-19 Vaccine (#1) COVID-19 Vaccine (#1) [facility] Start: 1942 Creatinine measurement Creatinine Level [facility] Start: 1942 Hemoglobin A1c measurement Diabetes: Hemoglobin A1C [facility] Start: 1942 Lipid panel Lipid Panel [facility] Start: 1942 Medicare Annual Wellness Visit Medicare Annual Wellness Visit (AWV) [facility] Start: 1942 Potassium measurement Potassium Level [facility] Start: 1942 Urine screening for protein Diabetes: Urine Protein Screening [facility] End: 10-20-2024 Basic metabolic 2000 panel - Serum or Plasma Basic metabolic panel Lab STAT STAT (Lab) for 1 Occurrences starting 10/20/2024 until 10/20/2024 [facility] Area Work Phone: Comment on above: STAT (Lab) for 1 Occurrences starting until 10/20/2024 End: 10-23-2024 Basic metabolic 2000 panel - Serum or Plasma Basic Metabolic Panel Lab Routine Morning draw (Lab) for 3 Occurrences starting 10/21/2024 until 10/23/2024, 1 completed [facility] Work Phone: Comment on above: Morning draw (Lab) for 3 Occurrences sta rting 10/21/2024 until 10/23/2024, 1 completed End: 06-12-2019 Cardiac catheterization Cardiac Catheterization Cardiac Cath Routine One Time for 1 Occurrences starting 06/12/2019 until 06/12/2019 [place], [place] Comment on above: One Time for 1 Occurrences starting 05/16 until 06/12/2019 End: 09-29-2024 Cardiac catheterization study [facility] Work Phone: Comment on above: Once for 1 Occurrences starting 09/29/19 until 09/29/2024 Cardiac Device Check - Surgery Cardiac Device Check - Surgery Implantable Cardiac Device Routine Atrial fibrillation (Multi) 10/20/2024 4:42 PM EST [facility] Work Phone: End: 10-20-2024 CBC W Auto Differential panel - Blood CBC and Auto Differential Lab STAT STAT (Lab) for 1 Occurrences starting 10/20/2024 until 10/20/2024 [facility] Work Phone: Comment on above: STAT (Lab) for 1 Occurrences starting until 10/20/2024 End: 10-23-2024 CBC W Auto Differential panel - Blood CBC and Auto Differential Lab Routine Morning draw (Lab) for 3 Occurrences starting 10/21/2024 until 10/23/2024, 1 completed [facility] Work Phone: Comment on above: Morning draw (Lab) for 3 Occurrences sta rting 10/21/2024 until 10/23/2024, 1 completed End: 10-20-2024 ECG 12 lead [facility] Work Phone: Comment on above: Once for 1 Occurrences starting 10/20/19 until 10/20/2024 As needed until disc ontinued starting 10/20/2024 End: 10-22-2024 ECG 12 lead daily ECG 12 lead daily ECG Routine Daily for 3 Days starting 10/20/2024 until 10/22/2024 [facility] Work Phone: Comment on above: Daily for 3 Days starting 10/20/2024 unt il 10/22/2024 Glucose measurement estimated from glycated hemoglobin [facility] End: 10-20-2024 Incentive spirometry Instruct Incentive spirometry Instruct Respiratory Care Routine Once for 1 Occurrences starting 10/20/2024 until 10/20/2024 [facility] Work Phone: Comment on above: Once for 1 Occurrences starting 10/20/19 until 10/20/2024 Initiate Oxygen Ther apy Protocol Initiate Oxygen Therapy Protocol Respiratory Care Routine Daily until discontinued starting 06/12/2019 [facility] [place] [place] Comment on above: Daily until discontinued starting 2018 End: 10-20-2024 Magnesium [Mass/volume] in Serum or Plasma Magnesium Lab STAT STAT (Lab) for 1 Occurrences starting 10/20/2024 until 10/20/2024 [facility] Work Phone: Comment on above: STAT (Lab) for 1 Occurrences starting until 10/20/2024 End: 10-23-2024 Magnesium [Mass/volume] in Serum or Plasma Magnesium Lab Routine Morning draw (Lab) for 3 Occurrences starting 10/21/2024 until 10/23/2024, 1 completed [facility] Work Phone: Comment on above: Morning draw (Lab) for 3 Occurrences sta rting 10/21/2024 until 10/23/2024, 1 completed End: 10-20-2024 Noninvasive Ventilation Patient to use: At night; Mode: Bipap/Bilevel; Ventilation type: S (Spontaneous); Set Inspiratory Pressure (cm H2O): 11; Expiratory pressure: 7 Noninvasive Ventilation Patient to use: At night; Mode: Bipap/Bilevel; Ventilation type: S (Spontaneous); Set Inspiratory Pressure (cm H2O): 11; Expiratory pressure: 7 Respiratory Care Routine Continuous until discontinued starting 10/20/2024 [facility] Work Phone: Comment on above: Continuous until discontinued starting 0 10/20/2024 [facility] above: 4X Daily (AC & HS) until discontinued st arting 06/12/2019 As Needed until disc ontinued starting 06/12/2019 End: 10-20-2024 Prothrombin time (PT) Protime-INR Lab STAT STAT (Lab) for 1 Occurrences starting 10/20/2024 until 10/20/2024 [facility] Work Phone: Comment on above: STAT (Lab) for 1 Occurrences starting until 10/20/2024 End: 10-23-2024 Prothrombin time (PT) Protime-INR Lab Routine Morning draw (Lab) for 3 Occurrences starting 10/21/2024 until 10/23/2024, 1 completed [facility] Work Phone: Comment on above: Morning draw (Lab) for 3 Occurrences sta rting 10/21/2024 until 10/23/2024, 1 completed Pulse oximetry, continuous Pulse oximetry, continuous Respiratory Care Routine Every 4hr until discontinued starting 06/12/2019 [facility] [employer] Comment on above: Every 4hr until discontinued starting XR CHEST STANDARD (2 VW) XR CHES T STANDARD (2 VW) Imaging Routine 06/13/2019 10:36 AM EDT [facility] Immunizations Immunization Date Immunization Notes Care Provider Fa amada 06-30-2024 influenza virus vacc ine, unspecified formulation Petr PAINTING [facility] 08-13-2023 influenza virus vacc ine, unspecified formulation Rosemary Cartagena MD Work Phone: [facility] Work Phone: 11-27-2023 influenza virus vacc ine, unspecified formulation Petr Orabrush [facility] 08-29-2022 influenza virus vacc ine, unspecified formulation PetrSurDoc [facility] 06-08-2022 influenza virus vacc ine, unspecified formulation Petr Orabrush [facility] 09-01-2021 SARS-CoV-2 (COVID-19 ) mRNA BNT-162b2 vax [employer] [facility] 07-21-2021 diphtheria, tetanus toxoids and acellular pertussis vaccine Osvaldo Maciel Other [facility] 07-21-2021 diphtheria, tetanus toxoids and acellular pertussis vaccine, unspecified formulation DO Shanique Anderson Work Phone: [facility] 06-13-2021 Flu Vaccine - Adult DO Nikkia n [place] Work Phone: [facility] 06-13-2021 influenza, seasonal, injectable DO Shanique Anderson Work Phone: [facility] 03-04-2021 SARS-CoV-2 (COVID-19 ) mRNA BNT-162b2 Glide [employer] [facility] 02-11-2021 SARS-CoV-2 (COVID-19 ) mRNA BNT-162b2 [employer] [facility] 11-03-2020 COVID-19 mRNA, Comir jenna (Pfizer) DO Shanique [place] Work Phone: [facility] Comment on above: Result Comment: 2024: [id number] 10-13-2020 COVID-19 mRNA, Comir jenna (Pfizer) DO Shanique [place] Work Phone: [facility] Comment on above: Result Comment: 2024: [id number] 08-31-2020 influenza virus vacc ine, unspecified formulation Petr Orabrush [facility] 05-27-2020 influenza virus vacc ine, unspecified formulation Petr Orabrush [facility] 06-24-2019 influenza virus vacc ine, unspecified formulation Petr Orabrush [facility] 01-12-2019 zoster vaccine recombinant [employer] [facility] 06-29-2018 pneumococcal polysaccharide vaccine, 23 valent [employer] [facility] 06-24-2018 zoster vaccine recombinant Petr Orabrush [facility] 05-18-2018 influenza virus vacc ine, unspecified formulation [employer] [facility] 06-02-2017 influenza virus vacc ine, unspecified formulation [employer] [facility] 09-07-2016 influenza virus vacc ine, unspecified formulation Petr Orabrush [facility] 06-10-2016 influenza virus vacc ine, unspecified formulation Petr Orabrush [facility] 06-10-2016 pneumococcal polysaccharide vaccine, 23 valent Petr Orabrush [facility] 05-29-2016 pneumococcal polysaccharide vaccine, 23 valent Petr Orabrush [facility] 08-01-2015 influenza virus vacc ine, unspecified formulation Petr Orabrush [facility] 05-29-2015 influenza virus vacc ine, unspecified formulation Petr Orabrush [facility] 05-29-2015 pneumococcal conjuga te vaccine, 13 valent Petr Orabrush [facility] 04-11-2015 pneumococcal conjuga te vaccine, 13 valent Petr Orabrush [facility] 06-10-2014 influenza virus vacc ine, unspecified formulation Petr Orabrush [facility] 06-13-2013 DTaP, unspecified formulation [employer] [facility] 05-24-2013 influenza virus vacc ine, unspecified formulation Petr Orabrush [facility] 07-14-2011 influenza virus vacc ine, unspecified formulation [place] 06-16-2010 pneumococcal polysaccharide vaccine, 23 valent Petr Orabrush [facility] Payers Date Payer Category Payer Unknown [id number] 2023 ([facility]) [id number] 2022 [employer] ( and others) [id number] 2022 For Life (TFL) F OR LIFE [id number] 2018 Medicare MEDICARE MEDICAR E PART A AND B xxxxxxxxxxx 2018-Present [phone] [place] [address] xxxxxxxxxxx [id number] 2016 [employer] ( and others) FOR LIFE MEDICARE SUPP xxxxxxxxx 2016-Present C/O [employer]/ [address] [place] [address] xxxxxxxxx [id number] 2014 Medicare [id number] 2007 Medicare [id number] .[id number] 1959 [employer] ( and others) [id number] 1959 Medicare [id number] 1959 Self-pay [id number] 1942 Unknown [id number] 2.16.840.1.216107.3.579.2 .175 1942 Unknown [id number] 2.16.840.1.420465.3.579.2 .593 1942 Unknown [id number] 2.16.840.1.904295.3.579.2 .593 1942 Unknown [id number] 2.16.840.1.253819.3.579.2 .593 1942 Unknown [id number] 2.16.840.1.966097.3.579.2 .593 1942 Unknown [id number] 2.16.840.1.485376.3.579.2 .593 1942 Unknown [id number] 2.16.840.1.167884.3.579.2 .593 1942 Unknown [id number] 2.840.1.001976.3.579.2 .1246 1942 Unknown [id number] 2.840.1.111966.3.579.2 .1245 1942 Unknown [id number] 2.840.1.670523.3.579.2 .1245 1942 Unknown [id number] 2.16.840.1.586940.3.579.2 .1245 1942 Unknown [id number] 2.840.1.943400.3.579.2 .1245 1942 Unknown [id number] 2.16.840.1.354058.3.579.2 .1245 1942 Unknown [id number] 2.16.840.1.945972.3.579.2 .727 1942 Unknown [id number] 2.16.840.1.820553.3.579.2 .727 1942 Unknown [id number] 2.16.840.1.246723.3.579.2 .727 1942 Unknown [id number] 2.16.840.1.896983.3.579.2 .727 1942 Unknown [id number] 2.16.840.1.856850.3.579.2 .727 1942 Unknown [id number] 2.16.840.1.638723.3.579.2 .727 1942 Unknown [id number] 2.16.840.1.246459.3.579.2 .72 1942 Unknown [id number] 2.16.840.1.675427.3.579.2 .727 1942 Unknown [id number] 2.16.840.1.448627.3.579.2 .1259 1942 Unknown [id number] 2.16.840.1.005059.3.579.2 .1259 1942 Unknown [id number] 2.16840.1.553879.3.579.2 .125 1942 Unknown [id number] 2.16.840.1.901601.3.579.2 .1259 1942 Unknown [id number] 2.16840.1.146658.3.579.2 .1259 1942 Unknown [id number] 2.16.840.1.132129.3.579.2 .1259 1942 Unknown [id number] 2.16840.1.654537.3.579.2 .1244 1942 Unknown [id number] 2.16.840.1.537912.3.579.2 .1244 1942 Unknown [id number] 2.16.840.1.835169.3.579.2 .1244 1942 Unknown [id number] 2.16.840.1.143730.3.579.2 .1244 1942 Unknown [id number] 2.16.840.1.722054.3.579.2 .1244 Unknown [id number] 2.16.840.1.467122.3.579.2 .531 Unknown [id number] 2.16.840.1.076306.3.579.2 .531 Unknown [id number] 2.16.840.1.320357.3.579.2 .531 Unknown [id number] 2.16.840.1.185302.3.579.2 .531 Unknown [id number] 2.16.840.1.468507.3.579.2 .531 Unknown [id number] 2.16.840.1.727205.3.579.2 .531 Unknown [id number] 2.16.840.1.724719.3.579.2 .531 Social History Date Type Detail Facility Start: 06-12-2019 End: 09-05-2021 Tobacco smoking status NHIS Former smoker [facility] Start: 09-13-1958 End: 09-13-2011 History of tobacco use Current smoker [place], [place] Start: 09-13-1958 End: 09-13-2011 History of tobacco use Cigarette Smoker [place] Start: 06-12-2019 End: 01-31-2025 Cigarettes smoked current (pack per day) - Reported [place] Start: 06-12-2019 End: 01-31-2025 Alcohol intake No [facility] Start: 05-06-2015 Tobacco Comment quit x 5 year [place], [place] Start: 1940 Sex Assigned At Not on file [place], [place] Start: 1940 Sex Assigned At Male [facility] Start: 08-30-2023 End: 01-24-2024 Tobacco use and exposure Smokeless tobacco non-user [facility] Work Phone: Start: 08-30-2023 End: 10-20-2024 Alcohol intake Current drinker of alcohol (finding) [facility] Work Phone: Start: 08-30-2023 Alcohol Comment 1 YEARLY [facility] Work Phone: Start: 08-20-2023 End: 10-27-2024 Exposure to SARS-CoV-2 (event) Not sure [facility] Tobacco smoking status No Smokin g Status Entered [facility] Start: 01-24-2024 Tobacco smoking status NHIS Never smoked tobacco [facility] Start: 02-23-2024 End: 01-31-2025 Alcoholic beverage intake Lifetime non-drinker (finding) [facility] Start: 09-17-2024 End: 09-27-2024 Exposure to SARS-CoV-2 (event) Unable to assess [facility] Start: 10-20-2024 Gender identity Identifies as male gender (finding) [facility] Work Phone: Start: 10-20-2024 Sexual orientation Heterosexual (finding) [facility] Work Phone: How often to you hav e a drink containing alcohol? Never [facility] Work Phone: How many standard drinks containing alcohol do you have on a typical day? Patient does not drink [facility] Work Phone: In the past 12 month s, was there a time when you were not able to pay the mortgage or rent on time? No [facility] Work Phone: Start: 10-27-2024 Alcoholic beverage intake Ex-drinker (finding) [facility] Work Phone: Start: 12-21-2024 Sex Male (finding) [facility] Medical Equipment Procedure Code Equipment Code Equipment Origin al Text Equipment Identifier Dates Cement Barium Radiopq Full 40gr [id number] Start: 12-02-2017 Cement Barium Radiopq Full 40gr [id number] Start: 12-02-2017 Impl Knee X3 Patella [id number] Star t: 12-02-2017 Impl Capped Knee Advanced _imp Start: 12-02-2017 Impl Knee Fem Co mp Cmntd Sz 6 _imp Start: 12-02-2017 Impl Knee Patell a Asym X3 [id number] Start: 12-02-2017 Impl Knee Tib Baseplt Prime Sz 6 _imp Start: 12-02-2017 Impl Knee Tib In srt Postr X3 Sz6 11mm [id number] Start: 12-02-2017 Stimulator Neuro Pulse [id number] Start: 04-27-2017 Pacemaker 10196_exp Pacemaker 10196_imp Lt Knee 10197_exp Lt Knee 10197_imp Device, Closure, 35mm Watchman Flx Pro Laac - [id number] Start: 10-20-2024 Goals Date Patient Goal Desired Activity /State Functional Status Date Assessment Result Facility 07-25-2024 Functional Status N/A [facility] 06-15-2024 Functional Status N/A [facility] 04-25-2024 Functional Status N/A [facility] Clinical Notes 06-16-2021 to 01-31-2025 RAÚL Yarbrough - 01/31/2025 2:20 PM EDTTelephone Encounter - James Garcia MA - 11/09/2024 10:56 AM ESTTelephone Encounter - James Garcia MA - 11/09/2024 10:56 AM ESTPatient Instructions Note Date & Type Note Facility 01-31-2025 History of Present illness Narrative Images from the original note were not included. Subjective Yoana Ibrahim is a 84 y.o. year old male [...] dizziness and light-headedness. Negative for tremors, seizures, syncope, facial asymmetry, speech difficulty, weakness, numbness and headaches. Psychiatric/Behavioral: Positive for confusion. Negative for hallucinations and sleep disturbance. Objective Visit Vitals BP 118/62 Pulse 64 Ht 5' 5.5 Wt 175 lb SpO2 95% BMI 28.68 kg/m Smoking Status Never BSA 1.92 m Heart-RRR Neurological Exam Mental Status Awake, alert and oriented to person, place and time. Oriented to person, place, time and situation. Speech is normal. 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 RLE Strength illopsoas, quadriceps, tibialis anterior, and gastrocnemius strength 5/5. LLE Strength illopsoas, quadriceps, tibialis anterior, and gastrocnemius strength 5/5. Tone Normal tone x4 extremities. Reflexes: RUE biceps reflex 2, LUE biceps reflex 2, RLE knee reflex 1, LLE knee reflex 1, Assessment and Plan Cerebrovascular accident (CVA), unspecified mechanism ([facility]/HCC) Patient with history of stroke which likely [...] Patient with history of stroke and [place] exposure contributing to PTSD. He also has [...] as he was tired of placing the patch. Patient follows with Dr. Gaona. Memory loss persists. [...] diabetic and was also exposed to [place] per his 's report. He experienced worsening bradykinesia with Sinemet lowering. He presented to [facility] 09/02/21 for increase in lower extremity weakness. [...] [place] in the past. He does not want to revisit injections as he had to hold [...] in 2-3 months documented in this encounter [facility] 11-28-2024 Note Patient Education Urology Phimosis, Pediatric Phimosis is a tightening of the fold of skin that stretches over the tip of the penis (foreskin). The foreskin may be so tight that it cannot be easily pulled back over the head of the penis. This condition may improve or go away as your child grows older. What are the causes? This condition may occur naturally in infants. Other causes include: ??? Infection. ??? An injury to the penis. ??? Inflammation that results from poor cleaning of the foreskin. What increases the risk? This condition is more likely to develop in uncircumcised boys who are younger than 4 years of age. What are the signs or symptoms? Symptoms of this condition include: ??? Not being able to pull back the foreskin. ??? Ballooning of the foreskin during urination. ??? Pain and burning when urinating. ??? Blood in urine. ??? A weak stream of urine. How is this diagnosed? This condition is diagnosed with a physical exam. How is this treated? Usually, no treatment is needed for this condition. Without treatment, this condition usually improves with time. If treatment is needed, it may include: ??? Applying steroid creams and ointments. ??? Having a procedure done to stretch the foreskin using a balloon catheter. This is called manual dilation and stretching. ??? Having a procedure to remove part or all of the foreskin (circumcision). This may be done in severe cases where very little blood reaches the tip of the penis. ??? Having plastic surgery done to widen the foreskin (preputioplasty). There is a small risk of phimosis recurring after this procedure. Follow these instructions at home: ??? Do not try to force back the foreskin. This may cause scarring and can make the condition worse. ??? Clean under the foreskin regularly. ??? Apply creams or ointments as told by your child's health care provider. ??? Keep all follow-up visits. This is important. Contact a health care provider if: ??? Your child feels pain when he urinates. ??? Your child has signs of infection around the foreskin, such as: ? Redness, swelling, or pain. ? Fluid or blood. ? Warmth. ? Pus or a bad smell. Get help right away if: ??? Your child has not passed urine in 24 hours. ??? Your child has a fever. Summary ??? Phimosis is a tightening of the fold of skin that stretches over the tip of the penis (foreskin). ??? Usually, no treatment is needed for this condition. Without treatment, this condition usually improves with time. ??? If treatment is needed, it may include applying steroid creams and ointments or procedures to stretch, widen, or remove the foreskin. ??? Do not try to force back the foreskin. This can make the condition worse. ??? Contact a health care provider if there are signs of infection around the foreskin. This information is not intended to replace advice given to you by your health care provider. Make sure you discuss any questions you have with your health care provider. Document Revised: 08/13/2022 Document Reviewed: 08/13/2022 [employer] Patient Education ? 2023 [employer] [facility] 11-09-2024 Telephone encounter Note The pt calls stating that the pt will run out of medication before f/u appt. 08/24/24 Continue Valium 2mg 1 tab PO at bedtime adjusted per Dr. Gaona. Lower Sinemet 10-100mg to 2 times per day to reassess symptoms of depression. His feel he is worse with medication. May need to add another medication if bradykinesias worsen. Oarrs reviewed due now [facility] 11-09-2024 Miscellaneous Notes The pt calls stating that the pt will run out of medication before f/u appt. 08/24/24 Continue Valium 2mg 1 tab PO at bedtime adjusted per Dr. Gaona. Lower Sinemet 10-100mg to 2 times per day to reassess symptoms of depression. His feel he is worse with medication. May need to add another medication if bradykinesias worsen. Oarrs reviewed due now documented in this encounter [facility] 10-27-2024 History of Present illness Narrative Patient underwent Watchman device implantation without incident. Accompanied by to the office. Remains in atrial fibrillation. We down titrated Entresto dose last time because of symptomatic arterial hypotension. Hospital discharge 10/21/24. Subjective : Reports feeling well. Denies lightheadedness Reviewed home blood pressure log, blood pressures are now at target Watchman procedure was done without incident 12 point ROS is negative or non [...] Objective Wt Readings from Last 3 Encounters: 10/27/24 82.8 kg (182 lb 9.6 oz) 10/21/24 83.6 kg (184 lb 4 oz) 09/01/24 82.6 kg (182 lb) Vitals: 10/27/24 1512 BP: 116/64 BP Location: Right arm Patient Position: Sitting Pulse: 64 Weight: 82.8 kg (182 lb 9.6 oz) Height: 1.651 m (5' 5 ) Physical Exam: Examined in wheelchair GENERAL APPEARANCE: in no acute distress. CHEST: Symmetric and non-tender. Well-healed anterior surgical scar of prior coronary artery bypass grafting ICD generator left infraclavicular area INTEGUMENT: Skin warm and dry HEENT: No [...] mg tablet 1 tablet, 3 times daily carvedilol (COREG) 3.125 mg, oral, 2 times daily (morning and late afternoon) cholecalciferol (Vitamin D-3) 25 MCG (1000 UT) tablet 3 tablets, Daily clopidogrel (PLAVIX) 75 mg, oral, Daily Creon 36,000-114,000- 180,000 unit capsule,delayed release(DR/EC) capsule 3 capsules, 3 times daily (morning, midday, late afternoon) DAILY MULTI-VITAMIN ORAL 1 capsule, Daily diazePAM (Valium) 2 mg tablet 1 tablet, Nightly PRN digoxin (LANOXIN) 125 mcg, oral, Daily famotidine (PEPCID) 20 mg, Nightly FERROUS SULFATE ORAL 325 mg, Daily fexofenadine (HERMILA) 180 mg, Daily furosemide (LASIX) 20 mg, oral, Daily insulin glargine (LANTUS) 15 Units, Daily RT loperamide (IMODIUM) 2 mg, [...] Nightly Allergies Allergen Reactions Fish Oil Diarrhea Jardiance [Empagliflozin] Other Pancreatitis Byetta [Exenatide] Unknown Codeine Unknown Demerol [Meperidine] Unknown Invokana [Canagliflozin] Unknown Victoza 2-Cruz [Liraglutide] Unknown LABS: 10/21/2024 sodium 143 potassium 4.1 BUN 35 creatinine 1.35 GFR 53 hemoglobin 10.2 hematocrit 30.8 platelets 1 74,000 magnesium 2.2 Patient Active Problem List Diagnosis Date Noted Atrial fibrillation, unspecified type (Multi) 10/19/2024 Presence of Watchman left atrial appendage closure device 10/19/2024 Weight loss 07/27/2024 Falls frequently 07/27/2024 Former smoker 04/24/2024 Stage 3b chronic kidney disease (Multi) 04/24/2024 Nonrheumatic mitral valve regurgitation 04/24/2024 Nonrheumatic aortic valve insufficiency 04/24/2024 Body mass index (BMI) of 30.0-30.9 in adult 12/22/2023 Body mass index (BMI) 28.0-28.9, adult 12/06/2023 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 10/25/2023 Bipolar disorder, current episode manic severe with psychotic features (Multi) 10/25/2023 Sacroiliitis, not elsewhere classified ([facility]-HCC) 10/25/2023 Idiopathic chronic pancreatitis (Multi) 10/25/2023 Dementia [...] bypass graft 08/30/2023 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 08/30/2023 Obstructive sleep apnea syndrome 08/30/2023 Permanent atrial fibrillation (Multi) 08/30/2023 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 2. Hx of coronary artery bypass graft 3. Ischemic cardiomyopathy 4. 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 5. Presence of Watchman left atrial appendage closure device 6. [facility] 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 7. 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 Parkinson's disease, unspecified whether dyskinesia present, unspecified whether manifestations fluctuate 9. History of stroke 10. Obstructive sleep apnea syndrome 11. Stage 3b chronic kidney disease (Multi) 12. ICD (implantable cardioverter-defibrillator) in place 13. Body mass index (BMI) of 30.0-30.9 in adult 14. Former smoker Clinical decision making: Patient and very appreciative about care Now off anticoagulation and on dual antiplatelet therapy Unable to maximize guideline directed medical therapy for systolic heart failure because of arterial hypotension which is symptomatic. No change in cardiac medications today Follow up : 6 months Scribe Attestation By signing my name below, I, Shanna Thorpe RN , Scribe attest that this documentation has [...] discussion and plan. documented in this encounter [facility] Work Phone: 10-27-2024 Instructions Shanna Stout RN - 10/27/2024 2:45 PM EST Please bring all medicines, vitamins, and herbal supplements with you when you come to the office. Prescriptions will not be filled unless you are compliant with your follow up appointments or have a follow up appointment scheduled as per instruction of your physician. Refills should be requested at the time of your visit. BMI was above normal measurement. Current weight: 82.8 kg (182 lb 9.6 oz) Weight change since last visit (-) denotes wt loss -1.65 lbs Weight loss needed to achieve BMI 25: 32.7 Lbs Weight loss needed to achieve BMI 30: 2.7 Lbs Provided instructions on dietary changes Provided instructions on exercise. documented in this encounter [facility] Work Phone: 10-21-2024 Plan of care note The patient's goals for the shift include rest The clinical goals for the shift include conetinue to be HDS and DC today Pt is discharged to home with family. Pt stable throughout the shift. No complaints of pain this shift. No concerns at this time [facility] 10-21-2024 Miscellaneous Notes The patient's goals for the shift include rest The clinical goals for the shift include conetinue to be HDS and DC today Pt is discharged to home with family. Pt stable throughout the shift. No complaints of pain this shift. No concerns at this time The patient's goals for the shift include The clinical goals for the shift include Pt will sleep a minimum of 4 hours by the end of this shift Problem: Skin Goal: Participates in plan/prevention/treatment measures Outcome: Progressing Goal: Prevent/manage excess moisture Outcome: Progressing Goal: Prevent/minimize sheer/friction injuries Outcome: Progressing S/p CATHY closure Access: Dual right femoral vein access s/p proglide and vascade closure devices. Device: After confirmation of the device position on fluoroscopy and ICE, anchor with a tug test, compression and seal a 35 mm Watchman was successfully deployed without any immediate complications. No effusion on ICE was present pre and post watchman deployment. Recommendations: ASA and Plavix for 6 months followed by ASA for life CT in 4 months Access site monitoring. 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 No Who is requesting discharge planning? Provider Home or Post Acute Services In home services Type of Home Care Services Home health aide Expected Discharge Disposition Home Does the patient need discharge transport arranged? No Financial Resource Strain How hard is it for you to pay for the very basics like food, housing, medical care, and heating? Not hard Housing Stability In the last 12 months, was there a time when you were not able to pay the mortgage or rent on time? N In the past 12 months, how many times have you moved where you were living? 0 At any time in the past 12 months, were you homeless or living in a usp (including now)? N Transportation Needs In the past 12 months, has lack of transportation kept you from medical appointments or from getting medications? no In the past 12 months, has lack of transportation kept you from meetings, work, or from getting things needed for daily living? No Patient Choice Provider Choice list and CMS website (https://medicare.gov/care-compar e#search) for post-acute Quality and Resource Measure Data were provided and reviewed with: (n/a) Patient / Family choosing to utilize agency / facility established prior to hospitalization No Stroke Family Assessment Stroke Family Assessment Needed No Intensity of Service Intensity of Service 0-30 min TCC spoke with pt's spouse. She states they are waiting for a ride home today and will be picked up by pt's TAPING MACHINE OPERATOR. Pt receiving daily aide services thru the [facility] agency. Spouse states he has PCP at [facility] (Dr Anderson) and [facility] (Dr. Shirley). Vet now using powerchair at home and receives DM supplies and ensure [facility]. Vet has MCR A and B and insurance. No needs identified at this time. Vet to follow up as recommended. Winnie Harris RN (Weekend Transitional Manager Of Manufacturing-TCC, send Epic message) Pharmacy Medication History Review Yoana Ibrahim is a 83 y.o. male admitted for Atrial fibrillation (Multi). Pharmacy reviewed the patient's wbrbz-hi-sktxxbduh medications and allergies for accuracy. The list below reflects the updated CLOTH PRESSER list. Prior to Admission Medications Prescriptions Last Dose Informant CALCIUM CARBONATE-VITAMIN D3 ORAL 10/19/2024 Spouse/Significant Other Sig: Take 1 capsule by mouth 2 times a day. Creon 36,000-114,000- 180,000 unit capsule,delayed release(DR/EC) capsule 10/19/2024 Spouse/Significant Other Sig: Take 3 capsules by mouth 3 times daily (morning, midday, late afternoon). With meals, and 2 tablets twice daily with snacks DAILY MULTI-VITAMIN ORAL 10/19/2024 Spouse/Significant Other Sig: Take 1 capsule by mouth once daily. FERROUS SULFATE ORAL 10/19/2024 Spouse/Significant Other Sig: Take 325 mg by mouth once daily. PARoxetine (Paxil) 20 mg tablet 10/20/2024 Spouse/Significant Other Sig: Take 1 tablet (20 mg) by mouth once daily in the morning. apixaban (Eliquis) 2.5 mg tablet 10/18/2024 Spouse/Significant Other Sig: Take 1 tablet (2.5 mg) by mouth 2 times a day. busPIRone (Buspar) 5 mg tablet 10/20/2024 Spouse/Significant Other Sig: Take 1 tablet (5 mg) by mouth 2 times a day. carbidopa-levodopa (Sinemet) 10-100 mg tablet 10/20/2024 Spouse/Significant Other Sig: Take 1 tablet by mouth 3 times a day. Pt takes differently: bid carvedilol (Coreg) 3.125 mg tablet 10/20/2024 Spouse/Significant Other Sig: Take 1 tablet (3.125 mg) by mouth 2 times daily (morning and late afternoon). cholecalciferol (Vitamin D-3) 25 MCG (1000 UT) tablet 10/19/2024 Spouse/Significant Other Sig: Take 3 tablets (75 mcg) by mouth once daily. clopidogrel (Plavix) 75 mg tablet 10/20/2024 Spouse/Significant Other Sig: Take 1 tablet (75 mg) by mouth once daily. diazePAM (Valium) 2 mg tablet 10/19/2024 Bedtime Spouse/Significant Other Sig: Take 1 tablet (2 mg) by mouth as needed at bedtime (1 TAB DAILY). digoxin (Lanoxin) 125 MCG tablet 10/20/2024 Spouse/Significant Other Sig: Take 1 tablet (125 mcg) by mouth once daily. famotidine (Pepcid) 20 mg tablet 10/19/2024 Spouse/Significant Other Sig: Take 1 tablet (20 mg) by mouth once daily at bedtime. fexofenadine (Hermila) 180 mg tablet 10/20/2024 Spouse/Significant Other Sig: Take 1 tablet (180 mg) by mouth once daily. furosemide (Lasix) 20 mg tablet 10/19/2024 Spouse/Significant Other Sig: Take 1 tablet (20 mg) by mouth once daily. insulin glargine (Lantus) 100 unit/mL (3 mL) pen 10/19/2024 Spouse/Significant Other Sig: Inject 15 Units under the skin once daily. loperamide (Imodium) 2 mg capsule 10/20/2024 Spouse/Significant Other Sig: Take 1 capsule (2 mg) by mouth once daily. magnesium oxide (Mag-Ox) 420 mg tablet 10/19/2024 Spouse/Significant Other Sig: Take 1 tablet (420 mg) by mouth once daily. memantine (Namenda) 28 mg capsule,sprinkle,ER 24hr 10/19/2024 Spouse/Significant Other Sig: Take 1 capsule (28 mg) by mouth once daily. mirabegron (Myrbetriq) 50 mg tablet extended release 24 hr 24 hr tablet 10/20/2024 Spouse/Significant Other Sig: Take 1 tablet (50 mg) by mouth once daily. nitroglycerin (Nitrostat) 0.4 mg SL tablet Sig: Place 1 tablet (0.4 mg) under the tongue every 5 minutes if needed for chest pain (Report to the ER or call 911 after third dose.) for up to 25 days. potassium chloride CR (Klor-Con) 10 mEq ER tablet 10/20/2024 Morning Spouse/Significant Other Sig: Take 1 tablet (10 mEq) by mouth once daily. Do not crush, chew, or split. rivastigmine (Exelon) 13.3 mg/24 hour 10/20/2024 Spouse/Significant Other Sig: Place 1 patch on the skin once daily. Pt has on rosuvastatin (Crestor) 5 mg tablet 10/19/2024 Spouse/Significant Other Sig: Take 1 tablet (5 mg) by mouth once daily. sacubitriL-valsartan (Entresto) 24-26 mg tablet 10/20/2024 Spouse/Significant Other Sig: Take 1 tablet by mouth early in the morning.. Take the 49/51mg tablet in the evening Pt takes differently: twice daily sacubitriL-valsartan (Entresto) 49-51 mg tablet Not Taking Spouse/Significant Other Sig: Take 1 tablet by mouth once daily at bedtime. Patient not taking: Reported on 10/20/2024 tamsulosin (Flomax) 0.4 mg 24 hr capsule 10/19/2024 Spouse/Significant Other Sig: Take 1 capsule (0.4 mg) by mouth once daily. traZODone (Desyrel) 50 mg tablet 10/19/2024 Spouse/Significant Other Sig: Take 1 tablet (50 mg) by mouth once daily at bedtime. Pt takes differently: 0.5 tab at bedtime Facility-Administered Medications: None The list below reflects the updated allergy list. Please review each documented allergy for additional clarification and justification. Allergies Reviewed by Pearl Carter RN on 10/20/2024 Severity Reactions Comments Fish Oil Not Specified Diarrhea Byetta [exenatide] Low Unknown Codeine Low Unknown Demerol [meperidine] Low Unknown Invokana [canagliflozin] Low Unknown Victoza 2-cruz [liraglutide] Low Unknown Patient declines M2B at discharge. Pharmacy has been updated to [facility] in [place]. Sources used to complete the med history include: [facility] Pharmacy dispense history Spouse, Good historian Chart Review Care Everywhere [facility] fill [facility] Cardio visit 09/01/24 Below are additional concerns with the patient's CLOTH PRESSER list. Patient is taking Entresto 24-26 (twice daily) and stopped taking Entresto 49-51. Please read comments above in RED Patient currently has the Rivastegmine patch on Patient takes sinemet differently: twice daily instead of tid. Medications ADDED: Myrebtriq Fexofenadine Medications CHANGED: Lantus to 15 units Creon directions Medications REMOVED: Refresh tears Perphenazine Entresto 49-51 Ya Pop PharmD Transitions of Care Pharmacist [facility] Retail Services Please reach out via Secure Chat for questions, or if no response call [employer] or [employer] documented in this encounter [facility] Work Phone: 10-21-2024 Plan of care note The patient's goals for the shift include The clinical goals for the shift include Pt will sleep a minimum of 4 hours by the end of this shift Problem: Skin Goal: Participates in plan/prevention/treatment measures Outcome: Progressing Goal: Prevent/manage excess moisture Outcome: Progressing Goal: Prevent/minimize sheer/friction injuries Outcome: Progressing [facility] Work Phone: 10-20-2024 Note Formatting of this n ote might be different from the original. S/p CATHY closure Access: Dual right femoral vein access s/p proglide and vascade closure devices. Device: After confirmation of the device position on fluoroscopy and ICE, anchor with a tug test, compression and seal a 35 mm Watchman was successfully deployed without any immediate complications. No effusion on ICE was present pre and post watchman deployment. Recommendations: ASA and Plavix for 6 months followed by ASA for life CT in 4 months Access site monitoring. TTE today Likely discharge home today once recovery and monitoring period is complete [facility] Work Phone: 10-19-2024 Hospital Discharge instructions Monse Landers APRN-STUDY HALL SUPERVISOR - 10/19/2024 2:28 PM EST Watchman Discharge Instructions Anticoagulation Plan: You are take 81mg baby Aspirin and Plavix for 6 months (Plavix will be stopped after 6 months and you will remain on 81mg Aspirin for life). You will have a 4 month CTA to assess the effectiveness of the Watchman Device. General Instructions: DO NOT drink any alcoholic drinks or take any non-prescriptive medications that contain alcohol for the first 24 hours. DO NOT make any important decisions for the first 24 hours. Activity: You are advised to go directly home from the hospital. DO NOT lift anything heavier than 10 pounds for one week, this allows for proper healing of the groin. No excessive exercise or treadmill use for one week. You may walk and do stairs, slowly. No sexual activities for 24 hours after you arrive home. Wound Care: If slight bleeding should occur at site, lie down and have someone apply firm pressure just above the puncture site for 5 minutes. If it continues or is profuse, call 911. Always notify your doctor if bleeding occurs. Keep site clean and dry. Let air dry or you may use a simple bandaid. Gently cleanse the puncture site in your groin with soap and water only. You may experience some tenderness, bruising or minimal inflammation. If you have any concerns, you may contact the Grocery Manager or if any of these symptoms become excessive, contact your water plant operator or go to the emergency room. No tub baths, soaking, or swimming for one week. May shower the next day after your procedure. Diet: You may resume your normal diet. However it is better to start with liquids such as juices then soup and crackers, and gradually work up to solid foods. Other Instructions: If you develop difficulty breathing, rash, hives, severe nausea, vomiting, light-headedness or any signs of infection, immediately contact your doctor and go to the nearest emergency room. You must take your aspirin, clopidogrel (Plavix), prasugrel (Effient), or ticagrelor (Brilinta) every day without missing a single dose. If you are getting low on these medications, contact your physician immediately for a refill. - CALL 911 IF YOU HAVE ANY OF THE SIGNS AND SYMPTOMS OF HEART FAILURE: 1. Chest pain 2. Significant Shortness of breath 3. Fainting. Call Provider If (Home-going Patients): Breathing faster than normal. Breathing harder than normal or having retractions. Fever of 100.4 F (38 C) or higher. Chills. Drinking less than normal. Urinating less than normal, over 1 day. Acting very sleepy and difficult to awaken. Vomiting (throwing up) and not able to eat or drink for 12 hours. 3 or more loose, watery bowel movements in 24 hours (diarrhea). Any new concerning symptoms. Please call the STRUCTURAL HEART TEAM LINE if you have any questions or concerns - [phone] Watchurbana nurse coordinator Betty Dolan's phone is [phone]. documented in this encounter [facility] Work Phone: 09-27-2024 History of Present illness Narrative Images [...] placed or performed in visit on 05/10/24 [facility] Basic Metabolic Panel Collection Time: 05/10/24 2:38 PM Result Value Ref Range [facility] Glucose 286 (H) 70 - 100 mg/dL [facility] Blood Urea Nitrogen 38 (H) 7 - 25 mg/dL [facility] Creatinine 1.75 (H) 0.70 - 1.30 mg/dL [facility] ESTIMATED GFR 38.632 [facility] Sodium 143 136 - 145 mmol/L [facility] Potassium 4.7 3.5 - 5.1 mmol/L [facility] Chloride 107 98 - 107 mmol/L NON- [facility] Carbon Dioxide 29.1 21.0 - 31.0 mmol/L NON- [facility] Anion Gap 11.6 6.0 - 15.0 [facility] Calcium 8.6 8.6 - 10.3 mg/dL [facility] B-Type Natriuretic Peptide Collection Time: 05/10/24 2:38 PM Result Value Ref Range [facility] B-Type Natriuretic Peptide 252.0 (H) 5 - [...] vascular complications, sedation related complications, risk of IA, CVA, device embolization, pericardial tamponade and . [...] care of this patient. Fabiano Pickering MD Produce Department Manager, Interventional Cardiology Fellowship Program [facility] [place] [facility] [employer] Office documented in this encounter [facility] Work Phone: 09-01-2024 History of Present illness [...] features (Multi) 10/25/2023 Sacroiliitis, not elsewhere classified ([facility]) 10/25/2023 Idiopathic chronic pancreatitis (Multi) 10/25/2023 Dementia [...] bypass graft 08/30/2023 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 08/30/2023 Obstructive sleep apnea syndrome 08/30/2023 Permanent atrial fibrillation (Multi) 08/30/2023 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 Congestive heart failure, NYHA class 3, chronic, systolic 2. Nonrheumatic mitral valve regurgitation 3. ICD (implantable cardioverter-defibrillator) in place 4. 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 5. Obstructive sleep [...] discussion and plan. documented in this encounter [facility] Work Phone: 09-01-2024 Instructions Heaven Shah LPN [...] up per routine documented in this encounter [facility] Work Phone: 07-27-2024 History of Present illness Narrative Images from the original note were not included. This is a follow-up from April 2024. At that time we uptitrated Entresto to 24/20 6 in the morning and 49/50 1 in the evening. Blood work was ordered. Patient is accompanied by and grandson. Grandson is an ER nurse in [place]. 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 Congestive heart failure, NYHA class 3, chronic, systolic Follow Up In Cardiology sacubitriL-valsartan (Entresto) 24-26 mg tablet Follow Up In Cardiology 2. 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 Basic Metabolic Panel Basic Metabolic Panel 3. Hx of coronary artery bypass graft 4. ICD (implantable cardioverter-defibrillator) in place Referral to Cardiac Electrophysiology 5. Ischemic cardiomyopathy sacubitriL-valsartan (Entresto) 24-26 mg tablet 6. 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 Former smoker 8. Body mass index (BMI) 28.0-28.9, adult 9. Permanent atrial fibrillation (Multi) ECG 12 Lead 10. Parkinson's disease, unspecified whether dyskinesia present, unspecified whether manifestations fluctuate Referral to Cardiac Electrophysiology 11. Falls frequently Referral to Cardiac Electrophysiology Clinical decision making: Patient with high [id number] score and high Hasbled score. Permanent atrial [...] evaluated by me and is referred to [facility] for a left atrial appendage implant due thromboembolic stroke risk from atrial fibrillation with CHADS2 score >= 2 or a [id number] score >= 3. This patient is not a good candidate for chcf anticoagulation for the following reason(s): This patient [...] discussion and plan. documented in this encounter [facility] Work Phone: 07-27-2024 Instructions Heaven Shah LPN [...] instructions on exercise. documented in this encounter [facility] Work Phone: 07-25-2024 Hospital Discharge instructions Patient [...] stimulation). ?For women, using a medical center representative to prevent urine leaks. This is [...] right after experiencing incontinence. General instructions Take ytnq-auy-pwdwzjx and prescription medicines only as told by [...] important. Where to find more information National [place] of Diabetes and Digestive and Kidney Diseases: www.niddk.nih.gov [place] [employer]: www.urologyhealth.org Contact a health care [...] provider. Document Revised: 04/04/2021 Document Reviewed: 04/04/2021 [employer] Patient Education 2023 [employer]. 07/25/2024 14:17:38 Benign Prostatic Hyperplasia Benign Prostatic [...] urethra. Follow these instructions at home: Take bldp-oah-afropln and prescription medicines only as told by [...] provider. Document Revised: 03/18/2022 Document Reviewed: 03/18/2022 [employer] Patient Education 2023 [employer]. 07/25/2024 14:17:37 Paraphimosis Paraphimosis Paraphimosis is a [...] pressure to the area. General instructions Take kxls-ebg-pxcsvak and prescription medicines only as told by [...] and water are not available, use hand 3d technologist. ?Ask when you should remove your dressing. [...] needs to be treated right away. Take dxlt-vil-pgonhcb and prescription medicines only as told by [...] provider. Document Revised: 08/13/2022 Document Reviewed: 08/13/2022 [employer] Patient Education 2023 [employer]. Follow Up Care 06/15/2024 10:57:21 With:CINTHYA SANCHEZ, Petr Richard, URL Address: [facility] [address] [place], [place] [id number]- When: Unknown Comments:2 mos w/ PSA [facility] 07-25-2024 Note Patient Education Urology Urinary [...] ? For women, using a medical center representative to prevent urine leaks. This is [...] health care provider (more content not included)... [facility] 06-15-2024 Note Progress Note-Milton barbosa Patient: YOANA IBRAHIM Age: 83 years Sex: [...] Daily, # 30 tab(s), Refills(s) 11, [id number], cm, 06/15/24 10:14:00 EDT, Height/Length [...] and Minerals: Daily, Refill(s) 0 Potassium Chloride (Rmb-Mmky-Qti 10) 10 mEq oral tablet, extended release: [...] = 0.5 tab(s), Oral, Daily Potassium Chloride (Fnd-Wsht-Wje 10) 10 mEq oral tablet, extended release 10 mEq = 1 tab(s), Oral, Daily psyllium oral powder 6 gm, Oral, BID rivastigmine 13.3 mg/24 hr transdermal film, extended release 1 patch(es), Topical, Daily tamsulosin 0.4 mg Cap 0.4 mg = 1 cap(s), Oral, Bedtime Problem list: All Problems History of prostate cancer / SNOMED CT 0837680066 / Confirmed Anxiety / SNOMED CT 20981836 / Confirmed Pancreatic insufficiency / SN (more content not included)... [facility] Comment on above: Result Comment: Elec tronically Signed By: Petr PAINTING MD\.br\Date and Time Signed: 06/15/24 17:17 EDT 06-15-2024 Evaluation + Plan note Extrac sterling from: Title:HOPD visit Author:Petr PAINTING MD Date: 06/15/24 Impression and Plan Assessment and Plan: Diagnosis: BPH with obstruction/lower urinary tract symptoms (ZWS72-LI N40.1, Billing Diagnosis, Medical), Chronic radiation cystitis (ICD10- CM N30.40, Billing Diagnosis, Medical), Other obstructive and reflux uropathy (RHT30-TJ N13.8, Discharge, Medical), Overactive bladder (EMS21-IO N32.81, Billing Diagnosis, Medical), Personal history of prostate cancer (GYB66-PI Z85.46, Billing Diagnosis, Medical). Additional Plan of [...] Date:07/25/2024 12:30:00 PM Scheduled Provider:BARB Salinas APRN, [place] X Location:[facility] Appointment Type:URO Office Visit [facility] 10-03-2024 Hospital Discharge instructions Patient Education [...] your antibiotics and have a great day! [facility] 10-03-2024 NotePatient Education Cystoscopy ? Voiding [...] if you have a fever over 100 degrees.[facility] 05-01-2024 NoteUrology Office/Clinic Note Chief Complaint [facility], and hx prostate cancer. HPI Staff 83 year old male new patient referred for incontinence, hx of prostate cancer. Dr. Anderson is PCP per 09/14/23 [place] note. Was seeing urologist in [place] but hasn't sen them for 2 years. [...] with voice recognition artificial intelligence software, specifically Xsigo, SomethingIndie and or [employer] Warp. Substitutions may have occurred due to the [...] [address] Galvez in [place]. No recent PSA or cancer monitoring. Patient [...] 6. 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 (current) use of antithrombotics/antiplatelets) On Plavix Follow-up With When Contact Information CINTHYA SANCHEZ, Petr Richard, URL [address] [place] [id number] Additional Instructions: schedule cysto Patient Education Prostate Cancer Benign Prostatic Hyperplasia Problem List/Past Medical History Ongoing Acute kidney injury Anemia Anxiety Arthritis Atrial fibrillation Benign prostatic hyperplasia with outflow obstruction Cerebrovascular accident Chronic kidney disease Chronic obstructive pulmonary disease Chronic systolic heart failure Congestive heart failure Deafness Dementia Diabetes Ess[place] (more content not included)...[facility] Result Comment: Electronically Signed By: BARB Salinas APRN, Anabel Anthony\.fabian\Date and Time Signed: 05/01/24 08:58 [id number] NotePatient Education Oncology Prostate Cancer The prostate [...] under a microscope. This is called the Coldspring score and the total score can range from 6?10, indicating how likely it is that the cancer will spread (metastasize) to other parts of the body. The higher the score, the greater thelikelihood that the cancer will spread. ? Earl 6 or lower: This indicates that the cancer cells look similar to normal prostate cells (well differentiated). ? Coldspring 7: This indicates that the cancer cells [...] implanted intothe prostate gla (more content not included)...[facility]08-13-2024 Evaluation + Plan note Diagnostic Tests Pending * PSA Total 04/25/24 [facility] 08-12-2024 History of Present illness Narrative* Rosemary Cartagena MD - 04/24/2024 2:00 PM EDT Most recently seen by me October 2023. After that was seen by Saira Heart NP on 12/06/2023, 12/22/2023, 01/31/2024, and [...] features (Multi) 10/25/2023 Sacroiliitis, not elsewhere classified ([facility]-HCC) 10/25/2023 Idiopathic chronic pancreatitis (Multi) 10/25/2023 Dementia [...] bypass graft 08/30/2023 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 08/30/2023 Obstructive sleep apnea syndrome 08/30/2023 Permanent atrial fibrillation (Multi) 08/30/2023 [facility] 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 08/30/2023 Shortness [...] In Cardiology 5. 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rosuvastatin (Crestor) 5 mg tablet 6. Hx of coronary artery bypass graft 7. 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 Follow Up In Cardiology 8. [facility] 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 9. Other specified diabetes mellitus with other specified complication, unspecified whether keno terminal operator insulin use (Multi) 10. Obstructive sleep [...] Scribe Attestation By signing my name below, Carrie Corey LPN, Scribe attest that this documentation has [...] exam, discussion and plan. documented in this [facility] Work Phone: 1(833) 710-630608-12-2024 Instructions* Patient Instructions* Carrie Garcia LPN - [...] through Care Everywhere. * Heart Healthy Diet (Singaporean) documented in this [facility] Work Phone: 1(540) 964-875804-10-2024 History of Present illness Narrative* Saira Heart APRN-STUDY HALL SUPERVISOR - 12/22/2023 2:00 PM EDT Chief Complaint [...] or Jardiance because of history of pancreatitis. [employer] Evera XT DR ICD May 2019, with [...] contact the office if new symptoms arise. UNION ORGANIZER in one month Saira Heart MSN, KIER TENDER-STUDY HALL SUPERVISOR, PMHNP-[facility] Please excuse any errors in grammar or translation related to this dictation. Voice recognition software was utilized to prepare this document. [facility]: 1([phone]) 666-840904-10-2024 Instructions* Patient Instructions* CHARLI Hollingsworth - 12/22/2023 [...] contact the office if new symptoms arise. UNION ORGANIZER in one month [facility]: 1([phone]) 511-867903-25-2024 History of Present illness Narrative* CHARLI Hollingsworth [...] the office today his standing blood pressure [id number]. He did not take his Lasix this [...] the back exam room to the front placement secretary there was no dyspnea noted with [...] failure, systolic, possibly systolic and diastolic, functional [id number] with improvement in TONG with initiation of Entresto. Varying estimates of left ventricular ejection fraction most recent 35% echo August 2021 43% stress perfusion study August 2021 Cannot be on Farxiga or Jardiance because of history of pancreatitis. [employer] Evera XT DR ICD May 2019, with [...] contact the office if new symptoms arise. UNION ORGANIZER in 2 weeks Saira Heart MSN, KIER TENDER-STUDY HALL SUPERVISOR, PMHNP-BC [facility] Please excuse any errors in grammar or translation related to this dictation. Voice recognition software was utilized to prepare this document. [facility] Work Phone: 1(597) 765-446603-25-2024 Instructions* Patient Instructions* CHARLI Hollingsworth - 12/06/2023 [...] contact the office if new symptoms arise. UNION ORGANIZER in 2 weeks [facility] Phone: 1(681) 366-438202-12-2024 History of Present illness Narrative* Rosemary Cartagena [...] Sick sinus syndrome dual-chamber pacemaker, revised to [employer] Evera XT DR ICD May 2019,with a [...] redirect to the Timeline version of the [employer]. Wt Readings from Last 3 Encounters: [...] apnea 08/30/2023 Permanent atrial fibrillation (CMS/HCC) 08/30/2023 [facility] 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 08/30/2023 Shortness [...] follow-up, to uptitrate medications. Patient to see Siara Heart NP in 4 weeks. Saira Heart please continue to see patient at frequent intervals for Entresto up titration as tolerated Digoxin 0.125 mg p.o. daily Basic metabolic profile 1 week Treatment of obstructive sleep apnea is necessary to improve fatigue Cannot be on Farxiga or Jardiance because of history of pancreatitis. Follow-up with me in 4 months Follow up : 1 week with Saira Heart and 4 months with me. Saira will see patient frequently for up titration [...] of Rosemary Cartagena MD. [facility] Work Phone: 1(612) 586-558902-12-2024 Instructions* Patient Instructions* Monisha Roberts LPN - [...] follow up per routine [facility] Work Phone: [phone]) 609-327101-04-2024 Evaluation note* Encounter Date Diagnosis Assessment Notes Treatment Notes Treatment Clinical Notes Sep, Diarrhea (ICD-10 - R19.7) [email or web address] Other 2023 History of Present illness Narrative* Rosemary Cartagena MD - 08/30/2023 10:30 AM EST Referring provider: Justin MARIN. History Of Present Illness: Yoana Ibrahim is a 82 y.o. male presenting with long history of cardiac problems, and is here to establish cardiology visit. Previously was going to [place], patient and want to switch care over to [facility]. Has history of atrial fibrillation coronary artery bypass graft obstructive sleep apnea XT DR PURCELL device implanted 2018. 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 Shortness of breath 9. History of stroke 10. Benign prostatic hyperplasia with lower urinary tract symptoms, symptom details unspecified 11. Ischemic cardiomyopathy 12. Fatigue, unspecified type 13. Other specified diabetes mellitus with other specified complication, unspecified whether chcf insulin use (CMS/HCC) Patient has chronic left [...] at this time. 4. Enroll in device clinic-[employer] XT DR 2019 5. Follow-up in 8 weeks at which time further recommendations can be made. Total of 60 minutes reviewing information coordinating care and ordering additional testing. Thank you for allowing me to participate in Mr. Ibrahim's care, please do not hesitate to call if further questions arise, Sincerely, oRsemary Cartagena MD [facility] Provider Attestation - Scribe documentation All medical record entries made by the Scribe were at my direction and personally dictated by me. Ihave reviewed the chart and agree that the record accurately reflects my personal performance of the history, physical exam, discussion and plan. Scribe Attestation By signing my name below, I, Inés Morales LPN , Scribe attest that this documentation has been prepared under the direction and in the presence of Rosemary Cartagena MD. [facility] Work Phone: 1([phone]) 472-390112-18-2023 Instructions* Patient Instructions* Monisha Roberts LPN - [...] done in office today [facility] Work Phone: [phone]) 711-521411-30-2023 Evaluation note* Encounter Date Diagnosis Assessment Notes Treatment Notes Treatment Clinical Notes Jul, Diarrhea (ICD-10 - R19.7) [email or web address] Other 07-20-2023 Evaluation note* Encounter Date Diagnosis Assessment Notes Treatment Notes Treatment Clinical Notes Mar, Exocrine pancreatic insufficiency (ICD-10 - K86.81) Patient will continue Creon as directed without change Mar, Diarrhea (ICD-10 - R19.7) Patient reports that he still has fecal accidents about 1 every 2 weeks Patient will continue Imodium as direct without change [email or web address] Other 12-15-2022 Evaluation note* Encounter Date Diagnosis Assessment Notes Treatment Notes Treatment Clinical Notes Aug, Diarrhea (ICD-10 - R19.7) [email or web address] Other 12-13-2022 Evaluation note* Encounter Date Diagnosis Assessment Notes Treatment Notes Treatment Clinical Notes Aug, Diarrhea (ICD-10 - R19.7) [email or web address] Other 06-29-2022 Evaluation note* Encounter Date Diagnosis Assessment Notes Treatment Notes Treatment Clinical Notes Feb, 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 PATIENT ADVISED WE WILL INCREASE MEDICATION AT THIS TIME. 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 All the questions were answered. [email or web address] Other 10-05-2021 Evaluation note* Encounter Date Diagnosis Assessment Notes Treatment Notes Treatment Clinical Notes Jun, Lumbar degenerative disc disease (ICD-10 - M51.36) [email or web address] Other 10-04-2021 Evaluation note* Encounter Date Diagnosis [...] - M47.817) Stable, proceed with treatment plan. [email or web address] Other 10-04-2021 Evaluation note* Encounter Date Diagnosis Assessment Notes Treatment Notes Treatment Clinical Notes Jun, Lower extremity pain (ICD-10 - M79.606) [email or web address] Other Evaluation + Plan note Future Appointments Appointment Date:04/25/2024 01:30:00 PM Scheduled Provider:BARB Salinas APRN, Anabel Anthony Location:[facility] Appointment Type:URO [facility] note Future Appointments Appointment Date:10/03/2024 03:30:00 PM Scheduled Provider:Petr PAINTING MD Location:[facility] Appointment Type:URO Office Visit Diagnostic Tests Pending * PSA Total 07/25/24 [facility] evaluation + Plan note Future Appointments Appointment Date:11/22/2024 03:00:00 PM Scheduled Provider:Petr PAINTING MD Location:[facility] Appointment Type:URO Office Visit [facility] Jaiden evalulyjaw noteNo [facility] [facility] [employer] Other evaluation noteNo assessment information available [facility] Work Phone: evaluation note* Diagnosis Permanent atrial fibrillation (CMS/HCC)- Primary Atrial fibrillation ICD (implantable cardioverter-defibrillator) in place Sleep apnea, unspecified type Abnormal EKG Nonspecific abnormal electrocardiogram (ECG) (EKG) Hx of coronary artery bypass graft Postsurgical aortocoronary bypass status Coronary artery disease, unspecified vessel or lesion type, unspecified whether angina present, unspecified whether tunica-biloxi or transplanted heart [facility] 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 Shortness of breath History of stroke Transient ischemic attack (TIA), and cerebral infarction without residual deficits Benign prostatic hyperplasia with lower urinary tract symptoms, symptom details unspecified Ischemic cardiomyopathy Other specified forms of chronic ischemic heart disease Fatigue, unspecified type Other specified diabetes mellitus with other specified complication, unspecified whether chcf insulin use (CMS/HCC) documented in this encounter [facility] Work Phone: Evaluation note* Diagnosis Abnormal EKG Nonspecific abnormal electrocardiogram (ECG) (EKG) Sleep apnea, unspecified type Permanent atrial fibrillation (CMS/HCC) Atrial fibrillation Shortness of breath documented in this encounter [facility] Work Phone: Evaluation note* Diagnosis Bipolar disorder, current episode manic severe with psychotic features (CMS/HCC)- Primary Permanent atrial fibrillation (CMS/HCC) Atrial fibrillation Ischemic cardiomyopathy Other specified forms of chronic ischemic heart disease ICD (implantable cardioverter-defibrillator) in place Hx of coronary artery bypass graft Postsurgical aortocoronary bypass status 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 History of stroke Transient ischemic attack (TIA), and cerebral infarction without residual deficits Other specified diabetes mellitus with other specified complication, unspecified whether chcf insulin use ([facility]/HCC) 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 Unspecified essential hypertension 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 Obstructive sleep apnea syndrome Obstructive sleep apnea (adult) (pediatric) Medication course changed Sacroiliitis, not elsewhere classified ([facility]/HCC) Sacroiliitis, not elsewhere classified Idiopathic chronic pancreatitis ([facility]) Dementia in other diseases classified elsewhere, unspecified severity, without behavioral disturbance, psychotic disturbance, mood disturbance, and anxiety ([facility]) Major depressive disorder, recurrent, moderate ([facility]) Major depressive disorder, recurrent episode, moderate Acute embolism and thrombosis of right peroneal vein ([facility]) Prostate CA ([facility]) Malignant neoplasm of prostate Chronic systolic heart failure ([facility]) Chronic systolic heart failure documented in this encounter [facility] Work Phone: Evaluation note* Diagnosis BMI 29.0-29.9,adult- Primary Ischemic cardiomyopathy Other specified forms of chronic ischemic heart disease 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 Unspecified essential hypertension documented in this encounter [facility] Work Phone: Evaluation note* Diagnosis BMI 31.0-31.9,adult- Primary Ischemic cardiomyopathy Other specified forms of chronic ischemic heart disease documented in this encounter [facility] Work Phone: Evaluation note* Diagnosis Onset Date Resolution Status Exocrine pancreatic insufficiency [facility] Work Phone: Evaluation note* Diagnosis Hyperreflexia- Primary [...] not intractable Cerebrovascular accident (CVA), unspecified mechanism ([facility]) Vertigo Dizziness and giddiness [facility]* Diagnosis Congestive heart failure, NYHA class 3, chronic, systolic 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 Unspecified essential hypertension Hx of coronary artery bypass graft Postsurgical aortocoronary bypass status ICD (implantable cardioverter-defibrillator) in place Ischemic cardiomyopathy Other specified forms of chronic ischemic heart disease [facility] 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 Former smoker Personal history of tobacco use, presenting hazards to health Body mass index (BMI) 28.0-28.9, adult Permanent atrial fibrillation (Multi) Atrial fibrillation Parkinson's disease, unspecified whether dyskinesia present, unspecified whether manifestations fluctuate Falls frequently Personal history of fall documented in this encounter [facility] Work Phone: Evaluation note* Diagnosis Permanent atrial fibrillation (Multi) Atrial fibrillation Ischemic cardiomyopathy Other specified forms of chronic ischemic heart disease Congestive heart failure, NYHA class 3, chronic, systolic (Multi) 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 Hx of coronary artery bypass graft Postsurgical aortocoronary bypass status 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 Unspecified essential hypertension [facility] 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 Other specified diabetes mellitus with other specified complication, unspecified whether chcf insulin use (Multi) Obstructive sleep apnea syndrome Obstructive sleep apnea (adult) (pediatric) History of stroke Transient ischemic attack (TIA), and cerebral infarction without residual deficits Stage 3b chronic kidney disease (Multi) BMI 29.0-29.9,adult Former smoker Personal history of tobacco use, presenting hazards to health Nonrheumatic mitral valve regurgitation Nonrheumatic aortic valve insufficiency documented in this encounter [facility] Work Phone: Evaluation note* Diagnosis Periodic limb movement disorder- Primary Gait difficulty Abnormality of gait Balance problem Abnormality of gait Radiculopathy, lumbosacral region Thoracic or lumbosacral neuritis or radiculitis, unspecified Memory loss [facility]* Diagnosis 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- Primary Congestive [...] ischemic heart disease 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 Unspecified essential hypertension Former smoker Personal history of tobacco use, presenting hazards to health documented in this encounter [facility] Work Phone: Evaluation note* Diagnosis Persistent atrial fibrillation (Multi)- Primary Atrial fibrillation ICD (implantable cardioverter-defibrillator) in place 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 Parkinson's disease, unspecified whether dyskinesia present, unspecified whether manifestations fluctuate Falls frequently Personal history of fall documented in this encounter [facility] Work Phone: Evaluation note* Diagnosis Atrial fibrillation, unspecified type (Multi) documented in this encounter [facility] Work Phone: Evaluation note* Diagnosis Atrial fibrillation (Multi)- Primary Atrial fibrillation Atrial fibrillation, unspecified type (Multi) Preoperative examination Unspecified pre-operative examination Presence of Watchman left atrial appendage closure device Postoperative examination Follow-up examination, following unspecified surgery Encounter for preprocedural cardiovascular examination Congestive heart failure, NYHA class 3, chronic, systolic Ischemic cardiomyopathy Other specified forms of chronic ischemic heart disease Atrial fibrillation, unspecified type (Multi) Presence of Watchman left atrial appendage closure device documented in this encounter [facility] Work Phone: Evaluation note* Diagnosis Falls frequently- Primary Personal history of fall Hx of coronary artery bypass graft Postsurgical aortocoronary bypass status Congestive heart failure, NYHA class 3, chronic, systolic Ischemic cardiomyopathy Other specified forms of chronic ischemic heart disease 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 Unspecified essential hypertension Presence of Watchman left atrial appendage closure device Chronic kidney disease, stage 3a (Multi) Other specified diabetes mellitus with other specified complication, unspecified whether chcf insulin use (Multi) ICD (implantable cardioverter-defibrillator) in place Parkinson's disease, unspecified whether dyskinesia present, unspecified whether manifestations fluctuate Obstructive sleep apnea syndrome Obstructive sleep apnea (adult) (pediatric) 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 documented in this encounter [facility] Work Phone: Evaluation note* Diagnosis Vertigo Dizziness and giddiness Anxiety Anxiety state, unspecified Gait difficulty Abnormality of gait [facility]* Diagnosis Periodic limb movement disorder- Primary Parkinson's disease without dyskinesia or fluctuating manifestations (CMS/HCC) Cerebrovascular accident (CVA), unspecified mechanism (CMS/HCC) Chronic bilateral low back pain with bilateral sciatica Memory loss HERBIE (obstructive sleep apnea) Obstructive sleep apnea (adult) (pediatric) documented [facility]* Diagnosis Parkinson's disease without dyskinesia or fluctuating manifestations (CMS/HCC)- Primary Dysphagia, unspecified type Cerebrovascular accident (CVA), unspecified mechanism (CMS/HCC) HREBIE (obstructive sleep apnea) Obstructive sleep apnea (adult) (pediatric) Radiculopathy, lumbosacral region Thoracic or lumbosacral neuritis or radiculitis, unspecified Memory loss Periodic limb movement disorder [facility] N[facility]ative - Reported* Type Description Date Medical History degenerative disc disease Medical History stenosis Medical History bladder cancer Medical History stroke Medical History DM 2 Surgical History APPENDECTOMY Surgical History CHOLECYSTECTOMY Surgical History bilateral knee replacements Surgical History cardiac pacemaker Surgical History bladder stimulator Surgical History open heart surgery Hospitalization History see above [email or web address] Other History general Narrative - Reported* Type [...] cataract-lens implants RACHELLE. Hospitalization History see above [email or web address] Other Hospital course Narrative No data available for this section [facility] Hospital Discharge instructions No data available for this section [facility] Progress note No data available for this section [facility] Reason for referral (narrative)* Consultation (Routine) - Authorized Specialty Diagnoses / Procedures Referred By Contac t Referred To Contact Cardiology Diagnoses Permanent atrial fibrillation (CMS/HCC) Ischemic cardiomyopathy ICD (implantable cardioverter-defibrillator) in place 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 Procedures Follow Up In Cardiology Rosemary Cartagena MD [address] [place] [address] [address] [place] [address] Saira Heart, KIER TENDER-STUDY HALL SUPERVISOR [address] [facility] [address] [place] [address] Referral ID Status Reason Start Date Expiration Date V isits Requested Visits Authorized [id number] Authorized 10/25/2023 10/24/2024 1 1 * Consultation (Routine) - Authorized Specialty Diagnoses / Procedures Referred By Contac t Referred To Contact Sleep Medicine Diagnoses Obstructive sleep apnea syndrome Rosemary Cartagena MD [address] [facility] [address] [place] [address] Referral ID Status Reason Start Date Expiration Date Visits Requested Visits Authorized [id number] Authorized Specialty Services Required 10/25/2023 10/24/2024 1 1 * Consultation (Routine) - Authorized Specialty Diagnoses / Procedures Referred By Contac t Referred To Contact Cardiology Diagnoses Permanent atrial fibrillation (CMS/HCC) Ischemic cardiomyopathy ICD (implantable cardioverter-defibrillator) in place 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 Procedures Follow Up In Cardiology Rosemary Cartagena MD [address] [facility] [address] [place] [address] Rosemary Cartagena MD [address] [facility] [address] [place] [address] Referral ID Status Reason Start Date Expiration Date V isits Requested Visits Authorized [id number] Authorized 10/25/2023 10/24/2024 1 1 [facility] Work Phone: Reason for referral (narrative)* Consultation (Routine) - Authorized Specialty Diagnoses / Procedures Referred By Contac t Referred To Contact Cardiology Diagnoses Ischemic cardiomyopathy Procedures Follow Up In Cardiology Saira Heart, KIER TENDER-STUDY HALL SUPERVISOR [address] [facility] 2, [address] [place] [address] Referral ID Status Reason Start Date Expiration Date V isits Requested Visits Authorized [id number] Authorized 12/06/2023 12/05/2024 1 1 [facility] Work Phone: Rezcmw for referral (narrative)* Consultation (Routine) - Authorized Specialty Diagnoses / Procedures Referred By Contac t Referred To Contact Cardiology Diagnoses Ischemic cardiomyopathy Procedures Follow Up In Cardiology Saira Heart APRN-STUDY HALL SUPERVISOR [address] [facility] 2, [address] [address] Referral ID Status Reason Start Date Expiration Date V isits Requested Visits Authorized [id number] Authorized 12/22/2023 12/21/2024 1 1 [facility] Work Phone: Redcgc for referral (narrative)* Consultation (Routine) - Authorized Specialty Diagnoses / Procedures Referred By Contac t Referred To Contact Cardiology Diagnoses Congestive heart failure, NYHA class 3, chronic, systolic (Multi) Procedures Follow Up In Cardiology Rosemary Cartagena MD [address] [place] [address] Rosemary Cartagena MD [address] [place] [address] Referral ID Status Reason Start Date Expiration Date V isits Requested Visits Authorized [id number] Authorized 04/24/2024 04/24/2025 1 1 T [facility] Work Phone: Resegm for visit Narrative* Consultation (Routine) - Authorized Specialty Diagnoses / Procedures Referred By Contac t Referred To Contact Cardiology Diagnoses ICD (implantable cardioverter-defibrillator) in place [facility] 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 Parkinson's disease, unspecified whether dyskinesia present, unspecified whether manifestations fluctuate Falls frequently Rosemary Cartagena MD [address] [facility] [address] [place] [address] Phone: tel: fax: Fabiano Pickering MD [address] [facility] [address] [place] [address] Phone: tel: fax: Referral ID Status Reason Start Date Expiration Date Visits Requested Visits Authorized [id number] Authorized Specialty Services Required 4 07/27/2025 1 1 [facility] Work Phone: Rexftj for visit Narrative* Auth/Cert Specialty Diagnoses / Procedures Referred By Godwin romo Referred To Contact Diagnoses Atrial fibrillation, unspecified type (Multi) Atrial fibrillation, unspecified type (Multi) [I48.91] Procedures MA PERQ CLSR TCAT L ATR APNDGE W/ENDOCARDIAL IMPLNT MA PERQ CLSR TCAT L ATR APNDGE W/ENDOCARDIAL IMPLNT LAAO (Left Atrial Appendage Occlusion) [place] [address] [place] [address] Phone: tel: fax: [facility] [address] [facility] [address] [place] [address] Phone: tel: fax: Referral ID Status Reason Start Date Expiration Date Visits Re quested Visits Authorized [id number] 1 1 [facility] Work Phone: Rehjkc for visit Narrative* Auth/Cert Specialty Diagnoses / Procedures Referred By Godwin romo Referred To Contact Diagnoses Atrial fibrillation, unspecified type (Multi) Atrial fibrillation, unspecified type (Multi) [I48.91] Procedures MA PERQ CLSR TCAT L ATR APNDGE W/ENDOCARDIAL IMPLNT MA PERQ CLSR TCAT L ATR APNDGE W/ENDOCARDIAL IMPLNT LAAO (Left Atrial Appendage Occlusion) [place] [address] [place] [address] Phone: tel: fax: [facility] [place] [place] [address] Phone: tel: fax: Referral ID Status Reason Start Date Expiration Date Visits Re quested Visits Authorized [id number] 1 1 [facility] Work Phone: Summary Purpose Family History No [...] FoundDocuments on File Type Date Recorded Patient Scalloper Expl anation Advance Directives and Livin g Will Advance Directives and Livin g Will 10/15/2013 9:06 AM Power of Fiscal Accounting Clerk Power of Fiscal Accounting Clerk 10/15/2013 9:06 AM Latest Code Status on [...] Time Advance Directives Yes February 18 11:26am Date Activated Date Inactivated Comments 10/20/2024 2:30 PM Question Answer Comments Plan of Care: Code Status Discussion Completed Decision Maker: Patient Date Activated Date Inactivated Comments 10/20/2024 12:54 PM 10/20/2024 2:30 PM Question Answer Comments Plan of Care: Code Status Discussion Completed Decision Maker: Patient Date Activated Date Inactivated Comments 10/20/2024 2:30 PM Question Answer Comments Plan of Care: Code Status Discussion Completed Decision Maker: Patient Date Activated Date Inactivated Comments 10/20/2024 12:54 PM 10/20/2024 2:30 PM Question Answer Comments Plan of Care: Code Status Discussion Completed Decision Maker: Patient History of Present Illness * Hayley Ramirez RN - 06/13/2019 11:58 AM EDT Pt given discharge instructions and paper work. Reviewed discharge instructions with . Pt and family agreeable to plan of care. * Niurka Alvarado RN - 06/12/2019 4:00 PM EDT Patient is outpatient so all of his home medications were given to check writer & check writer sent medication to pharmacy for verification. [...] Lumbar degenerative disc disease (M51.36) Referral Organization [facility] Pain Managemen t Referring Provider First Name Ryder Referring Provider Last Name Ranjeet Referring Provider Specialty Pain Medici ne Referred Organization [facility] Ne urosurgery Referred Provider Maciej Maciel Dale Referred Address [address] [facility] ,[place], [place],[address] Referred Provider Specialty Neurological Surgery Referral Priority Routine General Notes Tarsha Nieto V 02:53:20 PM >Patient had CT scan of the lumbar spine in [place] earlier this year. He has a pacemaker/defibrillator and cannot have MRI Reason *FU 06/24 eval and treat Diagnosis 1 Lower extremity pain (M79.606) Referral Organization [facility] Pain Managemen t Referring Provider First Name Ryder Referring Provider Last Name Ranjeet Referring Provider Specialty Pain Medici ne Referred Organization [facility] Vascular Surge ry Referred Provider Abdon Jackman Referred Address [address] [facility],[address],[place], [place],[address] Referred Provider Specialty Vascular Laila haresh Referral Priority Routine General Notes Sadaf Hernandez 10:25:46 AM >p2p sent Reason Evaluate and Treat Diagnosis 1 Spondylolisthesis, l umbar region (M43.16) Referral Organization [facility] urosurgery Referring Provider First Name Osvaldo Referring Provider Last Name Raheem Referring Provider Specialty Neurologica l Surgery Referred Organization [facility] Referred Address [address] [place], [place],[address] Referred Provider Specialty Physical The rapist Referral [...] W/SPECTRAL F-UP/LMTD STD Rosemary Cartagena MD [address] [facility] [address] [place] [address] Referral ID Status Reason Start Date Expiration Date Visits Requested Visits Authorized [id number] Pending Review Perform Procedure 3 08/29/2024 1 1 Specialty Diagnoses / Procedures Referred By Contac t Referred To Contact Cardiology Diagnoses ICD (implantable cardioverter-defibrillator) in place Ischemic cardiomyopathy Rosemary Cartagena MD [address] [facility] [address] [place] [address] Referral ID Status Reason Start Date Expiration Date Visits Requested Visits Authorized [id number] Authorized Specialty Services Required 3 08/29/2024 1 1 Specialty Diagnoses / Procedures Referred By Contac t Referred To Contact Diagnoses ICD (implantable cardioverter-defibrillator) in place Permanent atrial fibrillation (CMS/HCC) Procedures ECG 12 Lead Rosemary Cartagena MD 254 [facility] [address] [place] [address] Referral ID Status Reason Start Date Expiration Date V isits Requested Visits Authorized [id number] Pending Review 08/30/2023 08/29/2024 1 1 Specialty Diagnoses / Procedures Referred By Contac t Referred To Contact Cardiology Diagnoses Permanent atrial fibrillation (CMS/HCC) Ischemic cardiomyopathy Procedures Follow Up In Cardiology Rosemary Cartagena MD [address] [facility] [address] [place] [address] Rosemary Cartagena MD [address] [facility] [address] [place] [address] Referral ID Status Reason Start Date Expiration Date V isits Requested Visits Authorized [id number] Authorized 08/30/2023 08/29/2024 1 1 Specialty Diagnoses / Procedures Referred By Contac t Referred To Contact Physical Therapy Diagnoses Gait difficulty Balance problem Procedures MA OFFICE/OUTPATIENT NEW HIGH MDM 60 MINUTES Viky Rollins PA [address] [place] [address] Referral ID Status Reason Start Date Expiration Date Visits Requested Visits Authorized [id number] Authorized Specialty Services Required 06/14/2024 12/11/2024 10 10 Specialty Diagnoses / Procedures Referred By Contac t Referred To Contact Radiology Diagnoses Hyperreflexia Balance problem Procedures CT cervical spine wo IV contrast Viky Rollins PA [address] [place] [address] [facility] Scheduling [address] [address] Referral ID Status Reason Start Date Expiration Date Visits Re quested Visits Authorized [id number] Closed 06/13/2024 12/10/2024 1 1 Specialty Diagnoses / Procedures Referred By Godwin t Referred To Contact Radiology Diagnoses Gait difficulty Balance problem Procedures CT head wo IV contrast Viky Rollins PA [address] [place] [address] [facility] Scheduling [address] [place] [address] Referral ID Status Reason Start Date Expiration Date Visits Re quested Visits Authorized [id number] Closed 06/13/2024 12/10/2024 1 1 Chief Complaint [...] r26.89 Reason for Visit Exocrine pancreatic insufficiency Chief Complaint Admit Date z95.810 i25.5 December 20, 2024 11:1 0am Additional Source Comments (unrecognized sect ion and content) No Status Records FoundNo Status Records FoundNo Status Records FoundNo Status Records FoundNo Status Records FoundNo Status Records FoundNo Status Records FoundNo Status Records FoundNo Status Records FoundNo Status Records Found INFORMATION SOURCE (unrecogn ized section and content) DATE CREATED AUTHOR 03/02/2018 [facility] DATE CREATED AUTHOR AUTHOR'S ORGANIZ ATION 06/26/2019 [facility] DATE CREATED AUTHOR AUTHOR'S ORGANIZ ATION 09/04/2022 [facility] DATE CREATED AUTHOR AUTHOR'S ORGANIZ ATION 06/01/2024 [facility] DATE CREATED AUTHOR AUTHOR'S ORGANIZ ATION 11/06/2024 [facility] DATE CREATED AUTHOR AUTHOR'S ORGANIZ ATION 12/05/2024 [facility] DATE CREATED AUTHOR AUTHOR'S ORGANIZ ATION 12/24/2024 [facility] DATE CREATED AUTHOR AUTHOR'S ORGANIZ ATION 12/30/2024 [facility] DATE CREATED AUTHOR AUTHOR'S ORGANIZ ATION 02/07/2025 [facility] DATE CREATED AUTHOR AUTHOR'S ORGANIZ ATION 02/08/2025 [facility] Reason for Visit (unrecogniz ed section and content) Status Reason Specialty Diagnoses / Procedures Referre d By Contact Referred To Contact Diagnoses S/P ICD (internal cardiac defibrillator) procedure clinical laboratory director Procedures clinical laboratory director Raúl Vale MD [address] [place], [place] [facility] Reason Comments New Patient Visit Re-establish Specialty Diagnoses / Procedures Referred By Godwin t Referred To Contact Diagnoses ICD (implantable cardioverter-defibrillator) in place Permanent atrial fibrillation (CMS/HCC) Procedures ECG 12 Lead Rosemary Cartagena MD [address] [address] Referral ID Status Reason Start Date Expiration Date V isits Requested Visits Authorized [id number] Pending Review 08/30/2023 08/29/2024 1 1 Specialty Diagnoses / Procedures Referred By Yingac t Referred To Contact Cardiology Diagnoses Abnormal EKG Sleep apnea, unspecified type Permanent atrial fibrillation (CMS/HCC) Shortness of breath Procedures Transthoracic Echo (TTE) Complete MA ECHO TRANSTHORC R-T 2D W/WO M-MODE REC F-UP/LMTD MA DOP ECHOCARD COLOR FLOW VELOCITY MAPPING MA DOP ECHOCARD PULSE WAVE W/SPECTRAL F-UP/LMTD STD Rosemary Cartagena MD 254 [facility] [address] [place] [address] Referral ID Status Reason Start Date Expiration Date Visits Requested Visits Authorized [id number] Pending Review Perform Procedure 08/29/2024 1 1 Reason Comments Follow-up 8 week Specialty Diagnoses / Procedures Referred By Godwin t Referred To Contact Cardiology Diagnoses Permanent atrial fibrillation (CMS/HCC) Ischemic cardiomyopathy Procedures Follow Up In Cardiology Rosemary Cartagena MD 254 [facility] [address] [place] [address] Rosemary Cartagena MD 254 [facility] [address] [place] [address] Referral ID Status Reason Start Date Expiration Date V isits Requested Visits Authorized [id number] Authorized 08/30/2023 08/29/2024 1 1 Reason Comments Follow-up 6 week per GM Specialty Diagnoses / Procedures Referred By Godwin t Referred To Contact Cardiology Diagnoses Permanent atrial fibrillation (CMS/HCC) Ischemic cardiomyopathy ICD (implantable cardioverter-defibrillator) in place 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 Procedures Follow Up In Cardiology Rosemary Cartagena MD [address] [place] [address] Saira Heart, KIER TENDER-STUDY HALL SUPERVISOR [address] [facility] 2, [address] [place] [address] Referral ID Status Reason Start Date Expiration Date V isits Requested Visits Authorized [id number] Authorized 10/25/2023 10/24/2024 1 1 Reason Comments Follow-up 2w Specialty Diagnoses / Procedures Referred By Contac t Referred To Contact Cardiology Diagnoses Ischemic cardiomyopathy Procedures Follow Up In Cardiology Saira Heart, KIER TENDER-STUDY HALL SUPERVISOR [address] [facility] 2, [address] [address] Referral ID Status Reason Start Date Expiration Date V isits Requested Visits Authorized [id number] Authorized 12/06/2023 12/05/2024 1 1 Reason Comments Back Pain Memory Loss Reason Comments Back Pain Parkinson's Disease Reason Comments Follow-up 3 month Specialty Diagnoses / Procedures Referred By Contac t Referred To Contact Cardiology Diagnoses Congestive heart failure, NYHA class 3, chronic, systolic Procedures Follow Up In Cardiology Rosemary Cartagena MD [address] [place] [address] Phone: tel: fax: Rosemary Cartagena MD [address] [place] [address] Phone: tel: fax: Referral ID Status Reason Start Date Expiration Date V isits Requested Visits Authorized [id number] Authorized 04/24/2024 04/24/2025 1 1 Reason Comments Follow-up 4m with sp Specialty Diagnoses / Procedures Referred By Godwin t Referred To Contact Cardiology Diagnoses Permanent atrial fibrillation (Multi) Ischemic cardiomyopathy ICD (implantable cardioverter-defibrillator) in place 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 Procedures Follow Up In Cardiology Rosemary Cartagena MD [address] [place] [address] Rosemary Cartagena MD [address] [place] [address] Referral ID Status Reason Start Date Expiration Date V isits Requested Visits Authorized [id number] Authorized 10/25/2023 10/24/2024 1 1 Reason Comments Follow-up Symptoms Reason Comments Hospital Follow-up S/p watchman 02.07.2 5 Reason Comments Parkinson's Disease Care Teams (unrecognized sec tion and content) Team Status: Active Member Role Status Dates Shanique Anderson DO Primary Care Provider Active Team Status: Inactive Member Role Status Dates Shanique Anderson DO Primary Care Provider, Attending Hilary rockwell Active On Site Coordinator Relationship Specialty Start Date End Date Shanique Anderson DO [address] [place] [address] PCP - General Family Medicine 08/30/23 Team Status: Inactive Member Role Status Dates Shanique Anderson DO Primary Care Provider Active Rosemary Cartagena MD Attending Provider Active On Site Coordinator Relationship Specialty Start Date End Date Shanique Anderson DO [address] [place] [address] PCP - General Family Medicine 08/30/23 On Site Coordinator Relationship Specialty Start Date End Date Shanique Anderson, [address] [place] [address] PCP - General Family Medicine 08/30/23 Team Status: Inactive Member Role Status Dates Shanique Anderson DO Primary Care Provider Active Start: December 03, 2023 End: December 03, 2023 Rosemary Cartagena MD Attending Provider Active Star t: December 03, 2023 End: December 03, 2023 On Site Coordinator Relationship Specialty Start Date End Date Shanique Anderson DO [address] [place] [address] PCP - General Family Medicine 08/30/23 On Site Coordinator Relationship Specialty Start Date End Date Shanique Anderson DO [address] [place] [address] PCP - General Family Medicine 08/30/23 Team Status: Inactive Member Role Status Dates Shanique Anderson Primary Care Provider Active Start: February 18, 2024 End: February 18, 2024 Viky Rollins PA-C Attending Provider Active Sta rt: February 18, 2024 End: February 18, 2024 Saira Heart APRN Other Provider Active Start : [...] Inactive Member Role Status Dates Shanique Anderson Primary Care Provider Active Start: June 07, 2024 End: June 07, 2024 Rosemary Cartagena MD Attending Provider Active Star t: June 07, 2024 End: June 07, 2024 On Site Coordinator Relationship Specialty Start Date End Date Unallocated, MD Andrew Sharpe0 [place] [address] PCP - General Family Medicine 12/06/23 Viky Rollins PA [address] [facility] [address] [place] [address] Physician Dispatcher Service Neurology 12/06/23 On Site Coordinator Relationship Specialty Start Date End Date Unallocated, MD Selvin Sharpe [place] [address] PCP - General Family Medicine 12/06/23 Viky Rollins PA [address] [address] Physician Dispatcher Service Neurology 12/06/23 Team Status: Active Member Role Status Dates Shanique Anderson DO Primary Care Provider Active Start: June 07, 2024 Rosemary Cartagena MD Other Provider Active Start: Hunter vasquezfátima 2023 Tex Carranza MD Attending Provider Active Start: June 07, 2024 Team Status: Inactive Member Role Status Dates Shanique Anderson DO Primary Care Provider Active Start: June 29, 2024 End: June 29, 2024 Viky Rollins PA-C Attending Provider Active Sta rt: June 29, 2024 End: June 29, 2024 On Site Coordinator Relationship Specialty Start Date End Date Unallocated, William Vaughan MD [address] [place] [address] PCP - General Family Medicine 12/06/23 Viky Rollins PA [address] [address] Physician Dispatcher Service Neurology 12/06/23 On Site Coordinator Relationship Specialty Start Date End Date Unallocated, William Vaughan MD [address] [place] [address] PCP - General Family Medicine 12/06/23 Viky Rollins PA [address] [address] Physician Dispatcher Service Neurology 12/06/23 On Site Coordinator Relationship Specialty Start Date End Date Shanique Anderson DO [address] [place] [address] PCP - General Family Medicine 08/30/23 On Site Coordinator Relationship Specialty Start Date End Date Shanique Anderson MD [address] [place] [address] PCP - General Family Medicine 08/24/24 Viky Rollins PA [address] [place] [address] [place] [address] Physician Dispatcher Service Neurology 12/06/23 On Site Coordinator Relationship Specialty Start Date End Date JustinShanique, DO [address] [place] [address] PCP - General Family Medicine 08/30/23 On Site Coordinator Relationship Specialty Start Date End Date Shanique Anderson MD [address] [place] [address] PCP - General Family Medicine 08/24/24 Viky Rollins PA [address] [address] Physician Dispatcher Service Neurology 12/06/23 On Site Coordinator Relationship Specialty Start Date End Date Shanique Anderson, DO [address] [place] [address] PCP - General Family Medicine 08/30/23 On Site Coordinator Relationship Specialty Start Date End Date JustinShanique Shraddhaaditya Weaver, DO [address] [place] [address] PCP - General Family Medicine 08/30/23 On Site Coordinator Relationship Specialty Start Date End Date JustinShanique Shraddhaaditya Weaver, DO [address] [place] [address] PCP - General Family Medicine 08/30/23 On Site Coordinator Relationship Specialty Start Date End Date Shanique Anderson, DO [address] [place] [address] PCP - General Family Medicine 08/30/23 On Site Coordinator Relationship Specialty Start Date End Date Shanique Anderson, DO [address] [place] [address] PCP - General Family Medicine 08/30/23 On Site Coordinator Relationship Specialty Start Date End Date Shanique Anderson, [address] [place] [address] PCP - General Family Medicine 08/30/23 Susannah Palomares LPN Care Microstrategy Architect Developer 10/23/24 On Site Coordinator Relationship Specialty Start Date End Date Shanique Anderson MD [address] [facility] [place] [address] PCP - General Family Medicine 08/24/24 Viky Rollins PA [address] [place], [place] [address] Physician Dispatcher Service Neurology 12/06/23 Karen Woo DO [address] [place] [address] Referring Physician Neurology 11/09/24 On Site Coordinator Relationship Specialty Start Date End Date Shanique Anderson MD [address] [facility] [place] [address] PCP - General Family Medicine 08/24/24 Viky Rollins PA [address] [place] [address] Physician Dispatcher Service Neurology 12/06/23 Karen Woo DO [address] [place] [address] Referring Physician Neurology 11/09/24 On Site Coordinator Relationship Specialty Start Date End Date Shanique Anderson MD [address] [place] [address] PCP - General Family Medicine 08/24/24 Viky Rollins PA [address] [place] [address] Physician Dispatcher Service Neurology 12/06/23 Karen Woo DO [address] [place] [address] Referring Physician Neurology 11/09/24 Team Status: Inactive Member Role Status Dates Shanique Anderson DO Primary Care Provider Active Start: December 20, 2024 End: December 20, 2024 Tex Carranza MD Attending Provider Active Start: December 20, 2024 End: December 20, 2024 On Site Coordinator Relationship Specialty [place] [address] [place] [phone] PCP - General Family Medicine 08/24/24 Viky Rollins PA [address] [place] [address] Physician Dispatcher Service Neurology 12/06/23 Karen Woo DO [address] [place] [address] Referring Physician Neurology 11/09/24 Goals (unrecognized section and content) Goals may be documented in a n alternate section Scheduled Active and Recently Administ ered Medications (unrecognized section and content) Medication Order 10/19/2024 10/20/2024 10/21/2024 aspirin chewable tablet 324 mg (COMPLETED) 324 mg, oral, Once, On Wed10/20/24 at 1315, For 1 dose, Preprocedure 1621 (Given - Provider: Pearl Carter RN - Comment: procedure delayed) aspirin EC tablet 81 mg 81 mg, oral, Daily, First dose on Wed10/21/24 at 0900, Phase II/On Unit, Do not crush, chew, or split. 0857 (Given - Provid er: Mari Martínez RN) busPIRone (Buspar) tablet 5 mg 5 mg, oral, 2 times daily, First dose on Wed10/20/24 at 2100 2257 (Given - Provider: Dominique [place] RN) 0857 (Given - Provider: Mari Martínez RN)2100 (Due) carbidopa-levodopa (Sinemet) 10-100 mg per tablet 1 tablet 1 tablet, oral, 2 times daily, First dose on Wed10/20/24 at 2100 2257 (Given - Provider: Dominique [place] RN) 0857 (Given - Provider: Mari Martínez RN)2100 (Due) carvedilol (Coreg) tablet 3.125 mg 3.125 mg, oral, 2 times daily (morning and late afternoon), First dose on Wed10/20/24 at 1700 2256 (Given - Provider: Dominique [place] RN) 0857 (Given - Provider: Mari Martínez RN)1700 (Due) ceFAZolin (Ancef) 2 g in dextrose (iso) IV 50 mL (COMPLETED) 2 g, intravenous, at 100 mL/hr, Administer over 30 Minutes, Once, On Wed10/20/24 at 1315, For 1 dose, Preprocedure, Administer within 60 minutes prior to incision. Duplex bag - activate before hanging., Dosing of this medication varies based on severity of illness. Does this patient have sepsis or concern for sepsis (probable or documented infection plus systemic manifestations of infection)? No, Suspected Indication (Select all that apply): Surgical Prophylaxis, Indications: Surgical Prophylaxis 1315 (Due)1728 (New Bag - Provider: Shiela Alarcon RN) clopidogrel (Plavix) tablet 75 mg 75 mg, oral, Daily, First dose on 10/21/24 at 0900, For 180 days, Phase II/On Unit 0857 (Given - Provid er: Mari Martínez RN) digoxin (Lanoxin) tablet 125 mcg 125 mcg, oral, Daily, First dose on 10/21/24 at 0900 0857 (Given - Provid er: Mari Martínez RN) docusate sodium (Colace) capsule 100 mg 100 mg, oral, 2 times daily, First dose on Wed10/20/24 at 2100, Phase II/On Unit, Bowel Regimen - for prevention of constipation Hold for loose stools 2300 (Not Given - Provider: Dominique Forrest RN - Reason: Patient/family refused) 0918 (Not Given - Provider: Mari Martínez RN - Reason: Patient/family refused)2100 (Due) magnesium oxide (Mag-Ox) tablet 400 mg 400 mg (rounded from 420 mg), oral, Daily, First dose on 10/21/24 at 0900 0857 (Given - Provid er: Mari Martínez RN) memantine (Namenda) tablet 10 mg 10 mg, oral, 2 times daily, First dose on 10/21/24 at 0900 0918 (Not Given - Provider: Mari Martínez RN - Reason: Patient/family refused)2100 (Due) oxybutynin (Ditropan) tablet 5 mg 5 mg, oral, 3 times daily, First dose on 10/21/24 at 0900 0918 (Not Given - Provider: Mari Martínez RN - Reason: Patient/family refused)1500 (Due)2100 (Due) pancrelipase (Kuh-Xglg-Jplw) (Creon) 36,000-114,000- 180,000 unit per capsule 3 capsule 3 capsule, oral, 3 times daily (morning, midday, late afternoon), First dose on 10/21/24 at 0800, Administer whole with food and sufficient fluid; do not crush or chew. Contents may be sprinkled on soft acidic food (such as applesauce or bananas) if swallowed immediately without chewing. If ordered per G-tube, thoroughly mix capsule contents into acidic food (applesauce or bananas). Stir gently; do not crush spheres. Within 15 minutes of mixing, give via a 35 mL slip-tip syringe into a 16F or larger diameter tube, then flush with ~10 mL of water. 0857 (Given - Provid er: Mari Martínez RN)1303 (Not Given - Provider: Mari Martínez RN - Reason: Patient/family refused)1700 (Due) pantoprazole (ProtoNix) EC tablet 40 mg(Linked Group 1) 40 mg, oral, Daily before breakfast, First dose on 10/21/24 at 0700, Phase II/On Unit, Do not crush, chew, or split. 0704 (Not Given - Provider: Dominique Forrest RN - Reason: Patient/family refused) pantoprazole (ProtoNix) injection 40 mg(Linked Group 1) 40 mg, intravenous, Administer over 2 Minutes, Daily before breakfast, First dose on 10/21/24 at 0700, Phase II/On Unit, Give if unable to take by mouth. 0704 (See Alternativ e - Provider: Dominique Forrest RN) PARoxetine (Paxil) tablet 20 mg 20 mg, oral, Every morning, First dose on 10/21/24 at 0900 0857 (Given - Provid er: Mari Martínez RN) perflutren lipid microspheres (Definity) injection 0.5-10 mL of dilution 0.5-10 mL of dilution, intravenous, Once in imaging, Starting on Wed10/20/24 at 1935, For 1 dose, CV Medications, Contrast - for use by imaging provider only. Prior to administration, Definity product must be activated. First, bring vial to room temperature. Then, shake vial for 45 seconds. Do not use if the 45 second activation cycle has not been completed. Following activation, the product will appear as a milky white suspension and may be used immediately. If not used within 5 minutes of activation, re-suspend by inverting and shaking the vial for 10 seconds. Discard unused product. Administration: Dilute 1.3 mL of activated DEFINITY with 8.7 mL of normal saline in a 10 mL syringe. Inject 0.5 mL of diluted DEFINITY when notified the images/film are unclear to enhance view of Left Ventricular borders. Repeat 0.5 mL of DEFINITY until clear images are obtained, not to exceed 10 mLs. Once images are obtained or limit of medication is reached, flush line with 10 mL of Normal Saline. sacubitriL-valsartan (Entresto) 24-26 mg per tablet 1 tablet 1 tablet, oral, 2 times daily, First dose on Wed10/21/24 at 0900, Contraindicated in combination with NAHOMI inhibitors. Ensure a minimum of 36 hours between any NAHOMI inhibitor dose and sacubitril-valsartan. 0857 (Given - Provid er: Mari Martínez RN)2099 (Due) tamsulosin (Flomax) 24 hr capsule 0.4 mg 0.4 mg, oral, Nightly, First dose on Wed10/20/24 at 2100, Give 30 minutes after the same mealtime each day. Capsules should be swallowed whole; do not crush, chew, or open. 225 (Given - Provider: Dominique Forrest RN) 2099 (Due) traZODone (Desyrel) tablet 25 mg 25 mg, oral, Nightly, First dose on Wed10/20/24 at 2100 225 (Given - Provider: Dominique Forrest RN) 2099 (Due) PRN Medication Order 10/19/2024 10/20/2024 10/21/2024 acetaminophen (Tylenol) oral liquid 650 mg(Linked Group 2) 650 mg, oral, Every 6 hours PRN, pain mild (1-3), first line, Starting on Wed10/20/24 at 1430, Phase II/On Unit, Give oral liquid if patient prefers or per feeding tube if present. If inadequate response within 60 minutes, proceed to next-line agent for same PRN reason or contact provider if no further options ordered. acetaminophen (Tylenol) suppository 650 mg(Linked Group 2) 650 mg, rectal, Every 6 hours PRN, pain mild (1-3), first line, Starting on Wed10/20/24 at 1430, Phase II/On Unit, Give rectally if unable to administer by mouth or feeding tube. If inadequate response within 60 minutes, proceed to next-line agent for same PRN reason or contact provider if no further options ordered., If ordered PRN for pain, nurse is permitted to administer this medication for higher pain scores based on patient preference? Yes acetaminophen (Tylenol) tablet 650 mg(Linked Group 2) 650 mg, oral, Every 6 hours PRN, pain mild (1-3), first line, Starting on Wed10/20/24 at 1430, Phase II/On Unit, If inadequate response within 60 minutes, proceed to next-line agent for same PRN reason or contact provider if no further options ordered., If ordered PRN for pain, nurse is permitted to administer this medication for higher pain scores based on patient preference? Yes diazePAM (Valium) tablet 2 mg 2 mg, oral, Nightly PRN, Anxiety, Starting on Wed10/20/24 at 2017 fentaNYL PF (Sublimaze) injection (CANCELED) As needed, Starting on Wed10/20/24 at 1729, Intraprocedure 1729 (Given - Provider: Shiela Alarcon RN) heparin 1,000 unit/mL injection (CANCELED) As needed, Starting on Wed10/20/24 at 1737, Intraprocedure 1737 (Given - Provider: Carol Mcgraw RN)1803 (Given - Provider: Shiela Alarcon RN) iohexol (OMNIPaque) 350 mg iodine/mL solution (CANCELED) As needed, Starting on Wed10/20/24 at 1814, Intraprocedure 1814 (Given - Provider: Fabiano Pickering MD) lidocaine PF (Xylocaine) 10 mg/mL (1 %) injection (CANCELED) As needed, Starting on Wed10/20/24 at 1731, Intraprocedure 1731 (Given - Provider: Fabiano Pickering MD - Comment: Right Groin) lidocaine-epinephrine (Xylocaine W/EPI) 2 %-1:100,000 injection 5 mL 5 mL, subcutaneous, Once as needed, to oozing access site, Starting on Wed10/20/24 at 1430, For 1 dose, Phase II/On Unit, Inject at site of bleed midazolam (Versed) injection (CANCELED) As needed, Starting on Wed10/20/24 at 1728, Intraprocedure 1728 (Given - Provider: Shiela Alarcon RN) ondansetron (Zofran) injection 4 mg(Linked Group 3) 4 mg, intravenous, Every 8 hours PRN, nausea/vomiting, first line, Starting on Wed10/20/24 at 1430, Phase II/On Unit, 1st Line. Give IV if patient is unable to take orally. If inadequate response within 60 minutes, proceed to next-line agent for same PRN reason or contact provider if no further options ordered. When administering via IV Push, administer over 3-5 minutes. ondansetron ODT (Zofran-ODT) disintegrating tablet 4 mg(Linked Group 3) 4 mg, oral, Every 8 hours PRN, nausea/vomiting, first line, Starting on Wed10/20/24 at 1430, Phase II/On Unit, 1st Line. Patient should allow tablet to dissolve on tongue. Do not remove from blister pack until just before administering. If inadequate response within 60 minutes, proceed to next-line agent for same PRN reason or contact provider if no further options ordered. protamine injection (COMPLETED) Continuous PRN, Starting on Wed10/20/24 at 1815, Intraprocedure 1815 (New Bag - Provider: Shabnam Alarcon RN) traMADol (Ultram) tablet 50 mg 50 mg, oral, Every 6 hours PRN, pain moderate (4-6), first line, Starting on Wed10/20/24 at 1430, Phase II/On Unit, If ordered PRN for pain, nurse is permitted to administer this medication for higher pain scores based on patient preference? Yes Linked Groups Order Group 1: pantoprazole (ProtoNix) EC tablet 40 mgJump to med 40 mg, oral, Daily before breakfast, First dose on 10/21/24 at 0700, Phase II/On Unit, Do not crush, chew, or split. Or pantoprazole (ProtoNix) injection 40 mgJump to med 40 mg, intravenous, Administer over 2 Minutes, Daily before breakfast, First dose on 10/21/24 at 0700, Phase II/On Unit, Give if unable to take by mouth. Group 2: acetaminophen (Tylenol) tablet 650 mgJump to med 650 mg, oral, Every 6 hours PRN, pain mild (1-3), first line, Starting on Wed10/20/24 at 1430, Phase II/On Unit, If inadequate response within 60 minutes, proceed to next-line agent for same PRN reason or contact provider if no further options ordered., If ordered PRN for pain, nurse is permitted to administer this medication for higher pain scores based on patient preference? Yes Or acetaminophen (Tylenol) oral liquid 650 mgJump to med 650 mg, oral, Every 6 hours PRN, pain mild (1-3), first line, Starting on Wed10/20/24 at 1430, Phase II/On Unit, Give oral liquid if patient prefers or per feeding tube if present. If inadequate response within 60 minutes, proceed to next-line agent for same PRN reason or contact provider if no further options ordered. Or acetaminophen (Tylenol) suppository 650 mgJump to med 650 mg, rectal, Every 6 hours PRN, pain mild (1-3), first line, Starting on Wed10/20/24 at 1430, Phase II/On Unit, Give rectally if unable to administer by mouth or feeding tube. If inadequate response within 60 minutes, proceed to next-line agent for same PRN reason or contact provider if no further options ordered., If ordered PRN for pain, nurse is permitted to administer this medication for higher pain scores based on patient preference? Yes Group 3: ondansetron ODT (Zofran-ODT) disintegrating tablet 4 mgJump to med 4 mg, oral, Every 8 hours PRN, nausea/vomiting, first line, Starting on Wed10/20/24 at 1430, Phase II/On Unit, 1st Line. Patient should allow tablet to dissolve on tongue. Do not remove from blister pack until just before administering. If inadequate response within 60 minutes, proceed to next-line agent for same PRN reason or contact provider if no further options ordered. Or ondansetron (Zofran) injection 4 mgJump to med 4 mg, intravenous, Every 8 hours PRN, nausea/vomiting, first line, Starting on Wed10/20/24 at 1430, Phase II/On Unit, 1st Line. Give IV if patient is unable to take orally. If inadequate response within 60 minutes, proceed to next-line agent for same PRN reason or contact provider if no further options ordered. When administering via IV Push, administer over 3-5 minutes. FOR RECORDS PERTAINING TO PATIENTS WHO ARE [...] BE BASED ON THE PRIMARY CLINICAL RECORDS. [facility] [employer] [facility]. provides no warranty or guarantee of the accuracy or completeness of information in this document.
--- OUTSIDE RECORDS SUMMARY | 2025-02-10 12:47 | XMS_ITS | Encounter Summary ---
Author Organization [facility] tem Address [id number] [address] [place] [address] Care Team Providers Care System Programmer Name Role Phone Maicol Anderson DO Primary Care Provider [phone] Encounter Details Date Type Department Care Team (Late st Contact Info) Description 03/04/2016 [facility] [address] [phone] Kathy Christine RN Social History Tobacco Use Types Packs/Day Years Used Date Smoking Tobacco: Never Assessed Sex and Gender Information Value Date Recorded Sex Assigned at Not on file Legal Sex Male 2:31 PM EDT Gender Identity Not on file Sexual Orientation Not on file documented as of this encounter Plan of Treatment Not on file documented as of this encounter Visit Diagnoses Not on filedocumented in this encounter Care Teams System Programmer Relationship Specialty Start Date End Date Maicol Anderson DO [address] [place] [address] PCP - General 02/28/16 documented as of this encounter
--- OUTSIDE RECORDS SUMMARY | 2025-02-10 12:47 | XMS_ITS | Encounter Summary ---
Author Organization [facility] Address [address] [place] [address] Phone Care Team Providers Care Electroencephalograph Technologist Name Role Phone Maicol Anderson Primary Care Prov ider Susannah Palomares SECURITY ROVER Unavailable Encounter Details Date Type Department Care Team (Late st Contact Info) Description 09/01/2024 Scanned Document [facility] [address] [place] [address] Scanning, Generic Provider Social History Tobacco Use Types Packs/Day Years Used Date Smoking Tobacco: Former Cigarettes Smokeless Tobacco: Never Alcohol Use Standard Drinks/Week Comments Yes 0 (1 standard drink = 0.6 oz pur e alcohol) 1 YEARLY Sex and Gender Information Value Date Recorded [...] suspected to have Coronavirus/COVID-19? No / Unsure 09/01/2024 2:05 PM EST documented as of this encounter Plan of Treatment Upcoming Encounters Date Type Department Care Team (Late st Contact Info) Description 02/16/2025 12:45 PM EDT Hospital Encounter [address] [place] [address] 07/30/2025 2:45 PM EST Office Visit [facility] [address] [facility] [address] [place] [address] Rosemary Cartagena MD [address] [facility] [address] [place] [address] documented as of this encounter Procedures Procedure Name Priority Date/Time Associated Diagnosis Comments OUTSIDE LAB SCAN 09/01/2024 OUTSIDE LAB SCAN 09/01/2024 OUTSIDE LAB SCAN 09/01/2024 documented in this encounter Results * OUTSIDE LAB SCAN (09/01/2024) Narrative 09/01/2024 Ordered by an unspecified provider. us Generic Provider Scanning OUTSIDE SCAN Final Result * OUTSIDE LAB SCAN (09/01/2024) Narrative 09/01/2024 Ordered by an unspecified provider. us Generic Provider Scanning OUTSIDE SCAN Final Result * OUTSIDE LAB SCAN (09/01/2024) Narrative 09/01/2024 Ordered by an unspecified provider. us Generic Provider Scanning OUTSIDE SCAN Final Result documented in this encounter Visit Diagnoses Not on filedocumented in this encounter Additional Health Concerns Assessment Noted Time A fall risk assessment has been complete d for the patient 09/01/2024 2:20 PM EST documented as of this encounter Care Teams Electroencephalograph Technologist Relationship Specialty Start Date End Date Maicol Anderson DO [address] [place] [address] PCP - General Family Medicine 08/30/23 Susannah Palomares, SECURITY ROVER Cooking Casing And Drying SupervisorGang Supervisor Pipe Lines 10/23/24 01/18/25 documented as of this encounter
--- OUTSIDE RECORDS SUMMARY | 2025-02-10 12:47 | XMS_ITS | Encounter Summary ---
Author Organization [facility] Address [address] [facility] [place] [address] Care Team Providers Care Residential Leasing Agent Name Role Phone Viky Rollins Unavailable Maicol Anderson MD Primary Care Provider [phone] Karen Woo DO Unavailable [phone] Encounter Details Date Type Department Care Team (Late st Contact Info) Description 01/31/2025 Bamboo flowsheet [facility] [address] [place] [phone] Viky Rollins PA [address] [place] [address] Social History Tobacco Use Types Packs/Day Years Used Date Smoking Tobacco: Never Smokeless Tobacco: Never Alcohol Use Standard Drinks/Week Comments Never 0 [...] on filedocumented in this encounter Care Teams Residential Leasing Agent Relationship Specialty Start Date End Date Maicol Anderson MD [address] [facility] [place] [address] PCP - General Family Medicine 08/24/24 Viky Rollins PA [address] [place] [address] Physician Record Changer Assembler Neurology 12/06/23 Karen Woo DO [address] [place] [address] Referring Physician Neurology 11/09/24 documented as of this encounter
--- OUTSIDE RECORDS SUMMARY | 2025-02-10 12:47 | XMS_ITS | Encounter Summary ---
Author Organization [facility] Address [address] [place] [address] Phone Care Team Providers Care Turkey Cleaner Name Role Phone Maicol Anderson Primary Care Prov ider Susannah Palomares PRODUCTION TECHNOLOGIST Unavailable Encounter Details Date Type Department Care Team (Late st Contact Info) Description 09/10/2023 Scanned Document [facility] [address] [place] [address] Scanning, Generic Provider Social History [...] suspected to have Coronavirus/COVID-19? No / Unsure 09/02/2023 1:21 PM EST documented as of this encounter Plan of Treatment Upcoming Encounters Date Type Department Care Team (Late st Contact Info) Description 02/16/2025 12:45 PM EDT Hospital Encounter [address] [place] [address] 07/30/2025 2:45 PM EST Office Visit [facility] [address] [facility] [address] [place] [address] Rosemary Cartagena MD [address] [facility] [address] [place] [address] documented as of this encounter Procedures Procedure Name Priority Date/Time Associated Diagnosis Comments ELECTROCARDIOGRAM 12 LEAD 09/10/2023 documented in this encounter Results * ELECTROCARDIOGRAM (09/10/2023) Narrative 09/10/2023 Ordered by an unspecified provider. us Generic Provider Scanning ECG ORDERABLES Final Result documented in this encounter Visit Diagnoses Not on filedocumented in this encounter Additional Health Concerns Assessment Noted Time A fall risk assessment has been complete d for the patient 08/30/2023 10:49 AM EST documented as of this encounter Care Teams Turkey Cleaner Relationship Specialty Start Date End Date Maicol Anderson DO [address] [place] [address] PCP - General Family Medicine 08/30/23 Susannah Palomares, KAROL Dining Chair Seat Cushion TrimmerDirector Of Residential Services 10/23/24 01/18/25 documented as of this encounter
--- OUTSIDE RECORDS SUMMARY | 2025-02-10 12:47 | XMS_ITS | Encounter Summary ---
Author Organization [facility] Address [address] [place] [address] Phone Care Team Providers Care Event Producer Name Role Phone Maicol Anderson DO Primary Care Prov ider Susannah Palomares PLANNING SUPERVISOR Unavailable Encounter Details Date Type Department Care Team (Late st Contact Info) Description 09/02/2021 Orders Only [facility] [address] [place] [address] Conversion, Onbase Social History Tobacco Use Types Packs/Day Years Used Date Smoking Tobacco: Never Assessed Sex and Gender Information Value Date Recorded Sex Assigned at Male 10/20/2024 9:58 PM EST Legal Sex Male 7:09 PM EST Gender Identity Male 10/20/2024 9:58 PM EST Sexual Orientation Straight 10/20/2024 9: 58 PM EST documented as of this encounter Plan of Treatment Upcoming Encounters Date Type Department Care Team (Late Contact Info) Description 02/16/2025 12:45 PM EDT Hospital Encounter [address] [place] [address] 07/30/2025 2:45 PM EST Office Visit [address] [place] [address] Rosemary Cartagena MD [address] [facility] [address] [place], [place] [address] Scheduled Orders Name Type Priority Associated Diagnoses Orde r Schedule OUTSIDE LAB SCAN Lab Ordered: 09/02/2021 documented as of this encounter Visit Diagnoses Not on filedocumented in this encounter Care Teams Event Producer Relationship Specialty Start Date End Date Maicol Anderson DO [address] [place] [address] PCP - General Family Medicine 08/30/23 Susannah Palomares, KAROL Adjunct Psychology InstructorString Winding Machine Operator 10/23/24 01/18/25 documented as of this encounter
--- OUTSIDE RECORDS SUMMARY | 2025-02-10 12:47 | XMS_ITS | Encounter Summary ---
Author Organization [facility] Address [address] [place] [address] Phone Care Team Providers Care Piercer Operator Name Role Phone Maicol Anderson Primary Care Prov ider Susannah Palomares CARDIOTHORACIC PHYSIOTHERAPIST Unavailable Encounter Details Date Type Department Care Team (Late st Contact Info) Description 10/13/2024 Scanned Document [facility] [address] [place] [phone] Scanning, Generic Provider Social History Tobacco Use [...] was confirmed or suspected to have Coronavirus/COVID-19? Unable to assess 09/27/2024 8:16 AM EST documented as of this encounter Plan of Treatment Upcoming Encounters Date Type Department Care Team (Late st Contact Info) Description 02/16/2025 12:45 PM EDT Hospital Encounter [address] [place] [address] 07/30/2025 2:45 PM EST Office Visit [facility] [address] [facility] [address] [place] [address] Rosemary Cartagena MD [address] [facility] [address] [place] [address] documented as of this encounter Procedures Procedure Name Priority Date/Time Associated Diagnosis Comments OUTSIDE LAB SCAN 10/13/2024 documented in this encounter Results * OUTSIDE LAB SCAN (10/13/2024) Narrative 10/13/2024 Ordered by an unspecified provider. us Generic Provider Scanning OUTSIDE SCAN Final Result documented in this encounter Visit Diagnoses Not on filedocumented in this encounter Additional Health Concerns Assessment Noted Time A fall risk assessment has been complete d for the patient 09/01/2024 2:20 PM EST documented as of this encounter Care Teams Piercer Operator Relationship Specialty Start Date End Date Maicol Anderson DO [address] [place] [address] PCP - General Family Medicine 08/30/23 Susannah Palomares, KAROL Ophthalmic PathologistTaxi Proprietor 10/23/24 01/18/25 documented as of this encounter
--- OUTSIDE RECORDS SUMMARY | 2025-02-10 12:47 | XMS_ITS | Clinical Summary ---
Author Organization [facility] Address [address] [place], [place] [id number] Care Team Providers Care Criminal Justice Instructor Name Role Phone Unavailable Primary Care Provider Unavailabl e Allergies Active Allergy Reactions Criticality Noted Date Comments Fexofenadine Hcl Unknown 02/20/2016 Codeine Unknown 02/20/2016 Meperidine (Pf) Unknown 02/20/2016 Canagliflozin Unknown 02/20/2016 Medications rivastigmine (EXELON) 13.3 mg/24 hour patch Apply 1 Patch as directed once daily. Active niacin 500 mg CR capsule Take 1,000 mg by mouth daily at bedtime. Active POTASSIUM (POTASSIMIN ORAL) Take by mouth once daily. Active warfarin (COUMADIN) 3 mg tablet Take 3 mg by mouth daily as directed. Active lisinopril 2.5 mg tablet Take 2.5 mg by mouth once daily. Active digoxin 0.25 mg/5 mL (5 mL) soln Take by mouth once daily. Active aspirin, enteric coated (ASPIRIN, ENTERIC COATED) 81 mg EC tablet Take 81 mg by mouth once daily. Active furosemide (LASIX) 20 mg tablet Take 20 mg by mouth once daily. Active loratadine (CLARITIN) 10 mg tablet Take 10 mg by mouth once daily. Active tamsulosin ER (FLOMAX) 0.4 mg cp24 Take 0.4 mg by mouth once daily. Active gemfibrozil (LOPID) 600 mg tablet Take 600 mg by mouth twice daily. Active memantine XR (NAMENDA XR) 28 mg CSpX Take 28 mg by mouth once daily. Active vitamin e 1,000 unit capsule Take 1,000 Units by mouth three times daily. Active dextroamphetami ne-amphetamine (ADDERALL) 20 mg tablet Take 30 mg by mouth twice daily. Active CALCIUM CARBONATE/VITAM IN D3 (CALCIUM 500 + D, D3, ORAL) Take by mouth once daily. Active doxepin capsule 25 mg Take 25 mg by mouth daily at bedtime. Active clopidogrel (PLAVIX) 75 mg tablet Take 75 mg by mouth once daily. Active diazepam (VALIUM) 2 mg tablet Take 1 mg by mouth twice daily. Active cyproheptadine (PERIACTIN) 4 mg tablet Take 2 mg by mouth daily at bedtime. Active vilazodone (VIIBRYD) 10 mg Take 10 mg by mouth daily with breakfast. Active traMADol (ULTRAM) 50 mg tablet Take 50 mg by mouth every 4 hours as needed. Active INSULIN ASPART (NOVOLOG SUBCUTANEOUS) Inject subcutaneousl y. 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 Chronic anticoagulation Overview (02/20/2016): coumadin, asa, and plavix Family History * Patient is adopted Medical History Relation Comments Arthritis Brother Cancer Brother Heart Failure Brother Hypertension Brother Stroke Brother Diabetes Maternal Aunt Stroke Maternal Aunt Cancer Mother Heart Failure Mother Hypertension Mother Stroke Mother Cancer Sister Hypertension Sister Relation Status Comments Brother Maternal Aunt Mother Sister Social History Tobacco Use Types Packs/Day Years Used Date Smoking Tobacco: Former Cigarettes Alcohol Use Standard Drinks/Week Comments No 0 (1 standard drink = 0.6 oz pur e alcohol) Sex and Gender Information Value Date Recorded Sex Assigned at Not on file Legal Sex Male 2:05 PM EDT Gender Identity Not on file Sexual Orientation Not on file Occupation Industry Job Start Date Job End Date retired Not on file Not on file Not on file Last Filed Vital Signs Vital Sign Reading Time Taken Comments Blood Pressure 119/60 02/20/2016 12:38 PM EDT Pulse 95 02/20/2016 12:38 PM EDT Temperature - - Respiratory Rate 20 02/20/2016 12:3 8 PM EDT Oxygen Saturation - - Inhaled Oxygen Concentration - - Weight 83 kg (183 lb) 02/20/2016 12:38 PM EDT SELF REPORT HT/WT Height 170.2 cm (5' 7 ) 02/20/2016 12:3 8 PM EDT Body Mass Index 28.66 02/20/2016 12:38 PM EDT Plan of Treatment Health Maintenance Due Date Last Done Comments Anxiety Screening 1960 Depression Screening 1958 DTaP,Tdap,Td Vaccine (1 - Tdap) 1961 Diabetes Screening 12/19/1987 Pneumococcal Vaccine: 50+ (1 of 1 - PCV) 1992 Shingrix Vaccine (1 of 2) 1992 RSV Vaccine (1 - 1-dose 75+ series) 2017 Covid-19 Vaccine ( - season) 2024 Advance Directive Discussion 09/13/2024 Influenza Vaccine (Season Ended) 2025 07/14/20 11 Insurance MEDICARE [employer]
--- OUTSIDE RECORDS SUMMARY | 2025-02-10 12:47 | XMS_ITS | Encounter Summary ---
Author Organization [facility] Address [address] [place] [address] Phone Care Team Providers Care Stock Broker Supervisor Name Role Phone Maicol Anderson DO Primary Care Prov ider Encounter Details Date Type Department Care Team (Latest Contact Info) Description 02/02/2025 Travel Social History Tobacco Use Types Packs/Day Years [...] any time in the past 12 m [facility], were you homeless or living in a intermediate (including now)? No 10/21/2024 Sex and Gender [...] PM EDT documented as of this encounter Plan of Treatment Upcoming Encounters Date Type Department Care Team (Late st Contact Info) Description 02/16/2025 12:45 PM EDT Hospital Encounter [facility] [address] [facility] [address] [place] [address] 07/30/2025 2:45 PM EST Office Visit [facility] [address] [facility] [address] [place] [address] Rosemary Cartagena MD [address] [facility] [address] [place] [address] documented as of this encounter Visit Diagnoses Not on filedocumented in this encounter Additional Health Concerns Assessment Noted Time A fall risk assessment has been complete d for the patient 02/02/2025 2:31 PM EDT documented as of this encounter Care Teams Stock Broker Supervisor Relationship Specialty Start Date End Date Maicol Anderson DO [address] [place] [address] PCP - General Family Medicine 08/30/23 documented as of this encounter
--- OUTSIDE RECORDS SUMMARY | 2025-02-10 12:47 | XMS_ITS | Encounter Summary ---
Author Organization [facility] Address [address] [place], [place] [id number] Care Team Providers Care Cable Television Program Director Name Role Phone Maicol Anderson DO Primary Care Provider [phone] Pcp, Alysha SUPERVISOR LEAD BURNING Primary Care Provider Unavailabl e Source Comments In the event this information is protected by the Federal Confidentiality of Alcohol and Drug AbusePatient Records regulations: The Federal rules restrict any use of the information to criminally investigate or prosecute any alcohol or drug abuse patient.[facility] Encounter Details Date Type Department Care Team (Late st Contact Info) Description 02/19/2016 Abstract Neurosurgery [address] [place] [address] Dylan Morales Social History Tobacco Use Types Packs/Day Years [...] on filedocumented in this encounter Care Teams Cable Television Program Director Relationship Specialty Start Date End Date Maicol Anderson DO PCP - General Family Medicine 02/14/16 03/27/22 Pcp, No, MARISEL PCP - General 03/28/22 10/13/22 documented as of this encounter
--- OUTSIDE RECORDS SUMMARY | 2025-02-10 12:47 | XMS_ITS | Encounter Summary ---
Author Organization [facility] Address [address] [place] [address] Care Team Providers Care Dog Licenser Name Role Phone Viky Rollins Unavailable Maicol Anderson MD Primary Care Provider [phone] Karen Woo DO Unavailable [phone] Encounter Details Date Type Department Care Team (Late st Contact Info) Description 02/08/2025 Telephone [facility] [address] [place] [phone] Jhoan Sims MA Social History Tobacco Use Types Packs/Day Years [...] on file documented as of this encounter Miscellaneous Notes * Telephone Encounter - Jhoan Sims MA - 02/08/2025 12:42 PM EDT Patients calls stating patient has been having increased agitation the last week and a half. She is wanting to know if there is something they can have on hand medication hall should they need it. She wanted to mention Haldol is not an option for them. She also wanted to let you know they willpick up the Requip today. documented in this encounter Plan of Treatment Not on file documented as of this encounter Visit Diagnoses Not on filedocumented in this encounter Care Teams Dog Licenser Relationship Specialty Start Date End Date Maicol Anderson MD [address] [place] [address] PCP - General Family Medicine 08/24/24 Viky Rollins PA [address] [place] [address] Physician Airport Manager Neurology 12/06/23 Karen Woo DO [address] [place] [address] Referring Physician Neurology 11/09/24 documented as of this encounter
--- OUTSIDE RECORDS SUMMARY | 2025-02-10 12:47 | XMS_ITS | Encounter Summary ---
Author Organization [facility] Address [address] [place] [address] Phone Care Team Providers Care Propagation Manager Name Role Phone Maicol Anderson Primary Care Prov ider Encounter Details Date Type Department Care Team (Late st Contact Info) Description 02/06/2025 Telephone [place] [id number] [address] Heaven Shah LPN Social History Tobacco Use Types Packs/Day Years [...] in the past [address] [facility], were you homeless or living in a fci (including now)? No 10/21/2024 Sex and Gender [...] PM EDT documented as of this encounter Miscellaneous Notes * Telephone Encounter - Heaven Shah LPN - 02/06/2025 9:50 AM EDT Phoned with update. Verbalized understanding. Requesting a dig level to be drawn due to increased fatigue. Patient sleep all day and night. Please advise. To Dr. Rosemary Cartagena MD * Telephone Encounter - Heaven Shah LPN - 02/06/2025 9:48 AM EDT ----- Message from Rosemary Cartagena sent at 02/02/2025 6:52 PM EDT ----- Patient will complete 6 months of dual antiplatelet therapy by end of April 2025. After that he can go to enteric-coated aspirin 81 mg daily and stop the Plavix. Please let his know? Thank you documented in this encounter Plan of Treatment Upcoming Encounters Date Type Department Care Team (Late st Contact Info) Description 02/16/2025 12:45 PM EDT Hospital Encounter [facility] [address] [facility] [address] [place] [address] 07/30/2025 2:45 PM EST Office Visit [facility] [address] [facility] [address] [place] [address] Rosemary Cartagena MD [address] [facility] [address] [place] [address] documented as of this encounter Visit Diagnoses Diagnosis Ischemic cardiomyopathy Other specified forms of chronic ischemic heart disease documented in this encounter Additional Health Concerns Assessment Noted Time A fall risk assessment has been complete d for the patient 02/02/2025 2:31 PM EDT documented as of this encounter Care Teams Propagation Manager Relationship Specialty Start Date End Date Maicol Anderson DO [address] [place] [address] PCP - General Family Medicine 08/30/23 documented as of this encounter
--- OUTSIDE RECORDS SUMMARY | 2025-02-10 12:48 | XMS_ITS | Clinical Summary ---
Author Organization [facility] Address [address] [place] [address] Care Team Providers Care Recreational Aide Name Role Phone Viky Rollins Unavailable Maicol Anderson MD Primary Care Provider [phone] Karen Woo DO Unavailable [phone] Allergies Active Allergy Reactions Criticality Noted Date Comments Codeine Unknown High 12/16/2009 Other Reaction(s): Hallucinating, Other (See Comments) Other reaction(s): makes him feel funny hallucinations Fexofenadine-Pseudoephed Er Hives 06/22/20 06 Meperidine Hcl Swelling High 08/22/2010 Other Reaction(s): Edema of the upper extremity Swelling of arms Medications multivitamin with minerals (Cerovite) 18-400 mg-mcg tablet tablet Take 1 capsule by mouth in the morning. Active ferrous sulfate 325 (65 Fe) MG tablet Take 325 mg by mouth in the morning and 325 mg in the evening. Active acetaminophen (Tylenol) 500 MG tablet Take 1 tablet by mouth every 8 (eight) hours if needed Active apixaban (Eliquis) 5 MG tablet Take 5 mg by mouth in the morning and 5 mg in the evening. 4 Active Calcium Carb-Cholecalci ferol (OYSCO 500 + D) 500-5 MG-MCG tablet Take 1 tablet by mouth Daily 4 Active carboxymethylce llulose (Refresh Plus) 0.5 % ophthalmic solution Administer 1 drop into both eyes 4 Active cholecalciferol (SM Vitamin D3) 25 MCG (1000 UT) tablet Take 3,000 Units by mouth in the evening. Take with meals 4 Active donepezil (Aricept) 5 MG tablet 4 Active furosemide (Lasix) 20 MG tablet 4 Active insulin glargine (Lantus) 100 UNIT/ML pen Inject 25 Units under the skin in the morning. Inject with meals. Active loperamide (Imodium) 2 MG capsule Take 2 mg by mouth in the morning. 3 Active pancrelipase, Yuh-Pmrr-Fexz, (Creon) 94540-[address] units capsule TAKE 3 CAPSULES BY MOUTH THREE TIMES A DAY, WITH MEALS 3 Active PARoxetine (Paxil) 20 MG tablet Take 20 mg by mouth in the morning. 3 Active potassium chloride ER (Micro-K) 10 MEQ ER capsule Take 1 capsule by mouth in the morning and 1 capsule at noon and 1 capsule in the evening and 1 capsule before bedtime. Active azelastine (Astelin) 0.1 % nasal spray 4 Active Calcium Carb-Cholecalci ferol (CALCIUM CARBONATE-VITAM IN D3 PO) Take 1 capsule by mouth in the morning. Active traZODone (Desyrel) 50 MG tablet Take 50 mg by mouth at bedtime Active busPIRone (Buspar) 5 MG tablet Take 5 mg by mouth in the morning and 5 mg before bedtime. Active carvedilol (Coreg) 3.125 MG tablet Take by mouth 2 (two) times a day with meals Active sacubitril-vals nayeli (Entresto) 24-26 MG tablet Take 1 tablet by mouth in the morning and 1 tablet before bedtime. Active perphenazine 2 MG tablet Take 2 mg by mouth in the morning and 2 mg before bedtime. Patient is taking once a day at night. Active rivastigmine (Exelon) 13.3 MG/24HR Place 1 patch on the skin Daily Active Memantine HCl ER 28 MG capsule sustained-relea se 24 hrIndications:M lila loss Take 28 mg by mouth Daily 90 capsule 1 4 Active diazePAM (Valium) 2 MG tabletIndicatio ns:Vertigo,Anxi ety Take 1 tablet (2 mg) by mouth at bedtime Due 02/02/25 90 tablet 1 5 05/08/20 25 Active carbidopa-levod opa (Sinemet) 10-100 MG tabletIndicatio ns:Gait difficulty Take 1 tablet by mouth in the morning and 1 tablet in the evening and 1 tablet before bedtime. 8-9am, 11am-12pm, and 4pm. 270 tablet 1 5 Active rOPINIRole (Requip) 0.25 MG tabletIndicatio ns:Periodic limb movement disorder Take 1 tablet (0.25 mg) by mouth in the morning and 1 tablet (0.25 mg) in the evening and 1 tablet (0.25 mg) before bedtime. 90 tablet 2 5 Active Active Problems Problem Noted Date Diagnosed Date Chronic insomnia 01/24/2024 Headache 01/24/2024 Vertigo 01/24/2024 Hypersomnia 01/24/2024 Gait difficulty 01/24/2024 Overview (06/07/2024): Per previous record review, he was having more symptoms to suggest Parkinson's disease. He trialed Sinemet but did not tolerate and lowered the dose. He denied tremor. He does have some continued shuffling gait but also has lumbar spine disease. He has declined EMG testing to detect possible neuropathy. He is diabetic and was also exposed to [place] per his 's report. He experienced worsening bradykinesia with Sinemet lowering. He presented to [facility] 09/02/21 for increase in lower extremity weakness. CT head 09/02/21 revealed no acute findings. He is unable to have MRI due to pacemaker status. He denies falls since his last visit. Osteopenia 01/24/2024 Pain in joint, lower leg 01/24/2024 Dementia 01/24/2024 Agitation 01/24/2024 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 01/24/20 24 Back pain 01/24/2024 Overview (06/07/2024): He has chronic and continued neck and back pain. He has seen Dr. Pollack in the past. He does not want to revisit injections as he had to hold Eliquis and then suffered DVT/PE per 's report. He notes he was seen by Dr. Maciel who recommended fusion but he is unable to have due to bone density. He is ambulating with a cane. He denies worsening. 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 Per record reviewed, he had a hospital stay in 2006 for TIA but with stroke like symptoms and was unable to have MRI due to AICD. He was previously on Coumadin but is now on Eliquis as well as Plavix. Stroke risk factors of age, male, hypertension, hyperlipidemia, diabetes and atrial fibrillation. TCD 07/28/21 was within normal limits. Carotid ultrasound 07/28/21 revealed 1-29% stenosis of the bilateral carotid arteries. No new signs or symptoms of stroke. 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 He also has [...] he was tired of placing the patch. Overall he is at baseline and doing well. Hearing loss 01/24/2024 Disturbance of skin sensation 01/24/2024 HERBIE (obstructive sleep apnea) 01/24/2024 Overview (06/07/2024): HERBIE treated with BIPAP. He is compliant with machine. He is also on Adderall which he states is for narcolepsy and he gets this from Dr. Gaona. He follows with specialist in [place]. Radiculopathy, lumbosacral region 01/24/2024 DDD (degenerative disc disease), lumbar 01/24/20 Afib 01/24/2024 Encounters Date Type Department Care Team Description 02/08/2025 Telephone [facility] [address] [phone] Jhoan Sims MA 01/31/2025 2:20 PM EDT Office Visit [facility] [address] [phone] Viky Rollins PA Parkinson's disease without dyskinesia or fluctuating manifestations (CMS/HCC) (Primary Dx); Dysphagia, unspecified type; Cerebrovascular accident (CVA), unspecified mechanism (CMS/HCC); HERBIE (obstructive sleep apnea); Radiculopathy, lumbosacral region; Memory loss; Periodic limb movement disorder 01/31/2025 [employer] [facility] [address] [phone] Viky Rollins PA 01/24/2025 Telephone [facility] [address] [place] [phone] James Garcia MA 01/09/2025 Telephone [facility] [address] [place] [phone] James Garcia MA 12/04/2024 2:20 PM EDT Office Visit [facility] [address] [phone] Viky Rollins PA Periodic limb movement disorder (Primary Dx); Parkinson's disease without dyskinesia or fluctuating manifestations (CMS/HCC); Cerebrovascular accident (CVA), unspecified mechanism (CMS/HCC); Chronic bilateral low back pain with bilateral sciatica; Memory loss; HERBIE (obstructive sleep apnea) 12/04/2024 [employer] [facility] [address] [place] [address] Viky Rollins PA 11/30/2024 Telephone [facility] [address] [place] [address] James Garcia MA from Last 3 Months Family History Medical History Relation Name Comments Hypertension Other Relation Name Status Comments Other Social History Tobacco Use Types Packs/Day Years [...] Mass Index 28.68 01/31/2025 2:36 PM EDT Plan of Treatment Health Maintenance Due Date Last Done Comments Pneumococcal Vaccine: 65+ Years Completed 06/29/2018, 06/10/2016, 05/29/2016, Additional history exists Influenza Vaccine Completed 06/30/2024, , 08/09/2023, Additional history exists Insurance MEDICARE [facility] Care Teams Recreational Aide Relationship Specialty Start Date End Date Maicol Anderson MD [address] [place] [address] PCP - General Family Medicine 08/24/24 Viky Rollins PA [address] [place] [address] Physician [facility] Neurology 12/06/23 Karen Woo DO [address] [place], [place] [id number] Referring Physician Neurology 11/09/24
--- OUTSIDE RECORDS SUMMARY | 2025-02-10 12:48 | XMS_ITS | Encounter Summary ---
Author Organization [facility] Address [id number] [address] [place] [address] Care Team Providers Care Plate Glass Installer Helper Name Role Phone Maicol Anderson DO Primary Care Provider [phone] Reason for Visit * Reason Comments Med Refill Encounter Details Date Type Department Care Team (Late st Contact Info) Description 03/21/2017 Refill [facility] [address] [place] [address] [place] [address] [place] [address], [address] RETIRED 09/18/24 [place] [address] Social History Tobacco Use Types Packs/Day Years Used Date Smoking Tobacco: Former Cigarettes 1 58 Smokeless Tobacco: Never Alcohol Use Standard Drinks/Week Comments No 0 (1 standard drink = 0.6 oz pur e alcohol) social Sex and Gender Information Value Date Recorded Sex Assigned at Not on file Legal Sex Male 2:31 PM EDT Gender Identity Not on file Sexual Orientation Not on file Occupation Industry Job Start Date Job End Date Retired Not on file Not on file Not on file documented as of this encounter Plan of Treatment Not on file documented as of this encounter Visit Diagnoses Not on filedocumented in this encounter Care Teams Plate Glass Installer Helper Relationship Specialty Start Date End Date Maicol Anderson DO [address] [place] [address] PCP - General 02/28/16 documented as of this encounter
--- OUTSIDE RECORDS SUMMARY | 2025-02-10 12:48 | XMS_ITS | Encounter Summary ---
Author Organization [facility] Address [address] [place] [address] Care Team Providers Care Snuff Blender Name Role Phone Viky Rollins Unavailable Maicol Anderson MD Primary Care Provider [phone] Karen Woo DO Unavailable [phone] Reason for Referral * Consultation (Routine) - Closed Specialty Diagnoses / Procedures Referred By Contac t Referred To Contact Otolaryngology Diagnoses Dysphagia, unspecified type Procedures [place] OFFICE/OUTPATIENT NEW HIGH MDM 60 MINUTES Viky Rollins PA [address] [place] [address] Phone: tel: fax: Gulshan Olivier, DO [address] [place] [address] Phone: tel: fax: Referral ID Status Reason Start Date Expiration Date V isits Requested Visits Authorized [id number] Closed Specialty Services Required 01/25/2025 07/24/2025 1 1 * Imaging (Routine) - Closed Specialty Diagnoses / Procedures Referred By Contac t Referred To Contact Radiology Diagnoses Dysphagia, unspecified type Procedures [place] esophagus barium swallow Viky Rollins PA [address] [place] [address] Phone: tel: fax: [facility] [address] [place] [address] Referral ID Status Reason Start Date Expiration Date V isits Requested Visits Authorized [id number] Closed Perform Procedure 01/25/2025 07/24/2025 1 1 Encounter Details Date Type Department Care Team (Late st Contact Info) Description 01/24/2025 Telephone [facility] [address] [place] [phone] James Garcia MA Social History Tobacco Use Types Packs/Day [...] encounter Miscellaneous Notes * Telephone Encounter - RAÚL Yarbrough - 01/25/2025 3:42 PM EDT All set! Could you please fax MBS and I think the ENT referral is internal. * Telephone Encounter - James Garcia MA - 01/24/2025 12:08 PM EDT [facility] calls stating that they sent over a requests for a Modified Barium Swallow test to be ordered due to findings of Dysphasia. Needs this faxed to [phone] She states that they also sent over a request for us to order a Laryngoscopy and states that the ptwould like this sent to [facility] to Dr. Gonzalez in [place]. documented in this encounter Plan of Treatment Scheduled Orders Name Type Priority Associated Diagnoses Orde r Schedule [place] esophagus barium swallow Imaging Routine Dysphagia, unspecified type Expected: 01/25/2025 (Approximate), Expires: 01/25/2026 Scheduled Referrals Name Type Priority Associated Diagnoses Orde r Schedule Ambulatory referral to ENT Outpatient Referral Routine Dysphagia, unspecified type Expected: 01/25/2025 (Approximate), Expires: 07/28/2025 documented as of this encounter Visit Diagnoses Diagnosis Dysphagia, unspecified type- Primary documented in this encounter Care Teams Snuff Blender Relationship Specialty Start Date End Date Maicol Anderson MD [address] [place] [address] PCP - General Family Medicine 08/24/24 Viky Rollins PA [address] [facility] [address] [place] [address] Physician Cut In Station Operator Neurology 12/06/23 Karen Woo DO [address] [address] Referring Physician Neurology 11/09/24 documented as of this encounter
--- OUTSIDE RECORDS SUMMARY | 2025-02-10 12:48 | XMS_ITS | Encounter Summary ---
Author Organization [facility] Address [address] [place] [address] Care Team Providers Care Binder And Wrapper Packer Name Role Phone Maicol Anderson MD Primary Care Provider Encounter Details Date Type Department Care Team (Late st Contact Info) Description 10/23/2013 PAT Telephone [facility] Pre-Admit Testing [address] [place] [address] Basilia Johnson, ROGER Social History Tobacco Use Types Packs/Day Years Used Date Smoking Tobacco: Former Cigarettes 1 41 0 09/13/1970 - 09/13/2011 Comments:quit x 1 year Alcohol Use Standard Drinks/Week Comments Yes 0 (1 standard drink = 0.6 oz pur e alcohol) occasionally Sex and Gender Information Value Date Recorded Sex Assigned at Not on file Legal Sex Male 8:27 PM EST Gender Identity Not on file Sexual Orientation Not on file documented as of this encounter Plan of Treatment Not on file documented as of this encounter Visit Diagnoses Not on filedocumented in this encounter Care Teams Binder And Wrapper Packer Relationship Specialty Start Date End Date Maicol Anderson MD [address] [place] [id number] PCP - General Family Medicine 07/27/16 documented as of this encounter
[2025-02-10 13:17] LABS: Albumin Level 3.4 g/dL (3.4-5.0); Phosphorus 3.2 mg/dL (2.6-4.7)
== END 2025-02-10 12:43 | disposition home or self-care (01) ==
LOC: LAB 12:43
PROVIDERS: PCP Family Medicine
DX: I48.91 Unspecified atrial fibrillation (principal)
CPT/HCPCS: 36415; 82042; 84100

== ENCOUNTER 2025-02-10 12:44 | Outpatient (OUT) | payer MEDICARE, OTHER, SELFPAY ==
--- OUTSIDE RECORDS SUMMARY | 2025-02-10 12:48 | XMS_ITS | Clinical Summary ---
Author Organization [facility] Address [address] [place] [address] Phone Care Team Providers Care Macerator Operator Name Role Phone Maicol Anderson Primary Care Prov ider Allergies Active Allergy Reactions Criticality Noted Date Comments Exenatide Unknown Low 08/30/2023 Codeine Unknown Low 08/30/2023 Meperidine Unknown Low 08/30/2023 Fish Oil Diarrhea 04/24/2024 Canagliflozin Unknown Low 08/30/2023 Empagliflozin Other 10/20/2024 Pancreatitis Liraglutide Unknown Low 08/30/2023 Medications tamsulosin (Flomax) 0.4 mg 24 hr capsule Take 1 capsule (0.4 mg) by mouth once daily. 8 Active FERROUS SULFATE ORAL Take 325 mg by mouth once daily. Active magnesium oxide (Mag-Ox) 420 mg tablet Take 1 tablet (420 mg) by mouth once daily. Active DAILY MULTI-VITAMIN ORAL Take 1 capsule by mouth once daily. Active CALCIUM CARBONATE-VITAMIN D3 ORAL Take 1 capsule by mouth 2 times a day. Active cholecalciferol (Vitamin D-3) 25 MCG (1000 UT) tablet Take 3 tablets (75 mcg) by mouth once daily. Active carbidopa-levodopa (Sinemet) 10-100 mg tablet Take 1 tablet by mouth 3 times a day. Active PARoxetine (Paxil) 20 mg tablet Take 1 tablet (20 mg) by mouth once daily in the morning. 3 Active famotidine (Pepcid) 20 mg tablet Take 1 tablet (20 mg) by mouth once daily at bedtime. 8 Active insulin glargine (Lantus) 100 unit/mL (3 mL) pen Inject 14 Units under the skin once daily. Active diazePAM (Valium) 2 mg tablet Take 1 tablet (2 mg) by mouth as needed at bedtime (1 TAB DAILY). 3 Active Creon 36,000-114,000- 180,000 unit capsule,delayed release(DR/EC) capsule Take 3 capsules by mouth 3 times daily (morning, midday, late afternoon). With meals, and 2 tablets twice daily with snacks 6 Active loperamide (Imodium) 2 mg capsule Take 1 capsule (2 mg) by mouth once daily as needed for diarrhea. 3 Active memantine (Namenda) 28 mg capsule,chau,E R 24hr Take 1 capsule (28 mg) by mouth once daily. 3 Active traZODone (Desyrel) 50 mg tablet Take 0.5 tablets (25 mg) by mouth once daily at bedtime. Active busPIRone (Buspar) 5 mg tablet Take 1 tablet (5 mg) by mouth 2 times a day. Active rivastigmine (Exelon) 13.3 mg/[address] 1 patch on the skin once daily. 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 15 tablet 1 4 Active mirabegron (Myrbetriq) 50 mg tablet extended release 24 hr 24 hr tablet Take 1 tablet (50 mg) by mouth once daily. Active fexofenadine (Hermila) 180 mg tablet Take 1 tablet (180 mg) by mouth once daily. Active acetaminophen (Tylenol) 325 mg tabletIndications: Presence of Watchman left atrial appendage closure device Take 2 tablets (650 mg) by mouth every 6 hours if needed for moderate pain (4 - 6) or mild pain (1 - 3). 5 Active aspirin 81 mg EC tabletIndications: Presence of Watchman left atrial appendage closure device Take 1 tablet (81 mg) by mouth once daily. 30 tablet 11 5 026 Active sacubitriL-valsart an (Entresto) 24-26 mg tabletIndications: Congestive heart failure, NYHA class 3, chronic, systolic Take 1 tablet by mouth 2 times a day. HOLD IF BP LESS THAN 100 180 tablet 1 5 026 Active clopidogrel (Plavix) 75 mg tabletIndications: Ischemic cardiomyopathy Take 1 tablet (75 mg) by mouth once daily. 90 tablet 1 5 026 Active digoxin (Lanoxin) 125 MCG tabletIndications: 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 Take 1 tablet (125 mcg) by mouth once daily. 90 tablet 1 5 026 Active furosemide (Lasix) 20 mg tabletIndications: Ischemic cardiomyopathy Take 1 tablet (20 mg) by mouth once daily. 90 tablet 1 5 026 Active potassium chloride CR (Klor-Con) 10 mEq ER tabletIndications: Ischemic cardiomyopathy Take 1 tablet (10 mEq) by mouth once daily. Do not crush, chew, or split. 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 90 tablet 1 5 026 Active carvedilol (Coreg) 3.125 mg tabletIndications: Ischemic cardiomyopathy,Ess ential hypertension Take 1 tablet (3.125 mg) by mouth 2 times daily (morning and late afternoon). 180 tablet 1 5 025 Discontin ued(Thera py completed ) clopidogrel (Plavix) 75 mg tabletIndications: Ischemic cardiomyopathy Take 1 tablet (75 mg) by mouth once daily. 90 tablet 1 5 025 Discontin ued(Reord er) digoxin (Lanoxin) 125 MCG tabletIndications: 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 Take 1 tablet (125 mcg) by mouth once daily. 90 tablet 1 5 025 Discontin ued(Reord er) furosemide (Lasix) 20 mg tabletIndications: Ischemic cardiomyopathy Take 1 tablet (20 mg) by mouth once daily. 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 90 tablet 1 5 025 Discontin ued(Reord er) sacubitriL-valsart an (Entresto) 24-26 mg tabletIndications: Ischemic cardiomyopathy,Con gestive heart failure, NYHA class 3, chronic, systolic Take 1 tablet by mouth early in the morning.. Take the 49/51mg tablet in the evening 90 tablet 1 5 025 Discontin ued(Thera py completed ) potassium chloride CR (Klor-Con) 10 mEq ER tabletIndications: Ischemic cardiomyopathy Take 1 tablet (10 mEq) by mouth once daily. Do not crush, chew, or split. 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 1 10/31/2022 Shortness of breath 08/30/2023 Parkinson disease (Multi) 08/30/2023 History of stroke 08/30/2023 BPH (benign prostatic hyperplasia) 08/30/2023 Ischemic cardiomyopathy 08/30/2023 Diabetes mellitus (Multi) 08/30/2023 Encounters Date Type Department Care Team Description 02/06/[address] [address] Heaven Shah LPN 02/02/2025 1:45 PM EDT Office Visit [address] [address] Rosemary Cartagena MD 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); Congestive heart failure, NYHA class 3, chronic, systolic; Ischemic cardiomyopathy; Medication course changed; 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; Former smoker; Body mass index (BMI) of 29.0 to 29.9 in adult; 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; Presence of Watchman left atrial appendage closure device; Longstanding persistent atrial fibrillation (Multi) 02/02/2025 Travel 01/25/[address] [address] Brien Dewey MA 01/18/2025 Patient Outreach [facility] [address] [facility] [address] [place] [address] Susannah Palomares, SLAT BASKET MAKER 12/19/2024 Patient Outreach [facility] [address] [facility] [address] [place] [phone] Susannah Palomares, SLAT BASKET MAKER 12/13/2024 Telephone [place] [address] [place] [address] Sadaf Simons, KAROL low bp 12/04/2024 Telephone [facility] [address] [facility] [address] [place] [address] Annamarie Dolan, ROGER 45 day watchman follow up 11/15/2024 Patient Outreach [facility] [address] [facility] [address] [place] [phone] Susannah Palomares, SLAT BASKET MAKER from Last 3 Months Immunizations Immunization Administration Dates Next Due COVID-19, mRNA, LNP-S, PF, 3 0 mcg/0.3 mL dose 03/04/2021 DTaP vaccine, pediatric (INFANRIX) 07/21/2021 Flu vaccine, trivalent, pres ervative free, HIGH-DOSE, age 65y+ (Fluzone) 06/30/2024,06/24/2019,05/18/2018,06/02,06/10/2016,05/24/2013 Pneumococcal polysaccharide vaccine, 23-valent, age 2 years and older (PNEUMOVAX 23) 06/29/2018,06/10/2016,05/29/2016,06/16,09/13/2006 Td vaccine, age 7 years and older (TDVAX) 07/21/2021 Zoster vaccine, recombinant, adult (SHINGRIX) 01/12/2019,06/24/2018 Family History Medical History Relation Name Comments Cancer Brother Breast cancer Mother Breast cancer Sister Relation Name Status Comments Brother Mother Sister Social History Tobacco Use Types Packs/Day Years Used Date Smoking Tobacco: Former Cigarettes Smokeless Tobacco: Never Tobacco Cessation:Counseling Given: Not Answered Alcohol Use Standard Drinks/Week Comments Not Currently [...] [facility] the [facility] were you [facility] or living in a assisted (including now)? No 10/21/2024 Sex and Gender [...] No / Unsure 02/02/2025 2:07 PM EDT Last Filed Vital Signs Vital Sign Reading Time Taken Comments Blood Pressure 110/60 02/02/2025 2:32 PM EDT Pulse 64 02/02/2025 2:32 PM EDT Temperature 36.5 C (97.7 F) 10/21/2024 11:32 AM EST Respiratory Rate 16 10/21/2024 11:32 AM EST Oxygen Saturation 94% 10/21/2024 11:32 AM EST Inhaled Oxygen Concentration - - Weight 79.4 kg (175 lb) 02/02/2025 2:32 PM EDT Height 165.1 cm (5' 5 ) 02/02/2025 2:32 PM EDT Body Mass Index 29.12 02/02/2025 2:32 PM EDT Plan of Treatment Upcoming Encounters Date Type Department Care Team (Late st Contact Info) Description 02/16/2025 12:45 PM EDT Hospital Encounter [facility] [address] [facility] [address] [place] [address] 07/30/2025 2:45 PM EST Office Visit [facility] [address] [facility] [address] [place] [address] Rosemary Cartagena MD [address] [facility] [address] [place] [address] Health Maintenance Due Date Last Done Comments Diabetes: Hemoglobin A1C 1940 Diabetes: Urine Protein Screening 1940 Lipid Panel 1940 Medicare Annual Wellness Visit (AWV) 1940 RSV High Risk: (Elderly (60+) or Population) (1 - 1-dose 75+ series) 2017 Diabetes: Retinopathy Screening 01/03/2024 01/02/2022 COVID-19 Vaccine ( season) 2024 Creatinine Level 10/21/2025 10/21/2024, 10/20/2024 Echocardiogram 10/21/2025 10/21/2024, 03/2025, 09/02/2023 Potassium Level 10/21/2025 10/21/2024, 10/20/2024 DTaP/Tdap/Td Vaccines (4 - Tdap) 07/21/2031 07/21/2021, 07/21/2021, 06/13/2013 Pneumococcal Vaccine Completed 06/29/2018, 06/10/2016, 05/29/2016, Additional history exists Zoster Vaccines Completed 01/12/2019, 06/24/2018 Influenza Vaccine Completed 06/30/2024, , 08/09/2023, Additional history exists HIB Vaccines Aged Out No longer eligi ble based on patient's age to complete this topic HPV Vaccines Aged Out No longer eligi ble based on patient's age to complete this topic Hepatitis A Vaccines Aged Out No long er eligible based on patient's age to complete this topic Hepatitis B Vaccines Aged Out No long er eligible based on patient's age to complete this topic IPV Vaccines Aged Out No longer eligi ble based on patient's age to complete this topic Meningococcal Vaccine Aged Out No yobani leslee eligible based on patient's age to complete this topic Rotavirus Vaccines Aged Out No longer eligible based on patient's age to complete this topic Medical Devices Implanted Type Area Access Nurse Device Identifier Shelf Expiration Date Model / Serial / Lot Icd ICD Chest Wall Device, Closure, 35mm Watchman Flx Pro Laac - [id number] Implanted:Qty : 1 on 10/20/2024 by Jay Pickering MD at [facility] Other Cardiac Implant N/A: Heart [employer] EUGENIA [id number] 05/31/2027 [id number] 50 / / [id number] Procedures Procedure Name Priority Date/Time Associated Diagnosis Comments TRANSTHORACIC ECHO (TTE) LIMITED Routine 10/21/2024 8:10 AM EST Presence of Watchman left atrial appendage closure device Postoperative examination BASIC METABOLIC PANEL Routine 10/21/2024 7:25 AM EST from Last 3 Months or Most Recently Relevant to Health Maintenance Results * TRANSTHORACIC ECHO (TTE) LIMITED (10/21/2024 8:10 AM EST) 10/21/2024 7:52 AM EST Narrative SYNGO - 10/21/2024 10:57 AM EST [facility] [address] [place] [address] and TRANSTHORACIC ECHOCARDIOGRAM REPORT Patient Name: YOANA IBRAHIM Reading Physician: [id number] Benja Adan MD Study Date: 10/21/2024 Ordering Provider: [id number] MONSE LANDERS MRN/PID: [id number] Fellow: Nurse: Date of /Age: 4 1940 / 83 years Indigo Mixer: Fletcher Navarro RDCS Gender assigned at M Additional Staff: : Height: 167.64 cm Admit Date: Weight: 83.46 kg Admission Status: Inpatient - Routine BSA / BMI: 1.93 m2 / 29.70 kg/m2 Blood Pressure: 117/37 mmHg Department Location: [place] [address] Study Type: TRANSTHORACIC ECHO (TTE) LIMITED Diagnosis/ICD: Encounter for follow up examination after completed treatment for conditions other than malignant neoplasm-Z09; Presence of other cardiac implants and grafts-Z95.818 Indication: s/p LAAO CPT Code: Echo Limited-52896 Patient History: Pertinent History: Chronic systolic left [...] 10/20/2024, no significant change. QUANTITATIVE DATA SUMMARY: [id number] Benja Adan MD Electronically signed on 10/21/2024 at 10:56:59 AM Final Procedure Note Benja Adan MD - 10/21/2024 [facility] [address] [place] [address] and TRANSTHORACIC ECHOCARDIOGRAM REPORT Patient Name: YOANA IBRAHIM Reading Physician: [id number] Adan MD Study Date: 10/21/2024 Ordering Provider: [id number] LANDERS MRN/PID: [id number] Fellow: Nurse: Date of /Age: 4 1940 / 83 years Indigo Mixer: Rojas WANG Gender assigned at M Additional Staff: : Height: 167.64 cm Admit Date: Weight: 83.46 kg Admission Status: Inpatient- Routine BSA / BMI: 1.93 m2 / 29.70 kg/m2 Blood Pressure: 117/37 mmHg Department Location: [place] [address] Study Type: TRANSTHORACIC ECHO (TTE) LIMITED Diagnosis/ICD: Encounter for follow up examination after completedtreatment for conditions other than malignant neoplasm-Z09; Presence ofother cardiac implants and grafts-Z95.818 Indication: s/p LAAO CPT Code: Echo Limited-71021 Patient History: Pertinent History: Chronic systolic left heart failure, HFrEF, secondaryto ischemic cardiomyopathy, LVEF 30%, sick sinussyndrome dual-chamber pacemaker, hypertension, hyperlipidemia, 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 Study Detail: The following Echo studies were performed: 2D. PHYSICIAN INTERPRETATION: Left Ventricle: The left ventricle was not well visualized. The leftventricular ejection fraction could not be measured. The left ventricularcavity size is moderately dilated. Abnormal (paradoxical) septal motion,consistent with RV pacemaker. Left ventricular diastolic filling was notassessed. LV function is reduced but cannot be assessed accurately. Left Atrium: The left atrial size is severely dilated. Right Ventricle: The right ventricle is normal in size. There is normalright ventricular global systolic function. A device is visualized in theright ventricle. Right Atrium: The right atrium is moderate to severely dilated. There is adevice visualized in the right atrium. Aortic Valve: The aortic valve is structurally normal. There is mildaortic valve cusp calcification. Aortic valve regurgitation was notassessed. Mitral Valve: The mitral valve is normal in structure. Mitral valveregurgitation was not assessed. Tricuspid Valve: The tricuspid valve is structurally normal. Tricuspidregurgitation was not assessed. Pulmonic Valve: The pulmonic valve was not assessed. Pulmonic valveregurgitation was not assessed. Pericardium: Trivial pericardial effusion. Aorta: The aortic root is normal. In comparison to the previous echocardiogram(s): Compared with study date10/20/2024, no significant change. CONCLUSIONS: 1. The left ventricle was not well visualized. The left ventricularejection fraction could not be measured. 2. Left [...] 10/20/2024, no significant change. QUANTITATIVE DATA SUMMARY: [id number] Benja Adan MD Electronically signed on 10/21/2024 at 10:56:59 AM Final us Monse Landers PROGRAMMER NUMERICAL CONTROL-TURKEY FARMER CV ECHO PROCEDURES Fin al Result Performing Organization Address City/State/[facility] Co de Phone Number [email or web address] * (ABNORMAL) Basic Metabolic Panel (10/21/2024 7:25 AM EST) Glucose 112(H) 74 - 99 mg/dL LAB CHEMISTRY METHOD 10/21/2024 10:23 AM EST [facility] Sodium 143 136 - 145 mmol/L LAB CHEMISTRY METHOD 10/21/2024 10:23 AM EST [facility] Potassium 4.1 3.5 - 5.3 mmol/L LAB CHEMISTRY METHOD 10/21/2024 10:23 AM EST [facility] Chloride 105 98 - 107 mmol/L LAB CHEMISTRY METHOD 10/21/2024 10:23 AM EST [facility] Bicarbonate 29 21 - 32 mmol/L LAB CHEMISTRY METHOD 10/21/2024 10:23 AM EST [facility] Anion Gap 13 10 - 20 mmol/L LAB CHEMISTRY METHOD 10/21/2024 10:23 AM EST [facility] Urea Nitrogen 35(H) 6 - 23 mg/dL LAB CHEMISTRY METHOD 10/21/2024 10:23 AM EST [facility] Creatinine 1.35(H) 0.50 - 1.30 mg/dL LAB CHEMISTRY METHOD 10/21/2024 10:23 AM EST [facility] eGFR 53(L) >60 mL/min/1. 73m*2 LAB CHEMISTRY METHOD 10/21/2024 10:23 AM EST [facility] Comment: Calculations of estimated GFR are performed using the 2020 CKD-EPI Study Refit equation without the race variable for the IDMS-Traceable creatinine methods. https://jasn.asnjournals.org/content/early//ASN.3289396062 Calcium 8.9 8.6 - 10.6 mg/dL LAB CHEMISTRY METHOD 10/21/2024 10:23 AM EST [facility] Blood Venous blood specimen / Unknown Venipuncture / Unknown 10/21/2024 7:25 AM EST 10/21/2024 9:51 AM EST Monse Landers PROGRAMMER NUMERICAL CONTROL-TURKEY FARMER LAB BLOOD ORDERABLES F inal Result [facility] [address] [place] [id number] from Last 3 Months or Most Recently Relevant to Health Maintenance Insurance MEDICARE PART A AND B [facility] FOR LIFE MEDICARE PART A AND B FOR LIFE Advance Directives For more information, please contact: [phone] (Available ) * Full Code (Latest Code Status on File) Date Activated Date Inactivated Comments 10/20/2024 2:30 PM Question Answer Comments Plan of Care: Code Status Discussion Completed Decision Maker: Patient * Full Code Date Activated Date Inactivated Comments 10/20/2024 12:54 PM 10/20/2024 2:30 PM Question Answer Comments Plan of Care: Code Status Discussion Completed Decision Maker: Patient Care Teams Macerator Operator Relationship Specialty Start Date End Date Maicol Anderson DO [address] [place] [address] PCP - General Family Medicine 08/30/23
--- OUTSIDE RECORDS SUMMARY | 2025-02-10 12:49 | XMS_ITS | CCD ---
Author Organization [facility] Care Team Providers Care Silverware Supervisor Name Role Phone FABIANO WILL Unavailable Unavailable BRISTOL, SHANIQUE E Unavailable Unavailable [place], Holt E Primary Care Provider [phone] RAÚL VALE Referring Unavailable BRISTOL, SHANIQUE E [...] Unavailable DO Shanique Anderson Primary Care Provider [phone] DO Shanique Anderson Attending Provider Shanique Anderson DO Primary Care Prov ider DO Shanique Anderson Primary Care Provider [phone] MD Rosemary Cartagena Attending Provider [place], DO Holt Primary Care Provider MD Rosemary Cartagena Attending Provider ROBERT Rollins Attending Provider [phone] MARISEL Heart Other Provider [place], DO Holt Primary Care Provider MD Rosemary Cartagena Attending Provider JUSTIN SHANIQUE Primary Care Physician [phone] ROSEMARY CARTAGENA Referring Unavailable BRISTOL, SHANIQUE LLANES TERESO Primary Care Unav ailable [place], DO Holt Primary Care Provider MD Rosemary Cartagena Attending Provider Melodylocatparris SANCHEZ, William Provider Primary Care Provi diomedes Viky Sage Unavailable ROBERT Rollins Attending Provider [phone] Shanique Anderson MD Primary Care Provider [phone] [place] DO, Shanique Llanes Tereso Primary Care Prov [...] SHANIQUE SHRADDHA TERESO Primary Care Unav ailable [place] DO, Holt Primary Care Provider [phone] Tex Carranza MD Attending Provider [place], Holt Primary Care Unavailable Viky Rollins Admitting Unavailable Viky Rollins Attending Unavailable Cartagena, Rosemary Attending Unavailable [place], Holt Primary Care Unavailable Cartagena, Rosemary Admitting Unavailable Cartagena, Rosemary Attending Unavailable [place], Holt Primary Care Unavailable Cartagena, Rosemary Admitting Unavailable Cartagena, Rosemary Admitting Unavailable [place], Holt Primary Care Unavailable [place]agen[place], Rosemary Attending Unavailable [place], Shanique Primary Care Unavailable Saira Heart Unavailable Lowe, Viky Admitting Unavailable Lowe, Viky Attending Unavailable [place], Shanique Primary Care Unavailable Almahameed, Soufian Attending Unavailable Almahameed, Soufian Admitting Unavailable Cartagena, Rosemary Attending Unavailable [place], Shanique Primary Care Unavailable Cartagena, Rosemary Admitting Unavailable COOK, Petr P Attending Unavailable [...] canagliflozin Drug Allergy 04-01-20 [address] [facility] exenatide (2 sources) exenatide Drug Allergy 04-01-20 [address] Unknown Reaction [facility] fexofenadine (2 sources) fexofenadine Drug Allergy 04-01-20 23 [facility] liraglutide (2 sources) liraglutide Drug Allergy 04-01-20 23 Unknown Reaction [facility] NSAIDs (2 sources) Ibuprofen Drug Allergy 04-01-20 23 Unknown Reaction [facility] Opioid Agonists (6 sources) Codeine Drug Allergy 08-28-20 21 Hallucinating, Sweat [facility] rOPINIRole (2 sources) rOPINIRole Drug Allergy 04-01-20 23 Unknown Reaction [facility] SITagliptin (2 sources) SITagliptin Drug Allergy 04-01-20 23 Unknown Reaction [facility] (1 source) Acetaminophen / oxyCODONE Drug Allergy 07-27-20 16 Other (See Comments) [place] (20 sources) Codeine; Translations: [codeine] Drug Allergy 12-17-19 10 Other (See Comments), Unknown, Unknown (qualifier value) [place] (20 sources) exenatide; Translations: [exenatide] Drug Allergy 04-08-20 16 Unknown, Unknown (qualifier value) [place] (10 sources) fexofenadine; Translations: [fexofenadine] Drug Allergy 02-04-20 12 Itching, Unknown, Unknown (qualifier value) [place] (1 source) fexofenadine Drug Allergy 07-27-20 16 Itching [place] (19 sources) Ibuprofen Drug Allergy 04-04-20 18 Unknown Reaction, Unknown [place] (20 sources) liraglutide; Translations: [liraglutide] Drug Allergy 12-03-19 17 Unknown, Unknown (qualifier value) [place] (7 sources) Meperidine; Translations: [Demerol] Drug Allergy 02-04-20 12 Swelling, Bilateral upper limb edema [place] (10 sources) SITagliptin Drug Allergy 05-06-20 15 Unknown Reaction [place] (1 source) Other Propensity to adverse reactions 05-06-20 15 Itching [place] (11 sources) fexofenadine; Translations: [fexofenadine] Drug Allergy 08-28-20 21 [facility] (20 sources) Meperidine; Translations: [meperidine] Drug Allergy 08-28-20 [address] [facility] (11 sources) Morphine; Translations: [morphine] Drug Allergy 08-28-20 [address] [facility] (20 sources) canagliflozin; Translations: [CANAGLIFLOZIN] Drug Allergy 08-28-20 [address] [facility] (20 sources) Codeine Drug Allergy Unknown [facility] [employer] Other (20 sources) fexofenadine; Translations: [Hermila] Drug Allergy 06-12-20 15 Unknown [facility] (15 sources) Ibuprofen Drug Allergy Unknown [facility] [employer] Other (20 sources) rOPINIRole Drug Allergy Unknown [facility] [employer] Other (20 sources) SITagliptin Drug Allergy Unknown [facility] [employer] Other (1 source) Codeine Drug Allergy 06-12-20 15 [facility] (2 sources) exenatide Drug Allergy [facility] (3 sources) liraglutide; Translations: [Victoza] Drug Allergy [facility] (1 source) SITagliptin Drug Allergy 08-24-20 15 [facility] (10 sources) rOPINIRole; Translations: [ropinirole] Drug Allergy 08-28-20 21 Unknown Reaction [facility] (5 sources) canagliflozin; Translations: [canagliflozin] Drug Allergy Unknown (qualifier value) [facility] (12 sources) Fish Oils; Translations: [FISH OIL] Drug Allergy 04-24-20 24 [facility] (17 sources) fexofenadine / Pseudoephedrine Drug Allergy 06-22-20 06 Hives [facility] (17 sources) Meperidine Drug Allergy 08-22-20 10 Swelling [facility] (7 sources) empagliflozin; Translations: [EMPAGLIFLOZIN] Drug Allergy 10-20-19 25 Other [facility] (1 source) canagliflozin Drug Allergy 04-03-[address] [facility] (1 source) Codeine Drug Allergy 04-03-[address] [facility] (1 source) exenatide Drug Allergy 04-03-[address] [facility] (1 source) Ibuprofen Drug Allergy 04-03-[address] [facility] Rep[facility] (1 source) liraglutide Drug Allergy 04-03-[address] [facility] Rep[facility] (1 source) SITagliptin Drug Allergy 04-03-[address] [facility] Repository (1 source) [place] Prefilled Pen; Translations: [[place] Prefilled Pen] Propensity to adverse reactions (disorder) [facility] Repository Medications Current Medications Medication Drug Class(es) [...] hrs for 10 day(s) Jul, Active amylase 87349 unt / lipase 89932 unt / protease 01342 unt delayed release oral capsule (20 sources) Start: 03-02-2023 take 3 capsules by mouth three times daily at mealtime pancrelipase, Lqn-Mqeb-Gsay, (Creon) 84965-39660 units capsule TAKE 3 CAPSULES BY MOUTH THREE TIMES A DAY, WITH MEALS 03/02/2023 Active Start: 03-19-2021 End: 09-19-2024 take 3 capsules by mouth three times daily at mealtime, then take 2 capsules by mouth twice daily Vbsnfo-Gpmskqek-Xabzcps (Creon) 3,000-9,500- 15,000 unit capsule,delayed release(DR/EC) Discontinued [...] twice daily with snacks 04/08/2016 Active amylases 02790 unt / endopeptidases 9500 unt / lipase [...] evening. 12/06/2023 Active take 2 tablets by [facility] once daily Eliquis 5 MG as directed [...] spray 12/20/2023 Active Biotin (1 source) take 50308 [IU] by mouth twice daily BIOTIN PO [...] Start: 09-11-2021 take 2 tablets by mo [facility] once daily Calcium Carbonate-Vitamin D3 (Oyster Shell [...] Active Start: 09-11-2021 take 1 [facility] daily Cholecalciferol (Vitamin D3) 25 mcg (1,000 unit) Tablet Active 75 MCG PO Daily with supper September 11, 2021 1:00am Start: 03-07-2019 take 3000 [IU] by [facility] once daily Cholecalciferol (Vitamin D3) Active 3000 UNIT Oral Daily with supper March 07, 2019 6:55pm Start: 03-07-2019 End: 09-11-2021 take 3 tablets by mouth once daily Cholecalciferol (Vitamin D3) (Vitamin D3) 1,000 unit Tablet Discontinued 3000 UNIT PO Daily with supper March 07, 2019 12:00am September 11, 2021 10:18am take 3 tablets by [facility] once daily cholecalciferol (Vitamin D-3) 25 MCG [...] afterwards, # 2 tab(s), Refills(s) 0, Pharmacy: [facility]/pharmacy #[id number], 167, cm, 04/25/24 13:59:00 EDT, Height/Length Dosing, 72, kg, 04/25/24 13:59:00 EDT, Weight Dosing Start Date: 05/01/24 Status: Ordered Creon 92878 UNIT (20 sources) Creon 35164 UNIT 3 WITH MEALS 2 WITH SNACK Orally three times daily for 90 day(s) Active Creon 66605 UNIT 2 WITH MEALS 1 WITH SNACK [...] 09-05-20 End: 09-11-20 Fluticasone Propionate 50 mcg/actuation Gordon,Suspension Active 2 SPRAY INTRANASAL Every morning September [...] (3 sources) Start: 06-12-2019 15 g, Oral, NC N, Low blood sugar, Starting Wed06/12/19 at [...] (with breakfast) 0 04/28/2017 Active NovoLOG Active Nbmdma-Ifxngsnx-Rmfbiui (Creon) 3,000-9,500- 15,000 unit capsule,delayed release(DR/EC) (3 sources) Start: 09-29-2024 take 2 capsules by mouth twice daily Ylpxre-Piqemcxq-Kmafbaq (Creon) 3,000-9,500- 15,000 unit capsule,delayed release(DR/EC) Active 0 PO As Directed 1169September 29, 2024 9:54am 13 caps per day = 3 capsules with meals three times a day, 2 capsules with snacks twice a day orally as directed; Start: 09-29-2024 End: 09-29-2024 take 2 capsules by mouth twice daily Boufaf-Vktgtngo-Phopyxw (Creon) 3,000-9,500- 15,000 unit capsule,delayed release(DR/EC) Discontinued 0 PO As Directed 1169September 29, 2024 9:53am September 29, 2024 9:54am 13 caps per day = 3 capsules with meals three times a day, 2 capsules with snacks twice a day orally as directed; Start: 09-19-2024 End: 09-29-2024 take 2 capsules by mouth twice daily Eyokpg-Omsuufob-Gnjnqpz (Creon) 3,000-9,500- 15,000 unit capsule,delayed release(DR/EC) Discontinued [...] Active Start: 08-31-2022 take 1 capsule by [facility] every six hours Imodium A-D 2 [...] hydrochloride 10 mg oral tablet (20 sources) V-hleojx-K-aspartate Receptor Antagonist Start: 10-21-2024 Start: 12-28-2022 End: [...] Daily, # 30 tab(s), Refills(s) 11, Pharmacy: [facility]/pharmacy #[id number], 167, cm, 06/15/24 10:14:00 EDT, Height/Length Dosing, [...] SL tablet Indications: Coronary artery disease involving [place] coronary artery of [place] heart without angina pectoris Place 1 tablet [...] source) Cholinergic Muscarinic Antagonist Start: 10-21-19 Pancrelipase, Qmg-Cqze-Msie, (CREON PO) (1 source) take 2 capsules by mouth three times daily at mealtime Pancrelipase, Fsx-Fdtt-Xods, (CREON PO) Take 2 capsules by mouth [...] day at night. Active polyethylene glycol 3350 28584 mg powder for oral solution (20 sources) [...] 2100 Start: 04-03-2024 take 1 tablet by [place] once daily Trazodone 50 mg tablet Active 50 MG PO Daily April 03, 2024 12:00am Vitamin D (2 sources) Start: 06-12-2019 take 3000 [IU] by [facility] once daily at dinner 3,000 Units, Oral, DAILY WITH DINNER, First dose on Wed06/12/19 at 1730 Patient may take home supply. take 3 tablets by [facility] once daily, then take 1 tablet by mouth vitamin D (CHOLECALCIFEROL) 1000 UNIT TA BS tablet Take 3,000 Units by mouth Daily with supper 0 Active Vitamin D3 386311 UNIT/GM (6 sources) Vitamin D3 73515 0 UNIT/GM as directed Orally Once a day Active Vitamin D3 25 MCG (1000 UT) (8 sources) take 3 tablets by [facility] once daily Vitamin D3 25 MCG [...] directed Orally Once a day Not-Taking omega 0-oml-gfk-fish oil (Fish OiL) 1,000 mg (120 mg-180 mg) capsule (1 source) End: 04-24-2024 take 2 capsules by mouth in the morning omega 9-otv-ydx-fish oil (Fish OiL) 1,000 mg (120 mg-180 mg) capsule Take 2 capsules (2,000 mg) by mouth early in the morning.. 04/24/2024 Discontinued (Side effects) potassium chloride 10 meq extended release oral tablet (20 sources) Start: 04-25-2024 take 1 tablet by mouth once daily Potassium Chloride (Lba-Bsbe-Fsi 10) 10 mEq oral tablet, extended release [...] mg tablet Indications: Coronary artery disease involving [place] coronary artery of [place] heart without angina pectoris Take 1 tablet (5 mg) by mouth once daily. 90 tablet 3 09/01/2024 10/27/2024 Discontinued (Reorder) sacubitril 24 mg / valsartan 26 mg oral tablet (20 sources) Angiotensin 2 Receptor [place] Start: 04-24-2024 End: 10-27-2025 take [id number] 70547 mg by mouth in the evening sacubitriL-valsartan [...] sources) Long-term current use of anticoagulant; Translations: [senior care (current) use of anticoagulants] Onset: 3 09-04-2021 Episodic Other aftercare (1 source) Treatment changed; Translations: [Other fdc (current) drug therapy] 10-25-2023 Episodic Other aftercare (1 source) Long-term current use of drug therapy; Translations: [senior care (current) use of antithrombotics/antipl atelets] Onset: 4 [...] 5 Episodic Other aftercare (2 sources) Other medical terminologist (current) drug therapy; Translations: [Other medical terminologist (current) drug therapy] Onset: 5 Episodic Other [...] Resolved: 09-02-2021 Episodic Other aftercare (4 sources) extermination inspector (current) use of anticoagulants; Translations: [extermination inspector (current) use of anticoagulants] Onset: 08-30-2023 Episodic [...] 20 mg Tab) potassium chloride (Potassium Chloride (Yaz-Nmux-Yru 10) 10 mEq oral tablet, extended release) [...] CINTHYA SANCHEZ, MARY Leung When: Where: [address] [facility] [address] [place] [address]- Medications What How Much When Instructions Unchanged [...] Unchanged mometasone (more content not included)... Normal [facility] Urology Office/Clinic Noteon 11-28-2024 Urology Office/Clinic Note [...] 1.49 s/p radiation by Dr Galvez in [place]. Unsure of year of treatment or initial sx. 5. 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 inspector (current) use of antithrombotics/antiplate lets) Plavix. 6. Anticoagulated (Z79.01: senior care (current) use of anticoagulants) Dengis. The patient [...] Information CINTHYA SANCHEZ, Petr Richard, URL [address] [address]- Additional Instructions: PRN Patient Education Phimosis, Pediatric I, Leia Arroyo, personally scribed for Dr. Painting on 11/28/2024 14:15:14. . Documentation recorded by the scribe, Leia Arroyo, accurately reflects the services(s) I performed and decisions made by me. Authenticated by Dr. Painting on 11/28/2024 14:17:19. Portions of this record may have been created with voice recognition artificial intelligence software, specifically [employer]GoTos, Shuame and or TokBox. Substituti (more content not included)... Normal [facility] Comment on above: Result Comment: Elec tronically Signed By: Petr PAINTING MD\.br\Date and Time Signed: 11/28/24 14:18 EDT\.br\Electronically Co-Signed By: Leia Arroyo\.br\Date and Time Co-Signed: 11/28/24 14:16 EDT Basic metabolic 2000 panelon 10-21-2024 Anion gap [Moles/Vol] 13 mmol/L 10 - 2 0 mmol/L [facility] Calcium [Mass/Vol] 8.9 mg/dL 8.6 - 10. 6 mg/dL [facility] Chloride [Moles/Vol] 105 mmol/L 98 - 10 7 mmol/L [facility] CO2 [Moles/Vol] 29 mmol/L 21 - 32 mmol/L [facility] Creatinine [Mass/Vol] 1.35 mg/dL High 0.50 - 1.30 mg/dL [facility] GFR/1.73 sq M.predicted among non-blacks MDRD (S/P/Bld) [Vol rate/Area] 53 mL/min/{1.73_m2} Low - PINF [facility] Comment on above: Calculations of ginette mated GFR are performed using the 2020 CKD-EPI Study Refit equation without the race variable for the IDMS-Traceable creatinine methods. https://jasn.asnjournals.org/content/early//ASN.67968 00932 Glucose [Mass/Vol] 112 mg/dL High 74 - 99 mg/dL [facility] Interpretation and review of laboratory results Abnormal [facility] Potassium [Moles/Vol] 4.1 mmol/L 3.5 - 5.3 mmol/L [facility] Sodium [Moles/Vol] 143 mmol/L 136 - 145 mmol/L [facility] Urea nitrogen [Mass/Vol] 35 mg/dL High 6 - 23 mg/dL [facility] Anion gap [Moles/Vol] 13 mmol/L Normal 10-20 [facility] Comment on above: Performed By: #### 2 4321-2 ####GHISLAINE Baron ([id number])[facility] ([facility])[address] [place] [address] Calcium [Mass/Vol] 8.9 mg/dL Normal 8.6-10.6 [facility] Comment on above: Performed By: #### 2 4321-2 ####GHISLAINE Baron ([id number])[facility] ([facility])[address] [place] [address] Chloride [Moles/Vol] 105 mmol/L Normal 98-107 [facility] Comment on above: Performed By: #### 2 4321-2 ####GHISLAINE Baron ([id number])[facility] ([facility])[address] [place] [address] CO2 [Moles/Vol] 29 mmol/L Normal 21-32 [facility] Comment on above: Performed By: #### 2 4321-2 ####GHISLAINE Baron ([id number])[facility] ([facility])[address] [place] [address] Creatinine [Mass/Vol] 1.35 mg/dL High 0.50-1.30 [facility] Comment on above: Performed By: #### 2 4321-2 ####GHISLAINE Baron ([id number])[facility] ([facility])[address] [place] [address] Glomerular filtration rate/1.73 sq M.predicted 53 mL/min/1.73m*2 Low >60 [facility] Comment on above: Result Comment: Calc ulations of estimated GFR are performed using the 2020 CKD-EPI Study Refit equation without the race variable for the IDMS-Traceable creatinine methods. https://jasn.asnjournals.org/content//ASN.82100 01447 Performed By: #### 2 4321-2 ####GHISLAINE Baron ([id number])[facility] ([facility])[address] [place] [address] Glucose [Mass/Vol] 112 mg/dL High 74-99 [facility] Comment on above: Performed By: #### 2 4321-2 ####GHISLAINE Baron ([id number])[facility] ([facility])[address] [place] [address] Potassium [Moles/Vol] 4.1 mmol/L Normal 3.5-5.3 [facility] Comment on above: Performed By: #### 2 4321-2 ####GHISLAINE Baron ([id number])[facility] ([facility])[address] [place] [address] Sodium [Moles/Vol] 143 mmol/L Normal 136-145 [facility] Comment on above: Performed By: #### 2 4321-2 ####GHISLAINE Baron ([id number])[facility] ([facility])[address] [place] [address] Urea nitrogen [Mass/Vol] 35 mg/dL High 6-23 [facility] Comment on above: Performed By: #### 2 4321-2 ####GHISLAINE Baron ([id number])[facility] ([facility])[address] [place] [address] CBC W Auto Differential pane l (Bld)on 10-21-2024 Basophils (Bld) [#/Vol] 0.02 10*3/uL [facility] Basophils/100 WBC (Bld) 0.2 % 0.0 - 2.0 % [facility] Eosinophils (Bld) [#/Vol] 0.11 10*3/uL [facility] Eosinophils/100 WBC (Bld) 1.3 % 0.0 - 6.0 % [facility] Erythrocyte distribution width (RBC) [Ratio] 12.7 % 11.5 - 14.5 % [facility] Hematocrit (Bld) [Volume fraction] 30.8 % Low 41.0 - 52.0 % [facility] Hemoglobin (Bld) [Mass/Vol] 10.2 g/dL Low 13.5 - 17.5 g/dL [facility] Immature granulocytes (Bld) [#/Vol] 0.03 10*3/uL [facility] Immature granulocytes/100 WBC (Bld) 0.4 % 0.0 - 0.9 % [facility] Comment on above: Immature Granulocyte Count (IG) includes promyelocytes, myelocytes and metamyelocytes but does not include bands. Percent differential counts (%) should be interpreted in the context of the absolute cell counts (cells/UL). Interpretation and review of laboratory results Abnormal [facility] Lymphocytes (Bld) [#/Vol] 0.73 10*3/uL Low [facility] Lymphocytes/100 WBC (Bld) 8.9 % 13.0 - 44.0 % [facility] MCH (RBC) [Entitic mass] 33.4 pg 26.0 - 34.0 pg [facility] MCHC (RBC) [Mass/Vol] 33.1 g/dL 32.0 - 36.0 g/dL [facility] MCV (RBC) [Entitic vol] 101 fL High 80 - 100 fL [facility] Monocytes (Bld) [#/Vol] 1.07 10*3/uL High [facility] Monocytes/100 WBC (Bld) 13.1 % 2.0 - 10.0 % [facility] Neutrophils (Bld) [#/Vol] 6.21 10*3/uL High [facility] Comment on above: Percent differential counts (%) should be interpreted in the context of the absolute cell counts (cells/uL). Neutrophils/100 WBC (Bld) 76.1 % 40.0 - 80.0 % [facility] Nucleated RBC/100 WBC (Bld) [Ratio] 0 % [facility] Platelets (Bld) [#/Vol] 174 10*3/uL [facility] RBC (Bld) [#/Vol] 3.05 10*6/uL [facility] WBC (Bld) [#/Vol] 8.2 10*3/uL [facility] Basophils (Bld) [#/Vol] 0.02 x10*3/uL Normal 0.00-0.10 [facility] Comment on above: Performed By: #### 5 7021-8 #### GHISLAINE Baron ([id number]) [facility] ([facility]) [id number] [place] [address] Basophils/100 WBC (Bld) 0.2 % Normal 0.0-2.0 [facility] Comment on above: Performed By: #### 5 7021-8 #### GHISLAINE Baron ([id number]) [facility] ([facility]) [id number] [place] [address] Eosinophils (Bld) [#/Vol] 0.11 x10*3/uL Normal 0.00-0.40 [facility] Comment on above: Performed By: #### 5 7021-8 #### GHISLAINE Baron ([id number]) [facility] ([facility]) [address] [place] [address] Eosinophils/100 WBC (Bld) 1.3 % Normal 0.0-6.0 [facility] Comment on above: Performed By: #### 5 7021-8 #### GHISLAINE Baron ([id number]) [facility] ([facility]) [address] [place] [address] Erythrocyte distribution width (RBC) [Ratio] 12.7 % Normal 11.5-14.5 [facility] Comment on above: Performed By: #### 5 7021-8 #### GHISLAINE Baron ([id number]) [facility] ([facility]) [address] [place] [address] Hematocrit (Bld) [Volume fraction] 30.8 % Low 41.0-52.0 [facility] Comment on above: Performed By: #### 5 7021-8 #### GHISLAINE Baron ([id number]) [facility] ([facility]) [address] [place] [address] Hemoglobin (Bld) [Mass/Vol] 10.2 g/dL Low 13.5-17.5 [facility] Comment on above: Performed By: #### 5 7021-8 #### GHISLAINE Baron ([id number]) [facility] ([facility]) [address] [place] [address] Immature granulocytes (Bld) [#/Vol] 0.03 x10*3/uL Normal 0.00-0.50 [facility] Comment on above: Performed By: #### 5 7021-8 #### GHISLAINE Baron ([id number]) [facility] ([facility]) [address] [place] [address] Immature granulocytes/100 WBC (Bld) 0.4 % Normal 0.0-0.9 [facility] Comment on above: Result Comment: Pepper ture Granulocyte Count (IG) includes promyelocytes, myelocytes and metamyelocytes but does not include bands. Percent differential counts (%) should be interpreted in the context of the absolute cell counts (cells/UL). Performed By: #### 5 7021-8 #### GHISLAINE Baron ([id number]) [facility] ([facility]) [address] [place] [address] 33130 Lymphocytes (Bld) [#/Vol] 0.73 x10*3/uL Low 0.80-3.00 [facility] Comment on above: Performed By: #### 5 7021-8 #### GHISLAINE Baron ([id number]) [facility] ([facility]) [address] [place] [address] 05799 Lymphocytes/100 WBC (Bld) 8.9 % Normal 13.0-44.0 [facility] Comment on above: Performed By: #### 5 7021-8 #### GHISLAINE Baron ([id number]) [facility] ([facility]) [address] [place] [address] 90034 MCH (RBC) [Entitic mass] 33.4 pg Normal 26.0-34.0 [facility] Comment on above: Performed By: #### 5 7021-8 #### GHISLAINE Baron ([id number]) [facility] ([facility]) [address] [place] [address] 00095 MCHC (RBC) [Mass/Vol] 33.1 g/dL Normal 32.0-36.0 [facility] Comment on above: Performed By: #### 5 7021-8 #### GHISLAINE Baron ([id number]) [facility] ([facility]) [address] [place] [address] 16521 MCV (RBC) [Entitic vol] 101 fL High 80-100 [facility] Comment on above: Performed By: #### 5 7021-8 #### GHISLAINE Baron ([id number]) [facility] ([facility]) [address] [place] [address] 15777 Monocytes (Bld) [#/Vol] 1.07 x10*3/uL High 0.05-0.80 [facility] Comment on above: Performed By: #### 5 7021-8 #### GHISLAINE Baron ([id number]) [facility] ([facility]) [address] [place] [address] 47100 Monocytes/100 WBC (Bld) 13.1 % Normal 2.0-10.0 [facility] Comment on above: Performed By: #### 5 7021-8 #### GHISLAINE Baron ([id number]) [facility] ([facility]) [address] [place] [address] 05076 Neutrophils (Bld) [#/Vol] 6.21 x10*3/uL High 1.60-5.50 [facility] Comment on above: Result Comment: Perc ent differential counts (%) should be interpreted in the context of the absolute cell counts (cells/uL). Performed By: #### 5 7021-8 #### GHISLAINE Baron ([id number]) [facility] ([facility]) [address] [place] [address] 15524 Neutrophils/100 WBC (Bld) 76.1 % Normal 40.0-80.0 [facility] Comment on above: Performed By: #### 5 7021-8 #### GHISLAINE Baron ([id number]) [facility] ([facility]) [address] [place] [address] 38279 Nucleated RBC/100 WBC (Bld) [Ratio] 0.0 /100 WBCs Normal 0.0-0.0 [facility] Comment on above: Performed By: #### 5 7021-8 #### GHISLAINE Baron ([id number]) [facility] ([facility]) [address] [place] [address] 06496 Platelets (Bld) [#/Vol] 174 x10*3/uL Normal 150-450 [facility] Comment on above: Performed By: #### 5 7021-8 #### GHISLAINE aBron ([id number]) [facility] ([facility]) [address] [place] [address] 25891 RBC (Bld) [#/Vol] 3.05 x10*6/uL Low 4.50-5.90 [facility] Comment on above: Performed By: #### 5 7021-8 #### GHISLAINE Baron ([id number]) [facility] ([facility]) [address] [place] [address] 32650 WBC (Bld) [#/Vol] 8.2 x10*3/uL Normal 4.4-11.3 [facility] Comment on above: Performed By: #### 5 7021-8 #### GHISLAINE Baron ([id number]) [facility] ([facility]) [address] [place] [address] 69102 Coagulation tissue factor in ducedon 10-21-2024 PT Coag (PPP) [Time] 13.7 s High 9.8-12.8 [facility] Comment on above: Performed By: #### 5 902-2 ####GHISLAINE Baron ([id number])[facility] ([facility])[address] [place], [place] [address] ECG 12-LEADon 10-21-2024 ECG 12-LEAD Ventricular Rate 60 Atrial Rate 258 QRS Duration 192 Q-T Interval 458 QTC Calculation(Bazett) 458 R [place] -46 T [place] 84 QRS Count 10 Q Onset 188 T Offset 417 QTC Fredericia 458 Diagnosis Electronic ventricular pacemaker When compared with ECG of 21-OCT-2024 09:45, Electronic ventricular pacemaker has replaced Atrial fibrillation Confirmed by Sloan Jaimes ([id number]) on 10/28/2024 11:25:05 AM Normal [facility] Magnesiumon 10-21-2024 Magnesium [Mass/Vol] 2.22 mg/dL 1.60 - 2.40 mg/dL [facility] Magnesium [Mass/Vol] 2.22 mg/dL Normal 1.60-2.40 [facility] Comment on above: Performed By: #### 1 9123-9 ####GHISLAINE Baron ([id number])[facility] ([facility])[address] [place] [address] 49691 Magnesium [Mass/Vol]on 10-21 Interpretation and review of laboratory results Normal [facility] No Panel Informationon 10-21 [facility] PT Coag (PPP) [Time]on 10-21 INR Coag (PPP) [Relative time] 1.2 {INR} High 0.9 - 1.1 [facility] Interpretation and review of laboratory results Abnormal [facility] INR Coag (PPP) [Relative time] 1.2 High 0.9-1.1 [facility] Comment on above: Performed By: #### 5 902-2 ####GHISLAINE Baron ([id number])[facility] ([facility])[address] [place] [address] Protime-INRon 10-21-2024 PT Coag (PPP) [Time] 13.7 s High [facility] TRANSTHORACIC ECHO (TTE) FELDER ITEDon 10-21-2024 TRANSTHORACIC ECHO (TTE) [facility], [address] [place], [place] [id number] and TRANSTHORACIC ECHOCARDIOGRAM REPORT Patient Name: YOANA IBRAHIM Reading Physician: [id number] Benja Adan MD Study Date: 10/21/2024 Ordering Provider: [id number] MONSE LANDERS MRN/PID: [id number] Fellow: Nurse: Date of /Age: 4 1940 / 83 years Extension Supervisor: Fletcher Navarro RDCS Gender assigned at M Additional Staff: : Height: 167.64 cm Admit Date: Weight: 83.46 kg Admission Status: Inpatient - Routine BSA / BMI: 1.93 m2 / 29.70 kg/m2 Blood Pressure: 117/37 mmHg Department Location: [place] [address] Study Type: TRANSTHORACIC ECHO (TTE) LIMITED Diagnosis/ICD: Encounter for follow up examination after completed treatment for conditions other than malignant neoplasm-Z09; 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 QUANTITATIVE DATA SUMMARY: [id number] Benja Adan MD Electronically signed on 10/21/2024 at 10:56:59 AM Final [facility] US Heart Transthoracicon [facility], [address] [place] [address] and TRANSTHORACIC ECHOCARDIOGRAM REPORT Patient Name: YOANA IBRAHIM Reading Physician: [id number] Benja Adan MD Study Date: 10/21/2024 Ordering Provider: [id number] MONSE LANDERS MRN/PID: [id number] Fellow: Nurse: Date of /Age: 4 1940 / 83 years Extension Supervisor: Fletcher Navarro RDCS Gender assigned at M Additional Staff: : Height: 167.64 cm Admit Date: Weight: 83.46 kg Admission Status: Inpatient - Routine BSA / BMI: 1.93 m2 / 29.70 kg/m2 Blood Pressure: 117/37 mmHg Department Location: [place] [address] Study Type: TRANSTHORACIC ECHO (TTE) LIMITED Diagnosis/ICD: Encounter for follow up examination after completed treatment for conditions other than malignant neoplasm-Z09; 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 QUANTITATIVE DATA SUMMARY: [id number] Benja Adan MD Electronically signed on 10/21/2024 at 10:56:59 AM Final Benja Beth MD - 10/21/2024 [facility], [address] [place] [address] and TRANSTHORACIC ECHOCARDIOGRAM REPORT Patient Name: YOANA PATRICE Reading Physician: [id number] Benja Adan MD Study Date: 10/21/2024 Ordering Provider: [id number] MONSE LANDERS MRN/PID: [id number] Fellow: Nurse: Date of /Age: 4 1940 / 83 years Extension Supervisor: Fletcher Navarro JERE Gender assigned at M Additional Staff: : Height: 167.64 cm Admit Date: Weight: 83.46 kg Admission Status: Inpatient - Routine BSA / BMI: 1.93 m2 / 29.70 kg/m2 Blood Pressure: 117/37 mmHg Department Location: [place] [address] Study Type: TRANSTHORACIC ECHO (TTE) LIMITED Diagnosis/ICD: Encounter for follow up examination after completed treatment for conditions other than malignant neoplasm-Z09; 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 QUANTITATIVE DATA SUMMARY: [id number] Benja Adan MD Electronically signed on 10/21/2024 at 10:56:59 AM Final [facility] Work Phone: [facility] Work Phone: Abo/Rh Group Teston 10-20-19 25 ABO group Nom (Bld) A [facility] D Ag Ql (d) Positive [facility] Activated clotting timeon ACT Coag (d) 328 s High 89-169 [facility] Comment on above: Result Comment: Targ et ACT range will vary based on the patient population, clinical status, and surgical intervention occurring. Performed By: #### 3 184-9 ####GHISLAINE Baron ([id number])[facility] ([facility])[address] [place] [address] Basic metabolic 2000 panelon 10-20-2024 Anion gap [Moles/Vol] 14 mmol/L 10 - 2 0 mmol/L [facility] Calcium [Mass/Vol] 8.6 mg/dL 8.6 - 10. 6 mg/dL [facility] Chloride [Moles/Vol] 105 mmol/L 98 - 10 7 mmol/L [facility] CO2 [Moles/Vol] 28 mmol/L 21 - 32 mmol/L [facility] Creatinine [Mass/Vol] 1.38 mg/dL High 0.50 - 1.30 mg/dL [facility] GFR/1.73 sq M.predicted among non-blacks MDRD (S/P/Bld) [Vol rate/Area] 51 mL/min/{1.73_m2} Low - PINF [facility] Comment on above: Calculations of ginette mated GFR are performed using the 2020 CKD-EPI Study Refit equation without the race variable for the IDMS-Traceable creatinine methods. https://jasn.asnjournals.org/content/early//ASN.83566 70476 Glucose [Mass/Vol] 111 mg/dL High 74 - 99 mg/dL [facility] Interpretation and review of laboratory results Abnormal [facility] Potassium [Moles/Vol] 4.5 mmol/L 3.5 - 5.3 mmol/L [facility] Sodium [Moles/Vol] 142 mmol/L 136 - 145 mmol/L [facility] Urea nitrogen [Mass/Vol] 36 mg/dL High 6 - 23 mg/dL [facility] Anion gap [Moles/Vol] 14 mmol/L Normal 10-20 [facility] Comment on above: Performed By: #### 2 4321-2 #### GHISLAINE Baron ([id number]) [facility] ([facility]) [address] [place] [address] 11565 Calcium [Mass/Vol] 8.6 mg/dL Normal 8.6-10.6 [facility] Comment on above: Performed By: #### 2 4321-2 #### GHISLAINE RAE L ([id number]) [facility] ([facility]) [address] [place] [address] 35465 Chloride [Moles/Vol] 105 mmol/L Normal 98-107 [facility] Comment on above: Performed By: #### 2 4321-2 #### GHISLAINE RAE L ([id number]) [facility] ([facility]) [address] [place] [address] 29888 CO2 [Moles/Vol] 28 mmol/L Normal 21-32 [facility] Comment on above: Performed By: #### 2 4321-2 #### GHISLAINE Baron ([id number]) [facility] ([facility]) [address] [place] [address] 12228 Creatinine [Mass/Vol] 1.38 mg/dL High 0.50-1.30 [facility] Comment on above: Performed By: #### 2 4321-2 #### GHISLAINE RAE L ([id number]) [facility] ([facility]) [address] [place] [address] 45611 Glomerular filtration rate/1.73 sq M.predicted 51 mL/min/1.73m*2 Low >60 [facility] Comment on above: Result Comment: Calc ulations of estimated GFR are performed using the 2020 CKD-EPI Study Refit equation without the race variable for the IDMS-Traceable creatinine methods. https://jasn.asnjournals.org/content//ASN.01144 99383 Performed By: #### 2 4321-2 #### GHISLAINE Baron ([id number]) [facility] ([facility]) [address] [place] [address] Glucose [Mass/Vol] 111 mg/dL High 74-99 [facility] Comment on above: Performed By: #### 2 4321-2 #### GHISLAINE Baron ([id number]) [facility] ([facility]) [address] [place] [address] Potassium [Moles/Vol] 4.5 mmol/L Normal 3.5-5.3 [facility] Comment on above: Performed By: #### 2 4321-2 #### GHISLAINE Baron ([id number]) [facility] ([facility]) [address] [place] [address] 56209 Sodium [Moles/Vol] 142 mmol/L Normal 136-145 [facility] Comment on above: Performed By: #### 2 4321-2 #### GHISLAINE Baron ([id number]) [facility] ([facility]) [address] [place] [address] 71820 Urea nitrogen [Mass/Vol] 36 mg/dL High 6-23 [facility] Comment on above: Performed By: #### 2 4321-2 #### GHISLAINE Baron ([id number]) [facility] ([facility]) [address] [place] [address] 91367 Blood type AND Indirect anti body screen panelon 10-20-2024 ABO group Nom (Bld) A [facility] Comment on above: Performed By: #### 3 4532-2 #### GHISLAINE Baron ([id number]) [facility] ([facility]) [address] [place] [address] 58803 Performed By: #### V ERAB #### GHISLAINE Baron ([id number]) [facility] ([facility] [address] [place] [address] 36229 D Ag Ql (Bld) Positive [facility] Comment on above: Performed By: #### 3 2-2 #### GHISLAINE Baron ([id number]) [facility] ([facility]) [address] [place] [address] Performed By: #### V ERAB #### GHISLAINE Baron ([id number]) [facility] ([facility]) [address] [place] [address] Blood type and Indirect anti body screen panel (Bld)on 10-20-2024 ABO group Nom (Bld) A [facility] Blood group antibody screen Ql Negative [facility] D Ag Ql (Bld) Positive [facility] Blood group antibody screen Ql Negative Normal [facility] Comment on above: Performed By: #### 3 4532-2 #### GHISLAINE Baron ([id number]) [facility] ([facility]) [address] [place] [address] CARDIAC CATHETERIZATION PROC EDUREon 10-20-2024 CARDIAC CATHETERIZATION PROCEDURE [facility], [employer], [address] [place] [address] Cardiovascular Catheterization Report Patient Name: YOANA IBRAHIM Performing Physician: Gaudencio Pickering MD Study Date: 10/20/2024 Verifying Physician: Gaudencio Pickering MD MRN/PID: [id number] [employer] Programming Lead/Co-Scrub: Ordering Provider: Gaudencio PICKERING Date of 1940 Systems Applications Programming Lead: /Age: years Gender: M Fellow: [id number] Marvin Rascon MD Surgeon: Study: Left Atrial [...] guidance, transseptal puncture was performed with a [employer] system (AimWith), accessing the left atrium. The transseptal tract was then dilated with a Watchman FXD Double Curve access sheath and the ICE probe was advanced through the dilated tract into the left atrium. Next, a 6 Egyptian angled pigtail was advanced through the delivery [...] CPT Codes: Perc left atrial appendage closure (LAAC)-74263 [id number] Fabiano Pickering MD Performing Physician Final Normal [facility] CBC W Auto Differential pane l (Bld)on 10-20-2024 Basophils (Bld) [#/Vol] 0.03 10*3/uL [facility] Basophils/100 WBC (Bld) 0.6 % 0.0 - 2.0 % [facility] Eosinophils (Bld) [#/Vol] 0.09 10*3/uL [facility] Eosinophils/100 WBC (Bld) 1.7 % 0.0 - 6.0 % [facility] Erythrocyte distribution width (RBC) [Ratio] 12.5 % 11.5 - 14.5 % [facility] Hematocrit (Bld) [Volume fraction] 31.2 % Low 41.0 - 52.0 % [facility] Hemoglobin (Bld) [Mass/Vol] 10 g/dL Low 13.5 - 17.5 g/dL [facility] Immature granulocytes (Bld) [#/Vol] 0.02 10*3/uL [facility] Immature granulocytes/100 WBC (Bld) 0.4 % 0.0 - 0.9 % [facility] Comment on above: Immature Granulocyte Count (IG) includes promyelocytes, myelocytes and metamyelocytes but does not include bands. Percent differential counts (%) should be interpreted in the context of the absolute cell counts (cells/UL). Interpretation and review of laboratory results Abnormal [facility] Lymphocytes (Bld) [#/Vol] 0.71 10*3/uL Low [facility] Lymphocytes/100 WBC (Bld) 13.7 % 13.0 - 44.0 % [facility] MCH (RBC) [Entitic mass] 33.7 pg 26.0 - 34.0 pg [facility] MCHC (RBC) [Mass/Vol] 32.1 g/dL 32.0 - 36.0 g/dL [facility] MCV (RBC) [Entitic vol] 105 fL High 80 - 100 fL [facility] Monocytes (Bld) [#/Vol] 0.62 10*3/uL [facility] Monocytes/100 WBC (Bld) 12 % 2.0 - 10.0 % [facility] Neutrophils (Bld) [#/Vol] 3.71 10*3/uL [facility] Comment on above: Percent differential counts (%) should be interpreted in the context of the absolute cell counts (cells/uL). Neutrophils/100 WBC (Bld) 71.6 % 40.0 - 80.0 % [facility] Nucleated RBC/100 WBC (Bld) [Ratio] 0 % [facility] Platelets (Bld) [#/Vol] 167 10*3/uL [facility] RBC (Bld) [#/Vol] 2.97 10*6/uL [facility] WBC (Bld) [#/Vol] 5.2 10*3/uL [facility] Basophils (Bld) [#/Vol] 0.03 x10*3/uL Normal 0.00-0.10 [facility] Comment on above: Performed By: #### 5 7021-8 #### GHISLAINE Baron ([id number]) [facility] ([facility]) [address] [place] [address] 21394 Basophils/100 WBC (Bld) 0.6 % Normal 0.0-2.0 [facility] Comment on above: Performed By: #### 5 7021-8 #### GHISLAINE Baron ([id number]) [facility] ([facility]) [address] [place] [address] 74216 Eosinophils (Bld) [#/Vol] 0.09 x10*3/uL Normal 0.00-0.40 [facility] Comment on above: Performed By: #### 5 7021-8 #### GHISLAINE Baron ([id number]) [facility] ([facility]) [address] [place] [address] 80921 Eosinophils/100 WBC (Bld) 1.7 % Normal 0.0-6.0 [facility] Comment on above: Performed By: #### 5 7021-8 #### GHISLAINE Baron ([id number]) [facility] ([facility]) [address] [place] [address] 88446 Erythrocyte distribution width (RBC) [Ratio] 12.5 % Normal 11.5-14.5 [facility] Comment on above: Performed By: #### 5 7021-8 #### GHISLAINE Baron ([id number]) [facility] ([facility]) [address] [place] [address] 16985 Hematocrit (Bld) [Volume fraction] 31.2 % Low 41.0-52.0 [facility] Comment on above: Performed By: #### 5 7021-8 #### GHISLAINE Baron ([id number]) [facility] ([facility]) [address] [place] [address] 00674 Hemoglobin (Bld) [Mass/Vol] 10.0 g/dL Low 13.5-17.5 [facility] Comment on above: Performed By: #### 5 7021-8 #### GHISLAINE Baron ([id number]) [facility] ([facility]) [address] [place] [address] 62276 Immature granulocytes (Bld) [#/Vol] 0.02 x10*3/uL Normal 0.00-0.50 [facility] Comment on above: Performed By: #### 5 7021-8 #### GHISLAINE Baron ([id number]) [facility] ([facility]) [address] [place] [address] 24304 Immature granulocytes/100 WBC (Bld) 0.4 % Normal 0.0-0.9 [facility] Comment on above: Result Comment: Pepper ture Granulocyte Count (IG) includes promyelocytes, myelocytes and metamyelocytes but does not include bands. Percent differential counts (%) should be interpreted in the context of the absolute cell counts (cells/UL). Performed By: #### 5 7021-8 #### GHISLAINE Baron ([id number]) [facility] ([facility]) [address] [place] [address] 26380 Lymphocytes (Bld) [#/Vol] 0.71 x10*3/uL Low 0.80-3.00 [facility] Comment on above: Performed By: #### 5 7021-8 #### GHISLAINE Baron ([id number]) [facility] ([facility]) [address] [place] [address] 32203 Lymphocytes/100 WBC (Bld) 13.7 % Normal 13.0-44.0 [facility] Comment on above: Performed By: #### 5 7021-8 #### GHISLAINE Baron ([id number]) [facility] ([facility]) [address] [place] [address] 66830 MCH (RBC) [Entitic mass] 33.7 pg Normal 26.0-34.0 [facility] Comment on above: Performed By: #### 5 7021-8 #### GHISLAINE Baron ([id number]) [facility] ([facility]) [address] [place] [address] 84354 MCHC (RBC) [Mass/Vol] 32.1 g/dL Normal 32.0-36.0 [facility] Comment on above: Performed By: #### 5 7021-8 #### GHISLAINE Baron ([id number]) [facility] ([facility]) [address] [place] [address] MCV (RBC) [Entitic vol] 105 fL High 80-100 [facility] Comment on above: Performed By: #### 5 7021-8 #### GHISLAINE Baron ([id number]) [facility] ([facility]) [address] [place] [address] 54266 Monocytes (Bld) [#/Vol] 0.62 x10*3/uL Normal 0.05-0.80 [facility] Comment on above: Performed By: #### 5 7021-8 #### GHISLAINE Baron ([id number]) [facility] ([facility]) [address] [place] [address] 25898 Monocytes/100 WBC (Bld) 12.0 % Normal 2.0-10.0 [facility] Comment on above: Performed By: #### 5 7021-8 #### GHISLAINE Baron ([id number]) [facility] ([facility]) [address] [place] [address] 98219 Neutrophils (Bld) [#/Vol] 3.71 x10*3/uL Normal 1.60-5.50 [facility] Comment on above: Result Comment: Perc ent differential counts (%) should be interpreted in the context of the absolute cell counts (cells/uL). Performed By: #### 5 7021-8 #### GHISLAINE Baron ([id number]) [facility] ([facility]) [address] [place] [address] 39897 Neutrophils/100 WBC (Bld) 71.6 % Normal 40.0-80.0 [facility] Comment on above: Performed By: #### 5 7021-8 #### GHISLAINE Baron ([id number]) [facility] ([facility]) [address] [place] [address] 89725 Nucleated RBC/100 WBC (Bld) [Ratio] 0.0 /100 WBCs Normal 0.0-0.0 [facility] Comment on above: Performed By: #### 5 7021-8 #### GHISLAINE NIETOER L ([id number]) [facility] ([facility]) [address] [place] [address] Platelets (Bld) [#/Vol] 167 x10*3/uL Normal 150-450 [facility] Comment on above: Performed By: #### 5 7021-8 #### GHISLAINE SCHMOTZER L ([id number]) [facility] ([facility]) [address] [place] [address] RBC (Bld) [#/Vol] 2.97 x10*6/uL Low 4.50-5.90 [facility] Comment on above: Performed By: #### 5 7021-8 #### GHISLAINE QUIÑONESMOTZER L ([id number]) [facility] ([facility]) [address] [place] [address] WBC (Bld) [#/Vol] 5.2 x10*3/uL Normal 4.4-11.3 [facility] Comment on above: Performed By: #### 5 7021-8 #### GHISLAINE QUIÑONESMOTZER L ([id number]) [facility] ([facility]) [address] [place] [address] CT WATCHMAN LOW CONTRASTon 0 10-20-2024 CT WATCHMAN LOW CONTRAST Interpreted By: Chris Del Cid, STUDY: CT WATCHMAN LOW CONTRAST; 10/20/2024 12:30 pm INDICATION: Signs/Symptoms:A-fib, Pre-Watchman, CATHY Sizing, R/O CATHY Thrombus. ,I48.91 Unspecified atrial fibrillation (Multi) COMPARISON: None. ACCESSION NUMBER(S): [id number] ORDERING CLINICIAN: FABIANO PICKERING TECHNIQUE: Using multi-detector [...] Del Cid 10/20/2024 1:22 PM Dictation workstation: [id number] [facility] Comment on above: Order Comment: Era l [...] Del Cid 10/20/2024 1:22 PM Dictation workstation: [id number] [facility] Interpreted By: Chris Mehta, STUDY: CT WATCHMAN LOW CONTRAST; 10/20/2024 12:30 pm INDICATION: Signs/Symptoms:A-fib, Pre-Watchman, CATHY Sizing, R/O CATHY Thrombus. ,I48.91 Unspecified atrial fibrillation (Multi) COMPARISON: None. ACCESSION NUMBER(S): [id number] ORDERING CLINICIAN: FABIANO PICKERING TECHNIQUE: Using multi-detector [...] atrial fibrillation (Multi) COMPARISON: None. ACCESSION NUMBER(S): [id number] ORDERING CLINICIAN: FABIANO PICKERING TECHNIQUE: Using multi-detector [...] Del Cid 10/20/2024 1:22 PM Dictation workstation: [id number] [facility] Work Phone: Radiology Study observation (narrative) [facility] Work Phone: CT watchman low contrastOrde red By: Hali Del Cid on 10-20-2024 [facility] Work Phone: Coagulation tissue factor in ducedon 10-20-2024 PT Coag (PPP) [Time] 15.1 s High 9.8-12.8 [facility] Comment on above: Performed By: #### 5 902-2 #### GHISLAINE Baron ([id number]) [facility] ([facility]) [address] [place] [address] ECG 12-LEADon 10-20-2024 ECG 12-LEAD Ventricular Rate 60 Atrial Rate 59 QRS Duration 208 Q-T Interval 476 QTC Calculation(Bazett) 476 R [place] -47 T [place] 85 QRS Count 10 Q Onset 187 T Offset 425 QTC Fredericia 476 Diagnosis Electronic ventricular pacemaker When compared with ECG of 20-OCT-2024 12:46, No significant change was found Confirmed by Sloan Jaimes ([id number]) on 10/28/2024 11:23:56 AM Normal [facility] ECG 12-LEAD Ventricular Rate 61 Atrial Rate 61 QRS Duration 214 Q-T Interval 486 QTC Calculation(Bazett) 489 R [place] -51 T [place] 67 QRS Count 10 Q Onset 182 T Offset 425 QTC Fredericia 488 Diagnosis Ventricular-paced rhythm Abnormal ECG No previous ECGs available Confirmed by Eduardo Christian ([id number]) on 11/03/2024 3:26:21 PM Normal [facility] Glucose Test strip manual (B ld) [Mass/Vol]on 10-20-2024 Glucose [Mass/Vol] 106 mg/dL High 74 - 99 mg/dL [facility] Interpretation and review of laboratory results Abnormal [facility] Glucose [Mass/Vol] 106 mg/dL High 74-99 [facility] Comment on above: Performed By: #### 2 341-6 #### GHISLAINE Baron ([id number]) [facility] ([facility]) [address] [place] [address] Magnesiumon 10-20-2024 Magnesium [Mass/Vol] 2.2 mg/dL 1.60 - 2.40 mg/dL [facility] Magnesium [Mass/Vol] 2.20 mg/dL Normal 1.60-2.40 [facility] Comment on above: Performed By: #### 1 9123-9 #### GHISLAINE Baron ([id number]) [facility] ([facility]) [address] [place] [address] Magnesium [Mass/Vol]on 10-20 Interpretation and review of laboratory results Normal [facility] No Panel Informationon 10-20 [facility] PT Coag (PPP) [Time]on 10-20 INR Coag (PPP) [Relative time] 1.3 {INR} High 0.9 - 1.1 [facility] Interpretation and review of laboratory results Abnormal [facility] INR Coag (PPP) [Relative time] 1.3 High 0.9-1.1 [facility] Comment on above: Performed By: #### 5 902-2 #### GHISLAINE Baron ([id number]) [facility] ([facility]) [address] [place] [address] Protime-INRon 10-20-2024 PT Coag (PPP) [Time] 15.1 s High [facility] TRANSTHORACIC ECHO (TTE) FELDER ITEDon 10-20-2024 TRANSTHORACIC ECHO (TTE) [facility], [address] [place] [address] and TRANSTHORACIC ECHOCARDIOGRAM REPORT Patient Name: YOANA Zurita Physician: [id number] Benja Adan MD Study Date: 10/20/2024 Ordering Provider: [id number] MONSE Lal LANDERS MRN/PID: [id number] Fellow: [id number] Noemi Mcelroy MD Nurse: Date of /Age: 4 1940 / 83 years Extension Supervisor: Joelle Dale [facility] Gender assigned at M Additional Staff: : Height: 170.18 cm Admit Date: Weight: 81.65 kg Admission Status: Inpatient - Routine BSA / BMI: 1.93 m2 / 28.19 kg/m2 Blood Pressure: 133/62 mmHg Department Location: [facility] [employer] Manager Study Type: TRANSTHORACIC ECHO (TTE) LIMITED Diagnosis/ICD: Encounter for preprocedural cardiovascular examination-Z01.810 Indication: pre LAAO CPT Code: Echo Limited-73464 Study Detail: The following Echo studies were [...] proper comparison is difficult. QUANTITATIVE DATA SUMMARY: [id number] Benja Adan MD Electronically signed on 10/20/2024 at 1:47:16 PM Final [facility] US Heart Transthoracicon [facility], [address] [place] [address] and TRANSTHORACIC ECHOCARDIOGRAM REPORT Patient Name: YOANA PATRICE Yudith Physician: [id number] Benja Adan MD Study Date: 10/20/2024 Ordering Provider: [id number] MONSE LANDERS MRN/PID: [id number] Fellow: [id number] Noemi Mcelroy MD Nurse: Date of /Age: 4 1940 / 83 years Extension Supervisor: Joelle Dale [facility] Gender assigned at M Additional Staff: : Height: 170.18 cm Admit Date: Weight: 81.65 kg Admission Status: Inpatient - Routine BSA / BMI: 1.93 m2 / 28.19 kg/m2 Blood Pressure: 133/62 mmHg Department Location: [facility] [employer] Manager Study Type: TRANSTHORACIC ECHO (TTE) LIMITED Diagnosis/ICD: Encounter for preprocedural cardiovascular examination-Z01.810 Indication: pre LAAO CPT Code: Echo Limited-50945 Study Detail: The following Echo studies were [...] proper comparison is difficult. QUANTITATIVE DATA SUMMARY: [id number] Benja Adan MD Electronically signed on 10/20/2024 at 1:47:16 PM Final Benja Beth MD - 10/20/2024 [facility], [address] [place] [address] and TRANSTHORACIC ECHOCARDIOGRAM REPORT Patient Name: YOANA IBRAHIM Yudith Physician: [id number] Benja Adan MD Study Date: 10/20/2024 Ordering Provider: [id number] MONSE LANDERS MRN/PID: [id number] Fellow: [id number] Noemi Mcelroy MD Nurse: Date of /Age: 4 1940 / 83 years Extension Supervisor: Joelle Dale [facility] Gender assigned at M Additional Staff: : Height: 170.18 cm Admit Date: Weight: 81.65 kg Admission Status: Inpatient - Routine BSA / BMI: 1.93 m2 / 28.19 kg/m2 Blood Pressure: 133/62 mmHg Department Location: [facility] [employer] Manager Study Type: TRANSTHORACIC ECHO (TTE) LIMITED Diagnosis/ICD: Encounter for preprocedural cardiovascular examination-Z01.810 Indication: pre LAAO CPT Code: Echo Limited-91794 Study Detail: The following Echo studies were [...] proper comparison is difficult. QUANTITATIVE DATA SUMMARY: [id number] Benja Adan MD Electronically signed on 10/20/2024 at 1:47:16 PM Final [facility] Work Phone: Heart TransthoracicOrdere d By: Benja Adan on 10-20-2024 [facility] Work Phone: [facility] 2023 Interpretation and review of laboratory results Abnormal [facility] TB IRON 94 ug/dL 65.0 - 175.0 ug/dL [facility] TB PERCENT IRON SATURATION 40.5 % [facility] TB TOTAL IRON BINDING CAPACITY 232 ug/dL Low 250.0 - 450.0 ug/dL [facility] ECG 12 Leadon 07-30-2024 Please see the [...] 20 mg Tab) potassium chloride (Potassium Chloride (Bau-Nxzf-Ekq 10) 10 mEq oral tablet, extended release) [...] SANCHEZ, Petr Richard Where: [facility] [address] [address]- Medications What How Much When Instructions Unchanged [...] Every day Unchanged potassium chloride (Potassium Chloride (Msz-Lhzk-Qtr 10) 10 mEq oral tablet, extended release) [...] receiving van (more content not included)... Normal [facility] Urology Office/Clinic Noteon 07-25-2024 Urology Office/Clinic Note [...] with voice recognition artificial intelligence software, specifically NewGoTos, Shuame and or TokBox. Substitutions may have occurred due to the [...] prostate) s/p radiation by Dr Galvez in [place] Unsure of year of treatment or initial [...] -PSA rev (more content not included)... Normal [facility] Comment on above: Result Comment: Elec tronically Signed By: BARB Salinas APRN, Anabel Anthony\.fabian\Date and Time Signed: 07/25/24 14:18 EST Operative Reporton 4 Operative Report Operative Report Patient: YOANA IBRAHIM Age: 83 years Sex: Male : 1940 Associated Diagnoses: None Author: Petr PAINTING MD Procedure Operative Information Details: Date/ Time: 06/15/2024 18:01:00. Pre-Op Dx: BPH with obstruction/lower urinary tract symptoms (YOX19-CC N40.1, Billing Diagnosis, Medical), Chronic radiation cystitis (HKD70-PJ N30.40, Billing Diagnosis, Medical), Other obstructive and reflux uropathy (AXQ63-BJ N13.8, Discharge, Medical), Overactive bladder (OHG45-CG N32.81, Billing Diagnosis, Medical), Personal history of prostate cancer (DZA29-TH Z85.46, Billing Diagnosis, Medical). Post-Op Dx: Same. [...] Will try beta 3 agonists. . Normal [facility] Comment on above: Result Comment: Elec tronically Signed By: CINTHYA SANCHEZ, Petr Richard\.br\Date and Time Signed: 07/03/24 18:[address] cervical spine wo con 1 CT cervical spine wo [facility] [place] [address] CT Scan Report Signed Patient: Yoana Ibrahim MR#: [id number] : 1940 Acct:[id number] Age/Sex: 83 / M ADM Date: 06/29/24 [facility]: Type: [facility] CLI Attending Dr: Viky Rollins PA-C Copies to: Viky Rollins PA-C Ordering Provider: Viky Rollins PA-C Date of Service: 06/29/24 CT/CT cervical spine wo con: hyperreflexia, balance issues ([id number]) CT/CT head/brain wo con: balance issues, gait [...] Milan Dickerson M.D.06/29/2024 6:26 PM Dictation Location: [facility] Transcribed By: [facility] 06/29/241825 Dictated By: Milan Dickerson II, MD 06/29/241820 Signed By: 06/29/241825 Normal [facility] Inpatient Patient Summaryon 06-15-2024 Inpatient Patient Summary Inpatient Patient Summary [place] [address] Clinical Summary Person Information Name: YOANA IBRAHIM Age: 83 Years : 1940 Sex: Male PCP: SHANIQUE ANDERSON DO Marital Status: Unknown Race: White Ethnicity: Non- or Language: East Timorese Visit Id: Visit Reason: HX OF PROSTATE CANCER, URINARY INCONTINENCE, BPH WITH LUTS Speciality: Acuity: Enc Type: Outpatient Med Service: Surgery Arrival: 06/15/2024 09:54:01 Discharge: Dispo Type: Address: [address] [place] [id number] Provider Notes: Diagnosis: Problems Active Flank pain [...] Mouth every day. potassium chloride (Potassium Chloride (Aic-Zhws-Rns 10) 10 mEq oral tablet, extended release) [...] an appoint (more content not included)... Normal [facility] Main [place] Intraoperative Recor don 06-15-2024 Main OR Intraoperative Record Main OR Intraoperative Record IntraOp Document Type FTURO Summary Primary Physician: Petr PAINTING MD Finalized Date/Time: 06/15/24 10:42:27 Pt. Name: YOANA IBRAHIM/Sex: 1940 Male Med Rec #: [id number] Physician: Petr PAINTING MD Financial #: [id number] Pt. Type: O Room/Bed: / Admit/Disch: 06/15/24 [...] Kendall R Role Performed Surgeon - Primary Chief Information Officer - Relief Scrub - Primary Time In [...] 06/15/24 10:42 Jayna Thapa 06/15/24 10:42 Normal [facility] Main [place] Preoperative Recordo n 06-15-2024 Main OR Preoperative Record Main OR Preoperative Record Holding Area Document Type FTURO Summary Primary Physician: Petr PAINTING MD Finalized Date/Time: 06/15/24 10:17:34 Pt. Name: YOANA IBRAHIM/Sex: 1940 Male Med Rec #: [id number] Physician: Petr PAINTING MD Financial #: [id number] Pt. Type: O Room/Bed: / Admit/Disch: 06/15/24 [...] Complaints of Pain: No Skin Integrity Intact, [place], Warm, & Dry Vitals - EU Blood Pressure 157/68 Pulse 71 bpm Respirations 18 br/min SPO2 98 % Additional None Specimens Collected Last Modified By: Rosita Russell LPN 06/15/24 10:17:30 Finalized By: Rosita Russell LPN Document Signatures Signed By: Rosita Russell LPN 06/15/24 10:17 Normal [facility] Outpatient Surgery Discharge Instructionon 06-15-2024 Outpatient Surgery Discharge Instruction Outpatient Surgery Discharge Instruction [place] [id number] Patient Discharge Instructions PERSON INFORMATION Name: YOANA [...] to serve you. Thank you for choosing [facility] Normal [facility] BNP ser/plasOrdered By: Genet Cartagena on 05-10-2024 Natriuretic peptide B (Bld) [Mass/Vol] 252.0 pg/mL High 5-[address] [facility] Comment on above: Result Comment: PERF ORMED BY: [place] [address] PATHOLOGIST DEALER DEVELOPMENT MANAGER TONEY KWON M.D. Performed By: #### B MP, BNP #### [facility] [address] [place] [address] Basic Metabolic Panelon 04-14 GFR/1.73 sq M.predicted MDRD (S/P/Bld) [Vol rate/Area] 38.632 mL/min/{1.73_m2} Normal [facility] Comment on above: Performed By: #### B MP, BNP #### [facility] [address] [place] [address] [place] Calcium [Mass/volume] in Ser um or PlasmaOrdered By: Rosemary Cartagena on 05-10-2024 Calcium [Mass/Vol] 8.6 mg/dL Normal 8.6-10.3 [facility] Comment on above: Result Comment: PERF ORMED BY: [place] [address] PATHOLOGIST DEALER DEVELOPMENT MANAGER TONEY KWON M.D. Performed By: #### B MP, BNP #### [facility] [address] [place], [place] [id number] [place] Carbon dioxide, total [Moles /volume] in Serum or PlasmaOrdered By: Rosemary Cartagena on 05-10-2024 CO2 [Moles/Vol] 29.1 mmol/L Normal 21.0-31.0 [facility] Comment on above: Performed By: #### B MP, BNP #### [facility] [address] [place] [address] [place] Chloride [Moles/volume] in S ric or PlasmaOrdered By: Rosemary Cartagena on 05-10-2024 Chloride [Moles/Vol] 107 mmol/L Normal 98-107 [facility] Comment on above: Performed By: #### B MP, BNP #### [facility] [address] Creatinine [Mass/volume] in Serum or PlasmaOrdered By: Rosemary Cartagena on 05-10-2024 Creatinine [Mass/Vol] 1.75 mg/dL High 0.70-1.30 [facility] Comment on above: Performed By: #### B MP, BNP #### [facility] [address] Glucose [Mass/volume] in Ser um or PlasmaOrdered By: Rosemary Cartagena on 05-10-2024 Glucose [Mass/Vol] 286 mg/dL High 70-100 [facility] Comment on above: ADA recommended refe rence rangeRandom Glucose Reference Range is dependent on time and content of last meal. Glucose of more than 200 mg/dL in a nonstressed, ambulatory subject supports the diagnosis of Diabetes Mellitus. Result Comment: [place] om Glucose Reference Range is dependent on time and content of last meal. Glucose of more than 200 mg/dL in a nonstressed, ambulatory subject supports the diagnosis of Diabetes Mellitus. ADA recommended reference range Performed By: #### B MP, BNP #### [facility] [address] [place] [address] No Panel InformationOrdered By: Rosemary Cartagena on 05-10-2024 Estimated GFR (CKD-EPI) 38.632 mL/Min [facility] Creatinine Clearance (Chem N/A [facility] Potassium [Moles/volume] in Serum or PlasmaOrdered By: Rosemary Cartagena on 05-10-2024 Potassium [Moles/Vol] 4.7 mmol/L Normal 3.5-5.1 [facility] Comment on above: Performed By: #### B MP, BNP #### [address] Serum or plasma anion gap de terminationOrdered By: Rosemary Cartagena on 05-10-2024 Anion gap [Moles/Vol] 11.6 mmol/L Normal 6.0-15.0 [facility] Comment on above: Performed By: #### B MP, BNP #### [address] Sodium [Moles/volume] in Ser um or PlasmaOrdered By: Rosemary Cartagena on 05-10-2024 Sodium [Moles/Vol] 143 mmol/L Normal 136-145 [facility] Comment on above: Performed By: #### B MP, BNP #### [address] Urea nitrogen [Mass/volume] in Serum or PlasmaOrdered By: Rosemary Cartagena on 05-10-2024 Urea nitrogen [Mass/Vol] 38 mg/dL High 04-[address] [facility] Comment on above: Performed By: #### B MP, BNP #### [address] Physician Referralon 024 Physician Referral [id number] Normal [facility] Basic Metabolic Panelon GFR/1.73 sq M.predicted MDRD (S/P/Bld) [Vol rate/Area] 42.069 mL/min/{1.73_m2} Normal [facility] Comment on above: Performed By: #### B MP #### [address] head/brain wo/w conon CT head/brain wo/w con [facility] [place] [address] [place] [address] CT Scan Report Signed Patient: Yoana Ibrahim MR#: [id number] : 1940 Acct:[id number] Age/Sex: 83 / M ADM Date: 02/18/24 Loc: CT Room: Type: [facility] Attending Dr: Viky Rollins PA-C Copies to: [...] Mo Collier M.D.02/18/2024 4:25 PM Dictation Location: [place] [address] Transcribed By: [facility] 02/18/24 1625 Dictated By: Mo Collier DO 02/18/24 1621 Signed By: 02/18/24 1625 Normal [facility] Calcium [Mass/volume] in Ser um or PlasmaOrdered By: Saira Heart on 02-18-2024 Calcium [Mass/Vol] 9.6 mg/dL Normal 8.6-10.3 [facility] Comment on above: Result Comment: PERF ORMED BY: [place] [address] PATHOLOGIST DEALER DEVELOPMENT MANAGER TONEY KWON M.D. Performed By: #### B MP #### [address] Carbon dioxide, total [Moles /volume] in Serum or PlasmaOrdered By: Saira Heart on 02-18-2024 CO2 [Moles/Vol] 30.8 mmol/L Normal 21.0-31.0 [facility] Comment on above: Performed By: #### B MP #### [facility] [address] Chloride [Moles/volume] in S ric or PlasmaOrdered By: Saira Heart on 02-18-2024 Chloride [Moles/Vol] 103 mmol/L Normal 98-107 [facility] Comment on above: Performed By: #### B MP #### [facility] [address] Creatinine [Mass/volume] in Serum or PlasmaOrdered By: Saira Heart on 02-18-2024 Creatinine [Mass/Vol] 1.63 mg/dL High 0.70-1.30 [facility] Comment on above: Performed By: #### B MP #### [facility] [address] [place] [address] [place] Glucose [Mass/volume] in Ser um or PlasmaOrdered By: Saira Heart on 02-18-2024 Glucose [Mass/Vol] 165 mg/dL High 70-100 [facility] Comment on above: ADA recommended refe rence rangeRandom Glucose Reference Range is dependent on time and content of last meal. Glucose of more than 200 mg/dL in a nonstressed, ambulatory subject supports the diagnosis of Diabetes Mellitus. Result Comment: [place] om Glucose Reference Range is dependent on time and content of last meal. Glucose of more than 200 mg/dL in a nonstressed, ambulatory subject supports the diagnosis of Diabetes Mellitus. ADA recommended reference range Performed By: #### B MP #### [address] No Panel InformationOrdered By: Saira Heart on 02-18-2024 Estimated GFR (CKD-EPI) 42.069 mL/Min [facility] Creatinine Clearance (Chem N/A [facility] Potassium [Moles/volume] in Serum or PlasmaOrdered By: Saira Heart on 02-18-2024 Potassium [Moles/Vol] 4.5 mmol/L Normal 3.5-5.1 [facility] Comment on above: Performed By: #### B MP #### [facility] [address] Serum or plasma anion gap de terminationOrdered By: Saira Heart on 02-18-2024 Anion gap [Moles/Vol] 10.7 mmol/L Normal 6.0-15.0 [facility] Comment on above: Performed By: #### B MP #### [facility] [address] [place] [address] [place] Sodium [Moles/volume] in Ser um or PlasmaOrdered By: Saira Heart on 02-18-2024 Sodium [Moles/Vol] 140 mmol/L Normal 136-145 [facility] Comment on above: Performed By: #### B MP #### [facility] [address] [place] [address] Urea nitrogen [Mass/volume] in Serum or PlasmaOrdered By: Saira Heart on 02-18-2024 Urea nitrogen [Mass/Vol] 26 mg/dL High 7-[address] [facility] Comment on above: Performed By: #### B MP #### [facility] [address] Alanine aminotransferase [En zymatic activity/volume] in Serum or PlasmaOrdered By: Rosemary Cartagena on 12-03-2023 ALT [Catalytic activity/Vol] 12 U/L 7-[address] [facility] Albumin [Mass/volume] in Ser um or Plasma by Bromocresol green (BCG) dye binding methoOrdered By: Rosemary Cartagena on 12-03-2023 Albumin BCG dye [Mass/Vol] 4.1 g/dL 3.5-5.[address] [facility] Alkaline phosphatase [Enzyma tic activity/volume] in Serum or PlasmaOrdered By: Rosemary Cartagena on 12-03-2023 ALP [Catalytic activity/Vol] 89 U/L 34-[address] [facility] Aspartate aminotransferase [ Enzymatic activity/volume] in Serum or PlasmaOrdered By: Rosemary Cartagena on 12-03-2023 AST [Catalytic activity/Vol] 23 U/L 13-[address] [facility] Bilirubin.total [Mass/volume ] in Serum or PlasmaOrdered By: Rosemary Cartagena on 12-03-2023 Bilirubin [Mass/Vol] 0.7 mg/dL 0.3-1.0 [facility] Calcium [Mass/volume] in Ser um or PlasmaOrdered By: Rosemary Cartagena on 12-03-2023 Calcium [Mass/Vol] 9.6 mg/dL 8.6-10.3 [facility] Carbon dioxide, total [Moles /volume] in Serum or PlasmaOrdered By: Rosemary Cartagena on 12-03-2023 CO2 [Moles/Vol] 34.3 mmol/L 21.0-31.0 [facility] Chloride [Moles/volume] in S ric or PlasmaOrdered By: Rosemary Cartagena on 12-03-2023 Chloride [Moles/Vol] 103 mmol/L 98-107 [facility] Cholesterol [Mass/volume] in Serum or PlasmaOrdered By: Rosemary Cartagena on 12-03-2023 Cholesterol [Mass/Vol] 127 mg/dL 140-200 [facility] Comment on above: Chol less than 200 m g/dl low riskChol 201-239 mg/dl borderline riskChol 240 mg/dl and greater high risk Cholesterol in LDL Calc [Mas s/Vol]Ordered By: Rosemary Cartagena on 12-03-2023 Cholesterol in LDL [Mass/Vol] 29 mg/dL 0-[address] [facility] Comment on above: LDL ATP III CLASSIFI CATIONLDL less than 100 mg/dL OptimalLDL 100-129 mg/dL Near or above optimalLDL 130-159 mg/dL Borderline highLDL 160-189 mg/dL HighLDL greater than 189 mg/dL Very high Cholesterol in VLDL Calc [Ma ss/Vol]Ordered By: Rosemary Cartagena on 12-03-2023 Cholesterol in VLDL [Mass/Vol] 62 mg/dL [facility] Creatinine [Mass/volume] in Serum or PlasmaOrdered By: Rosemary Cartagena on 12-03-2023 Creatinine [Mass/Vol] 1.25 mg/dL 0.70-1.30 [facility] Globulin Calc (S) [Mass/Vol] Ordered By: Rosemary Cartagena on 12-03-2023 Globulin (S) [Mass/Vol] 2.5 g/dL [facility] Glucose [Mass/volume] in Ser um or PlasmaOrdered By: Rosemary Cartagena on 12-03-2023 Glucose [Mass/Vol] 155 mg/dL 70-100 [facility] Comment on above: ADA recommended refe [...] from glycated hemoglobin (Bld) [Mass/Vol] 143 mg/dL [facility] Hemoglobin A1c percentageOrd ered By: Rosemary Cartagena on 12-03-2023 HbA1c (Bld) [Mass fraction] 6.6 % 4.3-5.[address] [facility] Comment on above: Increased risk for d iabetes: 5.7 - 6.4diabetes: >6.4glycemic control for adults with diabetes: <7.0 Natriuretic peptide B [Mass/ Vol]Ordered By: Rosemary Cartagena on 12-03-2023 Natriuretic peptide B (Bld) [Mass/Vol] 316.0 pg/mL 5-[address] [facility] No Panel InformationOrdered By: Rosemary Cartagena on 12-03-2023 Estimated GFR (CKD-EPI) 58.211 mL/Min [facility] Creatinine Clearance (Chem N/A [facility] Potassium [Moles/volume] in Serum or PlasmaOrdered By: Rosemary Cartagena on 12-03-2023 Potassium [Moles/Vol] 4.2 mmol/L 3.5-5.1 [facility] Protein [Mass/volume] in Ser um or PlasmaOrdered By: Rosemary Cartagena on 12-03-2023 Protein [Mass/Vol] 6.6 g/dL 6.4-8.9 [facility] Serum or plasma albumin/glob ulin mass ratioOrdered By: Rosemary Cartagena on 12-03-2023 Albumin/Globulin [Mass ratio] 1.6 {ratio} [facility] Serum or plasma anion gap de terminationOrdered By: Rosemary Cartagena on 12-03-2023 Anion gap [Moles/Vol] 8.9 mmol/L 6.0-15.0 [facility] Serum or plasma high density lipoprotein (HDL) cholesterol measurementOrdered By: Rosemary Cartagena on 12-03-2023 Cholesterol in HDL [Mass/Vol] 35 mg/dL 23-[address] [facility] Comment on above: HDL CHOL ATP-III CLA SSIFICATION Cardiovascular RiskHDL > or equal to 60 mg/dL LOWHDL < 40 mg/dL HIGH Serum or plasma total choles terol/high density lipoprotein (HDL) cholesterol mass ratOrdered By: Rosemary Cartagena on 12-03-2023 Cholesterol.total/Chol esterol in HDL [Mass ratio] 3.6 {ratio} <5.[address] [facility] Sodium [Moles/volume] in Ser um or PlasmaOrdered By: Rosemary Cartagena on 12-03-2023 Sodium [Moles/Vol] 142 mmol/L 136-145 [facility] Thyrotropin [Units/volume] i n Serum or PlasmaOrdered By: Rosemary Cartagena on 12-03-2023 TSH Qn 3.73 m[IU]/L 0.45-5.[address] [facility] Triglyceride [Mass/volume] i n Serum or PlasmaOrdered By: Rosemary Cartagena on 12-03-2023 Triglyceride [Mass/Vol] 314 mg/dL 0-[address] [facility] Comment on above: TRIG ATP III CLASSIF ICATIONTRIG less than 150 mg/dL NormalTRIG 150-199 mg/dL Borderline highTRIG 200-500 mg/dL High TRIG greater than 500 mg/dL Very highStandard traceable to the Center for Disease Conrtrol and Prevention (CDC) test method. Triiodothyronine (T3) [Mass/ volume] in Serum or PlasmaOrdered By: Rosemary Cartagena on 12-03-2023 T3 [Mass/Vol] 0.93 ng/mL 0.87-1.[address] [facility] Urea nitrogen [Mass/volume] in Serum or PlasmaOrdered By: Rosemary Cartagena on 12-03-2023 Urea nitrogen [Mass/Vol] 28 mg/dL 7-[address] [facility] Alanine aminotransferase [En zymatic activity/volume] in Serum or PlasmaOrdered By: Rosemary Cartagena on 09-02-2023 ALT [Catalytic activity/Vol] 12 U/L 7-[address] [facility] Albumin [Mass/volume] in Ser um or Plasma by Bromocresol green (BCG) dye binding methoOrdered By: Rosemary Cartagena on 09-02-2023 Albumin BCG dye [Mass/Vol] 4.0 g/dL 3.5-5.[address] [facility] Alkaline phosphatase [Enzyma tic activity/volume] in Serum or PlasmaOrdered By: Rosemary Cartagena on 09-02-2023 ALP [Catalytic activity/Vol] 74 U/L 34-[address] [facility] Aspartate aminotransferase [ Enzymatic activity/volume] in Serum or PlasmaOrdered By: Rosemary Cartagena on 09-02-2023 AST [Catalytic activity/Vol] 17 U/L 13-[address] [facility] Bilirubin.total [Mass/volume ] in Serum or PlasmaOrdered By: Rosemary Cartagena on 09-02-2023 Bilirubin [Mass/Vol] 0.6 mg/dL 0.3-1.0 [facility] Calcium [Mass/volume] in Ser um or PlasmaOrdered By: Rosemary Cartagena on 09-02-2023 Calcium [Mass/Vol] 8.9 mg/dL 8.6-10.3 [facility] Carbon dioxide, total [Moles /volume] in Serum or PlasmaOrdered By: Rosemary Cartagena on 09-02-2023 CO2 [Moles/Vol] 30.5 mmol/L 21.0-31.0 [facility] Chloride [Moles/volume] in S ric or PlasmaOrdered By: Rosemary Cartagena on 09-02-2023 Chloride [Moles/Vol] 106 mmol/L 98-107 [facility] Cholesterol [Mass/volume] in Serum or PlasmaOrdered By: Rosemary Cartagena on 09-02-2023 Cholesterol [Mass/Vol] 139 mg/dL 140-200 [facility] Comment on above: Chol less than 200 m g/dl low riskChol 201-239 mg/dl borderline riskChol 240 mg/dl and greater high risk Cholesterol in LDL Calc [Mas s/Vol]Ordered By: Rosemary Cartagena on 09-02-2023 Cholesterol in LDL [Mass/Vol] 56 mg/dL 0-[address] [facility] Comment on above: LDL ATP III CLASSIFI CATIONLDL less than 100 mg/dL OptimalLDL 100-129 mg/dL Near or above optimalLDL 130-159 mg/dL Borderline highLDL 160-189 mg/dL HighLDL greater than 189 mg/dL Very high Cholesterol in VLDL Calc [Ma ss/Vol]Ordered By: Rosemary Cartagena on 09-02-2023 Cholesterol in VLDL [Mass/Vol] 51 mg/dL [facility] Creatinine [Mass/volume] in Serum or PlasmaOrdered By: Rosemary Cartagena on 09-02-2023 Creatinine [Mass/Vol] 1.10 mg/dL 0.70-1.30 [facility] Globulin Calc (S) [Mass/Vol] Ordered By: Rosemary Cartagena on 09-02-2023 Globulin (S) [Mass/Vol] 2.4 g/dL [facility] Glucose [Mass/volume] in Ser um or PlasmaOrdered By: Rosemary Cartagena on 09-02-2023 Glucose [Mass/Vol] 126 mg/dL 70-100 [facility] Comment on above: ADA recommended refe [...] from glycated hemoglobin (Bld) [Mass/Vol] 148 mg/dL [facility] Hemoglobin A1c percentageOrd ered By: Rosemary Cartagena on 09-02-2023 HbA1c (Bld) [Mass fraction] 6.8 % 4.3-5.[address] [facility] Comment on above: Increased risk for d iabetes: 5.7 - 6.4diabetes: >6.4glycemic control for adults with diabetes: <7.0 Natriuretic peptide B [Mass/ Vol]Ordered By: Rosemary Cartagena on 09-02-2023 Natriuretic peptide B (Bld) [Mass/Vol] 229.0 pg/mL 5-[address] [facility] No Panel InformationOrdered By: Rosemary Cartagena on 09-02-2023 Estimated GFR (CKD-EPI) > 60.0 mL/Min [facility] Creatinine Clearance (Chem N/A [facility] Potassium [Moles/volume] in Serum or PlasmaOrdered By: Rosemary Cartagena on 09-02-2023 Potassium [Moles/Vol] 3.9 mmol/L 3.5-5.1 [facility] Protein [Mass/volume] in Ser um or PlasmaOrdered By: Rosemary Cartagena on 09-02-2023 Protein [Mass/Vol] 6.4 g/dL 6.4-8.9 [facility] Serum or plasma albumin/glob ulin mass ratioOrdered By: Rosemary Cartagena on 09-02-2023 Albumin/Globulin [Mass ratio] 1.7 {ratio} [facility] Serum or plasma anion gap de terminationOrdered By: Rosemary Cartagena on 09-02-2023 Anion gap [Moles/Vol] TNP [facility] Comment on above: Test not performed Serum or plasma high density lipoprotein (HDL) cholesterol measurementOrdered By: Rosemary Cartagena on 09-02-2023 Cholesterol in HDL [Mass/Vol] 31 mg/dL 23-[address] [facility] Comment on above: HDL CHOL ATP-III CLA SSIFICATION Cardiovascular RiskHDL > or equal to 60 mg/dL LOWHDL < 40 mg/dL HIGH Serum or plasma total choles terol/high density lipoprotein (HDL) cholesterol mass ratOrdered By: Rosemary Cartagena on 09-02-2023 Cholesterol.total/Chol esterol in HDL [Mass ratio] 4.5 {ratio} <5.[address] [facility] Sodium [Moles/volume] in Ser um or PlasmaOrdered By: Rosemary Cartagena on 09-02-2023 Sodium [Moles/Vol] 141 mmol/L 136-145 [facility] TRANSTHORACIC ECHO (TTE) COM PLETEon 09-02-2023 TRANSTHORACIC ECHO (TTE) COMPLETE [facility] [address], [address], [place] [address] TRANSTHORACIC ECHOCARDIOGRAM REPORT Patient Name: YOANA IBRAHIM Reading Physician: [id number] Syed Flores MD, MERGED WITH [facility] Study Date: 09/02/2023 Ordering Provider: [id number] ROSEMARY CARTAGENA MRN/PID: [id number] Fellow: Nurse: Date of /Age: 4 1940 / 82 years Extension Supervisor: Sobeida Juarez RDCS, RVT Gender: M Additional Staff: Height: 167.64 cm Admit Date: Weight: 87.09 kg Admission Status: BSA: 1.97 m2 Department Location: [facility] Blood Pressure: 112 /74 mmHg Study Type: TRANSTHORACIC ECHO (TTE) COMPLETE Diagnosis/ICD: Abnormal electrocardiogram [ECG] [EKG]-R94.31; Sleep apnea, unspecified-G47.30; Permanent AFib-I48.21; Shortness of breath-R06.02 Indication: Sick Sinus Syndrome, Pacemaker/AICD, CHF, Diabetes, HTN, Hyperlipidemia, CABG, Former Smoker, Ischemic Cardiomyopathy, TIA-2017, History of Left UE DVT, Prostate Cancer CPT Codes: Echo Complete w Full Doppler-97503 Study Detail: The following Echo studies were [...] 0.6 m/s (0.6-0.9m/s) PV Max P.3 mmHg [id number] Syed Flores MD, FACC Electronically signed on 09/02/2023 at 5:11:22 PM Final [facility] Thyrotropin [Units/volume] i n Serum or PlasmaOrdered By: Rosemary Cartagena on 09-02-2023 TSH Qn 4.72 m[IU]/L 0.45-5.[address] [facility] Triglyceride [Mass/volume] i n Serum or PlasmaOrdered By: Rosemary Cartagena on 09-02-2023 Triglyceride [Mass/Vol] 259 mg/dL 0-[address] [facility] Comment on above: TRIG ATP III CLASSIF ICATIONTRIG less than 150 mg/dL NormalTRIG 150-199 mg/dL Borderline highTRIG 200-500 mg/dL High TRIG greater than 500 mg/dL Very highStandard traceable to the Center for Disease Conrtrol and Prevention (CDC) test method. Triiodothyronine (T3) [Mass/ volume] in Serum or PlasmaOrdered By: Rosemary Cartagena on 09-02-2023 T3 [Mass/Vol] 0.70 ng/mL 0.87-1.[address] [facility] US Heart TransthoracicOrdere d By: Syed Flores on 09-02-2023 Aortic Valve Area by Continuity of Peak Velocity 2.14 [facility] Work Phone: Aortic Valve Area by Continuity of VTI 2.09 [facility] Work Phone: [phone] AV mn grad 3.0 [facility] Work Phone: [phone] AV pk grad 7.3 [facility] Work Phone: [phone] AV pk diamond 1.35 [facility] Work Phone: [phone] LV A4C EF 14.5 [facility] Work Phone: [phone] LVIDd 5.30 [facility] Work Phone: [phone] LVOT diam 2.10 [facility] Work Phone: [phone] RVSP 38.8 [facility] Work Phone: [phone] [facility] Work Phone: [phone] Heart Transthoracicon [address], [address] [place] [address] TRANSTHORACIC ECHOCARDIOGRAM REPORT Patient Name: YOANA PATRICEBITA [place] Physician: [id number] Syed Flores MD, [facility]ED [facility] Study Date: 09/02/2023 Ordering Provider: [id number] ROSEMARY CARTAGENA MRN/PID: [id number] Fellow: Nurse: Date of /Age: 4 1940 / 82 years Extension Supervisor: Sobeida Juarez RDCS, RVT Gender: M Additional Staff: Height: 167.64 cm Admit Date: Weight: 87.09 kg Admission Status: BSA: 1.97 m2 Department Location: [facility] Blood Pressure: 112 /74 mmHg Study Type: TRANSTHORACIC ECHO (TTE) COMPLETE Diagnosis/ICD: Abnormal electrocardiogram [ECG] [EKG]-R94.31; Sleep apnea, unspecified-G47.30; Permanent AFib-I48.21; Shortness of breath-R06.02 Indication: Sick Sinus Syndrome, Pacemaker/AICD, CHF, Diabetes, HTN, Hyperlipidemia, CABG, Former Smoker, Ischemic Cardiomyopathy, TIA-2017, History of Left UE DVT, Prostate Cancer CPT Codes: Echo Complete w Full Doppler-[id number] Study Detail: The following Echo studies were [...] included)... Syed Simeon M D - 09/02/[address], [address], [place] [address] TRANSTHORACIC ECHOCARDIOGRAM REPORT Patient Name: YOANA [place] Physician: [id number] Syed Flores MD, [facility]ED [facility] Study Date: 09/02/2023 Ordering Provider: [id number] ROSEMARY CARTAGENA MRN/PID: [id number] Fellow: Nurse: Date of /Age: 4 1940 / 82 years Extension Supervisor: Sobeida Juarez RDCS, RVT Gender: M Additional Staff: Height: 167.64 cm Admit Date: Weight: 87.09 kg Admission Status: BSA: 1.97 m2 Department Location: [facility] Blood Pressure: 112 /74 mmHg Study Type: TRANSTHORACIC ECHO (TTE) COMPLETE Diagnosis/ICD: Abnormal electrocardiogram [ECG] [EKG]-R94.31; Sleep apnea, unspecified-G47.30; 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 [facility] Work Phone: Urea nitrogen [Mass/volume] in Serum or PlasmaOrdered By: Rosemary Cartagena on 09-02-2023 Urea nitrogen [Mass/Vol] 21 mg/dL 04-[address] [facility] ECG 12 Leadon 09-01-2023 Atrial fibrillation. Towards the second half of the EKG patient goes into ventricular paced rhythm. When not paced QRS duration [address]-T abnormality in the inferior leads when paced QRS duration 180 ms. QTc 400 ms [facility] Work Phone: OVA AND PARASITE EXAMINATION on 12-23-2021 Ova + Parasite Exam Final report Normal [facility] Comment on above: Result Comment: Thes e results were obtained using wet preparation(s) and trichrome stained smear. This test does not include testing for Cryptosporidium parvum, Cyclospora, or Microsporidia. Performed By: #### O VAPE #### [facility] [address] [place] [address] Dr. Mely Avery Result 1 Comment Normal [facility] Comment on above: Result Comment: No o va, cysts, or parasites seen. . One negative specimen does not rule out the possibility of a parasitic infection. Performed By: #### O VAPE #### [facility] [address] [place] [address] [address] Mely Avery STOOL CULTUREon 12-20-2021 Campylobacter Culture Final report Normal [facility] Comment on above: Performed By: #### C XSTOOL #### [facility] [address] [place] [address] [address] Mely Avery E coli Shiga Toxin EIA Negative Normal Negative [facility] Comment on above: Performed By: #### C XSTOOL #### [facility] [address] [place] [address] [address] Mely Avery Result 1 Comment Normal [facility] Comment on above: Result Comment: No S almonella or Shigella recovered. Performed By: #### C XSTOOL #### [facility] [address] [place] [address] [address] Mely Avery Result Comment: No C ampylobacter species isolated. Salmonella/Shigella Screen Final report Normal [facility] Comment on above: Performed By: #### C XSTOOL #### [facility] [address] [place] [address] [address] Mely Avery C. DIFF PCRon 12-16-2021 C. DIFFICILE PCR Negative Normal NEGATIVE [facility] Comment on above: Performed By: #### C DIFPOC #### [facility] [address] [place] [address] [address] Mely Avery XR lumbar spine 6V w bending on 07-25-2021 XR lumbar spine 6V w bending [facility] [employer] [facility] [employer] Other XR lumbar spine 6V w bending [facility] [employer] Other XR lumbar spine 6V w bending [address] [place] [address] [employer] Other XR lumbar spine 6V [place] [address] [employer] Other XR lumbar spine 6V w bending XRay Report [employer] Other XR lumbar spine 6V w bending Signed [employer] Other XR lumbar spine 6V w bending Patient: Yoana Ibrahim MR#: [id number] [employer] Other XR lumbar spine 6V w bending 9840 [employer] Other XR lumbar spine 6V w bending : 1940 Acct:[id number] [employer] Other XR lumbar spine 6V w bending Age/Sex: 80 / M ADM Date: 07/25/21 [employer] Other XR lumbar spine 6V w bending Loc: IN Room: Type: [facility] [employer] Other XR lumbar spine 6V w bending Attending Dr: Osvaldo Maciel MD [employer] Other XR lumbar spine 6V w bending Ordering Provider: Osvaldo Maciel MD [employer] Other XR lumbar spine 6V w bending Date of Service: 07/25/21 [employer] Other XR lumbar spine 6V w bending XR/XR lumbar spine 6V w bending: M48.062, M43.16 M51.36 [employer] Other XR lumbar spine 6V w bending Copies to: Osvaldo Maciel MD [employer] Other XR lumbar spine 6V w bending LUMBAR SPINE WITH FLEXION, EXTENSION AND BENDING VIEWS- 6 views: [employer] Other XR lumbar spine 6V w bending CLINICAL HISTORY: Pain at the mid back when bending or standing up straight. No injury. [employer] Other XR lumbar spine 6V w bending COMPARISON: CT myelogram 07/01/2021 [employer] Other XR lumbar spine 6V w bending AP neutral, right and left bending as well as lateral views in neutral, flexion and extension were [employer] Other XR lumbar spine 6V w bending obtained. There is osteopenia. 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 There is minimal ret [employer] Other XR lumbar spine 6V w bending rolisthesis of L1 on L2 and L2 on L3. There is approximately 5 mm of anterolisthesis of L4 on L5. [employer] Other XR lumbar spine 6V w bending Alignment does not change significantly with flexion or extension. No acute fractures are present. [employer] Other XR lumbar spine 6V w bending There is slight disc space narrowing, greatest at L2-3 and the lumbosacral junction. There is [employer] Other XR lumbar spine 6V w bending endplate spurring, greater proximally and facet hypertrophy, greater distally. The SI joints show [employer] Other XR lumbar spine 6V w bending mild sclerosis. There is a bladder stimulator traversing a sacral foramen on the right. There is [employer] Other XR lumbar spine 6V w bending atherosclerotic plaque at the aorta and iliac arteries. [employer] Other XR lumbar spine 6V w bending XR/XR lumbar spine 6V w bending [employer] Other XR lumbar spine 6V w bending IMPRESSION: [employer] Other XR lumbar spine 6V w bending OSTEOPENIA, SCOLIOSIS AND DEGENERATIVE CHANGES, DESCRIBED [employer] Other XR lumbar spine 6V w bending Impression dictated by: Basilia Guevara M.D.07/25/2021 4:06 PM [employer] Other XR lumbar spine 6V w bending Dictation Location: [place] [address] [employer] Other XR lumbar spine 6V w bending Transcribed By: XAVIER 07/25/21 1604 [employer] Other XR lumbar spine 6V w bending Dictated By: Basilia Guevara MD 07/25/21 1602 [employer] Other XR lumbar spine 6V w bending Signed By: [employer] Other XR lumbar spine 6V w bending 07/25/21 1606 [employer] Other Basic Metabolic Panelon 10-0 Anion gap [Moles/Vol] 11 mmol/L 9 - 17 mmol/L [place] Bun/Cre Ratio NOT REPORTED [place], [place] Calcium [Mass/Vol] 8.3 mg/dL Low 8.6 - 10. 4 mg/dL [place] Chloride [Moles/Vol] 104 mmol/L 98 - 10 7 mmol/L [place] CO2 [Moles/Vol] 26 mmol/L 20 - 31 mmol/L [place] Creatinine [Mass/Vol] 1.12 mg/dL 0.7 - 1.2 mg/dL [place] GFR >60 >60 mL/min [place], [place] GFR Non- >60 >60 mL/min [place] GFR/1.73 sq M predicted among non-blacks MDRD (S/P/Bld) [Vol rate/Area] [place], [place] Comment on above: Average GFR for 70 o r more years old: 75 mL/min/1.73sq m Chronic Kidney Disease: <60 mL/min/1.73sq m Kidney failure: <15 mL/min/1.73sq m eGFR calculated using average adult body mass. Additional eGFR calculator available at: http://www.[employer]/multiple_crcl_2012.htm GFR/1.73 sq M predicted among non-blacks MDRD (S/P/Bld) [Vol rate/Area] NOT REPORTED [place], [place] Glucose [Mass/Vol] 111 mg/dL High 70 - 99 mg/dL [place] Interpretation and review of laboratory results Abnormal [place] Potassium [Moles/Vol] 4.0 mmol/L 3.7 - 5.3 mmol/L [place] Sodium [Moles/Vol] 141 mmol/L 135 - 144 mmol/L [place] Urea nitrogen [Mass/Vol] 26 mg/dL High 8 - 23 mg/dL [place] Basic Metabolic Profon 06-13 (cont.) Normal [facility] Comment on above: Result Comment: Aver age GFR for 70 or more years old: 75 mL/min/1.73sq m Chronic Kidney Disease: <60 mL/min/1.73sq m Kidney failure: <15 mL/min/1.73sq m eGFR calculated using average adult body mass. Additional eGFR calculator available at: http://www.[employer]/multiple_crcl_2012.htm Performed By: #### C BC, BMP, MG, GLYHGB #### [facility] [address] [place] [phone] Laundry Presser: Bradley Richey MD Anion gap [Moles/Vol] 11 mmol/L Normal 9-17 [facility] Comment on above: Performed By: #### C BC, BMP, MG, GLYHGB #### [facility] [address] [place] [phone] [employer] Presser: Bradley Richey MD Calcium [Mass/Vol] 8.3 mg/dL Low 8.6-10.4 [facility] Comment on above: Performed By: #### C BC, BMP, MG, GLYHGB #### [facility] [address] [place] [phone] [employer] Presser: Bradley Richey MD Chloride [Moles/Vol] 104 mmol/L Normal 98-107 [facility] Comment on above: Performed By: #### C BC, BMP, MG, GLYHGB #### [facility] [address] [place] [phone] Laundry Presser: Bradley Richey MD CO2 [Moles/Vol] 26 mmol/L Normal 20-31 [facility] Comment on above: Performed By: #### C BC, BMP, MG, GLYHGB #### [facility] [address] [place] [address] [place] [address] Laundry Presser: Bradley Richey MD Creatinine [Mass/Vol] 1.12 mg/dL Normal 0.70-1.20 [facility] Comment on above: Performed By: #### C BC, BMP, MG, GLYHGB #### [facility] [address] [place] [phone] La[employer] Presser: Bradley Richey MD GFR, Amer >60 Normal >60 [facility] Comment on above: Performed By: #### C BC, BMP, MG, GLYHGB #### [facility] [address] [place] [phone] [employer]undry Presser: Bradley Richey MD GFR,non Amer >60 Normal >60 [facility] Comment on above: Performed By: #### C BC, BMP, MG, GLYHGB #### [facility] [address] [place] [phone] Laundry Presser: Bradley Richey MD Glucose [Mass/Vol] 111 mg/dL High 70-99 [facility] Comment on above: Performed By: #### C BC, BMP, MG, GLYHGB #### [facility] [address] [place] [phone] Laundry Presser: Bradley Richey MD Potassium [Moles/Vol] 4.0 mmol/L Normal 3.7-5.3 [facility] Comment on above: Performed By: #### C BC, BMP, MG, GLYHGB #### [facility] [address] [place] [phone] Laundry Presser: Bradley Richey MD Sodium [Moles/Vol] 141 mmol/L Normal 135-144 [facility] Comment on above: Performed By: #### C BC, BMP, MG, GLYHGB #### [facility] [address] [place] [phone] Laundry Presser: Bradley Richey MD Urea nitrogen [Mass/Vol] 26 mg/dL High 8-23 [facility] Comment on above: Performed By: #### C BC, BMP, MG, GLYHGB #### [facility] [address] [place] [phone] Laundry Presser: Bradley Richey MD BUN/CRE Ratio NOT REPORTED Normal 9-20 [facility] Comment on above: Performed By: #### C BC, BMP, MG, GLYHGB #### [facility] [address] [place] [phone] Laundry Presser: Bradley Richey MD Staging: NOT REPORTED Normal [facility] Comment on above: Performed By: #### C BC, BMP, MG, GLYHGB #### [facility] [address] [place] [phone] Laundry Presser: Bradley Richey MD CBCon 06-13-2019 Erythrocyte distribution width (RBC) [Ratio] 13.0 % Normal 11.8-14.4 [facility] Comment on above: Performed By: #### C BC, BMP, MG, GLYHGB #### [facility] [employer] [address] [place] [phone] Laundry Presser: Bradley Richey MD Hematocrit (Bld) [Volume fraction] 36.6 % Low 40.7-50.3 [facility] Comment on above: Performed By: #### C BC, BMP, MG, GLYHGB #### [facility] [address] [place] [phone] Laundry Presser: Bradley Richey MD Hemoglobin (Bld) [Mass/Vol] 11.8 g/dL Low 13.0-17.0 [facility] Comment on above: Performed By: #### C BC, BMP, MG, GLYHGB #### [facility] [address] [place] [id number] Laundry Presser: Bradley Richey MD MCH (RBC) [Entitic mass] 33.1 pg Normal 25.2-33.5 [facility] Comment on above: Performed By: #### C BC, BMP, MG, GLYHGB #### [address] [address] Laundry Presser: Bradley Richey MD MCHC (RBC) [Mass/Vol] 32.2 g/dL Normal 28.4-34.8 [facility] Comment on above: Performed By: #### C BC, BMP, MG, GLYHGB #### [address] [address] Laundry Presser: Bradley Richey MD MCV (RBC) [Entitic vol] 102.5 fL Normal 82.6-102.9 [facility] Comment on above: Performed By: #### C BC, BMP, MG, GLYHGB #### [address] [address] Laundry Presser: Bradley Richey MD NRBC Automated 0.0 per 100 WBC Normal 0.0 [facility] Comment on above: Performed By: #### C BC, BMP, MG, GLYHGB #### [address] [address] Laundry Presser: Bradley Richey MD Platelet mean volume (Bld) [Entitic vol] 9.8 fL Normal 8.1-13.5 [facility] Comment on above: Performed By: #### C BC, BMP, MG, GLYHGB #### [address] [address] Laundry Presser: Bradley Richey MD Platelets (Bld) [#/Vol] 174 10*3/uL Normal 138-453 [facility] Comment on above: Performed By: #### C BC, BMP, MG, GLYHGB #### [address] [address] Laundry Presser: Bradley Richey MD RBC (Bld) [#/Vol] 3.57 10*6/uL Low 4.21-5.77 [facility] Comment on above: Performed By: #### C BC, BMP, MG, GLYHGB #### [facility] [employer] [address] [place], [place] [id number] Laundry Presser: Bradley Richey MD WBC (Bld) [#/Vol] 8.7 10*3/uL Normal 3.5-11.3 [facility] Comment on above: Performed By: #### C BC, BMP, MG, GLYHGB #### [facility] [employer] [address] [place], [place] [phone] Laundry Presser: Bradley Richey MD Erythrocyte distribution width (RBC) [Ratio] 13.0 % 11.8 - 14.4 % [place] Hematocrit (Bld) [Volume fraction] 36.6 % Low 40.7 - 50.3 % [place] Hemoglobin (Bld) [Mass/Vol] 11.8 g/dL Low 13 - 17 g/dL [place] Interpretation and review of laboratory results Abnormal [place] MCH (RBC) [Entitic mass] 33.1 pg 25.2 - 33.5 pg [place] MCHC (RBC) [Mass/Vol] 32.2 g/dL 28.4 - 34.8 g/dL [place] MCV (RBC) [Entitic vol] 102.5 fL 82.6 - 102.9 fL [place] Platelet mean volume (Bld) [Entitic vol] 9.8 fL 8.1 - 13.5 fL [place] Platelets (Bld) [#/Vol] 174 10*3/uL [place] RBC (Bld) [#/Vol] 3.57 10*6/uL Low 4.21 - 5.77 m/uL [place] WBC (Bld) [#/Vol] 0.0 10*3/uL 0.0 per 100 WBC [place] WBC (Bld) [#/Vol] 8.7 10*3/uL [place] HEMOGLOBIN A1Con 06-13-2019 Glucose [Mass/Vol] 143 mg/dL [place] Comment on above: The ADA and AACC rec ommend providing the estimated average glucose result to permit better patient understanding of their HBA1c result. HbA1c (Bld) [Mass fraction] 6.6 % High 4 - 6 % [place] Interpretation and review of laboratory results Abnormal [place] Hemoglobin A1Con 06-13-2019 HbA1c (Bld) [Mass fraction] 6.6 % High 4.0-6.0 [facility] Comment on above: Performed By: #### C BC, BMP, MG, GLYHGB #### [employer] [address] [place] [address] [phone] Laundry Presser: Bradley Richey MD HbA1c (Bld) [Mass fraction] 143 mg/dL Normal [facility] Comment on above: Result Comment: The ADA and AACC recommend providing the estimated average glucose result to permit better patient understanding of their HBA1c result. Performed By: #### C BC, BMP, MG, GLYHGB #### [employer] [address] [place] [address] [phone] Laundry Presser: Bradley Richey MD Magnesiumon 06-13-2019 Magnesium [Mass/Vol] 1.9 mg/dL Normal 1.6-2.6 [facility] Comment on above: Performed By: #### C BC, BMP, MG, GLYHGB #### [employer] [address] [place] [address] [phone] Laundry Presser: Bradley Richey MD Magnesium [Mass/Vol] 1.9 mg/dL 1.6 - 2 .6 mg/dL [place] POC Glucose Fingerstickon Glucose [Mass/Vol] 209 mg/dL High 75 - 110 mg/dL [place] Interpretation and review of laboratory results Abnormal [place] Glucose [Mass/Vol] 165 mg/dL High 75 - 110 mg/dL [place] Interpretation and review of laboratory results Abnormal [place] XR CHEST (2 VW)on 06-13-2019 XR [...] Abdon Dolan MD 06/13/19 Final result Normal [facility] XR CHEST PORTABLEon 06-13-20 XR CHEST [...] Rosalba Brush DO 06/12/19 Final result Normal [facility] CHLORIDE (POC)on 06-12-2019 Chloride [Moles/Vol] 107 mmol/L 98 - 10 7 mmol/L [place] Creatinine W/GFR Point of Ca reon 06-12-2019 Creatinine [Mass/Vol] 1.02 mg/dL 0.51 - 1.19 mg/dL [place] GFR Non- >60 >60 mL/min [place] GFR/1.73 sq M predicted among non-blacks MDRD (S/P/Bld) [Vol rate/Area] mL/min/{1.73_m2} >60 mL/min [place] GFR/1.73 sq M predicted among non-blacks MDRD (S/P/Bld) [Vol rate/Area] [place] Comment on above: Average GFR for 70 o r more years old: 75 mL/min/1.73sq m Chronic Kidney Disease: <60 mL/min/1.73sq m Kidney failure: <15 mL/min/1.73sq m eGFR calculated using average adult body mass. Additional eGFR calculator available at: http://www.[employer]/multiple_crcl_2012.htm Hemoglobin and hematocrit, b loodon 06-12-2019 Hematocrit (Bld) [Volume fraction] 34 % Low 41 - 53 % [place] Hemoglobin (Bld) [Mass/Vol] 11.5 g/dL Low 13.5 - 17.5 g/dL [place] Otheron 06-12-2019 Interpretation and review of laboratory results Abnormal [place] POC Glucose Fingerstickon Glucose [Mass/Vol] 115 mg/dL High 75 - 110 mg/dL [place] Interpretation and review of laboratory results Abnormal [place] Glucose [Mass/Vol] 112 mg/dL High 75 - 110 mg/dL [place] Interpretation and review of laboratory results Abnormal [place] POCT Glucoseon 06-12-2019 Glucose [Mass/Vol] 120 mg/dL High 74 - 100 mg/dL [place] POTASSIUM (POC)on 06-12-2019 Potassium [Moles/Vol] 4.4 mmol/L 3.5 - 4.5 mmol/L [place] SODIUM (POC)on 06-12-2019 Sodium [Moles/Vol] 144 mmol/L 138 - 146 mmol/L [place] XR CHEST PORTABLEon 06-12-20 19 Left chest pacemaker device in place. No evidence of pneumothorax. [place] EXAMINATION: ONE XRA Y VIEW OF [...] effusion. No free air beneath the diaphragm. [facility] [place] Prieto, Mhpn Incoming Radiant Results From [employer] - 06/12/2019 10:21 PM EDT EXAMINATION: ONE [...] device in place. No evidence of pneumothorax. [place] XR KNEE RIGHT (3 VIEWS)on XR [...] by:DEEDEE Ariasigned by:Abdon Dolan MD01/17/18inal result Normal [facility] Vital Signs Date Time Vital Sign Value Performing Clinician Facility 01-31-2025 14:36-0400 Body height 166.4 cm Viky OLSEN Work Phone: [facility] 01-31-2025 14:36-0400 Body mass index (BMI) [Ratio] 28.68 kg/m2 Viky OLSEN Work Phone: [facility] 01-31-2025 14:36-0400 Body weight 79.38 kg Viky Lowe PA Work Phone: [facility] 01-31-2025 14:36-0400 Diastolic blood pressure 62 mm[Hg] Viky Lowe PA Work Phone: [facility] 01-31-2025 14:36-0400 Heart rate 64 /min Viky Lowe PA Work Phone: [facility] 01-31-2025 14:36-0400 SaO2% (BldA) [Mass fraction] 95 % Viky Lowe PA Work Phone: [facility] 01-31-2025 14:36-0400 Systolic blood pressure 118 mm[Hg] Viky Lowe PA Work Phone: [facility] 12-04-2024 14:21-0400 Body height 165.1 cm Viky Lowe PA Work Phone: [facility] 12-04-2024 14:21-0400 Body mass index (BMI) [Ratio] 29.62 kg/m2 Viky Lowe PA Work Phone: [facility] 12-04-2024 14:21-0400 Body weight 80.74 kg Viky Lowe PA Work Phone: [facility] 12-04-2024 14:21-0400 Diastolic blood pressure 60 mm[Hg] Viky Lowe PA Work Phone: [facility] 12-04-2024 14:21-0400 Systolic blood pressure 120 mm[Hg] Viky Lowe PA Work Phone: [facility] 10-27-2024 15:12-0500 Body height 165.1 cm Rosemary Cartagena MD Work Phone: [facility] 10-27-2024 15:12-0500 Body mass index (BMI) [Ratio] 30.39 kg/m2 Rosemary Cartagena MD Work Phone: [facility] 10-27-2024 15:12-0500 Body weight 82.83 kg Rosemary Cartagena MD Work Phone: [facility] 10-27-2024 15:12-0500 Diastolic blood pressure 64 mm[Hg] Rosemary Cartagena MD Work Phone: [facility] 10-27-2024 15:12-0500 Heart rate 64 /min Rosemary Cartagena MD Work Phone: [facility] 10-27-2024 15:12-0500 Systolic blood pressure 116 mm[Hg] Rosemary Cartagena MD Work Phone: [facility] 10-21-2024 11:32-0500 Body temperature 97.7 [degF] Fabiano Pickering MD Work Phone: [facility] 10-21-2024 11:32-0500 Diastolic blood pressure 49 mm[Hg] Fabiano Pickering MD Work Phone: [facility] 10-21-2024 11:32-0500 Heart rate 63 /min Fabiano Pickering MD Work Phone: [facility] 10-21-2024 11:32-0500 Respiratory rate 16 /min Fabiano Pickering MD Work Phone: [facility] 10-21-2024 11:32-0500 SaO2% (BldA) [Mass fraction] 94 % Fabiano Pickering MD Work Phone: [facility] 10-21-2024 11:32-0500 Systolic blood pressure 134 mm[Hg] Fabiano Pickering MD Work Phone: [facility] 10-21-2024 05:00-0500 Body mass index (BMI) [Ratio] 29.74 kg/m2 Fabiano Pickering MD Work Phone: [facility] 10-21-2024 05:00-0500 Body weight 83.57 kg Fabiano Pickering MD Work Phone: [facility] 10-20-2024 21:47-0500 Body height 167.6 cm Fabiano Pickering MD Work Phone: [facility] 09-01-2024 14:21-0500 Body height 165.1 cm Rosemary Cartagena MD Work Phone: [facility] 09-01-2024 14:21-0500 Body mass index (BMI) [Ratio] 30.29 kg/m2 Rosemary Cartagena MD Work Phone: [facility] 09-01-2024 14:21-0500 Body weight 82.56 kg Rosemary Cartagena MD Work Phone: [facility] 09-01-2024 14:21-0500 Diastolic blood pressure 60 mm[Hg] Rosemary Cartagena MD Work Phone: [facility] 09-01-2024 14:21-0500 Heart rate 60 /min Rosemary Cartagena MD Work Phone: [facility] 09-01-2024 14:21-0500 Systolic blood pressure 120 mm[Hg] Rosemary Cartagena MD Work Phone: [facility] 08-24-2024 14:50-0500 Body height 165.1 cm Viky Lowe PA Work Phone: [facility] 08-24-2024 14:50-0500 Diastolic blood pressure 108 mm[Hg] Viky Lowe PA Work Phone: [facility] 08-24-2024 14:50-0500 Heart rate 61 /min Viky Lowe PA Work Phone: [facility] 08-24-2024 14:50-0500 Systolic blood pressure 132 mm[Hg] Viky Lowe PA Work Phone: [facility] 07-27-2024 15:08-0500 Diastolic blood pressure 58 mm[Hg] Rosemary Cartagena MD Work Phone: [facility] 07-27-2024 15:08-0500 Systolic blood pressure 112 mm[Hg] Rosemary Cartagena MD Work Phone: [facility] 07-27-2024 14:30-0500 Body height 167.6 cm Rosemary Cartagena MD Work Phone: [facility] 07-27-2024 14:30-0500 Body mass index (BMI) [Ratio] 28.73 kg/m2 Rosemary Cartagena MD Work Phone: [facility] 07-27-2024 14:30-0500 Body weight 80.74 kg Rosemary Cartagena MD Work Phone: [facility] 07-27-2024 14:30-0500 Heart rate 62 /min Rosemary Cartagena MD Work Phone: [facility] 07-13-2024 14:18-0400 Body height 167.6 cm Viky Lowe PA Work Phone: [facility] 07-13-2024 14:18-0400 Body mass index (BMI) [Ratio] 28.57 kg/m2 Viky Lowe PA Work Phone: [facility] 07-13-2024 14:18-0400 Body weight 80.29 kg Viky Lowe PA Work Phone: [facility] 07-13-2024 14:18-0400 Diastolic blood pressure 60 mm[Hg] Viky Lowe PA Work Phone: [facility] 07-13-2024 14:18-0400 Systolic blood pressure 132 mm[Hg] Viky Lowe PA Work Phone: [facility] 06-13-2024 14:08-0400 Body height 167.6 cm Viky Lowe PA Work Phone: [facility] 06-13-2024 14:08-0400 Body mass index (BMI) [Ratio] 29.38 kg/m2 Viky Lowe PA Work Phone: [facility] 06-13-2024 14:08-0400 Body weight 82.56 kg Viky Lowe PA Work Phone: [facility] 06-13-2024 14:08-0400 Diastolic blood pressure 78 mm[Hg] Viky OLSEN Work Phone: [facility] 06-13-2024 14:08-0400 Systolic blood pressure 142 mm[Hg] Viky Rollins PA Work Phone: [facility] 04-25-2024 13:55-0400 Blood Pressure Location Anabel Orzech [facility] 04-25-2024 13:55-0400 Diastolic blood pressure 56 mm[Hg] Anabel Orzech [facility] 04-25-2024 13:55-0400 Heart rate 63 /min Anabel Orzech [facility] 04-25-2024 13:55-0400 Respiratory rate 18 /min Anabel Orzech [facility] 04-25-2024 13:55-0400 Systolic blood pressure 110 mm[Hg] Anabel Orzech [facility] 04-24-2024 13:45-0400 Body height 167.6 cm Rosemary Cartagena MD Work Phone: [facility] 04-24-2024 13:45-0400 Body mass index (BMI) [Ratio] 29.96 kg/m2 Rosemary Cartagena MD Work Phone: [facility] 04-24-2024 13:45-0400 Body weight 84.19 kg Rosemary Cartagena MD Work Phone: [facility] 04-24-2024 13:45-0400 Diastolic blood pressure 62 mm[Hg] Rosemary Cartagena MD Work Phone: [facility] 04-24-2024 13:45-0400 Heart rate 62 /min Rosemary Cartagena MD Work Phone: [facility] 04-24-2024 13:45-0400 Systolic blood pressure 104 mm[Hg] Rosemary Cartagena MD Work Phone: [facility] 04-03-2024 11:19-040 Body height 167.64 cm DO Shanique Anderson Work Phone: [facility] 04-03-2024 11:19-040 Body mass index (BMI) [Ratio] 29.3 kg/m2 DO Shanique Anderson Work Phone: [facility] 04-03-2024 [id number] Body weight 82.55 kg DO Shanique Anderson Work Phone: [facility] 04-03-2024 [id number] Diastolic blood pressure 42 mm[Hg] DO Shanique Anderson Work Phone: [facility] 04-03-2024 11:19040 Heart rate 66 /min DO Shanique Anderson Work Phone: [facility] 04-03-2024 11:19-040 Systolic blood pressure 93 mm[Hg] DO Shanique Anderson Work Phone: [facility] 12-22-2023 14:28-0400 Body height 167.6 cm Saira Heart RECREATIONAL COUNSELOR-OPHTHALMIC AIDE Work Phone: [facility] 12-22-2023 14:28-0400 Body mass index (BMI) [Ratio] 31.47 kg/m2 Saira Heart RECREATIONAL COUNSELOR-OPHTHALMIC AIDE Work Phone: [facility] 12-22-2023 14:28-040 Body weight 88.45 kg Saira Heart RECREATIONAL COUNSELOR-OPHTHALMIC AIDE Work Phone: [facility] 12-22-2023 14:28-0400 Diastolic blood pressure 50 mm[Hg] Saira Heart RECREATIONAL COUNSELOR-OPHTHALMIC AIDE Work Phone: [facility] 12-22-2023 14:28-0400 Heart rate 60 /min Saira Heart RECREATIONAL COUNSELOR-OPHTHALMIC AIDE Work Phone: [facility] 12-22-2023 14:28-0400 Systolic blood pressure 120 mm[Hg] Saira Heart RECREATIONAL COUNSELOR-OPHTHALMIC AIDE Work Phone: [facility] 12-06-2023 15:09-0400 Body height 167.6 cm Saira Heart RECREATIONAL COUNSELOR-OPHTHALMIC AIDE Work Phone: [facility] 12-06-2023 15:09-0400 Body mass index (BMI) [Ratio] 29.86 kg/m2 Saira Heart RECREATIONAL COUNSELOR-OPHTHALMIC AIDE Work Phone: [facility] 12-06-2023 15:09-0400 Body weight 83.92 kg Saira Heart RECREATIONAL COUNSELOR-OPHTHALMIC AIDE Work Phone: [facility] 12-06-2023 15:09-0400 Diastolic blood pressure 64 mm[Hg] Saira Heart RECREATIONAL COUNSELOR-OPHTHALMIC AIDE Work Phone: [facility] 12-06-2023 15:09-0400 Heart rate 60 /min Saira Heart RECREATIONAL COUNSELOR-OPHTHALMIC AIDE Work Phone: [facility] 12-06-2023 15:09-0400 Systolic blood pressure 112 mm[Hg] Saira Heart RECREATIONAL COUNSELOR-OPHTHALMIC AIDE Work Phone: [facility] 10-25-2023 15:04-0500 Body height 167.6 cm Rosemary Cartagena MD Work Phone: [facility] 10-25-2023 15:04-0500 Body mass index (BMI) [Ratio] 30.67 kg/m2 Rosemary Cartagena MD Work Phone: [facility] 10-25-2023 15:04-0500 Body weight 86.18 kg Rosemary Cartagena MD Work Phone: [facility] 10-25-2023 15:04-0500 Diastolic blood pressure 62 mm[Hg] Rosemary Cartagena MD Work Phone: [facility] 10-25-2023 15:04-0500 Heart rate 64 /min Rosemary Cartagena MD Work Phone: [facility] 10-25-2023 15:04-0500 Systolic blood pressure 118 mm[Hg] Rosemary Cartagena MD Work Phone: [facility] 09-02-2023 13:25-0500 Body height 167.[address] 09-02-2023 13:25-0500 Body mass index (BMI) [Ratio] 30.99 kg/m2 [address] 09-02-2023 13:25-0500 Body weight 87.[address] 09-02-2023 13:25-0500 Diastolic blood pressure 74 mm[Hg] [address] 09-02-2023 13:25-0500 Systolic blood pressure 112 mm[Hg] [address] 08-30-2023 11:14-0500 Diastolic blood pressure 80 mm[Hg] Rosemary Cartagena MD Work Phone: [facility] 08-30-2023 11:14-0500 Heart rate 67 /min Rosemary Cartagena MD Work Phone: [facility] 08-30-2023 11:14-0500 Systolic blood pressure 110 mm[Hg] Rosemary Cartagena MD Work Phone: [facility] 08-30-2023 11:13-0500 Body height 167.6 cm Rosemary Cartagena MD Work Phone: [facility] 08-30-2023 11:13-0500 Body mass index (BMI) [Ratio] 30.99 kg/m2 Rosemary Cartagena MD Work Phone: [facility] 08-30-2023 11:13-0500 Body weight 87.09 kg Rosemary Cartagena MD Work Phone: [facility] 04-01-2023 14:00-0400 Body height 167.64 cm Alexei Van Other [employer] Other 04-01-2023 14:00-0400 Body mass index (BMI) [Ratio] 28.73 kg/m2 Alexei Van Other [employer] Other 04-01-2023 14:00-0400 Body weight 80.74 kg Alexei Van Other [employer] Other 04-01-2023 14:00-0400 Diastolic blood pressure 74 mm[Hg] Alexei Van Other [employer] Other 04-01-2023 14:00-0400 Systolic blood pressure 140 mm[Hg] Alexei Van Other [employer] Other 03-11-2022 16:00-0400 Body height 167.64 cm Alexei Van Other [employer] [employer] Other 03-11-2022 16:00-0400 Body mass index (BMI) [Ratio] 29.05 kg/m2 Alexei Van Other [employer] Other 03-11-2022 16:00-0400 Body weight 81.65 kg Alexei Van Other [employer] Other 09-02-2021 15:40-0500 Body height 167.64 cm Osvaldo Maciel Other [employer] Other 09-02-2021 15:40-0500 Body mass index (BMI) [Ratio] 32.6 kg/m2 Osvaldo Maciel Other [employer] Other 09-02-2021 15:40-0500 Body weight 91.63 kg Osvaldo Maciel Other [employer] Other 08-25-2021 15:30-0500 Body height 167.64 cm Abdon Jackman Other [employer] Other 08-25-2021 15:30-0500 Body mass index (BMI) [Ratio] 32.6 kg/m2 Abdon Jackman Other [employer] Other 08-25-2021 15:30-0500 Body temperature 98.1 [degF] Abdon Jackman Other [employer] Other 08-25-2021 15:30-0500 Body weight 91.63 kg Abdon Jackman Other [employer] Other 08-25-2021 15:30-0500 Diastolic blood pressure 68 mm[Hg] Abdon Jackman Other [employer] Other 08-25-2021 15:30-0500 SaO2% (BldA) [Mass fraction] 98 % Abdon Jackman Other [employer] Other 08-25-2021 15:30-0500 Systolic blood pressure 136 mm[Hg] Abdon Jackman Other [employer] Other 07-24-2021 14:20-0500 Body height 167.64 cm Osvaldo Maciel Other [employer] Other 07-24-2021 14:20-0500 Body mass index (BMI) [Ratio] 32.6 kg/m2 Osvaldo Maciel Other [employer] Other 07-24-2021 14:20-0500 Body weight 91.63 kg Osvaldo Maciel Other [employer] Other 07-24-2021 14:20-0500 Diastolic blood pressure 75 mm[Hg] Osvaldo Raheem Other [facility] [employer] Other 07-24-2021 14:20-0500 Systolic blood pressure 134 mm[Hg] Osvaldo Raheem Other [employer] Other 07-03-2021 17:15-0400 Body height 167.64 cm Ryder Pollack Other [facility] [employer] Other 07-03-2021 17:15-0400 Body mass index (BMI) [Ratio] 31.95 kg/m2 Ryder Pollack Other [facility] Other 07-03-2021 17:15-0400 Body weight 89.81 kg Ryder Pollack Other [facility] [employer] Other 07-03-2021 17:15-0400 Diastolic blood pressure 60 mm[Hg] Ryder Pollack Other [facility] [employer] Other 07-03-2021 17:15-0400 SaO2% (BldA) [Mass fraction] 98 % Ryder Pollack Other [facility] Other 07-03-2021 17:15-0400 Systolic blood pressure 140 mm[Hg] Ryder Pollack Other [employer] Other 06-30-2021 16:45-0400 Body height 167.64 cm Abdon Jackman Other [facility] [employer] Other 06-30-2021 16:45-0400 Body mass index (BMI) [Ratio] 31.95 kg/m2 Abdon Jackman Other [facility] [employer] Other 06-30-2021 16:45-0400 Body temperature 97.6 [degF] Abdon Jackman Other [employer] Other 06-30-2021 16:45-0400 Body weight 89.81 kg Abdon Jackman Other [facility] [employer] Other 06-30-2021 16:45-0400 Diastolic blood pressure 68 mm[Hg] Abdon Jackman Other [employer] [employer] Other 06-30-2021 16:45-0400 SaO2% (BldA) [Mass fraction] 96 % Abdon Jackman Other [facility] [employer] Other 06-30-2021 16:45-0400 Systolic blood pressure 130 mm[Hg] Abdon Jackman Other [facility] [employer] Other 06-16-2021 15:00-0400 Body weight 89.9 kg Ryder Pollack Other [facility] [employer] Other 06-16-2021 15:00-0400 Diastolic blood pressure 76 mm[Hg] Ryder Pollack Other [facility] [employer] Other 06-16-2021 15:00-0400 Respiratory rate 18 /min Ryder Pollack Other [facility] Other 06-16-2021 15:00-0400 SaO2% (BldA) [Mass fraction] 95 % Ryder Pollack Other [facility] Other 06-16-2021 15:00-0400 Systolic blood pressure 152 mm[Hg] Ryder Pollack Other [employer] Other 06-13-2019 11:52-0400 Body Temperature 98.4 [degF] [facility] [place] 06-13-2019 11:52-0400 BP Diastolic 55 mm[Hg] [facility] [place] 06-13-2019 11:52-0400 BP Systolic 123 mm[Hg] [facility] [place] 06-13-2019 11:52-0400 Pulse (Heart Rate) 63 /min [place] 06-13-2019 11:52-0400 Respiratory Rate 20 /min [facility] [place] 06-13-2019 07:15-0400 BMI (Body Mass Index) 33.06 kg/m2 [place] 06-13-2019 07:15-0400 Body weight 92.9 kg [place], [place] 06-13-2019 07:15-0400 Height 167.6 cm [facility] [place] 06-12-2019 20:20-0400 Pulse Oximetry 93 % [place] Encounters Encounter Date Encounter Type Care Provider Facility Start: 02-02-2025 End: 02-02-2025 ambulatory [facility] Start: 01-31-2025 End: 01-31-2025 ambulatory VIKY [...] encounter procedure Shanique Anderson DO Work Phone: [facility] Start: 12-20-2024 End: 12-20-2024 ambulatory Shanique Anderson DO Work Phone: [facility] Work Phone: Start: 12-04-2024 End: 12-04-2024 [...] Start: 11-28-2024 End: 11-28-2024 ambulatory Petr PAINTING Facility:[facility] Start: 11-24-2024 ambulatory Anabel X Orzech Facilit y:[facility] [place] Start: 11-22-2024 ambulatory Petr PAINTING Facility :[facility] Start: 11-09-2024 End: 11-09-2024 Refadalberto WILKS Comment on above: Vertigo; Anxiety; Gait difficulty Start: 10-27-2024 End: 10-27-2024 ambulatory [facility] Start: 10-27-2024 End: 10-27-2024 Transitional care manage srvc 7 day discharge Rosemary Cartagena MD Work Phone: [facility] Comment on above: Falls frequently (Pr imary Dx); Hx of coronary artery bypass graft; Congestive heart failure, NYHA class 3, chronic, systolic; Ischemic cardiomyopathy; 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; Presence of Watchman left atrial appendage closure device; Chronic kidney disease, stage 3a (Multi); Other specified diabetes mellitus with other specified complication, unspecified whether medical terminologist insulin use (Multi); ICD (implantable cardioverter-defibrillator) in place; Parkinson's disease, unspecified whether dyskinesia present, unspecified whether manifestations fluctuate; Obstructive sleep apnea syndrome; Coronary artery disease involving [place] coronary artery of [place] heart without angina pectoris Start: 10-21-2024 End: 10-24-2024 [facility] Start: 10-21-2024 End: 10-21-2024 Subsequent hospital visit by physician Maria Ines [id number] Cr [id number] Holter/Ecg Resource [facility] [place] Start: 10-20-2024 End: 10-24-2024 ambulatory [facility] Start: 10-20-2024 End: 10-20-2024 Subsequent hospital visit by physician Maria Ines [address] [facility] Comment on above: Atrial fibrillation, unspecified type (Multi) Start: 10-20-2024 End: 10-21-2024 Encounter for other preprocedural examination FABIANO PICKERING [facility] Start: 10-20-2024 End: 10-21-2024 Encounter for preprocedural cardiovascular examination FABIANO PICKERING [facility] Start: 10-20-2024 End: 10-21-2024 Evaluation and management of inpatient Fabiano Pickering MD Work Phone: [facility] [place] [address] Comment on above: Atrial fibrillation, unspecified type (Multi) (Primary Dx); Preoperative examination; Presence of Watchman left atrial appendage closure device; Postoperative examination; Encounter for preprocedural cardiovascular examination; Atrial fibrillation (Multi); Congestive heart failure, NYHA class 3, chronic, systolic; Ischemic cardiomyopathy Start: 10-20-2024 End: 10-21-2024 Patient encounter status Fabiano Pickering MD Work Phone: [facility] Start: 10-20-2024 End: 10-21-2024 Preprocedural examination done Fabiano Pickering MD Work Phone: [facility] Work Phone: Start: 10-03-2024 End: 10-03-2024 ambulatory Petr PAINTING Facility: [facility] Start: 10-03-2024 End: 10-03-2024 Patient encounter procedure Petr Richard CINTHYA [facility] [place] Start: 09-27-2024 End: 09-27-2024 Office outpatient new 45 minutes Fabiano Pickering MD Work Phone: [facility] Comment on above: Persistent atrial fi brillation (Multi) (Primary Dx); ICD (implantable cardioverter-defibrillator) in place; 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 therapy (Primary Dx); Congestive heart failure, NYHA class 3, chronic, systolic; Nonrheumatic mitral valve regurgitation; Obstructive sleep apnea syndrome; Falls frequently; Hx of coronary artery bypass graft; Body mass index (BMI) of 30.0-30.9 in adult; Permanent atrial fibrillation (Multi); Ischemic cardiomyopathy; Coronary artery disease involving [place] coronary artery of [place] heart without angina pectoris; 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; Former smoker Start: 08-24-2024 End: 08-24-2024 Office outpatient visit 25 minutes Viky OLSEN Work Phone: [facility] Comment on above: Periodic limb moveme nt disorder (Primary Dx); Gait difficulty; Balance problem; Radiculopathy, lumbosacral region; Memory loss Start: 08-24-2024 End: 08-24-2024 ambulatory VIKY ROLLINS Not Available Start: 08-24-2024 End: 08-24-2024 [employer] Viky OLSEN Work Phone: [facility] Start: 08-24-2024 End: 08-24-2024 Bamboo [employer] Viky OLSEN Work Phone: [facility] Start: 07-27-2024 End: 07-27-2024 ambulatory [facility] Start: 07-27-2024 End: 07-27-2024 Office outpatient visit 25 minutes Rosemary Cartagena MD Work Phone: [facility] Comment on above: Congestive heart chris lure, NYHA class 3, chronic, systolic; 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; Hx of coronary artery bypass graft; ICD (implantable cardioverter-defibrillator) in place; Ischemic cardiomyopathy; 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; Former smoker; Body mass index (BMI) 28.0-28.9, adult; Permanent atrial fibrillation (Multi); Parkinson's disease, unspecified whether dyskinesia present, unspecified whether manifestations fluctuate; Falls frequently Start: 07-25-2024 End: 07-25-2024 ambulatory Anabel Salinas [facility] Start: 07-25-2024 End: 07-25-2024 Patient encounter procedure Anabel Salinas [facility] [place] Start: 07-13-2024 End: 07-13-2024 Office outpatient visit 25 minutes [facility]y Lowe PA [facility] Comment on above: 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); Gait difficulty; Memory loss; Chronic post-traumatic headache, not intractable; Cerebrovascular accident (CVA), unspecified mechanism (CMS/HCC); Vertigo Start: 07-13-2024 End: 07-13-2024 ambulatory VIKY LOWE Not Available Start: 07-13-2024 End: 07-13-2024 Bamboo flowsheet Viky Lowe PA Work Phone: [employer] [facility] Start: 07-13-2024 End: 07-13-2024 Bamboo flowsheet Viky Lowe PA [facility] Start: 06-29-2024 End: 06-29-2024 Patient encounter procedure DO Shanique Pecan Gap Work Phone: [facility] [address] Work Phone: Start: 06-29-2024 End: 06-29-2024 ambulatory DO Shanique Pecan Gap Work Phone: [facility] Work Phone: Start: 06-15-2024 End: 06-15-2024 ambulatory Petr PAINTING Facility:[facility] Start: 06-15-2024 End: 06-15-2024 Patient encounter procedure Petr PAINTING [facility] Start: 06-13-2024 End: 06-13-2024 ambulatory VIKY LOWE Not Available Start: 06-13-2024 End: 06-13-2024 Bamboo flowsheet Viky Lowe PA Work Phone: [employer] [address] Start: 06-13-2024 End: 06-13-2024 Bamboo flowsheet Viky OLSEN Work Phone: [facility] [place] [address] Start: 06-13-2024 End: 06-13-2024 Office outpatient visit 25 minutes Viky OLSEN [facility] Phone: [facility] Comment on above: Hyperreflexia (Prima ry Dx); Gait difficulty; Vertigo; Anxiety; Memory loss; Balance problem; Chronic post-traumatic headache, not intractable Start: 06-07-2024 End: 06-07-2024 Patient encounter procedure DO Shanique Anderson Work Phone: [facility] Start: 06-07-2024 End: 06-07-2024 ambulatory DO Shanique Anderson Work Phone: [facility] Work Phone: Start: 06-07-2024 Non-patient / Non-visit DO Vibha Anderson Work Phone: [facility] Start: 05-10-2024 End: 05-10-2024 Patient encounter procedure DO Shanique Anderson Work Phone: [facility] [place] Work Phone: Start: 05-10-2024 End: 05-10-2024 ambulatory DO Shanique Anderson Work Phone: [facility] Work Phone: Start: 04-25-2024 End: 04-25-2024 ambulatory Anabel X Orzech Facility:[facility] Start: 04-25-2024 End: 04-25-2024 Patient encounter procedure Anabel X Orzech [facility] Start: 04-24-2024 End: 04-24-2024 Office outpatient visit 25 minutes Rosemary Cartagena MD Work Phone: [facility] Comment on above: Permanent atrial fib rillation (Multi); Ischemic cardiomyopathy; Congestive heart failure, NYHA class 3, chronic, systolic (Multi); ICD (implantable cardioverter-defibrillator) in place; Coronary artery disease involving [place] coronary artery of [place] heart without angina pectoris; Hx of coronary artery bypass graft; 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; senior care 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; Other specified diabetes mellitus with other specified complication, unspecified whether medical terminologist insulin use (Multi); Obstructive sleep apnea syndrome; History of stroke; Stage 3b chronic kidney disease (Multi); BMI 29.0-29.9,adult; Former smoker; Nonrheumatic mitral valve regurgitation; Nonrheumatic aortic valve insufficiency Start: 04-24-2024 End: 04-24-2024 ambulatory [facility] Start: 04-03-2024 End: 04-03-2024 ambulatory DO Shanique Anderson Work Phone: [facility] Work Phone: Start: 04-03-2024 End: 04-03-2024 Patient encounter procedure DO Shanique Anderson Work Phone: [facility] G[facility] Work Phone: Start: 03-06-2024 End: 03-06-2024 Patient encounter procedure DO Shanique Anderson Work Phone: [facility] Start: 03-06-2024 End: 03-06-2024 ambulatory DO Shanique Anderson Work Phone: [facility] Work Phone: Start: 03-01-2024 End: 03-01-2024 ambulatory SADAF TANNER Facility:[facility] Start: 03-01-2024 End: 03-01-2024 Patient encounter procedure SADAF TANNER [facility] [place] Start: 02-23-2024 End: 02-23-2024 ambulatory VIKY ROLLINS Not Available Start: 02-18-2024 End: 02-18-2024 Patient encounter procedure DO Shanique Anderson Work Phone: [facility] [place] Work Phone: Start: 02-18-2024 End: 02-18-2024 ambulatory DO Shanique Anderson Work Phone: [facility] Work Phone: Start: 01-26-2024 ambulatory Petr PAINTING Facility:[facility] Start: 12-22-2023 End: 12-22-2023 Office outpatient visit 15 minutes Saira Heart RECREATIONAL COUNSELOR-OPHTHALMIC AIDE Work Phone: [facility] Comment on above: BMI 31.0-31.9,adult (Primary Dx); Ischemic cardiomyopathy Start: 12-06-2023 End: 12-06-2023 Office outpatient visit 15 minutes Saira Heart RECREATIONAL COUNSELOR-OPHTHALMIC AIDE Work Phone: [facility] Comment on above: BMI 29.0-29.9,adult (Primary Dx); Ischemic cardiomyopathy; 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 Start: 12-03-2023 End: 12-03-2023 ambulatory DO Shanique Anderson Work Phone: [facility] Work Phone: Start: 12-03-2023 End: 12-03-2023 Patient encounter procedure DO Shanique Anderson Work Phone: [facility] [place] Work Phone: Start: 12-03-2023 End: 12-03-2023 ambulatory DO Shanique Anderson Work Phone: [facility] Work Phone: Start: 12-03-2023 End: 12-03-2023 Patient encounter procedure DO Shanique Anderson Work Phone: [facility] Start: 10-25-2023 End: 10-25-2023 Office outpatient visit 25 minutes Rosemary Cartagena MD Work Phone: [facility] Comment on above: Bipolar disorder, cu rrent episode manic severe with psychotic features (CMS/HCC) (Primary Dx); Permanent atrial fibrillation (CMS/HCC); Ischemic cardiomyopathy; ICD (implantable cardioverter-defibrillator) in place; Hx of coronary artery bypass graft; Coronary artery disease involving [place] coronary artery of [place] heart without angina pectoris; History of stroke; Other specified diabetes mellitus with other specified complication, unspecified whether medical terminologist insulin use (CMS/HCC); 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; 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; Obstructive sleep [...] 09-16-2023 End: 09-16-2023 ambulatory Alexei Van Other [facility] Other Start: 09-16-2023 Telephone encounter Alexei Tejeda [facility] Start: 09-02-2023 End: 09-02-2023 Subsequent hospital visit by physician Farzana Griffin Echo/Vasc Room 2 [facility] Comment on above: Abnormal EKG; Sleep apnea, unspecified type; Permanent atrial fibrillation (CMS/HCC); Shortness of breath Start: 09-02-2023 End: 09-02-2023 ambulatory ROSEMARY CARTAGENA [facility] Start: 09-02-2023 End: 09-02-2023 ambulatory DO Shanique Anderson Work Phone: [facility] Work Phone: Start: 09-02-2023 End: 09-02-2023 Patient encounter procedure DO Shanique Anderson Work Phone: [facility] Start: 08-30-2023 End: 08-30-2023 Office outpatient new 60 minutes Rosemary Cartagena MD Work Phone: [facility] Comment on above: Permanent atrial fib rillation (CMS/HCC) (Primary Dx); ICD (implantable cardioverter-defibrillator) in place; Sleep apnea, unspecified type; Abnormal EKG; Hx of coronary artery bypass graft; Coronary artery disease, unspecified vessel or lesion type, unspecified whether angina present, unspecified whether [place] or transplanted heart; senior care 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; Shortness of breath; History of stroke; Benign prostatic hyperplasia with lower urinary tract symptoms, symptom details unspecified; Ischemic cardiomyopathy; Fatigue, unspecified type; Other specified diabetes mellitus with other specified complication, unspecified whether medical terminologist insulin use ([facility]) Start: 08-12-2023 End: 08-12-2023 ambulatory Alexei Van Other [facility] Other Start: 08-12-2023 Telephone encounter Alexei Tejeda [facility] Start: 04-01-2023 End: 04-01-2023 ambulatory Alexei Van Other [employer] Other Start: 04-01-2023 Patient encounter procedure Alexei BARROSO [facility] Start: 11-30-2022 End: 11-30-2022 ambulatory DO Shanique Anderson Work Phone: [facility] Work Phone: Start: 11-30-2022 End: 11-30-2022 Patient encounter procedure DO Shanique Anderson Work Phone: [facility] Car Start: 08-27-2022 Telephone encounter Alexei Tejeda [facility] Start: 08-27-2022 End: 08-27-2022 ambulatory ALEXEI VAN Facility: Start: 08-25-2022 End: 08-25-2022 ambulatory Alexei Van Other [employer] [employer] Other Start: 08-25-2022 Telephone encounter Alexei Tejeda [facility] Start: 05-12-2022 End: 05-12-2022 ambulatory Ryder Pollack Other [facility] Other Start: 05-12-2022 Telephone encounter Ryder Pollack [facility] Start: 03-11-2022 End: 03-11-2022 ambulatory Alexei Van Other [employer] Other Start: 03-11-2022 Patient encounter procedure Alexei Van [facility] Start: 12-25-[address] SHANIQUE ANDERSON Facil ity:[facility] Start: 12-16-2021 End: 12-16-2021 ambulatory ALEXEI VAN Facility:[facility] Start: 12-15-2021 End: 12-15-2021 ambulatory Alexei Van Other [facility] Other Start: 12-15-2021 Telephone encounter Alexei Van G [facility] Start: 11-26-2021 End: 11-27-[address] SHANIQUE ANDERSON Facility:[facility] Start: 09-18-2021 End: 10-28-2021 ambulatory ALBIN OLAF Facility:[facility] Start: 09-02-2021 End: 09-02-2021 ambulatory Osvaldo Maciel Other [facility] Other Start: 09-02-2021 Office outpatient vi sit 25 minutes Osvaldo Maciel [facility] Start: 08-25-2021 End: 08-25-2021 ambulatory Abdon Jackman Other [facility] Other Start: 08-25-2021 Office outpatient vi sit 25 minutes Abdon Jackman [facility] Start: 07-24-2021 End: 07-24-2021 ambulatory Osvaldo Maciel Other [employer] [employer] Other Start: 07-24-2021 Office outpatient ne w 45 minutes Osvaldo Maciel [facility] Start: 07-03-2021 Office outpatient vi sit 25 minutes Ryder Pollack [facility] Start: 07-01-2021 Telephone encounter Abdon burrell [facility] Start: 06-30-2021 Office outpatient vi sit 40 minutes Abdon Jackman [facility] Start: 06-25-2021 Telephone encounter Glenda Guillen [facility] Start: 06-24-2021 (Procedure) Short Ryder Pollack [facility] Start: 06-17-2021 Telephone encounter Ryder Pollack [facility] Start: 06-16-2021 Office outpatient vi sit 25 minutes Ryder Pollack [facility] Start: 06-16-2021 Telephone encounter Ryder Pollack [facility] Start: 06-12-2019 End: 06-13-2019 Patient encounter procedure MAXIMINOHali VALE [facility] Start: 06-12-2019 End: 06-13-2019 Subsequent hospital visit by physician Raúl Vale Work Phone: [facility] Comment on above: S/P ICD (internal ca rdiac defibrillator) procedure Start: 01-17-2018 End: 01-20-2018 [facility] Procedures Date Procedure Procedure Detail Performing Clinician Start: 10-21-2024 Ecg routine ecg w/least 12 lds trcg only w/o i&r Monse R Landers RECREATIONAL COUNSELOR-OPHTHALMIC AIDE Work Phone: Start: 10-21-2024 Echo transthorc r-t 2d w/wo m-mode rec f-up/lmtd Monse R Landers RECREATIONAL COUNSELOR-OPHTHALMIC AIDE Work Phone: Start: 10-21-2024 Basic metabolic panel calcium total Monse R Landers RECREATIONAL COUNSELOR-OPHTHALMIC AIDE Work Phone: Start: 10-20-2024 End: 10-20-2024 Basic metabolic panel calcium total Monse R Landers RECREATIONAL COUNSELOR-OPHTHALMIC AIDE Work Phone: Start: 10-20-2024 Ecg routine ecg w/least 12 lds trcg only w/o i&r Monse R Landers RECREATIONAL COUNSELOR-OPHTHALMIC AIDE Work Phone: Start: 10-20-2024 Merary-px dev eval & prog sing/dual/multi lead dfb Fabiano Pickering MD Work Phone: Start: 10-20-2024 Echo transthorc r-t 2d w/wo m-mode rec f-up/lmtd Monse Landers RECREATIONAL COUNSELOR-OPHTHALMIC AIDE Work Phone: Start: 10-20-2024 Blood typing serologic rh (d) Monse Landers RECREATIONAL COUNSELOR-OPHTHALMIC AIDE Work Phone: Start: 10-20-2024 VERAB/VERIFY ABORH Monse Holcomboway RECREATIONAL COUNSELOR-OPHTHALMIC AIDE Work Phone: Start: 10-20-2024 Ct heart contrast eval cardiac structure&morph Fabiano Pickering MD Work Phone: Start: 09-01-2024 [employer] Viky OLSEN Work Phone: Start: 07-27-2024 Ecg routine ecg w/least 12 lds w/i&r Rosemary Cartagena MD Work Phone: Start: 06-29-2024 CT cervical spine without contrast DO Shanique Pecan Gap Work Phone: Start: 06-29-2024 CT of head without contrast DO Holt Br istol Work Phone: Start: 02-18-2024 CT [...] knee 3 views FABIANO SOKOLOSKI Appendectomy Anabel OrKiteDesk Cardiac pacemaker, d evice (physical object) Anabel OrNovich Cholecystectomy Anabel Orzec h Colonoscopy Anabel Orzech Extraction of cataract Auror a Orzech History of coronary artery bypass grafting Hx of coronary artery bypass graft Rosemary Cartagena MD Work Phone: History of coronary artery bypass grafting Anabel OrNovich History of coronary artery bypass grafting Hx of coronary artery bypass graft Rosemary Cartagena MD Work Phone: History of coronary artery bypass grafting Hx of coronary artery bypass graft Rosemary aCrtagena MD Work Phone: History of coronary artery [...] - Tdap) DTaP/Tdap/Td Vaccines (2 - Tdap) [facility] Start: 07-21-2031 DTaP/Tdap/Td Vaccines (4 - Tdap) DTaP/Tdap/Td Vaccines (4 - Tdap) [facility] Start: 10-21-2025 Creatinine measurement Creatinine Level [facility] Start: 10-21-2025 Echocardiography Echocardiogram [facility] Start: 10-21-2025 Potassium measurement Potassium Level [facility] Start: 10-20-2025 Creatinine measurement Creatinine Level [facility] Start: 10-20-2025 Echocardiography Echocardiogram [facility] Start: 10-20-2025 Potassium measurement Potassium Level [facility] Start: 04-27-2025 End: 04-27-2025 Patient encounter procedure 04/27/2025 2:15 PM EDT Office Visit [facility] [address] [facility] [address] [place] [address] Rosemary Cartagena MD [address] [facility] [address] [place], [place] [id number] [facility] Start: 03-02-2025 End: 09-01-2025 Lipid 1996 panel - Serum or Plasma Lipid Panel Lab Routine Coronary artery disease involving [place] coronary artery of [place] heart without angina pectoris Expected: 03/02/2025 (Approximate), Expires: 09/01/2025 [facility] Work Phone: Comment on above: Expected: 03/02/2025 (Approximate), Expi res: 09/01/2025 Start: 02-16-2025 End: 02-16-2025 Patient encounter procedure 02/16/2025 12:45 PM EDT Appointment [address] [place] [address] [facility] Start: 01-31-2025 End: 01-31-2025 Patient encounter procedure 01/31/2025 2:20 PM EDT Office Visit [facility] [address] [place] [phone] Viky Rollins PA [address] [place] [address] [facility] Start: 01-25-2025 End: 01-25-2025 Patient encounter procedure 01/25/2025 1:30 PM EDT Office Visit [address] [place] [phone] Rosemary Cartagena MD [address] [facility] [address] [place] [address] [facility] Start: 12-04-2024 End: 12-04-2024 Patient encounter procedure 12/04/2024 2:20 PM EDT Office Visit MARI WILKS [address] [place] [phone] Viky Rollins PA [address] [place] [address] Arrived MARI WILKS Comment on above: Arrived Start: 11-30-2024 End: 11-30-2024 Patient encounter procedure [facility] [place] [address] Start: 11-06-2024 End: 11-06-2024 Patient encounter procedure 11/06/2024 11:45 AM EST Office Visit [address] [place] [phone] Rosemary Cartagena MD [address] [facility] [address] [place] [address] [facility] Start: 10-27-2024 End: 10-27-2024 Patient encounter procedure 10/27/2024 12:45 PM EST Office Visit [facility] [address] [facility] [address] [place] [address] Rosemary Cartagena MD [address] [facility] [address] [place] [address] [facility] Start: 09-27-2024 End: 09-27-2024 Telemedicine consultation with patient 09/27/2024 8:30 AM EST Telemedicine [facility] [address] [place] [facility] [address] [place] [phone] [place] [address] [address] [place], [place] [id number] [facility] Start: 09-02-2024 Echocardiography Echocardiogram [facility] Start: 09-01-2024 End: 09-01-2025 Comprehensive metabolic 2000 panel - Serum or Plasma Comprehensive Metabolic Panel Lab Routine 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 Expected: 09/01/2024 (Approximate), Expires: 09/01/2025 [facility] Work Phone: Comment on above: Expected: 09/01/2024 (Approximate), Expi res: 09/01/2025 Start: 08-24-2024 End: 08-24-2024 Patient encounter procedure 08/24/2024 3:00 PM EST [facility] [address] [facility] [address] [place] [address] Viky Rollins PA [address] [place] [address] [facility] [address] [facility] Comment [...] 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 Expected: 07/27/2024 (Approximate), Expires: 07/27/2025 [facility] Work Phone: Comment on above: Expected: 07/27/2024 (Approximate), Expi res: 07/27/2025 Start: 07-27-2024 End: 07-27-2024 Patient encounter procedure 07/27/2024 2:00 PM EST Office Visit [facility] [address] [facility] [address] [place] [address] Rosemary Cartagena MD [address] [facility] [address] [place] [address] [facility] [facility] Start: 07-13-2024 End: 07-13-2024 Patient encounter procedure [facility] Comment on above: Arrived Start: 06-13-2024 End: 06-13-2025 CT Cervical spine WO contrast CT cervical spine wo IV contrast Imaging Routine Hyperreflexia Balance problem Expected: 06/13/2024 (Approximate), Expires: 06/13/2025 [facility] Comment on above: Expected: 06/13/2024 (Approximate), Expi res: 06/13/2025 Start: 06-13-2024 End: 06-13-2025 CT Head WO contrast CT head wo IV contrast Imaging Routine Gait difficulty Balance problem Expected: 06/13/2024 (Approximate), Expires: 06/13/2025 [facility] Work Phone: Comment on above: Expected: 06/13/2024 (Approximate), Expi res: 06/13/2025 Start: 05-14-2024 COVID-19 Vaccine () COVID-19 Vaccine ( season) [facility] Start: 05-14-2024 COVID-19 Vaccine ( season) COVID-19 Vaccine () [facility] Start: 05-14-2024 COVID-19 Vaccine () COVID-19 Vaccine () [facility] Start: 05-14-2024 Influenza vaccination [facility] Start: 05-08-2024 End: 04-24-2025 Basic metabolic 2000 panel - Serum or Plasma Basic Metabolic Panel Lab Routine Congestive heart failure, NYHA class 3, chronic, systolic (Multi) Expected: 05/08/2024 (Approximate), Expires: 04/24/2025 [facility] Work Phone: Comment on above: Expected: 05/08/2024 (Approximate), Expi res: 04/24/2025 Start: 05-08-2024 End: 04-24-2025 Natriuretic peptide B [Mass/volume] in Blood B-Type Natriuretic Peptide Lab Routine Congestive heart failure, NYHA class 3, chronic, systolic (Multi) Expected: 05/08/2024 (Approximate), Expires: 04/24/2025 [facility] Work Phone: Comment on above: Expected: 05/08/2024 (Approximate), Expi res: 04/24/2025 Start: 02-28-2024 End: 02-28-2024 Patient encounter procedure 02/28/2024 1:45 PM EDT Office Visit [address] [place] [address] Rosemary Cartagena MD [address] [place] [address] [address] [place], [place] [id number] [facility] Start: 01-31-2024 End: 01-31-2024 Patient encounter procedure 01/31/2024 2:30 PM EDT Office Visit [facility] [address] [place] [address] [address] [place] [phone] Saira Heart, RECREATIONAL COUNSELOR-OPHTHALMIC AIDE [address] [facility], [address] [place] [address] [facility] Start: 01-03-2024 Glaucoma screening Diabetes: Retinopathy Screening [facility] Start: 12-29-2023 End: 12-29-2023 Patient encounter procedure 12/29/2023 1:30 PM EDT Office Visit [address] [place] [address] Saira Heart, RECREATIONAL COUNSELOR-OPHTHALMIC AIDE [address] [facility], [address] [place] [address] [facility] Start: 12-22-2023 End: 12-21-2024 Basic metabolic 2000 panel - Serum or Plasma Basic Metabolic Panel Lab Routine Ischemic cardiomyopathy Expected: 12/22/2023 (Approximate), Expires: 12/21/2024 [facility] Work Phone: Comment on above: Expected: 12/22/2023 (Approximate), Expi res: 12/21/2024 Start: 12-03-[address] [facility] Start: 11-24-2023 End: 11-24-2023 Patient encounter procedure 11/24/2023 2:00 PM EDT Office Visit [address] [place] [address] Saira Heart, RECREATIONAL COUNSELOR-OPHTHALMIC AIDE [address] [facility] [address], [address] [place] [address] [facility] Start: 11-08-2023 End: 10-25-2024 Basic metabolic 2000 panel - Serum or Plasma Basic Metabolic Panel Lab Routine Ischemic cardiomyopathy 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 Medication course changed Expected: 11/08/2023 (Approximate), Expires: 10/25/2024 [facility] Work Phone: Comment on above: Expected: 11/08/2023 (Approximate), Expi res: 10/25/2024 Start: 10-25-2023 End: 10-25-2023 Patient encounter procedure 10/25/2023 2:15 PM EST Office Visit [address] [place] [address] Rosemary Cartagena MD [address] [place] [address] [address] [place] [address] [facility] Start: 09-02-2023 End: 09-02-2023 Patient encounter procedure 09/02/2023 1:30 PM EST Appointment [facility] [address] [facility] [address] [place] [phone] [facility] Start: 08-30-2023 End: 08-30-2024 CBC panel - Blood by Automated count CBC Lab Routine senior care 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 Expected: 08/30/2023 (Approximate), Expires: 08/30/2024 [facility] Work Phone: Comment on above: Expected: 08/30/2023 (Approximate), Expi res: 08/30/2024 Start: 08-30-2023 End: 08-30-2024 Comprehensive metabolic 2000 panel - Serum or Plasma Comprehensive Metabolic Panel Lab Routine Hx of coronary artery bypass graft Coronary artery disease, unspecified vessel or lesion type, unspecified whether angina present, unspecified whether [place] or transplanted heart Sleep apnea, unspecified type Expected: 08/30/2023 (Approximate), Expires: 08/30/2024 [facility] Work Phone: Comment on above: Expected: 08/30/2023 (Approximate), Expi res: 08/30/2024 Start: 08-30-2023 End: 08-30-2024 Hemoglobin A1c/Hemoglobin.total in Blood Hemoglobin A1C Lab Routine Shortness of breath History of stroke Benign prostatic hyperplasia with lower urinary tract symptoms, symptom details unspecified Ischemic cardiomyopathy Other specified diabetes mellitus with other specified complication, unspecified whether fdc insulin use ([facility]) Expected: 08/30/2023 (Approximate), Expires: 08/30/2024 [facility] Work Phone: Comment on above: Expected: 08/30/2023 (Approximate), Expi res: 08/30/2024 Start: 08-30-2023 End: 08-30-2024 Lipid 1996 panel - Serum or Plasma Lipid Panel Lab Routine 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 Coronary artery disease, unspecified vessel or lesion type, unspecified whether angina present, unspecified whether [place] or transplanted heart Sleep apnea, unspecified type 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 Shortness of breath History of stroke Benign prostatic hyperplasia with lower urinary tract symptoms, symptom details unspecified Ischemic cardiomyopathy Expected: 08/30/2023 (Approximate), Expires: 08/30/2024 [facility] Work Phone: Comment on above: Expected: 08/30/2023 (Approximate), Expi res: 08/30/2024 Start: 08-30-2023 End: 08-30-2024 Natriuretic peptide B [Mass/volume] in Blood B-Type Natriuretic Peptide Lab Routine Abnormal EKG Hx of coronary artery bypass graft Coronary artery disease, unspecified vessel or lesion type, unspecified whether angina present, unspecified whether [place] or transplanted heart Permanent atrial fibrillation (CMS/HCC) Shortness of breath Ischemic cardiomyopathy Expected: 08/30/2023 (Approximate), Expires: 08/30/2024 [facility] Work Phone: Comment on above: Expected: 08/30/2023 (Approximate), Expi res: 08/30/2024 Start: 08-30-2023 End: 08-30-2024 Thyrotropin [Units/volume] in Serum or Plasma Thyroid Stimulating Hormone Lab Routine Shortness of breath History of stroke Benign prostatic hyperplasia with lower urinary tract symptoms, symptom details unspecified Ischemic cardiomyopathy Fatigue, unspecified type Expected: 08/30/2023 (Approximate), Expires: 08/30/2024 [facility] Work Phone: Comment on above: Expected: 08/30/2023 (Approximate), Expi res: 08/30/2024 Start: 08-30-2023 End: 08-30-2024 Triiodothyronine (T3) [Mass/volume] in Serum or Plasma Triiodothyronine, Total Lab Routine Shortness of breath History of stroke Benign prostatic hyperplasia with lower urinary tract symptoms, symptom details unspecified Ischemic cardiomyopathy Expected: 08/30/2023 (Approximate), Expires: 08/30/2024 [facility] Work Phone: Comment on above: Expected: 08/30/2023 (Approximate), Expi res: 08/30/2024 Start: 08-30-2023 End: 08-30-2025 US Heart Transthoracic Transthoracic Echo (TTE) Complete Echocardiography Routine Abnormal EKG Sleep apnea, unspecified type Permanent atrial fibrillation (CMS/HCC) Shortness of breath Expected: 08/30/2023 (Approximate), Expires: 08/30/2025 [facility] Work Phone: Comment on above: Expected: 08/30/2023 (Approximate), Expi res: 08/30/2025 Start: 07-25-2023 Screening for osteoporosis Bone Density Scan [facility] Start: 05-14-2023 COVID-19 Vaccine ( season) COVID-19 Vaccine ( season) [facility] Start: 05-14-2023 COVID-19 Vaccine ( season) COVID-19 Vaccine ( season) [facility] Start: 05-14-2023 Influenza vaccination Influenza Vaccine (#1) [facility] Start: 01-02-2023 Glaucoma screening Diabetes: Retinopathy Screening [facility] Start: 07-25-2022 Screening for osteoporosis Bone Density Scan [facility] Start: 07-22-2021 DTaP/Tdap/Td Vaccines (1 - Tdap) DTaP/Tdap/Td Vaccines (1 - Tdap) [facility] Start: 06-12-2020 Creatinine monitoring Creatinine monitoring [place], [place] Start: 06-12-2020 Potassium monitoring Potassium monitoring [place], [place] Start: 05-14-2019 Influenza vaccination Flu vaccine (#1) [place], [place] Start: 03-05-2019 Annual Wellness Visit (AWV) Annual Wellness Visit (AWV) [place], [place] Start: 2017 RSV High Risk: (Elderly (60+) or Population) (1 - 1-dose 75+ series) RSV High Risk: (Elderly (60+) or Population) (1 - 1-dose 75+ series) [facility] Start: 12-19-2007 Pneumococcal 65+ years Vaccine (1 of 2 - PCV13) Pneumococcal 65+ years Vaccine (1 of 2 - PCV13) [place], [place] Start: 2002 RSV patients and/or patients aged 60+ years (1 - 1-dose 60+ series) RSV patients and/or patients aged 60+ years (1 - 1-dose 60+ series) [facility] Start: 1992 Shingles Vaccine (1 of 2) Shingles Vaccine (1 of 2) [place], [place] Start: 1992 Zoster Vaccines (1 of 2) Zoster Vaccines (1 of 2) [facility] Start: 1961 DTaP/Tdap/Td vaccine (1 - Tdap) DTaP/Tdap/Td vaccine (1 - Tdap) [place], [place] Start: 1961 Urine screening for protein Diabetes: Urine Protein Screening [facility] Start: 1952 Diabetic foot examination Diabetes: Foot Exam [facility] Start: 1948 Pneumococcal Vaccine: 65+ Years (1 - PCV) Pneumococcal Vaccine: 65+ Years (1 - PCV) [facility] Start: 1948 Pneumococcal Vaccine: 65+ Years (1 of 2 - PCV) Pneumococcal Vaccine: 65+ Years (1 of 2 - PCV) [facility] Start: 06-19-1943 COVID-19 Vaccine (#1) COVID-19 Vaccine (#1) [facility] Start: 1942 Creatinine measurement Creatinine Level [facility] Start: 1942 Hemoglobin A1c measurement Diabetes: Hemoglobin A1C [facility] Start: 1942 Lipid panel Lipid Panel [facility] Start: 1942 Medicare Annual Wellness Visit Medicare Annual Wellness Visit (AWV) [facility] Start: 1942 Potassium measurement Potassium Level [facility] Start: 1942 Urine screening for protein Diabetes: Urine Protein Screening [facility] End: 10-20-2024 Basic metabolic 2000 panel - Serum or Plasma Basic metabolic panel Lab STAT STAT (Lab) for 1 Occurrences starting 10/20/2024 until 10/20/2024 [facility] Work Phone: Comment on above: STAT (Lab) for 1 Occurrences starting until 10/20/2024 End: 10-23-2024 Basic metabolic 2000 panel - Serum or Plasma Basic Metabolic Panel Lab Routine Morning draw (Lab) for 3 Occurrences starting 10/21/2024 until 10/23/2024, 1 completed [facility] Work Phone: Comment on above: Morning draw (Lab) for 3 Occurrences sta rting 10/21/2024 until 10/23/2024, 1 completed End: 06-12-2019 Cardiac catheterization Cardiac Catheterization Cardiac Cath Routine One Time for 1 Occurrences starting 06/12/2019 until 06/12/2019 [place] Comment on above: One Time for 1 Occurrences starting 05/16 until 06/12/2019 End: 09-29-2024 Cardiac catheterization study [facility] Work Phone: Comment on above: Once for 1 Occurrences starting 09/29/19 until 09/29/2024 Cardiac Device Check - Surgery Cardiac Device Check - Surgery Implantable Cardiac Device Routine Atrial fibrillation (Multi) 10/20/2024 4:42 PM EST [facility] Work Phone: End: 10-20-2024 CBC W Auto Differential panel - Blood CBC and Auto Differential Lab STAT STAT (Lab) for 1 Occurrences starting 10/20/2024 until 10/20/2024 [facility] Work Phone: Comment on above: STAT (Lab) for 1 Occurrences starting until 10/20/2024 End: 10-23-2024 CBC W Auto Differential panel - Blood CBC and Auto Differential Lab Routine Morning draw (Lab) for 3 Occurrences starting 10/21/2024 until 10/23/2024, 1 completed [facility] Work Phone: Comment on above: Morning draw (Lab) for 3 Occurrences sta rting 10/21/2024 until 10/23/2024, 1 completed End: 10-20-2024 ECG 12 lead [facility] Work Phone: Comment on above: Once for 1 Occurrences starting 10/20/19 until 10/20/2024 As needed until disc ontinued starting 10/20/2024 End: 10-22-2024 ECG 12 lead daily ECG 12 lead daily ECG Routine Daily for 3 Days starting 10/20/2024 until 10/22/2024 [facility] Work Phone: Comment on above: Daily for 3 Days starting 10/20/2024 unt il 10/22/2024 Glucose measurement estimated from glycated hemoglobin [facility] End: 10-20-2024 Incentive spirometry Instruct Incentive spirometry Instruct Respiratory Care Routine Once for 1 Occurrences starting 10/20/2024 until 10/20/2024 [facility] Work Phone: Comment on above: Once for 1 Occurrences starting 10/20/19 until 10/20/2024 Initiate Oxygen Ther apy Protocol Initiate Oxygen Therapy Protocol Respiratory Care Routine Daily until discontinued starting 06/12/2019 [facility] [place] Comment on above: Daily until discontinued starting 2018 End: 10-20-2024 Magnesium [Mass/volume] in Serum or Plasma Magnesium Lab STAT STAT (Lab) for 1 Occurrences starting 10/20/2024 until 10/20/2024 [facility] Work Phone: Comment on above: STAT (Lab) for 1 Occurrences starting until 10/20/2024 End: 10-23-2024 Magnesium [Mass/volume] in Serum or Plasma Magnesium Lab Routine Morning draw (Lab) for 3 Occurrences starting 10/21/2024 until 10/23/2024, 1 completed [facility] Work Phone: Comment on above: Morning draw [...] Care Routine Continuous until discontinued starting 10/20/2024 [facility] Work Phone: Comment on above: Continuous until discontinued starting 0 10/20/2024 [facility] 4X Daily (AC & HS) until discontinued st arting 06/12/2019 As Needed until disc ontinued starting 06/12/2019 End: 10-20-2024 Prothrombin time (PT) Protime-INR Lab STAT STAT (Lab) for 1 Occurrences starting 10/20/2024 until 10/20/2024 [facility] Work Phone: Comment on above: STAT (Lab) for 1 Occurrences starting until 10/20/2024 End: 10-23-2024 Prothrombin time (PT) Protime-INR Lab Routine Morning draw (Lab) for 3 Occurrences starting 10/21/2024 until 10/23/2024, 1 completed [facility] Work Phone: Comment on above: Morning draw (Lab) for 3 Occurrences sta rting 10/21/2024 until 10/23/2024, 1 completed Pulse oximetry, continuous Pulse oximetry, continuous Respiratory Care Routine Every 4hr until discontinued starting 06/12/2019 [facility] [email or web address] Comment on above: Every 4hr until discontinued starting XR CHEST STANDARD (2 VW) XR CHES T STANDARD (2 VW) Imaging Routine 06/13/2019 10:36 AM EDT [facility] Immunization Date Immunization Notes Care Provider Fa amada 06-30-2024 influenza virus vacc ine, unspecified formulation Petr PA[employer] [facility] 08-13-2023 influenza virus vacc ine, unspecified formulation Rosemary Cartagena MD Work Phone: [facility] Work Phone: 11-27-2023 influenza virus vacc ine, unspecified formulation Petr [employer] [facility] 08-29-2022 influenza virus vacc ine, unspecified formulation [employer] [facility] 06-08-2022 influenza virus vacc ine, unspecified formulation Petr [employer] [facility] 09-01-2021 SARS-CoV-2 (COVID-19 ) mRNA BNT-162b2 vax [employer] [facility] 07-21-2021 diphtheria, tetanus toxoids and acellular pertussis vaccine Osvaldo Maciel Other [facility] 07-21-2021 diphtheria, tetanus toxoids and acellular pertussis vaccine, unspecified formulation DO Shanique Anderson Work Phone: [facility] 06-13-2021 Flu Vaccine - Adult DO Nikkia n [employer] Work Phone: [facility] 06-13-2021 influenza, seasonal, injectable DO Shanique Anderson Work Phone: [facility] 03-04-2021 SARS-CoV-2 (COVID-19 ) mRNA BNT-162b2 [employer] [facility] 02-11-2021 SARS-CoV-2 (COVID-19 ) mRNA BNT-162b2 [employer] [facility] 11-03-2020 COVID-19 mRNA, Comir jenna (Pfizer) DO Shanique [employer] Work Phone: [facility] Comment on above: Result Comment: 2024: [id number] 10-13-2020 COVID-19 mRNA, Comir jenna (Pfizer) DO Shanique [employer] Work Phone: [facility] Comment on above: Result Comment: 2024: [id number] 08-31-2020 influenza virus vacc ine, unspecified formulation Petr [employer] [facility] 05-27-2020 influenza virus vacc ine, unspecified formulation Petr [employer] [facility] 06-24-2019 influenza virus vacc ine, unspecified formulation [employer]r [employer] [facility] 01-12-2019 zoster vaccine recombinant PneumRx [facility] 06-29-2018 pneumococcal polysaccharide vaccine, 23 valent PneumRx [facility] 06-24-2018 zoster vaccine recombinant Petr QWi[employer] [facility] 05-18-2018 influenza virus vacc ine, unspecified formulation [employer] [facility] 06-02-2017 influenza virus vacc ine, unspecified formulation [employer] [facility] 09-07-2016 influenza virus vacc ine, unspecified formulation Petr [employer] [facility] 06-10-2016 influenza virus vacc ine, unspecified formulation Petr [employer] [facility] 06-10-2016 pneumococcal polysaccharide vaccine, 23 valent Petr [employer] [facility] 05-29-2016 pneumococcal polysaccharide vaccine, 23 valent Petr [employer] [facility] 08-01-2015 influenza virus vacc ine, unspecified formulation Petr [employer] [facility] 05-29-2015 influenza virus vacc ine, unspecified formulation Petr [employer] [facility] 05-29-2015 pneumococcal conjuga te vaccine, 13 valent Petr [employer] [facility] 04-11-2015 pneumococcal conjuga te vaccine, 13 valent Petr [employer] [facility] 06-10-2014 influenza virus vacc ine, unspecified formulation [employer] [facility] 06-13-2013 DTaP, unspecified formulation [employer] [facility] 05-24-2013 influenza virus vacc ine, unspecified formulation [employer] [facility] 07-14-2011 influenza virus vacc ine, unspecified formulation [place], [place] 06-16-2010 pneumococcal polysaccharide vaccine, 23 valent Petr [employer] [facility] Payers Date Payer Category Payer Unknown [id number] 2023 ([facility]) [id number] 2022 [employer] ( and others) [id number] 2022 For Life (TFL) F OR LIFE [id number] 2018 Medicare MEDICARE MEDICAR E PART A AND B xxxxxxxxxxx 2018-Present [phone] [place] [address] xxxxxxxxxxx [id number] 2016 [employer] ( and others) FOR LIFE MEDICARE SUPP xxxxxxxxx 2016-Present C/O [employer]/ [address] [place] [address] xxxxxxxxx [id number] 2014 Medicare [id number] 2007 Medicare [id number] 1959 [employer] ( and others) [id number] 1959 Medicare [id number] 1959 Self-pay [id number] 1942 Unknown [id number] 2.16.840.1.194920.3.579.2 .175 1942 Unknown [id number] 2.16.840.1.224258.3.579.2 .593 1942 Unknown [id number] 2.16.840.1.054257.3.579.2 .593 1942 Unknown [id number] 2.16.840.1.411765.3.579.2 .593 1942 Unknown [id number] 2.16.840.1.178388.3.579.2 .593 1942 Unknown [id number] 2.16.840.1.980397.3.579.2 .593 1942 Unknown [id number] 2.16.840.1.687906.3.579.2 .593 1942 Unknown [id number] 2.840.1.700380.3.579.2 .1246 1942 Unknown [id number] 2.840.1.649542.3.579.2 .1245 1942 Unknown [id number] 2.840.1.658554.3.579.2 .1245 1942 Unknown [id number] 2.16.840.1.764120.3.579.2 .1245 1942 Unknown [id number] 2.840.1.721923.3.579.2 .1245 1942 Unknown [id number] 2.16.840.1.296973.3.579.2 .1245 1942 Unknown [id number] 2.16.840.1.325548.3.579.2 .727 1942 Unknown [id number] 2.16.840.1.701699.3.579.2 .727 1942 Unknown [id number] 2.16.840.1.950122.3.579.2 .727 1942 Unknown [id number] 2.16.840.1.652074.3.579.2 .727 1942 Unknown [id number] 2.16.840.1.673977.3.579.2 .727 1942 Unknown [id number] 2.16.840.1.257559.3.579.2 .727 1942 Unknown [id number] 2.16.840.1.495578.3.579.2 .72 1942 Unknown [id number] 2.16.840.1.933604.3.579.2 .727 1942 Unknown [id number] 2.16.840.1.157449.3.579.2 .1259 1942 Unknown [id number] 2.16.840.1.719316.3.579.2 .1259 1942 Unknown [id number] 2.16840.1.867470.3.579.2 .125 1942 Unknown [id number] 2.16.840.1.774638.3.579.2 .1259 1942 Unknown [id number] 2.16840.1.975896.3.579.2 .1259 1942 Unknown [id number] 2.16.840.1.356723.3.579.2 .1259 1942 Unknown [id number] 2.16840.1.692011.3.579.2 .1244 1942 Unknown [id number] 2.16.840.1.312409.3.579.2 .1244 1942 Unknown [id number] 2.16.840.1.088909.3.579.2 .1244 1942 Unknown [id number] 2.16.840.1.523237.3.579.2 .1244 1942 Unknown [id number] 2.16.840.1.547362.3.579.2 .1244 Unknown [id number] 2.16.840.1.394797.3.579.2 .531 Unknown [id number] 2.16.840.1.120893.3.579.2 .531 Unknown [id number] 2.16.840.1.410404.3.579.2 .531 Unknown [id number] 2.16.840.1.959457.3.579.2 .531 Unknown [id number] 2.16.840.1.676304.3.579.2 .531 Unknown [id number] 2.16.840.1.590099.3.579.2 .531 Unknown [id number] 2.16.840.1.282871.3.579.2 .531 Social History Date Type Detail Facility Start: 06-12-2019 End: 09-05-2021 Tobacco smoking status NHIS Former smoker [facility] Start: 09-13-1958 End: 09-13-2011 History of tobacco use Current smoker [place] Start: 09-13-1958 End: 09-13-2011 History of tobacco use Cigarette Smoker [place] Start: 06-12-2019 End: 01-31-2025 Cigarettes smoked current (pack per day) - Reported [place] Start: 06-12-2019 End: 01-31-2025 Alcohol intake No [facility] Start: 05-06-2015 Tobacco Comment quit x 5 year [place], [place] Start: 1942 Sex Assigned At Not on file [place], [place] Start: 1940 Sex Assigned At Male [facility] Start: 08-30-2023 End: 01-24-2024 Tobacco use and exposure Smokeless tobacco non-user [facility] Work Phone: Start: 08-30-2023 End: 10-20-2024 Alcohol intake Current drinker of alcohol (finding) [facility] [facility] Work Phone: Start: 08-30-2023 Alcohol Comment 1 YEARLY [facility] Work Phone: Start: 08-20-2023 End: 10-27-2024 Exposure to SARS-CoV-2 (event) Not sure [facility] Tobacco smoking status No Smokin g Status Entered [facility] Start: 01-24-2024 Tobacco smoking status NHIS Never smoked tobacco [facility] Start: 02-23-2024 End: 01-31-2025 Alcoholic beverage intake Lifetime non-drinker (finding) [facility] Start: 09-17-2024 End: 09-27-2024 Exposure to SARS-CoV-2 (event) Unable to assess [facility] Start: 10-20-2024 Gender identity Identifies as male gender (finding) [facility] Work Phone: Start: 10-20-2024 Sexual orientation Heterosexual (finding) [facility] Work Phone: How often to you hav e a drink containing alcohol? Never [facility] Work Phone: How many standard drinks containing alcohol do you have on a typical day? Patient does not drink [facility] Work Phone: In the past 12 month s, was there a time when you were not able to pay the mortgage or rent on time? No [facility] Work Phone: Start: 10-27-2024 Alcoholic beverage intake Ex-drinker (finding) [facility] Work Phone: Start: 12-21-2024 Sex Male (finding) [facility] Medical Equipment Procedure Code Equipment Code Equipment Origin al Text Equipment Identifier Dates Cement Barium Radiopq Full 40gr [id number] Start: 12-02-2017 Cement Barium Radiopq Full 40gr [id number] Start: 12-02-2017 Impl Knee X3 Patella [id number] Star t: 12-02-2017 Impl Capped Knee Advanced _imp Start: 12-02-2017 Impl Knee Fem Co mp Cmntd Sz 6 _imp Start: 12-02-2017 Impl Knee Patell a Asym X3 [id number] Start: 12-02-2017 Impl Knee Tib Baseplt Prime Sz 6 _imp Start: 12-02-2017 Impl Knee Tib In srt Postr X3 Sz6 11mm [id number] Start: 12-02-2017 Stimulator Neuro Pulse [id number] Start: 04-27-2017 Pacemaker 10196_exp Pacemaker 10196_imp Lt Knee 10197_exp Lt Knee 10197_imp Device, Closure, 35mm Watchman Flx Pro Laac - [id number] Start: 10-20-2024 Goals Date Patient Goal Desired Activity /State Functional Status Date Assessment Result Facility 07-25-2024 Functional Status N/A [facility] 06-15-2024 Functional Status N/A [facility] 04-25-2024 Functional Status N/A [facility] Clinical Notes 06-16-2021 to 01-31-2025 RAÚL Yarbrough [...] triceps, wrist extensors, wrist extensors, wrist flexor, gift wrapper strength 5/5. LUE Strength deltoid, biceps, triceps, wrist extensors, wrist extensors, wrist flexor, gift wrapper strength 5/5. RLE Strength illopsoas, quadriceps, tibialis anterior, and gastrocnemius strength 5/5. LLE Strength illopsoas, quadriceps, tibialis anterior, and gastrocnemius strength 5/5. Tone Normal tone x4 extremities. Reflexes: RUE biceps reflex 2, LUE biceps reflex 2, RLE knee reflex 1, LLE knee reflex 1, Assessment and Plan Cerebrovascular accident (CVA), unspecified mechanism ([facility]) Patient with history of stroke which likely [...] Patient with history of stroke and [place] exposure contributing to PTSD. He also has [...] diabetic and was also exposed to [place] per his 's report. He experienced worsening bradykinesia with Sinemet lowering. He presented to [facility] 09/02/21 for increase in lower [...] in 2-3 months documented in this encounter [facility] 11-28-2024 Note Patient Education Urology Phimosis, Pediatric [...] provider. Document Revised: 08/13/2022 Document Reviewed: 08/13/2022 [employer] Patient Education ? 2023 [employer]. [facility] 11-09-2024 Telephone encounter Note The pt calls [...] if bradykinesias worsen. Oarrs reviewed due now [facility] 11-09-2024 Miscellaneous Notes The pt calls stating [...] reviewed due now documented in this encounter [facility] 10-27-2024 History of Present illness Narrative Patient [...] features (Multi) 10/25/2023 Sacroiliitis, not elsewhere classified ([facility]) 10/25/2023 Idiopathic chronic pancreatitis (Multi) 10/25/2023 [...] bypass graft 08/30/2023 Coronary artery disease involving [place] coronary artery of [place] heart without angina pectoris 08/30/2023 Obstructive sleep apnea syndrome 08/30/2023 Permanent atrial fibrillation (Multi) 08/30/2023 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 08/30/2023 Shortness of breath 08/30/2023 Parkinson disease (Multi) 08/30/2023 History of stroke 08/30/2023 BPH (benign prostatic hyperplasia) 08/30/2023 Ischemic cardiomyopathy 08/30/2023 Diabetes mellitus (Multi) 08/30/2023 Atrial fibrillation (Multi) 09/29/2024 Assessment: 1. Coronary artery disease involving [place] coronary artery of [place] heart without angina pectoris 2. Hx of coronary artery bypass graft 3. Ischemic cardiomyopathy 4. 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 5. Presence of Watchman left atrial appendage closure device 6. senior care 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 7. Other specified diabetes mellitus with other specified complication, unspecified whether medical terminologist insulin use (Multi) 8. Parkinson's disease, unspecified [...] discussion and plan. documented in this encounter [facility] Work Phone: 10-27-2024 Instructions Shanna Stout RN [...] instructions on exercise. documented in this encounter [facility] Work Phone: 10-21-2024 Plan of care note The patient's goals for the shift include rest The clinical goals for the shift include conetinue to be HDS and DC today Pt is discharged to home with family. Pt stable throughout the shift. No complaints of pain this shift. No concerns at this time [facility] 10-21-2024 Miscellaneous Notes The patient's goals for [...] period is complete documented in this encounter [facility] Work Phone: 10-21-2024 History of Present illness Narrative 10/21/24 1159 Discharge Planning Living Arrangements Spouse/significant other Support Systems Spouse/significant other Assistance Needed has ROOM SERVICE RUNNER Type of Residence Home care staff Do [...] were you homeless or living in a jail (including now)? N Transportation Needs In the [...] and will be picked up by pt's ROOM SERVICE RUNNER. Pt receiving daily aide services thru the [employer] agency. Spouse states he has PCP at [facility] (Dr Anderson) and [facility] (Dr. Shirley). Vet now using powerchair at home and receives DM supplies and ensure [facility]. Vet has MCR A and B and insurance. No needs identified at this time. Vet to follow up as recommended. Winnie Harris RN (Weekend Transitional Bow Maker Machine Tender-TCC, send Epic message) Pharmacy Medication History Review Yoana Ibrahim is a 83 y.o. male admitted for Atrial fibrillation (Multi). Pharmacy reviewed the patient's dpzqk-ir-quzzlupbk medications and allergies for accuracy. The list below reflects the updated CLINICAL INFORMATICS PHYSICIAN list. Prior to Admission Medications Prescriptions Last [...] at discharge. Pharmacy has been updated to [facility] in [place]. Sources used to complete the med history include: [facility] Pharmacy dispense history Spouse, Good historian Chart Review Care Everywhere [facility] fill [facility] Cardio visit 09/01/24 Below are additional concerns with the patient's CLINICAL INFORMATICS PHYSICIAN list. Patient is taking Entresto 24-26 (twice daily) and stopped taking Entresto 49-51. Please read comments above in RED Patient currently has the Rivastegmine patch on Patient takes sinemet differently: twice daily instead of tid. Medications ADDED: Myrebtriq Fexofenadine Medications CHANGED: Lantus to 15 units Creon directions Medications REMOVED: Refresh tears Perphenazine Entresto 49-51 Ya Pop PharmD Transitions of Care Pharmacist [facility] Please reach out via Secure Chat for questions, or if no response call [employer] or [employer] documented in this encounter [facility] Work Phone: 10-21-2024 Plan of care note The patient's goals for the shift include The clinical goals for the shift include Pt will sleep a minimum of 4 hours by the end of this shift Problem: Skin Goal: Participates in plan/prevention/treatment measures Outcome: Progressing Goal: Prevent/manage excess moisture Outcome: Progressing Goal: Prevent/minimize sheer/friction injuries Outcome: Progressing [facility] Work Phone: 10-20-2024 Note Formatting of this [...] once recovery and monitoring period is complete [facility] Work Phone: 10-19-2024 Hospital Discharge instructions Monse Landers APRN-OPHTHALMIC AIDE - 10/19/2024 2:28 PM EST Watchman Discharge [...] have any concerns, you may contact the Renewable [employer] Division Manager or if any of these symptoms become excessive, contact your glass etcher helper or go to the emergency room. No [...] you have any questions or concerns - [phone] [place] nurse coordinator Betty Dolan's phone is [phone]. documented in this encounter [facility] Work Phone: 09-27-2024 History of Present illness [...] placed or performed in visit on 05/10/24 NON-[facility] Basic Metabolic Panel Collection Time: 05/10/24 2:38 PM Result Value Ref Range [facility] Glucose 286 (H) 70 - 100 mg/dL [facility] Blood Urea Nitrogen 38 (H) 7 - 25 mg/dL [facility] Creatinine 1.75 (H) 0.70 - 1.30 mg/dL [facility] ESTIMATED GFR 38.632 [facility] Sodium 143 136 - 145 mmol/L [facility] Potassium 4.7 3.5 - 5.1 mmol/L [facility] Chloride 107 98 - 107 mmol/L NON- [facility] Carbon Dioxide 29.1 21.0 - 31.0 mmol/L NON- [facility] Anion Gap 11.6 6.0 - 15.0 [facility] Calcium 8.6 8.6 - 10.3 mg/dL [facility] B-Type Natriuretic Peptide Collection Time: 05/10/24 2:38 PM Result Value Ref Range [facility] B-Type Natriuretic Peptide 252.0 (H) 5 - [...] vascular complications, sedation related complications, risk of [place], CVA, device embolization, pericardial tamponade and . [...] care of this patient. Fabiano Pickering MD Medical Services Coordinator, Interventional Cardiology Fellowship Program [facility] Office documented in this encounter [facility] Work Phone: 09-01-2024 History of Present [...] features (Multi) 10/25/2023 Sacroiliitis, not elsewhere classified ([facility]) 10/25/2023 Idiopathic chronic pancreatitis (Multi) 10/25/2023 [...] bypass graft 08/30/2023 Coronary artery disease involving [place] coronary artery of [place] heart without angina pectoris 08/30/2023 Obstructive sleep apnea syndrome 08/30/2023 Permanent atrial fibrillation (Multi) 08/30/2023 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 08/30/2023 Shortness of breath 08/30/2023 Parkinson disease (Multi) 08/30/2023 History of stroke 08/30/2023 BPH (benign prostatic hyperplasia) 08/30/2023 Ischemic cardiomyopathy 08/30/2023 Diabetes mellitus (Multi) 08/30/2023 Assessment: 1. Congestive heart failure, NYHA class 3, chronic, systolic 2. Nonrheumatic mitral valve regurgitation 3. ICD (implantable cardioverter-defibrillator) in place 4. Coronary artery disease involving [place] coronary artery of [place] heart without angina pectoris 5. Obstructive sleep [...] discussion and plan. documented in this encounter [facility] Work Phone: 09-01-2024 Instructions Heaven Shah [...] up per routine documented in this encounter [facility] Work Phone: 07-27-2024 History of Present illness Narrative Images from the original note were not included. This is a follow-up from April 2024. At that time we uptitrated Entresto to 24/20 6 in the morning and 49/50 1 in the evening. Blood work was ordered. Patient is accompanied by and grandson. Grandson is an ER nurse in [place]. Both and grandson report significant deterioration in [...] features (Multi) 10/25/2023 Sacroiliitis, not elsewhere classified ([facility]) 10/25/2023 Idiopathic chronic pancreatitis (Multi) 10/25/2023 [...] bypass graft 08/30/2023 Coronary artery disease involving [place] coronary artery of [place] heart without angina pectoris 08/30/2023 Obstructive sleep apnea syndrome 08/30/2023 Permanent atrial fibrillation ([facility]) 08/30/2023 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 08/30/2023 Shortness of breath 08/30/2023 Parkinson disease ([facility]) 08/30/2023 History of stroke 08/30/2023 BPH (benign prostatic hyperplasia) 08/30/2023 Ischemic cardiomyopathy 08/30/2023 Diabetes mellitus ([facility]) 08/30/2023 Assessment: 1. Congestive heart failure, NYHA class 3, chronic, systolic Follow Up In Cardiology sacubitriL-valsartan (Entresto) 24-26 mg tablet Follow Up In Cardiology 2. 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 Basic Metabolic Panel Basic Metabolic Panel 3. Hx of coronary artery bypass graft 4. ICD (implantable cardioverter-defibrillator) in place Referral to Cardiac Electrophysiology 5. Ischemic cardiomyopathy sacubitriL-valsartan (Entresto) 24-26 mg tablet 6. 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 Referral to Cardiac Electrophysiology 7. Former smoker 8. Body mass index (BMI) 28.0-28.9, adult 9. Permanent atrial fibrillation (Multi) ECG 12 Lead 10. Parkinson's disease, unspecified whether dyskinesia present, unspecified whether manifestations fluctuate Referral to Cardiac Electrophysiology 11. Falls frequently Referral to Cardiac Electrophysiology Clinical decision making: Patient with high [id number] score and high Hasbled score. Permanent atrial [...] is referred to [facility] for a left atrial appendage implant due thromboembolic stroke risk from atrial fibrillation with CHADS2 score >= 2 or a [id number] score >= 3. This patient is not a good candidate for fdc anticoagulation for the following reason(s): This patient [...] discussion and plan. documented in this encounter [facility] Work Phone: 07-27-2024 Instructions Heaven Shah [...] instructions on exercise. documented in this encounter [facility] Work Phone: 07-25-2024 Hospital Discharge instructions [...] nerve stimulation). ?For women, using a medical physics researcher to prevent urine leaks. This is a [...] right after experiencing incontinence. General instructions Take kzdn-zii-pvsxkmm and prescription medicines only as told by [...] important. Where to find more information National [place] of Diabetes and Digestive and Kidney Diseases: www.niddk.nih.gov [place] [employer]: www.urologyhealth.org Contact a health care [...] provider. Document Revised: 04/04/2021 Document Reviewed: 04/04/2021 [employer] Patient Education 2023 [employer]. 07/25/2024 14:17:38 Benign Prostatic Hyperplasia Benign Prostatic [...] urethra. Follow these instructions at home: Take qgbs-smw-rzlgajh and prescription medicines only as told by [...] provider. Document Revised: 03/18/2022 Document Reviewed: 03/18/2022 [employer] Patient Education 2023 [employer]. 07/25/2024 14:17:37 Paraphimosis Paraphimosis Paraphimosis is a [...] pressure to the area. General instructions Take sjbs-hkj-jiyepdz and prescription medicines only as told by [...] and water are not available, use hand manifold operator. ?Ask when you should remove your dressing. [...] needs to be treated right away. Take gtwq-drw-mrczlvo and prescription medicines only as told by [...] provider. Document Revised: 08/13/2022 Document Reviewed: 08/13/2022 [employer] Patient Education 2023 [employer]. Follow Up Care 06/15/2024 10:57:21 With:CINTHYA SANCHEZ, Petr Richard, URL Address: [facility] [address] [place], [place] [address]- When: Unknown Comments:2 mos w/ PSA [facility] 07-25-2024 Note Patient Education Urology Urinary Incontinence [...] stimulation). ? For women, using a medical physics researcher to prevent urine leaks. This is a [...] health care provider (more content not included)... [facility] 06-15-2024 Note Progress Note-Milton barbosa Patient: YOANA [...] afterwards, # 2 tab(s), Refills(s) 0, Pharmacy: [facility]/pharmacy #[id number], 167, cm, 04/25/24 13:59:00 EDT, Height/Length Dosing, 72, kg, 04/25/24 13:59:00 EDT, Weight Dosing Myrbetriq 50 mg oral tablet, extended release: 50 mg = 1 tab(s), Oral, Daily, # 30 tab(s), Refills(s) 11, [id number] 167, cm, 06/15/24 10:14:00 EDT, Height/Length [...] and Minerals: Daily, Refill(s) 0 Potassium Chloride (Gxo-Qtfh-Tbw 10) 10 mEq oral tablet, extended release: [...] = 0.5 tab(s), Oral, Daily Potassium Chloride (Prd-Bwnm-Ler 10) 10 mEq oral tablet, extended release 10 mEq = 1 tab(s), Oral, Daily psyllium oral powder 6 gm, Oral, BID rivastigmine 13.3 mg/24 hr transdermal film, extended release 1 patch(es), Topical, Daily tamsulosin 0.4 mg Cap 0.4 mg = 1 cap(s), Oral, Bedtime Problem list: All Problems History of prostate cancer / SNOMED CT 6796008323 / Confirmed Anxiety / SNOMED CT 21965593 / Confirmed Pancreatic insufficiency / SN (more content not included)... [facility] Comment on above: Result Comment: Elec tronically Signed By: Petr PAINTING MD\.br\Date and Time Signed: 06/15/24 17:17 EDT 06-15-2024 Evaluation + Plan note Extrac sterling from: Title:HOPD visit Author:Petr PAINTING MD Date: 06/15/24 Impression and Plan Assessment and Plan: Diagnosis: BPH with obstruction/lower urinary tract symptoms (CAB29-QI N40.1, Billing Diagnosis, Medical), Chronic radiation cystitis (ICD10- CM N30.40, Billing Diagnosis, Medical), Other obstructive and reflux uropathy (WLG25-IC N13.8, Discharge, Medical), Overactive bladder (YKU70-WZ N32.81, Billing Diagnosis, Medical), Personal history of prostate cancer (PRO55-WV Z85.46, Billing Diagnosis, Medical). Additional Plan of [...] PM Scheduled Provider:BARB Salinas APRN, [place] X Location:[facility] Appointment Type:URO Office Visit [facility] 10-03-2024 Hospital Discharge instructions Patient Education 06/15/2024 [...] a great day! [facility] 10-03-2024 NotePatient Education Cystoscopy ? Voiding after [...] if you have a fever over 100 degrees.[facility] 05-01-2024 NoteUrology Office/Clinic Note Chief Complaint [facility], and hx prostate cancer. HPI Staff 83 year old male new patient referred for incontinence, hx of prostate cancer. Dr. Anderson is PCP per 09/14/23 [place] note. Was seeing urologist in [place] but hasn't sen them for 2 years. [...] with voice recognition artificial intelligence software, specifically [employer]GoT[employer], Shuame and or TokBox. Substitutions may have occurred due to the [...] [address] Galvez in [place]. No recent PSA or cancer monitoring. Patient [...] 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 inspector (current) use of antithrombotics/antiplatelets) On Plavix Follow-up With When Contact Information CINTHYA SANCHEZ, Petr Richard, URL [address] [place] [id number]- Additional Instructions: schedule cysto Patient Education Prostate Cancer Benign Prostatic Hyperplasia Problem List/Past Medical History Ongoing Acute kidney injury Anemia Anxiety Arthritis Atrial fibrillation Benign prostatic hyperplasia with outflow obstruction Cerebrovascular accident Chronic kidney disease Chronic obstructive pulmonary disease Chronic systolic heart failure Congestive heart failure Deafness Dementia Diabetes Ess[place] (more content not included)...[facility] Result Comment: Electronically Signed By: ABRB Salinas APRN, Anabel Anthony\.fabian\Date and Time Signed: 05/01/24 08:58 [id number] NotePatient Education Oncology Prostate Cancer The prostate [...] under a microscope. This is called the [place] score and the total score can range from 6?10, indicating how likely it is that the cancer will spread (metastasize) to other parts of the body. The higher the score, the greater thelikelihood that the cancer will spread. ? Earl 6 or lower: This indicates that the cancer cells look similar to normal prostate cells (well differentiated). ? [place] 7: This indicates that the cancer cells [...] implanted intothe prostate gla (more content not included)...[facility]08-13-2024 Evaluation + Plan note Diagnostic Tests Pending * PSA Total 04/25/24 [facility] [place] 08-12-2024 History of Present [...] features (Multi) 10/25/2023 Sacroiliitis, not elsewhere classified ([facility]) 10/25/2023 Idiopathic chronic pancreatitis (Multi) 10/25/2023 [...] bypass graft 08/30/2023 Coronary artery disease involving [place] coronary artery of [place] heart without angina pectoris 08/30/2023 Obstructive sleep apnea syndrome 08/30/2023 Permanent atrial fibrillation (Multi) 08/30/2023 senior care 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 08/30/2023 Shortness [...] In Cardiology 5. Coronary artery disease involving [place] coronary artery of [place] heart without angina pectorisrosuvastatin (Crestor) 5 mg tablet 6. Hx of coronary artery bypass graft 7. 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 Follow Up In Cardiology 8. senior care 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 9. Other specified diabetes mellitus with other specified complication, unspecified whether medical terminologist insulin use (Multi) 10. Obstructive sleep apnea [...] exam, discussion and plan. documented in this [facility] Work Phone: 1(535) 940-373808-12-2024 Instructions* Patient Instructions* Carrie Garcia LPN - [...] through Care Everywhere. * Heart Healthy Diet ([place]) documented in this [facility] Work Phone: 1(645) 412-542904-10-2024 History of Present illness Narrative* Saira Heart APRN-OPHTHALMIC AIDE - 12/22/2023 2:00 PM EDT Chief Complaint [...] or Jardiance because of history of pancreatitis. [employer]ur[employer] Evera XT DR ICD May 2019, with [...] contact the office if new symptoms arise. INSTITUTIONAL COMMODITY ANALYST in one month Saira Heart MSN, RECREATIONAL COUNSELOR-OPHTHALMIC AIDE, PMHNP-[facility] Please excuse any errors in grammar or translation related to this dictation. Voice recognition software was utilized to prepare this document. [facility] 1(335) 345-425304-10-2024 Instructions* Patient Instructions* CHARLI Hollingsworth - 12/22/2023 [...] contact the office if new symptoms arise. INSTITUTIONAL COMMODITY ANALYST in one month [facility]: 1(155) 728-489403-25-2024 History of Present illness Narrative* CHARLI Hollingsworth [...] the office today his standing blood pressure [id number]. He did not take his Lasix this [...] the back exam room to the front engineering secretary there was no dyspnea noted with [...] failure, systolic, possibly systolic and diastolic, functional [id number] with improvement in TONG with initiation of Entresto. Varying estimates of left ventricular ejection fraction most recent 35% echo August 2021 43% stress perfusion study August 2021 Cannot be on Farxiga or Jardiance because of history of pancreatitis. [employer] Evera XT DR ICD May 2019, with [...] contact the office if new symptoms arise. INSTITUTIONAL COMMODITY ANALYST in 2 weeks Saira Heart MSN, RECREATIONAL COUNSELOR-OPHTHALMIC AIDE, PMHNP-BC [facility] Please excuse any errors in grammar or translation related to this dictation. Voice recognition software was utilized to prepare this document. [facility] Work Phone: 1(989) 399-842103-25-2024 Instructions* Patient Instructions* CHARLI Hollingsworth - 12/06/2023 [...] contact the office if new symptoms arise. 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 Wt Readings from Last 3 Encounters: [...] apnea 08/30/2023 Permanent atrial fibrillation (CMS/HCC) 08/30/2023 senior care 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 08/30/2023 Shortness [...] follow-up, to uptitrate medications. Patient to see Saira Heart NP in 4 weeks. Saira Heart [...] of Rosemary Cartagena MD. [facility] Work Phone: 1(855) 333-573302-12-2024 Instructions* Patient Instructions* Monisha Roberts LPN - [...] follow up per routine [facility] Work Phone: 1(563) 657-275301-04-2024 Evaluation note* Encounter Date Diagnosis Assessment Notes Treatment Notes Treatment Clinical Notes Sep, Diarrhea (ICD-10 - R19.7) [facility] Other 2023 History of Present illness Narrative* Rosemary Cartagena MD - 08/30/2023 10:30 AM EST Referring provider: Justin MARIN. History Of Present Illness: Yoana Ibrahim is a 82 y.o. male presenting with long history of cardiac problems, and is here to establish cardiology visit. Previously was going to [place], patient and want to switch care over to [facility]. 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 Shortness of breath 9. History of stroke 10. Benign prostatic hyperplasia with lower urinary tract symptoms, symptom details unspecified 11. Ischemic cardiomyopathy 12. Fatigue, unspecified type 13. Other specified diabetes mellitus with other specified complication, unspecified whether fdc insulin use (CMS/HCC) Patient has chronic left [...] at this time. 4. Enroll in device clinic-[employer] XT DR 2019 5. Follow-up in 8 weeks at which time further recommendations can be made. Total of 60 minutes reviewing information coordinating care and ordering additional testing. Thank you for allowing me to participate in Mr. Ibrahim's care, please do not hesitate to call if further questions arise, Sincerely, Rosemary Cartagena MD [facility] Provider Attestation - Scribe documentation All [...] of Rosemary Cartagena MD. 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) Patient will continue Creon as directed without change Mar, Diarrhea (ICD-10 - R19.7) Patient reports that he still has fecal accidents about 1 every 2 weeks Patient will continue Imodium as direct without change [facility] Other 12-15-2022 Evaluation note* Encounter Date Diagnosis Assessment Notes Treatment Notes Treatment Clinical Notes Aug, Diarrhea (ICD-10 - R19.7) [facility] Other 12-13-2022 Evaluation note* Encounter Date Diagnosis Assessment Notes Treatment Notes Treatment Clinical Notes Aug, Diarrhea (ICD-10 - R19.7) [facility] Other 06-29-2022 Evaluation note* Encounter Date Diagnosis Assessment Notes Treatment Notes Treatment Clinical Notes Feb, 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 PATIENT ADVISED WE WILL INCREASE MEDICATION AT THIS TIME. 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 All the questions were answered. [facility] Other 10-05-2021 Evaluation note* Encounter Date Diagnosis Assessment Notes Treatment Notes Treatment Clinical Notes Jun, Lumbar degenerative disc disease (ICD-10 - M51.36) [facility] Other 10-04-2021 Evaluation note* Encounter Date Diagnosis [...] - M47.817) Stable, proceed with treatment plan. [facility] Other 10-04-2021 Evaluation note* Encounter Date Diagnosis Assessment Notes Treatment Notes Treatment Clinical Notes Jun, Lower extremity pain (ICD-10 - M79.606) [facility] Other Evaluation + Plan note Future Appointments Appointment Date:04/25/2024 01:30:00 PM Scheduled Provider:BARB Salinas APRN, Anabel Anthony Location:[facility] Appointment Type:URO [facility] + Plan note Future Appointments Appointment Date:10/03/2024 03:30:00 PM Scheduled Provider:Petr PAINTING MD Location:[facility] Appointment Type:URO Office Visit Diagnostic Tests Pending * PSA Total 07/25/24 [facility] [place] evaluation + Plan note Future Appointments Appointment Date:11/22/2024 03:00:00 PM Scheduled Provider:Petr PAINTING MD Location:[facility] Appointment Type:URO Office Visit [facility] Jaiden evaluuxpvm noteNo [facility] [employer] Other evaluation noteNo assessment information available [facility] Work Phone: evaluation note* Diagnosis Permanent atrial fibrillation (CMS/HCC)- Primary Atrial fibrillation ICD (implantable cardioverter-defibrillator) in place Sleep apnea, unspecified type Abnormal EKG Nonspecific abnormal electrocardiogram (ECG) (EKG) Hx of coronary artery bypass graft Postsurgical aortocoronary bypass status Coronary artery disease, unspecified vessel or lesion type, unspecified whether angina present, unspecified whether [place] or transplanted heart senior care 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 Shortness of breath History of stroke Transient ischemic attack (TIA), and cerebral infarction without residual deficits Benign prostatic hyperplasia with lower urinary tract symptoms, symptom details unspecified Ischemic cardiomyopathy Other specified forms of chronic ischemic heart disease Fatigue, unspecified type Other specified diabetes mellitus with other specified complication, unspecified whether fdc insulin use (CMS/HCC) documented in this encounter [facility] Work Phone: Evaluation note* Diagnosis Abnormal EKG Nonspecific abnormal electrocardiogram (ECG) (EKG) Sleep apnea, unspecified type Permanent atrial fibrillation (CMS/HCC) Atrial fibrillation Shortness of breath documented in this encounter [facility] Work Phone: Evaluation note* Diagnosis Bipolar disorder, current episode manic severe with psychotic features (CMS/HCC)- Primary Permanent atrial fibrillation (CMS/HCC) Atrial fibrillation Ischemic cardiomyopathy Other specified forms of chronic ischemic heart disease ICD (implantable cardioverter-defibrillator) in place Hx of coronary artery bypass graft Postsurgical aortocoronary bypass status Coronary artery disease involving [place] coronary artery of [place] heart without angina pectoris History of stroke Transient ischemic attack (TIA), and cerebral infarction without residual deficits Other specified diabetes mellitus with other specified complication, unspecified whether fdc insulin use ([facility]/HCC) 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 Unspecified essential hypertension 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 Obstructive sleep apnea syndrome Obstructive sleep apnea (adult) (pediatric) Medication course changed Sacroiliitis, not elsewhere classified ([facility]/HCC) Sacroiliitis, not elsewhere classified Idiopathic chronic pancreatitis ([facility]) Dementia in other diseases classified elsewhere, unspecified severity, without behavioral disturbance, psychotic disturbance, mood disturbance, and anxiety ([facility]) Major depressive disorder, recurrent, moderate ([facility]) Major depressive disorder, recurrent episode, moderate Acute embolism and thrombosis of right peroneal vein ([facility]) Prostate CA ([facility]) Malignant neoplasm of prostate Chronic systolic heart failure ([facility]) Chronic systolic heart failure documented in this encounter [facility] Work Phone: Evaluation note* Diagnosis BMI 29.0-29.9,adult- Primary Ischemic cardiomyopathy Other specified forms of chronic ischemic heart disease 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 Unspecified essential hypertension documented in this encounter [facility] Work Phone: Evaluation note* Diagnosis BMI 31.0-31.9,adult- Primary Ischemic cardiomyopathy Other specified forms of chronic ischemic heart disease documented in this encounter [facility] Work Phone: Evaluation note* Diagnosis Onset Date Resolution Status Exocrine pancreatic insufficiency [facility] Work Phone: Evaluation note* Diagnosis Hyperreflexia- [...] not intractable Cerebrovascular accident (CVA), unspecified mechanism ([facility]) Vertigo Dizziness and giddiness [facility]* Diagnosis Congestive heart failure, NYHA class 3, chronic, systolic 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 Unspecified essential hypertension Hx of coronary artery bypass graft Postsurgical aortocoronary bypass status ICD (implantable cardioverter-defibrillator) in place Ischemic cardiomyopathy Other specified forms of chronic ischemic heart disease senior care 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 Former smoker Personal history of tobacco use, presenting hazards to health Body mass index (BMI) 28.0-28.9, adult Permanent atrial fibrillation (Multi) Atrial fibrillation Parkinson's disease, unspecified whether dyskinesia present, unspecified whether manifestations fluctuate Falls frequently Personal history of fall documented in this encounter [facility] Work Phone: Evaluation note* Diagnosis Permanent atrial fibrillation (Multi) Atrial fibrillation Ischemic cardiomyopathy Other specified forms of chronic ischemic heart disease Congestive heart failure, NYHA class 3, chronic, systolic (Multi) 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 artery disease involving [place] coronary artery of [place] heart without angina pectoris Hx of coronary artery bypass graft Postsurgical aortocoronary bypass status 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 Unspecified essential hypertension senior care 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 Other specified diabetes mellitus with other specified complication, unspecified whether fdc insulin use (Multi) Obstructive sleep apnea syndrome Obstructive sleep apnea (adult) (pediatric) History of stroke Transient ischemic attack (TIA), and cerebral infarction without residual deficits Stage 3b chronic kidney disease (Multi) BMI 29.0-29.9,adult Former smoker Personal history of tobacco use, presenting hazards to health Nonrheumatic mitral valve regurgitation Nonrheumatic aortic valve insufficiency documented in this encounter [facility] Work Phone: Evaluation note* Diagnosis Periodic limb movement disorder- Primary Gait difficulty Abnormality of gait Balance problem Abnormality of gait Radiculopathy, lumbosacral region Thoracic or lumbosacral neuritis or radiculitis, unspecified Memory loss [facility]* Diagnosis 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- Primary Congestive [...] ischemic heart disease Coronary artery disease involving [place] coronary artery of [place] heart without angina pectoris 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 Unspecified essential hypertension Former smoker Personal history of tobacco use, presenting hazards to health documented in this encounter [facility] Work Phone: Evaluation note* Diagnosis Persistent atrial fibrillation (Multi)- Primary Atrial fibrillation ICD (implantable cardioverter-defibrillator) in place 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 Parkinson's disease, unspecified whether dyskinesia present, unspecified whether manifestations fluctuate Falls frequently Personal history of fall documented in this encounter [facility] Work Phone: Evaluation note* Diagnosis Atrial fibrillation, unspecified type (Multi) documented in this encounter [facility] Work Phone: Evaluation note* Diagnosis Atrial fibrillation [...] appendage closure device documented in this encounter [facility] Work Phone: Evaluation note* Diagnosis Falls frequently- [...] mellitus with other specified complication, unspecified whether fdc insulin use (Multi) ICD (implantable cardioverter-defibrillator) in place Parkinson's disease, unspecified whether dyskinesia present, unspecified whether manifestations fluctuate Obstructive sleep apnea syndrome Obstructive sleep apnea (adult) (pediatric) Coronary artery disease involving [place] coronary artery of [place] heart without angina pectoris documented in this encounter [facility] Work Phone: Evaluation note* Diagnosis Vertigo Dizziness [...] apnea (adult) (pediatric) documented [facility]* Diagnosis Parkinson's disease without dyskinesia or fluctuating manifestations (CMS/HCC)- Primary Dysphagia, unspecified type Cerebrovascular accident (CVA), unspecified mechanism (CMS/HCC) HERBIE (obstructive sleep apnea) Obstructive sleep apnea (adult) (pediatric) Radiculopathy, lumbosacral region Thoracic or lumbosacral neuritis or radiculitis, unspecified Memory loss Periodic limb movement disorder [facility] Narrative - Reported* Type Description Date Medical History degenerative disc disease Medical History stenosis Medical History bladder cancer Medical History stroke Medical History DM 2 Surgical History APPENDECTOMY Surgical History CHOLECYSTECTOMY Surgical History bilateral knee replacements Surgical History cardiac pacemaker Surgical History bladder stimulator Surgical History open heart surgery Hospitalization History see above [facility] Other History general Narrative - Reported* Type [...] cataract-lens implants RACHELLE. Hospitalization History see above [facility] Other Hospital course Narrative No data available for this section [facility] Hospital Discharge instructions No data available for this section [facility] Progress note No data available for this section [facility] Reason for referral (narrative)* Consultation (Routine) - Authorized Specialty Diagnoses / Procedures Referred By Contac t Referred To Contact Cardiology Diagnoses Permanent atrial fibrillation (CMS/HCC) Ischemic cardiomyopathy ICD (implantable cardioverter-defibrillator) in place 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 Procedures Follow Up In Cardiology Rosemary Cartagena MD [address] [place] [address] [address] [place] [address] Saira Heart, RECREATIONAL COUNSELOR-OPHTHALMIC AIDE [address] [facility] [address], [address] [place] [address] Referral ID Status Reason Start Date Expiration Date V isits Requested Visits Authorized [id number] Authorized 10/25/2023 10/24/2024 1 1 * Consultation (Routine) - Authorized Specialty Diagnoses / Procedures Referred By Contac t Referred To Contact Sleep Medicine Diagnoses Obstructive sleep apnea syndrome Rosemary Cartagena MD [address] [facility] [address] [place] [address] Referral ID Status Reason Start Date Expiration Date Visits Requested Visits Authorized [id number] Authorized Specialty Services Required 10/25/2023 10/24/2024 1 1 * Consultation (Routine) - Authorized Specialty Diagnoses / Procedures Referred By Contac t Referred To Contact Cardiology Diagnoses Permanent atrial fibrillation (CMS/HCC) Ischemic cardiomyopathy ICD (implantable cardioverter-defibrillator) in place 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 Procedures Follow Up In Cardiology Rosemary Cartagena MD [address] [facility] [address] [place] [address] Rosemary Cartagena MD [address] [facility] [address] [place] [address] Referral ID Status Reason Start Date Expiration Date V isits Requested Visits Authorized [id number] Authorized 10/25/2023 10/24/2024 1 1 [facility] Work Phone: Reason for referral (narrative)* Consultation (Routine) - Authorized Specialty Diagnoses / Procedures Referred By Contac t Referred To Contact Cardiology Diagnoses Ischemic cardiomyopathy Procedures Follow Up In Cardiology Saira Heart, RECREATIONAL COUNSELOR-OPHTHALMIC AIDE [address] [facility] [address], [address] [place] [address] Referral ID Status Reason Start Date Expiration Date V isits Requested Visits Authorized [id number] Authorized 12/06/2023 12/05/2024 1 1 [facility] Work Phone: Refczp for referral (narrative)* Consultation (Routine) - Authorized Specialty Diagnoses / Procedures Referred By Contac t Referred To Contact Cardiology Diagnoses Ischemic cardiomyopathy Procedures Follow Up In Cardiology Saira Heart APRN-OPHTHALMIC AIDE [address] [facility] [address], [address] [address] Referral ID Status Reason Start Date Expiration Date V isits Requested Visits Authorized [id number] Authorized 12/22/2023 12/21/2024 1 1 [facility] Work Phone: Rencfv for referral (narrative)* Consultation (Routine) - Authorized Specialty Diagnoses / Procedures Referred By Contac t Referred To Contact Cardiology Diagnoses Congestive heart failure, NYHA class 3, chronic, systolic (Multi) Procedures Follow Up In Cardiology Rosemary Cartagena MD [address] [place] [address] Rosemary Cartagena MD [address] [place] [id number] Referral ID Status Reason Start Date Expiration Date V isits Requested Visits Authorized [id number] Authorized 04/24/2024 04/24/2025 1 1 T [facility] Work Phone: Reodcy for visit Narrative* Consultation (Routine) - Authorized Specialty Diagnoses / Procedures Referred By Contac t Referred To Contact Cardiology Diagnoses ICD (implantable cardioverter-defibrillator) in place senior care 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 Parkinson's disease, unspecified whether dyskinesia present, unspecified whether manifestations fluctuate Falls frequently Rosemary Cartagena MD [address] [facility] [address] [place] [address] Phone: tel: fax: Fabiano Pickering MD [address] [facility] [address] [place] [address] Phone: tel: fax: Referral ID Status Reason Start Date Expiration Date Visits Requested Visits Authorized [id number] Authorized Specialty Services Required 4 07/27/2025 1 1 [facility] Work Phone: Reseqa for visit Narrative* Auth/Cert Specialty Diagnoses / Procedures Referred By Godwin romo Referred To Contact Diagnoses Atrial fibrillation, unspecified type (Multi) Atrial fibrillation, unspecified type (Multi) [I48.91] Procedures NC PERQ CLSR TCAT L ATR APNDGE W/ENDOCARDIAL IMPLNT NC PERQ CLSR TCAT L ATR APNDGE W/ENDOCARDIAL IMPLNT LAAO (Left Atrial Appendage Occlusion) [place] [address] [place] [address] Phone: tel: fax: [facility] [address] [address] [facility] [address] [place] [address] Phone: tel: fax: Referral ID Status Reason Start Date Expiration Date Visits Re quested Visits Authorized [id number] 1 1 [facility] Work Phone: Reeigz for visit Narrative* Auth/Cert Specialty Diagnoses / Procedures Referred By Godwin romo Referred To Contact Diagnoses Atrial fibrillation, unspecified type (Multi) Atrial fibrillation, unspecified type (Multi) [I48.91] Procedures NC PERQ CLSR TCAT L ATR APNDGE W/ENDOCARDIAL IMPLNT NC PERQ CLSR TCAT L ATR APNDGE W/ENDOCARDIAL IMPLNT LAAO (Left Atrial Appendage [place]cclusion) [place] [address] [place] [address] Phone: tel: fax: [facility] [place] [address] [address] [place] [address] Phone: tel: fax: Referral ID Status Reason Start Date Expiration Date Visits Re quested Visits Authorized [id number] 1 1 [facility] Work Phone: Summary Purpose Family History [...] FoundDocuments on File Type Date Recorded 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 [...] Lumbar degenerative disc disease (M51.36) Referral Organization [facility] Pain Managemen t Referring Provider First Name Ryder Referring Provider Last Name Ranjeet Referring Provider Specialty Pain Medici ne Referred Organization [facility] Ne urosurgery Referred Provider Maciej Maciel Dale Referred Address [address] [facility] ,[place], [place],[address] Referred Provider Specialty Neurological Surgery Referral Priority Routine General Notes Tarsha Nieto V 02:53:20 PM >Patient had CT scan of the lumbar spine in [place] earlier this year. He has a pacemaker/defibrillator and cannot have MRI Reason *FU 06/24 eval and treat Diagnosis 1 Lower extremity pain (M79.606) Referral Organization [facility] Pain Managemen t Referring Provider First Name Ryder Referring Provider Last Name Ranjeet Referring Provider Specialty Pain Medici ne Referred Organization [facility] Vascular Surge ry Referred Provider Abdon Jackman Referred Address [address] [facility],[address],[place], [place],[address] Referred Provider Specialty Vascular Laila haresh Referral Priority Routine General Notes Sadaf Hernandez 10:25:46 AM >p2p sent Reason Evaluate and Treat Diagnosis 1 Spondylolisthesis, l umbar region (M43.16) Referral Organization [facility] urosurgery Referring Provider First Name Osvaldo Referring Provider Last Name Raheem Referring Provider Specialty Neurologica l Surgery Referred Organization [facility] Referred Address [address] [place], [place],[address] Referred Provider Specialty Physical The rapist Referral Priority Routine Specialty Diagnoses / Procedures Referred By Contac t Referred To Contact Cardiology Diagnoses Abnormal EKG Sleep apnea, unspecified type Permanent atrial fibrillation (CMS/HCC) Shortness of breath Procedures Transthoracic Echo (TTE) Complete NC ECHO TRANSTHORC R-T 2D W/WO M-MODE REC F-UP/LMTD NC DOP ECHOCARD COLOR FLOW VELOCITY MAPPING NC DOP ECHOCARD PULSE WAVE W/SPECTRAL F-UP/LMTD STD Rosemary Cartagena MD [address] [facility] [address] [place] [address] Referral ID Status Reason Start Date Expiration Date Visits Requested Visits Authorized [id number] Pending Review Perform Procedure 3 08/29/2024 1 1 Specialty Diagnoses / Procedures Referred By Contac t Referred To Contact Cardiology Diagnoses ICD (implantable cardioverter-defibrillator) in place Ischemic cardiomyopathy Rosemary Cartagena MD [address] [facility] [address] [place] [address] Referral ID Status Reason Start Date Expiration Date Visits Requested Visits Authorized [id number] Authorized Specialty Services Required 3 08/29/2024 1 1 Specialty Diagnoses / Procedures Referred By Contac t Referred To Contact Diagnoses ICD (implantable cardioverter-defibrillator) in place Permanent atrial fibrillation (CMS/HCC) Procedures ECG 12 Lead Rosemary Cartagena MD [address] [facility] [address] [place] [address] Referral ID Status Reason Start Date Expiration Date V isits Requested Visits Authorized [id number] Pending Review 08/30/2023 08/29/2024 1 1 Specialty Diagnoses / Procedures Referred By Contac t Referred To Contact Cardiology Diagnoses Permanent atrial fibrillation (CMS/HCC) Ischemic cardiomyopathy Procedures Follow Up In Cardiology Rosemary Cartagena MD [address] [facility] [address] [place] [address] Rosemary Cartagena MD [address] [facility] [address] [place] [address] Referral ID Status Reason Start Date Expiration Date V isits Requested Visits Authorized [id number] Authorized 08/30/2023 08/29/2024 1 1 Specialty Diagnoses / Procedures Referred By Contac t Referred To Contact Physical Therapy Diagnoses Gait difficulty Balance problem Procedures NC OFFICE/OUTPATIENT NEW HIGH MDM 60 MINUTES Viky Rollins PA [address] [place] [address] Referral ID Status Reason Start Date Expiration Date Visits Requested Visits Authorized [id number] Authorized Specialty Services Required 06/14/2024 12/11/2024 10 10 Specialty Diagnoses / Procedures Referred By Contac t Referred To Contact Radiology Diagnoses Hyperreflexia Balance problem Procedures CT cervical spine wo IV contrast Viky Rollins PA [address] [place] [address] [facility] Scheduling [address] [place] [address] Referral ID Status Reason Start Date Expiration Date Visits Re quested Visits Authorized [id number] Closed 06/13/2024 12/10/2024 1 1 Specialty Diagnoses / Procedures Referred By Godwin t Referred To Contact Radiology Diagnoses Gait difficulty Balance problem Procedures CT head wo IV contrast Viky Rollins PA [address] [place] [address] [facility] Scheduling [address] [place] [address] Referral ID Status Reason Start Date Expiration Date Visits Re quested Visits Authorized [id number] Closed 06/13/2024 12/10/2024 1 1 Chief Complaint [...] section and content) DATE CREATED AUTHOR 03/02/2018 [facility] o[facility]ital DATE CREATED AUTHOR AUTHOR'S ORGANIZ ATION 06/26/2019 [facility] DATE CREATED AUTHOR AUTHOR'S ORGANIZ ATION 09/04/2022 [facility] DATE CREATED AUTHOR AUTHOR'S ORGANIZ ATION 06/01/2024 [facility] DATE CREATED AUTHOR AUTHOR'S ORGANIZ ATION 11/06/2024 [facility] DATE CREATED AUTHOR AUTHOR'S ORGANIZ ATION 12/05/2024 [facility] DATE CREATED AUTHOR AUTHOR'S ORGANIZ ATION 12/24/2024 [facility] DATE CREATED AUTHOR AUTHOR'S ORGANIZ ATION 12/30/2024 [facility] DATE CREATED AUTHOR AUTHOR'S ORGANIZ ATION 02/07/2025 [facility] DATE CREATED AUTHOR AUTHOR'S ORGANIZ ATION 02/08/2025 [facility] Amb[facility] Reason for Visit (unrecogniz ed section and content) Status Reason Specialty Diagnoses / Procedures Referre d By Contact Referred To Contact Diagnoses S/P ICD (internal cardiac defibrillator) procedure manager cath lab Procedures manager cath lab Raúl Vale MD [address] [place], [place] [facility] Reason Comments New Patient Visit Re-establish Specialty Diagnoses / Procedures Referred By Godwin t Referred To Contact Diagnoses ICD (implantable cardioverter-defibrillator) in place Permanent atrial fibrillation (CMS/HCC) Procedures ECG 12 Lead oRsemary Cartagena MD [address] [address] Referral ID Status Reason Start Date Expiration Date V isits Requested Visits Authorized [id number] Pending Review 08/30/2023 08/29/2024 1 1 Specialty Diagnoses / Procedures Referred By Yingac t Referred To Contact Cardiology Diagnoses Abnormal EKG Sleep apnea, unspecified type Permanent atrial fibrillation (CMS/HCC) Shortness of breath Procedures Transthoracic Echo (TTE) Complete NC ECHO TRANSTHORC R-T 2D W/WO M-MODE REC F-UP/LMTD NC DOP ECHOCARD COLOR FLOW VELOCITY MAPPING NC DOP ECHOCARD PULSE WAVE W/SPECTRAL F-UP/LMTD STD Rosemary Cartagena MD [address] [facility] [address] [place] [address] Referral ID Status Reason Start Date Expiration Date Visits Requested Visits Authorized [id number] Pending Review Perform Procedure 08/29/2024 1 1 Reason Comments Follow-up 8 week Specialty Diagnoses / Procedures Referred By Godwin t Referred To Contact Cardiology Diagnoses Permanent atrial fibrillation (CMS/HCC) Ischemic cardiomyopathy Procedures Follow Up In Cardiology Rosemary Cartagena MD [address] [facility] [address] [place] [address] Rosemary Cartagena MD [address] [facility] [address] [place] [address] Referral ID Status Reason Start Date Expiration Date V isits Requested Visits Authorized [id number] Authorized 08/30/2023 08/29/2024 1 1 Reason Comments Follow-up 6 week per GM Specialty Diagnoses / Procedures Referred By Godwin t Referred To Contact Cardiology Diagnoses Permanent atrial fibrillation (CMS/HCC) Ischemic cardiomyopathy ICD (implantable cardioverter-defibrillator) in place 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 Procedures Follow Up In Cardiology Rosemary Cartagena MD [address] [place] [address] [facility], RECREATIONAL COUNSELOR-OPHTHALMIC AIDE [address] [facility] [address], [address] [place] [address] Referral ID Status Reason Start Date Expiration Date V isits Requested Visits Authorized [id number] Authorized 10/25/2023 10/24/2024 1 1 Reason Comments Follow-up 2w Specialty Diagnoses / Procedures Referred By Contac t Referred To Contact Cardiology Diagnoses Ischemic cardiomyopathy Procedures Follow Up In Cardiology Saira Heart, RECREATIONAL COUNSELOR-OPHTHALMIC AIDE [address] [facility] [address], [address] [address] Referral ID Status Reason Start Date Expiration Date V isits Requested Visits Authorized [id number] Authorized 12/06/2023 12/05/2024 1 1 Reason Comments Back Pain Memory Loss Reason Comments Back Pain Parkinson's Disease Reason Comments Follow-up 3 month Specialty Diagnoses / Procedures Referred By Contac t Referred To Contact Cardiology Diagnoses Congestive heart failure, NYHA class 3, chronic, systolic Procedures Follow Up In Cardiology Rosemary Cartagena MD [address] [place] [address] Phone: tel: fax: Rosemary Cartagena MD [address] [place] [address] Phone: tel: fax: Referral ID Status Reason Start Date Expiration Date V isits Requested Visits Authorized [id number] Authorized 04/24/2024 04/24/2025 1 1 Reason Comments Follow-up 4m with sp Specialty Diagnoses / Procedures Referred By Godwin t Referred To Contact Cardiology Diagnoses Permanent atrial fibrillation (Multi) Ischemic cardiomyopathy ICD (implantable cardioverter-defibrillator) in place 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 Procedures Follow Up In Cardiology Rosemary Cartagena MD [address] [place] [address] Rosemary Cartagena MD [address] [place] [address] Referral ID Status Reason Start Date Expiration Date V isits Requested Visits Authorized [id number] Authorized 10/25/2023 10/24/2024 1 1 Reason Comments Follow-up Symptoms Reason Comments Hospital Follow-up S/p watchman 02.07.2 5 Reason Comments Parkinson's Disease Care Teams (unrecognized sec tion and content) Team Status: Active Member Role Status Dates Shanique Anderson DO Primary Care Provider Active Team Status: Inactive Member Role Status Dates Shanique Anderson DO Primary Care Provider, Attending Hilary rockwell Active Silverware Supervisor Relationship Specialty Start Date End Date Shanique Anderson DO [address] [place] [address] PCP - General Family Medicine 08/30/23 Team Status: Inactive Member Role Status Dates Shanique Anderson DO Primary Care Provider Active Rosemary Cartagena MD Attending Provider Active Silverware Supervisor Relationship Specialty Start Date End Date Shanique Anderson DO [address] [place] [address] PCP - General Family Medicine 08/30/23 Silverware Supervisor Relationship Specialty Start Date End Date Shanique Anderson, [address] [place] [address] PCP - General Family Medicine 08/30/23 Team Status: Inactive Member Role Status Dates Shanique Anderson DO Primary Care Provider Active Start: December 03, 2023 End: December 03, 2023 Rosemary Cartagena MD Attending Provider Active Star t: December 03, 2023 End: December 03, 2023 Silverware Supervisor Relationship Specialty Start Date End Date Shanique Anderson DO [address] [place] [address] PCP - General Family Medicine 08/30/23 Silverware Supervisor Relationship Specialty Start Date End Date Shanique Anderson DO [address] [place] [address] PCP - General Family Medicine 08/30/23 Team [...] June 07, 2024 End: June 07, 2024 Silverware Supervisor Relationship Specialty Start Date End Date Unallocated, MD Andrew Sharpe0 [facility] [place] [address] PCP - General Family Medicine 12/06/23 Viky Rollins PA [address] [facility] [address] [place] [address] Physician Carpenter [employer] Neurology 12/06/23 Silverware Supervisor Relationship Specialty Start Date End Date Unallocated, MD Selvin Sharpe [facility] [place] [address] PCP - General Family Medicine 12/06/23 Viky Rollins PA [address] [address] Physician Carpenter [employer] Neurology 12/06/23 Team Status: Active Member Role [...] June 29, 2024 End: June 29, 2024 Silverware Supervisor Relationship Specialty Start Date End Date Unallocated, William Vaughan MD [address] [place] [address] PCP - General Family Medicine 12/06/23 Viky Rollins PA [address] [address] Physician Carpenter [employer] Neurology 12/06/23 Silverware Supervisor Relationship Specialty Start Date End Date Unallocated, William Vaughan MD [address] [place] [address] PCP - General Family Medicine 12/06/23 Viky Rollins PA [address] [address] Physician Carpenter [employer] Neurology 12/06/23 Silverware Supervisor Relationship Specialty Start Date End Date Shanique Anderson DO [address] [place] [address] PCP - General Family Medicine 08/30/23 Silverware Supervisor Relationship Specialty Start Date End Date Shanique Anderson MD [address] [place] [address] PCP - General Family Medicine 08/24/24 Viky Rollins PA [address] [address] [place] [address] Physician Carpenter [employer] Neurology 12/06/23 Silverware Supervisor Relationship Specialty Start Date End Date JustinShanique, DO [address] [place] [address] PCP - General Family Medicine 08/30/23 Silverware Supervisor Relationship Specialty Start Date End Date Shanique Anderson MD [address] [place] [phone] PCP - General Family Medicine 08/24/24 Viky Rollins PA [address] [address] Physician Carpenter [employer] Neurology 12/06/23 Silverware Supervisor Relationship Specialty Start Date End Date Shanique Anderson, DO [address] [place] [address] PCP - General Family Medicine 08/30/23 Silverware Supervisor Relationship Specialty Start Date End Date JustinShanique Shraddhaaditya Weaver, DO [address] [place] [address] PCP - General Family Medicine 08/30/23 Silverware Supervisor Relationship Specialty Start Date End Date JustinShanique Shraddhaaditya Weaver, DO [address] [place] [address] PCP - General Family Medicine 08/30/23 Silverware Supervisor Relationship Specialty Start Date End Date Shanique Anderson, DO [address] [place] [address] PCP - General Family Medicine 08/30/23 Silverware Supervisor Relationship Specialty Start Date End Date Shanique Anderson, DO [address] [place] [address] PCP - General Family Medicine 08/30/23 Silverware Supervisor Relationship Specialty Start Date End Date Shanique Anderson, [address] [place] [address] PCP - General Family Medicine 08/30/23 Susannah Palomares LPN Care School Transportation Director 10/23/24 Silverware Supervisor Relationship Specialty Start Date End Date Shanique Anderson MD [address] [facility] [place] [address] PCP - General Family Medicine 08/24/24 Viky Rollins PA [address] [place], [place] [address] Physician Carpenter [employer] Neurology 12/06/23 Karen Woo DO [address] [place] [address] Referring Physician Neurology 11/09/24 Silverware Supervisor Relationship Specialty Start Date End Date Shanique Anderson MD [address] [facility] [place] [address] PCP - General Family Medicine 08/24/24 Viky Rollins PA [address] [place] [address] Physician Carpenter [employer] Neurology 12/06/23 Karen Woo DO [address] [place] [address] Referring Physician Neurology 11/09/24 Silverware Supervisor Relationship Specialty Start Date End Date Shanique Anderson MD [address] [place] [address] PCP - General Family Medicine 08/24/24 Viky Rollins PA [address] [place] [address] Physician Carpenter [employer] Neurology 12/06/23 Karen Woo DO [address] [place] [address] Referring Physician Neurology 11/09/24 Team Status: Inactive Member Role Status Dates Shanique Anderson DO Primary Care Provider Active Start: December 20, 2024 End: December 20, 2024 Tex Carranza MD Attending Provider Active Start: December 20, 2024 End: December 20, 2024 Silverware Supervisor Relationship Specialty [place] [address] [place] [phone] PCP - General Family Medicine 08/24/24 Viky Rollins PA [address] [place] [address] Physician Carpenter [employer] Neurology 12/06/23 Karen Woo DO [address] [place] [address] Referring Physician Neurology 11/09/24 Goals (unrecognized section [...] - Reason: Patient/family refused)1500 (Due)2100 (Due) pancrelipase (Sat-Hpfv-Nyvd) (Creon) 36,000-114,000- 180,000 unit per capsule 3 [...] 1815, Intraprocedure 1815 (New Bag - Provider: hSabnam Alarcon RN) traMADol (Ultram) tablet 50 mg [...] PRIMARY CLINICAL RECORDS. [facility] [employer] [facility]. provides no warranty or guarantee of the accuracy or completeness of information in this document.
[2025-02-10 13:13] LABS: Anion Gap 12.3; Carbon Dioxide 30.3 mmol/L (21.0-32.0); Chloride 106 mmol/L (98-107); Estimated GFR (African America 48 (>=60 mL/min/1.73m^2); Estimated GFR (Non-African Ame 39 (>=60 mL/min/1.73m^2); Glucose 260 mg/dL (74-106); Potassium 4.6 mmol/L (3.5-5.1); Sodium 144 mmol/L (136-145)
== END 2025-02-10 12:45 | disposition home or self-care (01) ==
LOC: LAB 12:44
PROVIDERS: PCP Family Medicine; Visit Provider Internal Medicine Interventional Cardiology
DX: I50.22 Chronic systolic (congestive) heart failure (principal); I48.91 Unspecified atrial fibrillation
CPT/HCPCS: 36415; 80048; 82042; 83880; 84100

== ENCOUNTER 2025-02-14 13:22 | Emergency (ER) | payer MEDICARE, OTHER, SELFPAY ==
--- OUTSIDE RECORDS SUMMARY | 2013-09-28 13:27 | XMS_ITS | Encounter Summary ---
Author Organization [facility] Address [address] [place] [address] Care Team Providers Care Assignment Clerk Name Role Phone Candida Bhakta MD Primary Care Provider [phone] Encounter Details Date Type Department Care Team (Late st Contact Info) Description 09/28/2013 12:27 PM EST Hospital Encounter STV Pre-Admit Testing [address] [place] [id number] Jay Vergara MD Social History Tobacco Use [...] 6:54 PM EST) Narrative Procedure Note SCANNING, [facility] - 10/26/2013 6:54 PM EST [facility] Scanning BLOOD BANK PRODUCT ORDERABLES Fi nal Result * Urine culture clean catch (09/28/2013 4:32 PM EST) Specimen CLEAN CATCH URINE 09/28/2013 4:32 PM EST [facility] Special Requests NOT REPORTED 09/28/2013 4:32 PM EST [facility] Culture NO GROWTH 09/29/2013 10:51 PM EST [facility] Culture [facility] [employer] [address] [place] [address] 09/29/2013 10:51 PM EST [facility] Status FINAL 09/29/2013 09/29/19 14 10:51 PM EST [facility] 09/28/2013 4:32 PM EST 09/28/2013 4:32 PM EST us Jay Vergara MD MICROBIOLOGY - GENERAL ORD ERABLES Final Result [employer] [address] [place] [address], [facility] [phone] [facility] * Urinalysis (09/28/2013 4:32 PM EST) Color, UA YELLOW YEL 09/28/2013 9:17 PM EST [facility] Turbidity UA CLEAR CLEAR 09/28/2013 9:17 PM EST [facility] Glucose, Ur NEGATIVE NEG 09/28/2013 9:17 PM EST [facility] Bilirubin Urine NEGATIVE NEG 4 9:17 PM EST [facility] Ketones, Urine NEGATIVE NEG 09/28/2013 9:17 PM EST [facility] Specific [place], UA 1.017 1.005 - 1.030 09/28/2013 9:17 PM EST [facility] Urine Hgb NEGATIVE NEG 09/28/2013 9:17 PM EST [facility] pH, UA 5.0 5.0 - 8.0 09/28/2013 9:17 PM EST [facility] Protein, UA NEGATIVE NEG 09/28/2013 9:17 PM EST [facility] Urobilinogen, Urine Normal NORM 09/28/2013 9:17 PM EST [facility] Nitrite, Urine NEGATIVE NEG 09/28/2013 9:17 PM EST [facility] Leukocyte Esterase, Urine NEGATIVE NEG 09/28/2013 9:17 PM EST [facility] Urinalysis Comments Microscopic exam not performed based on chemical results unless requested in 09/28/2013 9:17 PM EST [facility] Comment: original order. [employer] [address] [place] [address] 09/28/2013 4:32 PM EST 09/28/2013 4:32 PM EST us Jay Vergara MD URINE ORDERABLES Final Res ult [employer] [address] [place] [address], [facility] [phone] [facility] * MRSA DNA Probe (09/28/2013 3:48 PM EST) Specimen NASAL SWAB 09/28/2013 3:49 PM EST [facility] Special Requests NOT REPORTED 09/28/2013 3:49 PM EST [facility] Direct Exam NEGATIVE: MRSA DNA not detected by nucleic acid amplification. 09/28/2013 11:01 PM EST [facility] Direct Exam Results should be used as an adjunct to 09/28/2013 11:01 PM EST [facility] Direct Exam nosocomial control efforts to identify patients needing enhanced precautions. 09/28/2013 11:01 PM EST [facility] Direct Exam The test is not intended to identify patients with staphylococcal infections. 09/28/2013 11:01 PM EST [facility] Direct Exam Results should not be used to guide or monitor treatment for MRSA infections. 09/28/2013 11:01 PM EST [facility] Direct Exam [address] [address] 09/28/2013 11:01 PM EST [facility] Status FINAL 09/28/2013 09/28/19 14 11:01 PM EST [facility] 09/28/2013 3:48 PM EST 09/28/2013 3:48 PM EST Jay Vergara MD MICROBIOLOGY - GENERAL ORD ERABLES Final Result Performing Organization Address [facility]/ZIP Co de Phone Number [address] [address], [facility] [phone] [facility] * (ABNORMAL) Protime-INR (09/28/2013 2:44 PM EST) Protime 25.2(H) 9.4 - 12.6 sec 09/28/2013 3:19 PM EST [facility] INR 2.4 09/28/2013 3:19 PM EST [facility] Comment: Therapeutic Range: Moderate Anticoagulant Intensity: INR = 2.0-3.0 High Anticoagulant Intensity: INR = 2.5-3.[address] [id number] BLOOD SPECIMEN / Unknown 09/28/2013 2:44 PM EST 09/28/2013 2:44 PM EST Jay Vergara MD HEMATOLOGY ORDERABLES Laurel l Result Performing Organization Address City/[facility]/ZIP Co de Phone Number [address] [address], [facility] [phone] [facility] * (ABNORMAL) APTT (09/28/2013 2:44 PM EST) APTT 32.4(H) 21.3 - 31.3 sec 09/28/2013 3:16 PM EST [facility] Comment:[facility] [employer] [address] [place] [address] BLOOD SPECIMEN / Unknown 09/28/2013 2:44 PM EST 09/28/2013 2:44 PM EST us Jay Vergara MD HEMATOLOGY ORDERABLES Laurel quick Result [address] [place] [address], [facility] [phone] [facility] * (ABNORMAL) Comprehensive metabolic panel (09/28/2013 2:44 PM EST) [facility] Glucose 99 74 - 106 mg/dL 09/28/2013 3:20 PM EST [facility] BUN 22(H) 6 - 20 mg/dL 09/28/2013 3:20 PM EST [facility] Creatinine 1.13 0.6 - 1.4 mg/dL 09/28/2013 3:20 PM EST [facility] BUN/Creatinine Ratio NOT REPORTED 9 - 20 [facility] Calcium 9.0 8.6 - 10.4 mg/dL 09/28/2013 3:20 PM EST [facility] Sodium 141 136 - 145 mmol/L 09/28/2013 3:20 PM EST [facility] Potassium 3.9 3.5 - 5.1 mmol/L 09/28/2013 3:20 PM EST [facility] Chloride 104 98 - 110 mmol/L 09/28/2013 3:20 PM EST [facility] CO2 30 20 - 31 mmol/L 09/28/2013 3:20 PM EST [facility] Anion Gap 11 8 - 16 mmol/L 09/28/2013 3:20 PM EST [facility] Alkaline Phosphatase 74 25 - 100 U/L 09/28/2013 3:20 PM EST [facility] ALT 19 4 - 40 U/L 09/28/2013 3:20 PM EST [facility] AST 26 8 - 36 U/L 09/28/2013 3:20 PM EST [facility] Total Bilirubin 0.38 0.3 - 1.2 mg/dL 09/28/2013 3:20 PM EST [facility] Total Protein 7.0 6.4 - 8.3 g/dL 09/28/2013 3:20 PM EST [facility] Albumin 4.2 3.4 - 4.8 g/dL 09/28/2013 3:20 PM EST [facility] Albumin/Globulin Ratio 1.5 1.0 - [...] kidney function when reported with serum creatinine. [facility] [employer] [address] [place] [id number] GFR Staging NOT REPORTED [facility] [employer] BLOOD SPECIMEN / Unknown 09/28/2013 2:44 PM EST 09/28/2013 2:44 PM EST Jay Vergara MD CHEMISTRY ORDERABLES Final Result [facility] [employer] [address] [place], [place] [id number], [facility] [phone] [facility] * (ABNORMAL) CBC (09/28/2013 2:44 PM EST) WBC 6.9 3.5 - 11.0 k/uL 09/28/2013 2:52 PM EST [facility] RBC 3.90(L) 4.5 - 5.9 m/uL 09/28/2013 2:52 PM EST [facility] Hemoglobin 13.3(L) 13.5 - 17.5 g/dL 09/28/2013 2:52 PM EST [facility] Hematocrit 38.7(L) 41 - 53 % 09/28/2013 2:52 PM EST [facility] MCV 99.1 80 - 100 fL 09/28/2013 2:52 PM EST [facility] MCH 34.1(H) 26 - 34 pg 09/28/2013 2:52 PM EST [facility] MCHC 34.4 31 - 37 g/dL 09/28/2013 2:52 PM EST [facility] RDW 14.4 12.5 - 15.4 % 09/28/2013 2:52 PM EST [facility] Platelets 221 140 - 450 k/uL 09/28/2013 2:52 PM EST [facility] MPV 8.1 6.0 - 12.0 fL 09/28/2013 2:52 PM EST [facility] Comment:[employer] [address] [place] [address] 09/28/2013 2:44 PM EST 09/28/2013 2:44 PM EST us Jay Vergara MD HEMATOLOGY ORDERABLES Laurel l Result Performing Organization Address [facility] Co de Phone Number [employer] [address] [id number], [facility] [phone] [facility] * EKG 12 Lead (09/28/2013 1:37 PM EST) Ventricular Rate 79 BPM [facility] Atrial Rate 187 BPM [facility] QRS Duration 94 ms [facility] Q-T Interval 358 ms [facility] QTc Calculation (Bazett) 410 ms [facility] R Preble 12 degrees [facility] T Preble -35 degrees [facility] 09/28/2013 1:37 [...] FINAL Procedure: PAT Sep 28 2013 12:46PM [id number] CHEST PA AND LATERAL Reason for Exam: ^preop knee arthroplasty FULL RESULT: Chest 2 views Comparison: 05/25/2006 Cardiothoracic ratio is normal. Sternal wire sutures are in place. Left-sided bipolar pacemaker is in place. No acute parenchymal infiltrate, edema, effusion or pneumothorax. 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 IMPRESSION: No acute cardiopulmonary disease. Report Transcribed by: [facility] on Sep 28 2013 1:05P Read by: GLORIA SALVADOR M.D. [id number] on Sep 28 2013 1:05P Electronically Signed by: DR. GLORIA SALVADOR M.D. on: Sep 28 2013 1:05P Procedure Note Gloria Salvador MD - 09/28/2013 FINAL Procedure: PAT Sep 28 2013 12:46PM [id number] CHEST PA AND LATERAL Reason for Exam: ^preop knee arthroplasty FULL RESULT: Chest 2 views Comparison: 05/25/2006 Cardiothoracic ratio is normal. Sternal wire sutures are in place. Left-sided bipolar pacemaker is in place. No acute parenchymal infiltrate, edema, effusion or pneumothorax. 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 IMPRESSION: No acute cardiopulmonary disease. Report Transcribed by: [facility] on Sep 28 2013 1:05P Read by: GLORIA SALVADOR M.D. [id number] on Sep 28 2013 1:05P Electronically Signed by: DR. GLORIA SALVADOR M.D. on: Sep 28 2013 1:05P Jay Vergara MD IMG DIAGNOSTIC IMAGING ORD ERABLES Edited Result - Final * TYPE AND SCREEN (09/28/2013 12:45 PM EST) Expiration Date 10/06/2013 4 3:20 PM EST [facility] Arm Band Number [id number] 4 3:20 PM EST [facility] ABO/Rh A POSITIVE 09/28/2013 3:20 PM EST [facility] Antibody Screen NEGATIVE 4 3:37 PM EST [facility] . [employer] Unit Number [id number] SVT 10/06/2013 9:51 AM EST [facility] Product Code Leukocyte Reduced Red Cell 10/06/2013 9:51 AM EST [facility] Unit Divison 0 10/06/2013 9:51 AM EST [facility] Dispense Status TRANSFUSED 4 8:36 AM EST [facility] Transfusion Status OK TO TRANSFUSE 10/06/2013 9:51 AM EST [facility] Crossmatch Result COMPATIBLE 10/06/2013 9:51 AM EST [facility] Comment: Performed at [facility] [address] [place] [address] . [employer] Unit Number [id number] SVT 10/06/2013 9:51 AM EST [facility] [...] MD BLOOD BANK TEST ORDERABLES Final Result [facility] [address] [place] [address], [facility] [phone] [facility] documented in this encounter Visit Diagnoses Not on filedocumented in this encounter Care Teams Assignment Clerk Relationship Specialty Start Date End Date Candida Bhakta MD PCP - General 02/04/12 07/26/16 documented as of this encounter
--- OUTSIDE RECORDS SUMMARY | 2025-01-31 14:20 | XMS_ITS | Encounter Summary ---
Author Organization [facility] Address [address] [facility] [place] [address] Care Team Providers Care Hospital Fellow Name Role Phone Viky Rollins Unavailable Maicol Anderson MD Primary Care Provider [phone] Karen Woo DO Unavailable [phone] Encounter Details Date Type Department Care Team (Latest Contact Info) Description 01/31/2025 2:20 PM EDT Office Visit [facility] [address] [place] [address] Viky Rollins PA [address] [place] [address] Parkinson's disease without dyskinesia or [...] triceps, wrist extensors, wrist extensors, wrist flexor, guyline operator strength 5/5. LUE Strength deltoid, biceps, triceps, wrist extensors, wrist extensors, wrist flexor, guyline operator strength 5/5. RLE Strength illopsoas, quadriceps, tibialis [...] Patient with history of stroke and Agent [place] exposure contributing to PTSD. He also has [...] diabetic and was also exposed to [place] per his 's report. He experienced worsening bradykinesia with Sinemet lowering. He presented to [facility] [place] for increase in lower extremity weakness. [...] disorder documented in this encounter Care Teams Hospital Fellow Relationship Specialty Start Date End Date Maicol Anderson MD [address] [place] [address] PCP - General Family Medicine 08/24/24 Viky Rollins PA [address] [place] [address] Physician Blackjack Dealer Neurology 12/06/23 Karen Woo DO [address] [place] [address] Referring Physician Neurology 11/09/24 documented as of this encounter
--- OUTSIDE RECORDS SUMMARY | 2025-02-02 13:45 | XMS_ITS | Encounter Summary ---
Author Organization [facility] Address [address] [place] [address] Phone Care Team Providers Care C Consultant Name Role Phone JustinNikkiaditya Saldanat Primary Care Prov ider Reason for Referral * Consultation (Routine) - Authorized Specialty Diagnoses / Procedures Referred By Godwin romo Referred To Contact Cardiology Diagnoses Congestive heart failure, NYHA class 3, chronic, systolic Procedures Follow Up In Cardiology Rosemary Cartagena MD [address] [address] Phone: tel: fax: Rosemary Cartagena MD [address] [address] Phone: tel: fax: Referral ID Status Reason Start Date Expiration Date V isits Requested Visits Authorized [id number] Authorized 02/02/2025 02/02/2026 1 1 Reason for Visit * Reason Comments Follow-up 6 month Follow up fo r Coronary Artery Disease * Consultation (Routine) - Authorized Specialty Diagnoses / Procedures Referred By Godwin romo Referred To Contact Cardiology Diagnoses Congestive heart failure, NYHA class 3, chronic, systolic Procedures Follow Up In Cardiology Rosemary Cartagena MD [address] [address] Phone: tel: fax: Rosemary Cartagena MD 917 [facility] [address] [place] [address] Phone: tel: fax: Referral ID Status Reason Start Date Expiration Date V isits Requested Visits Authorized [id number] Authorized 07/27/2024 07/27/2025 1 1 Encounter Details Date Type Department Care Team (Late st Contact Info) Description 02/02/2025 1:45 PM EDT Office Visit [facility] 703 [facility] [address] [place] [address] Rosemary Cartagena MD 917 [facility] [address] [place], [place] [id number] 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); Congestive heart failure, NYHA class 3, chronic, systolic; Ischemic cardiomyopathy; Medication course changed; 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; Former smoker; Body mass index (BMI) of 29.0 to 29.9 in adult; Coronary artery disease involving [place] coronary artery of [place] heart without angina pectoris; Presence of Watchman left atrial appendage closure device; Longstanding persistent atrial fibrillation (Multi) Social History Tobacco Use Types Packs/Day Years Used Date Smoking Tobacco: Former Cigarettes Smokeless Tobacco: Never Alcohol Use Standard Drinks/Week Comments Not Currently 0 (1 standard drink = 0.6 oz pur e alcohol) 1 YEARLY AUDIT-C Answer Date Recorded Q1: How often do you have a drink containing alcohol? Never 10/21/2024 Q2: How many drinks containi ng alcohol do you have on a typical day when you are drinking? Patient does not drink Q3: How often do you have si x or more drinks on one occasion? Never 10/21/2024 Overall Financial Resource Strain (CARDIA) Answe r Date Recorded How hard is it for you to pa y for the very basics like food, housing, medical care, and heating? Not hard at all 10/21/2024 PHQ-2 Answer Date Recorded Patient Health Questionnaire-2 Score 0 10/21/2024 PRAPARE - Transportation Answer Date Re corded In the past 12 months, has l ack of transportation kept you from medical appointments or from getting medications? No 04/2025 In the past 12 months, has l ack of transportation kept you from meetings, work, or from getting things needed for daily living? No 10/21/2024 Housing Stability Vital Sign Answer Yeison e Recorded In the last 12 months, was t here a time when you were not able to pay the mortgage or rent on time? No 10/21/2024 In the past 12 months, how m any times have you moved where you were living? 0 10/21/2024 At any time in the past 12 m [facility], were you homeless or living in a residential (including now)? No 10/21/2024 Sex and Gender Information Value Date Recorded Sex Assigned at Male 10/20/2024 9:58 PM EST Legal Sex Male 7:09 PM EST Gender Identity Male 10/20/2024 9:58 PM EST Sexual Orientation Straight 10/20/2024 9: 58 PM EST COVID-19 Exposure Response Date Recorded In the last 10 days, have yo u been in contact with someone who was confirmed or suspected to have Coronavirus/COVID-19? No / Unsure 02/02/2025 2:07 PM EDT documented as of this encounter Last Filed Vital Signs Vital Sign Reading Time Taken Comments Blood Pressure 110/60 02/02/2025 2:32 PM EDT Pulse 64 02/02/2025 2:32 PM EDT Temperature - - Respiratory Rate - - Oxygen Saturation - - Inhaled Oxygen Concentration - - Weight 79.4 kg (175 lb) 02/02/2025 2:32 PM EDT Height 165.1 cm (5' 5 ) 02/02/2025 2:32 PM EDT Body Mass Index 29.12 02/02/2025 2:32 PM EDT documented in this encounter Patient Instructions * Patient Instructions* Heaven Shah LPN - 02/02/2025 1:45 PM EDT Please bring all medicines, vitamins, and herbal supplements with you when you come to the office. Prescriptions will not be filled unless you are compliant with your follow up appointments or have a follow up appointment scheduled as per instruction of your physician. Refills should be requested at the time of your visit. BMI was above normal measurement. Current weight: 79.4 kg (175 lb) Weight change since last visit (-) denotes wt loss -7.6 lbs Weight loss needed to achieve BMI 25: 25.1 Lbs Weight loss needed to achieve BMI 30: -4.9 Lbs Provided instructions on dietary changes Provided instructions on exercise. STOP COREG. documented in this encounter Progress Notes * Rosemary Cartagena MD - 02/02/2025 1:45 PM EDT Images from the original note were not included. Chief Complaint: Chief Complaint Patient presents with Follow-up 6 month Follow up for Coronary Artery Disease Patient has multiple comorbidities which are listed below. He has chronic systolic left heart failure sinus node dysfunction, ICD in place, atherosclerotic disease of auto[place] bypass graft without angina pectoris, labile blood pressures, unable to maximize therapy for heart failure, tendency for fluid retention, high fall risk, accompanied by who keeps very close eye on him. Subjective : reports that his blood pressures have been fluctuating, and on several occasions she has had to hold his Entresto. She has maintained extensive list of his blood pressure and heart rate, at times however his blood pressure is in the 150s systolic. Today it was low and she had to hold the Entresto Review of Systems interval review of systems is negative for chest discomfort pressure tightness heaviness palpitations lightheadedness orthopnea paroxysmal nocturnal dyspnea dependent edema or claudication TIA or CVA type symptoms or bleeding diathesis. No symptoms of hypoglycemia. Activity level less than 4 METS. History of paroxysmal atrial flutter fibrillation, high fall risk, Watchman deviceimplant History so Far : 1. Chronic systolic [...] 5.7 cm, LV end-systolic diameter 4 cm 16. 35 mm Watchman FLX Pro device 10/20/2024 17. Echocardiogram October 21, 2024 moderately dilated left ventricle moderately dilated left atrium dilated right atrium no pericardial effusion Objective Wt Readings from Last 3 Encounters: 02/02/25 79.4 kg (175 lb) 10/27/24 82.8 kg (182 lb 9.6 oz) 10/21/24 83.6 kg (184 lb 4 oz) Vitals: 02/02/25 1432 BP: 110/60 BP Location: Right arm Patient Position: Sitting Pulse: 64 Weight: 79.4 kg (175 lb) Height: 1.651 m (5' 5 ) Physical Exam: GENERAL APPEARANCE: in no acute distress. CHEST: Symmetric and non-tender. Well-healed anterior scar of prior coronary artery bypass grafting, ICD generator left infraclavicular space. INTEGUMENT: Skin warm and dry HEENT: No [...] noted. Meds: Current Outpatient Medications Medication Instructions acetaminophen (TYLENOL) 650 mg, oral, Every 6 hours PRN aspirin 81 mg, oral, Daily busPIRone (BUSPAR) 5 mg, 2 times daily CALCIUM CARBONATE-VITAMIN D3 ORAL 1 capsule, 2 times daily carbidopa-levodopa (Sinemet) 10-100 mg tablet 1 tablet, 3 times daily cholecalciferol (Vitamin D-3) 25 MCG (1000 UT) tablet 3 tablets, Daily clopidogrel (PLAVIX) 75 mg, oral, Daily Creon 36,000-114,000- 180,000 unit capsule,delayed release(DR/EC) capsule 3 capsules, 3 times daily(morning, midday, late afternoon) DAILY MULTI-VITAMIN ORAL 1 capsule, Daily diazePAM (Valium) 2 mg tablet 1 tablet, Nightly PRN digoxin (LANOXIN) 125 mcg, oral, Daily famotidine (PEPCID) 20 mg, Nightly FERROUS SULFATE ORAL 325 mg, Daily fexofenadine ([place]) 180 mg, Daily furosemide (LASIX) 20 mg, oral, Daily insulin glargine (LANTUS) 14 Units, Daily RT loperamide (IMODIUM) 2 mg, Daily PRN magnesium oxide (MAG-OX) 420 mg, Daily memantine (NAMENDA) 28 mg, Daily mirabegron (MYRBETRIQ) 50 mg, Daily nitroglycerin (NITROSTAT) 0.4 mg, sublingual, Every 5 min PRN PARoxetine (PAXIL) 20 mg, Every morning potassium chloride CR (Klor-Con) 10 mEq ER tablet 10 mEq, oral, Daily, Do not crush, chew, or split. rivastigmine (Exelon) 13.3 mg/24 hour 1 patch, Daily rosuvastatin (CRESTOR) 5 mg, oral, Daily sacubitriL-valsartan (Entresto) 24-26 mg tablet 1 tablet, oral, 2 times daily, HOLD IF BP LESS [id number] tamsulosin (Flomax) 0.4 mg 24 hr capsule 1 capsule, Daily traZODone (DESYREL) 25 mg, Nightly Allergies: Fish oil, Jardiance [empagliflozin], Byetta [exenatide], Codeine, Demerol [meperidine], Invokana [canagliflozin], and Victoza 2-doroteo [liraglutide] LABS: Device interrogation 4 925-96% RV paced 7.7% atrial paced no atrial fibrillation no VT Testing Reviewed CBC: Lab Results Component Value Date WBC 8.2 10/21/2024 RBC 3.05 (L) 10/21/2024 HGB 10.2 (L) 10/21/2024 HCT 30.8 (L) 10/21/2024 PLT 174 10/21/2024 CMP: Lab Results Component Value Date NA 143 10/21/2024 K 4.1 10/21/2024 CL 105 10/21/2024 CO2 29 10/21/2024 BUN 35 (H) 10/21/2024 CREATININE 1.35 (H) 10/21/2024 GLUCOSE 112 (H) 10/21/2024 CALCIUM 8.9 10/21/2024 Magnesium: Lab Results Component Value Date MG 2.22 10/21/2024 Reviewed all available pertinent laboratory data and diagnostic testing results that occurred afterthe last office visit with me Assessment: 1. 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 Congestive heart failure, NYHA class 3, chronic, systolic Follow Up In Cardiology sacubitriL-valsartan (Entresto) 24-26 mg tablet Follow Up In Cardiology Basic Metabolic Panel B-Type Natriuretic Peptide Basic Metabolic Panel B-Type Natriuretic Peptide 3. Ischemic cardiomyopathy clopidogrel (Plavix) 75 mg tablet furosemide (Lasix) 20 mg tablet potassium chloride CR (Klor-Con) 10 mEq ER tablet 4. Medication course changed 5. 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 digoxin (Lanoxin) 125 MCG tablet 6. Former smoker 7. Body mass index (BMI) of 29.0 to 29.9 in adult 8. Coronary artery disease involving [place] coronary artery of [place] heart without angina pectorisrosuvastatin (Crestor) 5 mg tablet 9. Presence of Watchman left atrial appendage closure device 10. Longstanding persistent atrial fibrillation (Multi) Clinical Decision Making: Multiple comorbidities were addressed. Patient has not had any falls lately. His Watchman device was implanted in October 2024. 6 months of dual antiplatelet therapy in April2025 at which time he can go to a baby aspirin daily. I reviewed the home blood pressure logs. Patient does complain of fatigue, which is multifactorial, he was also apparently diagnosed with Parkinson's disease and he will start speech therapy next week. reports that there are no hypoglycemic episodes and that blood sugars are well-controlled. In view of arterial hypotension, we will discontinue the carvedilol, continue Entresto / twice daily, but hold if systolic blood pressure is less than 100. I talked about discontinuing the furosemide or reducing it to every other day, patient is very concerned that he will up with fluid if we reduce the Lasix dose. Follow up : 6 months Basic metabolic profile prior to next visit BMP prior to next visit Patient and very appreciative about care Now off anticoagulation and on dual antiplatelet therapy Unable to maximize guideline directed medical therapy for systolic heart failure because of arterial hypotension which is symptomatic. No change in cardiac medications today IHeaven LPN am scribing for, and in the presence of Dr. Rosemary Cartagena MD, FACC. I, Dr. Rosemary Cartagena MD, FACC, personally performed the services described in the documentation as scribed by Heaven Spears LPN in my presence, and confirm it is both accurate and complete. documented in this encounter Plan of Treatment Upcoming Encounters Date Type Department Care Team (Late st Contact Info) Description 02/16/2025 12:45 PM EDT Hospital Encounter [facility] [address] [facility] [address] [place] [address] 07/30/2025 2:45 PM EST Office Visit [facility] 7[address] [facility] [address] [place] [address] Rosemary Cartagena MD 917 [facility] [address] [place], [place] [phone] Scheduled Orders Name Type Priority Associated Diagnoses Orde r Schedule Basic Metabolic Panel Lab Routine Congestive heart failure, NYHA class 3, chronic, systolic Expected: 02/02/2025, Expires: 02/02/2026 B-Type Natriuretic Peptide Lab Routine Congestive heart failure, NYHA class 3, chronic, systolic Expected: 02/02/2025, Expires: 02/02/2026 documented as of this encounter Visit Diagnoses Diagnosis 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- Primary Congestive heart failure, NYHA class 3, chronic, systolic Ischemic cardiomyopathy Other specified forms of chronic ischemic heart disease Medication course changed 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 Unspecified essential hypertension Former smoker Personal history of tobacco use, presenting hazards to health Body mass index (BMI) of 29.0 to 29.9 in adult Coronary artery disease involving [place] coronary artery of [place] heart without angina pectoris Presence of Watchman left atrial appendage closure device Longstanding persistent atrial fibrillation (Multi) documented in this encounter Additional Health Concerns Assessment Noted Time A fall risk assessment has been complete d for the patient 02/02/2025 2:31 PM EDT documented as of this encounter Care Teams C Consultant Relationship Specialty Start Date End Date Maicol Anderson DO [address] [place] [address] PCP - General Family Medicine 08/30/23 documented as of this encounter
[2025-02-14] VITALS (25 sets, daily range): BP systolic 105–130; BP diastolic 49–95; PULSE 60–87; TEMP 36.4; O2SAT 92–97; BMI 29.1
--- OUTSIDE RECORDS SUMMARY | 2025-02-14 13:27 | XMS_ITS | Encounter Summary ---
Author Organization [facility] Address [address] [place] [address] Phone Care Team Providers Care Architecture Consultant Name Role Phone Maicol Anderson DO Primary Care Prov ider Susannah Palomares PRE SALES TECHNICAL ENGINEER Unavailable Encounter Details Date Type Department Care Team (Late st Contact Info) Description 09/02/2021 Orders Only [facility] [address] [place] [address] Conversion, Onbase Social History Tobacco Use Types [...] Description 02/16/2025 12:45 PM EDT Hospital Encounter [address] [place] [address] 07/30/2025 2:45 PM EST Office Visit [address] [place] [address] Rosemary Cartagena MD [address] [facility] [address] [place], [place] [phone] Scheduled Orders Name Type Priority Associated Diagnoses Orde r Schedule OUTSIDE LAB SCAN Lab Ordered: 09/02/2021 documented as of this encounter Visit Diagnoses Not on filedocumented in this encounter Care Teams Architecture Consultant Relationship Specialty Start Date End Date Maicol Anderson DO [address] [place] [address] PCP - General Family Medicine 08/30/23 Susannah Palomares, KAROL Speech Communication InstructorIngot Stripper 10/23/24 01/18/25 documented as of this encounter
--- OUTSIDE RECORDS SUMMARY | 2025-02-14 13:27 | XMS_ITS | Clinical Summary ---
Author Organization [facility] Address [address] 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 Place 1 tablet [...] 5 mg tabletIndications: 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 Take 1 tablet [...] 5 mg tabletIndications: 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 Take 1 tablet [...] graft 08/30/2023 Coronary artery disease invo lving ch[place]oon[place] coronary artery of chuloonawick heart without angina pectoris 08/30/2023 Obstructive sleep apnea syndrome 08/30/2023 Permanent atrial fibrillation (Multi) 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/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 1 10/31/2022 Shortness of breath 08/30/2023 Parkinson disease ([facility]) 08/30/2023 History of stroke 08/30/2023 BPH (benign prostatic hyperplasia) 08/30/2023 Ischemic cardiomyopathy 08/30/2023 Diabetes mellitus ([facility]) 08/30/2023 Encounters Date Type Department Care Team Description 02/14/2025 Telephone [facility] 917 [facility] 130 [place] [address] Madhavi Engel RN 02/06/[address] [place] [address] Heaven Shah LPN 02/02/2025 1:45 PM EDT Office Visit [address] [address] Rosemary Cartagena MD 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); Congestive heart failure, NYHA class 3, chronic, systolic; Ischemic cardiomyopathy; Medication course changed; 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; Former smoker; Body mass index (BMI) of 29.0 to 29.9 in adult; 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; Presence of Watchman left atrial appendage closure device; Longstanding persistent atrial fibrillation (Multi) 02/02/2025 Travel 01/25/2025 Telephone [facility] 703 [facility] [address] [place] [address] Brien Dewey MA 01/18/2025 Patient Outreach [facility] 703 [facility] [address] [place] [address] Susannah Palomares, CHEMICAL PLANT TECHNICAL DIRECTOR 12/19/2024 Patient Outreach [facility] 917 [facility] 130 [place] [address] Susannah Palomares, CHEMICAL PLANT TECHNICAL DIRECTOR 12/13/2024 Telephone [place] [address] [place] [address] Sadaf Simons, KAROL low bp 12/04/2024 Telephone [facility] [address] [place] [facility] [address] [place] [address] Annamarie Dolan, RN 45 day watchman follow up 11/15/2024 Patient Outreach [facility] 7 [facility] [address] [place] [address] Susannah Palomares, CHEMICAL PLANT TECHNICAL DIRECTOR from Last 3 Months Immunizations Immunization Administration [...] any time in the past 12 m [facility], were you homeless or living in a ch[facility] (including now)? No 10/21/2024 Sex and Gender [...] Description 02/16/2025 12:45 PM EDT Hospital Encounter [facility] 101 [place] [address] 07/30/2025 2:45 PM EST Office Visit [facility] 703 [facility] 250 [place] [address] Rosemary Cartagena MD 917 [facility] 130 [place], [place] [id number] Health Maintenance Due Date Last Done Comments Diabetes: Hemoglobin A1C 1940 Diabetes: Urine Protein Screening 1940 Lipid Panel 1940 Medicare Annual Wellness Visit (AWV) 1942 RSV High Risk: (Elderly (60+) or Population) (1 - 1-dose 75+ series) 2017 Diabetes: Retinopathy Screening 01/03/2024 01/02/2022 COVID-19 Vaccine ( season) 2024 Creatinine Level 10/21/2025 10/21/2024, 10/20/2024 Echocardiogram 10/21/2025 10/21/2024, 02/0 03/2025, 09/02/2023 Potassium Level 10/21/2025 10/21/2024, 10/20/2024 [...] this topic Medical Devices Implanted Type Area Seamer Elastic Band Device Identifier Shelf Expiration Date Model / Serial / Lot Icd ICD Chest Wall Device, Closure, 35mm Watchman Flx Pro Laac - [id number] Implanted:Qty : 1 on 10/20/2024 by Jay Pickering MD at [facility] Other Cardiac Implant N/A: Heart [email or web address] EUGENIA [id number] 05/31/2027 [id number] / / [id number] Procedures Procedure Name Priority Date/Time Associated Diagnosis [...] Narrative SYNGO - 10/21/2024 10:57 AM EST [facility], [address] [place] [address] and TRANSTHORACIC ECHOCARDIOGRAM REPORT Patient Name: YOANA IBRAHIM Yudith Physician: [id number] Benja Adan MD Study Date: 10/21/2024 Ordering Provider: [id number] MONSE LANDERS MRN/PID: [id number] Fellow: Nurse: Date of /Age: 4 1940 / 83 years Architectural Representative: Fletcher Navarro RDCS Gender assigned at M Additional Staff: : Height: 167.64 cm Admit Date: Weight: 83.46 kg Admission Status: Inpatient - Routine BSA / BMI: 1.93 m2 / 29.70 kg/m2 Blood Pressure: 117/37 mmHg Department Location: [place] [address] Study Type: TRANSTHORACIC ECHO (TTE) LIMITED Diagnosis/ICD: Encounter for follow up examination after completed treatment for conditions other than malignant neoplasm-Z09; Presence of other cardiac implants and grafts-Z95.818 Indication: s/p LAAO CPT Code: Echo Limited-75002 Patient History: Pertinent History: Chronic systolic left [...] 10/20/2024, no significant change. QUANTITATIVE DATA SUMMARY: [id number] Benja Adan MD Electronically signed on 10/21/2024 at 10:56:59 AM Final Procedure Note Benja Adan MD - 10/21/2024 [facility], [address] [place] [address] and TRANSTHORACIC ECHOCARDIOGRAM REPORT Patient Name: YOANA IBRAHIM Reading Physician: [id number] Adan MD Study Date: 10/21/2024 Ordering Provider: [id number] LANDERS MRN/PID: [id number] Fellow: Nurse: Date of /Age: 4 1940 / 83 years Architectural Representative: Rojas WANG Gender assigned at M Additional Staff: : Height: 167.64 cm Admit Date: Weight: 83.46 kg Admission Status: Inpatient- Routine BSA / BMI: 1.93 m2 / 29.70 kg/m2 Blood Pressure: 117/37 mmHg Department Location: [place] [address] Study Type: TRANSTHORACIC ECHO (TTE) LIMITED Diagnosis/ICD: Encounter for follow up examination after completedtreatment for conditions other than malignant neoplasm-Z09; Presence ofother cardiac implants and grafts-Z95.818 Indication: s/p LAAO CPT Code: Echo Limited-54638 Patient History: Pertinent History: Chronic systolic left [...] 10/20/2024, no significant change. QUANTITATIVE DATA SUMMARY: [id number] Benja Adan MD Electronically signed on 10/21/2024 at 10:56:59 AM Final us Monse Landers CHANNEL PROGRAM MANAGER-HUMANITIES AND LANGUAGES PROFESSOR CV ECHO PROCEDURES Fin al Result SYNGO * (ABNORMAL) Basic Metabolic Panel (10/21/2024 7:25 AM EST) Glucose 112(H) 74 - 99 mg/dL LAB CHEMISTRY METHOD 10/21/2024 10:23 AM EST [facility] Sodium 143 136 - 145 mmol/L LAB CHEMISTRY METHOD 10/21/2024 10:23 AM EST [facility] Potassium 4.1 3.5 - 5.3 mmol/L LAB CHEMISTRY METHOD 10/21/2024 10:23 AM EST [facility] Chloride 105 98 - 107 mmol/L LAB CHEMISTRY METHOD 10/21/2024 10:23 AM EST [facility] Bicarbonate 29 21 - 32 mmol/L LAB CHEMISTRY METHOD 10/21/2024 10:23 AM EST [facility] Anion Gap 13 10 - 20 mmol/L LAB CHEMISTRY METHOD 10/21/2024 10:23 AM EST [facility] Urea Nitrogen 35(H) 6 - 23 mg/dL LAB CHEMISTRY METHOD 10/21/2024 10:23 AM EST [facility] Creatinine 1.35(H) 0.50 - 1.30 mg/dL LAB CHEMISTRY METHOD 10/21/2024 10:23 AM EST [facility] eGFR 53(L) >60 mL/min/1. 73m*2 LAB CHEMISTRY METHOD 10/21/2024 10:23 AM EST [facility] Comment: Calculations of estimated GFR are performed using the 2020 CKD-EPI Study Refit equation without the race variable for the IDMS-Traceable creatinine methods. https://jasn.asnjournals.org/content///ASN.9229327198 Calcium 8.9 8.6 - 10.6 mg/dL LAB CHEMISTRY METHOD 10/21/2024 10:23 AM EST [facility] Blood Venous blood specimen / Unknown Venipuncture / Unknown 10/21/2024 7:25 AM EST 10/21/2024 9:51 AM EST Monse Landers CHANNEL PROGRAM MANAGER-HUMANITIES AND LANGUAGES PROFESSOR LAB BLOOD ORDERABLES F inal Result [facility] [id number] [phone] from Last 3 Months or Most Recently Relevant to Health Maintenance Insurance MEDICARE PART A AND B [employer] MEDICARE PART A AND B [employer] Advance Directives For more information, please contact: [phone] (Available ) * Full Code (Latest Code Status on File) Date Activated Date Inactivated Comments 10/20/2024 2:30 PM Question Answer Comments Plan of Care: Code Status Discussion Completed Decision Maker: Patient * Full Code Date Activated Date Inactivated Comments 10/20/2024 12:54 PM 10/20/2024 2:30 PM Question Answer Comments Plan of Care: Code Status Discussion Completed Decision Maker: Patient Care Teams Field Service Engineer Relationship Specialty Start Date End Date Maicol Anderson DO [address] [place] [address] PCP - General Family Medicine 08/30/23
--- OUTSIDE RECORDS SUMMARY | 2025-02-14 13:27 | XMS_ITS | Encounter Summary ---
Author Organization [facility] [place] [facility] Address [address] [place] [address] Phone Care Team Providers Care Air Saw Operator Name Role Phone Maicol Anderson Primary Care Prov ider Susannah Palomares PHOTO FINISHER Unavailable Encounter Details Date Type Department Care Team (Late st Contact Info) Description 09/10/2023 Scanned Document [facility] [address] [place] [place] [address] Scanning, Generic Provider Social History [...] Description 02/16/2025 12:45 PM EDT Hospital Encounter [address] [place] [address] 07/30/2025 2:45 PM EST Office Visit [facility] 703 [facility] 250 [place] [address] Rosemary Cartagena MD [address] [facility] 130 [place] [address] documented as of this encounter Procedures Procedure [...] documented as of this encounter Care Teams Air Saw Operator Relationship Specialty Start Date End Date Maicol Anderson DO [address] [place] [address] PCP - General Family Medicine 08/30/23 Susannah Palomares, KAROL Steam Boiler FiremanShirt Line Operator 10/23/24 01/18/25 documented as of this encounter
--- OUTSIDE RECORDS SUMMARY | 2025-02-14 13:27 | XMS_ITS ---
Author Organization [facility] Address [address] 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
--- OUTSIDE RECORDS SUMMARY | 2025-02-14 13:27 | XMS_ITS | Encounter Summary ---
Author Organization [facility] Address [address] [place] [address] Phone Care Team Providers Care Front End Driver Name Role Phone Maicol Anderson DO Primary Care Prov ider Encounter Details Date Type Department Care Team (Late st Contact Info) Description 02/14/2025 Telephone [facility] [address] [place] [address] Madhavi Engel, ROGER Social History Tobacco Use Types Packs/Day [...] any time in the past 12 m [facility], were you homeless or living in [...] encounter Miscellaneous Notes * Telephone Encounter - Madhavi Engel RN - 02/14/2025 1:17 PM EDT Recent labs completed at [facility] and scanned into media tab for review dated 02/10/25 * Telephone Encounter - Madhavi Engel RN - 02/14/2025 1:11 PM EDT Betty technical project lead from valve and structural heart LVM requesting call back concerning patient's abnormal lab results and asking what date Luisa would like his post- Watchman CT pushed back to? as patient should not receive contrast at this time. Attempted to contact Betty for lab specifics as there are no new results in chart. Will await call back documented in this encounter Plan of Treatment Upcoming Encounters Date Type Department Care Team (Late st Contact Info) Description 02/16/2025 12:45 PM EDT Hospital Encounter [facility] [address] [facility] [address] [place] [address] 07/30/2025 2:45 PM EST Office Visit [facility] 703 [facility] [address] [place] [address] Rosemary Cartagena MD [address] [facility] 130 [place] [address] documented as of this encounter Visit Diagnoses Not on filedocumented in this encounter Additional Health Concerns Assessment Noted Time A fall risk assessment has been complete d for the patient 02/02/2025 2:31 PM EDT documented as of this encounter Care Teams Front End Driver Relationship Specialty Start Date End Date Maicol Anderson DO [address] [place] [address] PCP - General Family Medicine 08/30/23 documented as of this encounter
--- OUTSIDE RECORDS SUMMARY | 2025-02-14 13:27 | XMS_ITS | Patient Health Record ---
Author Organization Tele[facility] Address [address] [place] [phone] Care Team Providers Care Marine Service Station Attendant Name Role Phone YonyCandida Primary Care Provider CLOTILDE Saleem Unavailable [phone] Reason For Referral No Information Medications Medication SIG (Take, Route, Frequency, Duration) Notes Start Date End Date Status Pantoprazole Sodium 40 MG 1 tablet Orall y twice a day for 30 day(s) 11/13/2013 Active Plan Of Treatment No Information Insurance Providers Payer Name Payer Address Payer Phone Subscriber Number Group Number Insured Name Patient Relationship to Insured Coverage Start Date Coverage End Date [place] [address] [place] [address] [phone] [id number] Jose Shelby Self - patient is the insured For Life [address] [place] [address] [phone] [id number] Jose Shelby Self - patient is the insured
--- OUTSIDE RECORDS SUMMARY | 2025-02-14 13:27 | XMS_ITS | Clinical Summary ---
Author Organization [facility] Address [address] [place] [address] Care Team Providers Care Toll Relief Operator Name Role Phone Maicol Anderson MD [...] daily as needed for Flatulence Active Pancrelipase, Cmq-Xeed-Eiqg, (CREON PO) Take 36,000 Units by mouth [...] from the original. DME: Pharmacy Counter phone: [phone] fax: [phone] This patient is being followed by [facility] for [facility] Ortho Bundle:Mona Briseno Dates of [...] this topic Medical Devices Implanted Type Area Life Insurance Sales Agent Device Identifier Shelf Expiration Date Model / Serial / Lot Cement Barium Radiopq Full 40gr Implanted:Qty: 1 on 12/02/2017 by Jay Vergara MD at [facility] Cement Right: Knee [place]: ORTHOPAEDICS-PMM 01/11/2020 [id number] / / [id number] Cement Barium Radiopq Full 40gr Implanted:Qty: 1 on 12/02/2017 by Jay Vergara MD at [facility] Cement Right: Knee [place]: ORTHOPAEDICS-PMM 01/11/2020 [id number] / / [id number] Impl Knee X3 Patella Implanted:Qty: 1 on 12/02/2017 by Jay Vergara MD at [facility] Knee Right: Knee [place]: ORTHOPAEDICS-PMM [id number] / / Impl Capped Knee Advanced Implanted:Qty: 1 on 12/02/2017 by Jay Vergara MD at [facility] Knee Right: Knee [place]: ORTHOPAEDICS-PM STRYKNEE-A / / Impl Knee Fem Comp Cmntd Sz 6 Implanted:Qty: 1 on 12/02/2017 by Jay Vergara MD at [facility] Knee Right: Knee [place]: ORTHOPAEDICS-PMM 09/30/2022 [id number] / / [id number] Impl Knee Patella Asym X3 [id number] Implanted:Qty: 1 on 12/02/2017 by Jay Vergara MD at [facility] Knee Right: Knee [place]: ORTHOPAEDICS-PMM 07/02/2021 [id number] / / [id number] Impl Knee Tib Baseplt Prime Sz 6 Implanted:Qty: 1 on 12/02/2017 by Jay Vergara MD at [facility] Knee Right: Knee [place]: ORTHOPAEDICS-PM 07/05/2022 [id number] / / [id number] Impl Knee Tib Insrt Postr X3 Sz6 11mm Implanted:Qty: 1 on 12/02/2017 by Jay Vergara MD at [facility] Knee Right: Knee [place]: ORTHOPAEDICS-[facility] 12/09/2021 [id number] / / [id number] Stimulator Neuro Pulse Implanted:Qty: 1 on 04/27/2017 by Petr Galvez MD at [facility] Spine:Stim ulator N/A: Back [employer] INC-PM 08/10/2018 [id number] / / Pacemaker Implanted:(Thiago [...] Staging NOT REPORTED 06/13/2019 4:26 AM EDT [employer] BLOOD SPECIMEN / Unknown 06/13/2019 4:26 AM EDT 06/13/2019 4:42 AM EDT Clement Zuleta MD CHEMISTRY ORDERABLES Final Resul t [employer] [address] [place] [address], [facility] [phone] from Last 3 Months or Most Recently Relevant to Health Maintenance Insurance [facility] MEDICARE SUPP MEDICARE FOR [employer] MEDICARE SUPP MEDICARE TRICARE FOR LIFE MEDICARE SUPP MEDICARE Member Subscriber Plan / Payer ( fective 2007-Present) Name:Jose Shelby Relation to Subscriber:Self Name:Jose Shelby Payer ID:Not on file Group ID:Not on file Type:Not on file Address: [address] FOR [facility] MEDICARE SUPP Advance Directives Documents on File Type Date Recorded Patient Manager Psychology Expl anation ACP-Advance Directive 10/15/2013 9:06 AM ACP-Power of Drywall Stripper 10/15/2013 9:06 AM * Full Code (Latest [...] 2:25 PM 05/28/2015 6:29 PM Care Teams Toll Relief Operator Relationship Specialty Start Date End Date Maicol Anderson MD [address] [place] [address] PCP - General Family Medicine 07/27/16
--- OUTSIDE RECORDS SUMMARY | 2025-02-14 13:28 | XMS_ITS | Encounter Summary ---
Author Organization [facility] Address [address] [place] [address] Care Team Providers Care Format Proofreader Name Role Phone Viky Rollins Unavailable Maicol Anderson MD Primary Care Provider [phone] Karen Woo DO Unavailable [phone] Encounter Details Date Type Department Care Team (Late st Contact Info) Description 02/08/2025 Telephone [facility] [address] [place] [address] Jhoan Sims MA Social History Tobacco [...] on filedocumented in this encounter Care Teams Format Proofreader Relationship Specialty Start Date End Date Maicol Anderson MD [address] [place] [address] PCP - General Family Medicine 08/24/24 Viky Rollins PA [address] [place] [address] Physician Repairer General Neurology 12/06/23 Karen Woo DO [address] [place] [address] Referring Physician Neurology 11/09/24 documented as of this encounter
--- OUTSIDE RECORDS SUMMARY | 2025-02-14 13:28 | XMS_ITS | Encounter Summary ---
Author Organization [facility] Address [address] [place] [address] Care Team Providers Care Cubing Machine Tender Name Role Phone Viky Rollins Unavailable Maicol Anderson MD Primary Care Provider [phone] Karen Woo DO Unavailable [phone] Reason for Referral * Consultation (Routine) - Closed Specialty Diagnoses / Procedures Referred By Contac t Referred To Contact Otolaryngology Diagnoses Dysphagia, unspecified type Procedures [place] OFFICE/OUTPATIENT NEW HIGH MDM 60 MINUTES Viky Rollins PA [address] [place] [address] Phone: tel: fax: Gulshan Olivier, DO [address] [place] [address] Phone: tel: fax: Referral ID Status Reason Start Date Expiration Date V isits Requested Visits Authorized [id number] Closed Specialty Services Required 01/25/2025 07/24/2025 1 1 * Imaging (Routine) - Closed Specialty Diagnoses / Procedures Referred By Contac t Referred To Contact Radiology Diagnoses Dysphagia, unspecified type Procedures [place] esophagus barium swallow Viky Rollins PA [address] [place] [address] Phone: tel: fax: [facility] [address] [place] [address] Referral ID Status Reason Start Date Expiration Date V isits Requested Visits Authorized [id number] Closed Perform Procedure 01/25/2025 07/24/2025 1 1 Encounter Details Date Type Department Care Team (Late st Contact Info) Description 01/24/2025 Telephone [facility] [address] [place] [address] James Garcia MA Social History Tobacco [...] Garcia MA - 01/24/2025 12:08 PM EDT [facility] calls stating that they sent over a requests for a Modified Barium Swallow test to be ordered due to findings of Dysphasia. Needs this faxed to [phone] She states that they also sent over a request for us to order a Laryngoscopy and states that the ptwould like this sent to [facility] to Dr. Gonzalez in [place]. documented in this encounter Plan of Treatment [...] Primary documented in this encounter Care Teams Cubing Machine Tender Relationship Specialty Start Date End Date Maicol Anderson MD [address] [place] [address] PCP - General Family Medicine 08/24/24 Viky Rollins PA [address] [facility] [address] [place] [address] Physician It Risk Analyst Neurology 12/06/23 Karen Woo DO [address] [address] Referring Physician Neurology 11/09/24 documented as of this encounter
--- OUTSIDE RECORDS SUMMARY | 2025-02-14 13:28 | XMS_ITS | Encounter Summary ---
Author Organization [facility] Address [address] [place] [address] Phone Care Team Providers Care Land Appraiser Name Role Phone Maicol Anderson Primary Care Prov ider Susannah Palomares EXTRUDER OPERATOR Unavailable [phone] Encounter Details Date Type Department Care Team (Late st Contact Info) Description 09/01/2024 Scanned Document [facility] [address] [place] [place] [address] Scanning, Generic Provider Social History [...] Description 02/16/2025 12:45 PM EDT Hospital Encounter [address] [place] [address] 07/30/2025 2:45 PM EST Office Visit [facility] 703 [facility] [address] [place] [address] Rosemary Cartagena MD [address] [facility] 130 [place] [address] documented as of this encounter Procedures Procedure [...] documented as of this encounter Care Teams Land Appraiser Relationship Specialty Start Date End Date Maicol Anderson DO [address] [place] [address] PCP - General Family Medicine 08/30/23 Susannah Palomraes, EXTRUDER OPERATOR Tree ClimberTextile Engineer 10/23/24 01/18/25 documented as of this encounter
--- OUTSIDE RECORDS SUMMARY | 2025-02-14 13:28 | XMS_ITS | Encounter Summary ---
Author Organization [facility] Address [address] [place] [address] Phone Care Team Providers Care Book Solicitor Name Role Phone Maicol Anderson Primary Care Prov ider Encounter Details Date Type Department Care Team (Late st Contact Info) Description 02/06/2025 Telephone [place] [id number] [address] Heaven Shah LPN Social History [...] any time in the past 12 m [facility], were you homeless or living in a penitentiary (including now)? No 10/21/2024 Sex and Gender [...] 02/16/2025 12:45 PM EDT Hospital Encounter [facility] [address] [facility] [address] [place] [address] 07/30/2025 2:45 PM EST Office Visit [facility] [address] [facility] [address] [place] [address] Rosemary Cartagena MD [address] [facility] [address] [place] [address] documented as of this encounter Visit Diagnoses Diagnosis Ischemic cardiomyopathy Other specified forms of chronic ischemic heart disease documented in this encounter Additional Health Concerns Assessment Noted Time A fall risk assessment has been complete d for the patient 02/02/2025 2:31 PM EDT documented as of this encounter Care Teams Book Solicitor Relationship Specialty Start Date End Date Maicol Anderson DO [address] [place] [address] PCP - General Family Medicine 08/30/23 documented as of this encounter
--- OUTSIDE RECORDS SUMMARY | 2025-02-14 13:28 | XMS_ITS | Clinical Summary ---
Author Organization [facility] Healthcare Address [address] [place] [address] Care Team Providers Care Car Seat Upholsterer Name Role Phone Viky Rollins Unavailable Maicol Anderson MD Primary Care Provider [phone] Karen Woo DO Unavailable [phone] Allergies Active Allergy Reactions Criticality Noted [...] mouth in the morning. 3 Active pancrelipase, Sol-Jwvg-Ffar, (Creon) 96875-[address] units capsule TAKE 3 CAPSULES BY MOUTH [...] diabetic and was also exposed to [place] per his 's report. He experienced worsening bradykinesia with Sinemet lowering. He presented to [facility] 09/02/21 for increase [...] Patient with history of stroke and [place] exposure contributing to PTSD. 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 fluctuating manifestations (CMS/HCC) (Primary Dx); Dysphagia, unspecified type; Cerebrovascular accident (CVA), unspecified mechanism (CMS/HCC); HERBIE (obstructive sleep apnea); Radiculopathy, lumbosacral region; Memory loss; Periodic limb movement disorder 01/31/2025 WeedWallheet [facility] [address] [phone] Viky Rollins PA 01/24/2025 Telephone [facility] [address] [place] [phone] James Garcia MA 01/09/2025 Telephone [facility] [address] [place] [phone] James Garcia MA 12/04/2024 2:20 PM EDT Office Visit [facility] [address] [address] Viky Rollins PA Periodic limb movement disorder (Primary Dx); Parkinson's disease without dyskinesia or fluctuating manifestations (CMS/HCC); Cerebrovascular accident (CVA), unspecified mechanism (CMS/HCC); Chronic bilateral low back pain with bilateral sciatica; Memory loss; HERBIE (obstructive sleep apnea) 12/04/2024 Dragon Armyo [employer] Automated Systemsheet [facility] [address] [place] [address] Viky Rollins PA 11/30/2024 Telephone [facility] [address] [place] [address] James Garcia MA from Last 3 Months [...] , 08/09/2023, Additional history exists Insurance MEDICARE [facility] Care Teams Car Seat Upholsterer Relationship Specialty Start Date End Date Maicol Anderson MD [address] [place] [address] PCP - General Family Medicine 08/24/24 Viky Rollins PA [address] [place] [address] Physician Hydraulic Miner Blasting Neurology 12/06/23 Karen Woo DO [address] [place], [place] [phone] Referring Physician Neurology 11/09/24
--- OUTSIDE RECORDS SUMMARY | 2025-02-14 13:28 | XMS_ITS | Encounter Summary ---
Author Organization [facility] Address [address] [place] [address] Phone Care Team Providers Care Auto Care Center Manager Name Role Phone Maicol Anderson Primary Care Prov ider Susannah Palomares FINISH GRINDER Unavailable Encounter Details Date Type Department Care Team (Late st Contact Info) Description 10/13/2024 Scanned Document [facility] [address] [place] [place] [phone] Scanning, Generic Provider Social History Tobacco Use [...] Description 02/16/2025 12:45 PM EDT Hospital Encounter [address] [place] [address] 07/30/2025 2:45 PM EST Office Visit [facility] [address] [facility] [address] [place] [address] Rosemary Cartagena MD [address] [facility] 130 [place] [address] documented as of this encounter Procedures Procedure [...] documented as of this encounter Care Teams Auto Care Center Manager Relationship Specialty Start Date End Date Maicol Anderson DO [address] [place] [address] PCP - General Family Medicine 08/30/23 Susannah Palomares, KAROL Bearing MakerBleacher Pulp 10/23/24 01/18/25 documented as of this encounter
--- OUTSIDE RECORDS SUMMARY | 2025-02-14 13:28 | XMS_ITS | Encounter Summary ---
Author Organization [facility] Address [address] [place] [address] Phone Care Team Providers Care Podiatry Teacher Name Role Phone Maicol Anderson DO Primary [...] any time in the past 12 m [facility], were you homeless or living in [...] Description 02/16/2025 12:45 PM EDT Hospital Encounter [facility] [address] [facility] [address] [place] [address] 07/30/2025 2:45 PM EST Office Visit [facility] [address] [facility] [address] [place] [address] Rosemary Cartagena MD 917 [facility] [address] [place] [address] documented as of this encounter Visit Diagnoses Not on filedocumented in this encounter Additional Health Concerns Assessment Noted Time A fall risk assessment has been complete d for the patient 02/02/2025 2:31 PM EDT documented as of this encounter Care Teams Podiatry Teacher Relationship Specialty Start Date End Date Maicol Anderson DO [address] [place] [address] PCP - General Family Medicine 08/30/23 documented as of this encounter
--- OUTSIDE RECORDS SUMMARY | 2025-02-14 13:28 | XMS_ITS | Encounter Summary ---
Author Organization [facility] Address [address] [place] [address] Care Team Providers Care Decorative Greens Cutter Name Role Phone Maicol Anderson MD Primary Care Provider Encounter Details Date Type Department Care Team (Late st Contact Info) Description 10/23/2013 PAT Telephone [facility] Pre-Admit Testing [address] [place] [address] Basilia Johnson, ROGER Social History Tobacco Use [...] on filedocumented in this encounter Care Teams Decorative Greens Cutter Relationship Specialty Start Date End Date Maicol Anderson MD [address] [place] [address] PCP - General Family Medicine 07/27/16 documented as of this encounter
--- OUTSIDE RECORDS SUMMARY | 2025-02-14 13:28 | XMS_ITS | Clinical Summary ---
Author Organization [facility] Address [address] [place], [place] [address] Care Team Providers Care Manager Local Name Role Phone Unavailable Primary Care Provider [...] stone Neck pain Pacemaker Pneumonia Stroke (cerebrum) IL (myocardial infarction) Overview (02/20/2016): x2 Former smoker [...] (Season Ended) 2025 07/14/20 11 Insurance MEDICARE [employer]
--- OUTSIDE RECORDS SUMMARY | 2025-02-14 13:28 | XMS_ITS | Encounter Summary ---
Author Organization [facility] Address [address] [facility] [place] [address] Care Team Providers Care .Net Architect Name Role Phone Viky Rollins Unavailable Maicol Anderson MD Primary Care Provider [phone] Karen Woo DO Unavailable [phone] Encounter Details Date Type Department Care Team (Late st Contact Info) Description 01/31/2025 Bamboo flowsheet [facility] [address] [place] [phone] Viky Rollins PA [address] [place] [address] Social History Tobacco Use Types [...] on filedocumented in this encounter Care Teams .Net Architect Relationship Specialty Start Date End Date Maicol Anderson MD [address] [place] [address] PCP - General Family Medicine 08/24/24 Vkiy Rollins PA [address] [place] [address] Physician 7Th Grade Teacher Neurology 12/06/23 Karen Woo DO [address] [place] [address] Referring Physician Neurology 11/09/24 documented as of this encounter
--- OUTSIDE RECORDS SUMMARY | 2025-02-14 13:28 | XMS_ITS | Encounter Summary ---
Author Organization [facility] Address [address] [place], [place] [address] Care Team Providers Care Ese Teacher Name Role Phone Maicol Anderson DO Primary Care Provider [phone] Pcp, Alysha CASING SEWER Primary Care Provider Unavailabl e Source Comments In the event this information is protected by the Federal Confidentiality of Alcohol and Drug AbusePatient Records regulations: The Federal rules restrict any use of the information to criminally investigate or prosecute any alcohol or drug abuse patient.[facility] Encounter Details Date Type Department Care Team (Late st Contact Info) Description 02/19/2016 Abstract Neurosurgery [address] [place] [address] Dylan Morales Social History Tobacco Use Types [...] on filedocumented in this encounter Care Teams Ese Teacher Relationship Specialty Start Date End Date Maicol Anderson DO PCP - General Family Medicine 02/14/16 03/27/22 Pcp, No, MARISEL PCP - General 03/28/22 10/13/22 documented as of this encounter
--- NOTE | 2025-02-14 13:42 | XR_ITS ---
[address] [address] Patient Name: YOANA IBRAHIM MRN: [id number] date: 1940 Sex: M Assigned Patient Location: ER Current Patient Location: ER Accession/Order Number: [id number] Exam Date: 02/14/2025 15:33 Report Date: 02/14/2025 15:34 At the request of: DUKE CRUZ NP Procedure: XR chest 1V XR chest 1V 02/14/2025 2:13 PM SIGNS AND SYMPTOMS: ^sob, elevated bnp ^Y PROTOCOL: Frontal radiograph of the chest COMPARISON: None FINDINGS: The trachea is midline. Sternotomy wires overlie the mediastinum. There is a lead pacer device on the left. Atherosclerotic changes are present in the thoracic aorta. There is cardiomegaly with a small right-sided pleural effusion. The heart and mediastinal structures are within normal limits. The lung parenchyma is clear, otherwise. The bony thorax is intact. Degenerative changes are present in the shoulders. XR/XR chest 1V IMPRESSION: There is cardiomegaly with a small right-sided pleural effusion. The lung parenchyma is otherwise clear. Impression dictated by: Milan Dickerson M.D. 02/14/2025 3:34 PM Dictation Location: [place] [address] Electronically authenticated by: [id number] Y Date: 02/14/2025 15:34
--- NOTE | 2025-02-14 13:43 | ED.GENADUL1 ---
HPI HPI - General Adult General Chief complaint: Shortness of Breath/Dyspnea Stated complaint: CONJESTED HEART FAILURE KIDNEY Time Seen by Provider: 02/14/25 13:29 Source: family Mode of arrival: walk-in History of Present Illness HPI narrative: The patient is an 84-year-old male who with a significant history of HFrEF recent [facility] 10/2024 clinic who presents to the emergency department today for evaluation concerns for an elevated BNP. Patient endorses he had outpatient labs done by his radio mechanic apprentice yesterday and was advised to come to the ER due to an elevated BNP reported today. Patient is somewhat of a vague historian and states he has shortness of breath at baseline. He does endorse some orthopnea and feels this has been new over the past 2 weeks. 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 No fever/chills or nausea/vomiting. Patient has been compliant with his medical therapy for his CHF. No reported weight gain. Related Data Home Medications ?Medication ?Instructions ?Recorded ?Confirmed aspirin 81 mg capsule 81 mg PO DAILY 02/14/25 02/14/25 buspirone 5 mg tablet 5 mg PO BID 02/14/25 02/14/25 carbidopa 10 mg-levodopa 100 mg 1 tab PO TID 02/14/25 02/14/25 tablet cholecalciferol (vitamin D3) 25 75 mcg PO DAILY 02/14/25 02/14/25 mcg (1,000 unit) capsule clopidogrel 75 mg tablet 75 mg PO DAILY 02/14/25 02/14/25 diazepam 2 mg tablet 2 mg PO HS 02/14/25 02/14/25 digoxin 125 mcg (0.125 mg) tablet 125 mcg PO DAILY 02/14/25 02/14/25 famotidine 20 mg tablet 20 mg PO HS 02/14/25 02/14/25 ferrous sulfate 325 mg (65 mg 325 mg PO DAILY 02/14/25 02/14/25 iron) tablet fexofenadine 180 mg tablet 180 mg PO DAILY 02/14/25 02/14/25 furosemide 20 mg tablet 20 mg PO DAILY 02/14/25 02/14/25 insulin glargine 100 unit/mL (3 14 unit subcut DAILY 02/14/25 02/14/25 mL) subcutaneous pen gdjoce-nskszcay-yhlcqbl 3 cap PO TID 02/14/25 02/14/25 36,000-114,000-180,000 unit capsule,delay rel (Creon) loperamide 2 mg capsule 2 mg PO DAILY 02/14/25 02/14/25 magnesium oxide 420 mg tablet 420 mg PO DAILY 02/14/25 02/14/25 memantine 28 mg capsule 28 mg PO DAILY 02/14/25 02/14/25 sprinkle,extended release 24hr mirabegron 50 mg tablet,extended 50 mg PO Q24H 02/14/25 02/14/25 release 24 hr multivitamin (Daily Multi-Vitamin 1 tab PO DAILY 02/14/25 02/14/25 tablet) nitroglycerin 0.4 mg sublingual 0.4 mg sublingual Q5M PRN chest 02/14/25 02/14/25 tablet pain paroxetine HCl 20 mg tablet 20 mg PO DAILY 02/14/25 02/14/25 potassium chloride 10 mEq 10 meq PO DAILY 02/14/25 02/14/25 tablet,extended release rivastigmine 13.3 mg/24 hour 1 patch transdermal DAILY 02/14/25 02/14/25 transdermal patch rosuvastatin 5 mg tablet 5 mg PO DAILY 02/14/25 02/14/25 sacubitril 24 mg-valsartan 26 mg 1 tab PO BID 02/14/25 02/14/25 tablet (Entresto) tamsulosin 0.4 mg capsule (Flomax) 0.4 mg PO DAILY 02/14/25 02/14/25 trazodone 50 mg tablet 25 mg PO HS 02/14/25 02/14/25 Allergies Allergy/AdvReac Type Severity Reaction Status Date / Time meperidine (From Demerol) Allergy Hallucinati Verified 02/14/25 13:37 ng Review of Systems ROS Status of ROS 10 or more systems reviewed and unremarkable except as noted in history and below PFSH PFSH Social History Little interest or pleasure in doing things: not at all Feeling down, depressed, or hopeless: not at all Exam Narrative Exam Narrative: Constituational: Awake/ alert, no apparent distress, well hydrated HENMT: normocephalic, external ears normal, moist oral mucous membranes and oropharynx normal Eyes: EOMI and conjunctivae normal Neck: No JVD Chest: inspection of chest normal Respiratory: Normal respiratory effort, clear to auscultation bilaterally Cardio: regular rate and regular rhythm GI: soft to palpation and non-tender Back: nontender MSK: No edema, +NVI Skin: no rashes or petechiae Neuro: no focal deficits Psych: mental status grossly normal Constitutional Vital Signs, click to edit/add: Last Vital Signs Temp 97.6 F 02/14/25 13:38 Pulse 60 02/14/25 15:20 Resp 15 02/14/25 15:20 BP 117/52 02/14/25 15:15 Pulse Ox 95 02/14/25 15:20 O2 Del Method Room Air 02/14/25 13:38 Course Vital Signs Vital signs: Vital Signs Pulse Rate 63 02/14/25 13:35 Respiratory Rate 17 02/14/25 13:35 Temperature 97.6 F 02/14/25 13:38 Pulse Rate 60 02/14/25 15:20 Respiratory Rate 15 02/14/25 15:20 Blood Pressure 117/52 02/14/25 15:15 Pulse Oximetry 95 02/14/25 15:20 Oxygen Delivery Method Room Air 02/14/25 13:38 Medical Decision Making [facility] Narrative Medical decision making narrative: Is a nontoxic-appearing 84-year-old male who presented to the emergency department today for evaluation concerns for abnormal labs related to an elevated BNP. Initial examination vital signs overall stable. Patient does appear overall euvolemic on exam and did not be exhibiting any ischemic symptoms. EKG without acute changes and troponin is negative x 1. BNP is elevated at 2890 however this is down trended from prior BNP on 02/10 of 3425. Stable and showed no significant leukocytosis, stable anemia with Hgb 10.3, mild thrombocytopenia with PLT 134. Electrolytes including hepatic function stable. The elevated renal function with creatinine 1.4 however this is down trended from creatinine 1.6 on 02/10. Chest x-ray without pulmonary vascular congestion however does show small right pleural effusion. Patient did receive one-time dose of IV Lasix 20 mg. Clinical impression CHF, not acute exacerbation. Discussed these findings with the patient and his family who was at the bedside including recommendations for supportive care. Patient counseled for 5 minutes and following a heart healthy diet and daily weights. Advised on close follow-up with patient's primary radio mechanic apprentice at a [facility] for reevaluation. Discussed signs and symptoms of any worsening condition and when to consider reevaluation by the emergency department. Patient and his family verbalized an understanding of this and are agreeable with the plan to be discharged home. Medical Records Medical records reviewed: Yes I reviewed the patient's medical records Lab Data Lab results reviewed: Yes I reviewed the patient's lab results Labs: Lab Results 02/14/25 Range/Units 13:55 WBC 6.0 (4.0-11.0) 10^3/uL RBC 3.11 L (4.70-6.10) 10^6/uL Hgb 10.3 L (14.0-18.0) g/dL Hct 30.7 L (42.0-54.0) % MCV 98.7 H (80.0-94.0) fL MCH 33.1 (25.9-34.0) pg MCHC 33.6 (29.9-35.2) g/dL RDW 13.4 (11.0-15.0) % Plt Count 134 L (150-450) 10^3/uL MPV 10.3 (9.5-13.5) fL Neut % (Auto) 70.0 (43.0-75.0) % Lymph % (Auto) 16.3 L (20.5-60.0) % [place] % (Auto) 10.9 (1.7-12.0) % Eos % (Auto) 1.8 (0.9-7.0) % Baso % (Auto) 0.7 (0.2-2.0) % Neut # (Auto) 4.2 (1.4-6.5) 10^3/uL Lymph # (Auto) 1.0 L (1.2-3.8) 10^3/uL [place] # (Auto) 0.7 (0.3-0.8) 10^3/uL Eos # (Auto) 0.1 (0.0-0.7) 10^3/uL Baso # (Auto) 0.0 (0.0-0.1) 10^3/uL Abs Immat Gran (auto) 0.02 (0.00-0.03) 10^3/uL Imm/Tot Granulo (auto) 0.3 (0.0-0.5) % Sodium 145 (136-145) mmol/L Potassium 4.4 (3.5-5.1) mmol/L Chloride 107 (98-107) mmol/L Carbon Dioxide 29.2 (21.0-32.0) mmol/L Anion Gap 13.2 BUN 32.0 H (7.0-18.0) mg/dL Creatinine 1.43 H (0.70-1.30) mg/dL Est GFR ( Amer) 57 L (>=60 mL/min/1.73m^2) Est GFR (Non-Af Amer) 47 L (>=60 mL/min/1.73m^2) BUN/Creatinine Ratio 22.4 Glucose 151 H (74-106) mg/dL Calcium 8.7 (8.5-10.1) mg/dL Total Bilirubin 0.7 (0.2-1.0) mg/dL AST 15 (15-37) U/L ALT 19 (16-63) U/L Alkaline Phosphatase 73 (46-116) U/L Troponin I High Sens 17.1 (4.0-76.1) pg/mL NT-Pro-B Natriuret Pep 2890.0 H* (<=1800.0) pg/mL Total Protein 6.6 (6.4-8.2) g/dL Albumin 3.3 L (3.4-5.0) g/dL Globulin 3.3 g/dL Albumin/Globulin Ratio 1.0 ECG Data Attestation: I personally reviewed and interpreted this ECG as follows: (HR62, paced rhythm, no acute/ischemic changes) Discharge Plan Discharge Chief Complaint: Shortness of Breath/Dyspnea Clinical Impression: Congestive heart failure Patient Disposition: Home, Self-Care Prescriptions / Home Meds: No Action buspirone 5 mg tablet 5 mg PO BID carbidopa-levodopa 10-100 mg tablet 1 tab PO TID clopidogrel 75 mg tablet 75 mg PO DAILY diazepam 2 mg tablet 2 mg PO HS digoxin 125 mcg (0.125 mg) tablet 125 mcg PO DAILY famotidine 20 mg tablet 20 mg PO HS fexofenadine 180 mg tablet 180 mg PO DAILY furosemide 20 mg tablet 20 mg PO DAILY Creon 36,000-114,000- 180,000 unit capsule,delayed release(DR/EC) 3 cap PO TID Patient Comments: 3 caps TID daily with meals and 2 caps BID with snacks loperamide 2 mg capsule 2 mg PO DAILY memantine 28 mg capsule,sprinkle,ER 24hr 28 mg PO DAILY mirabegron 50 mg tablet extended release 24 hr 50 mg PO Q24H nitroglycerin 0.4 mg tablet, sublingual 0.4 mg sublingual Q5M PRN (Reason: chest pain) paroxetine HCl 20 mg tablet 20 mg PO DAILY potassium chloride 10 mEq tablet extended release 10 meq PO DAILY rivastigmine 13.3 mg/24 hour patch 24 hour 1 patch transdermal DAILY rosuvastatin 5 mg tablet 5 mg PO DAILY Entresto 24-26 mg tablet 1 tab PO BID Rx Instructions: hold if BP less than 100 trazodone 50 mg tablet 25 mg PO HS aspirin 81 mg capsule 81 mg PO DAILY cholecalciferol (vitamin D3) 25 mcg (1,000 unit) capsule 75 mcg PO DAILY ferrous sulfate 325 mg (65 mg iron) tablet 325 mg PO DAILY multivitamin [Daily Multi-Vitamin] Tablet 1 tab PO DAILY insulin glargine 100 unit/mL (3 mL) insulin pen 14 unit subcut DAILY magnesium oxide 420 mg tablet 420 mg PO DAILY tamsulosin [Flomax] 0.4 mg capsule 0.4 mg PO DAILY Print Language: Thai Instructions: Heart Failure (ED), Heart Healthy Diet (DC) Additional Instructions: Your current medications as prescribed. Recommend continuing to follow a heart healthy/low-salt diet. Weigh yourself every morning when you wake up and record these readings. Contact and follow-up with your radio mechanic apprentice if you gain more than 5 pounds in a week or more than 3 pounds of weight overnight. Follow up with your radio mechanic apprentice for reevaluation in the next week as discussed. May return to the ER with any new or worsening symptoms/concerns. Referrals: SHANIQUE SCHWAB [Primary Care Provider, Family Practice] - 1 week
--- NOTE | 2025-02-14 14:06 | ECG_ITS ---
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 Measurements Intervals [place] Rate: 62 P: -14867 TN: -55407 QRS: -65 QRSD: 188 T: 64 QT: 458 QTc: 464 Interpretive Statements 72470 Electronic ventricular pacemaker with underlying atrial fibrillation and competing junctional complexes 9120 atypical ECG Compared to ECG 02/06/2018 11:49:23 Junctional complexes are now present Electronically Signed On 02-14-2025 19:21:24 EDT by TATYANA MENDOZA M.D.
[2025-02-14 14:27] LABS: Basophils Percent Auto 0.7 % (0.2-2.0); Eosinophils Absolute Auto 0.1 10^3/uL (0.0-0.7); Eosinophils Percent Auto 1.8 % (0.9-7.0); Hematocrit 30.7 % (42.0-54.0); Hemoglobin 10.3 g/dL (14.0-18.0); Immature Granulocytes Abs Auto 0.02 10^3/uL (0.00-0.03); Immature Granulocytes Pct Auto 0.3 % (0.0-0.5); Lymphocytes Percent Auto 16.3 % (20.5-60.0); Mean Corpuscular HGB Conc 33.6 g/dL (29.9-35.2); Mean Corpuscular Hemoglobin 33.1 pg (25.9-34.0); Mean Corpuscular Volume 98.7 fL (80.0-94.0); Mean Platelet Volume 10.3 fL (9.5-13.5); Monocytes Absolute Auto 0.7 10^3/uL (0.3-0.8); Monocytes Percent Auto 10.9 % (1.7-12.0); Neutrophils Absolute Auto 4.2 10^3/uL (1.4-6.5); Platelet Count 134 10^3/uL (150-450); Red Blood Count 3.11 10^6/uL (4.70-6.10); Red Cell Distribution Width 13.4 % (11.0-15.0)
[2025-02-14 14:56] LABS: Alanine Aminotransferase 19 U/L (16-63); Albumin Level 3.3 g/dL (3.4-5.0); Alkaline Phosphatase 73 U/L (46-116); Anion Gap 13.2; Aspartate Amino Transferase 15 U/L (15-37); BUN Creatinine Ratio 22.4; Bilirubin Total 0.7 mg/dL (0.2-1.0); Calcium 8.7 mg/dL (8.5-10.1); Carbon Dioxide 29.2 mmol/L (21.0-32.0); Chloride 107 mmol/L (98-107); Estimated GFR (African America 57 (>=60 mL/min/1.73m^2); Estimated GFR (Non-African Ame 47 (>=60 mL/min/1.73m^2); Globulin 3.3 g/dL; Glucose 151 mg/dL (74-106); Potassium 4.4 mmol/L (3.5-5.1); Sodium 145 mmol/L (136-145); Total Protein 6.6 g/dL (6.4-8.2); Troponin I High Sensitivity 17.1 pg/mL (4.0-76.1)
== END 2025-02-14 16:52 | disposition home or self-care (01) ==
PROVIDERS: Nurse Practitioner; Emergency Provider Emergency Medicine; PCP Family Medicine
DX: I50.20 Unspecified systolic (congestive) heart failure (principal); Z95.818 Presence of other cardiac implants and grafts
CPT/HCPCS: 36415; 71045; 80053; 83880; 84484; 85025; 93005; 99285

== ENCOUNTER 2025-05-06 16:44 | Emergency (ER) | payer MEDICARE, OTHER, SELFPAY ==
[2025-05-06 16:59] VITALS: BP 153/72; PULSE 67; TEMP 36.6; O2SAT 97; BMI 29.1
--- OUTSIDE RECORDS SUMMARY | 2025-05-06 17:01 | XMS_ITS | CCD ---
Author Organization [facility] Care Team Providers Care Package Maker Name Role Phone FABIANO WILL Unavailable Unavailable BRISTOL, SHANIQUE E Unavailable Unavailable Gordo, [place] E Primary Care Provider RAÚL VALE Referring Unavailable JUSTIN, SHANIQUE E Primary Care Unavailable RAÚL VALE Admitting Unavailable RAÚL VALE Attending Unavailable Ryder Pollack Unavailable Glenda Guillen Unavailable Abdon Jackman Unavailable Osvaldo Maciel Unavailable Alexei Van Unavailable JUSTIN, DR BAY Primary Care Unavailable VIKY ROLLINS Attending Unavailable VIKY ROLLINS Admitting Unavailable ALEXEI VAN Consulting Unavailable MISSonu, DR BETTS Attending Unavailable MISC, DR BETTS Admitting Unavailable JUSTIN, DR BAY Primary Care Unavailable ALEXEI VAN Attending Unavailable ALEXEI VAN Consulting Unavailable ALEXEI VAN Admitting Unavailable JUSTIN, DR BAY Primary Care Unavailable ALBIN BABIN Attending Unavailable ALBIN BABIN Admitting Unavailable JUSTIN, DR BAY Primary Care Unavailable BRISTOL, DR BAY Primary Care Unavailable VIKY ROLLINS Attending Unavailable VIKY ROLLINS Admitting Unavailable ALBIN BABIN Admitting Unavailable JUSTIN, DR BAY Primary Care Unavailable ALBIN BABIN Attending Unavailable DO Shanique Anderson Primary Care Provider DO Shanique Anderson Attending Provider [phone] Shanique Anderson DO Primary Care Prov ider DO Shanique Anderson Primary Care Provider [phone] MD Rosemary Cartagena Attending Provider [phone] DO Shanique Anderson Primary Care Provider [phone] MD Rosemary Cartagena Attending Provider [phone] ROBERT Rollins Attending Provider [phone] MARISEL [facility] Other Provider Gordo, DO [place] Primary Care Provider [phone] MD Rosemary Cartagena Attending Provider JUSTIN SHANIQUE Primary Care Physician ROSEMARY CARTAGENA Referring Unavailable [facility] Primary Care Unav ailable Gordo, [facility] Primary Care Provider MD Rosemary Cartagena Attending Provider Unallocated , Aydins Provider Primary Care Provi diomedes Viky Sage Unavailable ROBERT Rollins Attending Provider Shanique Anderson MD Primary Care Provider [place]ordo , [place] [facility] Prov ider Susannah Palomares LPN Unavailable Unava ilable Amna Karen Unavailable [facility] [place] Primary Care Provider Tex Carranza MD Attending Provider VIKY ROLLINS Attending Unavailable AYO, VIKY Attending Unavailable LOWMaciej, VIKY Attending Unavailable LOWMaciej, VIKY Attending Unavailable LOWMaciej, VIKY Attending Unavailable LOWMaciej, VIKY Attending Unavailable UNALLOCATED, NOMS PROVIDER Referring Unava ilable FABIANO PICKERING Attending Unavailable [facility] Primary Care Unav ailable ROSEMARY CARTAGENA Referring Unavailable FABIANO PICKERING Admitting Unavailable FABIANO PICKERING Attending Unavailable [facility] Care Unav ailable FABIANO PICKERING Referring Unavailable [facility] Primary Care Unav ailable MONSE LANDERS Referring Unavailable [facility] Primary Care Unav ailable LANDERS, MONSE R [...] SHANIQUE SHRADDHA TERESO Primary Care Unav ailable Gordo DO, [place] Primary Care Provider [phone] Rehan SANCHEZ, Alexei Dudley Attending Provider [phone] Rosemary Cartagena MD Other Provider Tex Carranza MD Attending Provider Tex Carranza Admitting Unavailable Minal Carranzafiaditya Attending Unavailable Gordo, Shanique Primary Care Unavailable Cartagena, Rosemary Attending Unavailable Gordo, [place] Primary Care Unavailable Cartagena, Rosemary Admitting Unavailable Lowe, Viky Admitting Unavailable Lowe Viky Attending Unavailable Gordo, Shanique Primary Care Unavailable Cartagena, Rosemary Attending Unavailable Gordo, [place] Primary Care Unavailable Cartagena, Rosemary Admitting Unavailable Cartagena, Rosemary Attending Unavailable Gordo, Shanique Primary Care Unavailable Cartagena, Rosemary Admitting Unavailable Cartagena, Rosemary Admitting Unavailable Gordo, Shanique Primary Care Unavailable Cartagena, Rosemary Attending Unavailable Melvin PAINTINGory P Attending Unavailable Melvin PAINTINGory P Attending Unavailable Orzech, Anabel X Attending Unavailable Orzech, Anabel X Attending Unavailable COOK, Petr P Attending Unavailable COOK, Petr P Referring Unavailable CINTHYA, Petr P Admitting Unavailable Melvin PAINTINGory P Attending Unavailable Orzech, Anabel X Attending Unavailable Unavailable Unavailable Unavailable Allergies Allergy Classification Reported Allergen(s) Allergy Type Date of Onset Reaction(s) Facility canagliflozin (2 sources) canagliflozin Drug Allergy 04-01-20 Unknown Reaction [facility] exenatide (2 sources) exenatide Drug Allergy 07-20-20 23 Unknown Reaction [facility] fexofenadine (2 sources) fexofenadine Drug Allergy 04-01-20 23 [facility] liraglutide (2 sources) liraglutide Drug Allergy 04-01-20 23 Unknown Reaction [facility] NSAIDs (2 sources) Ibuprofen Drug Allergy 04-01-20 23 Unknown Reaction [facility] Opioid Agonists (6 sources) Codeine Drug Allergy 08-28-20 21 Hallucinating, Sweat [facility] rOPINIRole (2 sources) rOPINIRole Drug Allergy 04-01-20 23 Unknown Reaction [facility] SITagliptin (2 sources) SITagliptin Drug Allergy 04-01-20 23 Unknown Reaction [facility] (1 source) Acetaminophen / oxyCODONE Drug Allergy 07-27-20 16 Other (See Comments) [place] (20 sources) Codeine; Translations: [codeine] Drug Allergy 12-17-19 10 Other (See Comments), Unknown, Unknown (qualifier value) [place] (20 sources) exenatide; Translations: [exenatide] Drug Allergy 04-08-20 16 Unknown, Unknown (qualifier value) [place] (11 sources) fexofenadine; Translations: [fexofenadine] Drug Allergy 02-04-20 12 Itching, Unknown, Unknown (qualifier value) [place] (1 source) fexofenadine Drug Allergy 07-27-20 16 Itching [place] (20 sources) Ibuprofen Drug Allergy 04-04-20 18 Unknown Reaction, Unknown [place] (20 sources) liraglutide; Translations: [liraglutide] Drug Allergy 12-03-19 17 Unknown, Unknown (qualifier value) [place] (8 sources) Meperidine; Translations: [Demerol] Drug Allergy 02-04-20 12 Swelling, Bilateral upper limb edema [place] (12 sources) SITagliptin Drug Allergy 05-06-20 15 Unknown Reaction [place] (1 source) Other Propensity to adverse reactions 05-06-20 15 Itching [place] (13 sources) fexofenadine; Translations: [fexofenadine] Drug Allergy 08-28-20 21 Hives [facility] (20 sources) Meperidine; Translations: [meperidine] Drug Allergy 08-28-20 21 Unknown [facility] (13 sources) Morphine; Translations: [morphine] Drug Allergy 08-28-20 21 Hallucinating [facility] (20 sources) canagliflozin; Translations: [CANAGLIFLOZIN] Drug Allergy 08-28-20 21 Unknown [facility] (20 sources) Codeine Drug Allergy Unknown [facility] Other (20 sources) fexofenadine; Translations: [Hermila] Drug Allergy 06-12-20 15 Unknown [facility] Repository (15 sources) Ibuprofen Drug Allergy Unknown [facility] Other (20 sources) rOPINIRole Drug Allergy Unknown [facility] Other (20 sources) SITagliptin Drug Allergy Unknown [facility] Other (1 source) Codeine Drug Allergy 06-12-20 15 [facility] Repository (2 sources) exenatide Drug Allergy [facility] Rep[facility] (3 sources) liraglutide; Translations: [Victoza] Drug Allergy [facility] Rep[facility] (1 source) SITagliptin Drug Allergy 08-24-20 15 [facility] Rep[facility] (12 sources) rOPINIRole; Translations: [ropinirole] Drug Allergy 08-28-20 21 Unknown Reaction [facility] (6 sources) canagliflozin; Translations: [canagliflozin] Drug Allergy Unknown (qualifier value) [facility] (12 sources) Fish Oils; Translations: [FISH OIL] Drug Allergy 04-24-20 24 [facility] Repository (17 sources) fexofenadine / Pseudoephedrine Drug Allergy 06-22-20 06 [facility] (17 sources) Meperidine Drug Allergy 08-22-20 10 [facility] (7 sources) empagliflozin; Translations: [EMPAGLIFLOZIN] Drug Allergy 10-20-19 25 Other [facility] (1 source) canagliflozin Drug Allergy 03-21-20 25 [facility] Repository (1 source) Codeine Drug Allergy 03-21-20 [facility] Repository (1 source) exenatide Drug Allergy 03-21-20 [facility] Repository (1 source) Ibuprofen Drug Allergy 03-21-20 [facility] Repository (1 source) liraglutide Drug Allergy 03-21-20 [facility] Repository (1 source) SITagliptin Drug Allergy 03-21-20 [facility] Repository (1 source) Byetta Prefilled Pen; Translations: [Byetta Prefilled Pen] Propensity to adverse reactions (disorder) [facility] Repository Medications Current Medications Medication Drug [...] th twice daily as needed for pain Start: 06-12-2019 take 650 mg by mouth [...] daily Not-Taking take 1 capsule by mo [facility] twice daily as needed Acetaminophen 500 MG [...] 12 hrs for 10 day(s) Jul, Active amylases 00402 unt / endopeptidases 9500 unt / lipase [...] (Stop Taking at Discharge) Start: 12-09-2018 End: 03-21-2025 take 1 tablet by mouth twice daily Apixaban (Eliquis) 5 mg Tablet Discontinued 5 MG PO Twice daily 60 30 September 11, 2021 1:00am March 21, 2025 11:26am take 2 tablets by [facility] once daily Eliquis 5 MG as directed Orally 2 tablets once daily Active aspirin 81 mg delayed release oral tablet (20 sources) Platelet Aggregation Inhibitor, Nonsteroidal Anti-inflammatory Drug Start: 10-22-2024 End: 10-22-2025 take 1 tablet by mouth once daily aspirin 81 mg Oral EC Tab 81 mg = 1 tab(s), Oral, Daily, Refills(s) 0 Start Date: 11/28/24 Status: Ordered Repeat number: 1 Start: 10-21-2024 take 81 mg by mouth [...] spray 12/20/2023 Active Biotin (1 source) take 10148 [IU] by mouth twice daily BIOTIN PO [...] Refill(s) 0 Start Date: 04/25/24 Status: Ordered Repeat number: 1 Start: 06-12-2019 take 1 tablet by daly th twice daily at mealtime 1 tablet, Oral, 2 TIMES DAILY WITH MEALS, First dose on 06/12/19 at 1700 Patient may take home supply. Start: 03-07-2019 take 1 tablet by mouth at [facility] Calcium Carbonate-Vitamin D3 Active 1 TAB Oral With lunch and supper March 07, 2019 6:55pm Start: 03-07-2019 End: 09-11-2021 take 2 tablets by mouth once daily Calcium Carbonate-Vitamin D3 (Oyster Shell Calcium-Vit D3) 500 mg-5 mcg (200 unit) Tablet (11 sources) Start: 09-11-2021 take 2 tablets by mouth once daily Calcium Carbonate-Vitamin D3 (Oyster Shell Calcium-Vit D3) 500 mg-5 mcg (200 unit) Tablet Active 2 TAB PO Daily 60 September 11, 2021 12:00am Start: 09-11-2021 take 2 tablets by mo [facility] once daily Calcium Carbonate-Vitamin D3 (Oyster Shell [...] Refill(s) 0 Start Date: 04/25/24 Status: Ordered Repeat number: 1 Start: 01-25-2024 End: 02-07-2025 take 1 tablet [...] 02/07/2025 Active Start: 09-02-2021 End: 09-11-2021 take 0.5 tablet by mouth twice daily take 1 tablet by daly th three [...] the eye(s) once daily in the morning Start: 03-07-2019 take 1 drop(s) into the [...] Refills(s) 0 Start Date: 04/25/24 Status: Ordered Repeat number: 1 Start: 04-25-2024 cholecalcifero l 25 mcg, Chewed, Daily, Refills(s) 0 Start Date: 04/25/24 Status: Ordered Start: 12-23-2023 cholecalcifero l (SM Vitamin D3) 25 MCG (1000 UT) tablet Take 3,000 Units by mouth in the evening. Take with meals 12/23/2023 Active Start: 09-11-2021 take 1 tablet by daly once daily Start: 03-07-2019 take 3000 [IU] by mo [facility] once daily Cholecalciferol (Vitamin D3) Active 3000 UNIT Oral Daily with supper March 07, 2019 6:55pm Start: 03-07-2019 End: 09-11-2021 take 3 tablets by mouth once daily Cholecalciferol (Vitamin D3) (Vitamin D3) 1,000 unit Tablet Discontinued 3000 UNIT PO Daily with supper March 07, 2019 12:00am September 11, 2021 10:18am take 3 tablets by [facility] once daily cholecalciferol (Vitamin D-3) 25 MCG (1000 UT) tablet Take 3 tablets (75 mcg) by mouth once daily. [facility] daily cholecalciferol (Vitamin D-3) 5,000 Units tablet Take 1 tablet (5,000 Units) by mouth once daily. Active take 3 tablets by [facility] every twenty-four hours Vitamin D3 25 MCG (1000 UT) 3 tablet Orally Once a day Active ciprofloxacin 500 mg oral tablet (3 sources) Quinolone Antimicrobial Start: 05-01-2024 Cipro 500 mg Tab See Instructions, Take 1 tab day prior to procedure and 1 tab day of procdure - afterwards, # 2 tab(s), Refills(s) 0, Pharmacy: [facility]/pharmacy #[id number], 167, cm, 04/25/24 13:59:00 EDT, Height/Length Dosing, 72, kg, 04/25/24 13:59:00 EDT, Weight Dosing Start Date: 05/01/24 Status: Ordered clopidogrel 75 mg oral tablet (20 sources) [id number] Platelet Inhibitor Start: 05-07-2015 End: 10-27-2025 take 1 tablet by mouth once daily clopidogrel 75 mg Tab 75 mg = 1 tab(s), Oral, Daily, Refills(s) 0 Start Date: 04/25/24 Status: Ordered Repeat number: 1 Creon 17110 UNIT (20 sources) Creon 89492 UNIT 3 WITH MEALS 2 WITH SNACK Orally three times daily for 90 day(s) Active Creon 87740 UNIT 2 WITH MEALS 1 WITH SNACK Orally three times daily for 30 days Active cyproheptadine hydrochloride 4 mg oral tablet (20 sources) Start: 06-12-2019 take 2 mg by [...] Benzodiazepine Start: 03-04-2023 End: 05-08-2025 take 1 mg by mouth at bedtime diazepam 2 mg Tab 1 mg = 0.5 tab(s), Oral, Bedtime, Refills(s) 0 Start Date: 04/25/24 Status: Ordered Repeat number: 1 Start: 03-04-2023 take 1 mg by mouth e very six hours as needed diazePAM (Valium) 2 mg tablet Take 0.5 tablets (1 mg) by mouth every 6 hours if needed. 03/04/2023 Active Start: 09-11-2021 End: 09-11-2024 take 1 tablet by mouth once daily at bedtime Start: 03-07-2019 take 2 mg by mouth [...] Refills(s) 0 Start Date: 04/25/24 Status: Ordered Quantity: 180.0 Unit: tab(s) Repeat number: 1 Start: 03-07-2019 take 40 mg by mouth twice mercedes y Famotidine Active 40 MG Oral Twice daily March 07, 2019 6:55pm Start: 03-07-2019 End: 08-28-2021 take 2 tablets by mouth twice daily Famotidine (Pepcid) 20 mg Tablet Discontinued 40 MG PO Twice daily March 07, 2019 12:00am August 28, 2021 2:20pm Start: 01-06-2018 take 1 tablet by daly th once daily Start: 01-06-2018 take 1 tablet by daly [...] Refills(s) 0 Start Date: 04/25/24 Status: Ordered Repeat number: 1 Start: 09-11-2021 take 1 tablet by daly th once daily Start: 03-07-2019 End: 09-11-2021 take 1 tablet [...] mouth 2 times daily 0 Active fexofenadine (6 sources) Histamine-1 Receptor Antagonist Start: 03-21-2025 take 1 tablet by mouth once mercedes y fexofenadine (Hermila) 180 mg tablet Take 1 tablet (180 mg) by mouth once daily. Active furosemide 20 mg oral tablet (20 sources) Loop Diuretic Start: 12-22-2023 End: 10-27-2025 take 1 tablet by mouth once daily furosemide 20 mg Tab 20 mg = 1 tab(s), Oral, Daily, tab(s), Refills(s) 0 Start Date: 04/25/24 Status: Ordered Repeat number: 1 Start: 09-11-2021 Start: 09-04-2021 End: 09-11-2021 take 1 tablet by mouth every other day Furosemide (Lasix) 20 mg Tablet Discontinued 20 MG PO Q2D 1 September 04, 2021 2:10pm September 11, 2021 [...] 100 mL/hr, PRN, Low blood sugar, Starting 06/12/19 at 1457 Start infusion following administration of dextrose 50% or glucagon. icosapent ethyl (20 sources) Start: 04-25-2024 take 4 capsules by m outh twice daily Icosapent Ethyl 1 g oral capsule 4 gm = 4 cap(s), Oral, BID, Refills(s) 0 Start Date: 04/25/24 Status: Ordered Repeat number: 1 Start: 04-25-2024 take 4 capsules by m [...] with meals Orally Twice a day Active 3 ml insulin glargine 100 un t/ml pen injector (20 sources) Insulin Analog Start: 03-21-2025 Start: 04-25-2024 insulin glargi ne 100 unit(s), Refills(s) 0 Start Date: 04/25/24 Status: Ordered Repeat number: 1 Start: 04-25-2024 insulin glargi ne 100 unit(s), Refills(s) 0 Start Date: 04/25/24 Status: Ordered Start: 04-03-2024 End: 03-21-2025 Insulin Glargine (Lantus Ara ostar U-100 Insulin) 100 unit/mL (3 mL) insulin pen Discontinued 16 UNIT SUBCUT Every morning April 03, 2024 11:22am March 21, 2025 11:29am Start: 06-13-2019 inject 30 [IU] by ro[facility]man [...] 07, 2019 6:55pm Start: 03-07-2019 End: 08-28-2021 Insulin Aspart U-100 (Novolo g Flexpen U-100 Insulin) 100 unit/mL (3 mL) Insulin Pen Discontinued 0 UNITS SUBCUT Before meals and at bedtime Protocol: *If the corrective scale dose has been administered within the past 4 hours, do not use corrective scale again unless approved by prescriber* Condition: Dose/Route: Instructions: Condition: Fingerstick Blood Glucose Dose/Route: Insulin Units Condition: mg/dl Dose/Route: 1 unit Instructions: 120-150 Condition: mg/dl Dose/Route: 2 units Instructions: 151-200 Condition: mg/dl Dose/Route: 3 units Instructions: 201-250 Condition: mg/dl Dose/Route: 4 units Instructions: 251-300 Condition: mg/dl Dose/Route: 5 units Instructions: 301-350 Condition: mg/dl Dose/Route: 6 units Instructions: 351-400 Condition: mg/dl Dose/Route: 7 units Instructions: 401-450 Condition: mg/dl Dose/Route: 8 units Instructions: 451-500 Condition: mg/dl Dose/Route: 9 units Condition: mg/dl Dose/Route: 10 units Dose/Route: 11 units Condition: Greater than or = 400 mg/dl Instructions: Call Provider Condition: Custom Scale 1:___ Instructions: GIVE 1 UNIT OF ASPART FOR EVERY ___MG GLUCOSE Instructions: STARTING AT 150MG AT BG CHECKS March 07, 2019 12:00am August 28, 2021 2:19pm Please contact the information source for Protocol details. Start: 04-28-2017 NOVOLOG FLEXPE N 100 UNIT/ML injection pen Indications: BS 150-200, 1 Unit+1 Unit, BS 201-250, 2unit-1 Unit, 251-300, 3 unit+1Unit Inject into the skin daily (with breakfast) 0 04/28/2017 Active NovoLOG Active Bevmfy-Bvzuuoer-Oznhewd (Creon) 3,000-9,500- 15,000 unit capsule,delayed release(DR/EC) (3 sources) Start: 09-29-2024 take 2 capsules by mouth twice daily Lsapvk-Zabtrupq-Vczwyje (Creon) 3,000-9,500- 15,000 unit capsule,delayed release(DR/EC) Active 0 PO As Directed 1169September 29, 2024 9:54am 13 caps per day = 3 capsules with meals three times a day, 2 capsules with snacks twice a day orally as directed; Start: 09-29-2024 End: 09-29-2024 take 2 capsules by mouth twice daily Iuldih-Btosfdxp-Bgwouql (Creon) 3,000-9,500- 15,000 unit capsule,delayed release(DR/EC) Discontinued 0 PO As Directed 1169September 29, 2024 9:53am September 29, 2024 9:54am 13 caps per day = 3 capsules with meals three times a day, 2 capsules with snacks twice a day orally as directed; Start: 09-19-2024 End: 09-29-2024 take 2 capsules by mouth twice daily Wvtpwi-Ishbjvea-Udzzxhg (Creon) 3,000-9,500- 15,000 unit capsule,delayed release(DR/EC) Discontinued 0 PO As Directed 1169September 19, 2024 4:07pm September 29, 2024 9:54am 13 caps per day = 3 capsules with meals three times a day, 2 capsules with snacks twice a day orally as directed; loperamide hydrochloride 2 mg oral capsule (20 sources) Opioid Agonist Start: 03-21-2025 take 1 capsule by mouth twice daily Start: 04-25-2024 take 2 mg by mouth once daily loperamide 2 mg, Oral, Daily, Refills(s) 0 Start Date: 04/25/24 Status: Ordered Repeat number: 1 Start: 08-12-2023 End: 03-21-2025 take 1 capsule by mouth once as needed Loperamide (Imodium A-D) 2 mg capsule Discontinued 2 MG PO .prn as needed April 03, 2024 12:00am October 27, 2024 2:57pm Start: 08-31-2022 take 1 capsule by mo [facility] every six hours Imodium A-D 2 MG [...] oral tablet (20 sources) Start: 03-07-2019 End: 03-21-2025 take 1 tablet by mouth once daily loratadine 10 mg Tab 10 mg = 1 tab(s), Oral, Daily, Refills(s) 0 Start Date: 04/25/24 Status: Ordered Repeat number: 1 take 1 capsule by mouth once cheng [...] Refills(s) 0 Start Date: 04/25/24 Status: Ordered Repeat number: 1 Start: 09-11-2021 take 1 tablet by daly th once daily at lunch Start: 03-07-2019 End: 09-11-2021 take 1 tablet by mouth once daily at lunch Magnesium Oxide 420 mg Tablet Discontinued 420 MG PO Daily with lunch March 07, 2019 12:00am September 11, 2021 10:18am memantine hydrochloride 10 mg oral tablet (20 sources) I-agsxqz-R-aspartate Receptor Antagonist Start: 10-21-2024 Start: 12-28-2022 End: 10-11-2024 take 1 capsule by mouth once daily memantine 28 mg oral capsule, extended release 28 mg = 1 cap(s), Oral, Daily, Refills(s) 0 Start Date: 04/25/24 Status: Ordered Repeat number: 1 Start: 06-12-2019 take 28 mg by mouth [...] mirabegron 50 mg extended release oral tablet (9 sources) beta3-Adrenergic Agonist Start: 06-15-2024 take 1 tablet by mouth once daily mirabegron 50 mg oral tablet, extended release 50 mg = 1 tab(s), Oral, Daily, # 14 tab(s), Refills(s) 0, Pharmacy: [facility]/pharmacy #[id number], 167, cm, 11/28/24 13:57:00 EDT, Height/Length Dosing, 72, kg, 11/28/24 13:57:00 EDT, Weight Dosing Start Date: 01/22/25 Status: Ordered Quantity: 14.0 Unit: tab(s) Repeat number: 1 Mometasone (6 sources) Corticosteroid Start: 04-25-2024 take 50 ug by inhalation twice daily mometasone 50 mcg, Inhalation, BID, Refills(s) 0 Start Date: 04/25/24 Status: Ordered Repeat number: 1 Start: 04-25-2024 take 50 ug by inhala tion twice daily mometasone 50 mcg, Inhalation, BID, [...] in the morning. 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 Place 1 tablet [...] (1 source) Serotonin-3 Receptor Antagonist Start: 06-12-20 4 mg, Intravenous, EVERY 6 HOURS PRN, Nausea, Vomiting, Starting Wed06/12/19 at 1457, Recovery(Cath) ondansetron ODT (Zofran-ODT) disintegrating tablet 4 mg (1 source) Start: 10-20-19 take 1 tablet by mouth every eight hours as needed ondansetron ODT (Zofran-ODT) disintegrating tablet 4 mg oxybutynin chloride 5 mg oral tablet (1 source) Cholinergic Muscarinic Antagonist Start: 10-21-19 Pancrelipase, Jcl-Xiun-Jalp, (CREON PO) (1 source) take 2 capsules by mouth three times daily at mealtime Pancrelipase, Uuf-Oynv-Awhf, (CREON PO) Take 2 capsules by mouth [...] Refills(s) 0 Start Date: 04/25/24 Status: Ordered Repeat number: 1 Start: 03-23-2023 take 1 tablet by daly th in the morning PARoxetine (Paxil) 20 MG tablet Take 20 mg by mouth in the morning. 03/23/2023 Active Start: 06-12-2019 take 20 mg by mouth once daily 20 mg, Oral, DAILY, First dose on 06/12/19 at 1515 Patient may take home supply. [...] day at night. Active polyethylene glycol 3350 32207 mg powder for oral solution (20 sources) Osmotic Laxative Start: 09-11-2021 End: 04-03-2024 take 17 g by mouth once daily Mi raLax 17 GM/SCOOP as directed Orally Once a day Not-Taking Psyllium (5 sources) Start: 04-25-2024 take 6 g by mouth tw ice daily psyllium oral powder 6 gm, Oral, BID, Refills(s) 0 Start Date: 04/25/24 Status: Ordered Repeat number: 1 Start: 04-25-2024 take 6 g by mouth twice daily psyllium oral powder 6 gm, Oral, BID, Refills(s) 0 Start Date: 04/25/24 Status: Ordered 24 hr rivastigmine 0.554 mg/ hr transdermal system (20 sources) Start: 04-25-2024 rivastigmine 1 3.3 mg/24 hr transdermal film, extended release = 1 patch(es), Topical, Daily, # 30 patch(es), Refills(s) 0 Start Date: 04/25/24 Status: Ordered Quantity: 30.0 Unit: patch(es) Repeat number: 1 Start: 03-07-2019 End: 10-25-2023 apply 1 dose [...] 1 dose transdermal route every twenty-four hours apply 1 dose transde rmal route once [...] Refills(s) 0 Start Date: 04/25/24 Status: Ordered Repeat number: 1 Start: 06-03-2018 End: 09-11-2021 take 1 capsule [...] (20 sources) Serotonin Reuptake Inhibitor Start: 2024 Start: 10-20-2024 take 25 mg by mouth once daily 25 mg, oral, Nightly, First dose on Wed10/20/24 at 2100 Start: 04-03-2024 End: 03-21-2025 take 1 tablet by mouth once daily Trazodone 50 mg tablet Discontinued 50 MG PO Daily April 03, 2024 12:00am March 21, 2025 11:29am Vitamin D (2 sources) Start: 06-12-2019 take 3000 [IU] by [facility] once daily at dinner 3,000 Units, Oral, DAILY WITH DINNER, First dose on Wed06/12/19 at 1730 Patient may take home supply. take 3 tablets by [facility] once daily, then take 1 tablet by mouth vitamin D (CHOLECALCIFEROL) 1000 UNIT TA BS tablet Take 3,000 Units by mouth Daily with supper 0 Active Vitamin D3 489954 UNIT/GM (6 sources) Vitamin D3 21043 0 UNIT/GM as directed Orally Once a day Active Vitamin D3 25 MCG (1000 UT) (8 sources) take 3 tablets by [facility] once daily Vitamin D3 25 MCG [...] 18, 2019 12:00am September 11, 2021 10:18am amylase 80679 unt / lipase 3000 unt / protease 9500 unt delayed release oral capsule (20 sources) Start: 09-19-2024 End: 03-21-2025 take 2 capsules by mouth twice daily Qlbhnb-Jronxpme-Kutdzhx (Creon) 3,000-9,500- 15,000 unit capsule,delayed release(DR/EC) Discontinued 0 PO As Directed 1170 90 September 29, 2024 9:54am March 21, 2025 11:45am 13 caps per day = 3 capsules with meals three times a day, 2 capsules with snacks twice a day orally as directed; Start: 03-02-2023 take 1 capsule by mo uth three times daily Creon 12,000 units oral delayed release capsule = 1 cap(s), Oral, TID, Refills(s) 0 Start Date: 04/25/24 Status: Ordered Repeat number: 1 Start: 03-19-2021 End: 09-19-2024 take 3 capsules by mouth three times daily at mealtime, then take 2 capsules by mouth twice daily Mobjsw-Fmqugjaz-Nyqmtek (Creon) 3,000-9,500- 15,000 unit capsule,delayed release(DR/EC) Discontinued [...] tablets twice daily with snacks 04/08/2016 Active Calcium Carbonate-Vitamin D3 (Calcium 500 + D) [...] by daly th twice daily at mealtime Start: 09-04-2021 End: 09-11-2021 take 1 tablet by mouth twice daily at mealtime Carvedilol 3.125 mg Tablet Discontinued 3.125 MG PO Twice daily with meals 0 September 04, 2021 1:00am September 11, 2021 10:18am digoxin 0.125 mg [...] 18, 2019 12:00am August 28, 2021 1:52pm fluticasone propionate 0.05 mg/actuat metered dose nasal spray (20 sources) Corticosteroid Start: 09-05-2021 End: 03-21-2025 Fluticasone Propionate 50 mcg/actuation [place],Suspension Discontinued 2 SPRAY INTRANASAL Every morning September 11, 2021 1:00am March 21, 2025 11:27am gemfibrozil 600 mg oral tablet (20 sources) [...] directed Orally Once a day Not-Taking omega 5-zgo-zbd-fish oil (Fish OiL) 1,000 mg (120 mg-180 mg) capsule (1 source) End: 04-24-2024 take 2 capsules by mouth in the morning omega 4-ztg-xdk-fish oil (Fish OiL) 1,000 mg (120 mg-180 mg) capsule Take 2 capsules (2,000 mg) by mouth early in the morning.. 04/24/2024 Discontinued (Side effects) Potassium Chloride (20 sources) Start: 04-25-2024 take 1 tablet by mouth once daily Potassium Chloride (Fxb-Jzkq-Dfm 10) 10 mEq oral tablet, extended release 10 mEq = 1 tab(s), Oral, Daily, Refills(s) 0 Start Date: 04/25/24 Status: Ordered Repeat number: 1 Start: 04-25-2024 take 1 tablet by daly th once daily Potassium Chloride (Cvz-Qksy-Jhz 10) 10 mEq oral tablet, extended release [...] capsule by mouth once daily at lunch End: 12-06-2023 take 1 capsule by mouth four times daily potassium chloride ER (Micro-K) 10 mEq ER capsule Take 1 capsule (10 mEq) by mouth 4 times a day. 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 90 tablet 3 09/01/2024 10/27/2024 Discontinued (Reorder) sacubitril 24 mg / valsartan 26 mg oral tablet (20 sources) Angiotensin 2 Receptor [place] Start: 04-24-2024 End: 10-27-2025 take [id number] 28893 mg by mouth in the evening sacubitriL-valsartan [...] and sacubitril-valsartan. simethicone 80 mg chewable tablet (16 sources) Start: 03-07-2019 End: 09-11-2021 take 1 [...] Not-Taking warfarin sodium 1 mg oral tablet (13 sources) Vitamin K Antagonist Start: 03-07-2019 End: [...] unspecified] Onset: 4 09-02-2021 Chronic Administrative/social admission (13 sources) Other reduced mobility; Translations: [Impaired mobility and activities of daily living] 09-04-2021 Episodic Anxiety disorders (20 sources) Posttraumatic stress disorder; Translations: [Anxiety] Onset: 4 10-04-2013 Chronic Calculus of urinary tract (10 sources) Kidney stone; Translations: [History of calculus of kidney] Onset: 5 04-02-2015 Episodic Cancer of prostate (18 sources) Malignant tumor of prostate; Translations: [Malignant neoplasm of prostate] Onset: 9 10-25-2023 Chronic Cancer of prostate (20 sources) History of malignant neoplasm of prostate; [...] 4 Chronic obstructive pulmonary disease and bronchiectasis (6 sources) Chronic obstructive lung disease; Translations: [COPD [...] 3 12-03-2017 Chronic Deficiency and other anemia (5 sources) Anemia 04-19-2024 Episodic Delirium, dementia, and [...] 8 12-03-2017 Chronic Disorders of lipid metabolism (10 sources) Hypercholesterolemia; Translations: [Mixed hyperlipidemia] 04-19-2024 Chronic Esophageal disorders (4 sources) Gastroesophageal reflux disease; Translations: [Gastro-esophageal reflux disease without esophagitis] 03-21-2025 Chronic 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 (20 sources) Hypertensive disorder; Translations: [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] Onset: 4 10-25-2023 Chronic Fluid and electrolyte disorders (13 sources) Hypokalemia; Translations: [Hypokalemia] 09-04-2021 Episodic Genitourinary symptoms and ill-defined conditions (8 sources) Urge incontinence of urine; Translations: [Unspecified urinary incontinence] Onset: 5 04-02-2015 Chronic Headache; including migraine (4 sources) Chronic post-traumatic headache; Translations: [Chronic post-traumatic headache, not intractable] 06-13-2024 Chronic Headache; including migraine (20 sources) Headache; Translations: [Headache] Onset: 4 04-25-2024 Episodic Heart valve disorders (20 sources) Non-rheumatic mitral regurgitation ; Translations: [Nonrheumatic mitral (valve) insufficiency] Onset: 4 04-24-2024 Chronic Hyperplasia of prostate (20 sources) Benign prostatic hypertrophy with outflow obstruction; Translations: [Benign prostatic hyperplasia] Onset: 5 06-26-2017 Chronic Malaise and fatigue (18 sources) Weakness; Translations: [Asthenia] Onset: 2 Episodic [...] deficiency, unspecified] Onset: 4 04-19-2024 Chronic Osteoarthritis (6 sources) Osteoarthritis; Translations: [Arthritis] Onset: 4 04-19-2024 [...] aftercare (1 source) Treatment changed; Translations: [Other [place] [facility] (current[facility] drug therapy] 10-25-2023 Episodic Other aftercare (1 source) Long-term current use of drug therapy; Translations: [vermin exterminator (current) use of antithrombotics/antipl atelets] Onset: 4 Episodic Other aftercare (1 source) Surgical follow-up; Translations: [Encounter for follow-up examination after completed treatment for conditions other than malignant neoplasm] 10-20-2024 Episodic Other aftercare (2 sources) Other [place] [facility] (current) drug therapy; Translations: [Other extermination supervisor (current) drug therapy] Onset: 5 Episodic Other and ill-defined heart disease (5 sources) Heart disease 04-19-2024 Chronic Other bone [...] Chronic Other ear and sense organ disorders (5 sources) Sensorineural hearing loss, bilateral 04-19-2024 Chronic Other gastrointestinal disorders (20 sources) Constipation alternates with diarrhea; Translations: [Other specified symptoms and signs involving the digestive system and abdomen] Episodic Other gastrointestinal disorders (9 sources) Incontinence of feces; Translations: [Full incontinence of feces] Episodic Other gastrointestinal disorders (11 sources) Diarrhea, unspecified; Translations: [DIARRHEA UNSPECIFIED] Onset: 2 Resolved: 2 Episodic Other gastrointestinal disorders (13 sources) Chronic constipation; Translations: [Other constipation] 09-04-2021 Episodic Other gastrointestinal disorders (2 sources) Dysphagia; Translations: [Dysphagia, unspecified] 02-05-2025 Episodic Other male genital disorders (1 source) Impotence of organic origin; Translations: [Impotence of organic origin] Onset: 5 04-02-2015 Chronic Other male genital disorders (5 sources) Secondary erectile dysfunction Onset: 5 04-19-2024 Chronic Other male genital disorders (3 sources) Phimosis; Translations: [Phimosis] Onset: 4 Episodic Other [...] Onset: 2 Resolved: 2 Episodic Parkinson`s disease (8 sources) Parkinson's disease; Translations: [Parkinson's disease] Onset: [...] [Permanent atrial fibrillation (Multi)] Onset: 3 Unclassified (3 sources) Long-term current use of drug therapy 07-25-2024 Unclassified (2 sources) Longstanding persistent atrial fibrillation; Translations: [Longstanding persistent atrial fibrillation (Multi)] Onset: 5 Unclassified (1 source) Drug therapy finding 11-27-2024 Past or Other Problems Problem Classification Problem Date Documented Da te Episodic/Chronic Acute and unspecified renal failure (5 sources) Acute renal failure syndrome Onset: 10-06-2013 [...] Translations: [Olegario hematuria] Onset: 10-06-2013 04-02-2015 Episodic Joint disorders and dislocations; trauma-related (17 sources) Tear of medial meniscus of knee; Translations: [Other tear of medial meniscus, current injury, unspecified knee, initial encounter] Onset: 01-24-2024 01-24-2024 Episodic Other acquired deformities (2 sources) Spondylolisthesis, lumbar region Onset: 07-24-2021 Resolved: 09-02-2021 Episodic Other aftercare (2 sources) Encounter for follow-up examination after completed treatment for conditions other than malignant neoplasm; Translations: [Encounter for follow-up examination after completed treatment for conditions other than malignant neoplasm] Onset: 10-20-2024 Episodic Other aftercare (4 sources) vermin exterminator (current) use of anticoagulants; Translations: [vermin exterminator (current) use of anticoagulants] Onset: 08-30-2023 Episodic [...] Unclassified (15 sources) Onset: 08-30-2023 Resolved: 10-27-2024 3 Results Test Name Value Interpretation Reference Range Facility Ambulatory Visit Summaryon 0 11-28-2024 Ambulatory Visit Summary Ambulatory Visit Summary YOANA IBRAHIM :1940 Visit Date:11/28/2024 Ambulatory Visit Instructions Your [...] 20 mg Tab) potassium chloride (Potassium Chloride (Cbn-Htds-Rgx 10) 10 mEq oral tablet, extended release) [...] CINTHYA SANCHEZ, MARY Leung When: Where: [address] [address]- Medications What How Much When Instructions Unchanged [...] Unchanged mometasone (more content not included)... Normal [facility] Urology Office/Clinic Noteon 11-28-2024 Urology Office/Clinic Note [...] 1.49 s/p radiation by Dr Galvez in [place]. Unsure of year of treatment or initial sx. 5. Antiplatelet or antithrombotic long-term use (Z79.02: vermin exterminator (current) use of antithrombotics/antiplate lets) Plavix. 6. Anticoagulated (Z79.01: senior care (current) use of anticoagulants) Eliquis. The patient is here with his today. [...] the plan. Follow-up With When Contact Information Petr PAINTING MD, URL [address] [address]- Additional Instructions: PRN Patient Education Phimosis, Pediatric I, Leia Arroyo, personally scribed for Dr. Painting on 11/28/2024 14:15:14. . Documentation recorded by the scribe, Leia Arroyo, accurately reflects the services(s) I performed and decisions made by me. Authenticated by Dr. Painting on 11/28/2024 14:17:19. Portions of this record may have been created with voice recognition artificial intelligence software, specifically [employer], [employer] and or [employer]. Substituti (more content not included)... Normal [facility] Comment on above: Result Comment: Elec tronically Signed By: Petr PAINTING MD\.br\Date and Time Signed: 11/28/24 14:18 EDT\.br\Electronically Co-Signed By: Leia Arroyo\.br\Date and Time Co-Signed: 11/28/24 14:16 EDT Basic metabolic 2000 panelon 10-21-2024 Anion gap [Moles/Vol] 13 mmol/L 10 - 2 0 mmol/L [facility] Calcium [Mass/Vol] 8.9 mg/dL 8.6 - 10. 6 mg/dL [facility] Chloride [Moles/Vol] 105 mmol/L 98 - 10 7 mmol/L [facility] CO2 [Moles/Vol] 29 mmol/L 21 - 32 mmol/L [facility] Creatinine [Mass/Vol] 1.35 mg/dL High 0.50 - 1.30 mg/dL [facility] GFR/1.73 sq M.predicted among non-blacks MDRD (S/P/Bld) [Vol rate/Area] 53 mL/min/{1.73_m2} Low - PINF [facility] Comment on above: Calculations of ginette mated GFR are performed using the 2020 CKD-EPI Study Refit equation without the race variable for the IDMS-Traceable creatinine methods. https://jasn.asnjournals.org/content//ASN.57465 17339 Glucose [Mass/Vol] 112 mg/dL High 74 - 99 mg/dL [facility] Interpretation and review of laboratory results Abnormal [facility] Potassium [Moles/Vol] 4.1 mmol/L 3.5 - 5.3 mmol/L [facility] Sodium [Moles/Vol] 143 mmol/L 136 - 145 mmol/L [facility] Urea nitrogen [Mass/Vol] 35 mg/dL High 6 - 23 mg/dL [facility] Anion gap [Moles/Vol] 13 mmol/L Normal 10-20 [facility] Comment on above: Performed By: #### 2 4321-2 ####GHISLAINE MONTGOMERYTZKELLEY L ([id number])[facility] ([facility])[address] [place] [address] Calcium [Mass/Vol] 8.9 mg/dL Normal 8.6-10.6 [facility] Comment on above: Performed By: #### 2 4321-2 ####GHISLAINE QUIÑONESMOTZER L ([id number])[facility] ([facility])[address] [place] [address] Chloride [Moles/Vol] 105 mmol/L Normal 98-107 [facility] Comment on above: Performed By: #### 2 4321-2 ####GHISLAINE QUIÑONESMOTZER L ([id number])[facility] ([facility])[address] [place] [address] CO2 [Moles/Vol] 29 mmol/L Normal 21-32 [facility] Comment on above: Performed By: #### 2 4321-2 ####GHISLAINE MONTGOMERYTZKELLEY L ([id number])[facility] ([facility])[address] [place] [address] Creatinine [Mass/Vol] 1.35 mg/dL High 0.50-1.30 [facility] Comment on above: Performed By: #### 2 4321-2 ####GHISLAINE RAE L ([id number])[facility] ([facility])[address] [place] [address] Glomerular filtration rate/1.73 sq M.predicted 53 mL/min/1.73m*2 Low >60 [facility] Comment on above: Result Comment: Calc ulations of estimated GFR are performed using the 2020 CKD-EPI Study Refit equation without the race variable for the IDMS-Traceable creatinine methods. https://jasn.asnjournals.org/content/early/ASN.63654 974[address] Performed By: #### 2 4321-2 ####GHISLAINE RAE L ([id number])[facility] ([facility])[address] [place] [address] Glucose [Mass/Vol] 112 mg/dL High 74-99 [facility] Comment on above: Performed By: #### 2 4321-2 ####GHISLAINE MONTGOMERYTZER L ([id number])[facility] ([facility])[address] [place] [address] Potassium [Moles/Vol] 4.1 mmol/L Normal 3.5-5.3 [facility] Comment on above: Performed By: #### 2 4321-2 ####GHISLAINE QUIÑONESMOTZER L ([id number])[facility] ([facility])[address] [place] [address] Sodium [Moles/Vol] 143 mmol/L Normal 136-145 [facility] Comment on above: Performed By: #### 2 4321-2 ####GHISLAINE QUIÑONESMOTZER L ([id number])[facility] ([facility])[address] [place] [address] Urea nitrogen [Mass/Vol] 35 mg/dL High 6-23 [facility] Comment on above: Performed By: #### 2 4321-2 ####GHISLAINE QUIÑONESMOTZER L ([id number])[facility] ([facility])[address] [place] [id number] CBC W Auto Differential pane l (Bld)on 10-21-2024 Basophils (Bld) [#/Vol] 0.02 10*3/uL [facility] Basophils/100 WBC (Bld) 0.2 % 0.0 - 2.0 % [facility] Eosinophils (Bld) [#/Vol] 0.11 10*3/uL [facility] Eosinophils/100 WBC (Bld) 1.3 % 0.0 - 6.0 % [facility] Erythrocyte distribution width (RBC) [Ratio] 12.7 % 11.5 - 14.5 % [facility] Hematocrit (Bld) [Volume fraction] 30.8 % Low 41.0 - 52.0 % [facility] Hemoglobin (Bld) [Mass/Vol] 10.2 g/dL Low 13.5 - 17.5 g/dL [facility] Immature granulocytes (Bld) [#/Vol] 0.03 10*3/uL [facility] Immature granulocytes/100 WBC (Bld) 0.4 % 0.0 - 0.9 % [facility] Comment on above: Immature Granulocyte Count (IG) includes promyelocytes, myelocytes and metamyelocytes but does not include bands. Percent differential counts (%) should be interpreted in the context of the absolute cell counts (cells/UL). Interpretation and review of laboratory results Abnormal [facility] Lymphocytes (Bld) [#/Vol] 0.73 10*3/uL Low [facility] Lymphocytes/100 WBC (Bld) 8.9 % 13.0 - 44.0 % [facility] MCH (RBC) [Entitic mass] 33.4 pg 26.0 - 34.0 pg [facility] MCHC (RBC) [Mass/Vol] 33.1 g/dL 32.0 - 36.0 g/dL [facility] MCV (RBC) [Entitic vol] 101 fL High 80 - 100 fL [facility] Monocytes (Bld) [#/Vol] 1.07 10*3/uL High [facility] Monocytes/100 WBC (Bld) 13.1 % 2.0 - 10.0 % [facility] Neutrophils (Bld) [#/Vol] 6.21 10*3/uL High [facility] Comment on above: Percent differential counts (%) should be interpreted in the context of the absolute cell counts (cells/uL). Neutrophils/100 WBC (Bld) 76.1 % 40.0 - 80.0 % [facility] Nucleated RBC/100 WBC (Bld) [Ratio] 0 % [facility] Platelets (Bld) [#/Vol] 174 10*3/uL [facility] RBC (Bld) [#/Vol] 3.05 10*6/uL Low [facility] WBC (Bld) [#/Vol] 8.2 10*3/uL [facility] Basophils (Bld) [#/Vol] 0.02 x10*3/uL Normal 0.00-0.10 [facility] Comment on above: Performed By: #### 5 7021-8 #### GHISLAINE Baron ([id number]) [facility] ([facility]) [id number] [place] [address] Basophils/100 WBC (Bld) 0.2 % Normal 0.0-2.0 [facility] Comment on above: Performed By: #### 5 7021-8 #### GHISLAINE Baron ([id number]) [facility] ([facility]) [id number] [place] [address] Eosinophils (Bld) [#/Vol] 0.11 x10*3/uL Normal 0.00-0.40 [facility] Comment on above: Performed By: #### 5 7021-8 #### GHISLAINE Baron ([id number]) [facility] ([facility]) [address] [place] [address] Eosinophils/100 WBC (Bld) 1.3 % Normal 0.0-6.0 [facility] Comment on above: Performed By: #### 5 7021-8 #### GHISLAINE Baron ([id number]) [facility] ([facility]) [id number] [address] Erythrocyte distribution width (RBC) [Ratio] 12.7 % Normal 11.5-14.5 [facility] Comment on above: Performed By: #### 5 7021-8 #### GHISLAINE Baron ([id number]) [facility] ([facility]) [address] [place] [address] Hematocrit (Bld) [Volume fraction] 30.8 % Low 41.0-52.0 [facility] Comment on above: Performed By: #### 5 7021-8 #### GHISLAINE Baron ([id number]) [facility] ([facility]) [address] [place] [address] Hemoglobin (Bld) [Mass/Vol] 10.2 g/dL Low 13.5-17.5 [facility] Comment on above: Performed By: #### 5 7021-8 #### GHISLAINE Baron ([id number]) [facility] ([facility]) [address] [place] [address] Immature granulocytes (Bld) [#/Vol] 0.03 x10*3/uL Normal 0.00-0.50 [facility] Comment on above: Performed By: #### 5 7021-8 #### GHISLAINE Baron ([id number]) [facility] ([facility]) [address] [place] [address] Immature granulocytes/100 WBC (Bld) 0.4 % Normal 0.0-0.9 [facility] Comment on above: Result Comment: Pepper ture Granulocyte Count (IG) includes promyelocytes, myelocytes and metamyelocytes but does not include bands. Percent differential counts (%) should be interpreted in the context of the absolute cell counts (cells/UL). Performed By: #### 5 7021-8 #### GHISLAINE Baron ([id number]) [facility] ([facility]) [address] [place] [address] Lymphocytes (Bld) [#/Vol] 0.73 x10*3/uL Low 0.80-3.00 [facility] Comment on above: Performed By: #### 5 7021-8 #### GHISLAINE Baron ([id number]) [facility] ([facility]) [address] [place] [address] Lymphocytes/100 WBC (Bld) 8.9 % Normal 13.0-44.0 [facility] Comment on above: Performed By: #### 5 7021-8 #### GHISLAINE RAE L ([id number]) [facility] ([facility]) [address] [place] [address] MCH (RBC) [Entitic mass] 33.4 pg Normal 26.0-34.0 [facility] Comment on above: Performed By: #### 5 7021-8 #### GHISLAINE RAE L ([id number]) [facility] ([facility]) [id number] [address] MCHC (RBC) [Mass/Vol] 33.1 g/dL Normal 32.0-36.0 [facility] Comment on above: Performed By: #### 5 7021-8 #### GHISLAINE RAE L ([id number]) [facility] ([facility]) [id number] [place] [address] MCV (RBC) [Entitic vol] 101 fL High 80-100 [facility] Comment on above: Performed By: #### 5 7021-8 #### GHISLAINE RAE L ([id number]) [facility] ([facility]) [id number] [place] [place] [address] Monocytes (Bld) [#/Vol] 1.07 x10*3/uL High 0.05-0.80 [facility] Comment on above: Performed By: #### 5 7021-8 #### GHISLAINE RAE L ([id number]) [facility] ([facility]) [address] [place] [address] Monocytes/100 WBC (Bld) 13.1 % Normal 2.0-10.0 [facility] Comment on above: Performed By: #### 5 7021-8 #### GHISLAINE RAE L ([id number]) [facility] ([facility]) [address] [place] [place] [address] Neutrophils (Bld) [#/Vol] 6.21 x10*3/uL High 1.60-5.50 [facility] Comment on above: Result Comment: Perc ent differential counts (%) should be interpreted in the context of the absolute cell counts (cells/uL). Performed By: #### 5 7021-8 #### GHISLAINE Baron ([id number]) [facility] ([facility]) [address] [place] [address] Neutrophils/100 WBC (Bld) 76.1 % Normal 40.0-80.0 [facility] Comment on above: Performed By: #### 5 7021-8 #### GHISLAINE RAE L ([id number]) [facility] ([facility]) [id number] [place] [address] Nucleated RBC/100 WBC (Bld) [Ratio] 0.0 /100 WBCs Normal 0.0-0.0 [facility] Comment on above: Performed By: #### 5 7021-8 #### GHISLAINE QUIÑONESMOTZER L ([id number]) [facility] ([facility]) [address] [place] [address] Platelets (Bld) [#/Vol] 174 x10*3/uL Normal 150-450 [facility] Comment on above: Performed By: #### 5 7021-8 #### GHISLAINE RAE L ([id number]) [facility] ([facility]) [address] [place] [address] RBC (Bld) [#/Vol] 3.05 x10*6/uL Low 4.50-5.90 [facility] Comment on above: Performed By: #### 5 7021-8 #### GHISLAINE RAE L ([id number]) [facility] ([facility]) [address] [place] [address] WBC (Bld) [#/Vol] 8.2 x10*3/uL Normal 4.4-11.3 [facility] Comment on above: Performed By: #### 5 7021-8 #### GHISLAINE Baron ([id number]) [facility] ([facility]) [id number] [place] [address] Coagulation tissue factor in ducedon 10-21-2024 PT Coag (PPP) [Time] 13.7 s High 9.8-12.8 [facility] Comment on above: Performed By: #### 5 902-2 ####GHISLAINE Baron ([id number])[facility] ([facility])[address] [place], [place] [address] ECG 12-LEADon 10-21-2024 ECG 12-LEAD Ventricular Rate 60 Atrial Rate 258 QRS Duration 192 Q-T Interval 458 QTC Calculation(Bazett) 458 R Tomball -46 T Tomball 84 QRS Count 10 Q Onset 188 T Offset 417 QTC Fredericia 458 Diagnosis Electronic ventricular pacemaker When compared with ECG of 21-OCT-2024 09:45, Electronic ventricular pacemaker has replaced Atrial fibrillation Confirmed by Sloan Jaimes ([id number]) on 10/28/2024 11:25:05 AM Normal [facility] Magnesiumon 10-21-2024 Magnesium [Mass/Vol] 2.22 mg/dL 1.60 - 2.40 mg/dL [facility] Magnesium [Mass/Vol] 2.22 mg/dL Normal 1.60-2.40 [facility] Comment on above: Performed By: #### 1 9123-9 ####GHISLAINE Baron ([id number])[facility] ([facility])[address] [place], [place] [address] Magnesium [Mass/Vol]on 10-21 Interpretation and review of laboratory results Normal [facility] No Panel Informationon 10-21 [facility] PT Coag (PPP) [Time]on 10-21 INR Coag (PPP) [Relative time] 1.2 {INR} High 0.9 - 1.1 [facility] Interpretation and review of laboratory results Abnormal [facility] INR Coag (PPP) [Relative time] 1.2 High 0.9-1.1 [facility] Comment on above: Performed By: #### 5 902-2 ####GHISLAINE Baron ([id number])[facility] ([facility])[address] [place], [place] [address] Protime-INRon 10-21-2024 PT Coag (PPP) [Time] 13.7 s [facility] TRANSTHORACIC ECHO (TTE) FELDER ITEDon 10-21-2024 TRANSTHORACIC ECHO (TTE) [facility], [address] [place], [place] [address] and TRANSTHORACIC ECHOCARDIOGRAM REPORT Patient Name: YOANA IBRAHIM Reading Physician: [id number] Benja Adan MD Study Date: 10/21/2024 Ordering Provider: [id number] MONSE LANDERS MRN/PID: [id number] Fellow: Nurse: Date of /Age: 4 1940 / 83 years Scarf And Anneal Operator: Fletcher Navarro RDCS Gender assigned at M Additional Staff: : Height: 167.64 cm Admit Date: Weight: 83.46 kg Admission Status: Inpatient - Routine BSA / BMI: 1.93 m2 / 29.70 kg/m2 Blood Pressure: 117/37 mmHg Department Location: [place] [address] Study Type: TRANSTHORACIC ECHO (TTE) LIMITED Diagnosis/ICD: Encounter for follow up examination after completed treatment for conditions other than malignant neoplasm-Z09; Presence of other cardiac implants and grafts-Z95.818 Indication: s/p LAAO CPT Code: Echo Limited-68786 Patient History: Pertinent History: Chronic systolic left [...] 10/20/2024, no significant change. QUANTITATIVE DATA SUMMARY: [id number] Benja Adan MD Electronically signed on 10/21/2024 at 10:56:59 AM Final [facility] US Heart Transthoracicon [facility], [address] [place] [address] and TRANSTHORACIC ECHOCARDIOGRAM REPORT Patient Name: YOANA IBRAHIM Reading Physician: [id number] Benja Adan MD Study Date: 10/21/2024 Ordering Provider: [id number] MONSE LANDERS MRN/PID: [id number] Fellow: Nurse: Date of /Age: 4 1940 / 83 years Scarf And Anneal Operator: Fletcher Navarro RDCS Gender assigned at M Additional Staff: : Height: 167.64 cm Admit Date: Weight: 83.46 kg Admission Status: Inpatient - Routine BSA / BMI: 1.93 m2 / 29.70 kg/m2 Blood Pressure: 117/37 mmHg Department Location: [place] [address] Study Type: TRANSTHORACIC ECHO (TTE) LIMITED Diagnosis/ICD: Encounter for follow up examination after completed treatment for conditions other than malignant neoplasm-Z09; Presence of other cardiac implants and grafts-Z95.818 Indication: s/p LAAO CPT Code: Echo Limited-48598 Patient History: Pertinent History: Chronic systolic left [...] 10/20/2024, no significant change. QUANTITATIVE DATA SUMMARY: [id number] Benja Adan MD Electronically signed on 10/21/2024 at 10:56:59 AM Final Benja Beth MD - 10/21/2024 [facility], [address] [place] [address] and TRANSTHORACIC ECHOCARDIOGRAM REPORT Patient Name: YOANA IBRAHIM Reading Physician: [id number] Benja Adan MD Study Date: 10/21/2024 Ordering Provider: [id number] MONSE LANDERS MRN/PID: [id number] Fellow: Nurse: Date of /Age: 4 1940 / 83 years Scarf And Anneal Operator: Fletcher Navarro RDCS Gender assigned at M Additional Staff: : Height: 167.64 cm Admit Date: Weight: 83.46 kg Admission Status: Inpatient - Routine BSA / BMI: 1.93 m2 / 29.70 kg/m2 Blood Pressure: 117/37 mmHg Department Location: [place] [address] Study Type: TRANSTHORACIC ECHO (TTE) LIMITED Diagnosis/ICD: Encounter for follow up examination after completed treatment for conditions other than malignant neoplasm-Z09; Presence of other cardiac implants and grafts-Z95.818 Indication: s/p LAAO CPT Code: Echo Limited-50159 Patient History: Pertinent History: Chronic systolic left [...] 10/20/2024, no significant change. QUANTITATIVE DATA SUMMARY: [id number] Benja Adan MD Electronically signed on 10/21/2024 at 10:56:59 AM Final [facility] Work Phone: [facility] Work Phone: Abo/Rh Group Teston 10-20-19 25 ABO group Nom (Bld) A [facility] D Ag Ql (d) Positive [facility] Activated clotting timeon ACT Coag (d) 328 s High 89-169 [facility] Comment on above: Result Comment: Targ et ACT range will vary based on the patient population, clinical status, and surgical intervention occurring. Performed By: #### 3 184-9 ####GHISLAINE Baron ([id number])[facility] ([facility])[address] [place] [address] Basic metabolic 2000 panelon 10-20-2024 Anion gap [Moles/Vol] 14 mmol/L 10 - 2 0 mmol/L [facility] Calcium [Mass/Vol] 8.6 mg/dL 8.6 - 10. 6 mg/dL [facility] Chloride [Moles/Vol] 105 mmol/L 98 - 10 7 mmol/L [facility] CO2 [Moles/Vol] 28 mmol/L 21 - 32 mmol/L [facility] Creatinine [Mass/Vol] 1.38 mg/dL High 0.50 - 1.30 mg/dL [facility] GFR/1.73 sq M.predicted among non-blacks MDRD (S/P/Bld) [Vol rate/Area] 51 mL/min/{1.73_m2} Low - PINF [facility] Comment on above: Calculations of ginette mated GFR are performed using the 2020 CKD-EPI Study Refit equation without the race variable for the IDMS-Traceable creatinine methods. https://jasn.asnjournals.org/content/early//ASN.95190 56290 Glucose [Mass/Vol] 111 mg/dL High 74 - 99 mg/dL [facility] Interpretation and review of laboratory results Abnormal [facility] Potassium [Moles/Vol] 4.5 mmol/L 3.5 - 5.3 mmol/L [facility] Sodium [Moles/Vol] 142 mmol/L 136 - 145 mmol/L [facility] Urea nitrogen [Mass/Vol] 36 mg/dL High 6 - 23 mg/dL [facility] Anion gap [Moles/Vol] 14 mmol/L Normal 10-20 [facility] Comment on above: Performed By: #### 2 4321-2 #### GHISLAINE Baron ([id number]) [facility] ([facility]) [address] [place] [address] Calcium [Mass/Vol] 8.6 mg/dL Normal 8.6-10.6 [facility] Comment on above: Performed By: #### 2 4321-2 #### GHISLAINE Baron ([id number]) [facility] ([facility]) [address] [place] [address] Chloride [Moles/Vol] 105 mmol/L Normal 98-107 [facility] Comment on above: Performed By: #### 2 4321-2 #### GHISLAINE RAE L ([id number]) [facility] ([facility]) [address] [place] [address] CO2 [Moles/Vol] 28 mmol/L Normal 21-32 [facility] Comment on above: Performed By: #### 2 4321-2 #### GHISLAINE Baron ([id number]) [facility] ([facility]) [address] [place] [address] Creatinine [Mass/Vol] 1.38 mg/dL High 0.50-1.30 [facility] Comment on above: Performed By: #### 2 4321-2 #### GHISLAINE Baron ([id number]) [facility] ([facility]) [address] [place] [address] Glomerular filtration rate/1.73 sq M.predicted 51 mL/min/1.73m*2 Low >60 [facility] Comment on above: Result Comment: Calc ulations of estimated GFR are performed using the 2020 CKD-EPI Study Refit equation without the race variable for the IDMS-Traceable creatinine methods. https://jasn.asnjournals.org/content//ASN.73927 84841 Performed By: #### 2 4321-2 #### GHISLAINE Baron ([id number]) [facility] ([facility]) [address] [place] [address] Glucose [Mass/Vol] 111 mg/dL High 74-99 [facility] Comment on above: Performed By: #### 2 4321-2 #### GHISLAINE RAE L ([id number]) [facility] ([facility]) [address] [place] [address] Potassium [Moles/Vol] 4.5 mmol/L Normal 3.5-5.3 [facility] Comment on above: Performed By: #### 2 4321-2 #### GHISLAINE Baron ([id number]) [facility] ([facility]) [address] [place], [place] [address] Sodium [Moles/Vol] 142 mmol/L Normal 136-145 [facility] Comment on above: Performed By: #### 2 4321-2 #### GHISLAINE Baron ([id number]) [facility] ([facility]) [address] [place], [place] [address] Urea nitrogen [Mass/Vol] 36 mg/dL High 6-23 [facility] Comment on above: Performed By: #### 2 4321-2 #### GHISLAINE Baron ([id number]) [facility] ([facility]) [address] [place], [place] [address] Blood type AND Indirect anti body screen panelon 10-20-2024 ABO group Nom (Bld) A Normal [facility] Comment on above: Performed By: #### 3 4532-2 #### GHISLAINE Baron ([id number]) [facility] ([facility]) [address] [place] [address] Performed By: #### Carmelina ERALui #### GHISLAINE Baron ([id number]) [facility] ([facility]) [address] [place], [place] [address] D Ag Ql (Bld) Positive [facility] Comment on above: Performed By: #### 3 4532-2 #### GHISLAINE Baron ([id number]) [facility] ([facility]) [address] [place] [address] Performed By: #### V ERAB #### GHISLAINE Baron ([id number]) [facility] ([facility]) [address] [place], [place] [address] Blood type and Indirect anti body screen panel (Bld)on 10-20-2024 ABO group Nom (Bld) A [facility] Blood group antibody screen Ql Negative [facility] D Ag Ql (Bld) Positive [facility] Blood group antibody screen Ql Negative Normal [facility] Comment on above: Performed By: #### 3 4532-2 #### GHISLAINE Baron ([id number]) [facility] ([facility]) [address] [place] [address] CARDIAC CATHETERIZATION PROC EDUREon 10-20-[address] [facility], Software Product Specialist, [address] [place] [address] Cardiovascular Catheterization Report Patient Name: YOANA IBRAHIM Performing Physician: [id number] Pickering MD Study Date: 10/20/2024 Verifying Physician: [id number] Pickering MD MRN/PID: [id number] Insecticide Maker/Co-Scrub: Ordering Provider: [id number] FABIANO PICKERING Date of 1940 Insecticide Maker: /Age: years Gender: M Fellow: [id number] Marvin Rascon MD Surgeon: Study: Left Atrial [...] guidance, transseptal puncture was performed with a versacross system (access [email or web address]), accessing the left atrium. The transseptal tract was then dilated with a Watchman FXD Double Curve access sheath and the ICE probe was advanced through the dilated tract into the left atrium. Next, a 6 Tajik angled pigtail was advanced through the delivery [...] CPT Codes: Perc left atrial appendage closure (LAAC)-45046 [id number] Fabiano Pickering MD Performing Physician Final Normal [facility] CBC W Auto Differential pane l (Bld)on 10-20-2024 Basophils (Bld) [#/Vol] 0.03 10*3/uL [facility] Basophils/100 WBC (Bld) 0.6 % 0.0 - 2.0 % [facility] Eosinophils (Bld) [#/Vol] 0.09 10*3/uL [facility] Eosinophils/100 WBC (Bld) 1.7 % 0.0 - 6.0 % [facility] Erythrocyte distribution width (RBC) [Ratio] 12.5 % 11.5 - 14.5 % [facility] Hematocrit (Bld) [Volume fraction] 31.2 % Low 41.0 - 52.0 % [facility] Hemoglobin (Bld) [Mass/Vol] 10 g/dL Low 13.5 - 17.5 g/dL [facility] Immature granulocytes (Bld) [#/Vol] 0.02 10*3/uL [facility] Immature granulocytes/100 WBC (Bld) 0.4 % 0.0 - 0.9 % [facility] Comment on above: Immature Granulocyte Count (IG) includes promyelocytes, myelocytes and metamyelocytes but does not include bands. Percent differential counts (%) should be interpreted in the context of the absolute cell counts (cells/UL). Interpretation and review of laboratory results Abnormal [facility] Lymphocytes (Bld) [#/Vol] 0.71 10*3/uL Low [facility] Lymphocytes/100 WBC (Bld) 13.7 % 13.0 - 44.0 % [facility] MCH (RBC) [Entitic mass] 33.7 pg 26.0 - 34.0 pg [facility] MCHC (RBC) [Mass/Vol] 32.1 g/dL 32.0 - 36.0 g/dL [facility] MCV (RBC) [Entitic vol] 105 fL High 80 - 100 fL [facility] Monocytes (Bld) [#/Vol] 0.62 10*3/uL [facility] Monocytes/100 WBC (Bld) 12 % 2.0 - 10.0 % [facility] Neutrophils (Bld) [#/Vol] 3.71 10*3/uL [facility] Comment on above: Percent differential counts (%) should be interpreted in the context of the absolute cell counts (cells/uL). Neutrophils/100 WBC (Bld) 71.6 % 40.0 - 80.0 % [facility] Nucleated RBC/100 WBC (Bld) [Ratio] 0 % [facility] Platelets (Bld) [#/Vol] 167 10*3/uL [facility] RBC (Bld) [#/Vol] 2.97 10*6/uL Low [facility] WBC (Bld) [#/Vol] 5.2 10*3/uL [facility] Basophils (Bld) [#/Vol] 0.03 x10*3/uL Normal 0.00-0.10 [facility] Comment on above: Performed By: #### 5 7021-8 #### GHISLAINE Baron ([id number]) [facility] ([facility]) [address] [place] [address] Basophils/100 WBC (Bld) 0.6 % Normal 0.0-2.0 [facility] Comment on above: Performed By: #### 5 7021-8 #### GHISLAINE Baron ([id number]) [facility] ([facility]) [address] [place] [address] Eosinophils (Bld) [#/Vol] 0.09 x10*3/uL Normal 0.00-0.40 [facility] Comment on above: Performed By: #### 5 7021-8 #### GHISLAINE Baron ([id number]) [facility] ([facility]) [address] [place] [address] Eosinophils/100 WBC (Bld) 1.7 % Normal 0.0-6.0 [facility] Comment on above: Performed By: #### 5 7021-8 #### GHISLAINE Baron ([id number]) [facility] ([facility]) [address] [place] [address] Erythrocyte distribution width (RBC) [Ratio] 12.5 % Normal 11.5-14.5 [facility] Comment on above: Performed By: #### 5 7021-8 #### GHISLAINE Baron ([id number]) [facility] ([facility]) [address] [place] [address] Hematocrit (Bld) [Volume fraction] 31.2 % Low 41.0-52.0 [facility] Comment on above: Performed By: #### 5 7021-8 #### GHISLAINE Baron ([id number]) [facility] ([facility]) [address] [place] [address] Hemoglobin (Bld) [Mass/Vol] 10.0 g/dL Low 13.5-17.5 [facility] Comment on above: Performed By: #### 5 7021-8 #### GHISLAINE Baron ([id number]) [facility] ([facility]) [address] [place] [address] Immature granulocytes (Bld) [#/Vol] 0.02 x10*3/uL Normal 0.00-0.50 [facility] Comment on above: Performed By: #### 5 7021-8 #### GHISLAINE Baron ([id number]) [facility] ([facility]) [address] [place] [address] Immature granulocytes/100 WBC (Bld) 0.4 % Normal 0.0-0.9 [facility] Comment on above: Result Comment: Pepper ture Granulocyte Count (IG) includes promyelocytes, myelocytes and metamyelocytes but does not include bands. Percent differential counts (%) should be interpreted in the context of the absolute cell counts (cells/UL). Performed By: #### 5 7021-8 #### GHISLAINE Baron ([id number]) [facility] ([facility]) [address] [place] [address] Lymphocytes (Bld) [#/Vol] 0.71 x10*3/uL Low 0.80-3.00 [facility] Comment on above: Performed By: #### 5 7021-8 #### GHISLAINE Baron ([id number]) [facility] ([facility]) [address] [place] [address] Lymphocytes/100 WBC (Bld) 13.7 % Normal 13.0-44.0 [facility] Comment on above: Performed By: #### 5 7021-8 #### GHISLAINE Baron ([id number]) [facility] ([facility]) [address] [place] [address] MCH (RBC) [Entitic mass] 33.7 pg Normal 26.0-34.0 [facility] Comment on above: Performed By: #### 5 7021-8 #### GHISLAINE Baron ([id number]) [facility] ([facility]) [address] [place] [address] MCHC (RBC) [Mass/Vol] 32.1 g/dL Normal 32.0-36.0 [facility] Comment on above: Performed By: #### 5 7021-8 #### GHISLAINE Baron ([id number]) [facility] ([facility]) [address] [place] [address] MCV (RBC) [Entitic vol] 105 fL High 80-100 [facility] Comment on above: Performed By: #### 5 7021-8 #### GHISLAINE Baron ([id number]) [facility] ([facility]) [address] [place] [address] Monocytes (Bld) [#/Vol] 0.62 x10*3/uL Normal 0.05-0.80 [facility] Comment on above: Performed By: #### 5 7021-8 #### GHISLAINE Baron ([id number]) [facility] ([facility]) [address] [place] [address] Monocytes/100 WBC (Bld) 12.0 % Normal 2.0-10.0 [facility] Comment on above: Performed By: #### 5 7021-8 #### GHISLAINE Baron ([id number]) [facility] ([facility]) [address] [place] [address] Neutrophils (Bld) [#/Vol] 3.71 x10*3/uL Normal 1.60-5.50 [facility] Comment on above: Result Comment: Perc ent differential counts (%) should be interpreted in the context of the absolute cell counts (cells/uL). Performed By: #### 5 7021-8 #### GHISLAINE Baron ([id number]) [facility] ([facility]) [address] [place] [address] Neutrophils/100 WBC (Bld) 71.6 % Normal 40.0-80.0 [facility] Comment on above: Performed By: #### 5 7021-8 #### GHISLAINE Baron ([id number]) [facility] ([facility]) [address] [place] [address] Nucleated RBC/100 WBC (Bld) [Ratio] 0.0 /100 WBCs Normal 0.0-0.0 [facility] Comment on above: Performed By: #### 5 7021-8 #### GHISLAINE Baron ([id number]) [facility] ([facility]) [address] [place] [address] Platelets (Bld) [#/Vol] 167 x10*3/uL Normal 150-450 [facility] Comment on above: Performed By: #### 5 7021-8 #### GHISLAINE Baron ([id number]) [facility] ([facility]) [address] [place] [address] RBC (Bld) [#/Vol] 2.97 x10*6/uL Low 4.50-5.90 [facility] Comment on above: Performed By: #### 5 7021-8 #### GHISLAINE Baron ([id number]) [facility] ([facility]) [address] [place] [address] WBC (Bld) [#/Vol] 5.2 x10*3/uL Normal 4.4-11.3 [facility] Comment on above: Performed By: #### 5 7021-8 #### GHISLAINE ULISESSYLVIA L ([id number]) [facility] ([facility]) [address] [place] [address] CT WATCHMAN LOW CONTRASTon 0 10-20-2024 CT WATCHMAN LOW CONTRAST Interpreted By: Chris Del Cid, STUDY: CT WATCHMAN LOW CONTRAST; 10/20/2024 12:30 pm INDICATION: Signs/Symptoms:A-fib, Pre-Watchman, CATHY Sizing, R/O CATHY Thrombus. ,I48.91 Unspecified atrial fibrillation (Multi) COMPARISON: None. ACCESSION NUMBER(S): [id number] ORDERING CLINICIAN: FABIANO PICKERING TECHNIQUE: Using multi-detector [...] Del Cid 10/20/2024 1:22 PM Dictation workstation: [id number] [facility] Comment on above: Order Comment: [...] Del Cid 10/20/2024 1:22 PM Dictation workstation: [id number] Interpreted By: Chris Mehta, STUDY: CT WATCHMAN LOW CONTRAST; 10/20/2024 12:30 pm INDICATION: Signs/Symptoms:A-fib, Pre-Watchman, CATHY Sizing, R/O CATHY Thrombus. ,I48.91 Unspecified atrial fibrillation (Multi) COMPARISON: None. ACCESSION NUMBER(S): [id number] ORDERING CLINICIAN: FABIANO PICKERING TECHNIQUE: Using multi-detector [...] no suspicious osseous lesions within included chest. MMODAL Hali Del Cid MD - 10/20/2024 Interpreted By: Chris Del Cid, STUDY: CT WATCHMAN LOW CONTRAST; 10/20/2024 12:30 pm INDICATION: Signs/Symptoms:A-fib, Pre-Watchman, CATHY Sizing, R/O CATHY Thrombus. ,I48.91 Unspecified atrial fibrillation (Multi) COMPARISON: None. ACCESSION NUMBER(S): [id number] ORDERING CLINICIAN: FABIANO PICKERING TECHNIQUE: Using multi-detector [...] Del Cid 10/20/2024 1:22 PM Dictation workstation: [id number] [facility] Work Phone: Radiology Study observation (narrative) [facility] Work Phone: CT watchman low contrastOrde red By: Hali Del Cid on 10-20-2024 [facility] Work Phone: Coagulation tissue factor in ducedon 10-20-2024 PT Coag (PPP) [Time] 15.1 s High 9.8-12.8 [facility] Comment on above: Performed By: #### 5 902-2 #### GHISLAINE Baron ([id number]) [facility] ([facility]) [address] [place] [address] ECG 12-LEADon 10-20-2024 ECG 12-LEAD Ventricular Rate 60 Atrial Rate 59 QRS Duration 208 Q-T Interval 476 QTC Calculation(Bazett) 476 R Tomball -47 T Tomball 85 QRS Count 10 Q Onset 187 T Offset 425 QTC Fredericia 476 Diagnosis Electronic ventricular pacemaker When compared with ECG of 20-OCT-2024 12:46, No significant change was found Confirmed by Sloan Jaimes ([id number]) on 10/28/2024 11:23:56 AM Normal [facility] ECG 12-LEAD Ventricular Rate 61 Atrial Rate 61 QRS Duration 214 Q-T Interval 486 QTC Calculation(Bazett) 489 R Tomball -51 T Tomball 67 QRS Count 10 Q Onset 182 T Offset 425 QTC Fredericia 488 Diagnosis Ventricular-paced rhythm Abnormal ECG No previous ECGs available Confirmed by Eduardo Christian ([id number]) on 11/03/2024 3:26:21 PM Normal [facility] Glucose Test strip manual (B ld) [Mass/Vol]on 10-20-2024 Glucose [Mass/Vol] 106 mg/dL High 74 - 99 mg/dL [facility] Interpretation and review of laboratory results Abnormal [facility] Glucose [Mass/Vol] 106 mg/dL High 74-99 [facility] Comment on above: Performed By: #### 2 341-6 #### GHISLAINE Baron ([id number]) [facility] ([facility]) [address] [place] [address] Magnesiumon 10-20-2024 Magnesium [Mass/Vol] 2.2 mg/dL 1.60 - 2.40 mg/dL [facility] Magnesium [Mass/Vol] 2.20 mg/dL Normal 1.60-2.40 [facility] Comment on above: Performed By: #### 1 9123-9 #### GHISLAINE Baron ([id number]) [facility] ([facility]) [address] [place] [address] Magnesium [Mass/Vol]on 10-20 Interpretation and review of laboratory results Normal [facility] No Panel Informationon 10-20 [facility] PT Coag (PPP) [Time]on 10-20 INR Coag (PPP) [Relative time] 1.3 {INR} High 0.9 - 1.1 [facility] Interpretation and review of laboratory results Abnormal [facility] INR Coag (PPP) [Relative time] 1.3 High 0.9-1.1 [facility] Comment on above: Performed By: #### 5 [id number] #### GHISLAINE Baron ([id number]) [facility] ([facility]) [address] [place] [id number] Protime-INRon 10-20-2024 PT Coag (PPP) [Time] 15.1 s High [facility] TRANSTHORACIC ECHO (TTE) FELDER ITEDon 10-20-2024 TRANSTHORACIC ECHO (TTE) [facility], [address] [place], [place] [id number] and TRANSTHORACIC ECHOCARDIOGRAM REPORT Patient Name: YOANA Zurita Physician: [id number] Benja Adan MD Study Date: 10/20/2024 Ordering Provider: [id number] MONSE LANDERS MRN/PID: [id number] Fellow: [id number] Noemi Mcelroy MD Nurse: Date of /Age: 4 1940 / 83 years [employer]f [employer] Anneal Operator: Joelle Dale RDCS Gender assigned at Additional Staff: : Height: 170.18 cm Admit Date: Weight: 81.65 kg Admission Status: Inpatient - Routine BSA / BMI: 1.93 m2 / 28.19 kg/m2 Blood Pressure: 133/62 mmHg Department Location: [facility] Software Product Specialist Study Type: TRANSTHORACIC ECHO (TTE) LIMITED Diagnosis/ICD: Encounter for preprocedural cardiovascular examination-Z01.810 Indication: pre LAAO CPT Code: Echo Limited-55833 Study Detail: The following Echo studies were [...] proper comparison is difficult. QUANTITATIVE DATA SUMMARY: [id number] Benja Adan MD Electronically signed on 10/20/2024 at 1:47:16 PM Final [facility] US Heart Transthoracicon [facility], [address] [place] [address] and TRANSTHORACIC ECHOCARDIOGRAM REPORT Patient Name: YOANA IBRAHIM Reading Physician: [id number] Benja Adan MD Study Date: 10/20/2024 Ordering Provider: [id number] MONSE LANDERS MRN/PID: [id number] Fellow: [id number] Noemi Mcelroy MD Nurse: Date of /Age: 4 1940 / 83 years [employer] Anne[employer] Operator: Joelle Dale [facility] Gender assigned at M Additional Staff: : Height: 170.18 cm Admit Date: Weight: 81.65 kg Admission Status: Inpatient - Routine BSA / BMI: 1.93 m2 / 28.19 kg/m2 Blood Pressure: 133/62 mmHg Department Location: [facility] Software Product Specialist Study Type: TRANSTHORACIC ECHO (TTE) LIMITED Diagnosis/ICD: Encounter for preprocedural cardiovascular examination-Z01.810 Indication: pre LAAO CPT Code: Echo Limited-93455 Study Detail: The following Echo studies were [...] proper comparison is difficult. QUANTITATIVE DATA SUMMARY: [id number] Benja Adan MD Electronically signed on 10/20/2024 at 1:47:16 PM Final Benja Beth MD - 10/20/2024 [facility], [address] [place] [address] and TRANSTHORACIC ECHOCARDIOGRAM REPORT Patient Name: YOANA IBRAHIM Reading Physician: [id number] Benja Adan MD Study Date: 10/20/2024 Ordering Provider: [id number] MONSE LANDERS MRN/PID: [id number] Fellow: [id number] Noemi Mcelroy MD Nurse: Date of /Age: 4 1940 / 83 years [employer] Anneal Operator: Joelle Dale [facility] Gender assigned at M Additional Staff: : Height: 170.18 cm Admit Date: Weight: 81.65 kg Admission Status: Inpatient - Routine BSA / BMI: 1.93 m2 / 28.19 kg/m2 Blood Pressure: 133/62 mmHg Department Location: [facility] Software Product Specialist Study Type: TRANSTHORACIC ECHO (TTE) LIMITED Diagnosis/ICD: Encounter for preprocedural cardiovascular examination-Z01.810 Indication: pre LAAO CPT Code: Echo Limited-67012 Study Detail: The following Echo studies were [...] proper comparison is difficult. QUANTITATIVE DATA SUMMARY: [id number] Benja Adan MD Electronically signed on 10/20/2024 at 1:47:16 PM Final [facility] Work Phone: Heart TransthoracicOrdere d By: Benja Adan on 10-20-2024 [facility] Work Phone: [facility]IBCon 2023 Interpretation and review of laboratory results Abnormal [facility] TB IRON 94 ug/dL 65.0 - 175.0 ug/dL [facility] TB PERCENT IRON SATURATION 40.5 % [facility] TB TOTAL IRON BINDING CAPACITY 232 ug/dL Low 250.0 - 450.0 ug/dL [facility] ECG 12 Leadon 07-30-2024 Please see the EKG r eport as documented on the EKG. [facility] Work Phone: Ambulatory Visit Summaryon 09-24-2023 Ambulatory Visit Summary Ambulatory Visit Summary [...] 20 mg Tab) potassium chloride (Potassium Chloride (Nmy-Esjo-Vzs 10) 10 mEq oral tablet, extended release) [...] SANCHEZ, Petr Richard Where: [facility] [address] [place] [address]- Medications What How Much When Instructions Unchanged [...] Every day Unchanged potassium chloride (Potassium Chloride (Fch-Nczi-Qch 10) 10 mEq oral tablet, extended release) [...] receiving van (more content not included)... Normal [facility] Urology Office/Clinic Noteon 07-25-2024 Urology Office/Clinic Note [...] with voice recognition artificial intelligence software, specifically [employer], [employer] and or [employer]. Substitutions may have occurred due to the [...] prostate) s/p radiation by Dr Galvez in [place] Unsure of year of treatment or initial [...] -PSA rev (more content not included)... Normal [facility] Comment on above: Result Comment: Elec tronically Signed By: BARB Salinas APRN, Anabel Anthony\.br\Date and Time Signed: 07/25/24 14:18 EST Operative Reporton Operative Report Operative Report Patient: YOANA IBRAHIM Age: 83 years Sex: Male : 1940 Associated Diagnoses: None Author: Petr PAINTING MD Procedure Operative Information Details: Date/ Time: 06/15/2024 18:01:00. 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 Post-Op Dx: Same. [...] Will try beta 3 agonists. . Normal [facility] Comment on above: Result Comment: Elec tronically Signed By: CINTHYA SANCHEZ, Petr Richard\.br\Date and Time Signed: 07/03/24 18:[address] cervical spine wo conon 1 CT cervical spine wo con [facility] [address] CT Scan Report Signed Patient: Yoana Ibrahim MR#: [id number] : 1940 Acct:[id number] Age/Sex: 83 / M ADM Date: 06/29/24 [facility] Type[facility] Attending Dr: Viky Rollins PA-C Copies to: Viky Rollins PA-C Ordering Provider: Viky Rollins PA-C Date of Service: 06/29/24 CT/CT cervical spine wo con: hyperreflexia, balance issues ([id number]) CT/CT head/brain wo con: balance issues, gait [...] Milan Dickerson M.D.06/29/2024 6:26 PM Dictation Location: [place] [address] Transcribed By: XAVIER 06/29/241825 Dictated By: Milan Dickerson II, MD 06/29/241820 Signed By: 06/29/241825 Normal [facility] Inpatient Patient Summaryon 06-15-2024 Inpatient Patient Summary Inpatient Patient Summary [facility] [address] [place], [place] [address] Clinical Summary Person Information Name: YOANA IBRAHIM Age: 83 Years : 1940 Sex: Male PCP: SHANIQUE ANDERSON DO Marital Status: Unknown Race: White Ethnicity: Non- or Language: Hungarian Visit Id: Visit Reason: HX OF PROSTATE CANCER, URINARY INCONTINENCE, BPH WITH LUTS Speciality: Acuity: Enc Type: Outpatient Med Service: Surgery Arrival: 06/15/2024 09:54:01 Discharge: Dispo Type: Address: [address] [place] [id number] Provider Notes: Diagnosis: Problems Active Flank pain [...] Mouth every day. potassium chloride (Potassium Chloride (Djr-Ehun-Hif 10) 10 mEq oral tablet, extended release) [...] an appoint (more content not included)... Normal [facility] Main OR Intraoperative Recor don 06-15-2024 Main OR Intraoperative Record Main OR Intraoperative Record IntraOp Document Type FTURO Summary Primary Physician: Petr PAINTING MD Finalized Date/Time: 06/15/24 10:42:27 Pt. Name: YOANA IBRAHIM/Sex: 1940 Male Med Rec #: [id number] Physician: Petr PAITNING MD Financial #: [id number] Pt. 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 Name: PATRICE YOANA Schmitt/Sex: 1940 Male Med Rec #: [id number] Physician: Petr PAINTING MD Financial #: [id number] Pt. Type: O Room/Bed: / Admit/Disch: 06/15/24 [...] Complaints of Pain: No Skin Integrity Intact, [place], Warm, & Dry Vitals - EU Blood Pressure 157/68 Pulse 71 bpm Respirations 18 br/min SPO2 98 % Additional None Specimens Collected Last Modified By: Rosita Russell LPN 06/15/24 10:17:30 Finalized By: Rosita Russell LPN Document Signatures Signed By: Rosita Russell LPN 06/15/24 10:17 Normal [facility] Outpatient Surgery Discharge Instructionon 06-15-2024 Outpatient Surgery Discharge Instruction Outpatient Surgery Discharge Instruction [place] [id number] Patient Discharge Instructions PERSON INFORMATION Name: YOANA [...] Date You may receive a survey from [employer] asking you to rate your care experience. Your feedback is important and will help us understand what we do well and how we can improve the quality of care we provide to you, your loved ones and our community. It?s an honor to serve you. Thank you for choosing [facility] Normal [facility] BNP ser/plasOrdered By: Genet Cartagena on 05-10-2024 Natriuretic peptide B (Bld) [Mass/Vol] 252.0 pg/mL High 5-100 [facility] Comment on above: Result Comment: PERF ORMED BY: [place] [address] PATHOLOGIST [employer] TONEY KWON M.D. Performed By: #### B MP, BNP #### [facility] [address] [place] [address] Basic Metabolic Panelon 04-14 GFR/1.73 sq M.predicted MDRD (S/P/Bld) [Vol rate/Area] 38.632 mL/min/{1.73_m2} Normal [facility] Comment on above: Performed By: #### B MP, BNP #### [facility] [address] [place] [address] [place] Calcium [Mass/volume] in Ser um or PlasmaOrdered By: Rosemary Cartagena on 05-10-2024 Calcium [Mass/Vol] 8.6 mg/dL Normal 8.6-10.3 [facility] Comment on above: Result Comment: PERF ORMED BY: [place] [address] PATHOLOGIST [employer] TONEY KWON M.D. Performed By: #### B MP, BNP #### [place] [address] [place] Carbon dioxide, total [Moles /volume] in Serum or PlasmaOrdered By: Rosemary Cartagena on 05-10-2024 CO2 [Moles/Vol] 29.1 mmol/L Normal 21.0-31.0 [facility] Comment on above: Performed By: #### B MP, BNP #### [facility] [address] [place] [address] [place] Chloride [Moles/volume] in S ric or PlasmaOrdered By: Rosemary Cartagena on 05-10-2024 Chloride [Moles/Vol] 107 mmol/L Normal 98-107 [facility] Comment on above: Performed By: #### B MP, BNP #### [facility] [address] [place] [address] [place] Creatinine [Mass/volume] in Serum or PlasmaOrdered By: Rosemary Cartagena on 05-10-2024 Creatinine [Mass/Vol] 1.75 mg/dL High 0.70-1.30 [facility] Comment on above: Performed By: #### B MP, BNP #### [address] Glucose [Mass/volume] in Ser um or PlasmaOrdered By: Rosemary Cartagena on 05-10-2024 Glucose [Mass/Vol] 286 mg/dL High 70-100 [facility] Comment on above: ADA recommended refe rence rangeRandom Glucose Reference Range is dependent on time and content of last meal. Glucose of more than 200 mg/dL in a nonstressed, ambulatory subject supports the diagnosis of Diabetes Mellitus. Result Comment: [place] om Glucose Reference Range is dependent on time and content of last meal. Glucose of more than 200 mg/dL in a nonstressed, ambulatory subject supports the diagnosis of Diabetes Mellitus. ADA recommended reference range Performed By: #### B MP, BNP #### [address] No Panel InformationOrdered By: Rosemary Cartagena on 05-10-2024 Estimated GFR (CKD-EPI) 38.632 mL/Min [facility] Creatinine Clearance (Chem N/A [facility] Potassium [Moles/volume] in Serum or PlasmaOrdered By: Rosemary Cartagena on 05-10-2024 Potassium [Moles/Vol] 4.7 mmol/L Normal 3.5-5.1 [facility] Comment on above: Performed By: #### B MP, BNP #### [address] Serum or plasma anion gap de terminationOrdered By: Rosemary Cartagena on 05-10-2024 Anion gap [Moles/Vol] 11.6 mmol/L Normal 6.0-15.0 [facility] Comment on above: Performed By: #### B MP, BNP #### [address] Sodium [Moles/volume] in Ser um or PlasmaOrdered By: Rosemary Cartagena on 05-10-2024 Sodium [Moles/Vol] 143 mmol/L Normal 136-145 [facility] Comment on above: Performed By: #### B MP, BNP #### [facility] [address] [place] [address] [place] Urea nitrogen [Mass/volume] in Serum or PlasmaOrdered By: Rosemary Cartagena on 05-10-2024 Urea nitrogen [Mass/Vol] 38 mg/dL High 7-25 [facility] Comment on above: Performed By: #### B MP, BNP #### [facility] [address] [place] [address] [place] Calcium [Mass/volume] in Ser um or PlasmaOrdered By: Saira Heart on 02-18-2024 Calcium [Mass/Vol] 9.6 mg/dL 8.6-10.3 [facility] Carbon dioxide, total [Moles /volume] in Serum or PlasmaOrdered By: Saira Heart on 02-18-2024 CO2 [Moles/Vol] 30.8 mmol/L 21.0-31.0 [facility] Chloride [Moles/volume] in S ric or PlasmaOrdered By: Saira Heart on 02-18-2024 Chloride [Moles/Vol] 103 mmol/L 98-107 [facility] Creatinine [Mass/volume] in Serum or PlasmaOrdered By: Saira Heart on 02-18-2024 Creatinine [Mass/Vol] 1.63 mg/dL High 0.70-1.30 [facility] Glucose [Mass/volume] in Ser um or PlasmaOrdered By: Saira Heart on 02-18-2024 Glucose [Mass/Vol] 165 mg/dL High 70-100 [facility] Comment on above: ADA recommended refe rence rangeRandom Glucose Reference Range is dependent on time and content of last meal. Glucose of more than 200 mg/dL in a nonstressed, ambulatory subject supports the diagnosis of Diabetes Mellitus. No Panel InformationOrdered By: Saira Heart on 02-18-2024 Estimated GFR (CKD-EPI) 42.069 mL/Min [facility] Creatinine Clearance (Chem N/A [facility] Potassium [Moles/volume] in Serum or PlasmaOrdered By: Saira Heart on 02-18-2024 Potassium [Moles/Vol] 4.5 mmol/L 3.5-5.1 [facility] Serum or plasma anion gap de terminationOrdered By: Saira Heart on 02-18-2024 Anion gap [Moles/Vol] 10.7 mmol/L 6.0-15.0 [facility] Sodium [Moles/volume] in Ser um or PlasmaOrdered By: Saira Heart on 02-18-2024 Sodium [Moles/Vol] 140 mmol/L 136-145 [facility] Urea nitrogen [Mass/volume] in Serum or PlasmaOrdered By: Saira Heart on 02-18-2024 Urea nitrogen [Mass/Vol] 26 mg/dL High 7- [facility] Alanine aminotransferase [En zymatic activity/volume] in Serum or PlasmaOrdered By: Rosemary Cartagena on 12-03-2023 ALT [Catalytic activity/Vol] 12 U/L 7-52 [facility] Albumin [Mass/volume] in Ser um or Plasma by Bromocresol green (BCG) dye binding methoOrdered By: Rosemary Cartagena on 12-03-2023 Albumin BCG dye [Mass/Vol] 4.1 g/dL 3.5-5.7 [facility] Alkaline phosphatase [Enzyma tic activity/volume] in Serum or PlasmaOrdered By: Rosemary Cartagena on 12-03-2023 ALP [Catalytic activity/Vol] 89 U/L 34-104 [facility] Aspartate aminotransferase [ Enzymatic activity/volume] in Serum or PlasmaOrdered By: Rosemary Cartagena on 12-03-2023 AST [Catalytic activity/Vol] 23 U/L 13-39 [facility] Bilirubin.total [Mass/volume ] in Serum or PlasmaOrdered By: Rosemary Cartagena on 12-03-2023 Bilirubin [Mass/Vol] 0.7 mg/dL 0.3-1.0 [facility] Calcium [Mass/volume] in Ser um or PlasmaOrdered By: Rosemary Cartagena on 12-03-2023 Calcium [Mass/Vol] 9.6 mg/dL 8.6-10.3 [facility] Carbon dioxide, total [Moles /volume] in Serum or PlasmaOrdered By: Rosemary Cartagena on 12-03-2023 CO2 [Moles/Vol] 34.3 mmol/L 21.0-31.0 [facility] Chloride [Moles/volume] in S ric or PlasmaOrdered By: Rosemary Cartagena on 12-03-2023 Chloride [Moles/Vol] 103 mmol/L 98-107 [facility] Cholesterol [Mass/volume] in Serum or PlasmaOrdered By: Rosemary Cartagena on 12-03-2023 Cholesterol [Mass/Vol] 127 mg/dL 140-200 [facility] Comment on above: Chol less than 200 m g/dl low riskChol 201-239 mg/dl borderline riskChol 240 mg/dl and greater high risk Cholesterol in LDL Calc [Mas s/Vol]Ordered By: Rosemary Cartagena on 12-03-2023 Cholesterol in LDL [Mass/Vol] 29 mg/dL 0-100 [facility] Comment on above: LDL ATP III CLASSIFI CATIONLDL less than 100 mg/dL OptimalLDL 100-129 mg/dL Near or above optimalLDL 130-159 mg/dL Borderline highLDL 160-189 mg/dL HighLDL greater than 189 mg/dL Very high Cholesterol in VLDL Calc [Ma ss/Vol]Ordered By: Rosemary Cartagena on 12-03-2023 Cholesterol in VLDL [Mass/Vol] 62 mg/dL [facility] Creatinine [Mass/volume] in Serum or PlasmaOrdered By: Rosemary Cartagena on 12-03-2023 Creatinine [Mass/Vol] 1.25 mg/dL 0.70-1.30 [facility] Globulin Calc (S) [Mass/Vol] Ordered By: Rosemary Cartagena on 12-03-2023 Globulin (S) [Mass/Vol] 2.5 g/dL [facility] Glucose [Mass/volume] in Ser um or PlasmaOrdered By: Rosemary Cartagena on 12-03-2023 Glucose [Mass/Vol] 155 mg/dL 70-100 [facility] Comment on above: ADA recommended refe [...] from glycated hemoglobin (Bld) [Mass/Vol] 143 mg/dL [facility] Hemoglobin A1c percentageOrd ered By: Rosemary Cartagena on 12-03-2023 HbA1c (Bld) [Mass fraction] 6.6 % 4.3-5.6 [facility] Comment on above: Increased risk for d iabetes: 5.7 - 6.4diabetes: >6.4glycemic control for adults with diabetes: <7.0 Natriuretic peptide B [Mass/ Vol]Ordered By: Rosemary Cartagena on 12-03-2023 Natriuretic peptide B (Bld) [Mass/Vol] 316.0 pg/mL [facility] No Panel InformationOrdered By: Rosemary Cartagena on 12-03-2023 Estimated GFR (CKD-EPI) 58.211 mL/Min [facility] Creatinine Clearance (Chem N/A [facility] Potassium [Moles/volume] in Serum or PlasmaOrdered By: Rosemary Cartagena on 12-03-2023 Potassium [Moles/Vol] 4.2 mmol/L 3.5-5.1 [facility] Protein [Mass/volume] in Ser um or PlasmaOrdered By: Rosemary Cartagena on 12-03-2023 Protein [Mass/Vol] 6.6 g/dL 6.4-8.9 [facility] Serum or plasma albumin/glob ulin mass ratioOrdered By: Rosemary Cartagena on 12-03-2023 Albumin/Globulin [Mass ratio] 1.6 {ratio} [facility] Serum or plasma anion gap de terminationOrdered By: Rosemary Cartagena on 12-03-2023 Anion gap [Moles/Vol] 8.9 mmol/L 6.0-15.0 [facility] Serum or plasma high density lipoprotein (HDL) cholesterol measurementOrdered By: Rosemary Cartagena on 12-03-2023 Cholesterol in HDL [Mass/Vol] 35 mg/dL [facility] Comment on above: HDL CHOL ATP-III CLA SSIFICATION Cardiovascular RiskHDL > or equal to 60 mg/dL LOWHDL < 40 mg/dL HIGH Serum or plasma total choles terol/high density lipoprotein (HDL) cholesterol mass ratOrdered By: Rosemary Cartagena on 12-03-2023 Cholesterol.total/Chol esterol in HDL [Mass ratio] 3.6 {ratio} <5.0 [facility] Sodium [Moles/volume] in Ser um or PlasmaOrdered By: Rosemary Cartagena on 12-03-2023 Sodium [Moles/Vol] 142 mmol/L 136-145 [facility] Thyrotropin [Units/volume] i n Serum or PlasmaOrdered By: Rosemary Cartagena on 12-03-2023 TSH Qn 3.73 m[IU]/L 0.45-5.33 [facility] Triglyceride [Mass/volume] i n Serum or PlasmaOrdered By: Rosemary Cartagena on 12-03-2023 Triglyceride [Mass/Vol] 314 mg/dL 0-149 [facility] Comment on above: TRIG ATP III CLASSIF ICATIONTRIG less than 150 mg/dL NormalTRIG 150-199 mg/dL Borderline highTRIG 200-500 mg/dL High TRIG greater than 500 mg/dL Very highStandard traceable to the Center for Disease Conrtrol and Prevention (CDC) test method. Triiodothyronine (T3) [Mass/ volume] in Serum or PlasmaOrdered By: Rosemary Cartagena on 12-03-2023 T3 [Mass/Vol] 0.93 ng/mL 0.87-1.78 [facility] Urea nitrogen [Mass/volume] in Serum or PlasmaOrdered By: Rosemary Cartagena on 12-03-2023 Urea nitrogen [Mass/Vol] 28 mg/dL 04-06 [facility] Alanine aminotransferase [En zymatic activity/volume] in Serum or PlasmaOrdered By: Rosemary Cartagena on 09-02-2023 ALT [Catalytic activity/Vol] 12 U/L [facility] Albumin [Mass/volume] in Ser um or Plasma by Bromocresol green (BCG) dye binding methoOrdered By: Rosemary Cartagena on 09-02-2023 Albumin BCG dye [Mass/Vol] 4.0 g/dL 3.5-5.7 [facility] Alkaline phosphatase [Enzyma tic activity/volume] in Serum or PlasmaOrdered By: Rosemary Cartagena on 09-02-2023 ALP [Catalytic activity/Vol] 74 U/L 34-104 [facility] Aspartate aminotransferase [ Enzymatic activity/volume] in Serum or PlasmaOrdered By: Rosemary Cartagena on 09-02-2023 AST [Catalytic activity/Vol] 17 U/L 13-39 [facility] Bilirubin.total [Mass/volume ] in Serum or PlasmaOrdered By: Rosemary Cartagena on 09-02-2023 Bilirubin [Mass/Vol] 0.6 mg/dL 0.3-1.0 [facility] Calcium [Mass/volume] in Ser um or PlasmaOrdered By: Rosemary Cartagena on 09-02-2023 Calcium [Mass/Vol] 8.9 mg/dL 8.6-10.3 [facility] Carbon dioxide, total [Moles /volume] in Serum or PlasmaOrdered By: Rosemary Cartagena on 09-02-2023 CO2 [Moles/Vol] 30.5 mmol/L 21.0-31.0 [facility] Chloride [Moles/volume] in S ric or PlasmaOrdered By: Rosemary Cartagena on 09-02-2023 Chloride [Moles/Vol] 106 mmol/L 98-107 [facility] Cholesterol [Mass/volume] in Serum or PlasmaOrdered By: Rosemary Cartagena on 09-02-2023 Cholesterol [Mass/Vol] 139 mg/dL 140-200 [facility] Comment on above: Chol less than 200 m g/dl low riskChol 201-239 mg/dl borderline riskChol 240 mg/dl and greater high risk Cholesterol in LDL Calc [Mas s/Vol]Ordered By: Rosemary Cartagena on 09-02-2023 Cholesterol in LDL [Mass/Vol] 56 mg/dL 0-100 [facility] Comment on above: LDL ATP III CLASSIFI CATIONLDL less than 100 mg/dL OptimalLDL 100-129 mg/dL Near or above optimalLDL 130-159 mg/dL Borderline highLDL 160-189 mg/dL HighLDL greater than 189 mg/dL Very high Cholesterol in VLDL Calc [Ma ss/Vol]Ordered By: Rosemary Cartagena on 09-02-2023 Cholesterol in VLDL [Mass/Vol] 51 mg/dL [facility] Creatinine [Mass/volume] in Serum or PlasmaOrdered By: Rosemary Cartagena on 09-02-2023 Creatinine [Mass/Vol] 1.10 mg/dL 0.70-1.30 [facility] Globulin Calc (S) [Mass/Vol] Ordered By: Rosemary Cartagena on 09-02-2023 Globulin (S) [Mass/Vol] 2.4 g/dL [facility] Glucose [Mass/volume] in Ser um or PlasmaOrdered By: Rosemary Cartagena on 09-02-2023 Glucose [Mass/Vol] 126 mg/dL 70-100 [facility] Comment on above: ADA recommended refe [...] from glycated hemoglobin (Bld) [Mass/Vol] 148 mg/dL [facility] Hemoglobin A1c percentageOrd ered By: Rosemary Cartagena on 09-02-2023 HbA1c (Bld) [Mass fraction] 6.8 % 4.3-5.6 [facility] Comment on above: Increased risk for d iabetes: 5.7 - 6.4diabetes: >6.4glycemic control for adults with diabetes: <7.0 Natriuretic peptide B [Mass/ Vol]Ordered By: Rosemary Cartagena on 09-02-2023 Natriuretic peptide B (Bld) [Mass/Vol] 229.0 pg/mL 5-100 [facility] No Panel InformationOrdered By: Rosemary Cartagena on 09-02-2023 Estimated GFR (CKD-EPI) > 60.0 mL/Min [facility] Creatinine Clearance (Chem N/A [facility] Potassium [Moles/volume] in Serum or PlasmaOrdered By: Rosemary Cartagena on 09-02-2023 Potassium [Moles/Vol] 3.9 mmol/L 3.5-5.1 [facility] Protein [Mass/volume] in Ser um or PlasmaOrdered By: Rosemary Cartagena on 09-02-2023 Protein [Mass/Vol] 6.4 g/dL 6.4-8.9 [facility] Serum or plasma albumin/glob ulin mass ratioOrdered By: Rosemary Cartagena on 09-02-2023 Albumin/Globulin [Mass ratio] 1.7 {ratio} [facility] Serum or plasma anion gap de terminationOrdered By: Rosemary Cartagena on 09-02-2023 Anion gap [Moles/Vol] TNP [facility] Comment on above: Test not performed Serum or plasma high density lipoprotein (HDL) cholesterol measurementOrdered By: Rosemary Cartagena on 09-02-2023 Cholesterol in HDL [Mass/Vol] 31 mg/dL 23-92 [facility] Comment on above: HDL CHOL ATP-III CLA SSIFICATION Cardiovascular RiskHDL > or equal to 60 mg/dL LOWHDL < 40 mg/dL HIGH Serum or plasma total choles terol/high density lipoprotein (HDL) cholesterol mass ratOrdered By: Rosemary Cartagena on 09-02-2023 Cholesterol.total/Chol esterol in HDL [Mass ratio] 4.5 {ratio} <5.0 [facility] Sodium [Moles/volume] in Ser um or PlasmaOrdered By: Rosemary Cartagena on 09-02-2023 Sodium [Moles/Vol] 141 mmol/L 136-145 [facility] TRANSTHORACIC ECHO (TTE) COM PLETEon 09-02-2023 TRANSTHORACIC ECHO (TTE) COMPLETE [address], [address], [place] [address] TRANSTHORACIC ECHOCARDIOGRAM REPORT Patient Name: YOANA Zurita Physician: [id number] Syed Flores MD, [facility] Study Date: 09/02/2023 Ordering Provider: [id number] ROSEMARY CARTAGENA MRN/PID: [id number] Fellow: Nurse: Date of /Age: 4 1940 / 82 years [employer] Operator: Sobeida Juarez RDCS, RVT Gender: M Additional Staff: Height: 167.64 cm Admit Date: Weight: 87.09 kg Admission Status: BSA: 1.97 m2 Department Location: [facility] Blood Pressure: 112 /74 mmHg Study Type: TRANSTHORACIC ECHO (TTE) COMPLETE Diagnosis/ICD: Abnormal electrocardiogram [ECG] [EKG]-R94.31; Sleep apnea, unspecified-G47.30; Permanent AFib-I48.21; Shortness of breath-R06.02 Indication: Sick Sinus Syndrome, Pacemaker/AICD, CHF, Diabetes, HTN, Hyperlipidemia, CABG, Former Smoker, Ischemic Cardiomyopathy, TIA-2017, History of Left UE DVT, Prostate Cancer CPT Codes: Echo Complete w Full Doppler-21630 Study Detail: The following Echo studies were [...] 0.6 m/s (0.6-0.9m/s) PV Max P.3 mmHg [id number] Syed Flores MD, FACC Electronically signed on 09/02/2023 at 5:11:22 PM Final Normal [facility] Thyrotropin [Units/volume] i n Serum or PlasmaOrdered By: Rosemary Cartagena on 09-02-2023 TSH Qn 4.72 m[IU]/L 0.45-5.33 [facility] Triglyceride [Mass/volume] i n Serum or PlasmaOrdered By: Rosemary Cartagena on 09-02-2023 Triglyceride [Mass/Vol] 259 mg/dL 0-149 [facility] Comment on above: TRIG ATP III CLASSIF ICATIONTRIG less than 150 mg/dL NormalTRIG 150-199 mg/dL Borderline highTRIG 200-500 mg/dL High TRIG greater than 500 mg/dL Very highStandard traceable to the Center for Disease Conrtrol and Prevention (CDC) test method. Triiodothyronine (T3) [Mass/ volume] in Serum or PlasmaOrdered By: Rosemary Cartagena on 09-02-2023 T3 [Mass/Vol] 0.70 ng/mL 0.87-1.78 [facility] US Heart TransthoracicOrdere d By: Syed Flores on 09-02-2023 Aortic Valve Area by Continuity of Peak Velocity 2.14 [facility] Work Phone: Aortic Valve Area by Continuity of VTI 2.09 [facility] Work Phone: [phone] AV mn grad 3.0 [facility] Work Phone: [phone] AV pk grad 7.3 [facility] Work Phone: [phone] AV pk diamond 1.35 [facility] Work Phone: [phone] LV A4C EF 14.5 [facility] Work Phone: [phone] LVIDd 5.30 [facility] Work Phone: [phone] LVOT diam 2.10 [facility] Work Phone: [phone] RVSP 38.8 [facility] Work Phone: [phone] [facility] Work Phone: [phone] Heart Transthoracicon [address], [place] [address] TRANSTHORACIC ECHOCARDIOGRAM REPORT Patient Name: YOANA IBRAHIM [place] Physician: [id number] Syed Flores MD, [facility] Study Date: 09/02/2023 Ordering Provider: [id number] ROSEMARY CARTAGENA MRN/PID: [id number] Fellow: Nurse: Date of /Age: 4 1940 / 82 years [employer] Operator: Sobeida Juarez RDCS, RVT Gender: M Additional Staff: Height: 167.64 cm Admit Date: Weight: 87.09 kg Admission Status: BSA: 1.97 m2 Department Location: [facility] Blood Pressure: 112 /74 mmHg Study Type: TRANSTHORACIC ECHO (TTE) COMPLETE Diagnosis/ICD: Abnormal electrocardiogram [ECG] [EKG]-R94.31; Sleep apnea, unspecified-G47.30; Permanent AFib-I48.21; Shortness of breath-R06.02 Indication: Sick Sinus Syndrome, Pacemaker/AICD, CHF, Diabetes, HTN, Hyperlipidemia, CABG, Former Smoker, Ischemic Cardiomyopathy, TIA-2017, History of Left UE DVT, Prostate Cancer CPT Codes: Echo Complete w Full Doppler-25485 Study Detail: The following Echo studies were [...] included)... Syed Simeon M D - 09/02/[address], [place] [address] TRANSTHORACIC ECHOCARDIOGRAM REPORT Patient Name: YOANA Zurita Physician: [id number] Syed Flores MD, [facility] Study Date: 09/02/2023 Ordering Provider: [id number] RSOEMARY CARTAGENA MRN/PID: [id number] Fellow: Nurse: Date of /Age: 4 1940 / 82 years [employer] Operator: Sobeida Juarez RDCS, RVT Gender: M Additional Staff: Height: 167.64 cm Admit Date: Weight: 87.09 kg Admission Status: BSA: 1.97 m2 Department Location: [facility] Blood Pressure: 112 /74 mmHg Study Type: TRANSTHORACIC ECHO (TTE) COMPLETE Diagnosis/ICD: Abnormal electrocardiogram [ECG] [EKG]-R94.31; Sleep apnea, unspecified-G47.30; Permanent AFib-I48.21; Shortness of breath-R06.02 Indication: Sick Sinus Syndrome, Pacemaker/AICD, CHF, Diabetes, HTN, Hyperlipidemia, CABG, Former Smoker, Ischemic Cardiomyopathy, TIA-2017, History of Left UE DVT, Prostate Cancer CPT Codes: Echo Complete w Full Doppler-61866 Study Detail: The following Echo studies were [...] PV Max PG: (more content not included)... [facility] Work Phone: Urea nitrogen [Mass/volume] in Serum or PlasmaOrdered By: Rosemary Cartagena on 09-02-2023 Urea nitrogen [Mass/Vol] 21 mg/dL 04-06 [facility] ECG 12 Leadon 09-01-2023 Atrial fibrillation. Towards the second half of the EKG patient goes into ventricular paced rhythm. When not paced QRS duration [address]-T abnormality in the inferior leads when paced QRS duration 180 ms. QTc 400 ms [facility] Work Phone: OVA AND PARASITE EXAMINATION on 12-23-2021 Ova + Parasite Exam Final report Normal [facility] Comment on above: Result Comment: Thes e results were obtained using wet preparation(s) and trichrome stained smear. This test does not include testing for Cryptosporidium parvum, Cyclospora, or Microsporidia. Performed By: #### O VAPE #### [facility] [address] [place] [address] Dr. Mely Avery Result 1 Comment Normal [facility] Comment on above: Result Comment: No o va, cysts, or parasites seen. . One negative specimen does not rule out the possibility of a parasitic infection. Performed By: #### O VAPE #### [facility] [address] [place], [place] [address] Dr. Mely Avery STOOL CULTUREon 12-20-2021 Campylobacter Culture Final report Normal [facility] Comment on above: Performed By: #### C XSTOOL #### [facility] [address] [place] [address] [address] Mely Avery E coli Shiga Toxin EIA Negative Normal Negative [facility] Comment on above: Performed By: #### C XSTOOL #### [facility] [address] [place], [place] [address] Dr. Mely Avery Result 1 Comment Normal [facility] Comment on above: Result Comment: No S almonella or Shigella recovered. Performed By: #### C XSTOOL #### [facility] [address] [place], [place] [address] Dr. Mely Avery Result Comment: No C ampylobacter species isolated. Salmonella/Shigella Screen Final report Normal [facility] Comment on above: Performed By: #### C XSTOOL #### [facility] [address] [place], [place] [address] Dr. Mely Avery C. DIFF PCRon 12-16-2021 C. DIFFICILE PCR Negative Normal NEGATIVE [facility] Comment on above: Performed By: #### C DIFPOC #### [facility] [address] [place], [place] [address] Dr. Mely Avery XR lumbar spine 6V w bending on 07-25-2021 XR lumbar spine 6V w bending [facility] [employer] Other XR lumbar spine 6V w bending [facility] [employer] Other XR lumbar spine 6V w bending [address] [place] [address] [employer] Other XR lumbar spine 6[place] [address] [employer] Other XR lumbar spine 6V w bending XRay Report [employer] Other XR lumbar spine 6V w bending Signed [employer] Other XR lumbar spine 6V w bending Patient: Yoana Ibrahim MR#: [id number] [employer] Other XR lumbar spine 6V w bending 9840 [employer] Other XR lumbar spine 6V w bending : 1940 Acct:[id number] [employer] Other XR lumbar spine 6V w bending Age/Sex: 80 / M ADM Date: 07/25/21 [employer] Other XR lumbar spine 6V w bending Loc: [place] Room: Type: [facility] [employer] Other XR lumbar spine 6V w bending Attending Dr: Osvaldo Maciel MD [employer] Other XR lumbar spine 6V w bending Ordering Provider: Osvaldo Maciel MD [employer] Other XR lumbar spine 6V w bending Date of Service: 07/25/21 [employer] Other XR lumbar spine 6V w bending XR/XR lumbar spine 6V w bending: M48.062, M43.16 M51.36 [employer] Other XR lumbar spine 6V w bending Copies to: Osvaldo Maciel MD [employer] Other XR lumbar spine 6V w bending LUMBAR SPINE WITH FLEXION, EXTENSION AND BENDING VIEWS- 6 views: [employer] Other XR lumbar spine 6V w bending CLINICAL HISTORY: Pain at the mid back when bending or standing up straight. No injury. [employer] Other XR lumbar spine 6V w bending COMPARISON: CT myelogram 07/01/2021 [employer] Other XR lumbar spine 6V w bending AP neutral, right and left bending as well as lateral views in neutral, flexion and extension were [employer] Other XR lumbar spine 6V w bending obtained. There is osteopenia. 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 There is minimal ret [employer] Other XR lumbar spine 6V w bending rolisthesis of L1 on L2 and L2 on L3. There is approximately 5 mm of anterolisthesis of L4 on L5. [employer] Other XR lumbar spine 6V w bending Alignment does not change significantly with flexion or extension. No acute fractures are present. [employer] Other XR lumbar spine 6V w bending There is slight disc space narrowing, greatest at L2-3 and the lumbosacral junction. There is [employer] Other XR lumbar spine 6V w bending endplate spurring, greater proximally and facet hypertrophy, greater distally. The SI joints show [employer] Other XR lumbar spine 6V w bending mild sclerosis. There is a bladder stimulator traversing a sacral foramen on the right. There is [employer] Other XR lumbar spine 6V w bending atherosclerotic plaque at the aorta and iliac arteries. [employer] Other XR lumbar spine 6V w bending XR/XR lumbar spine 6V w bending [employer] Other XR lumbar spine 6V w bending IMPRESSION: [employer] Other XR lumbar spine 6V w bending OSTEOPENIA, SCOLIOSIS AND DEGENERATIVE CHANGES, DESCRIBED [employer] Other XR lumbar spine 6V w bending Impression dictated by: Basilia Guevara M.D.07/25/2021 4:06 PM [employer] Other XR lumbar spine 6V w bending Dictation Location: [place] [address] [employer] Other XR lumbar spine 6V w bending Transcribed By: [facility] 07/25/21 [facility] [employer] Other XR lumbar spine 6V w bending Dictated By: Basilia Guevara MD 07/25/21 [facility] [employer] Other XR lumbar spine 6V w bending Signed By: [employer] Other XR lumbar spine 6V w bending 07/25/21 [facility]4 [employer] Other Basic Metabolic Panelon 10-0 Anion gap [Moles/Vol] 11 mmol/L 9 - 17 mmol/L [facility] [place] Bun/Cre Ratio NOT REPORTED [facility] [place] Calcium [Mass/Vol] 8.3 mg/dL Low 8.6 - 10. 4 mg/dL [place] Chloride [Moles/Vol] 104 mmol/L 98 - 10 7 mmol/L [place] CO2 [Moles/Vol] 26 mmol/L 20 - 31 mmol/L [place] Creatinine [Mass/Vol] 1.12 mg/dL 0.7 - 1.2 mg/dL [place] GFR >60 >60 mL/min [place] GFR Non- >60 >60 mL/min [place] GFR/1.73 sq M predicted among non-blacks MDRD (S/P/Bld) [Vol rate/Area] [place] Comment on above: Average GFR for 70 o r more years old: 75 mL/min/1.73sq m Chronic Kidney Disease: <60 mL/min/1.73sq m Kidney failure: <15 mL/min/1.73sq m eGFR calculated using average adult body mass. Additional eGFR calculator available at: http://www.Graffiti/multiple_crcl_2012.htm GFR/1.73 sq M predicted among non-blacks MDRD (S/P/Bld) [Vol rate/Area] NOT REPORTED [place] Glucose [Mass/Vol] 111 mg/dL High 70 - 99 mg/dL [place] Interpretation and review of laboratory results Abnormal [place] Potassium [Moles/Vol] 4.0 mmol/L 3.7 - 5.3 mmol/L [place] Sodium [Moles/Vol] 141 mmol/L 135 - 144 mmol/L [place] Urea nitrogen [Mass/Vol] 26 mg/dL High 8 - 23 mg/dL [place] Basic Metabolic Profon 06-13 (cont.) Normal [facility] Comment on above: Result Comment: Aver age GFR for 70 or more years old: 75 mL/min/1.73sq m Chronic Kidney Disease: <60 mL/min/1.73sq m Kidney failure: <15 mL/min/1.73sq m eGFR calculated using average adult body mass. Additional eGFR calculator available at: http://www.Mpayy.com/multiple_crcl_2012.htm Performed By: #### C BC, BMP, MG, GLYHGB #### [facility] [address] [place] [address] Facility Maintenance Helper: Bradley Richey MD Anion gap [Moles/Vol] 11 mmol/L Normal 9-17 [facility] Comment on above: Performed By: #### C BC, BMP, MG, GLYHGB #### [facility] [address] [place] [address] Facility Maintenance Helper: Bradley Richey MD Calcium [Mass/Vol] 8.3 mg/dL Low 8.6-10.4 [facility] Comment on above: Performed By: #### C BC, BMP, MG, GLYHGB #### [address] [address] Facility Maintenance Helper: Bradley Richey MD Chloride [Moles/Vol] 104 mmol/L Normal 98-107 [facility] Comment on above: Performed By: #### C BC, BMP, MG, GLYHGB #### [facility] [address] [place] [address] Facility Maintenance Helper: Bradley Richey MD CO2 [Moles/Vol] 26 mmol/L Normal 20-31 [facility] Comment on above: Performed By: #### C BC, BMP, MG, GLYHGB #### [facility] [address] [place] [address] Facility Maintenance Helper: Bradley Richey MD Creatinine [Mass/Vol] 1.12 mg/dL Normal 0.70-1.20 [facility] Comment on above: Performed By: #### C BC, BMP, MG, GLYHGB #### [facility] [address] [place] [address] Facility Maintenance Helper: Bradley Richey MD GFR, Amer >60 Normal >60 [facility] Comment on above: Performed By: #### C BC, BMP, MG, GLYHGB #### [facility] [address] [place] [address] Facility Maintenance Helper: Bradley Richey MD GFR,non Amer >60 Normal >60 [facility] Comment on above: Performed By: #### C BC, BMP, MG, GLYHGB #### [facility] [address] [place] [address] Facility Maintenance Helper: Bradley Richey MD Glucose [Mass/Vol] 111 mg/dL High 70-99 [facility] Comment on above: Performed By: #### C BC, BMP, MG, GLYHGB #### [facility] [address] [place] [address] Facility Maintenance Helper: Bradley Richey MD Potassium [Moles/Vol] 4.0 mmol/L Normal 3.7-5.3 [facility] Comment on above: Performed By: #### C BC, BMP, MG, GLYHGB #### [facility] [address] [place] [address] Facility Maintenance Helper: Bradley Richey MD Sodium [Moles/Vol] 141 mmol/L Normal 135-144 [facility] Comment on above: Performed By: #### C BC, BMP, MG, GLYHGB #### [facility] [address] [place] [address] Facility Maintenance Helper: Bradley Richey MD Urea nitrogen [Mass/Vol] 26 mg/dL High 8-23 [facility] Comment on above: Performed By: #### C BC, BMP, MG, GLYHGB #### [facility] [address] [place] [address] Facility Maintenance Helper: Bradley Richey MD BUN/CRE Ratio NOT REPORTED Normal 9-20 [facility] Comment on above: Performed By: #### C BC, BMP, MG, GLYHGB #### [facility] [address] [place] [address] Facility Maintenance Helper: Bradley Richey MD Staging: NOT REPORTED Normal [facility] Comment on above: Performed By: #### C BC, BMP, MG, GLYHGB #### [address] [address] Facility Maintenance Helper: Bradley Richey MD CBCon 06-13-2019 Erythrocyte distribution width (RBC) [Ratio] 13.0 % Normal 11.8-14.4 [facility] Comment on above: Performed By: #### C BC, BMP, MG, GLYHGB #### [address] [address] Facility Maintenance Helper: Bradley Richey MD Hematocrit (Bld) [Volume fraction] 36.6 % Low 40.7-50.3 [facility] Comment on above: Performed By: #### C BC, BMP, MG, GLYHGB #### [address] [address] Facility Maintenance Helper: Bradley Richey MD Hemoglobin (Bld) [Mass/Vol] 11.8 g/dL Low 13.0-17.0 [facility] Comment on above: Performed By: #### C BC, BMP, MG, GLYHGB #### [facility] [address] [place] [address] Facility Maintenance Helper: Bradley Richey MD MCH (RBC) [Entitic mass] 33.1 pg Normal 25.2-33.5 [facility] Comment on above: Performed By: #### C BC, BMP, MG, GLYHGB #### [facility] [address] [place] [address] Facility Maintenance Helper: Bradley Richey MD MCHC (RBC) [Mass/Vol] 32.2 g/dL Normal 28.4-34.8 [facility] Comment on above: Performed By: #### C BC, BMP, MG, GLYHGB #### [facility] [address] [place] [address] Facility Maintenance Helper: Bradley Richey MD MCV (RBC) [Entitic vol] 102.5 fL Normal 82.6-102.9 [facility] Comment on above: Performed By: #### C BC, BMP, MG, GLYHGB #### [facility] [address] [place] [address] Facility Maintenance Helper: Bradley Richey MD NRBC Automated 0.0 per 100 WBC Normal 0.0 [facility] Comment on above: Performed By: #### C BC, BMP, MG, GLYHGB #### [facility] [address] [place] [address] Facility Maintenance Helper: Bradley Richey MD Platelet mean volume (Bld) [Entitic vol] 9.8 fL Normal 8.1-13.5 [facility] Comment on above: Performed By: #### C BC, BMP, MG, GLYHGB #### [facility] [address] [place] [address] Facility Maintenance Helper: Bradley Richey MD Platelets (Bld) [#/Vol] 174 10*3/uL Normal 138-453 [facility] Comment on above: Performed By: #### C BC, BMP, MG, GLYHGB #### [facility] [address] [place] [address] Facility Maintenance Helper: Bradley Richey MD RBC (Bld) [#/Vol] 3.57 10*6/uL Low 4.21-5.77 [facility] Comment on above: Performed By: #### C BC, BMP, MG, GLYHGB #### [facility] [address] [place] [address] Facility Maintenance Helper: Bradley Richey MD WBC (Bld) [#/Vol] 8.7 10*3/uL Normal 3.5-11.3 [facility] Comment on above: Performed By: #### C BC, BMP, MG, GLYHGB #### [facility] [address] [place] [address] Facility Maintenance Helper: Bradley Richey MD Erythrocyte distribution width (RBC) [Ratio] 13.0 % 11.8 - 14.4 % [place] Hematocrit (Bld) [Volume fraction] 36.6 % Low 40.7 - 50.3 % [place] Hemoglobin (Bld) [Mass/Vol] 11.8 g/dL Low 13 - 17 g/dL [place] Interpretation and review of laboratory results Abnormal [place] MCH (RBC) [Entitic mass] 33.1 pg 25.2 - 33.5 pg [place] MCHC (RBC) [Mass/Vol] 32.2 g/dL 28.4 - 34.8 g/dL [place] MCV (RBC) [Entitic vol] 102.5 fL 82.6 - 102.9 fL [place] Platelet mean volume (Bld) [Entitic vol] 9.8 fL 8.1 - 13.5 fL [place] Platelets (Bld) [#/Vol] 174 10*3/uL [place] RBC (Bld) [#/Vol] 3.57 10*6/uL Low 4.21 - 5.77 m/uL [place] WBC (Bld) [#/Vol] 0.0 10*3/uL 0.0 per 100 WBC [place] WBC (Bld) [#/Vol] 8.7 10*3/uL [place] HEMOGLOBIN A1Con 06-13-2019 Glucose [Mass/Vol] 143 mg/dL [place] Comment on above: The ADA and AACC rec ommend providing the estimated average glucose result to permit better patient understanding of their HBA1c result. HbA1c (Bld) [Mass fraction] 6.6 % High 4 - 6 % [place] Interpretation and review of laboratory results Abnormal [place] Hemoglobin A1Con 06-13-2019 HbA1c (Bld) [Mass fraction] 6.6 % High 4.0-6.0 [facility] Comment on above: Performed By: #### C BC, BMP, MG, GLYHGB #### [facility] [address] [place] [address] Facility Maintenance Helper: Bradley Richey MD HbA1c (Bld) [Mass fraction] 143 mg/dL Normal [facility] Comment on above: Result Comment: The ADA and AACC recommend providing the estimated average glucose result to permit better patient understanding of their HBA1c result. Performed By: #### C BC, BMP, MG, GLYHGB #### [facility] [address] [place] [address] Facility Maintenance Helper: Bradley Richey MD Magnesiumon 06-13-2019 Magnesium [Mass/Vol] 1.9 mg/dL Normal 1.6-2.6 [facility] Comment on above: Performed By: #### C BC, BMP, MG, GLYHGB #### [facility] [address] [place] [address] [phone] Facility Maintenance Helper: Bradley Richey MD Magnesium [Mass/Vol] 1.9 mg/dL 1.6 - 2 .6 mg/dL [place] POC Glucose Fingerstickon Glucose [Mass/Vol] 209 mg/dL High 75 - 110 mg/dL [place] Interpretation and review of laboratory results Abnormal [place] Glucose [Mass/Vol] 165 mg/dL High 75 - 110 mg/dL [place] Interpretation and review of laboratory results Abnormal [place] XR CHEST (2 VW)on 06-13-2019 XR [...] Abdon Dolan MD 06/13/19 Final result Normal [facility] XR CHEST PORTABLEon 06-13-20 XR CHEST PORTABLE [...] Rosalba Brush DO 06/12/19 Final result Normal [facility] CHLORIDE (POC)on 06-12-2019 Chloride [Moles/Vol] 107 mmol/L 98 - 10 7 mmol/L [place], [place] Creatinine W/GFR Point of Ca reon 06-12-2019 Creatinine [Mass/Vol] 1.02 mg/dL 0.51 - 1.19 mg/dL [place] GFR Non- >60 >60 mL/min [place] GFR/1.73 sq M predicted among non-blacks MDRD (S/P/Bld) [Vol rate/Area] mL/min/{1.73_m2} >60 mL/min [place] GFR/1.73 sq M predicted among non-blacks MDRD (S/P/Bld) [Vol rate/Area] [place] Comment on above: Average GFR for 70 o r more years old: 75 mL/min/1.73sq m Chronic Kidney Disease: <60 mL/min/1.73sq m Kidney failure: <15 mL/min/1.73sq m eGFR calculated using average adult body mass. Additional eGFR calculator available at: http://www.Mpayy.com/multiple_crcl_2012.htm Hemoglobin and hematocrit, b loodon 06-12-2019 Hematocrit (Bld) [Volume fraction] 34 % Low 41 - 53 % [place] Hemoglobin (Bld) [Mass/Vol] 11.5 g/dL Low 13.5 - 17.5 g/dL [place] Otheron 06-12-2019 Interpretation and review of laboratory results Abnormal [place] POC Glucose Fingerstickon Glucose [Mass/Vol] 115 mg/dL High 75 - 110 mg/dL [place] Interpretation and review of laboratory results Abnormal [place] Glucose [Mass/Vol] 112 mg/dL High 75 - 110 mg/dL [place] Interpretation and review of laboratory results Abnormal [place] POCT Glucoseon 06-12-2019 Glucose [Mass/Vol] 120 mg/dL High 74 - 100 mg/dL [place] POTASSIUM (POC)on 06-12-2019 Potassium [Moles/Vol] 4.4 mmol/L 3.5 - 4.5 mmol/L [place] SODIUM (POC)on 06-12-2019 Sodium [Moles/Vol] 144 mmol/L 138 - 146 mmol/L [place] XR CHEST PORTABLEon 06-12-20 19 Left chest pacemaker device in place. No evidence of pneumothorax. [place] EXAMINATION: ONE XRA Y VIEW OF [...] effusion. No free air beneath the diaphragm. [place] Pri[place], Mh[facility] Incoming Radiant Results From [facility] - 06/12/2019 10:21 PM EDT EXAMINATION: ONE [...] device in place. No evidence of pneumothorax. [facility], [place] XR KNEE RIGHT (3 VIEWS)on XR KNEE [...] by:DEEDEE Ariasigned by:Abdon Dolan MD01/17/18inal result Normal [facility] Vital Signs Date Time Vital Sign Value Performing Clinician Facility 03-21-2025 11:08-0400 Body height 167.64 cm Shanique Anderson [employer] Work Phone: [facility] 03-21-2025 11:08-0400 Body mass index (BMI) [Ratio] 27.7 kg/m2 Shanique Anderson DO Work Phone: [facility] 03-21-2025 11:08-0400 Body weight 78.01 kg Man[place]as Justin DO Work Phone: [facility] 03-21-2025 11:08-0400 Diastolic blood pressure 44 mm[Hg] Shanique Anderson DO Work Phone: [facility] 03-21-2025 11:08-0400 Heart rate 65 /min Manassasaditya Anderson [employer] Work Phone: [facility] 03-21-2025 11:08-0400 Systolic blood pressure 105 mm[Hg] Shanique Anderson DO Work Phone: [facility] 01-31-2025 14:36-0400 Body height 166.4 cm Viky Lowe PA Work Phone: [facility] 01-31-2025 14:36-0400 Body mass index (BMI) [Ratio] 28.68 kg/m2 Viky Lowe PA Work Phone: [facility] 01-31-2025 14:36-0400 Body weight 79.38 kg Viky Lowe PA Work Phone: [facility] 01-31-2025 14:36-0400 Diastolic blood pressure 62 mm[Hg] Viky Lowe PA Work Phone: [facility] 01-31-2025 14:36-0400 Heart rate 64 /min Viky Lowe PA Work Phone: [facility] 01-31-2025 14:36-0400 SaO2% (BldA) [Mass fraction] 95 % Viky Lowe PA Work Phone: [facility] 01-31-2025 14:36-0400 Systolic blood pressure 118 mm[Hg] Viky Lowe PA Work Phone: [facility] 12-04-2024 14:21-0400 Body height 165.1 cm Viky Lowe PA Work Phone: [facility] 12-04-2024 14:21-0400 Body mass index (BMI) [Ratio] 29.62 kg/m2 Viky Lowe PA Work Phone: [facility] 12-04-2024 14:21-0400 Body weight 80.74 kg Viky Lowe PA Work Phone: [facility] 12-04-2024 14:21-0400 Diastolic blood pressure 60 mm[Hg] Viky Lowe PA Work Phone: [facility] 12-04-2024 14:21-0400 Systolic blood pressure 120 mm[Hg] Viky Lowe PA Work Phone: [facility] 10-27-2024 15:12-0500 Body height 165.1 cm Rosemary Cartagena MD Work Phone: [facility] 10-27-2024 15:12-0500 Body mass index (BMI) [Ratio] 30.39 kg/m2 Rosemary Cartagena MD Work Phone: [facility] 10-27-2024 15:12-0500 Body weight 82.83 kg Rosemary Cartagena MD Work Phone: [facility] 10-27-2024 15:12-0500 Diastolic blood pressure 64 mm[Hg] Rosemary Cartagena MD Work Phone: [facility] 10-27-2024 15:12-0500 Heart rate 64 /min Rosemary Cartagena MD Work Phone: [facility] 10-27-2024 15:12-0500 Systolic blood pressure 116 mm[Hg] Rosemary Cartagena MD Work Phone: [facility] 10-21-2024 11:32-0500 Body temperature 97.7 [degF] Fabiano Pickering MD Work Phone: [facility] 10-21-2024 11:32-0500 Diastolic blood pressure 49 mm[Hg] Fabiano Pickering MD Work Phone: [facility] 10-21-2024 11:32-0500 Heart rate 63 /min Fabiano Pickering MD Work Phone: [facility] 10-21-2024 11:32-0500 Respiratory rate 16 /min Fabiano Pickering MD Work Phone: [facility] 10-21-2024 11:32-0500 SaO2% (BldA) [Mass fraction] 94 % Fabiano Pickering MD Work Phone: [facility] 10-21-2024 11:32-0500 Systolic blood pressure 134 mm[Hg] Fabiano Pickering MD Work Phone: [facility] 10-21-2024 05:00-0500 Body mass index (BMI) [Ratio] 29.74 kg/m2 Fabiano Pickering MD Work Phone: [facility] 10-21-2024 05:00-0500 Body weight 83.57 kg Fabiano Pickering MD Work Phone: [facility] 10-20-2024 21:47-0500 Body height 167.6 cm Fabiano Pickering MD Work Phone: [facility] 09-01-2024 14:21-0500 Body height 165.1 cm Rosemary Cartagena MD Work Phone: [facility] 09-01-2024 14:21-0500 Body mass index (BMI) [Ratio] 30.29 kg/m2 Rosemary Cartagena MD Work Phone: [facility] 09-01-2024 14:21-0500 Body weight 82.56 kg Rosemary Cartagena MD Work Phone: [facility] 09-01-2024 14:21-0500 Diastolic blood pressure 60 mm[Hg] Rosemary Cartagena MD Work Phone: [facility] 09-01-2024 14:21-0500 Heart rate 60 /min Rosemary Cartagena MD Work Phone: [facility] 09-01-2024 14:21-0500 Systolic blood pressure 120 mm[Hg] Rosemary Cartagena MD Work Phone: [facility] 08-24-2024 14:50-0500 Body height 165.1 cm Viky Lowe PA Work Phone: [facility] 08-24-2024 14:50-0500 Diastolic blood pressure 108 mm[Hg] Viky Lowe PA Work Phone: [facility] 08-24-2024 14:50-0500 Heart rate 61 /min Viky Lowe PA Work Phone: [facility] 08-24-2024 14:50-0500 Systolic blood pressure 132 mm[Hg] Viky Lowe PA Work Phone: [facility] 07-27-2024 15:08-0500 Diastolic blood pressure 58 mm[Hg] Rosemary Cartagena MD Work Phone: [facility] 07-27-2024 15:08-0500 Systolic blood pressure 112 mm[Hg] Rosemary Cartagena MD Work Phone: [facility] 07-27-2024 14:30-0500 Body height 167.6 cm Rosemary Cartagena MD Work Phone: [facility] 07-27-2024 14:30-0500 Body mass index (BMI) [Ratio] 28.73 kg/m2 Rosemary Cartagena MD Work Phone: [facility] 07-27-2024 14:30-0500 Body weight 80.74 kg Rosemary Cartagena MD Work Phone: [facility] 07-27-2024 14:30-0500 Heart rate 62 /min Rosemary Cartagena MD Work Phone: [facility] 07-13-2024 14:18-0400 Body height 167.6 cm Viky Lowe PA Work Phone: [facility] 07-13-2024 14:18-0400 Body mass index (BMI) [Ratio] 28.57 kg/m2 Viky Lowe PA Work Phone: [facility] 07-13-2024 14:18-0400 Body weight 80.29 kg Viky Lowe PA Work Phone: [facility] 07-13-2024 14:18-0400 Diastolic blood pressure 60 mm[Hg] Viky Lowe PA Work Phone: [facility] 07-13-2024 14:18-0400 Systolic blood pressure 132 mm[Hg] Viky Lowe PA Work Phone: [facility] 06-13-2024 14:08-0400 Body height 167.6 cm Viky Lowe PA Work Phone: [facility] 06-13-2024 14:08-0400 Body mass index (BMI) [Ratio] 29.38 kg/m2 Viky Lowe PA Work Phone: [facility] 06-13-2024 14:08-0400 Body weight 82.56 kg Viky Lowe PA Work Phone: [facility] 06-13-2024 14:08-0400 Diastolic blood pressure 78 mm[Hg] Viky Lowe PA Work Phone: [facility] 06-13-2024 14:08-0400 Systolic blood pressure 142 mm[Hg] Viky Lowe PA Work Phone: [facility] 04-25-2024 13:55-0400 Blood Pressure Location Anabel Orzech [facility] 04-25-2024 13:55-0400 Diastolic blood pressure 56 mm[Hg] Anabel Orzech [facility] 04-25-2024 13:55-0400 Heart rate 63 /min Anabel Orzech [facility] 04-25-2024 13:55-0400 Respiratory rate 18 /min Anabel Orzech [facility] 04-25-2024 13:55-0400 Systolic blood pressure 110 mm[Hg] Anabel Orzech [facility] 04-24-2024 13:45-0400 Body height 167.6 cm Rosemary Cartagena MD Work Phone: [facility] 04-24-2024 13:45-0400 Body mass index (BMI) [Ratio] 29.96 kg/m2 Rosemary Cartagena MD Work Phone: [facility] 04-24-2024 13:45-0400 Body weight 84.19 kg Rosemary Cartagena MD Work Phone: [facility] 04-24-2024 13:45-0400 Diastolic blood pressure 62 mm[Hg] Rosemary Cartagena MD Work Phone: [facility] 04-24-2024 13:45-0400 Heart rate 62 /min Rosemary Cartagena MD Work Phone: [facility] 04-24-2024 13:45-0400 Systolic blood pressure 104 mm[Hg] Rosemary Cartagena MD Work Phone: [facility] 04-03-2024 11:19-0400 Body height 167.64 cm DO Shanique Anderson Work Phone: [facility] 04-03-2024 11:19-0400 Body mass index (BMI) [Ratio] 29.3 kg/m2 DO Manassas Gordo Work Phone: [facility] 04-03-2024 11:19-0400 Body weight 82.55 kg DO [place]as Gordo Work Phone: [facility] 04-03-2024 11:19-0400 Diastolic blood pressure 42 mm[Hg] DO [place]as Gordo Work Phone: [facility] 04-03-2024 11:19-0400 Heart rate 66 /min DO Shanique Gordo Work Phone: [facility] 04-03-2024 11:19-0400 Systolic blood pressure 93 mm[Hg] DO [place]as Gordo Work Phone: [facility] 12-22-2023 14:28-0400 Body height 167.6 cm Saira Heart APRN-[employer] OFFIC[employer] Work Phone: [facility] 12-22-2023 14:28-0400 Body mass index (BMI) [Ratio] 31.47 kg/m2 Saira Heart EQUIPMENT ENGINEER-[employer] OFF[employer] Work Phone: [facility] 12-22-2023 14:28-0400 Body weight 88.45 kg Saira Heart EQUIPMENT ENGINEER-[employer] OFFIC[employer] Work Phone: [facility] 12-22-2023 14:28-0400 Diastolic blood pressure 50 mm[Hg] Saira Heart EQUIPMENT ENGINEER-[employer] OFFICER Work Phone: [facility] 12-22-2023 14:28-0400 Heart rate 60 /min Saira Heart EQUIPMENT ENGINEER-[employer] OFFICER Work Phone: [facility] 12-22-2023 14:28-0400 Systolic blood pressure 120 mm[Hg] Saira Heart EQUIPMENT ENGINEER-[employer] OFFICER Work Phone: [facility] 12-06-2023 15:09-0400 Body height 167.6 cm Saira Heart EQUIPMENT ENGINEER-[employer] OFFICER Work Phone: [facility] 12-06-2023 15:09-0400 Body mass index (BMI) [Ratio] 29.86 kg/m2 Saira Heart EQUIPMENT ENGINEER-[employer] OFFICER Work Phone: [facility] 12-06-2023 15:09-0400 Body weight 83.92 kg Saira Heart EQUIPMENT ENGINEER-[employer] OFFICER Work Phone: [facility] 12-06-2023 15:09-0400 Diastolic blood pressure 64 mm[Hg] Saira Heart EQUIPMENT ENGINEER-[employer] OFFICER Work Phone: [facility] 12-06-2023 15:09-0400 Heart rate 60 /min Saira Heart EQUIPMENT ENGINEER-[employer] OFFICER Work Phone: [facility] 12-06-2023 15:09-0400 Systolic blood pressure 112 mm[Hg] Saira Heart EQUIPMENT ENGINEER-[employer] OFFICER Work Phone: [facility] 10-25-2023 15:04-0500 Body height 167.6 cm Rosemary Cartagena MD Work Phone: [facility] 10-25-2023 15:04-0500 Body mass index (BMI) [Ratio] 30.67 kg/m2 Rosemary Cartagena MD Work Phone: [facility] 10-25-2023 15:04-0500 Body weight 86.18 kg Rosemary Cartagena MD Work Phone: [facility] 10-25-2023 15:04-0500 Diastolic blood pressure 62 mm[Hg] Rosemary Cartagena MD Work Phone: [facility] 10-25-2023 15:04-0500 Heart rate 64 /min Rosemary Cartagena MD Work Phone: [facility] 10-25-2023 15:04-0500 Systolic blood pressure 118 mm[Hg] Rosemary Cartagena MD Work Phone: [facility] 09-02-2023 13:25-0500 Body height 167.[address] 09-02-2023 13:25-0500 Body mass index (BMI) [Ratio] 30.99 kg/m2 [address] 09-02-2023 13:25-0500 Body weight 87.[address] 09-02-2023 13:25-0500 Diastolic blood pressure 74 mm[Hg] [address] 09-02-2023 13:25-0500 Systolic blood pressure 112 mm[Hg] [address] 08-30-2023 11:14-0500 Diastolic blood pressure 80 mm[Hg] Rosemary Cartagena MD Work Phone: [facility] 08-30-2023 11:14-0500 Heart rate 67 /min Rosemary Cartagena MD Work Phone: [facility] 08-30-2023 11:14-0500 Systolic blood pressure 110 mm[Hg] Rosemary Cartagena MD Work Phone: [facility] 08-30-2023 11:13-0500 Body height 167.6 cm Rosemary Cartagena MD Work Phone: [facility] 08-30-2023 11:13-0500 Body mass index (BMI) [Ratio] 30.99 kg/m2 Rosemary Cartagena MD Work Phone: [facility] 08-30-2023 11:13-0500 Body weight 87.09 kg Rosemary Cartagena MD Work Phone: [facility] 04-01-2023 14:00-0400 Body height 167.64 cm Alexei Van Other [employer] Other 04-01-2023 14:00-0400 Body mass index (BMI) [Ratio] 28.73 kg/m2 Alexei Jacksony Other [employer] Other 04-01-2023 14:00-0400 Body weight 80.74 kg Alexei Jacksony Other [employer] Other 04-01-2023 14:00-0400 Diastolic blood pressure 74 mm[Hg] Alexei Jacksony Other [employer] Other 04-01-2023 14:00-0400 Systolic blood pressure 140 mm[Hg] Alexei Barrontty Other [employer] Other 03-11-2022 16:00-0400 Body height 167.64 cm Alexei Van Other [employer] Other 03-11-2022 16:00-0400 Body mass index (BMI) [Ratio] 29.05 kg/m2 Alexei Jacksony Other [employer] Other 03-11-2022 16:00-0400 Body weight 81.65 kg Alexei Van Other [employer] Other 09-02-2021 15:40-0500 Body height 167.64 cm Osvaldo Raheem Other [employer] Other 09-02-2021 15:40-0500 Body mass index (BMI) [Ratio] 32.6 kg/m2 Osvaldo Raheem Other [employer] Other 09-02-2021 15:40-0500 Body weight 91.63 kg Osvaldo Raheem Other [employer] Other 08-25-2021 15:30-0500 Body height 167.64 cm Abdon Jackman Other [employer] Other 08-25-2021 15:30-0500 Body mass index (BMI) [Ratio] 32.6 kg/m2 Abdon Jackman Other [employer] Other 08-25-2021 15:30-0500 Body temperature 98.1 [degF] Abdon Jackman Other [employer] Other 08-25-2021 15:30-0500 Body weight 91.63 kg Abdon Jackman Other [employer] Other 08-25-2021 15:30-0500 Diastolic blood pressure 68 mm[Hg] Abdon Jackman Other [employer] Other 08-25-2021 15:30-0500 SaO2% (BldA) [Mass fraction] 98 % Abdon Jackman Other [employer] Other 08-25-2021 15:30-0500 Systolic blood pressure 136 mm[Hg] Abdon Jackman Other [employer] Other 07-24-2021 14:20-0500 Body height 167.64 cm Osvaldo Raheem Other [employer] Other 07-24-2021 14:20-0500 Body mass index (BMI) [Ratio] 32.6 kg/m2 Osvaldo Raheem Other [employer] Other 07-24-2021 14:20-0500 Body weight 91.63 kg Osvaldo Raheem Other [employer] Other 07-24-2021 14:20-0500 Diastolic blood pressure 75 mm[Hg] Osvaldomaciej Maciel Other [employer] Other 07-24-2021 14:20-0500 Systolic blood pressure 134 mm[Hg] Osvaldo Maciel Other [employer] Other 07-03-2021 17:15-0400 Body height 167.64 cm Ryder Pollack Other [employer] Other 07-03-2021 17:15-0400 Body mass index (BMI) [Ratio] 31.95 kg/m2 Ryder Pollack Other [employer] Other 07-03-2021 17:15-0400 Body weight 89.81 kg Ryder Pollack Other [employer] Other 07-03-2021 17:15-0400 Diastolic blood pressure 60 mm[Hg] Ryder Pollack Other [employer] Other 07-03-2021 17:15-0400 SaO2% (BldA) [Mass fraction] 98 % Ryder Pollack Other [employer] Other 07-03-2021 17:15-0400 Systolic blood pressure 140 mm[Hg] Ryder Pollack Other [employer] Other 06-30-2021 16:45-0400 Body height 167.64 cm Abdon Jackman Other [employer] Other 06-30-2021 16:45-0400 Body mass index (BMI) [Ratio] 31.95 kg/m2 Abdon Jackman Other [employer] Other 06-30-2021 16:45-0400 Body temperature 97.6 [degF] Abdon Jackman Other [employer] Other 06-30-2021 16:45-0400 Body weight 89.81 kg Abdon Jackman Other [employer] Other 06-30-2021 16:45-0400 Diastolic blood pressure 68 mm[Hg] Abdon Jackman Other [employer] Other 06-30-2021 16:45-0400 SaO2% (BldA) [Mass fraction] 96 % Abdon Jackman Other [employer] Other 06-30-2021 16:45-0400 Systolic blood pressure 130 mm[Hg] Abdon Jackman Other [employer] Other 06-16-2021 15:00-0400 Body weight 89.9 kg Ryder Pollack Other [employer] Other 06-16-2021 15:00-0400 Diastolic blood pressure 76 mm[Hg] Ryder Pollack Other [employer] Other 06-16-2021 15:00-0400 Respiratory rate 18 /min Ryder Pollack Other [employer] Other 06-16-2021 15:00-0400 SaO2% (BldA) [Mass fraction] 95 % Ryder Pollack Other [employer] Other 06-16-2021 15:00-0400 Systolic blood pressure 152 mm[Hg] Ryder Pollack Other [employer] Other 06-13-2019 11:52-0400 Body Temperature 98.4 [degF] [facility] [place] 06-13-2019 11:52-0400 BP Diastolic 55 mm[Hg] [facility] [place] 06-13-2019 11:52-0400 BP Systolic 123 mm[Hg] [facility] [place] 06-13-2019 11:52-0400 Pulse (Heart Rate) 63 /min [facility] [place] 06-13-2019 11:52-0400 Respiratory Rate 20 /min [facility] [employer] [place] 06-13-2019 07:15-0400 BMI (Body Mass Index) 33.06 kg/m2 [facility] [place] 06-13-2019 07:15-0400 Body weight 92.9 [facility] [place] 06-13-2019 07:15-0400 Height 167.6 cm [facility] [place] 06-12-2019 20:20-0400 Pulse Oximetry 93 % [place], [place] Encounters Encounter Date Encounter Type Care Provider Facility Start: 04-17-2025 End: 04-17-2025 Patient encounter procedure Anabel Salinas [facility] Start: 03-23-2025 End: 03-23-2025 ambulatory [facility] Facility:[facility] Start: 03-23-2025 Non-patient / Non-visit [facility] Start: 03-21-2025 End: 03-21-2025 ambulatory Shanique Anderson DO Work Phone: [facility] Work Phone: Start: 03-21-2025 End: 03-21-2025 Patient encounter procedure Alexei Van MD -[facility] Work Phone: Start: 02-02-2025 End: 02-02-2025 ambulatory [facility] Ambulatory Start: 01-31-2025 End: 01-31-2025 ambulatory VIKY ROLLINS Not Available Start: 01-31-2025 End: 01-31-2025 Office outpatient visit 25 minutes Viky Rollins [...] flowsheet Viky Lowe PA Work Phone: [facility] Start: 12-20-2024 End: 12-20-2024 Patient encounter procedure Shanique Anderson DO Work Phone: [facility] Start: 12-20-2024 End: 12-20-2024 ambulatory Shanique Anderson DO Work Phone: [facility] Work Phone: Start: 12-04-2024 End: 12-04-2024 Office outpatient visit 25 minutes Viky OLSEN Work Phone: [facility] Comment on above: Periodic limb moveme nt disorder (Primary Dx); Parkinson's disease without dyskinesia or fluctuating manifestations (CMS/HCC); Cerebrovascular accident (CVA), unspecified mechanism (CMS/HCC); Chronic bilateral low back pain with bilateral sciatica; Memory loss; HERBIE (obstructive sleep apnea) Start: 12-04-2024 End: 12-04-2024 ambulatory VIKY AYO Not Available Start: 12-04-2024 End: 12-04-2024 Bamboo flowsheet Viky Rollins PA Work Phone: [facility] Start: 12-04-2024 End: 12-04-2024 Bamboo flowsheet Viky Rollins PA Work Phone: [facility] Start: 11-28-2024 End: 11-28-2024 ambulatory Petr PAINTING Facility: [facility] Start: 11-24-2024 ambulatory Anabel X Rooseveltch Facilit y:[facility] Start: 11-22-2024 ambulatory [facility]INTING [facility] Start: 11-09-2024 End: 11-09-2024 Refill [facility] Comment on above: Vertigo; Anxiety; Gait difficulty Start: 10-27-2024 End: 10-27-2024 ambulatory [facility] Ambulatory Start: 10-27-2024 End: 10-27-2024 Transitional care manage srvc 7 day discharge Rosemary Cartagena MD Work Phone: [facility] Comment on above: Falls frequently (Pr imary Dx); Hx of coronary artery bypass graft; Congestive heart failure, NYHA class 3, chronic, systolic; Ischemic cardiomyopathy; 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; Presence of Watchman left atrial appendage closure device; Chronic kidney disease, stage 3a (Multi); Other specified diabetes mellitus with other specified complication, unspecified whether [facility] insulin use (Multi); ICD (implantable cardioverter-defibrillator) in place; Parkinson's disease, unspecified whether dyskinesia present, unspecified whether manifestations fluctuate; Obstructive sleep apnea syndrome; 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 Start: 10-21-2024 End: 10-24-2024 ambulatory MONSE Lal [facility] Start: 10-21-2024 End: 10-21-2024 Subsequent hospital visit by physician Maria Ines [id number] Cr Nonv1 Holter/Ecg Resource [facility]ina Start: 10-20-2024 End: 10-24-2024 ambulatory MONSE Lal [facility] Start: 10-20-2024 End: 10-20-2024 Subsequent hospital visit by physician Maria Ines [address] [facility] Comment on above: Atrial fibrillation, unspecified type (Multi) Start: 10-20-2024 End: 10-21-2024 Encounter for other preprocedural examination FABIANO PICKERING [facility] Start: 10-20-2024 End: 10-21-2024 Encounter for preprocedural cardiovascular examination FABIANO PICKERING [facility] Start: 10-20-2024 End: 10-21-2024 Evaluation and management of inpatient Fabiano Pickering MD Work Phone: [facility] Haris Granado 7 Comment on above: Atrial fibrillation, unspecified type (Multi) (Primary Dx); Preoperative examination; Presence of Watchman left atrial appendage closure device; Postoperative examination; Encounter for preprocedural cardiovascular examination; Atrial fibrillation (Multi); Congestive heart failure, NYHA class 3, chronic, systolic; Ischemic cardiomyopathy Start: 10-20-2024 End: 10-21-2024 Patient encounter status Fabiano Pickering MD Work Phone: [facility] Start: 10-20-2024 End: 10-21-2024 Preprocedural examination done Fabiano Pickering MD Work Phone: [facility] Work Phone: Start: 10-03-2024 End: 10-03-2024 ambulatory Petr PAINTING Facility:[facility] Start: 10-03-2024 End: 10-03-2024 Patient encounter procedure Petr PAINTING [facility] Start: 09-27-2024 End: 09-27-2024 Office outpatient new 45 minutes Fabiano Pickering MD Work Phone: [facility] Comment on above: Persistent atrial fi brillation (Multi) (Primary Dx); ICD (implantable cardioverter-defibrillator) in place; senior care 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; Parkinson's disease, unspecified whether dyskinesia present, unspecified whether manifestations fluctuate; Falls frequently Start: 09-27-2024 End: 09-27-2024 ambulatory [facility]ABIANO Dudley [facility] Start: 09-08-2024 End: 09-08-2024 ambulatory Rosemary Cartagena Facility:[facility] Start: 09-01-2024 End: 09-01-2024 ambulatory [facility] Ambulatory Start: 09-01-2024 End: 09-01-2024 Clinisync Result Encounter Viky OLSEN Work Phone: [facility] External Department Unsolicited Start: 09-01-2024 End: 09-01-2024 Clinisync Result Encounter Viky OLSEN Work Phone: [facility] External Department Unsolicited Start: 09-01-2024 End: 09-01-2024 Office outpatient visit 25 minutes Rosemary Cartagena MD Work Phone: [facility] Comment on above: 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 (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); Congestive heart failure, NYHA class 3, chronic, systolic; Nonrheumatic mitral valve regurgitation; Obstructive sleep apnea syndrome; Falls frequently; Hx of coronary artery bypass graft; Body mass index (BMI) of 30.0-30.9 in adult; Permanent atrial fibrillation (Multi); Ischemic cardiomyopathy; 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; 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; Former smoker Start: 08-24-2024 End: 08-24-2024 Office outpatient visit 25 minutes Viky OLSEN Work Phone: [facility] Comment on above: Periodic limb moveme nt disorder (Primary Dx); Gait difficulty; Balance problem; Radiculopathy, lumbosacral region; Memory loss Start: 08-24-2024 End: 08-24-2024 ambulatory VIKY ROLLINS Not Available Start: 08-24-2024 End: 08-24-2024 Bamboo flowsheet Viky Rollins PA Work Phone: [facility] Start: 08-24-2024 End: 08-24-2024 Bamboo flowsheet Viky Rollins PA Work Phone: [facility] Start: 07-27-2024 End: 07-27-2024 ambulatory [facility] Start: 07-27-2024 End: 07-27-2024 Office outpatient visit 25 minutes Rosemary Cartagena MD Work Phone: [facility] Comment on above: Congestive heart chrisemerald barr, NYHA class 3, chronic, systolic; 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; Hx of coronary artery bypass graft; ICD (implantable cardioverter-defibrillator) in place; Ischemic cardiomyopathy; senior care 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; Former smoker; Body mass index (BMI) 28.0-28.9, adult; Permanent atrial fibrillation (Multi); Parkinson's disease, unspecified whether dyskinesia present, unspecified whether manifestations fluctuate; Falls frequently Start: 07-25-2024 End: 07-25-2024 ambulatory Anabel Salinas Facility:[facility] Start: 07-25-2024 End: 07-25-2024 Patient encounter procedure Anabel Salinas [facility] Start: 07-13-2024 End: 07-13-2024 Office outpatient visit 25 minutes Viky OLSEN Work Phone: [facility] Comment on above: 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); Gait difficulty; Memory loss; Chronic post-traumatic headache, not intractable; Cerebrovascular accident (CVA), unspecified mechanism (CMS/HCC); Vertigo Start: 07-13-2024 End: 07-13-2024 ambulatory VIKY ROLLINS Not Available Start: 07-13-2024 End: 07-13-2024 Bamboo flowsheet Viky Lowe PA Work Phone: [facility] [place] [facility] Start: 07-13-2024 End: 07-13-2024 Bamboo flowsheet Viky Lowe PA Work Phone: [facility] [address] [facility] Start: 06-29-2024 End: 06-29-2024 Patient encounter procedure DO Shanique Anderson Work Phone: [facility] [address] Work Phone: Start: 06-29-2024 End: 06-29-2024 ambulatory DO Shanique Anderson Work Phone: [facility] Work Phone: Start: 06-15-2024 End: 06-15-2024 ambulatory Petr PAINTING [place] [place] Start: 06-15-2024 End: 06-15-2024 Patient encounter procedure Petr PAINTING [facility] Start: 06-13-2024 End: 06-13-2024 ambulatory VIKY LOWE Not Available Start: 06-13-2024 End: 06-13-2024 Bamboo flowsheet Viky Lowe PA Work Phone: [facility] [address] Start: 06-13-2024 End: 06-13-2024 Bamboo flowsheet Viky Lowe PA Work Phone: [facility] [address] [facility] Start: 06-13-2024 End: 06-13-2024 Office outpatient visit 25 minutes Viky Lowe PA Work Phone: [facility] [place] [address] [facility] Comment on above: Hyperreflexia (Prima ry Dx); Gait difficulty; Vertigo; Anxiety; Memory loss; Balance problem; Chronic post-traumatic headache, not intractable Start: 06-07-2024 End: 06-07-2024 Patient encounter procedure DO Shanique Anderson Work Phone: [facility] Start: 06-07-2024 End: 06-07-2024 ambulatory DO Shanique Anderson Work Phone: [facility] Work Phone: Start: 06-07-2024 Non-patient / Non-visit DO Vibha Anderson Work Phone: [facility] Start: 05-10-2024 End: 05-10-2024 Patient encounter procedure DO Shanique Anderson Work Phone: [facility] [place] Work Phone: Start: 05-10-2024 End: 05-10-2024 ambulatory DO Shanique Anderson Work Phone: [facility] Work Phone: Start: 04-25-2024 End: 04-25-2024 ambulatory Anabel X Orzech Facility:[facility] Start: 04-25-2024 End: 04-25-2024 Patient encounter procedure Anabel X Orzech [facility] Start: 04-24-2024 End: 04-24-2024 Office outpatient visit 25 minutes Rosemary Cartagena MD Work Phone: [facility] Comment on above: Permanent atrial fib rillation (Multi); Ischemic cardiomyopathy; Congestive heart failure, NYHA class 3, chronic, systolic (Multi); ICD (implantable cardioverter-defibrillator) in place; 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; Hx of coronary artery bypass graft; 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; senior care 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; Other specified diabetes mellitus with other specified complication, unspecified whether [place] [facility] insulin use (Multi); Obstructive sleep apnea syndrome; History of stroke; Stage 3b chronic kidney disease (Multi); BMI 29.0-29.9,adult; Former smoker; Nonrheumatic mitral valve regurgitation; Nonrheumatic aortic valve insufficiency Start: 04-24-2024 End: 04-24-2024 ambulatory [facility] Start: 04-03-2024 End: 04-03-2024 ambulatory DO Shanique Anderson Work Phone: [facility] Work Phone: Start: 04-03-2024 End: 04-03-2024 Patient encounter procedure DO Shanique Anderson Work Phone: [facility] Work Phone: Start: 03-06-2024 End: 03-06-2024 ambulatory DO Shanique Anderson Work Phone: [facility] Work Phone: Start: 03-06-2024 End: 03-06-2024 Patient encounter procedure DO Shanique Anderson Work Phone: [facility] Start: 03-01-2024 End: 03-01-2024 Patient encounter procedure SADAF TANNER [facility] Start: 02-23-2024 End: 02-23-2024 ambulatory VIKY LOWE Not Available Start: 02-18-2024 End: 02-18-2024 ambulatory DO Shanique Anderson Work Phone: [facility] Work Phone: Start: 02-18-2024 End: 02-18-2024 Patient encounter procedure DO Shaniuqe Anderson Work Phone: [facility] [place] Work Phone: Start: 12-22-2023 End: 12-22-2023 Office outpatient visit 15 minutes Saira Heart EQUIPMENT ENGINEER-ARMY OFFICER Work Phone: [facility] Comment on above: BMI 31.0-31.9,adult (Primary Dx); Ischemic cardiomyopathy Start: 12-06-2023 End: 12-06-2023 Office outpatient visit 15 minutes Saira Heart EQUIPMENT ENGINEER-ARMY OFFICER Work Phone: [facility] Comment on above: BMI 29.0-29.9,adult (Primary Dx); Ischemic cardiomyopathy; 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 Start: 12-03-2023 End: 12-03-2023 ambulatory DO Shanique Anderson Work Phone: [facility] Work Phone: Start: 12-03-2023 End: 12-03-2023 Patient encounter procedure DO Shanique Anderson Work Phone: [facility] [place] Work Phone: Start: 12-03-2023 End: 12-03-2023 ambulatory DO Shanique Anderson Work Phone: [facility] Work Phone: Start: 12-03-2023 End: 12-03-2023 Patient encounter procedure DO Shanique Anderson Work Phone: [facility] Start: 10-25-2023 End: 10-25-2023 Office outpatient visit 25 minutes Rosemary Cartagena MD Work Phone: [facility] Comment on above: Bipolar disorder, cu rrent episode manic severe with psychotic features (CMS/HCC) (Primary Dx); Permanent atrial fibrillation (CMS/HCC); Ischemic cardiomyopathy; ICD (implantable cardioverter-defibrillator) in place; Hx of coronary artery bypass graft; 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; History of stroke; Other specified diabetes mellitus with other specified complication, unspecified whether [place] [facility] insulin use (CMS/HCC); 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; senior care 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; Obstructive sleep [...] 09-16-2023 End: 09-16-2023 ambulatory Alexei Van Other [employer] Other Start: 09-16-2023 Telephone encounter Alexei Tejeda [facility] Start: 09-02-2023 End: 09-02-2023 Subsequent hospital visit by physician Farzana Griffin Echo/Vasc Room 2 [facility] Comment on above: Abnormal EKG; Sleep apnea, unspecified type; Permanent atrial fibrillation (CMS/HCC); Shortness of breath Start: 09-02-2023 End: 09-02-2023 ambulatory ROSEMARY CARTAGENA [facility] Start: 09-02-2023 End: 09-02-2023 ambulatory DO Shanique Anderson Work Phone: [facility] Work Phone: Start: 09-02-2023 End: 09-02-2023 Patient encounter procedure DO Shanique Justin Work Phone: [facility] Start: 08-30-2023 End: 08-30-2023 Office outpatient new 60 minutes Rosemary Cartagena MD Work Phone: [facility] Comment on above: Permanent atrial fib rillation (CMS/HCC) (Primary Dx); ICD (implantable cardioverter-defibrillator) in place; Sleep apnea, unspecified type; Abnormal EKG; Hx of coronary artery bypass graft; Coronary artery disease, unspecified vessel or lesion type, unspecified whether angina present, unspecified whether teller or transplanted heart; senior care 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; Shortness of breath; History of stroke; Benign prostatic hyperplasia with lower urinary tract symptoms, symptom details unspecified; Ischemic cardiomyopathy; Fatigue, unspecified type; Other specified diabetes mellitus with other specified complication, 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 (CMS/HCC) Start: 08-12-2023 End: 08-12-2023 ambulatory Alexei Van Other [employer] Other Start: 08-12-2023 Telephone encounter Alexei Tejeda [facility] Start: 04-01-2023 End: 04-01-2023 ambulatory Alexei Van Other [employer] Other Start: 04-01-2023 Patient encounter procedure Alexei Van [facility] Start: 11-30-2022 End: 11-30-2022 ambulatory DO Shanique Anderson Work Phone: [facility] Work Phone: Start: 11-30-2022 End: 11-30-2022 Patient encounter procedure DO Shanique Anderson Work Phone: [facility] Start: 08-27-2022 Telephone encounter Alexei STONE [facility] Start: 08-27-2022 End: 08-27-2022 ambulatory ALEXEI VAN Facility:[facility] Start: 08-25-2022 End: 08-25-2022 ambulatory Alexei Van Other [employer] Other Start: 08-25-2022 Telephone encounter Alexei STONE [facility] Start: 05-12-2022 End: 05-12-2022 ambulatory Ryder Pollack Other [employer] Other Start: 05-12-2022 Telephone encounter Ryder Pollack [facility] Start: 03-11-2022 End: 03-11-2022 ambulatory Alexei Van Other [employer] Other Start: 03-11-2022 Patient encounter procedure Alexei Van [facility] Start: 12-25-[address] SHANIQUE ANDERSON Facil ity:[facility] Start: 12-16-2021 End: 12-16-2021 ambulatory ALEXEI VAN Facility:[facility] Start: 12-15-2021 End: 12-15-2021 ambulatory Alexei Van Other [employer] Other Start: 12-15-2021 Telephone encounter Alexei STONE [facility] Start: 11-26-2021 End: 11-27-[address] SHANIQUE ANDERSON Facility:[facility] Start: 09-18-2021 End: 10-28-2021 ambulatory ALBIN BABIN Facility:[facility] Start: 09-02-2021 End: 09-02-2021 ambulatory Osvaldo Maciel Other [facility] [employer] Other Start: 09-02-2021 Office outpatient vi sit 25 minutes Osvaldo Maciel [facility] Start: 08-25-2021 End: 08-25-2021 ambulatory Abdon Jackman Other [facility] [employer] Other Start: 08-25-2021 Office outpatient vi sit 25 minutes Abdon Jackman [facility] Start: 07-24-2021 End: 07-24-2021 ambulatory Osvaldo Maciel Other [facility] [employer] Other Start: 07-24-2021 Office outpatient ne w 45 minutes Osvaldo Maciel [facility] Start: 07-03-2021 Office outpatient vi sit 25 minutes Ryder Pollack [facility] Start: 07-01-2021 Telephone encounter Abdon burrell [facility] Start: 06-30-2021 Office outpatient vi sit 40 minutes Abdon Jackman [facility] Start: 06-25-2021 Telephone encounter Glenda Guillen [facility] Start: 06-24-2021 (Procedure) Short Ryderedison Pollack [facility] Start: 06-17-2021 Telephone encounter Ryder Pollack [facility] Start: 06-16-2021 Office outpatient vi sit 25 minutes Ryder Pollack [facility] Start: 06-16-2021 Telephone encounter Ryder Pollack [facility] Start: 06-12-2019 End: 06-13-2019 Patient encounter procedure RAÚL Preston [facility] Start: 06-12-2019 End: 06-13-2019 Subsequent hospital visit by physician Raúl Vale Work Phone: [facility] Comment on above: S/P ICD (internal ca rdiac defibrillator) procedure Start: 01-17-2018 End: 01-20-2018 Ambulatory FABIANO WILL [facility] Procedures Date Procedure Procedure Detail Performing Clinician Start: 10-21-2024 Ecg routine ecg w/least 12 lds trcg only w/o i&r Monse R Landers EQUIPMENT ENGINEER-ARMY OFFICER Work Phone: Start: 10-21-2024 Echo transthorc r-t 2d w/wo m-mode rec f-up/lmtd Monse R Landers EQUIPMENT ENGINEER-ARMY OFFICER Work Phone: Start: 10-21-2024 Basic metabolic panel calcium total Monse R Landers EQUIPMENT ENGINEER-ARMY OFFICER Work Phone: Start: 10-20-2024 End: 10-20-2024 Basic metabolic panel calcium total Monse R Landers EQUIPMENT ENGINEER-ARMY OFFICER Work Phone: Start: 10-20-2024 Ecg routine ecg w/least 12 lds trcg only w/o i&r Monse R Landers EQUIPMENT ENGINEER-ARMY OFFICER Work Phone: Start: 10-20-2024 Merary-px dev eval & prog sing/dual/multi lead dfb Fabiano Pickering MD Work Phone: Start: 10-20-2024 Echo transthorc r-t 2d w/wo m-mode rec f-up/lmtd Monse R Landers EQUIPMENT ENGINEER-ARMY OFFICER Work Phone: Start: 10-20-2024 Blood typing serologic rh (d) Monse R Landers EQUIPMENT ENGINEER-ARMY OFFICER Work Phone: Start: 10-20-2024 VERAB/VERIFY ABORH Monse R Landers EQUIPMENT ENGINEER-ARMY OFFICER Work Phone: Start: 10-20-2024 Ct heart contrast eval cardiac structure&morph Fabiano Pickering MD Work Phone: Start: 09-01-2024 [employer] Viky Ayo PA Work Phone: Start: 07-27-2024 Ecg routine ecg w/least 12 lds w/i&r Rosemary Cartagena MD Work Phone: Start: 06-29-2024 CT cervical spine without contrast DO Shanique Gordo Work Phone: Start: 06-29-2024 CT of head without contrast DO Shanique Br istol Work Phone: Start: 02-18-2024 CT of head with contrast DO Shanique Soraida ol Work Phone: Start: 09-02-2023 TRANSTHORACIC ECHO [...] RAÚL VALE Start: 06-13-2019 PULSE OXIMETRY, CONTINUOUS AMBYR VALE Start: 06-13-2019 Glucose blood reagent strip [...] AKANKSHA Start: 06-13-2019 Blood count complete automated AMMARCELINOR AKANKSHA Start: 06-13-2019 Hemoglobin glycosylated a1c AMBRY [...] AMBRY VALE Start: 06-13-2019 INTAKE AND OUTPUT AMBRY VALE Start: 06-13-2019 PULSE OXIMETRY, CONTINUOUS AMMARCELINOR AKANKSHA Start: 06-12-2019 Glucose blood reagent strip AMBRY VALE Start: 06-12-2019 Gluc bld gluc mntr dev cleared fda spec home use AMBRY VALE Start: 06-12-2019 PULSE OXIMETRY, CONTINUOUS AMMARCELINOR AKANKSHA Start: 06-12-2019 Glucose blood reagent strip Ammarcelinor Akanksha Work Phone: Start: 06-12-2019 Glucose blood reagent strip AMMARCELINOR AKANKSHA Start: 06-12-2019 PULSE OXIMETRY, CONTINUOUS AMMARCELINOR AKANKSHA Start: 06-12-2019 Radiologic exam chest single view RAÚL VALE Start: 06-12-2019 Gluc bld gluc mntr dev cleared fda spec home use AMEER AKANKSHA Start: 06-12-2019 NOTIFY PHYSICIAN (SPECIFY) MELODIEBRY VALE Start: 06-12-2019 PLACE INTERMITTENT PNEUMATIC COMPRESSION DEVICE AMBRY VALE Start: 06-12-2019 FULL CODE RAÚL VALE [...] 01-17-2018 Radiologic examination knee 3 views FABIANO EWINGTEJALEmerald Appendectomy Anabel Ormike Cardiac pacemaker, d evice (physical object) Anabel Orzech Cholecystectomy Anabel Orzec h Colonoscopy Anabel Orzech Extraction of cataract Auror a Nickomike History of coronary artery bypass grafting Hx of coronary artery bypass graft Rosemary Cartagena MD Work Phone: History of coronary artery bypass grafting Anabel Maharajheriaddison History of coronary artery bypass grafting Hx [...] of elec tronic stimulator into bladder Anabel Maharajmike Three dimensional ex ternal beam radiation therapy Anabel Maharajmike Total knee replacement Auror a Nickozech Transrectal needle b iopsy of prostate Anabel Salinas Watchman (occupation) Anabel Salinas Plan of Treatment Date Care Activity Detail Author Start: 07-21-2031 DTaP/Tdap/Td Vaccines (2 - Tdap) DTaP/Tdap/Td Vaccines (2 - Tdap) [facility] Start: 07-21-2031 DTaP/Tdap/Td Vaccines (4 - Tdap) DTaP/Tdap/Td Vaccines (4 - Tdap) [facility] Start: 10-21-2025 Creatinine measurement Creatinine Level [facility] Start: 10-21-2025 Echocardiography Echocardiogram [facility] Start: 10-21-2025 Potassium measurement Potassium Level [facility] Start: 10-20-2025 Creatinine measurement Creatinine Level [facility] Start: 10-20-2025 Echocardiography Echocardiogram [facility] Start: 10-20-2025 Potassium measurement Potassium Level [facility] Start: 04-27-2025 End: 04-27-2025 Patient encounter procedure 04/27/2025 2:15 PM EDT Office Visit [facility] [address] [facility] [address] [place] [address] Rosemary Cartagena MD [address] [facility] [address] [place], [place] [address] [facility] Start: 03-02-2025 End: 09-01-2025 Lipid 1996 panel - Serum or Plasma Lipid Panel Lab Routine 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 Expected: 03/02/2025 (Approximate), Expires: 09/01/2025 [facility] Service Area Work Phone: Comment on above: Expected: 03/02/2025 (Approximate), Expi res: 09/01/2025 Start: 02-16-2025 End: 02-16-2025 Patient encounter procedure 02/16/2025 12:45 PM EDT Appointment [address] [place] [id number] [facility] Start: 01-31-2025 End: 01-31-2025 Patient encounter procedure 01/31/2025 2:20 PM EDT Office Visit [facility] [address] [place] [address] Viky Rollins PA [address] [place] [address] [facility] Start: 01-25-2025 End: 01-25-2025 Patient encounter procedure 01/25/2025 1:30 PM EDT Office Visit [place] [address] [place] [address] Rosemary Cartagena MD [address] [place] [address] [facility] Start: 12-04-2024 End: 12-04-2024 Patient encounter procedure 12/04/2024 2:20 PM EDT Office Visit [facility] [address] [place] [address] Viky Rollins PA [address] [place] [address] Arrived [facility] Comment on above: Arrived Start: 11-30-2024 End: 11-30-2024 Patient encounter procedure [facility] [place] [address] Start: 11-06-2024 End: 11-06-2024 Patient encounter procedure 11/06/2024 11:45 AM EST Office Visit [place] [address] [place] [address] Rosemary Cartagena MD [address] [place] [address] [facility] Start: 10-27-2024 End: 10-27-2024 Patient encounter procedure 10/27/2024 12:45 PM EST Office Visit [address] [place] [address] Rosemary Cartagena MD [address] [place] [address] [facility] Start: 09-27-2024 End: 09-27-2024 Telemedicine consultation with patient 09/27/2024 8:30 AM EST Telemedicine [facility] [address] [facility] [address] [place] [address] [place] [address] [place] [address] [facility] Start: 09-02-2024 Echocardiography Echocardiogram [facility] Start: 09-01-2024 End: 09-01-2025 Comprehensive metabolic 2000 panel - Serum or Plasma Comprehensive Metabolic Panel Lab Routine 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 Expected: 09/01/2024 (Approximate), Expires: 09/01/2025 [facility] Work Phone: Comment on above: Expected: 09/01/2024 (Approximate), Expi res: 09/01/2025 Start: 08-24-2024 End: 08-24-2024 Patient encounter procedure 08/24/2024 3:00 PM EST Office Visit [facility] [address] [facility] [address] [place] [address] Viky Rollins PA [address] [place] [address] Arrived [facility] Comment on above: Arrived Start: 08-24-2024 End: 08-24-2025 Iron + transferrin + TIBC Iron + transferrin + TIBC Lab Routine Periodic limb movement disorder Expected: 08/24/2024 (Approximate), Expires: 08/24/2025 [facility] Work Phone: Comment on above: Expected: 08/24/2024 (Approximate), Expi res: 08/24/2025 Start: 07-27-2024 End: 07-27-2025 Basic metabolic 2000 panel - Serum or Plasma Basic Metabolic Panel Lab Routine 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 Expected: 07/27/2024 (Approximate), Expires: 07/27/2025 [facility] Service Area Work Phone: Comment on above: Expected: 07/27/2024 (Approximate), Expi res: 07/27/2025 Start: 07-27-2024 End: 07-27-2024 Patient encounter procedure 07/27/2024 2:00 PM EST Office Visit [facility] [address] [facility] [address] [place] [address] Rosemary Cartagena MD [address] [facility] [address] [place] [address] [facility] Start: 07-13-2024 End: 07-13-2024 Patient encounter procedure [facility] [place] [address] Comment on above: Arrived Start: 06-13-2024 End: 06-13-2025 CT Cervical spine WO contrast CT cervical spine wo IV contrast Imaging Routine Hyperreflexia Balance problem Expected: 06/13/2024 (Approximate), Expires: 06/13/2025 [facility] Comment on above: Expected: 06/13/2024 (Approximate), Expi res: 06/13/2025 Start: 06-13-2024 End: 06-13-2025 CT Head WO contrast CT head wo IV contrast Imaging Routine Gait difficulty Balance problem Expected: 06/13/2024 (Approximate), Expires: 06/13/2025 [facility] Work Phone: Comment on above: Expected: 06/13/2024 (Approximate), Expi res: 06/13/2025 Start: 05-14-2024 COVID-19 Vaccine ( season) COVID-19 Vaccine ( season) [facility] Start: 05-14-2024 COVID-19 Vaccine ( season) COVID-19 Vaccine ( season) [facility] Start: 05-14-2024 COVID-19 Vaccine ( season) COVID-19 Vaccine ( season) [facility] Start: 05-14-2024 Influenza vaccination [facility] Start: 05-08-2024 End: 04-24-2025 Basic metabolic 2000 panel - Serum or Plasma Basic Metabolic Panel Lab Routine Congestive heart failure, NYHA class 3, chronic, systolic (Multi) Expected: 05/08/2024 (Approximate), Expires: 04/24/2025 [facility] Service Area Work Phone: Comment on above: Expected: 05/08/2024 (Approximate), Expi res: 04/24/2025 Start: 05-08-2024 End: 04-24-2025 Natriuretic peptide B [Mass/volume] in Blood B-Type Natriuretic Peptide Lab Routine Congestive heart failure, NYHA class 3, chronic, systolic (Multi) Expected: 05/08/2024 (Approximate), Expires: 04/24/2025 [facility] Work Phone: Comment on above: Expected: 05/08/2024 (Approximate), Expi res: 04/24/2025 Start: 02-28-2024 End: 02-28-2024 Patient encounter procedure 02/28/2024 1:45 PM EDT Office Visit [facility] [address] [facility] [address] [place] [address] Rosemary Cartagena MD [address] [place] [address] [address] [place] [address] [facility] Start: 01-31-2024 End: 01-31-2024 Patient encounter procedure 01/31/2024 2:30 PM EDT Office Visit [facility] [address] [facility] [address] [place] [address] Saira Heart, EQUIPMENT ENGINEER-ARMY OFFICER [address] [facility] 2, [address] [place] [address] [facility] Start: 01-03-2024 Glaucoma screening Diabetes: Retinopathy Screening [facility] Start: 12-29-2023 End: 12-29-2023 Patient encounter procedure 12/29/2023 1:30 PM EDT Office Visit [facility] [address] [place] [address] Saira Heart, EQUIPMENT ENGINEER-ARMY OFFICER [address] [facility] 2, [address] [place] [address] [facility] Start: 12-22-2023 End: 12-21-2024 Basic metabolic 2000 panel - Serum or Plasma Basic Metabolic Panel Lab Routine Ischemic cardiomyopathy Expected: 12/22/2023 (Approximate), Expires: 12/21/2024 [facility] Area Work Phone: Comment on above: Expected: 12/22/2023 (Approximate), Expi res: 12/21/2024 Start: 12-03-2023 [facility] Start: 11-24-2023 End: 11-24-2023 Patient encounter procedure 11/24/2023 2:00 PM EDT Office Visit [address] [place] [address] Saira Heart, EQUIPMENT ENGINEER-ARMY OFFICER [address] [facility] [address], [address] [place] [address] [facility] Start: 11-08-2023 End: 10-25-2024 Basic metabolic 2000 panel - Serum or Plasma Basic Metabolic Panel Lab Routine Ischemic cardiomyopathy 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 Medication course changed Expected: 11/08/2023 (Approximate), Expires: 10/25/2024 [facility] Work Phone: Comment on above: Expected: 11/08/2023 (Approximate), Expi res: 10/25/2024 Start: 10-25-2023 End: 10-25-2023 Patient encounter procedure 10/25/2023 2:15 PM EST Office Visit [address] [place] [address] Rosemary Cartagena MD [address] [place] [address] [address] [place] [address] [facility] Start: 09-02-2023 End: 09-02-2023 Patient encounter procedure 09/02/2023 1:30 PM EST Appointment [address] [place] [id number] [facility] Start: 08-30-2023 End: 08-30-2024 CBC panel - Blood by Automated count CBC Lab 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 Expected: 08/30/2023 (Approximate), Expires: 08/30/2024 [facility] Work Phone: Comment on above: Expected: 08/30/2023 (Approximate), Expi res: 08/30/2024 Start: 08-30-2023 End: 08-30-2024 Comprehensive metabolic 2000 panel - Serum or Plasma Comprehensive Metabolic Panel Lab Routine Hx of coronary artery bypass graft Coronary artery disease, unspecified vessel or lesion type, unspecified whether angina present, unspecified whether teller or transplanted heart Sleep apnea, unspecified type Expected: 08/30/2023 (Approximate), Expires: 08/30/2024 [facility] Service Area Work Phone: Comment on above: Expected: 08/30/2023 (Approximate), Expi res: 08/30/2024 Start: 08-30-2023 End: 08-30-2024 Hemoglobin A1c/Hemoglobin.total in Blood Hemoglobin A1C Lab Routine Shortness of breath History of stroke Benign prostatic hyperplasia with lower urinary tract symptoms, symptom details unspecified Ischemic cardiomyopathy Other specified diabetes mellitus with other specified complication, unspecified whether [facility] insulin use (CMS/HCC) Expected: 08/30/2023 (Approximate), Expires: 08/30/2024 [facility] Work Phone: Comment on above: Expected: 08/30/2023 (Approximate), Expi res: 08/30/2024 Start: 08-30-2023 End: 08-30-2024 Lipid 1996 panel - Serum or Plasma Lipid Panel Lab Routine 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 Coronary artery disease, unspecified vessel or lesion type, unspecified whether angina present, unspecified whether teller or transplanted heart Sleep apnea, unspecified type Permanent atrial fibrillation (CMS/HCC) 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 Shortness of breath History of stroke Benign prostatic hyperplasia with lower urinary tract symptoms, symptom details unspecified Ischemic cardiomyopathy Expected: 08/30/2023 (Approximate), Expires: 08/30/2024 [facility] Work Phone: Comment on above: Expected: 08/30/2023 (Approximate), Expi res: 08/30/2024 Start: 08-30-2023 End: 08-30-2024 Natriuretic peptide B [Mass/volume] in Blood B-Type Natriuretic Peptide Lab Routine Abnormal EKG Hx of coronary artery bypass graft Coronary artery disease, unspecified vessel or lesion type, unspecified whether angina present, unspecified whether teller or transplanted heart Permanent atrial fibrillation (CMS/HCC) Shortness of breath Ischemic cardiomyopathy Expected: 08/30/2023 (Approximate), Expires: 08/30/2024 [facility] Work Phone: Comment on above: Expected: 08/30/2023 (Approximate), Expi res: 08/30/2024 Start: 08-30-2023 End: 08-30-2024 Thyrotropin [Units/volume] in Serum or Plasma Thyroid Stimulating Hormone Lab Routine Shortness of breath History of stroke Benign prostatic hyperplasia with lower urinary tract symptoms, symptom details unspecified Ischemic cardiomyopathy Fatigue, unspecified type Expected: 08/30/2023 (Approximate), Expires: 08/30/2024 [facility] Work Phone: Comment on above: Expected: 08/30/2023 (Approximate), Expi res: 08/30/2024 Start: 08-30-2023 End: 08-30-2024 Triiodothyronine (T3) [Mass/volume] in Serum or Plasma Triiodothyronine, Total Lab Routine Shortness of breath History of stroke Benign prostatic hyperplasia with lower urinary tract symptoms, symptom details unspecified Ischemic cardiomyopathy Expected: 08/30/2023 (Approximate), Expires: 08/30/2024 [facility] Work Phone: Comment on above: Expected: 08/30/2023 (Approximate), Expi res: 08/30/2024 Start: 08-30-2023 End: 08-30-2025 US Heart Transthoracic Transthoracic Echo (TTE) Complete Echocardiography Routine Abnormal EKG Sleep apnea, unspecified type Permanent atrial fibrillation (CMS/HCC) Shortness of breath Expected: 08/30/2023 (Approximate), Expires: 08/30/2025 [facility] Work Phone: Comment on above: Expected: 08/30/2023 (Approximate), Expi res: 08/30/2025 Start: 07-25-2023 Screening for osteoporosis Bone Density Scan [facility] Start: 05-14-2023 COVID-19 Vaccine ( season) COVID-19 Vaccine ( season) [facility] Start: 05-14-2023 COVID-19 Vaccine () COVID-19 Vaccine () [facility] Start: 05-14-2023 Influenza vaccination Influenza Vaccine (#1) [facility] Start: 01-02-2023 Glaucoma screening Diabetes: Retinopathy Screening [facility] Start: 07-25-2022 Screening for osteoporosis Bone Density Scan [facility] Start: 07-22-2021 DTaP/Tdap/Td Vaccines (1 - Tdap) DTaP/Tdap/Td Vaccines (1 - Tdap) [facility] Start: 06-12-2020 Creatinine monitoring Creatinine monitoring [place], [place] Start: 06-12-2020 Potassium monitoring Potassium monitoring [place], [place] Start: 05-14-2019 Influenza vaccination Flu vaccine (#1) [place], [place] Start: 03-05-2019 Annual Wellness Visit (AWV) Annual Wellness Visit (AWV) [place], [place] Start: 2017 RSV High Risk: (Elderly (60+) or Population) (1 - 1-dose 75+ series) RSV High Risk: (Elderly (60+) or Population) (1 - 1-dose 75+ series) [facility] Start: 12-19-2007 Pneumococcal 65+ years Vaccine (1 of 2 - PCV13) Pneumococcal 65+ years Vaccine (1 of 2 - PCV13) [place] Start: 2002 RSV patients and/or patients aged 60+ years (1 - 1-dose 60+ series) RSV patients and/or patients aged 60+ years (1 - 1-dose 60+ series) [facility] Start: 1992 Shingles Vaccine (1 of 2) Shingles Vaccine (1 of 2) [place], [place] Start: 1992 Zoster Vaccines (1 of 2) Zoster Vaccines (1 of 2) [facility] Start: 1961 DTaP/Tdap/Td vaccine (1 - Tdap) DTaP/Tdap/Td vaccine (1 - Tdap) [place], [place] Start: 1961 Urine screening for protein Diabetes: Urine Protein Screening [facility] Start: 1952 Diabetic foot examination Diabetes: Foot Exam [facility] Start: 1948 Pneumococcal Vaccine: 65+ Years (1 - PCV) Pneumococcal Vaccine: 65+ Years (1 - PCV) [facility] Start: 1948 Pneumococcal Vaccine: 65+ Years (1 of 2 - PCV) Pneumococcal Vaccine: 65+ Years (1 of 2 - PCV) [facility] Start: 06-19-1943 COVID-19 Vaccine (#1) COVID-19 Vaccine (#1) [facility] Start: 1942 Creatinine measurement Creatinine Level [facility] Start: 1942 Hemoglobin A1c measurement Diabetes: Hemoglobin A1C [facility] Start: 1942 Lipid panel Lipid Panel [facility] Start: 1942 Medicare Annual Wellness Visit Medicare Annual Wellness Visit (AWV) [facility] Start: 1942 Potassium measurement Potassium Level [facility] Start: 1942 Urine screening for protein Diabetes: Urine Protein Screening [facility] End: 10-20-2024 Basic metabolic 2000 panel - Serum or Plasma Basic metabolic panel Lab STAT STAT (Lab) for 1 Occurrences starting 10/20/2024 until 10/20/2024 [facility] Service Area Work Phone: Comment on above: STAT (Lab) for 1 Occurrences starting until 10/20/2024 End: 10-23-2024 Basic metabolic 2000 panel - Serum or Plasma Basic Metabolic Panel Lab Routine Morning draw (Lab) for 3 Occurrences starting 10/21/2024 until 10/23/2024, 1 completed [facility] Work Phone: Comment on above: Morning draw (Lab) for 3 Occurrences sta rting 10/21/2024 until 10/23/2024, 1 completed End: 06-12-2019 Cardiac catheterization Cardiac Catheterization Cardiac Cath Routine One Time for 1 Occurrences starting 06/12/2019 until 06/12/2019 [facility] [place] Comment on above: One Time for 1 Occurrences starting 05/16 until 06/12/2019 End: 09-29-2024 Cardiac catheterization study [facility] Service Area Work Phone: Comment on above: Once for 1 Occurrences starting 09/29/19 until 09/29/2024 Cardiac Device Check - Surgery Cardiac Device Check - Surgery Implantable Cardiac Device Routine Atrial fibrillation (Multi) 10/20/2024 4:42 PM EST [facility] Work Phone: End: 10-20-2024 CBC W Auto Differential panel - Blood CBC and Auto Differential Lab STAT STAT (Lab) for 1 Occurrences starting 10/20/2024 until 10/20/2024 [facility] Work Phone: Comment on above: STAT (Lab) for 1 Occurrences starting until 10/20/2024 End: 10-23-2024 CBC W Auto Differential panel - Blood CBC and Auto Differential Lab Routine Morning draw (Lab) for 3 Occurrences starting 10/21/2024 until 10/23/2024, 1 completed [facility] Work Phone: Comment on above: Morning draw (Lab) for 3 Occurrences sta rting 10/21/2024 until 10/23/2024, 1 completed End: 10-20-2024 ECG 12 lead [facility] Work Phone: Comment on above: Once for 1 Occurrences starting 10/20/19 until 10/20/2024 As needed until disc ontinued starting 10/20/2024 End: 10-22-2024 ECG 12 lead daily ECG 12 lead daily ECG Routine Daily for 3 Days starting 10/20/2024 until 10/22/2024 [facility] Work Phone: Comment on above: Daily for 3 Days starting 10/20/2024 unt il 10/22/2024 Glucose measurement estimated from glycated hemoglobin [facility] End: 10-20-2024 Incentive spirometry Instruct Incentive spirometry Instruct Respiratory Care Routine Once for 1 Occurrences starting 10/20/2024 until 10/20/2024 [facility] Work Phone: Comment on above: Once for 1 Occurrences starting 10/20/19 until 10/20/2024 Initiate Oxygen Ther apy Protocol Initiate Oxygen Therapy Protocol Respiratory Care Routine Daily until discontinued starting 06/12/2019 [facility] Comment on above: Daily until discontinued starting 2018 End: 10-20-2024 Magnesium [Mass/volume] in Serum or Plasma Magnesium Lab STAT STAT (Lab) for 1 Occurrences starting 10/20/2024 until 10/20/2024 [facility] Work Phone: Comment on above: STAT (Lab) for 1 Occurrences starting until 10/20/2024 End: 10-23-2024 Magnesium [Mass/volume] in Serum or Plasma Magnesium Lab Routine Morning draw (Lab) for 3 Occurrences starting 10/21/2024 until 10/23/2024, 1 completed [facility] Work Phone: Comment on above: Morning [...] Care Routine Continuous until discontinued starting 10/20/2024 [facility] Work Phone: Comment on above: Continuous until discontinued starting 0 10/20/2024 POCT glucose [facility] [place] Comment on above: 4X Daily (AC & HS) until discontinued st arting 06/12/2019 As Needed until disc ontinued starting 06/12/2019 End: 10-20-2024 Prothrombin time (PT) Protime-INR Lab STAT STAT (Lab) for 1 Occurrences starting 10/20/2024 until 10/20/2024 [facility] Work Phone: Comment on above: STAT (Lab) for 1 Occurrences starting until 10/20/2024 End: 10-23-2024 Prothrombin time (PT) Protime-INR Lab Routine Morning draw (Lab) for 3 Occurrences starting 10/21/2024 until 10/23/2024, 1 completed [facility] Work Phone: Comment on above: Morning draw (Lab) for 3 Occurrences sta rting 10/21/2024 until 10/23/2024, 1 completed Pulse oximetry, continuous Pulse oximetry, continuous Respiratory Care Routine Every 4hr until discontinued starting 06/12/2019 [place], [place] Comment on above: Every 4hr until discontinued starting XR CHEST STANDARD (2 VW) XR CHES T STANDARD (2 VW) Imaging Routine 06/13/2019 10:36 AM EDT [facility] Immunizations Immunization Date Immunization Notes Care Provider Mayank ybarra 06-30-2024 influenza virus vacc ine, unspecified formulation Petr [employer] [facility] 08-13-2023 influenza virus vacc ine, unspecified formulation Rosemary Cartagena MD Work Phone: [facility] Work Phone: 08-09-2023 influenza virus vacc ine, unspecified formulation Petr CINTHYA [facility] 08-29-2022 influenza virus vacc ine, unspecified formulation Petr [employer] [facility] 06-08-2022 influenza virus vacc ine, unspecified formulation [employer]r [employer] [facility] 09-01-2021 SARS-CoV-2 (COVID-19 ) mRNA BNT-162b2 vax [employer]r [employer] [facility] 11-08-2021 diphtheria, tetanus toxoids and acellular pertussis vaccine Osvaldo Maciel Other [facility] 07-21-2021 diphtheria, tetanus toxoids and acellular pertussis vaccine, unspecified formulation DO Shanique Anderson Work Phone: [facility] 06-13-2021 Flu Vaccine - Adult DO Redd Anderson Work Phone: [facility] 06-13-2021 influenza, seasonal, injectable DO Shanique Anderson Work Phone: [facility] 03-04-2021 SARS-CoV-2 (COVID-19 ) mRNA BNT-162b2 vax Petr [employer] [facility] 02-11-2021 SARS-CoV-2 (COVID-19 ) mRNA BNT-162b2 vax Petr [employer] [facility] 11-03-2020 COVID-19 mRNA, Comir jenna (Pfizer) DO Shanique Anderson Work Phone: [facility] Comment on above: Result Comment: 2024: [id number] 10-13-2020 COVID-19 mRNA, Comir jenna (Pfizer) DO Shanique Anderson Work Phone: [facility] Comment on above: Result Comment: 2024: [id number] 08-31-2020 influenza virus vacc ine, unspecified formulation [employer] [facility] 05-27-2020 influenza virus vacc ine, unspecified formulation [employer] [facility] 06-24-2019 influenza virus vacc ine, unspecified formulation [employer] [facility] 01-12-2019 zoster vaccine recombinant [employer]r [employer] [facility] 06-29-2018 pneumococcal polysaccharide vaccine, 23 valent [employer]r [employer] [facility] 06-24-2018 zoster vaccine recombinant [employer]r [employer] [facility] 05-18-2018 influenza virus vacc ine, unspecified formulation [employer] [facility] 06-02-2017 influenza virus vacc ine, unspecified formulation [employer] [facility] 09-07-2016 influenza virus vacc ine, unspecified formulation [employer] [facility] 06-10-2016 influenza virus vacc ine, unspecified formulation [employer] [facility] 06-10-2016 pneumococcal polysaccharide vaccine, 23 valent [employer]r [employer] [facility] 05-29-2016 pneumococcal polysaccharide vaccine, 23 valent [employer] [facility] 08-01-2015 influenza virus vacc ine, unspecified formulation [employer] [facility] 05-29-2015 influenza virus vacc ine, unspecified formulation [employer] [facility] 05-29-2015 pneumococcal conjuga te vaccine, 13 valent [employer] [facility] 04-11-2015 pneumococcal conjuga te vaccine, 13 valent [employer] [facility] 06-10-2014 influenza virus vacc ine, unspecified formulation [employer] [facility] 06-13-2013 DTaP, unspecified formulation [employer] [facility] 05-24-2013 influenza virus vacc ine, unspecified formulation [employer] [facility] 07-14-2011 influenza virus vacc ine, unspecified formulation [employer] [place] 06-16-2010 pneumococcal polysaccharide vaccine, 23 valent [employer] [facility] Payers Date Payer Category Payer Private Health Insurance [id number] 2024 Unknown [id number] 2023 () [id number] 2022 [employer] ( and others) [id number] .[id number] 2022 For Life (TFL) F OR LIFE [id number] 2018 Medicare MEDICARE MEDICAR E PART A AND B xxxxxxxxxxx 2018-Present [phone] [place] [address] xxxxxxxxxxx [id number] 2016 [employer] ( and others) FOR LIFE MEDICARE SUPP xxxxxxxxx 2016-Present C/O [employer]/ [address] [place] [address] xxxxxxxxx [id number] .[id number] 2014 Medicare [id number] 2007 Medicare [id number] .[id number] 1959 [employer] ( and others) [id number] Medicare [id number] 1959 Self-pay [id number] 1942 Unknown [id number] 2.16.840.1.321411.3.579.2 .175 1942 Unknown [id number] 2.16.840.1.791770.3.579.2 .593 1942 Unknown [id number] 2.16.840.1.591900.3.579.2 .593 1942 Unknown [id number] 2.16.840.1.358494.3.579.2 .593 1942 Unknown [id number] 2.16.840.1.140275.3.579.2 .593 1942 Unknown [id number] 2.16.840.1.645664.3.579.2 .593 1942 Unknown [id number] 2.16.840.1.865030.3.579.2 .593 1942 Unknown [id number] 2.16.840.1.416374.3.579.2 .1246 1942 Unknown [id number] 2.16.840.1.969733.3.579.2 .1259 1942 Unknown [id number] 2.16.840.1.904921.3.579.2 .1259 1942 Unknown [id number] 2.840.1.964642.3.579.2 .1259 1942 Unknown [id number] 2.840.1.330151.3.579.2 .1259 1942 Unknown [id number] 2.840.1.443340.3.579.2 .1259 1942 Unknown [id number] 2.840.1.190742.3.579.2 .1259 1942 Unknown [id number] 2.840.1.825277.3.579.2 .124 1942 Unknown [id number] 2.840.1.738302.3.579.2 .1245 1942 Unknown [id number] 2.840.1.660930.3.579.2 .124 1942 Unknown [id number] 2.840.1.431175.3.579.2 .124 1942 Unknown [id number] 2.16840.1.504583.3.579.2 .124 1942 Unknown [id number] 2.16840.1.784590.3.579.2 .1244 1942 Unknown [id number] 2.16840.1.353818.3.579.2 .1244 1942 Unknown [id number] 2.16.840.1.230498.3.579.2 .1244 1942 Unknown [id number] 2.16.840.1.172966.3.579.2 .1244 1942 Unknown [id number] 2.16.840.1.531039.3.579.2 .1244 1942 Unknown [id number] 2.16.840.1.599368.3.579.2 .727 1942 Unknown [id number] 2.16.840.1.599189.3.579.2 .727 1942 Unknown [id number] 2.16.840.1.056678.3.579.2 .727 1942 Unknown [id number] 2.16.840.1.031323.3.579.2 .727 1942 Unknown [id number] 2.16.840.1.590862.3.579.2 .727 1942 Unknown [id number] 2.16.840.1.893388.3.579.2 .727 1942 Unknown [id number] 2.16.840.1.180383.3.579.2 .727 Unknown [id number] 2.16.840.1.739911.3.579.2 .531 Unknown [id number] 2.16840.1.554772.3.579.2 .531 Unknown [id number] 2.16.840.1.327782.3.579.2 .531 Unknown [id number] 2.16.840.1.401861.3.579.2 .531 Unknown [id number] 2.16.840.1.683170.3.579.2 .531 Unknown [id number] 2.16.840.1.295910.3.579.2 .531 Social History Date Type Detail Facility Start: 06-12-2019 End: 04-17-2025 Tobacco smoking status NHIS Former smoker [facility] Start: 09-13-1958 End: 09-13-2011 [facility] use [facility]: [facility] End: 09-13-2011 [facility]: 06-12[facility]2019 End: 01-31-2025 Cigarettes smoked current (pack per day) - [facility] Start: 06-12-2019 End: 01-31-2025 Alcohol intake No [facility] Start: 05-06-2015 Tobacco Comment quit x 5 year [facility] Start: 1942 Sex Assigned At Not on file [facility] Start: 1940 Sex Assigned At Male [facility] Start: 08-30-2023 End: 01-24-2024 Tobacco use and exposure Smokeless tobacco non-user [facility] Work Phone: Start: 08-30-2023 End: 10-20-2024 Alcohol intake Current drinker of alcohol (finding) [facility] Work Phone: Start: 08-30-2023 Alcohol Comment 1 YEARLY [facility] Work Phone: Start: 08-20-2023 End: 10-27-2024 Exposure to SARS-CoV-2 (event) Not sure [facility] Tobacco smoking status [facility] Start: 01-24-2024 Tobacco smoking status NHIS Never smoked tobacco [facility] Start: 02-23-2024 End: 01-31-2025 Alcoholic beverage intake Lifetime non-drinker (finding) [facility] Start: 09-17-2024 End: 09-27-2024 Exposure to SARS-CoV-2 (event) Unable to assess [facility] Start: 10-20-2024 Gender identity Identifies as male gender (finding) [facility] Work Phone: Start: 10-20-2024 Sexual orientation Heterosexual (finding) [facility] Work Phone: How often to you hav e a drink containing alcohol? Never [facility] Work Phone: How many standard drinks containing alcohol do you have on a typical day? Patient does not drink [facility] Work Phone: In the past 12 month s, was there a time when you were not able to pay the mortgage or rent on time? No [facility] Work Phone: Start: 10-27-2024 Alcoholic beverage intake Ex-drinker (finding) [facility] Work Phone: Start: 12-21-2024 Sex Male (finding) [facility] Medical Equipment Procedure Code Equipment Code Equipment Origin al Text Equipment Identifier Dates Cement Barium Radiopq Full 40gr [id number] Start: 12-02-2017 Cement Barium Radiopq Full 40gr [id number] Start: 12-02-2017 Impl Knee X3 Patella [id number] Star t: 12-02-2017 Impl Capped Knee Advanced _imp Start: 12-02-2017 Impl Knee Fem Co mp Cmntd Sz 6 _imp Start: 12-02-2017 Impl Knee Patell a Asym X3 [id number] Start: 12-02-2017 Impl Knee Tib Baseplt Prime Sz 6 _imp Start: 12-02-2017 Impl Knee Tib In srt Postr X3 Sz6 11mm [id number] Start: 12-02-2017 Stimulator Neuro Pulse [id number] Start: 04-27-2017 Pacemaker 10196_exp Pacemaker 10196_imp Lt Knee 10197_exp Lt Knee 10197_imp Device, Closure, 35mm Watchman Flx Pro Laac - [id number] Start: 10-20-2024 Goals Date Patient Goal Desired Activity /State Functional Status Date Assessment Result Facility 07-25-2024 Functional Status N/A [facility] 06-15-2024 Functional Status N/A [facility] 04-25-2024 Functional Status N/A [facility] Clinical Notes 06-16-2021 to 03-21-2025 Note Date & Type Note Facility 03-21-2025 Evaluation note Diagnosis Onset Date Resolution Exocrine pancreatic insufficiency acute March 21, 2025 11:23am GERD (gastroesophageal reflux disease) acute March 21, 2025 11:23am [facility] Work Phone: 1(732) 220-763905-21-2025 History of Present illness Narrative* RAÚL Yarbrough - 01/31/2025 2:20 PM EDT [...] triceps, wrist extensors, wrist extensors, wrist flexor, presentation team member strength 5/5. LUE Strength deltoid, biceps, triceps, wrist extensors, wrist extensors, wrist flexor, presentation team member strength 5/5. RLE Strength illopsoas, quadriceps, tibialis anterior, and gastrocnemius strength 5/5. LLE Strength illopsoas, quadriceps, tibialis anterior, and gastrocnemius strength 5/5. Tone Normal tone x4 extremities. Reflexes: RUE biceps reflex 2, LUE biceps reflex 2, RLE knee reflex 1, LLE knee reflex 1, Assessment and Plan Cerebrovascular accident (CVA), unspecified mechanism (CMS/[facility]) Patient with history of stroke which likely [...] Patient with history of stroke and Agent [employer] exposure contributing to PTSD. He also has [...] diabetic and was also exposed to [employer] per his 's report. He experienced worsening bradykinesia with Sinemet lowering. He presented to [facility] 09/02/21 for increase in lower extremity weakness. [...] up in 2-3 months documented in this encounterChildren's Mercy [id number] NotePatient Education Urology Phimosis, Pediatric Phimosis is a [...] using a balloon catheter. This is called manualdilation and stretching. ??? Having a procedure to [...] provider. Document Revised: 08/13/2022 Document Reviewed: 08/13/2022 [employer] Patient Education ? 2023 [employer] 11-09-2024 Telephone encounter Note* Telephone Encounter - James Garcia MA - 11/09/2024 10:56 AM EST The pt calls stating that the pt will run out of medication before f/u appt. 08/24/24 Continue Valium 2mg 1 tab PO at bedtime adjusted per Dr. Gaona. Lower Sinemet 10-100mg to 2 times per day to reassess symptoms of depression. His feel he is worse with medication. May need to add another medication if bradykinesias worsen. Oarrs reviewed due now [facility] [id number] Miscellaneous Notes* Telephone Encounter - James Garcia MA - 11/09/2024 10:56 AM EST The pt calls stating that the pt [...] Oarrs reviewed due now documented in this encounterChildren's Mercy NorthlandGchlvqhehf53-71-8106 History of Present illness Narrative* Rosemary Cartagena MD - 10/27/2024 2:45 PM EST Patient underwent Watchman device implantation without incident. Accompanied by to the office.Remains in atrial fibrillation. 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 Hx of coronary artery bypass graft 3. Ischemic cardiomyopathy 4. 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 5. Presence of Watchman left atrial appendage closure device 6. 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 Other specified diabetes mellitus with other specified complication, 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 (Multi) 8. Parkinson's disease, unspecified [...] exam, discussion and plan. documented in this [facility] Work Phone: 1(456) 797-945702-14-2025 Instructions* Patient Instructions* Shanna Stout RN - 10/27/2024 2:45 PM [...] Provided instructions on exercise. documented in this [facility] Work Phone: 1(557) 351-978602-08-2025 Plan of care note* Care Plan - Mari Martínez RN - 10/21/2024 1:07 PM EST The patient's goals for the shift include rest The clinical goals for the shift include conetinue to be HDS and DC today Pt is discharged to home with family. Pt stable throughout the shift. No complaints of pain this shift. No concerns at this time [facility]02-08-2025 Miscellaneous Notes* Care Plan - Mari Martínez RN - 10/21/2024 1:07 PM EST The patient's goals for the shift include rest The clinical goals for the shift include conetinue to be HDS and DC today Pt is discharged to home with family. Pt stable throughout the shift. No complaints of pain this shift. No concerns at this time * Care Plan - Dominique Forrest RN - 10/21/2024 1:56 AM EST The patient's goals for the shift include The clinical goals for the shift include Pt will sleep a minimum of 4 hours by the end of this shift Problem: Skin Goal: Participates in plan/prevention/treatment measures Outcome: Progressing Goal: Prevent/manage excess moisture Outcome: Progressing Goal: Prevent/minimize sheer/friction injuries Outcome: Progressing * Post-Procedure Note - Marvin Rascon MD - 10/20/2024 5:00 PM EST S/p CATHY closure Access: Dual right femoral [...] monitoring period is complete documented in this [facility] Work Phone: 1(666) 282-404102-08-2025 History of Present illness Narrative* Winnie Harris RN - 10/21/2024 12:09 PM EST 10/21/24 1159 Discharge Planning Living Arrangements Spouse/significant other Support Systems Spouse/significant other Assistance Needed has VP DESIGN Type of Residence Home care staff Do [...] to pay the mortgage or rent on time?N In the past 12 months, how many times have you moved where you were living? 0 At any time in the past 12 months, were you homeless or living in a nursing home (including now)? N Transportation Needs In the past 12 months, has lack of transportation kept you from medical appointments or from getting medications? no In the past 12 months, has lack of transportation kept you from meetings, work, or from getting things needed for daily living? No Patient Choice Provider Choice list and CMS website (https://medicare.gov/care-compare#search) for post-acute Quality and Resource Measure Data were provided and reviewed with: (n/a) Patient / Family choosing to utilize agency / facility established prior to hospitalization No Stroke Family Assessment Stroke Family Assessment Needed No Intensity of Service Intensity of Service 0-30 min TCC spoke with pt's spouse. She states they are waiting for a ride home today and will be picked upby pt's VP DESIGN. Pt receiving daily aide services thru the [facility] agency. Spouse states he has PCP at [facility] (Dr Anderson) and [facility] (Dr. Shirley). [facility]et [facility] [facility] and [facility]. Vet has MCR A and B and insurance. No needs identified at this time. Vet to follow up as recommended. Winnie Harris RN (Weekend Transitional Husker Operator-TCC, send Epic message) * Ya Pop PharmD - 10/20/2024 1:59 PM EST Pharmacy Medication History Review Yoana Ibrahim is a 83 y.o. male admitted for Atrial fibrillation (Multi). Pharmacy reviewed the patient's trkgl-jl-coastyqdx medications and allergies for accuracy. The list below reflects the updated SENIOR UI SOFTWARE ENGINEER list. Prior to Admission Medications Prescriptions Last [...] release 24 hr 24 hr tablet 10/20/2024 Spouse/SignificantOther Sig: Take 1 tablet (50 mg) by [...] at discharge. Pharmacy has been updated to [facility] in [place]. Sources used to complete the med history include: [facility] Pharmacy dispense history Spouse, Good historian Chart Review Care Everywhere [facility] fill history Cardio visit 09/01/24 Below are additional concerns with the patient's SENIOR UI SOFTWARE ENGINEER list. Patient is taking Entresto 24-26 (twice daily) and stopped taking Entresto 49-51. Please read comments above in RED Patient currently has the Rivastegmine patch on Patient takes sinemet differently: twice daily instead of tid. Medications ADDED: Myrebtriq Fexofenadine Medications CHANGED: Lantus to 15 units Creon directions Medications REMOVED: Refresh tears Perphenazine Entresto 49-51 Ya Pop PharmD Transitions of Care Pharmacist [facility] Please reach out via Secure Chat for questions, or if no response call Intellijoule or Hers documented in this encounterUnUniversity [facility]als [facility] System Work Phone: 1([phone]) 239-201402-08-2025 Plan of care note* Care Plan - Dominique Forrest RN - 10/21/2024 1:56 AM EST The patient's goals for the shift include The clinical goals for the shift include Pt will sleep a minimum of 4 hours by the end of this shift Problem: Skin Goal: Participates in plan/prevention/treatment measures Outcome: Progressing Goal: Prevent/manage excess moisture Outcome: Progressing Goal: Prevent/minimize sheer/friction injuries Outcome: Progressing [facility] Work Phone: 1(295) 852-140002-07-2025 Note* Post-Procedure Note - Marvin Rascon MD - 10/20/2024 5:00 PM EST S/p CATHY closure Access: Dual right femoral [...] once recovery and monitoring period is complete [facility] Work Phone: 1(562) 936-609002-06-2025 Hospital Discharge instructions* Discharge Instructions* Monse Hali Landers APRN-ARMY OFFICER - 10/19/2024 2:28 PM EST Watchman Discharge [...] take any non-prescriptive medications that contain alcohol forthe first 24 hours. DO NOT make any [...] minimal inflammation. If you have any concerns, youmay contact the Software Product Specialist or if any of these symptoms become excessive, contact your cobol engineer orgo to the emergency room. No tub baths, [...] OF HEART FAILURE: 1. Chest pain 2. SignificantShortness of breath 3. Fainting. Call Provider If [...] you have any questions or concerns - [phone] [place] nurse coordinator Betty Dolan's phone is [phone]. documented in this encounterDetwiler [facility] Hospital Work Phone: 1(368) 914-214301-15-2025 History of Present illness Narrative* Glenroy Lea MD - 09/27/2024 8:30 AM EST Images from the original note were not included. PCP: Dr. Stein Cardio: Dr. Cartagena This was a virtual encounter. Total [place] 63 mins, 31 mins face to face. I was asked by Dr. Cartagena to evaluate this patient in consultation for evaluation of left atrial appendage closure. The patient is a [age]yo, male with PMH of chronic systolic left heart failure, HFrEF, secondary to ischemic cardiomyopathy, LVEF 30%, sick sinus syndrome dual- chamber pacemaker, hypertension, hyperlipidemia, Coronary artery bypass grafting with SAMUEL to LAD SVG to PDA, Obstructive sleep apnea, TIA December 2016, Left upper extremity DVT , Urinary and bowel incontinence related to radiation therapy forprostate cancer Insulin requiring diabetes and mild neurocognitive [...] placed or performed in visit on 05[facility]10/24 [facility] Basic Metabolic Panel Collection Time: 05/10/24 2:38 PM Result Value Ref Range NON- HIE Glucose 286 (H) 70 - 100 [...] HIE Calcium 8.6 8.6 - 10.3 mg/dL [facility] B-Type Natriuretic Peptide Collection Time: 05/10/24 [...] capsule,delayed release(DR/EC) capsule 2 capsules, 3 times daily(morning, midday, late afternoon) [...] wheelchair. He has had several episodes of fallsfromhis gait instability, that in some episodes required ER visits, and was referred for evaluationfor watchman device. Given the patient's significant risk of fall and gait instability and the needof anticoagulant therapy for chronic atrial fibrillation, the patient is referred for considerationof left atrial appendage closure for stroke risk [...] vascular complications, sedation related complications, risk of WI, CVA, device embolization, pericardial tamponade and . [...] care of this patient. Fabiano Pickering MD Pet Handler, Interventional Cardiology Fellowship Program [facility] Office documented in this [facility] Work Phone: 1(794) 151-289112-20-2024 History of Present illness Narrative* Rosemary Cartagena MD - 09/01/2024 1:45 PM EST This is a follow-up from 07/27/2024. 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 Congestive heart failure, NYHA class 3, chronic, systolic 2. Nonrheumatic mitral valve regurgitation 3. ICD (implantable cardioverter-defibrillator) in place 4. 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 5. Obstructive sleep [...] exam, discussion and plan. documented in this [facility] Work Phone: 1(360) 627-380812-20-2024 Instructions* Patient Instructions* Heaven Shah LPN - 09/01/2024 1:45 PM [...] follow up per routine documented in this [facility] Work Phone: [phone]) 831-173211-14-2024 History of Present illness Narrative* Rosemary Cartagena MD - 07/27/2024 2:00 PM EST Images from the original note were not included. This is a follow-up from April 2024. At that time we uptitrated Entresto to 24/20 6 in the morningand 49/50 1 in the evening. Blood work was ordered. Patient is accompanied by and grandson. Grandson is an ER nurse in [place]. Both and grandson report significant deterioration in [...] capsule,delayed release(DR/EC) capsule 2 capsules, 3 times daily(morning, midday, late afternoon) [...] features (Multi) 10/25/2023 Sacroiliitis, not elsewhere classified ([facility]) 10/25/2023 Idiopathic chronic pancreatitis (Multi) 10/25/2023 [...] bypass graft 08/30/2023 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 08/30/2023 Obstructive sleep [...] cardiomyopathy sacubitriL-valsartan (Entresto) 24-26 mg tablet 6. 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 Former smoker 8. Body mass index (BMI) 28.0-28.9, adult 9. Permanent atrial fibrillation (Multi) ECG 12 Lead 10. Parkinson's disease, unspecified whether dyskinesia present, unspecified whether manifestationsfluctuate Referral to Cardiac Electrophysiology 11. Falls frequently Referral to Cardiac Electrophysiology Clinical decision making: Patient with high NQI6HL5-OYMg score and high Hasbled score. Permanent atrial [...] 83-year-old with CKD that fluctuates between stage IIIaand B, is unfavorable, we will discontinue the [...] evaluated by me and is referred to [facility] for a left atrial appendage implant due thromboembolic stroke risk from atrial fibrillation with CHADS2 score >= 2 or a CCY5RO2-CYOm score >= 3. This patient is not a good candidate for extermination supervisor anticoagulation for the following reason(s): This patient [...] exam, discussion and plan. documented in this [facility] Work Phone: 1(895) 587-133011-14-2024 Instructions* Patient Instructions* Heaven Shah LPN - 07/27/2024 2:00 PM [...] Provided instructions on exercise. documented in this [facility] Work Phone: [phone]) 447-190011-12-2024 Hospital Discharge instructions Patient Education 07/25/2024 14:17:39 Urinary Incontinence Urinary Incontinence Urinary incontinence refers to a condition in which a person is unable to control where and when topass urine. A person with this condition will urinate involuntarily. This means that the person urinates when he or she does not mean to. What are the causes? This condition may be caused by: Medicines. Infections. Constipation. Overactive bladder muscles. Weak bladder muscles. Weak pelvic floor muscles. These muscles provide support for the bladder, intestine, and, in women,the uterus. Enlarged prostate in men. The prostate [...] a small amount, or constantly dribbling urine (overflowincontinence). Urinating because you cannot get to the [...] fiber include beans, whole grains, and fresh fruitsand vegetables. Behavioral changes, such as: ?Pelvic floor [...] nerve stimulation). ?For women, using a medical scribe to prevent urine leaks. This is a small, tampon-like, disposabledevice that is inserted into the urethra. ?Injecting [...] right after experiencing incontinence. General instructions Take ejmk-yun-aahggab and prescription medicines only as told by [...] important. Where to find more information National [place] of Diabetes and Digestive and Kidney Diseases: www.niddk.nih.gov [place] [employer]: www.urologyhealth.org Contact a health care [...] is unable to control where and when topass urine. This condition may be caused by medicines, infection, weak bladder muscles, weak pelvic floor muscles, enlargement of the prostate (in men), or surgery. Factors such as older age, obesity, and childbirth, menopause, neurological diseases, andchronic coughing may increase your risk for developing [...] provider. Document Revised: 04/04/2021 Document Reviewed: 04/04/2021 [employer] Patient Education 2023 [employer]. 07/25/2024 14:17:38 Benign Prostatic Hyperplasia Benign Prostatic Hyperplasia Benign prostatic hyperplasia (BPH) is an enlarged prostate gland that is caused by the normal agingprocess. The prostate may get bigger as a man gets older. The condition is not caused by cancer. The prostate is a walnut-sized gland that is involved in the production of semen. It is located in front of the rectum and below the bladder. The bladder stores urine. The urethra carries stored urine ou t of the body. An enlarged prostate can press on the urethra. This can make it harder to pass urine. The buildup of urine in the bladder can cause infection. Back pressure and infection may progress to bladder damage and kidney (renal) failure. What are the causes? This condition is part of the normal aging process. However, not all men develop problems from thiscondition. If the prostate enlarges away from the [...] urethra. Follow these instructions at home: Take dzky-uwd-fvnaskk and prescription medicines only as told by [...] provider. Document Revised: 03/18/2022 Document Reviewed: 03/18/2022 [employer] Patient Education 2023 [employer]. 07/25/2024 14:17:37 Paraphimosis Paraphimosis Paraphimosis is a [...] pressure to the area. General instructions Take tkpt-xhc-wyovudz and prescription medicines only as told by [...] and water are not available, use hand home office claims examiner. ?Ask when you should remove your dressing. [...] pulled back. Paraphimosis needs to be treated rightaway. Take uyec-tdk-awchooc and prescription medicines only as told by [...] provider. Document Revised: 08/13/2022 Document Reviewed: 08/13/2022 [employer] Patient Education 2023 [employer]. Follow Up Care 06/15/2024 10:57:21 With:CINTHYA SANCHEZ, Petr Richard, URL Address: [address] [place], [place] [id number]- When: Unknown Comments:2 mos w/ PSA [facility] 11-12-2024 NotePatient Education Urology Urinary Incontinence Urinary incontinence refers to a condition in which a person is unable to control where and when topass urine. A person with this condition will [...] move out of place and into the vagina.This movement can prevent the bladder and urethra [...] the bladder, urethra, and sphincter can store andrelease urine. There are different types of urodynamic [...] of moderate-intensity exercise every week. Ask your healthcare provider which activities are safe for you. [...] urges. This can include distraction techniques or controlledbreathing exercises. ??? Medicines, such as: ? Medicines to relax the bladder muscles and prevent bladder spasms. ? Medicines to help slow or prevent the growth of a man's prostate. ? Botox injections. These can help relax the bladder muscles. ??? Treatments, such as: ? Using pulses of electricity to help change bladder reflexes (electrical nerve stimulation). ? For women, using a medical scribe to prevent urine leaks. This is a [...] your health care provider (more content not included)...[facility] 06-15-2024 NoteProgress Note-Physician Patient: YOANA IBRAHIM Age: 83 years Sex: Male : 1940 Associated Diagnoses: None Author: Petr PAINTING MD ROS & PFSH Reviewed I have reviewed [...] afterwards, # 2 tab(s), Refills(s) 0, Pharmacy: [facility]/pharmacy #[id number], 167, cm, 04/25/24 13:59:00 EDT, Height/Length Dosing, 72, kg, 04/25/24 13:59:00 EDT, Weight Dosing Myrbetriq 50 mg oral tablet, extended release: 50 mg = 1 tab(s), Oral, Daily, # 30 tab(s), Refills(s) 11, Pharmacy: [facility]/pharmacy #[id number], 167, cm, 06/15/24 10:14:00 EDT, [...] and Minerals: Daily, Refill(s) 0 Potassium Chloride (Jsw-Liqr-Far 10) 10 mEq oral tablet, extended release: 10 mEq = 1 tab(s), Oral,Daily, Refills(s) 0 apixaban 5 mg oral tablet: [...] = 0.5 tab(s), Oral, Daily Potassium Chloride (Ugf-Ydxp-Xcj 10) 10 mEq oral tablet, extended release 10 mEq = 1 tab(s), Oral, Daily psyllium oral powder 6 gm, Oral, BID rivastigmine 13.3 mg/24 hr transdermal film, extended release 1 patch(es), Topical, Daily tamsulosin 0.4 mg Cap 0.4 mg = 1 cap(s), Oral, Bedtime Problem list: All Problems History of prostate cancer / SNOMED CT 7783668271 / Confirmed Anxiety / SNOMED CT 82337879 / Confirmed Pancreatic insufficiency / SN (more content not included)...[facility]:Result Comment: Electronically Signed By: Petr PAINTING MD\.br\Date and Time Signed: 06/15/24 17:17 [id number] Evaluation + Plan noteExtracted from: Title:HOPD visit Author:Petr PAINTING MD Date: 06/15/24 Impression and Plan Assessment and Plan: Diagnosis: BPH with obstruction/lower urinary tract symptoms (MQY28-CJ N40.1, Billing Diagnosis, Medical), Chronic radiation cystitis (ICD10- CM N30.40, Billing Diagnosis, Medical), Other obstructive and reflux uropathy (KMW37-KW N13.8, Discharge, Medical), Overactive bladder ([id number] N32.81, Billing Diagnosis, Medical), Personal history of prostate cancer ([id number] Z85.46, Billing Diagnosis, Medical). Additional Plan of [...] Scheduled Provider:BARB Salinas APRN, Anabel Anthony Location:[facility] Appointment Type:URO Office Visit [facility] 10-03-2024 Hospital Discharge instructions Patient Education [...] your antibiotics and have a great day! [facility] 10-03-2024 NotePatient Education Cystoscopy ? Voiding [...] if you have a fever over 100 degrees.[facility] 05[facility] NoteUrology Office/Clinic Note [facility] and hx prostate cancer. HPI Staff 83 year old male new patient referred for incontinence, hx of prostate cancer. Dr. Anderson is PCP per 09/14/23 [place] note. Was seeing urologist in [place] but hasn't sen them for 2 years. [...] with voice recognition artificial intelligence software, specifically [employer], [employer] and or [employer]. Substitutions may have occurred due to the [...] [address] Galvez in [place]. No recent PSA or cancer monitoring. Patient [...] 6. Antiplatelet or antithrombotic long-term use (Z79.02: senior care (current) use of antithrombotics/antiplatelets) On Plavix Follow-up With When Contact Information CINTHYA SANCHEZ, Petr Richard, URL [address] [address]- Additional Instructions: schedule cysto Patient Education Prostate Cancer Benign Prostatic Hyperplasia Problem List/Past Medical History Ongoing Acute kidney injury Anemia Anxiety Arthritis Atrial fibrillation Benign prostatic hyperplasia with outflow obstruction Cerebrovascular accident Chronic kidney disease Chronic obstructive pulmonary disease Chronic systolic heart failure Congestive heart failure Deafness Dementia Diabetes Essen (more content not included)...[facility] Result Comment: Electronically Signed By: BARB Salinas APRN, Anabel Anthony\.br\Date and Time Signed: 05/01/24 08:58 [id number] NotePatient Education Oncology Prostate Cancer The prostate [...] under a microscope. This is called the Fulton score and the total score can range from 6?10, indicating how likely it is that the cancer will spread (metastasize) to other parts of the body. The higher the score, the greater thelikelihood that the cancer will spread. ? Fulton 6 or lower: This indicates that the cancer cells look similar to normal prostate cells (well differentiated). ? Fulton 7: This indicates that the cancer cells [...] implanted intothe prostate gla (more content not included)...[facility] Evaluation + Plan note Diagnostic Tests Pending * PSA Total 04/25/24 [facility] 08-12-2024 History of Present illness Narrative* Rosemary [...] features (Multi) 10/25/2023 Sacroiliitis, not elsewhere classified ([facility]) 10/25/2023 Idiopathic chronic pancreatitis (Multi) 10/25/2023 [...] bypass graft 08/30/2023 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 08/30/2023 Obstructive sleep apnea syndrome 08/30/2023 Permanent atrial fibrillation (Multi) 08/30/2023 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rosuvastatin (Crestor) 5 mg tablet 6. Hx of coronary artery bypass graft 7. 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 Follow Up In Cardiology 8. senior care 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 9. Other specified diabetes mellitus with other specified complication, 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 (Multi) 10. Obstructive sleep apnea [...] Entresto to 49/51 at bedtime, continue the 24/20 6 in the morning Obtain basic metabolic [...] Scribe Attestation By signing my name below, ICarrie LPN , Jennifer attest that this documentation [...] exam, discussion and plan. documented in this [facility] Work Phone: 1(861) 117-225208-12-2024 Instructions* Patient Instructions* Carrie Garcia LPN - [...] through Care Everywhere. * Heart Healthy Diet (Hungarian) documented in this [facility] Work Phone: 1(903) 958-656404-10-2024 History of Present illness Narrative* Saira Heart, MARISEL-ARMY OFFICER - 12/22/2023 2:00 PM EDT Chief Complaint [...] contact the office if new symptoms arise. ATTORNEY AT LAW in one month Saira Heart MSN, EQUIPMENT ENGINEER-ARMY OFFICER, PMHNP-[employer] Please excuse any errors in grammar or translation related to this dictation. Voice recognition software was utilized to prepare this document. [facility]: [phone]) 214-273004-10-2024 Instructions* Patient Instructions* CHARLI Hollingsworth - 12/22/2023 [...] contact the office if new symptoms arise. ATTORNEY AT LAW in one month [facility]: 1(188) 677-764503-25-2024 History of Present illness Narrative* CHARLI Hollingsworth [...] the office today his standing blood pressure app241/64. He did not take his Lasix this [...] the back exam room to the front sheet writer there was no dyspnea noted with conversation. [...] failure, systolic, possibly systolic and diastolic, functional yzhox1c with improvement in TONG with initiation of [...] contact the office if new symptoms arise. ATTORNEY AT LAW in 2 weeks Saira Heart MSN, EQUIPMENT ENGINEER-ARMY OFFICER, PMHNP-[employer] Please excuse any errors in grammar or translation related to this dictation. Voice recognition software was utilized to prepare this document. [facility] Work Phone: 1(164) 181-760303-25-2024 Instructions* Patient Instructions* CHARLI Hollingsworth - 12/06/2023 [...] contact the office if new symptoms arise. ATTORNEY AT LAW in 2 weeks documented in this [facility] Work Phone: [phone]) 861-792902-12-2024 History of Present illness Narrative* Rosemary Cartagena [...] revised to Medtronic Evera XT ICD May 2019,with a new 6935 RV [...] 180 ms when paced. Will start Entresto 24 0.5 tablets daily. Will need close follow-up, [...] my direction and personally dictated by me. Ihclair reviewed the chart and agree that the record accurately reflects my personal performance of the history, physical exam, discussion and plan. Scribe Attestation By signing my name below, I, Jennifer Bearden LPN attest that this documentation has been prepared under the direction and in the presence of Rosemary Cratagena MD. [facility] Work Phone: [phone]) 530-687402-12-2024 Instructions* Patient Instructions* Monisha Roberts LPN - [...] follow up per routine [facility] Work Phone: [phone]) 495-723001-04-2024 Evaluation note* Encounter Date Diagnosis Assessment Notes Treatment Notes Treatment Clinical Notes Sep, Diarrhea (ICD-10 - R19.7) [employer] Other 2023 History of Present illness Narrative* Rosemary Cartagena MD - 08/30/2023 10:30 AM EST Referring provider: Justin MARIN. History Of Present Illness: Yoana Ibrahim is a 82 y.o. male presenting with long history of cardiac problems, and is here to establish cardiology visit. Previously was going to [place], patient and want to switch care over to [facility]. Has history of atrial fibrillation [...] type, unspecified whether angina present, unspecified whether teller or transplanted heart 7. senior care 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 8. Shortness of breath 9. History of stroke 10. Benign prostatic hyperplasia with lower urinary tract symptoms, symptom details unspecified 11. Ischemic cardiomyopathy 12. Fatigue, unspecified type 13. Other specified diabetes mellitus with other specified complication, 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 ([facility]) Patient has chronic left heart failure, systolic, [...] further questions arise, Sincerely, Rosemary Cartagena MD [facility] Provider Attestation - Scribe documentation All medical [...] of Rosemary Cartagena MD. [facility] Work Phone: 1([phone]) 412-739712-18-2023 Instructions* Patient Instructions* Monisha Roberts LPN - [...] done in office today [facility] Work Phone: [phone]) [phone] Evaluation note* Encounter Date Diagnosis Assessment Notes Treatment Notes Treatment Clinical Notes Jul, Diarrhea (ICD-10 - R19.7) [employer] Other 07-20-2023 Evaluation note* Encounter Date Diagnosis Assessment Notes Treatment Notes Treatment Clinical Notes Mar, Exocrine pancreatic insufficiency (ICD-10 - K86.81) Patient will continue Creon as directed without change Mar, Diarrhea (ICD-10 - R19.7) Patient reports that he still has fecal accidents about 1 every 2 weeks Patient will continue Imodium as direct without change [employer] Other 12-15-2022 Evaluation note* Encounter Date Diagnosis Assessment Notes Treatment Notes Treatment Clinical Notes Aug, Diarrhea (ICD-10 - R19.7) [employer] Other 12-13-2022 Evaluation note* Encounter Date Diagnosis Assessment Notes Treatment Notes Treatment Clinical Notes Aug, Diarrhea (ICD-10 - R19.7) [employer] Other 06-29-2022 Evaluation note* Encounter Date Diagnosis Assessment Notes Treatment Notes Treatment Clinical Notes Feb, 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 PATIENT ADVISED WE WILL INCREASE MEDICATION AT THIS TIME. [employer] Other 04-04-2022 Evaluation note* Encounter Date Diagnosis Assessment Notes Treatment Notes Treatment Clinical Notes Dec, Diarrhea (ICD-10 - R19.7) Dec, Fecal incontinence (ICD-10 - R15.9) [employer] Other 12-21-2021 Evaluation note* Encounter Date Diagnosis [...] stenosis with neurogenic claudication (ICD-10 - M48.062) [employer] Other 12-13-2021 Evaluation note* Encounter Date Diagnosis [...] his Eliquis for 1 to 2 days. 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 All the questions were answered. [employer] Other 10-05-2021 Evaluation note* Encounter Date Diagnosis Assessment Notes Treatment Notes Treatment Clinical Notes Jun, Lumbar degenerative disc disease (ICD-10 - M51.36) [employer] Other 10-04-2021 Evaluation note* Encounter Date Diagnosis [...] - M47.817) Stable, proceed with treatment plan. [employer] Other [id number] Evaluation note* Encounter Date Diagnosis Assessment Notes Treatment Notes Treatment Clinical Notes Jun, Lower extremity pain (ICD-10 - M79.606) [employer] Other Evaluation + Plan note Future Appointments Appointment Date:04/25/2024 01:30:00 PM Scheduled Provider:BARB Salinas APRN, Anabel Anthony Location:[facility] Appointment Type:URO New Patient [facility] Evaluation + Plan note Future Appointments Appointment Date:10/03/2024 03:30:00 PM Scheduled Provider:Petr PAINTING MD Location:[facility] Appointment Type:URO Office Visit Diagnostic Tests Pending * PSA Total 07/25/24 [facility] evaluation + Plan note Future Appointments Appointment Date:11/22/2024 03:00:00 PM Scheduled Provider:Petr PAINTING MD Location:[facility] Appointment Type:URO Office Visit [facility] evaluation noteNo InformationNort Cardiac Dimensions Other evalubzopt noteNo assessment information available [facility] Work Phone: evaluxzqhs note* Diagnosis Permanent atrial fibrillation (CMS/HCC)- Primary Atrial fibrillation ICD (implantable cardioverter-defibrillator) in place Sleep apnea, unspecified type Abnormal EKG Nonspecific abnormal electrocardiogram (ECG) (EKG) Hx of coronary artery bypass graft Postsurgical aortocoronary bypass status Coronary artery disease, unspecified vessel or lesion type, unspecified whether angina present, unspecified whether teller or transplanted heart senior care 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 Shortness of breath History of stroke Transient ischemic attack (TIA), and cerebral infarction without residual deficits Benign prostatic hyperplasia with lower urinary tract symptoms, symptom details unspecified Ischemic cardiomyopathy Other specified forms of chronic ischemic heart disease Fatigue, unspecified type Other specified diabetes mellitus with other specified complication, 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 ([facility]) documented in [facility] Work Phone: Evaluation note* Diagnosis Abnormal EKG Nonspecific abnormal electrocardiogram (ECG) (EKG) Sleep apnea, unspecified type Permanent atrial fibrillation ([facility]) Atrial fibrillation Shortness of breath documented in this encounter [facility] Work Phone: Evaluation note* Diagnosis Bipolar disorder, current episode manic severe with psychotic features ([facility])- Primary Permanent atrial fibrillation ([facility]) Atrial fibrillation Ischemic cardiomyopathy Other specified forms of chronic ischemic heart disease ICD (implantable cardioverter-defibrillator) in place Hx of coronary artery bypass graft Postsurgical aortocoronary bypass status 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 History of stroke Transient ischemic attack (TIA), and cerebral infarction without residual deficits Other specified diabetes mellitus with other specified complication, unspecified whether [place] [facility] insulin use ([facility]) 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 Unspecified essential hypertension senior care 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 Obstructive sleep apnea syndrome Obstructive sleep apnea (adult) (pediatric) Medication course changed Sacroiliitis, not elsewhere classified ([facility]) Sacroiliitis, not elsewhere classified Idiopathic chronic pancreatitis ([facility]) Dementia in other diseases classified elsewhere, unspecified severity, without behavioral disturbance, psychotic disturbance, mood disturbance, and anxiety ([facility]) Major depressive disorder, recurrent, moderate ([facility]) Major depressive disorder, recurrent episode, moderate Acute embolism and thrombosis of right peroneal vein ([facility]) Prostate CA ([facility]) Malignant neoplasm of prostate Chronic systolic heart failure ([facility]) Chronic systolic heart failure documented in this encounter [facility] Work Phone: Evaluation note* Diagnosis BMI 29.0-29.9,adult- Primary Ischemic cardiomyopathy Other specified forms of chronic ischemic heart disease 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 Unspecified essential hypertension documented in this encounter [facility] Work Phone: Evaluation note* Diagnosis BMI 31.0-31.9,adult- Primary Ischemic cardiomyopathy Other specified forms of chronic ischemic heart disease documented in this encounter [facility] Work Phone: Evaluation note* Diagnosis Onset Date Resolution Status Exocrine pancreatic insufficiency [facility] Work Phone: Evaluation note* Diagnosis Hyperreflexia- [...] not intractable Cerebrovascular accident (CVA), unspecified mechanism (CMS/HCC) Vertigo Dizziness and giddiness documented in this [...] history of fall documented in this encounter [facility] Work Phone: Evaluation note* Diagnosis Permanent atrial fibrillation (Multi) Atrial fibrillation Ischemic cardiomyopathy Other specified forms of chronic ischemic heart disease Congestive heart failure, NYHA class 3, chronic, systolic (Multi) 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 Hx of coronary artery bypass graft Postsurgical aortocoronary bypass status 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 Unspecified essential hypertension 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 Other specified diabetes mellitus with other specified complication, unspecified whether [place] [facility] insulin use (Multi) Obstructive sleep apnea syndrome Obstructive sleep apnea (adult) (pediatric) History of stroke Transient ischemic attack (TIA), and cerebral infarction without residual deficits Stage 3b chronic kidney disease (Multi) BMI 29.0-29.9,adult Former smoker Personal history of tobacco use, presenting hazards to health Nonrheumatic mitral valve regurgitation Nonrheumatic aortic valve insufficiency documented in this encounter [facility] Work Phone: Evaluation note* Diagnosis Periodic limb movement disorder- Primary Gait difficulty Abnormality of gait Balance problem Abnormality of gait Radiculopathy, lumbosacral region Thoracic or lumbosacral neuritis or radiculitis, unspecified Memory loss documented in this encounter [facility] HealthcareEvaluation note* Diagnosis senior care 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- Primary Congestive [...] ischemic heart disease 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 Unspecified essential hypertension Former smoker Personal history of tobacco use, presenting hazards to health documented in this encounter [facility] Work Phone: Evaluation note* Diagnosis Persistent atrial fibrillation (Multi)- Primary Atrial fibrillation ICD (implantable cardioverter-defibrillator) in place senior care 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 Parkinson's disease, unspecified whether dyskinesia present, unspecified whether manifestations fluctuate Falls frequently Personal history of fall documented in this encounter [facility] Work Phone: Evaluation note* Diagnosis Atrial fibrillation, unspecified type (Multi) documented in this encounter [facility] Work Phone: Evaluation note* Diagnosis Atrial [...] appendage closure device documented in this encounter [facility] Work Phone: Evaluation note* Diagnosis Falls [...] mellitus with other specified complication, 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 (Multi) ICD (implantable cardioverter-defibrillator) in place Parkinson's disease, unspecified whether dyskinesia present, unspecified whether manifestations fluctuate Obstructive sleep apnea syndrome Obstructive sleep apnea (adult) (pediatric) 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 documented in this encounter [facility] Work Phone: Evaluation note* Diagnosis Vertigo Dizziness and giddiness Anxiety Anxiety state, unspecified Gait difficulty Abnormality of gait documented in this encounter [facility] HealthcareEvaluation note* Diagnosis Periodic limb movement disorder- Primary Parkinson's disease without dyskinesia or fluctuating manifestations (CMS/HCC) Cerebrovascular accident (CVA), unspecified mechanism (CMS/HCC) Chronic bilateral low back pain with bilateral sciatica Memory loss HERBIE (obstructive sleep apnea) Obstructive sleep apnea (adult) (pediatric) documented in this encounter [facility] HealthcareEvaluation note* Diagnosis Parkinson's disease without dyskinesia or fluctuating manifestations (CMS/HCC)- Primary Dysphagia, unspecified type Cerebrovascular accident (CVA), unspecified mechanism (CMS/HCC) HERBIE (obstructive sleep apnea) Obstructive sleep apnea (adult) (pediatric) Radiculopathy, lumbosacral region Thoracic or lumbosacral neuritis or radiculitis, unspecified Memory loss Periodic limb movement disorder documented in this encounter [facility] HealthcareEvaluation note* Diagnosis Onset Date Resolution Status Admit Date Exocrine pancreatic insufficiency ac [place] March 21, 2025 11:23am GERD (gastroesophageal reflu x disease) acute March 21, 2025 1 1:23am [facility] Work Phone: History general Narrative - Reported* Type Description Date Medical History degenerative disc disease Medical History stenosis Medical History bladder cancer Medical History stroke Medical History DM 2 Surgical History APPENDECTOMY Surgical History CHOLECYSTECTOMY Surgical History bilateral knee replacements Surgical History cardiac pacemaker Surgical History bladder stimulator Surgical History open heart surgery Hospitalization History see above [employer] Other History general Narrative - Reported* Type [...] cataract-lens implants RACHELLE. Hospitalization History see above [employer] Other Hospital course Narrative No data available for this section [facility] Discharge instructions No data available for this section [facility] Progress note No data available for this section [facility] Reason for referral (narrative)* Consultation (Routine) - Authorized Specialty Diagnoses / Procedures Referred By Godwin romo Referred To Contact Cardiology Diagnoses Permanent atrial fibrillation (CMS/HCC) Ischemic cardiomyopathy ICD (implantable cardioverter-defibrillator) in place 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 Procedures Follow Up In Cardiology Rosemary Cartagena MD [address] [facility] [address] [place] [address] Saira Heart, EQUIPMENT ENGINEER-ARMY OFFICER [address] [facility] [address] [facility] [address] [place] [address] Referral ID Status Reason Start Date Expiration Date V isits Requested Visits Authorized [id number] Authorized 10/25/2023 10/24/2024 1 1 * Consultation (Routine) - Authorized Specialty Diagnoses / Procedures Referred By Godwin romo Referred To Contact Sleep Medicine Diagnoses Obstructive sleep apnea syndrome Rosemary Cartagena MD [address] [facility] [address] [place] [address] Referral ID Status Reason Start Date Expiration Date Visits Requested Visits Authorized [id number] Authorized Specialty Services Required 10/25/2023 10/24/2024 1 1 * Consultation (Routine) - Authorized Specialty Diagnoses / Procedures Referred By Contac t Referred To Contact Cardiology Diagnoses Permanent atrial fibrillation (CMS/HCC) Ischemic cardiomyopathy ICD (implantable cardioverter-defibrillator) in place 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 Procedures Follow Up In Cardiology Rosemary Cartagena MD [address] [facility] [address] [place] [address] Rosemary Cartagena MD [address] [facility] [address] [place] [address] Referral ID Status Reason Start Date Expiration Date V isits Requested Visits Authorized [id number] Authorized 10/25/2023 10/24/2024 1 1 [facility] Work Phone: Rehezr for referral (narrative)* Consultation (Routine) - Authorized Specialty Diagnoses / Procedures Referred By Contac t Referred To Contact Cardiology Diagnoses Ischemic cardiomyopathy Procedures Follow Up In Cardiology Saira Heart APRN-ARMY OFFICER [address] [address], [address] [address] Referral ID Status Reason Start Date Expiration Date V isits Requested Visits Authorized [id number] Authorized 12/06/2023 12/05/2024 1 1 [facility] [facility] Work Phone: reason for referral (narrative)* Consultation (Routine) - Authorized Specialty Diagnoses / Procedures Referred By Contac t Referred To Contact Cardiology Diagnoses Ischemic cardiomyopathy Procedures Follow Up In Cardiology Saira Heart APRN-ALEKSANDR 703 [facility] 2, [address] [address] Referral ID Status Reason Start Date Expiration Date V isits Requested Visits Authorized [id number] Authorized 12/22/2023 12/21/2024 1 1 [facility] Work Phone: Reason for referral (narrative)* Consultation (Routine) - Authorized Specialty Diagnoses / Procedures Referred By Contac t Referred To Contact Cardiology Diagnoses Congestive heart failure, NYHA class 3, chronic, systolic (Multi) Procedures Follow Up In Cardiology Rosemary Cratagena MD [address] [address] Rosemary Cartagena MD [address] [address] Referral ID Status Reason Start Date Expiration Date V isits Requested Visits Authorized [id number] Authorized 04/24/2024 04/24/2025 1 1 [facility] Work Phone: Reason for referral (narrative)No reason for referral information [facility] Work Phone: Reason for visit Narrative* Consultation (Routine) - Authorized Specialty Diagnoses / Procedures Referred By Contac t Referred To Contact Cardiology Diagnoses ICD (implantable cardioverter-defibrillator) in place 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 Parkinson's disease, unspecified whether dyskinesia present, unspecified whether manifestations fluctuate Falls frequently Rosemary Cartagena MD [address] [address] Phone: tel: fax: Fabiano Pickering MD [address] [address] Phone: tel: fax: Referral ID Status Reason Start Date Expiration Date Visits Requested Visits Authorized [id number] Authorized Specialty Services Required 4 07/27/2025 1 1 [facility] Work Phone: Releej for visit Narrative* Auth/Cert Specialty Diagnoses / Procedures Referred By Contac t Referred To Contact Diagnoses Atrial fibrillation, unspecified type (Multi) Atrial fibrillation, unspecified type (Multi) [I48.91] Procedures [place] PERQ CLSR TCAT L ATR APNDGE W/ENDOCARDIAL IMPLNT [place] PERQ CLSR TCAT L ATR APNDGE W/ENDOCARDIAL IMPLNT LAAO (Left Atrial Appendage O[place]clusion) [place] [address] [place] [address] Phone: tel: fax: [facility] [address] [place] [phone] Phone: tel: fax: Referral ID Status Reason Start Date Expiration Date Visits Re quested Visits Authorized [id number] 1 1 [facility] Work Phone: Reason for visit Narrative* Auth/Cert Specialty Diagnoses / Procedures Referred By Godwin t Referred To Contact Diagnoses Atrial fibrillation, unspecified type (Multi) Atrial fibrillation, unspecified type (Multi) [I48.91] Procedures [place] PERQ CLSR TCAT L ATR APNDGE W/ENDOCARDIAL IMPLNT [place] PERQ CLSR TCAT L ATR APNDGE W/ENDOCARDIAL IMPLNT LAAO (Left Atrial Appendage [place]clusion) [place] [address] [place] [address] Phone: tel: fax: [facility] [address] [place], [place] [address]yehuda Norman [address] [address] Phone: tel: fax: Referral ID Status Reason Start Date Expiration Date Visits Re quested Visits Authorized [id number] 1 1 [facility] Work Phone: Summary Purpose Family History Relationship Condition Age at Onset Recorded Date/T [...] disease Unknown Malignant neoplasm Unknown Advance Directives Documents on File Type Date Recorded 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 Patients home medications were put in a patient belonging bag & patient stickers were placed on bag. The home medications were locked in the medication cabinet inpatients room * Pantera Alegre, RN - 06/12/2019 2:15 PM EDT Received [...] Lumbar degenerative disc disease (M51.36) Referral Organization [facility] Pain Managemen t Referring Provider First Name Ryder Referring Provider Last Name Ranjeet Referring Provider Specialty Pain Medici ne Referred Organization [facility] Ne urosurgery Referred Provider Maciej Maciel Dale Referred Address [address],[address] Referred Provider Specialty Neurological Surgery Referral Priority Routine General Notes Tarsha Nieto V 02:53:20 PM >Patient had CT scan of the lumbar spine in [place] earlier this year. He has a pacemaker/defibrillator and cannot have MRI Reason *FU 06/24 eval and treat Diagnosis 1 Lower extremity pain (M79.606) Referral Organization [facility] Pain Managemen t Referring Provider First Name Ryder Referring Provider Last Name Ranjeet Referring Provider Specialty Pain Medici ne Referred Organization [facility] Vascular Surge ry Referred Provider Abdon Jackman Referred Address [address] [facility],[address],[place], [place],[address] Referred Provider Specialty Vascular Laila haresh Referral Priority Routine General Notes Sadaf Hernandez 10:25:46 AM >p2p sent Reason Evaluate and Treat Diagnosis 1 Spondylolisthesis, l umbar region (M43.16) Referral Organization [facility] urosurgery Referring Provider First Name Osvaldo Referring Provider Last Name Raheem Referring Provider Specialty Neurologica l Surgery Referred Organization [facility] Referred Address [address], [place],[address] Referred Provider Specialty Physical The rapist Referral Priority Routine Specialty Diagnoses / Procedures Referred By Yingac t Referred To Contact Cardiology Diagnoses Abnormal EKG Sleep apnea, unspecified type Permanent atrial fibrillation (CMS/HCC) Shortness of breath Procedures Transthoracic Echo (TTE) Complete [place] ECHO TRANSTHORC R-T 2D W/WO M-MODE REC F-UP/LMTD [place] DOP ECHOCARD COLOR FLOW VELOCITY MAPPING [place] DOP ECHOCARD PULSE WAVE W/SPECTRAL F-UP/LMTD STD Rosemary Cartagena MD 254 [facility] [address] [place] [address] Referral ID Status Reason Start Date Expiration Date Visits Requested Visits Authorized [id number] Pending Review Perform Procedure 3 08/29/2024 1 1 Specialty Diagnoses / Procedures Referred By Godwin t Referred To Contact Cardiology Diagnoses ICD (implantable cardioverter-defibrillator) in place Ischemic cardiomyopathy Rosemary Cartagena MD [address] [place] [address] Referral ID Status Reason Start Date Expiration Date Visits Requested Visits Authorized [id number] Authorized Specialty Services Required 3 08/29/2024 1 1 Specialty Diagnoses / Procedures Referred By Contac t Referred To Contact Diagnoses ICD (implantable cardioverter-defibrillator) in place Permanent atrial fibrillation (CMS/HCC) Procedures ECG 12 Lead Rosemary Cartagena MD [address] [place] [address] Referral ID Status Reason Start Date Expiration Date V isits Requested Visits Authorized [id number] Pending Review 08/30/2023 08/29/2024 1 1 Specialty Diagnoses / Procedures Referred By Contac t Referred To Contact Cardiology Diagnoses Permanent atrial fibrillation (CMS/HCC) Ischemic cardiomyopathy Procedures Follow Up In Cardiology Rosemary Cartagena MD 254 [facility] [address] [place] [address] Rosemary Cartagena MD 254 [facility] [address] [place] [address] Referral ID Status Reason Start Date Expiration Date V isits Requested Visits Authorized [id number] Authorized 08/30/2023 08/29/2024 1 1 Specialty Diagnoses / Procedures Referred By Contac t Referred To Contact Physical Therapy Diagnoses Gait difficulty Balance problem Procedures [place] OFFICE/OUTPATIENT [facility] HIGH MDM 60 MINUTES Viky Rollins PA [address] [place] [address] Referral ID Status Reason Start Date Expiration Date Visits Requested Visits Authorized [id number] Authorized Specialty Services Required 06/14/2024 12/11/2024 10 10 Specialty Diagnoses / Procedures Referred By Contac t Referred To Contact Radiology Diagnoses Hyperreflexia Balance problem Procedures CT cervical spine wo IV contrast Viky Rollins PA [address] [place] [address] [facility] Scheduling [address] [place] [address] Referral ID Status Reason Start Date Expiration Date Visits Re quested Visits Authorized [id number] Closed 06/13/2024 12/10/2024 1 1 Specialty Diagnoses / Procedures Referred By Contac t Referred To Contact Radiology Diagnoses Gait difficulty Balance problem Procedures CT head wo IV contrast Viky Rollins PA [address] [place] [address] [facility] Scheduling [address] [place] [address] Referral ID Status Reason Start Date Expiration Date Visits Re quested Visits Authorized [id number] Closed 06/13/2024 12/10/2024 1 1 Chief Complaint and Reason for Visit Chief Complaint Admit Date 1 yr follow up March 21, 2025 11:23 am z95.810 i25.5 March 23, 2025 12:3 0pm Reason for Visit Admit Date Exocrine pancreatic insufficiency March 212024 11:23am GERD (gastroesophageal reflux disease) J kyaw 2024 11:23am Chief Complaint n64.89 Chief Complaint z95.810 i25.5; [...] z95.810 i25.5 December 20, 2024 11:1 0am Chief Complaint Admit Date 1 yr follow up March 21, 2025 11:23 am Additional Source Comments (unrecognized sect ion and content) No Status Records FoundNo Status Records FoundNo Status Records FoundNo Status Records FoundNo Status Records FoundNo Status Records FoundNo Status Records FoundNo Status Records FoundNo Status Records FoundNo Status Records Found INFORMATION SOURCE (unrecogn ized section and content) DATE CREATED AUTHOR 03/02/2018 [facility] DATE CREATED AUTHOR AUTHOR'S ORGANIZ ATION 06/26/2019 [facility] DATE CREATED AUTHOR AUTHOR'S ORGANIZ ATION 09/04/2022 [facility] DATE CREATED AUTHOR AUTHOR'S ORGANIZ ATION 06/01/2024 [facility] DATE CREATED AUTHOR AUTHOR'S ORGANIZ ATION 11/06/2024 [facility] DATE CREATED AUTHOR AUTHOR'S ORGANIZ ATION 02/07/2025 [facility] EPIC DATE CREATED AUTHOR AUTHOR'S ORGANIZ ATION 02/15/2025 [facility] DATE CREATED AUTHOR AUTHOR'S ORGANIZ ATION 03/16/2025 [facility] DATE CREATED AUTHOR AUTHOR'S ORGANIZ ATION 04/02/2025 [facility] DATE CREATED AUTHOR AUTHOR'S ORGANIZ ATION 04/02/2025 [facility] Reason for Visit (unrecogniz ed section and content) Status Reason Specialty Diagnoses / Procedures Referre d By Contact Referred To Contact Diagnoses S/P ICD (internal cardiac defibrillator) procedure labels 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 [place], [place] [facility] Reason Comments New Patient Visit Re-establish Specialty Diagnoses / Procedures Referred By Contac t Referred To Contact Diagnoses ICD (implantable cardioverter-defibrillator) in place Permanent atrial fibrillation (CMS/HCC) Procedures ECG 12 Lead Rosemary Cartagena MD 254 [facility] [address] [place] [address] Referral ID Status Reason Start Date Expiration Date V isits Requested Visits Authorized [id number] Pending Review 08/30/2023 08/29/2024 1 1 Specialty [...] F-UP/LMTD STD Rosemary Cartagena MD [address] [place] [address] Referral ID Status Reason Start Date Expiration Date Visits Requested Visits Authorized [id number] Pending Review Perform Procedure 08/29/2024 1 1 Reason Comments Follow-up 8 week Specialty Diagnoses / Procedures Referred By Contac t Referred To Contact Cardiology Diagnoses Permanent atrial fibrillation (CMS/HCC) Ischemic cardiomyopathy Procedures Follow Up In Cardiology Rosemary Cartagena MD 254 [facility] [address] [place] [address] Rosemary Cartagena MD 254 [facility] [address] [place] [address] Referral ID Status Reason Start Date Expiration Date V isits Requested Visits Authorized [id number] Authorized 08/30/2023 08/29/2024 1 1 Reason Comments Follow-up 6 week per GM Specialty Diagnoses / Procedures Referred By Contac t Referred To Contact Cardiology Diagnoses Permanent atrial fibrillation (CMS/HCC) Ischemic cardiomyopathy ICD (implantable cardioverter-defibrillator) in place 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 Procedures Follow Up In Cardiology Rosemary Cartagena MD 254 [facility] [address] [place] [address] Saira Heart EQUIPMENT ENGINEER-ARMY OFFICER 703 [facility] 2, [address] [address] Referral ID Status Reason Start Date Expiration Date V isits Requested Visits Authorized [id number] Authorized 10/25/2023 10/24/2024 1 1 Reason Comments Follow-up 2w Specialty Diagnoses / Procedures Referred By Contac t Referred To Contact Cardiology Diagnoses Ischemic cardiomyopathy Procedures Follow Up In Cardiology Saira Heart EQUIPMENT ENGINEER-ARMY OFFICER 703 [facility] 2, [address] [address] Referral ID Status Reason Start Date Expiration Date V isits Requested Visits Authorized [id number] Authorized 12/06/2023 12/05/2024 1 1 Reason Comments Back Pain Memory Loss Reason Comments Back Pain Parkinson's Disease Reason Comments Follow-up 3 month Specialty Diagnoses / Procedures Referred By Contac t Referred To Contact Cardiology Diagnoses Congestive heart failure, NYHA class 3, chronic, systolic Procedures Follow Up In Cardiology Rosemary Cartagena MD [address] [place] [address] Phone: tel: fax: Rosemary Cartagena MD [address] [place] [address] Phone: tel: fax: Referral ID Status Reason Start Date Expiration Date V isits Requested Visits Authorized [id number] Authorized 04/24/2024 04/24/2025 1 1 Reason Comments Follow-up 4m with sp Specialty Diagnoses / Procedures Referred By Contac t Referred To Contact Cardiology Diagnoses Permanent atrial fibrillation (Multi) Ischemic cardiomyopathy ICD (implantable cardioverter-defibrillator) in place 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 Procedures Follow Up In Cardiology Rosemary Cartagena MD [address] [place] [address] Rosemary Cartagena MD [address] [place] [address] Referral ID Status Reason Start Date Expiration Date V isits Requested Visits Authorized [id number] Authorized 10/25/2023 10/24/2024 1 1 Reason Comments Follow-up Symptoms Reason Comments Hospital Follow-up S/p watchman 02.07.2 5 Reason Comments Parkinson's Disease Care Teams (unrecognized sec tion and content) Personnel Name: SHANIQUE ANDERSON DO Address: [address] [place], [place] [address] Telecom: Team Status: Active Member Role Status Dates Shanique Anderson DO Primary Care Provider Active Team Status: Inactive Member Role Status Dates Shanique Anderson DO Primary Care Provider, Attending Hilary rockwell Active Package Maker Relationship Specialty Start Date End Date Shanique Anderson DO [address] [place] [address] [place] [address] PCP - General Family Medicine 08/30/23 Team Status: Inactive Member Role Status Dates Shanique Anderson DO Primary Care Provider Active Rosemary Cartagena MD Attending Provider Active Package Maker Relationship Specialty Start Date End Date Shanique Anderson, DO [address] [place] [address] PCP - General Family Medicine 08/30/23 Package Maker Relationship Specialty Start Date End Date Shanique Anderson, DO [address] [place] [address] PCP - General [facility] Medicine 08/30/23 Team Status: Inactive Member Role Status Dates Shanique Anderson DO Primary Care Provider Active Start: December 03, 2023 End: December 03, 2023 Rosemary Cartagena MD Attending Provider Active Star t: December 03, 2023 End: December 03, 2023 Package Maker Relationship Specialty Start Date End Date Shanique Anderson, DO [address] [place] [address] [facility] - [facility] 08/30/23 Package Maker Relationship Specialty Start Date End Date Shanique Anderson, DO [address] [place] [address] PCP - [facility] 08/30/23 Team Status: Inactive Member Role Status Dates Manassasaditya Anderson DO Primary Care Provider Active Start: [...] June 07, 2024 End: June 07, 2024 Package Maker Relationship Specialty Start Date End Date Unallocated, William Vaughan MD [address] [place] [address] PCP - General Family Medicine 12/06/23 Viky Rollins PA [address] [place] [address] Physician Events Specialist Neurology 12/06/23 Package Maker Relationship Specialty Start Date End Date Unallocated, William Vaughan MD [address] [place] [address] PCP - General Family Medicine 12/06/23 Viky Rollins PA [address] [place] [address] Physician Events Specialist Neurology 12/06/23 Team Status: Active Member Role Status Dates Shanique Anderson DO Primary Care Provider Active Start: June 07, 2024 Rosemary Cartagena MD Other Provider Active Start: S pedrokelley 2023 Tex Carranza MD Attending Provider Active Start: June 07, 2024 Team Status: Inactive Member Role Status Dates Shanique Anderson DO Primary Care Provider Active Start: June 29, 2024 End: June 29, 2024 Viky Rollins PA-C Attending Provider Active Sta rt: June 29, 2024 End: June 29, 2024 Package Maker Relationship Specialty Start Date End Date Unallocated, William Vaughan MD [address] [place] [address] PCP - General Family Medicine 12/06/23 Viky Rollins PA [address] [address] Physician Events Specialist Neurology 12/06/23 Package Maker Relationship Specialty Start Date End Date Unallocated, William Vaughan MD [facility] [place] [address] PCP - General Family Medicine 12/06/23 Viky Rollins PA [address] [address] Physician Events Specialist Neurology 12/06/23 Package Maker Relationship Specialty Start Date End Date Shanique Anderson DO [address] [place] [address] PCP - General Family Medicine 08/30/23 Package Maker Relationship Specialty Start Date End Date Shanique Anderson MD [address] [place] [address] PCP - General Family Medicine 08/24/24 Viky Rollins PA [address] [address] Physician Events Specialist Neurology 12/06/23 Package Maker Relationship Specialty Start Date End Date Shanique Anderson DO [address] [place] [address] PCP - General Family Medicine 08/30/23 Package Maker Relationship Specialty Start Date End Date Shanique Anderson MD [address] [place] [address] PCP - General Family Medicine 08/24/24 Viky Rollins PA [address] [facility] [address] [place] [address] Physician Events Specialist Neurology 12/06/23 Package Maker Relationship Specialty Start Date End Date Shanique Anderson DO [address] [place] [address] PCP - General Family Medicine 08/30/23 Package Maker Relationship Specialty Start Date End Date JustinNikkiaditya Stein Tereso, DO [address] [place] [address] PCP - General Family Medicine 08/30/23 Package Maker Relationship Specialty Start Date End Date JustinShanique Shraddhaaditya Weaver, DO [address] [place] [address] PCP - General Family Medicine 08/30/23 Package Maker Relationship Specialty Start Date End Date JustinShanique Shraddha Tereso, DO [address] [place] [address] PCP - General Family Medicine 08/30/23 Package Maker Relationship Specialty Start Date End Date Shanique Anderson, DO [address] [place] [address] PCP - General Family Medicine 08/30/23 Package Maker Relationship Specialty Start Date End Date Shanique Anderson DO [address] [place] [address] PCP - General Family Medicine 08/30/23 Susannah Palomares, fountain vending mechanicBracelet And Brooch Maker 10/23/24 Package Maker Relationship Specialty Start Date End Date Shanique Anderson MD [address] [place] [address] PCP - General Family Medicine 08/24/24 Viky Rollins PA [address] [place] [address] Physician Events Specialist Neurology 12/06/23 Karen Woo DO [address] [place] [address] Referring Physician Neurology 11/09/24 Package Maker Relationship Specialty Start Date End Date Shanique Anderson MD [address] [place] [address] PCP - General Family Medicine 08/24/24 Viky Rollins PA [address] [place] [address] Physician Events Specialist Neurology 12/06/23 Karen Woo DO [address] [place] [address] Referring Physician Neurology 11/09/24 Package Maker Relationship Specialty Start Date End Date Shanique Anderson MD [address] [place] [address] PCP - General Family Medicine 08/24/24 Viky Rollins PA [address] [address] Physician Events Specialist Neurology 12/06/23 Karen Woo DO [address] [place] [address] Referring Physician Neurology 11/09/24 Team Status: Inactive Member Role Status Dates Shanique Anderson DO Primary Care Provider Active Start: December 20, 2024 End: December 20, 2024 Tex Carranza MD Attending Provider Active Start: December 20, 2024 End: December 20, 2024 Package Maker Relationship Specialty Start Date End Date Shanique Anderson MD [address] [place] [address] PCP - General Family Medicine 08/24/24 Viky Rollins PA [address] [address] Physician Events Specialist Neurology 12/06/23 Karen Woo DO [address] [address] Referring Physician Neurology 11/09/24 Team Status: Inactive Member Role Status Dates Shanique Anderson DO Primary Care Provider Active Start: March 21, 2025 End: March 21, 2025 Alexei Van MD Attending Provider Active S tart: March 21, 2025 End: March 21, 2025 Team Status: Active Member Role Status Dates Shanique Anderson DO Primary Care Provider Active Start: March 23, 2025 Rosemary Cartagena MD Other Provider Active Start: Octavia card 2024 Tex Carranza MD Attending Provider Active Start: March 23, 2025 Goals (unrecognized section and content) Goals may [...] - Reason: Patient/family refused)1500 (Due)2100 (Due) pancrelipase (Zfj-Kyxo-Yjam) (Creon) 36,000-114,000- 180,000 unit per capsule 3 [...] Nightly, First dose on Wed10/20/24 at 2100 2257 (Given - Provider: Dominique Forrest RN) 2100 (Due) PRN Medication Order 10/19/2024 10/20/2024 10/21/2024 [...] BE BASED ON THE PRIMARY CLINICAL RECORDS. [facility]. provides no warranty or guarantee of the accuracy or completeness of information in this document.
--- NOTE | 2025-05-06 17:12 | PC.NURSE ---
abrasion has a healing scab to top
--- NOTE | 2025-05-06 17:20 | ED.FALL1 ---
HPI HPI - Fall General Chief Complaint: Fall Stated Complaint: FALL Time Seen by Provider: 05/06/25 17:07 Source: patient Mode of arrival: walk-in History of Present Illness HPI Narrative: 84-year-old male with a history of Parkinson?s disease presents with his for evaluation after a fall that occurred 5 days ago. He reports stumbling due to unsteadiness which is baseline for him due to his parkinsons and landing on his left side, striking his left knee, wrist, and ribs. Since the fall, he has had persistent pain at those sites, particularly over the left ribs, which is worsened by deep inspiration. He has not taken any pain medication. He denies chest pain apart from the rib discomfort, denies abdominal pain, head injury, loss of consciousness, or any new neurological changes. MD complaint: Reports fall Related Data Home Medications ?Medication ?Instructions ?Recorded ?Confirmed aspirin 81 mg capsule 81 mg PO DAILY 02/14/25 02/14/25 buspirone 5 mg tablet 5 mg PO BID 02/14/25 02/14/25 carbidopa 10 mg-levodopa 100 mg 1 tab PO TID 02/14/25 02/14/25 tablet cholecalciferol (vitamin D3) 25 75 mcg PO DAILY 02/14/25 02/14/25 mcg (1,000 unit) capsule clopidogrel 75 mg tablet 75 mg PO DAILY 02/14/25 02/14/25 diazepam 2 mg tablet 2 mg PO HS 02/14/25 02/14/25 digoxin 125 mcg (0.125 mg) tablet 125 mcg PO DAILY 02/14/25 02/14/25 famotidine 20 mg tablet 20 mg PO HS 02/14/25 02/14/25 ferrous sulfate 325 mg (65 mg 325 mg PO DAILY 02/14/25 02/14/25 iron) tablet fexofenadine 180 mg tablet 180 mg PO DAILY 02/14/25 02/14/25 furosemide 20 mg tablet 20 mg PO DAILY 02/14/25 02/14/25 insulin glargine 100 unit/mL (3 14 unit subcut DAILY 02/14/25 02/14/25 mL) subcutaneous pen amajol-pcdlmuoa-dciljpo 3 cap PO TID 02/14/25 02/14/25 36,000-114,000-180,000 unit capsule,delay rel (Creon) loperamide 2 mg capsule 2 mg PO DAILY 02/14/25 02/14/25 magnesium oxide 420 mg tablet 420 mg PO DAILY 02/14/25 02/14/25 memantine 28 mg capsule 28 mg PO DAILY 02/14/25 02/14/25 sprinkle,extended release 24hr mirabegron 50 mg tablet,extended 50 mg PO Q24H 02/14/25 02/14/25 release 24 hr multivitamin (Daily Multi-Vitamin 1 tab PO DAILY 02/14/25 02/14/25 tablet) nitroglycerin 0.4 mg sublingual 0.4 mg sublingual Q5M PRN chest 02/14/25 02/14/25 tablet pain paroxetine HCl 20 mg tablet 20 mg PO DAILY 02/14/25 02/14/25 potassium chloride 10 mEq 10 meq PO DAILY 02/14/25 02/14/25 tablet,extended release rivastigmine 13.3 mg/24 hour 1 patch transdermal DAILY 02/14/25 02/14/25 transdermal patch rosuvastatin 5 mg tablet 5 mg PO DAILY 02/14/25 02/14/25 sacubitril 24 mg-valsartan 26 mg 1 tab PO BID 02/14/25 02/14/25 tablet (Entresto) tamsulosin 0.4 mg capsule (Flomax) 0.4 mg PO DAILY 02/14/25 02/14/25 trazodone 50 mg tablet 25 mg PO HS 02/14/25 02/14/25 Previous Rx's ?Medication ?Instructions ?Recorded hydrocodone 5 mg-acetaminophen 325 1 tab PO Q6H PRN pain #14 tabs 05/06/25 mg tablet lidocaine 5 % topical patch 1 patch topical DAILY #15 ea 05/06/25 (Lidoderm) Allergies Allergy/AdvReac Type Severity Reaction Status Date / Time meperidine (From Demerol) Allergy Hallucinati Verified 02/14/25 13:37 ng PFSH PFSH Social History Little interest or pleasure in doing things: not at all Feeling down, depressed, or hopeless: not at all Exam Narrative Exam Narrative: General: Elderly male, alert, in mild discomfort but no acute distress. HEENT: Normocephalic, atraumatic. No scalp tenderness, lacerations, or hematomas. Pupils equal, round, reactive. Neck: Supple, full ROM, no midline cervical spine tenderness. Cardiac: Regular rate and rhythm, no murmurs, rubs, or gallops. Respiratory: Lungs clear bilaterally. No wheezes, rales, or rhonchi. Pain with deep inspiration. Tenderness over left lateral ribs, no crepitus or deformity. Abdomen: Soft, nondistended, nontender. No rebound or guarding. Musculoskeletal: Left knee: mild tenderness, no obvious deformity, full ROM though limited by pain. Left wrist: tenderness, no gross deformity, full ROM though painful. No other extremity tenderness or deformity. Skin: No lacerations, ecchymosis noted over left ribs and knee. Neuro: Alert and oriented ?3. Speech clear. Motor and sensory grossly intact. Baseline Parkinsonian gait. No new focal deficits. Constitutional Vital Signs, click to edit/add: Last Vital Signs Temp 97.8 F 05/06/25 16:59 Pulse 60 05/06/25 18:30 Resp 16 05/06/25 18:30 BP 129/69 05/06/25 18:30 Pulse Ox 95 05/06/25 18:30 O2 Del Method Room Air 05/06/25 16:59 Course Reevaluation(s) Reevaluation #1: Pain medications helping some. Waiting for rad readings Time: 18:57 Vital Signs Vital signs: Vital Signs Temperature 97.8 F 05/06/25 16:59 Pulse Rate 67 05/06/25 16:59 Respiratory Rate 20 05/06/25 16:59 Blood Pressure 153/72 H 05/06/25 16:59 Pulse Oximetry 97 05/06/25 16:59 Oxygen Delivery Method Room Air 05/06/25 16:59 Temperature 97.8 F 05/06/25 16:59 Pulse Rate 60 05/06/25 18:30 Respiratory Rate 16 05/06/25 18:30 Blood Pressure 129/69 05/06/25 18:30 Pulse Oximetry 95 05/06/25 18:30 Oxygen Delivery Method Room Air 05/06/25 16:59 MDM - Fall MDM Narrative Medical decision making narrative: 84-year-old male with history of Parkinson?s disease presents 5 days after a fall with persistent left-sided rib, wrist, and knee pain. Imaging obtained: CT chest demonstrates an isolated fracture of the left sixth rib without additional acute intrathoracic process. Wrist radiographs show no fracture. Knee was non tender but has an abrasion. ambulating normally.. Pain management strategies were discussed, and the importance of deep breathing and pulmonary hygiene was emphasized to reduce the risk of atelectasis or pneumonia. Differential included rib fracture vs. contusion, musculoskeletal strain, and less likely intrathoracic or intra-abdominal injury. Patient remains hemodynamically stable without respiratory distress. Plan for symptomatic management, incentive spirometry, and close outpatient follow-up. Blood sugar is also elevated, monitor and take insulin as discussed. Encourage adequate hydration. Pt. said they could address when they got home. Medical Records Attestation: I reviewed the patient's medical records. Lab Data Attestation: I reviewed the patient's lab results. Labs: Lab Results 05/06/25 Range/Units 18:10 WBC 6.5 (4.0-11.0) 10^3/uL RBC 2.97 L (4.70-6.10) 10^6/uL Hgb 10.0 L (14.0-18.0) g/dL Hct 29.7 L (42.0-54.0) % MCV 100.0 H (80.0-94.0) fL MCH 33.7 (25.9-34.0) pg MCHC 33.7 (29.9-35.2) g/dL RDW 12.5 (11.0-15.0) % Plt Count 139 L (150-450) 10^3/uL MPV 9.9 (9.5-13.5) fL Neut % (Auto) 75.8 H (43.0-75.0) % Lymph % (Auto) 11.4 L (20.5-60.0) % [place] % (Auto) 10.3 (1.7-12.0) % Eos % (Auto) 1.4 (0.9-7.0) % Baso % (Auto) 0.5 (0.2-2.0) % Neut # (Auto) 4.9 (1.4-6.5) 10^3/uL Lymph # (Auto) 0.7 L (1.2-3.8) 10^3/uL [place] # (Auto) 0.7 (0.3-0.8) 10^3/uL Eos # (Auto) 0.1 (0.0-0.7) 10^3/uL Baso # (Auto) 0.0 (0.0-0.1) 10^3/uL Abs Immat Gran (auto) 0.04 H (0.00-0.03) 10^3/uL Imm/Tot Granulo (auto) 0.6 H (0.0-0.5) % Sodium 140 (136-145) mmol/L Potassium 4.6 (3.5-5.1) mmol/L Chloride 106 (98-107) mmol/L Carbon Dioxide 28.0 (21.0-32.0) mmol/L Anion Gap 10.6 BUN 32.0 H (7.0-18.0) mg/dL Creatinine 1.57 H (0.70-1.30) mg/dL Est GFR ( Amer) 52 L (>=60 mL/min/1.73m^2) Est GFR (Non-Af Amer) 43 L (>=60 mL/min/1.73m^2) BUN/Creatinine Ratio 20.4 Glucose 337 H (74-106) mg/dL Calcium 8.0 L (8.5-10.1) mg/dL Imaging Data CT scan - chest: Attestation: I have reviewed the pertinent imaging results. Radiologist's impression: ITS Impressions Chest CT 05/06/25 17:31 IMPRESSION: There is a minimally displaced fracture of the left anterior sixth rib. No additional acute displaced fractures within the chest, abdomen, or pelvis. Remote appearing compression deformities are noted in the superior endplates at T3 and T4. Degenerative changes are noted throughout as above. There is cardiomegaly. There is a small right-sided pleural effusion with airspace opacities in the right lower lobe presumably representing atelectasis. No acute traumatic visceral injury within the chest, abdomen, or pelvis. Impression dictated by: Milan Dickerson M.D. 05/06/2025 7:07 PM Dictation Location: [place] [address] Electronically authenticated by: [id number] Y Date: 05/06/2025 19:07 Abdomen/Pelvis CT 05/06/25 17:32 IMPRESSION: There is a minimally displaced fracture of the left anterior sixth rib. No additional acute displaced fractures within the chest, abdomen, or pelvis. Remote appearing compression deformities are noted in the superior endplates at T3 and T4. Degenerative changes are noted throughout as above. There is cardiomegaly. There is a small right-sided pleural effusion with airspace opacities in the right lower lobe presumably representing atelectasis. No acute traumatic visceral injury within the chest, abdomen, or pelvis. Impression dictated by: Milan Dickerson M.D. 05/06/2025 7:07 PM Dictation Location: [place] Electronically authenticated by: [id number] Y Date: 05/06/2025 19:07 Wrist X-Ray 05/06/25 17:32 IMPRESSION: There is no acute displaced fracture. Degenerative changes are noted in the radiocarpal joint. Severe degenerative changes are noted in the base of the thumb. Impression dictated by: Milan Dickerson M.D. 05/06/2025 6:01 PM Dictation Location: [place] Electronically authenticated by: [id number] Y Date: 05/06/2025 18:01 Discharge Plan Discharge Chief Complaint: Fall Clinical Impression: Fracture of left sixth rib, Left wrist sprain, Contusion of knee, left, Fall Patient Disposition: Home, Self-Care Time of Disposition Decision: 19:42 Condition: Good Mode of Transportation: Private Vehicle Prescriptions / Home Meds: New hydrocodone-acetaminophen 5-325 mg tablet 1 tab PO Q6H PRN (Reason: pain) Qty: 14 0RF lidocaine [Lidoderm] 5 % adhesive patch,medicated 1 patch topical DAILY Qty: 15 0RF Rx Instructions: leave on most painful area for up to 12 hrs No Action buspirone 5 mg tablet 5 mg PO BID carbidopa-levodopa 10-100 mg tablet 1 tab PO TID clopidogrel 75 mg tablet 75 mg PO DAILY diazepam 2 mg tablet 2 mg PO HS digoxin 125 mcg (0.125 mg) tablet 125 mcg PO DAILY famotidine 20 mg tablet 20 mg PO HS fexofenadine 180 mg tablet 180 mg PO DAILY furosemide 20 mg tablet 20 mg PO DAILY Creon 36,000-114,000- 180,000 unit capsule,delayed release(DR/EC) 3 cap PO TID Patient Comments: 3 caps TID daily with meals and 2 caps BID with snacks loperamide 2 mg capsule 2 mg PO DAILY memantine 28 mg capsule,sprinkle,ER 24hr 28 mg PO DAILY mirabegron 50 mg tablet extended release 24 hr 50 mg PO Q24H nitroglycerin 0.4 mg tablet, sublingual 0.4 mg sublingual Q5M PRN (Reason: chest pain) paroxetine HCl 20 mg tablet 20 mg PO DAILY potassium chloride 10 mEq tablet extended release 10 meq PO DAILY rivastigmine 13.3 mg/24 hour patch 24 hour 1 patch transdermal DAILY rosuvastatin 5 mg tablet 5 mg PO DAILY Entresto 24-26 mg tablet 1 tab PO BID Rx Instructions: hold if BP less than 100 trazodone 50 mg tablet 25 mg PO HS aspirin 81 mg capsule 81 mg PO DAILY cholecalciferol (vitamin D3) 25 mcg (1,000 unit) capsule 75 mcg PO DAILY ferrous sulfate 325 mg (65 mg iron) tablet 325 mg PO DAILY multivitamin [Daily Multi-Vitamin] Tablet 1 tab PO DAILY insulin glargine 100 unit/mL (3 mL) insulin pen 14 unit subcut DAILY magnesium oxide 420 mg tablet 420 mg PO DAILY tamsulosin [Flomax] 0.4 mg capsule 0.4 mg PO DAILY Print Language: Upper Sorbian Instructions: How to Use an Incentive Spirometer (ED), Rib Fracture (ED), Fall Prevention (ED), Wrist Sprain (ED) Additional Instructions: You were seen today after a fall and were found to have a fracture of your left sixth rib. Your wrist did not show any fractures. Rib fractures are painful but usually heal on their own with time. The most important things you can do are to take your pain medication as directed and to take deep breaths several times each hour, even if it is uncomfortable. This helps keep your lungs healthy and prevents pneumonia. Using a pillow to support your chest when you cough or take deep breaths may help with pain. Apply ice to the sore areas for 15?20 minutes at a time as needed. Avoid heavy lifting or strenuous activity until cleared by your doctor. Return to the Emergency Department immediately if you develop worsening shortness of breath, severe or uncontrolled pain, fever, coughing up blood, or any new concerning symptoms. Please follow up with your primary care provider within the next week for reassessment. Referrals: SHANIQUE SCHWAB [Primary Care Provider, Family Practice] - 1 week
[2025-05-06] MEDS: HYDROCODONE/ACET 5-325 MG TABLET 1 TAB PO ×2 (17:31→19:52)
--- NOTE | 2025-05-06 17:31 | CT_ITS ---
The [address] [address] Patient Name: YOANA IBRAHIM MRN: [id number] date: 1940 Sex: M Assigned Patient Location: ER Current Patient Location: ER Accession/Order Number: [id number] Exam Date: 05/06/2025 18:40 Report Date: 05/06/2025 19:07 At the request of: DAVID OLSEN Procedure: CT abdomen pelvis w con CT chest w con, CT abdomen pelvis w con 05/06/2025 6:44 PM SIGN AND SYMPTOMS: Fall, left rib pain, left wrist deformity CONTRAST: 100 mL of intravenous Visipaque to 70 TECHNIQUE: Multidetector CT axial slices of the chest, abdomen and pelvis were obtainedwith IV contrast. Multiplanar reformats were performed and viewed on a separate workstation and reviewed to further define anatomy and possible pathology. CT was performed with one or more of the following dose reduction techniques: Automated exposure control, adjustment of the mA and/or kV according to patient size, or use of iterative reconstruction technique. COMPARISON: None. FINDINGS: Lower neck: Thyroid gland within normal limits, no supraclavicle adenopathy. Vessels: Atherosclerotic changes are present in the thoracic aorta, origins of the great vessels, and coronary arteries. There is no evidence of aneurysm dilatation, dissection, or occlusion. Mediastinum and Cindy: Within normal limits. Heart: There is cardiomegaly. There is left atrial appendage occlusion device. Airways: Within normal limits Lungs: Airspace opacities noted in the right lower lobe posteriorly. Pleura: Small bilateral pleural effusions are noted right greater than left. Chest Wall: There is a pacer device in the left anterior chest wall. Abdomen: Liver: within normal limits. Bile Ducts: Normal caliber. Gallbladder: Previously removed Pancreas: within normal limits. Spleen: within normal limits. Adrenals: within normal limits. Kidneys: within normal limits. Pelvis: Reproductive Organs: No pelvic masses. Ureters: within normal limits. Bladder: within normal limits. Bowel: There are uncomplicated colonic diverticula. Mesenteric Lymph Nodes: No enlarged mesenteric lymph nodes. Peritoneum: No ascites or free air, no fluid collection. Vessels: Atherosclerotic changes within normal limits. Retroperitoneum: within normal limits. Abdominal Wall: within normal limits. Bones: There is a minimally displaced fracture of the left anterior sixth rib. Remote appearing compression deformities are noted in the superior endplates at T3 and T4. Sternotomy wires overlie the mediastinum. Degenerative changes are present in the lumbar spine. A sacral stimulator is present. Degenerative changes are noted in the hips and sacroiliac joints. CT/CT chest w con IMPRESSION: There is a minimally displaced fracture of the left anterior sixth rib. No additional acute displaced fractures within the chest, abdomen, or pelvis. Remote appearing compression deformities are noted in the superior endplates at T3 and T4. Degenerative changes are noted throughout as above. There is cardiomegaly. There is a small right-sided pleural effusion with airspace opacities in the right lower lobe presumably representing atelectasis. No acute traumatic visceral injury within the chest, abdomen, or pelvis. Impression dictated by: Milan Dickerson M.D. 05/06/2025 7:07 PM Dictation Location: [place] [address] Electronically authenticated by: [id number] Y Date: 05/06/2025 19:07
--- NOTE | 2025-05-06 17:32 | XR_ITS ---
The [address] [address] Patient Name: YOANA IBRAHIM MRN: [id number] date: 1940 Sex: M Assigned Patient Location: ER Current Patient Location: ER Accession/Order Number: [id number] Exam Date: 05/06/2025 17:48 Report Date: 05/06/2025 18:01 At the request of: DAVID OLSEN Procedure: XR wrist LT min 3V XR wrist LT min 3V 05/06/2025 5:52 PM SIGNS AND SYMPTOMS: Fall, left wrist pain and swelling PROTOCOL: Frontal, lateral, and oblique radiographs of the left wrist COMPARISON: None FINDINGS: There is narrowing of the radiocarpal joint space. There is no fracture or dislocation. There is severe narrowing of the first carpal metacarpal junction. There is narrowing of the first metacarpophalangeal joint. Vascular calcifications are present. XR/XR wrist LT min 3V IMPRESSION: There is no acute displaced fracture. Degenerative changes are noted in the radiocarpal joint. Severe degenerative changes are noted in the base of the thumb. Impression dictated by: Milan Dickerson M.D. 05/06/2025 6:01 PM Dictation Location: [place] [address] Electronically authenticated by: [id number] Y Date: 05/06/2025 18:01
--- NOTE | 2025-05-06 17:32 | CT_ITS ---
The [address] [address] Patient Name: YOANA IBRAHIM MRN: [id number] date: 1940 Sex: M Assigned Patient Location: ER Current Patient Location: ER Accession/Order Number: [id number] Exam Date: 05/06/2025 18:40 Report Date: 05/06/2025 19:07 At the request of: DAVID OLSEN Procedure: CT abdomen pelvis w con CT chest w con, CT abdomen pelvis w con 05/06/2025 6:44 PM SIGN AND SYMPTOMS: Fall, left rib pain, left wrist deformity CONTRAST: 100 mL of intravenous Visipaque to 70 TECHNIQUE: Multidetector CT axial slices of the chest, abdomen and pelvis were obtainedwith IV contrast. Multiplanar reformats were performed and viewed on a separate workstation and reviewed to further define anatomy and possible pathology. CT was performed with one or more of the following dose reduction techniques: Automated exposure control, adjustment of the mA and/or kV according to patient size, or use of iterative reconstruction technique. COMPARISON: None. FINDINGS: Lower neck: Thyroid gland within normal limits, no supraclavicle adenopathy. Vessels: Atherosclerotic changes are present in the thoracic aorta, origins of the great vessels, and coronary arteries. There is no evidence of aneurysm dilatation, dissection, or occlusion. Mediastinum and Cindy: Within normal limits. Heart: There is cardiomegaly. There is left atrial appendage occlusion device. Airways: Within normal limits Lungs: Airspace opacities noted in the right lower lobe posteriorly. Pleura: Small bilateral pleural effusions are noted right greater than left. Chest Wall: There is a pacer device in the left anterior chest wall. Abdomen: Liver: within normal limits. Bile Ducts: Normal caliber. Gallbladder: Previously removed Pancreas: within normal limits. Spleen: within normal limits. Adrenals: within normal limits. Kidneys: within normal limits. Pelvis: Reproductive Organs: No pelvic masses. Ureters: within normal limits. Bladder: within normal limits. Bowel: There are uncomplicated colonic diverticula. Mesenteric Lymph Nodes: No enlarged mesenteric lymph nodes. Peritoneum: No ascites or free air, no fluid collection. Vessels: Atherosclerotic changes within normal limits. Retroperitoneum: within normal limits. Abdominal Wall: within normal limits. Bones: There is a minimally displaced fracture of the left anterior sixth rib. Remote appearing compression deformities are noted in the superior endplates at T3 and T4. Sternotomy wires overlie the mediastinum. Degenerative changes are present in the lumbar spine. A sacral stimulator is present. Degenerative changes are noted in the hips and sacroiliac joints. CT/CT abdomen pelvis w con IMPRESSION: There is a minimally displaced fracture of the left anterior sixth rib. No additional acute displaced fractures within the chest, abdomen, or pelvis. Remote appearing compression deformities are noted in the superior endplates at T3 and T4. Degenerative changes are noted throughout as above. There is cardiomegaly. There is a small right-sided pleural effusion with airspace opacities in the right lower lobe presumably representing atelectasis. No acute traumatic visceral injury within the chest, abdomen, or pelvis. Impression dictated by: Milan Dickerson M.D. 05/06/2025 7:07 PM Dictation Location: [place] [address] Electronically authenticated by: [id number] Y Date: 05/06/2025 19:07
[2025-05-06 18:22] LABS: Hematocrit 29.7 % (42.0-54.0); Hemoglobin 10.0 g/dL (14.0-18.0); Immature Granulocytes Abs Auto 0.04 10^3/uL (0.00-0.03); Immature Granulocytes Pct Auto 0.6 % (0.0-0.5); Lymphocytes Absolute Auto 0.7 10^3/uL (1.2-3.8); Mean Corpuscular HGB Conc 33.7 g/dL (29.9-35.2); Mean Corpuscular Hemoglobin 33.7 pg (25.9-34.0); Mean Corpuscular Volume 100.0 fL (80.0-94.0); Platelet Count 139 10^3/uL (150-450); Red Blood Count 2.97 10^6/uL (4.70-6.10); White Blood Count 6.5 10^3/uL (4.0-11.0)
[2025-05-06 18:30] VITALS: BP 129/69; PULSE 60; O2SAT 95
[2025-05-06 18:30] LABS: Anion Gap 10.6; Blood Urea Nitrogen 32.0 mg/dL (7.0-18.0); Calcium 8.0 mg/dL (8.5-10.1); Carbon Dioxide 28.0 mmol/L (21.0-32.0); Chloride 106 mmol/L (98-107); Estimated GFR (African America 52 (>=60 mL/min/1.73m^2); Estimated GFR (Non-African Ame 43 (>=60 mL/min/1.73m^2); Glucose 337 mg/dL (74-106); Potassium 4.6 mmol/L (3.5-5.1); Sodium 140 mmol/L (136-145)
[2025-05-06] MEDS: LIDOCAINE 5% PATCH 1 PATCH TOPICAL (19:53)
== END 2025-05-06 20:04 | disposition home or self-care (01) ==
PROVIDERS: Physician Assistant; Emergency Provider Student in an Organized Health Care Education/Training Program; PCP Family Medicine
DX: S22.32XA Fracture of one rib, left side, initial encounter for closed fracture (principal); S63.592A Other specified sprain of left wrist, initial encounter; S80.02XA Contusion of left knee, initial encounter; W18.30XA Fall on same level, unspecified, initial encounter; G20.A1 Parkinson's disease without dyskinesia, without mention of fluctuations; M25.562 Pain in left knee; M25.532 Pain in left wrist; R07.89 Other chest pain
CPT/HCPCS: 36415; 71260; 73110; 74177; 80048; 81001; 85025; 94667; 99285; Q9966